=== PATIENT | female | born 1955 | race Caucasian/White ===

== ENCOUNTER 2020-03-02 06:45 | Outpatient (NON) | payer OTHER, SELFPAY ==
[2020-03-02 23:36] LABS: SARS-CoV-2 RNA PCR Positive
== END 2020-03-02 06:46 ==
PROVIDERS: PCP Family Medicine; Visit Provider Physician Assistant
DX: R09.81 Nasal congestion (principal); R05 Cough; R51.9 Headache, unspecified; U07.1 COVID-19
CPT/HCPCS: 87635; C9803; U0003

== ENCOUNTER → 2020-06-11 00:35 | Outpatient (CLI) | payer MEDICARE, SELFPAY ==
[2020-06-11 19:08] LABS: SARS-CoV-2 RNA PCR Negative
== END ==
PROVIDERS: PCP Family Medicine; Visit Provider Internal Medicine Gastroenterology
DX: Z01.812 Encounter for preprocedural laboratory examination (principal); Z20.822 Contact with and (suspected) exposure to COVID-19
CPT/HCPCS: C9803; U0003; U0005

== ENCOUNTER 2020-06-14 01:00 | Day surgery (SDC) | payer MEDICARE, SELFPAY ==
[2020-05-17 15:50] VITALS: BMI 31.0
--- NOTE | 2020-06-04 15:17 | PC.NURSE ---
PT CALLED WITH NEW DATE AND TIMES FOR PROCEDURE AND COVID TESTING, NO CHANGES IN MEDICATIONS OR HEALTH HISTORY SINCE 05/17/2020
--- NOTE | 2020-06-13 13:27 | WPDANESEPPF ---
Anes - Initial Pre Proc Eval Procedure: Operation Date: 06/14/20 09:00 Proposed Procedures p Esophagogastroduodenoscopy - Rodney Kinsey MD Date/Time: 06/13/20 13:27 Surgeon: Rodney Kinsey MD Pre Op Diagnosis: dysphagia Patient Data Age: 65 Gender: F Height: 1.63 m Weight: 82 kg Allergies Allergy/AdvReac Type Severity Reaction Status Date / Time codeine AdvReac Severe Gastrointestinal Verified 06/14/20 07:48 Upset oxycodone AdvReac Severe Nausea and Verified 06/14/20 07:48 Vomiting Home Medications Medication Instructions Recorded Confirmed Type fluticasone propionate 50 1 spray NASAL DAILY 05/30/19 06/14/20 History mcg/actuation nasal spray,suspension loratadine 10 mg tablet 10 mg PO DAILY 05/30/19 06/14/20 History lisinopril 20 1 tablet PO DAILY #90 tablet 07/05/19 06/14/20 Rx mg-hydrochlorothiazide 12.5 mg tablet pantoprazole 40 mg tablet,delayed 40 mg PO BID #90 tablet 04/18/20 06/14/20 Rx release venlafaxine 75 mg capsule,extended 75 mg PO DAILY #90 cap 04/23/20 06/14/20 Rx release 24 hr All Day Calcium 1 tab-cap PO DAILY 05/17/20 06/14/20 History Vitamin D3 1 tab-cap PO DAILY 05/17/20 06/14/20 History ascorbic acid (vitamin C) 1 tablet PO DAILY 05/17/20 06/14/20 History trazodone 50 mg PO QPM PRN 05/17/20 06/14/20 History Patient hx anesthesia problems: none Family hx anesthesia problems: none [facility] Past Medical History Medical History (Updated 06/13/20 @ 13:28 by Ronaldo Nance MD) Esophageal reflux Essential (primary) hypertension Generalized anxiety disorder Hiatal hernia Obesity (BMI 30.0-34.9) Palpitations Torn meniscus Surgical History Surgical History H/O section History of hysterectomy Family History Family History Mother Diabetes mellitus Depression Hypertension Family history of rheumatoid arthritis Family history of cardiovascular disease Family history of chronic obstructive pulmonary disease Family history of congestive heart failure Father Hypertension Cerebrovascular accident Family history of lung cancer Family history of kidney disease Family history of chronic obstructive pulmonary disease, Onset Age: 50 Family history of malignant neoplasm of kidney Sibling Diabetes mellitus Hypertension Family history of elevated blood lipids Social History Social History (Reviewed 04/18/20 @ 13:37 by Ronda Fields [facility]) Smoking packs per day: 1 Smoking cigarettes per day: 20.0 Years smoked: 6 Smoking pack-years: 6.00 Smoking status: Former smoker Tobacco type: cigarettes Alcohol intake: current Drinks per week: 2 Substance use: never Living arrangements: with family Spiritual care concerns: No Anes - Eval Final PreProcedure Day of Procedure 06/13/20 13:27 Patient weight: obese Heart: regular rate and rhythm Lungs: clear to auscultation and normal air movement Airway: Mallampati scale class II Neurological: alert and oriented Last oral intake: >/= 8 hours ASA classification: III Emergent: no Anesthetic plan: proceed Anesthesia type and monitoring: general GIVS Informed Consent: The patient's anesthetic plan and its attendant risks and benefits were discussed with the patient/family/POA. Questions were solicited and answers provided to the satisfaction of the patient/family/POA.
[2020-06-14 07:50] VITALS: BP 114/69; PULSE 71; RESP 17; TEMP 36.7; O2SAT 97; BMI 31.8
[2020-06-14] MEDS: LACTATED RINGERS 1,000 ML 150 ML IV CONT (08:03)
--- NOTE | 2020-06-14 08:56 | PM.HPGS ---
History of Present Illness History of Present Illness Consent: Risks, benefits, and alternatives have been discussed and questions answered. Patient agrees to proceed with procedure. Chief complaint: dysphagia Narrative: Hailee Tanner is a 65 year old female referred because of persistent vomiting. She denies actual hang up of food on swallowing but often will vomit or regurgitate what she has eaten shortly after meal. This happens sporadically. She also has a constant burning in the epigastric area that radiates through to the back. Increasing pantoprazole to 80 mg a day has not helped. Every few days she will have an episode of severe pain in the lower substernal area. It will last an hour or 2 and is sometimes relieved by taking an extra dose of pantoprazole. There has been no weight loss. An EGD was done 2 years ago that appears to have been normal except for a hiatal hernia but she was also told that an ulcer was found. [facility] Past Medical History Medical History Esophageal reflux Essential (primary) hypertension Generalized anxiety disorder Hiatal hernia Obesity (BMI 30.0-34.9) Palpitations Torn meniscus Surgical History Surgical History H/O section History of hysterectomy Family History Family History Mother Diabetes mellitus Depression Hypertension Family history of rheumatoid arthritis Family history of cardiovascular disease Family history of chronic obstructive pulmonary disease Family history of congestive heart failure Father Hypertension Cerebrovascular accident Family history of lung cancer Family history of kidney disease Family history of chronic obstructive pulmonary disease, Onset Age: 50 Family history of malignant neoplasm of kidney Sibling Diabetes mellitus Hypertension Family history of elevated blood lipids Social History Social History Smoking packs per day: 1 Smoking cigarettes per day: 20.0 Years smoked: 6 Smoking pack-years: 6.00 Smoking status: Former smoker Tobacco type: cigarettes Alcohol intake: current Drinks per week: 2 Substance use: never Living arrangements: with family Spiritual care concerns: No Meds Home Medications and Allergies Home Medications Medication Instructions Recorded Confirmed Type fluticasone propionate 50 1 spray NASAL DAILY 05/30/19 06/14/20 History mcg/actuation nasal spray,suspension loratadine 10 mg tablet 10 mg PO DAILY 05/30/19 06/14/20 History lisinopril 20 1 tablet PO DAILY #90 tablet 07/05/19 06/14/20 Rx mg-hydrochlorothiazide 12.5 mg tablet pantoprazole 40 mg tablet,delayed 40 mg PO BID #90 tablet 04/18/20 06/14/20 Rx release venlafaxine 75 mg capsule,extended 75 mg PO DAILY #90 cap 04/23/20 06/14/20 Rx release 24 hr All Day Calcium 1 tab-cap PO DAILY 05/17/20 06/14/20 History Vitamin D3 1 tab-cap PO DAILY 05/17/20 06/14/20 History ascorbic acid (vitamin C) 1 tablet PO DAILY 05/17/20 06/14/20 History trazodone 50 mg PO QPM PRN 05/17/20 06/14/20 History Allergies Allergy/AdvReac Type Severity Reaction Status Date / Time codeine AdvReac Severe Gastrointestinal Verified 06/14/20 07:48 Upset oxycodone AdvReac Severe Nausea and Verified 06/14/20 07:48 Vomiting Vital Signs Vital Signs - 24 hr 06/14/20 07:50 Temperature 36.7 C Pulse Rate 71 Respiratory Rate 17 Blood Pressure 114/69 Pulse Oximetry 97 Exam Const: General: alert Orientation/consciousness: patient oriented x3 Resp: Auscultation: clear to auscultation bilaterally Cardio: Rhythm: regular rhythm GI: GI Palp: Yes Soft to palpation and No Tenderness to palpation present (GI) Neuro: General: patient oriented x3 Assessment and Plan Assessment and plan (1) [place]
[2020-06-14 09:18] VITALS: BP 95/54; PULSE 63; RESP 18; O2SAT 100
[2020-06-14 09:28] VITALS: BP 87/57; PULSE 65; RESP 19; O2SAT 100
[2020-06-14 09:38] VITALS: BP 111/68; PULSE 63; RESP 15; O2SAT 100
== END 2020-06-14 09:45 | disposition home or self-care (01) ==
PROVIDERS: PCP Family Medicine; Visit Provider Internal Medicine Gastroenterology
PROC: 0DJ08ZZ Inspection of Upper Intestinal Tract, Via Natural or Artificial Opening Endoscopic (ICD-10-PCS; CPT 43235; principal; 2020-06-14 09:00)
DX: R13.10 Dysphagia, unspecified (principal); K21.9 Gastro-esophageal reflux disease without esophagitis; R11.10 Vomiting, unspecified; K44.9 Diaphragmatic hernia without obstruction or gangrene; I10 Essential (primary) hypertension; F41.1 Generalized anxiety disorder; R00.2 Palpitations; Z87.891 Personal history of nicotine dependence; E66.01 Morbid (severe) obesity due to excess calories; Z68.31 Body mass index [BMI] 31.0-31.9, adult
CPT/HCPCS: 43239; 88305; J2001; J2704; J7120

== ENCOUNTER 2020-09-18 10:40 | Emergency (ER) | payer MEDICARE, SELFPAY ==
--- NOTE | ~2020-09-18 | XR_ITS ---
EXAMINATION: XR tibia fibula RT 2V DATE: 09/18/2020 11:09 INDICATION: Right lower leg injury. TECHNIQUE: 2 views of right tibia and fibula were obtained. COMPARISON: None. FINDINGS: Bone alignment is normal. No fracture. There is mild knee joint osteoarthritis. There is a small loose body in the knee joint. There are enthesophytes at the posterior and plantar aspects of c alcaneal tuberosity. There is soft tissue swelling anterior to the tibial diaphysis. IMPRESSION: 1. No fracture. 2. Mild right knee osteoarthritis with loose body. Reviewed, dictated and finalized at location A.
[2020-09-18 10:48] VITALS: BP 126/77; PULSE 72; RESP 20; TEMP 37.4; O2SAT 99
--- NOTE | 2020-09-18 11:00 | ED.LOWEXIN ---
HPI - Extremity Injury (Lower) General Chief Complaint: Extremity Injury, Lower Stated Complaint: Right Leg hit by a Baseball/Leg Swollen Time Seen by Provider: 09/18/20 11:00 Source: patient and RN notes reviewed History of Present Illness HPI Narrative: Patient is a 65-year-old female who presents the urgent care with complaints of right falk pain radiating up to the right knee. Patient states that she was hit by a foul ball on Wednesday and immediately had a large orange sized knot to the right falk. Patient states that the swelling has gone down some but now she has increased in bruising and pain. Patient also reports of a history of orthoscopic right knee surgery. Denies of any history of blood clot/DVT and has not taken any blood thinners in the past. Patient states that the pain is constant but does exacerbate with ambulation. States that she is been using ice and ibuprofen. Also reports of some calf tenderness. No other acute complaints. Denies of any shortness of breath or chest pain. No acute distress noted. Patient aware of the plan of care. Some parts of this dictation were generated by voice recognition software and may contain typographical and/or grammatical inaccuracies. Related Data Home Medications Medication Instructions Recorded Confirmed fluticasone propionate 50 1 spray NASAL DAILY 05/30/19 08/16/20 mcg/actuation nasal spray,suspension loratadine 10 mg tablet 10 mg PO DAILY 05/30/19 09/18/20 All Day Calcium 1 tab-cap PO DAILY 05/17/20 08/16/20 Vitamin D3 1 tab-cap PO DAILY 05/17/20 09/18/20 ascorbic acid (vitamin C) 1 tablet PO DAILY 05/17/20 09/18/20 Allergies Allergy/AdvReac Type Severity Reaction Status Date / Time codeine AdvReac Severe Gastrointestinal Verified 09/18/20 10:55 Upset oxycodone AdvReac Severe Nausea and Verified 09/18/20 10:55 Vomiting Review of Systems Review of Systems: Narrative: CONSTITUTIONAL: Denies fever, chills, or sweats. EYES: Denies visual changes, redness, or discharge. ENT: Denies rhinorrhea, congestion, sore throat, or otalgia. CARDIOVASCULAR: Denies chest pain, palpitations, or edema. RESPIRATORY: Denies cough or dyspnea. GASTROINTESTINAL: Denies abdominal pain, nausea, vomiting, or diarrhea. GENITOURINARY: Denies dysuria or hematuria. SKIN: Denies rash or itching. MUSCULOSKELETAL: Reports of right falk bruising and swelling radiating to the right knee and foot NEUROLOGIC: Denies headache, numbness, or weakness. All other systems reviewed are negative, except as documented in HPI. [facility] Past Medical History Medical History Esophageal reflux Essential (primary) hypertension Generalized anxiety disorder Hiatal hernia Obesity (BMI 30.0-34.9) Palpitations Torn meniscus Surgical History Surgical History H/O section History of hysterectomy Family History Family History Mother Diabetes mellitus Depression Hypertension Family history of rheumatoid arthritis Family history of cardiovascular disease Family history of chronic obstructive pulmonary disease Family history of congestive heart failure Father Hypertension Cerebrovascular accident Family history of lung cancer Family history of kidney disease Family history of chronic obstructive pulmonary disease, Onset Age: 50 Family history of malignant neoplasm of kidney Sibling Diabetes mellitus Hypertension Family history of elevated blood lipids Social History Social History Smoking packs per day: 1 Smoking cigarettes per day: 20.0 Years smoked: 6 Smoking pack-years: 6.00 Tobacco type: cigarettes Alcohol intake: current Drinks per week: 2 Substance use: never Spiritual care concerns: No Comments At the time of my si
--- NOTE | 2020-09-18 11:37 | PC.NURSE ---
PT DECLINED ICE FOR COMFORT
== END 2020-09-18 11:49 | disposition home or self-care (01) ==
PROVIDERS: Emergency Provider Nurse Practitioner Family; PCP Family Medicine
DX: S80.11XA Contusion of right lower leg, initial encounter (principal); I10 Essential (primary) hypertension; K21.9 Gastro-esophageal reflux disease without esophagitis; E66.9 Obesity, unspecified; Z68.32 Body mass index [BMI] 32.0-32.9, adult; F17.200 Nicotine dependence, unspecified, uncomplicated; M17.11 Unilateral primary osteoarthritis, right knee; W21.03XA Struck by baseball, initial encounter; Y93.82 Activity, spectator at an event
CPT/HCPCS: 73590; 99213; G0463

== ENCOUNTER 2020-09-26 16:10 | Emergency (ER) | payer MEDICARE, SELFPAY ==
--- NOTE | ~2020-09-26 | US_ITS ---
EXAMINATION: US venous doppler LE RT DATE: 09/26/2020 17:13 INDICATION: Right lower limb pain TECHNIQUE: Grayscale ultrasound images without and with compression and Doppler ultrasound images of the right lower extremity veins were obtained. COMPARISON: None. FINDINGS: The visualized portions of right common femoral vein, profunda (deep) femoral vein, femoral vein, pop liteal vein, peroneal trunk, posterior tibial veins, peroneal veins, gastrocnemius vein and greater s aphenous vein outflow are patent. IMPRESSION: 1. No deep venous thrombosis in the right lower limb. Reviewed, dictated and finalized at location A.
[2020-09-26 16:30] VITALS: BP 164/101; PULSE 60; RESP 18; TEMP 36.9; O2SAT 98
--- NOTE | 2020-09-26 18:21 | ED.GENADULT ---
HPI - General Adult General Chief complaint: Extremity Injury, Lower Stated complaint: leg pain x 2 days/injury 1 week ago/swelling Time Seen by Provider: 09/26/20 16:37 Source: patient and RN notes reviewed Mode of arrival: ambulatory Limitations: no limitations History of Present Illness HPI narrative: Patient 65-year-old female who presents with right lower extremity pain. Patient was hit with a baseball in the falk 2 weeks ago developed a large hematoma with bruising spreading down into the foot now as pain that is increased has concern for DVT has not been seen for this complaint presents per private vehicle in no distress pain is localized to the region around the hematoma Related Data Home Medications Medication Instructions Recorded Confirmed fluticasone propionate 50 1 spray NASAL DAILY 05/30/19 08/16/20 mcg/actuation nasal spray,suspension loratadine 10 mg tablet 10 mg PO DAILY 05/30/19 09/18/20 All Day Calcium 1 tab-cap PO DAILY 05/17/20 08/16/20 Vitamin D3 1 tab-cap PO DAILY 05/17/20 09/18/20 ascorbic acid (vitamin C) 1 tablet PO DAILY 05/17/20 09/18/20 Allergies Allergy/AdvReac Type Severity Reaction Status Date / Time codeine AdvReac Severe Gastrointestinal Verified 09/26/20 16:33 Upset oxycodone AdvReac Severe Nausea and Verified 09/26/20 16:33 Vomiting Review of Systems Review of Systems: All systems reviewed & are unremarkable except as noted in HPI and below PMFSH Past Medical History Medical History Esophageal reflux Essential (primary) hypertension Generalized anxiety disorder Hiatal hernia Obesity (BMI 30.0-34.9) Palpitations Torn meniscus Surgical History Surgical History H/O section History of hysterectomy Family History Family History Mother Diabetes mellitus Depression Hypertension Family history of rheumatoid arthritis Family history of cardiovascular disease Family history of chronic obstructive pulmonary disease Family history of congestive heart failure Father Hypertension Cerebrovascular accident Family history of lung cancer Family history of kidney disease Family history of chronic obstructive pulmonary disease, Onset Age: 50 Family history of malignant neoplasm of kidney Sibling Diabetes mellitus Hypertension Family history of elevated blood lipids Social History Social History Smoking packs per day: 1 Smoking cigarettes per day: 20.0 Years smoked: 6 Smoking pack-years: 6.00 Tobacco type: cigarettes Alcohol intake: current Drinks per week: 2 Substance use: never Spiritual care concerns: No Exam Narrative: Exam Narrative: GENERAL: Well-appearing, well-nourished, and in no acute distress. HEAD: Normocephalic, atraumatic. EYES: PERRLA and EOMI. ENT: Nares clear, no rhinorrhea or epistaxis. Mucous membranes moist. CHEST: Clear to auscultation. No respiratory distress. No wheezes rales or rhonchi HEART: Regular rate and rhythm. No murmur heard. Normal peripheral pulses. EXTREMITIES: Normal range of motion. No edema. Resolving hematoma to the distal right falk no erythema warmth to touch bruising standing down into the ankle and foot SKIN: Warm, dry, no rash. NEURO: No focal deficits. Alert and oriented x3. Neurovascularly intact. Capillary refill less than 2 seconds PSYCH: Normal mood and affect. Course Course Emergency Course: Patient in the room in no distress aware of case findings treatment plan and diagnosis agreeing to follow-up as instructed given reasons to return felt appropriate for outpatient reevaluation made aware of her ultrasound findings Vital Signs Vital signs: Vital Signs Temperature 98.4 F 09/26/20 16:30 Pulse Rate 60 09/26/20 16:30 Respiratory Rate
== END 2020-09-26 18:33 | disposition home or self-care (01) ==
PROVIDERS: Emergency Provider Emergency Medicine; PCP Family Medicine
DX: M79.661 Pain in right lower leg (principal); K21.9 Gastro-esophageal reflux disease without esophagitis; I10 Essential (primary) hypertension; F17.210 Nicotine dependence, cigarettes, uncomplicated
CPT/HCPCS: 93971; 99284

== ENCOUNTER → 2021-01-06 09:50 | Outpatient (CLI) | payer MEDICARE, SELFPAY ==
--- NOTE | ~2021-01-06 | MR_ITS ---
EXAMINATION: MR cervical spine wo con EXAM DATE: 01/06/2021 11:01 INDICATION: R51.9 - Headache, unspecified, cervical radiculopathy, right arm pain. TECHNIQUE: Multi-sequential, multiplanar MR images of the cervical spine were obtained without contra st. Axial T2, axial T2 MERGE sequence. Sagittal T1, T2, T2 fat saturation images also obtained. Th ere is no prior study for comparison. FINDINGS: Upper thoracic spine was also imaged on the axial sequences and there is a large disc bulg e posteriorly with extrusion centrally with migration above and below, which along with some ligament um flavum hypertrophy is causing central canal narrowing to 3 mm, moderate to severe stenosis. There is faint T2 increased signal intensity in this location, appearance more consistent with chronic myel omalacia than edema. There is moderate disc disease C4-5 and 5-6. There is a hemangioma within the T7 vertebral body. The vertebral bodies are aligned in the AP dimension. Cervicomedullary junction is normal in appearance. Paraspinal soft tissue is unremarkable. Level by level evaluation: C2-C3: Disc does not extend beyond the endplate margin. Uncovertebral joint arthropathy: Mild bilateral. Facet joint arthropathy: Moderate bilateral. Neural foraminal stenosis: Mild right. Central canal stenosis: No stenosis. C3-C4: There is a minimal diffuse disc bulge. Uncovertebral joint arthropathy: Mild bilateral. Facet joint arthropathy: Severe left, moderate right. Neural foraminal stenosis: Moderate left, mild to moderate right. Central canal stenosis: No stenosis. C4-C5: There is a moderate diffuse disc bulge which is asymmetric to the right and bulging into the n eural foramina. This is also indenting the right anterior aspect of the spinal cord without edema. Uncovertebral joint arthropathy: Severe right, moderate left. Facet joint arthropathy: Moderate to severe bilateral. Neural foraminal stenosis: Severe right, moderate left. Central canal stenosis: Moderate . Central canal measures 6 mm in mid sagittal AP diameter . C5-C6: There is mild to moderate disc bulge asymmetric to the left. Uncovertebral joint arthropathy: Moderate bilateral. Facet joint arthropathy: Moderate to severe left, moderate right. Neural foraminal stenosis: Moderate to severe left. Central canal stenosis: Mild to moderate . Central canal measures 7 mm in mid sagittal AP diameter . C6-C7: There is a mild diffuse disc bulge. Uncovertebral joint arthropathy: Moderate bilateral, left greater than right. Facet joint arthropathy: Mild to moderate bilateral. Neural foraminal stenosis: Mild left. Central canal stenosis: No stenosis. C7-T1: Disc does not extend beyond the endplate margin. Uncovertebral joint arthropathy: Moderate bilateral. Facet joint arthropathy: Mild bilateral. Neural foraminal stenosis: Mild left. Central canal stenosis: No stenosis. IMPRESSION: 1. 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 2. C4-5 and C5-6 asymmetric disc bulges also indenting spinal cord, without signal change. 3. Severe right C4-5 neural foraminal stenosis. 4. Consider neurosurgical consult. Reviewed, dictated and finalized at location A. IMPRESSION: 1. 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 2. C4-5 and C5-6 asymmetric disc bulges also indenting spinal cord, without si gnal change. 3. Severe right C4-5 neural foraminal stenosis. 4. Consider neurosurgical consult.
--- NOTE | ~2021-01-06 | MR_ITS ---
EXAMINATION: MR brain/brain stem wo/w con EXAM DATE: 01/06/2021 11:01 INDICATION: R51.9 - Headache, unspecified headache . TECHNIQUE: Magnetic resonance imaging (MRI) of the brain/brain stem obtained without contrast. Sagit joel T1, axial diffusion, gradient echo (T2*), T1, T2, FLAIR sequences obtained. Patient was then inj ected with 15 cc intravenous Multihance contrast. Axial and coronal postcontrast T1 weighted sequence s obtained. Comparison is made to prior examination from 05/31/2017. FINDINGS: There are no areas of restricted diffusion to suggest acute infarction. There is no acute hemorrhage seen on the T2*, a hemosiderin sensitive sequence. No intraparenchymal brain mass lesion. There is minimal periventricular and subcortical T2/FLAIR signal hyperintensity, nonspecific but pro bably related to small vessel ischemic disease (microangiopathy). There are no extra-axial collecti ons. Flow voids are seen in the cerebral arteries on the T2-weighted sequences consistent with their expected patency. The orbits are unremarkable. Soft tissue is unremarkable. There are no areas of abnormal enhancement on the postcontrast images. Mild bilateral maxillary and ethmoid sinus mucoperi osteal thickening. No sinus air-fluid levels. IMPRESSION: 1. No acute intracranial findings. 2. Minimal microangiopathy. Reviewed, dictated and finalized at location A.
[2021-01-06 10:15] LABS: Estimated Glomerular Filt Rate 56
== END ==
PROVIDERS: Visit Provider Physician Assistant
DX: R51.9 Headache, unspecified (principal); M54.12 Radiculopathy, cervical region; M48.04 Spinal stenosis, thoracic region; M50.222 Other cervical disc displacement at C5-C6 level; M48.02 Spinal stenosis, cervical region
CPT/HCPCS: 70553; 72141; A9577

== ENCOUNTER → 2021-03-08 00:12 | Outpatient (CLI) | payer MEDICARE, SELFPAY ==
[2021-03-08 19:57] LABS: SARS-CoV-2 RNA PCR Negative
== END ==
PROVIDERS: PCP Family Medicine; Visit Provider Physician Assistant
DX: Z01.812 Encounter for preprocedural laboratory examination (principal); Z20.822 Contact with and (suspected) exposure to COVID-19
CPT/HCPCS: C9803; U0003; U0005

== ENCOUNTER 2021-09-10 10:20 | Inpatient (IN) | payer MEDICARE, SELFPAY ==
[2021-09-10] VITALS (19 sets, daily range): BP systolic 101–140; BP diastolic 61–83; PULSE 71–87; RESP 14–22; TEMP 36.1–36.7; O2SAT 98–100; BMI 33.1
--- NOTE | ~2021-09-10 | XR_ITS ---
XR chest 1V portable DATE: 09/10/2021 11:17 INDICATION: Dizziness. Fainting today. Syncope. TECHNIQUE: Portable upright AP views on 09/10/2021 at 1104 and 1105 hours COMPARISON: 11/15/2017 PA and lateral chest FINDINGS: Status post anterior lower cervical spine surgical fusion. Heart size is within normal limits. No hilar or mediastinal enlargement. No pulmonary infiltrate or c onsolidation, pleural effusion or pulmonary vascular congestion or pneumothorax. IMPRESSION: No active cardiopulmonary disease Reviewed, dictated and finalized at location A.
--- NOTE | ~2021-09-10 | CT_ITS ---
EXAMINATION: CT abdomen pelvis wo/w con DATE: 09/11/2021 09:45 INDICATION: Right hydronephrosis. Right flank pain. TECHNIQUE: Computed tomography (CT) of the abdomen and pelvis was performed without and with 130 cc O mnipaque 300 intravenous contrast. The dose-length product was 1660.62 mGy-cm. Automated exposure con trol and iterative reconstruction technique were employed. COMPARISON: CT dated 09/10/2021 FINDINGS: There is dependent atelectasis. No significant pleural or pericardial effusion. The liver, spleen, pancreas, adrenal glands are unremarkable. There are bilateral renal cysts. No solid enhancin g renal mass identified. Ureters are normal in course and caliber. No significant hydronephrosis. No stones or masses. Bladder is unremarkable. Normal appendix. Mild osteoarthritis of the hips. There is moderate-severe lumbar spondylosis with retrolisthesis at L 1-2 and L3-4. No significant vascular abnormality. No lymphadenopathy. IMPRESSION: 1. Subcentimeter bilateral renal cysts. No significant hydronephrosis. Reviewed, dictated and finalized at location A.
--- NOTE | ~2021-09-10 | CT_ITS ---
EXAMINATION: CT abdomen pelvis wo con DATE: 09/10/2021 13:30 INDICATION: Abdominal pain. Weakness. TECHNIQUE: Computed tomography (CT) of the abdomen and pelvis was performed without intravenous contr ast. Automated exposure control and iterative reconstruction technique were employed. The dose-length product was 976.13 mGy-cm. COMPARISON: None FINDINGS: Atelectasis/scarring at the bilateral lower lungs. Heart size is normal. No pericardial or pleural ef fusion. Liver, gallbladder, spleen, pancreas, bilateral adrenal glands and left kidney are normal. Mi ld right hydroureteronephrosis which extends to the ureterovesicular junction without evident obstruc ting stone or mass. Bladder is normal. The uterus is not identified and has likely been surgically re sected. Calcified appendicoliths within the normal-appearing appendix with no periappendiceal inflamm atory stranding to suggest acute appendicitis. Large amount of stool scattered throughout the colon. Small bowel is normal. No free intraperitoneal gas or fluid. No pathologically enlarged abdominal or pelvic lymphadenopathy. Moderate to severe lumbar and lower thoracic spondylosis. Moderate bilateral hip osteoarthritis. IMPRESSION: 1. Mild right hydroureteronephrosis extending to the ureterovesicular junction without evident obstru cting stone or mass. Correlate with urinalysis and could consider follow-up CT urogram for further ev aluation. Reviewed, dictated and finalized at location B. IMPRESSION: 1. Mild right hydroureteronephrosis extending to the ureterovesicular junction without evident obstructing stone or mass. Correlate with urinalysis and could consider follow-up CT urogram for further evaluation.
--- NOTE | ~2021-09-10 | MR_ITS ---
EXAMINATION: MR brain/brain stem wo con DATE: 09/11/2021 16:11 INDICATION: Syncope. TECHNIQUE: Magnetic resonance imaging (MRI) of the brain and brainstem was performed without intraven ous contrast. COMPARISON: Brain MRI 01/06/2021, head CT 09/10/2021 FINDINGS: There are scattered areas of nonspecific increased T2-weighted signal intensity in the cere bral white matter, which is within normal limits for the patient's age. There is no intracranial hemo rrhage, acute infarction, or abnormal intracranial mass lesion. The ventricles are normal in size. Th ere is mucosal thickening in the paranasal sinuses. The orbits are normal. The mastoid air cells are normal. IMPRESSION: 1. Normal aging brain. Reviewed, dictated and finalized at location A. IMPRESSION: 1. Normal aging brain.
--- NOTE | ~2021-09-10 | CT_ITS ---
EXAMINATION: CT brain wo con DATE: 09/10/2021 11:12 INDICATION: Syncopal episode. Weakness. TECHNIQUE: Computed tomography (CT) of the head was performed without intravenous contrast. The mA wa s adjusted according to patient size. Iterative reconstruction technique was employed. Exam dose: 60 5.33 mGy-cm total exam DLP. COMPARISON: 01/06/2021 MRI brain/brainstem FINDINGS: No intracranial mass lesion or hemorrhage or cerebrovascular accident. No midline shift or mass effect effect. Normal ventricular size. No subdural or epidural hematoma. Orbital contents are unremarkable. Prominent polypoid soft tissue opacities of the maxillary sinuses, right greater than left the parana gustabo sinuses and mastoid air cells are otherwise unremarkable. No fracture or bone destruction of the cranial vault. IMPRESSION: No significant intracranial abnormality Bilateral maxillary sinus polyps or mucous retention cysts Reviewed, dictated and finalized at Location A. Reviewed, dictated and finalized at location A.
--- NOTE | ~2021-09-10 | US_ITS ---
EXAMINATION: US carotid duplex BI DATE: 09/11/2021 12:12 INDICATION: Syncope TECHNIQUE: Grayscale, color Doppler, and pulsed Doppler images of the cervical carotid arteries were obtained. The degree of vessel stenosis is placed in one of the following categories: normal, <50%, 5 0-69%, >=70% but less than near-occlusion, near-occlusion, or total occlusion. Note that percent sten osis relative to normal distal artery lumen diameter is indirectly measured from velocity measurement s as described by Auugsto, et al. Radiology 2003; 229:340-346. Notes: Normal: Peak systolic velocity <125 centimeters/sec and no plaque <50%. Peak systolic velocity <125 ( EDV <40; ICA/CCA PSV ratio <2.0; used these factors only a tandem lesions or low cardiac output or co ntralateral disease) 50-69 %: PSV 125-230 (EDV 40-100; ratio 2-4) >= 70% but less than near occlusion: PSV greater than 230 (EDV > 100; ratio> 4.0) Near Occlusion: PSV that is variable; markedly narrowed lumen Occlusion: Absent flow on color/spectral Doppler and no lumen on salguero scale. COMPARISON: None. FINDINGS: RIGHT: The right common carotid artery (CCA) peak systolic velocity (PSV) is 69 cm/s. The right internal car otid artery (ICA) PSV is 62 cm/s. The right ICA end-diastolic velocity (EDV) is 22 cm/s. The right IC A/CCA PSV ratio is 0.9. The external carotid artery (ECA) PSV is 77 cm/s. There is antegrade flow in the right vertebral artery. LEFT: The left CCA PSV is 78 cm/s. The left ICA PSV is 92 cm/s. The left ICA EDV is 39 cm/s. The left ICA/C CA PSV ratio is 1.2. The ECA PSV is 79 cm/s. There is antegrade flow in the left vertebral artery. IMPRESSION: 1. Less than 50% stenosis in the right internal carotid artery by sonographic criteria. 2. Less than 50% stenosis in the left internal carotid artery by sonographic criteria. Reviewed, dictated and finalized at location A. IMPRESSION: 1. Less than 50% stenosis in the right internal carotid artery by sonographic christopher marshall. 2. Less than 50% stenosis in the left internal carotid artery by sonographic jessica wang.
--- NOTE | 2021-09-10 10:24 | ECG_ITS ---
Measurements Intervals [place] Rate: 81 P: 21 CT: 171 QRS: -12 QRSD: 92 T: -3 QT: 402 QTc: 469 Interpretive Statements SINUS RHYTHM WITH FREQUENT VENTRICULAR PREMATURE COMPLEXES POSSIBLE LEFT ATRIAL ENLARGEMENT [-0.1mV P WAVE IN V1/V2] LOW QRS VOLTAGE IN PRECORDIAL LEADS [QRS DEFLECTION < 1.0 mV IN CHEST LEADS] POSSIBLE LEFT VENTRICULAR HYPERTROPHY [VOLTAGE CRITERIA PLUS LAE OR QRS WIDENING] BORDERLINE ECG COMPARED TO ECG 11/22/2018 13:02:26 PREMATURE VENTRICULAR CONTRACTIONS ARE NOW PRESENT Electronically Signed On 09-10-2021 11:43:37 CDT by Gorge Hobbs M.D.
[2021-09-10 10:52] LABS: Hematocrit 38.9 % (37.0-47.0); Hemoglobin 12.6 g/dL (12.0-15.0); Immature Granulocyte Absolute 0.02 K/mm3 (0.00-0.031); Immature Granulocyte Percent A 0.4 % (0-0.5); Lymphocytes Absolute Auto 1.34 K/mm3 (0.9-3.2); Lymphocytes Percent Auto 28.8 % (18.3-44.2); Mean Corpuscular HGB Conc 32.4 g/dl (32-36); Mean Corpuscular Hemoglobin 29.3 pg (26-34); Mean Corpuscular Volume 90.5 fl (80-100); Mean Platelet Volume 10.2 fl (7.4-10.4); Monocytes Absolute Auto 0.4 K/mm3 (0.1-0.6); Monocytes Percent Auto 9.4 % (2.6-8.5); Neutrophils Absolute Auto 2.9 K/mm3 (1.3-6.7); Neutrophils Percent Auto 61.4 % (45.5-73.1); Platelet Count Result 187 k/mm3 (150-375); Red Cell Distribution Width 13.5 % (11.5-14.5); White Blood Count 4.7 K/mm3 (4.5-10.0)
[2021-09-10 11:11] LABS: Alanine Aminotransferase 18 U/L (6-35); Albumin Level 3.8 g/dL (3.5-5.1); Alkaline Phosphatase 98 U/L (38-126); Anion Gap 6 mmol/L (8-16); Aspartate Amino Transferase 26 U/L (14-36); Bilirubin,Total 0.6 mg/dL (0.2-1.3); Blood Urea Nitrogen 22 mg/dL (7-17); Calcium 8.9 mg/dL (8.4-10.2); Carbon Dioxide 27 mmol/L (22-30); Chloride 104 mmol/L (98-107); Estimated CRCL calculation 46 ml/min; Estimated Glomerular Filt Rate 50; Glucose 89 mg/dL (65-110); Potassium 3.8 mmol/L (3.4-5.0); Sodium 137 mmol/L (137-145)
[2021-09-10] MEDS: SODIUM CHLORIDE 0.9% IV 1,000 ML 999 ML IV CONT ×2 (11:20→12:54)
[2021-09-10 12:27] LABS: Add Urine Microscopic? NO; Appearance Urine Clear (Clear); Bilirubin Urine Negative (Negative); Blood Urine Negative (Negative); Color Urine Yellow (Yellow); Glucose Urine UA Negative (Negative); Ketones Urine Negative (Negative); Leukocyte Esterase Ur Negative LEU/UL (Negative); Nitrate Urine Negative (Negative); Protein Urine Negative (Negative); Urobilinogen Urine 0.2 mg/dL (<2.0); pH Urine 6.5 (5.0-9.0)
[2021-09-10 13:58] LABS: Troponin I < 0.012 ng/mL (0.000-0.034)
--- NOTE | 2021-09-10 14:36 | ED.GENADULT ---
HPI - General Adult General Chief complaint: Syncope Stated complaint: syncopal episode Time Seen by Provider: 09/10/21 10:50 Source: RN notes reviewed History of Present Illness HPI narrative: Patient presents emergency room from home for syncopal episode. Patient states has been feeling generally weak for the past 1 week. States that she has not been eating and drinking as well has been feeling generally more so fatigued she states she has chronic weakness in her bilateral lower legs from previous spinal cord injury. Patient states that this morning she was walking across floor and she had a syncopal episode. She states she is unsure how long she was out she denies having chest pain or shortness of breath prior to the episode. She denies any fevers or chills. She states that she has been having some intermittent abdominal pain described as cramping and has been feeling constipated Related Data Home Medications Medication Instructions Recorded Confirmed baclofen 10 mg tablet 10 mg PO TID 06/26/21 08/29/21 Allergies Allergy/AdvReac Type Severity Reaction Status Date / Time codeine AdvReac Severe Gastrointestinal Verified 12/19/20 13:38 Upset oxycodone AdvReac Severe Nausea and Verified 12/19/20 13:38 Vomiting Review of Systems Review of Systems: Gen.: Denies fevers or chills Eyes: Denies eye pain or visual change ENT: Denies congestion Respiratory: Denies shortness of breath or cough CV: Denies chest pain or palpitations reports syncope GI: Reports some generalized abdominal pain denies nausea vomiting or diarrhea denies burning, urgency, frequency or hematuria Musculoskeletal: Denies back pain or muscle pain Neuro: Denies numbness, tingling, weakness or focal weakness Skin: Denies rash Except as documented, all other systems reviewed and negative [facility] Past Medical History Medical History Esophageal reflux Essential (primary) hypertension Generalized anxiety disorder Hiatal hernia Obesity (BMI 30.0-34.9) Palpitations Torn meniscus Surgical History Surgical History H/O section History of hysterectomy Family History Family History Mother Diabetes mellitus Depression Hypertension Family history of rheumatoid arthritis Family history of cardiovascular disease Family history of chronic obstructive pulmonary disease Family history of congestive heart failure Father Hypertension Cerebrovascular accident Family history of lung cancer Family history of kidney disease Family history of chronic obstructive pulmonary disease, Onset Age: 50 Family history of malignant neoplasm of kidney Sibling Diabetes mellitus Hypertension Family history of elevated blood lipids Social History Social History Smoking packs per day: 1 Smoking cigarettes per day: 20.0 Years smoked: 6 Smoking pack-years: 6.00 Smoking status: Never smoker Tobacco type: cigarettes Alcohol intake: current Drinks per week: 2 Alcohol use details: beer Substance use: never Spiritual care concerns: No Exam Narrative: APPEARANCE: No acute distress, nontoxic, resting in bed EYES: EOMI HEENT: Normocephalic, atraumatic, OMM RESPIRATORY: No respiratory distress Clear to auscultation bilaterally with no rhonchi wheezing or rales. CARDIOVASCULAR: Regular rate and rhythm without murmur Abdomen: Soft nondistended diffusely tender palpation no rebound or guarding MUSCULOSKELETAl: Moves all extremities. No clubbing, cyanosis or edema. NEURO: Awake and alert. Following commands, speech normal, muscle strength 5 out of 5 in bilateral upper extremities and 4-5 in bilateral lower extremities SKIN:: Warm, dry. No rashes lesions or abrasions PSYCHIATRIC: Normal affect/mood, Co
[2021-09-10 14:42] LABS: INR 1.1; Prothrombin Time 13.6 Seconds (11.1-14.7)
[2021-09-10 14:43] LABS: Partial Thromboplastin Time 28.4 SECONDS (22.3-36.8)
--- NOTE | 2021-09-10 15:34 | PC.NURSE ---
called lab and spoke with rBet to add on/check on the MG -NC [id number]
[2021-09-10 16:01] LABS: Magnesium 2.4 mg/dL (1.6-2.3)
--- NOTE | 2021-09-10 17:00 | PM.IMHP ---
H&P: HPI History of Present Illness Date/Time: 09/10/21 17:00 Chief Complaint: Syncopal episode. Narrative: This is a pleasant 66-year-old female with history of incomplete spinal cord injury, hypertension, GERD, peptic ulcer disease, and anxiety who presented to the emergency department from home for evaluation after a syncopal episode. She had a 2 level anterior cervical diskectomy and fusion and posterior thoracic T2-3 laminectomy and diskectomy in March 2021. 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 She has done extensive rehab and she is now back living in her own home, ambulating with a walker. The past 5 days or so she thought she was coming down with a virus as she has been fatigued and chilled with generalized malaise. Her appetite has not been great and she has not been eating and drinking much. Her lower extremities also seemed to be weaker than usual as well. Intermittently she will have mild cramping in the lower abdominal area though at time she has spasms and neuropathy like pain in her trunk and thus she has a hard time telling if this is new or an ongoing issue. She does feel like she may be constipated though she uses enemas almost daily to have a bowel movement since her spinal cord injury. With further questioning she also mentions difficulties urinating though she does not have any problems with urinary retention to her knowledge. The last 2 evenings she has been symptomatic with high blood pressures, reporting diastolic readings as high as 120. This is unusual for her and she had previously been on fludrocortisone for hypotensive episodes while in rehab. This morning she got up to use the restroom and she was perhaps 3 steps away from the bed and the next thing she knew she was waking up on her back on the floor. She denies antecedent symptoms prior to the syncopal episode and she denies sustaining injury in the fall. She had positive orthostatic vital signs in the emergency department and she is being admitted in this setting. Currently she has no complaints and she specifically denies vertigo, chest pain, pleuritic pain, and palpitations. Review of Systems Review of Systems: 12 systems were reviewed. History of cluster headaches. No sick contacts. No sinus congestion or sore throat. She denies diarrhea. No dysuria. She does report issues with urinating, reporting that it takes her quite some time to start urinating and she has to concentrate really hard in order to urinate. No fever. No vomiting. Except as documented, all other systems were reviewed and are negative. [facility] Past Medical History Medical History (Updated 09/10/21 @ 20:02 by Darcy Clement PA-C) Brown-Sequard syndrome Chronic kidney disease, stage 3 Essential hypertension Gastroesophageal reflux disease Generalized anxiety disorder Hiatal hernia Incomplete cord syndrome of thoracic spinal cord Peptic ulcer Vitamin D deficiency, unspecified Surgical History Surgical History (Updated 09/10/21 @ 16:42 by Darcy Clement PA-C) History of 2 sections History of arthroscopy of right knee History of hysterectomy Meniscal repair. History of spinal surgery (03/13/21) Anterior C4-C5 and C5-C6 decompression with diskectomy and removal of osteophyte. Anterior C4-C5 C6 fusion with cadaver spacers. T2-T3 laminectomy. Family History Family History Mother Diabetes mellitus Depression Hypertension Family history of rheumatoid arthritis Family history of cardiovascular disease Family history of chronic obstructive pulmonary disease Family history of congestive heart failure Father Hypertension Cerebrovascular accident Family history of lung cancer Family history of kidney disease Family history of chronic obstructive pulmonary
--- NOTE | 2021-09-10 17:15 | ADMGEN ---
This patient, Hailee Tanner, was admitted to [address] [facility] Surg Room 309-01 at 1710. Patient/family oriented to hospital policies and general routines including ID bracelet, bed and alarms, visiting hours, pain management, procedures, bathroom and other care routines, personal items, smoking policy, room service/diet, and visiting hours. Information on how to activate the Rapid Response Team has been discussed. Patient/Family are encouraged to report perceived risks to care and to ask questions if they do not understand what they are told or what they should do.
[2021-09-10] MEDS: SODIUM CHLORIDE 0.9% IV 1,000 ML 80 ML IV CONT (17:30)
[2021-09-10 18:19] LABS: Troponin I < 0.012 ng/mL (0.000-0.034)
[2021-09-10 21:33] LABS: Troponin I < 0.012 ng/mL (0.000-0.034)
[2021-09-10] MEDS: traZODone HCL 50 MG TABLET PO (23:05)
[2021-09-10] MEDS: GABAPENTIN 100 MG CAPSULE 200 MG PO (23:05)
[2021-09-10] MEDS: BACLOFEN 10 MG TABLET PO (23:05)
[2021-09-11] VITALS (10 sets, daily range): BP systolic 79–126; BP diastolic 40–69; PULSE 60–94; RESP 16–18; TEMP 36.3–36.6; O2SAT 94–99
[2021-09-11] MEDS: SODIUM CHLORIDE 0.9% IV 1,000 ML 80 ML IV CONT ×2 (05:37→20:28)
[2021-09-11 06:44] LABS: Hematocrit 35.9 % (37.0-47.0); Hemoglobin 11.6 g/dL (12.0-15.0); Immature Granulocyte Absolute 0.01 K/mm3 (0.00-0.031); Immature Granulocyte Percent A 0.3 % (0-0.5); Lymphocytes Absolute Auto 1.32 K/mm3 (0.9-3.2); Lymphocytes Percent Auto 37.9 % (18.3-44.2); Mean Corpuscular HGB Conc 32.3 g/dl (32-36); Mean Corpuscular Hemoglobin 29.4 pg (26-34); Mean Corpuscular Volume 91.1 fl (80-100); Mean Platelet Volume 10.4 fl (7.4-10.4); Monocytes Absolute Auto 0.3 K/mm3 (0.1-0.6); Monocytes Percent Auto 9.2 % (2.6-8.5); Neutrophils Absolute Auto 1.8 K/mm3 (1.3-6.7); Neutrophils Percent Auto 52.6 % (45.5-73.1); Platelet Count Result 153 k/mm3 (150-375); Red Blood Count 3.94 M/mm3 (4.2-5.4); Red Cell Distribution Width 13.2 % (11.5-14.5); White Blood Count 3.5 K/mm3 (4.5-10.0)
--- NOTE | 2021-09-11 07:20 | WPDURCON ---
Assessment and Plan Assessment and plan (1) Hydroureteronephrosis: Code(s): N13.30 - Unspecified hydronephrosis Status: Acute Assessment and Plan: Very scant right ureterectasis without david hydronephrosis. There is no identifying obstructing stone or ureteral mucosal thickening to explain the scant ureterectasis. I wonder if she possibly recently passed ureteral calculus. Will get a CT urogram for further evaluation. Urology Consult Note HPI Date Seen: 09/11/21 Requesting Physician: Debra Bravo MD Primary Care Provider: Huang Alonso MD Consult Narrative Narrative: Hailee Tanner is a 66 year old female with a very complicated neurological/ neural surgical his history following a cervical spinal cord neurological procedure March 2022 that left her with a partial paralysis. She is admitted here with a syncopal episode. It has been noted that her ongoing thoracic and abdominal spasms may be extending longer than expected following her procedure in March, prompting a CT scan of the abdomen and pelvis. This reveals very scant ureterectasis with mild dilatation of the right ureter at the ureterovesical junction. There is no identifiable stone or thickening of the ureteral mucosa on this unenhanced CT scan. She has no prior history of urolithiasis or other significant urological problems. She has no sensation of abdominal or flank pain but reports she has diminished sensation over her trunk. She has had no hematuria or problems with recurrent urinary tract infections. 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 History of spinal surgery (03/13/21) Anterior C4-C5 and C5-C6 decompression with diskectomy and removal of osteophyte. Anterior C4-C5 C6 fusion with cadaver spacers. T2-T3 laminectomy. Family History Family History Mother Diabetes mellitus Depression Hypertension Family history of rheumatoid arthritis Family history of cardiovascular disease Family history of chronic obstructive pulmonary disease Family history of congestive heart failure Father Hypertension Cerebrovascular accident Family history of lung cancer Family history of kidney disease Family history of chronic obstructive pulmonary disease, Onset Age: 50 Family history of malignant neoplasm of kidney Sibling Diabetes mellitus Hypertension Family history of elevated blood lipids Social History Social History Social History: Surrogate decision maker: Brenda Escalona, daughter. Code status: Full code. 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
[2021-09-11 07:33] LABS: Anion Gap 3 mmol/L (8-16); Blood Urea Nitrogen 14 mg/dL (7-17); Calcium 8.1 mg/dL (8.4-10.2); Carbon Dioxide 25 mmol/L (22-30); Chloride 111 mmol/L (98-107); Estimated CRCL calculation 56 ml/min; Estimated Glomerular Filt Rate > 60; Glucose 89 mg/dL (65-110); Magnesium 2.2 mg/dL (1.6-2.3); Potassium 3.8 mmol/L (3.4-5.0); Sodium 139 mmol/L (137-145)
[2021-09-11] MEDS: GABAPENTIN 100 MG CAPSULE 200 MG PO ×3 (09:04→17:21)
[2021-09-11] MEDS: BACLOFEN 10 MG TABLET PO ×3 (09:04→17:21)
[2021-09-11] MEDS: PANTOPRAZOLE 40 MG TABLET PO (09:04)
--- NOTE | 2021-09-11 09:10 | PC.NURSE ---
to CT scan
--- NOTE | 2021-09-11 14:22 | PM.IMPN ---
Progress Note: A&P Assessment and Plan (1) Syncope: Code(s): R55 - Syncope and collapse Status: Acute Assessment and Plan: -suspect this is related to her orthostatic hypotension which has been an ongoing issue since her spinal cord injury -Monitor on telemetry to rule out cardiac dysrhythmia, may need a holter monitor on discharge with hx of palpitations. Consider cardiology consult. -Echo w/ normal systolic function 55-60%, grade I diastolic dysfunction -Carotid doppler bilateral negative -CT head no acute findings -check MRI brain (2) Orthostatic hypotension: Code(s): I95.1 - Orthostatic hypotension Status: Acute Assessment and Plan: -Likely related to autonomic dysfunction from her spinal cord injury. -Discussed dangling at the side of the bed before standing. -Monitor orthostatic vital signs; consider Aroldo hose or abdominal binder. -Previously on fludrocortisone which was discontinued due to supine hypertension. (3) Chronic kidney disease, stage 3: Code(s): N18.30 - Chronic kidney disease, stage 3 unspecified Status: Acute Assessment and Plan: -Creatinine is stable on review of previous labs. (4) Hydroureteronephrosis: Code(s): N13.30 - Unspecified hydronephrosis Status: Acute Assessment and Plan: -CT shows mild right hydroureteronephrosis extending to the UV junction without evident stone or mass. -Urology consulted, CT urogram pending Subjective Date/time seen: 09/11/21 14:22 Interval history: 66-year-old female with history of incomplete spinal cord injury, hypertension, GERD, peptic ulcer disease, and anxiety, admitted after a syncopal episode. Pt is feeling tired today. She has not had any further syncopal episodes. She reports intermittent fluttering in her chest while at rest and chest heaviness with ambulation. She states this has been going on for approximately 1 week. She denies N/V/abd pain. No LE edema. Review of Systems Review of Systems: All systems reviewed & are unremarkable except as noted in HPI and below Exam Narrative: General: well-developed female supine in bed. Weight: 84.9 kg. BMI: 33.2. HEENT: Normocephalic, atraumatic. PERRL, EOMI. Sclerae anicteric. Oral mucosa moist. Neck: Supple. Respiratory: Lungs are clear to auscultation bilaterally. Cardiovascular: Regular rate and rhythm with S1-S2. Gastrointestinal: Soft, non tender, non distended, no rebound or guarding Skin: Warm and dry. No rash or lesions on limited exam. Extremities: No cyanosis, clubbing, or edema. Radial and pedal pulses intact. Neurological: Alert. Cranial nerves 2-12 are grossly intact. Lower extremity weakness, left greater than right. Psychiatric: Pleasant and cooperative with normal mood and affect. Judgment and insight intact. Objective Data Vital Signs Vital Signs: Vital Signs - 24 hr 09/10/21 17:39 09/10/21 20:00 09/10/21 21:37 Temperature 97.0 F L Pulse Rate 79 Respiratory Rate 18 Blood Pressure 112/75 Pulse Oximetry 99 100 Oxygen Delivery Room Air Room Air 09/10/21 20:00 09/11/21 00:00 09/11/21 03:16 Temperature 97.6 F Pulse Rate 85 79 76 Respiratory Rate 16 Blood Pressure 126/54 L Pulse Oximetry 99 Oxygen Delivery 09/11/21 04:00 09/11/21 08:00 09/11/21 11:41 Temperature Pulse Rate 74 70 Respiratory Rate Blood Pressure Pulse Oximetry Oxygen Delivery Room Air 09/11/21 12:00 Temperature Pulse Rate 60 Respiratory Rate Blood Pressure Pulse Oximetry Oxygen Delivery Intake/Output Intake/Output: Intake & Output 09/08/21 09/09/21 09/10/21 09/11/21 23:59 23:59 23:59 23:59 Intake Total 19990 Output Total 450 500 Balance 1550 1310 Meds/Results Medications: Active Medications Generic Name Dose Route Start Last Admin Trade Name Freq PRN Reason Stop Dose Admin Baclofen 10 mg
--- NOTE | 2021-09-11 15:34 | PC.NURSE ---
to mri per w/c
--- NOTE | 2021-09-11 20:07 | ECHO_ITS ---
Patient Info Name: Hailee Tanner Age: 66 years : 1955 Gender: Female Ht: 63 in Wt: 187 lbs BSA: 1.98 m2 HR: 71 bpm BP: 126 / 54 mmHg Technical Quality: Good Exam Date: 09/11/2021 11:18 AM Exam Location: [facility]monary Patient Status: Outpatient Admit Date: 09/10/2021 Staff Ordering Physician: Darcy Clement PA-C Grinder Set Up Operator Gear Tool: Jerry Cabrera RDCS, RT Attending Provider: Debra Bravo MD Referring Physician: Racquel SHERMAN; Exam Type: CA echo doppler color flow Study Info Indications I10 - Essential (primary) hypertension R55 - Syncope and collapse Complete two-dimensional, color flow and Doppler transthoracic echocardiogram is performed. Summary 1. Complete two-dimensional, color flow and Doppler transthoracic echocardiogram is performed. 2. Left ventricular chamber dimension is normal. 3. Left ventricular systolic function is normal, estimated at 55-60%. 4. The left ventricular diastolic function is grade I diastolic dysfunction. 5. E/e' 11 is mildly elevated. 6. There is mild mitral valve regurgitation. 7. No pulmonary hypertension, estimated pulmonary arterial systolic pressure is 33 mmHg. Left Ventricle E/e' 11 is mildly elevated. Left ventricular chamber dimension is normal. Left ventricular systolic function is normal, estimated at 55-60%. The left ventricular diastolic function is grade I diastolic dysfunction. Right Ventricle Right ventricular systolic function is normal and with normal TAPSE 2.3 cm. Right ventricular chamber dimension is normal. Left Atria Left atrial chamber dimension is normal. Right Atria Right atrial chamber dimension is normal. Aortic Valve The aortic valve is trileaflet. There is no aortic valve stenosis. There is no aortic valve regurgitation. Pulmonic Valve There is no pulmonic regurgitation. Mitral Valve There is no mitral valve stenosis. There is mild mitral valve regurgitation. Tricuspid Valve There is no tricuspid valve regurgitation. No pulmonary hypertension, estimated pulmonary arterial systolic pressure is 33 mmHg. Pericardium/Pleural There is no pericardial effusion. Inferior Vena Cava Normal inferior vena cava with >50% collapse upon inspiration consistent with normal right atrial pressure, 5 mmHg. Aorta The aortic root size at the sinus of Valsalva is normal. Left Ventricular Outflow Tract Name Value Normal LVOT 2D LVOT Diameter 2.0 cm LVOT Doppler LVOT Peak Gradient 3 mmHg LVOT Mean Gradient 2 mmHg LVOT VTI 20 cm LVOT VTI/AV VTI Ratio 0.8 LVOT Stroke Volume 62 ml LVOT CO 4.5 l/min LVOT CI 2.3 l/min/m2 Mitral Valve Name Value Normal MV Doppler
[2021-09-11] MEDS: BACLOFEN 10 MG TABLET 20 MG PO (20:29)
[2021-09-11] MEDS: traZODone HCL 50 MG TABLET PO (20:30)
[2021-09-11] MEDS: polyethylene glycoL 3350 17 GM POWD.PACK PO (20:40)
[2021-09-12] VITALS (13 sets, daily range): BP systolic 88–135; BP diastolic 45–79; PULSE 63–83; RESP 14–18; TEMP 35.8–36.4; O2SAT 96–100
[2021-09-12] MEDS: GABAPENTIN 100 MG CAPSULE 200 MG PO ×3 (06:30→21:24)
[2021-09-12 06:41] LABS: Hematocrit 36.3 % (37.0-47.0); Hemoglobin 11.7 g/dL (12.0-15.0); Immature Granulocyte Absolute 0.01 K/mm3 (0.00-0.031); Immature Granulocyte Percent A 0.3 % (0-0.5); Lymphocytes Absolute Auto 1.27 K/mm3 (0.9-3.2); Lymphocytes Percent Auto 36.9 % (18.3-44.2); Mean Corpuscular HGB Conc 32.2 g/dl (32-36); Mean Corpuscular Hemoglobin 29.3 pg (26-34); Mean Corpuscular Volume 90.8 fl (80-100); Mean Platelet Volume 10.4 fl (7.4-10.4); Monocytes Absolute Auto 0.4 K/mm3 (0.1-0.6); Monocytes Percent Auto 11.3 % (2.6-8.5); Neutrophils Absolute Auto 1.8 K/mm3 (1.3-6.7); Neutrophils Percent Auto 51.5 % (45.5-73.1); Platelet Count Result 157 k/mm3 (150-375); Red Cell Distribution Width 13.4 % (11.5-14.5); White Blood Count 3.4 K/mm3 (4.5-10.0)
[2021-09-12 06:47] LABS: Anion Gap 3 mmol/L (8-16); Blood Urea Nitrogen 14 mg/dL (7-17); Calcium 8.3 mg/dL (8.4-10.2); Carbon Dioxide 26 mmol/L (22-30); Chloride 109 mmol/L (98-107); Estimated CRCL calculation 51 ml/min; Estimated Glomerular Filt Rate 55; Glucose 96 mg/dL (65-110); Potassium 4.1 mmol/L (3.4-5.0); Sodium 138 mmol/L (137-145)
--- NOTE | 2021-09-12 07:46 | WPDUROPN2 ---
Progress Note: A&P Assessment and Plan (1) Hydroureteronephrosis: Code(s): N13.30 - Unspecified hydronephrosis Status: Acute Assessment and Plan: Follow-up CT urogram was perfectly normal, showing no hydronephrosis or ureteral obstruction. I suspect patient may have passed a small ureteral calculus that accounted for the scant hydronephrosis seen on the prior CT. No further intervention planned at this time. Subjective Subjective Date/Time Seen: 09/12/21 07:46 Comfortable, no c/o abdominal pain Review of Systems Cardiovascular: Cardiovascular: Denies chest pain, Denies lightheadedness, Denies palpitations and Denies dyspnea Respiratory: Respiratory: Denies dyspnea Gastrointestinal: Gastrointestinal: Denies diarrhea, Denies nausea and Denies vomiting Genitourinary: Genitourinary: Denies hematuria and Denies dysuria Endocrine: Endocrine: Denies palpitations Exam Const: General: no acute distress Resp: Effort & Inspection: normal respiratory effort GI: Inspection: non-distended GI Palp: No abdominal tenderness and No Guarding due to palpation present (GI) Auscultation: normal bowel sounds Objective Data Vital Signs Vital Signs: Vital Signs - 24 hr 09/11/21 08:00 09/11/21 11:41 09/11/21 12:00 Temperature Pulse Rate 70 60 Respiratory Rate Blood Pressure Pulse Oximetry Oxygen Delivery Room Air 09/11/21 14:00 09/11/21 20:00 09/11/21 20:30 Temperature 97.9 F Pulse Rate 75 74 Respiratory Rate 16 Blood Pressure 111/69 Pulse Oximetry 96 Oxygen Delivery Room Air 09/11/21 20:00 09/11/21 20:05 09/11/21 21:55 Temperature 97.4 F L Pulse Rate 75 87 94 Respiratory Rate 18 18 18 Blood Pressure 115/64 106/55 L 115/64 Pulse Oximetry 97 99 97 Oxygen Delivery 09/11/21 20:10 09/12/21 00:00 09/12/21 04:50 Temperature 97.1 F L Pulse Rate 94 71 68 Respiratory Rate 18 16 Blood Pressure 79/40 L 121/75 Pulse Oximetry 94 97 Oxygen Delivery 09/12/21 04:00 Temperature Pulse Rate 64 Respiratory Rate Blood Pressure Pulse Oximetry Oxygen Delivery Intake/Output Intake/Output: Intake & Output 09/09/21 09/10/21 09/11/2122 23:59 23:59 23:59 23:59 Intake Total 1999 3670 300 Output Total 450 2700 800 Balance 1550 970 -500 Meds/Results Medications: Active Medications Generic Name Dose Route Start Last Admin Trade Name Caleq PRN Reason Stop Dose Admin Baclofen 10 mg 09/10/21 22:50 09/11/21 17:21 Baclofen 10 Mg Tablet PO 10 mg TID YAJAIRA Administration Baclofen 20 mg 09/11/21 21:00 09/11/21 20:29 Baclofen 10 Mg Tablet PO 20 mg HS YAJAIRA Administration Gabapentin 200 mg 09/12/21 06:00 09/12/21 06:30 Gabapentin 100 Mg Capsule PO 200 mg Q8HR YAJAIRA Administration Pantoprazole Sodium 40 mg 09/11/21 09:00 09/11/21 09:04 Pantoprazole 40 Mg Tablet PO 40 mg QAM YAJAIRA Administration Perflutren Lipid Microsphere 0 ml 09/10/21 20:07 Perflutren Lipid Microspheres 1.5 Ml Vial Diluted To 10 Ml Total Volume IV PUSH ONCE PRN adequate visualization Protocol Polyethylene Glycol 17 gm 09/10/21 22:48 09/11/21 20:40 Polyethylene Glycol 3350 17 Gm Powd.Pack PO 17 gm DAILY PRN Administration constipation Trazodone HCl 50 mg 09/10/21 22:50 09/11/21 20:30 Trazodone Hcl 50 Mg Tablet PO 50 mg HS YAJAIRA Administration Radiology Results: ITS Impressions Head CT 09/10/21 11:13 IMPRESSION: No significant intracranial abnormality Bilateral maxillary sinus polyps or mucous retention cysts Chest X-Ray 09/10/21 11:18 IMPRESSION: No active cardiopulmonary disease Abdomen/Pelvis CT 09/11/21 10:21 IMPRESSION: 1. Subcentimeter bilateral renal cysts. No significant hydronephrosis. Carotid Doppler Study 09/11/21 12:16 IMPRESSION: 1. Less than 50% stenosis in the right internal carotid artery by sonographic criteria. 2. Les
[2021-09-12] MEDS: BACLOFEN 10 MG TABLET PO ×3 (09:17→16:45)
[2021-09-12] MEDS: PANTOPRAZOLE 40 MG TABLET PO (09:17)
[2021-09-12] MEDS: polyethylene glycoL 3350 17 GM POWD.PACK PO (09:21)
--- NOTE | 2021-09-12 10:17 | PM.IMPN ---
Progress Note: A&P Assessment and Plan (1) Syncope: Code(s): R55 - Syncope and collapse Status: Acute Assessment and Plan: -suspect this is related to her orthostatic hypotension which has been an ongoing issue since her spinal cord injury -Monitor on telemetry to rule out cardiac dysrhythmia, may need a holter monitor on discharge with hx of palpitations. Having frequent PVCs, consulted cardiology for further recommendations. -Echo w/ normal systolic function 55-60%, grade I diastolic dysfunction -Carotid doppler bilateral negative -CT head no acute findings -MRI brain normal (2) Orthostatic hypotension: Code(s): I95.1 - Orthostatic hypotension Status: Acute Assessment and Plan: -Likely related to autonomic dysfunction from her spinal cord injury. -Discussed dangling at the side of the bed before standing. -Monitor orthostatic vital signs. -Previously on fludrocortisone which was discontinued due to supine hypertension. (3) Chronic kidney disease, stage 3: Code(s): N18.30 - Chronic kidney disease, stage 3 unspecified Status: Acute Assessment and Plan: -Creatinine is stable on review of previous labs. (4) Hydroureteronephrosis: Code(s): N13.30 - Unspecified hydronephrosis Status: Acute Assessment and Plan: -CT shows mild right hydroureteronephrosis extending to the UV junction without evident stone or mass. -Urology consulted, CT urogram normal, no further intervention required Subjective Date/time seen: 09/12/21 10:17 Interval history: 66-year-old female with history of incomplete spinal cord injury, hypertension, GERD, peptic ulcer disease, and anxiety, admitted after a syncopal episode. Pt reports abdominal tightness and constipation, last BM was 6 days ago. Some mild nausea, no vomiting. Still having fluttering in her chest. No chest pain today. No sob. No further syncopal episodes. Review of Systems Review of Systems: All systems reviewed & are unremarkable except as noted in HPI and below Exam Narrative: General: well-developed female supine in bed. Weight: 84.9 kg. BMI: 33.2. HEENT: Normocephalic, atraumatic. PERRL, EOMI. Sclerae anicteric. Oral mucosa moist. Neck: Supple. Respiratory: Lungs are clear to auscultation bilaterally. Cardiovascular: Regular rate and rhythm with S1-S2. Gastrointestinal: Soft, non tender, non distended, no rebound or guarding Skin: Warm and dry. No rash or lesions on limited exam. Extremities: No cyanosis, clubbing, or edema. Radial and pedal pulses intact. Neurological: Alert. Cranial nerves 2-12 are grossly intact. Lower extremity weakness, left greater than right. Psychiatric: Pleasant and cooperative with normal mood and affect. Judgment and insight intact. Objective Data Vital Signs Vital Signs: Vital Signs - 24 hr 09/11/21 11:41 09/11/21 12:00 09/11/21 14:00 Temperature 97.9 F Pulse Rate 60 75 Respiratory Rate 16 Blood Pressure 111/69 Pulse Oximetry 96 Oxygen Delivery Room Air 09/11/21 20:00 09/11/21 20:30 09/11/21 20:00 Temperature 97.4 F L Pulse Rate 74 75 Respiratory Rate 18 Blood Pressure 115/64 Pulse Oximetry 97 Oxygen Delivery Room Air 09/11/21 20:05 09/11/21 21:55 09/11/21 20:10 Temperature Pulse Rate 87 94 94 Respiratory Rate 18 18 18 Blood Pressure 106/55 L 115/64 79/40 L Pulse Oximetry 99 97 94 Oxygen Delivery 09/12/21 00:00 09/12/21 04:50 09/12/21 04:00 Temperature 97.1 F L Pulse Rate 71 68 64 Respiratory Rate 16 Blood Pressure 121/75 Pulse Oximetry 97 Oxygen Delivery Intake/Output Intake/Output: Intake & Output 09/09/21 09/10/21 09/11/21 09/12/21 23:59 23:59 23:59 23:59 Intake Total 1999 3670 540 Output Total 753 5280 800 Balance 1550 970 -260 Meds/Results Medications: Active Medications Generic Name Dose Route Start Last Admin
--- NOTE | 2021-09-12 15:16 | PM.CNCAR ---
Assessment and Plan Assessment and plan (1) Syncope: Code(s): R55 - Syncope and collapse Status: Acute Assessment and Plan: most likely secondary to orthostatic hypotension albeit without prodrome symptoms on this occasion. No evidence for arrhythmic contribution. No sustained or nonsustained VT, prolonged pauses or high-grade AV blocks. Clinically, her history is highly suggestive of intravascular volume depletion / dehydration with a to a viral illness with decreased oral intake, isolated diuretic use prior to her illness and improvement with IV fluids. If her well known history of orthostatic hypertension stemming from her surgery and documentation this hospitalization I feel she does not have an alternative discrete cardiac explanation for her presentation. We discussed this options and concerns in this regard for as yet undiagnosed tachy or bradyarrhythmia. Discussed and offered 30 day ekg monitor for further evaluation. Patient states she is not willing to forego aqua therapy and lose the progress she has made. As such 30 day monitor will not be compatible with her therapy plans and the fact that she has been monitored for several days thus far without concerning arrhythmia anticipate this will be low yield. Discussed resuming fludrocortisone although she would prefer to avoid and if orthostasis has improved and she remains asymptomatic in this regard given her history prior to admission I do not feel this to be necessary. However, should she develop recurrent symptoms of orthostasis and or syncope felt to be related to orthostatic hypotension I would recommend resuming fludrocortisone low-dose with close observation of blood pressure due to risk for supine hypertension. As discussed, she will follow-up with her primary care physician as outpatient for further management in this regard must otherwise directed. I offered follow-up in our office given her difficulties with getting to visits and therapy she preferred to follow with her PCP and less recommended she return to . Given the lack of clear cardiac pathology I felt this was reasonable. MRI, carotid, echocardiogram unremarkable. (2) Orthostatic hypotension: Code(s): I95.1 - Orthostatic hypotension Status: Acute Assessment and Plan: As above. Continue to follow orthostatic vital signs. Disposition per hospitalist service. (3) Premature ventricular contractions: Code(s): I49.3 - Ventricular premature depolarization Status: Acute Assessment and Plan: Noted, symptomatic no sustained or nonsustained VT. her PVCs are not contributing to her presentation at this time. I would not recommend directed treatment as this will only increase likelihood of symptomatic orthostatic hypotension. 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 She must continue therapy as directed ambulate with extreme caution to avoid risk for falls and injuries. History of Present Illness History of Present Illness Consult date/time: Date of service:09/12/21 15:16 Cardiology consultation at the request of Carolina Barrientos of the [facility] service for opinion regarding syncope and PVCs. 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 She had been making good strides with improving strength able to walk with a walker living independently prior to admission. Patient states over the preceding week she was feeling weak,
[2021-09-12] MEDS: BISACODYL 10 MG SUPPOSITORY RECTAL (17:58)
[2021-09-12] MEDS: traZODone HCL 50 MG TABLET PO (21:24)
[2021-09-12] MEDS: BACLOFEN 10 MG TABLET 20 MG PO (21:25)
[2021-09-13] VITALS (7 sets, daily range): BP systolic 92–124; BP diastolic 64–73; PULSE 65–90; RESP 18; TEMP 36.1; O2SAT 96
[2021-09-13 06:07] LABS: Hematocrit 37.2 % (37.0-47.0); Hemoglobin 12.3 g/dL (12.0-15.0); Immature Granulocyte Absolute 0.01 K/mm3 (0.00-0.031); Immature Granulocyte Percent A 0.3 % (0-0.5); Lymphocytes Absolute Auto 1.61 K/mm3 (0.9-3.2); Lymphocytes Percent Auto 42.1 % (18.3-44.2); Mean Corpuscular HGB Conc 33.1 g/dl (32-36); Mean Corpuscular Hemoglobin 29.7 pg (26-34); Mean Corpuscular Volume 89.9 fl (80-100); Mean Platelet Volume 10.3 fl (7.4-10.4); Monocytes Absolute Auto 0.4 K/mm3 (0.1-0.6); Monocytes Percent Auto 9.9 % (2.6-8.5); Neutrophils Absolute Auto 1.8 K/mm3 (1.3-6.7); Neutrophils Percent Auto 47.7 % (45.5-73.1); Platelet Count Result 157 k/mm3 (150-375); Red Blood Count 4.14 M/mm3 (4.2-5.4); Red Cell Distribution Width 13.4 % (11.5-14.5); White Blood Count 3.8 K/mm3 (4.5-10.0)
[2021-09-13 06:21] LABS: Anion Gap 6 mmol/L (8-16); Blood Urea Nitrogen 16 mg/dL (7-17); Calcium 8.8 mg/dL (8.4-10.2); Carbon Dioxide 23 mmol/L (22-30); Chloride 110 mmol/L (98-107); Estimated CRCL calculation 51 ml/min; Estimated Glomerular Filt Rate 55; Glucose 95 mg/dL (65-110); Potassium 3.9 mmol/L (3.4-5.0); Sodium 139 mmol/L (137-145)
[2021-09-13] MEDS: GABAPENTIN 100 MG CAPSULE 200 MG PO (06:21)
[2021-09-13] MEDS: BACLOFEN 10 MG TABLET PO (08:58)
[2021-09-13] MEDS: PANTOPRAZOLE 40 MG TABLET PO (08:58)
--- NOTE | 2021-09-13 10:17 | PM.DS ---
DS: Admitting Diagnosis Discharge Date 09/13/21 Admitting Diagnosis syncope DS: Discharge Diagnosis Discharge Diagnosis (1) Syncope: Code(s): R55 - Syncope and collapse Status: Acute Assessment and Plan: -suspect this is related to her orthostatic hypotension which has been an ongoing issue since her spinal cord injury -Monitored on telemetry, no arrhythmias -Having frequent PVCs, consulted cardiology for further recommendations. After long discussion they have decided to forego the holter monitor as it would impede her aquatherapy. -Echo w/ normal systolic function 55-60%, grade I diastolic dysfunction -Carotid doppler bilateral negative -CT head no acute findings -MRI brain normal (2) Orthostatic hypotension: Code(s): I95.1 - Orthostatic hypotension Status: Acute Assessment and Plan: -Likely related to autonomic dysfunction from her spinal cord injury. -Discussed dangling at the side of the bed before standing. -Previously on fludrocortisone which was discontinued due to supine hypertension. -Seen by cardiology who discussed options for restarting fludrocortisone in the future with close observation. Pt will discuss with her pcp if this continues to be an issue. (3) Chronic kidney disease, stage 3: Code(s): N18.30 - Chronic kidney disease, stage 3 unspecified Status: Acute Assessment and Plan: -Creatinine is stable on review of previous labs. (4) Hydroureteronephrosis: Code(s): N13.30 - Unspecified hydronephrosis Status: Acute Assessment and Plan: -CT shows mild right hydroureteronephrosis extending to the UV junction without evident stone or mass. -Urology consulted, CT urogram normal, no further intervention required DS: Summary Hospital Course Reason for hospitalization: 66-year-old female with history of incomplete spinal cord injury, hypertension, GERD, peptic ulcer disease, and anxiety, admitted after a syncopal episode. Please see HPI for further details. Hospital Course: Please see above for details of hospital course. Status at Discharge Cognitive/behavioral status at discharge: stable Functional status at discharge: uses cane/walker Time Spent with Patient Time attestation: Total time spent providing and/or coordinating discharge services: 35 Time spent: Greater than 30 minutes Exam Narrative: General: well-developed female supine in bed. Weight: 84.9 kg. BMI: 33.2. HEENT: Normocephalic, atraumatic. PERRL, EOMI. Sclerae anicteric. Oral mucosa moist. Neck: Supple. Respiratory: Lungs are clear to auscultation bilaterally. Cardiovascular: Regular rate and rhythm with S1-S2. Gastrointestinal: Soft, non tender, non distended, no rebound or guarding Skin: Warm and dry. No rash or lesions on limited exam. Extremities: No cyanosis, clubbing, or edema. Radial and pedal pulses intact. Neurological: Alert. Cranial nerves 2-12 are grossly intact. Lower extremity weakness, left greater than right. Psychiatric: Pleasant and cooperative with normal mood and affect. Judgment and insight intact. DS: Data Data Completed and Pending Labs on day of discharge: Labs from last 24 hours 09/13/21 09/13/21 05:33 05:33 WBC 3.8 L RBC 4.14 L Hgb 12.3 Hct 37.2 MCV 89.9 MCH 29.7 MCHC 33.1 RDW 13.4 Plt Count 157 MPV 10.3 Immature Gran % (Auto) 0.3 Neut % (Auto) 47.7 Lymph % (Auto) 42.1 Hardin % (Auto) 9.9 H Eos % (Auto) 0.0 Baso % (Auto) 0.0 L Lymph # (Auto) 1.61 Hardin # (Auto) 0.4 Eos # (Auto) 0.0 Baso # (Auto) 0.0 Abs Immat Gran (auto) 0.01 Absolute Neuts (auto) 1.8 Absolute Nucleated RBC 0.0 Nucleated RBC % 0.0 Sodium 139 Potassium 3.9 Chloride 110 H Carbon Dioxide 23 Anion Gap 6 L BUN 16 Creatinine 1.00 Estim Creat Clear Calc 51 Estimated GFR 55 L Glucose 95 Calcium 8.8 Discharge Plan Discharg
== END 2021-09-13 12:52 | disposition home or self-care (01) | DRG 312 ==
LOC: ANHED 14:53 → ANH3MEDSUR 16:18
PROVIDERS: Physician Assistant; Admitting Provider Hospitalist; Emergency Provider Emergency Medicine; PCP Family Medicine; Visit Provider Internal Medicine
DX: I95.1 Orthostatic hypotension (principal); N13.30 Unspecified hydronephrosis; N18.30 Chronic kidney disease, stage 3 unspecified; I12.9 Hypertensive chronic kidney disease with stage 1 through stage 4 chronic kidney disease, or unspecified chronic kidney disease; K21.9 Gastro-esophageal reflux disease without esophagitis; E55.9 Vitamin D deficiency, unspecified; Z83.3 Family history of diabetes mellitus; F41.1 Generalized anxiety disorder; Z79.899 Other long term (current) drug therapy; Z82.3 Family history of stroke; F45.8 Other somatoform disorders; S24.15 Other incomplete lesions of thoracic spinal cord; Z80.1 Family history of malignant neoplasm of trachea, bronchus and lung; Z84.1 Family history of disorders of kidney and ureter; Z87.891 Personal history of nicotine dependence
CPT/HCPCS: 36415; 51701; 70450; 70551; 71045; 74176; 74178; 80048; 80053; 81003; 83735; 84484; 85025; 85610; 85730; 93005; 93306; 93880; 96360; 96361; 97161; 97165; 97530; 97535; 99285; A9270; G0378; J7030; Q9967

== ENCOUNTER → 2022-08-27 14:59 | Outpatient (CLI) | payer MEDICARE, SELFPAY ==
--- NOTE | ~2022-08-27 | US_ITS ---
EXAMINATION:US venous doppler LE BI INDICATION:Localized swelling of the lower extremities TECHNIQUE: Multiple grayscale, color flow and Doppler images of the right and left lower extremity de ep venous systems were obtained and reviewed. COMPARISON:No prior studies for comparison. FINDINGS: The common femoral, superficial femoral and popliteal veins demonstrate normal respiratory variation, augmentation and compressibility. Color flow is also seen within the posterior tibial, pe roneal, greater saphenous and profunda veins. IMPRESSION: 1: No lower extremity deep venous thrombosis. Reviewed, dictated and finalized at location L.
== END ==
PROVIDERS: PCP Family Medicine
DX: R22.43 Localized swelling, mass and lump, lower limb, bilateral (principal)
CPT/HCPCS: 93970

== ENCOUNTER → 2023-04-30 12:36 | Outpatient (CLI) | payer MEDICARE, SELFPAY ==
--- NOTE | ~2023-04-30 | MR_ITS ---
EXAMINATION: MR knee RT wo con DATE: 04/30/2023 14:11 INDICATION: Right leg numbness and weakness. TECHNIQUE: Magnetic resonance imaging (MRI) of the right knee was performed without intravenous contr ast. Sequences included coronal PD-weighted FSE, coronal PD-weighted FS FSE, sagittal T2-weighted FS E, sagittal PD-weighted FS FSE and axial PD weighted fat saturated FSE. COMPARISON: None. FINDINGS: Medial compartment: The posterior horn and particularly the body of the medial meniscus are now small suggesting sequela of interval partial meniscectomy. Small focus of increased signal along the inner free edge of the po sterior horn of the medial meniscus best appreciated on the coronal images which could represent a re current small radial tear. There is extensive partial thickness cartilage loss along the all but the posterior most weightbearing medial femoral condyle in place appearing to involve greater than 50% th e cartilage thickness but with relatively smooth chondral surface and without degenerative subchondra l changes. Additional mild partial-thickness cartilage loss with smooth chondral surface along the me dial tibial plateau. Lateral compartment: Lateral meniscus is normal. Articular cartilage is normal. Patellofemoral compartment: There is deep chondral ulceration and fissuring with irregular cartilage surface at the patellar apic al ridge and lateral aspect of the medial facet. No degenerative subchondral changes. Additional jose re partial thickness chondral ulceration and fissuring at the caudal aspect of the trochlear groove a nd inferolateral aspect of the medial trochlea, the latter with subtle underlying cortical irregulari ty. Ligaments and tendons: Anterior and posterior cruciate ligaments are normal. The medial collateral ligament and fibular karen ateral ligament complex are normal. Small enthesophytes and mild tendinopathy at the distal quadricep s tendon. Patellar tendon is normal. The visualized medial and lateral hamstring tendons as well as t he iliotibial band are normal. Fluid: Physiologic amount of fluid in the joint space. No loose osteochondral bodies identified. Osseous/other: Normal marrow signal. No fracture or pathologic marrow replacing process. IMPRESSION: 1. Interval partial meniscectomy involving the posterior horn and more prominently the body of the me dial meniscus with small radial tear along the inner free edge of the remaining posterior horn. 2. 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 3. Minimal change in mild patellofemoral osteoarthritis with regions of moderate to high-grade chondr omalacia. Reviewed, dictated and finalized at location A. INUOUS IMPROVEMENT CONSULTANT IMPRESSION: 1. Interval partial meniscectomy involving the posterior horn and more prominen tly the body of the medial meniscus with small radial tear along the inner free edge of the remaining posterior horn. 2. Interval progression of mild to moderate osteoarthritis in medial compartmen t with extensive moderate grade chondromalacia along the weightbearing medial f emoral condyle. 3. Minimal change in mild patellofemoral osteoarthritis with regions of moderat e to high-grade chondromalacia.
--- NOTE | ~2023-04-30 | MR_ITS ---
EXAMINATION: MR cervical spine wo con DATE: 04/30/2023 14:11 INDICATION: Right leg numbness TECHNIQUE: Magnetic resonance imaging (MRI) of the cervical spine was performed without intravenous c ontrast. Sequences included sagittal T2-weighted FSE, sagittal T2-weighted FS FSE, sagittal T1-weight ed FSE, axial MERGE and axial T2-weighted FSE. COMPARISON: 01/06/2021 FINDINGS: Interval C4-C6 anterior spinal fusion with anterior plate and screw fixation. One-2 mm retrolisthesis C3 on C4. There is a mild upper thoracic levocurvature. Unfused vertebral body heights are normal. T 1 hyperintense hemangioma at T1. Bone marrow signal intensity is otherwise normal. Moderate disc heig ht loss at C6-C7 and T2-T3 through T4-T5 and mild at C4-C5 and T1-T2. 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 There has been interval T2 laminectomy for posterior decompress ion with decrease in the previously moderate to severe central canal stenosis to currently mild to mo derate central canal stenosis at this level with central canal diameter increasing from 4 mm AP in th e mid sagittal plane to 7 mm AP in the mid sagittal plane. Again seen is focal associated myelomalaci a with small region of localized decreased cross-sectional diameter of the cord and increased T2 sign al. Cord signal intensity is otherwise normal. The following disc levels are specifically discussed: C2-C3: The disc does not extend beyond the endplate margin. There is mild bilateral uncovertebral robina nt osteoarthritis. There is moderate bilateral facet joint osteoarthritis. There is mild right neural foraminal stenosis. There is no central canal stenosis. C3-C4: Mild disc bulge. There is mild left and moderate right uncovertebral joint osteoarthritis. The re is severe bilateral facet joint osteoarthritis. There is moderate left and mild to moderate right neural foraminal stenosis. There is mild central canal stenosis. C4-C5: Interval anterior fusion procedure. There is mild bilateral facet joint osteoarthritis. There is mild right and mild to moderate left neural foraminal stenosis. There is mild central canal stenos is. C5-C6: Interval anterior fusion procedure with prominent left paracentral to foraminal zone hypertrop hic osteophytes. There is mild bilateral facet joint osteoarthritis. There is mild right and moderate left neural foraminal stenosis. There is mild central canal stenosis with mild indentation of the le ft ventral surface of the cord. C6-C7: Mild diffuse disc bulge. There is mild right and moderate left uncovertebral joint osteoarthri tis. There is moderate bilateral facet joint osteoarthritis. There is mild left neural foraminal sten osis. There is no central canal stenosis. C7-T1: The disc does not extend beyond the endplate margin. There is mild right and moderate left unc overtebral joint osteoarthritis. There is mild bilateral facet joint osteoarthritis. There is mild le ft neural foraminal stenosis. There is no central canal stenosis. T1-T2: Very small bilateral paracentral disc protrusions. There is mild right and moderate left facet osteoarthritis. There is mild bilateral neural foraminal stenosis. T2-T3: Large central posterior disc osteophyte complex which indents the ventral surface of the cord. Interval posterior decompression with T2 laminectomy. There is mild right and moderate left facet os teoarthritis. Mild right and moderate left neural foraminal stenosis. There is mild to moderate centr al canal stenosis. T3-T4: Disc is mildly bulging. There is moderate right and mild left facet osteoarthritis. There is m oderate bilateral neural foraminal stenosis. There is mild central canal stenosis. IMPRESSION: 1. Minimal progression of moderate cervical spondylosis with interval C4-C6 anterior spinal fusion. Iris thompsoneas
== END ==
DX: M47.14 Other spondylosis with myelopathy, thoracic region (principal); M47.22 Other spondylosis with radiculopathy, cervical region; M17.11 Unilateral primary osteoarthritis, right knee; M94.261 Chondromalacia, right knee; S83.241A Other tear of medial meniscus, current injury, right knee, initial encounter; X58.XXXA Exposure to other specified factors, initial encounter
CPT/HCPCS: 72141; 73721

== ENCOUNTER 2023-08-11 15:04 | Emergency (ER) | payer MEDICARE, SELFPAY ==
--- NOTE | ~2023-08-11 | CT_ITS ---
EXAMINATION: CT brain wo con DATE: 08/11/2023 15:23 INDICATION: Headache. Vision change. TECHNIQUE: Computed tomography (CT) of the head was performed without intravenous contrast. The mA wa s adjusted according to patient size. Iterative reconstruction technique was employed. The dose-lengt h product was 605.33 mGy-cm. COMPARISON: Head CT 09/10/2021 FINDINGS: There is no intracranial hemorrhage, acute infarction, or abnormal intracranial mass lesion . The ventricles are normal in size. The orbits are normal. There is mild mucosal thickening in the p aranasal sinuses. The mastoid air cells are normal. IMPRESSION: 1. Normal brain. Reviewed, dictated and finalized at location A. IMPRESSION: 1. Normal brain.
[2023-08-11 15:07] VITALS: BP 156/77; PULSE 77; RESP 18; TEMP 36.7; O2SAT 98
[2023-08-11] MEDS: MORPHINE SULFATE (*CRX) 4 MG/ML INJ IV PUSH (16:26)
[2023-08-11] MEDS: PROCHLORPERAZINE EDISYLATE 10 MG/2 ML VIAL 5 MG IV PUSH (16:26)
[2023-08-11] MEDS: KETOROLAC 15 MG/ML VIAL (*BKC) IV PUSH (16:26)
[2023-08-11] MEDS: SODIUM CHLORIDE 0.9% IV 1,000 ML 999 ML IV CONT (16:27)
[2023-08-11 16:29] LABS: Basophils Percent Auto 0.2 % (0.2-1.2); Eosinophils Percent Auto 0.2 % (0-4.4); Hematocrit 40.1 % (37.0-47.0); Hemoglobin 12.5 g/dL (12.0-15.0); Immature Granulocyte Absolute 0.03 K/mm3 (0.00-0.031); Immature Granulocyte Percent A 0.5 % (0-0.5); Lymphocytes Absolute Auto 1.73 K/mm3 (0.9-3.2); Lymphocytes Percent Auto 30.5 % (18.3-44.2); Mean Corpuscular HGB Conc 31.2 g/dl (32-36); Mean Corpuscular Volume 96.4 fl (80-100); Mean Platelet Volume 10.3 fl (7.4-10.4); Monocytes Absolute Auto 0.5 K/mm3 (0.1-0.6); Monocytes Percent Auto 8.8 % (2.6-8.5); Neutrophils Absolute Auto 3.4 K/mm3 (1.3-6.7); Neutrophils Percent Auto 59.8 % (45.5-73.1); Platelet Count Result 199 k/mm3 (150-375); Red Blood Count 4.16 M/mm3 (4.2-5.4); Red Cell Distribution Width 14.1 % (11.5-14.5); White Blood Count 5.7 K/mm3 (4.5-10.0)
[2023-08-11 16:43] LABS: Alanine Aminotransferase 72 U/L (6-35); Albumin Level 4.2 g/dL (3.5-5.1); Alkaline Phosphatase 94 U/L (38-126); Anion Gap 4 mmol/L (4-12); Aspartate Amino Transferase 44 U/L (14-36); Bilirubin,Total 0.5 mg/dL (0.2-1.3); Blood Urea Nitrogen 31 mg/dL (7-17); CRP < 0.5 mg/dL (<1.0); Calcium 9.3 mg/dL (8.4-10.2); Carbon Dioxide 26 mmol/L (22-30); Chloride 111 mmol/L (98-107); Estimated CRCL calculation 68 ml/min; Estimated Glomerular Filt Rate > 60; Glucose 91 mg/dL (65-110); Sodium 141 mmol/L (137-145)
--- NOTE | 2023-08-11 17:07 | ED.HA ---
HPI - Headache General Chief Complaint: Headache Stated Complaint: headaches, vision changes Time Seen by Provider: 08/11/23 15:21 Source: patient and family Mode of arrival: wheelchair History of Present Illness HPI Narrative: 68-year-old with a history of incomplete cord of the thoracic spine, CKD stage 3, hyperlipidemia, here with the complaints of headache for past 10 days. Patient was seen earlier at Dr. Zavala's office was later referred here to the ER patient denies any fall. Patient states that headache is mostly in the frontal area. Worried about meningitis. She denies any other complaint MD elicited complaint: headache Onset (ago): day(s) (10) Onset description: gradually Location: frontal Severity: moderate Quality & Timing: aching Exacerbating factors: none Relieving factors: nothing Associated symptoms: none Related Data Home Medications Medication Instructions Recorded Confirmed cranberry concentrate-ascorbic 1 cap PO DAILY 09/11/21 02/12/22 acid 4,200 mg-20 mg capsule magnesium 500 mg tablet 500 mg PO DAILY 09/11/21 02/12/22 [id number] 1 tablet PO DAILY 09/11/21 02/12/22 18 mg-10 mg-45 mg-5 mg-250 mg tablet (B Complex w-Vit C) cholecalciferol (vitamin D3) 50 50 mcg PO DAILY 10/02/21 02/12/22 mcg (2,000 unit) capsule baclofen 20 mg tablet 60 mg PO DAILY 02/05/22 02/12/22 gabapentin 100 mg capsule 300 mg PO TID 02/05/22 02/12/22 Allergies Allergy/AdvReac Type Severity Reaction Status Date / Time codeine AdvReac Severe Gastrointestinal Verified 08/11/23 15:12 Upset oxycodone AdvReac Severe Nausea and Verified 08/11/23 15:12 Vomiting Review of Systems Review of Systems: All systems reviewed & are unremarkable except as noted in HPI and below Constitutional: Constitutional: Reports no additional constitutional complaints Eyes: Eyes: Reports no additional eye complaints ENT: Reports system reviewed and no additional complaints, except as documented Cardiovascular: Cardiovascular: Reports no additional cardiovascular complaints Respiratory: Respiratory: Reports no additional respiratory complaints Gastrointestinal: Gastrointestinal: Reports no additional gastrointestinal complaints Musculoskeletal: Musculoskeletal: Reports no additional musculoskeletal complaints Neurologic: Reports as per HPI Psychiatric: Psychiatric: Reports no additional psychiatric complaints PMFSH Past Medical History Medical History Brown-Sequard syndrome Chronic kidney disease, stage 3 Essential hypertension Gastroesophageal reflux disease Generalized anxiety disorder Hiatal hernia 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 History of spinal surgery (03/13/21) Anterior C4-C5 and C5-C6 decompression with diskectomy and removal of osteophyte. Anterior C4-C5 C6 fusion with cadaver spacers. T2-T3 laminectomy. Family History Family History Mother Diabetes mellitus Depression Hypertension Family history of rheumatoid arthritis Family history of cardiovascular disease Family history of chronic obstructive pulmonary disease Family history of congestive heart failure Father Hypertension Cerebrovascular accident Family history of lung cancer Family history of kidney disease Family history of chronic obstructive pulmonary disease, Onset Age: 50 Family history of malignant neoplasm of kidney Sibling Diabetes mellitus Hypertension Family history of elevated blood lipids Social History Social History Social History: Surrogate decision maker: Abhi
[2023-08-11 17:29] VITALS: BP 145/78; PULSE 67; RESP 16; O2SAT 99
== END 2023-08-11 17:30 | disposition home or self-care (01) ==
PROVIDERS: Emergency Provider Family Medicine; PCP Family Medicine
DX: R51.9 Headache, unspecified (principal); I12.9 Hypertensive chronic kidney disease with stage 1 through stage 4 chronic kidney disease, or unspecified chronic kidney disease; N18.30 Chronic kidney disease, stage 3 unspecified; G83.81 Brown-Sequard syndrome; E55.9 Vitamin D deficiency, unspecified; K21.9 Gastro-esophageal reflux disease without esophagitis; K44.9 Diaphragmatic hernia without obstruction or gangrene; Z98.1 Arthrodesis status; Z87.11 Personal history of peptic ulcer disease; Z87.891 Personal history of nicotine dependence; Z90.710 Acquired absence of both cervix and uterus
CPT/HCPCS: 36415; 70450; 80053; 85025; 86140; 96361; 96374; 96375; 99284; J0780; J1885; J2270; J7030

== ENCOUNTER 2024-01-06 12:43 | Outpatient (CLI) | payer MEDICARE, SELFPAY ==
--- NOTE | ~2024-01-06 | DEXA_ITS ---
Bone Density Report Name: VICK SIEGEL Age: 68 Sex: Female Ethnicity: White Date of : 1955 Indication: postmenopausal; screening for osteoporosis; height loss; history of glucocorticoids; Referring Provider: NENO, PETTY Herman Study: Bone densitometry was performed. Exam Date: January 06, 2024 Accession number: [id number] Bone Density: Region BMD T-score Z-score Classification AP Spine(L1-L4) 1.187 1.3 3.3 Normal Femoral Neck (Left) 0.671 -1.6 0.1 Osteopenia Total Hip (Left) 0.806 -1.1 0.3 Osteopenia Femoral Neck (Right) 0.759 -0.8 0.9 Normal Total Hip (Right) 0.973 0.3 1.7 Normal Total Hip Mean 0.890 -0.4 1.0 Normal World Health Organization criteria for BMD impression classify patients as: Normal (T-score at or above -1.0), Osteopenia (T-score between -1.0 and -2.5), or Osteoporosis (T-score at or below -2.5). 10-year Fracture Risk(1): Major Osteoporotic Fracture 14% Hip Fracture 2.1% Reported Risk Factors: [place] (), Neck BMD=0.671, BMI=39.4, glucocorticoids (1) FRAX(R) Version 3.08. Fracture probability calculated for an untreated patient. Fracture probability may be lower if the patient has received treatment. Clinical Information Provided by Patient: Has taken Glucocorticoids Has used the following medications: Vitamin D, Calcium Patient maximum height was 64 Menopause Age: 28 Onset of menses at age 12 Number of children 2 Impression: The patient has low bone mass, based on the Left Femoral Neck T-score. The patient has an estimated ten-year risk of hip fracture of 2.1% and an estimated ten-year risk of major fracture of 14%, based on the WHO FRAX algorithm. The patient has risk factors, including: history of glucocorticoid therapy. Discussion: BONE DENSITY IS LOW AT ONE OR MORE SKELETAL SITES. This patient's lowest T-score is low at one or more skeletal sites. It meets the World Health Organization's (WHO) criteria for ?low bone mass? (T-score between -1.0 and -2.5). The patient's 10-year risk of fracture as calculated by FRAX is less than the threshold where pharmacological therapy is recommended by the National Osteoporosis Foundation (NOF). However, all treatment decisions require clinical judgment and consideration of individual patient factors, including patient preferences, comorbidities, previous drug use, risk factors not captured in the FRAX model (e.g., frailty, falls, vitamin D deficiency, increased bone turnover, interval significant decline in bone density) and possible under or overestimation of fracture risk by FRAX. The patient should follow a healthful lifestyle (good nutrition with adequate calcium and vitamin D, and appropriate weight-bearing exercise). Follow-Up: Consider repeating this study in 2 to 3 years to reasses
== END 2024-01-06 12:44 | disposition home or self-care (01) ==
PROVIDERS: PCP Family Medicine; Visit Provider Family Medicine
DX: M85.89 Other specified disorders of bone density and structure, multiple sites (principal); Z13.820 Encounter for screening for osteoporosis; Z78.0 Asymptomatic menopausal state
CPT/HCPCS: 77080

== ENCOUNTER 2024-04-06 07:40 | Outpatient (CLI) | payer MEDICARE, SELFPAY ==
--- NOTE | ~2024-04-06 | CT_ITS ---
EXAMINATION: CT thoracic lumbar wo con DATE: 04/06/2024 08:42 INDICATION: Thoracolumbar spondylosis with radiculopathy. TECHNIQUE: Computed tomography (CT) of the thoracic and lumbar spine was performed without intravenou s contrast. Automated exposure control and iterative reconstruction technique were employed. The dose -length product was 2139.18 mGy-cm. COMPARISON: None FINDINGS: CT THORACIC SPINE: Cardiomegaly is noted. There is 7 degrees dextrocurvature of upper thoracic spine and 5 degrees levocurvature of lower thoracic spine. Vertebral body heights are normal. There is mild ly decreased disc height at T1-T2 and severely decreased disc height from T2-T3 through T10-T11. Ther e are bridging endplate osteophytes at T2-T3. There are changes of spinous process resection at T2. T here is a large calcified central extrusion at T2-T3 with moderate central canal stenosis with icu rn ior decompression. There are calcified left central extrusions from T5-T6 through T8-T9 with mild jun tral canal stenosis. There is multilevel severe facet joint osteoarthritis. There is mild neural fora anthony stenosis at multiple levels on either side. On the right, there is moderate neural frontal sten osis at T3-T4 and T9-T10. On the left, there is moderate neural frontal stenosis at T2-T3 and T8-T9. CT LUMBAR SPINE: There is 14 degrees dextroscoliosis of thoracic lumbar spine. There is 3 mm retrolis thesis of L1 on L2, L2 on L3, and L3 on L4. Vertebral body heights are normal. There is severely decr eased disc height at L1-L2, moderately decreased disc at L2-L3, and severely decreased disc height at L3-L4. The following disc levels are specifically discussed: L1-L2: The disc is bulging. There is severe bilateral facet joint osteoarthritis. There is mild right and severe left neural foraminal stenosis. There is mild central canal stenosis. L2-L3: The disc is bulging. There is moderate bilateral facet joint osteoarthritis. There is mild debra ateral neural foraminal stenosis. There is mild central canal stenosis. L3-L4: The disc is bulging. There is severe right and moderate left facet joint osteoarthritis. There is moderate right and mild left neural foraminal stenosis. There is mild central canal stenosis. L4-L5: The disc is bulging. There is severe bilateral facet joint osteoarthritis. There is mild bilat eral neural foraminal stenosis. There is mild central canal stenosis. L5-S1: The disc does not extend beyond the endplate margin. There is severe bilateral facet joint ost eoarthritis. There is mild bilateral neural foraminal stenosis. There is no central canal stenosis. IMPRESSION: 1. Severe thoracic and lumbar spondylosis. Reviewed, dictated and finalized at location A. [employer]
--- NOTE | ~2024-04-06 | CT_ITS ---
EXAMINATION: CT cervical spine wo con DATE: 04/06/2024 08:42 INDICATION: Cervical spondylosis with radiculopathy. TECHNIQUE: Computed tomography (CT) of the cervical spine was performed without intravenous contrast. Automated exposure control and iterative reconstruction technique were employed. The dose-length pro duct was 456.09 mGy-cm. COMPARISON: Cervical spine MRI 04/30/2023 FINDINGS: There is 3 degrees levocurvature of cervical spine. There are changes of anterior fusion pr ocedure from C4 to C6 with healed interbody bone graft and anterior plate and screws. Vertebral body heights are normal. There is moderately decreased disc height at C3-C4 and severely decreased disc he ight at C6-C7. The following disc levels are specifically discussed: C2-C3: There is mild bilateral uncovertebral joint osteoarthritis. There is severe bilateral facet harperet int osteoarthritis. There is mild right neural foraminal stenosis. There is no central canal stenosis . C3-C4: There is moderate right and severe left uncovertebral joint osteoarthritis. There is severe bi lateral facet joint osteoarthritis. There is mild right and moderate left neural foraminal stenosis. There is no central canal stenosis. C4-C5: There is mild bilateral uncovertebral joint hypertrophy. There is moderate right and mild left facet joint hypertrophy. There is mild bilateral neural foraminal stenosis. There is mild central ca nal stenosis. C5-C6: There is moderate right and severe left uncovertebral joint hypertrophy. There is mild right a nd moderate left facet joint osteoarthritis. There is mild left neural foraminal stenosis. There is m ild central canal stenosis. C6-C7: There is moderate bilateral uncovertebral joint osteoarthritis. There is severe bilateral face t joint osteoarthritis. There is mild bilateral neural foraminal stenosis. There is mild central berenice l stenosis. C7-T1: There is no uncovertebral joint osteoarthritis. There is severe bilateral facet joint osteoart hritis. There is mild bilateral neural foraminal stenosis. There is no central canal stenosis. IMPRESSION: 1. Severe cervical spondylosis. 2. Anterior fusion procedure from C4 to C6. Reviewed, dictated and finalized at location A. IAL EVENTS PLANNER
--- OUTSIDE RECORDS SUMMARY | 2024-04-13 08:31 | XMS_ITS | Encounter Summary ---
Author Organization [employer] Care Team Providers Care Parking Control Officer Name Role Phone Bhargav Wilkes MD Primary Care Provider [phone] Encounter Details Date Type Department Care Team (Latest Contact Info) Description 03/29/2024 Travel Social History Tobacco Use Types Packs/Day Years Used Date Smoking Tobacco: Never Assessed Comments No Sex and Gender Information Value Date Recorded Sex Assigned at Not on file Legal Sex Female 8:55 PM CDT Gender Identity Not on file Sexual Orientation Not on file documented as of this encounter Plan of Treatment Not on file documented as of this encounter Visit Diagnoses Not on filedocumented in this encounter Care Teams Parking Control Officer Relationship Specialty Start Date End Date Bhargav Wilkes MD [address] [place] [address] PCP - General Family Medicine 12/30/23 documented as of this encounter
--- OUTSIDE RECORDS SUMMARY | 2024-04-13 08:31 | XMS_ITS | Encounter Summary ---
Author Organization [facility] Address [address] [place] [address] Phone Care Team Providers Care Academic Affairs Dean Name Role Phone Huang Alonso MD Primary Care Provider [phone] Reason for Referral * Radiology Services (Routine) - Closed Specialty Diagnoses / Procedures Referred By Contac t Referred To Contact Radiology Diagnoses Encounter for mammogram to establish baseline mammogram Procedures ERVIN SCREENING BILATERAL DIGITAL W CAD W SMITH Huang Alonso MD [address] [place] [address] Phone: tel: fax: Referral ID Status Reason Start Date Expiration Date Visits Re quested Visits Authorized [id number] Closed 10/09/2020 1 1 Encounter Details Date Type Department Care Team (Late st Contact Info) Description 10/09/2020 Transcribe Orders [facility] Central Scheduling [address] [place] [id number] Huang Alonso MD [address] [place] [address] Encounter for mammogram to establish baseline mammogram (Primary Dx) Social History Tobacco Use Types Packs/Day Years Used Date Smoking Tobacco: Never Assessed Comments No Sex and Gender Information Value Date Recorded Sex Assigned at Not on file Legal Sex Female 8:55 PM CDT Gender Identity Not on file Sexual Orientation Not on file documented as of this encounter Plan of Treatment Not on file documented as of this encounter Results * ERVIN SCREENING BILATERAL DIGITAL W CAD W SMITH (11/06/2020 2:53 PM CDT) Anatomical Region Laterality Modality breast Bilateral Mammography 11/06/2020 2:33 PM CDT Narrative 11/07/2020 6:27 PM CDT - ERVIN SCREENING BILATERAL DIGITAL W CAD W SMITH BILATERAL DIGITAL SCREENING MAMMOGRAM 3D/2D WITH CAD WITH MEDIOLATERAL OBLIQUE CRANIOCAUDAL: 11/06/2020 The study was acquired using digital technology and interpreted from soft copy. Current study was also evaluated with [employer] version 7.2. 2D digital mammographic views, as well as 3D digital tomosynthesis were performed in the CC and MLO projections. ?? CLINICAL: Routine screening. Patient has no complaints. No personal history of cancer. Sister and paternal aunt with breast cancer. ?? COMPARISONS: Comparison is made to exams dated: ??09/28/2019, 03/25/2018 [facility], and 02/13/2017 [facility]. ?? BREAST TISSUE:The tissue of both breasts is heterogeneously dense. This may lower the sensitivity of mammography. ?? FINDINGS: There is an asymmetry in the right breast middle depth superior region seen on the mediolateral oblique view only. ?? No other significant masses, calcifications, or other findings are seen in either breast. ?? IMPRESSION: BI-RAD 0 ADDITIONAL IMAGING EVALUATION NEEDED The asymmetry in the right breast is indeterminate. ?? An immediate follow-up is recommended. ?? The patient has been or will be contacted. ?? Electronically signed by: Ian Celis M.D. ? lawanda/penrad:11/07/2020 16:58:59 ?? Wheelchair Van Operator First Responder(s): Lanette ??Ahmet Yousif)(Raul), [facility] letter sent: Additional Imaging ?? Reading location: [facility] BI-RADS: 0 Additional Imaging Evaluation Needed Procedure Note Ian Celis MD - 11/07/2020 - ERVIN SCREENING BILATERAL DIGITAL W CAD W SMITH BILATERAL DIGITAL SCREENING MAMMOGRAM 3D/2D WITH CAD WITH MEDIOLATERAL OBLIQUE CRANIOCAUDAL: 11/06/2020 The study was acquired using digital technology and interpreted from soft copy. Current study was also evaluated with ICAD version 7.2. 2D digital mammographic views, as well as 3D digital tomosynthesis were performed in the CC and MLO projections. CLINICAL: Routine screening. Patient has no complaints. No personal history of cancer. Sister and paternal aunt with breast cancer. COMPARISONS: Comparison is made to exams dated: 09/28/2019, 03/25/2018 [facility], and 02/13/2017 [facility]. BREAST TISSUE:The tissue of both breasts is heterogeneously dense. This may lower the sensitivity of mammography. FINDINGS: There is an asymmetry in the right breast middle depth superior region seen on the mediolateral oblique view only. No other significant masses, calcifications, or other findings are seen in either breast. IMPRESSION: BI-RAD 0 ADDITIONAL IMAGING EVALUATION NEEDED The asymmetry in the right breast is indeterminate. An immediate follow-up is recommended. The patient has been or will be contacted. Electronically signed by: Ian webber/marcial:11/07/2020 16:58:59 Wheelchair Van Operator First Responder(s): Fernie Gutierrez(Neftali)(M), [facility] letter sent: Additional Imaging Reading location: [facility] BI-RADS: 0 Additional Imaging Evaluation Needed Huang Alonso MD IMG MAMMO ORDERABLES Final Result documented in this encounter Visit Diagnoses Diagnosis Encounter for mammogram to establish baseline mammogram- Primary Other screening mammogram Encounter for mammogram to establish baseline mammogram Other screening mammogram documented in this encounter Care Teams Academic Affairs Dean Relationship Specialty Start Date End Date Huang Alonso MD [address] [place] [address] PCP - General Family Medicine 08/29/15 12/29/23 documented as of this encounter
--- OUTSIDE RECORDS SUMMARY | 2024-04-13 08:31 | XMS_ITS | Encounter Summary ---
Author Organization [email or web address] Care Team Providers Care Speech Lang Path Therapist Name Role Phone Huang Alonso MD Primary Care Provider [phone] Encounter Details Date Type Department Care Team (Latest Contact Info) Description 11/06/2020 Travel Social History Tobacco Use Types Packs/Day Years Used Date Smoking Tobacco: Never Assessed Comments No Sex and Gender Information Value Date Recorded Sex Assigned at Not on file Legal Sex Female 8:55 PM CDT Gender Identity Not on file Sexual Orientation Not on file COVID-19 Exposure Response Date Recorded In the last month, have you been in contact with someone who was confirmed or suspected to have Coronavirus / COVID-19? No / Unsure 11/06/2020 2:26 PM CDT documented as of this encounter Plan of Treatment Not on file documented as of this encounter Visit Diagnoses Not on filedocumented in this encounter Care Teams Speech Lang Path Therapist Relationship Specialty Start Date End Date Huang Alonso MD [address] [address] PCP - General Family Medicine 08/29/15 12/29/23 documented as of this encounter
--- OUTSIDE RECORDS SUMMARY | 2024-04-13 08:31 | XMS_ITS | Encounter Summary ---
Author Organization [facility] Address [address] [place] [address] Phone Care Team Providers Care Material Liaison Name Role Phone Bhargav Wilkes MD Primary Care Provider Reason for Referral * Radiology Services (Routine) - Closed Specialty Diagnoses / Procedures Referred By Darlene t Referred To Contact Radiology Diagnoses Encounter for screening mammogram for breast cancer Procedures ERVIN SCREENING BILATERAL DIGITAL W CAD W SMITH Bhargav Wilkes MD [address] [place] [address] Phone: tel: fax: Referral ID Status Reason Start Date Expiration Date Visits Re quested Visits Authorized [id number] Closed 12/30/2023 1 1 Encounter Details Date Type Department Care Team (Late st Contact Info) Description 12/30/2023 Transcribe Orders [facility] Central Scheduling [address] [place] [id number] Bhargav Wilkes MD [address] [place] [address] Encounter for screening mammogram for breast cancer (Primary Dx) Social History Tobacco Use Types [...] SCREENING BILATERAL DIGITAL W CAD W SMITH (03/29/2024 1:04 PM SHUTTLE ROUTE VEHICLE OPERATOR) Anatomical Region Laterality Modality breast Bilateral Mammography 03/29/2024 1:03 PM SHUTTLE ROUTE VEHICLE OPERATOR Narrative 03/30/2024 10:01 AM SHUTTLE ROUTE VEHICLE OPERATOR - ERVIN SCREENING BILATERAL DIGITAL W CAD W SMITH BILATERAL DIGITAL SCREENING MAMMOGRAM 3D/2D WITH CAD WITH MEDIOLATERAL OBLIQUE CRANIOCAUDAL: 03/29/2024 The study was acquired using digital technology and interpreted from soft copy. Current study was also evaluated with Rexly version 7.2. 2D digital mammographic views, as well as 3D digital tomosynthesis were performed in the CC and MLO projections. ?? CLINICAL: Routine screening. Patient has no complaints. Very reduced range of motion, due to issues with spinal cord. Patient can stand for imaging with assistance. No personal history of cancer. Sister with postmenopausal breast cancer. Paternal aunt had breast cancer. ?? COMPARISONS: Comparison is made to exams dated: ??11/06/2020, 09/28/2019, and 03/25/2018 [facility]. ?? BREAST TISSUE:The breasts are heterogeneously dense, which may obscure small masses. ?? FINDINGS: No significant masses, calcifications, or other findings are seen in either breast. ?? There has been no significant interval change. IMPRESSION: NEGATIVE There is no mammographic evidence of malignancy. A 1 year screening mammogram is recommended. ?? A letter will be sent to the patient with these results. The patient will be entered into a reminder system with a target due date of 1 year for her next screening exam. Electronically signed by: Ian Celis M.D. ? lawanda/penrad:03/29/2024 16:29:25 ?? Twenty One Dealer(s): Georgie ?? RT Sage(Neftali)(M), [facility] letter sent: Normal Exam ?? Reading location: [facility] BI-RADS: Category 1: Negative Procedure Note Ian Celis MD - 03/30/2024 - ERVIN SCREENING BILATERAL DIGITAL W CAD W SMITH BILATERAL DIGITAL SCREENING MAMMOGRAM 3D/2D WITH CAD WITH MEDIOLATERAL OBLIQUE CRANIOCAUDAL: 03/29/2024 The study was acquired using digital technology and interpreted from soft copy. Current study was also evaluated with ICAD version 7.2. 2D digital mammographic views, as well as 3D digital tomosynthesis were performed in the CC and MLO projections. CLINICAL: Routine screening. Patient has no complaints. Very reduced range of motion, due to issues with spinal cord. Patient can stand for imaging with assistance. No personal history of cancer. Sister with postmenopausal breast cancer. Paternal aunt had breast cancer. COMPARISONS: Comparison is made to exams dated: 11/06/2020, 09/28/2019, and 03/25/2018 [facility]. BREAST TISSUE:The breasts are heterogeneously dense, which may obscure small masses. FINDINGS: No significant masses, calcifications, or other findings are seen in either breast. There has been no significant interval change. IMPRESSION: NEGATIVE There is no mammographic evidence of malignancy. A 1 year screening mammogram is recommended. A letter will be sent to the patient with these results. The patient will be entered into a reminder system with a target due date of 1 year for her next screening exam. Electronically signed by: Ian webber/marcial:03/29/2024 16:29:25 Twenty One Dealer(s): RT Mikhail(R)(M), [facility] letter sent: Normal Exam Reading location: [facility] M[facility] BI-RADS: Category 1: Negative us Bhargav Wilkes MD IMG MAMMO ORDERABLES Final R esult documented in this encounter Visit Diagnoses Diagnosis Encounter for screening mammogram for breast cancer- Primary Encounter for screening mammogram for breast cancer documented in this encounter Care Teams Material Liaison Relationship Specialty Start Date End Date Bhargav Wilkes MD [address] [place] [address] PCP - General Family Medicine 12/30/23 documented as of this encounter
--- OUTSIDE RECORDS SUMMARY | 2024-04-13 08:31 | XMS_ITS | Encounter Summary ---
Author Organization [employer] Care Team Providers Care Chain Maker Machine Name Role Phone Huang Alonso MD Primary Care Provider [phone] Encounter Details Date Type Department Care Team (Latest Contact Info) Description 11/27/2020 Travel Social History Tobacco Use Types Packs/Day [...] have Coronavirus / COVID-19? No / Unsure 11/27/2020 7:44 AM CDT documented as of this encounter Plan of Treatment Not on file documented as of this encounter Visit Diagnoses Not on filedocumented in this encounter Care Teams Chain Maker Machine Relationship Specialty Start Date End Date Huang Alonso MD [address] [place] [address] PCP - General Family Medicine 08/29/15 12/29/23 documented as of this encounter
--- OUTSIDE RECORDS SUMMARY | 2024-04-13 08:31 | XMS_ITS | Encounter Summary ---
Author Organization [facility] Address [address] [place] [address] Care Team Providers Care Machine Shop Inspector Name Role Phone Betty Alonso MD Primary Care Provider [phone] Reason for Visit * Reason Onset Date Comments Medication Issue 01/29/2021 Encounter Details Date Type Department Care Team (Late st Contact Info) Description 01/29/2021 Telephone [facility] Breast Care - Surgery [address] [place] [address] Lesli Dan MD [address] [place] [phone] Medication Issue Social History Tobacco Use Types Packs/Day Years Used Date Smoking Tobacco: Former Cigarettes 1 5 0 04/12/1973 - 04/12/1978 Smokeless Tobacco: Never Alcohol Use Standard Drinks/Week Comments Yes 0 (1 standard drink = 0.6 oz pur e alcohol) 1 x week Sex and Gender Information Value Date Recorded Sex Assigned at Not on file Gender Identity Not on file Sexual Orientation Not on file documented as of this encounter Miscellaneous Notes * Telephone Encounter - Kathie Byrd MA - 01/29/2021 11:[address] Dan: She can stop it for 2 weeks to make sure those side effects go away when she's nottaking it. ??If they don't, then it's not the tamoxifen. If they do, then she could try the 5 mg tamoxifen dose (would have to cut the 10 mg pills in half) and we'd get her a new script for that. I called Hailee with the above information. She expressed understanding and will stop the tamoxifenfor 2 weeks. She will update our office. * Telephone Encounter - Kathie yBrd MA - 01/29/2021 10:01 AM CDT Hailee called stating she is having issues with the tamoxifen. She is having horrible joint pain and terrible night sweats. She has been on [employer] for quite awhile and since starting the tamoxifen she has gained 5 pounds in the last month. She has not changed anything else. She said she has trouble with a lot of medications so this does not surprise her. She is wondering what she should do? documented in this encounter Plan of Treatment Not on file documented as of this encounter Visit Diagnoses Not on filedocumented in this encounter Care Teams Machine Shop Inspector Relationship Specialty Start Date End Date Betty Alonso MD [address] [place] [address] PCP - General 05/05/18 01/28/22 documented as of this encounter
--- OUTSIDE RECORDS SUMMARY | 2024-04-13 08:31 | XMS_ITS | Encounter Summary ---
Author Organization [facility] Address [address] [place] [address] Phone Care Team Providers Care Technical Instructor Name Role Phone Bhargav Wilkes MD Primary Care Provider [phone] Reason for Referral * Radiology Services (Routine) - Closed Specialty Diagnoses / Procedures Referred By Darlene hodgson Referred To Contact Radiology Diagnoses Encounter for screening mammogram for breast cancer Procedures ERVIN SCREENING BILATERAL DIGITAL W CAD W Bhargav Pa MD [address] [place] [address] Phone: tel: fax: Referral ID Status Reason Start Date Expiration Date Visits Re quested Visits Authorized [id number] Closed 12/30/2023 1 1 ATIONAL METEOROLOGIST Reason for Visit * Radiology Services (Routine) - Closed Specialty Diagnoses / Procedures Referred By Darlene hodgson Referred To Contact Radiology Diagnoses Encounter for screening mammogram for breast cancer Procedures ERVIN SCREENING BILATERAL DIGITAL W CAD W Bhargav Pa MD [address] [place] [address] Phone: tel: fax: Referral ID Status Reason Start Date Expiration Date Visits Re quested Visits Authorized [id number] Closed 12/30/2023 1 1 Encounter Details Date Type Department Care Team (Latest Contact Info) Description 03/29/2024 12:34 PM OPERATIONAL METEOROLOGIST - 03/29/2024 11:59 PM OPERATIONAL METEOROLOGIST Hospital Encounter [facility] Mammography [address] [facility] [place] [phone] Bhargav Wilkes MD [address] [place] [address] Discharge Disposition: Discharged to home or Selfcare Social History Tobacco Use Types Packs/Day Years Used Date Smoking Tobacco: Never Assessed Comments No Sex and Gender Information Value Date Recorded Sex Assigned at Not on file Legal Sex Female 8:55 PM CDT Gender Identity Not on file Sexual Orientation Not on file documented as of this encounter Plan of Treatment Not on file documented as of this encounter Procedures Procedure Name Priority Date/Time Associated Diagnosis Comments ERVIN SCREENING BILATERAL DIGITAL W CAD W SMITH Routine 03/29/2024 1:04 PM OPERATIONAL METEOROLOGIST Encounter for screening mammogram for breast cancer documented in this encounter Results * ERVIN SCREENING BILATERAL DIGITAL W CAD W SMITH (03/29/2024 1:04 PM OPERATIONAL METEOROLOGIST) Anatomical Region Laterality Modality breast Bilateral Mammography 03/29/2024 1:03 PM OPERATIONAL METEOROLOGIST Narrative 03/30/2024 10:01 AM OPERATIONAL METEOROLOGIST - ERVIN SCREENING BILATERAL DIGITAL W CAD [...] to exams dated: ??11/06/2020, 09/28/2019, and [facility]. ?? BREAST TISSUE:The breasts are heterogeneously dense, [...] Electronically signed by: Ian Celis M.D. ? ll/penrad:03/29/2024 16:29:25 ?? Fishing Boat Captain(s): Georgie ?? RT Sage(R)(M), [facility] letter sent: Normal Exam ?? Reading location: [...] to exams dated: 11/06/2020, 09/28/2019, and 03/25/2018 [facility]. BREAST TISSUE:The breasts are heterogeneously dense, which [...] exam. Electronically signed by: Ian Celis M.D. ll/penrad:03/29/2024 16:29:25 Fishing Boat Captain(s): Georgie Cazares, RT(R)(M), [facility] letter sent: Normal Exam Reading location: [facility] Mammogram BI-RADS: Category 1: Negative us Bhargav Wilkes MD IMG MAMMO ORDERABLES Final R esult documented in this encounter Visit Diagnoses Diagnosis Encounter for screening mammogram for breast cancer documented in this encounter Care Teams Technical Instructor Relationship Specialty Start Date End Date Bhargav Wilkes MD [address] [place] [address] PCP - General Family Medicine 12/30/23 documented as of this encounter
--- OUTSIDE RECORDS SUMMARY | 2024-04-13 08:31 | XMS_ITS | Encounter Summary ---
Author Organization [employer] Care Team Providers Care Suction Plate Roller Hand Name Role Phone Huang Alonso MD Primary Care Provider [phone] Encounter Details Date Type Department Care Team (Latest Contact Info) Description 09/28/2019 Travel Social History Tobacco Use Types Packs/Day [...] have Coronavirus / COVID-19? No / Unsure 09/28/2019 11:23 AM CDT documented as of this encounter Plan of Treatment Not on file documented as of this encounter Visit Diagnoses Not on filedocumented in this encounter Care Teams Suction Plate Roller Hand Relationship Specialty Start Date End Date Huang Alonso MD [address] [place] [address] PCP - General Family Medicine 08/29/15 12/29/23 documented as of this encounter
--- OUTSIDE RECORDS SUMMARY | 2024-04-13 08:31 | XMS_ITS | Encounter Summary ---
Author Organization [facility] Address [address] [place] [address] Phone Care Team Providers Care Plane Captain Name Role Phone Huang Alonso MD Primary Care Provider [phone] Reason for Referral * Radiology Services (Routine) - Closed Specialty Diagnoses / Procedures Referred By Darlene hodgson Referred To Contact Radiology Diagnoses Encounter for mammogram to establish baseline mammogram Procedures ERVIN SCREENING BILATERAL DIGITAL W CAD W Huang Rasheed MD [address] [place] [address] Phone: tel: fax: Referral ID Status Reason Start Date Expiration Date Visits Re quested Visits Authorized [id number] Closed 10/09/2020 1 1 Reason for Visit * Radiology Services (Routine) - Closed Specialty Diagnoses / Procedures Referred By Darlene hodgson Referred To Contact Radiology Diagnoses Encounter for mammogram to establish baseline mammogram Procedures ERVIN SCREENING BILATERAL DIGITAL W CAD W Huang Rasheed MD [address] [place] [place] [address] Phone: tel: fax: Referral ID Status Reason Start Date Expiration Date Visits Re quested Visits Authorized [id number] Closed 10/09/2020 1 1 Encounter Details Date Type Department Care Team (Latest Contact Info) Description 11/06/2020 2:32 PM CDT - 11/06/2020 11:59 PM CDT [facility] [address] [place] [phone] Huang Alonso MD [address] [place] [place] [address] Discharge Disposition: Discharged to home or Selfcare [...] BILATERAL DIGITAL W CAD W SMITH Routine 11/06/2020 2:53 PM CDT Encounter for mammogram to establish baseline mammogram documented in this encounter Results * ERVIN [...] made to exams dated: ??09/28/2019, 03/25/2018 [facility], and 02/13/2017 [facility]. ?? BREAST TISSUE:The tissue of both [...] Electronically signed by: Ian Celis M.D. ? ll/penrad:11/07/2020 16:58:59 ?? Workday Consultant(s): Lanette ??Fernie Yousif(Neftali)(Raul), [facility] letter sent: Additional Imaging ?? Reading location: [facility] BI-RADS: 0 Additional Imaging Evaluation Needed Procedure [...] is made to exams dated: 09/28/2019, 03/25/2018 [facility], and 02/13/2017 [facility]. BREAST TISSUE:The tissue of both breasts is [...] contacted. Electronically signed by: Ian webber/marcial:11/07/2020 16:58:59 Workday Consultant(s): Ahmet Gutierrez)(M), [facility] letter sent: Additional Imaging Reading location: [facility] BI-RADS: 0 Additional Imaging Evaluation Needed us Huang Alonso MD IMG MAMMO ORDERABLES Final Result documented in this encounter Visit Diagnoses Diagnosis Encounter for mammogram to establish baseline mammogram Other screening mammogram documented in this encounter Care Teams Plane Captain Relationship Specialty Start Date End Date Huang Alonso MD [address] [place] [address] PCP - General Family Medicine 08/29/15 12/29/23 documented as of this encounter
--- OUTSIDE RECORDS SUMMARY | 2024-04-13 08:31 | XMS_ITS | Encounter Summary ---
Author Organization [employer] Care Team Providers Care Tank Truck Operator Name Role Phone Bhargav Wilkes MD Primary Care Provider [phone] Encounter Details Date Type Department Care Team (Latest Contact Info) Description 03/27/2024 Travel Social History Tobacco Use Types Packs/Day [...] on filedocumented in this encounter Care Teams Tank Truck Operator Relationship Specialty Start Date End Date Bhargav Wilkes MD [address] [place] [address] PCP - General Family Medicine 12/30/23 documented as of this encounter
--- OUTSIDE RECORDS SUMMARY | 2024-04-13 08:31 | XMS_ITS | Encounter Summary ---
Author Organization [facility] Address [address] [place] [address] Phone Care Team Providers Care Scale Agent Name Role Phone Huang Alonso MD Primary Care Provider [phone] Reason for Referral * Radiology Services (Routine) - Closed Specialty Diagnoses / Procedures Referred By Darlene hodgson Referred To Contact Radiology Diagnoses Other abnormal and inconclusive findings on diagnostic imaging of breast Procedures ERVIN DIAG RIGHT UNILATERAL DIGITAL W CAD W SMITH ERVIN DIAG RIGHT DIGITAL W CAD Huang Alonso MD [address] [place] [address] Phone: tel: fax: Referral ID Status Reason Start Date Expiration Date Visits Re quested Visits Authorized [id number] Closed 11/12/2020 1 1 Reason for Visit * Radiology Services (Routine) - Closed Specialty Diagnoses / Procedures Referred By Darlene hodgson Referred To Contact Radiology Diagnoses Other abnormal and inconclusive findings on diagnostic imaging of breast Procedures ERVIN DIAG RIGHT UNILATERAL DIGITAL W CAD W SMITH ERVIN DIAG RIGHT DIGITAL W CAD Huagn Alonso MD [address] [place] [address] Phone: tel: fax: Referral ID Status Reason Start Date Expiration Date Visits Re quested Visits Authorized [id number] Closed 11/12/2020 1 1 Encounter Details Date Type Department Care Team (Latest Contact Info) Description 11/27/2020 7:59 AM CDT - 11/27/2020 11:59 PM CDT Hospital Encounter [facility] Mammography [address] [place] [address] Huang Alonso MD [address] [place] [place] [address] Discharge Disposition: Discharged to home or Selfcare [...] Name Priority Date/Time Associated Diagnosis Comments ERVIN DIAG RIGHT UNILATERAL DIGITAL W CAD W SMITH Routine 11/27/2020 8:51 AM CDT Other abnormal and inconclusive findings on diagnostic imaging of breast documented in this encounter Results * ERVIN DIAG RIGHT UNILATERAL DIGITAL W CAD W SMITH (11/27/2020 8:51 AM CDT) Anatomical Region Laterality Modality breast Right Mammography 11/27/2020 8:01 AM CDT Narrative 11/27/2020 8:52 AM CDT - ERVIN DIAG RIGHT UNILATERAL DIGITAL W CAD W SMITH UNILATERAL RIGHT DIGITAL DIAGNOSTIC MAMMOGRAM 3D/2D WITH CAD WITH MEDIOLATERAL MEDIOLATERAL OBLIQUE SPOT COMPRESSION: 11/27/2020 The study was acquired using digital technology and interpreted from soft copy. Current study was also evaluated with ICAD version 7.2. 2D digital mammographic views, as well as 3D digital tomosynthesis were performed in the CC and MLO projections. ?? CLINICAL: Diagnostic study. Patient returns to evaluate an asymmetry in the right breast. Sister and paternal aunt with breast cancer. ?? COMPARISONS: Comparison is made to exams dated: ??11/06/2020, [facility]25/2018, [facility] ?? BREAST TISSUE:The tissue of right breast is heterogeneously dense. This may lower the sensitivity of mammography. ?? FINDINGS: Spot compression MLO and full field 90 degree tomographic images of the right breast were performed. ??The asymmetry noted on the screening study completely effaces and is no longer visualized. ?? This likely related to overlapping tissues. IMPRESSION: BI-RAD 1 NEGATIVE There is no mammographic evidence of malignancy. Return to annual mammogram screening schedule is recommended. ?? The patient has been or will be contacted. ?? Electronically signed by: Ramona Alvarado M.D. ? ab/:11/27/2020 08:44:18 ?? Nitroglycerin Nitrator Operator Batch(s): Georgie ?? RT Sage(Neftali)(M), [facility] letter sent: Normal Exam ?? Reading location: [facility] BI-RADS: 1 Negative Procedure Note Ramona Alvarado MD - 11/27/2020 - ERVIN DIAG RIGHT UNILATERAL DIGITAL W CAD W SMITH UNILATERAL RIGHT DIGITAL DIAGNOSTIC MAMMOGRAM 3D/2D WITH CAD WITH MEDIOLATERAL MEDIOLATERAL OBLIQUE SPOT COMPRESSION: 11/27/2020 The study was acquired using digital technology and interpreted from soft copy. Current study was also evaluated with ICAD version 7.2. 2D digital mammographic views, as well as 3D digital tomosynthesis were performed in the CC and MLO projections. CLINICAL: Diagnostic study. Patient returns to evaluate an asymmetry in the right breast. Sister and paternal aunt with breast cancer. COMPARISONS: Comparison is made to exams dated: 11/06/2020, 03/25/2018, and 09/28/2019 [facility]. BREAST TISSUE:The tissue of right breast is heterogeneously dense. This may lower the sensitivity of mammography. FINDINGS: Spot compression MLO and full field 90 degree tomographic images of the right breast were performed. The asymmetry noted on the screening study completely effaces and is no longer visualized. This likely related to overlapping tissues. IMPRESSION: BI-RAD 1 NEGATIVE There is no mammographic evidence of malignancy. Return to annual mammogram screening schedule is recommended. The patient has been or will be contacted. Electronically signed by: Ramona Alvarado M.D. ab/:11/27/2020 08:44:18 Nitroglycerin Nitrator Operator Batch(s): Georgie Cazares RT(R)(M), [facility] letter sent: Normal Exam Reading location: [facility] BI-RADS: 1 Negative us Huang Alonso MD IMG MAMMO ORDERABLES Final Result documented in this encounter Visit Diagnoses Diagnosis Other abnormal and inconclusive findings on diagnostic imaging of breast documented in this encounter Care Teams Scale Agent Relationship Specialty Start Date End Date Huang Alonso MD [address] [place] [address] PCP - General Family Medicine 08/29/15 12/29/23 documented as of this encounter
--- OUTSIDE RECORDS SUMMARY | 2024-04-13 08:31 | XMS_ITS | Encounter Summary ---
Author Organization [facility] Address [address] [place] [address] Phone Care Team Providers Care Telephone Clerk Name Role Phone Huang Alonso MD Primary Care Provider [phone] Encounter Details Date Type Department Care Team (Late st Contact Info) Description 08/07/2019 [facility] [address] [place] [address] Huang Alonso MD [address] [place] [address] Encounter for screening mammogram for malignant neoplasm of breast (Primary Dx) Social History Tobacco Use Types [...] documented as of this encounter Visit Diagnoses Diagnosis Encounter for screening mammogram for malignant neoplasm of breast- Primary Other screening mammogram documented in this encounter Care Teams Telephone Clerk Relationship Specialty Start Date End Date Huang Alonso MD [address] [place] [address] PCP - General Family Medicine 08/29/15 12/29/23 documented as of this encounter
--- OUTSIDE RECORDS SUMMARY | 2024-04-13 08:31 | XMS_ITS | Encounter Summary ---
Author Organization [facility] Address [address] [facility] [place] [address] Care Team Providers Care Jeweler Apprentice Name Role Phone Unavailable Primary Care Provider Unavailabl e Reason for Visit * Reason Comments Positive Family History Family hx breast cancer, followup Encounter Details Date Type Department Care Team (Late st Contact Info) Description 01/29/2022 1:30 PM CDT Office Visit [facility] Breast Care - Surgery [address] [place] [address] [place] [id number] Lesli Dan MD [address] [place] [address] [place] [phone] Family history of breast cancer (Primary Dx); Increased risk of breast cancer; Dense breasts; History of genetic counseling; Non morbid obesity due to excess calories; Breast cancer screening by mammogram Social History Tobacco Use Types Packs/Day Years [...] on file documented as of this encounter Last Filed Vital Signs Vital Sign Reading Time Taken Comments Blood Pressure - - Pulse - - Temperature - - Respiratory Rate - - Oxygen Saturation - - Inhaled Oxygen Concentration - - Weight 81.6 kg (180 lb) 01/29/2022 12:57 PM CDT Height 161.3 cm (5' 3.5 ) 01/29/2022 12:57 PM CD T Body Mass Index 31.39 01/29/2022 12:57 PM CDT documented in this encounter Progress Notes * Lesli Dan MD - 01/29/2022 1:30 PM CDT CHIEF COMPLAINT: Family history of breast cancer; increased risk breast cancer HISTORY OF PRESENT ILLNESS: Hailee Tanner is a 66 year old female with family history of breast cancer who is at increased risk for breast cancer. I initially saw her 12/17/2020 regarding abnormal breast imaging and family history of breast cancer.She had not noticed any breast concerns aside from the fact that she thought her left breast seemedlarger than her right over the prior several years. Her sister had suggested she see me for anotheropinion regarding her abnormal mammogram and her family history of breast cancer. On 11/06/2020, [place]. Comparison 09/28/2019. Dense. Asymmetry right breast middle depth superior on MLO view only. BI-RADS 0. On 11/27/2020, she had right diagnostic mammogram, [facility]. 3D. Dense. The asymmetry on the screening study completely effaces and is no longer visualized. BI-RADS 1. She has family history of breast cancer. She was identified as being at increased risk for breast cancer. She was considering supplemental breast MRI screening. She took a prescription for risk reducing tamoxifen 12/2020. She stopped this 01/29/2021 due to joint pain, night sweats, and weight gain. Her sister, Abril Syed, is a patient of mine and had negative panel genetic testing. Abril previously indicated she was okay with sharing family history information in genetic testing information with Hailee. Hailee also put Abril on her privacy form. She is here 01/29/2022 for follow-up regarding family history of breast cancer and increased risk for breast cancer. 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 I previously gave her the code for breast MRI and she will call the office if she wants to proceed with breast MRI with contrast. She did not pursue this. She took prescription for tamoxifen 12/2020. She contacted the office 01/29/2021 indicating she was having joint pain and night sweats and had gained 5 lb. I recommended stopping the tamoxifen for 2 weeks and if side effects improved, then could try the 5 mg dosage of tamoxifen. She reported she never resumed the tamoxifen. She was due for bilateral screening mammogram 11/2021. She had this performed earlier today, 01/29/2022, which showed dense breast tissue, no concerning findings, BI-RADS 1. She canceled her 06/17/2021 appointment with me the day prior. 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 She did previously add her sister Abril Syed to her privacy form. She is and denies Ashkenazi Evangelical descent. First live , age 24. First menstrual cycle, age 11. She is postmenopausal. She has had 4 pregnancies resulting in 2 children. She did not breastfeed. She did use control pills in the past for 5-10 years, but not currently. She has never used hormone replacement therapy. Her bra size is 36 DD/DDD. She has never had breast implants orbreast reduction surgery. She has had hysterectomy, but ovaries are still in place. 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 03/2021 Paraparesis Family history breast cancer PAST SURGICAL HISTORY: 1979, 1985 x2 1989 hysterectomy 01/17/2018 right knee arthroscopy, partial medial meniscectomy 03/13/2021 anterior cervical diskectomy and fusion C4-5 and C5-6 and T2-3 laminectomy ALLERGIES: Codeine caused side effect of vomiting Oxycodone caused side effect of vomiting MEDICATIONS Outpatient Medications Marked as Taking for the 01/29/22 encounter (Office Visit) with Lesli Dan MD Medication Sig ??? baclofen (Lioresal) 10 MG tablet Take 20 mg by mouth ??? CRANBERRY FRUIT PO Take 1 tablet by mouth once daily ??? Cyanocobalamin 2000 MCG Take 2,000 mcg by mouth once daily ??? diazePAM (Valium) 5 MG tablet Take 5 mg by mouth once daily as needed ??? gabapentin (Neurontin) 100 MG capsule Take 200 mg by mouth 3 times daily Total of 900 mg daily ??? MAGNESIUM PO ??? pantoprazole EC (Protonix) 40 MG tablet Take 40 mg by mouth every morning ??? polyethylene glycol 3350 (Miralax) 17 GM/SCOOP powder ??? traZODone (DESYREL) 50 MG tablet Take 50 mg by mouth nightly as needed ??? vitamin D3 (CHOLECALCIFEROL) 125 MCG (5000 UT) capsule Take 5,000 Units by mouth once daily SOCIAL HISTORY: She does not smoke tobacco. She quit smoking tobacco at age 23 after smoking 1 packper day for 5 years. She does drink alcohol. She drinks alcohol once per week FAMILY HISTORY: Details updated 01/2022 and are listed below: Her mother at age 78 after being diagnosed with??cervical??cancer in her 30s Her father at age 79 after being diagnosed with kidney cancer at age 75 that metastasized to the lungs. Her sister, Abril Syed (06/26/46) is living at age 75 and was diagnosed with right breast cancerat age 72.??Myriad Antonette neg. My patient. She has 1 daughter and 1 son. Her paternal grandfather in his 70s after being diagnosed with??lung cancer in his 70s. Her paternal aunt, Vinita,?? in her 70s and??was diagnosed with??breast??cancer in her late 40s.?No children. There is no other known malignancy in the family. She has 1 brother, Bhupinder, who at age 72. She has 1 daughter, Brenda, living at age 36. She has 1 son, gomez, living at age 42. Her maternal grandmother in her 20s of pneumonia Her maternal grandfather in his 70s Her paternal grandmother in her 70s She has 1 maternal aunt, Richa,??who in her 70s. She had 2 daughters. She has no maternal uncles. She has??3??additional paternal aunts; Dorcas??is living in her 80s.?Rufina and Dhara in their 70s She has??4??paternal uncles.?1 in childhood. ??Jarad, david, and Domingo all in their 70s. PHYSICAL EXAMINATION: The patient reports her height to be 5 feet 3 inches tall, her weight to be 175 pounds. She is alert and oriented. Psychiatric: normal affect and normal apparent cognition Breast: Bilateral breast exam reveals large ptotic breasts. Exam limited by doing so with her in wheelchair. In the left breast, there are no dominant masses, skin changes, or nipple discharge. In the right breast, there are no dominant masses, skin changes, or nipple discharge. There is no adenopathy in either the cervical, supraclavicular, infraclavicular, bilateral axillary, or internal mammary regions. IMAGIN03/25/2018 bilateral screening mamm[facility]. 3D. Dense. BI-RADS 2 09/28/[address] [facility]. Comparison 03/25/2018 [facility]. 3D. Dense. Scattered benign calcifications. BI-RADS 2 11/06/2020 bilateral screening mammogram. [facility], [place], [place]. 3D. Comparison 09/28/2019. Dense. Asymmetry right breast middle depth superior on MLO view only. BI-RADS 0 11/27/2020 right diagnostic mammogram, [facility]. 3D. Dense. The asymmetry on the screening study completely effaces and is no longer visualized. BI-RADS 1 02/17/2021 MRI thoracic lumbar spine, [facility]. Severe central spinal canal stenosis T2-3 due to large central disc protrusion. This indents the ventral surface of the spinal cord. Abnormal T2 signal in the spinal cord suggest chronic myelopathy. Not significantly changed from outside MRI cervical spine 01/06/2021. Multilevel degenerative disc and joint disease with foraminal narrowing. Mild canal narrowing L2-L3. 03/13/2021 MRI cervical, thoracic spine, [facility]. ??Interval C4-C6 ACDF and posterior T2-T3 decompression changes are new since MRI 02/17/2021 without epidural hematoma or abnormal postoperative fluid collection. 2. ??Slightly decreased craniocaudal extent of focal spinal cord signal abnormality at the level of the T2-T3 disc osteophyte. 3. ??Multilevel degenerative changes with spinal canal and neural foraminal stenoses as detailed above. 03/14/2021 CT thoracic spine, [facility]. Postoperative findings of recent T2-3 laminectomy with a surgical drain identified in the posterior paraspinous soft tissues. 2. ??No acute thoracic spine fracture. 3. 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 Spinal canal narrowing is better assessed on yesterday's MRI. 01/29/2022 bilateral screening mammogram, [facility]. 3D. Dense. BI-RADS 1 PATHOLOGY: 06/05/2019 [employer] BRCA with reflex to [facility] sent on patient's sister Abril Syed (06/26/46) (judit): BRCA neg, panel negative. [facility] panel genetic testing after 06/01/2018 includes: APC, ISSA, AXIN2, BARD1, BMPR1A, BRCA1, BRCA2, BRIP1, CDH1, CDK4, CDKN2A, CHEK2, EPCAM (large rearrangement only), GALNT12, GREM1, MLH1, MSH2, MSH3, MSH6, MUTYH, NBN, NTHL1, PALB2, PMS2, POLD1, POLE, PTEN, RAD51C, RAD51D, RNF43, ??RPS20, SMAD4, STK11, TP53. ASSESSMENT: Hailee Tanner is a 66 year old female with family history of breast cancer, increased risk breast cancer. On exam, she had no concerning findings I personally reviewed her CBC and CMP blood test results from 07/16/2021. I personally reviewed her bilateral screening mammogram report from 11/06/2020 and her right diagnostic mammogram report from 11/27/2020. I personally reviewed her neurosurgery office visit note from 01/28/2022. I personally reviewed her bilateral screening mammogram images and report from 01/29/2022. 1) family history breast cancer: 2) increased risk breast cancer I recalculated her lifetime risk estimates 01/29/2022. Her lifetime risk for developing breast cancer with the Maile model is 12% (0 biopsy), with the BRCAPRO model 7%, with the John model 4%, and with the Tyrer-Cuzick model 21% (version 8, dense) (if scattered densities, then 14 %). She meets criteria to consider high risk breast cancer screening. High risk screening includes annual mammograms, and the additional of annual breast MRI with contrast to screening. Breast MRI has high sensitivity and false positives, and requires an IV. Breast MRIcosts ~$3000 and typically is preauthorized with insurance, though Medicare does not provide an option for preauthorization. She is on Medicare, and she was concerned about potential cost, so I did previously give her the code for breast MRI to see if she could get anywhere with finding out from her Medicare plan on whether this would be covered or not. We discussed again 01/29/2022 and she decided against adding MRI to her screening. We did discuss that her breast density is right on the borderline between scattered fibroglandular densities and heterogeneously dense, and if she was classified as scattered fibroglandular densities, then her lifetime risk with a Tyrer-Cuzick would be 14 % and she would not meet criteria for supplemental MRI imaging, so I think reasonable not to do. She is due for bilateral screening mammograms in 01/2023. We previously discussed the option of risk reducing medications. I gave her prescription for tamoxifen, 20 mg, 12/17/2020. She contacted office 01/29/2021 with complaints of joint pain night sweats andweight gain. Recommended stopping tamoxifen for 2 weeks and if side effects improved, could then try 5 mg tamoxifen dosage. She did not end up resuming tamoxifen. We discussed again 01/29/2022 and she was not interested in resuming. 3) genetic counseling: Her sister had negative panel genetic testing with [facility]. Patient has personal risk for having BRCA mutation less than 3%. 4) dense breasts. She has dense breasts on mammography. Women with dense breasts on mammography have an increased risk for breast cancer due to this, and dense breasts can make it harder to see malignancies on mammography. Women with dense breasts who have a lifetime risk for developing breast cancer of 20% or greater are recommended to consider supplemental screening. She does meet criteria to co nsider supplemental MRI screening. 5) obesity. Women who are overweight or obese have increased risk for developing breast cancer and increased risk for breast cancer recurrence, compared to normal weight women. Being overweight or obese also increases risk for surgical complications. PLAN: I will see her on an as-needed basis. She is due for bilateral screening mammogram in 01/2023 , and I gave her an order for this. If she decides in the future that she wants to try risk reducing medication again or add MRI to herscreening, she will let me know. Lesli Dan MD, FACS Breast Surgeon [facility] Cc: Dr. Huang Alonso (PCP) Dr. Ybarra (derm) documented in this encounter Plan of Treatment Not on file documented as of this encounter Visit Diagnoses Diagnosis Family history of breast cancer- Primary Family history of malignant neoplasm of breast Increased risk of breast cancer Other specified personal history presenting hazards to health Dense breasts Inconclusive mammogram History of genetic counseling Non morbid obesity due to excess calories Breast cancer screening by mammogram documented in this encounter
--- OUTSIDE RECORDS SUMMARY | 2024-04-13 08:31 | XMS_ITS | Encounter Summary ---
Author Organization [facility] Address [address] [facility] [place] [address] Care Team Providers Care Mud Trucker Name Role Phone Unavailable Primary Care Provider Unavailabl e Reason for Referral * Radiology Services (Routine) - Closed Specialty Diagnoses / Procedures Referred By Darlene hodgson Referred To Contact Diagnoses Family history of breast cancer Dense breasts Increased risk of breast cancer Breast cancer screening by mammogram Procedures MAMMO BILAT SCREENING W SM[facility] MAMMO BILAT SCREENING Lesli Dan MD [address] [place] [phone] Referral ID Status Reason Start Date Expiration Date Visits Re quested Visits Authorized [id number] Closed 10/10/2021 10/10/2022 1 1 Reason for Visit * Radiology Services (Routine) - Closed Specialty Diagnoses / Procedures Referred By Darlene hodgson Referred To Contact Diagnoses Family history of breast cancer Dense breasts Increased risk of breast cancer Breast cancer screening by mammogram Procedures MAMMO BILAT SCREENING W SM[facility] MAMMO BILAT SCREENING Lesli Dan MD [address] [place] [phone] Referral ID Status Reason Start Date Expiration Date Visits Re quested Visits Authorized [id number] Closed 10/10/2021 10/10/2022 1 1 Encounter Details Date Type Department Care Team (Latest Contact Info) Description 01/29/2022 11:56 AM CDT - 01/29/2022 11:59 PM CDT Hospital Encounter [facility] Breast Care [address] [place] [address] Lesli Dan MD [address] [facility] [address] [place] [phone] Discharge Disposition: Home or Self Care Social History Tobacco Use Types Packs/Day Years [...] on file documented as of this encounter Medications at Time of Discharge Medication Sig Dispensed Refills Start Date End Date baclofen (Lioresal) 10 MG tablet Take 20 mg by mouth 11/10/2021 CRANBERRY FRUIT PO Take 1 tablet by mouth once daily Cyanocobalamin 2000 MCG Take 2,000 mcg by mouth once daily diazePAM (Valium) 5 MG tablet Take 5 mg by mouth once daily as needed 12/24/2021 gabapentin (Neurontin) 100 MG capsule Take 200 mg by mouth 3 times daily Total of 900 mg daily 12/22/2021 MAGNESIUM PO pantoprazole EC (Protonix) 40 MG tablet Take 40 mg by mouth every morning 12/21/2021 polyethylene glycol 3350 (Miralax) 17 GM/SCOOP powder 09/01/2021 traZODone (DESYREL) 50 MG tablet Take 50 mg by mouth nightly as needed 07/22/2020 vitamin D3 (CHOLECALCIFEROL) 125 MCG (5000 UT) capsule Take 5,000 Units by mouth once daily documented as of this encounter Plan of Treatment Not on file documented as of this encounter Procedures Procedure Name Priority Date/Time Associated Diagnosis Comments MAMMO BILAT SCREENING W SMITH Routine 01/29/2022 12:10 PM CDT Family history of breast cancer Dense breasts Increased risk of breast cancer Breast cancer screening by mammogram documented in this encounter Results * MAMMO BILAT SCREENING W SMITH (01/29/2022 12:10 PM CDT) Anatomical Region Laterality Modality Breast Bilateral Mammography 01/29/2022 12:2 2 PM CDT Impressions 01/29/2022 12:24 PM CDT IMPRESSION: ??No mammographic evidence of malignancy. RECOMMENDATION: Routine 1 Year Screening ?? OVERALL ASSESSMENT: (1) Negative. In the absence of clinical findings routine screening mammography is advised. > Interpreting Provider: Rosemarie Jiménez MD on 01/29/2022 12:24 PM Narrative 01/29/2022 12:24 PM CDT EXAMINATION: DIGITAL MAMMO BILAT SCREENING W SMITH DATE: ??01/29/2022 HISTORY: ??Screening. COMPARISON: ??11/06/2020 TECHNIQUE: ??Bilateral synthetic 2-D (C-view) digital mammogram images and bilateral digital breast tomosynthesis were obtained in the craniocaudal and mediolateral oblique projections. ??Computer-aided detection (CAD) was utilized. BREAST PARENCHYMAL COMPOSITION: Category C: The breasts are heterogeneously dense which may obscure small masses. FINDINGS: ??No suspicious microcalcifications, focal dominant masses, or areas of architectural distortion on mammography. ?? Lesli Dan MD MAMMO ORDERABLES documented in this encounter Visit Diagnoses Diagnosis Family history of breast cancer Family history of malignant neoplasm of breast Dense breasts Inconclusive mammogram Increased risk of breast cancer Other specified personal history presenting hazards to health Breast cancer screening by mammogram documented in this encounter
--- OUTSIDE RECORDS SUMMARY | 2024-04-13 08:31 | XMS_ITS | Encounter Summary ---
Author Organization [facility] Address [address] [place] [address] Care Team Providers Care Senior Supply Chain Analyst Name Role Phone Betty Alonso MD Primary Care Provider Reason for Referral * Radiology Services (Routine) - Closed Specialty Diagnoses / Procedures Referred By Contac t Referred To Contact Diagnoses Family history of breast cancer Dense breasts Increased risk of breast cancer Breast cancer screening by mammogram Procedures MAMMO BILAT SCREENING W SMITH MAMMO BILAT SCREENING Lesli Dan MD [address] [place] [phone] Referral ID Status Reason Start Date Expiration Date Visits Re quested Visits Authorized [id number] Closed 10/10/2021 10/10/2022 1 1 Reason for Visit * Reason Comments Abnormal Imaging Right breast Positive Family History Fam hx breast ca ncer Encounter Details Date Type Department Care Team (Late st Contact Info) Description 12/17/2020 3:30 PM CDT Office Visit [facility] Breast Care - Surgery [address] [place] [id number] Lesli Dan MD [address] [place] [phone] Abnormal finding on breast imaging (Primary Dx); Family history of breast cancer; History of genetic counseling; Dense breasts; Increased risk of breast cancer; Non morbid obesity due to excess calories; [...] - Inhaled Oxygen Concentration - - Weight 79.4 kg (175 lb) 12/17/2020 3:31 PM CDT Height 160 cm (5' 3 ) 12/17/2020 3:31 PM CDT Body Mass Index 31 12/17/2020 3:31 PM CDT documented in this encounter Progress Notes * Lesli Dan MD - 12/17/2020 3:30 PM CDT CHIEF COMPLAINT: Family history of breast cancer; abnormal breast imaging HISTORY OF PRESENT ILLNESS: Hailee Tanner is a 65 year old female with family history of breast cancer. I am seeing her 12/17/2020 regarding abnormal breast imaging and family history of breast cancer. Shehad not noticed any breast concerns aside from the fact that she thought her left breast seemed larger than her right over the prior several years. Her sister had suggested she see me for another opinion regarding her abnormal mammogram and her family history of breast cancer. On 11/06/2020, [place] 3[place]. Comparison 09/28/2019. Dense. Asymmetry right breast middle depth superior on MLO view only. BI-RADS 0. On 11/27/2020, she had right diagnostic mammogram, [facility]. 3D. Dense. The asymmetry on the screening study completely effaces and is no longer visualized. BI-RADS 1. She has family history of breast cancer. Her sister, Abril Syed, is a patient of mine and had negative panel genetic testing. Abril previously indicated she was okay with sharing family history information in genetic testing information with Hailee. Hailee also put Abril on her privacy form. She is here today for evaluation. 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 First live , age 24. First [...] Osteoarthritis Obesity with a BMI of 31 Family history breast cancer PAST SURGICAL HISTORY: 1979, 1985 x2 1989 hysterectomy 01/17/2018 right knee arthroscopy, partial medial meniscectomy ALLERGIES: Codeine caused side effect of vomiting Oxycodone caused side effect of vomiting MEDICATIONS: Outpatient Medications Marked as Taking for the 12/17/20 encounter (Office Visit) with Lesli Dan MD Medication Sig ??? CALCIUM PO Take 1 tablet by mouth once daily ??? Cyanocobalamin 2000 MCG Take 2,000 mcg by mouth once daily ??? lisinopril-hydroCHLOROthiazide (PRINZIDE; ZESTORETIC) 20-12.5 MG tablet Take 1 tablet by mouth once daily ??? traZODone (DESYREL) 50 MG tablet Take [...] alcohol once per week FAMILY HISTORY: Details collected 12/17/2020 and are listed below: Her mother at age 78 after being diagnosed with??cervical??cancer in her 30s Her father at age 79 after being diagnosed with kidney cancer at age 75 that metastasized to the lungs. Her sister, Abril Syed (06/26/46) is living at age 74 and was diagnosed with right breast cancerat age 72.??Myriad MyRisk neg. My patient. She has 1 daughter and 1 son. Her paternal grandfather in his 70s after being diagnosed with??lung cancer in his 70s. Her paternal aunt, Vinita,?? in her 70s and??was diagnosed with??breast??cancer in her late 40s.?No children. There is no other known malignancy in the family. She has 1 brother, Bhupinder,??living at age 71. She has 1 daughter, Brenda, living at age 35. She has 1 son, gomez, living at age 41. Her maternal grandmother in her 20s of [...] Bilateral breast exam reveals large ptotic breasts. In the left breast, there are no dominant masses, skin changes, or nipple discharge. In the right breast, there are no dominant masses, skin changes, or nipple discharge. There is no adenopathy in either the cervical, supraclavicular, infraclavicular, bilateral axillary, or internal mammary regions. IMAGIN03/25/2018 bilateral screening mammogram.[facility]. 3D. Dense. BI-RADS 2 09/28/2019 bilateral screening mammogram. [facility]. Comparison 03/25/2018 [facility]. 3D. Dense. Scattered benign calcifications. BI-RADS 2 11/06/2020 bilateral screening mammogram. [facility]. 3D. Comparison 09/28/2019. Dense. Asymmetry right breast middle depth superior on MLO view only. BI-RADS 0 11/27/2020 right diagnostic mammogram, [facility]. 3D. Dense. The asymmetry on the screening study completely effaces and is no longer visualized. BI-RADS 1 PATHOLOGY: 06/05/2019 [facility] CDX BRCA with reflex to [facility] sent on patient's sister Abril Syed (06/26/46) (dan): BRCA neg, panel negative. [facility] panel genetic testing after 06/01/2018 includes: APC, ISSA, AXIN2, BARD1, BMPR1A, BRCA1, BRCA2, BRIP1, CDH1, CDK4, CDKN2A, CHEK2, EPCAM (large rearrangement only), GALNT12, GREM1, MLH1, MSH2, MSH3, MSH6, MUTYH, NBN, NTHL1, PALB2, PMS2, POLD1, POLE, PTEN, RAD51C, RAD51D, RNF43, ??RPS20, SMAD4, STK11, TP53. ASSESSMENT: Hailee Tanner is a 65 year old female with family history of breast cancer, increased risk breast cancer, with abnormal breast imaging. On exam, she had no concerning findings I personally reviewed her bilateral screening mammogram reports and images from 09/28/2019 and 11/06/2020. I personally reviewed her right diagnostic mammogram report and images from 11/27/2020 and reviewed these with [address] of the radiologist at the [facility]. I personally reviewed her CMP blood test results from 07/06/2018. I personally reviewed her sisters negative genetic testing results from 06/05/2019. 1) family history breast cancer: 2) increased risk breast cancer Her lifetime risk for developing breast cancer with the Maile model is 13% (0 biopsy), with the BRCAPRO model 10%, with the John model 4%, and with the Tyrer-Cuzick model 22% (version 8, dense). She meets criteria to consider high risk [...] Medicare, and she was concerned about potential cost so I did give her the code for breast MRI to see if she could get anywhere with finding out from her Medicare plan on whether this wouldbe covered or not. She is due for bilateral screening mammograms in October,. She will call the office if she decides to proceed with breast MRI with contrast. I gave her the code for MRI and she was going to try to check with her insurance, since we cannot preauthorize with Medicare. We discussed the option of risk reducing medications. Tamoxifen is an option for premenopausal and postmenopausal women, and raloxifene (Evista) is an option in postmenopausal women. Each of these has been associated with reducing the risk of developing breast cancer by 40% (raloxifene) to 50% (tamoxifen) in high-risk women, when taken for 5 years. In postmenopausal women, there is a 1-2% risk of uterine cancer and 1-2% risk of blood clot, but this was not seen in premenopausal women. Common side effects include hot flashes and night sweats, irregular menses, and vaginal dryness. She was interested in risk reducing medication. I gave her prescription for tamoxifen, 20 mg, 12/17/2020. 3) genetic counseling: Her sister had negative panel genetic testing with [facility]. Patient has personal risk for having BRCA [...] to co nsider supplemental MRI screening. 5) abnormal breast imaging. She had BI-RADS category 0 finding on her left breast on screening mammogram October,. She had right diagnostic mammogram 11/27/2020 that showed no persistent asymmetry, BI-RADS 1. We discussed that I reviewed her imaging with 1 of the radiologists at my location and weboth agree no persistent concerning findings. No specific follow-up needed for this. 6) obesity. Women who are overweight or obese have increased risk for developing breast cancer and increased risk for breast cancer recurrence, compared to normal weight women. Being overweight or obese also increases risk for surgical complications. PLAN: I will see her in 6 months. I gave her prescription for tamoxifen, 20 mg. I gave her the code for breast MRI and she will call the office if she wants to proceed with breastMRI with contrast. She is due for bilateral screening mammogram in October,, and I gave her an order for this. She did add her sister to her privacy form. Lesli Dan MD, FACS Breast Surgeon [facility] Cc: Dr. Huang Alonso (PCP) Dr. Ybarra (derm) documented in this encounter Plan of Treatment Not on file documented as of this encounter Results * MAMMO BILAT SCREENING [...] documented in this encounter Visit Diagnoses Diagnosis Abnormal finding on breast imaging- Primary Other (abnormal) findings on radiological examination of breast Family history of breast cancer Family history of malignant neoplasm of breast History of genetic counseling Dense breasts Inconclusive mammogram Increased risk of breast cancer Other specified personal history presenting hazards to health Non morbid obesity due to excess calories Breast cancer screening by mammogram Family history of breast cancer Family history of malignant neoplasm of breast Dense breasts Inconclusive mammogram Increased risk of breast cancer Other specified personal history presenting hazards to health Breast cancer screening by mammogram documented in this encounter Care Teams Senior Supply Chain Analyst Relationship Specialty Start Date End Date Betty Alonso MD [address] [place], [place] [id number] PCP - General 05/05/18 01/28/22 documented as of this encounter
--- OUTSIDE RECORDS SUMMARY | 2024-04-13 08:31 | XMS_ITS | Clinical Summary ---
Author Organization [facility] Address [address] [place] [address] Phone Care Team Providers Care Data Collection Interviewer Name Role Phone Bhargav Wilkes MD Primary Care Provider Encounters Date Type Department Care Team Description 03/29/2024 12:34 PM PULP AND PAPER TESTER - 03/29/2024 11:59 PM PULP AND PAPER TESTER [facility] [address] [place] [address] Bhargav Wilkes MD Discharge Disposition: Discharged to home or Selfcare 03/29/2024 Travel 03/27/2024 Travel from Last 3 Months Family History Medical History Relation Name Comments Breast Cancer Paternal Aunt Relation Name Status Comments Paternal Aunt Social History Tobacco Use Types Packs/Day Years Used Date Smoking Tobacco: Never Assessed Comments No Sex and Gender Information Value Date Recorded Sex Assigned at Not on file Legal Sex Female 8:55 PM CDT Gender Identity Not on file Sexual Orientation Not on file Plan of Treatment Health Maintenance Due Date Last Done Comments DEXA Bone Density 1955 Hepatitis C Virus (HCV) Screening 1955 Colonoscopy 2000 Colorectal Cancer Screening 2000 Cologuard 2005 Immunochemical Fecal Occult Blood 2005 Mammogram 03/29/2026 03/29/2024, 01/11, 01/29/2022, Additional history exists Respiratory Syncytial Virus (RSV) Immunization (Adult) (1 - 1-dose 75+ series) 2030 DTaP/Tdap/Td Immunization Discontinued 11/11/2013 TdaP Immunization Completed 11/11/2013 Pneumococcal Immunization (50+ years) Completed 05/04/2022 Pneumococcal Immunization Combined Discontinued 05/04/2022 Zoster Immunization Completed 05/04/2022, 2 Influenza Immunization Completed 4, 02/19/2023, 12/25/2021, Additional history exists SARS-COV-2 Immunization Completed 01/14/20 24, 02/19/2023, 12/25/2021, Additional history exists Hepatitis B Immunization Aged Out No longer eligible based on patient's age to complete this topic Meningococcal Immunization (ACWY) Aged Out No longer eligible based on patient's age to complete this topic Rotavirus Immunization Aged Out No lo nger eligible based on patient's age to complete this topic Procedures Procedure Name Priority Date/Time Associated Diagnosis Comments ERVIN SCREENING BILATERAL DIGITAL W CAD W SMITH Routine 03/29/2024 1:04 PM PULP AND PAPER TESTER Encounter for screening mammogram for breast cancer from Last 3 Months Results * ERVIN SCREENING BILATERAL DIGITAL W CAD W SMITH (03/29/2024 1:04 PM PULP AND PAPER TESTER) Anatomical Region Laterality Modality breast Bilateral Mammography 03/29/2024 1:03 PM PULP AND PAPER TESTER Narrative 03/30/2024 10:01 AM PULP AND PAPER TESTER - ERVIN SCREENING BILATERAL DIGITAL W CAD [...] to exams dated: ??11/06/2020, 09/28/2019, [facility]. ?? BREAST TISSUE:The breasts are heterogeneously [...] Ian Celis M.D. ? ll/penrad:03/29/2024 16:29:25 ?? Systems Test Technician(s): Georgie ?? RT Sage(Neftali)(Raul), [facility] letter sent: Normal Exam ?? Reading location: [...] to exams dated: 11/06/2020, 09/28/2019, and 03/25/2018 [facility]. BREAST TISSUE:The breasts are heterogeneously dense, which [...] signed by: Ian Celis M.D. ll/penrad:03/29/2024 16:29:25 Systems Test Technician(s): RT Mikhail(R)(M), [facility] letter sent: Normal Exam Reading location: [facility] BI-RADS: Category 1: Negative Bhargav Wilkes MD IMG MAMMO ORDERABLES Final R esult from Last 3 Months Insurance MEDICARE [facility] Care Teams Data Collection Interviewer Relationship Specialty Start Date End Date Bhargav Wilkes MD [address] [place] [id number] PCP - General Family Medicine 12/30/23
--- OUTSIDE RECORDS SUMMARY | 2024-04-13 08:31 | XMS_ITS | Encounter Summary ---
Author Organization [facility] Address [address] [place] [address] Care Team Providers Care Security Operations Center Operator Name Role Phone Unavailable Primary Care Provider Unavailabl e Reason for Visit * Reason Onset Date Comments Results 01/29/2022 mammogram Encounter Details Date Type Department Care Team (Late st Contact Info) Description 01/29/2022 Telephone [facility] Breast Care - Surgery [address] [place] [address] [place] [id number] Lesli Dan MD [address] [place] [phone] Results (mammogram) Social History Tobacco Use Types Packs/Day Years [...] encounter Miscellaneous Notes * Telephone Encounter - Marline Sherman - 01/29/2022 1:12 PM CDT Patient given mammogram results/recommendation for follow-up at visit with Dr. Dan today. * Telephone Encounter - Marline Sherman - 01/29/2022 1:12 PM CDT ----- Message from Lesli Dan MD sent at 01/29/2022 12:59 PM CDT ----- Will you let her know mamm was fine, due again in one year. She is scheduled to see me today. documented in this encounter Plan of Treatment Not on file documented as of this encounter Visit Diagnoses Not on filedocumented in this encounter
--- OUTSIDE RECORDS SUMMARY | 2024-04-13 08:31 | XMS_ITS | Patient Health Summary ---
Author Organization [facility] Address [address] [place] [address] Care Team Providers Care History Department Chair Name Role Phone Unavailable Primary Care Provider Unavailabl e Note from [facility],non-owned Affiliates and Associated Physician Practices is amultiple site organization consisting of ambulatory clinics and hospital sitesin [place], [place] and [place]. This disclosure is being madepursuant to the Care Everywhere program and may not contain all information available regarding this patient. Last updated 17.[facility] Allergies * Codeine(Nausea and/or Vomiting) -Low Criticality * Oxycodone(Nausea and/or Vomiting) Medications * Be aware that medications may not be up to date on this document. Alwaysverify current medications with the patient. * vitamin D3 (CHOLECALCIFEROL) 125 MCG (5000 UT) capsule Take 5,000 Units by mouth once daily * Cyanocobalamin 2000 MCG Take 2,000 mcg by mouth once daily * traZODone (DESYREL) 50 MG tablet(Started 07/22/2020) Take 50 mg by mouth nightly as needed * polyethylene glycol 3350 (Miralax) 17 GM/SCOOP powder(Started 09/01/2021) * pantoprazole EC (Protonix) 40 MG tablet(Started 12/21/2021) Take 40 mg by mouth every morning * gabapentin (Neurontin) 100 MG capsule(Started 12/22/2021) Take 200 mg by mouth 3 times daily Total of 900 mg daily * diazePAM (Valium) 5 MG tablet(Started 12/24/2021) Take 5 mg by mouth once daily as needed * baclofen (Lioresal) 10 MG tablet(Started 11/10/2021) Take 20 mg by mouth * CRANBERRY FRUIT PO Take 1 tablet by mouth once daily * MAGNESIUM PO Active Problems Problem Noted Date Diagnosed Date Family history of breast cancer Social History Tobacco Use Types Packs/Day Years [...] on file Sexual Orientation Not on file Last Filed Vital Signs Vital Sign Reading Time Taken Comments Blood Pressure - - Pulse - - Temperature - - Respiratory Rate - - Oxygen Saturation - - Inhaled Oxygen Concentration - - Weight 81.6 kg (180 lb) 01/29/2022 12:57 PM CDT Height 161.3 cm (5' 3.5 ) 01/29/2022 12:57 PM CD T Body Mass Index 31.39 01/29/2022 12:57 PM CDT Procedures * MAMMO BILAT SCREENING W SMITH(Performed 01/29/2022) Performed for Family history of breast cancer, Dense breasts, Increased risk of breast cancer, Breast cancer screening by mammogram * MAMMOGRAM(Performed 11/27/2020) * MAMMOGRAPHY ORDER(Performed 11/06/2020) * MAMMOGRAPHY ORDER(Performed 09/28/2019) * MAMMOGRAPHY ORDER(Performed 03/25/2018) * MAMMOGRAPHY ORDER(Performed 09/24/2015) Results * MAMMO BILAT SCREENING W SMITH [...] mammography. ?? Lesli Dan MD MAMMO ORDERABLES * MAMMOGRAM (11/27/2020) Anatomical Region Laterality Modality Other 11/27/2020 Narrative 11/27/2020 Ordered by an unspecified provider. Scanned Document SCANNING ONLY * MAMMOGRAPHY ORDER (11/06/2020) Only the most recent of4 resultswithin the time period is included. Anatomical Region Laterality Modality Mammography Scanned Document MAMMO ORDERABLES
--- OUTSIDE RECORDS SUMMARY | 2024-04-13 08:31 | XMS_ITS | Encounter Summary ---
Author Organization [facility] Address [address] [place] [address] Care Team Providers Care Silverer Name Role Phone Unavailable Primary Care Provider Unavailabl e Reason for Visit * Reason Onset Date Comments Reminder Call 01/14/2023 Mammogram Encounter Details Date Type Department Care Team (Late st Contact Info) Description 01/14/2023 Telephone [facility] Breast Care - Surgery [address] [place] [address] [place] [phone] [place] [address] [place] [address] [place] [phone] Reminder Call (Mammogram ) Social History Tobacco Use Types Packs/Day Years [...] Telephone Encounter - Kathie Byrd MA - 01/14/2023 3:59 PM CDT I left a message for Hailee reminding her she is due for her screening mammogram. Scheduling information provided. documented in this encounter Plan of Treatment Not on file documented as of this encounter Visit Diagnoses Not on filedocumented in this encounter
--- OUTSIDE RECORDS SUMMARY | 2024-04-13 08:31 | XMS_ITS | Encounter Summary ---
Author Organization [facility] Address [address] [place] [address] Phone Care Team Providers Care Pipe Organ Builder Name Role Phone Huang Alonso MD Primary Care Provider [phone] Reason for Referral * Radiology Services (Routine) - Closed Specialty Diagnoses / Procedures Referred By Contac t Referred To Contact Radiology Diagnoses Other abnormal and inconclusive findings on diagnostic imaging of breast Procedures ERVIN DIAG RIGHT UNILATERAL DIGITAL W CAD W SMITH ERVIN DIAG RIGHT DIGITAL W CAD Huang Alonso MD [address] [place] [address] Phone: tel: fax: Referral ID Status Reason Start Date Expiration Date Visits Re quested Visits Authorized [id number] Closed 11/12/2020 1 1 Encounter Details Date Type Department Care Team (Late st Contact Info) Description 11/12/2020 Transcribe Orders [facility] Scheduling [address] [place] [address] Huang Alonso MD [address] [place] [address] Other abnormal and inconclusive findings on diagnostic imaging of breast (Primary Dx) Social History Tobacco [...] as of this encounter Results * ERVIN DIAG RIGHT [...] copy. Current study was also evaluated with [employer] version 7.2. 2D digital mammographic views, as well as 3D digital tomosynthesis were performed in the CC and MLO projections. ?? CLINICAL: Diagnostic study. Patient returns to evaluate an asymmetry in the right breast. Sister and paternal aunt with breast cancer. ?? COMPARISONS: Comparison is made to exams dated: ??11/06/2020, 03/25/2018, and 09/28/2019 [facility]. ?? BREAST TISSUE:The tissue of right breast [...] Ramona Alvarado M.D. ? ab/:11/27/2020 08:44:18 ?? Family Lawyer(s): Georgie ?? RT Sage(R)(M), [facility] letter sent: Normal Exam ?? Reading location: [facility] BI-RADS: 1 Negative Procedure Note Ramona Alvarado [...] to exams dated: 11/06/2020, 03/25/2018, and 09/28/2019 [facility]. BREAST TISSUE:The tissue of right breast is [...] or will be contacted. Electronically signed by: Ramnoa Alvarado M.D. ab/:11/27/2020 08:44:18 Family Lawyer(s): SOPHIA ElizondoR)(M), [facility] letter sent: Normal Exam Reading location: [facility] BI-RADS: 1 Negative us Huang Alonso MD IMG MAMMO ORDERABLES Final Result documented in this encounter Visit Diagnoses Diagnosis Other abnormal and inconclusive findings on diagnostic imaging of breast- Primary Other abnormal and inconclusive findings on diagnostic imaging of breast documented in this encounter Care Teams Pipe Organ Builder Relationship Specialty Start Date End Date Huang Alonso MD [address] [place] [address] PCP - General Family Medicine 08/29/15 12/29/23 documented as of this encounter
--- OUTSIDE RECORDS SUMMARY | 2024-04-13 08:31 | XMS_ITS | Clinical Summary ---
Author Organization [facility] Address [address] [place] [address] Care Team Providers Care Bone Cooking Operator Name Role Phone Unavailable Primary Care Provider Unavailabl e Source Comments [facility],non-owned Affiliates and Associated Physician Practices is amultiple site organization consisting of ambulatory clinics and hospital sitesin [place], [place], [place] and [place]. This disclosure is being madepursuant to the Care Everywhere program and may not contain all information available regarding this patient. Last updated [email or web address] Allergies Active Allergy Reactions Criticality Noted Date Comments Codeine Nausea and/or Vomiting Low 10/15/2017 Oxycodone Nausea and/or Vomiting 12/17/2020 Medications * Be aware that medications may not be up to date on this document. Alwaysverify current medications with the patient. Medication Sig Dispensed Refills Start Date End Date Status vitamin D3 (CHOLECALCIFEROL) 125 MCG (5000 UT) capsule Take 5,000 Units by mouth once daily Active Cyanocobalamin 2000 MCG Take 2,000 mcg by mouth once daily Active traZODone (DESYREL) 50 MG tablet Take 50 mg by mouth nightly as needed 07/22/2020 Active polyethylene glycol 3350 (Miralax) 17 GM/SCOOP powder 09/01/2021 Active pantoprazole EC (Protonix) 40 MG tablet Take 40 mg by mouth every morning 12/21/2021 Active gabapentin (Neurontin) 100 MG capsule Take 200 mg by mouth 3 times daily Total of 900 mg daily 12/22/2021 Active diazePAM (Valium) 5 MG tablet Take 5 mg by mouth once daily as needed 12/24/2021 Active baclofen (Lioresal) 10 MG tablet Take 20 mg by mouth 11/10/2021 Active CRANBERRY FRUIT PO Take 1 tablet by mouth once daily Active MAGNESIUM PO Active Active Problems Problem Noted Date Diagnosed Date Family history of breast cancer Overview (01/29/2022): Lifetime risk for developing breast cancer is predicted to be: recalculated 01/2022 12 % with the Maile model, (0 biopsies) 21 % with the Tyrer-Cuzick model, (version 8, dense, sister BRCA negative) (if scattered densities, 14%) 4 % with the John model, and 7 % with the BRCAPRO model. High risk screening recommendations: 1) yearly mammograms, and 2) yearly breast MRI with contrast. Pt declined Consider risk reducing tamoxifen (pre- or postmenopausal) or raloxifene (Evista) (postmenopausal) for 5 years. Had hysterectomy. Tamoxifen, 20 mg, started 12/17/2020. 01/29/21: pt said having horrible joint pain and terrible night sweats. has been on [employer] for quite awhile and since starting the tamoxifen she has gained 5 pounds in the last month. recommended holding tamoxifen 2 weeks and if those side effects resolve then could try 5 mg. Decided against resuming. Her personal risk for having a BRCA mutation is less than 3 %. 06/05/2019 [employer] CDX BRCA with reflex to [employer] Antonette sent on patient's sister Abril Syed (06/26/46) (judit): BRCA neg, panel negative. [employer] panel genetic testing after 06/01/2018 includes: APC, ISSA, AXIN2, BARD1, BMPR1A, BRCA1, BRCA2, BRIP1, CDH1, CDK4, CDKN2A, CHEK2, EPCAM (large rearrangement only), GALNT12, GREM1, MLH1, MSH2, MSH3, MSH6, MUTYH, NBN, NTHL1, PALB2, PMS2, POLD1, POLE, PTEN, RAD51C, RAD51D, RNF43, ??RPS20, SMAD4, STK11, TP53. Family History Medical History Relation Name Comments Cancer - Lung Father Cancer - Renal Father Cancer - Other Mother Unknown type female cancer Cancer - Breast Paternal Aunt Vinita in her 70s Cancer - Lung Paternal Grandfather i n his 70s Cancer - Breast Sister Abril Syed Myriad MyR isk neg. [place] pt Relation Name Status Comments Brother Patricio Father Maternal Grandfather Maternal Grandmother Mother Paternal Aunt Vinita Alive Paternal Grandfather Paternal Grandmother Sister Abril Syed Alive Social History Tobacco Use Types Packs/Day Years [...] Mass Index 31.39 01/29/2022 12:57 PM CDT Plan of Treatment Health Maintenance Due Date Last Done Comments BONE DENSITY TESTING 1955 COLOGUARD (AGES 45-75) - COLON CA SCREENING 1955 COLON MONITORING 1955 COLONOSCOPY - COLON CA SCREENING 1955 CT COLONOGRAPHY - COLON CA SCREENING 1955 Colorectal Cancer Screening 1955 FIT - COLON CA SCREENING 1955 FLEX SIG - COLON CA SCREENING 1955 LIPID TESTING 1955 MEDICARE AWV ? 12 MONTHS 1955 HEPATITIS C SCREENING 04/04/1973 DTAP/TDAP/TD VACCINES (1 - Tdap) 1974 ZOSTER VACCINE (1 of 2) 2005 PNEUMOCOCCAL VACCINE 65+ (1 of 1 - PCV) 2020 SCREENING FOR DIABETES 01/29/2022 DEPRESSION SCREENING 04/12/2023 COVID-19 VACCINE (4 - 2023- season) 2023 02/14/2021, 06/16/2020, 05/25/2020 INFLUENZA VACCINE (#1) 2023 MAMMOGRAM 01/30/2024 01/29/2022, 11/10, 11/06/2020, Additional history exists Respiratory Syncytial Virus (RSV) Vaccine Pt: or over 60 yrs (1 - 1-dose 75+ series) 2030 HEPATITIS B VACCINE Aged Out No longe r eligible based on patient's age to complete this topic HIB VACCINE Aged Out No longer eligi ble based on patient's age to complete this topic HPV VACCINE Aged Out No longer eligi ble based on patient's age to complete this topic MENINGOCOCCAL VACCINE Aged Out No osvaldo sg eligible based on patient's age to complete this topic Procedures Procedure Name Priority Date/Time Associated Diagnosis Comments MAMMO BILAT SCREENING W SMITH Routine 01/29/2022 12:10 PM CDT Family history of breast cancer Dense breasts Increased risk of breast cancer Breast cancer screening by mammogram from Last 3 Months or Most Recently Relevant to Health Maintenance Results * MAMMO BILAT SCREENING W SMITH [...] of architectural distortion on mammography. ?? Lesli Spain MD MAMMO ORDERABLES from Last 3 Months or Most Recently Relevant to Health Maintenance Hailee Tanner Personal/Family Self 1955 [address] [id number]
--- OUTSIDE RECORDS SUMMARY | 2024-04-13 08:31 | XMS_ITS | Encounter Summary ---
Author Organization [facility] Address [address] [place] [address] Care Team Providers Care Fitting Room Attendant Name Role Phone Betty Alonso MD Primary Care Provider [phone] Encounter Details Date Type Department Care Team (Late st Contact Info) Description 12/17/2020 Orders Only [facility] Breast Care - Surgery [address] [place] [address] [place] [phone] Lesli Dan MD [address] [place] [address] [place] [phone] Family history of breast cancer Social History [...] Family history of malignant neoplasm of breast documented in this encounter Care Teams Fitting Room Attendant Relationship Specialty Start Date End Date Betty Alonso MD [address] [place] [address] PCP - General 05/05/18 01/28/22 documented as of this encounter
--- OUTSIDE RECORDS SUMMARY | 2024-04-13 08:31 | XMS_ITS | Encounter Summary ---
Author Organization [facility] Address [address] [place] [address] Phone Care Team Providers Care Energy Operations Vice President Name Role Phone Huang Alonso MD Primary Care Provider [phone] Reason for Visit * Radiology Services (Routine) - Closed Specialty Diagnoses / Procedures Referred By Darlene t Referred To Contact Radiology Diagnoses Encounter for screening mammogram for malignant neoplasm of breast Procedures ERVIN SCREENING BILATERAL DIGITAL W CAD W SMITH ERVIN SCREENING BILATERAL DIGITAL W CAD Huang Alonso MD [address] [place] [address] Phone: tel: fax: Referral ID Status Reason Start Date Expiration Date Visits Re quested Visits Authorized [id number] Closed 08/07/2019 1 1 Encounter Details Date Type Department Care Team (Latest Contact Info) Description 09/28/2019 11:30 AM CDT - 09/28/2019 11:59 PM CDT Hospital Encounter [facility] Mammography [address] [place] [id number] Huang Alonso MD [address] [place] [address] Discharge Disposition: Discharged to home or Selfcare [...] BILATERAL DIGITAL W CAD W SMITH Routine 09/28/2019 12:02 PM CDT Encounter for screening mammogram for malignant neoplasm of breast documented in this encounter Results * ERVIN SCREENING BILATERAL DIGITAL W CAD W SMITH (09/28/2019 12:02 PM CDT) Anatomical Region Laterality Modality breast Bilateral Mammography 09/28/2019 11:3 3 AM CDT Narrative 09/29/2019 8:44 AM CDT - ERVIN SCREENING BILATERAL DIGITAL W CAD W SMITH BILATERAL DIGITAL SCREENING MAMMOGRAM 3D/2D WITH CAD WITH MEDIOLATERAL OBLIQUE CRANIOCAUDAL: 09/28/2019 The study was acquired using digital technology and interpreted from soft copy. ?? Current study was also evaluated with ICAD version 7.2. ?? CLINICAL: Routine screening. Patient has no complaints. No personal history of cancer. Sister and paternal aunt had breast cancer. ?? COMPARISONS: Comparison is made to exams dated: ??03/25/2018 [facility], 02/13/2017 [facility], and 09/24/2015 [facility]. ?? BREAST TISSUE:The tissue of both breasts is heterogeneously dense. This may lower the sensitivity of mammography. ?? FINDINGS: There are benign scattered calcifications in both breasts. No significant masses, calcifications, or other findings are seen in either breast. ?? There has been no significant interval change. IMPRESSION: BI-RAD 2 ??BENIGN There is no mammographic evidence of malignancy. A 1 year screening mammogram is recommended. ?? The patient has been or will be contacted. ?? The patient will be entered into a reminder system with a target due date of 1 year for her next screening exam. Electronically signed by: Ian Celis M.D. ? ll/penrad:09/28/2019 15:28:00 ?? Telecommunication Engineer: Rosa Farris RT(R)(M), [facility] letter sent: Normal Exam ?? Reading location: [place] BI-RADS: 2 Benign Procedure Note Ian Celis MD - 09/29/2019 - ERVIN SCREENING BILATERAL DIGITAL W CAD W SMITH BILATERAL DIGITAL SCREENING MAMMOGRAM 3D/2D WITH CAD WITH MEDIOLATERAL OBLIQUE CRANIOCAUDAL: 09/28/2019 The study was acquired using digital technology and interpreted from soft copy. Current study was also evaluated with ICAD version 7.2. CLINICAL: Routine screening. Patient has no complaints. No personal history of cancer. Sister and paternal aunt had breast cancer. COMPARISONS: Comparison is made to exams dated: 03/25/2018 [facility], 02/13/2017 [facility], and 09/24/2015 [facility]. BREAST TISSUE:The tissue of both breasts is heterogeneously dense. This may lower the sensitivity of mammography. FINDINGS: There are benign scattered calcifications in both breasts. No significant masses, calcifications, or other findings are seen in either breast. There has been no significant interval change. IMPRESSION: BI-RAD 2 BENIGN There is no mammographic evidence of malignancy. A 1 year screening mammogram is recommended. The patient has been or will be contacted. The patient will be entered into a reminder system with a target due date of 1 year for her next screening exam. Electronically signed by: Ian Celis M.D. ll/penrad:09/28/2019 15:28:00 Telecommunication Engineer: Rosa CARVAJAL(R)(M), [facility] letter sent: Normal Exam Reading location: [place] BI-RADS: 2 Benign Huang Alonso MD IMG MAMMO ORDERABLES Final Result documented in this encounter Visit Diagnoses Diagnosis Encounter for screening mammogram for malignant neoplasm of breast Other screening mammogram documented in this encounter Care Teams Energy Operations Vice President Relationship Specialty Start Date End Date Huang Alonso MD [address] [place] [address] PCP - General Family Medicine 08/29/15 12/29/23 documented as of this encounter
--- OUTSIDE RECORDS SUMMARY | 2024-04-13 08:31 | XMS_ITS | Referral Summary ---
Author Organization [facility] [facility] Address [address] [place] [address] Care Team Providers Care Substation Design Draftsperson Name Role Phone Unavailable Primary Care Provider Unavailabl e Source Comments [facility] [facility],non-owned Affiliates and Associated Physician Practices is amultiple site organization consisting of ambulatory clinics and hospital sitesin [place], [place], [place] and [place]. This disclosure is being madepursuant to the Care Everywhere program and may not contain all information available regarding this patient. Last updated [employer] Allergies Active Allergy Reactions Criticality Noted Date [...] mutation is less than 3 %. 06/05/2019 [employer] CDX BRCA with reflex to [employer] Antonette sent on patient's sister Abril Syed (06/26/46) (spain): BRCA neg, panel negative. [employer] panel genetic testing after 06/01/2018 includes: APC, ISSA, AXIN2, BARD1, BMPR1A, BRCA1, BRCA2, BRIP1, CDH1, CDK4, CDKN2A, CHEK2, EPCAM (large rearrangement only), GALNT12, GREM1, MLH1, MSH2, MSH3, MSH6, MUTYH, NBN, NTHL1, PALB2, PMS2, POLD1, POLE, PTEN, RAD51C, RAD51D, RNF43, ??RPS20, SMAD4, STK11, TP53. Social History Tobacco Use Types Packs/Day Years [...] 01/29/2022 12:57 PM CDT Plan of Treatment Not on file Procedures Procedure Name Priority Date/Time Associated Diagnosis [...] Maintenance Hailee Tanner Personal/Family Self 1955 [address] [place] [id number]
--- OUTSIDE RECORDS SUMMARY | 2024-04-13 08:32 | XMS_ITS | Clinical Summary ---
Author Organization [facility] Address [id number] [place] [phone] Care Team Providers Care Prop Drawer Name Role Phone Bhargav Wilkes MD Primary Care Provider Be Rangel DO Unavailable Allergies Active Allergy Reactions Criticality Noted Date Comments Codeine Stomach upset Low 10/15/2017 Oxycodone Nausea And Vomiting Low 12/17/2020 Medications cranberry fruit 400 mg tablet Take 1 tablet by mouth daily Active baclofen (LIORESAL) 10 mg tablet TAKE 2 TABLETS BY MOUTH 4 TIMES DAILY 03/10/20 22 Active polyethylene glycol (MIRALAX) 17 gram/dose powder 09/02/19 22 Active cholecalcifer ol (VITAMIN D-3) 1,000 unit capsule Take 1 capsule (1,000 Units total) by mouth daily Active cyanocobalami n (Vitamin B-12) 100 mcg tabletIndicat ions:Preventi on of Vitamin B12 Deficiency Take 1 tablet (100 mcg total) by mouth daily Active ascorbic acid (VITAMIN C) 500 mg tablet,chewab le Active folic acid (FOLVITE) 800 mcg tablet Take 0.5 tablets (400 mcg total) by mouth daily Active calcium carbonate-vit kwon D3 1,250 mg (500 mg elemental)-40 0 unit chewable tablet Take 1 tablet by mouth daily Active pregabalin (Lyrica) 75 mg capsule 2 (two) times a day Active docosahexaeno ic acid/epa (FISH OIL ORAL) Take by mouth Active furosemide (LASIX) 20 mg tablet Take 1 tablet (20 mg total) by mouth daily as needed Active pantoprazole DR (PROTONIX) 40 mg EC tablet Take 1 tablet (40 mg total) by mouth early childhood specialist before breakfast 90 tablet 1 08/30/19 24 Active Additional Information Patient taking differently:40 mg oral Daily (early AM),Taking as needed, Reported on 03/16/2024 amitriptyline (ELAVIL) 25 mg tablet TAKE 1 TABLET(25 MG) BY MOUTH DAILY AT BEDTIME 12/21/19 Active aspirin 81 mg enteric coated tablet Take 1 tablet (81 mg total) by mouth daily Active busPIRone (BUSPAR) 5 mg tabletIndicat ions:Generali zed Anxiety Disorder Take 1 tablet (5 mg total) by mouth 3 (three) times a day 90 tablet 1 03/31/20 24 025 Active phentermine 15 mg capsule TAKE 1 CAPSULE(15 MG) BY MOUTH EVERY MORNING 30 capsule 04/07/20 24 Active diazePAM (VALIUM) 5 mg tablet Take 1 tablet (5 mg total) by mouth nightly as needed 03/31/20 24 Active magnesium oxide (MAG-OX) 250 mg (150.8 mg elemental) tabletIndicat ions:hypomagn esemia 1 tablet (250 mg total) daily 024 Discontinued(Ty crocker Reported) NOT IN DATABASE, PRESCRIPTION, Drug name: ary Route: oral Frequency 024 Discontinued(Ty crocker Reported) phentermine 15 mg capsule TAKE 1 CAPSULE(15 MG) BY MOUTH EVERY MORNING 30 capsule 02/23/20 24 024 Discontinued Active Problems Problem Noted Date Diagnosed Date Anxiety 04/10/2024 Stage 3a chronic kidney disease 04/10/2024 Adnexal mass 04/10/2024 Class 2 obesity with alveola r hypoventilation, serious comorbidity, and body mass index (BMI) of 39.0 to 39.9 in adult 01/04/2024 Overview (01/04/2024): improving continuing phentermine Assessment & Plan (01/04/2024 1:38 PM CDT): BMI Follow-up includes: nutrition counseling, exercise counseling, and education provided. 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 HTN (hypertension) 04/15/2022 Neurological deficit present 04/15/2022 Urinary retention 04/15/2022 Medicare annual wellness visit, initial 04/15/19 23 Assessment & Plan (06/30/2023 2:20 PM CDT): A(n) yearly Medicare Annual Wellness Visit has been performed today. Hailee Tanner is not up to date on screening tests. She is in need of DEXA and Breast cancer screening. She is up to date on needed preventative vaccinations. We discussed healthy lifestyle habits, educational material has been given. Medications reviewed, changes documented as per the medical record and discussed with patient along with risks vs benefits. Return in 6 months Assessment & Plan (04/15/2022 2:10 PM MUTUAL FUND ANALYST): A(n) initial Medicare Annual Wellness Visit has been performed today. Hailee Tanner is not up to date on screening tests. She is in need of DEXA, Breast cancer screening, Colon cancer screening and Cholesterol screening- mammogram done last month. She is not up to date on needed preventative vaccinations; She is in need of Pneumonia (Prevnar-13 or Pneumovax-23) and Zoster. She has received her first Zoster dose; will not be able to get here due to medicare preference Insomnia- due to worry. Will consider anxiolytic (venlafaxine was concerning for interaction with baclofen). Might try ashwagandha for anxiety, may be helpful Labs pending Will continue current regimen otherwise Bone density, colonoscopy referral ordered Pneumonia vaccination today Cervical spondylosis with radiculopathy 02/13/20 21 Cord compression 02/12/2021 Neck pain 02/12/2021 Resolved Problems Problem Noted Date Diagnosed Date Resolved Date Dehydration 08/11/2023 04/10/2024 Assessment & Plan (08/11/2023 3:19 PM CDT): possibly viral sequelae; some features that might be concerning for meningeal irritation, though negative meningeal signs makes that unlikely Considered labs today, but she is having some difficulty staying awake; fatigue is elevated. Given her decreased function, sending to ER Transport with daughter. Hailee preferred [facility]. Hyponatremia 04/15/2022 04/10/2024 Acute medial meniscus tear of right knee 01/06/2018 06/30/2023 Overview (01/06/2018): Added automatically from request for surgery [id number] Encounters Date Type Department Care Team Description 04/11/2024 Telephone [facility] Medical Group Primary Care at [address] [phone] Bhargav Wilkes MD 04/07/2024 1:19 PM MUTUAL FUND ANALYST - 04/07/2024 11:59 PM MUTUAL FUND ANALYST Hospital Encounter [facility] [address] [place] [phone] Cervical spondylosis with radiculopathy; H/O spinal fusion Discharge Disposition: Discharge to home or self care 04/07/2024 1:19 PM MUTUAL FUND ANALYST - 04/07/2024 11:59 PM MUTUAL FUND ANALYST Hospital Encounter [facility] [address] [place] [phone] Cervical spondylosis with radiculopathy; H/O spinal fusion Discharge Disposition: Discharge to home or self care 04/07/2024 1:15 PM MUTUAL FUND ANALYST - 04/07/2024 11:59 PM MUTUAL FUND ANALYST Hospital Encounter [facility] [address] [place] [phone] Cervical spondylosis with radiculopathy; H/O spinal fusion Discharge Disposition: Discharge to home or self care 04/07/2024 Telephone [facility] Orthopaedic Surgery [address] [place] [address] [facility] 6th [place] [address] [place] [address] Jarad Couch Jr., MD 04/07/2024 Orders Only [facility] Medical Group Primary Care at [address] [phone] Jarad Couch Jr., MD Cervical spondylosis with radiculopathy; H/O spinal fusion 03/31/2024 Telephone [facility] Medical Group Primary Care at [address] [phone] Bhargav Wilkes MD Med Refill 03/30/2024 Orders Only [facility] Medical Group Primary Care at [address] [phone] Bhargav Wilkes MD Breast cancer screening by mammogram 03/16/2024 2:00 PM MUTUAL FUND ANALYST Office Visit [facility] Orthopaedic Surgery [address] [place] [address] Medical Office Building [address] [place] [address] Jarad Couch Jr., MD Cervical spondylosis with radiculopathy (Primary Dx); H/O spinal fusion 03/16/2024 12:58 PM MUTUAL FUND ANALYST - 03/16/2024 11:59 PM MUTUAL FUND ANALYST Hospital Encounter [facility] [address] [place] [address] [address] [place] [address] Cervical spondylosis with radiculopathy Discharge Disposition: Discharge to home or self care 03/01/2024 6:08 PM MUTUAL FUND ANALYST - 03/01/2024 11:59 PM MUTUAL FUND ANALYST Hospital Encounter [facility] [address] [place] [phone] Discharge Disposition: Discharge to home or self care 02/28/2024 Orders Only [facility], Provider 02/25/2024 Telephone [facility] Orthopaedic Surgery [address] [place] [address] Medical Office Building [address] [place] [address] Jarad Couch Jr., MD Scheduling Appointments from Last 3 Months Immunizations Name Administration Dates Next Due Influenza, Quad, Adjuvantated, Intramuscular 01/2023,02/13/2021 Influenza, Quadrivalent, [place] l Culture-based MDCK, Preservative Free, Antibiotic Free, Intramuscular 03/20/2019 Influenza, Quadrivalent, Hig h Dose, Preservative Free, Intrr 12/25/2021 Influenza, Quadrivalent, Rec ombinant, Egg Free, Preservative Free, Intramuscular 01/30/2020 Influenza, Quadrivalent, Spl it, Preservative Free, Intramuscular 02/15/2018,02/14/2018 Influenza, Trivalent, IM (MDV) 01/24/2014 Influenza, Trivalent, Preservative Free, Intramu scular 01/23/2015 Pneumococcal Conjugate Pcv20 05/04/2022 Tdap 11/11/2013 ZOSTER Recombinant 05/04/2022,12/25/2021 Surgical History Surgery Date Site/Laterality Comments HYSTERECTOMY 04/12/1987 - 04/11/1988 SECTION x2 KNEE ARTHROSCOPY BACK SURGERY 03/12/2021 - 04/11/2021 NECK SURGERY SPINE SURGERY 03/13/2021 Medical History Medical History Date Comments Hypertension well controlled with meds Myocardial infarction (HCC) 2007 poss ibly, per patient, told per EKG. Not followed by MD--no f/u indicated per pt--this was done in an ER Acute bronchitis 10/2017 resolved with a ntibiotics Hiatal hernia GERD (gastroesophageal reflux disease) NOT very well controlled with meds, still trying to control Hoarseness of voice lasted for 3 months, ENT told patient thought it was secondary to reflux Anxiety Arthritis knee--right PONV (postoperative nausea a nd vomiting) Family History Medical History Relation Name Comments Hypertension Brother Bhupinder Diabetes Daughter COPD Father Jhonathan Cancer Father Jhonathan Hypertension Father Jhonathan Kidney disease Father Jhonathan Arthritis Mother Rosanna COPD Mother Rosanna Cancer Mother Rosanna Diabetes Mother Rosanna Hypertension Mother Rosanna Irritable bowel syndrome Mother Rosanna Diabetes Sister Abril Hypertension Sister Abril Relation Name Status Comments Brother Bhupinder Daughter Father Jhonathan Mother Rosanna Sister Abril Alive Social History Tobacco Use Types Packs/Day Years Used Date Smoking Tobacco: Former Cigarettes 0.5 7.7 0 04/12/1980 - 01/11/1988 Smokeless Tobacco: Never Tobacco Cessation:Counseling Given: Not Answered AUDIT-C Answer Date Recorded Q1: How often do you have a drink containing alc ohol? 2-4 times a month 03/16/2024 Q2: How many drinks containi ng alcohol do you have on a typical day when you are drinking? 1 or 2 03/16/2024 Q3: How often do you have si x or more drinks on one occasion? Never 03/16/2024 PHQ-2 Answer Date Recorded PHQ-2 Total Score (If total score is 3 or more points, staff should administer the PHQ-9) 0 01/04/2024 Comments Unknown Sex and Gender Information Value Date Recorded Sex Assigned at Not on file Legal Sex Female 1:00 AM MUTUAL FUND ANALYST Gender Identity Not on file Sexual Orientation Not on file Obstetrics History Last Filed Vital Signs Vital Sign Reading Time Taken Comments Blood Pressure 124/80 01/04/2024 1:21 PM CDT Pulse 75 01/04/2024 1:21 PM CDT Temperature 36.2 ??C (97.1 ??F) 01/04/2024 1:21 PM CD T Respiratory Rate 16 01/04/2024 1:21 PM CDT Oxygen Saturation 96% 01/04/2024 1:21 PM CDT Inhaled Oxygen Concentration - - Weight 99.8 kg (220 lb) 01/04/2024 1:21 PM CDT Height 160 cm (5' 3 ) 01/04/2024 1:21 PM CDT Body Mass Index 38.97 01/04/2024 1:21 PM CDT Plan of Treatment Health Maintenance Due Date Last Done Comments Hepatitis B Screening 1973 Covid-19 Vaccine ( season) 2023 02/19/2023, 12/25/2021, 02/14/2021, Additional history exists Influenza Vaccine (#1) 2023 , 12/25/2021, 02/13/2021, Additional history exists Well Visit 65+ 06/29/2024 06/30/2023, 04/15/2022 Fall Risk Assessment 08/10/2024 08/11/2023, 06/30/2023, 12/30/2022, Additional history exists Depression Screening 01/03/2025 01/04/2024, 08/11/2023, 06/30/2023, Additional history exists Breast Cancer Screening-Mammogram 03/29/2025 03/29/2024, 03/29/2024, 01/29/2022, Additional history exists DTaP/Tdap/Td Vaccine (2 - Td or Tdap) 04/11/2025 11/11/2013 Postponed from 11/12/2023 (Insurance / Financial) Colon Cancer Screening-DNA Stool 07/09/2025 07/09/2022 Osteoporosis Screening-Bone Density Scan 01/05/2026 01/06/2024 Hepatitis C Screening Completed 04/15/2022 Pneumococcal vaccine 65+ Completed 05/04/2022 Zoster Vaccine Completed 05/04/2022, 12/25/2021 Colon Cancer Screening-FIT Discontinued 07/09/2022 Procedures Procedure Name Priority Date/Time Associated Diagnosis Comments MRI LUMBAR SPINE WO CONTRAST Schedule Routine, Read Routine (OP Routine) 04/07/2024 2:48 PM MUTUAL FUND ANALYST Cervical spondylosis with radiculopathy H/O spinal fusion MRI THORACIC SPINE WO CONTRAST Schedule Routine, Read Routine (OP Routine) 04/07/2024 2:34 PM MUTUAL FUND ANALYST Cervical spondylosis with radiculopathy H/O spinal fusion MRI CERVICAL SPINE WO CONTRAST Schedule Routine, Read Routine (OP Routine) 04/07/2024 2:22 PM MUTUAL FUND ANALYST Cervical spondylosis with radiculopathy H/O spinal fusion CT THORACIC SPINE WO CONTRAST Schedule Routine, Read Routine (OP Routine) 04/06/2024 Cervical spondylosis with radiculopathy H/O spinal fusion CT LUMBAR SPINE WO CONTRAST Schedule Routine, Read Routine (OP Routine) 04/06/2024 Cervical spondylosis with radiculopathy H/O spinal fusion CT CERVICAL SPINE WO CONTRAST Schedule Routine, Read Routine (OP Routine) 04/06/2024 Cervical spondylosis with radiculopathy H/O spinal fusion XR SCOLIOSIS 6 OR MORE VIEWS Schedule Routine, Read Routine (OP Routine) 03/16/2024 1:29 PM MUTUAL FUND ANALYST Cervical spondylosis with radiculopathy NEURO MR OUTSIDE REFERENCE Routine 03/01/2024 6:08 PM MUTUAL FUND ANALYST SCAN - RADIOLOGY/IMAGING 02/28/2024 9:36 AM MUTUAL FUND ANALYST HM DEXA SCAN Routine 01/06/2024 11:25 AM CDT STOOL DNA ? COLOGUARD Routine 07/09/2022 2:00 PM CDT Screen for colon cancer HEPATITIS C ANTIBODY Routine 04/15/2022 2:07 PM MUTUAL FUND ANALYST Encounter for hepatitis C screening test for low risk patient SCREENING MAMMOGRAM Schedule Routine, Read Routine (OP Routine) 01/29/2022 from Last 3 Months or Most Recently Relevant to Health Maintenance Results * MRI Lumbar Spine WO Contrast (04/07/2024 2:48 PM MUTUAL FUND ANALYST) Anatomical Region Laterality Modality Spine N/A Magnetic Resonan ce 04/07/2024 3:04 PM MUTUAL FUND ANALYST Narrative 04/07/2024 3:10 PM MUTUAL FUND ANALYST EXAM DESCRIPTION: ?? MRI LUMBAR SPINE WO CONTRAST REASON FOR STUDY: ?? Low back pain, prior surgery, new symptoms, prior surgery; new symptoms ?? 3 years ago ??pt had back surgery; surgeon hit her spinal cord and caused pt to be paralyzed from the chest down. Recently, she been having fiery sharp pain starting in her feet up to her knees. Pt new doc wants updated imaging for next plan of care. Hx ?? of PT for the past 3 years and ongoing. ?? TECHNIQUE: ??Sagittal and Axial imaging includes T1, T2, STIR sequences. ? COMPARISON: ?? Lumbar spine MRI dated 06/10/2022. FINDINGS: SEGMENTATION: ?? Last well-formed disc space seen on series 4, image 35 will be labeled L5-S1. ALIGNMENT: ?? Grade 1 retrolisthesis of L1 on L2 through L3 on L4. VERTEBRAE: ?? No acute compression fracture in the lumbar spine. ??Multilevel endplate degenerative changes and marginal spur formation ranging from moderate to severe at L1-L2 and L3-L4. DISC HEIGHT: ?? Diffuse disc desiccation and height loss ranging from moderate to severe. HARDWARE: ?? None in the spine. CORD/CAUDA: ?? Conus medullaris terminates at L1. LOWER THORACIC: ?? Incompletely imaged. ??Better assessed on the concurrently obtained thoracic spine MRI. INDIVIDUAL DISC LEVELS: L1-L2: Retrolisthesis of L1 on L2 with unroofing of the disc and marginal spur formation eccentric to the left neural foramen. ??Bilateral facet arthropathy. ?? Flattening of the ventral thecal sac. ??Left lateral recess effacement. ?? Thfc-rm-eghmxvuf left and no significant right neural foraminal narrowing. L2-L3: Retrolisthesis of L2 on L3 with unroofing of the disc and marginal spur formation eccentric to the left neural foramen. ??Thickened ligamentum flavum with bilateral facet arthropathy. ??Proliferation of dorsal epidural fat. ?? Moderate spinal canal stenosis. ??Lateral recess effacement on both sides. ?? Hfbt-ct-nvlzdmim right and mild inferior left neural foraminal narrowing. L3-L4: Retrolisthesis of L3 on L4 with unroofing of the disc and marginal spur formation. ??Thickened ligamentum flavum and facet arthropathy. ??Flattening of the ventral thecal sac. ??Swtq-yl-kalatxiu neural foraminal narrowing with disc/marginal spur and facet arthropathy approaching the exiting L3 nerve roots. L4-L5: Disc bulge with thickened flavum and bilateral facet arthropathy. ?? Proliferation of dorsal epidural fat. ??Moderate spinal canal stenosis. ?? Lateral recess effacement on both sides. ??Boaz-ti-gelucetc left and mild right neural foraminal narrowing. L5-S1: No significant disc bulge, spinal canal or neural foraminal narrowing. ?? There is bilateral facet arthropathy. VISUALIZED UPPER ABDOMEN: ?? Partially imaged right adnexal 3.2 cm T2 hyperintense signal is incompletely characterized on this MRI. ??Rounded T2 hyperintense foci in both kidneys are incompletely characterized on this MRI but commonly reflects a cyst. IMPRESSION: ?? 1. ?? The lumbar disc degeneration ranging up to moderate to severe with thickened ligamentum flavum and facet arthropathy as seen on the previous MRI dated 06/10/2022. ??The spinal canal stenosis is most noticeable at L2-L3 and L4-L5. 2. ?? Varying degrees of bilateral neural foraminal narrowing and additional findings as above. 3. ?? Partially imaged right adnexal 3.2 cm T2 hyperintense focus is incompletely characterized on this lumbar spine MRI. ??Recommend further evaluation with transabdominal and transvaginal approach pelvic ultrasound. THIS IS AN ELECTRONICALLY VERIFIED FINAL REPORT 04/07/2024 3:10 PM - Electronically signed by ??Sean Bass D.O. AP: FABI D: ??04/07/2024 3:10 PM T: ??04/07/2024 3:10 PM Report ID: [id number] Reading Location: ??[id number] Procedure Note Sean Bass, DO - 04/07/2024 EXAM DESCRIPTION: MRI LUMBAR SPINE WO CONTRAST REASON FOR STUDY: Low back pain, prior surgery, new symptoms, priorsurgery; new symptoms 3 years ago pt had back surgery; surgeon hit her spinal cord and causedpt to be paralyzed from the chest down. Recently, she been having fiery sharppain starting in her feet up to her knees. Pt new doc wants updated imaging for next plan of care. Hx of PT for the past 3 years and ongoing. TECHNIQUE: Sagittal and Axial imaging includes T1, T2, STIR sequences. COMPARISON: Lumbar spine MRI dated 06/10/2022. FINDINGS: SEGMENTATION: Last well-formed disc space seen on series 4, image 35will be labeled L5-S1. ALIGNMENT: Grade 1 retrolisthesis of L1 on L2 through L3 on L4. VERTEBRAE: No acute compression fracture in the lumbar spine.Multilevel endplate degenerative changes and marginal spur formation ranging from moderate to severe at L1-L2 and L3-L4. DISC HEIGHT: Diffuse disc desiccation and height loss ranging frommoderate to severe. HARDWARE: None in the spine. CORD/CAUDA: Conus medullaris terminates at L1. LOWER THORACIC: Incompletely imaged. Better assessed on theconcurrently obtained thoracic spine MRI. INDIVIDUAL DISC LEVELS: L1-L2: Retrolisthesis of L1 on L2 with unroofing of the disc and marginalspur formation eccentric to the left neural foramen. Bilateral facetarthropathy. Flattening of the ventral thecal sac. Left lateral recess effacement. Lavt-pr-owrsgrgs left and no significant right neural foraminalnarrowing. L2-L3: Retrolisthesis of L2 on L3 with unroofing of the disc and marginalspur formation eccentric to the left neural foramen. Thickened ligamentumflavum with bilateral facet arthropathy. Proliferation of dorsal epidural fat. Moderate spinal canal stenosis. Lateral recess effacement on both sides. Rzoh-fb-iakdwkub right and mild inferior left neural foraminalnarrowing. L3-L4: Retrolisthesis of L3 on L4 with unroofing of the disc and marginalspur formation. Thickened ligamentum flavum and facet arthropathy. Flatteningof the ventral thecal sac. Bcfs-ek-rlxdlmxk neural foraminal narrowing with disc/marginal spur and facet arthropathy approaching the exiting L3 nerve roots. L4-L5: Disc bulge with thickened flavum and bilateral facet arthropathy. Proliferation of dorsal epidural fat. Moderate spinal canal stenosis. Lateral recess effacement on both sides. Dkyj-dz-spfhctdy left and mildright neural foraminal narrowing. L5-S1: No significant disc bulge, spinal canal or neural foraminalnarrowing. There is bilateral facet arthropathy. VISUALIZED UPPER ABDOMEN: Partially imaged right adnexal 3.2 cm T2 hyperintense signal is incompletely characterized on this MRI. Rounded T2 hyperintense foci in both kidneys are incompletely characterized on thisMRI but commonly reflects a cyst. IMPRESSION: 1. The lumbar disc degeneration ranging up to moderate to severe with thickened ligamentum flavum and facet arthropathy as seen on the previousMRI dated 06/10/2022. The spinal canal stenosis is most noticeable at L2-L3and L4-L5. 2. Varying degrees of bilateral neural foraminal narrowing andadditional findings as above. 3. Partially imaged right adnexal 3.2 cm T2 hyperintense focus is incompletely characterized on this lumbar spine MRI. Recommend further evaluation with transabdominal and transvaginal approach pelvicultrasound. THIS IS AN ELECTRONICALLY VERIFIED FINAL REPORT 04/07/2024 3:10 PM - Electronically signed by Sean Bass D.O. AP: AP Report ID: [id number] Reading Location: [place] [address] Jarad Couch Jr., MD [facility] [place] MRI PROCEDURES Final Result * MRI Thoracic Spine WO Contrast (04/07/2024 2:34 PM MUTUAL FUND ANALYST) Anatomical Region Laterality Modality Spine N/A Magnetic Resonan ce 04/07/2024 2:51 PM MUTUAL FUND ANALYST Narrative 04/07/2024 3:04 PM MUTUAL FUND ANALYST EXAM DESCRIPTION: ?? MRI THORACIC SPINE WO CONTRAST REASON FOR STUDY: ?? prior surgery; new symptoms ?? 3 years ago ??pt had back surgery; surgeon hit her spinal cord and caused pt to be paralyzed from the chest down. Recently, she been having fiery sharp pain starting in her feet up to her knees. Pt new doc wants updated imaging for next plan of care. Hx ?? of PT for the past 3 years and ongoing. ?? TECHNIQUE: Sagittal and Axial imaging includes T1, T2, STIR and gradient echo sequences. ? COMPARISON: ?? Thoracic spine MRI dated 06/10/2022. FINDINGS: ALIGNMENT: ?? Exaggerated upper thoracic kyphosis. VERTEBRAE: ?? No acute compression fracture in the thoracic spine. ??Multilevel endplate degeneration and marginal spur formation ranging from moderate to severe as seen on the previous MRI dated 06/10/2022. ??Rounded T1 and T2 hyperintense foci including in the T6 and T8 vertebral bodies in keeping with intraosseous hemangioma. HARDWARE: ?? None in the spine. CORD: ?? Focal T2 hyperintense cord signal alteration at T2-T3 and T7-T8. THORACIC DISCS: T2-T3: Surgical level. ??Previous laminectomy. ??There is a disc bulge with superimposed large central disc protrusion and marginal spur formation indenting the ventral cord. ??Remaining thickened ligamentum flavum and facet arthropathy. ??Continued spinal canal and neural foraminal narrowing. T3-T4: Disc bulge with marginal spur formation. ??Thickened ligamentum flavum and facet arthropathy. ??No significant spinal canal stenosis. ?? Etxat-ftvezof-ypop-left neural foraminal narrowing. T4-T5: Minor disc bulge with thickened ligamentum flavum and facet arthropathy. ??No significant spinal canal stenosis. ??There is bilateral neural foraminal narrowing. T5-T6: Disc bulge and superimposed left subarticular disc protrusion flattens the left ventral thecal sac. ??Thickened ligamentum flavum and facet arthropathy. ??Moderate spinal canal stenosis of the left of midline. ??Mild right and no significant left neural foraminal narrowing. T6-T7: Disc bulge and superimposed disc protrusion eccentric to the left. ?? Thickened ligamentum flavum and facet arthropathy. ??Xmcr-dh-upngfhgj left ventral spinal canal stenosis. ??Xnexy-ujecain-ipdp-left neural foraminal narrowing. T7-T8: Disc bulge with marginal spur formation superimposed disc protrusion eccentric to the left compresses the left ventral cord. ??Thickened ligamentum flavum and facet arthropathy. ??Moderate to severe spinal canal stenosis of the left of midline. ??Tgiwi-txdzcel-osbm-left neural foraminal narrowing. T8-T9: Minor disc bulge with thickened ligamentum flavum and facet arthropathy. ??No significant spinal canal or right neural foraminal narrowing. Moderate to severe left neural foraminal narrowing. T9-T10: Disc bulge with thickened ligamentum flavum and bilateral facet arthropathy. ??No significant spinal canal stenosis. ??Moderate left moderate to severe right neural foraminal narrowing. T10-T11: Disc bulge with marginal spur formation. ??Thickened ligamentum flavum and facet arthropathy. ??No significant spinal canal stenosis. ?? Kxij-sr-shvjlkji neural foraminal narrowing. T11-T12: No significant disc bulge or spinal canal stenosis thickened mentum flavum and facet arthropathy. ??Mild right and no significant left neural foraminal narrowing. T12-L1: No significant disc bulge or spinal canal stenosis. ??Thickened ligamentum flavum and facet arthropathy. ??Mild right and no significant left neural foraminal narrowing. At the remainder of the thoracic levels no significant disc bulge, spinal canal or neural foraminal narrowing. LOWER CERVICAL: ?? Incompletely imaged. ??Better assessed on the concurrently obtained cervical spine MRI. UPPER LUMBAR: ?? Incompletely imaged. ??Better obtained on the concurrently obtained lumbar spine MRI. IMPRESSION: ?? 1. ?? The T2-T3 laminectomy seen in the thoracic spine MRI dated 06/10/2022. ?? Large disc bulge/marginal spur continues to abut the adjacent cord. ??Continued T2 hyperintense cord signal alteration at this level. 2. ?? Additional multilevel thoracic disc degeneration ranging from moderate to severe with thickened ligamentum flavum and facet arthropathy as described. ?? 3. ?? The T7-T8 disc protrusion/marginal spur compresses the left ventral cord. Adjacent T2 hyperintense cord signal alteration could reflect compressive myelopathy/myelomalacia. ??Request clinical correlation. 4. ?? Varying degrees of bilateral neural foraminal stenosis and additional findings as above. ??The above findings discussed with ??the patient's nurse Ms. Ermelinda Enciso ?? Via telephone by me Dr. Virgil Bass on ??04/07/2024 at ??3:03 pm central standard time. ?? THIS IS AN ELECTRONICALLY VERIFIED FINAL REPORT 04/07/2024 3:04 PM - Electronically signed by ??Sean Bass D.O. AP: AP D: ??04/07/2024 3:04 PM T: ??04/07/2024 3:04 PM Report ID: [id number] Reading Location: ??[id number] Procedure Note Sean Bass, DO - 04/07/2024 EXAM DESCRIPTION: MRI THORACIC SPINE WO CONTRAST REASON FOR STUDY: prior surgery; new symptoms 3 years ago pt had back surgery; surgeon hit her spinal cord and causedpt to be paralyzed from the chest down. Recently, she been having fiery sharppain starting in her feet up to her knees. Pt new doc wants updated imaging for next plan of care. Hx of PT for the past 3 years and ongoing. TECHNIQUE: Sagittal and Axial imaging includes T1, T2, STIR and gradientecho sequences. COMPARISON: Thoracic spine MRI dated 06/10/2022. FINDINGS: ALIGNMENT: Exaggerated upper thoracic kyphosis. VERTEBRAE: No acute compression fracture in the thoracic spine.Multilevel endplate degeneration and marginal spur formation ranging from moderate to severe as seen on the previous MRI dated 06/10/2022. Rounded T1 and T2 hyperintense foci including in the T6 and T8 vertebral bodies in keepingwith intraosseous hemangioma. HARDWARE: None in the spine. CORD: Focal T2 hyperintense cord signal alteration at T2-T3 and T7-T8. THORACIC DISCS: T2-T3: Surgical level. Previous laminectomy. There is a disc bulge with superimposed large central disc protrusion and marginal spur formation indenting the ventral cord. Remaining thickened ligamentum flavum andfacet arthropathy. Continued spinal canal and neural foraminal narrowing. T3-T4: Disc bulge with marginal spur formation. Thickened ligamentumflavum and facet arthropathy. No significant spinal canal stenosis. Nudnh-kyauksf-rnit-left neural foraminal narrowing. T4-T5: Minor disc bulge with thickened ligamentum flavum and facet arthropathy. No significant spinal canal stenosis. There is bilateralneural foraminal narrowing. T5-T6: Disc bulge and superimposed left subarticular disc protrusionflattens the left ventral thecal sac. Thickened ligamentum flavum and facet arthropathy. Moderate spinal canal stenosis of the left of midline. Mild right and no significant left neural foraminal narrowing. T6-T7: Disc bulge and superimposed disc protrusion eccentric to the left. Thickened ligamentum flavum and facet arthropathy. Uwot-aa-oerkuwew left ventral spinal canal stenosis. Nsbaa-urqcjhu-huot-left neural foraminal narrowing. T7-T8: Disc bulge with marginal spur formation superimposed discprotrusion eccentric to the left compresses the left ventral cord. Thickenedligamentum flavum and facet arthropathy. Moderate to severe spinal canal stenosis ofthe left of midline. Xnzxr-srnassm-kzvu-left neural foraminal narrowing. T8-T9: Minor disc bulge with thickened ligamentum flavum and facet arthropathy. No significant spinal canal or right neural foraminalnarrowing. Moderate to severe left neural foraminal narrowing. T9-T10: Disc bulge with thickened ligamentum flavum and bilateral facet arthropathy. No significant spinal canal stenosis. Moderate leftmoderate to severe right neural foraminal narrowing. T10-T11: Disc bulge with marginal spur formation. Thickened ligamentumflavum and facet arthropathy. No significant spinal canal stenosis. Xois-pm-ifahjsjt neural foraminal narrowing. T11-T12: No significant disc bulge or spinal canal stenosis thickenedmentum flavum and facet arthropathy. Mild right and no significant left neural foraminal narrowing. T12-L1: No significant disc bulge or spinal canal stenosis. Thickened ligamentum flavum and facet arthropathy. Mild right and no significantleft neural foraminal narrowing. At the remainder of the thoracic levels no significant disc bulge, spinal canal or neural foraminal narrowing. LOWER CERVICAL: Incompletely imaged. Better assessed on theconcurrently obtained cervical spine MRI. UPPER LUMBAR: Incompletely imaged. Better obtained on the concurrently obtained lumbar spine MRI. IMPRESSION: 1. The T2-T3 laminectomy seen in the thoracic spine MRI dated06/10/2022. Large disc bulge/marginal spur continues to abut the adjacent cord.Continued T2 hyperintense cord signal alteration at this level. 2. Additional multilevel thoracic disc degeneration ranging frommoderate to severe with thickened ligamentum flavum and facet arthropathy asdescribed. 3. The T7-T8 disc protrusion/marginal spur compresses the left ventralcord. Adjacent T2 hyperintense cord signal alteration could reflect compressive myelopathy/myelomalacia. Request clinical correlation. 4. Varying degrees of bilateral neural foraminal stenosis and additional findings as above. The above findings discussed with the patient's nurse Ms. Sanchez Via telephone by me Dr. Virgil Bass on 04/07/2024 at 3:03 pm centralstandard time. THIS IS AN ELECTRONICALLY VERIFIED FINAL REPORT 04/07/2024 3:04 PM - Electronically signed by Sean Bass D.O. AP: AP Report ID: [id number] Reading Location: [id number] us Jarad Couch Jr., MD IM MRI PROCEDURES Final Result * MRI Cervical Spine WO Contrast (04/07/2024 2:22 PM MUTUAL FUND ANALYST) Anatomical Region Laterality Modality Spine N/A Magnetic Resonan ce 04/07/2024 2:29 PM MUTUAL FUND ANALYST Narrative 04/07/2024 3:10 PM MUTUAL FUND ANALYST EXAM DESCRIPTION: ?? MRI CERVICAL SPINE WO CONTRAST REASON FOR STUDY: ?? prior surgery; new symptoms ?? 3 years ago ??pt had back surgery; surgeon hit her spinal cord and caused pt to be paralyzed from the chest down. Recently, she been having fiery sharp pain starting in her feet up to her knees. Pt new doc wants updated imaging for next plan of care. Hx ?? of PT for the past 3 years and ongoing. ?? TECHNIQUE: Sagittal and Axial imaging includes T1, T2, STIR and gradient echo sequences. ? COMPARISON: ?? Cervical spine MRI dated 06/10/2022. ??Cervical spine MRI from an outside institution dated 04/30/2023. FINDINGS: The evaluation is limited on this large field of view study. ALIGNMENT: ?? Grade 1 retrolisthesis of C3 on C4 grade 1. ??Focal kyphosis centered about the upper thoracic spine. VERTEBRAE: ?? Unfused level endplate degenerative changes and marginal spur formation as seen previously on the MRI dated 04/30/2023. ??If trauma is suspected then a CT has higher sensitivity for spinal fractures and can be obtained as clinically indicated. ??Rounded T1 and T2 hyperintense signal in the T1 vertebral body in keeping with an intraosseous hemangioma. DISCS: ?? Unfused level intervertebral disc height loss as seen previously. HARDWARE: ?? Susceptibility signal relating to a previous C4-C6 ACDF. CORD: ?? Suboptimal assessment on this large field of view study. ??Apparent longitudinally oriented T2 hyperintense signal extending from the craniocervical junction through upper thoracic spine only seen on the sagittal T2 weighted sequence (series 6, image 8) could be an artifact on this suboptimal study. ??True cord edema or syrinx would be difficult to exclude. ?? Partially imaged focal T2 hyperintense cord signal alteration at T2-T3 as seen on the previous MRI dated 04/30/2023. INDIVIDUAL LEVELS: C2-C3: No significant disc bulge or spinal canal stenosis. ?? Buycy-pfaxycu-xiwn-left uncovertebral spurring and facet arthropathy with jsbt-wv-cktqcunf right and no significant left neural foraminal narrowing. C3-C4: Retrolisthesis of C3 on C4 with unroofing of the disc. ??Superimposed posterior disc osteophyte complex. ??Thickened ligamentum flavum. ??Moderate spinal canal stenosis. ??Uncovertebral spurring and facet arthropathy with moderate left and zjjv-jd-uftimjqh right neural foraminal narrowing. C4-C5: Surgical level. ??Intermediate signal in the ventral spinal canal could be osteophytic ridging or other postoperative change. ??Continued spinal canal narrowing to the right of midline. ??Neural foramen are suboptimally visualized due to metal related artifact, question bxqt-nvkofqo-njkd-right neural foraminal narrowing. C5-C6: Surgical level. ??Intermediate signal in the ventral spinal canal to the left of midline abutting the ventral cord as seen previously and could be osteophytic ridging or other postoperative change. ??Continued spinal canal and woxn-tzxegll-wpnz-right neural foraminal narrowing. C6-C7: Posterior disc osteophyte complex indents the ventral thecal sac. ?? Uncovertebral spurring and facet arthropathy with mild left and no significant right neural foraminal narrowing. C7-T1: No significant disc bulge or spinal canal stenosis. ??Uncovertebral spurring with facet arthropathy and thickened ligamentum flavum contributing to mild to moderate left and mild inferior right neural foraminal narrowing. UPPER THORACIC: ?? Better assessed on the concurrently obtained thoracic spine MRI. OTHER: ?? The cervicothoracic posterior paraspinal soft tissue STIR hyperintense signal is nonspecific and could be postoperative in nature. ??A strain can also have similar appearance. IMPRESSION: ?? 1. ?? The C4-C6 ACDF as seen on the cervical spine MRI from an outside institution dated 04/30/2023. 2. ?? The non operative level cervical spine degenerative changes are similar. ?? Level by level details as above. 3. ?? Apparent longitudinally oriented T2 hyperintense cord signal alteration throughout the cervical spine could be an artifact on this large field of view study. ??If there is concern for cord edema or syrinx then recommend short interval repeat MRI. ??The above findings discussed with ??the patient's nurse Ermelinda Zaria ?? Via telephone by me Dr. Virgil Bass on ??04/07/2024 at ??3:03 pm central standard time. ?? THIS IS AN ELECTRONICALLY VERIFIED FINAL REPORT 04/07/2024 3:10 PM - Electronically signed by ??Sean Bass D.O. AP: AP D: ??04/07/2024 3:10 PM T: ??04/07/2024 3:10 PM Report ID: [id number] Reading Location: ??[id number] Procedure Note Sean Bass, DO - 04/07/2024 EXAM DESCRIPTION: MRI CERVICAL SPINE WO CONTRAST REASON FOR STUDY: prior surgery; new symptoms 3 years ago pt had back surgery; surgeon hit her spinal cord and causedpt to be paralyzed from the chest down. Recently, she been having fiery sharppain starting in her feet up to her knees. Pt new doc wants updated imaging for next plan of care. Hx of PT for the past 3 years and ongoing. TECHNIQUE: Sagittal and Axial imaging includes T1, T2, STIR and gradientecho sequences. COMPARISON: Cervical spine MRI dated 06/10/2022. Cervical spine MRIfrom an outside institution dated 04/30/2023. FINDINGS: The evaluation is limited on this large field of view study. ALIGNMENT: Grade 1 retrolisthesis of C3 on C4 grade 1. Focal kyphosis centered about the upper thoracic spine. VERTEBRAE: Unfused level endplate degenerative changes and marginal spur formation as seen previously on the MRI dated 04/30/2023. If trauma is suspected then a CT has higher sensitivity for spinal fractures and can be obtained as clinically indicated. Rounded T1 and T2 hyperintense signalin the T1 vertebral body in keeping with an intraosseous hemangioma. DISCS: Unfused level intervertebral disc height loss as seen previously. HARDWARE: Susceptibility signal relating to a previous C4-C6 ACDF. CORD: Suboptimal assessment on this large field of view study. Apparent longitudinally oriented T2 hyperintense signal extending from the craniocervical junction through upper thoracic spine only seen on thesagittal T2 weighted sequence (series 6, image 8) could be an artifact on this suboptimal study. True cord edema or syrinx would be difficult toexclude. Partially imaged focal T2 hyperintense cord signal alteration at T2-T3 asseen on the previous MRI dated 04/30/2023. INDIVIDUAL LEVELS: C2-C3: No significant disc bulge or spinal canal stenosis. Cxnvs-apthcvn-xqfq-left uncovertebral spurring and facet arthropathy with tbzp-nh-qrjuztiq right and no significant left neural foraminal narrowing. C3-C4: Retrolisthesis of C3 on C4 with unroofing of the disc.Superimposed posterior disc osteophyte complex. Thickened ligamentum flavum. Moderate spinal canal stenosis. Uncovertebral spurring and facet arthropathy with moderate left and ermy-zr-coomytnf right neural foraminal narrowing. C4-C5: Surgical level. Intermediate signal in the ventral spinal canalcould be osteophytic ridging or other postoperative change. Continued spinalcanal narrowing to the right of midline. Neural foramen are suboptimallyvisualized due to metal related artifact, question nwbe-dvmglfd-uqqh-right neural foraminal narrowing. C5-C6: Surgical level. Intermediate signal in the ventral spinal canal tothe left of midline abutting the ventral cord as seen previously and could be osteophytic ridging or other postoperative change. Continued spinal [place] epif-lkxrcil-wqyg-right neural foraminal narrowing. C6-C7: Posterior disc osteophyte complex indents the ventral thecal sac. Uncovertebral spurring and facet arthropathy with mild left and nosignificant right neural foraminal narrowing. C7-T1: No significant disc bulge or spinal canal stenosis. Uncovertebral spurring with facet arthropathy and thickened ligamentum flavumcontributing to mild to moderate left and mild inferior right neural foraminalnarrowing. UPPER THORACIC: Better assessed on the concurrently obtained thoracicspine MRI. OTHER: The cervicothoracic posterior paraspinal soft tissue STIR hyperintense signal is nonspecific and could be postoperative in nature.A strain can also have similar appearance. IMPRESSION: 1. The C4-C6 ACDF as seen on the cervical spine MRI from an outside institution dated 04/30/2023. 2. The non operative level cervical spine degenerative changes aresimilar. Level by level details as above. 3. Apparent longitudinally oriented T2 hyperintense cord signalalteration throughout the cervical spine could be an artifact on this large field ofview study. If there is concern for cord edema or syrinx then recommend short interval repeat MRI. The above findings discussed with the patient's nurse Ms. Sanchez Via telephone by or Dr. Virgil Bass on 04/07/2024 at 3:03 pm centralstandard time. THIS IS AN ELECTRONICALLY VERIFIED FINAL REPORT 04/07/2024 3:10 PM - Electronically signed by Sean Bass D.O. AP: AP Report ID: [id number] Reading Location: [place] [id number] Jarad Couch Jr., MD IM MRI PROCEDURES Final Result * CT Lumbar Spine WO Contrast (04/06/2024) Anatomical Region Laterality Modality Spine N/A Computed Tomogra phy Jarad Couch Jr., MD IM CT PROCEDURES F inal Result * CT Thoracic Spine WO Contrast (04/06/2024) Anatomical Region Laterality Modality Spine N/A Computed Tomogra phy us Jarad Couch Jr., MD [facility] [place] CT PROCEDURES F inal Result * CT Cervical Spine WO Contrast (04/06/2024) Anatomical Region Laterality Modality Spine N/A Computed Tomogra phy Jarad Couch Jr., MD IMG CT PROCEDURES F inal Result * XR Scoliosis 6 or More Views (03/16/2024 1:29 PM MUTUAL FUND ANALYST) Anatomical Region Laterality Modality Spine N/A Computed Radiogr aphy 03/16/2024 2:21 PM MUTUAL FUND ANALYST Impressions 03/16/2024 3:22 PM MUTUAL FUND ANALYST 1. ??Anterior cervical discectomy fusion of C4-C6 with obliquely oriented hardware. 2. ??Mild dextroscoliosis of thoracolumbar spine centered at L2 and mild anterior sagittal imbalance. 3. ??Multilevel moderate degenerative disease most pronounced at L1-L2. Dictated by: Hortencia Vega MD The radiology attending physician has personally reviewed this study, and had reviewed and/or edited this written report and agrees with it. Electronically signed by: Dileep Valdez MD Narrative 03/16/2024 3:22 PM MUTUAL FUND ANALYST EXAMINATION: XR SCOLIOSIS ??6 OR MORE VIEWS HISTORY: ??Neck pain FINDINGS: Comparison is made to MRI cervical spine 06/10/2022. Scoliosis radiographs including dedicated cervical spine radiographs were obtained. ??Anterior cervical discectomy and fusion of C4-C6 with oblique orientation, hardware is intact. ??Mild dextroscoliosis of the thoracolumbar spine centered at L2. ??Mild anterior sagittal balance, no significant coronal imbalance. ??No significant pelvic obliquity. Mild straightening of the lumbar lordosis. ??No listhesis. ??Limited mobility of the cervical spine with flexion and extension, no dynamic listhesis. ??Cervical vertebral body heights are maintained. Multilevel moderate degenerative disc disease most pronounced at L1-L2. Procedure Note Barbara Valdez MD - 03/16/2024 EXAMINATION: XR SCOLIOSIS 6 OR MORE VIEWS HISTORY: Neck pain FINDINGS: Comparison is made to MRI cervical spine 06/10/2022. Scoliosis radiographs including dedicated cervical spine radiographs were obtained. Anterior cervical discectomy and fusion of C4-C6 with oblique orientation, hardware is intact. Mild dextroscoliosis of the thoracolumbar spine centered at L2. Mild anterior sagittal balance, no significant coronal imbalance. No significant pelvic obliquity. Mild straightening of the lumbar lordosis. No listhesis. Limited mobility of the cervical spine with flexion and extension, no dynamic listhesis. Cervical vertebral body heights are maintained. Multilevel moderate degenerative disc disease most pronounced at L1-L2. IMPRESSION: 1. Anterior cervical discectomy fusion of C4-C6 with obliquely oriented hardware. 2. Mild dextroscoliosis of thoracolumbar spine centered at L2 and mild anterior sagittal imbalance. 3. Multilevel moderate degenerative disease most pronounced at L1-L2. Dictated by: Hortencia Vega MD The radiology attending physician has personally reviewed this study, and had reviewed and/or edited this written report and agrees with it. Electronically signed by: Dileep Valdez MD Jarad Couch Jr., MD IMG XR PROCEDURES F inal Result * Neuro MR Outside Reference (03/01/2024 6:08 PM MUTUAL FUND ANALYST) Impressions [facility] - 03/01/2024 6:08 PM MUTUAL FUND ANALYST These images are for Reference purposes only and have not been reviewed by [facility] Radiology. ??There will be no report generated by a [facility] Radiologist. Narrative [facility] - 03/01/2024 6:08 PM MUTUAL FUND ANALYST EXAMINATION: ??Images For Reference Purposes Only Jarad Couch Jr., MD IMG MRI PROCEDURES Final Result [facility] * SCAN - RADIOLOGY/IMAGING (02/28/2024 9:36 AM MUTUAL FUND ANALYST) Anatomical Region Laterality Modality Other Provider Scanning Final Result * HM DEXA SCAN (01/06/2024 11:25 AM CDT) Historical Provider HEALTH MAINTENANCE Final Result * Stool DNA - Cologuard (07/09/2022 2:00 PM CDT) Stool DNA - Cologuard Negative Negative [employer] (CLIA #:[id number]) Comment: NEGATIVE TEST RESULT. A negative Cologuard result indicates a low likelihood that a colorectal cancer (CRC) or advanced adenoma (adenomatous polyps with more advanced pre-malignant features) ??is present. The chance that a person with a negative Cologuard test has a colorectal cancer is less than 1 in 1500 (negative predictive value >99.9%) or has an ??advanced adenoma is less than ??5.3% (negative predictive value 94.7%). These data are based on a prospective cross-sectional study of 10,000 individuals at average risk for colorectal cancer who were screened with both Cologuard and colonoscopy. (Elizabeth Vargas et al, N Engl J Med 2014;370(14):1286- 1297) The normal value (reference range) for this assay is negative. COLOGUARD RE-SCREENING RECOMMENDATION: Periodic colorectal cancer screening is an important part of preventive healthcare for asymptomatic individuals at average risk for colorectal cancer. ??Following a negative Cologuard result, the [place] [employer] and U.S. Multi-Society Task Force screening guidelines recommend a Cologuard re-screening interval of 3 years. References: [place] [employer] Guideline for Colorectal Cancer Screening: https://www.cancer.org/cancer/dzsmm-zvitzn-xtzglf/kspdyxqma-scirrbplf-rcyhqsh/ac s-rec ommendations.html.; Carlo DONOHUE, Channing GREEN, Mirtha DawsonK, Colorectal Cancer Screening: Recommendations for Physicians and Patients from the U.S. Multi-Society Task Force on Colorectal Cancer Screening , Am J Gastroenterology 2017; 112:3229-5528. TEST DESCRIPTION: Composite algorithmic analysis of stool DNA-biomarkers with hemoglobin immunoassay. ?? Quantitative values of individual biomarkers are not reportable and are not associated with individual biomarker result reference ranges. Cologuard is intended for colorectal cancer screening of adults of either sex, 45 years or older, who are at average-risk for colorectal cancer (CRC). Cologuard has been approved for use by the U.[place]. FDA. The performance of Cologuard was established in a cross sectional study of average-risk adults aged 50-84. Cologuard performance in patients ages 45 to 49 years was estimated by sub-group analysis of near-age groups. Colonoscopies performed for a positive result may find as the most clinically significant lesion: colorectal cancer [4.0%], advanced adenoma (including sessile serrated polyps greater than or equal to 1cm diameter) [20%] or non- advanced adenoma [31%]; or no colorectal neoplasia [45%]. These estimates are derived from a prospective cross-sectional screening study of 10,000 individuals at average risk for colorectal cancer who were screened with both Cologuard and colonoscopy. (Elizabeth Vargas et al, N Engl J Med 2014;370(14):4520-1921.) Cologuard may produce a false negative or false positive result (no colorectal cancer or precancerous polyp present at colonoscopy follow up). A negative Cologuard test result does not guarantee the absence of CRC or advanced adenoma (pre-cancer). The current Cologuard screening interval is every 3 years. ([place] [employer] Society and U.S. Multi-Society Task Force). Cologuard performance data in a 10,000 patient pivotal study using colonoscopy as the reference method can be accessed at the following location: www.QBE/results. Additional description of the Cologuard test process, warnings and precautions can be found at [email or web address] [employer] [email or web address]. Stool 07/09/2022 2:0 0 PM CDT 07/10/2022 3:33 PM CDT Bhargav Wilkes MD LAB BODY FLUIDS AND STOOLS ORDERABLES Final Result [facility] (CLIA #:[id number]) [place] [address] * Hepatitis C antibody (04/15/2022 2:07 PM MUTUAL FUND ANALYST) Hep C Ab Nonreactive Nonreactive LELA ZEPEDA Comment: Interpretive Data Nonreactive: Antibodies to HCV not detected. Does NOT exclude the possibility of recent exposure to HCV. Equivocal: Equivocal for HCV antibodies. Supplemental molecular testing will be automatically performed to determine infection status in accordance with current CDC screening recommendations. ?? Reactive: Positive for HCV antibodies. ??This may represent current or past HCV infection. Supplemental molecular testing will be automatically performed to determine ??current infection status in accordance with current CDC screening recommendations. Interpretive data was last revised on 2019. Blood 04/15/2022 2:07 PM MUTUAL FUND ANALYST 04/15/2022 8:10 PM MUTUAL FUND ANALYST Bhargav Wilkes MD LAB MICROBIOLOGY - GENERAL ORDERABLES Final Result Performing Organization Address City/State/ZIP [place] Phone Number LELA [address] [place] [address] from Last 3 Months or Most Recently Relevant to Health Maintenance Insurance MEDICARE [facility] Address: [address] [address] [place] [address] [employer] SENIOR SUPPLEMENT MEDICARE [employer] SENIOR SUPPLEMENT Care Teams Prop Drawer Relationship Specialty Start Date End Date Bhargav Wilkes MD [address] [place] [address] PCP - General Family Medicine 04/15/22 [place] [address] [place] [address] Referring Physician Physical Medicine and Rehabilitation 12/30/22
--- OUTSIDE RECORDS SUMMARY | 2024-04-13 08:33 | XMS_ITS | Encounter Summary ---
Author Organization [facility] Medical [facility] Address [address] [facility] [address] [place] [address] Care Team Providers Care Senior Programmer Name Role Phone Bhargav Wilkes MD Primary Care Provider [phone] Reason for Visit * Reason Onset Date Comments Test Results 11/13/2022 Encounter Details Date Type Department Care Team (Late st Contact Info) Description 11/13/2022 Telephone [facility] [place] [address] [place] [id number] Dinora Mendiola MA Test Results Social History Tobacco Use Types Packs/Day Years Used Date Smoking Tobacco: Former Cigarettes 0.5 7.7 1 981 - 01/11/1988 Smokeless Tobacco: Never PHQ-2 Answer Date Recorded PHQ-2 Total Score (If total score is 3 or more points, staff should administer the PHQ-9) 0 07/01/2022 Comments Unknown Sex and Gender Information Value Date Recorded Sex Assigned at Not on file 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 Pt was told shemay continue the macrobid. * Telephone Encounter - Dinora Mendiola MA - 11/13/2022 4:38 PM CDT ----- Message from Julianne Teran NP sent at 11/13/2022 11:28 AM CDT ----- Please call patient and let her know that her urine culture was negative. She may continue taking the Macrobid if she feels it is helping with her symptoms. She should follow-up with her PCP if symptoms persist documented in this encounter Plan of Treatment Not on file documented as of this encounter Visit Diagnoses Not on filedocumented in this encounter Care Teams Senior Programmer Relationship Specialty Start Date End Date Bhargav Wilkes MD [address] [place] [address] PCP - General Family Medicine 04/15/22 documented as of this encounter
--- OUTSIDE RECORDS SUMMARY | 2024-04-13 08:33 | XMS_ITS | Encounter Summary ---
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 * Telephone Encounter - Shanda Hillman MA - 11/13/2022 4:03 PM CDT ----- Message from Julianne Teran [...] on filedocumented in this encounter Care Teams Flatbed Owner Operator Relationship Specialty Start Date End Date Bhargav Wilkes MD [facility] [place] [address] PCP - General Family Medicine 04/15/22 documented as of this encounter
--- OUTSIDE RECORDS SUMMARY | 2024-04-13 08:33 | XMS_ITS | Encounter Summary ---
Author Organization [facility] Healthcare Address [address] [place] [address] Care Team Providers Care Sales Communications Manager Name Role Phone Bhargav Wilkes MD Primary Care Provider Be Rangel DO Unavailable [phone] Encounter Details Date Type Department Care Team (Late st Contact Info) Description 04/30/2023 Ancillary Procedure [facility] Social History Tobacco Use Types Packs/Day Years Used Date Smoking Tobacco: Former Cigarettes 0.5 7.7 1 981 - 01/11/1988 Smokeless Tobacco: Never AUDIT-C Answer Date Recorded Q1: How often do you have a drink containing alc ohol? 2-4 times a month 12/30/2022 Q2: How many drinks containi ng alcohol do you have on a typical day when you are drinking? 1 or 2 12/30/2022 Q3: How often do you have si x or more drinks on one occasion? 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 us Provider Transcribed Order IMG MRI PROCEDURES Fi nal Result [facility] documented in this encounter Visit Diagnoses Not on filedocumented in this encounter Care Teams Sales Communications Manager Relationship Specialty Start Date End Date Bhargav Wilkes MD [address] [place] [address] PCP - General Family Medicine 04/15/22 [place] [address] [place] [address] Referring Physician Physical Medicine and Rehabilitation 12/30/22 documented as of this encounter
--- OUTSIDE RECORDS SUMMARY | 2024-04-13 08:33 | XMS_ITS | Encounter Summary ---
Author Organization [facility] Healthcare Address [address] [place] [address] Care Team Providers Care Foam Rubber Molder Name Role Phone Bhargav Wilkes MD Primary Care Provider Be Rangel DO Unavailable [phone] Reason for Visit * Reason Onset Date Comments Medical Question/Miscellaneous 10/29/2023 Encounter Details Date Type Department Care Team (Late st Contact Info) Description 10/29/2023 Telephone [facility] Primary Care at [address] [phone] Bhargav Wilkes MD [address] [place] [address] [address] [place] [address] Medical Question/Miscellaneous Social History Tobacco Use Types Packs/Day Years [...] points, staff should administer the PHQ-9) 0 08/11/2023 Comments Unknown Sex and Gender Information Value Date Recorded Sex Assigned at Not on file 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 DIRECTOR TELEVISION did not see that in the patiens chart and relayed. Does message need to be routed? No documented in this encounter Plan of Treatment Not on file documented as of this encounter Visit Diagnoses Not on filedocumented in this encounter Care Teams Foam Rubber Molder Relationship Specialty Start Date End Date Bhargav Wilkes MD [address] [place] [address] PCP - General Family Medicine 04/15/22 [place] [address] [place] [address] Referring Physician Physical Medicine and Rehabilitation 12/30/22 documented as of this encounter
--- OUTSIDE RECORDS SUMMARY | 2024-04-13 08:33 | XMS_ITS | Encounter Summary ---
Author Organization [facility] Address [address] [facility] [address] [place] [address] Care Team Providers Care Transactional Paralegal Name Role Phone Bhargav Wilkes MD Primary Care Provider [phone] Reason for Visit * Reason Onset Date Comments Symptom Based Call 11/10/2022 Encounter Details Date Type Department Care Team (Late st Contact Info) Description 11/10/2022 Telephone [facility] Primary Care at [address] [address] Bhargav Wilkes MD [address] [place] [address] [address] [place] [address] Symptom Based Call Social History Tobacco Use Types Packs/Day Years [...] on file 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 LMOM to contact the office back at [phone] Regarding: Frequent urination Telephone task has been made. Please relay: Left message on patient vm to go to the [facility] and have a UA done so we know what type of bacteria we are looking at and what medication to prescribe. * Telephone Encounter - Martin Amin - 11/10/2022 8:45 AM CDT Symptom Based Call Caller's Callback #: [phone] Chief Complaint(s): Frequent urinationg, leg spasms Duration: a few days What type of symptom(s) is the patient experiencing? Non-Emergent. Is this a new or reoccurring symptom(s)? New What have you tried to help your symptom(s)? Nothing Why was appointment not scheduled? Patient refusing appointment regardless of availability. Patientstated she only wants medication prescribed Additional Comments: na Does message need to be routed? Yes-Action Needed documented in this encounter Plan of Treatment Not on file documented as of this encounter Visit Diagnoses Not on filedocumented in this encounter Care Teams Transactional Paralegal Relationship Specialty Start Date End Date Bhargav Wilkes MD [address] [place] [address] PCP - General Family Medicine 04/15/22 documented as of this encounter
--- OUTSIDE RECORDS SUMMARY | 2024-04-13 08:33 | XMS_ITS | Encounter Summary ---
Author Organization [facility] Healthcare Address [address] [place] [address] Care Team Providers Care Steel Roller Name Role Phone Bhargav Wilkes MD Primary Care Provider Be Rangel DO Unavailable [phone] Reason for Visit * Reason Comments Nausea Encounter Details Date Type Department Care Team (Late st Contact Info) Description 08/11/2023 1:45 PM CDT Office Visit [facility] Primary Care at [address] [address] Bhargav Wilkes MD [address] [place] [address] [address] [place] [address] Dehydration (Primary Dx) Social History Tobacco Use Types [...] on file 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 Gender Identity Not on file Sexual Orientation Not on file documented as of this encounter Last Filed Vital Signs Vital Sign Reading Time Taken Comments Blood Pressure 122/84 08/11/2023 2:12 PM CDT Pulse 88 08/11/2023 2:12 PM CDT Temperature 36.5 ??C (97.7 ??F) 08/11/2023 2:12 PM CD T Respiratory Rate - - Oxygen Saturation 97% 08/11/2023 2:12 PM CDT Inhaled Oxygen Concentration - - Weight 101.6 kg (224 lb) 08/11/2023 2:12 PM CDT Height 160 cm (5' 3 ) 08/11/2023 2:12 PM CDT Body Mass Index 39.68 08/11/2023 2:12 PM CDT documented in this encounter Progress Notes * Bhargav Wilkes MD - 08/11/2023 1:45 PM CDT Images from the original note were not included. Subjective/Objective Patient ID: Hailee Tanner is a 68 y.o. female. Chief Complaint Nausea Pt states for the last ten days she has been nauseated and have a headache over her eyes. Pt statesher vision has become blurry and unable to focus. Denies fever, but her level of function has been decreasing during this period. Headache is severe, and she admits photophobia with the visual acuitychanges. Current Outpatient Medications: ascorbic acid (VITAMIN C) 500 mg tablet,chewable, , Disp: , Rfl: baclofen (LIORESAL) 10 mg tablet, TAKE 2 TABLETS BY MOUTH 4 TIMES DAILY, Disp: , Rfl: calcium carbonate-vitamin D3 1,250 mg (500 mg elemental)-400 unit chewable tablet, Take 1 tablet bymouth daily, Disp: , Rfl: cholecalciferol (VITAMIN D-3) 1,000 unit capsule, Take 1 capsule (1,000 Units total) by mouth daily, Disp: , Rfl: cranberry fruit 400 mg tablet, Take 1 tablet by mouth daily, Disp: , Rfl: cyanocobalamin (Vitamin B-12) 100 mcg tablet, Take 1 tablet (100 mcg total) by mouth daily, Disp: ,Rfl: diazePAM (VALIUM) 5 mg tablet, Take 0.5 tablets (2.5 mg total) by mouth nightly, Disp: , Rfl: docosahexaenoic acid/epa (FISH OIL ORAL), Take by mouth, Disp: , Rfl: folic acid (FOLVITE) 800 mcg tablet, Take 0.5 tablets (400 mcg total) by mouth daily, Disp: , Rfl: furosemide (LASIX) 20 mg tablet, Take 1 tablet (20 mg total) by mouth daily as needed, Disp: , Rfl: magnesium oxide (MAG-OX) 250 mg (150.8 mg elemental) tablet, 1 tablet (250 mg total) daily, Disp: ,Rfl: NOT IN DATABASE, PRESCRIPTION,, Drug name: [facility] Route: oral Frequency, Disp: , Rfl: pantoprazole DR (PROTONIX) 40 mg EC tablet, Take 1 tablet (40 mg total) 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 Negative for appetite change, chills, diaphoresis and fever. HENT: Negative for facial swelling, nosebleeds, sinus pressure, sinus pain and sore throat. Eyes: Positive for photophobia, pain and visual disturbance. Negative for discharge, redness and itching. Respiratory: Negative for cough and shortness of breath. Gastrointestinal: Positive for nausea. Negative for abdominal pain and vomiting. Genitourinary: Negative. Musculoskeletal: Positive for gait problem (chronic), myalgias and neck stiffness. Negative for arthralgias and neck pain. Skin: Negative for rash. Neurological: Positive for weakness (generalized), light-headedness and headaches. Negative for dizziness, tremors, seizures, syncope, facial asymmetry, speech difficulty and numbness. BP 122/84 (BP Location: Left arm, Patient Position: Sitting) Pulse 88 Temp 36.5 ??C (97.7 ??F) (Temporal) Ht 160 cm (5' 3 ) Wt 101.6 kg (224 lb) SpO2 97% BMI 39.68 kg/m?? Physical Exam Vitals reviewed. Constitutional: General: She is not in acute distress. Appearance: She is obese. She is ill-appearing. She is not toxic-appearing or diaphoretic. HENT: Head: Normocephalic and atraumatic. Eyes: General: Lids are normal. Pupils: Pupils are equal. Funduscopic exam: Right eye: No hemorrhage, exudate or papilledema. Red reflex present. Left eye: Red reflex present. Pulmonary: Breath sounds: No wheezing, rhonchi or rales. Skin: Findings: No rash. Neurological: Mental Status: She is alert. Comments: Negative Bryce Huffman No visits with results within 1 Month(s) from this visit. Latest known visit with results is: Telephone on 04/21/2023 Component Date Value Ref Range Status Hgb A1C 05/07/2023 5.3 <5.7 % of total Hgb Final Comment: For the purpose of screening for the presence of diabetes: <5.7% Consistent with the absence of diabetes 5.7-6.4% Consistent with increased risk for diabetes (prediabetes) > or =6.5% Consistent with diabetes This assay result is consistent with a decreased risk of diabetes. Currently, no consensus exists regarding use of hemoglobin A1c for diagnosis of diabetes in children. According to [place] Diabetes Association (ADA) guidelines, hemoglobin A1c <7.0% represents optimal control in non- diabetic patients. Different metrics may apply to specific patient populations. Standards of Medical Care in Diabetes(ADA). HbA1c performed on Mobile Game [employer] platform. Assessment/Plan Diagnoses and all orders for this visit: Dehydration (Primary) Assessment & Plan: possibly viral sequelae; some features that might be concerning for meningeal irritation, though negative meningeal signs makes that unlikely Considered labs today, but she is having some difficulty staying awake; fatigue is elevated. Given her decreased function, sending to ER Transport with daughter. Hailee preferred [facility]. Bhargav Wilkes MD This office note has been partially dictated using MadeiraMadeira software, and as a result portions of the record may have been created with this software. Occasional wrong-word or '[id number]' substitutions may have occurred due to the inherent limitations of voice recognition software. Read the chartcarefully and recognize, using context, where substitutions have occurred. documented in this encounter Miscellaneous Notes * Assessment & Plan Note - Bhargav Wilkes MD - 08/11/2023 3:19 PM CDT Associated Problem(s): Dehydration (Resolved 04/10/2024) possibly viral sequelae; some features that might be concerning for meningeal irritation, though negative meningeal signs makes that unlikely Considered labs today, but she is having some difficulty staying awake; fatigue is elevated. Given her decreased function, sending to ER Transport with daughter. Hailee preferred [facility]. documented in this encounter Plan of Treatment Not on file documented as of this encounter Visit Diagnoses Diagnosis Dehydration- Primary documented in this encounter Care Teams Steel Roller Relationship Specialty Start Date End Date Bhargav Wilkes MD [address] [place] [address] PCP - General Family Medicine 04/15/22 [place] [address] [place] [address] Referring Physician Physical Medicine and Rehabilitation 12/30/22 documented as of this encounter
--- OUTSIDE RECORDS SUMMARY | 2024-04-13 08:33 | XMS_ITS | Referral Summary ---
Author Organization [facility] Address [address] [place] [address] Care Team Providers Care Group Practice Pediatrician Name Role Phone Bhargav Wilkes MD Primary Care Provider Be Rangel DO Unavailable [phone] Encounters Date Type Department Care Team Description 04/11/2024 Telephone [facility] Medical Group Primary Care at [address] [address] Bhargav Wilkes MD 04/07/2024 Telephone [facility] Orthopaedic Surgery Count includes the [facility] Advanced Medicine 6th [place] [address] [place] [phone] Jarad Couch Jr., MD 04/07/2024 Orders Only [facility] Medical Group Primary Care at [address] [address] Jarad Couch Jr., MD Cervical spondylosis with radiculopathy; H/O spinal fusion 04/07/2024 1:19 PM CULTURAL HISTORIAN - 04/07/2024 11:59 PM CULTURAL HISTORIAN Hospital Encounter [address] [address] Cervical spondylosis with radiculopathy; H/O spinal fusion Discharge Disposition: Discharge to home or self care 04/07/2024 1:15 PM CULTURAL HISTORIAN - 04/07/2024 11:59 PM CULTURAL HISTORIAN Hospital Encounter [address] [address] Cervical spondylosis with radiculopathy; H/O spinal fusion Discharge Disposition: Discharge to home or self care 04/07/2024 1:19 PM CULTURAL HISTORIAN - 04/07/2024 11:59 PM CULTURAL HISTORIAN Hospital Encounter [facility] [address] [place] [address] Cervical spondylosis with radiculopathy; H/O spinal fusion Discharge Disposition: Discharge to home or self care 03/31/2024 Telephone [facility] Medical Group Primary Care at [address] [phone] Bhargav Wilkes MD Med Refill 03/30/2024 Orders Only [facility] Medical Group Primary Care at [address] [address] Bhargav Wilkes MD Breast cancer screening by mammogram 03/16/2024 12:58 PM CULTURAL HISTORIAN - 03/16/2024 11:59 PM CULTURAL HISTORIAN Hospital Encounter [facility] Radiology [address] [place] [address] [place] [phone] Cervical spondylosis with radiculopathy Discharge Disposition: Discharge to home or self care 03/16/2024 2:00 PM CULTURAL HISTORIAN Office Visit [facility] Orthopaedic Surgery [address] [place] [address] Medical Office Building [address] [place] [address] Jarad Couch Jr., MD Cervical spondylosis with radiculopathy (Primary Dx); H/O spinal fusion 03/01/2024 6:08 PM CULTURAL HISTORIAN - 03/01/2024 11:59 PM CULTURAL HISTORIAN Hospital Encounter [facility] [address] [place] [address] Discharge Disposition: Discharge to home or self care 02/28/2024 Orders Only [facility] Scanning, Provider 02/25/2024 Telephone [facility] Orthopaedic Surgery [address] [place] [address] Medical Office Building [address] [place] [address] Jarad Couch Jr., MD Scheduling Appointments from Last 3 Months Allergies Active Allergy Reactions Criticality Noted Date Comments Codeine Stomach upset Low 10/15/2017 Oxycodone Nausea And Vomiting Low 12/17/2020 Medications cranberry fruit 400 mg tablet Take 1 tablet by mouth daily Active baclofen (LIORESAL) 10 mg tablet TAKE 2 TABLETS BY MOUTH 4 TIMES DAILY 03/10/20 Active polyethylene glycol (MIRALAX) 17 gram/dose powder 09/02/19 Active cholecalcifer ol (VITAMIN D-3) 1,000 unit [...] 1 tablet (40 mg total) by mouth machine plate stacker before breakfast 90 tablet 1 08/30/19 Active Additional Information Patient taking differently:40 mg oral Daily (early AM),Taking as needed, Reported on 03/16/2024 amitriptyline (ELAVIL) 25 mg tablet TAKE 1 TABLET(25 MG) BY MOUTH DAILY AT BEDTIME 12/21/19 24 Active aspirin 81 mg enteric coated tablet [...] Reported) NOT IN DATABASE, PRESCRIPTION, Drug name: kenzie Route: oral Frequency 024 Discontinued(Ty crocker Reported) phentermine 15 mg capsule TAKE 1 CAPSULE(15 MG) BY MOUTH EVERY MORNING 30 capsule 02/23/20 024 Discontinued Active Problems Problem Noted Date [...] syndrome (CMS/HCC) 04/15/2022 GERD (gastroesophageal reflux disease) 3 Overview (04/15/2022): Difficulty taking NSAIDs. HTN (hypertension) [...] months Assessment & Plan (04/15/2022 2:10 PM CULTURAL HISTORIAN): A(n) initial Medicare Annual Wellness Visit has [...] to ER Transport with daughter. Hailee preferred [facility]. Hyponatremia 04/15/2022 04/10/2024 Acute medial meniscus tear of right knee 01/06/2018 06/30/2023 Overview (01/06/2018): Added automatically from request for surgery [id number] Immunizations Name Administration Dates Next Due Influenza, [...] Pcv20 05/04/2022 Tdap 11/11/2013 ZOSTER Recombinant 05/04/2022,12/25/2021 Social History Tobacco Use Types Packs/Day Years [...] on file Legal Sex Female 1:00 AM CULTURAL HISTORIAN Gender Identity Not on file Sexual Orientation [...] 01/04/2024 1:21 PM CDT Plan of Treatment Not on file Procedures Procedure Name Priority Date/Time Associated Diagnosis Comments MRI LUMBAR SPINE WO CONTRAST Schedule Routine, Read Routine (OP Routine) 04/07/2024 2:48 PM CULTURAL HISTORIAN Cervical spondylosis with radiculopathy H/O spinal fusion MRI THORACIC SPINE WO CONTRAST Schedule Routine, Read Routine (OP Routine) 04/07/2024 2:34 PM CULTURAL HISTORIAN Cervical spondylosis with radiculopathy H/O spinal fusion MRI CERVICAL SPINE WO CONTRAST Schedule Routine, Read Routine (OP Routine) 04/07/2024 2:22 PM CULTURAL HISTORIAN Cervical spondylosis with radiculopathy H/O spinal fusion [...] Read Routine (OP Routine) 03/16/2024 1:29 PM CULTURAL HISTORIAN Cervical spondylosis with radiculopathy NEURO MR OUTSIDE REFERENCE Routine 03/01/2024 6:08 PM CULTURAL HISTORIAN SCAN - RADIOLOGY/IMAGING 02/28/2024 9:36 AM CULTURAL HISTORIAN HM DEXA SCAN Routine 01/06/2024 11:25 AM CDT STOOL DNA ? COLOGUARD Routine 07/09/2022 2:00 PM CDT Screen for colon cancer HEPATITIS C ANTIBODY Routine 04/15/2022 2:07 PM CULTURAL HISTORIAN Encounter for hepatitis C screening test for low risk patient SCREENING MAMMOGRAM Schedule Routine, Read Routine (OP Routine) 01/29/2022 from Last 3 Months or Most Recently Relevant to Health Maintenance Results * MRI Lumbar Spine WO Contrast (04/07/2024 2:48 PM CULTURAL HISTORIAN) Anatomical Region Laterality Modality Spine N/A Magnetic Resonan ce 04/07/2024 3:04 PM CULTURAL HISTORIAN Narrative 04/07/2024 3:10 PM CULTURAL HISTORIAN EXAM DESCRIPTION: ?? MRI LUMBAR SPINE WO [...] thecal sac. ??Left lateral recess effacement. ?? Ftda-yg-hbqpqcaq left and no significant right neural foraminal narrowing. L2-L3: Retrolisthesis of L2 on L3 with unroofing of the disc and marginal spur formation eccentric to the left neural foramen. ??Thickened ligamentum flavum with bilateral facet arthropathy. ??Proliferation of dorsal epidural fat. ?? Moderate spinal canal stenosis. ??Lateral recess effacement on both sides. ?? Dlsp-lj-jabbfzne right and mild inferior left neural foraminal narrowing. L3-L4: Retrolisthesis of L3 on L4 with unroofing of the disc and marginal spur formation. ??Thickened ligamentum flavum and facet arthropathy. ??Flattening of the ventral thecal sac. ??Suqt-kn-xwaexzdj neural foraminal narrowing with disc/marginal spur and facet arthropathy approaching the exiting L3 nerve roots. L4-L5: Disc bulge with thickened flavum and bilateral facet arthropathy. ?? Proliferation of dorsal epidural fat. ??Moderate spinal canal stenosis. ?? Lateral recess effacement on both sides. ??Rajb-gc-kjpicfav left and mild right neural foraminal narrowing. [...] PM T: ??04/07/2024 3:10 PM Report ID: [id number] Reading Location: ??[id number] Procedure Note Sean Bass, DO - 04/07/2024 [...] ventral thecal sac. Left lateral recess effacement. Oweq-hb-zddnlsry left and no significant right neural foraminalnarrowing. L2-L3: Retrolisthesis of L2 on L3 with unroofing of the disc and marginalspur formation eccentric to the left neural foramen. Thickened ligamentumflavum with bilateral facet arthropathy. Proliferation of dorsal epidural fat. Moderate spinal canal stenosis. Lateral recess effacement on both sides. Jort-bt-mcswuphf right and mild inferior left neural foraminalnarrowing. L3-L4: Retrolisthesis of L3 on L4 with unroofing of the disc and marginalspur formation. Thickened ligamentum flavum and facet arthropathy. Flatteningof the ventral thecal sac. Zbqu-yl-zshimutr neural foraminal narrowing with disc/marginal spur and facet arthropathy approaching the exiting L3 nerve roots. L4-L5: Disc bulge with thickened flavum and bilateral facet arthropathy. Proliferation of dorsal epidural fat. Moderate spinal canal stenosis. Lateral recess effacement on both sides. Rbrn-mr-sqacqtba left and mildright neural foraminal narrowing. L5-S1: [...] Sean Bass D.O. AP: AP Report ID: [id number] Reading Location: [place] [address] Jarad Couch Jr., MD IMG MRI PROCEDURES Final Result * MRI Thoracic Spine WO Contrast (04/07/2024 2:34 PM CULTURAL HISTORIAN) Anatomical Region Laterality Modality Spine N/A Magnetic Resonan ce 04/07/2024 2:51 PM CULTURAL HISTORIAN Narrative 04/07/2024 3:04 PM CULTURAL HISTORIAN EXAM DESCRIPTION: ?? MRI THORACIC SPINE WO [...] arthropathy. ??No significant spinal canal stenosis. ?? Numnp-epdmpqa-ldjg-left neural foraminal narrowing. T4-T5: Minor disc bulge [...] ?? Thickened ligamentum flavum and facet arthropathy. ??Tupb-vi-uodcwrhb left ventral spinal canal stenosis. ??Nlbyg-hjjtjnv-ywya-left neural foraminal narrowing. T7-T8: Disc bulge with marginal spur formation superimposed disc protrusion eccentric to the left compresses the left ventral cord. ??Thickened ligamentum flavum and facet arthropathy. ??Moderate to severe spinal canal stenosis of the left of midline. ??Ekgyv-sowopiw-imri-left neural foraminal narrowing. T8-T9: Minor disc bulge [...] arthropathy. ??No significant spinal canal stenosis. ?? Pmdg-xg-xatqaers neural foraminal narrowing. T11-T12: No significant disc [...] above findings discussed with ??the patient's nurse Ermelindagissel Enciso ?? Via telephone by me Dr. Virgil Bass on ??04/07/2024 at ??3:03 pm central standard time. ?? THIS IS AN ELECTRONICALLY VERIFIED FINAL REPORT 04/07/2024 3:04 PM - Electronically signed by ??Sean Bass D.O. AP: FABI D: ??04/07/2024 3:04 PM T: ??04/07/2024 3:04 PM Report ID: [id number] Reading Location: ??[id number] Procedure Note Sean Bass, DO - 04/07/2024 [...] facet arthropathy. No significant spinal canal stenosis. Tlhdx-brosqhk-bgdo-left neural foraminal narrowing. T4-T5: Minor disc bulge [...] left. Thickened ligamentum flavum and facet arthropathy. Smug-xn-indvkgtp left ventral spinal canal stenosis. Apipr-egmhtqq-jtih-left neural foraminal narrowing. T7-T8: Disc bulge with marginal spur formation superimposed discprotrusion eccentric to the left compresses the left ventral cord. Thickenedligamentum flavum and facet arthropathy. Moderate to severe spinal canal stenosis ofthe left of midline. Cizfv-ljolnhf-meeo-left neural foraminal narrowing. T8-T9: Minor disc bulge [...] facet arthropathy. No significant spinal canal stenosis. Beas-rg-piwtrlij neural foraminal narrowing. T11-T12: No significant disc [...] patient's nurse Ms. Sanchez Via telephone by nd Dr. Virgil Bass on 04/07/2024 at 3:03 pm centralstandard time. THIS IS AN ELECTRONICALLY VERIFIED FINAL REPORT 04/07/2024 3:04 PM - Electronically signed by Sean Bass D.O. AP: AP Report ID: [id number] Reading Location: [place] [address] Jarad Couch Jr., MD IMG MRI PROCEDURES Final Result * MRI Cervical Spine WO Contrast (04/07/2024 2:22 PM CULTURAL HISTORIAN) Anatomical Region Laterality Modality Spine N/A Magnetic Resonan ce 04/07/2024 2:29 PM CULTURAL HISTORIAN Narrative 04/07/2024 3:10 PM CULTURAL HISTORIAN EXAM DESCRIPTION: ?? MRI CERVICAL SPINE WO [...] disc bulge or spinal canal stenosis. ?? Yafor-fitiedd-fpxt-left uncovertebral spurring and facet arthropathy with kchy-rj-bjxbtgdh right and no significant left neural foraminal narrowing. C3-C4: Retrolisthesis of C3 on C4 with unroofing of the disc. ??Superimposed posterior disc osteophyte complex. ??Thickened ligamentum flavum. ??Moderate spinal canal stenosis. ??Uncovertebral spurring and facet arthropathy with moderate left and cent-ea-fjzobxhu right neural foraminal narrowing. C4-C5: Surgical level. ??Intermediate signal in the ventral spinal canal could be osteophytic ridging or other postoperative change. ??Continued spinal canal narrowing to the right of midline. ??Neural foramen are suboptimally visualized due to metal related artifact, question sgcj-jonpsud-akdg-right neural foraminal narrowing. C5-C6: Surgical level. ??Intermediate signal in the ventral spinal canal to the left of midline abutting the ventral cord as seen previously and could be osteophytic ridging or other postoperative change. ??Continued spinal canal and eibm-cktoolv-jvvt-right neural foraminal narrowing. C6-C7: Posterior disc osteophyte [...] PM T: ??04/07/2024 3:10 PM Report ID: [id number] Reading Location: ??[id number] Procedure Note Sean Bass, DO - 04/07/2024 [...] significant disc bulge or spinal canal stenosis. Efhck-vxqugfy-luqe-left uncovertebral spurring and facet arthropathy with sgeu-zj-bhgxavcm right and no significant left neural foraminal narrowing. C3-C4: Retrolisthesis of C3 on C4 with unroofing of the disc.Superimposed posterior disc osteophyte complex. Thickened ligamentum flavum. Moderate spinal canal stenosis. Uncovertebral spurring and facet arthropathy with moderate left and hjrh-hu-jwgoytpx right neural foraminal narrowing. C4-C5: Surgical level. Intermediate signal in the ventral spinal canalcould be osteophytic ridging or other postoperative change. Continued spinalcanal narrowing to the right of midline. Neural foramen are suboptimallyvisualized due to metal related artifact, question dpvd-kwiqdxz-xxhi-right neural foraminal narrowing. C5-C6: Surgical level. Intermediate signal in the ventral spinal canal tothe left of midline abutting the ventral cord as seen previously and could be osteophytic ridging or other postoperative change. Continued spinal [place] nnxc-kxmmhxi-gtvk-right neural foraminal narrowing. C6-C7: Posterior disc osteophyte [...] patient's nurse Ms. Sanchez Via telephone by nd Dr. Virgil Bass on 04/07/2024 at 3:03 pm centralstandard time. THIS IS AN ELECTRONICALLY VERIFIED FINAL REPORT 04/07/2024 3:10 PM - Electronically signed by Sean Bass D.O. AP: AP Report ID: [id number] Reading Location: [place] [address] Jarad Couch Jr., MD IMG MRI PROCEDURES Final Result * CT Lumbar [...] Computed Tomogra phy Jarad Couch Jr., MD [facility] [place] [place] PROCEDURES F inal Result * XR Scoliosis 6 or More Views (03/16/2024 1:29 PM CULTURAL HISTORIAN) Anatomical Region Laterality Modality Spine N/A Computed Radiogr aphy 03/16/2024 2:21 PM CULTURAL HISTORIAN Impressions 03/16/2024 3:22 PM CULTURAL HISTORIAN 1. ??Anterior cervical discectomy fusion of C4-C6 [...] Dileep Valdez MD Narrative 03/16/2024 3:22 PM CULTURAL HISTORIAN EXAMINATION: XR SCOLIOSIS ??6 OR MORE VIEWS [...] Neuro MR Outside Reference (03/01/2024 6:08 PM CULTURAL HISTORIAN) Impressions RAD_PACS_[facility]J - 03/01/2024 6:08 PM CULTURAL HISTORIAN These images are for Reference purposes only and have not been reviewed by [facility] Radiology. ??There will be no report generated by a [facility] Radiologist. Narrative RAD_PACS_BJ - 03/01/2024 6:08 PM CULTURAL HISTORIAN EXAMINATION: ??Images For Reference Purposes Only Jarad Couch Jr., MD IMG MRI PROCEDURES Final Result RAD_PACS_[facility] * SCAN - RADIOLOGY/IMAGING (02/28/2024 9:36 AM CULTURAL HISTORIAN) Anatomical Region Laterality Modality Other Provider Scanning Final Result * DEXA SCAN (01/06/2024 11:25 AM CDT) Historical Provider HEALTH MAINTENANCE Final Result * Stool DNA - Cologuard (07/09/2022 2:00 PM CDT) Pathologist [facility] Stool DNA - Cologuard Negative Negative [employer] (CLIA #:[id number]) Comment: NEGATIVE TEST RESULT. A negative Cologuard [...] screened with both Cologuard and colonoscopy. (Elizabeth Saavedra al, N Engl J Med 2014;370(14):1286- 1297) The normal value (reference range) for this assay is negative. COLOGUARD RE-SCREENING RECOMMENDATION: Periodic colorectal cancer screening is an important part of preventive healthcare for asymptomatic individuals at average risk for colorectal cancer. ??Following a negative Cologuard result, the [place] [employer] Society and U.S. Multi-Society Task Force screening guidelines recommend a Cologuard re-screening interval of 3 years. References: [place] [employer] Guideline for Colorectal Cancer Screening: https://www.cancer.org/cancer/ckqkz-fnmcqe-szrmiv/ukvqvgfrb-zgyhoycst-hrpdnya/ac s-rec ommendations.html.; Carlo DK, Channing CR, Mirtha DawsonK, Colorectal Cancer Screening: Recommendations for Physicians and Patients from the U.S. Multi-Society Task Force on Colorectal Cancer Screening , Am J Gastroenterology 2017; 112:4762-2044. TEST DESCRIPTION: Composite algorithmic analysis of stool [...] screened with both Cologuard and colonoscopy. (Elizabeth Saavedra al, N Engl J Med 2014;370(14):9625-0822.) Cologuard may produce a false negative or false positive result (no colorectal cancer or precancerous polyp present at colonoscopy follow up). A negative Cologuard test result does not guarantee the absence of CRC or advanced adenoma (pre-cancer). The current Cologuard screening interval is every 3 years. ([place] [employer] Society and U.S. Multi-Society Task Force). Cologuard performance data in a 10,000 patient pivotal study using colonoscopy as the reference method can be accessed at the following location: www.[employer].Qian Xiao'er/results. Additional description of the Cologuard test process, warnings and precautions can be found at www.[employer].Qian Xiao[employer]er. Stool 07/09/2022 2:00 PM CDT 07/10/2022 3:33 PM CDT Bhargav Wilkes MD LAB BODY FLUIDS AND STOOLS ORDERABLES Final Result Performing Organization Address [facility] de Phone Number [facility] (CLIA #:[id number]) [place] [address] * Hepatitis C antibody (04/15/2022 2:07 PM CULTURAL HISTORIAN) Hep C Ab Nonreactive Nonreactive LELA ZEPEDA [...] revised on 2019. Blood 04/15/2022 2:07 PM CULTURAL HISTORIAN 04/15/2022 8:10 PM CULTURAL HISTORIAN Bhargav Wilkes MD LAB MICROBIOLOGY - GENERAL ORDERABLES Final Result Performing Organization Address [facility] de Phone Number [facility] [address] [address] Department [place] [address] from Last 3 Months or Most Recently Relevant to Health Maintenance Insurance MEDICARE [facility] SENIOR SUPPLEMENT MEDICARE [place] [address] Care Teams Group Practice Pediatrician Relationship Specialty Start Date End Date Bhargav Wilkes MD [address] [place] [address] PCP - General Family Medicine 04/15/22 [place] [address] [place] [address] Referring Physician Physical Medicine and Rehabilitation 12/30/22
--- OUTSIDE RECORDS SUMMARY | 2024-04-13 08:33 | XMS_ITS | Encounter Summary ---
Author Organization [facility] Healthcare Address [address] [place] [address] Care Team Providers Care Ice Cream Vault Worker Name Role Phone Bhargav Wilkes MD Primary Care Provider Be Rangel DO Unavailable [phone] Reason for Visit * Reason Onset Date Comments Medical Question/Miscellaneous 05/28/2023 Encounter Details Date Type Department Care Team (Late st Contact Info) Description 05/28/[address] 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 MANAGER relayed the only imaging the lab does is X-Rays (Per the PPS sheet). Patient understood. Does message need to be routed? No EROOM SUPERVISOR documented in this encounter Plan of Treatment Not on file documented as of this encounter Visit Diagnoses Not on filedocumented in this encounter Care Teams Ice Cream Vault Worker Relationship Specialty Start Date End Date Bhargav Wilkes MD [address] [place] [address] PCP - General Family Medicine 04/15/22 [place] [address] [place] [address] Referring Physician Physical Medicine and Rehabilitation 12/30/22 documented as of this encounter
--- OUTSIDE RECORDS SUMMARY | 2024-04-13 08:33 | XMS_ITS | Encounter Summary ---
Author Organization [facility] Healthcare Address [address] [place] [address] Care Team Providers Care Dog Groomer Name Role Phone Bhargav Wilkes MD Primary Care Provider Be Rangel DO Unavailable [phone] Reason for Visit * Reason Onset Date Comments Medical Question/Miscellaneous 01/03/2024 Encounter Details Date Type Department Care Team (Late st Contact Info) Description 01/03/2024 Telephone [facility] Medical Group Primary Care at [address] [address] Bhargav Wilkes MD [address] [place] [address] [address] [place] [address] Medical Question/Miscellaneous Social History Tobacco [...] on file 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 Advised order has been placed and to call back if facility does not have order and this will be taken care of right away. Does message need to be routed? No * Telephone Encounter - Candis Smart - 01/03/2024 12:39 PM CDT Medical Question/Miscellaneous Caller???s Concern: Aleksandar calling requesting the diagnosis codes for pt's Dexa Does message need to be routed? No documented in this encounter Plan of Treatment Not on file documented as of this encounter Visit Diagnoses Not on filedocumented in this encounter Care Teams Dog Groomer Relationship Specialty Start Date End Date Bhargav Wilkes MD [address] [place] [address] PCP - General Family Medicine 04/15/22 [place] [address] [place] [address] Referring Physician Physical Medicine and Rehabilitation 12/30/22 documented as of this encounter
--- OUTSIDE RECORDS SUMMARY | 2024-04-13 08:33 | XMS_ITS | Encounter Summary ---
Author Organization [facility] Healthcare Address [address] [place] [address] Care Team Providers Care Livestock Rancher Name Role Phone Bhargav Wilkes MD Primary Care Provider [phone] Be Rangel DO Unavailable [phone] Encounter Details Date Type Department Care Team (Latest Contact Info) Description 05/27/2023 7:45 AM DEPARTMENT EDITOR - 05/27/2023 11:59 PM DEPARTMENT EDITOR Hospital Encounter [facility] Orthopedics and Sports Medicine [address] [address] Discharge Disposition: Discharge to home or self care Social History Tobacco Use Types Packs/Day Years [...] on file Legal Sex Female 1:00 AM DEPARTMENT EDITOR Gender Identity Not on file Sexual Orientation Not on file documented as of this encounter Medications at Time of Discharge ascorbic acid (VITAMIN C) 500 mg tablet,chewable baclofen (LIORESAL) 10 mg tablet TAKE 2 TABLETS BY MOUTH 4 TIMES DAILY 03/10/2022 calcium carbonate-vitami n D3 1,250 mg (500 mg elemental)-400 unit chewable tablet Take 1 tablet by mouth daily cholecalciferol (VITAMIN D-3) 1,000 unit capsule Take 1 capsule (1,000 Units total) by mouth daily cranberry fruit 400 mg tablet Take 1 tablet by mouth daily cyanocobalamin (Vitamin B-12) 100 mcg tabletIndication s:Prevention of Vitamin B12 Deficiency Take 1 tablet (100 mcg total) by mouth daily docosahexaenoic acid/epa (FISH OIL ORAL) Take by mouth folic acid (FOLVITE) 800 mcg tablet Take 0.5 tablets (400 mcg total) by mouth daily polyethylene glycol (MIRALAX) 17 gram/dose powder 09/01/2021 pregabalin (Lyrica) 75 mg capsule 2 (two) times a day amitriptyline (ELAVIL) 25 mg tablet Take 1 tablet (25 mg total) by mouth daily 10/09/2022 4 diazePAM (VALIUM) 5 mg tablet Take 0.5 tablets (2.5 mg total) by mouth nightly 12/24/2021 4 magnesium oxide (MAG-OX) 250 mg (150.8 mg elemental) tabletIndication s:hypomagnesemia 1 tablet (250 mg total) daily 4 miscellaneous medical supply [facility] 1 each daily 1 adjustable compression leg wrap that delivers the desired compression level 2 compressive undersocks that provide 15-25 mmHg of compression in the foot and ankle area to address edema and promote blood flow from the foot. Additionally works to secure and stabilize a dressing on a wound and prevents soiling of the compression wrap. 1 Pzfir-no-Latwunzm System or BPS card that measures the compression level applied by the wrap Bilat lower extremities 2 each 01/06/[address] (PROTONIX) 40 mg EC tablet Take 1 tablet (40 mg total) by mouth chief engineer before breakfast 04/17/2021 4 potassium &magnesium aspartate (MAGNESIUM, POTASSIUM ASPARTATE ORAL) Take by mouth 4 traZODone (DESYREL) 50 mg tablet Take 1 tablet (50 mg total) by mouth nightly 90 tablet 3 09/02/2022 4 ZINC ORAL Take by mouth 4 documented as of this encounter Discharge Disposition Disposition Code Departure Means Destination Discharge to home or self care documented in this encounter Plan of Treatment Not on file documented as of this encounter Procedures Procedure Name Priority Date/Time Associated Diagnosis Comments XR KNEE RIGHT 4 OR MORE VIEWS Schedule Routine, Read Routine (OP Routine) 05/27/2023 10:34 AM DEPARTMENT EDITOR Right knee pain, unspecified chronicity documented in this encounter Results * XR Knee Right 4 or More Views (05/27/2023 10:34 AM DEPARTMENT EDITOR) Anatomical Region Laterality Modality Lower Extremities, Knee Right Digital Radiography Narrative 05/27/2023 11:50 AM DEPARTMENT EDITOR Radiographs taken of the right knee today reveal moderate degenerative changes with subchondral sclerosis, osteophyte formation, and diminished medial joint space. Janelle AGUAYO IMG XR PROCEDURES Fin al Result documented in this encounter Visit Diagnoses Not on filedocumented in this encounter Care Teams Livestock Rancher Relationship Specialty Start Date End Date Bhargav Wilkes MD [address] [place] [address] PCP - General Family Medicine 04/15/22 [place] [address] [place] [address] Referring Physician Physical Medicine and Rehabilitation 12/30/22 documented as of this encounter
--- OUTSIDE RECORDS SUMMARY | 2024-04-13 08:33 | XMS_ITS | Encounter Summary ---
Author Organization [facility] Healthcare Address [address] [place] [address] Care Team Providers Care Cotton Factor Name Role Phone Bhargav Wilkes MD Primary Care Provider [phone] Be Rangel DO Unavailable [phone] Reason for Referral * Diagnostic Imaging (Routine) - Closed Specialty Diagnoses / Procedures Referred By Contac t Referred To Contact Diagnoses Breast cancer screening by mammogram Procedures SCREENING MAMMOGRAM BILATERAL W SMITH Bhargav Wilkes MD [address] [facility] [address] [place] [address] Phone: tel: fax: External Order Referral ID Status Reason Start Date Expiration Date Visits Re quested Visits Authorized [id number] Closed 06/30/2023 07/29/2024 1 1 * Diagnostic Imaging (Routine) - Closed Specialty Diagnoses / Procedures Referred By Contac t Referred To Contact Diagnoses Screening for osteoporosis Asymptomatic menopausal state Procedures Dexa Axial Skeleton Bone Density 1 or 2 Site Bhargav Wilkes MD [address] [facility] [address] [place] [address] Phone: tel: fax: External Order Referral ID Status Reason Start Date Expiration Date Visits Re quested Visits Authorized [id number] Closed 06/30/2023 07/29/2024 1 1 Reason for Visit * Reason Comments Medicare Annual Wellness Visit Toma hodgson Medicare wellness exam Encounter Details Date Type Department Care Team (Late st Contact Info) Description 06/30/2023 2:00 PM CDT Office Visit [facility] Primary Care at [address] [address] Bhargav Wilkes MD [address] [place] [address] [address] [place] [address] Medicare annual wellness visit, initial (Primary Dx); Screening for osteoporosis; Asymptomatic menopausal state; Breast cancer screening by mammogram; Cord compression (HCC); Brown-Sequard syndrome (CMS/HCC) (HCC); Primary hypertension; Gastroesophageal reflux disease without esophagitis; Class 2 severe obesity due to excess calories with serious comorbidity and body mass index (BMI) of 39.0 to 39.9 in adult (HCC) Social History Tobacco Use Types Packs/Day Years [...] points, staff should administer the PHQ-9) 0 06/30/2023 Comments Unknown Sex and Gender Information Value Date Recorded Sex Assigned at Not on file Legal Sex Female 1:00 AM LATHMAKER Gender Identity Not on file Sexual Orientation Not on file documented as of this encounter Last Filed Vital Signs Vital Sign Reading Time Taken Comments Blood Pressure 116/80 06/30/2023 2:16 PM CDT Pulse 79 06/30/2023 2:16 PM CDT Temperature 36 ??C (96.8 ??F) 06/30/2023 2:16 PM CDT Respiratory Rate 16 06/30/2023 2:16 PM CDT Oxygen Saturation - - Inhaled Oxygen Concentration - - Weight 102.1 kg (225 lb) 06/30/2023 2:16 PM CDT Height 160 cm (5' 3 ) 06/30/2023 2:16 PM CDT Body Mass Index 39.86 06/30/2023 2:16 PM CDT documented in this encounter Patient Instructions * Patient Instructions* Bhargav Wilkes MD - 06/30/2023 2:00 PM CDT Zepbound trial; if not covered we may have to try alternative like phentermine BP is controlled Labs ordered for next visit Weight reduction can be difficult, especially as we age. The concept of weight reduction must take into account the types of foods eaten, activity/exercise, and energy in being less than energy out. The basal metabolic rate (BMR) is the amount of energy that your body will burn at rest in a day, performing basic, autonomic/automatic functions. Calculating the BMR accurately will require complex measurements in a controlled environment, which is difficult to do. However, there are ways to estimate the BMR: Https://www.[employer]/fitness/calculators/bmr https://www.calculator.net/bmr-calculator.html https://www.bmi-calculator.net/bmr-calculator/ This measure can be used to estimate for the purpose of roughly guessing the amount of calorie-intake needed to sustain a caloric deficit. It should be adjusted based on usual level of activity. Roughly, multiply the BMR by 1.55 if you exercise 3-5 days per week. Multiply by 1.725 if you exercise 6-7 days a week. Multiply by 1.9 if you are even more active than that. 1.2 would be the factor if you are inactive (not exercising). With this, you can calculate your energy deficit by subtracting the estimated caloric intake from the adjusted BMR. Typically, I recommend 500-700 calorie deficit; going much more than that risks putting the body into 'starvation' mode, which can blunt any benefits from the calorie deficit and indeed lead to increase in fat stores rather than burning them. Thanks for coming in today! My medical assistants and I are thankful you have trusted us with your care, and hope that you received EXCELLENT care today! Please do not hesitate to call if you have any questions or concerns at [phone]. You may receive a phone call, text, MYCHART message, or e-mail asking about your care today. We would love to hear your feedback on how EXCELLENT your care wastoday! Wishing you better health, always. Dr. Wilkes * Attachments The following attachments cannot be sent through Care Everywhere. * Tirzepatide (By injection) (Botswanan) * DASH Eating Plan (General Information) (Botswanan) documented in this encounter Ordered Prescriptions Prescription Sig Dispense Quantity Refills Last Filled Start Date End Date tirzepatide, weight loss, (Zepbound) 2.5 mg/0.5 mL pen injectorIndication s:Weight Loss Management for Obese Patient (BMI >= 30) Inject 0.5 mL (2.5 mg total) under the skin once a week 2 mL 1 06/30/2023 11/01/2023 documented in this encounter Progress Notes * Bhargav Wilkes MD - 06/30/2023 2:00 PM CDT MEDICARE ANNUAL WELLNESS VISIT Hailee Tanner Medicare Health Risk Assessment Basic Information In general, would you say your health is: (!) Poor Do you have an advance directive, such as a living will or durable power of title attorney?: Yes Do you have to strain or struggle to hear/understand conversations?: No Have you experienced any of the following problems currently or recently? Eating: No Grooming: No Bathing: No Walking: No Using the toilet: No Memory problems: No Difficulty speaking: No Dressing: No Balance: No Pain: No Sexual Health: No Fatigue: No Have you experienced any of the following problems currently or recently? Laundry and/or housekeeping: No Handling money: No Shopping: No Using the Phone: No Food preparation: No Transportation: No Taking and/or getting your own medications: No Do you use prescription drugs that are not prescribed for you?: No Do you struggle with any of the following: depression, stress, anger, loneliness or social isolation?: No Problem List, Past Medical and Surgical History: Patient Active Problem List Diagnosis Acute medial meniscus tear of right knee Arthritis Brown-Sequard syndrome (CMS/HCC) (HCC) Cervical spondylosis with radiculopathy Cord compression (HCC) GERD (gastroesophageal reflux disease) HTN (hypertension) Hyponatremia Neck pain Neurological deficit present Urinary retention Medicare annual wellness visit, initial Family history of diabetes mellitus Past Medical History: Diagnosis Date Acute bronchitis 10/2017 resolved with antibiotics Anxiety Arthritis knee--right GERD (gastroesophageal reflux disease) NOT very well controlled with meds, still trying to control Hiatal hernia Hoarseness of voice lasted for 3 months, ENT told patient thought it was secondary to reflux Hypertension well controlled with meds Myocardial infarction (HCC) 2007 possibly, per patient, told per EKG. Not followed by MD--no f/u indicated per pt--this was done in an ER PONV (postoperative nausea and vomiting) Past Surgical History: Procedure Laterality Date BACK SURGERY 03/2021 SECTION x2 HYSTERECTOMY 1987 KNEE ARTHROSCOPY NECK SURGERY Family History: Family History Problem Relation Age of Onset Diabetes Mother Cancer Mother Hypertension Mother COPD Mother Irritable bowel syndrome Mother COPD Father Cancer Father Hypertension Father Hypertension Sister Diabetes Sister Hypertension Brother Diabetes Daughter Social History: Social History Tobacco Use Smoking status: Former Current packs/day: 0.00 Average packs/day: 0.5 packs/day for 7.7 years (3.9 ttl pk-yrs) Types: Cigarettes Start date: 1980 Quit date: 01/11/1988 Years since quittin.4 Smokeless tobacco: Never Substance and Sexual Activity Drug use: No Sexual activity: Defer Alcohol Use: Not At Risk (12/30/2022) AUDIT-C Frequency of Alcohol Consumption: 2-4 times a month Average Number of Drinks: 1 or 2 Frequency of Binge Drinking: Never Allergies: Allergies Allergen Reactions Codeine Stomach upset Oxycodone Nausea And Vomiting Medications: Current Outpatient Medications: amitriptyline (ELAVIL) 25 mg tablet, Take 1 tablet (25 mg total) by mouth daily, Disp: , Rfl: ascorbic acid (VITAMIN C) 500 mg tablet,chewable, [...] total) by mouth daily, Disp: , Rfl: magnesium oxide (MAG-OX) 250 mg (150.8 mg elemental) tablet, 1 tablet (250 mg total) daily, Disp: ,Rfl: NOT IN DATABASE, PRESCRIPTION,, Drug name: [facility] Route: oral Frequency, Disp: , Rfl: pantoprazole DR (PROTONIX) 40 mg EC tablet, Take 1 tablet (40 mg total) by mouth sap bi architect before breakfast, Disp: , Rfl: polyethylene glycol (MIRALAX) 17 gram/dose powder, , Disp: , Rfl: pregabalin (Lyrica) 75 mg capsule, 2 (two) times a day, Disp: , Rfl: miscellaneous medical supply [facility], 1 each daily 1 adjustable compression leg wrap that delivers thedesired compression level 2 compressive undersocks that provide 15-25 mmHg of compression in the foot and ankle area to address edema and promote blood flow from the foot. Additionally works to secure and stabilize a dressing on a wound and prevents soiling of the compression wrap. 1 Gvzlj-fs-Umcizhqs System or BPS card that measures the compression level applied by the wrap Bilat lower extremities (Patient not taking: Reported on 06/30/2023), Disp: 2 each, Rfl: 0 potassium &magnesium aspartate (MAGNESIUM, POTASSIUM ASPARTATE ORAL), Take by mouth (Patient not taking: Reported on 06/30/2023), Disp: , Rfl: traZODone (DESYREL) 50 mg tablet, Take 1 tablet (50 mg total) by mouth nightly (Patient not taking:Reported on 06/30/2023), Disp: 90 tablet, Rfl: 3 ZINC ORAL, Take by mouth (Patient not taking: Reported on 06/30/2023), Disp: , Rfl: Depression Screen: PHQ Screening Over the past 2 weeks, how often have you been bothered by any of the following problems? Little Interest or Pleasure in Doing Things: Not at all Feeling Down, Depressed, or Hopeless: Not at all PHQ-2 Total Score (If total score is 3 or more points, staff should administer the PHQ-9): 0 STEADI Fall Risk Screening In the past year, patient experienced: One or more falls in the last year: No Has trouble stepping up onto a curb: No Advised to use a cane or walker to get around safely: Yes Often has to vivar to the toilet: Yes Feels unsteady when walking: Yes Has lost some feeling in feet: Yes Steadies self on furniture while walking at home: No Takes medicine that makes him/her feel lightheaded or more tired than usual: No Worried about falling: No Takes medicine to sleep or improve mood: No Needs to push with hands when rising from a chair: No Often feels sad or depressed: No STEADI Score Total: 5 Vitals: Vitals BP 116/80 Pulse 79 Temp 36 ??C (96.8 ??F) Resp 16 Ht 160 cm (5' 3 ) Wt 102.1 kg (225 lb) BMI 39.86 kg/m?? Body mass index is 39.86 kg/m??. Exam: Physical Exam Vitals reviewed. Constitutional: Appearance: She is obese. HENT: Head: Normocephalic and atraumatic. Eyes: General: No scleral icterus. Cardiovascular: Rate and Rhythm: Normal rate and regular rhythm. Heart sounds: No murmur heard. No friction rub. No gallop. Pulmonary: Breath sounds: No wheezing, rhonchi or rales. Abdominal: Tenderness: There is no abdominal tenderness. Musculoskeletal: Right lower leg: No edema. Left lower leg: No edema. Neurological: Mental Status: She is alert and oriented to person, place, and time. Mental status is at baseline. Psychiatric: Mood and Affect: Mood normal. Care Team Providers: Patient Care Team: Bhargav Wilkes MD as PCP - General (Family Medicine) Be Rangel DO as Referring Physician (Physical Medicine and Rehabilitation) Primary Pharmacy/DME suppliers: [id number] - [place], [place] - [address] [facility] [address] [place] [address] [facility] - [place], [place] - [address] [facility] [address] [facility] [address] Detection of Cognitive Impairment: The patient does not have cognitive impairment based on direct observation, discussion with patientor family, or review of medical records. Health Maintenance: Health Maintenance Topics with due status: Overdue Topic Date Due Osteoporosis Screening-Bone Density Scan Never done Breast Cancer Screening-Mammogram 01/29/2023 Health Maintenance Topics with due status: Not Due Topic Last Completion Date DTaP/Tdap/Td Vaccine 11/11/2013 Colon Cancer Screening-DNA Stool 07/09/2022 Fall Risk Assessment 06/30/2023 Depression Screening-PHQ 06/30/2023 Well Visit 65+ 06/30/2023 Health Maintenance Topics with due status: Completed Topic Last Completion Date Hepatitis C Screening 04/15/2022 Zoster Vaccine 05/04/2022 Pneumococcal vaccine 65+ 05/04/2022 Covid-19 Vaccine 02/19/2023 Influenza Vaccine 02/19/2023 Health Maintenance Topics with due status: Discontinued Topic Date Due Colon Cancer Screening-FIT Discontinued Counseling and Referral of Preventative Services: Lifestyle Recommendations Increase Physical Activity, Reduce Weight, and Improve Diet Advanced Directive Durable 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 Hailee Tanner is not up to date on screening tests. She is in need of DEXA and Breast cancer screening. She is up to date on needed preventative vaccinations. We discussed healthy lifestyle habits, educational material has beengiven. Medications reviewed, changes documented as per the medical record and discussed with patient along with risks vs benefits. Return in 6 months Screening for osteoporosis - Dexa Axial Skeleton Bone Density 1 or 2 Site; Future Asymptomatic menopausal state - Dexa Axial Skeleton Bone Density 1 or 2 Site; Future Breast cancer screening by mammogram - SCREENING MAMMOGRAM BILATERAL W SMITH; Future Cord compression (HCC) Brown-Sequard syndrome (CMS/HCC) (HCC) Primary hypertension - CBC with auto differential; Future - Comprehensive metabolic panel; Future - Lipid panel; Future - Thyroid Function [place]; Future Gastroesophageal reflux disease without esophagitis - CBC with auto differential; Future Class 2 severe obesity due to excess calories with serious comorbidity and body mass index (BMI) of39.0 to 39.9 in adult ([facility]) - tirzepatide, weight loss, (Zepbound) 2.5 mg/0.5 mL pen injector; Inject 0.5 mL (2.5 mg total) under the skin once a week Patient here for annual Medicare wellness visit and for review of complete medical problem list. All the elements of the plan were completed as outlined by [facility]. A copy of the prevention plan was given to the patient. I reviewed Medicare Wellness Questionnaire (other physicians involved in care, depression screen, advanced directives), cognitive/memory, and functional assessment. I reviewed and updated the complete problem list, medication list, family history, and immunization records with the patient. I provided preventive counseling and early detection interventions to the patient through health maintenance update and summary of today's office visit. documented in this encounter Miscellaneous Notes * Assessment & Plan Note - Bhargav Wilkes MD - 06/30/2023 2:20 PM CDT Associated Problem(s): Medicare annual wellness visit, initial A(n) yearly Medicare Annual Wellness Visit has been performed today. Hailee Tanner is not up to date on screening tests. She is in need of DEXA and Breast cancer screening. She is up to date on needed preventative vaccinations. We discussed healthy lifestyle habits, educational material has beengiven. Medications reviewed, changes documented as per the medical record and discussed with patient along with risks vs benefits. Return in 6 months documented in this encounter Plan of Treatment Scheduled Orders Name Type Priority Associated Diagnoses Orde r Schedule Dexa Axial Skeleton Bone Density 1 or 2 Site Imaging Schedule Routine, Read Routine (OP Routine) Screening for osteoporosis Asymptomatic menopausal state Expected: 06/30/2023, Expires: 06/29/2024 SCREENING MAMMOGRAM BILATERAL W SMITH Imaging Schedule Routine, Read Routine (OP Routine) Breast cancer screening by mammogram Expected: 06/30/2023, Expires: 08/29/2024 CBC with auto differential Lab Routine Primary hypertension Gastroesophageal reflux disease without esophagitis Expected: 12/31/2023, Expires: 06/29/2024 Comprehensive metabolic panel Lab Routine Primary hypertension Expected: 12/31/2023, Expires: 06/29/2024 Lipid panel Lab Routine Primary hypertension Expected: 12/31/2023, Expires: 06/29/2024 Thyroid Function [place] Lab Routine Primary hypertension Expected: 12/31/2023, Expires: 06/29/2024 documented as of this encounter Visit Diagnoses Diagnosis Medicare annual wellness visit, initial- Primary Screening for osteoporosis Special screening for osteoporosis Asymptomatic menopausal state Breast cancer screening by mammogram Cord compression ([facility]) Unspecified disease of spinal cord 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 Primary hypertension Unspecified essential hypertension Gastroesophageal reflux disease without esophagitis Esophageal reflux Class 2 severe obesity due to excess calories with serious comorbidity and body mass index (BMI) of 39.0 to 39.9 in adult (HCC) documented in this encounter Discontinued Medications Medication Sig Discontinue Reason Start Date End Da te ZINC ORAL Take by mouth 06/30/2023 traZODone (DESYREL) 50 mg tablet Take 1 tablet (50 mg total) by mouth nightly 09/02/2022 06/30/2023 miscellaneous medical supply mis 1 each daily 1 adjustable compression leg wrap that delivers the desired compression level 2 compressive undersocks that provide 15-25 mmHg of compression in the foot and ankle area to address edema and promote blood flow from the foot. Additionally works to secure and stabilize a dressing on a wound and prevents soiling of the compression wrap. 1 Tmmna-rd-Xztfnrmh System or BPS card that measures the compression level applied by the wrap Bilat lower extremities 01/06/2023 06/30/2023 potassium &magnesium aspartate (MAGNESIUM, POTASSIUM ASPARTATE ORAL) Take by mouth 06/30/2023 documented as of this encounter Historical Medications * This list may reflect changes made after this encounter. furosemide (LASIX) 20 mg tablet Take 1 tablet (20 mg total) by mouth daily as needed NOT IN DATABASE, PRESCRIPTION, Drug name: umary Route: oral Frequency 04/10/2024 added in this encounter Care Teams Cotton Factor Relationship Specialty Start Date End Date Bhargav Wilkes MD [address] [place] [address] PCP - General Family Medicine 04/15/22 [place] [address] [place] [address] Referring Physician Physical Medicine and Rehabilitation 12/30/22 documented as of this encounter
--- OUTSIDE RECORDS SUMMARY | 2024-04-13 08:33 | XMS_ITS | Encounter Summary ---
Author Organization [facility] Address [address] [facility] [address] [place] [address] Care Team Providers Care Metal Weigher Name Role Phone Bhargav Wilkes MD Primary Care Provider Be Rangel DO Unavailable [phone] Reason for Visit * Reason Comments Follow-up Would like to see ab out getting a new walker. - Pt compains about a red spot on the back of her left calf. 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 Gender Identity Not on file Sexual Orientation Not on file documented as of this encounter Last Filed Vital Signs Vital Sign Reading Time Taken Comments Blood Pressure 122/78 12/30/2022 1:18 PM CDT Pulse 65 12/30/2022 1:18 PM CDT Temperature 36.9 ??C (98.5 ??F) 12/30/2022 1:18 PM CD T Respiratory Rate 17 12/30/2022 1:18 PM CDT Oxygen Saturation 97% 12/30/2022 1:18 PM CDT Inhaled Oxygen Concentration - - Weight 95.9 kg (211 lb 8 oz) 12/30/2022 1:18 PM CDT Height 160 cm (5' 3 ) 12/30/2022 1:18 PM CDT Body Mass Index 37.47 12/30/2022 1:18 PM CDT documented in this encounter Patient Instructions * Patient Instructions* Bhargav Wilkes MD - 12/30/2022 1:00 PM CDT Resume using [employer] darryl Awaiting labs Continuing current regimen Use moisturizing, protective lotion to prevent breakdown. Weight reduction can be difficult, especially as [...] there are ways to estimate the BMR: Https://www.buildabrand.Qstream/fitness/calculators/bmr https://www.calculator.net/bmr-calculator.html https://www.bmi-calculator.net/bmr-calculator/ This measure can be used [...] you have any questions or concerns at [phone]. You may receive a phone call, text, MYCHART message, or e-mail asking about your care today. We would love to hear your feedback on how EXCELLENT your care wastoday! Wishing you better health, always. Dr. Wilkes documented in this encounter Progress Notes * Bhargav Wilkes MD - 12/30/2022 1:00 PM CDT Images from the original note were not included. Subjective/Objective Patient ID: Hailee Tanner is a 67 y.o. female. Chief Complaint Follow-up (Would like to see about getting a new walker. /- Pt compains about a red spot on the back of her left calf. /- Concerned about diabetes and weight gain /- Also wants opinions on vaccinations ) She notes a spot on her left calf, has been there for a while but shehadn't realized it was there. sg Hypertension This is a chronic problem. Pertinent negatives include no anxiety, blurred vision, chest pain, headaches, malaise/fatigue, neck pain, orthopnea, palpitations, peripheral edema, PND, shortness of breath or sweats. GERD She reports no chest pain, no early satiety or no heartburn. This is a recurrent problem. The problem occurs occasionally. The problem has been waxing and waning. The symptoms are aggravated by certain foods. Pertinent negatives include no fatigue. She has tried a PPI for the symptoms. The treatment provided moderate relief. Current Outpatient Medications: amitriptyline (ELAVIL) 25 mg [...] tablet (250 mg total) daily, Disp: ,Rfl: pregabalin (Lyrica) 75 mg capsule, 2 (two) times a day, Disp: , Rfl: walker [facility] [place], Length of Need: 99 months Ht Readings from Last 1 Encounters: 01/28/22 : 5' 3.5 (1.613 m) , . If over 300 lbs, patient requires heavy duty. Type of walker:Rollator, Disp: , Rfl: miscellaneous medical supply misc, Compression stocking with a zipper (Patient not taking: Reportedon 11/11/2022), Disp: , Rfl: pantoprazole DR (PROTONIX) 40 mg EC tablet, Take 40 mg by mouth blood coordinator before breakfast (Patient not taking: Reported on 11/11/2022), Disp: , Rfl: polyethylene glycol (MIRALAX) 17 gram/dose powder, , Disp: , Rfl: potassium &magnesium aspartate (MAGNESIUM, POTASSIUM ASPARTATE ORAL), Take by mouth (Patient not taking: Reported on 11/11/2022), Disp: , Rfl: traZODone (DESYREL) 50 mg tablet, Take 1 tablet (50 mg total) by mouth nightly (Patient not taking:Reported on 11/11/2022), Disp: 90 tablet, Rfl: 3 ZINC ORAL, Take by mouth (Patient not taking: Reported on 11/11/2022), Disp: , Rfl: Review of Systems Constitutional: Negative for fatigue, fever and malaise/fatigue. Eyes: Negative for blurred vision. Respiratory: Negative for shortness of breath. Cardiovascular: Negative for chest pain, palpitations, orthopnea and PND. Gastrointestinal: Negative for heartburn. Endocrine: Positive for polydipsia and polyphagia. Negative for polyuria. Genitourinary: Positive for difficulty urinating. Negative for frequency and urgency. Musculoskeletal: Negative for neck pain. Neurological: Negative for headaches. BP 122/78 (BP Location: Left arm, Patient Position: Sitting) Pulse 65 Temp 36.9 ??C (98.5 ??F) (Temporal) Resp 17 Ht 160 cm (5' 3 ) Wt 95.9 kg (211 lb 8 oz) SpO2 97% BMI 37.47 kg/m?? Physical Exam Vitals reviewed. Constitutional: Appearance: She is obese. HENT: Head: Normocephalic and atraumatic. Cardiovascular: Rate and Rhythm: Normal rate and regular rhythm. Heart sounds: No murmur heard. No friction rub. No gallop. Pulmonary: Breath sounds: No wheezing, rhonchi or rales. Neurological: Mental Status: She is alert. No visits with results within 1 Month(s) from this visit. Latest known visit with results is: Hospital Outpatient Visit on 11/11/2022 Component Date Value Ref Range Status Report 11/11/2022 Final Value:Final Report: Less than 100,000 colonies/mL (clinically insignificant growth based on current clinical standards) Testing performed by: [facility], [address] [place]., [address] Organism 11/11/2022 (CLINICALLY INSIGNIFICANT GROWTH Final Assessment/Plan Diagnoses and all orders for this visit: Primary hypertension (Primary) Comments: BP is fine, no current rx awaiting labs Gastroesophageal reflux disease without esophagitis Comments: symptoms controlled using PRN and herbals Family history of diabetes mellitus - Hemoglobin A1c; Future Brown-Sequard syndrome (CMS/HCC) (HCC) Comments: neurosurg has discharged, as no more done still doing rehab, that is helping Juxtas? Patient needs walker to assist with her/his ADL's and to enable moving around his/her home without difficulty He/She is able to maintain her balance with a walker in order to the form his/her ADL's. Patient cannot use a cane due to problems with balance secondary to his/her chronic conditions. Patient would benefit for having a Roya walker as suggested by her PM&R physcian so the patient can rest in between ADL's. Bhargav Wilkes MD This office note has been partially dictated using [employer] software, and as a result portions of the record may have been created with this software. Occasional wrong-word or '[id number]' substitutions may have occurred due to the inherent limitations of voice recognition software. Read the chartcarefully and recognize, using context, where substitutions have occurred. 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 walker misc Length of Need: 99 months Ht Readings from Last 1 Encounters: 01/28/22 : 5' 3.5 (1.613 m) , . If over 300 lbs, patient requires heavy duty. Type of walker:Rollator 12/30/2022 01/06/2023 added in this encounter Care Teams Metal Weigher Relationship Specialty Start Date End Date Bhargav Wilkes MD [address] [place] [address] PCP - General Family Medicine 04/15/22 [place] [address] [place] [address] Referring Physician Physical Medicine and Rehabilitation 12/30/22 documented as of this encounter
--- OUTSIDE RECORDS SUMMARY | 2024-04-13 08:33 | XMS_ITS | Encounter Summary ---
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 Please advise documented in this encounter Plan of Treatment Not on file documented as of this encounter Visit Diagnoses Not on filedocumented in this encounter Care Teams Baked Goods Stock Clerk Relationship Specialty Start Date End Date Bhargav Wilkes MD [address] [place] [address] PCP - General Family Medicine 04/15/22 [place] [address] [place] [address] Referring Physician Physical Medicine and Rehabilitation 12/30/22 documented as of this encounter
--- OUTSIDE RECORDS SUMMARY | 2024-04-13 08:33 | XMS_ITS | Encounter Summary ---
Author Organization [facility] Address [address] [place] [address] Phone Care Team Providers Care Flexo Press Operator Name Role Phone Bhargav Wilkes MD Primary Care Provider [phone] Be Rangel DO Unavailable [phone] Reason for Visit * Reason Onset Date Comments Scheduling Appointments 02/25/2024 Encounter Details Date Type Department Care Team (Late st Contact Info) Description 02/25/2024 Telephone [facility] Orthopaedic Surgery [address] [facility] Medical Office Building [address] [place] [address] Jarad Couch Jr., MD [address] [facility] [address] [place] [address] Scheduling Appointments Social History Tobacco Use Types Packs/Day Years Used Date Smoking Tobacco: Former Cigarettes 0.5 7.7 0 04/12/1980 - 01/11/1988 Smokeless Tobacco: Never AUDIT-C Answer [...] on file 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 Couch, per Dr. Couch's request. An appointment was scheduled for 03/16 at [facility]. Symptoms: leg spasms mostly in the right, but occasionally in leg. Reports dropping things and numbness in her fingers. 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 She says she has been progressing with physical therapy and is able to walk with a walker and drive now. Work Up Xrays: No MRI: 06/2022 CT: No PT/when: currently, started 2 years ago CLE SERVICE ATTENDANT documented in this encounter Plan of Treatment Not on file documented as of this encounter Visit Diagnoses Not on filedocumented in this encounter Care Teams Flexo Press Operator Relationship Specialty Start Date End Date Bhargav Wilkes MD [address] [place] [address] PCP - General Family Medicine 04/15/22 [place] [address] [place] [address] Referring Physician Physical Medicine and Rehabilitation 12/30/22 documented as of this encounter
--- OUTSIDE RECORDS SUMMARY | 2024-04-13 08:33 | XMS_ITS | Encounter Summary ---
Author Organization [facility] Healthcare Address [address] [place] [address] Care Team Providers Care Occupational Therapist Assistants Name Role Phone Bhargav Wilkes MD Primary Care Provider Be Rangel DO Unavailable [phone] Reason for Visit * Reason Onset Date Comments Symptom Based Call 08/26/2023 Encounter Details Date Type Department Care Team (Late st Contact Info) Description 08/26/2023 Telephone [facility] Primary Care at [address] [address] Bhargav Wilkes MD [address] [place] [address] [address] [place] [address] Symptom Based Call Social History [...] on file 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 Gender Identity Not on file Sexual Orientation Not on file documented as of this encounter Ordered Prescriptions Prescription Sig Dispense Quantity Refills Last Filled Start Date End Date ondansetron (Zofran) 4 mg tablet Take 1 tablet (4 mg total) by mouth every 8 (eight) hours as needed for nausea or vomiting 20 tablet 08/27/2023 4 documented in this encounter Miscellaneous Notes * Telephone Encounter - Brynn Bagley MA - 08/27/2023 12:44 PM CDT Called and spoke to pt, informed pt of Dr Wilkes's recommendations, pt voiced understanding * Telephone Encounter - Yulia Best - 08/26/2023 3:03 PM CDT Symptom Based Call Chief Complaint(s): Nausea, pressure in the sinuses, cough. Still producing phlegm, but it is no longer brown Duration: What type of symptom(s) is the patient experiencing? Non-Emergent. Is this a new or reoccurring symptom(s)? Reoccurring What have you tried to help your symptom(s)? Prescribed Antibiotic and cough syrup Why was appointment not scheduled? Patient refusing appointment regardless of availability. Additional Comments: Pt stated she finished her antibiotic on Wednesday morning, still with nausea,. She also stated she still has lot of sinus drainage. She will be out of the cough syrup after 2 more dosages and has completed the antibiotic Please call and advise Does message need to be routed? Yes-Action Needed documented in this encounter Plan of Treatment Not on file documented as of this encounter Visit Diagnoses Not on filedocumented in this encounter Care Teams Occupational Therapist Assistants Relationship Specialty Start Date End Date Bhargav Wilkes MD [address] [place] [address] PCP - General Family Medicine 04/15/22 [place] [address] [place] [address] Referring Physician Physical Medicine and Rehabilitation 12/30/22 documented as of this encounter
--- OUTSIDE RECORDS SUMMARY | 2024-04-13 08:33 | XMS_ITS | Encounter Summary ---
Author Organization [facility] makeena of [facility] Address [address] [place] [address] Phone Care Team Providers Care Home Extension Agent Name Role Phone Bhargav Wilkes MD Primary Care Provider [phone] Be Rangel DO Unavailable [phone] Reason for Referral * MRI/CAT/PET Scan (Routine) - Authorized Specialty Diagnoses / Procedures Referred By Contac t Referred To Contact Radiology Diagnoses Cervical spondylosis with radiculopathy H/O spinal fusion Procedures CT Thoracic Spine WO Contrast Jarad Couch Jr., MD [address] [facility] [place] [address] Phone: tel: fax: External Order Referral ID Status Reason Start Date Expiration Date V isits Requested Visits Authorized [id number] Authorized 03/16/2024 04/15/2025 1 1 UCT MANUFACTURING PROFESSIONAL * MRI/CAT/PET Scan (Routine) - Authorized Specialty Diagnoses / Procedures Referred By Contac t Referred To Contact Radiology Diagnoses Cervical spondylosis with radiculopathy H/O spinal fusion Procedures CT Lumbar Spine WO Contrast Jarad Couch Jr., MD [address] 6[address]/6B[address]12[address] [place] [address] Phone: tel: fax: External Order Referral ID Status Reason Start Date Expiration Date V isits Requested Visits Authorized [id number] Authorized 03/16/2024 04/15/2025 1 1 UCT MANUFACTURING PROFESSIONAL * MRI/CAT/PET Scan (Routine) - Authorized Specialty Diagnoses / Procedures Referred By Contac t Referred To Contact Radiology Diagnoses Cervical spondylosis with radiculopathy H/O spinal fusion Procedures CT Cervical Spine WO Contrast Jarad Couch Jr., MD [address] [facility] 6A/6B/[address] [place] [address] Phone: tel: fax: External Order Referral ID Status Reason Start Date Expiration Date V isits Requested Visits Authorized [id number] Authorized 03/16/2024 04/15/2025 1 1 UCT MANUFACTURING PROFESSIONAL * MRI/CAT/PET Scan (Routine) - Closed Specialty Diagnoses / Procedures Referred By Contac t Referred To Contact Radiology Diagnoses Cervical spondylosis with radiculopathy H/O spinal fusion Procedures MRI Lumbar Spine WO Contrast Jarad Couch Jr., MD [address] [facility] 6A//[address] [place] [address] Phone: tel: fax: External Order Referral ID Status Reason Start Date Expiration Date Visits Re quested Visits Authorized [id number] Closed 03/16/2024 04/15/2025 1 1 UCT MANUFACTURING PROFESSIONAL * MRI/CAT/PET Scan (Routine) - Closed Specialty Diagnoses / Procedures Referred By Contac t Referred To Contact Radiology Diagnoses Cervical spondylosis with radiculopathy H/O spinal fusion Procedures MRI Thoracic Spine WO Contrast Jarad Couch Jr., MD [address] [facility] 6A/6B/[address] [place] [address] Phone: tel: fax: External Order Referral ID Status Reason Start Date Expiration Date Visits Re quested Visits Authorized [id number] Closed 03/16/2024 04/15/2025 1 1 UCT MANUFACTURING PROFESSIONAL * MRI/CAT/PET Scan (Routine) - Closed Specialty Diagnoses / Procedures Referred By Contac t Referred To Contact Radiology Diagnoses Cervical spondylosis with radiculopathy H/O spinal fusion Procedures MRI Cervical Spine WO Contrast Jarad Couch Jr., MD [address] [facility] 6A6B/12[place], [place] [address] Phone: tel: fax: External Order Referral ID Status Reason Start Date Expiration Date Visits Re quested Visits Authorized [id number] Closed 03/16/2024 04/15/2025 1 1 UCT MANUFACTURING PROFESSIONAL * Diagnostic Imaging (Routine) - Closed Specialty Diagnoses / Procedures Referred By Contac t Referred To Contact Diagnoses Cervical spondylosis with radiculopathy Procedures XR Scoliosis 6 or More Views Jarad Couch Jr., MD [address] [facility] 6A/6B/[address] [place] [address] Phone: tel: fax: [facility] [address] [place] [address] [address] [place] [address] Phone: tel: Referral ID Status Reason Start Date Expiration Date Visits Re quested Visits Authorized [id number] Closed 03/01/2024 03/31/2025 1 1 UCT MANUFACTURING PROFESSIONAL Reason for Visit * Reason Comments Pain Second opinion- s/p cervical/thoracic surgery in 2020; new weakness and pain Encounter Details Date Type Department Care Team (Late st Contact Info) Description 03/16/2024 2:00 PM PRODUCT MANUFACTURING PROFESSIONAL Office Visit [facility] Orthopaedic Surgery [address] [place] [address] Medical Office Building [address] [place] [address] Jarad Couch Jr., [address] [facility] [address] [place] [address] Cervical spondylosis with radiculopathy (Primary Dx); H/O spinal fusion Social History Tobacco Use Types Packs/Day Years [...] on file Legal Sex Female 1:00 AM PRODUCT MANUFACTURING PROFESSIONAL Gender Identity Not on file Sexual Orientation Not on file documented as of this encounter Patient Instructions * Patient Instructions* Rissa Liz MS - 03/16/2024 2:00 PM PRODUCT MANUFACTURING PROFESSIONAL Thank you for your visit today. Dr. Couch has recommended the following treatment: Continue physical therapy. MRI of the entire spine. CT scan of the entire spine. We will schedule the MRI and CT and contact you with the details and to schedule a follow up with Dr. Couch after imaging is complete. Please let us know if you have any questions. Rissa Liz MA, ATC Body Builder Apprentice to Dr. Jarad Couch Jr. Department of Orthopedic Spine Surgery Ermelinda Enciso RN, BSN Clinical Nurse Coordinator to Dr. Jarad Couch Jr. Department of Orthopedic Spine Surgery UCT MANUFACTURING PROFESSIONAL UCT MANUFACTURING PROFESSIONAL documented in this encounter Progress Notes * Jarad Couch Jr., MD - 03/16/2024 2:00 PM CST Images from the original note were not included. New Patient Visit Chief Complaint Increased spasticity History of Present Illness Hailee Tanner is a 68 y.o. female who presents to our office today for evaluation of increased spasticity. She has a history of a C4-C6 ACDF and T2-T3 laminectomy in 2020. This was complicated by incomplete spinal cord injury with profound lower extremity weakness, left greater than right, immediately postoperatively. Imaging was obtained immediately postoperatively which was negative for cordcompression and this was attributed to reperfusion injury. She has recovered strength in her lower extremities such that she is now able to ambulate with a walker or a cane. Her chief complaint todayis increased spasticity in bilateral upper extremities and in bilateral lower extremities. She endorses some pain associated with the bilateral lowers particularly at night radiating from her feet into her knee. On the right, she also has occasional radiation proximally round her posterior buttock into her lower back. She endorses some periodic paresthesias in the radial 3 digits in bilateral hand s. It is not constant in nature. She does endorse some numbness in the right lower extremity as well. She denies any weakness or really any progressively worsened balance. Matter of fact, she feels that her balance is actually improving with therapy, which he attends 3 times weekly. She does have improving urinary incontinence. Denies any nausea, vomiting, fevers, chills. She has not had any epidural steroid injections since her surgery. She takes baclofen, Lyrica and amitriptyline for her pain. 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 She lives at home alone. Her chief complaints today are right anterior thigh pain and pain affecting the mid to upper thoracic spine which radiate down the right thoracic and lumbar paraspinals. Past Medical History She has a past medical history of Acute bronchitis (10/2017), Anxiety, Arthritis, GERD (gastroesophageal reflux disease), Hiatal hernia, Hoarseness of voice, Hypertension, Myocardial infarction (HCC)(2007), and PONV (postoperative nausea and vomiting). Past Surgical History She has a past surgical history that includes Hysterectomy (1987); section; Knee arthroscopy; Back surgery (03/2021); Neck surgery; and Spine surgery (03/13/2021). Medications She has a current medication list which includes the following prescription(s): amitriptyline, ascorbic acid, baclofen, calcium carbonate-vitamin d3, cholecalciferol, cranberry fruit, cyanocobalamin,docosahexaenoic acid/epa, folic acid, furosemide, pantoprazole dr, phentermine, polyethylene glycol, pregabalin, aspirin, magnesium oxide, and NOT IN DATABASE, PRESCRIPTION,. Drug Allergies She is allergic to codeine and oxycodone. Social History She reports that she quit smoking about 36 years ago. Her smoking use included cigarettes. She started smoking about 43 years ago. She has a 3.9 pack-year smoking history. She has never used smokeless tobacco. She reports that she does not use drugs. Family History Her family history includes Arthritis in her mother; COPD in her father and mother; Cancer in her father and mother; Diabetes in her daughter, mother, and sister; Hypertension in her brother, father,mother, and sister; Irritable bowel syndrome in her mother; Kidney disease in her father. Physical Examination There were no vitals taken for this visit. There is no height or weight on file to calculate BMI. Hailee is pleasant, well-developed, well nourished and in no acute distress. Cervical spine range of motion is 20?? extension, 40?? flexion, 60?? rotation bilaterally. Lumbar spine range of motion isnot tested. Patient is able to ambulate with difficulty. Tandem gait: Not tested. Penny: Negativebilaterally. Inverted radial reflex: Negative bilaterally. Spurling: Not tested. Upper extremity reflexes: Symmetric, 2+ throughout. Lower extremity reflexes: 3+ patellar tendon reflexes, 2+ Achillestendon reflexes, symmetric. Clonus: 2 beats on the right, 0 beats on the left. Babinski: Upgoing bilaterally. She has a well-healed right anterior cervical incision and a well-healed midline posterior upper thoracic incision. Sensation: C5-T1: SILT and equal in all dermatomes L2-S1: Diminished to light touch globally throughout the right lower extremity; SILT throughout left lower extremity Motor: Muscle Strength Left Right Deltoid (C5) 5/5 5/5 Biceps (C5, C6) 5/5 5/5 Triceps (C7) 5/5 5/5 Wrist extensors (C6) 5/5 5/5 Wrist flexors (C7) 5/5 5/5 Finger extensors (C7) 5/5 5/5 Finger flexors (C8) 5/5 5/5 Interossei of hand (T1) 5/5 5/5 Iliopsoas (L1, L2) 3/5 5/5 Quadriceps (L3) 5/5 5/5 Tibialis anterior (L4, L5) 5/5 5/5 Extensor hallicus longus (L5) 5/5 5/5 Gastrocsoleus complex (S1) 5/5 5/5 BLE: Warm and well-perfused distally. PROMIS Scores 10/15/2017 12/30/2017 01/28/2018 03/08/2018 03/16/2024 PROMIS Pain Interference 62.9 74.8 61.5 38.7 62.1 Physical Function V2.0 36.6 31.9 39.3 46.8 32.7 Anxiety V1.0 59.8 58.3 58 42.9 61.6 Depression 56.1 61 34.2 34.2 55 Review of Plain Radiographs/Studies My independent interpretation of the patient's imaging studies is as follows: Plain films of the cervical spine AP, lateral, and flexion/extension from today were reviewed by me. They show evidence of prior C4-C6 ACDF. There is disc space narrowing at C6-C7. No abnormal motionwith flexion/extension. Full spine eos x-rays from today were reviewed by me. The spine is globally well balanced in the coronal plane. In the sagittal plane, there is upper thoracic hyperkyphosis. PI 73, pelvic tilt elevated at 28, sagittal vertical axis 81. Cervical spine MRI from 04/30/2023 (nearly 1-year-old) was reviewed by me today. At C2-C3, there isright neural foraminal stenosis. At C3-C4, there is no high- grade stenosis. At C4-C5, there is evidence of ACDF without high-grade stenosis. At C5-C6, there is evidence of ACDF with a left paracentral disc osteophyte complex abutting the spinal cord and causing left neural foraminal stenosis. At C6-C7, there does not appear to be high-grade stenosis. At C7-T1, there is no high-grade stenosis. There is a hemangioma in the T1 vertebral body. There is a large disc osteophyte complex at T2-T3 projecting posteriorly and abutting the spinal cord. There is myelomalacia at this level. There is evidence of prior T2- T3 laminectomy. There is CSF dorsal to the spinal cord at this level and the cord appears well decompressed. Cervical, thoracic, and lumbar spine MRI from 06/10/2022 was reviewed by me today. The axial cuts are of limited quality. It shows changes consistent with C4-C6 ACDF and the above-mentioned T2-T3 disc osteophyte complex abutting the spinal cord with evidence of posterior decompression at this level. There is no high-grade canal stenosis or neural element compression throughout the remainder of the spine. Impression/Diagnosis The patient is a 68 y.o. female with right anterior thigh pain and back pain localizing to the midthoracic and upper lumbar spine, as well as sensations of bilateral upper and bilateral lower extremity spasms. This is in the setting of prior C4-C6 ACDF and T2-T3 laminectomy complicated by incomplete spinal cord injury from which she has mostly recovered to the point that she is now able to ambulate with a walker or cane at all times. Treatment Plan I discussed with the patient my impression, the imaging findings, and treatment plan in detail witha focus on the etiology, natural history, and management of her symptoms. She has been doing physical therapy and spinal cord injury rehab which have been quite helpful for her. I encouraged her to continue with these. It is possible that her symptoms are sequelae from her incomplete spinal cord injury and not related to ongoing neural element compression. If this is the case, I am not confident that additional surgery would offer her much if any improvement in her symptoms. I am going to obtain an MRI of the cervical, thoracic, and lumbar spine to evaluate for new neural element compression which may be contributing to her symptoms. We will be in contact with her after the MRI is performedto discuss next steps. All of the patient's questions were answered. They understand, agree, and are happy with this plan. Jarad Couch Jr., MD Horticultural Manager Department of Orthopaedic Surgery Division of Spine Surgery [facility] [employer] [place], [place] Guard Rail Installer done by [employer]; therefore, variances and inaccuracies may occur. I reviewed the patient problem list pertinent to the visit today, but the entire patient problem list was not reviewed today. Total time spent on this patient visit today was 60 minutes dedicated to chart review, independent imaging review, patient evaluation, examination, counseling and education, and coordination of care. UCT MANUFACTURING PROFESSIONAL documented in this encounter Plan of Treatment Not on file documented as of this encounter Results * MRI Lumbar Spine WO Contrast (04/07/2024 2:48 PM PRODUCT MANUFACTURING PROFESSIONAL) Anatomical Region Laterality Modality Spine N/A Magnetic Resonan ce 04/07/2024 3:04 PM PRODUCT MANUFACTURING PROFESSIONAL Narrative 04/07/2024 3:10 PM PRODUCT MANUFACTURING PROFESSIONAL EXAM DESCRIPTION: ?? MRI LUMBAR SPINE WO [...] thecal sac. ??Left lateral recess effacement. ?? Hecm-xu-mkqljjny left and no significant right neural foraminal narrowing. L2-L3: Retrolisthesis of L2 on L3 with unroofing of the disc and marginal spur formation eccentric to the left neural foramen. ??Thickened ligamentum flavum with bilateral facet arthropathy. ??Proliferation of dorsal epidural fat. ?? Moderate spinal canal stenosis. ??Lateral recess effacement on both sides. ?? Thtd-pu-pgiphvci right and mild inferior left neural foraminal narrowing. L3-L4: Retrolisthesis of L3 on L4 with unroofing of the disc and marginal spur formation. ??Thickened ligamentum flavum and facet arthropathy. ??Flattening of the ventral thecal sac. ??Ikvm-ec-nonuokmh neural foraminal narrowing with disc/marginal spur and facet arthropathy approaching the exiting L3 nerve roots. L4-L5: Disc bulge with thickened flavum and bilateral facet arthropathy. ?? Proliferation of dorsal epidural fat. ??Moderate spinal canal stenosis. ?? Lateral recess effacement on both sides. ??Encd-ot-cbpoyedg left and mild right neural foraminal narrowing. [...] 3:10 PM - Electronically signed by ??Sean Simmons.O. AP: AP D: ??04/07/2024 3:10 PM T: ??04/07/2024 3:10 PM Report ID: [id number] Reading Location: ??[id number] Procedure Note Sean Bass, DO - 04/07/2024 [...] ventral thecal sac. Left lateral recess effacement. Kssu-vl-zskwwets left and no significant right neural foraminalnarrowing. L2-L3: Retrolisthesis of L2 on L3 with unroofing of the disc and marginalspur formation eccentric to the left neural foramen. Thickened ligamentumflavum with bilateral facet arthropathy. Proliferation of dorsal epidural fat. Moderate spinal canal stenosis. Lateral recess effacement on both sides. Xoxz-et-bswhrmne right and mild inferior left neural foraminalnarrowing. L3-L4: Retrolisthesis of L3 on L4 with unroofing of the disc and marginalspur formation. Thickened ligamentum flavum and facet arthropathy. Flatteningof the ventral thecal sac. Yxjf-li-fedvuzuj neural foraminal narrowing with disc/marginal spur and facet arthropathy approaching the exiting L3 nerve roots. L4-L5: Disc bulge with thickened flavum and bilateral facet arthropathy. Proliferation of dorsal epidural fat. Moderate spinal canal stenosis. Lateral recess effacement on both sides. Tiqd-xy-tmtsoroo left and mildright neural foraminal narrowing. L5-S1: [...] Sean Bass D.O. AP: AP Report ID: [id number] Reading Location: [place] [address] Jarad Couch Jr., MD [facility] [place] MRI PROCEDURES Final Result * MRI Thoracic Spine WO Contrast (04/07/2024 2:34 PM PRODUCT MANUFACTURING PROFESSIONAL) Anatomical Region Laterality Modality Spine N/A Magnetic Resonan ce 04/07/2024 2:51 PM PRODUCT MANUFACTURING PROFESSIONAL Narrative 04/07/2024 3:04 PM PRODUCT MANUFACTURING PROFESSIONAL EXAM DESCRIPTION: ?? MRI THORACIC SPINE WO [...] arthropathy. ??No significant spinal canal stenosis. ?? Jyepm-ljiwjwg-dilj-left neural foraminal narrowing. T4-T5: Minor disc bulge [...] ?? Thickened ligamentum flavum and facet arthropathy. ??Foaz-hj-qngsuqjk left ventral spinal canal stenosis. ??Ngcmf-pvikdtm-ebrp-left neural foraminal narrowing. T7-T8: Disc bulge with marginal spur formation superimposed disc protrusion eccentric to the left compresses the left ventral cord. ??Thickened ligamentum flavum and facet arthropathy. ??Moderate to severe spinal canal stenosis of the left of midline. ??Hqmar-vwehyyr-foha-left neural foraminal narrowing. T8-T9: Minor disc bulge [...] arthropathy. ??No significant spinal canal stenosis. ?? Sevc-pv-ywdjsasv neural foraminal narrowing. T11-T12: No significant disc [...] PM T: ??04/07/2024 3:04 PM Report ID: [id number] Reading Location: ??[id number] Procedure Note Sean Bass, DO - 04/07/2024 [...] facet arthropathy. No significant spinal canal stenosis. Ywatz-pmijdlv-npbr-left neural foraminal narrowing. T4-T5: Minor disc bulge [...] left. Thickened ligamentum flavum and facet arthropathy. Huij-wc-ozmhckgf left ventral spinal canal stenosis. Tmbnb-qhuunar-irtn-left neural foraminal narrowing. T7-T8: Disc bulge with marginal spur formation superimposed discprotrusion eccentric to the left compresses the left ventral cord. Thickenedligamentum flavum and facet arthropathy. Moderate to severe spinal canal stenosis ofthe left of midline. Znlcq-gnpjhup-quny-left neural foraminal narrowing. T8-T9: Minor disc bulge [...] facet arthropathy. No significant spinal canal stenosis. Fakk-wo-yhlgzvsr neural foraminal narrowing. T11-T12: No significant disc [...] Sean Bass D.O. AP: AP Report ID: [id number] Reading Location: [place] [address] Jarad Couch Jr., MD IMG MRI PROCEDURES Final Result * MRI Cervical Spine WO Contrast (04/07/2024 2:22 PM PRODUCT MANUFACTURING PROFESSIONAL) Anatomical Region Laterality Modality Spine N/A Magnetic Resonan ce 04/07/2024 2:29 PM PRODUCT MANUFACTURING PROFESSIONAL Narrative 04/07/2024 3:10 PM PRODUCT MANUFACTURING PROFESSIONAL EXAM DESCRIPTION: ?? MRI CERVICAL SPINE WO [...] disc bulge or spinal canal stenosis. ?? Mmobn-liiikdr-wrwj-left uncovertebral spurring and facet arthropathy with yusm-at-crpogarp right and no significant left neural foraminal narrowing. C3-C4: Retrolisthesis of C3 on C4 with unroofing of the disc. ??Superimposed posterior disc osteophyte complex. ??Thickened ligamentum flavum. ??Moderate spinal canal stenosis. ??Uncovertebral spurring and facet arthropathy with moderate left and piwe-tz-zjvxxyvx right neural foraminal narrowing. C4-C5: Surgical level. ??Intermediate signal in the ventral spinal canal could be osteophytic ridging or other postoperative change. ??Continued spinal canal narrowing to the right of midline. ??Neural foramen are suboptimally visualized due to metal related artifact, question driq-pstqxhx-fzpa-right neural foraminal narrowing. C5-C6: Surgical level. ??Intermediate signal in the ventral spinal canal to the left of midline abutting the ventral cord as seen previously and could be osteophytic ridging or other postoperative change. ??Continued spinal canal and naya-vayczmd-arvh-right neural foraminal narrowing. C6-C7: Posterior disc osteophyte [...] PM T: ??04/07/2024 3:10 PM Report ID: [id number] Reading Location: ??[id number] Procedure Note Sean Bass, DO - 04/07/2024 [...] significant disc bulge or spinal canal stenosis. Ddvky-eykvzpy-rkou-left uncovertebral spurring and facet arthropathy with wauo-mp-pjsyfcji right and no significant left neural foraminal narrowing. C3-C4: Retrolisthesis of C3 on C4 with unroofing of the disc.Superimposed posterior disc osteophyte complex. Thickened ligamentum flavum. Moderate spinal canal stenosis. Uncovertebral spurring and facet arthropathy with moderate left and hecb-jz-snuhuwnw right neural foraminal narrowing. C4-C5: Surgical level. Intermediate signal in the ventral spinal canalcould be osteophytic ridging or other postoperative change. Continued spinalcanal narrowing to the right of midline. Neural foramen are suboptimallyvisualized due to metal related artifact, question ahds-fjinwjs-cqpb-right neural foraminal narrowing. C5-C6: Surgical level. Intermediate signal in the ventral spinal canal tothe left of midline abutting the ventral cord as seen previously and could be osteophytic ridging or other postoperative change. Continued spinal [place] kvgm-blenqfr-snus-right neural foraminal narrowing. C6-C7: Posterior disc osteophyte [...] patient's nurse Ms. Sanchez Via telephone by co Dr. Virgil Bass on 04/07/2024 at 3:03 pm centralstandard time. THIS IS AN ELECTRONICALLY VERIFIED FINAL REPORT 04/07/2024 3:10 PM - Electronically signed by Sean Bass D.O. AP: AP Report ID: [id number] Reading Location: [place] [address] Jarad Couch Jr., MD IM MRI PROCEDURES Final Result * CT Thoracic Spine WO Contrast (04/06/2024) Anatomical Region Laterality Modality Spine N/A Computed Tomogra phy MD MENG Ngo Jr. CT PROCEDURES F inal Result * CT Lumbar Spine WO Contrast (04/06/2024) Anatomical Region Laterality Modality Spine N/A Computed Tomogra phy MD MENG Ngo Jr. CT PROCEDURES F inal Result * CT Cervical Spine WO Contrast (04/06/2024) Anatomical Region Laterality Modality Spine N/A Computed Tomogra phy us Jarad Couch Jr., MD IMG CT PROCEDURES F inal Result * XR Scoliosis 6 or More Views (03/16/2024 1:29 PM PRODUCT MANUFACTURING PROFESSIONAL) Anatomical Region Laterality Modality Spine N/A Computed Radiogr aphy 03/16/2024 2:21 PM PRODUCT MANUFACTURING PROFESSIONAL Impressions 03/16/2024 3:22 PM PRODUCT MANUFACTURING PROFESSIONAL 1. ??Anterior cervical discectomy fusion of C4-C6 [...] Dileep Valdez MD Narrative 03/16/2024 3:22 PM PRODUCT MANUFACTURING PROFESSIONAL EXAMINATION: XR SCOLIOSIS ??6 OR MORE VIEWS [...] MD IMG XR PROCEDURES F inal Result documented in this encounter Visit Diagnoses Diagnosis Cervical spondylosis with radiculopathy- Primary Cervical spondylosis with myelopathy H/O spinal fusion Cervical spondylosis with radiculopathy Cervical spondylosis with myelopathy Cervical spondylosis with radiculopathy Cervical spondylosis with myelopathy H/O spinal fusion Cervical spondylosis with radiculopathy Cervical spondylosis with myelopathy H/O spinal fusion Cervical spondylosis with radiculopathy Cervical spondylosis with myelopathy H/O spinal fusion documented in this encounter Care Teams Home Extension Agent Relationship Specialty Start Date End Date Bhargav Wilkes MD [address] [place] [address] PCP - General Family Medicine 04/15/22 [place] [address] [place] [address] Referring Physician Physical Medicine and Rehabilitation 12/30/22 documented as of this encounter
--- OUTSIDE RECORDS SUMMARY | 2024-04-13 08:33 | XMS_ITS | Encounter Summary ---
Author Organization [facility] Healthcare Address [address] [place] [id number] Care Team Providers Care Blast Setter Name Role Phone Bhargav Wilkes MD Primary Care Provider Be Rangel DO Unavailable [phone] Reason for Visit * Reason Onset Date Comments Medical Question/Miscellaneous 12/28/2023 Encounter Details Date Type Department Care Team (Late st Contact Info) Description 12/28/2023 Telephone [facility] Medical Group Primary Care at [address] [address] Bhargav Wilkes MD [address] [place] [address] [address] [place] [address] Medical Question/Miscellaneous Social History Tobacco [...] on file Legal Sex Female 1:00 AM PATIENT MANAGER Gender Identity Not on file Sexual Orientation Not on file documented as of this encounter Miscellaneous Notes * Telephone Encounter - Vance Hartley - 12/28/2023 1:20 PM CDT Medical Question/Miscellaneous Caller???s Concern: Patient called from [facility]. They do not have her lab orders. She is requesting orders be faxed to [phone]. Called back line and per back line will be faxed shortly Does message need to be routed? Yes-FYI Only documented in this encounter Plan of Treatment Not on file documented as of this encounter Visit Diagnoses Not on filedocumented in this encounter Care Teams Blast Setter Relationship Specialty Start Date End Date Bhargav Wilkes MD [address] [place] [address] PCP - General Family Medicine 04/15/22 [place] [address] [place] [address] Referring Physician Physical Medicine and Rehabilitation 12/30/22 documented as of this encounter
--- OUTSIDE RECORDS SUMMARY | 2024-04-13 08:33 | XMS_ITS | Encounter Summary ---
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 AM ENGINE REPAIRER PRODUCTION Gender Identity Not on file Sexual Orientation Not on file documented as of this encounter Plan of Treatment Not on file documented as of this encounter Procedures Procedure Name Priority Date/Time Associated Diagnosis Comments THYROID FUNCTION CASCADE Routine 12/28/2023 1:37 PM CDT CBC WITH AUTO DIFFERENTIAL Routine 12/28/2023 1:37 PM CDT LIPID PANEL Routine 12/28/2023 1:37 PM CDT COMPREHENSIVE METABOLIC PANEL Routine 12/28/2023 1:37 PM CDT documented in this encounter Results * Thyroid Function Mcewen (12/28/2023 1:37 PM CDT) Pathologist [facility] TSH 1.22 0.40 - 4.50 mIU/L [facility] 12/28/2023 1:37 PM CDT 12/28/2023 1:39 PM CDT us Bhargav Wilkes MD LAB BLOOD ORDERABLES Final Result Performing Organization Address City/State/[facility] Co de Phone Number [facility] [address] [place] [address] * (ABNORMAL) CBC with auto differential (12/28/2023 1:37 PM CDT) Pathologist [facility] WBC 4.6 3.8 - 10.8 Thousand/u L [facility] RBC, POC 4.45 3.80 - 5.10 Million/uL [facility] Hgb 12.7 11.7 - 15.5 g/dL [facility] Hct 40.4 35.0 - 45.0 % [facility] MCV 90.8 80.0 - 100.0 fL [facility] MCH 28.5 27.0 - 33.0 pg [facility] MCHC 31.4(L) 32.0 - 36.0 g/dL [facility] Rdw 14.9 11.0 - 15.0 % [facility] Platelets 190 140 - 400 Thousand/u L [facility] MPV 10.8 7.5 - 12.5 fL [facility] Neutrophils, abs 2,314 1,500 - 7,800 cells/uL [facility] Lymphocytes, abs 1,858 850 - 3,900 cells/uL [facility] Monocyte abs 409 200 - 950 cells/uL [facility] Eosinophils, abs 18 15 - 500 cells/uL [facility] Basophils, abs 0 0 - 200 cells/uL [facility] Neutrophils 50.3 % [facility] Lymphocyte pct 40.4 % [facility] Monocytes 8.9 % [facility] Eosinophils 0.4 % [facility] Basophils 0.0 % [facility] 12/28/2023 1:37 PM CDT 12/28/2023 1:39 PM CDT us Bhargav Wilkes MD LAB BLOOD ORDERABLES Final Result [facility] [address] [place] [address] * (ABNORMAL) Comprehensive metabolic panel (12/28/2023 1:37 PM CDT) [facility] Glucose 86 65 - 99 mg/dL [facility] Comment: ? Fasting reference interval BUN 34(H) 7 - 25 mg/dL [facility] Creatinine 1.03 0.50 - 1.05 mg/dL [facility] eGFR 59(L) > OR = 60 mL/min/1.7 3m2 [facility] BUN/creat ratio 33(H) 6 - 22 (calc) [facility] Sodium 139 135 - 146 mmol/L [facility] Potassium, pl 4.2 3.5 - 5.3 mmol/L [facility] Chloride 105 98 - 110 mmol/L [facility] CO2 27 20 - 32 mmol/L [facility] Calcium 9.0 8.6 - 10.4 mg/dL [facility] Protein, sr 6.3 6.1 - 8.1 g/dL [facility] Albumin 3.9 3.6 - 5.1 g/dL [facility] GLOBULIN 2.4 1.9 - 3.7 g/dL (calc) [facility] Alb/glob ratio 1.6 1.0 - 2.5 (calc) [facility] Bilirubin, total 0.5 0.2 - 1.2 mg/dL [facility] Alk phos 89 37 - 153 U/L [facility] AST 20 10 - 35 U/L [facility] ALT (SGPT) 28 6 - 29 U/L [facility] 12/28/2023 1:37 PM CDT 12/28/2023 1:39 PM CDT us Bhargav Wilkes MD LAB BLOOD ORDERABLES Final Result [facility] [address] [place] [address] * (ABNORMAL) Lipid panel (12/28/2023 1:37 PM CDT) Cholesterol 176 <200 mg/dL [facility] HDL 50 > OR = 50 mg/dL [facility] Triglycerides 149 <150 mg/dL [facility] LDL 101(H) mg/dL (calc) [facility] Comment: Reference range: <100 Desirable range <100 mg/dL for primary prevention; ?? <70 mg/dL for patients with CHD or diabetic patients with > or = 2 CHD risk factors. LDL-C is now calculated using the Joey calculation, which is a validated novel method providing better accuracy than the Friedewald equation in the estimation of LDL-C. Sascha UMAÑA et al. MARY. 2013;310(19): 9004-9102 (http://education.Genomera/faq/TTQ531) Chol/HDL ratio 3.5 <5.0 (calc) [facility] Non-HDL, (LDL+VLDL) 126 <130 mg/dL (calc) [facility] Comment: For patients with diabetes plus 1 major ASCVD risk factor, treating to a non-HDL-C goal of <100 mg/dL (LDL-C of <70 mg/dL) is considered a therapeutic option. 12/28/2023 1:37 PM CDT 12/28/2023 1:39 PM CDT us Bhargav Wilkes MD LAB BLOOD ORDERABLES Final Result [facility] [address] [facility] [place] [address] documented in this encounter Visit Diagnoses Not on filedocumented in this encounter Care Teams Prn Physical Therapist Relationship Specialty Start Date End Date Bhargav Wilkes MD [address] [place] [address] PCP - General Family Medicine 04/15/22 [place] [address] [place] [address] Referring Physician Physical Medicine and Rehabilitation 12/30/22 documented as of this encounter
--- OUTSIDE RECORDS SUMMARY | 2024-04-13 08:33 | XMS_ITS | Encounter Summary ---
Author Organization [facility] Healthcare Address [address] [place] [address] Care Team Providers Care Data Control Assistant Name Role Phone Bhargav Wilkes MD Primary Care Provider Be Rangel DO Unavailable [phone] Reason for Visit * Reason Onset Date Comments Additional Services Or Orders 04/21/2023 Encounter Details Date Type Department Care Team (Late st Contact Info) Description 04/21/2023 Telephone [facility] Medical Group Primary Care at [address] [address] Bhargav Wilkes MD [address] [place] [address] [address] [place] [address] Additional Services Or Orders Social History Tobacco Use Types Packs/Day Years [...] on file Legal Sex Female 1:00 AM SLOT FLOOR 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 FLOOR SUPERVISOR * Telephone Encounter - Carol Newton - 04/21/2023 10:46 AM SLOT FLOOR SUPERVISOR Medical Question/Miscellaneous Caller???s Concern: She has to have her A1C lab redrawn since the hospital forgot to run it. She isneeding to have the order sent to [facility]. Does message need to be routed? Yes-Action Needed FLOOR SUPERVISOR documented in this encounter Plan of Treatment Not on file documented as of this encounter Procedures Procedure Name Priority Date/Time Associated Diagnosis Comments HEMOGLOBIN A1C Routine 05/07/2023 12:43 PM SLOT FLOOR SUPERVISOR Family history of diabetes mellitus documented in this encounter Results * Hemoglobin A1c (05/07/2023 12:43 PM SLOT FLOOR SUPERVISOR) Hgb A1C 5.3 <5.7 % of total [facility] Comment: For the purpose of screening for the presence of diabetes: <5.7% ? Consistent with the absence of diabetes 5.7-6.4% ?Consistent with increased risk for diabetes ?(prediabetes) > or =6.5% ??Consistent with diabetes This assay result is consistent with a decreased risk of diabetes. Currently, no consensus exists regarding use of hemoglobin A1c for diagnosis of diabetes in children. According to [place] Diabetes Association (ADA) guidelines, hemoglobin A1c <7.0% represents optimal control in non- diabetic patients. Different metrics may apply to specific patient populations. Standards of Medical Care in Diabetes(ADA). ?? HbA1c performed on Farias platform. ?? Blood 05/07/2023 12:4 3 PM SLOT FLOOR SUPERVISOR 05/07/2023 12:44 PM SLOT FLOOR SUPERVISOR Narrative [facility] - 05/07/2023 11:53 PM SLOT FLOOR SUPERVISOR FASTING:NO FASTING: NO us Bhargav Wilkes MD LAB BLOOD ORDERABLES Final Result [facility] [address] [place] [address] documented in this encounter Visit Diagnoses Diagnosis Family history of diabetes mellitus- Primary documented in this encounter Care Teams Data Control Assistant Relationship Specialty Start Date End Date Bhargav Wilkes MD [address] [place] [address] PCP - General Family Medicine 04/15/22 [place] [address] [place] [address] Referring Physician Physical Medicine and Rehabilitation 12/30/22 documented as of this encounter
--- OUTSIDE RECORDS SUMMARY | 2024-04-13 08:33 | XMS_ITS | Encounter Summary ---
Author Organization [facility] Address [address] [place] [address] Phone Care Team Providers Care Auto Haulaway Driver Name Role Phone Bhargav Wilkes MD Primary Care Provider [phone] Be Rangel DO Unavailable [phone] Encounter Details Date Type Department Care Team (Latest Contact Info) Description 02/28/2024 Orders Only [facility] Scanning, Provider Social History Tobacco Use Types Packs/Day Years [...] on file Legal Sex Female 1:00 AM RECYCLER Gender Identity Not on file Sexual Orientation Not on file documented as of this encounter Plan of Treatment Not on file documented as of this encounter Procedures Procedure Name Priority Date/Time Associated Diagnosis Comments SCAN - RADIOLOGY/IMAGING 02/28/2024 9:36 AM RECYCLER documented in this encounter Results * SCAN - RADIOLOGY/IMAGING (02/28/2024 9:36 AM RECYCLER) Anatomical Region Laterality Modality Other us Provider Scanning Final Result documented in this encounter Visit Diagnoses Not on filedocumented in this encounter Care Teams Auto Haulaway Driver Relationship Specialty Start Date End Date Bhargav Wilkes MD [address] [place] [address] PCP - General Family Medicine 04/15/22 [place] [address] [place] [address] Referring Physician Physical Medicine and Rehabilitation 12/30/22 documented as of this encounter
--- OUTSIDE RECORDS SUMMARY | 2024-04-13 08:33 | XMS_ITS | Encounter Summary ---
Author Organization [facility] Healthcare Address [address] [place] [address] Care Team Providers Care Custodial Worker Name Role Phone Bhargav Wilkes MD Primary Care Provider Be Rangel DO Unavailable [phone] Reason for Visit * Diagnostic Imaging (Routine) - Closed Specialty Diagnoses / Procedures Referred By Darlene hodgson Referred To Contact Diagnoses Right knee pain, unspecified chronicity Procedures XR Pelvis 1 or 2 Views Janelle H[place] PA [address] [place] [address] [address] [place] [address] Phone: tel: fax: Referral ID Status Reason Start Date Expiration Date Visits Re quested Visits Authorized [id number] Closed 05/27/2023 06/25/2024 1 1 Encounter Details Date Type Department Care Team (Latest Contact Info) Description 05/27/2023 7:45 AM CHANNEL WORKER - 05/27/2023 11:59 PM CHANNEL WORKER Hospital Encounter [facility] Medical Group Orthopedics and Sports Medicine [address] [facility] [address] [place] [address] Discharge Disposition: Discharge to home or [...] on file Legal Sex Female 1:00 AM CHANNEL WORKER Gender Identity Not on file Sexual Orientation [...] mg total) daily 4 miscellaneous medical supply misc 1 each daily 1 adjustable compression leg wrap that delivers the desired compression level 2 compressive undersocks that provide 15-25 mmHg of compression in the foot and ankle area to address edema and promote blood flow from the foot. Additionally works to secure and stabilize a dressing on a wound and prevents soiling of the compression wrap. 1 Jtxch-fg-Iosacltu System or BPS card that measures the compression level applied by the wrap Bilat lower extremities 2 each 01/06/[address] (PROTONIX) 40 mg EC tablet Take 1 tablet (40 mg total) by mouth manufacturing technology analyst before breakfast 04/17/2021 4 potassium &magnesium aspartate [...] Name Priority Date/Time Associated Diagnosis Comments XR PELVIS 1 OR 2 VIEWS Schedule Routine, Read Routine (OP Routine) 05/27/2023 10:34 AM CHANNEL WORKER Right knee pain, unspecified chronicity documented in this encounter Results * XR Pelvis 1 or 2 Views (05/27/2023 10:34 AM CHANNEL WORKER) Anatomical Region Laterality Modality Body, Pelvis N/A Digital Radiogra phy Narrative 05/27/2023 11:51 AM CHANNEL WORKER An AP pelvis taken today reveals 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 Janelle AGUAYO IMG XR PROCEDURES Fin al Result documented in this encounter Visit Diagnoses Not on filedocumented in this encounter Care Teams Custodial Worker Relationship Specialty Start Date End Date Bhargav Wilkes MD [address] [place] [address] PCP - General Family Medicine 04/15/22 [place] [address] [place] [address] Referring Physician Physical Medicine and Rehabilitation 12/30/22 documented as of this encounter
--- OUTSIDE RECORDS SUMMARY | 2024-04-13 08:33 | XMS_ITS | Encounter Summary ---
Author Organization [facility] Healthcare Address [address] [place] [address] Care Team Providers Care Automotive Metalsmith Name Role Phone Bhargav Wilkes MD Primary Care Provider Be Rangel DO Unavailable [phone] Reason for Visit * MRI/CAT/PET Scan (Routine) - Closed Specialty Diagnoses / Procedures Referred By Contac t Referred To Contact Procedures Neuro MR Outside Reference Jarad Couch Jr., MD [address] [facility] [address] Phone: tel: fax: Referral ID Status Reason Start Date Expiration Date Visits Re quested Visits Authorized [id number] Closed 03/01/2024 03/31/2025 1 1 Encounter Details Date Type Department Care Team (Latest Contact Info) Description 03/01/2024 6:08 PM ROLL OPERATOR - 03/01/2024 11:59 PM ROLL OPERATOR Hospital Encounter [facility] [address] [place] [id number] Discharge Disposition: Discharge to home or self [...] on file Legal Sex Female 1:00 AM ROLL OPERATOR Gender Identity Not on file Sexual Orientation Not on file documented as of this encounter Medications at Time of Discharge amitriptyline (ELAVIL) 25 mg tablet TAKE 1 TABLET(25 MG) BY MOUTH DAILY AT BEDTIME 12/21/2023 ascorbic acid (VITAMIN C) 500 mg tablet,chewable aspirin 81 mg enteric coated tablet Take 1 tablet (81 mg total) by mouth daily baclofen (LIORESAL) 10 mg tablet TAKE 2 [...] tablets (400 mcg total) by mouth daily furosemide (LASIX) 20 mg tablet Take 1 tablet (20 mg total) by mouth daily as needed pantoprazole DR (PROTONIX) 40 mg EC tablet Take 1 tablet (40 mg total) by mouth information operator before breakfast 90 tablet 1 08/30/2023 polyethylene glycol (MIRALAX) 17 gram/dose powder 09/01/2021 pregabalin (Lyrica) 75 mg capsule 2 (two) times a day magnesium oxide (MAG-OX) 250 mg (150.8 mg elemental) tabletIndication s:hypomagnesemia 1 tablet (250 mg total) daily 12/30/202 4 NOT IN DATABASE, PRESCRIPTION, Drug name: umary Route: oral Frequency 4 phentermine 15 mg capsule TAKE 1 CAPSULE(15 MG) BY MOUTH EVERY MORNING 30 capsule 02/23/2024 4 documented as of this encounter Discharge Disposition Disposition Code Departure Means Destination Discharge to home or self care documented in this encounter Plan of Treatment Not on file documented as of this encounter Procedures Procedure Name Priority Date/Time Associated Diagnosis Comments NEURO MR OUTSIDE REFERENCE Routine 03/01/2024 6:08 PM ROLL OPERATOR documented in this encounter Results * Neuro MR Outside Reference (03/01/2024 6:08 PM ROLL OPERATOR) Impressions [facility] - 03/01/2024 6:08 PM ROLL OPERATOR These images are for Reference purposes only and have not been reviewed by [facility] Radiology. ??There will be no report generated by a [facility] Radiologist. Narrative [facility] - 03/01/2024 6:08 PM ROLL OPERATOR EXAMINATION: ??Images For Reference Purposes Only Jarad Couch Jr., MD IMG MRI PROCEDURES Final Result [facility] documented in this encounter Visit Diagnoses Not on filedocumented in this encounter Care Teams Automotive Metalsmith Relationship Specialty Start Date End Date Bhargav Wilkes MD [address] [place] [address] PCP - General Family Medicine 04/15/22 [place] [address] [place] [address] Referring Physician Physical Medicine and Rehabilitation 12/30/22 documented as of this encounter
--- OUTSIDE RECORDS SUMMARY | 2024-04-13 08:33 | XMS_ITS | Encounter Summary ---
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 If over 300 lbs, patient requires heavy duty. Type of walker:Rollator 12/30/2022 3 amitriptyline (ELAVIL) 25 mg tablet Take 1 tablet (25 mg total) by mouth daily 10/09/2022 4 diazePAM (VALIUM) 5 mg tablet Take 0.5 tablets (2.5 mg total) by mouth nightly 12/24/2021 4 magnesium oxide (MAG-OX) 250 mg (150.8 mg elemental) tabletIndication s:hypomagnesemia 1 tablet (250 mg total) daily 4 miscellaneous medical supply [facility] Compression stocking with a zipper 06/19/[address] (PROTONIX) 40 mg EC tablet Take 1 tablet (40 mg total) by mouth artist suspect before breakfast 04/17/2021 4 potassium &magnesium aspartate [...] Procedure Name Priority Date/Time Associated Diagnosis Comments EGFR Routine 12/30/2022 1:42 PM CDT Primary hypertension DIFFERENTIAL AUTO Routine 12/30/2022 1:4 2 PM CDT Primary hypertension Gastroesophageal reflux disease without esophagitis CBC WITH AUTO DIFFERENTIAL Routine 12/30/2022 1:42 PM CDT Primary hypertension Gastroesophageal reflux disease without esophagitis LIPID PANEL Routine 12/30/2022 1:42 PM CDT Primary hypertension COMPREHENSIVE METABOLIC PANEL Routine 12/30/2022 1:42 PM CDT Primary hypertension documented in this encounter Results * eGFR (12/30/2022 1:42 PM CDT) eGFR 60 mL/min/1. 73 m2 [facility] Comment: Interpretive Data Reference Interval Normal ?>/= 90 mL/min/1.73m2 Mildly decreased* ? 60 - 89 mL/min/1.73m2 Mildly to moderately decreased ?45 - 59 mL/min/1.73m2 Moderately to severely decreased ??30 - 44 mL/min/1.73m2 Severely decreased ?15 - 29 mL/min/1.73m2 Kidney Failure ?< 15 ??mL/min/1.73m2 *Relative to young adult level Estimated glomerular filtration rate is determined by the 2020 CKD-EPI equation recommended by the National Kidney Foundation (A Unifying Approach to GFR Estimation: Recommendations of the NKF-ASK Task Force on Reassessing the Inclusion of Race in Diagnosing Kidney Disease, JASN 202). The CKD-EPI equation should not be used for patients with unstable renal function and has not been validated in children and those over 70. Current interpretive data was last reviewed 2021. Blood 12/30/2022 1:42 PM CDT 12/30/2022 10:13 PM CDT us Bhargav Wilkes MD LAB BLOOD ORDERABLES Final Result [facility] [id number] Department [place] [address] * Differential, auto (12/30/2022 1:42 PM CDT) Neutrophil abs 3.4 1.7 - 6.5 K/cumm [facility] Imm gran abs 0.0 0.0 - 0.1 K/cumm [facility] Lymphocyte abs 1.7 0.8 - 3.3 K/cumm [facility] Monocyte abs 0.4 0.2 - 0.8 K/cumm [facility] Eosinophil abs 0.0 0.0 - 0.5 K/cumm [facility] Basophil abs 0.0 0.0 - 0.1 K/cumm [facility] Neutrophil pct 62.4 % [facility] Comment: Interpretive Data Percent cell count reference ranges are not reported, since discordance with absolute values may lead to misinterpretation of CBC data. Current Interpretive Data was last revised on 2017. Imm gran pct 0.2 % [facility] Comment: Interpretive Data Percent cell count reference ranges are not reported, since discordance with absolute values may lead to misinterpretation of CBC data. Current Interpretive Data was last revised on 2017. Lymphocyte pct 30.5 % [facility] Comment: Interpretive Data Percent cell count reference ranges are not reported, since discordance with absolute values may lead to misinterpretation of CBC data. Current Interpretive Data was last revised on 2017. Monocyte pct 6.5 % [facility] Comment: Interpretive Data Percent cell count reference ranges are not reported, since discordance with absolute values may lead to misinterpretation of CBC data. Current Interpretive Data was last revised on 2017. Eosinophil pct 0.2 % [facility] Comment: Interpretive Data Percent cell count reference ranges are not reported, since discordance with absolute values may lead to misinterpretation of CBC data. Current Interpretive Data was last revised on 2017. Basophil pct 0.2 % [facility] Comment: Interpretive Data Percent cell count reference ranges are not reported, since discordance with absolute values may lead to misinterpretation of CBC data. Current Interpretive Data was last revised on 2017. Blood 12/30/2022 1:42 PM CDT 12/30/2022 10:07 PM CDT us Bhargav Wilkes MD LAB BLOOD ORDERABLES Final Result [facility] [address] Department [place] [address] * (ABNORMAL) Lipid panel (12/30/2022 1:42 PM CDT) Cholesterol 183 30 - 199 mg/dL [facility] Comment: Interpretive Data Ages < or = 19 years ??Acceptable: ? <170 mg/dL ??Borderline high: ??170-199 mg/dL ??High: ? >or= 200 mg/dL Ages > or = 20 years ??Desirable: ?<200 mg/dL ??Borderline high: ??200-239 mg/dL ??High: ? >or= 240 mg/dL Literature References: 1. Expert Panel on Integrated Guidelines for Cardiovascular Health and Risk Reduction in Children and Adolescents. Pediatrics 2011;128:S213 2. NCEP Expert Panel. Circulation 2004;110:227 Current Interpretive Data was last revised on 2017. Triglycerides 173(H) <=149 mg/dL [facility] Comment: Interpretive Data Ages < or = 9 years ??Acceptable: ? <75 mg/dL ??Borderline high: ??75-99 mg/dL ??High: ? >or= 100 mg/dL Ages 10 to 20 years ??Acceptable: ? <90 mg/dL ??Borderline high: ??90-129 mg/dL ??High: ? >or= 130 mg/dL Ages > or = 20 years ??Desirable: ?<150 mg/dL ??Borderline high: ??150-199 mg/dL ??High: ? 200-499 mg/dL ?Very high: ?? >or= 499 mg/dL Literature References: 1. Expert Panel on Integrated Guidelines for Cardiovascular Health and Risk Reduction in Children and Adolescents. Pediatrics 2011;128:S213 2. NCEP Expert Panel. Circulation 2004;110:227 Current Interpretive Data was last revised on 2017. HDL 47 >=40 mg/dL [facility] Comment: Interpretive Data Ages < or = 19 years ??Acceptable: ? >45 mg/dL ??Borderline low: ?? 40-45 mg/dL ??Low: ? <40 mg/dL Ages > or = 20 years ??Desirable: ?>or= 60 mg/dL ??Low: ? <40 mg/dL Literature References: 1. Expert Panel on Integrated Guidelines for Cardiovascular Health and Risk Reduction in Children and Adolescents. Pediatrics 2011;128:S213 2. NCEP Expert Panel. Circulation 2004;110:227 Current Interpretive Data was last revised on 2017. LDL, calculated 101 <=129 mg/dL [facility] Comment: Interpretive Data Ages < or = 19 years ??Acceptable: ? <110 mg/dL ??Borderline high: ??110-129 mg/dL ??High: ?>or= 130 mg/dL Ages > or = 20 years ??Optimal: ? <100 mg/dL ??Near optimal: ?100-129 mg/dL ??Borderline high: ?? 130-159 mg/dL ??High: ?>160 mg/dL Literature References: 1. Expert Panel on Integrated Guidelines for Cardiovascular Health and Risk Reduction in Children and Adolescents. Pediatrics 2011;128:S213 2. NCEP Expert Panel. Circulation 2004;110:227 Current Interpretive Data was last revised on 2017. Non-HDL Cholesterol 136 mg/dL [facility] Comment: Interpretive Data Ages < or = 19 years ??Acceptable: ?<120 mg/dL ??Borderline high: ??120-144 mg/dL ??High: ?>145 mg/dL Ages > or = 20 years ??When triglycerides are >200 mg/dL, Non-HDL cholesterol is a secondary target of ? therapy with treatment goals that are 30 mg/dL greater than the LDL cholesterol target. ? Literature References: 1. Expert Panel on Integrated Guidelines for Cardiovascular Health and Risk Reduction in Children and Adolescents. Pediatrics 2011;128:S213 2. NCEP Expert Panel. Circulation 2004;110:227 Current Interpretive Data was last revised on 2017. Chol/HDL ratio 4 [facility] Blood 12/30/2022 1:42 PM CDT 12/30/2022 10:07 PM CDT us Bhargav Wilkes MD LAB BLOOD ORDERABLES Final Result [facility] [address] Department [place] [address] * Comprehensive metabolic panel (12/30/2022 1:42 PM CDT) Sodium 142 135 - 145 mmol/L [facility] Potassium, pl 4.4 3.3 - 4.9 mmol/L [facility] Chloride 106 97 - 110 mmol/L [facility] CO2 26 22 - 32 mmol/L [facility] Anion gap 10 2 - 15 mmol/L [facility] BUN 23 6 - 25 mg/dL [facility] Creatinine 1.02 0.60 - 1.10 mg/dL [facility] Glucose 88 70 - 199 mg/dL [facility] Comment: Interpretive Data Fasting glucose >/= 126 mg/dl is diagnostic for diabetes. ?? Fasting is defined as no caloric intake for at least 8 hours. Fasting glucose between 100 mg/dl to 125 mg/dl is diagnostic of prediabetes. In a patient with classic symptoms of hyperglycemia or hyperglycemic crisis, a random glucose >/= 200 mg/dl is diagnostic for diabetes. In the absence of unequivocal hyperglycemia, results should be confirmed by repeat testing. The classification and Diagnosis of Diabetes Diabetes Care 202; 46: S19-S40. Current interpretive data was last revised 2022. Calcium 9.2 8.5 - 10.3 mg/dL [facility] Bilirubin, total 0.5 0.1 - 1.2 mg/dL [facility] Protein, pl 7.0 6.5 - 8.5 g/dL [facility] Albumin 4.1 3.5 - 5.0 g/dL [facility] Alk phos 112 40 - 130 Units/L [facility] ALT 28 7 - 45 Units/L [facility] AST 28 10 - 45 Units/L [facility] Blood 12/30/2022 1:42 PM CDT 12/30/2022 10:07 PM CDT us Bhargav Wilkes MD LAB BLOOD ORDERABLES Final Result [facility] [address] Department [place] [address] * (ABNORMAL) CBC with auto differential (12/30/2022 1:42 PM CDT) Pathologist [facility] WBC 5.4 3.8 - 9.9 K/cumm [facility] Hgb 12.7 11.9 - 15.5 g/dL [facility] Hct 41.7 35.6 - 45.5 % [facility] Plt 191 150 - 400 K/cumm [facility] MPV 10.3 9.1 - 12.3 fL [facility] RBC 4.39 3.90 - 5.20 M/cumm [facility] MCV 95.0 81.3 - 96.4 fL [facility] MCH 28.9 27.1 - 33.3 pg [facility] MCHC 30.5(L) 32.3 - 35.7 g/dL [facility] RDW CV 14.1 11.1 - 14.9 % [facility] RDW SD 49.2(H) 35.7 - 48.1 fL [facility] NRBC abs 0.00 0.00 - 0.01 K/cumm [facility] Blood 12/30/2022 1:42 PM CDT 12/30/2022 10:07 PM CDT us Bhargav Wilkes MD LAB BLOOD ORDERABLES Final [facility] [address] Department [place] [address] documented in this encounter Visit Diagnoses Diagnosis Primary hypertension Unspecified essential hypertension Gastroesophageal reflux disease without esophagitis Esophageal reflux documented in this encounter Care Teams Auto Parts Manager Relationship Specialty Start Date End Date Bhargav Wilkes MD [address] [place] [address] PCP - General Family Medicine 04/15/22 [place] [address] [place] [address] Referring Physician Physical Medicine and Rehabilitation 12/30/22 documented as of this encounter
--- OUTSIDE RECORDS SUMMARY | 2024-04-13 08:33 | XMS_ITS | Encounter Summary ---
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
--- OUTSIDE RECORDS SUMMARY | 2024-04-13 08:33 | XMS_ITS | Encounter Summary ---
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 Gender Identity Not on file Sexual Orientation Not on file documented as of this encounter Medications at Time of Discharge ascorbic acid (VITAMIN C) 500 mg tablet,chewable baclofen (LIORESAL) 10 mg tablet TAKE 2 TABLETS BY MOUTH 4 TIMES DAILY 03/10/2022 calcium carbonate-vitamin D3 1,250 mg (500 mg elemental)-400 unit chewable tablet Take 1 tablet by mouth daily cholecalciferol (VITAMIN D-3) 1,000 unit capsule Take 1 capsule (1,000 Units total) by mouth daily cranberry fruit 400 mg tablet Take 1 tablet by mouth daily cyanocobalamin (Vitamin B-12) 100 mcg tabletIndications :Prevention of Vitamin B12 Deficiency Take 1 tablet (100 mcg total) by mouth daily docosahexaenoic acid/epa (FISH OIL ORAL) Take by mouth folic acid (FOLVITE) 800 mcg tablet Take 0.5 tablets (400 mcg total) by mouth daily polyethylene glycol (MIRALAX) 17 gram/dose powder 09/01/2021 pregabalin (Lyrica) 75 mg capsule 2 (two) times a day nitrofurantoin monohydrate (Macrobid) 100 mg capsuleIndication s:Acute cystitis with hematuria Take 1 capsule (100 mg total) by mouth 2 (two) times a day for 7 days 14 capsule 11/11/2022 3 amitriptyline (ELAVIL) 25 mg tablet Take 1 tablet (25 mg total) by mouth daily 10/09/2022 4 diazePAM (VALIUM) 5 mg tablet Take 0.5 tablets (2.5 mg total) by mouth nightly 12/24/2021 4 magnesium oxide (MAG-OX) 250 mg (150.8 mg elemental) tabletIndications :hypomagnesemia 1 tablet (250 mg total) daily 4 miscellaneous medical supply misc Compression stocking with a zipper 06/19/[address] (PROTONIX) 40 mg EC tablet Take 1 tablet (40 mg total) by mouth plug cutter before breakfast 04/17/2021 4 potassium &magnesium aspartate (MAGNESIUM, POTASSIUM ASPARTATE ORAL) Take by mouth 4 traZODone (DESYREL) 50 mg tablet Take 1 tablet (50 mg total) by mouth nightly 90 tablet 3 09/02/2022 4 ZINC ORAL Take by mouth 4 documented as of this encounter Discharge Disposition Disposition Code Departure Means Destination Discharge to home or self care documented in this encounter Miscellaneous Notes * Result Encounter Note - Shanda Hillman MA - 11/11/2022 11:59 PM CDT Left message for patient to call back to discuss urine culture results. documented in this encounter Plan of Treatment Not on file documented as of this encounter Procedures Procedure Name Priority Date/Time Associated Diagnosis Comments URINE CULTURE Routine 11/11/2022 10:36 PM CDT UTI symptoms documented in this encounter Results * Urine culture Urine, clean voided (11/11/2022 10:36 PM CDT) Report Final Report: Less than 100,000 colonies/mL (clinically insignificant growth based on current clinical standards) [facility] Comment:Testing performed by : [facility], [address] [place]., [address] Organism (CLINICALLY INSIGNIFICANT GROWTH [facility] Urine, clean voided 11/11/2022 10:36 PM CDT 11/12/2022 12:38 AM CDT Narrative [facility] - 11/13/2022 8:12 AM CDT Testing performed by [facility] Microbiology Laboratory ([phone]) us Julianne Teran NP LAB MICROBIOLOGY - GENERAL ORDER MANNY Final Result [facility] [address] Department [place] [address] documented in this encounter Visit Diagnoses Diagnosis UTI symptoms documented in this encounter Care Teams Boot And Shoe Repairman Relationship Specialty Start Date End Date Bhargav Wilkes MD [address] [place] [address] PCP - General Family Medicine 04/15/22 documented as of this encounter
--- OUTSIDE RECORDS SUMMARY | 2024-04-13 08:33 | XMS_ITS | Encounter Summary ---
Author Organization [facility] Healthcare Address [address] [place] [address] Care Team Providers Care Side Laster Tack Name Role Phone Bhargav Wilkes MD Primary Care Provider Be Rangel DO Unavailable [phone] Reason for Visit * Reason Comments Follow-up 6 month f/u Encounter Details Date Type Department Care Team (Late st Contact Info) Description 01/04/2024 1:15 PM CDT Office Visit [facility] Medical Group Primary Care at [address] [address] Bhargav Wilkse MD [address] [place] [address] [address] [place] [address] Primary hypertension (Primary Dx); Gastroesophageal reflux disease without esophagitis; Class 2 obesity with alveolar hypoventilation, serious comorbidity, and body mass index (BMI) of 39.0 to 39.9 in adult (HCC); Need for hepatitis B screening test Social History Tobacco Use Types Packs/Day Years [...] on file 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 There is a slight deficiency vs last year. Continue to control sodium intake, maintain adequate hydration BP is good Start back on aspirin 81 mg daily Thanks for coming in today! My medical assistants and I are thankful you have trusted us with your care, and hope that you received EXCELLENT care today! Please do not hesitate to call if you have any questions or concerns at [phone]. You may receive a phone call, text, MYCHART message, or e-mail asking about your care today. We would love to hear your feedback on how EXCELLENT your care wastoday! Wishing you better health, always. Dr. Wilkes documented in this encounter Progress Notes * Bhargav Wilkes MD - 01/04/2024 1:15 PM CDT Images from the original note were not included. Subjective/Objective Patient ID: Hailee Tanner is a 68 y.o. female. Chief Complaint Follow-up (6 month f/u) Denies is happy her weight is coming down with the phentermine. She is more energetic as well. Denies side effects otherwise (insomnia, diaphoresis, anxiety, palpitations, loose stools). Her ankle swelling is gone as well. Hypertension This is a chronic problem. The problem is controlled. Pertinent negatives include no chest pain, headaches, neck pain, palpitations or shortness of breath. GERD She reports no chest pain, no coughing or no wheezing. This is a chronic problem. The problem occurs rarely. The problem has been gradually improving. The symptoms are aggravated by certain foods. Risk factors include caffeine use and obesity. She has tried a PPI for the symptoms. The treatment provided significant relief. Current Outpatient Medications: amitriptyline (ELAVIL) 25 mg tablet, TAKE 1 TABLET(25 MG) BY MOUTH DAILY AT BEDTIME, Disp: , Rfl: ascorbic acid (VITAMIN C) [...] mcg total) by mouth daily, Disp: ,Rfl: docosahexaenoic acid/epa (FISH OIL ORAL), Take by [...] tablet (250 mg total) daily, Disp: ,Rfl: pantoprazole DR (PROTONIX) 40 mg EC tablet, Take 1 tablet (40 mg total) by mouth public affairs officer before breakfast, Disp: 90 tablet, Rfl: 1 phentermine 15 mg capsule, TAKE 1 CAPSULE(15 MG) BY MOUTH EVERY MORNING, Disp: 30 capsule, Rfl: 0 polyethylene glycol (MIRALAX) 17 gram/dose powder, , Disp: , Rfl: pregabalin (Lyrica) 75 mg capsule, 2 (two) times a day, Disp: , Rfl: NOT IN DATABASE, PRESCRIPTION,, Drug name: umary Route: oral Frequency (Patient not taking: Reported on 01/04/2024), Disp: , Rfl: Review of Systems Constitutional: Negative. HENT: Negative. Respiratory: Negative for cough, shortness of breath and wheezing. Cardiovascular: Negative for chest pain and palpitations. Gastrointestinal: Negative. Genitourinary: Negative. Musculoskeletal: Negative for neck pain. Neurological: Negative for headaches. Psychiatric/Behavioral: Negative. BP 124/80 (BP Location: Left arm, Patient Position: Sitting) Pulse 75 Temp 36.2 ??C (97.1 ??F) (Temporal) Resp 16 Ht 160 cm (5' 3 ) Wt 99.8 kg (220 lb) SpO2 96% BMI 38.97 kg/m?? Physical Exam Constitutional: Appearance: She is obese. HENT: Head: Normocephalic and atraumatic. Cardiovascular: Rate and Rhythm: Normal rate and regular rhythm. Pulmonary: Breath sounds: No wheezing, rhonchi or rales. Musculoskeletal: Right lower leg: No edema. Left lower leg: No edema. Neurological: Mental Status: She is alert and oriented to person, place, and time. Mental status is at baseline. Psychiatric: Mood and Affect: Mood normal. Orders Only on 12/28/2023 Component Date Value Ref Range Status Cholesterol 12/28/2023 176 <200 mg/dL Final HDL 12/28/2023 50 > OR = 50 mg/dL Final Triglycerides 12/28/2023 149 <150 mg/dL Final LDL 12/28/2023 101 (H) mg/dL (calc) Final Comment: Reference range: <100 Desirable range <100 mg/dL for primary prevention; <70 mg/dL for patients with CHD or diabetic patients with > or = 2 CHD risk factors. LDL-C is now calculated using the Joey calculation, which is a validated novel method providing better accuracy than the Friedewald equation in the estimation of LDL-C. Sascha UMAÑA et al. MARY. 2013;310(19): 0442-4217 (http://Yammer.Skill-Life.BodyClocks [place]/faq/CSF449) Chol/HDL ratio 12/28/2023 3.5 <5.0 (calc) Final Non-HDL, (LDL+VLDL) 12/28/2023 126 <130 mg/dL (calc) Final Comment: For patients with diabetes plus 1 major ASCVD risk factor, treating to a non-HDL-C goal of <100 mg/dL (LDL-C of <70 mg/dL) is considered a therapeutic option. Glucose 12/28/2023 86 65 - 99 mg/dL Final Comment: Fasting reference interval BUN 12/28/2023 34 (H) 7 - 25 mg/dL Final Creatinine 12/28/2023 1.03 0.50 - 1.05 mg/dL Final eGFR 12/28/2023 59 (L) > OR = 60 mL/min/1.73m2 Final BUN/creat ratio 12/28/2023 33 (H) 6 - 22 (calc) Final Sodium 12/28/2023 139 135 - 146 mmol/L Final Potassium, pl 12/28/2023 4.2 3.5 - 5.3 mmol/L Final Chloride 12/28/2023 105 98 - 110 mmol/L Final CO2 12/28/2023 27 20 - 32 mmol/L Final Calcium 12/28/2023 9.0 8.6 - 10.4 mg/dL Final Protein, sr 12/28/2023 6.3 6.1 - 8.1 g/dL Final Albumin 12/28/2023 3.9 3.6 - 5.1 g/dL Final GLOBULIN 12/28/2023 2.4 1.9 - 3.7 g/dL (calc) Final Alb/glob ratio 12/28/2023 1.6 1.0 - 2.5 (calc) Final Bilirubin, total 12/28/2023 0.5 0.2 - 1.2 mg/dL Final Alk phos 12/28/2023 89 37 - 153 U/L Final AST 12/28/2023 20 10 - 35 U/L Final ALT (SGPT) 12/28/2023 28 6 - 29 U/L Final WBC 12/28/2023 4.6 3.8 - 10.8 Thousand/uL Final RBC, POC 12/28/2023 4.45 3.80 - 5.10 Million/uL Final Hgb 12/28/2023 12.7 11.7 - 15.5 g/dL Final Hct 12/28/2023 40.4 35.0 - 45.0 % Final MCV 12/28/2023 90.8 80.0 - 100.0 fL Final MCH 12/28/2023 28.5 27.0 - 33.0 pg Final MCHC 12/28/2023 31.4 (L) 32.0 - 36.0 g/dL Final Rdw 12/28/2023 14.9 11.0 - 15.0 % Final Platelets 12/28/2023 190 140 - 400 Thousand/uL Final MPV 12/28/2023 10.8 7.5 - 12.5 fL Final Neutrophils, abs 12/28/2023 2,314 1,500 - 7,800 cells/uL Final Lymphocytes, abs 12/28/2023 1,858 850 - 3,900 cells/uL Final Monocyte abs 12/28/2023 409 200 - 950 cells/uL Final Eosinophils, abs 12/28/2023 18 15 - 500 cells/uL Final Basophils, abs 12/28/2023 0 0 - 200 cells/uL Final Neutrophils 12/28/2023 50.3 % Final Lymphocyte pct 12/28/2023 40.4 % Final Monocytes 12/28/2023 8.9 % Final Eosinophils 12/28/2023 0.4 % Final Basophils 12/28/2023 0.0 % Final TSH 12/28/2023 1.22 0.40 - 4.50 mIU/L Final Assessment/Plan Diagnoses and all orders for this visit: Primary hypertension (Primary) Comments: controlled reanl funciton essentially stable, thoh BUN mildly elevated continuing current regimen Gastroesophageal reflux disease without esophagitis Comments: continuing pantoprazole symptoms controlled Class 2 obesity with alveolar hypoventilation, serious comorbidity, and body mass index (BMI) of 39.0 to 39.9 in adult ([facility]) Comments: improving continuing phentermine Assessment & Plan: BMI Follow-up includes: nutrition counseling, exercise counseling, and education provided. Need for hepatitis B screening test - Hepatitis B Surface Antigen Blood; Future - Hepatitis B core antibody, total Blood; Future - Hepatitis B surface antibody (immune status) Blood; Future Bhargav Wilkes MD This office note has been partially dictated using [employer] software, and as a result portions of the record may have been created with this software. Occasional wrong-word or 'bfbnm-e-zaxb' substitutions may have occurred due to the inherent limitations of voice recognition software. Read the chartcarefully and recognize, using context, where substitutions have occurred. documented in this encounter Miscellaneous Notes * Assessment & Plan Note - Bhargav Wilkes MD - 01/04/2024 1:38 PM CDT Associated Problem(s): Class 2 obesity with alveolar hypoventilation, serious comorbidity, and bodymass index (BMI) of 39.0 to 39.9 in adult (HCC) BMI Follow-up includes: nutrition counseling, exercise counseling, and education provided. documented in this encounter Plan of Treatment Scheduled Orders Name Type Priority Associated Diagnoses Orde r Schedule Hepatitis B Surface Antigen Blood Microbiology Routine Need for hepatitis B screening test Expected: 07/03/2024, Expires: 01/03/2025 Hepatitis B core antibody, total Blood Microbiology Routine Need for hepatitis B screening test Expected: 07/03/2024, Expires: 01/03/2025 Hepatitis B surface antibody (immune status) Blood Microbiology Routine Need for hepatitis B screening test Expected: 07/03/2024, Expires: 01/03/2025 documented as of this encounter Visit Diagnoses Diagnosis Primary hypertension- Primary Unspecified essential hypertension Gastroesophageal reflux disease without esophagitis Esophageal reflux Class 2 obesity with alveolar hypoventilation, serious comorbidity, and body mass index (BMI) of 39.0 to 39.9 in adult (HCC) Need for hepatitis B screening test documented in this encounter Discontinued Medications Medication Sig Discontinue Reason Start Date End Da te diazePAM (VALIUM) 5 mg tablet Take 0.5 tablets (2.5 mg total) by mouth nightly Therapy completed 12/24/2021 01/04/2024 ondansetron (Zofran) 4 mg tablet Take 1 tablet (4 mg total) by mouth every 8 (eight) hours as needed for nausea or vomiting Therapy completed 08/30/2023 01/04/2024 promethazine-DM (PROMETHAZINE-DM) 1.25-3 mg/mL syrup Take 5-10 mL by mouth 4 (four) times a day as needed for cough Therapy completed 08/14/2023 01/04/2024 documented as of this encounter Historical Medications * This list may reflect changes made after this encounter. aspirin 81 mg enteric coated tablet Take 1 tablet (81 mg total) by mouth daily amitriptyline (ELAVIL) 25 mg tablet TAKE 1 TABLET(25 MG) BY MOUTH DAILY AT BEDTIME 12/21/2023 added in this encounter Care Teams Side Laster Tack Relationship Specialty Start Date End Date Bhargav Wilkes MD [address] [place] [address] PCP - General Family Medicine 04/15/22 [place] [address] [place] [address] Referring Physician Physical Medicine and Rehabilitation 12/30/22 documented as of this encounter
--- OUTSIDE RECORDS SUMMARY | 2024-04-13 08:33 | XMS_ITS | Encounter Summary ---
Author Organization [facility] Healthcare Address [address] [place] [address] Care Team Providers Care Glass Blowing Instructor Name Role Phone Bhargav Wilkes MD Primary Care Provider [phone] Be Rangel DO Unavailable [phone] Encounter Details Date Type Department Care Team (Late st Contact Info) Description 03/30/[address] 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 Gender Identity Not on file Sexual Orientation Not on file documented as of this encounter Plan of Treatment Not on file documented as of this encounter Visit Diagnoses Diagnosis Breast cancer screening by mammogram documented in this encounter Orders Imaging Orders Without Results Count Last Order ed Date First Ordered Date SCREENING MAMMOGRAM BILATERAL W SMITH 1 03/12 documented in this encounter Care Teams Glass Blowing Instructor Relationship Specialty Start Date End Date Bhargav Wilkes MD [address] [place] [address] PCP - General Family Medicine 04/15/22 [place] [address] [place] [address] Referring Physician Physical Medicine and Rehabilitation 12/30/22 documented as of this encounter
--- OUTSIDE RECORDS SUMMARY | 2024-04-13 08:33 | XMS_ITS | Encounter Summary ---
Author Organization [facility] Medical Group Address [address] [facility] [address] [place] [address] Care Team Providers Care Print Line Inspector Name Role Phone Bhargav Wilkes MD Primary Care Provider [phone] Be Rangel DO Unavailable [phone] Reason for Visit * Reason Onset Date Comments Juxta-Lite compression stockings 01/06/2023 Encounter Details Date Type Department Care Team (Late st Contact Info) Description 01/06/2023 Telephone [facility] Medical Group Primary Care at [address] [address] Bhargav Wilkes MD [address] [place] [address] [address] [place] [address] Juxta-Lite compression stockings Social History Tobacco Use Types Packs/Day Years [...] on file 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 Additionally works to secure and stabilize a dressing on a wound and prevents soiling of the compression wrap. 1 Ndatu-wz-Tqzsxiec System or BPS card that measures the compression level applied by the wrap Bilat lower extremities 2 each 01/06/2023 4 miscellaneous medical supply misc 1 each daily ?? 1 adjustable compression leg wrap that delivers the desired compression level ?? 2 compressive undersocks that provide 15-25 mmHg of compression in the foot and ankle area to address edema and promote blood flow from the foot. Additionally works to secure and stabilize a dressing on a wound and prevents soiling of the compression wrap. ?? 1 Pdevt-na-Ubibcjte System? ? or BPS? ? card that measures the compression level applied by the wrap Bilat lower extremities 2 each 01/06/2023 3 documented in this encounter Miscellaneous Notes * Telephone Encounter - Brynn Crowell MA - 01/11/2023 11:16 AM CDT Patient has been informed * Telephone Encounter - Brynn Crowell MA - 01/08/2023 3:56 PM CDT [facility] Attempted to contact Hailee with no answer. LMOM to contact the office back at [phone] Regarding: Telephone task has been made. Please relay: Insurance will not cover the Juxta lite leggings and the only place close that I can find that willcarry them is [facility]. Please have patient advise what she would like us to do. * Telephone Encounter - Brynn Crowell MA - 01/06/2023 2:57 PM CDT Regarding the Juxta-Lite leggings: I have not found a company that will deal with the insurance. The patient will have to pay out of pocket. [facility] carries the Juxta-lites Compression socks and they will measure the patient for the correct fit. Order has been generated for the stockings. Please review and sign if agree. * Telephone Encounter - Brynn Crowell MA - 01/06/2023 2:46 PM CDT ----- Message from Bhargav Wilkes MD sent at 12/31/2022 2:08 PM CDT ----- Order form for juxtalites? documented in this encounter Plan of Treatment Not on file documented as of this encounter Visit Diagnoses Not on filedocumented in this encounter Discontinued Medications Medication Sig Discontinue Reason Start Date End Da te miscellaneous medical supply misc Compression stocking with a zipper 06/19/2022 01/06/2023 miscellaneous medical supply misc 1 each daily ?? 1 adjustable compression leg wrap that delivers the desired compression level ?? 2 compressive undersocks that provide 15-25 mmHg of compression in the foot and ankle area to address edema and promote blood flow from the foot. Additionally works to secure and stabilize a dressing on a wound and prevents soiling of the compression wrap. ?? 1 Hryhl-bd-Wotigflw System? ? or BPS? ? card that measures the compression level applied by the wrap Bilat lower extremities Reorder 01/06/2023 01/06/2023 documented as of this encounter Care Teams Print Line Inspector Relationship Specialty Start Date End Date Bhargav Wilkes MD [address] [place] [address] PCP - General Family Medicine 04/15/22 [place] [address] [place] [address] Referring Physician Physical Medicine and Rehabilitation 12/30/22 documented as of this encounter
--- OUTSIDE RECORDS SUMMARY | 2024-04-13 08:33 | XMS_ITS | Encounter Summary ---
Author Organization [facility] Healthcare Address [address] [place] [address] Care Team Providers Care Project Control Analyst Name Role Phone Bhargav Wilkes MD Primary Care Provider Be Rangel DO Unavailable [phone] Reason for Referral * Diagnostic Imaging (Routine) - Closed Specialty Diagnoses / Procedures Referred By Darlene hodgson Referred To Contact Diagnoses Cervical spondylosis with radiculopathy Procedures XR Scoliosis 6 or More Views Jarad Couch Jr., MD [address] [place] [address] Phone: tel: fax: [facility] Rad[facility] [address] [address] Phone: tel: Referral ID Status Reason Start Date Expiration Date Visits Re quested Visits Authorized [id number] Closed 03/01/2024 03/31/2025 1 1 ER PACKER Reason for Visit * Diagnostic Imaging (Routine) - Closed Specialty Diagnoses / Procedures Referred By Darlene t Referred To Contact Diagnoses Cervical spondylosis with radiculopathy Procedures XR Scoliosis 6 or More Views Jarad Couch Jr., MD [address] [address] Phone: tel: fax: [facility] [address] [facility] [address] [place] [address] Phone: tel: Referral ID Status Reason Start Date Expiration Date Visits Re quested Visits Authorized [id number] Closed 03/01/2024 03/31/2025 1 1 Encounter Details Date Type Department Care Team (Latest Contact Info) Description 03/16/2024 12:58 PM TOPPER PACKER - 03/16/2024 11:59 PM TOPPER PACKER Hospital Encounter [facility] [address] [facility] [address] [place] [address] Cervical spondylosis with radiculopathy Discharge Disposition: [...] on file 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 Route: oral Frequency 4 phentermine 15 mg capsule TAKE 1 CAPSULE(15 MG) BY MOUTH EVERY MORNING 30 capsule 02/23/2024 4 documented as of this encounter Discharge Disposition Disposition Code Departure Means Destination Discharge to home or self care documented in this encounter Plan of Treatment Not on file documented as of this encounter Procedures Procedure Name Priority Date/Time Associated Diagnosis Comments XR SCOLIOSIS 6 OR MORE VIEWS Schedule Routine, Read Routine (OP Routine) 03/16/2024 1:29 PM TOPPER PACKER Cervical spondylosis with radiculopathy documented in this encounter Results * XR Scoliosis 6 or More Views (03/16/2024 1:29 PM TOPPER PACKER) Anatomical Region Laterality Modality Spine N/A Computed Radiogr aphy 03/16/2024 2:21 PM TOPPER PACKER Impressions 03/16/2024 3:22 PM TOPPER PACKER 1. ??Anterior cervical discectomy fusion of C4-C6 [...] Dileep Valdez MD Narrative 03/16/2024 3:22 PM TOPPER PACKER EXAMINATION: XR SCOLIOSIS ??6 OR MORE VIEWS [...] encounter Visit Diagnoses Diagnosis Cervical spondylosis with radiculopathy Cervical spondylosis with myelopathy documented in this encounter Care Teams Project Control Analyst Relationship Specialty Start Date End Date Bhargav Wilkes MD [address] [place] [address] PCP - General Family Medicine 04/15/22 [place] [address] [place] [address] Referring Physician Physical Medicine and Rehabilitation 12/30/22 documented as of this encounter
--- OUTSIDE RECORDS SUMMARY | 2024-04-13 08:33 | XMS_ITS | Encounter Summary ---
Author Organization [facility] Medical Group Address [address] [address] Care Team Providers Care Pediatric Clinical Nurse Specialist Name Role Phone Bhargav Wilkes MD Primary Care Provider [phone] Reason for Visit * Reason Comments Urinary Symptom UTI Symptoms-Frequen cy (every 2 HRS), leg spasms. Patient states she feels something is off , paralyzed from the waist down and can't feel any physical symptoms. Onset a couple days ago. OTC Azo (last dose yesterday). Encounter Details Date Type Department Care Team (Late st Contact Info) Description 11/11/2022 6:00 PM CDT Office Visit [facility] [place] [address] [place] [id number] Julianne Teran, FEI [address] [place] [address] Acute cystitis with hematuria (Primary Dx); UTI symptoms Social History Tobacco Use Types Packs/Day Years Used Date Smoking Tobacco: Former Cigarettes 0.5 7.7 1 981 - 01/11/1988 Smokeless Tobacco: Never Tobacco Cessation:Counseling Given: Not Answered PHQ-2 Answer Date Recorded PHQ-2 Total Score (If total score is 3 or more points, staff should administer the PHQ-9) 0 07/01/2022 Comments Unknown Sex and Gender Information Value Date Recorded Sex Assigned at Not on file 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 Gender Identity Not on file Sexual Orientation Not on file documented as of this encounter Last Filed Vital Signs Vital Sign Reading Time Taken Comments Blood Pressure 124/90 11/11/2022 5:53 PM CDT Pulse 105 11/11/2022 5:53 PM CDT Temperature 36.9 ??C (98.5 ??F) 11/11/2022 5:53 PM CD T Respiratory Rate 19 11/11/2022 5:53 PM CDT Oxygen Saturation 95% 11/11/2022 5:53 PM CDT Inhaled Oxygen Concentration - - Weight 90.7 kg (200 lb) 11/11/2022 5:53 PM CDT p er patient Height 160 cm (5' 3 ) 11/11/2022 5:53 PM CDT per patient Body Mass Index 35.43 11/11/2022 5:53 PM CDT documented in this encounter Patient Instructions * Patient Instructions* Julianne Teran NP - 11/11/2022 6:00 PM CDT Treatment of urinary symptoms: Take your prescribed antibiotic until it is gone. Stopping your antibiotic early puts you at risk for developing an antibiotic resistant infection. Most people have symptom relief with their antibiotic within the first day (some even within a few hours of the first dose). In the meantime you may use Pyridium as needed for burning upon urination- do not use for more than3 days as this can mask the symptoms of a worsening infection. Pyridium will turn your urine orange. May take Tylenol/Motrin for pain Drink plenty of water and fluids. Cranberry products are not proven to treat or prevent urinary tract infections however there is probably not much harm in taking them if you wish to do so. Avoid citrus juices, caffeine, alcohol, and intercourse (bladder irritants) until your symptoms resolve and treatment is complete. To prevent UTI in the future: Increase your water intake. Urine should be clear or nearly clear. Attempt to empty your bladder every 2-3 hours and do not hold urine for long periods of time. Always wipe from front to back. Void before and after intercourse. Avoid tight-fitting jeans, nylon or thong underwear as they can trap moisture and help bacteria grow. Cotton underwear and loose-fitting clothes should be worn. Call you PRIMARY CARE PROVIDER should your symptoms fail to improve or worsen. Go to the ER if you experience any severe back, flank, or groin pains, fever >101 that does not respond to Motrin or Tylenol, persistent vomiting, or any other worsening symptoms documented in this encounter Ordered Prescriptions Prescription Sig Dispense Quantity Refills Last Filled Start Date End Date nitrofurantoin monohydrate (Macrobid) 100 mg capsuleIndications :Acute cystitis with hematuria Take 1 capsule (100 mg total) by mouth 2 (two) times a day for 7 days 14 capsule 11/11/2022 3 documented in this encounter Progress Notes * Julianne Teran NP - 11/11/2022 6:00 PM CDT Images from the original note were not included. Subjective/Objective Patient ID: Hailee Tanner is a 67 y.o. female. Chief Complaint Urinary Symptom (UTI Symptoms-Frequency (every 2 HRS), leg spasms. Patient states she feels something is off , paralyzed from the waist down and can't feel any physical symptoms. Onset a couple daysago. OTC Azo (last dose yesterday). ) Patient presents to convenient care for urinary frequency and leg spasms x2 days. She has a historyof spinal cord injury and decreased sensation in her legs. She states that in the past when she gets UTI she experiences leg spasms. She has been taking OTC azo for her symptoms. She denies any fevers, chills, low back pain, or abdominal pain. Review of Systems Constitutional: Negative for chills, fatigue and fever. Gastrointestinal: Negative for nausea and vomiting. Genitourinary: Positive for frequency. Negative for difficulty urinating, dysuria, flank pain, hematuria and urgency. Musculoskeletal: Leg spasm Neurological: Negative for headaches. Psychiatric/Behavioral: Negative for confusion. Physical Exam Vitals reviewed. Constitutional: Appearance: Normal appearance. She is well-developed. She is not ill-appearing. HENT: Head: Normocephalic. Mouth/Throat: Mouth: Mucous membranes are moist. Pharynx: Oropharynx is clear. Cardiovascular: Rate and Rhythm: Normal rate and regular rhythm. Pulmonary: Effort: Pulmonary effort is normal. Breath sounds: Normal breath sounds. Abdominal: General: Abdomen is flat. Bowel sounds are normal. There is no distension. Palpations: Abdomen is soft. There is no hepatomegaly or splenomegaly. Tenderness: There is no abdominal tenderness. There is no right CVA tenderness or left CVA tenderness. Musculoskeletal: General: Normal range of motion. Comments: Wheelchair-bound Skin: General: Skin is warm and dry. Neurological: Mental Status: She is alert and oriented to person, place, and time. Mental status is at baseline. Psychiatric: Mood and Affect: Mood normal. Behavior: Behavior normal. Behavior is cooperative. Thought Content: Thought content normal. Judgment: Judgment normal. Vitals: 11/11/22 1753 BP: 124/90 Pulse: 105 Resp: 19 Temp: 36.9 ??C (98.5 ??F) TempSrc: Tympanic SpO2: 95% Weight: 90.7 kg (200 lb) Height: 160 cm (5' 3 ) Assessment/Plan UA cloudy, moderate blood, small leukocytes Urine culture ordered Macrobid initiated --start antibiotic as directed. Discussed importance of compliance of antibiotics and possibility of change depending on culture results and susceptibilities --wipe front to back post-void --avoid alcohol, caffeine and citrus juices as this can cause irritation --monitor urine for foul odor, color change, hematuria, cloudiness, change in frequency or urgency --symptoms warranting ED presentation: chest tightness, SOB, inability to maintain oral intake, confusion, fever greater than 100.9 ?? for more than 4 hours w/o improvement w/ antipyretics --f/u with PCP if symptoms do not improve in 5-7 days Diagnoses and all orders for this visit: Acute cystitis with hematuria (Primary) - nitrofurantoin monohydrate (Macrobid) 100 mg capsule; Take 1 capsule (100 mg total) by mouth 2 (two) times a day for 7 days UTI symptoms - Urine culture Urine, clean voided; Future - POCT urinalysis dipstick Recent Results (from the past 4 hour(s)) POCT urinalysis dipstick Collection Time: 11/11/22 6:06 PM Result Value Ref Range Color, Urine, POC Light Yellow Clarity, ur, POC Cloudy (A) Clear Glucose, ur, POC Negative Negative MG/DL Bilirubin, ur, POC Negative Negative, Small, Moderate, Large Ketones, ur, POC Negative Negative Specific Sherman, POC 1.025 1.003 - 1.030 Blood, ur, POC Moderate (A) Negative pH, ur, POC 6.5 5.0 - 8.0 Protein, ur, POC Trace (A) Negative Urobilinogen, urine, POC 0.2 0.2 - 1.0 mg/dL Nitrite, ur, POC Negative Negative Leukocytes, ur, POC Small (A) Negative Lot Number [id number] Patient Education: Disposition Treatment plan including expectations, follow up, and return precautions discussed with patient/parent, verbalizes understanding. Medication dosage, use, and potential adverse reactions discussed with patient/parent. Advised to follow up with PCP if symptoms do not resolve as expected or sooner if condition worsens. Signs/symptoms warranting ER evaluation reviewed. Patient and/or guardian was given an opportunity to ask questions, questions answered. Julianne Teran NP documented in this encounter Plan of Treatment Not on file documented as of this encounter Procedures Procedure Name Priority Date/Time Associated Diagnosis Comments POCT URINALYSIS DIPSTICK Routine 11/11/2022 6:06 PM CDT UTI symptoms documented in this encounter Results * Urine culture Urine, clean voided (11/11/2022 10:36 PM CDT) Report Final Report: Less than 100,000 colonies/mL (clinically insignificant growth based on current clinical standards) LELA ZEPEDA Comment:Testing performed by : [facility], [address] [facility] [place] [address] Organism (CLINICALLY INSIGNIFICANT GROWTH LELA Urine, clean voided 11/11/2022 10:36 PM CDT 11/12/2022 12:38 AM CDT Narrative LELA ZEPEDA - 11/13/2022 8:12 AM CDT Testing performed by [facility] Microbiology Laboratory ([phone]) us Julianne Teran NP LAB MICROBIOLOGY - GENERAL ORDER MANNY Final Result LELA ZEPEDA [id number] [address] Department [place] [address] * (ABNORMAL) POCT urinalysis dipstick (11/11/2022 6:06 PM CDT) Color, Urine, POC Light Yellow Clarity, ur, POC Cloudy(A) Clear Glucose, ur, POC Negative Negative MG/DL Bilirubin, ur, POC Negative Negative, Small, Moderate, Large Ketones, ur, POC Negative Negative Specific Sherman, POC 1.025 1.003 - 1.030 Blood, ur, POC Moderate(A) Negative pH, ur, POC 6.5 5.0 - 8.0 Protein, ur, POC Trace(A) Negative Urobilinogen, urine, POC 0.2 0.2 - 1.0 mg/dL Nitrite, ur, POC Negative Negative Leukocytes, ur, POC Small(A) Negative Lot Number [id number] Urine 11/11/2022 6:06 PM CDT Julianne Teran NP POINT OF CARE TEST ORDERABLES Fi nal Result documented in this encounter Visit Diagnoses Diagnosis Acute cystitis with hematuria- Primary UTI symptoms UTI symptoms documented in this encounter Historical Medications * This list may reflect changes made after this encounter. docosahexaenoic acid/epa (FISH OIL ORAL) Take by mouth amitriptyline (ELAVIL) 25 mg tablet Take 1 tablet (25 mg total) by mouth daily 10/09/2022 11/09/2023 added in this encounter Care Teams Pediatric Clinical Nurse Specialist Relationship Specialty Start Date End Date Bhargav Wilkes MD [address] [place] [address] PCP - General Family Medicine 04/15/22 documented as of this encounter
--- OUTSIDE RECORDS SUMMARY | 2024-04-13 08:33 | XMS_ITS | Encounter Summary ---
Author Organization [facility] Healthcare Address [address] [place] [address] Care Team Providers Care Iron Guardrail Installer Name Role Phone Bhargav Wilkes MD Primary Care Provider [phone] Be Rangel DO Unavailable [phone] Encounter Details Date Type Department Care Team (Late st Contact Info) Description 06/01/2023 Telephone [facility] Medical [facility] Orthopedics and Sports Medicine [address] [place] [address] [address] [place] [address] Jarad Leblanc MD [address] [place] [address] [address] [place] [address] Social History Tobacco Use Types Packs/Day Years [...] on file 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 Patient states that she is going to be bringing the brae back up today. FYI... RINARY MEDICINE TEACHER * Telephone Encounter - Gay Montero - 06/01/2023 4:03 PM CST Patient is having issues with the brace sliding down her leg. Will come in tomorrow to get another brace or re-fitted @ 2pm RINARY MEDICINE TEACHER documented in this encounter Plan of Treatment Not on file documented as of this encounter Visit Diagnoses Not on filedocumented in this encounter Care Teams Iron Guardrail Installer Relationship Specialty Start Date End Date Bhargav Wilkes MD [address] [place] [address] PCP - General Family Medicine 04/15/22 [place] [address] [place] [address] Referring Physician Physical Medicine and Rehabilitation 12/30/22 documented as of this encounter
--- OUTSIDE RECORDS SUMMARY | 2024-04-13 08:33 | XMS_ITS | Encounter Summary ---
Author Organization [facility] Healthcare Address [address] [place] [address] Care Team Providers Care Last Chalker Name Role Phone Bhargav Wilkes MD Primary Care Provider [phone] Be Rangel DO Unavailable [phone] Reason for Referral * Procedure (Routine) - Authorized Specialty Diagnoses / Procedures Referred By Contac t Referred To Contact Diagnoses Primary osteoarthritis of right knee Procedures Large Joint (Hip, Knee, Shoulder) Injection: R knee Janelle Hector PA [address] [facility] [place] [address] Phone: tel: fax: [facility] Referral ID Status Reason Start Date Expiration Date V isits Requested Visits Authorized [id number] Authorized 05/27/2023 06/25/2024 1 1 PREVENTION DETECTIVE * Diagnostic Imaging (Routine) - Closed Specialty Diagnoses / Procedures Referred By Contac t Referred To Contact Diagnoses Right knee pain, unspecified chronicity Procedures XR Pelvis 1 or 2 Views Janelle Hector PA [address] [facility] [place] [address] Phone: tel: fax: Referral ID Status Reason Start Date Expiration Date Visits Re quested Visits Authorized [id number] Closed 05/27/2023 06/25/2024 1 1 PREVENTION DETECTIVE Reason for Visit * Reason Comments Pain Encounter Details Date Type Department Care Team (Late st Contact Info) Description 05/27/2023 10:30 AM LOSS PREVENTION DETECTIVE Office Visit [facility] Orthopedics and Sports Medicine [address] [facility] [address] [place] [id number] Janelle Hector PA [address] [facility] [address] [place] [address] Right knee pain, unspecified chronicity (Primary Dx); Primary osteoarthritis of right knee Social History Tobacco Use Types Packs/Day Years [...] on file Legal Sex Female 1:00 AM LOSS PREVENTION DETECTIVE Gender Identity Not on file Sexual Orientation Not on file documented as of this encounter Last Filed Vital Signs Vital Sign Reading Time Taken Comments Blood Pressure 144/91 05/27/2023 10:20 AM LOSS PREVENTION DETECTIVE Pulse 80 05/27/2023 10:20 AM LOSS PREVENTION DETECTIVE Temperature - - Respiratory Rate - - Oxygen Saturation - - Inhaled Oxygen Concentration - - Weight 102.1 kg (225 lb) 05/27/2023 10:20 AM LOSS PREVENTION DETECTIVE Height 160 cm (5' 3 ) 05/27/2023 10:20 AM LOSS PREVENTION DETECTIVE Body Mass Index 39.86 05/27/2023 10:20 AM LOSS PREVENTION DETECTIVE documented in this encounter Progress Notes * Janelle Hector PA - 05/27/2023 10:30 AM CSTAssociated Order(s): Large Joint (Hip, Knee, Shoulder) Injection: R knee Post-Procedure Diagnose(s): Primary osteoarthritis of right knee Images from the original note were not included. NEW PATIENT VISIT Subjective CHIEF COMPLAINT She had concerns including Pain of the Right Knee. HISTORY OF PRESENT ILLNESS Ms. Tanner is a pleasant 68 year old female who presents to clinic with the complaint of right knee instability. Her symptoms began approximately one month ago with no known precipitating factor, including injury. 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 She utilizes a walker for ambulatory assistance and is currently in therapy three times a week for this syndrome. She is not currently using a brace and does not feel any mechanical symptoms. She does report a history of arthroscopy 6-7 years ago on this knee for meniscus pathology. She denies any other complaints at this time. Pain Assessment Pain Assessment: 0-10 Pain Score: 0 - No pain Pain Location: Knee Pain Orientation: Right Pain Frequency: Other (Comment) (pt does not feel pain, just that it is giving out for the past 1 month) PAST MEDCIAL HISTORY She has a past medical history of Acute bronchitis (10/2017), Anxiety, Arthritis, GERD (gastroesophageal reflux disease), Hiatal hernia, Hoarseness of voice, Hypertension, Myocardial infarction (HCC)(2007), and PONV (postoperative nausea and vomiting). PAST SURGICAL HISTORY She has a past surgical history that includes Hysterectomy (1987); section; Knee arthroscopy; Back surgery (03/2021); and Neck surgery. MEDICATIONS She has a current medication list which includes the following prescription(s): amitriptyline, ascorbic acid, baclofen, calcium carbonate-vitamin d3, cholecalciferol, cranberry fruit, cyanocobalamin,diazepam, docosahexaenoic acid/epa, folic acid, magnesium oxide, miscellaneous medical supply, panto prazole dr, polyethylene glycol, potassium &magnesium aspartate, pregabalin, trazodone, and zinc. ALLERGIES She is allergic to codeine and oxycodone. SOCIAL HISTORY She reports that she quit smoking about 35 years ago. Her smoking use included cigarettes. She started smoking about 43 years ago. She has a 3.50 pack-year smoking history. She has never used smokeless tobacco. She reports that she does not use drugs. Patient reports consuming alcoholic drinks , with a daily consumption of drinks. Patient denies daily consumption of 6 or more alcoholic drinks at one occasion. FAMILY HISTORY Her family history includes COPD in her father and mother; Cancer in her father and mother; Diabetes in her daughter, mother, and sister; Hypertension in her brother, father, mother, and sister; Irritable bowel syndrome in her mother. REVIEW OF SYSTEMS Review of Systems Constitutional: Negative for appetite change and fever. HENT: Negative for drooling, facial swelling and voice change. Eyes: Negative for discharge. Respiratory: Negative for apnea and wheezing. Cardiovascular: Negative for chest pain and palpitations. Gastrointestinal: Negative for abdominal distention and abdominal pain. Endocrine: Negative for polydipsia. Genitourinary: Negative for flank pain. Musculoskeletal: Positive for arthralgias, gait problem, joint swelling and myalgias. Skin: Negative for color change and rash. Neurological: Negative for speech difficulty. Hematological: Does not bruise/bleed easily. Psychiatric/Behavioral: Negative for hallucinations. Objective PHYSICAL EXAM BP 144/91 Pulse 80 Ht 160 cm (5' 3 ) Wt 102.1 kg (225 lb) BMI 39.86 kg/m?? Right knee Inspection Erythema: absent Cellulitis: absent Swelling: mild Surgical scar/wound: absent. Skin temperature: normal Alignment: neutral Gait: antalgic Palpation Tenderness: present. The tenderness is located in the condyle, patella and tibial tubercle. Patellar tracking: normal Crepitus: positive Patella grind: negative Subluxation: negative Range of motion The patient has reduced range of motion of the right knee. The patient does not have pain with range of motion of the right knee. Extensor lag: no. Stability AP stability: stable ML stability: stable Varus stress at 0 degrees: stable Valgus stress at 0 degrees: stable Varus stress at 30 degrees: stable Valgus stress at 30 degrees: stable Pivot shift: negative Julian: negative Anterior drawer: negative Posterior drawer: negative Strength The patient has 5/5 strength thoughout right knee. Neurovascular The patient has normal vascular on the right side of their body. The patient has normal sensation on the right side of their body. Special tests Kandi: medial negative Kandi: lateral negative Patellar apprehension: negative Left knee Palpation Patellar tracking: normal Crepitus: negative Patella grind: negative Subluxation: negative Special tests Kandi: medial negative Kadni: lateral negative REVIEW OF X-RAYS/STUDIES/LABS XR Pelvis 1 or 2 Views An AP pelvis taken today reveals 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 XR Knee Right 4 or More Views Radiographs taken of the right knee today reveal moderate degenerative changes with subchondral sclerosis, osteophyte formation, and diminished medial joint space. Assessment/Plan Hailee was seen today for pain. Diagnoses and all orders for this visit: Right knee pain, unspecified chronicity - XR Pelvis 1 or 2 Views - XR Knee Right 4 or More Views Large Joint (Hip, Knee, Shoulder) Injection: R knee Performed by: Janelle Hector PA Authorized by: Janelle Hector PA Large Joint Injection/Aspiration: Consent Given by: Patient Site marked: the procedure site was marked Timeout: prior to procedure the correct patient, procedure, and site was verified Verbal consent obtained: Yes Supporting Documentation: Indications: Pain Procedure Details: Location: Knee Site: R knee Needle Size: 22 G Approach: Anterolateral Ultrasound guided: No Fluroscopic guidance: No Medications: 80 mg methylPREDNISolone acetate 80 mg/mL; 3 mL lidocaine 20 mg/mL (2 %) Patient tolerance: Patient tolerated the procedure well with no immediate complications PLAN I discussed with Ms. Tanner her condition and treatment options. She has moderate osteoarthritis of her right knee. I recommended conservative management at this time including antiinflammatories, activity modification, and intraarticular steroid injection. I gave her an intraarticular steroid injection into her right knee today which She tolerated well. Given her minimal sensation of the lower extremities, hopefully this makes a difference. If not, we will forego them in the future. I also provided her with a collateral brace for additional support. She should continue with her therapy as is. She may return to clinic in 3 months for reevaluation and possible repeat injection. She should call the office should She have any concerns or questions. DEDE Monson Cosigned by Jarad Leblanc MD at 05/28/2023 10:40 AM LOSS PREVENTION DETECTIVE PREVENTION DETECTIVE PREVENTION DETECTIVE documented in this encounter Plan of Treatment Not on file documented as of this encounter Procedures Procedure Name Priority Date/Time Associated Diagnosis Comments XR PELVIS 1 OR 2 VIEWS Schedule Routine, Read Routine (OP Routine) 05/27/2023 10:34 AM LOSS PREVENTION DETECTIVE Right knee pain, unspecified chronicity XR KNEE RIGHT 4 OR MORE VIEWS Schedule Routine, Read Routine (OP Routine) 05/27/2023 10:34 AM LOSS PREVENTION DETECTIVE Right knee pain, unspecified chronicity [place] ARTHROCENTESIS ASPIR&/INJ MAJOR JT/BURSA W/O US Routine 05/27/2023 10:30 AM LOSS PREVENTION DETECTIVE Primary osteoarthritis of right knee documented in this encounter Results * XR Pelvis 1 or 2 Views (05/27/2023 10:34 AM LOSS PREVENTION DETECTIVE) Anatomical Region Laterality Modality Body, Pelvis N/A Digital Radiogra phy Narrative 05/27/2023 11:51 AM LOSS PREVENTION DETECTIVE An AP pelvis taken today reveals 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 Janelle AGUAYO IMG XR PROCEDURES Fin al Result * XR Knee Right 4 or More Views (05/27/2023 10:34 AM LOSS PREVENTION DETECTIVE) Anatomical Region Laterality Modality Lower Extremities, Knee Right Digital Radiography Narrative 05/27/2023 11:50 AM LOSS PREVENTION DETECTIVE Radiographs taken of the right knee today reveal moderate degenerative changes with subchondral sclerosis, osteophyte formation, and diminished medial joint space. Janelle AGUAYO IMG XR PROCEDURES Fin al Result * W[place] ARTHROCENTESIS ASPIR&/INJ MAJOR JT/BURSA W/O US (05/27/2023 10:30 AM LOSS PREVENTION DETECTIVE) Narrative Jarad Leblanc MD - 05/27/2023 10:30 AM LOSS PREVENTION DETECTIVE Janelle Hector PA ? 05/27/2023 ??1:47 PM Large Joint (Hip, Knee, Shoulder) Injection: R knee Performed by: Janelle Hector PA Authorized by: Janelle Hector PA ?? Large Joint Injection/Aspiration: ??Consent Given by: ??Patient ??Site marked: the procedure site was marked ?Timeout: prior to procedure the correct patient, procedure, and site was verified ?Verbal consent obtained: Yes ?? Supporting Documentation: ??Indications: ??Pain Procedure Details: ??Location: ??Knee ??Site: ??R knee ??Needle Size: ??22 G ??Approach: ??Anterolateral ??Ultrasound guided: No ?Fluroscopic guidance: No ?Medications: ??80 mg methylPREDNISolone acetate 80 mg/mL; 3 mL lidocaine 20 mg/mL (2 %) ??Patient tolerance: ??Patient tolerated the procedure well with no immediate complications Result [facility] Janelle AGUAYO IN CLINIC/BEDSIDE ORD ERABLES Final Result documented in this encounter Visit Diagnoses Diagnosis Right knee pain, unspecified chronicity- Primary Primary osteoarthritis of right knee documented in this encounter Administered Medications Inactive Administered Medications - up to 3 most recent administrations Medication Order MAR Action Action Date Dose Rate Site lidocaine (XYLOCAINE) 20 mg/mL (2 %) injection 3 mL 3 mL, One-Time Injection, Starting on Jerilyn 05/27/23 at 1030, For 1 dose, Indications: Administration of Local AnesthesiaIndications:Administ ration of Local Anesthesia Given 05/27/2023 10:30 AM LOSS PREVENTION DETECTIVE 3 mL Right Knee methylPREDNISolone acetate (DEPO-medrol) injection 80 mg 80 mg, intra-articular, One-Time Injection, Starting on Jerilyn 05/27/23 at 1030, For 1 doseIndications:Primary osteoarthritis of right knee Given 05/27/2023 10:30 AM LOSS PREVENTION DETECTIVE 80 mg Right Knee documented in this encounter Care Teams Last Chalker Relationship Specialty Start Date End Date Bhargav Wilkes MD [address] [place] [address] PCP - General Family Medicine 04/15/22 [place] [address] [place] [address] Referring Physician Physical Medicine and Rehabilitation 12/30/22 documented as of this encounter
--- OUTSIDE RECORDS SUMMARY | 2024-04-13 08:33 | XMS_ITS | Encounter Summary ---
Author Organization [facility] Healthcare Address [address] [place] [address] Care Team Providers Care Spar Machine Operator Helper Name Role Phone Bhargav Wilkes MD Primary Care Provider [phone] Be Rangel DO Unavailable [phone] Reason for Visit * Reason Onset Date Comments vision changes 08/11/2023 Headache 08/11/2023 Encounter Details Date Type Department Care Team (Late st Contact Info) Description 08/11/2023 Nurse Triage [facility] Primary Care at [address] [address] Bhargav Wilkes MD [address] [place] [address] [address] [place] [address] Social History Tobacco Use Types [...] on file Legal Sex Female 1:00 AM PUBLIC HEALTH STAFF NURSE Gender Identity Not on file Sexual Orientation Not on file documented as of this encounter Miscellaneous Notes * Telephone Encounter - Karolyn Laureano RN - 08/11/2023 10:27 AM CDT Ms. Tanner calls in today with reports of VILLEDA over eyes, fatigue, nausea, light sensitivity x 1 week. She states VILLEDA 7/10, when moving eyes, her head hurts. She has been sleeping a lot. She denies medication changes, vomiting, fever, stiff neck, eye pain, inability to ambulate, confusion, changes tospeech, numbness/weakness, LOC. Encouraged Ms. Tanner to call back with worsening sx. wind operations manager recommends patient be seen today. Appt scheduled. Reason for Disposition Patient wants to be seen Protocols used: [id number] * Telephone Encounter - Karolyn Laureano RN - 08/11/2023 10:20 AM CDT Regarding: vision affected blurry, headache over eyes ----- Message from Adelaida Chow MA sent at 08/11/2023 10:20 AM CDT ----- Symptom Based Call Chief Complaint(s): vision affected blurry, headache over eyes Duration: x 1 week What type of symptom(s) is the patient experiencing? Red Flag. Is the patient concerned they are experiencing a medical emergency requiring an ambulance? No Additional Comments: eyes are sensitive to light, has been nauseated, headache over eyes, headache has been off and on. Sleeping a lot, very fatigued. Does message need to be routed? Yes-Action Needed documented in this encounter Plan of Treatment Not on file documented as of this encounter Visit Diagnoses Not on filedocumented in this encounter Care Teams Spar Machine Operator Helper Relationship Specialty Start Date End Date Bhargav Wilkes MD [address] [place] [address] PCP - General Family Medicine 04/15/22 [place] [address] [place] [address] Referring Physician Physical Medicine and Rehabilitation 12/30/22 documented as of this encounter
--- OUTSIDE RECORDS SUMMARY | 2024-04-13 08:33 | XMS_ITS | Encounter Summary ---
Author Organization [facility] Healthcare Address [address] [place] [address] Care Team Providers Care Substance Abuse Services Director Name Role Phone Bhargav Wilkes MD Primary Care Provider Be Rangel DO Unavailable [phone] Reason for Visit * Reason Onset Date Comments Medical Question/Miscellaneous 01/06/2024 Encounter Details Date Type Department Care Team (Late st Contact Info) Description 01/06/2024 Telephone [facility] Primary Care at [address] [address] Bhargav Wilkes MD [address] [place] [address] [address] [place] [address] Medical Question/Miscellaneous Social History Tobacco [...] on file Legal Sex Female 1:00 AM PICK OUT HAND Gender Identity Not on file Sexual Orientation Not on file documented as of this encounter Miscellaneous Notes * Telephone Encounter - Jenn Bragg - 01/06/2024 11:55 AM CDT Medical Question/Miscellaneous Caller???s Concern: Michelle @ [facility] calling requesting a copy of the patient's Bone Densityorder be faxed to them @ [phone]. Confirmed with the practice back line that it will be faxed over and informed the caller. Patient is in route to the appointment. Does message need to be routed? No documented in this encounter Plan of Treatment Not on file documented as of this encounter Visit Diagnoses Not on filedocumented in this encounter Care Teams Substance Abuse Services Director Relationship Specialty Start Date End Date Bhargav Wilkes MD [address] [place] [address] PCP - General Family Medicine 04/15/22 [place] [address] [place] [address] Referring Physician Physical Medicine and Rehabilitation 12/30/22 documented as of this encounter
--- OUTSIDE RECORDS SUMMARY | 2024-04-13 08:33 | XMS_ITS | Encounter Summary ---
Author Organization [facility] Healthcare Address [address] [place] [address] Care Team Providers Care System Development Engineer Name Role Phone Bhargav Wilkes MD Primary Care Provider Be Rangel DO Unavailable [phone] Encounter Details Date Type Department Care Team (Late st Contact Info) Description 11/03/2023 Telephone [facility] Primary Care at [address] [address] Bhargav Wilkes MD [address] [place] [address] [address] [place] [address] Social History Tobacco Use Types [...] on file Legal Sex Female 1:00 AM ONCOLOGY ADMIN Gender Identity Not on file Sexual Orientation Not on file documented as of this encounter Miscellaneous Notes * Telephone Encounter - Brynn Crowell MA - 11/10/2023 11:17 AM CDT Patient has been informed * Telephone Encounter - Brynn Crowell MA - 11/08/2023 3:10 PM CDT Medicare will not cover any weight loss medication. Patient has been informed and stated that there was discussion of a possible appetite Supressant. If so she would be interested in that. * Telephone Encounter - Nannette Mark - 11/03/2023 2:17 PM CDT Wegovy not covered, Call [phone] to initiate PA... Pt ID [id number] documented in this encounter Plan of Treatment Not on file documented as of this encounter Visit Diagnoses Not on filedocumented in this encounter Care Teams System Development Engineer Relationship Specialty Start Date End Date Bhargav Wilkes MD [address] [place] [address] PCP - General Family Medicine 04/15/22 [place] [address] [place] [address] Referring Physician Physical Medicine and Rehabilitation 12/30/22 documented as of this encounter
--- OUTSIDE RECORDS SUMMARY | 2024-04-13 08:33 | XMS_ITS | Encounter Summary ---
Author Organization [facility] Healthcare Address [address] [place] [address] Care Team Providers Care Arson Investigator Name Role Phone Bhargav Wilkes MD Primary Care Provider Be Rangel DO Unavailable [phone] Encounter Details Date Type Department Care Team (Late st Contact Info) Description 06/17/2023 Telephone [facility] Orthopedic and Sports Medicine [address] [place] [address] Jarad Leblanc MD [address] [place] [address] [address] Social History Tobacco Use Types Packs/Day [...] on file Legal Sex Female 1:00 AM LAUNDRY OPERATOR FINISHING Gender Identity Not on file Sexual Orientation Not on file documented as of this encounter Miscellaneous Notes * Telephone Encounter - Janelle Hector PA - 06/29/2023 2:51 PM CDT I called and informed patient that Dr. Leblanc plans to review her case further and that I will be in touch with her after he does so to discuss an ongoing plan. * Telephone Encounter - Denia Lara - 06/28/2023 11:05 AM CDT Patient called, stated this is her 3rd call to our office within 11 days with absolutely no callback. She is angry! She needs to be called today & explain why we are holding on returning her call. I let patient know that Dr Leblanc was out of town with his family & returned today. Please call her today at [phone] * Telephone Encounter - Carolina Brooks MA - 06/22/2023 11:29 AM CDT Thank you * Telephone Encounter - Janelle Hector PA - 06/22/2023 10:56 AM CDT I have not reached out to her as of yet as she has a rather complicated case that I will need to discuss with Dr. Leblanc. She has a history of Brown-Sequard syndrome as a result of a spine surgery. We have tried injections, therapy, and bracing to no avail. I currently have no answers at this point. If she prefers to be seen at [facility], that is perfectly fine. * Telephone Encounter - Carolina Brooks MA - 06/21/2023 3:24 PM CDT Patient calling back in stating she has not heard from last message sent. Patient is stating she has instability, giving out at all times, not wearing any brace, last two did not work. She then askedme if this is the way it is going to be with this office. I explained Dr. Leblanc's is down two PA's and Janelle is little overwhelmed, we've lost several Ortho's in the area. She stated she would go back to [facility] where she had her spinal surgery and hung up. Thank you * Telephone Encounter - Rebeka Abreu - 06/17/2023 3:18 PM CST Patient states that her rt knee has been giving out. States it gave out 3x at PT and 3-4X today. Please advise next steps. DRY OPERATOR FINISHING documented in this encounter Plan of Treatment Not on file documented as of this encounter Visit Diagnoses Not on filedocumented in this encounter Care Teams Arson Investigator Relationship Specialty Start Date End Date Bhargav Wilkes MD [address] [place] [address] PCP - General Family Medicine 04/15/22 [place] [address] [place] [address] Referring Physician Physical Medicine and Rehabilitation 12/30/22 documented as of this encounter
--- OUTSIDE RECORDS SUMMARY | 2024-04-13 08:33 | XMS_ITS | Encounter Summary ---
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 Symptoms started approximately 10 days ago, she did see Dr Wilkes on 08/11/23 and was evaluated in the ER the same day - states all blood work at that time was normal and she was discharged home. Pt states she has been taking Tylenol and [facility] brand Cold and Cough medication with no relief, she has been drinking fluids, denies CP, fever but did have chills last night. Calling for advice.Pt is alert, appropriate in conversation, does not sound to be in distress over the phone. annealing furnace operator briefly reviewed chart, scheduled a V[facility] visit for pt to be evaluated this morning at 0800, instructions given, discussed home care advice. Pt voices understanding, agrees with plan, states appreciation of annealing furnace operator assistance. Advised to call back with any further questions or concerns. Reason for Disposition [1] MILD difficulty breathing (e.g., minimal/no SOB at rest, SOB with walking, pulse <100) AND [2] still present when not coughing Protocols used: Cough - Acute [id number] * Telephone Encounter - Rut Jimenez RN - 08/14/2023 6:55 AM CDT Regarding: Sinus infection ----- Message from Eve Francisco sent at 08/14/2023 6:49 AM CDT ----- Re: stated she has nausea and headache into chest, coughing up dark brown yellow phelgm, started about 10 days ago went to er then and is worsening now, stated could be a sinus infection, ear pain documented in this encounter Plan of Treatment Not on file documented as of this encounter Visit Diagnoses Not on filedocumented in this encounter Care Teams Sole Seamer Relationship Specialty Start Date End Date Bhargav Wilkes MD [address] [place] [address] PCP - General Family Medicine 04/15/22 [place] [address] [place] [address] Referring Physician Physical Medicine and Rehabilitation 12/30/22 documented as of this encounter
--- OUTSIDE RECORDS SUMMARY | 2024-04-13 08:33 | XMS_ITS | Encounter Summary ---
Author Organization [facility] Healthcare Address [address] [place] [address] Care Team Providers Care Wealth Management Consultant Name Role Phone Bhargav Wilkes MD Primary Care Provider Be Rangel DO Unavailable [phone] Reason for Visit * Reason Onset Date Comments Med Refill 03/31/2024 Encounter Details Date Type Department Care Team (Late st Contact Info) Description 03/31/[address] 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 Gender Identity Not on file Sexual Orientation Not on file documented as of this encounter Ordered Prescriptions Prescription Sig Dispense Quantity Refills Last Filled Start Date End Date busPIRone (BUSPAR) 5 mg tabletIndications: Generalized Anxiety Disorder Take 1 tablet (5 mg total) by mouth 3 (three) times a day 90 tablet 1 03/31/2024 03/31/2025 documented in this encounter Miscellaneous Notes * Telephone Encounter - Brynn Crowell MA - 03/31/2024 4:18 PM CORDAGE SALES REPRESENTATIVE Patient has been informed AGE SALES REPRESENTATIVE * Telephone Encounter - Brynn Crowell MA - 03/31/2024 2:10 PM CORDAGE SALES REPRESENTATIVE Please advise. 2018 patient was taking venlafaxine but I cannot find anything since then. I have the patient scheduled for 04/10/24 with Claudia. Is there anyway the patient can get something to help her until the appointment? AGE SALES REPRESENTATIVE * Telephone Encounter - Maria Del Carmen Alvarado - 03/31/2024 12:19 PM CST Medication Question/Clarification Medication Name(s): Anxiety What is the question or clarification needed?Patient is requesting something for anxiety. Patient states she was on something year but want to restart it. Patient states she can go into any stores herself due to her anxiety . If needed, Pharmacy(s) medication(s) should be sent to: Pharmacy on file Additional Comments: None Does message need to be routed? Yes-Action Needed AGE SALES REPRESENTATIVE documented in this encounter Plan of Treatment Not on file documented as of this encounter Visit Diagnoses Not on filedocumented in this encounter Care Teams Wealth Management Consultant Relationship Specialty Start Date End Date Bhargav Wilkes MD [address] [place] [id number] PCP - General Family Medicine 04/15/22 [place] [address] [place] [address] Referring Physician Physical Medicine and Rehabilitation 12/30/22 documented as of this encounter
--- OUTSIDE RECORDS SUMMARY | 2024-04-13 08:33 | XMS_ITS | Encounter Summary ---
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 Gender Identity Not on file Sexual Orientation Not on file documented as of this encounter Plan of Treatment Not on file documented as of this encounter Visit Diagnoses Not on filedocumented in this encounter Discontinued Medications Medication Sig Discontinue Reason Start Date End Da te amitriptyline (ELAVIL) 25 mg tablet Take 1 tablet (25 mg total) by mouth daily 10/09/2022 11/09/2023 semaglutide (WEGOVY) 0.25 mg/0.5 mL auto-injectorIndications :Weight Loss Management for Obese Patient (BMI >= 30),cardiovascular event risk reduction in obesity Inject 0.5 mL (0.25 mg total) under the skin every 7 days Formulary change 11/01/2023 11/09/2023 documented as of this encounter Care Teams Consumer Marketing Specialist Relationship Specialty Start Date End Date Bhargav Wilkes MD [address] [place] [address] PCP - General Family Medicine 04/15/22 [place] [address] [place] [address] Referring Physician Physical Medicine and Rehabilitation 12/30/22 documented as of this encounter
--- OUTSIDE RECORDS SUMMARY | 2024-04-13 08:33 | XMS_ITS | Encounter Summary ---
Author Organization [facility] Healthcare Address [address] [place] [address] Care Team Providers Care Integrated Circuit Layout Designer Name Role Phone Bhargav Wilkes MD Primary Care Provider Be Rangel DO Unavailable [phone] Reason for Visit * Reason Comments Sinus Problem Cough Encounter Details Date Type Department Care Team (Latest Contact Info) Description 08/14/2023 8:00 AM CDT Telemedicine [facility] Medical Group Virtual Care [address] [place] [address] Lisa Mireles NP [address] [place] [address] DR MOE [address] [place] [id number] Acute non-recurrent frontal sinusitis (Primary Dx); Acute cough; Nausea without vomiting; Acute nonintractable headache, unspecified headache type; Fatigue, unspecified type Social History Tobacco Use Types Packs/Day Years [...] on file 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 documented in this encounter Ordered Prescriptions Prescription Sig Dispense Quantity Refills Last Filled Start Date End Date promethazine-DM (PROMETHAZINE-DM) 1.25-3 mg/mL syrup Take 5-10 mL by mouth 4 (four) times a day as needed for cough 240 mL 08/14/2023 01/04/2024 amoxicillin-clavul anate (AUGMENTIN) 875-125 mg per tablet Take 1 tablet by mouth 2 (two) times a day for 10 days 20 tablet 08/14/2023 08/24/2023 documented in this encounter Progress Notes * Lisa Mireles NP - 08/14/2023 8:00 AM CDT Images from the original note were not included. [facility] On-Demand Video Visit This was a telemedicine visit with Hailee Tanner alone which took place via real-time video connection with [facility]. During the visit, I was located at home and the patient was located at home in the [facility]. The patient visit started at 0800 and ended at 0806. My total encounter time on 08/14/2023 was 13 minutes which was spent in the activities documented in the note. This includes time spent prior to the visit and after the visit in direct care of the patient. This time does not include time spent in any separately reportable services.. The patient has been informed that the visit may not be secure and acknowledged the information. I have explained the option of participating in a telephone or video visit during the COVID-19 public health emergency to the patient. After being given an opportunity to ask questions about and discuss this type of visit, the patient verbally consented to proceeding with the telephone/video visit.The patient understands that this service replaces an office visit and they may be billed and/or responsible for any applicable copayments. Subjective/Objective Patient ID: Hailee Tanner is a 68 y.o. female. Chief Complaint Chief Complaint Patient presents with Sinus Problem Cough HPI Presents via video visit with c/o cough, sinus congestion, ear pain, and face pain. Reports that she developed nausea and headache ~10 days ago. Saw her PCP earlier this week who dx her with dehydration and sent her to ED for eval d/t decreased function (fatigue, increased sleeping,little energy). She reports ED eval was unremarkable: received pain medication, nausea medication, and IV fluids. Reports continued nausea, headache. Also has sinus congestion, facial pain over eyes, bilateral earpain, upper teeth pain, sore throat, cough productive of brown sputum. Sinus Problem This is a new problem. The current episode started 1 to 4 weeks ago. The problem has been graduallyworsening since onset. There has been no fever. The pain is moderate. 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 Pertinent negatives include no chills, hoarse voice or swollen glands. Past treatments include acetaminophen. The treatment provided no relief. Past Medical History: Diagnosis Date Acute bronchitis [...] x2 HYSTERECTOMY 1987 KNEE ARTHROSCOPY NECK SURGERY HOME MEDICATIONS : amitriptyline (ELAVIL) 25 mg tablet amoxicillin-clavulanate (AUGMENTIN) 875-125 mg per tablet ascorbic acid (VITAMIN C) 500 mg tablet,chewable baclofen (LIORESAL) 10 mg tablet calcium carbonate-vitamin D3 1,250 mg (500 mg elemental)-400 unit chewable tablet cholecalciferol (VITAMIN D-3) 1,000 unit capsule cranberry fruit 400 mg tablet cyanocobalamin (Vitamin B-12) 100 mcg tablet diazePAM (VALIUM) 5 mg tablet docosahexaenoic acid/epa (FISH OIL ORAL) folic acid (FOLVITE) 800 mcg tablet furosemide (LASIX) 20 mg tablet magnesium oxide (MAG-OX) 250 mg (150.8 mg elemental) tablet NOT IN DATABASE, PRESCRIPTION, pantoprazole DR (PROTONIX) 40 mg EC tablet polyethylene glycol (MIRALAX) 17 gram/dose powder pregabalin (Lyrica) 75 mg capsule promethazine-DM (PROMETHAZINE-DM) 1.25-3 mg/mL syrup tirzepatide, weight loss, (Zepbound) 2.5 mg/0.5 mL pen injector Allergies Allergen Reactions Codeine Stomach upset Oxycodone Nausea And Vomiting Review of Systems Constitutional: Positive for activity change and fatigue. Negative for appetite change, chills and fever. HENT: Positive for congestion, ear pain, postnasal drip, sinus pressure and sore throat. Negative for hoarse voice and trouble swallowing. 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 Negative for chest tightness and wheezing. Cardiovascular: Negative for chest pain. Gastrointestinal: Positive for nausea. Negative for abdominal pain, diarrhea and vomiting. Musculoskeletal: Negative for myalgias. Neurological: Positive for weakness and headaches. Negative for dizziness and light-headedness. There were no vitals taken for this visit. Physical Exam Constitutional: General: She is not in acute distress. Appearance: She is ill-appearing. She is not toxic-appearing. Pulmonary: Effort: Pulmonary effort is normal. No respiratory distress. Comments: Able to speak in full complete sentences. No audible wheezing noted. No cough noted. Neurological: Mental Status: She is alert and oriented to person, place, and time. Exam limited d/t nature of visit. Diagnoses and all orders for this visit: Acute non-recurrent frontal sinusitis (Primary) Advised to take home COVID-19 test today d/t recent ED visit as this could be two separate illnesses. Start Augmentin and Promethazine DM, rest, remain well hydrated. Follow up with PCP in 3-4 days if no improvement or sooner if worsens. Acute cough Nausea without vomiting Acute nonintractable headache, unspecified headache type Fatigue, unspecified type Other orders - amoxicillin-clavulanate (AUGMENTIN) 875-125 mg per tablet; Take 1 tablet by mouth 2 (two) times aday for 10 days - promethazine-DM (PROMETHAZINE-DM) 1.25-3 mg/mL syrup; Take 5-10 mL by mouth 4 (four) times a day as needed for cough Lisa Mireles, PINEDA, PRESSER COTTON GINNING, TITRATOR-C documented in this encounter Plan of Treatment Not on file documented as of this encounter Visit Diagnoses Diagnosis Acute non-recurrent frontal sinusitis- Primary Acute cough Nausea without vomiting Acute nonintractable headache, unspecified headache type Fatigue, unspecified type documented in this encounter Care Teams Integrated Circuit Layout Designer Relationship Specialty Start Date End Date Bhargav Wilkes MD [address] [place] [address] PCP - General Family Medicine 04/15/22 [place] [address] [place] [address] Referring Physician Physical Medicine and Rehabilitation 12/30/22 documented as of this encounter
--- OUTSIDE RECORDS SUMMARY | 2024-04-13 08:34 | XMS_ITS | Encounter Summary ---
Author Organization [facility] Address [address] [place] [address] Phone Care Team Providers Care Roofer Metal Name Role Phone Betty Alonso MD Primary Care Provider [phone] Reason for Visit * Reason Comments Pain Encounter Details Date Type Department Care Team (Late st Contact Info) Description 12/30/2017 9:00 AM CDT Office Visit [facility] Orthopaedic Surgery [address] [facility] Medical Office Building [address] [place] [address] [place] [address] [place] [id number] Complex tear of medial meniscus of right knee as current injury, subsequent encounter (Primary Dx) Social History Tobacco Use Types Packs/Day Years Used Date Smoking Tobacco: Never Smokeless Tobacco: Never Comments Unknown Sex and Gender Information Value Date Recorded Sex Assigned at Not on file 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 Gender Identity Not on file Sexual Orientation Not on file documented as of this encounter Last Filed Vital Signs Vital Sign Reading Time Taken Comments Blood Pressure - - Pulse - - Temperature - - Respiratory Rate - - Oxygen Saturation - - Inhaled Oxygen Concentration - - Weight 83.9 kg (185 lb) 12/30/2017 9:06 AM CDT Height 162.6 cm (5' 4 ) 12/30/2017 9:06 AM CDT Body Mass Index 31.76 12/30/2017 9:06 AM CDT documented in this encounter Progress Notes * Sanya Anand MD - 12/30/2017 9:00 AM CDT NEW PATIENT VISIT CHIEF COMPLAINT Right knee pain HISTORY OF PRESENT ILLNESS 62-year-old female who presents with right knee pain after she was running 3 months ago and twistedher knee. She did not hear a pop but noticed pain and swelling since that time. Over the past 3 months, she has had progressive discomfort over her knee. Recently, she has noticed clicking in her knee. She now states that it is difficult for her to do activities of daily living, including walking around the grocery store, playing with her grand kids, or standing for long periods of time. The painis worsened with any twisting or pivoting movements. It is relieved by sitting. She rates the pain as a 6/10. She has tried oral anti-inflammatories which provide only minimal relief of symptoms. An MRI was obtained which revealed a medial meniscal tear. No past medical history on file. No past surgical history on file. Current Outpatient Prescriptions: ??? azithromycin (ZITHROMAX) 250 mg tablet, , Disp: , Rfl: 0 ??? cholecalciferol (VITAMIN D-3) 5,000 unit capsule, Take 5,000 Units by mouth daily., Disp: , Rfl: ??? cyanocobalamin 2,000 mcg tablet, Take 2,000 mcg by mouth daily., Disp: , Rfl: ??? DOXYCYCLINE HYCLATE 100 mg capsule, TK 1 C PO BID, Disp: , Rfl: 0 ??? lisinopril (PRINIVIL,ZESTRIL) 20 mg tablet, Take 20 mg by mouth daily., Disp: , Rfl: ??? lisinopril-hydroCHLOROthiazide (PRINZIDE,ZESTORETIC) 20-12.5 mg per tablet, TK 1 T PO ONCE A DAY, Disp: , Rfl: 6 ??? loratadine (CLARITIN) 10 mg tablet, TK 1 T PO QD, Disp: , Rfl: 1 ??? naproxen (NAPROSYN) 500 mg tablet, TK 1 T PO BID WF, Disp: , Rfl: 0 ??? omeprazole (PriLOSEC) 40 mg capsule, Take 40 mg by mouth daily., Disp: , Rfl: ??? predniSONE (DELTASONE) 10 mg tablet, TK 6 TS PO ONCE D FOR 2 DAYS THEN DECREASE BY ONE T QOD, Disp: , Rfl: 0 ??? venlafaxine XR (EFFEXOR-XR) 75 mg 24 hr capsule, TK ONE C PO ONCE A DAY, Disp: , Rfl: 3 Allergies Allergen Reactions ??? Codeine Stomach upset Social History Social History ??? Marital status: Single Spouse name: N/A ??? Number of children: N/A ??? Years of education: N/A Occupational History ??? Not on file. Social History Main Topics ??? Smoking status: Never Smoker ??? Smokeless tobacco: Never Used ??? Alcohol use Not on file ??? Drug use: Unknown ??? Sexual activity: Not on file Other Topics Concern ??? Not on file Social History Narrative ??? No narrative on file Family History Problem Relation Age of Onset ??? No Known Problems Mother ??? No Known Problems Father REVIEW OF SYSTEMS Review of Systems All other systems reviewed and are negative. PHYSICAL EXAMINATION Well-appearing female in NAD. Hearing intact to normal levels of conversation. No labored breathing. Height- 5 ft 4 in. Weight - 185 lb. Examination of the right knee reveals a moderate effusion. Sheis tender to palpation over the medial and lateral joint lines. She has a positive Kandi's test.She has a positive Thessaly test. She has a negative Julian's and negative posterior drawer. The knee is stable to varus and valgus testing at full extension and 30?? of knee flexion. She has 5/5 strength with ankle plantar flexion, dorsiflexion, and EHL. She has an easily palpable posterior tibialis pulse. REVIEW OF X-RAYS/STUDIES X-rays of the right knee reveal no osseous abnormalities. There is mild joint space narrowing in the medial compartment. IMPRESSION/DIAGNOSIS 62-year-old female with a right knee medial meniscal tear TREATMENT PLAN We discussed treatment options. Her symptoms have now been going on for 3 months with no relief with conservative measures. She is not developing mechanical symptoms. The pain is limiting her from participating in activities of daily living. I think a partial medial meniscectomy is a reasonable option to get her more relief of symptoms. The risks and benefits of surgery discussed with the patientand she elected to proceed. She will bring in the MRI disc so that they can be reviewed prior to wefinalize plans for surgery. Sanya Anand MD Supervisor Instrument Maintenance of Orthopaedic Surgery Sports Medicine and Shoulder Surgery Dictated using MModal Fluency Direct. Campaign Analyst variations may occur. documented in this encounter Plan of Treatment Not on file documented as of this encounter Visit Diagnoses Diagnosis Complex tear of medial meniscus of right knee as current injury, subsequent encounter- Primary documented in this encounter Historical Medications * This list may reflect changes made after this encounter. predniSONE (DELTASONE) 10 mg tablet TK 6 TS PO ONCE D FOR 2 DAYS THEN DECREASE BY ONE T QOD 0 11/15/2017 01/10/2018 naproxen (NAPROSYN) 500 mg tablet TK 1 T PO BID WF 0 11/15/2017 01/10/2018 DOXYCYCLINE HYCLATE 100 mg capsule TK 1 C PO BID 0 11/29/2017 01/10/2018 azithromycin (ZITHROMAX) 250 mg tablet 0 11/15/2017 01/10/2018 added in this encounter Care Teams Roofer Metal Relationship Specialty Start Date End Date Betty Alonso MD [address] [place] [address] PCP - General Family Medicine 10/07/17 04/14/22 documented as of this encounter
--- OUTSIDE RECORDS SUMMARY | 2024-04-13 08:34 | XMS_ITS | Encounter Summary ---
Author Organization [facility] Address [address] [address] Care Team Providers Care Golf Course Laborer Name Role Phone Bhargav Wilkes MD Primary Care Provider [phone] Reason for Referral * Diagnostic Imaging (Routine) - Closed Specialty Diagnoses / Procedures Referred By Darlene hodgson Referred To Contact Procedures Screening Mammogram Darion Casper MD [address] [place], [place] [id number] Phone: tel: Referral ID Status Reason Start Date Expiration Date Visits Re quested Visits Authorized [id number] Closed 04/16/2022 05/16/2023 1 1 PATIONAL HEALTH NURSE MANAGER Reason for Visit * Reason Comments New Patient New patient Encounter Details Date Type Department Care Team (Late st Contact Info) Description 04/15/2022 1:00 PM OCCUPATIONAL HEALTH NURSE MANAGER Office Visit [facility] Primary Care at [address] [address] Bhargav Wilkes MD [address] [place] [address] [address] [place] [address] Medicare annual wellness visit, initial (Primary Dx); Screen for colon cancer; Encounter for hepatitis C screening test for low risk patient; Screening for osteoporosis; Screening, lipid; Asymptomatic menopausal state; Need for vaccination; Primary hypertension Social History Tobacco Use Types Packs/Day Years Used Date Smoking Tobacco: Former Cigarettes 0.5 7.7 1 981 - 01/11/1988 Smokeless Tobacco: Never PHQ-2 Answer Date Recorded PHQ-2 Total Score (If total score is 3 or more points, staff should administer the PHQ-9) 2 04/15/2022 Comments Unknown Sex and Gender Information Value Date Recorded Sex Assigned at Not on file Legal Sex Female 1:00 AM OCCUPATIONAL HEALTH NURSE MANAGER Gender Identity Not on file Sexual Orientation Not on file documented as of this encounter Last Filed Vital Signs Vital Sign Reading Time Taken Comments Blood Pressure 108/70 04/15/2022 1:30 PM OCCUPATIONAL HEALTH NURSE MANAGER Pulse 69 04/15/2022 1:30 PM OCCUPATIONAL HEALTH NURSE MANAGER Temperature 36.2 ??C (97.1 ??F) 04/15/2022 1:30 PM CS T Respiratory Rate 16 04/15/2022 1:30 PM OCCUPATIONAL HEALTH NURSE MANAGER Oxygen Saturation 96% 04/15/2022 1:30 PM OCCUPATIONAL HEALTH NURSE MANAGER Inhaled Oxygen Concentration - - Weight - - Height - - Body Mass Index - - documented in this encounter Patient Instructions * Patient Instructions* Bhargav Wilkes MD - 04/15/2022 1:00 PM OCCUPATIONAL HEALTH NURSE MANAGER Insomnia- due to worry. Will consider anxiolytic (venlafaxine was concerning for interaction with baclofen). Might try ashwagandha for anxiety, may be helpful Labs pending Will continue current regimen otherwise Bone density, colonoscopy referral ordered Pneumonia vaccination today Thanks for coming in today! My medical assistants and I are thankful you have trusted us with your care, and hope that you received EXCELLENT care today! Please do not hesitate to call if you have any questions or concerns at [phone]. You may receive a phone call, text, MYCHART message, or e-mail asking about your care today. We would love to hear your feedback on how EXCELLENT your care wastoday! Wishing you better health, always. Dr. Wilkes PATIONAL HEALTH NURSE MANAGER PATIONAL HEALTH NURSE MANAGER PATIONAL HEALTH NURSE MANAGER PATIONAL HEALTH NURSE MANAGER PATIONAL HEALTH NURSE MANAGER documented in this encounter Progress Notes * Bhargav Wilkes MD - 04/15/2022 1:00 PM CST MEDICARE ANNUAL WELLNESS VISIT Hailee Tanner Medicare Health Risk Assessment Basic Information In general, would you say your health is: Poor Do you have an advance directive, such as a living will or durable power of disability attorney?: No Have you experienced any of the following problems currently or recently? Eating: No Grooming: No Bathing: No Walking: No Using the toilet: Yes Memory problems: No Difficulty speaking: No Pain: Yes Sexual Health: No Fatigue: Yes Have you experienced any of the following problems currently or recently? Laundry and/or housekeeping: No Handling Money: Yes Shopping: No Food preparation: Yes Transportation: Yes Taking and/or getting your own medications: No Do you use prescription drugs that are not prescribed for you?: No Problem List, Past Medical and Surgical History: Patient Active Problem List Diagnosis Acute medial meniscus tear of right knee Arthritis Brown-Sequard syndrome (CMS/HCC) (HCC) Cervical spondylosis with radiculopathy Cord compression (CMS/HCC) (HCC) GERD (gastroesophageal reflux disease) HTN (hypertension) Hyponatremia Neck pain Neurological deficit present Urinary retention Past Medical History: Diagnosis Date Acute bronchitis 10/2017 resolved with antibiotics Anxiety Arthritis knee--right GERD (gastroesophageal reflux disease) NOT very well controlled with meds, still trying to control Hiatal hernia Hoarseness of voice lasted for 3 months, ENT told patient thought it was secondary to reflux Hypertension well controlled with meds Myocardial infarction (CMS/HCC) (HCC) 2007 possibly, per patient, told per EKG. Not followed by MD--no f/u indicated per pt--this was done in an ER PONV (postoperative nausea and vomiting) Past Surgical History: Procedure Laterality Date BACK SURGERY SECTION x2 HYSTERECTOMY 1987 KNEE ARTHROSCOPY NECK SURGERY Family History: Family History Problem Relation Age of Onset Cancer Mother Hypertension Mother COPD Mother Irritable bowel syndrome Mother COPD Father Cancer Father Hypertension Father Hypertension Sister Diabetes Sister Hypertension Brother Social History: Social History Tobacco Use Smoking status: Former Packs/day: 0.50 Years: 7.00 Pack years: 3.50 Types: Cigarettes Start date: 1980 Quit date: 01/11/1988 Years since quittin.2 Smokeless tobacco: Never Substance and Sexual Activity Drug use: No Sexual activity: Defer Alcohol Use: Not on file Allergies: Allergies Allergen Reactions Codeine Stomach upset Oxycodone Nausea And Vomiting Medications: Current Outpatient Medications: ascorbic acid (ascorbic acid with christie hips) 500 mg tablet,chewable, , Disp: , Rfl: baclofen (LIORESAL) 10 mg tablet, TAKE 2 TABLETS BY MOUTH 4 TIMES DAILY, Disp: , Rfl: calcium carbonate-vitamin D3 (Calcium 500 + D) 1,250 mg (500 mg elemental)-400 unit chewable tablet, Take 1 tablet by mouth daily, Disp: , Rfl: cholecalciferol (Vitamin D3) 1,000 unit capsule, Take 1,000 Units by mouth daily, Disp: , Rfl: cranberry fruit 400 mg tablet, Take 1 tablet by mouth daily, Disp: , Rfl: cyanocobalamin (vitamin B-12) 100 mcg tablet, Take 100 mcg by mouth daily, Disp: , Rfl: diazePAM (VALIUM) 5 mg tablet, Take 2.5 mg by mouth nightly , Disp: , Rfl: folic acid (FOLVITE) 800 mcg tablet, Take 400 mcg by mouth daily, Disp: , Rfl: gabapentin (NEURONTIN) 300 mg capsule, TAKE 1 CAPSULE(300 MG) BY MOUTH EVERY 8 HOURS, Disp: , Rfl: magnesium oxide (MAG-OX) 250 mg (150.8 mg elemental) tablet, 250 mg daily, Disp: , Rfl: pantoprazole DR (PROTONIX) 40 mg EC tablet, Take 40 mg by mouth investigator cash shortage before breakfast, Disp: , Rfl: polyethylene glycol (MIRALAX) 17 gram/dose powder, , Disp: , Rfl: potassium &magnesium aspartate (MAGNESIUM, POTASSIUM ASPARTATE ORAL), Take by mouth, Disp: , Rfl: traZODone (DESYREL) 50 mg tablet, , Disp: , Rfl: ZINC ORAL, Take by mouth, Disp: , Rfl: Depression Screen: PHQ Screening Over the last 2 weeks, how often have you been bothered by any of the following problems? Little Interest or Pleasure in Doing Things: Several days Feeling Down, Depressed, or Hopeless: Several days PHQ-2 Total Score (If total score is 3 or more points, staff should administer the PHQ-9): 2 Over the past 2 weeks, how often have you been bothered by any of the following problems? Little Interest or Pleasure in Doing Things: Several days Feeling Down, Depressed, or Hopeless: Several days PHQ-2 Total Score (If total score is 3 or more points, staff should administer the PHQ-9): 2 Trouble Falling or Staying Asleep, or Sleeping too Much: Several days Feeling Tired or Having Little Energy: Several days Poor Appetite or Overeating: Nearly every day Feeling Bad About Yourself - or That You are a Failure or Have Let Yourself or Your Family Down: Nearly every day Trouble Concentrating on Things, Such as Reading the Newspaper or Watching Television: Nearly everyday Moving or Speaking so Slowly That Other People Could Have Noticed, or the Opposite - Being so Fidgety or Restless That You Have Been Moving Around a lot More Than Usual: Nearly every day Thoughts That You Would be Better off , or of Hurting Yourself in Some Way: Not at all PHQ-9 Total Score: 16 If you checked off any problems, how difficult have these problems made it for you to do your work,take care of things at home, or get along with other people?: Very difficult STEADI Fall Risk Screening In the past year, patient experienced: One or more falls in the last year: (!) Yes How many times?: 1 Was the patient injured in the fall?: Yes Vitals: Vitals BP 108/70 (BP Location: Right arm, Patient Position: Sitting) Pulse 69 Temp 36.2 ??C (97.1 ??F) (Temporal) Resp 16 SpO2 96% There is no height or weight on file to calculate BMI. Exam: Physical Exam Vitals reviewed. Constitutional: Appearance: She is well-developed. She is obese. HENT: Head: Normocephalic and atraumatic. Right Ear: External ear normal. Left Ear: External ear normal. Eyes: Conjunctiva/sclera: Conjunctivae normal. Cardiovascular: Rate and Rhythm: Normal rate and regular rhythm. Heart sounds: Normal heart sounds. No murmur heard. No friction rub. No gallop. Pulmonary: Effort: Pulmonary effort is normal. Breath sounds: Normal breath sounds. No wheezing, rhonchi or rales. Abdominal: General: Bowel sounds are normal. Palpations: Abdomen is soft. Tenderness: There is no abdominal tenderness. Musculoskeletal: General: Normal range of motion. Cervical back: Normal range of motion and neck supple. Skin: General: Skin is warm and dry. Capillary Refill: Capillary refill takes less than 2 seconds. Neurological: Mental Status: She is alert and oriented to person, place, and time. Sensory: Sensory deficit present. Motor: Weakness present. Gait: Gait abnormal. Psychiatric: Behavior: Behavior normal. Care Team Providers: Patient Care Team: Bhargav Wilkes MD as PCP - General (Family Medicine) Primary Pharmacy/DME suppliers: [facility] #[id number] - [place], [place] - [address] AT [place] [address] [place] [address] Detection of Cognitive Impairment: The patient does not have cognitive impairment based on direct observation, discussion with patientor family, or review of medical records. Health Maintenance: Health Maintenance Topics with due status: Overdue Topic Date Due Fall Risk Assessment Never done Osteoporosis Screening-Bone Density Scan Never done Colon Cancer Screening-Colonoscopy Never done Hepatitis C Screening Never done Breast Cancer Screening-Mammogram 03/25/2019 Pneumococcal vaccine 65+ Never done Health Maintenance Topics with due status: Not Due Topic Last Completion Date DTaP/Tdap/Td Vaccine 11/11/2013 Depression Screening-PHQ 04/15/2022 Well Visit 65+ 04/15/2022 Health Maintenance Topics with due status: Completed Topic Last Completion Date Covid-19 Vaccine 12/25/2021 Influenza Vaccine 12/25/2021 Zoster Vaccines 12/25/2021 Counseling and Referral of Preventative Services: Lifestyle Recommendations Increase Physical Activity, Reduce Weight, and Improve Diet Advanced Directive Durable Power of Warehouse Selector: No Living Will: No Assessment and Plan: Diagnoses and all orders for this visit: Medicare annual wellness visit, initial (Primary) Assessment & Plan: A(n) initial Medicare Annual Wellness Visit has been performed today. Hailee Tanner is not up todate on screening tests. She is in need of DEXA, Breast cancer screening, Colon cancer screening and Cholesterol screening- mammogram done last month. She is not up to date on needed preventative vaccinations; She is in need of Pneumonia (Prevnar-13 or Pneumovax-23) and Zoster. She has received herfirst Zoster dose; will not be able to get here due to medicare preference Insomnia- due to worry. Will consider anxiolytic (venlafaxine was concerning for interaction with baclofen). Might try ashwagandha for anxiety, may be helpful Labs pending Will continue current regimen otherwise Bone density, colonoscopy referral ordered Pneumonia vaccination today Orders: - Comprehensive metabolic panel; Future - CBC with auto differential; Future Screen for colon cancer - Ambulatory referral to Gastroenterology; Future Encounter for hepatitis C screening test for low risk patient - Hepatitis C antibody; Future Screening for osteoporosis - Dexa Axial Skeleton Bone Density 1 or 2 Site; Future Screening, lipid - Lipid panel; Future Asymptomatic menopausal state - Dexa Axial Skeleton Bone Density 1 or 2 Site; Future Need for vaccination Comments: she will get her pneumonia vaccine at pharmacy (with her second Shingrix) Primary hypertension - Urinalysis reflex to microscopic; Future Patient here for annual Medicare wellness visit and for review of complete medical problem list. All the elements of the plan were completed as outlined by CMS. A copy of the prevention plan was [...] update and summary of today's office visit. PATIONAL HEALTH NURSE MANAGER documented in this encounter Miscellaneous Notes * Assessment & Plan Note - Bhargav Wilkes MD - 04/15/2022 2:09 PM OCCUPATIONAL HEALTH NURSE MANAGER Associated Problem(s): Medicare annual wellness visit, initial A(n) initial Medicare Annual Wellness Visit has been performed today. Hailee Tanner is not up todate on screening tests. She is in need of DEXA, Breast cancer screening, Colon cancer screening and Cholesterol screening- mammogram done last month. She is not up to date on needed preventative vaccinations; She is in need of Pneumonia (Prevnar-13 or Pneumovax-23) and Zoster. She has received herfirst Zoster dose; will not be able to get here due to medicare preference Insomnia- due to worry. Will consider anxiolytic (venlafaxine was concerning for interaction with baclofen). Might try ashwagandha for anxiety, may be helpful Labs pending Will continue current regimen otherwise Bone density, colonoscopy referral ordered Pneumonia vaccination today PATIONAL HEALTH NURSE MANAGER documented in this encounter Plan of Treatment Not on file documented as of this encounter Procedures Procedure Name Priority Date/Time Associated Diagnosis Comments SCREENING MAMMOGRAM Schedule Routine, Read Routine (OP Routine) 01/29/2022 documented in this encounter Results * CBC with auto differential (04/15/2022 2:07 PM OCCUPATIONAL HEALTH NURSE MANAGER) Pathologist [facility] WBC 4.5 3.8 - 9.9 K/cumm [facility] Hgb 13.2 11.9 - 15.5 g/dL [facility] Hct 40.8 35.6 - 45.5 % [facility] Plt 174 150 - 400 K/cumm [facility] MPV 10.4 9.1 - 12.3 fL [facility] RBC 4.43 3.90 - 5.20 M/cumm [facility] MCV 92.1 81.3 - 96.4 fL [facility] MCH 29.8 27.1 - 33.3 pg [facility] MCHC 32.4 32.3 - 35.7 g/dL [facility] RDW CV 13.8 11.1 - 14.9 % [facility] RDW SD 47.2 35.7 - 48.1 fL [facility] NRBC abs 0.00 0.00 - 0.01 K/cumm [facility] Blood 04/15/2022 2:07 PM OCCUPATIONAL HEALTH NURSE MANAGER 04/15/2022 8:10 PM OCCUPATIONAL HEALTH NURSE MANAGER us Bhargav Wilkes MD LAB BLOOD ORDERABLES Final Result [facility] [id number] Department [place] [address] * (ABNORMAL) Comprehensive metabolic panel (04/15/2022 2:07 PM OCCUPATIONAL HEALTH NURSE MANAGER) Sodium 141 135 - 145 mmol/L [facility] Potassium, pl 4.4 3.3 - 4.9 mmol/L [facility] Chloride 105 97 - 110 mmol/L [facility] CO2 26 22 - 32 mmol/L [facility] Anion gap 10 2 - 15 mmol/L [facility] BUN 28(H) 8 - 25 mg/dL [facility] Creatinine 0.99 0.60 - 1.10 mg/dL [facility] Glucose 96 70 - 199 mg/dL [facility] Comment: [...] classification and Diagnosis of Diabetes Diabetes Care 2017;40 (Suppl. 1):S11. Current interpretive data was last revised 2017. Calcium 9.5 8.5 - 10.3 mg/dL [facility] Bilirubin, total 0.5 0.1 - 1.2 mg/dL [facility] Protein, pl 7.0 6.5 - 8.5 g/dL [facility] Albumin 4.4 3.5 - 5.0 g/dL [facility] Alk phos 101 40 - 130 Units/L [facility] ALT 12 7 - 45 Units/L [facility] AST 20 10 - 45 Units/L [facility] Blood 04/15/2022 2:07 PM OCCUPATIONAL HEALTH NURSE MANAGER 04/15/2022 8:10 PM OCCUPATIONAL HEALTH NURSE MANAGER us Bhargav Wilkes MD LAB BLOOD ORDERABLES Final Result [facility] [address] Department [place] [address] * (ABNORMAL) Lipid panel (04/15/2022 2:07 PM OCCUPATIONAL HEALTH NURSE MANAGER) Cholesterol 184 30 - 199 mg/dL [facility] Comment: Interpretive Data Ages [...] Data was last revised on 2017. Triglycerides 193(H) <=149 mg/dL [facility] Comment: Interpretive Data [...] Data was last revised on 2017. HDL 51 >=40 mg/dL [facility] Comment: Interpretive Data [...] was last revised on 2017. LDL, calculated 94 <=129 mg/dL [facility] Comment: Interpretive Data Ages [...] was last revised on 2017. Non-HDL Cholesterol 133 mg/dL [facility] Comment: Interpretive Data Ages [...] 2017. Chol/HDL ratio 4 [facility] Blood 04/15/2022 2:07 PM OCCUPATIONAL HEALTH NURSE MANAGER 04/15/2022 8:10 PM OCCUPATIONAL HEALTH NURSE MANAGER Bhargav Wilkes MD LAB BLOOD ORDERABLES Final Result Performing Organization Address [facility] Phone Number LELA [phone] [place] [address] * (ABNORMAL) Urinalysis reflex to microscopic (04/15/2022 2:07 PM OCCUPATIONAL HEALTH NURSE MANAGER) Color, ur Yellow Yellow [facility] Clarity, ur Clear Clear [facility] Specific gravity, ur 1.024 1.003 - 1.030 [facility] pH, urine 5.5 [facility] Protein, ur ql Negative Negative [facility] Glucose, ur ql Negative Negative [facility] Ketones, ur Negative Negative [facility] Bilirubin, ur Negative Negative [facility] Blood, ur Negative Negative [facility] Urobilinogen, ur 0.2 <2.0 mg/dL [facility] Nitrite, ur Negative Negative [facility] Leukocyte esterase, ur 1+(A) Negative [facility] UA reflex comment Reflex to microscopic UA will be performed. [facility] Urine 04/15/2022 2:07 PM OCCUPATIONAL HEALTH NURSE MANAGER 04/15/2022 8:10 PM OCCUPATIONAL HEALTH NURSE MANAGER Narrative [facility] - 04/15/2022 8:43 PM OCCUPATIONAL HEALTH NURSE MANAGER ?? Urine pH is affected by diet, medications, systemic acid-base disturbances, and renal tubular function. ??pH may affect urinary stone formation. ??For example, urine pH below 6.0 may help reduce the tendency for calcium phosphate stones and pH greater than 6.0 may reduce the tendency for uric acid stone formation. Source: [facility] [employer]. Last revised 04-22-2017 Bhargav Wilkes MD LAB URINE ORDERABLES Final Result Performing Organization Address [facility] Co de Phone Number LELA ZEPEDA [id number] [email or web address] [address] * Hepatitis C antibody (04/15/2022 2:07 PM OCCUPATIONAL HEALTH NURSE MANAGER) Hep C Ab Nonreactive Nonreactive [facility] Comment: Interpretive Data Nonreactive: Antibodies to HCV [...] revised on 2019. Blood 04/15/2022 2:07 PM OCCUPATIONAL HEALTH NURSE MANAGER 04/15/2022 8:10 PM OCCUPATIONAL HEALTH NURSE MANAGER Bhargav Wilkes MD LAB MICROBIOLOGY - GENERAL ORDERABLES Final Result Performing Organization Address City/State/ZIP [place] Phone Number [facility]ELA [phone] [place] [address] * Screening Mammogram (01/29/2022) Anatomical Region Laterality Modality Breast N/A Mammography Narrative 01/29/2022 No malignancy Historical Provider IMHema MAMMO PROCEDURES Maura l Result documented in this encounter Visit Diagnoses Diagnosis Medicare annual wellness visit, initial- Primary Screen for colon cancer Special screening for malignant neoplasms, colon Encounter for hepatitis C screening test for low risk patient Screening for osteoporosis Special screening for osteoporosis Screening, lipid Asymptomatic menopausal state Need for vaccination Need for prophylactic vaccination and inoculation against unspecified single disease Primary hypertension Unspecified essential hypertension Medicare annual wellness visit, initial Encounter for hepatitis C screening test for low risk patient Primary hypertension Unspecified essential hypertension Screening, lipid documented in this encounter Discontinued Medications Medication Sig Discontinue Reason Start Date End Da te cholecalciferol (VITAMIN D-3) 5,000 unit capsule Take 5,000 Units by mouth daily. 04/15/2022 cyanocobalamin 2,000 mcg tablet Take 2,000 mcg by mouth daily. 04/15/2022 HYDROcodone-acetaminophe n (NORCO) 5-325 mg per tabletIndications:Pain TAKE 1-2 TABLETS EVERY 4-6 HOURS NEEDED FOR PAIN 01/12/2018 04/15/2022 lisinopril-hydroCHLOROth iazide (PRINZIDE,ZESTORETIC) 20-12.5 mg per tabletIndications:hypert ension TK 1 T PO ONCE A DAY 09/30/2017 04/15/2022 loratadine (CLARITIN) 10 mg tablet TK 1 T PO QD 07/25/2017 04/15/2022 omeprazole (PriLOSEC) 40 mg capsule Take 40 mg by mouth daily. 04/15/2022 ondansetron (ZOFRAN) 4 mg tablet Take 1 tablet (4 mg total) by mouth every 8 (eight) hours as needed for nausea or vomiting. 01/12/2018 04/15/2022 venlafaxine XR (EFFEXOR-XR) 75 mg 24 hr capsule TK ONE C PO ONCE A DAY 07/25/2017 04/15/2022 documented as of this encounter Historical Medications * This list may reflect changes made after this encounter. calcium carbonate-vitami n D3 1,250 mg (500 mg elemental)-400 unit chewable tablet Take 1 tablet by mouth daily folic acid (FOLVITE) 800 mcg tablet Take 0.5 tablets (400 mcg total) by mouth daily ascorbic acid (VITAMIN C) 500 mg tablet,chewable cyanocobalamin (Vitamin B-12) 100 mcg tabletIndication s:Prevention of Vitamin B12 Deficiency Take 1 tablet (100 mcg total) by mouth daily cholecalciferol (VITAMIN D-3) 1,000 unit capsule Take 1 capsule (1,000 Units total) by mouth daily polyethylene glycol (MIRALAX) 17 gram/dose powder 09/01/2021 baclofen (LIORESAL) 10 mg tablet TAKE 2 TABLETS BY MOUTH 4 TIMES DAILY 03/10/2022 cranberry fruit 400 mg tablet Take 1 tablet by mouth daily ZINC ORAL Take by mouth 4 magnesium oxide (MAG-OX) 250 mg (150.8 mg elemental) tabletIndication s:hypomagnesemia 1 tablet (250 mg total) daily 4 traZODone (DESYREL) 50 mg tablet 04/13/[address] (PROTONIX) 40 mg EC tablet Take 1 tablet (40 mg total) by mouth investigator cash shortage before breakfast 04/17/2021 4 gabapentin (NEURONTIN) 300 mg capsule TAKE 1 CAPSULE(300 MG) BY MOUTH EVERY 8 HOURS 03/13/2022 3 diazePAM (VALIUM) 5 mg tablet Take 0.5 tablets (2.5 mg total) by mouth nightly 12/24/2021 4 potassium &magnesium aspartate (MAGNESIUM, POTASSIUM ASPARTATE ORAL) Take by mouth 4 added in this encounter Care Teams Golf Course Laborer Relationship Specialty Start Date End Date Bhargav Wilkes MD [address] [place] [address] PCP - General Family Medicine 04/15/22 documented as of this encounter
--- OUTSIDE RECORDS SUMMARY | 2024-04-13 08:34 | XMS_ITS | Encounter Summary ---
Author Organization [facility] [facility] Address [address] [place] [address] Phone Care Team Providers Care Goring Cutter Name Role Phone Betty Alonso MD Primary Care Provider [phone] Reason for Visit * Reason Onset Date Comments Back Pain 11/10/2017 Knee Pain 11/10/2017 Encounter Details Date Type Department Care Team (Late st Contact Info) Description 11/10/2017 Telephone [facility] Orthopaedic Surgery [id number] [place] [address] 2nd [address] [place] [address] Richard Branch, PA [address] [place] [address] [address] [place] [address] Back Pain; Knee Pain Social History Tobacco Use Types Packs/Day Years Used Date Smoking Tobacco: Never Smokeless Tobacco: Never Comments Unknown Sex and Gender Information Value Date Recorded Sex Assigned at Not on file 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 are very painful. Per Nathan's note, patient may have a torn meniscus andif still in pain, she would need an MRI. Patient states that she thinks that it may be her back causing this pain and she would like to consult her back surgeon first and see what he recommends and then give our office a call if she were to happen to need an MRI. documented in this encounter Plan of Treatment Not on file documented as of this encounter Visit Diagnoses Not on filedocumented in this encounter Care Teams Goring Cutter Relationship Specialty Start Date End Date Betty Alonso MD [address] [place] [address] PCP - General Family Medicine 10/07/17 04/14/22 documented as of this encounter
--- OUTSIDE RECORDS SUMMARY | 2024-04-13 08:34 | XMS_ITS | Encounter Summary ---
Author Organization [facility] Address [address] [place] [address] Care Team Providers Care Intelligence Clerk Name Role Phone Bhargav Wilkes MD Primary Care Provider [phone] Encounter Details Date Type Department Care Team (Latest Contact Info) Description 04/15/2022 2:07 PM ADVERTISING TRAFFIC MANAGER - 04/15/2022 11:59 PM ADVERTISING TRAFFIC MANAGER Hospital Encounter [facility] [id number] [place] [address] Medicare annual wellness visit, initial; Encounter for hepatitis C screening test for low risk patient; Primary hypertension; Screening, lipid Discharge Disposition: Discharge to home or self [...] on file Legal Sex Female 1:00 AM ADVERTISING TRAFFIC MANAGER Gender Identity Not on file Sexual [...] tablet (100 mcg total) by mouth daily folic acid (FOLVITE) 800 mcg tablet Take 0.5 tablets (400 mcg total) by mouth daily polyethylene glycol (MIRALAX) 17 gram/dose powder 09/01/2021 diazePAM (VALIUM) 5 mg tablet Take 0.5 tablets (2.5 mg total) by mouth nightly 12/24/2021 4 gabapentin (NEURONTIN) 300 mg capsule TAKE 1 CAPSULE(300 MG) BY MOUTH EVERY 8 HOURS 03/13/2022 3 magnesium oxide (MAG-OX) 250 mg (150.8 mg elemental) tabletIndication s:hypomagnesemia 1 tablet (250 mg total) daily [address] (PROTONIX) 40 mg EC tablet Take 1 tablet (40 mg total) by mouth rn clinician before breakfast 04/17/2021 4 potassium &magnesium aspartate (MAGNESIUM, POTASSIUM ASPARTATE ORAL) Take by mouth 4 traZODone (DESYREL) 50 mg tablet 04/13/2022 3 ZINC ORAL Take by mouth 4 documented as of this encounter Discharge Disposition Disposition Code Departure Means Destination Discharge to home or self care documented in this encounter Plan of Treatment Not on file documented as of this encounter Procedures Procedure Name Priority Date/Time Associated Diagnosis Comments EGFR Routine 04/15/2022 2:07 PM ADVERTISING TRAFFIC MANAGER Medicare annual wellness visit, initial DIFFERENTIAL AUTO Routine 04/15/2022 2:0 7 PM ADVERTISING TRAFFIC MANAGER Medicare annual wellness visit, initial URINALYSIS AND REFLEX TO MICROSCOPIC Routine 04/15/2022 2:07 PM ADVERTISING TRAFFIC MANAGER Primary hypertension CBC WITH AUTO DIFFERENTIAL Routine 04/15/2022 2:07 PM ADVERTISING TRAFFIC MANAGER Medicare annual wellness visit, initial HEPATITIS C ANTIBODY Routine 04/15/2022 2:07 PM ADVERTISING TRAFFIC MANAGER Encounter for hepatitis C screening test for low risk patient URINALYSIS, MICROSCOPIC ONLY Routine 04/15/2022 2:07 PM ADVERTISING TRAFFIC MANAGER Primary hypertension LIPID PANEL Routine 04/15/2022 2:07 PM ADVERTISING TRAFFIC MANAGER Screening, lipid COMPREHENSIVE METABOLIC PANEL Routine 04/15/2022 2:07 PM ADVERTISING TRAFFIC MANAGER Medicare annual wellness visit, initial documented in this encounter Results * (ABNORMAL) Urinalysis, microscopic only (04/15/2022 2:07 PM ADVERTISING TRAFFIC MANAGER) WBC, ur 21-50(A) 0 - 5 /HPF [facility] RBC, ur 3-5(A) 0 - 2 /HPF [facility] Epithelial cells, squamous, ur 1-5 0 - 5 /HPF [facility] Bacteria, ur Trace(A) [facility] Mucous, ur Present(A) [facility] Urine 04/15/2022 2:07 PM ADVERTISING TRAFFIC MANAGER 04/15/2022 8:10 PM ADVERTISING TRAFFIC MANAGER us Bhargav Wilkes MD LAB URINE ORDERABLES Final Result [facility] [address] [place] [address] * eGFR (04/15/2022 2:07 PM ADVERTISING TRAFFIC MANAGER) eGFR 62 mL/min/1. 73 m2 [facility] Comment: Interpretive Data Reference Interval Normal ?>/= [...] of Race in Diagnosing Kidney Disease, JASN 2020). The CKD-EPI equation should not be used for patients with unstable renal function and has not been validated in children and those over 70. Current interpretive data was last reviewed 2021. Blood 04/15/2022 2:07 PM ADVERTISING TRAFFIC MANAGER 04/15/2022 8:14 PM ADVERTISING TRAFFIC MANAGER us Bhargav Wilkes MD LAB BLOOD ORDERABLES Final Result Performing Organization Address City/State/ZIP Co ks Phone Number [facility] [address] [place] [address] * Differential, auto (04/15/2022 2:07 PM ADVERTISING TRAFFIC MANAGER) Neutrophil abs 2.4 1.7 - 6.5 K/cumm [facility] Imm gran abs 0.0 0.0 - 0.1 K/cumm [facility] Lymphocyte abs 1.7 0.8 - 3.3 K/cumm [facility] Monocyte abs 0.4 0.2 - 0.8 K/cumm [facility] Eosinophil abs 0.0 0.0 - 0.5 K/cumm [facility] Basophil abs 0.0 0.0 - 0.1 K/cumm [facility] Neutrophil pct 53.3 % [facility] Comment: Interpretive Data Percent cell count reference ranges are not reported, since discordance with absolute values may lead to misinterpretation of CBC data. Current Interpretive Data was last revised on 2017. Imm gran pct 0.2 % [facility] Comment: Interpretive Data Percent cell count reference ranges are not reported, since discordance with absolute values may lead to misinterpretation of CBC data. Current Interpretive Data was last revised on 2017. Lymphocyte pct 38.3 % [facility] Comment: Interpretive Data Percent cell count reference ranges are not reported, since discordance with absolute values may lead to misinterpretation of CBC data. Current Interpretive Data was last revised on 2017. Monocyte pct 8.0 % [facility] Comment: Interpretive Data Percent cell count reference ranges are not reported, since discordance with absolute values may lead to misinterpretation of CBC data. Current Interpretive Data was last revised on 2017. Eosinophil pct 0.2 % [facility] Comment: Interpretive Data Percent cell count reference ranges are not reported, since discordance with absolute values may lead to misinterpretation of CBC data. Current Interpretive Data was last revised on 2017. Basophil pct 0.0 % [facility] Comment: Interpretive Data Percent cell count reference ranges are not reported, since discordance with absolute values may lead to misinterpretation of CBC data. Current Interpretive Data was last revised on 2017. Blood 04/15/2022 2:07 PM ADVERTISING TRAFFIC MANAGER 04/15/2022 8:10 PM ADVERTISING TRAFFIC MANAGER Bhargav Wilkes MD LAB BLOOD ORDERABLES Final Result [facility] [address] Department [place] [address] * (ABNORMAL) Comprehensive metabolic panel (04/15/2022 2:07 PM ADVERTISING TRAFFIC MANAGER) Sodium 141 135 - 145 mmol/L [facility] Potassium, pl 4.4 3.3 - 4.9 mmol/L [facility] Chloride 105 97 - 110 mmol/L [facility] CO2 26 22 - 32 mmol/L [facility] Anion gap 10 2 - 15 mmol/L [facility] BUN 28(H) 8 - 25 mg/dL [facility] Creatinine 0.99 0.60 - 1.10 mg/dL [facility] Glucose 96 70 - 199 mg/dL [facility] Comment: Interpretive Data Fasting glucose >/= 126 [...] Units/L [facility] Blood 04/15/2022 2:07 PM ADVERTISING TRAFFIC MANAGER 04/15/2022 8:10 PM ADVERTISING TRAFFIC MANAGER Bhargav Wilkes MD LAB BLOOD ORDERABLES Final Result Performing Organization Address City/State/[facility] Co [place]s Phone Number [facility] [address] Department [place] [address] * (ABNORMAL) Lipid panel (04/15/2022 2:07 PM ADVERTISING TRAFFIC MANAGER) Cholesterol 184 30 - 199 mg/dL [...] revised on 2017. Triglycerides 193(H) <=149 mg/dL [facility] Comment: Interpretive Data Ages [...] on 2017. HDL 51 >=40 mg/dL [facility] Comment: Interpretive Data Ages < or = [...] on 2017. LDL, calculated 94 <=129 mg/dL [facility] Comment: Interpretive Data Ages < or = [...] 4 [facility] CH Blood 04/15/2022 2:07 PM ADVERTISING TRAFFIC MANAGER 04/15/2022 8:10 PM ADVERTISING TRAFFIC MANAGER Bhargav Wilkes MD LAB BLOOD ORDERABLES Final Result [facility] [address] Department [place] [address] * (ABNORMAL) Urinalysis reflex to microscopic (04/15/2022 2:07 PM ADVERTISING TRAFFIC MANAGER) Color, ur Yellow Yellow [facility] [...] Reflex to microscopic UA will be performed. [facility] Urine 04/15/2022 2:07 PM ADVERTISING TRAFFIC MANAGER 04/15/2022 8:10 PM ADVERTISING TRAFFIC MANAGER Narrative [facility] - 04/15/2022 8:43 PM ADVERTISING TRAFFIC MANAGER ?? Urine pH is affected by diet, medications, systemic acid-base disturbances, and renal tubular function. ??pH may affect urinary stone formation. ??For example, urine pH below 6.0 may help reduce the tendency for calcium phosphate stones and pH greater than 6.0 may reduce the tendency for uric acid stone formation. Source: [address]. Last revised 04-22-2017 Bhargav Wilkes MD LAB URINE ORDERABLES Final Result Performing Organization Address [facility] Phone Number [facility] [address] [place] [address] * Hepatitis C antibody (04/15/2022 2:07 PM ADVERTISING TRAFFIC MANAGER) Hep C Ab Nonreactive Nonreactive [facility] Comment: Interpretive Data Nonreactive: Antibodies to HCV [...] revised on 2019. Blood 04/15/2022 2:07 PM ADVERTISING TRAFFIC MANAGER 04/15/2022 8:10 PM ADVERTISING TRAFFIC MANAGER Bhargav Wilkes MD LAB MICROBIOLOGY - GENERAL ORDERABLES Final Result Performing Organization Address [facility] de Phone Number [facility] [address] Department [place] [address] * CBC with auto differential (04/15/2022 2:07 PM ADVERTISING TRAFFIC MANAGER) WBC 4.5 3.8 - 9.9 K/cumm [facility] Hgb 13.2 11.9 - 15.5 g/dL [facility] Hct 40.8 35.6 - 45.5 % [facility] Plt 174 150 - 400 K/cumm [facility] MPV 10.4 9.1 - 12.3 fL [facility] CH RBC 4.43 3.90 - 5.20 M/cumm [facility] CH MCV 92.1 81.3 - 96.4 fL [facility] CH MCH 29.8 27.1 - 33.3 pg [facility] CH MCHC 32.4 32.3 - 35.7 g/dL [facility] CH RDW CV 13.8 11.1 - 14.9 % [facility] CH RDW SD 47.2 35.7 - 48.1 fL [facility] NRBC abs 0.00 0.00 - 0.01 K/cumm [facility] Blood 04/15/2022 2:07 PM ADVERTISING TRAFFIC MANAGER 04/15/2022 8:10 PM ADVERTISING TRAFFIC MANAGER us Bhargav Wilkes MD LAB BLOOD ORDERABLES Final Result [facility] [address] Department [place] [address] documented in this encounter Visit Diagnoses Diagnosis Medicare annual wellness visit, initial Encounter for hepatitis C screening test for low risk patient Primary hypertension Unspecified essential hypertension Screening, lipid documented in this encounter Care Teams Intelligence Clerk Relationship Specialty Start Date End Date Bhargav Wilkes MD [facility] [place] [address] PCP - General Family Medicine 04/15/22 documented as of this encounter
--- OUTSIDE RECORDS SUMMARY | 2024-04-13 08:34 | XMS_ITS | Encounter Summary ---
Author Organization [facility] Address [address] [place] [address] Care Team Providers Care Wound Care Coordinator Name Role Phone Betty Alonso MD Primary Care Provider [phone] Encounter Details Date Type Department Care Team (Late st Contact Info) Description 09/12/2021 Orders Only [facility] Cardiology [address] [place] [address] Gorge Hobbs MD [address] [facility] [address] [place] [address] Social History Tobacco Use Types Packs/Day Years Used Date Smoking Tobacco: Former Cigarettes 0.5 7.7 1 981 - 01/11/1988 Smokeless Tobacco: Never Comments Unknown Sex and Gender Information Value Date Recorded Sex Assigned at Not on file 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 Gender Identity Not on file Sexual Orientation Not on file documented as of this encounter Plan of Treatment Not on file documented as of this encounter Procedures Procedure Name Priority Date/Time Associated Diagnosis Comments CARDIOLOGY DOCUMENT SCAN Routine 09/12/2021 documented in this encounter Results * Cardiology Document Scan (09/12/2021) Anatomical Region Laterality Modality Other Gorge Hobbs MD CV CARDIAC SERVICES PROC EDURES Final Result documented in this encounter Visit Diagnoses Not on filedocumented in this encounter Care Teams Wound Care Coordinator Relationship Specialty Start Date End Date Betty Alonso MD [address] [place] [address] PCP - General Family Medicine 10/07/17 04/14/22 documented as of this encounter
--- OUTSIDE RECORDS SUMMARY | 2024-04-13 08:34 | XMS_ITS | Encounter Summary ---
Author Organization [facility] [employer] of [facility] Address [address] [place] [address] Phone Care Team Providers Care Patient Care Specialist Name Role Phone Betty Alonso MD Primary Care Provider [phone] Encounter Details Date Type Department Care Team (Late st Contact Info) Description 01/12/2018 Orders Only [facility] Orthopaedic Surgery [address] [place] [address] [place] [address] [place] [address] Social History Tobacco Use Types Packs/Day Years Used Date Smoking Tobacco: Former Cigarettes 0.5 7.7 1 981 - 01/11/1988 Smokeless Tobacco: Never Comments Unknown Sex and Gender Information Value Date Recorded Sex Assigned at Not on file 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 20 tablet 01/12/2018 3 HYDROcodone-acetam inophen (NORCO) 5-325 mg per tabletIndications: Pain TAKE 1-2 TABLETS EVERY 4-6 HOURS NEEDED FOR PAIN 20 tablet 01/12/2018 3 documented in this encounter Plan of Treatment Not on file documented as of this encounter Visit Diagnoses Not on filedocumented in this encounter Care Teams Patient Care Specialist Relationship Specialty Start Date End Date Betty Alonso MD [address] [place] [address] PCP - General Family Medicine 10/07/17 04/14/22 documented as of this encounter
--- OUTSIDE RECORDS SUMMARY | 2024-04-13 08:34 | XMS_ITS | Encounter Summary ---
Author Organization [facility] [employer] [facility] Address [address] [place] [address] Phone Care Team Providers Care Mold Press Operator Name Role Phone Betty Alonso MD Primary Care Provider [phone] Reason for Visit * Reason Comments Post-op Encounter Details Date Type Department Care Team (Late st Contact Info) Description 03/08/2018 12:30 PM METAL HANDLER Office Visit [facility] Orthopaedic Surgery [address] [place] [address] [place] [address] [place], [place] [id number] Right knee pain, unspecified chronicity (Primary Dx) Social History Tobacco Use Types Packs/Day Years Used Date Smoking Tobacco: Former Cigarettes 0.5 7.7 1 981 - 01/11/1988 Smokeless Tobacco: Never Comments Unknown Sex and Gender Information Value Date Recorded Sex Assigned at Not on file Legal 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 She has mild anterior knee pain. She says this gets better with therapy exercises. She says that the medial knee pain has resolved. She is happy with her progress. PHYSICAL EXAMINATION Well-appearing female in NAD. Hearing intact to normal levels of conversation. No labored breathing. Her right knee demonstrates no effusion. She has mild quad atrophy on the right compared to the left. She has 0-130 degrees of motion today. She has good quadriceps tone. She has no medial joint linetenderness. She is neurovascular intact distally. IMPRESSION/DIAGNOSIS Improving 8 weeks status post arthroscopic partial medial meniscectomy TREATMENT PLAN She should continue doing strengthening exercises for her quadriceps. She should use ice and oral anti-inflammatories as needed for pain. We will see her back if her symptoms worsen. Sanya Anand MD Internal Audit Manager of Orthopaedic Surgery Sports Medicine and Shoulder Surgery Dictated using MModal Fluency Direct. Line Therapist variations may occur. L HANDLER documented in this encounter Plan of Treatment Not on file documented as of this encounter Visit Diagnoses Diagnosis Right knee pain, unspecified chronicity- Primary documented in this encounter Care Teams Mold Press Operator Relationship Specialty Start Date End Date Betty Alonso MD [address] [place] [address] PCP - General Family Medicine 10/07/17 04/14/22 documented as of this encounter
--- OUTSIDE RECORDS SUMMARY | 2024-04-13 08:34 | XMS_ITS | Encounter Summary ---
Author Organization [facility] Healthcare Address [address] [place] [address] Care Team Providers Care Services Program Manager Name Role Phone Betty Alonso MD Primary Care Provider [phone] Encounter Details Date Type Department Care Team (Late st Contact Info) Description 01/17/2018 9:42 AM CDT Anesthesia Event [facility] [address] [place] [id number] Karin Banks MD [address] [place] [address] Zaina Roque NP [address] [place] [address] Anesthesia Record Procedure Summary Procedure Name Responsible Anesthesiologist Anesthesia Start Time Anesthesia Stop Time RIGHT KNEE ARTHROSCOPIC PARTIAL MEDIAL MENISCECTOMY (Right: Knee) Karin Banks MD 01/17/18 0942 01/17/18 1042 Events Date Time Event Comment 01/17/2018 0819 0942 An Start 0947 In Room 0947 AN Equip Check 0947 An Start Data 0952 An Induction The patient was reevaluated immediately before moderate or deep sedation use and before anesthesia induction. 0954 An LMA 0954 Anesthesia Ready 1004 Incision Start 1033 Airway Removed 1037 an stop data 1038 Out of Room 1042 Handoff to RN I completed my handoff to the receiving nurse during which we: 1. Patient identified 2. Responsible provider identified 3. Pertinent medical history reviewed 4. Procedure type and surgical course discussed 5. Intraoperative anesthetic management and any significant issues discussed 6. Expectations and concerns for postop period discussed 7. Questions solicited from receiving nurse 8. Patient disposition at the time of handoff: PACU 1042 An Stop Meds Name Total midazolam 2 mg/2 mL 2 mg fentaNYL PF 75 mcg lidocaine 1 % PF 50 mg propofol 140 mg famotidine PF 20 mg ondansetron PF 4 mg dexamethasone 4 mg/mL 4 mg ceFAZolin (ANCEF) 2000 mg in 50 mL dextr ose (premix) 50 mL Lactated Ringer's (LR) infusion 1,700 mL * Agents Name O2 Air Sevoflurane Inspired Sevoflurane * Blood No blood administrations on file. Lines, Drains, and Airways Type Details Placement Removal Peripheral IV Placement Date: 01/17/18; Placement Time: 08; Catheter Size: 20 G; Orientation: Left; Location: Forearm; Site Prep: Chlorhexidine; Inserted by: Hayden Kearns; Insertion Attempts: 1; Patient Tolerance: Tolerated well; Removal Date: 01/17/18; Removal Time: 1200 01/17/18 0816 by Linette Kearns RN 01/17/18 1200 by Jocelin Mata, TOMMY Supraglottic Airway Placement Date: 01/17/18; Placement Time: 0954 (created via procedure documentation); Mask Ventilation: 1; Size: 4; Insertion Attempts: 1; Removal Date: 01/17/18; Removal Time: 1033 01/17/18 0954 by Crystal Mcghee CRNA 01/17/18 1033 by Crystal Mcghee CRNA RETIRED Surgical Site 01/17/18; 1007; Right; Knee; 03/14/24 (Retired LDA, Removed/Completed by [employer] with LDA Utility); 1213 (Retired LDA, Removed/Completed by [employer] with LDA Utility) 01/17/18 1007 by Mary Ann Acevedo RN 03/14/24 1213 by Discharge Provider, Automatic documented in this encounter Social History Tobacco Use Types Packs/Day Years Used Date Smoking Tobacco: Former Cigarettes 0.5 7.7 1 981 - 01/11/1988 Smokeless Tobacco: Never Comments Unknown Sex and Gender Information Value Date Recorded Sex Assigned at Not on file Legal 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 Gender Identity Not on file Sexual Orientation Not on file documented as of this encounter OR Notes * Anesthesia Postprocedure Evaluation - Karin Banks MD - 01/17/2018 12:20 PM CDT Patient: Hailee Tanner Procedure Summary Date: 01/17/18 Room / Location: [facility] / [facility] Anesthesia Start: 941 Anesthesia Stop: 1041 Procedure: RIGHT KNEE ARTHROSCOPIC PARTIAL MEDIAL MENISCECTOMY (Right Knee) Diagnosis: Acute medial meniscus tear of right knee, subsequent encounter (Acute medial meniscus tear of right knee, subsequent encounter [S83.241D]) Provider: Sanya Anand MD Responsible Provider: Karin Banks MD Anesthesia Type: general ASA Status: 2 Anesthesia Type: general Last vitals BP 123/73 Pulse 70 Temp 37 ??C (98.6 ??F) (Temporal) Resp 15 SpO2 96% Anesthesia Post Evaluation Patient location during evaluation: PACU Patient participation: complete - patient participated Level of consciousness: fully awake Pain score: 5 Pain management: adequate Airway patency: adequate Evidence of recall: no Anesthetic complications: no Cardiovascular status: hemodynamically stable and acceptable Respiratory status: acceptable and room air Hydration status: acceptable Pt is: normothermic Nausea/Vomiting status: none * Anesthesia Procedure Notes - Crystal Mcghee CRNA - 01/17/2018 10:13 AM CDTAssociated Order(s): ANESTHESIA INTUBATION Airway Patient location: OR Urgency: elective Date/time: 01/17/2018 9:54 AM Indications for airway management: anesthesia Difficult airway: no Emergent airway documentation: Risks and benefits discussed: yes Consent obtained: yes Consent given by: patient Airway prep: Preoxygenated: yes Patient position: sniffing Mask difficulty assessment: 1 - vent by mask Spontaneous ventilation during airway: absent Sedation level during airway: GA Final airway details: Final airway type: supraglottic airway Final supraglottic airway: unique SGA size: 4 Number of attempts: 1 Ventilation between attempts: none * Anesthesia Preprocedure Evaluation - Karin Banks MD - 01/17/2018 8:23 AM CDT Anesthesia Evaluation Hailee Tanner is a 62 y.o. female Procedure(s): RIGHT ARTHROSCOPY KNEE, PARTIAL MEDIAL MENISCECTOMY VS REPAIR RIGHT RIGHT Patient Active Problem List Diagnosis ??? Acute medial meniscus tear of right knee Past Medical History: Diagnosis Date ??? Acute bronchitis 10/2017 resolved with antibiotics ??? Anxiety ??? Arthritis knee--right ??? GERD (gastroesophageal reflux disease) NOT very well controlled with meds, still trying to control ??? Hiatal hernia ??? Hoarseness of voice lasted for 3 months, ENT told patient thought it was secondary to reflux ??? Hypertension well controlled with meds ??? Myocardial infarction (CMS/HCC) 2007 possibly, per patient, told per EKG. Not followed by MD--no f/u indicated per pt--this was done in an ER ??? PONV (postoperative nausea and vomiting) Past Surgical History: Procedure Laterality Date ??? SECTION x2 ??? HYSTERECTOMY 1988 OB History No data available Allergies Allergen Reactions ??? Codeine Stomach upset HOME MEDICATIONS : cholecalciferol (VITAMIN D-3) 5,000 unit capsule cyanocobalamin 2,000 mcg tablet lisinopril-hydroCHLOROthiazide (PRINZIDE,ZESTORETIC) 20-12.5 mg per tablet loratadine (CLARITIN) 10 mg tablet omeprazole (PriLOSEC) 40 mg capsule venlafaxine XR (EFFEXOR-XR) 75 mg 24 hr capsule HYDROcodone-acetaminophen (NORCO) 5-325 mg per tablet ondansetron (ZOFRAN) 4 mg tablet Current Facility-Administered Medications: ??? ceFAZolin (ANCEF) 2000 mg in 50 mL dextrose (premix), 2,000 mg, intravenous, Once ??? Lactated Ringer's (LR) infusion, 30 mL/hr, intravenous, Continuous, Last Rate: 30 mL/hr at 01/17/18817, 30 mL/hr at 01/17/18817 ??? scopolamine patch 72 hour 1 patch, 1 patch, transdermal, Once PRN ??? sodium chloride 0.9% flush 0.5-20 mL, 0.5-20 mL, intra-catheter, PRN Social History Smoking Status ??? Former Smoker ??? Packs/day: 0.50 ??? Years: 7.00 ??? Start date: 1980 ??? Quit date: 01/11/1988 Smokeless Tobacco ??? Never Used Alcohol use Not on file Comment: rare-1 drink/month Drug Use No Family History Problem Relation Age of Onset ??? No Known Problems Mother ??? No Known Problems Father PAT Physical Exam Vitals: 01/17/18 0758 01/17/18 0800 01/17/18804 BP: 132/73 Pulse: 85 65 66 Resp: 20 Temp: 36.6 ??C (97.9 ??F) SpO2: 98% 98% 97% PT: No results found for requested labs within last 720 hours. INR: No results found for requested labs within last 720 hours. APTT: No results found for requested labs within last 720 hours. Hgb A1C: No results found for requested labs within last 720 hours. CBC RBC: No results found for requested labs within last 720 hours. RDW: No results found for requested labs within last 720 hours. MCHC: No results found for requested labs within last 720 hours. MCH: No results found for requested labs within last 720 hours. MCV: No results found for requested labs within last 720 hours. Hct: No results found for requested labs within last 720 hours. Hgb: No results found for requested labs within last 720 hours. WBC: No results found for requested labs within last 720 hours. MPV: No results found for requested labs within last 720 hours. Platelets: No results found for requested labs within last 720 hours. RDW CV: No results found for requested labs within last 720 hours. RDW Sd: No results found for requested labs within last 720 hours. BMP Glucose: No results found for requested labs within last 720 hours. Calcium: No results found for requested labs within last 720 hours. Sodium: No results found for requested labs within last 720 hours. Potassium: No results found for requested labs within last 720 hours. CO2: No results found for requested labs within last 720 hours. Chloride: No results found for requested labs within last 720 hours. BUN: No results found for requested labs within last 720 hours. Creatinine: No results found for requested labs within last 720 hours. DOS Physical Exam Medical history, medications, and allergies reviewed. Attestation: I endorse the findings of the anesthesia pre-evaluation assessment dated: 01/17/2018. Airway Exam: Mallampati: II Cervical ROM: FROM Cardiovascular Exam: Rate: regular Rhythm: regular Pulmonary Exam: LCTA, bilat Anesthesia Plan ASA 2 My patient is approved for the Anesthesia Controlled Medication protocol when under care of a CUSTOMER OPERATIONS INTERN Planned anesthesia: General Informed Consent: Anesthesia plan and risks discussed with patient. Consent and Attending signature: I and/or my designee have discussed the anesthesia plan, benefits, possible alternatives, parental presence at time of induction (if indicated), and clinically relevant risks that may include dental injury, unintentional awareness, and/or other complications. The patient and/or parent/legal guardian understand, and agree to proceed. All questions answered. documented in this encounter Plan of Treatment Not on file documented as of this encounter Procedures Procedure Name Priority Date/Time Associated Diagnosis Comments [place] AN PROCEDURE PLACEHOLDER Routine 01/17/2018 10:13 AM CDT Procedure Note - Crystal Mcghee CRNA - 01/17/2018 10:13 AM CDTThis note is in progress. Airway Patient location: OR Urgency: elective Date/time: 01/17/2018 9:54 AM Indications for airway management: anesthesia Difficult airway: no Emergent airway documentation: Risks and benefits discussed: yes Consent obtained: yes Consent given by: patient Airway prep: Preoxygenated: yes Patient position: sniffing Mask difficulty assessment: 1 - vent by mask Spontaneous ventilation during airway: absent Sedation level during airway: GA Final airway details: Final airway type: supraglottic airway Final supraglottic airway: unique SGA size: 4 Number of attempts: 1 Ventilation between attempts: none [place] AN ELECTIVE SUPRAGLOTTIC AIRWAY Routine 01/17/2018 10:13 AM CDT Procedure Note - Crystal Mcghee CRNA - 01/17/2018 10:13 AM CDTThis note is in progress. Airway Patient location: OR Urgency: elective Date/time: 01/17/2018 9:54 AM Indications for airway management: anesthesia Difficult airway: no Emergent airway documentation: Risks and benefits discussed: yes Consent obtained: yes Consent given by: patient Airway prep: Preoxygenated: yes Patient position: sniffing Mask difficulty assessment: 1 - vent by mask Spontaneous ventilation during airway: absent Sedation level during airway: GA Final airway details: Final airway type: supraglottic airway Final supraglottic airway: unique SGA size: 4 Number of attempts: 1 Ventilation between attempts: none documented in this encounter Visit Diagnoses Not on filedocumented in this encounter Administered Medications Inactive Administered Medications - up to 3 most recent administrations Medication Order MAR Action Action Date Dose Rate Site ceFAZolin (ANCEF) 2000 mg in 50 mL dextrose (premix) 2,000 mg, intravenous, at 100 mL/hr, Administer over 30 Minutes, Once, On Wed01/17/18 at 1015, For 1 dose, Pre-Op, Administer within 60 minutes of incision. Duplex bag - activate before hanging. , Indications: Prophylaxis, SurgicalIndications:Prophylaxis, Surgical New Bag 01/17/2018 9:42 AM CDT dexamethasone (DECADRON) injection Administer over 1 Minutes, As needed, Starting on Wed01/17/18 at 0954, Anesthesia Intra-op Given 01/17/2018 9:54 AM CDT 4 mg famotidine (PEPCID) injection intravenous, Administer over 2 Minutes, As needed, heartburn, Starting on Wed01/17/18 at 0944, Anesthesia Intra-op Given 01/17/2018 9:44 AM CDT 20 mg fentaNYL (SUBLIMAZE) preservative free injection intravenous, As needed, Starting on Wed01/17/18 at 1004, Anesthesia Intra-op Given 01/17/2018 10:25 AM CDT 25 mcg Given 01/17/2018 10:04 AM CDT 25 mcg Given 01/17/2018 9:55 AM CDT 25 mcg lidocaine PF (XYLOCAINE) 10 mg/mL (1 %) preservative free injection As needed, Starting on Wed01/17/18 at 0952, Anesthesia Intra-op Given 01/17/2018 9:52 AM CDT 50 mg midazolam (VERSED) injection intravenous, As needed, Starting on Wed01/17/18 at 0945, Anesthesia Intra-op Given 01/17/2018 9:45 AM CDT 2 mg ondansetron (ZOFRAN) injection intravenous, As needed, nausea, vomiting, Starting on Wed01/17/18 at 0944, Anesthesia Intra-op Given 01/17/2018 9:44 AM CDT 4 mg propofol (DIPRIVAN) IV intravenous, As needed, Starting on Wed01/17/18 at 1004, Anesthesia Intra-op Given 01/17/2018 10:04 AM CDT 20 mg Given 01/17/2018 9:52 AM CDT 120 mg documented in this encounter Orders Procedures Count Last Ordered Date First Orde red Date ANESTHESIA INTUBATION 1 01/17/2018 documented in this encounter Care Teams Services Program Manager Relationship Specialty Start Date End Date Betty Alonso MD [address] [place] [address] PCP - General Family Medicine 10/07/17 04/14/22 documented as of this encounter
--- OUTSIDE RECORDS SUMMARY | 2024-04-13 08:34 | XMS_ITS | Encounter Summary ---
Author Organization [facility] Address [address] [facility] [address] [place] [address] Care Team Providers Care Dry Yard Worker Name Role Phone Bhargav Wilkes MD Primary Care Provider [phone] Encounter Details Date Type Department Care Team (Late st Contact Info) Description 04/15/2022 2:00 PM EXPANDED DUTY DENTAL ASSISTANT Lab [facility] Outpatient Lab at [address] [phone] Medicare annual wellness visit, initial Social History Tobacco Use Types Packs/Day Years [...] on file Legal Sex Female 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
--- OUTSIDE RECORDS SUMMARY | 2024-04-13 08:34 | XMS_ITS | Encounter Summary ---
Author Organization 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
--- OUTSIDE RECORDS SUMMARY | 2024-04-13 08:34 | XMS_ITS | Encounter Summary ---
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 Name Role Phone Betty Alonso MD Primary Care Provider [phone] Reason for Referral * Diagnostic Imaging (Routine) - Closed Specialty Diagnoses / Procedures Referred By Darlene hodgson Referred To Contact Diagnoses Right knee pain, unspecified chronicity Procedures XR Knee Right 3 View Richard Branch PA Phone: tel: fax: [facility] Referral ID Status Reason Start Date Expiration Date Visits Re quested Visits Authorized [id number] Closed 10/15/2017 04/26/2019 1 1 Reason for Visit * Reason Comments Pain Encounter Details Date Type Department Care Team (Latest Contact Info) Description 10/15/2017 9:15 AM CDT Office Visit [facility] Orthopaedic Surgery [address] [place] [address] [place] [address] [place] [address] Right knee pain, unspecified chronicity (Primary Dx); Primary osteoarthritis of right knee Social History Tobacco Use Types Packs/Day Years Used Date Smoking Tobacco: Never Smokeless Tobacco: Never Comments Unknown Sex and Gender Information Value Date Recorded Sex Assigned at Not on file 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 Hailee Carter Tanner 1955 Right knee pain, unspecified chronicity [M25.561] POST INJECTION HOME CARE Your physician has elected to inject your right knee today. While the pain will be initially relieved by the local anesthetic, a possibility of an injection flare exists. The cortisone injection takes approximately 48 hours to begin acting and during the time between the injection and the point that the cortisone begins to work you may have a slight worsening of your pain. In some cases it may take up to two weeks for the steroid to begin working. The following measures can be used to limit theseverity of any possible injection flare: 1. Use an ice bag on the affected area 3 times a day for 30 minutes at each session. No more than one time per an hour. 2. Consider the use of over the counter anti-inflammatory medications such as Advil, or Aleve, if your medical condition allows you to take these medications. If your physician has prescribed a prescription anti- inflammatory medication then continue taking this medication, as prescribed. 3. Do NOT take a bath, swim, or sit in a jacuzzi or hot tub for the next 48 hours. Showers are okay. 4. If you have a history of diabetes, you should check your blood glucose levels between two and three times per day for the next three days, and adjust your insulin accordingly. Occasionally, a steroid can raise your blood sugar to dangerous levels. If you can not control your glucose at home, notify your primary care physician immediately. These measures should limit any injection flare that may occur. Should these measures not adequately control the pain please contact the office. If your symptoms worsen, please reach your provider through the office at . DEDE Abernathy documented in this encounter Progress Notes * Richard Branch PA - 10/15/2017 9:15 AM CDT Images from the original note were not included. NEW PATIENT VISIT DOS: 10/15/2017 CHIEF COMPLAINT: Pain of the Right Knee HPI: Hailee Tanner is a 62 y.o. female that presents to the Orthopedic Clinic today due to Pain of the Right Knee . She has had pain in her right knee for about 1 month now. She does not recall an injury to her knee. Most the pain seems to be on the medial aspect of her knee. She has stiffness and pain after sitting for prolonged periods and also with increased walking. It is better with rest. She does not recall an injury to her knee. PAST MEDICAL HISTORY: History reviewed. No pertinent past medical history. PAST SURGICAL HISTORY: History reviewed. No pertinent surgical history. INITIAL REVIEW OF MEDICATIONS: She has a current medication list which includes the following prescription(s): lisinopril-hydrochlorothiazide, loratadine, and venlafaxine xr. DRUG ALLERGIES: She has No Known Allergies. SOCIAL HISTORY: She reports that she has never smoked. She has never used smokeless tobacco. FAMILY HISTORY: Her family history includes No Known Problems in her father and mother. REVIEW OF SYSTEMS: Review of Systems Constitutional: Negative for chills and fever. HENT: Negative for ear pain, hearing loss and nosebleeds. Eyes: Negative for visual disturbance. Respiratory: Negative for apnea, cough and shortness of breath. Cardiovascular: Negative for chest pain and leg swelling. Gastrointestinal: Negative for abdominal pain, diarrhea, nausea and vomiting. Genitourinary: Negative for difficulty urinating. Musculoskeletal: Positive for arthralgias. Skin: Negative for rash and wound. Neurological: Negative for dizziness, weakness, numbness and headaches. Psychiatric/Behavioral: The patient is not nervous/anxious and is not hyperactive. PHYSICAL EXAM: Well-appearing, no apparent distress. Skin: Warm, dry, intact. Psychiatric: Normal mood and affect. Neurologic: Alert and oriented, conversant. On examination of her right knee in the office today there is no effusion and no ecchymosis. She has full range of motion with flexion and extension. There is no anterior, posterior, varus or valgus instability of her knee. She has medial joint line tenderness and slight worsening of her knee pain with Kandi's testing medially. She has no significant lateral joint line tenderness and no tenderness over the patellar or quadriceps tendon. Neurovascular examination of her right lower extremity grossly intact. XRAYS: Three-view x-rays of her right knee show mild medial compartment space narrowing IMPRESSION: Right knee pain Mild right knee DJD PLAN: After reviewing the risks and benefits of the injection, including bleeding and infection, temporary elevation of blood sugar , thinning of bone, muscle & cartiledge, hyper/hypopigmentationat the injection site & subcutaneous fat atrophy, the patient verbally consented. The patient was placed in the supine position. The right knee was prepped with Hibiclens. 2 cc of 0.25% bupivacaine and 1 cc of 40 mg/mL of Depo-Medrol were injected into the knee via the superiolateral approach. The patient tolerated the procedure well. The area was cleaned and a sterile bandage was applied. The patient was discharged in stable condition. The patient was educated on the potential of a steroidflare. The patient was given icing instructions. Diagnosis, imaging and treatment plan was discussed with the patient today. We discussed her treatment options including option for physical therapy, oral anti-inflammatories, MRI scan to rule out a meniscus tear and also a corticosteroid injection. Patient requested to proceed with a corticosteroid injection as above. If she is not improved in 10-14 days she will follow up for recheck. All questions were answered and patient was agreeable with the plan. Orders Placed This Encounter Procedures ??? XR Knee Right 3 View There are no Patient Instructions on file for this visit. Richard Branch PA-C in collabortation with Dr. Nico Ramirez [facility] Orthoped[facility] Dictating using MModal Naturally Speaking Software. Collection Analyst variances may occur. documented in this encounter Plan of Treatment Not on file documented as of this encounter Results * XR Knee Right 3 View (10/15/2017 9:23 AM CDT) Anatomical Region Laterality Modality Lower Extremities, Knee Right Computed Radiography 10/15/2017 10:3 6 AM CDT Impressions 10/15/2017 11:20 AM CDT 1. ??Normal radiographs of the right knee Electronically signed by: Kathie Storey M.D. Narrative 10/15/2017 11:20 AM CDT EXAMINATION: Right knee 3 views HISTORY: Right knee pain FINDINGS: 3 views of the right knee are performed without comparison. Normal alignment. ??Normal joint spaces. ??No fracture. ??No knee joint effusion. Procedure Note Kathie Storey MD - 10/15/2017 EXAMINATION: Right knee 3 views HISTORY: Right knee pain FINDINGS: 3 views of the right knee are performed without comparison. Normal alignment. Normal joint spaces. No fracture. No knee joint effusion. IMPRESSION: 1. Normal radiographs of the right knee Electronically signed by: Kathie Storey M.D. Richard AGUAYO IMG XR PROCEDURES Final Resu lt documented in this encounter Visit Diagnoses Diagnosis Right knee pain, unspecified chronicity- Primary Primary osteoarthritis of right knee Right knee pain, unspecified chronicity documented in this encounter Historical Medications * This list may reflect changes made after this encounter. omeprazole (PriLOSEC) 40 mg capsule Take 40 mg by mouth daily. 04/15/2022 lisinopril (PRINIVIL,ZESTRIL ) 20 mg tablet Take 20 mg by mouth daily. 01/10/2018 cyanocobalamin 2,000 mcg tablet Take 2,000 mcg by mouth daily. 04/15/2022 cholecalciferol (VITAMIN D-3) 5,000 unit capsule Take 5,000 Units by mouth daily. 04/15/2022 venlafaxine XR (EFFEXOR-XR) 75 mg 24 hr capsule TK ONE C PO ONCE A DAY 3 07/25/2017 04/15/2022 loratadine (CLARITIN) 10 mg tablet TK 1 T PO QD 1 07/25/2017 04/15/2022 lisinopril-hydroC HLOROthiazide (PRINZIDE,ZESTORE TIC) 20-12.5 mg per tabletIndications :hypertension TK 1 T PO ONCE A DAY 6 09/30/2017 04/15/2022 added in this encounter Care Teams Butting Saw Operator Relationship Specialty Start Date End Date Betty Alonso MD [address] [place] [address] PCP - General Family Medicine 10/07/17 04/14/22 documented as of this encounter
--- OUTSIDE RECORDS SUMMARY | 2024-04-13 08:34 | XMS_ITS | Encounter Summary ---
Author Organization [facility] Address [address] [place] [address] Phone Care Team Providers Care Kaiawhina Kohanga Reo Name Role Phone Betty Alonso MD Primary Care Provider [phone] Encounter Details Date Type Department Care Team (Late st Contact Info) Description 01/05/2018 Telephone [facility] Orthopaedic Surgery [address] [place] [address] [place] [address] [place] [address] Social History Tobacco Use Types Packs/Day Years Used Date Smoking Tobacco: Never Smokeless Tobacco: Never Comments Unknown Sex and Gender Information Value Date Recorded Sex Assigned at Not on file 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 LM at [phone] requesting a call back. * Telephone Encounter - Sanya Anand MD - 01/05/2018 3:29 PM CDT Her MRI shows a complex posterior horn medial meniscus tear. She would like to proceed with surgery. She understands the risks and benefits of surgery. documented in this encounter Plan of Treatment Not on file documented as of this encounter Visit Diagnoses Not on filedocumented in this encounter Care Teams Kaiawhina Kohanga Reo Relationship Specialty Start Date End Date Betty Alonso MD [address] [place] [address] PCP - General Family Medicine 10/07/17 04/14/22 documented as of this encounter
--- OUTSIDE RECORDS SUMMARY | 2024-04-13 08:34 | XMS_ITS | Encounter Summary ---
Author Organization [facility] Address [address] [facility] [address] [place] [address] Care Team Providers Care Retail Management Trainee Name Role Phone Bhargav Wilkes MD Primary Care Provider [phone] Be Rangel DO Unavailable [phone] Reason for Visit * Reason Comments Follow-up Pt is here for a alta ck up. 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 Gender Identity Not on file Sexual Orientation Not on file documented as of this encounter Last Filed Vital Signs Vital Sign Reading Time Taken Comments Blood Pressure 122/74 07/01/2022 1:03 PM CDT Pulse 78 07/01/2022 1:03 PM CDT Temperature 36.8 ??C (98.3 ??F) 07/01/2022 1:03 PM CD T Respiratory Rate - - Oxygen Saturation 98% 07/01/2022 1:03 PM CDT Inhaled Oxygen Concentration - - Weight - - Height 162.6 cm (5' 4 ) 07/01/2022 1:03 PM CDT Body Mass Index - - documented in this encounter Patient Instructions * Patient Instructions* Bhargav Wilkes MD - 07/01/2022 12:45 PM CDT Follow recommended dosages on bottles/packages Keep zinc under 25 mcg daily Aim for 5319-7540 mcg dailyl on vitmain B12 Aim for 800-1000 international units intake on vitamin D 1000 mg daily for calcium Thanks for coming in today! My medical assistants and I are thankful you have trusted us with your care, and hope that you received EXCELLENT care today! Please do not hesitate to call if you have any questions or concerns at [phone]. You may receive a phone call, text, MYCHART message, or e-mail asking about your care today. We would love to hear your feedback on how EXCELLENT your care wastoday! Wishing you better health, always. Dr. Wilkes documented in this encounter Progress Notes * Bhargav Wilkes MD - 07/01/2022 12:45 PM CDT Images from the original note were not included. Subjective/Objective Patient ID: Hailee Tanner is a 67 y.o. female. Chief Complaint Follow-up (Pt is here for a check up. ) There has been improvement in her latest MRI. She was started on Lyrica last week from gabapentin Trazodone has been somewhat helpful, but some nights not so much Hypertension This is a chronic problem. The problem is controlled. Pertinent negatives include no anxiety, blurred vision, chest pain, headaches, malaise/fatigue, neck pain, orthopnea, palpitations, peripheral edema, PND, shortness of breath or sweats. Risk factors for coronary artery disease include obesity, sedentary lifestyle and post-menopausal state. Past treatments include lifestyle changes. Compliance problems include exercise and diet. GERD She reports no chest pain. Current Outpatient Medications: ascorbic acid (VITAMIN C) 500 mg tablet,chewable, , Disp: , Rfl: baclofen (LIORESAL) 10 mg tablet, TAKE 2 TABLETS BY MOUTH 4 TIMES DAILY, Disp: , Rfl: calcium carbonate-vitamin D3 1,250 mg (500 mg elemental)-400 unit chewable tablet, Take 1 tablet bymouth daily, Disp: , Rfl: cholecalciferol (VITAMIN D-3) 1,000 unit capsule, Take 1,000 Units by mouth daily, Disp: , Rfl: cranberry fruit 400 mg tablet, Take 1 tablet by mouth daily, Disp: , Rfl: cyanocobalamin (Vitamin B-12) 100 mcg tablet, Take 100 mcg by mouth daily, Disp: , Rfl: diazePAM (VALIUM) 5 mg tablet, Take 2.5 mg by mouth nightly , Disp: , Rfl: fluconazole (DIFLUCAN) 150 mg tablet, Take 1 tablet (150 mg total) by mouth as directed Take one tab now. Repeat in 7 days if symptoms persist., Disp: 2 tablet, Rfl: 0 folic acid (FOLVITE) 800 mcg tablet, Take 400 mcg by mouth daily, Disp: , Rfl: magnesium oxide (MAG-OX) 250 mg (150.8 mg elemental) tablet, 250 mg daily, Disp: , Rfl: pantoprazole DR (PROTONIX) 40 mg EC tablet, Take 40 mg by mouth administration dean before breakfast, Disp: , Rfl: polyethylene glycol (MIRALAX) 17 gram/dose powder, , Disp: , Rfl: potassium &magnesium aspartate (MAGNESIUM, POTASSIUM ASPARTATE ORAL), Take by mouth, Disp: , Rfl: traZODone (DESYREL) 50 mg tablet, , Disp: , Rfl: ZINC ORAL, Take by mouth, Disp: , Rfl: pregabalin (Lyrica) 75 mg capsule, 2 (two) times a day, Disp: , Rfl: Review of Systems Constitutional: Negative for malaise/fatigue. Eyes: Negative for blurred vision. Respiratory: Negative for shortness of breath. Cardiovascular: Negative for chest pain, palpitations, orthopnea and PND. Musculoskeletal: Negative for neck pain. Neurological: Negative for headaches. BP 122/74 (BP Location: Right arm, Patient Position: Sitting) Pulse 78 Temp 36.8 ??C (98.3 ??F)(Oral) Ht 162.6 cm (5' 4 ) SpO2 98% BMI 32.61 kg/m?? Physical Exam Vitals reviewed. HENT: Head: Normocephalic and atraumatic. Cardiovascular: Rate and Rhythm: Normal rate and regular rhythm. Pulmonary: Breath sounds: No wheezing, rhonchi or rales. Neurological: Mental Status: She is alert. Gait: Gait abnormal. No visits with results within 1 Month(s) from this visit. Latest known visit with results is: Hospital Outpatient Visit on 04/15/2022 Component Date Value Ref Range Status WBC 04/15/2022 4.5 3.8 - 9.9 K/cumm Final Hgb 04/15/2022 13.2 11.9 - 15.5 g/dL Final Hct 04/15/2022 40.8 35.6 - 45.5 % Final Plt 04/15/2022 174 150 - 400 K/cumm Final MPV 04/15/2022 10.4 9.1 - 12.3 fL Final RBC 04/15/2022 4.43 3.90 - 5.20 M/cumm Final MCV 04/15/2022 92.1 81.3 - 96.4 fL Final MCH 04/15/2022 29.8 27.1 - 33.3 pg Final MCHC 04/15/2022 32.4 32.3 - 35.7 g/dL Final RDW CV 04/15/2022 13.8 11.1 - 14.9 % Final RDW SD 04/15/2022 47.2 35.7 - 48.1 fL Final NRBC abs 04/15/2022 0.00 0.00 - 0.01 K/cumm Final Hep C Ab 04/15/2022 Nonreactive Nonreactive Final Comment: Interpretive Data Nonreactive: Antibodies to HCV not detected. Does NOT exclude the possibility of recent exposure toHCV. Equivocal: Equivocal for HCV antibodies. Supplemental molecular testing will be automatically performed to determine infection status in accordance with current CDC screening recommendations. Reactive: Positive for HCV antibodies. This may represent current or past HCV infection. Supplemental molecular testing will be automatically performed to determine current infection status in accordance with current CDC screening recommendations. Interpretive data was last revised on 2019. Color, ur 04/15/2022 Yellow Yellow Final Clarity, ur 04/15/2022 Clear Clear Final Specific gravity, ur 04/15/2022 1.024 1.003 - 1.030 Final pH, urine 04/15/2022 5.5 Final Protein, ur ql 04/15/2022 Negative Negative Final Glucose, ur ql 04/15/2022 Negative Negative Final Ketones, ur 04/15/2022 Negative Negative Final Bilirubin, ur 04/15/2022 Negative Negative Final Blood, ur 04/15/2022 Negative Negative Final Urobilinogen, ur 04/15/2022 0.2 <2.0 mg/dL Final Nitrite, ur 04/15/2022 Negative Negative Final Leukocyte esterase, ur 04/15/2022 1+ (A) Negative Final UA reflex comment 04/15/2022 Reflex to microscopic UA will be performed. Final Cholesterol 04/15/2022 184 30 - 199 mg/dL Final Comment: Interpretive Data Ages < or = 19 years Acceptable: <170 mg/dL Borderline high: 170-199 mg/dL High: >or= 200 mg/dL Ages > or = 20 years Desirable: <200 mg/dL Borderline high: 200-239 mg/dL High: >or= 240 mg/dL Literature References: 1. Expert Panel on Integrated Guidelines for Cardiovascular Health and Risk Reduction in Children and Adolescents. Pediatrics 2011;128:S213 2. NCEP Expert Panel. Circulation 2004;110:227 Current Interpretive Data was last revised on 2017. Triglycerides 04/15/2022 193 (H) <=149 mg/dL Final Comment: Interpretive Data Ages < or = 9 years Acceptable: <75 mg/dL Borderline high: 75-99 mg/dL High: >or= 100 mg/dL Ages 10 to 20 years Acceptable: <90 mg/dL Borderline high: 90-129 mg/dL High: >or= 130 mg/dL Ages > or = 20 years Desirable: <150 mg/dL Borderline high: 150-199 mg/dL High: 200-499 mg/dL Very high: >or= 499 mg/dL Literature References: 1. Expert Panel on Integrated Guidelines for Cardiovascular Health and Risk Reduction in Children and Adolescents. Pediatrics 2011;128:S213 2. NCEP Expert Panel. Circulation 2004;110:227 Current Interpretive Data was last revised on 2017. HDL 04/15/2022 51 >=40 mg/dL Final Comment: Interpretive Data Ages < or = 19 years Acceptable: >45 mg/dL Borderline low: 40-45 mg/dL Low: <40 mg/dL Ages > or = 20 years Desirable: >or= 60 mg/dL Low: <40 mg/dL Literature References: 1. Expert Panel on Integrated Guidelines for Cardiovascular Health and Risk Reduction in Children and Adolescents. Pediatrics 2011;128:S213 2. NCEP Expert Panel. Circulation 2004;110:227 Current Interpretive Data was last revised on 2017. LDL, calculated 04/15/2022 94 <=129 mg/dL Final Comment: Interpretive Data Ages < or = 19 years Acceptable: <110 mg/dL Borderline high: 110-129 mg/dL High: >or= 130 mg/dL Ages > or = 20 years Optimal: <100 mg/dL Near optimal: 100-129 mg/dL Borderline high: 130-159 mg/dL High: >160 mg/dL Literature References: 1. Expert Panel on Integrated Guidelines for Cardiovascular Health and Risk Reduction in Children and Adolescents. Pediatrics 2011;128:S213 2. NCEP Expert Panel. Circulation 2004;110:227 Current Interpretive Data was last revised on 2017. Non-HDL Cholesterol 04/15/2022 133 mg/dL Final Comment: Interpretive Data Ages < or = 19 years Acceptable: <120 mg/dL Borderline high: 120-144 mg/dL High: >145 mg/dL Ages > or = 20 years When triglycerides are >200 mg/dL, Non-HDL cholesterol is a secondary target of therapy with treatment goals that are 30 mg/dL greater than the LDL cholesterol target. Literature References: 1. Expert Panel on Integrated Guidelines for Cardiovascular Health and Risk Reduction in Children and Adolescents. Pediatrics 2011;128:S213 2. NCEP Expert Panel. Circulation 2004;110:227 Current Interpretive Data was last revised on 2017. Chol/HDL ratio 04/15/2022 4 Final Sodium 04/15/2022 141 135 - 145 mmol/L Final Potassium, pl 04/15/2022 4.4 3.3 - 4.9 mmol/L Final Chloride 04/15/2022 105 97 - 110 mmol/L Final CO2 04/15/2022 26 22 - 32 mmol/L Final Anion gap 04/15/2022 10 2 - 15 mmol/L Final BUN 04/15/2022 28 (H) 8 - 25 mg/dL Final Creatinine 04/15/2022 0.99 0.60 - 1.10 mg/dL Final Glucose 04/15/2022 96 70 - 199 mg/dL Final Comment: Interpretive Data Fasting glucose >/= 126 mg/dl is diagnostic for diabetes. Fasting is defined as no caloric intake [...] interpretive data was last revised 2017. Calcium 04/15/2022 9.5 8.5 - 10.3 mg/dL Final Bilirubin, total 04/15/2022 0.5 0.1 - 1.2 mg/dL Final Protein, pl 04/15/2022 7.0 6.5 - 8.5 g/dL Final Albumin 04/15/2022 4.4 3.5 - 5.0 g/dL Final Alk phos 04/15/2022 101 40 - 130 Units/L Final ALT 04/15/2022 12 7 - 45 Units/L Final AST 04/15/2022 20 10 - 45 Units/L Final Neutrophil abs 04/15/2022 2.4 1.7 - 6.5 K/cumm Final Imm gran abs 04/15/2022 0.0 0.0 - 0.1 K/cumm Final Lymphocyte abs 04/15/2022 1.7 0.8 - 3.3 K/cumm Final Monocyte abs 04/15/2022 0.4 0.2 - 0.8 K/cumm Final Eosinophil abs 04/15/2022 0.0 0.0 - 0.5 K/cumm Final Basophil abs 04/15/2022 0.0 0.0 - 0.1 K/cumm Final Neutrophil pct 04/15/2022 53.3 % Final Comment: Interpretive Data Percent cell count reference ranges are not reported, since discordance with absolute values may lead to misinterpretation of CBC data. Current Interpretive Data was last revised on 2017. Imm gran pct 04/15/2022 0.2 % Final Comment: Interpretive Data Percent cell count reference ranges are not reported, since discordance with absolute values may lead to misinterpretation of CBC data. Current Interpretive Data was last revised on 2017. Lymphocyte pct 04/15/2022 38.3 % Final Comment: Interpretive Data Percent cell count reference ranges are not reported, since discordance with absolute values may lead to misinterpretation of CBC data. Current Interpretive Data was last revised on 2017. Monocyte pct 04/15/2022 8.0 % Final Comment: Interpretive Data Percent cell count reference ranges are not reported, since discordance with absolute values may lead to misinterpretation of CBC data. Current Interpretive Data was last revised on 2017. Eosinophil pct 04/15/2022 0.2 % Final Comment: Interpretive Data Percent cell count reference ranges are not reported, since discordance with absolute values may lead to misinterpretation of CBC data. Current Interpretive Data was last revised on 2017. Basophil pct 04/15/2022 0.0 % Final Comment: Interpretive Data Percent cell count reference ranges are not reported, since discordance with absolute values may lead to misinterpretation of CBC data. Current Interpretive Data was last revised on 2017. eGFR 04/15/2022 62 mL/min/1.73 m2 Final Comment: Interpretive Data Reference Interval Normal >/= 90 mL/min/1.73m2 Mildly decreased* 60 - 89 mL/min/1.73m2 Mildly to moderately decreased 45 - 59 mL/min/1.73m2 Moderately to severely decreased 30 - 44 mL/min/1.73m2 Severely decreased 15 - 29 mL/min/1.73m2 Kidney Failure < 15 mL/min/1.73m2 *Relative to young adult level Estimated glomerular [...] Current interpretive data was last reviewed 2021. WBC, ur 04/15/2022 21-50 (A) 0 - 5 /HPF Final RBC, ur 04/15/2022 3-5 (A) 0 - 2 /HPF Final Epithelial cells, squamous, ur 04/15/2022 1-5 0 - 5 /HPF Final Bacteria, ur 04/15/2022 Trace (A) Final Mucous, ur 04/15/2022 Present (A) Final Assessment/Plan Diagnoses and all orders for this visit: Primary hypertension (Primary) Comments: BP looks good today no change Orders: - CBC with auto differential; Future - Comprehensive metabolic panel; Future - Lipid panel; Future Gastroesophageal reflux disease without esophagitis Comments: continuing Protonix, but isn't needing it every day Orders: - CBC with auto differential; Future Brown-Sequard syndrome (CMS/HCC) (HCC) Comments: improving continues with PT three times a week continues follow up with neurosurgeon Screen for colon cancer - Stool DNA - Cologuard; Future Bhargav Wilkes MD This office note has been partially dictated using [employer] software, and as a result portions of the record may have been created with this software. Occasional wrong-word or '[id number]' substitutions may have occurred due to the inherent limitations of voice recognition software. Read the chartcarefully and recognize, using context, where substitutions have occurred. documented in this encounter Miscellaneous Notes * Addendum Note - Stanislaw Rivera, CALVIN - 07/01/2022 12:45 PM CDTAddended by: STANISLAW RIVERA on: 12/30/2022 02:08 PM Modules accepted: Orders documented in this encounter Plan of Treatment Not on file documented as of this encounter Procedures Procedure Name Priority Date/Time Associated Diagnosis Comments STOOL DNA ? COLOGUARD Routine 07/09/2022 2:00 PM CDT Screen for colon cancer documented in this encounter Results * (ABNORMAL) CBC with auto differential (12/30/2022 1:42 PM CDT) WBC 5.4 3.8 - 9.9 K/cumm CERNER [...] LAB BLOOD ORDERABLES Final Result [facility] [address] Department [place] [address] * Comprehensive metabolic panel (12/30/2022 [...] classification and Diagnosis of Diabetes Diabetes Care 2021; 46: S19-S40. Current interpretive data was last [...] Wilkes MD LAB BLOOD ORDERABLES Final Result [facility] [address] Department [place] [address] * (ABNORMAL) Lipid panel (12/30/2022 1:42 PM CDT) Cholesterol 183 30 - 199 mg/dL [facility] Comment: [...] on 2017. LDL, calculated 101 <=129 mg/dL [facility] CH Comment: Interpretive Data [...] on 2017. Non-HDL Cholesterol 136 mg/dL CERNER Comment: Interpretive Data Ages < or = [...] Final Result Performing Organization Address City/State/ZIP Co ut Phone Number [facility] [phone] Department [place] [address] * Stool DNA - Cologuard (07/09/2022 2:00 PM CDT) Stool DNA - Cologuard Negative Negative [facility] (CLIA #:[id number]) Comment: NEGATIVE TEST RESULT. A negative Cologuard [...] cancer. ??Following a negative Cologuard result, the [place] Cancer Society and U.S. Multi-Society Task Force screening guidelines recommend a Cologuard re-screening interval of 3 years. References: [place] [employer] Society Guideline for Colorectal Cancer Screening: https://www.cancer.org/cancer/batii-covysa-jgntex/xxabxoaiv-wyfcspnnk-jmfilkx/ac s-rec ommendations.html.; Carlo DK, Channing CR, Mirtha DawsonK, Colorectal Cancer Screening: Recommendations for Physicians and Patients from the U.S. Multi-Society Task Force on Colorectal Cancer Screening , Am J Gastroenterology 2017; 112:2532-3378. TEST DESCRIPTION: Composite algorithmic analysis of stool [...] Vargas et al, N Engl J Med 2014;370(14):1493-2328.) Cologuard may produce a false negative or false positive result (no colorectal cancer or precancerous polyp present at colonoscopy follow up). A negative Cologuard test result does not guarantee the absence of CRC or advanced adenoma (pre-cancer). The current Cologuard screening interval is every 3 years. ([place] [employer] and U.S. Multi-Society Task Force). Cologuard performance data in a 10,000 patient pivotal study using colonoscopy as the reference method can be accessed at the following location: www.DailyObjects.com.IZI-collecte/results. Additional description of the Cologuard test process, warnings and precautions can be found at www.FFWDogAndard.com. Stool 07/09/2022 2:00 PM CDT 07/10/2022 3:33 PM CDT us Bhargav Wilkes MD LAB BODY FLUIDS AND STOOLS ORDERABLES Final Result [facility] (CLIA #:[id number]) [place] [address] 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 Repeat in 7 days if symptoms persist. Therapy completed 04/17/2022 07/01/2022 documented as of this encounter Historical Medications * This list may reflect changes made after this encounter. pregabalin (Lyrica) 75 mg capsule 2 (two) times a day added in this encounter Care Teams Retail Management Trainee Relationship Specialty Start Date End Date Bhargav Wilkes MD [address] [place] [address] PCP - General Family Medicine 04/15/22 [place] [address] [place] [address] Referring Physician Physical Medicine and Rehabilitation 12/30/22 documented as of this encounter
--- OUTSIDE RECORDS SUMMARY | 2024-04-13 08:34 | XMS_ITS | Encounter Summary ---
Author Organization [facility] Address [address] [place] [address] Care Team Providers Care Relay Worker Name Role Phone Betty Alonso MD Primary Care Provider [phone] Encounter Details Date Type Department Care Team (Late st Contact Info) Description 01/11/2018 Orders Only [facility] [address] [place] [id number] Zaina Roque NP [address] [place], [place] [id number] Social History Tobacco Use Types Packs/Day Years Used Date Smoking Tobacco: Former Cigarettes 0.5 7.7 1 981 - 01/11/1988 Smokeless Tobacco: Never Comments Unknown Sex and Gender Information Value Date Recorded Sex Assigned at Not on file 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 patch behind left ear the evening before surgery 1 patch 01/11/2018 8 documented in this encounter Plan of Treatment Not on file documented as of this encounter Visit Diagnoses Not on filedocumented in this encounter Care Teams Relay Worker Relationship Specialty Start Date End Date Betty Alonso MD [address] [place] [address] PCP - General Family Medicine 10/07/17 04/14/22 documented as of this encounter
--- OUTSIDE RECORDS SUMMARY | 2024-04-13 08:34 | XMS_ITS | Encounter Summary ---
Author Organization [facility] Healthcare Address [address] [place] [address] Care Team Providers Care Lifter Name Role Phone Bhargav Wilkes MD Primary Care Provider [phone] Reason for Referral * MRI/CAT/PET Scan (Routine) - Closed Specialty Diagnoses / Procedures Referred By Contac t Referred To Contact Radiology Diagnoses Cervicalgia Cervical spondylosis with radiculopathy Numbness Procedures MRI Cervical Spine WO Contrast Eloise Syed PA [address] [place] [address] Phone: tel: fax: [address] [phone] Referral ID Status Reason Start Date Expiration Date Visits Re quested Visits Authorized [id number] Closed 05/26/2022 06/25/2023 1 1 GRINDER Reason for Visit * MRI/CAT/PET Scan (Routine) - Closed Specialty Diagnoses / Procedures Referred By Contac t Referred To Contact Radiology Diagnoses Cervicalgia Cervical spondylosis with radiculopathy Numbness Procedures MRI Cervical Spine WO Contrast Eloise Syed PA [address] [place] [address] Phone: tel: fax: [address] [phone] Referral ID Status Reason Start Date Expiration Date Visits Re quested Visits Authorized [id number] Closed 05/26/2022 06/25/2023 1 1 Encounter Details Date Type Department Care Team (Latest Contact Info) Description 06/10/2022 6:20 PM DISK GRINDER - 06/10/2022 11:59 PM DISK GRINDER Hospital Encounter [facility] [address] [place] [address] Cervicalgia; Cervical spondylosis with radiculopathy; Numbness Discharge Disposition: Discharge to home or self [...] on file Legal Sex Female 1:00 AM DISK GRINDER Gender Identity Not on file Sexual Orientation [...] mg total) by mouth nightly 12/24/2021 4 fluconazole (DIFLUCAN) 150 mg tablet Take 1 tablet (150 mg total) by mouth as directed Take one tab now. Repeat in 7 days if symptoms persist. 2 tablet 04/17/2022 3 gabapentin (NEURONTIN) 300 mg capsule TAKE 1 CAPSULE(300 MG) BY MOUTH EVERY 8 HOURS 03/13/2022 3 magnesium oxide (MAG-OX) 250 mg (150.8 mg elemental) tabletIndication s:hypomagnesemia 1 tablet (250 mg total) daily [address] (PROTONIX) 40 mg EC tablet Take 1 tablet (40 mg total) by mouth crystal evaluator before breakfast 04/17/2021 4 potassium &magnesium aspartate [...] Name Priority Date/Time Associated Diagnosis Comments MRI CERVICAL SPINE WO CONTRAST Schedule Routine, Read Routine (OP Routine) 06/10/2022 7:37 PM DISK GRINDER Cervicalgia Cervical spondylosis with radiculopathy Numbness documented in this encounter Results * MRI Cervical Spine WO Contrast (06/10/2022 7:37 PM DISK GRINDER) Anatomical Region Laterality Modality Spine N/A Magnetic Resonan ce 06/11/2022 8:02 AM DISK GRINDER Narrative 06/11/2022 9:42 AM DISK GRINDER EXAM DESCRIPTION: ?? MRI CERVICAL SPINE WO CONTRAST; MRI LUMBAR SPINE WO CONTRAST; MRI THORACIC SPINE WO CONTRAST REASON FOR STUDY: Chronic neck pain status post unspecified surgery 2020. ?? Bilateral leg pain and numbness of unspecified duration without provided thoracic or lumbar spine complaints. ??No provided history of trauma. ??No provided history of thoracic or lumbar spine surgeries and/or procedures. TECHNIQUE: Sagittal and axial imaging of the lumbar spine includes T1, T2, STIR and gradient echo sequences. ?? Images saved to PACS. ?? Patient motion artifact variably spanning multiple sequences compromises evaluation of the cervical spine overall. COMPARISON: ?? No prior imaging of the cervical or thoracic spine available at time of interpretation; MRI lumbar spine with contrast 05/15/2013 (report without images). FINDINGS: CERVICAL SPINE: CERVICAL ALIGNMENT: ?? Normal. CERVICAL VERTEBRAE: ?? No MR evidence of acute-subacute fracture. ??Vertebral body heights maintained. ??Spondylosis. ??Scattered hemangiomas about the visualized osseous architecture, most prominent T1 vertebral body. CERVICAL DISCS: ?? Of the of the non fused intervertebral disc levels, multilevel variable intervertebral disc desiccation and loss of intervertebral disc height about the visualized cervicothoracic spine. CERVICAL HARDWARE: ?? ACDF C4-C6. CERVICAL CORD: ?? Normal in size and signal intensity. BASE OF BRAIN: ?? No significant finding. INDIVIDUAL DISC LEVELS: C1-C2: ?? No spinal canal stenosis. C2-C3: ?? No diffuse disc bulge or focal herniation. ??Bilateral hypertrophic facet arthropathy. ??No spinal canal stenosis. ??Mild right neural foraminal stenosis. C3-C4: ?? Mild posterior disc osteophyte complex with right subarticular-foraminal, maximal right subarticular-foraminal junctional, disc protrusion indenting the right eccentric ventral thecal sac. ??Bilateral hypertrophic facet arthropathy. ??Bilateral uncovertebral joint disease. ?? Moderate right spinal canal stenosis. ??Right greater than left neural foraminal stenosis. C4-C5: ?? Fused at this level with posterior disc osteophyte complex eccentric to the right indenting the right eccentric ventral thecal sac. ??Bilateral hypertrophic facet arthropathy. ??Mild right eccentric spinal canal stenosis. ?? No high-grade neural foraminal stenosis. C5-C6: ?? Fused at this level with posterior disc osteophyte complex with left subarticular disc protrusion indenting the left eccentric ventral spinal cord. Bilateral facet arthropathy. ??Moderate severe left eccentric spinal canal stenosis. ??Left neural foraminal stenosis. C6-C7: ?? Posterior disc osteophyte complex indenting the ventral thecal sac. ?? Bilateral facet arthropathy. ??No spinal canal stenosis. ??No high-grade neural foraminal stenosis. C7-T1: ?? No diffuse disc bulge or focal herniation. ??Bilateral facet arthropathy. ??No spinal canal stenosis. ??No significant neural foraminal stenosis. CERVICAL OTHER: ?? No other significant finding. THORACIC SPINE: THORACIC ALIGNMENT: ?? Normal. THORACIC VERTEBRAE: ?? No MR evidence of acute-subacute fracture. ??Multilevel variable minimal to mild anterior degenerative wedging of the thoracic spine. ?? Spondylosis. ??Scattered hemangiomas about the osseous architecture. THORACIC DISCS: ?? Multilevel variable vacuum disc phenomenon, intervertebral disc desiccation, and loss of intervertebral disc height. THORACIC HARDWARE: ?? None in the thoracic spine. THORACIC CORD: ?? Normal in size with conus medullaris termination at L1, noting a tiny nonexpansile focus of T2/STIR hyperintensity at the level of below-described T2-3 compressive disc disease favoring cervical myelomalacia and/or cord edema. ?? THORACIC DISCS T1-T12: ?? T2-3: Mild annular disc bulge with large central disc protrusion with 7 mm superior migration indents the ventral spinal cord. ??Bilateral facet arthropathy. ??Moderate severe spinal canal stenosis. ??Mild bilateral neural foraminal stenosis. T3-4: Annular disc bulge indents the ventral thecal sac. ??Bilateral facet arthropathy. ??Mild spinal canal stenosis. ??Mild bilateral neural foraminal stenosis. T4-5: Annular disc bulge indents the ventral thecal sac. ??Bilateral facet arthropathy. ??Mild spinal canal stenosis. ??Mild bilateral neural foraminal stenosis. T5-6: Annular disc bulge with central-left subarticular disc protrusion with components of slight superior and inferior migration indents the left eccentric ventral thecal sac. ??Bilateral facet arthropathy. ??Moderate left eccentric spinal canal stenosis. ??No significant neural foraminal stenosis. T6-7: Annular disc bulge with left subarticular-foraminal disc protrusion indents the left eccentric ventral thecal sac. ??Bilateral facet arthropathy. ?? Moderate left eccentric spinal canal stenosis. ??Mild right neural foraminal stenosis. T7-8: Annular disc bulge with left eccentric central-left foraminal, maximal left subarticular, disc protrusion indents the left eccentric ventral thecal sac. ??Bilateral facet arthropathy. ??Moderate-severe left eccentric spinal canal stenosis. ??No significant neural foraminal stenosis T8-9: Annular disc bulge indents the ventral thecal sac. ??Bilateral facet arthropathy. ??No spinal canal stenosis. ??Mild left neural foraminal stenosis. ?? T9-10: Annular disc bulge indents the ventral thecal sac. ??Bilateral facet arthropathy. ??Minimal spinal canal stenosis. ??No significant neural foraminal stenosis. T10-11: Annular disc bulge indents the ventral thecal sac. ??Bilateral facet arthropathy. ??No spinal canal stenosis. ??No significant neural foraminal stenosis. THORACIC OTHER: ?? No other significant finding. LUMBAR SPINE: SEGMENTATION: For the purposes of this study, the lowest fully formed intervertebral disc level is labeled L5-S1. LUMBAR ALIGNMENT: ?? Mild levoscoliosis of the lumbar spine centered at approximately L2-3. LUMBAR VERTEBRAE: ?? No MR evidence of acute-subacute fracture. ??Vertebral body heights maintained. ??Spondylosis, to include robust mixed Modic type, Modic type 1 predominant, endplate degenerative changes at left eccentric L1-2. ?? Scattered hemangiomas and patchy fatty marrow replacement about the osseous architecture. LUMBAR DISCS: ?? Multilevel variable intervertebral disc desiccation and loss of intervertebral disc height about the lower thoracic through lumbar spine, maximal at L1-2. LUMBAR HARDWARE: ?? None in the lumbar spine. LUMBAR CORD/CAUDA: ?? Normal in size and signal intensity with conus medullaris termination at L1. INDIVIDUAL DISC LEVELS: T12-L1: No diffuse disc bulge or focal herniation. ??Bilateral facet arthropathy. ??No spinal canal stenosis. ??No neural foraminal stenosis. L1-2: ?? Annular disc bulge. ??Bilateral hypertrophic facet arthropathy. ??Mild ligamentum flavum thickening. ??No spinal canal stenosis. ??No significant neural foraminal stenosis. L2-3: ?? Annular disc bulge. ??Bilateral facet arthropathy, noting slight fluid in the left facet joint suggestive of facet synovitis. ??Mild spinal canal stenosis. ??No significant neural foraminal stenosis. L3-4: ?? No diffuse disc bulge or focal herniation. ??Bilateral hypertrophic facet arthropathy. ??Ligamentum flavum thickening. ??No spinal canal stenosis. ?? Mild right neural foraminal stenosis, noting combination of posterior cortical margin/disc and arthropathic facet contact with exiting right L3 nerve root. L4-5: ?? Minimal annular disc bulge. ??Bilateral hypertrophic facet arthropathy. Ligamentum flavum thickening. ??Moderate spinal canal stenosis. ??No significant neural foraminal stenosis. L5-S1: ?? No diffuse disc bulge or focal herniation. ??Bilateral hypertrophic facet arthropathy. ??Slight compromise of the right lateral recess. ??No spinal canal stenosis. ??No neural foraminal stenosis. LUMBAR OTHER: ?? No other significant finding. SACRUM: ?? Visualized upper sacrum intact. SOFT TISSUES: ?? No gross evidence of acute abnormality, noting patient motion artifact. IMPRESSION: ?? 1. ?? ACDF C4-C6. 2. ?? Spondylosis and degenerative disc disease of the cervical spine as detailed level by level above. 3. ?? Spondylosis and degenerative disc disease of the thoracic spine as detailed level by level above. 4. ?? Tiny nonexpansile focus of cord signal abnormality at the level of above-described T2-3 compressive disc disease favors cervical myelomalacia and/or cord edema. 5. ?? Constellation of scoliosis, spondylosis, degenerative disc disease of the lumbar spine as detailed level by level above. THIS IS AN ELECTRONICALLY VERIFIED FINAL REPORT 06/11/2022 9:42 AM - Electronically signed by ??Austen Mendes M.D. VAN: VAN D: ??06/11/2022 9:42 AM T: ??06/11/2022 9:42 AM Report ID: [id number] Reading Location: ??[id number] Procedure Note Austen Mendes MD - 06/11/2022 EXAM DESCRIPTION: MRI CERVICAL SPINE WO CONTRAST; MRI LUMBAR SPINE WO CONTRAST; MRI THORACIC SPINE WO CONTRAST REASON FOR STUDY: Chronic neck pain status post unspecified surgery 2020. Bilateral leg pain and numbness of unspecified duration without provided thoracic or lumbar spine complaints. No provided history of trauma. No provided history of thoracic or lumbar spine surgeries and/or procedures. TECHNIQUE: Sagittal and axial imaging of the lumbar spine includes T1, T2, STIR and gradient echo sequences. Images saved to PACS. Patient motion artifact variably spanning multiple sequences compromises evaluation ofthe cervical spine overall. COMPARISON: No prior imaging of the cervical or thoracic spine availableat time of interpretation; MRI lumbar spine with contrast 05/15/2013 (report without images). FINDINGS: CERVICAL SPINE: CERVICAL ALIGNMENT: Normal. CERVICAL VERTEBRAE: No MR evidence of acute-subacute fracture.Vertebral body heights maintained. Spondylosis. Scattered hemangiomas about the visualized osseous architecture, most prominent T1 vertebral body. CERVICAL DISCS: Of the of the non fused intervertebral disc levels, multilevel variable intervertebral disc desiccation and loss ofintervertebral disc height about the visualized cervicothoracic spine. CERVICAL HARDWARE: ACDF C4-C6. CERVICAL CORD: Normal in size and signal intensity. BASE OF BRAIN: No significant finding. INDIVIDUAL DISC LEVELS: C1-C2: No spinal canal stenosis. C2-C3: No diffuse disc bulge or focal herniation. Bilateralhypertrophic facet arthropathy. No spinal canal stenosis. Mild right neural foraminal stenosis. C3-C4: Mild posterior disc osteophyte complex with right subarticular-foraminal, maximal right subarticular-foraminal junctional,disc protrusion indenting the right eccentric ventral thecal sac. Bilateral hypertrophic facet arthropathy. Bilateral uncovertebral joint disease. Moderate right spinal canal stenosis. Right greater than left neural foraminal stenosis. C4-C5: Fused at this level with posterior disc osteophyte complexeccentric to the right indenting the right eccentric ventral thecal sac. Bilateral hypertrophic facet arthropathy. Mild right eccentric spinal canalstenosis. No high-grade neural foraminal stenosis. C5-C6: Fused at this level with posterior disc osteophyte complex withleft subarticular disc protrusion indenting the left eccentric ventral spinalcord. Bilateral facet arthropathy. Moderate severe left eccentric spinal canal stenosis. Left neural foraminal stenosis. C6-C7: Posterior disc osteophyte complex indenting the ventral thecalsac. Bilateral facet arthropathy. No spinal canal stenosis. No high-gradeneural foraminal stenosis. C7-T1: No diffuse disc bulge or focal herniation. Bilateral facet arthropathy. No spinal canal stenosis. No significant neural foraminal stenosis. CERVICAL OTHER: No other significant finding. THORACIC SPINE: THORACIC ALIGNMENT: Normal. THORACIC VERTEBRAE: No MR evidence of acute-subacute fracture.Multilevel variable minimal to mild anterior degenerative wedging of the thoracicspine. Spondylosis. Scattered hemangiomas about the osseous architecture. THORACIC DISCS: Multilevel variable vacuum disc phenomenon,intervertebral disc desiccation, and loss of intervertebral disc height. THORACIC HARDWARE: None in the thoracic spine. THORACIC CORD: Normal in size with conus medullaris termination at L1, noting a tiny nonexpansile focus of T2/STIR hyperintensity at the level of below-described T2-3 compressive disc disease favoring cervicalmyelomalacia and/or cord edema. THORACIC DISCS T1-T12: T2-3: Mild annular disc bulge with large central disc protrusion with 7 mm superior migration indents the ventral spinal cord. Bilateral facet arthropathy. Moderate severe spinal canal stenosis. Mild bilateralneural foraminal stenosis. T3-4: Annular disc bulge indents the ventral thecal sac. Bilateral facet arthropathy. Mild spinal canal stenosis. Mild bilateral neural foraminal stenosis. T4-5: Annular disc bulge indents the ventral thecal sac. Bilateral facet arthropathy. Mild spinal canal stenosis. Mild bilateral neural foraminal stenosis. T5-6: Annular disc bulge with central-left subarticular disc protrusionwith components of slight superior and inferior migration indents the left eccentric ventral thecal sac. Bilateral facet arthropathy. Moderate left eccentric spinal canal stenosis. No significant neural foraminalstenosis. T6-7: Annular disc bulge with left subarticular-foraminal disc protrusion indents the left eccentric ventral thecal sac. Bilateral facetarthropathy. Moderate left eccentric spinal canal stenosis. Mild right neuralforaminal stenosis. T7-8: Annular disc bulge with left eccentric central-left foraminal,maximal left subarticular, disc protrusion indents the left eccentric ventralthecal sac. Bilateral facet arthropathy. Moderate-severe left eccentric spinal canal stenosis. No significant neural foraminal stenosis T8-9: Annular disc bulge indents the ventral thecal sac. Bilateral facet arthropathy. No spinal canal stenosis. Mild left neural foraminalstenosis. T9-10: Annular disc bulge indents the ventral thecal sac. Bilateral facet arthropathy. Minimal spinal canal stenosis. No significant neuralforaminal stenosis. T10-11: Annular disc bulge indents the ventral thecal sac. Bilateralfacet arthropathy. No spinal canal stenosis. No significant neural foraminal stenosis. THORACIC OTHER: No other significant finding. LUMBAR SPINE: SEGMENTATION: For the purposes of this study, the lowest fully formed intervertebral disc level is labeled L5-S1. LUMBAR ALIGNMENT: Mild levoscoliosis of the lumbar spine centered at approximately L2-3. LUMBAR VERTEBRAE: No MR evidence of acute-subacute fracture. Vertebralbody heights maintained. Spondylosis, to include robust mixed Modic type,Modic type 1 predominant, endplate degenerative changes at left eccentric L1-2. Scattered hemangiomas and patchy fatty marrow replacement about theosseous architecture. LUMBAR DISCS: Multilevel variable intervertebral disc desiccation andloss of intervertebral disc height about the lower thoracic through lumbarspine, maximal at L1-2. LUMBAR HARDWARE: None in the lumbar spine. LUMBAR CORD/CAUDA: Normal in size and signal intensity with conusmedullaris termination at L1. INDIVIDUAL DISC LEVELS: T12-L1: No diffuse disc bulge or focal herniation. Bilateral facet arthropathy. No spinal canal stenosis. No neural foraminal stenosis. L1-2: Annular disc bulge. Bilateral hypertrophic facet arthropathy.Mild ligamentum flavum thickening. No spinal canal stenosis. No significant neural foraminal stenosis. L2-3: Annular disc bulge. Bilateral facet arthropathy, noting slightfluid in the left facet joint suggestive of facet synovitis. Mild spinal canal stenosis. No significant neural foraminal stenosis. L3-4: No diffuse disc bulge or focal herniation. Bilateral hypertrophic facet arthropathy. Ligamentum flavum thickening. No spinal canalstenosis. Mild right neural foraminal stenosis, noting combination of posteriorcortical margin/disc and arthropathic facet contact with exiting right L3 nerveroot. L4-5: Minimal annular disc bulge. Bilateral hypertrophic facetarthropathy. Ligamentum flavum thickening. Moderate spinal canal stenosis. No significant neural foraminal stenosis. L5-S1: No diffuse disc bulge or focal herniation. Bilateralhypertrophic facet arthropathy. Slight compromise of the right lateral recess. Nospinal canal stenosis. No neural foraminal stenosis. LUMBAR OTHER: No other significant finding. SACRUM: Visualized upper sacrum intact. SOFT TISSUES: No gross evidence of acute abnormality, noting patientmotion artifact. IMPRESSION: 1. ACDF C4-C6. 2. Spondylosis and degenerative disc disease of the cervical spine as detailed level by level above. 3. Spondylosis and degenerative disc disease of the thoracic spine as detailed level by level above. 4. Tiny nonexpansile focus of cord signal abnormality at the level of above-described T2-3 compressive disc disease favors cervical myelomalacia and/or cord edema. 5. Constellation of scoliosis, spondylosis, degenerative disc disease ofthe lumbar spine as detailed level by level above. THIS IS AN ELECTRONICALLY VERIFIED FINAL REPORT 06/11/2022 9:42 AM - Electronically signed by Austen Mendes M.D. VAN: VAN Report ID: [id number] Reading Location: [place] [address] [facility] MRI PROCEDURES Final Result documented in this encounter Visit Diagnoses Diagnosis Cervicalgia Cervical spondylosis with radiculopathy Cervical spondylosis with myelopathy Numbness Disturbance of skin sensation documented in this encounter Care Teams Lifter Relationship Specialty Start Date End Date Bhargav Wilkes MD [address] [place] [address] PCP - General Family Medicine 04/15/22 documented as of this encounter
--- OUTSIDE RECORDS SUMMARY | 2024-04-13 08:34 | XMS_ITS | Encounter Summary ---
Author Organization [facility] [employer] [facility] Address [address] [place] [address] Phone Care Team Providers Care Lsw Name Role Phone Betty Alonso MD Primary Care Provider Reason for Visit * Reason Comments Post-op Encounter Details Date Type Department Care Team (Late st Contact Info) Description 01/28/2018 11:10 AM CDT Office Visit 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 Gender Identity Not on file Sexual Orientation Not on file documented as of this encounter Last Filed Vital Signs Vital Sign Reading Time Taken Comments Blood Pressure - - Pulse - - Temperature - - Respiratory Rate - - Oxygen Saturation - - Inhaled Oxygen Concentration - - Weight 84.4 kg (186 lb) 01/28/2018 11:16 AM CDT Height 162.6 cm (5' 4 ) 01/28/2018 11:16 AM CDT Body Mass Index 31.93 01/28/2018 11:16 AM CDT documented in this encounter Progress Notes * Sanya Anand MD - 01/28/2018 11:10 AM CDT RETURN PATIENT VISIT HISTORY OF PRESENT ILLNESS 62-year-old here for follow-up for her right knee 11 days status post arthroscopic partial medial meniscectomy. She is doing well. She does not report any fevers. She has mild discomfort on the medial aspect of the knee. She says this seems to be getting better. She is eager to start physical therapy. PHYSICAL EXAMINATION Well-appearing female in NAD. Hearing intact to normal levels of conversation. No labored breathing. Her right knee demonstrates no effusion. There is no warmth or erythema. She has mild tenderness over the medial joint line. She has no lateral joint line tenderness. She has 0-130 degrees of motion today. She is neurovascular intact distally. IMPRESSION/DIAGNOSIS Improving right knee 11 days status post arthroscopic partial medial meniscectomy TREATMENT PLAN I recommended that she continue using ice and oral anti-inflammatory medications to help with pain.We will have her start physical therapy to work on quad strengthening. We will see her back in 4 weeks for repeat evaluation. She should notify us if she develops worsening pain. Sanya Anand MD Screen Printer of Orthopaedic Surgery Sports Medicine and Shoulder Surgery Dictated using MModal Fluency Direct. Retail Manager variations may occur. documented in this encounter Plan of Treatment Not on file documented as of this encounter Visit Diagnoses Diagnosis Right knee pain, unspecified chronicity- Primary documented in this encounter Care Teams Lsw Relationship Specialty Start Date End Date Betty Alonso MD [address] [place] [address] PCP - General Family Medicine 10/07/17 04/14/22 documented as of this encounter
--- OUTSIDE RECORDS SUMMARY | 2024-04-13 08:34 | XMS_ITS | Encounter Summary ---
Author Organization [facility] [place] Address [address] [place] [address] Phone Care Team Providers Care Port Drier Name Role Phone Betty Alonso MD Primary Care Provider [phone] Encounter Details Date Type Department Care Team (Late st Contact Info) Description 01/14/2018 Telephone [facility] Orthopaedic Surgery [id number] [place] [phone] Felipe Chopra ATC Social History Tobacco Use Types Packs/Day Years Used Date Smoking Tobacco: Former Cigarettes 0.5 7.7 1 981 - 01/11/1988 Smokeless Tobacco: Never Comments Unknown Sex and Gender Information Value Date Recorded Sex Assigned at Not on file 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 She will use her own. documented in this encounter Plan of Treatment Not on file documented as of this encounter Visit Diagnoses Not on filedocumented in this encounter Care Teams Port Drier Relationship Specialty Start Date End Date Betty Alonso MD [address] [place] [address] PCP - General Family Medicine 10/07/17 04/14/22 documented as of this encounter
--- OUTSIDE RECORDS SUMMARY | 2024-04-13 08:34 | XMS_ITS | Encounter Summary ---
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 miscellaneous medical supply misc Compression stocking with a zipper 06/19/2022 3 added in this encounter Care Teams Manager Unit Relationship Specialty Start Date End Date Bhargav Wilkes MD [address] [place] [id number] PCP - General Family Medicine 04/15/22 documented as of this encounter
--- OUTSIDE RECORDS SUMMARY | 2024-04-13 08:34 | XMS_ITS | Encounter Summary ---
Author Organization [facility] Address [address] [place] [address] Care Team Providers Care Biomass Technician Name Role Phone Betty Alonso MD Primary Care Provider [phone] Encounter Details Date Type Department Care Team (Latest Contact Info) Description 01/17/2018 7:24 AM CDT - 01/17/2018 12:13 PM CDT Hospital Encounter [facility] Operating [facility] [address] [place] [address] [place] [id number] [place] [address] Discharge Disposition: Discharge to home or self care Social History Tobacco Use Types Packs/Day Years Used Date Smoking Tobacco: Former Cigarettes 0.5 7.7 1 981 - 01/11/1988 Smokeless Tobacco: Never Comments Unknown Sex and Gender Information Value Date Recorded Sex Assigned at Not on file 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 Gender Identity Not on file Sexual Orientation Not on file documented as of this encounter Last Filed Vital Signs Vital Sign Reading Time Taken Comments Blood Pressure 123/73 01/17/2018 11:55 AM CDT Pulse 70 01/17/2018 12:00 PM CDT Temperature 37 ??C (98.6 ??F) 01/17/2018 10:40 AM CDT Respiratory Rate 15 01/17/2018 12:00 PM CDT Oxygen Saturation 96% 01/17/2018 12:00 PM CDT Inhaled Oxygen Concentration - - Weight 84.5 kg (186 lb 4.8 oz) 01/17/2018 7:58 A M CDT Height 162.6 cm (5' 4 ) 01/17/2018 7:58 AM CDT Body Mass Index 31.98 01/17/2018 7:58 AM CDT documented in this encounter Discharge Instructions * Discharge Instructions* Sanya Anand MD - 01/17/2018 10:39 AM CDT PATIENT DISCHARGE INSTRUCTIONS Diagnosis: Post-op Diagnosis * Acute medial meniscus tear of right knee, subsequent encounter [S83.241D] Procedure: Procedure(s): RIGHT KNEE ARTHROSCOPIC PARTIAL MEDIAL MENISCECTOMY Significant Findings: 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 Medications Continue all home medications Hydrocodone/acetaminophen as needed for pain Take over the counter Tylenol per the instructions on the bottle as needed for pain. Do not take this medication if you have liver disease. Take over the counter Ibuprofen (Mortin) or Naproxen (Aleve) per the instructions on the bottle as needed for pain if your are not allergic to these medications. Do not take these medications if you have kidney disease or a history of stomach ulcers. Take Zofran as needed for nausea. Dressing Care Remove Dressin days. Do not put any ointments, oils or lotions on the incisions. Bathing You may shower once the dressing is removed. Keep wounds covered while showering until follow-up with Dr. Anand. No baths, soaks hot tubs, or swimming pools for 3 weeks after surgery. Physical Therapy :Do the home exercise program in your folder until follow-up in the office. Additional Information: If you experience fevers, chills, drainage from incision site, or increasing redness around incision, please call [phone]. Follow-Up Appointment: You are scheduled to follow-up with Dr. Anand on 01/28/18 at 11:10 am at: [facility] [address] [place] [address] If you need to change this appointment, please call [phone] Anand's school health assistant or call the scheduling office at [phone]. documented in this encounter Medications at Time of Discharge cholecalciferol (VITAMIN D-3) 5,000 unit capsule Take 5,000 Units by mouth daily. 04/15/2022 cyanocobalamin 2,000 mcg tablet Take 2,000 mcg by mouth daily. 04/15/2022 HYDROcodone-aceta minophen (NORCO) 5-325 mg per tabletIndications :Pain TAKE 1-2 TABLETS EVERY 4-6 HOURS NEEDED FOR PAIN 20 tablet 01/12/2018 04/15/2022 lisinopril-hydroC HLOROthiazide (PRINZIDE,ZESTORE TIC) 20-12.5 mg per tabletIndications :hypertension TK 1 T PO ONCE A DAY 6 09/30/2017 04/15/2022 loratadine (CLARITIN) 10 mg tablet TK 1 T PO QD 1 07/25/2017 04/15/2022 omeprazole (PriLOSEC) 40 mg capsule Take 40 mg by mouth daily. 04/15/2022 ondansetron (ZOFRAN) 4 mg tablet Take 1 tablet (4 mg total) by mouth every 8 (eight) hours as needed for nausea or vomiting. 20 tablet 01/12/2018 04/15/2022 venlafaxine XR (EFFEXOR-XR) 75 mg 24 hr capsule TK ONE C PO ONCE A DAY 3 07/25/2017 04/15/2022 documented as of this encounter Discharge Disposition Disposition Code Departure Means Destination Discharge to home or self care documented in this encounter H&P Notes * Crystal Rivas, VICE PRESIDENT OF HUMAN RESOURCES - 01/17/2018 8:07 AM CDT Outpatient Pre-Procedure History and Physical Subjective Patient is a 62 y.o. female with chief complaint of right knee pain. Indication For Procedure: Pre-op Diagnosis * Acute medial meniscus tear of right knee, subsequent encounter [S83.241D] Planned Procedure RIGHT ARTHROSCOPY KNEE, PARTIAL MEDIAL MENISCECTOMY VS REPAIR HPI: 62-year-old with a right knee medial meniscus tear. Past Medical History: Diagnosis Date ??? Acute [...] Date ??? SECTION x2 ??? HYSTERECTOMY 1988 Prescriptions Prior to Admission Medication Sig Dispense Refill Last Dose ??? cholecalciferol (VITAMIN D-3) 5,000 unit capsule Take 5,000 Units by mouth daily. 01/16/2018 at Unknown time ??? cyanocobalamin 2,000 mcg tablet Take 2,000 mcg by mouth daily. 01/16/2018 at Unknown time ??? lisinopril-hydroCHLOROthiazide (PRINZIDE,ZESTORETIC) 20-12.5 mg per tablet TK 1 T PO ONCE A DAY6 01/16/2018 at Unknown time ??? loratadine (CLARITIN) 10 mg tablet TK 1 T PO QD 1 Past Week at Unknown time ??? omeprazole (PriLOSEC) 40 mg capsule Take 40 mg by mouth daily. 01/17/2018 at Unknown time ??? venlafaxine XR (EFFEXOR-XR) 75 mg 24 hr capsule TK ONE C PO ONCE A DAY 3 01/16/2018 at Unknown time ??? HYDROcodone-acetaminophen (NORCO) 5-325 mg per tablet TAKE 1-2 TABLETS EVERY 4-6 HOURS NEEDED FOR PAIN 20 tablet 0 Unknown at Unknown time ??? ondansetron (ZOFRAN) 4 mg tablet Take 1 tablet (4 mg total) by mouth every 8 (eight) hours as needed for nausea or vomiting. 20 tablet 0 Unknown at Unknown time Allergies Allergen Reactions ??? Codeine Stomach upset Social History Substance Use Topics ??? Smoking status: Former Smoker Packs/day: 0.50 Years: 7.00 Start date: 1980 Quit date: 01/11/1988 ??? Smokeless tobacco: Never Used ??? Alcohol use Not on file Comment: rare-1 drink/month History Drug Use No Vitals: 01/17/18 0755 01/17/18 0758 01/17/18 0800 01/17/18 0805 BP: 132/73 132/73 BP Location: Right arm Patient Position: Lying Pulse: 85 65 66 Resp: 20 Temp: 36.6 ??C (97.9 ??F) TempSrc: Temporal SpO2: 92% 98% 98% 97% Weight: 84.5 kg (186 lb 4.8 oz) Height: 162.6 cm (5' 4 ) Review of Systems: Review of systems per HPI and otherwise all other systems are negative Physical exam: Lungs: clear to auscultation bilaterally Heart: regular rate and rhythm, S1, S2 normal, no murmur, click, rub or gallop Neurologic: Alert and oriented x4, grossly intact Crystal Rivas NP documented in this encounter Miscellaneous Notes * Perioperative Nursing Note - Jocelin Mata RN - 01/17/2018 12:00 PM CDT Pt and family verbalized understanding of D/C instructions. All questions answered. Pt stated pain and nausea tolerable for D/C. No changes since previous assessment. To prepare for D/C. IV catheter dc'd with tip intact without redness, drainage or bleeding. * Perioperative Nursing Note - Jocelin Mata RN - 01/17/2018 11:01 AM CDT Pt states she has a headache but the pain she was feeling has passed. Pt states she does not do well with pain pills. Will continue to monitor and assess for further treatment of pain. * Perioperative Nursing Note - Jocelin Mata RN - 01/17/2018 11:01 AM CDT Pt's sister with pt and will care for pt for 24 hours post surgery. * Perioperative Nursing Note - Jocelin Mata RN - 01/17/2018 10:40 AM CDT Pt in bed in lowest position locked with both side rails up, nonslip socks applied, curtain open and patient near nurses station. Pt will not be left behind curtain alone. Pt assisted in all cares inrecovery. * Op Note - Sanya Anand MD - 01/17/2018 10:04 AM CDT Operative Note Attending Surgeon: Sanya Anand MD Surgical Assistants: Surgeon(s) and Role: * Sanya Anand MD - Primary * Armani Sosa MD - Resident - Assisting Date of Surgery: 01/17/2018 Preoperative Diagnosis: Pre-op Diagnosis * Acute medial meniscus tear of right knee, subsequent encounter [S81.673D] Postoperative Diagnosis: Post-op Diagnosis * Acute medial meniscus tear of right knee, subsequent encounter [V37.407D] Procedure: Procedure(s): RIGHT KNEE ARTHROSCOPIC PARTIAL MEDIAL MENISCECTOMY Anesthesia: General Surgical Indication 62-year-old with medial knee pain after a twisting injury. She has an MRI that shows a medial meniscus tear. We talked about doing an arthroscopic evaluation of her knee to address her meniscus pathology. She understands the risks of infection, nerve or vessel injury, persistent pain, progression of arthritis as well as other things we cannot predict related to surgery. She wanted to proceed withsurgery. Operative Findings: The patient was seen in the preop holding area where consent was reviewed and signed. The right knee was initialed. The patient was taken to the operating the transfered safely to the operative table. Once in the operative suite the patient was anesthetized by Anesthesia. Once under anesthesia, the right knee was prepped and draped sterilely. I performed a diagnostic arthroscopy through a anterolateral portal. I created a anterior medial portal under spinal needle localization. A superolateral portal was created for outflow. Upon entering the joint, I evaluated the articular cartilage and the meniscus with the following findings: Patella: chondrosis (Grade 4 along the medial patella facet. Her median ridge and lateral facet were normal.) Trochlea: chondrosis (Grade 3/4 in the central trochlea for an area of 2 x 2 cm) Medial femoral condyle: normal cartilage Medial tibial plateau: normal cartilage Lateral femoral condyle: normal cartilage Lateral tibial plateau: normal cartilage Loose body: none The medial meniscus was torn with complex pattern in the posterior horn. This involved 70% of the width of the meniscus the midportion of the posterior horn. The lateral meniscus was normal. After the diagnostic arthroscopy, the medial meniscus was treated with debridement using a biter and shaver leaving approximately 30% of meniscus remaining in the posterior horn. There were no loose meniscal fragments after the partial meniscectomy. I then drained the arthroscopy fluid of the knee joint. Suture closure was performed for the portals. Dry sterile dressings were applied in standard fashion. The patient was awakened transfer safely off the operating table and taken to the postanesthesia care unit in good condition. Estimated Blood Loss: No blood loss documented. Specimens: No specimen collected in procedure Complications: None Condition on Discharge from the operating room was stable Sanya Anand MD Date: 01/17/2018 Time: 10:34 AM TEACHING ATTESTATION : I was present and I participated in all portions of the procedure except skin closure and remained immediately available during all remaining portions of the case. * Perioperative Nursing Note - Linette Kearns RN - 01/17/2018 8:20 AM CDT Pt has a walker for after surgery. * Perioperative Nursing Note - Linette Kearns RN - 01/17/2018 8:19 AM CDT Pt's family at bedside. * Perioperative Nursing Note - Cookie Mckeon RN - 01/10/2018 3:51 PM CDT Spoke with Dr. Torres regarding possible history of CA. No further evaluation needed and ok for patient to have surgery here per Dr. Torres. * Pre-Procedure Instructions - Cookie Mckeon RN - 01/10/2018 3:42 PM CDT Directions to facility Bring glass/contact case Bring pillows. Patient has ice packs for home. Remove make-up, perfume, lipstick and nail syriac. Shower the night before and morning of surgery with anti-bacterial soap or Phisohex/ Hibiclens Change linens and pillow cases on bed. This is for infection prevention. Leave jewelry and valuables at home EXCEPT Drivers license and Insurance card. Wear loose fitting clothes. NPO after Midnight. No gums, mints, candy or chewing tobacco. No ice or water. You may brush your teeth, just make sure you spit it all out Take following medications with a sip of water Prilosec Hold NSAIDS , Naltraxone Hold Anticoagulant for 5 days Scopolamine patch ordered preop documented in this encounter Plan of Treatment Not on file documented as of this encounter Procedures Procedure Name Priority Date/Time Associated Diagnosis Comments ARTHROSCOPY KNEE 01/17/2018 9:47 AM CDT Acute medial meniscus tear of right knee, subsequent encounter Special Needs 1 HOUR CASE POCT PREOP SCREEN ([id number]- [id number]-HCT) Routine Gen Lab 01/17/2018 8:16 AM CDT documented in this encounter Results * POCT Preop screen ([id number]-Hct) (01/17/2018 8:16 AM CDT) K POC 4.0 3.3 - 4.9 mmol/L [facility] Blood specimen (specimen) 01/17/2018 8:16 AM CDT 01/17/2018 8:16 AM CDT Narrative [facility] - 01/17/2018 9:23 AM CDT us Sanya Anand MD LAB POCT ORDERABLES - DE VICE Final Result [facility] Department [place] [address] documented in this encounter Visit Diagnoses Diagnosis Acute medial meniscus tear of right knee- Primary documented in this encounter Admitting Diagnoses Diagnosis Acute medial meniscus tear of right knee documented in this encounter Administered Medications Inactive Administered Medications - up to 3 most recent administrations Medication Order MAR Action Action Date Dose Rate Site HYDROcodone-acetaminophen (NORCO) 5-325 mg per tablet 1 tablet 1 tablet, oral, Every 20 min PRN, 3rd line for pain, breakthrough pain, May give two doses at the same time for severe pain after consulting with Anesthesiologist, Starting on Wed01/17/18 at 1044, For 2 doses, Phase I, When able to tolerate PO., Indications: PainIndications:Pain Given 01/17/2018 11:35 AM CDT 1 tablet Lactated Ringer's (LR) infusion 30 mL/hr, intravenous, Continuous, Starting on Wed01/17/18 at 1015, Pre-Op New Bag 01/17/2018 9:29 AM CDT 30 mL/hr 30 mL/h r New Bag 01/17/2018 8:18 AM CDT 30 mL/hr 30 mL/hr Le ft Forearm Lactated Ringer's (LR) infusion 125 mL/hr, intravenous, Continuous, Starting on Wed01/17/18 at 1115, Phase I New Bag 01/17/2018 10:40 AM CDT 125 mL/hr 125 m L/hr documented in this encounter Discontinued Medications Medication Sig Discontinue Reason Start Date End Da te azithromycin (ZITHROMAX) 250 mg tablet Therapy completed 11/15/2017 01/10/2018 DOXYCYCLINE HYCLATE 100 mg capsule TK 1 C PO BID Therapy completed 11/29/2017 01/10/2018 lisinopril (PRINIVIL,ZESTRIL) 20 mg tablet Take 20 mg by mouth daily. Duplicate order 01/10/2018 naproxen (NAPROSYN) 500 mg tablet TK 1 T PO BID WF Error 11/15/2017 01/10/2018 predniSONE (DELTASONE) 10 mg tablet TK 6 TS PO ONCE D FOR 2 DAYS THEN DECREASE BY ONE T QOD Therapy completed 11/15/2017 01/10/2018 documented as of this encounter Active and Recently Administered Medications Times are shown in CDT. Scheduled Medication Order 01/15/2018 01/16/2018 01/17/2018 ceFAZolin (ANCEF) 2000 mg in 50 mL dextrose (premix) (COMPLETED) 2,000 mg, intravenous, at 100 mL/hr, Administer over 30 Minutes, Once, On 01/17/18 at 1015, For 1 dose, Pre-Op, Administer within 60 minutes of incision. Duplex bag - activate before hanging. , Indications: Prophylaxis, Surgical 0942 (New Bag - Prov ider: Crystal Mcghee CRNA)0948 (Stopped - Provider: Crystal Mcghee CRNA) Continuous Medication Order 01/15/2018 01/16/2018 01/17/2018 Lactated Ringer's (LR) infusion (CANCELED) 30 mL/hr, intravenous, Continuous, Starting on Wed01/17/18 at 1015, Pre-Op 0818 (New Bag - Prov ider: Linette Kearns RN)0929 (New Bag - Provider: Linette Kearns RN)1035 (Anesthesia Volume Adjustment - Provider: Crystal Mcghee CRNA)1040 (Stopped - Provider: Jocelin Mata, TOMMY) Lactated Ringer's (LR) infusion 125 mL/hr, intravenous, Continuous, Starting on Wed01/17/18 at 1115, Phase I 1040 (New Bag - Prov ider: Jocelin Mata, TOMMY)1200 (Stopped - Provider: Jocelin Mata, RN) PRN Medication Order 01/15/2018 01/16/2018 01/17/2018 acetaminophen (TYLENOL) tablet 1,000 mg 1,000 mg, oral, Once as needed, headaches, other, Breakthrough pain, Starting on Wed01/17/18 at 1044, For 1 dose, Phase I, When able to tolerate PO after consulting with Anesthesiologist., Indications: Pain bupivacaine-EPINEPHrine (MARCAINE with EPI) 0.5 %-1:200,000 preservative free injection (CANCELED) As needed, Starting on Wed01/17/18 at 1031, Intra-Op 1031 (Given - Provid er: Sanya Anand MD) diphenhydrAMINE (BENADRYL) injection 12.5 mg 12.5 mg, intravenous, Every 5 min PRN, itching, other, For nausea, administer 25 mg IV, Starting on Wed01/17/18 at 1044, For 4 doses, Phase I, Max cumulative dose 50 mg., Indications: Itching fentaNYL (SUBLIMAZE) preservative free syringe 25 mcg 25 mcg, intravenous, Every 5 min PRN, 1st line for pain, uncontrolled pain on PACU admission for outpatients, Starting on Wed01/17/18 at 1044, Phase I, Use as 1st line for Outpatients, dose not to exceed 100 mcg. Then proceed to 2nd Line at OC after consulting Anesthesiologist., Indications: Pain HYDROcodone-acetaminophen (NORCO) 5-325 mg per tablet 1 tablet 1 tablet, oral, Every 20 min PRN, 3rd line for pain, breakthrough pain, May give two doses at the same time for severe pain after consulting with Anesthesiologist, Starting on Wed01/17/18 at 1044, For 2 doses, Phase I, When able to tolerate PO., Indications: Pain 1135 (Given - Provid er: Jocelin Mata RN) HYDROmorphone (DILAUDID) injection 0.2 mg 0.2 mg, intravenous, Every 5 min PRN, 2nd line for pain, Use as 1st line for Inpatients at [facility].?Use Use as second line for OC after consulting with Anesthesiologist., Starting on Wed01/17/18 at 1044, Phase I, Notify Anesthesiologist if total PACU dose reaches 2 mg for inpatients and 1 mg total for outpatients and pain score 5/10 or more., Indications: Pain labetalol (NORMODYNE,TRANDATE) injection 5 mg 5 mg, intravenous, Every 5 min PRN, high blood pressure, Starting on Wed01/17/18 at 1044, For 4 doses, Phase I, Max cumulative dose 20 mg. Dose if systolic blood pressure greater than 180 AND HR greater than 70, after consulting with Anesthesiologist Lactated Ringer's (LR) irrigation (CANCELED) As needed, Starting on Wed01/17/18 at 1031, Intra-Op 1031 (Given - Provid er: Sanya Anand MD) meperidine (DEMEROL) preservative free injection 12.5 mg 12.5 mg, intravenous, Every 10 min PRN, shivering, Starting on Wed01/17/18 at 1044, For 2 doses, Phase I, Max cumulative dose 25 mg., Indications: Shivering ondansetron (ZOFRAN) injection 4 mg 4 mg, intravenous, Once as needed, nausea, vomiting, Maximum of 8 mg total including intraoperative dose, Starting on Wed01/17/18 at 1044, For 1 dose, Phase I, Indications: Prevention of Post-Operative Nausea and Vomiting, Nausea and Vomiting scopolamine patch 72 hour 1 patch 1 patch, transdermal, Administer over 72 Hours, Once as needed, Apply only after consulting Anesthesiologist, Starting on Wed01/17/18 at 0945, For 1 dose, Pre-Op, Please place for all shoulder surgeries, patients with history of PONV and Motion Sickness, unless history of BPH, urinary retention, or Glaucoma., Indications: Prevention of Post-Operative Nausea and Vomiting sodium chloride 0.9% flush 0.5-20 mL 0.5-20 mL, intra-catheter, As needed, line care, Keep Viola Block IV Saline lock open., Starting on Wed01/17/18 at 0746, Pre-Op, Flush volume based on line type and size. Flush before and after each use. , Indications: Flushing documented in this encounter Orders Medications Ordered That Sigifredo ht Not Have Been Administered Count Last Ordered Date First Ordered Date acetaminophen (TYLENOL) tablet 1,000 mg 1 1 bupivacaine-EPINEPHrine (MAR CASSY with EPI) 0.5 %-1:200,000 preservative free injection 1 01/17/2018 ceFAZolin (ANCEF) 2000 mg in 50 mL dextrose (premix) 1 01/17/2018 diphenhydrAMINE (BENADRYL) i njection 12.5 mg 1 01/17/2018 fentaNYL (SUBLIMAZE) preserv ative free syringe 25 mcg 1 01/17/2018 HYDROmorphone (DILAUDID) injection 0.2 mg 1 01/17/2018 labetalol (NORMODYNE,TRANDAT E) injection 5 mg 1 01/17/2018 Lactated Ringer's (LR) irrigation 1 018 meperidine (DEMEROL) preserv ative free injection 12.5 mg 1 01/17/2018 ondansetron (ZOFRAN) injection 4 mg 1 01/17 scopolamine patch 72 hour 1 patch 1 018 sodium chloride 0.9% flush 0.5-20 mL 1 11/2017 documented in this encounter Care Teams Biomass Technician Relationship Specialty Start Date End Date Betty Alonso MD [address] [place] [address] PCP - General Family Medicine 10/07/17 04/14/22 documented as of this encounter
--- OUTSIDE RECORDS SUMMARY | 2024-04-13 08:34 | XMS_ITS | Encounter Summary ---
Author Organization [facility] Healthcare Address [address] [place] [address] Care Team Providers Care Director Of Intelligence Name Role Phone Betty Alonso MD Primary Care Provider [phone] Reason for Visit * Reason Comments Chest Pain Encounter Details Date Type Department Care Team (Late st Contact Info) Description 07/06/2018 11:42 AM CDT - 07/06/2018 3:23 PM CDT Emergency [facility] Emergency Department [address] [place] [address] Maged Denson MD 1 [facility] [place] [address] Shortness of breath (Primary Dx) Discharge Disposition: Discharge to home or self care Social History Tobacco Use Types Packs/Day Years Used Date Smoking Tobacco: Former Cigarettes 0.5 7.7 1 981 - 01/11/1988 Smokeless Tobacco: Never Comments Unknown Sex and Gender Information Value Date Recorded Sex Assigned at Not on file 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 Gender Identity Not on file Sexual Orientation Not on file documented as of this encounter Last Filed Vital Signs Vital Sign Reading Time Taken Comments Blood Pressure 124/81 07/06/2018 2:45 PM CDT Pulse 73 07/06/2018 2:50 PM CDT Temperature 36.8 ??C (98.2 ??F) 07/06/2018 12:11 PM C DT Respiratory Rate 18 07/06/2018 2:50 PM CDT Oxygen Saturation 100% 07/06/2018 2:50 PM CDT Inhaled Oxygen Concentration - - Weight 86.2 kg (190 lb) 07/06/2018 12:11 PM CDT Height 162.6 cm (5' 4 ) 07/06/2018 12:11 PM CDT Body Mass Index 32.61 07/06/2018 12:11 PM CDT documented in this encounter Discharge Instructions * Discharge Instructions* Maged Denson MD - 07/06/2018 3:09 PM CDT Please return to the ED if if high fevers, change in chest pain, progressing shortness of breath, any new symptoms or for any other concerns. Please keep appointment with her primary care doctor an appointment for stress test. * Attachments The following attachments cannot be sent through Care Everywhere. * Shortness of Breath (AfterCare(R) Instructions(ER/ED)) (S[place]an) * Chest Pain (AfterCare(R) Instructions(ER/ED)) ([place]) documented in this encounter Medications at Time [...] or self care documented in this encounter ED Notes * Liliam Rivas RN - 07/06/2018 12:00 PM CDT Pt came from home complaining of chest pain and tightness that began this morning when she woke up.Pt states she became anxious and then decided to come in. Pt has a hx of GERD, anxiety, and HTN. * Maged Denson MD - 07/06/2018 11:53 AM CDT HPI Chief Complaint Patient presents with ??? Chest Pain 11:43 AM 07/06/2018 Pt is a 63 y/o female non-smoker with h/o HTN, [place], and anxiety, presenting to the ED c/o mid-sternal chest pressure that radiated into her right jaw and woke her from sleep this morning at approximately 10:00. Additionally, she notes pain in mid back and left shoulder but denies pain radiating downthe left upper extremity. She reports during this episode she was experiencing SOB and rapid breathing. She states she had to calm herself to bring her breathing back to normal. Pt mentions she had difficulty falling asleep last night and was unable to sleep until 0500 this morning. Pt denies nausea, vomiting, or diaphoresis. She states she is scheduled for an echo stress test on 07/29 at [facility]. There are no other complaints at this time. Patient History Patient Active Problem List Diagnosis Date Noted ??? Acute medial meniscus tear of right knee 01/06/2018 Past Medical History: Diagnosis Date ??? Acute [...] Date ??? SECTION x2 ??? HYSTERECTOMY 1988 ??? KNEE ARTHROSCOPY Family History Problem Relation Age of Onset ??? No Known Problems Mother ??? No Known Problems Father Social History Tobacco Use ??? Smoking status: Former Smoker Packs/day: 0.50 Years: 7.00 Pack years: 3.50 Start date: 1980 Last attempt to quit: 01/11/1988 Years since quittin.5 ??? Smokeless tobacco: Never Used Substance Use Topics ??? Alcohol use: Not on file Comment: rare-1 drink/month ??? Drug use: No Social History Social History Narrative ??? Not on file Review of Systems Review of Systems Constitutional: Negative for fever. HENT: Negative for congestion. Right jaw pain Eyes: Negative for redness. Respiratory: Positive for shortness of breath. Rapid breathing. Cardiovascular: Positive for chest pain. Gastrointestinal: Negative for abdominal pain. Genitourinary: Negative for difficulty urinating. Musculoskeletal: Positive for arthralgias (left shoulder) and back pain. Negative for joint swelling. Skin: Negative for rash. Neurological: Negative for headaches. Psychiatric/Behavioral: Negative for agitation. Physical Exam ED Triage Vitals Temp Pulse Resp BP SpO2 07/06/18 1211 07/06/18 1155 07/06/18 1155 07/06/18 1155 07/06/18 1155 36.8 ??C (98.2 ??F) 80 18 142/80 100 % Temp src Heart Rate Source Patient Position BP Location FiO2 (%) 07/06/18 1211 -- -- -- -- Temporal Physical Exam Constitutional: She appears well-developed and well-nourished. No distress. HENT: Head: Normocephalic and atraumatic. Right Ear: No drainage. Left Ear: No drainage. Nose: No rhinorrhea. Mouth/Throat: Oropharynx is clear and moist. Eyes: Conjunctivae and EOM are normal. Neck: Normal range of motion. Cardiovascular: Normal rate, regular rhythm, normal heart sounds and intact distal pulses. No murmur heard. Pulmonary/Chest: Effort normal and breath sounds normal. No respiratory distress. She has no wheezes. She has no rales. Abdominal: Soft. Bowel sounds are normal. She exhibits no distension. There is no tenderness. Thereis no guarding. Musculoskeletal: Normal range of motion. She exhibits no edema. Neurological: She is alert. No sensory deficit (To light touch). Face symmetrical. Skin: Skin is warm and dry. Capillary refill takes less than 2 seconds. Psychiatric: She has a normal mood and affect. Her behavior is normal. Nursing note and vitals reviewed. MDM MDM Number of Diagnoses or Management Options Diagnosis management comments: 63-year-old female with multiple comorbidities who presents today for shortness of breath. Difficult diagnosis includes ACS versus W[place] versus pneumonia versus PE versus other acute cardiothoracic pathology. Amount and/or Complexity of Data Reviewed Clinical lab tests: ordered Tests in the radiology section of CPT??: ordered Independent visualization of images, tracings, or specimens: yes Vitals: 07/06/18 1450 BP: Pulse: 73 Resp: 18 Temp: SpO2: 100% Labs Reviewed CBC WITH AUTO DIFFERENTIAL - Abnormal Result Value WBC 3.4 (*) Hgb 13.1 Hct 40.3 Plt 221 MPV 9.7 RBC 4.43 MCV 91.0 MCH 29.6 MCHC 32.5 RDW CV 13.6 RDW SD 45.7 NRBC Abs 0.00 Narrative: D-DIMER, QUANTITATIVE - Abnormal D-dimer <150 (*) Narrative: COMPREHENSIVE METABOLIC PANEL Sodium 135 Potassium, pl 4.9 Chloride 99 CO2 24 Anion Gap 12 BUN 25 Creatinine 0.96 Glucose 112 Calcium 9.7 Bilirubin, total 0.3 Protein, pl 7.2 Albumin 4.2 Alk phos 97 ALT 15 AST 28 Narrative: TROPONIN T Troponin T <0.01 Narrative: PROTIME-INR PT 10.8 INR 0.96 Narrative: APTT aPTT 27.5 Narrative: DIFFERENTIAL AUTO Neutrophil absolute 1.8 Immature granulocyte absolute 0.0 Lymphocytes absolute 1.3 Monocyte absolute 0.3 Eosinophils absolute 0.0 Basophils, abs 0.0 Neutrophils 53.4 Immature granulocytes 0.3 Lymphocytes 37.8 Monocytes 8.5 Eosinophils 0.0 Basophils 0.0 Narrative: EGFR GFR 63 Narrative: TROPONIN T Troponin T <0.01 Narrative: XR Chest 1 Vw Portable ED Interpretation No acute pneumonia Final Result NO ACTIVE DISEASE. Electronically signed by: Gaston Schneider M.D. ED Course as of Jul 06 1510 Time: 07/06 1247 Comment: Labs very reassuring. Notably white blood cell count is 3.4 just below normal. H&H is normal. D-dimer is negative. Troponin is negative. Chemistries normal. By: Maged Denson MD Time: 07/06 1510 Comment: Repeat troponin is negative. This is reassuring in further decreases the risk of this being ACS. Discussed the potential risks with the patient still and she agrees and has understanding. Wewill discharge the patient home at this time with follow-up with her primary care doc as well as getting her out patient stress test. At this time I do not have a clear etiology for her shortness of b reath however most of the deadly causes have been ruled out. All questions answered. We had an extensive conversation regarding return precautions and need for follow up prior to disposition. By: Maged Denson MD Shortness of breath This note is prepared by Westley Lau acting as a scribe for Maged Denson MD. Signed by Conchis Busch, 11:54 AM 07/06/2018. I, Maged Denson MD, have personally performed the services described in the documentation, reviewed the documentation, as recorded by the scribe in my presence, and it accurately and completely records my words and actions. Any errors in translation of speech to the EMR are related to software and not the clinician. Maged Denson MD 07/06/18 1511 documented in this encounter Miscellaneous Notes * ED Procedure Note - Maged Denson MD - 07/06/2018 11:54 AM CDTAssociated Order(s): ECG 12 lead Procedure ECG 12 lead Date/Time: 07/06/2018 11:54 AM Performed by: Maged Denson MD Authorized by: Maged Denson MD Rate: ECG rate: 77 ECG rate assessment: normal Rhythm: Rhythm: sinus rhythm Ectopy: Ectopy: none QRS: QRS axis: Normal QRS intervals: Normal Conduction: Conduction: abnormal ST segments: ST segments: Normal T waves: T waves: inverted Inverted: V1 and III Other findings: Other findings: poor R wave progression Previous ECG: Previous ECG: Unavailable Interpretation: Interpretation: abnormal Recommended Follow-up: Recommended follow up: PCP follow-up Maged Denson MD 07/06/18 7475 documented in this encounter Plan of Treatment Not on file documented as of this encounter Procedures Procedure Name Priority Date/Time Associated Diagnosis Comments TROPONIN T STAT 07/06/2018 2:37 PM CDT XR CHEST 1 VIEW ED 07/06/2018 12:05 PM CDT EGFR STAT 07/06/2018 11:59 AM CDT DIFFERENTIAL AUTO STAT 07/06/2018 11: 59 AM CDT CBC WITH AUTO DIFFERENTIAL STAT 07/06/2018 11:59 AM CDT APTT STAT 07/06/2018 11:59 AM CDT PROTIME-INR STAT 07/06/2018 11:59 AM CDT D-DIMER, QUANTITATIVE STAT 07/06/2018 11:59 AM CDT TROPONIN T STAT 07/06/2018 11:59 AM CDT COMPREHENSIVE METABOLIC PANEL STAT 07/06/2018 11:59 AM CDT ECG 12-LEAD STAT 07/06/2018 11:50 AM CDT documented in this encounter Results * Troponin T (07/06/2018 2:37 PM CDT) Pathologist [facility] Troponin T <0.01 0.00 - 0.01 ng/mL [facility] ([place]) Comment: Interpretive Data Reference ranges for children <18 years of age have not been established. - > or = 18 years: Serial determinations are recommended for the diagnosis of myocardial infarction. ??Temporal rise and fall are consistent with myocardial infarction when at least one value is above the 99th percentile upper reference limit for troponin assay. ??Journal of the [place] College [employer] 2012;60:1581-98. Current Interpretive Data Last Revised Date: 2017. Blood specimen (specimen) 07/06/2018 2:37 PM CDT 07/06/2018 2:39 PM CDT Narrative [facility] ([place]) - 07/06/2018 2:59 PM CDT us Maged Denson MD LAB BLOOD ORDERABLES Final R esult [facility] ([place]) 1 [facility] Department [place] [address] * XR Chest 1 Vw Portable (07/06/2018 12:05 PM CDT) Anatomical Region Laterality Modality Body, Chest N/A Computed Radiogr aphy 07/06/2018 12:2 7 PM CDT Impressions 07/06/2018 12:29 PM CDT NO ACTIVE DISEASE. Electronically signed by: Gaston Schneider M.D. Narrative 07/06/2018 12:29 PM CDT XR CHEST 1 VIEW HISTORY: Shortness of breath. ??Chest pressure. COMPARISON: 09/09/2008 FINDINGS: There is mild left ventricular prominence the cardiac silhouette. ??Lungs are clear. Procedure Note Gaston Schneider MD - 07/06/2018 XR CHEST 1 VIEW HISTORY: Shortness of breath. Chest pressure. COMPARISON: 09/09/2008 FINDINGS: There is mild left ventricular prominence the cardiac silhouette. Lungs are clear. IMPRESSION: NO ACTIVE DISEASE. Electronically signed by: Gaston Schneider M.D. us Maged Denson MD IMG XR PROCEDURES Final Resu lt * eGFR (07/06/2018 11:59 AM CDT) eGFR 63 mL/min/1.7 3 m2 [facility] ([place]) Comment: Interpretive Data Reference Interval Normal ?>/= 90 mL/min/1.73m2 Mildly decreased* ? 60 - 89 mL/min/1.73m2 Mildly to moderately decreased ?45 - 59 mL/min/1.73m2 Moderately to severely decreased ??30 - 44 mL/min/1.73m2 Severely decreased ?15 - 29 mL/min/1.73m2 Kidney Failure ?< 15 ??mL/min/1.73m2 *Relative to young adult level If -Dominican multiply value by 1.16. Estimated glomerular filtration rate is determined by the CKD-EPI equation recommended by the National Kidney Foundation (KDIGO 2012 Clinical Practice Guideline for the Evaluation and Management of Chronic Kidney Disease. Kidney Intnl Suppl Apr 2012;3:1). The CKD-EPI equation should not be used for patients with unstable renal function and has not been validated in children and those over 70. Current interpretive data was last reviewed 2015. Blood specimen (specimen) 07/06/2018 11:59 AM CDT 07/06/2018 12:01 PM CDT Narrative [facility] ([place]) - 07/06/2018 12:43 PM CDT us Maged Denson MD LAB BLOOD ORDERABLES Final R esult [facility] ([place]) 1 [facility] Department [place] [address] * Differential, auto (07/06/2018 11:59 AM CDT) Neutrophil abs 1.8 1.7 - 6.5 K/cumm [facility] ([place]) Imm gran abs 0.0 0.0 - 0.1 K/cumm [facility] ([place]) Lymphocyte abs 1.3 0.8 - 3.3 K/cumm [facility] ([place]) Monocyte abs 0.3 0.2 - 0.8 K/cumm [facility] ([place]) Eosinophil abs 0.0 0.0 - 0.5 K/cumm [facility] ([place]) Basophil abs 0.0 0.0 - 0.1 K/cumm [facility] ([place]) Neutrophil pct 53.4 % [facility] ([place]) Comment: Interpretive Data Percent cell count reference ranges are not reported, since discordance with absolute values may lead to misinterpretation of CBC data. Current Interpretive Data was last revised on 2017. Imm gran pct 0.3 % [facility] ([place]) Comment: Interpretive Data Percent cell count reference ranges are not reported, since discordance with absolute values may lead to misinterpretation of CBC data. Current Interpretive Data was last revised on 2017. Lymphocyte pct 37.8 % [facility] ([place]) Comment: Interpretive Data Percent cell count reference ranges are not reported, since discordance with absolute values may lead to misinterpretation of CBC data. Current Interpretive Data was last revised on 2017. Monocyte pct 8.5 % [facility] ([place]) Comment: Interpretive Data Percent cell count reference ranges are not reported, since discordance with absolute values may lead to misinterpretation of CBC data. Current Interpretive Data was last revised on 2017. Eosinophil pct 0.0 % [facility] ([place]) Comment: Interpretive Data Percent cell count reference ranges are not reported, since discordance with absolute values may lead to misinterpretation of CBC data. Current Interpretive Data was last revised on 2017. Basophil pct 0.0 % [facility] ([place]) Comment: Interpretive Data Percent cell count reference ranges are not reported, since discordance with absolute values may lead to misinterpretation of CBC data. Current Interpretive Data was last revised on 2017. Blood specimen (specimen) 07/06/2018 11:59 AM CDT 07/06/2018 12:01 PM CDT Narrative [facility] ([place]) - 07/06/2018 12:04 PM CDT Maged Denson MD LAB BLOOD ORDERABLES Final R esult Performing Organization Address City/[facility]/ZIP Co de Phone Number [facility] ([place]) 1 [facility] [place] [address] * aPTT (07/06/2018 11:59 AM CDT) aPTT 27.5 25.0 - 37.0 sec [facility] ([place]) Blood specimen (specimen) 07/06/2018 11:59 AM CDT 07/06/2018 12:01 PM CDT Narrative [facility] ([place]) - 07/06/2018 12:19 PM CDT Maged Denson MD LAB BLOOD ORDERABLES Final R esult [facility] ([place]) 1 [facility] [place] [address] * Protime-INR (07/06/2018 11:59 AM CDT) PT 10.8 9.5 - 13.0 sec [facility] ([place]) INR 0.96 0.90 - 1.20 [facility] ([place]) Comment: Interpretive Data Recommended ranges for Protime INR: 2.0 - 3.0 Most indications for Warfarin therapy (e.g. Treatment of DVT, PE, bioprosthetic valve replacement, prophylaxis venous thrombosis, atrial fibrillation). 2.5 - 3.5 Mechanical mitral valve or dual mechanical mitral and Aortic valve replacement. Current Interpretive Data was last revised on 2014. Blood specimen (specimen) 07/06/2018 11:59 AM CDT 07/06/2018 12:01 PM CDT Narrative [facility] ([place]) - 07/06/2018 12:17 PM CDT Maged Denson MD LAB BLOOD ORDERABLES Final R esult [facility] ([place]) 1 [facility] [place] [address] * Troponin T (07/06/2018 11:59 AM CDT) Troponin T <0.01 0.00 - 0.01 ng/mL [facility] ([place]) Comment: Hemolysis present. ??Results may be affected. Interpretive Data Reference ranges for children <18 years of age have not been established. - > or = 18 years: Serial determinations are recommended for the diagnosis of myocardial infarction. ??Temporal rise and fall are consistent with myocardial infarction when at least one value is above the 99th percentile upper reference limit for troponin assay. ??Journal of the [place] College of Cardiology 2012;60:1581-98. Current Interpretive Data Last Revised Date: 2017. Blood specimen (specimen) 07/06/2018 11:59 AM CDT 07/06/2018 12:01 PM CDT Narrative [facility] ([place]) - 07/06/2018 12:43 PM CDT us Maged Denson MD LAB BLOOD ORDERABLES Final R esult [facility] ([place]) 1 [facility] [place] [address] * (ABNORMAL) D-dimer, quantitative (07/06/2018 11:59 AM CDT) D-dimer <150(L) 150 - 230 ng/mL D-DU [facility] ([place]) Comment: Interpretive Data This D-dimer test is approved by the FDA to exclude suspected PE and DVT in outpatients when the result is <230 ng/mL in conjunction with a pre-test probability score of low or moderate using the Wells criteria. Current Interpretive Data was last revised on 2014. Blood specimen (specimen) 07/06/2018 11:59 AM CDT 07/06/2018 12:01 PM CDT Narrative [facility] ([place]) - 07/06/2018 12:19 PM CDT us Maged Denson MD LAB BLOOD ORDERABLES Final R esult [facility] ([place]) 1 [facility] Department [place] [address] * Comprehensive metabolic panel (07/06/2018 11:59 AM CDT) Sodium 135 135 - 145 mmol/L [facility] ([place]) Potassium, pl 4.9 3.3 - 4.9 mmol/L [facility] ([place]) Comment:Hemolysis present. R esults may be affected. Release results with comment per Meka Ramirez (ER) Chloride 99 97 - 110 mmol/L [facility] ([place]) CO2 24 22 - 32 mmol/L [facility] ([place]) Anion gap 12 2 - 15 mmol/L [facility] ([place]) BUN 25 8 - 25 mg/dL [facility] Creatinine 0.96 0.60 - 1.10 mg/dL [facility] ([place]) Glucose 112 70 - 199 mg/dL [facility] ([place]) Comment: Interpretive Data Fasting glucose >/= 126 [...] interpretive data was last revised 2017. Calcium 9.7 8.5 - 10.3 mg/dL [facility] ([place]) Bilirubin, total 0.3 0.1 - 1.2 mg/dL [facility] ([place]) Protein, pl 7.2 6.5 - 8.5 g/dL [facility] ([place]) Albumin 4.2 3.5 - 5.0 g/dL [facility] ([place]) Alk phos 97 40 - 130 Units/L [facility] ([place]) ALT 15 7 - 45 Units/L [facility] ([place]) Comment: Hemolysis present. ??Results may be affected. Moderately Hemolyzed Specimen AST 28 10 - 45 Units/L [facility] ([place]) Comment: Hemolysis present. ??Results may be affected. Moderately Hemolyzed Specimen Blood specimen (specimen) 07/06/2018 11:59 AM CDT 07/06/2018 12:01 PM CDT Narrative [facility] ([place] - 07/06/2018 12:43 PM CDT us Maged Denson MD LAB BLOOD ORDERABLES Final R esult [facility] ([place]) 1 [facility] Department [place] [address] * (ABNORMAL) CBC with auto differential (07/06/2018 11:59 AM CDT) WBC 3.4(L) 3.8 - 9.9 K/cumm [facility] ([place]) Hgb 13.1 11.9 - 15.5 g/dL [facility] ([place]) Hct 40.3 35.6 - 45.5 % [facility] ([place]) Plt 221 150 - 400 K/cumm [facility] ([place]) MPV 9.7 9.1 - 12.3 fL [facility] ([place]) RBC 4.43 3.90 - 5.20 M/cumm [facility] ([place]) MCV 91.0 81.3 - 96.4 fL [facility] ([place]) MCH 29.6 27.1 - 33.3 pg [facility] ([place]) MCHC 32.5 32.3 - 35.7 g/dL [facility] ([place]) RDW CV 13.6 11.1 - 14.9 % [facility] ([place]) RDW SD 45.7 35.7 - 48.1 fL [facility] ([place]) NRBC abs 0.00 0.00 - 0.01 K/cumm [facility] ([place]) Blood specimen (specimen) 07/06/2018 11:59 AM CDT 07/06/2018 12:01 PM CDT Narrative [facility] ([place]) - 07/06/2018 12:04 PM CDT us Maged Denson MD LAB BLOOD ORDERABLES Final R esult Performing Organization Address City/[facility] Co de Phone Number [facility] ([place]) 1 [facility] Department [place] [address] * ECG 12 lead (07/06/2018 11:50 AM CDT) 07/06/2018 11:5 0 AM CDT Narrative [facility] - 07/06/2018 2:30 PM CDT Vent Rate: 77 bpm RR Interval: 770 msec NE Interval: 183 msec QRS Duration: 88 msec QT Interval: 389 msec QTC Interval: 421 msec P-R-T David: 46 - -7 - 7 degrees SINUS RHYTHM LOW QRS VOLTAGE IN PRECORDIAL LEADS ??[QRS DEFLECTION < 1.0 mV IN CHEST LEADS] POSSIBLE RIGHT VENTRICULAR CONDUCTION DELAY ??[RSR (QR) IN V1/V2] BORDERLINE ECG Electronically Signed By: Dr Jarad Manzo us Maged Denson MD ECG ORDERABLES Final Result Performing Organization Address [facility]/ZIP Co de Phone Number [facility] [facility] documented in this encounter Visit Diagnoses Diagnosis Shortness of breath- Primary documented in this encounter Administered Medications Inactive Administered Medications - up to 3 most recent administrations Medication Order MAR Action Action Date Dose Rate Site aspirin chewable tablet 324 mg 324 mg, oral, Once, On Wed07/06/18 at 1151, For 1 dose, Indications: Acute Coronary SyndromeIndications:Acute Coronary Syndrome Given 07/06/2018 12:06 PM CDT 324 mg sodium chloride 0.9% bolus 1,000 mL 1,000 mL, intravenous, at 1,000 mL/hr, Administer over 1 Hours, Once, On Wed07/06/18 at 1151, For 1 dose New Bag 07/06/2018 12:06 PM CDT 1,000 mL 1000 mL/hr documented in this encounter Active and Recently Administered Medications Times are shown in CDT. Scheduled Medication Order 07/04/2018 07/05/2018 07/06/2018 aspirin chewable tablet 324 mg (COMPLETED) 324 mg, oral, Once, On Wed07/06/18 at 1151, For 1 dose, Indications: Acute Coronary Syndrome 1206 (Given - Provid er: Liliam Rivas RN) sodium chloride 0.9% bolus 1,000 mL (COMPLETED) 1,000 mL, intravenous, at 1,000 mL/hr, Administer over 1 Hours, Once, On Wed07/06/18 at 1151, For 1 dose 1206 (New Bag - Prov ider: Liliam Rivas RN)1320 (Stopped - Provider: Kourtney Ramirez RN) documented in this encounter Orders Nursing Count Last Ordered Date First Orde red Date CARDIO RESPIRATORY MONITORING 07/06/2018 CONTINUOUS PULSE OXIMETRY 1 07/06/2018 IV Count Last Ordered Date First Orde red Date INSERT PERIPHERAL IV 1 07/06/2018 documented in this encounter Care Teams Director Of Intelligence Relationship Specialty Start Date End Date Betty Alonso MD [address] [place] [address] PCP - General Family Medicine 10/07/17 04/14/22 documented as of this encounter
--- OUTSIDE RECORDS SUMMARY | 2024-04-13 08:34 | XMS_ITS | Encounter Summary ---
Author Organization [facility] Healthcare Address [address] [place] [address] Care Team Providers Care Mumps Developer Name Role Phone Bhargav Wilkes MD Primary Care Provider [phone] Reason for Referral * MRI/CAT/PET Scan (Routine) - Closed Specialty Diagnoses / Procedures Referred By Contac t Referred To Contact Radiology Diagnoses Cervicalgia Cervical spondylosis with radiculopathy Tingling sensation Bilateral leg pain Procedures MRI Thoracic Spine WO Contrast Eloise Syed PA [address] [place] [address] Phone: tel: fax: [address] [phone] Referral ID Status Reason Start Date Expiration Date Visits Re quested Visits Authorized [id number] Closed 05/26/2022 06/25/2023 1 1 ETICS AND TOILETRIES SALESPERSON Reason for Visit * MRI/CAT/PET Scan (Routine) - Closed Specialty Diagnoses / Procedures Referred By Contac t Referred To Contact Radiology Diagnoses Cervicalgia Cervical spondylosis with radiculopathy Tingling sensation Bilateral leg pain Procedures MRI Thoracic Spine WO Contrast Eloise Syed PA [address] [place] [address] Phone: tel: fax: [address] [phone] Referral ID Status Reason Start Date Expiration Date Visits Re quested Visits Authorized [id number] Closed 05/26/2022 06/25/2023 1 1 Encounter Details Date Type Department Care Team (Latest Contact Info) Description 06/10/2022 6:20 PM COSMETICS AND TOILETRIES SALESPERSON - 06/10/2022 11:59 PM COSMETICS AND TOILETRIES SALESPERSON Hospital Encounter [facility] [address] [place] [address] Cervicalgia; Cervical spondylosis with radiculopathy; Tingling sensation; Bilateral leg pain Discharge Disposition: Discharge to home or self [...] on file Legal Sex Female 1:00 AM COSMETICS AND TOILETRIES SALESPERSON Gender Identity Not on file Sexual Orientation [...] (2.5 mg total) by mouth nightly 12/24/2021 fluconazole (DIFLUCAN) 150 mg tablet Take 1 [...] 1 tablet (40 mg total) by mouth automatic thread winder before breakfast 04/17/2021 4 potassium &magnesium aspartate [...] Name Priority Date/Time Associated Diagnosis Comments MRI THORACIC SPINE WO CONTRAST Schedule Routine, Read Routine (OP Routine) 06/10/2022 8:02 PM COSMETICS AND TOILETRIES SALESPERSON Cervicalgia Cervical spondylosis with radiculopathy Tingling sensation Bilateral leg pain documented in this encounter Results * MRI Thoracic Spine WO Contrast (06/10/2022 8:02 PM COSMETICS AND TOILETRIES SALESPERSON) Anatomical Region Laterality Modality Spine N/A Magnetic Resonan ce 06/11/2022 8:02 AM COSMETICS AND TOILETRIES SALESPERSON Narrative 06/11/2022 9:42 AM COSMETICS AND TOILETRIES SALESPERSON EXAM DESCRIPTION: ?? MRI CERVICAL SPINE WO [...] AM T: ??06/11/2022 9:42 AM Report ID: [id number] Reading Location: ??[id number] Procedure Note Austen Mendes MD - 06/11/2022 [...] Austen Mendes M.D. VAN: VAN Report ID: [id number] Reading Location: [id number] Eloise AGUAYO IMG MRI PROCEDURES Final Result documented in this encounter Visit Diagnoses Diagnosis Cervicalgia Cervical spondylosis with radiculopathy Cervical spondylosis with myelopathy Tingling sensation Disturbance of skin sensation Bilateral leg pain Pain in soft tissues of limb documented in this encounter Care Teams Mumps Developer Relationship Specialty Start Date End Date Bhargav Wilkes MD [address] [place] [address] PCP - General Family Medicine 04/15/22 documented as of this encounter
--- OUTSIDE RECORDS SUMMARY | 2024-04-13 08:34 | XMS_ITS | Encounter Summary ---
Author Organization [facility] Healthcare Address [address] [place] [address] Care Team Providers Care Catering Driver Name Role Phone Betty Alonso MD Primary Care Provider [phone] Encounter Details Date Type Department Care Team (Late st Contact Info) Description 01/17/2018 9:45 AM CDT - 01/17/2018 10:45 AM CDT Surgery [facility] [address] [place] [address] [place] [address] [address] RIGHT KNEE ARTHROSCOPIC PARTIAL MEDIAL MENISCECTOMY Surgery Details Date/Time Status Location OR Service Patient Class Case Class Case Type Trauma Case? 01/17/2018 9:45 AM Posted [facility] OPERATING ROOM OR 3 Orthopaedics Outpatient Elective Panel 1 Procedure LRB Anes Op Region Wound Class Comments RIGHT KNEE ARTHROSCOPIC PART IAL MEDIAL MENISCECTOMY Right Choice Knee Class I - Clean Surgeon Surgeon Role Service Panel Sanya Anand MD Primary Orthopaedics 1 Armani Sosa MD Resident - Assisting Orthopaedics 1 Special Needs 1 HOUR CASE documented in this encounter Social History Tobacco Use Types Packs/Day Years Used Date Smoking Tobacco: Former Cigarettes 0.5 7.7 1 981 - 01/11/1988 Smokeless Tobacco: Never Comments Unknown Sex and Gender Information Value Date Recorded Sex Assigned at Not on file Legal Sex Female 1:00 AM SHOER Gender Identity Not on file Sexual Orientation Not on file documented as of this encounter Last Filed Vital Signs Vital Sign Reading Time Taken Comments Blood Pressure 124/72 01/17/2018 10:40 AM CDT Pulse 72 01/17/2018 10:45 AM CDT Temperature 37 ??C (98.6 ??F) 01/17/2018 10:40 AM CDT Respiratory Rate 14 01/17/2018 10:45 AM CDT Oxygen Saturation 98% 01/17/2018 10:45 AM CDT Inhaled Oxygen Concentration - - Weight [...] meniscus tear of right knee, subsequent encounter [S83.981D] Procedure: Procedure(s): RIGHT KNEE ARTHROSCOPIC PARTIAL MEDIAL [...] or increasing redness around incision, please call [phone]. Follow-Up Appointment: You are scheduled to follow-up with Dr. Anand on 01/28/18 at 11:10 am at: [facility] [id number] [place] [address] If you need to change this appointment, please call [phone] Anand's certified nursing assistant or call the scheduling office at [phone]. documented in this encounter Medications at Time [...] this encounter H&P Notes * Crystal Rivas, CLAM SORTER - 01/17/2018 8:07 AM CDT Outpatient Pre-Procedure History and Physical Subjective Patient is a 62 y.o. female with chief complaint of right knee pain. Indication For Procedure: Pre-op Diagnosis * Acute medial meniscus tear of right knee, subsequent encounter [T59.947R] Planned Procedure RIGHT ARTHROSCOPY KNEE, PARTIAL MEDIAL [...] meniscus tear of right knee, subsequent encounter [S83.216D] Postoperative Diagnosis: Post-op Diagnosis * Acute medial meniscus tear of right knee, subsequent encounter [S83.336D] Procedure: Procedure(s): RIGHT KNEE ARTHROSCOPIC PARTIAL MEDIAL [...] at bedside. * Perioperative Nursing Note - Cookei Mckeon RN - 01/10/2018 3:51 PM CDT Spoke with Dr. Torres regarding possible history of [place]. No further evaluation needed and ok for patient to have surgery here per Dr. Torres. * Pre-Procedure Instructions - Cookie Mckeon RN - 01/10/2018 3:42 PM CDT Directions to facility Bring glass/contact case Bring pillows. Patient has ice packs for home. Remove make-up, perfume, lipstick and nail kiswahili. Shower the night before and morning of [...] Needs 1 HOUR CASE POCT PREOP SCREEN (KDB-FL-NHE-BUN-CR- HBG-HCT) Routine Gen Lab 01/17/2018 8:16 AM CDT documented in this encounter Results * POCT Preop screen (svqjw-Ip-Tkx-ELS-Xn-Okn-Hct) (01/17/2018 8:16 AM CDT) Pathologist [facility] K POC 4.0 3.3 - 4.9 mmol/L [facility] Blood specimen (specimen) 01/17/2018 8:16 AM CDT 01/17/2018 8:16 AM CDT Narrative [facility] - 01/17/2018 9:23 AM CDT us Sanya Anand MD LAB POCT ORDERABLES - DE VICE Final Result [facility] Department [place] [address] documented in this encounter Visit Diagnoses Diagnosis Acute medial meniscus tear of right knee- Primary Acute medial meniscus tear of right knee, subsequent encounter documented in this encounter Admitting Diagnoses Diagnosis Acute medial meniscus tear of right knee documented in this encounter Administered Medications Inactive Administered Medications - up to 3 most recent administrations Medication Order MAR Action Action Date Dose Rate Site bupivacaine-EPINEPHrine (MARCAINE with EPI) 0.5 %-1:200,000 preservative free injection As needed, Starting on 01/17/18 at 1031, Intra-Op Given 01/17/2018 10:31 AM CDT 20 mL Surgical Site HYDROcodone-acetaminophe n (NORCO) 5-325 mg per tablet 1 tablet [...] 01/17/2018 9:29 AM CDT 30 mL/hr 30 mL/hr New Bag 01/17/2018 8:18 AM CDT 30 mL/hr 30 mL/hr Le ft Forearm Lactated Ringer's (LR) infusion 125 mL/hr, intravenous, Continuous, Starting on Wed01/17/18 at 1115, Phase I New Bag 01/17/2018 10:40 AM CDT 125 mL/hr 125 mL/hr Lactated Ringer's (LR) irrigation As needed, Starting on Wed01/17/18 at 1031, Intra-Op Given 01/17/2018 10:31 AM CDT 6,000 mL Surgical Site documented in this encounter Discontinued Medications Medication [...] Crystal Mcghee CRNA)1040 (Stopped - Provider: Jocelin Mata RN) Lactated Ringer's (LR) infusion 125 mL/hr, intravenous, Continuous, Starting on Wed01/17/18 at 1115, Phase I 1040 (New Bag - Prov ider: Jocelin Mata RN)1200 (Stopped - Provider: Jocelin Mata RN) PRN Medication Order 01/15/2018 01/16/2018 01/17/2018 [...] Use as 1st line for Inpatients at [facility].?Use Use as second line for OC [...] mL, intra-catheter, As needed, line care, Keep John Day Block IV Saline lock open., Starting on 01/17/18 at 0746, Pre-Op, Flush volume based on line type and size. Flush before and after each use. , Indications: Flushing documented in this encounter Orders Medications Ordered That Sigifredo ht Not Have Been Administered Count Last Ordered Date First Ordered Date acetaminophen (TYLENOL) tablet 1,000 mg 1 1 ceFAZolin (ANCEF) 2000 mg in 50 mL dextrose (premix) 1 01/17/2018 diphenhydrAMINE (BENADRYL) i njection 12.5 mg 1 01/17/2018 fentaNYL (SUBLIMAZE) preserv ative free syringe 25 mcg 1 01/17/2018 HYDROmorphone (DILAUDID) injection 0.2 mg 1 01/17/2018 labetalol (NORMODYNE,TRANDAT E) injection 5 mg 1 01/17/2018 meperidine (DEMEROL) preserv ative free injection 12.5 mg 1 01/17/2018 ondansetron (ZOFRAN) injection 4 mg 1 01/17 scopolamine patch 72 hour 1 patch 1 018 sodium chloride 0.9% flush 0.5-20 mL 1 11/2017 documented in this encounter Care Teams Catering Driver Relationship Specialty Start Date End Date Betty Alonso MD [address] [place] [address] PCP - General Family Medicine 10/07/17 04/14/22 documented as of this encounter
--- OUTSIDE RECORDS SUMMARY | 2024-04-13 08:34 | XMS_ITS | Encounter Summary ---
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
--- OUTSIDE RECORDS SUMMARY | 2024-04-13 08:34 | XMS_ITS | Encounter Summary ---
Author Organization [facility] Healthcare Address [address] [place] [address] Care Team Providers Care Sprinkler Worker Name Role Phone Bhargav Wilkes MD Primary Care Provider [phone] Reason for Referral * MRI/CAT/PET Scan (Routine) - Closed Specialty Diagnoses / Procedures Referred By Contac t Referred To Contact Radiology Diagnoses Bilateral leg pain Numbness Cervical spondylosis with radiculopathy Procedures MRI Lumbar Spine WO Contrast Eloise Syed PA [address] [place] [address] Phone: tel: fax: [address] [phone] Referral ID Status Reason Start Date Expiration Date Visits Re quested Visits Authorized [id number] Closed 05/26/2022 06/25/2023 1 1 MASTER Reason for Visit * MRI/CAT/PET Scan (Routine) - Closed Specialty Diagnoses / Procedures Referred By Contac t Referred To Contact Radiology Diagnoses Bilateral leg pain Numbness Cervical spondylosis with radiculopathy Procedures MRI Lumbar Spine WO Contrast Eloise Syed PA [email or web address] [place] [address] Phone: tel: fax: [address] [phone] Referral ID Status Reason Start Date Expiration Date Visits Re quested Visits Authorized [id number] Closed 05/26/2022 06/25/2023 1 1 Encounter Details Date Type Department Care Team (Latest Contact Info) Description 06/10/2022 6:20 PM SHIPMASTER - 06/10/2022 11:59 PM SHIPMASTER Hospital Encounter [facility] [address] [place] [address] Bilateral leg pain; Numbness; Cervical spondylosis with radiculopathy Discharge Disposition: Discharge [...] on file Legal Sex Female 1:00 AM SHIPMASTER Gender Identity Not on file Sexual Orientation [...] 1 tablet (40 mg total) by mouth accuracy expert before breakfast 04/17/2021 4 potassium &magnesium aspartate [...] Schedule Routine, Read Routine (OP Routine) 06/10/2022 7:32 PM SHIPMASTER Bilateral leg pain Numbness Cervical spondylosis with radiculopathy documented in this encounter Results * MRI Lumbar Spine WO Contrast (06/10/2022 7:32 PM SHIPMASTER) Anatomical Region Laterality Modality Spine N/A Magnetic Resonan ce 06/11/2022 8:02 AM SHIPMASTER Narrative 06/11/2022 9:42 AM SHIPMASTER EXAM DESCRIPTION: ?? MRI CERVICAL SPINE WO [...] AM T: ??06/11/2022 9:42 AM Report ID: [id number] Reading Location: ??[id number] Procedure Note Austen Mendes MD - 06/11/2022 [...] Austen Mendes M.D. VAN: VAN Report ID: [id number] Reading Location: [id number] us Eloise AGUAYO IMG MRI PROCEDURES Final Result documented in this encounter Visit Diagnoses Diagnosis Bilateral leg pain Pain in soft tissues of limb Numbness Disturbance of skin sensation Cervical spondylosis with radiculopathy Cervical spondylosis with myelopathy documented in this encounter Care Teams Sprinkler Worker Relationship Specialty Start Date End Date Bhargav Wilkes MD [address] [place] [address] PCP - General Family Medicine 04/15/22 documented as of this encounter
--- OUTSIDE RECORDS SUMMARY | 2024-04-13 08:34 | XMS_ITS | Encounter Summary ---
Author Organization [facility] Healthcare Address [address] [place] [address] Care Team Providers Care Bowling Or Skating Front Desk Clerk Name Role Phone Betty Alonso MD Primary Care Provider [phone] Reason for Referral * Diagnostic Imaging (Routine) - Closed Specialty Diagnoses / Procedures Referred By Darlene hodgson Referred To Contact Diagnoses Right knee pain, unspecified chronicity Procedures XR Knee Right 3 View Richard Branch PA Phone: tel: fax: [facility] Referral ID Status Reason Start Date Expiration Date Visits Re quested Visits Authorized [id number] Closed 10/15/2017 04/26/2019 1 1 Reason for Visit * Diagnostic Imaging (Routine) - Closed Specialty Diagnoses / Procedures Referred By Darlene hodgson Referred To Contact Diagnoses Right knee pain, unspecified chronicity Procedures XR Knee Right 3 View Richard Branch PA Phone: tel: fax: [facility] Referral ID Status Reason Start Date Expiration Date Visits Re quested Visits Authorized [id number] Closed 10/15/2017 04/26/2019 1 1 Encounter Details Date Type Department Care Team (Latest Contact Info) Description 10/15/2017 9:10 AM CDT - 10/15/2017 11:59 PM CDT Hospital Encounter [facility] [address] [place] [address] Nico Ramirez MD [address] [place] [address] [place] [address] [facility] [address] [place] [address] Right knee pain, unspecified chronicity Discharge Disposition: Discharge to home or self care Social History Tobacco Use Types Packs/Day Years Used Date Smoking Tobacco: Never Smokeless Tobacco: Never Comments Unknown Sex and Gender Information Value Date Recorded Sex Assigned at Not on file Legal Sex Female 1:00 AM COMMODITIES CLERK Gender Identity Not on file Sexual Orientation Not on file documented as of this encounter Medications at Time of Discharge cholecalciferol (VITAMIN D-3) 5,000 unit capsule Take 5,000 Units by mouth daily. 04/15/2022 cyanocobalamin 2,000 mcg tablet Take 2,000 mcg by mouth daily. 04/15/2022 lisinopril (PRINIVIL,ZESTRIL ) 20 mg tablet Take 20 mg by mouth daily. 01/10/2018 lisinopril-hydroC HLOROthiazide (PRINZIDE,ZESTORE TIC) 20-12.5 mg per tabletIndications :hypertension TK 1 T PO ONCE A DAY 6 09/30/2017 04/15/2022 loratadine (CLARITIN) 10 mg tablet TK 1 T PO QD 1 07/25/2017 04/15/2022 omeprazole (PriLOSEC) 40 mg capsule Take 40 mg by mouth daily. 04/15/2022 venlafaxine XR (EFFEXOR-XR) [...] Date/Time Associated Diagnosis Comments XR KNEE RIGHT 3 VIEWS Schedule Routine, Read Routine (OP Routine) 10/15/2017 9:23 AM CDT Right knee pain, unspecified chronicity documented in [...] Visit Diagnoses Diagnosis Right knee pain, unspecified chronicity documented in this encounter Care Teams Bowling Or Skating Front Desk Clerk Relationship Specialty Start Date End Date Betty Alonso MD [address] [place] [address] PCP - General Family Medicine 10/07/17 04/14/22 documented as of this encounter
--- OUTSIDE RECORDS SUMMARY | 2024-04-13 08:35 | XMS_ITS | Encounter Summary ---
Author Organization [facility] Healthcare Address [address] [place] [address] Care Team Providers Care Breakfast Manager Name Role Phone Unavailable Primary Care Provider Unavailabl e Encounter Details Date Type Department Care Team (Late st Contact Info) Description 10/02/2008 5:18 PM CDT - 10/02/2008 11:59 PM CDT Hospital Encounter [facility] David Swartz MD [address] [place] [address] Backache Social History Tobacco Use Types Packs/Day Years Used Date Smoking Tobacco: Never Assessed Comments Unknown Sex and Gender Information Value Date Recorded Sex Assigned at Not on file Legal Sex Female 1:00 AM GIN OPERATOR Gender Identity Not on file Sexual Orientation Not on file documented as of this encounter Plan of Treatment Not on file documented as of this encounter Visit Diagnoses Diagnosis Backache Unspecified backache documented in this encounter
--- OUTSIDE RECORDS SUMMARY | 2024-04-13 08:35 | XMS_ITS | Encounter Summary ---
Author Organization [facility] Healthcare Address [address] [place] [address] Care Team Providers Care Merchandise Flow Team Member Name Role Phone Unavailable Primary Care Provider Unavailabl e Encounter Details Date Type Department Care Team (Latest Contact Info) Description 09/09/2008 7:00 PM CDT - 09/10/2008 6:30 PM CDT Hospital Encounter [facility] Yonas Mcfarlane Other chest pain; Anxiety state; Myalgia and myositis; Essential hypertension; Coronary atherosclerosis of [place] coronary artery; Other depressive disorder; Personal history of tobacco use, presenting hazards to health Social History Tobacco Use Types Packs/Day Years Used Date Smoking Tobacco: Never Assessed Comments Unknown Sex and Gender Information Value Date Recorded Sex Assigned at Not on file Legal Sex Female 1:00 AM BODY WORKER Gender Identity Not on file Sexual Orientation Not on file documented as of this encounter Plan of Treatment Not on file documented as of this encounter Visit Diagnoses Diagnosis Other chest pain Anxiety state Anxiety state, unspecified Myalgia and myositis Unspecified myalgia and myositis Essential hypertension Unspecified essential hypertension Coronary atherosclerosis of [place] coronary artery Other depressive disorder Personal history of tobacco use, presenting hazards to health documented in this encounter
--- OUTSIDE RECORDS SUMMARY | 2024-04-13 08:35 | XMS_ITS | Encounter Summary ---
Author Organization [facility] Healthcare Address [address] [place] [address] Care Team Providers Care Nuclear Plant Operator Name Role Phone Unavailable Primary Care Provider Unavailabl e Encounter Details Date Type Department Care Team (Late st Contact Info) Description 12/03/2010 12:01 AM CDT - 12/03/2010 11:59 PM CDT Hospital Encounter [facility] Naresh Larios Jr., MD [address] [place] [address] Social History Tobacco Use Types Packs/Day Years Used Date Smoking Tobacco: Never Assessed Comments Unknown Sex and Gender Information Value Date Recorded Sex Assigned at Not on file Legal Sex Female 1:00 AM NURSE TECH Gender Identity Not on file Sexual Orientation Not on file documented as of this encounter Plan of Treatment Not on file documented as of this encounter Visit Diagnoses Not on filedocumented in this encounter
--- OUTSIDE RECORDS SUMMARY | 2024-04-13 08:35 | XMS_ITS | Encounter Summary ---
Author Organization [facility] Healthcare Address [address] [place] [address] Care Team Providers Care Dye Reel Operator Helper Name Role Phone Unavailable Primary Care Provider Unavailabl e Encounter Details Date Type Department Care Team (Latest Contact Info) Description 10/10/2013 5:21 PM CDT - 10/10/2013 11:59 PM CDT Hospital Encounter [facility] Naresh Patton Jr., MD [id number] [place] [address] Lumbosacral spondylosis without myelopathy; Degeneration of lumbar or lumbosacral intervertebral disc; Displacement of lumbar intervertebral disc without myelopathy Social History Tobacco Use Types Packs/Day Years Used Date Smoking Tobacco: Never Assessed Comments Unknown Sex and Gender Information Value Date Recorded Sex Assigned at Not on file Legal Sex Female 1:00 AM CONTACT LENS CUTTER Gender Identity Not on file Sexual Orientation Not on file documented as of this encounter Plan of Treatment Not on file documented as of this encounter Procedures Procedure Name Priority Date/Time Associated Diagnosis Comments MRI LUMBAR SPINE W CONTRAST Routine 10/10/2013 5:55 PM CDT documented in this encounter Results * MRI Lumbar Spine W Contrast (10/10/2013 5:55 PM CDT) Anatomical Region Laterality Modality Spine N/A Magnetic Resonan ce 10/10/2013 5:55 PM CDT Narrative 10/12/2013 4:36 PM CDT MRI LUMBAR SPINE ??Acc#: ??[id number] DATE OF EXAM: ??Oct ??2013 CLINICAL HISTORY: Low back pain. ??Bilateral leg numbness. ??Symptoms for three or more years. ??No previous injury or surgery to lumbar area. RESULT: Sagittal T1 and T2; axial T1 and T2 images of the lumbar spine were obtained. ??Comparison is made to exam on 03 December 2010. Mild levoscoliosis is present. ??Alignment is otherwise normal. ??The patient has six vertebrae with lumbar- type transverse processes. ??The L4-L5 disc space is severely narrowed and is narrower than on the last exam. ??Milder narrowing is seen at L3-L4 and similar to the previous exam. ??Some disc desiccation is seen at all levels, with relative sparing at L5-L6. ??There is some reactive change in marrow on either side of the narrowed L4-L5 disc space along with some marginal spurring anteriorly. Mild disc bulging is present at L2-L3 through L5-L6. ??Minimal disc bulging is present at L6-S1. ??Facet degenerative changes are mild to moderate bilaterally from L3-L4 through L5-L6. ??Only mild ligamentum flavum thickening is seen. ??No significant central canal or foraminal stenosis occurs. ??No intraspinal, perispinal or paravertebral mass is seen. IMPRESSION: 1. SIX LUMBAR-TYPE VERTEBRAE. 2. PROGRESSION OF L4-L5 AND L3-L4 DISC SPACE NARROWING SINCE 03 DECEMBER 2010. 3. LEVEL PREVIOUSLY DESCRIBED L3-L4 WITH RIGHT POSTEROLATERAL DISC HERNIATION IS ACTUALLY THE L4-L5 LEVEL. ??THE DISC APPEARS MORE DIFFUSELY BULGING RATHER THAN FOCALLY PROTRUDING POSTEROLATERALLY ON THE RIGHT. 4. MINIMAL TO MILD DISC BULGING DIFFUSELY IN LUMBAR SPINE WITHOUT DISCRETE DISC HERNIATION. 5. MILD TO MODERATE FACET OSTEOARTHRITIS DIFFUSELY IN LUMBAR SPINE WITHOUT SIGNIFICANT ENCROACHMENT. 6. EXCEPT FOR SOME PROGRESSION OF DEGENERATIVE DISC DISEASE AT L3-L4 AND L4-L5, NO SIGNIFICANT CHANGE SINCE 03 DECEMBER 2010. Interpreting Physician: ??DR SERGE ALFREDO M.D. ??Read on: ??Reyes ??2013 9:54A Transcribed by: ??surinder ??On: Oct ??2 2013 10:23A Approved Electronically by: ??SAYDA Ashraf, DR VALENTINE ??on: ??Reyes ??3 2013 4:36P Ordering DR: NARESH PATTON Attending DR: NARESH PATTON Procedure Note Provider, MD Darion - 08/05/2016 MRI LUMBAR SPINE Acc#: [id number] DATE OF EXAM: Oct 10 2013 CLINICAL HISTORY: Low back pain. Bilateral leg numbness. Symptoms for three or moreyears. No previous injury or surgery to lumbar area. RESULT: Sagittal T1 and T2; axial T1 and T2 images of the lumbar spine wereobtained. Comparison is made to exam on 03 December 2010. Mildlevoscoliosis is present. Alignment is otherwise normal. The patient hassix vertebrae with lumbar-type transverse processes. The L4-L5 disc spaceis severely narrowed and is narrower than on the last exam. Mildernarrowing is seen at L3-L4 and similar to the previous exam. Some discdesiccation is seen at all levels, with relative sparing at L5-L6. Thereis some reactive change in marrow on either side of the narrowed L4-L5disc space along with some marginal spurring anteriorly. Mild disc bulgingis present at L2-L3 through L5-L6. Minimal disc bulging is present atL6-S1. Facet degenerative changes are mild to moderate bilaterally fromL3-L4 through L5-L6. Only mild ligamentum flavum thickening is seen. Nosignificant central canal or foraminal stenosis occurs. No intraspinal,perispinal or paravertebral mass is seen. IMPRESSION: 1. SIX LUMBAR-TYPE VERTEBRAE. 2. PROGRESSION OF L4-L5 AND L3-L4 DISC SPACE NARROWING SINCE November2010. 3. LEVEL PREVIOUSLY DESCRIBED L3-L4 WITH RIGHT POSTEROLATERAL DISCHERNIATION IS ACTUALLY THE L4-L5 LEVEL. THE DISC APPEARS MORE DIFFUSELYBULGING RATHER THAN FOCALLY PROTRUDING POSTEROLATERALLY ON THE RIGHT. 4. MINIMAL TO MILD DISC BULGING DIFFUSELY IN LUMBAR SPINE WITHOUT DISCRETEDISC HERNIATION. 5. MILD TO MODERATE FACET OSTEOARTHRITIS DIFFUSELY IN LUMBAR SPINE WITHOUTSIGNIFICANT ENCROACHMENT. 6. EXCEPT FOR SOME PROGRESSION OF DEGENERATIVE DISC DISEASE AT L3-L4 ANDL4-L5, NO SIGNIFICANT CHANGE SINCE 03 DECEMBER 2010. Interpreting Physician: DR SERGE ALFREDO M.D. 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
--- OUTSIDE RECORDS SUMMARY | 2024-04-13 08:35 | XMS_ITS | Encounter Summary ---
Author Organization [facility] Healthcare Address [address] [place] [address] Care Team Providers Care Organizational Consultant Name Role Phone Unavailable Primary Care Provider Unavailabl e Encounter Details Date Type Department Care Team (Late st Contact Info) Description 10/08/2008 12:01 AM CDT - 10/08/2008 11:59 PM CDT Hospital Encounter [facility] David Swartz MD [address] [place] [address] Social History Tobacco Use Types Packs/Day Years Used Date Smoking Tobacco: Never Assessed Comments Unknown Sex and Gender Information Value Date Recorded Sex Assigned at Not on file 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
--- OUTSIDE RECORDS SUMMARY | 2024-04-13 08:35 | XMS_ITS | Encounter Summary ---
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
--- OUTSIDE RECORDS SUMMARY | 2024-04-13 08:39 | XMS_ITS | Encounter Summary ---
Author Organization [facility] Address [address] [place] [address] Care Team Providers Care Gold Miner Blasting Name Role Phone Bhargav Wilkes MD Primary Care Provider Reason for Visit * Reason Onset Date Comments Information 09/22/2023 Encounter Details Date Type Department Care Team (Late st Contact Info) Description 09/22/2023 Telephone [facility] Physical Med and Rehab - [facility] [address] [place] [address] [place] [address] [place] [address] Information Social History Tobacco Use Types Packs/Day Years Used Date Smoking Tobacco: Former Cigarettes 0.5 5 1 975 - 1980 Smokeless Tobacco: Never Alcohol Use Standard Drinks/Week Comments Never 0 (1 standard drink = 0.6 oz pur e alcohol) Sex and Gender Information Value Date Recorded Sex Assigned at Not on file Gender Identity Not on file Sexual Orientation Not on file documented as of this encounter Miscellaneous Notes * Telephone Encounter - Lindsey Barillas - 09/22/2023 1:11 PM CDT Hailee states she does not feel that palliative care is a good fit for her needs. She feels her provider was more focused on her grief and anger than her leg pain. documented in this encounter Plan of Treatment Upcoming Encounters Date Type Department Care Team (Late st Contact Info) Description 08/24/2024 11:00 AM CDT Video Visit [facility] Physical Med and Rehab - Rehab [facility] [address] [place] [phone] [place] [address] [place] [address] documented as of this encounter Visit Diagnoses Not on filedocumented in this encounter Care Teams Gold Miner Blasting Relationship Specialty Start Date End Date Bhargav Wilkes MD [address] [place] [phone] PCP - General Family Practice 05/07/22 documented as of this encounter
--- OUTSIDE RECORDS SUMMARY | 2024-04-13 08:39 | XMS_ITS | Encounter Summary ---
Author Organization [facility] Address [address] [place] [address] Care Team Providers Care Defense Travel Administrator Name Role Phone Chung Bhargav Peck MD Primary Care Provider Encounter Details Date Type Department Care Team (Late st Contact Info) Description 11/25/2023 Abstract [facility] Physical Med and Rehab - [facility] [address] [place] [phone] [place] [address] [place] [address] Social History Tobacco Use Types Packs/Day Years [...] as of this encounter Plan of Treatment Upcoming Encounters Date Type Department Care Team (Late st Contact Info) Description 08/24/2024 11:00 AM CDT Video Visit [facility] Physical Med and Rehab - [facility] [address] [place] [phone] [place] [address] [place] [address] documented as of this encounter Visit Diagnoses Not on filedocumented in this encounter Care Teams Defense Travel Administrator Relationship Specialty Start Date End Date Bhargav Wilkes MD [address] [place] [phone] PCP - General Family Practice 05/07/22 documented as of this encounter
--- OUTSIDE RECORDS SUMMARY | 2024-04-13 08:39 | XMS_ITS | Encounter Summary ---
Author Organization [facility] Address [address] [place] [address] Care Team Providers Care Seismic Engineer Name Role Phone Bhargav Wilkes MD Primary Care Provider Encounter Details Date Type Department Care Team (Late st Contact Info) Description 01/11/2024 External Device Data [facility] ABSTRACTION Provider, Abstract NO ADDRESS ON FILE Social History Tobacco Use Types Packs/Day Years [...] Description 08/24/2024 11:00 AM CDT Video Visit [facility] Physical Med and Rehab - Rehab Hosp [facility] [address] [place] [address] [place] [address] [place] [address] documented as of this encounter Visit Diagnoses Not on filedocumented in this encounter Care Teams Seismic Engineer Relationship Specialty Start Date End Date Bhargav Wilkes MD [address] [place] [address] [place] [phone] PCP - General Family Practice 05/07/22 documented as of this encounter
--- OUTSIDE RECORDS SUMMARY | 2024-04-13 08:39 | XMS_ITS | Encounter Summary ---
Author Organization [facility] Address [address] [place] [address] Care Team Providers Care Neon Molder Name Role Phone Chung Bhargav Peck MD Primary Care Provider Reason for Visit * Reason Comments Med Refill Encounter Details Date Type Department Care Team (Late Contact Info) Description 12/15/2023 Refill [facility] [address] [place] [address] Naresh Larios MD [address] [phone] [address] -[phone] (Work) Thoracic spondylosis with cord compression Social History Tobacco Use Types Packs/Day Years [...] Encounters Date Type Department Care Team (Late Contact Info) Description 08/24/2024 11:00 AM CDT Video Visit [facility] Physical Med and Rehab - Re[facility] [address] [place] [phone] [place] [address] [place] [address] documented as of this encounter Visit Diagnoses Diagnosis 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
--- OUTSIDE RECORDS SUMMARY | 2024-04-13 08:39 | XMS_ITS | Encounter Summary ---
Author Organization [facility] Address [address] [place] [address] Care Team Providers Care Supervisor Cigar Making Machine Name Role Phone Bhargav Wilkes MD Primary Care Provider Encounter Details Date Type Department Care Team (Late st Contact Info) Description 03/14/2024 External Device Data [facility] ABSTRACTION Provider, Abstract [...] Description 08/24/2024 11:00 AM CDT Video Visit [facility] Physical Med and Rehab - [facility] [address] [place] [address] [place] [address] [place] [address] documented as of this encounter Visit Diagnoses Not on filedocumented in this encounter Care Teams Supervisor Cigar Making Machine Relationship Specialty Start Date End Date Bhargav Wilkes MD [address] [place] [address] [place] [phone] PCP - General Family Practice 05/07/22 documented as of this encounter
--- OUTSIDE RECORDS SUMMARY | 2024-04-13 08:39 | XMS_ITS | Encounter Summary ---
Author Organization [facility] Address [address] [place] [address] Care Team Providers Care Hand Tire Trimmer Name Role Phone Bhargav Wilkes MD Primary Care Provider Reason for Visit * Reason Comments Follow Up Encounter Details Date Type Department Care Team (Late st Contact Info) Description 02/24/2024 11:00 AM TOW PICKER Video Visit [facility] Physical Med and Rehab - Rehab [facility]osp [facility] [address] [place] [phone] [place] [address] [place] [address] Brown-Sequard syndrome (Primary Dx) Social History Tobacco Use Types Packs/Day Years Used Date Smoking Tobacco: Former Cigarettes 0.5 5 1 415 - 5022 Smokeless Tobacco: Never Alcohol Use Standard Drinks/Week Comments Never 0 (1 standard drink = 0.6 oz pur e alcohol) Sex and Gender Information Value Date Recorded Sex Assigned at Not on file Gender Identity Not on file Sexual Orientation Not on file documented as of this encounter Progress Notes * Be Rangel DO - 02/24/2024 11:00 AM CST Physical Medicine and Rehabilitation Outpatient Progress Note Patient's identity confirmed yes Patient gave verbal consent to have these services billed to their insurance and expressed understanding that co-insurance and deductible may apply: yes This encounter was completed via two-way synchronous audio and video communication. Patient: Hailee Tanner Date of visit: 02/24/2024 Date of last visit: 08/24/23 Chief complaint: I've had my days Subjective: The patient presents for outpatient follow up. she was last seen on 08/23. At the time of that visit, she had successfully return to driving and appreciated the increased mobility. She had been able to do more in her life such as taking [employer]. She had knee pain and saw an orthopedic surgeon and received an injection. She felt her spasticity had receded to her ankles and feet. Since that time she says she has been doing well overall. She is driving and going to her [email or web address] events. She is still using a walker in the community, working on walking with a cane with therapy. Still doing therapies 2- 3 times a week. She states she is making progress but wants to be quicker progress. Pain continues to fluctuate and is still mostly tolerable with medications. She reports shooting pain in her right leg that occurs a couple times a week. She is concerned about following with this shooting pain happens. Spasms are ongoing, worse at night on occasion. She takes baclofen 20 mg 4 times a day. She has a prescription still of as needed Valium but has not tried it lately. She is happy report that her sensation is improving specifically in regards to temperature. She feels her internal thermostat is regulating. Review of Systems Constitutional: Negative. Gastrointestinal: Negative. Genitourinary: Negative. Musculoskeletal: Positive for back pain. Negative for falls. Neurological: Positive for tingling. Social History: Living by herself Medications reviewed. Current Outpatient Medications: furosemide (LASIX) 20 mg tablet, Take 20 mg by mouth 1 time daily as needed., Disp: , Rfl: amitriptyline (ELAVIL) 25 mg tablet, TAKE 1 TABLET(25 MG) BY MOUTH DAILY AT BEDTIME, Disp: 90 Tablet, Rfl: 1 baclofen (LIORESAL) 10 mg tablet, TAKE 2 TABLETS BY MOUTH FOUR TIMES DAILY, Disp: 720 Tablet, Rfl: 3 diazePAM (VALIUM) 5 mg tablet, TAKE 1 TABLET(5 MG) BY MOUTH EVERY NIGHT NEEDED FOR SPASM, Disp: 30 Tablet, Rfl: 1 pantoprazole (PROTONIX) 40 mg Tablet, Delayed Release (E.C.), Take 1 Tablet (40 mg) by mouth daily before breakfast., Disp: 30 Tablet, Rfl: 0 pregabalin (LYRICA) 75 mg Capsule, TAKE 1 CAPSULE(75 MG) BY MOUTH EVERY 8 HOURS, Disp: 270 Capsule,Rfl: 3 pregabalin (Lyrica) 75 mg Capsule, Take 1 Capsule (75 mg) by mouth every 8 hours., Disp: 90 Capsule, Rfl: 3 Miscellaneous Medical Supply, Compression stocking with a zipper, Disp: 1 Each, Rfl: 0 traZODone (DESYREL) 50 mg tablet, Take 1 Tablet (50 mg) by mouth daily at bedtime., Disp: 30 Tablet, Rfl: 0 Objective: Vitals: There were no vitals taken for this visit. General:alert, no distress and cooperative Neuro: CN II-XII grossly intact, no facial droop Psyche: Patient displays an appropriate mood and affect. ASSESSMENT/PLAN: 68 y.o. female who underwent C4-6 ACDF and T2-T3 laminectomy on 03/13/[address] 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 she presents today to continue outpatient rehabilitation care. No orders of the defined types were placed in this encounter. 1. Spinal cord injury: Functionally, she is doing well overall. Spoke at great length and encouraging her and educating her on the coverage process. Continue with therapies and home exercise program. 2. Spasticity: Continue with current medications. Recommend she trial Valium or regularly at night for when the spasms get too unbearable. 3. Pain: Continue with current regimen Follow up: 6 months Issues to address at follow-up: Overall function Total time spent: 50 minutes. Greater than 50% was spent counseling and coordination of care. Electronically signed by: Be Rangel DO Physical Medicine and Rehabilitation [phone] ATTESTATION STATEMENTS Portions of this note were transcribed using [employer] speaking computerized voice recognition without a human manager policy. This report may or may not have been adjusted for typographical, grammatical and syntax errors or malapropisms. 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
--- OUTSIDE RECORDS SUMMARY | 2024-04-13 08:39 | XMS_ITS | Encounter Summary ---
Author Organization [facility] Address [address] [place] [address] Care Team Providers Care Supervisor Dog License Officer Name Role Phone Bhargav Wilkes MD Primary Care Provider Reason for Visit * Reason Comments Follow Up Encounter Details Date Type Department Care Team (Late st Contact Info) Description 08/24/2023 11:00 AM CDT Video Visit [facility] Physical Med and Rehab - Re[facility] H[facility] [address] [place] [phone] [place] [address] [place] [address] Brown-Sequard syndrome (Primary Dx) Social History Tobacco Use Types Packs/Day Years Used Date Smoking Tobacco: Former Cigarettes 0.5 5 1 665 - 4605 Smokeless Tobacco: Never Alcohol Use Standard Drinks/Week Comments Never 0 (1 standard drink = 0.6 oz pur e alcohol) Sex and Gender Information Value Date Recorded Sex Assigned at Not on file Gender Identity Not on file Sexual Orientation Not on file documented as of this encounter Progress Notes * Be Rangel DO - 08/24/2023 11:30 AM CDT Physical Medicine and Rehabilitation Outpatient Progress Note Patient's identity confirmed yes Patient gave verbal consent to have these services billed to their insurance and expressed understanding that co-insurance and deductible may apply: yes This encounter was completed via two-way synchronous audio and video communication. Patient: Hailee Tanner Date of visit: 08/24/2023 Date of last visit: 03/18/23 Chief complaint: Doing okay Subjective: The patient presents for outpatient follow up. she was last seen on 03/18. At the time of that visit, she had to make adjustments to her Lyrica dosing and felt the twice a day dosing was beneficial and she was not experiencing any jerkiness or blurred vision that she felt she was having with 3 timesa day dosing. She was still in therapies and walking longer longer distances with and without assist robbie devices. She felt like she is making progress. Since that time she has successfully returned to driving. She has ongoing fluctuating muscle spasms, nerve pain. She did have a recent increase in pain and spasticity and decrease in function. She was eventually diagnosed with a sinus infection. She was placed on antibiotics and her symptoms have greatly improved. She did miss last week of therapy and is back out of this week. She also recently had increased knee pain and saw an orthopedic surgeon. She received an injection. She is not sure it helped. She also notes her spasticity is receding. It is now only in her foot and ankles and a little bit into her calf. Previously, she had been experiencing the spasticity up to her chest. Driving is going well. She is able to better participate in life. She recently took 5 [place] fishing successfully. We had also referred her to palliative care for pain management but the title palliative gave herpause and she never made the appointment. She does feel like her pain is better controlled now thatthe infection is done. Review of Systems Constitutional: Negative. Gastrointestinal: Negative. Genitourinary: Negative. Musculoskeletal: Positive for back pain. Negative for falls. Neurological: Positive for tingling. Social History: Living by herself Medications reviewed. Current Outpatient Medications: pregabalin (LYRICA) 75 mg Capsule, TAKE 1 CAPSULE(75 MG) BY MOUTH EVERY 8 HOURS, Disp: 270 Capsule,Rfl: 1 amitriptyline (ELAVIL) 25 mg tablet, TAKE 1 TABLET(25 MG) BY MOUTH DAILY AT BEDTIME, Disp: 90 Tablet, Rfl: 1 baclofen (LIORESAL) 10 mg tablet, TAKE 2 TABLETS BY MOUTH FOUR TIMES DAILY, Disp: 720 Tablet, Rfl: 1 diazePAM (VALIUM) 5 mg tablet, TAKE 1 TABLET(5 MG) BY MOUTH EVERY NIGHT NEEDED FOR SPASM, Disp: 30 Tablet, Rfl: 1 pregabalin (Lyrica) 75 mg Capsule, Take 1 Capsule (75 mg) by mouth every 8 hours., Disp: 90 Capsule, Rfl: 3 Miscellaneous Medical Supply, Compression stocking with a zipper, Disp: 1 Each, Rfl: 0 pantoprazole (PROTONIX) 40 mg Tablet, Delayed Release (E.C.), Take 1 Tablet (40 mg) by mouth daily before breakfast., Disp: 30 Tablet, Rfl: 0 traZODone (DESYREL) 50 mg tablet, [...] in this encounter. 1. Spinal cord injury: Functionally she is doing well overall except for recent sinus infection that caused some troubles with her spasticity and nerve pain. Continue with outpatient therapies 2. Spasticity: Continue with current medication regimen 3. Pain: Continue with current regimen 4. Weight loss: We spoke at great length about healthful food choices for weight loss. Follow up: 6 months Issues to address at follow-up: Overall function Total time spent: 25 minutes. Greater than 50% was spent counseling and coordination of care. Electronically signed by: Be Rangel DO Physical Medicine and Rehabilitation [phone] ATTESTATION STATEMENTS Portions of this note were transcribed using 1EQ speaking computerized voice recognition without a human roll icer. This report may or may not have been adjusted for typographical, grammatical and syntax errors or malapropisms. 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
--- OUTSIDE RECORDS SUMMARY | 2024-04-13 08:39 | XMS_ITS | Encounter Summary ---
Author Organization [facility] Address [address] [place] [address] Care Team Providers Care Senior Front End Developer Name Role Phone Chung Bhargav Peck MD Primary Care Provider Encounter Details Date Type Department Care Team (Late st Contact Info) Description 09/02/2023 Abstract [facility] Physical Med and Rehab - [facility] [address] [place] [phone] [place] [address] [place] [address] Social History Tobacco Use Types [...] Description 08/24/2024 11:00 AM CDT Video Visit [facility] Physical Med and Rehab - [facility] [id number] [place] [phone] [place] [address] [place] [address] documented as of this encounter Visit Diagnoses Not on filedocumented in this encounter Care Teams Senior Front End Developer Relationship Specialty Start Date End Date Bhargav Wilkes MD [address] [place] [phone] PCP - General Family Practice 05/07/22 documented as of this encounter
--- OUTSIDE RECORDS SUMMARY | 2024-04-13 08:39 | XMS_ITS | Encounter Summary ---
Author Organization [facility] Address [address] [place] [address] Care Team Providers Care Registered Nurse Fetal Name Role Phone Bhargav Wilkes MD Primary Care Provider Encounter Details Date Type Department Care Team (Late st Contact Info) Description 02/09/2024 External Device Data STL ABSTRACTION Provider, Abstract [...] Description 08/24/2024 11:00 AM CDT Video Visit [facility] Physical Med and Rehab - Re[facility] [address] [place] [address] [place] [address] [place] [address] documented as of this encounter Visit Diagnoses Not on filedocumented in this encounter Care Teams Registered Nurse Fetal Relationship Specialty Start Date End Date Bhargav Wilkes MD [address] [place] [address] [place] [phone] PCP - General Family Practice 05/07/22 documented as of this encounter
--- OUTSIDE RECORDS SUMMARY | 2024-04-13 08:39 | XMS_ITS | Encounter Summary ---
Author Organization [facility] Address [address] [place] [address] Care Team Providers Care It Operations Specialist Name Role Phone Bhargav Wilkes MD Primary Care Provider Reason for Referral * Eval and Treat (Routine) - Closed Specialty Diagnoses / Procedures Referred By Darlene hodgson Referred To Contact Physical Therapy Diagnoses Brown-Sequard syndrome Cord compression Cervical [place] [address] [place] [address] [facility] Physical Therapy [address] [place] [phone] Referral ID Status Reason Start Date Expiration Date Visits Re quested Visits Authorized [id number] Closed 11/23/2023 11/22/2024 30 30 Encounter Details Date Type Department Care Team (Late st Contact Info) Description 11/23/2023 Orders Only [facility] Physical Med and Rehab - Re[facility] Hosp Clinic [address] [place] [address] [place] [address] [place] [address] Brown-Sequard syndrome (Primary Dx); Cord compression; Cervical spondylosis with radiculopathy Social History Tobacco Use Types Packs/Day Years [...] Description 08/24/2024 11:00 AM CDT Video Visit [facility] Physical Med and Rehab - Rehab [facility] [address] [place] [address] [place] [address] [place] [phone] Scheduled Referrals Name Type Priority Associated Diagnoses Orde r Schedule AMB REFERRAL TO PHYSICAL THERAPY Outpatient Referral Routine Brown-Sequard syndrome Cord compression Cervical spondylosis with radiculopathy Ordered: 11/23/2023 documented as of this encounter Visit Diagnoses Diagnosis Brown-Sequard syndrome- Primary Other specified paralytic syndrome Cord compression Unspecified disease of spinal cord Cervical spondylosis with radiculopathy Cervical spondylosis with myelopathy documented in this encounter Care Teams It Operations Specialist Relationship Specialty Start Date End Date Bhargav Wilkes MD [address] [phone] PCP - General Family Practice 05/07/22 documented as of this encounter
--- OUTSIDE RECORDS SUMMARY | 2024-04-13 08:39 | XMS_ITS | Encounter Summary ---
Author Organization [facility] Address [address] [place] [address] Care Team Providers Care Windshield Technician Name Role Phone Bhargav Wilkes MD Primary Care Provider Reason for Referral * Eval and Treat (Routine) - Closed Specialty Diagnoses / Procedures Referred By Darlene hodgson Referred To Contact Diagnoses Brown-Sequard syndrome Cervical spondylosis with [place]icul[place] [address] [place] [address] [facility] Physical Therapy [address] [place] [phone] Referral ID Status Reason Start Date Expiration Date Visits Re quested Visits Authorized [id number] Closed 09/13/2023 09/12/2024 30 30 Encounter Details Date Type Department Care Team (Late st Contact Info) Description 09/13/2023 Orders Only [facility] Physical Med and Rehab - Rehab Hosp [facility] [address] [place] [address] [place] [address] [place] [address] Brown-Sequard syndrome (Primary Dx); Cervical spondylosis with radiculopathy; Cord compression Social History Tobacco Use Types Packs/Day [...] Description 08/24/2024 11:00 AM CDT Video Visit [facility] Physical Med and Rehab - Rehab [facility] [address] [place] [address] [place] [address] [place] [phone] Scheduled Referrals Name Type Priority Associated Diagnoses Orde r Schedule AMB REFERRAL TO PHYSICAL THERAPY Outpatient Referral Routine Brown-Sequard syndrome Cervical spondylosis with radiculopathy Cord compression Ordered: 09/13/2023 documented as of this encounter Visit Diagnoses Diagnosis Brown-Sequard syndrome- Primary Other specified paralytic syndrome Cervical spondylosis with radiculopathy Cervical spondylosis with myelopathy Cord compression Unspecified disease of spinal cord documented in this encounter Care Teams Windshield Technician Relationship Specialty Start Date End Date Bhargav Wilkes MD [address] [phone] PCP - General Family Practice 05/07/22 documented as of this encounter
--- OUTSIDE RECORDS SUMMARY | 2024-04-13 08:39 | XMS_ITS | Encounter Summary ---
Author Organization [facility] Address [address] [place] [address] Care Team Providers Care Waiter/Waitress Head Name Role Phone Chung Bhargav Peck MD Primary Care Provider Encounter Details Date Type Department Care Team (Late st Contact Info) Description 03/23/2024 Abstract [facility] Physical Med and Rehab - Rehab Hosp Clinic [address] [place] [phone] [place] [address] [place] [address] Social History Tobacco Use Types [...] Description 08/24/2024 11:00 AM CDT Video Visit [facility] Physical Med and Rehab - Rehab Hosp [facility] [address] [place] [phone] [place] [address] [place] [address] documented as of this encounter Visit Diagnoses Not on filedocumented in this encounter Care Teams Waiter/Waitress Head Relationship Specialty Start Date End Date Bhargav Wilkes MD [address] [place] [phone] PCP - General Family Practice 05/07/22 documented as of this encounter
--- OUTSIDE RECORDS SUMMARY | 2024-04-13 08:39 | XMS_ITS | Encounter Summary ---
Author Organization [facility] Address [address] [place] [address] Care Team Providers Care Construction Worker Name Role Phone Chung Bhargav Peck MD Primary Care Provider Encounter Details Date Type Department Care Team (Late st Contact Info) Description 10/21/2023 Abstract [facility] Physical Med and Rehab - Rehab Hosp Clinic [address] [place] [phone] [place] [address] [place] [address] Social History Tobacco Use Types [...] Video Visit [facility] Physical Med and Rehab - Re[facility] [address] [place] [phone] [place] [address] [place] [address] documented as of this encounter Visit Diagnoses Not on filedocumented in this encounter Care Teams Construction Worker Relationship Specialty Start Date End Date Bhargav Wilkes MD [address] [place] [phone] PCP - General Family Practice 05/07/22 documented as of this encounter
--- OUTSIDE RECORDS SUMMARY | 2024-04-13 08:39 | XMS_ITS | Clinical Summary ---
Author Organization [facility] Address [address] [place] [address] Phone Care Team Providers Care Publications Production Supervisor Name Role Phone Bhargav Wilkes MD Primary Care Provider Allergies Active Allergy Reactions Criticality Noted Date Comments Codeine Nausea and Vomiting Low 01/08/2021 Oxycodone Nausea and Vomiting Low 12/17/2020 Medications Medication Sig Dispensed Refills Start Date End Date Status pantoprazole (PROTONIX) 40 mg Tablet, Delayed Release (E.C.) Take 1 Tablet (40 mg) by mouth daily before breakfast. 30 Tablet 2 Active traZODone (DESYREL) 50 mg tablet Take 1 Tablet (50 mg) by mouth daily at bedtime. 30 Tablet 2 Active Miscellaneous Medical SupplyIndication s:Bilateral leg pain Compression stocking with a zipper 1 Each 3 Active pregabalin (Lyrica) 75 mg Capsule Take 1 Capsule (75 mg) by mouth every 8 hours. 90 Capsule 3 3 Active baclofen (LIORESAL) 10 mg tablet TAKE 2 TABLETS BY MOUTH FOUR TIMES DAILY 720 Tablet 3 4 Active pregabalin (LYRICA) 75 mg CapsuleIndicatio ns:Thoracic spondylosis with cord compression TAKE 1 CAPSULE(75 MG) BY MOUTH EVERY 8 HOURS 270 Capsule 3 4 Active furosemide (LASIX) 20 mg tablet Take 20 mg by mouth 1 time daily as needed. Active amitriptyline (ELAVIL) 25 mg tablet TAKE 1 TABLET(25 MG) BY MOUTH DAILY AT BEDTIME 90 Tablet 6 4 Active diazePAM (VALIUM) 5 mg tabletIndication s:Brown-Sequard syndrome Take 1 Tablet (5 mg) by mouth nightly as needed for Spasm. 30 Tablet 3 4 Active diazePAM (VALIUM) 5 mg tabletIndication s:Brown-Sequard syndrome TAKE 1 TABLET(5 MG) BY MOUTH EVERY NIGHT NEEDED FOR SPASM 30 Tablet 1 3 03/31/20 24 Discontinued(Reo rder) amitriptyline (ELAVIL) 25 mg tablet TAKE 1 TABLET(25 MG) BY MOUTH DAILY AT BEDTIME 90 Tablet 1 4 03/16/20 24 Discontinued Active Problems Problem Noted Date Diagnosed Date Grief 09/22/2023 Anger 09/22/2023 Neck pain 02/12/2021 Cervical spondylosis with radiculopathy 02/13/20 21 Cord compression 02/12/2021 Neurological deficit present Brown-Sequard syndrome Urinary retention HTN (hypertension) GERD (gastroesophageal reflux disease) Overview (03/27/2021): Difficulty taking NSAIDs. Arthritis Resolved Problems Problem Noted Date Diagnosed Date Resolved Date Hyponatremia 09/22/2023 Encounters Date Type Department Care Team Description 03/23/2024 Abstract [facility] Physical Med and Rehab - Rehab Hosp [address] [address] Be Rangel DO 03/16/2024 Refill [facility] Physical Med and Rehab - Rehab Hosp [address] [address] Be Rangel DO 03/14/2024 External Device Data STL ABSTRACTION Provider, Abstract 02/24/2024 11:00 AM AEGIS OPERATIONS SPECIALIST Video Visit [facility] Physical Med and Rehab - Rehab Hosp [address] [phone] Be Rangel DO Brown-Sequard syndrome (Primary Dx) 02/22/2024 Abstract [facility] Physical Med and Rehab - Rehab Hosp [address] [place] [address] Be Rangel DO 02/14/2024 External Device Data STL ABSTRACTION Provider, Abstract 02/09/2024 External Device Data STL ABSTRACTION Provider, Abstract 01/31/2024 Abstract [facility] Physical Med and Rehab - [facility] [address] [place] [phone] Be Rangel DO 01/31/2024 Orders Only [facility] Physical Med and Rehab - Re[facility] [address] [place] [phone] Be Rangel DO Brown-Sequard syndrome (Primary Dx); Cord compression; Cervical spondylosis with radiculopathy 01/27/2024 Abstract [facility] Physical Med and Rehab - Re[facility] [address] [place] [phone] Be Rangel DO from Last 3 Months Immunizations Name Administration Dates Next Due (Chemclin)(12 YR UP) COVID-19 VACCINE - EMERGENCY USE AUTHORIZATION, MRNA, [id number]) 30 MCG/0.3 ML IM SUSP 02/14/2021,06/16/2020,05/25/2020 Family History Medical History Relation Name Comments Hypertension Brother Other Brother Tobacco Use Hypertension Father Kidney Cancer Father Lung Cancer Father Other Father Tobacco Use Other Maternal Grandfather Tobacco Use Stroke Maternal Grandmother Cervical Cancer Mother Hypertension Mother Other Mother Tobacco Use Breast Cancer Other Aunt Lung Cancer Paternal Grandfather Other Paternal Grandfather Tobacco Use Other Paternal Grandmother Tobacco Use Breast Cancer Sister Hypertension Sister Relation Name Status Comments Brother Father Maternal Grandfather Maternal Grandmother Mother Other Aunt Paternal Grandfather Paternal Grandmother Sister Social History Tobacco Use Types Packs/Day Years [...] Sign Reading Time Taken Comments Blood Pressure 136/89 01/28/2022 12:58 PM CDT Pulse 76 01/28/2022 12:58 PM CDT Temperature 36.7 ??C (98.1 ??F) 01/28/2022 12:58 PM C DT Respiratory Rate 16 04/18/2021 5:05 AM AEGIS OPERATIONS SPECIALIST Oxygen Saturation 95% 04/18/2021 5:05 AM AEGIS OPERATIONS SPECIALIST Inhaled Oxygen Concentration - - Weight 86.2 kg (190 lb) 01/28/2022 12:58 PM CDT Height 161.3 cm (5' 3.5 ) 01/28/2022 12:58 PM CD T Body Mass Index 33.13 01/28/2022 12:58 PM CDT Plan of Treatment Upcoming Encounters Date Type Department Care Team (Late st Contact Info) Description 08/24/2024 11:00 AM CDT Video Visit [facility] Physical Med and Rehab - Rehab [facility]osp [facility] [address] [place] [address] Be Rangel, [address] [place] [address] Health Maintenance Due Date Last Done Comments Pre-Diabetes and Diabetes Screening 1955 COLORECTAL SCREENING 2000 Colorectal Cancer Screening 2000 FIT-DNA Q 3 years 2000 FIT/FOBT Q 1 year 2000 Flex Sig/CT Colonography Q 5 years 2000 OSTEOPOROSIS SCREENING 2020 BREAST CANCER SCREENING 01/29/2023 01/30/20 22, 11/27/2020, 11/06/2020, Additional history exists INFLUENZA VACCINE (#1) 2023 3, 12/25/2021, 02/24/2021, Additional history exists DTAP/TDAP/TD VACCINES (2 - T d or Tdap) 11/12/2023 11/11/2013 COVID-19 Vaccine (2023-2 5 season) 2023 02/14/2021, 06/16/2020, 05/25/2020 RSV VACCINE (60+ or ) (1 - 1-dose 75+ series) 2030 PNEUMOCOCCAL VACCINE 65+ YEARS Completed 05/04/2022 ZOSTER VACCINE Completed 05/04/2022, 12/25/2021 Medical Devices Implanted Type Area Blow Torch Operator Device Identifier Shelf Expiration Date Model / Serial / Lot Hemostatic Surgiflo 8ml W/ Thrombin 2994 - [id number] Implanted:Qt y: 1 on 03/13/2021 by Naresh Larios MD at [facility] Hemostatic N/A: Spine Cervical Anterior [employer] [id number] 06/09/2022 2994 / / [id number] Acp Plate 1.6 2 Level 38 Mm Implanted:Qt y: 1 on 03/13/2021 by Naresh Larios MD at [facility] Plate N/A: Spine Cervical Anterior [employer] [id number] / / 15 Mm Variable Screws Self Drilling Implanted:Qt y: 6 on 03/13/2021 by Naresh Larios MD at [facility] Screw N/A: Spine Cervical Anterior [employer] [id number] / / Description:All Nuvasive cer vical hardware was processed on requisition,[id number]. Allograft Triad Cc Cerv [id number] - [id number] Implanted:Qt y: 1 on 03/13/2021 by Naresh Larios MD at [facility] Tissue N/A: Spine Cervical Anterior [employer] 05/08/2025 [id number] / [id number] / Allograft Triad Cc Cerv [id number] - [id number] Implanted:Qt y: 1 on 03/13/2021 by Naresh Larios MD at [facility] Tissue N/A: Spine Cervical Anterior [employer] 06/20/2025 [id number] / [id number] / Advance Directives For more information, please contact: [phone] * Full Code (Latest Code Status on File) Date Activated Date Inactivated Comments 03/27/2021 10:47 PM 04/18/2021 3:52 PM * Full Code Date Activated Date Inactivated Comments 03/13/2021 6:27 PM 03/27/2021 10:45 PM * Full Code Date Activated Date Inactivated Comments 03/13/2021 1:16 PM 03/13/2021 6:27 PM * Full Code Date Activated Date Inactivated Comments 03/13/2021 10:32 AM 03/13/2021 1:16 PM Care Teams Publications Production Supervisor Relationship Specialty Start Date End Date Bhargav Wilkes MD [address] [place] [phone] PCP - General Family Practice 05/07/22
--- OUTSIDE RECORDS SUMMARY | 2024-04-13 08:39 | XMS_ITS | Encounter Summary ---
Author Organization [facility] Address [address] [place] [address] Care Team Providers Care Pattern Marking Supervisor Name Role Phone Chung, Bhargav Peck MD Primary Care Provider Reason for Visit * Reason Comments Med Refill Encounter Details Date Type Department Care Team (Late st Contact Info) Description 03/16/2024 Refill [facility] Physical Med and Rehab - Rehab Hosp Clinic [address] [place] [phone] [place] [address] [place] [address] Social History Tobacco Use Types [...] Description 08/24/2024 11:00 AM CDT Video Visit [facility] Physical Med and Rehab - Rehab [facility] Clinic [address] [place] [phone] [place] [address] [place] [address] documented as of this encounter Visit Diagnoses Not on filedocumented in this encounter Care Teams Pattern Marking Supervisor Relationship Specialty Start Date End Date Bhargav Wilkes MD [address] [place] [phone] PCP - General Family Practice 05/07/22 documented as of this encounter
--- OUTSIDE RECORDS SUMMARY | 2024-04-13 08:39 | XMS_ITS | Encounter Summary ---
Author Organization [facility] Address [address] [place] [address] Care Team Providers Care Mix Maker Name Role Phone Bhargav Wilkes MD Primary Care Provider Encounter Details Date Type Department Care Team (Late st Contact Info) Description 09/14/2023 External Device Data STL ABSTRACTION Provider, Abstract [...] Description 08/24/2024 11:00 AM CDT Video Visit [facility] Physical Med and Rehab - [facility] [address] [place] [address] [place] [address] [place] [address] documented as of this encounter Visit Diagnoses Not on filedocumented in this encounter Care Teams Mix Maker Relationship Specialty Start Date End Date Bhargav Wilkes MD [address] [place] [address] [place] [phone] PCP - General Family Practice 05/07/22 documented as of this encounter
--- OUTSIDE RECORDS SUMMARY | 2024-04-13 08:39 | XMS_ITS | Encounter Summary ---
Author Organization [facility] Address 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 [address] [place] [phone] Referral ID Status Reason Start Date Expiration Date Visits Re quested Visits Authorized [id number] Closed 08/11/2023 08/10/2024 2 2 Encounter Details Date Type Department Care Team (Late st Contact Info) Description 09/22/2023 9:00 AM CDT Video Visit [facility] Palliative Care - [address] Suite [facility] [place] [address] Wanda Rudolph DO [address] [address] Grief (Primary Dx); Anger; Palliative care encounter; Central pain syndrome Social History Tobacco Use Types Packs/Day Years [...] as of this encounter Progress Notes * Wanda Rudolph DO - 09/22/2023 9:20 AM CDT Patient's identity confirmed yes Patient gave verbal consent to have these services billed to their insurance and expressed understanding that co-insurance and deductible may apply: yes This encounter was completed via two-way synchronous audio and video communication. [facility], please expand this section to view full chart note. [facility] Palliative Care Visit Next Steps and Considerations: Palliative available to support Hailee if she would like Consider the following as part of her care treatment: Healing Reimagined program with art, music and poetry as vehicles to process grief and anger Palliative pay agent support Mindfulness/Breathing Chair Yoga/stretches Gratitude work Can trial low dose naltrexone which has benefited those with nervous system injury Narrative: When did your health start to change? Hailee had cervical and throacic back surgery. Could not move feet/legs. 2.5 years ago. 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 Going to therapy ever since. Chest area still stings a little bit. Some feeling in stomach. Now able to walk with a walker. Started 6-8 months after surgery. Having spasms in chest. This is unacceptable to me. I was told by Dr Rangel you would have other herbs, supplements for me. Discussed concern that medications are tools - and there is no way to know how one tool might work better than the other with acceptable side effect profiles without trying those tools. Hailee is very unhappy with lyrica and does not think that it is working. I expressed concern for what her expectations are living as well and as long as she can with this body that has been changed. We reviewed palliative and how that support can help trial physical medication like naltrexone AND more importantly process the grief - anger, denial, blame, sadness and the potential for finding meaning and matthew with where she is as she is. I do not accept that! Your mikhail is not going to make me bring mikhail to my life. This is NOT what [place] told me you would do for me! I'm still fighting and I'm never going to get over this anger! Spiritual Screening Recently have things negatively changed in your life as it relates to loss in meaning, purpose, andjoy? Yes 2. Are you struggling to find meaningful connections with others or God? Yes 3. Are you currently grieving a recent loss/? No 4. Do you feel the need for additional support AND open to having a [facility] Spiritual Care Provider reaching out to you? No Physical Exam General appearance: alert, in no distress Consciousness: Awake and alert Orientation: oriented X 3 Demeanor: calm Attitude: angry Speech: normal pace and tone Thought: sequential Affect: appropriate Insight: good Judgement: good Memory: good Eye Contact: frequent and engaging Psychomotor: no twitches, or restlessness Motor Exam: Moves b/l UE's and LE's; core strength intact & sitting on couch in slouched position Lungs: no dyspnea with conversation Skin: no obvious rash or lesion HEENT: ATNC; EOMI: hearing intact b/l Assessment and Plan: Anger Grief Chronic Pain Concern of central pain syndrome symptoms LDN might be one pharmacologic tool to try More important is the emotional, mental, spiritual work processing this changed body and all that it has endured to manage pain Goals of Care: Complete ACP in future Results of Prescription Database Monitoring Program Inquiry: Reviewed. No opioids. Care Team: Patient Care Team: Bhargav Wilkes MD as PCP - General (Family Practice) Wanda Rudolph DO [facility] Start Time:914 End Time:949 Total time spent with patient/family face to face care today, including examination, review of results, discussion with IDT team, nursing and/or consultants, symptom management, care planning and care coordination that included greater than 50% of the time spent in counseling and education. This note may have been dictated using [employer]. Networks Computer Consultant variances may occur. documented in this encounter Plan of Treatment Upcoming Encounters Date Type Department Care Team ([facility] st Contact Info) Description 08/24/2024 11:00 AM CDT Video Visit [facility] Physical Med and Rehab - [facility] [address] [place] [phone] [place] [address] [place] [phone] documented as of this encounter Visit Diagnoses Diagnosis Grief- Primary Adjustment disorder with depressed mood Anger Other signs and symptoms involving emotional state Palliative care encounter Encounter for palliative care Central pain syndrome documented in this encounter Care Teams Rubber Stamp Dies Inspector Relationship Specialty Start Date End Date Bhargav Wilkes MD [address] [place] [phone] PCP - General Family Practice 05/07/22 documented as of this encounter
--- OUTSIDE RECORDS SUMMARY | 2024-04-13 08:39 | XMS_ITS | Encounter Summary ---
Author Organization [facility] Address [address] [place] [address] Care Team Providers Care Interpreter Deaf Name Role Phone Chung Bhargav Peck MD Primary Care Provider Encounter Details Date Type Department Care Team (Late st Contact Info) Description 11/12/2023 Abstract [facility] Physical Med and Rehab - [facility] [address] [place] [phone] [place] [address] [place] [address] Social History Tobacco Use Types [...] Description 08/24/2024 11:00 AM CDT Video Visit [facility] Physical Med and Rehab - [facility] [address] [place] [phone] [place] [address] [place] [address] documented as of this encounter Visit Diagnoses Not on filedocumented in this encounter Care Teams Interpreter Deaf Relationship Specialty Start Date End Date Bhargav Wilkes MD [address] [place] [phone] PCP - General Family Practice 05/07/22 documented as of this encounter
--- OUTSIDE RECORDS SUMMARY | 2024-04-13 08:39 | XMS_ITS | Encounter Summary ---
Author Organization [facility] Address [address] [place] [address] Care Team Providers Care Timing Machine Operator Name Role Phone Chung, Bhargav Peck MD Primary Care Provider Reason for Visit * Reason Comments Med Refill Encounter Details Date Type Department Care Team (Late st Contact Info) Description 09/01/2023 Refill [facility] Physical Med and Rehab - [facility] [address] [place] [phone] [place] [address] [place] [address] Social History Tobacco Use Types [...] Video Visit [facility] Physical Med and Rehab - [facility] [address] [place] [phone] [place] [address] [place] [address] documented as of this encounter Visit Diagnoses Not on filedocumented in this encounter Care Teams Timing Machine Operator Relationship Specialty Start Date End Date Bhargav Wilkes MD [address] [place] [phone] PCP - General Family Practice 05/07/22 documented as of this encounter
--- OUTSIDE RECORDS SUMMARY | 2024-04-13 08:39 | XMS_ITS | Encounter Summary ---
Author Organization [facility] Address 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 Procedures PA OFFICE/OUTPATIENT ESTABLISHED MOD MDM 30 MIN PA OFFICE/OUTPATIENT NEW MODERATE MDM 45 MINUTES Be Rangel, [address] [place] [phone] [facility] Palliative Care [address] [place] [phone] Referral ID Status Reason Start Date Expiration Date Visits Re quested Visits Authorized [id number] Closed 08/11/2023 08/10/2024 2 2 Encounter Details Date Type Department Care Team (Late st Contact Info) Description 08/26/2023 10:30 AM CDT Video Visit [facility] Palliative Care - [address] Suite [facility] [place] [address] Wanda Rudolph DO [address] [address] No-show for appointment (Primary Dx) Social History Tobacco Use Types [...] Progress Notes * Wanda Rudolph DO - 08/26/2023 10:31 AM CDT Text message sent to [phone] and no response. Email sent to [email or web address] Will re-schedule with Hailee should palliative services still be desired. 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
--- OUTSIDE RECORDS SUMMARY | 2024-04-13 08:39 | XMS_ITS | Encounter Summary ---
Author Organization [facility] Address [address] [place] [address] Care Team Providers Care Stucco Applicator Name Role Phone Bhargav Wilkes MD Primary Care Provider Reason for Referral * Physical Therapy (Routine) - Open Specialty Diagnoses / Procedures Referred By Darlene hodgson Referred To Contact Physical Therapy Diagnoses Brown-Sequard syndrome Cord compression Cervical [place] [address] [place] [address] Referral ID Status Reason Start Date Expiration Date Visits Re quested Visits Authorized [id number] Open 01/31/2024 01/30/2025 12 12 Encounter Details Date Type Department Care Team (Late st Contact Info) Description 01/31/2024 Orders Only [facility] Physical Med and Rehab - Re[facility]osp [facility] [address] [place] [address] [place] [address] [place] [address] Brown-Sequard syndrome (Primary Dx); Cord [...] Description 08/24/2024 11:00 AM CDT Video Visit [facility] Physical Med and Rehab - Rehab [facility] [address] [place] [address] [place] [address] [place] [address] Scheduled Referrals Name Type Priority Associated Diagnoses Orde r Schedule AMB REFERRAL TO PHYSICAL THERAPY Outpatient Referral Routine Brown-Sequard syndrome Cord compression Cervical spondylosis with radiculopathy Ordered: 01/31/2024 documented as of this encounter Visit Diagnoses Diagnosis 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
--- OUTSIDE RECORDS SUMMARY | 2024-04-13 08:39 | XMS_ITS | Encounter Summary ---
Author Organization [facility] Address [address] [place] [address] Care Team Providers Care Elementary Instructional Coach Name Role Phone Chung Bhargav Peck MD Primary Care Provider Encounter Details Date Type Department Care Team (Late st Contact Info) Description 01/31/[address] [facility] Physical Med and Rehab - [facility] [address] [place] [phone] [place] [address] [place] [phone] Social History Tobacco Use Types [...] Description 08/24/2024 11:00 AM CDT Video Visit [facility] Physical Med and Rehab - [facility] [address] [place] [phone] [place] [address] [place] [phone] documented as of this encounter Visit Diagnoses Not on filedocumented in this encounter Care Teams Elementary Instructional Coach Relationship Specialty Start Date End Date Bhargav Wilkes MD [address] [place] [phone] PCP - General Family Practice 05/07/22 documented as of this encounter
--- OUTSIDE RECORDS SUMMARY | 2024-04-13 08:39 | XMS_ITS | Encounter Summary ---
Author Organization [facility] Address [address] [place] [address] Care Team Providers Care Carbon Paper Coating Machine Setter Name Role Phone Bhargav Wilkes MD Primary Care Provider Encounter Details Date Type Department Care Team (Late st Contact Info) Description 08/31/2023 External Device Data STL ABSTRACTION Provider, Abstract [...] Description 08/24/2024 11:00 AM CDT Video Visit [facility] Physical Med and Rehab - [facility] [address] [place] [address] [place] [address] [place] [address] documented as of this encounter Visit Diagnoses Not on filedocumented in this encounter Care Teams Carbon Paper Coating Machine Setter Relationship Specialty Start Date End Date Bhargav Wilkes MD [address] [place] [address] [place] [phone] PCP - General Family Practice 05/07/22 documented as of this encounter
--- OUTSIDE RECORDS SUMMARY | 2024-04-13 08:39 | XMS_ITS | Encounter Summary ---
Author Organization [facility] Address [address] [place] [address] Care Team Providers Care Regional Controller Name Role Phone Chung Bhargav Peck MD Primary Care Provider Encounter Details Date Type Department Care Team (Late st Contact Info) Description 02/22/2024 Abstract [facility] Physical Med and Rehab - Re[facility] [address] [place] [phone] [place] [address] [place] [address] Social History Tobacco Use Types [...] Description 08/24/2024 11:00 AM CDT Video Visit [facility] Physical Med and Rehab - [facility] [address] [place] [phone] [place] [address] [place] [address] documented as of this encounter Visit Diagnoses Not on filedocumented in this encounter Care Teams Regional Controller Relationship Specialty Start Date End Date Bhargav Wilkes MD [address] [place] [phone] PCP - General Family Practice 05/07/22 documented as of this encounter
--- OUTSIDE RECORDS SUMMARY | 2024-04-13 08:39 | XMS_ITS | Encounter Summary ---
Author Organization [facility] Address [address] [place] [address] Care Team Providers Care Paper Reel Operator Name Role Phone Chung Bhargav Peck MD Primary Care Provider Encounter Details Date Type Department Care Team (Late st Contact Info) Description 01/27/2024 Abstract [facility] Physical Med and Rehab - Re[facility] [address] [place] [phone] [place] [address] [place] [phone] Social History Tobacco Use Types [...] Description 08/24/2024 11:00 AM CDT Video Visit [facility] Physical Med and Rehab - Re[facility] [address] [place] [phone] [place] [address] [place] [phone] documented as of this encounter Visit Diagnoses Not on filedocumented in this encounter Care Teams Paper Reel Operator Relationship Specialty Start Date End Date Bhargav Wilkes MD [address] [place] [phone] PCP - General Family Practice 05/07/22 documented as of this encounter
--- OUTSIDE RECORDS SUMMARY | 2024-04-13 08:39 | XMS_ITS | Encounter Summary ---
Author Organization [facility] Address [address] [place] [address] Care Team Providers Care Medart Operator Name Role Phone Bhargav Wilkes MD Primary Care Provider Encounter Details Date Type Department Care Team (Late st Contact Info) Description 02/14/2024 External Device Data STL ABSTRACTION Provider, [...] AM CDT Video Visit [facility] Physical Med and Rehab - [facility] [address] [place] [address] [place] [address] [place] [address] documented as of this encounter Visit Diagnoses Not on filedocumented in this encounter Care Teams Medart Operator Relationship Specialty Start Date End Date Bhargav Wilkes MD [address] [place] [address] [place] [phone] PCP - General Family Practice 05/07/22 documented as of this encounter
--- OUTSIDE RECORDS SUMMARY | 2024-04-13 08:40 | XMS_ITS | Encounter Summary ---
Author Organization [facility] Address [address] [place] [address] Care Team Providers Care Retail Helper Name Role Phone Bhargav Wilkes MD Primary Care Provider Reason for Visit * Reason Comments Follow Up Encounter Details Date Type Department Care Team (Late st Contact Info) Description 03/18/2023 12:00 PM POSTER Video Visit [facility] Physical Med and Rehab - [facility] [address] [place] [phone] [place] [address] [place] [address] Brown-Sequard syndrome (Primary Dx) Social History Tobacco Use Types Packs/Day Years Used Date Smoking Tobacco: Former Cigarettes 0.5 5 1 965 - 5107 Smokeless Tobacco: Never Alcohol Use Standard Drinks/Week Comments Never 0 (1 standard drink = 0.6 oz pur e alcohol) Sex and Gender Information Value Date Recorded Sex Assigned at Not on file Gender Identity Not on file Sexual Orientation Not on file documented as of this encounter Progress Notes * Be Rangel DO - 03/18/2023 12:00 PM CST Physical Medicine and Rehabilitation Outpatient Progress Note Patient's identity confirmed yes Patient gave verbal consent to have these services billed to their insurance and expressed understanding that co-insurance and deductible may apply: yes This encounter was completed via two-way synchronous audio and video communication. Patient: Hailee Tanner Date of visit: 03/04/2023 Date of last visit: 02/16/23 Chief complaint: Doing pretty good Subjective: The patient presents for outpatient follow up. she was last seen on 02/16. At the time of that visit, she had tried weaning off of Lyrica and her symptoms were worse and she is experiencing constant leg pain and spasticity. She was having ongoing mental health troubles with feeling worthlessness andloss and frustration. She had been working on her lower extremity functional mobility we spoke about gradual return to driving. We also spoke about resuming her Lyrica Since that time she went back on the Lyrica and found that at 3 times a day dosing she experienced jerkiness of her upper extremities and blurred vision. She reduced the dosing to twice a day and is happy to report that her symptoms are much better overall. She does not have any of the jerkiness orblurred vision. Her nerve pain is greatly improved. Stiffness is minimal as of the spasms. She is sleeping well. She continues to improve with her therapies. She is walking without a cane longer longer distances without assistance from therapy staff. She is starting to walk without any assistive device and therapy. She is going to the grocery store and only using a shopping cart for her mobility assistance. She drove successfully in a parking lot. She has plans to purchase a car in the spring to further increase her independence. Her mood and overall frustration is improved she is pleased with her progress thus far. She notes she is in a good spot generally Review of Systems Constitutional: Negative. Gastrointestinal: Negative. Genitourinary: Negative. Musculoskeletal: Positive for back pain. Negative for falls. Neurological: Positive for tingling. Social History: Living by herself Medications reviewed. Current Outpatient Medications: baclofen (LIORESAL) 10 mg tablet, TAKE 2 TABLETS BY MOUTH FOUR TIMES DAILY, Disp: 720 Tablet, Rfl: 1 amitriptyline (ELAVIL) 25 mg tablet, Take 1 Tablet (25 mg) by mouth daily at bedtime., Disp: 90 Tablet, Rfl: 1 pregabalin (Lyrica) 75 mg Capsule, Take 1 Capsule (75 mg) by mouth every 8 hours., Disp: 270 Capsule, Rfl: 1 diazePAM (VALIUM) 5 mg tablet, [...] displays an appropriate mood and affect. ASSESSMENT/PLAN: 67 y.o. female who underwent C4-6 ACDF and T2-T3 laminectomy on 03/13/[address] 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 she presents today to continue outpatient rehabilitation care. No orders of the defined types were placed in this encounter. 1. Spinal cord injury: Doing very now that her pain is better controlled. She drove successfully and this will help her overall function and peace of mind. Continue with therapies. 2. Spasticity: Stable with baclofen 3. Pain: Stable with twice a day Lyrica Follow up: 6 months Issues to address at follow-up: Overall function Total time spent: 15 minutes. Greater than 50% was spent counseling and coordination of care. Electronically signed by: Be Rangel DO Physical Medicine and Rehabilitation [phone] ATTESTATION STATEMENTS Portions of this note were transcribed using Findline naturally speaking computerized voice recognition without a human manufacturing teacher. This report may or may not have been adjusted for typographical, grammatical and syntax errors or malapropisms. 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
--- OUTSIDE RECORDS SUMMARY | 2024-04-13 08:40 | XMS_ITS | Encounter Summary ---
Author Organization [facility] Address [address] [place] [address] Care Team Providers Care Medical Case Manager Name Role Phone Bhargav Wilkes MD Primary Care Provider Encounter Details Date Type Department Care Team (Late st Contact Info) Description 05/05/2023 External Device Data STL ABSTRACTION Provider, Abstract [...] Description 08/24/2024 11:00 AM CDT Video Visit [facility] Physical Med and Rehab - [facility] [address] [place] [address] [place] [address] [place] [address] documented as of this encounter Visit Diagnoses Not on filedocumented in this encounter Care Teams Medical Case Manager Relationship Specialty Start Date End Date Bhargav Wilkes MD [address] [place] [address] [place] [phone] PCP - General Family Practice 05/07/22 documented as of this encounter
--- OUTSIDE RECORDS SUMMARY | 2024-04-13 08:40 | XMS_ITS | Encounter Summary ---
Author Organization [facility] Address [address] [place] [address] Care Team Providers Care Administrative Services Manager Name Role Phone Bhargav Wilkes MD Primary Care Provider Reason for Visit * Reason Onset Date Comments Question 05/31/2023 Encounter Details Date Type Department Care Team (Late st Contact Info) Description 05/31/2023 Telephone [facility] Neurosurgery - [place] [address] [facility] [address] [place] [address] Eloise Syed, DEDE [address] [facility] [address] [place] [address] Question Social History Tobacco Use Types Packs/Day Years [...] encounter Miscellaneous Notes * Telephone Encounter - Naresh Larios MD - 06/01/2023 3:02 PM CST I spoke to And went over the MRI of her cervical spine I told her that the area of T2 on prolongation in the cord is actually little bit smaller no other changes were noted we did review the MRI with her knee but she is very seen an orthopedic surgeon and under his treatment for the knee I toldher if he think she needs a knee replacement by all means she needs to do that DIE MAKER * Telephone Encounter - Eloise Syed PA - 05/31/2023 4:37 PM CST MRI knee report is in media section. DIE MAKER * Telephone Encounter - Eloise Syed PA - 05/31/2023 11:02 AM CST ----- Message from Hailee Tanner sent at 05/29/2023 7:29 AM BODY DIE MAKER ----- Regarding: Knee Imaging Contact: I got in to an ortho surgeon because it was getting so bad. 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 Steroid injection and a brace. Follow up in three months if I need to. Dr Cerda [facility] in [place]. I am curious though, to hear what my MRI showed of my neck/thoracic. My right leg is ???asleep?? all the time. Left as well, but not as severe. Hailee Tanner. DIE MAKER documented in this encounter Plan of Treatment Upcoming Encounters Date Type Department Care Team (Late st Contact Info) Description 08/24/2024 11:00 AM CDT Video Visit [facility] Physical Med and Rehab - [facility] [address] [place] [address] [place] [address] [place] [address] documented as of this encounter Visit Diagnoses Not on filedocumented in this encounter Care Teams Administrative Services Manager Relationship Specialty Start Date End Date Bhargav Wilkes MD [address] [place] [phone] PCP - General Family Practice 05/07/22 documented as of this encounter
--- OUTSIDE RECORDS SUMMARY | 2024-04-13 08:40 | XMS_ITS | Encounter Summary ---
Author Organization [facility] Address [address] [place] [address] Care Team Providers Care Mushroom Growing Supervisor Name Role Phone Bhargav Wilkes MD Primary Care Provider Encounter Details Date Type Department Care Team (Late st Contact Info) Description 07/06/2023 External Device Data STL ABSTRACTION Provider, Abstract [...] Description 08/24/2024 11:00 AM CDT Video Visit [facility] Physical Med and Rehab - [facility] [address] [place] [address] [place] [address] [place] [address] documented as of this encounter Visit Diagnoses Not on filedocumented in this encounter Care Teams Mushroom Growing Supervisor Relationship Specialty Start Date End Date Bhargav Wilkes MD [address] [place] [address] [place] [phone] PCP - General Family Practice 05/07/22 documented as of this encounter
--- OUTSIDE RECORDS SUMMARY | 2024-04-13 08:40 | XMS_ITS | Encounter Summary ---
Author Organization [facility] Address [address] [place] [address] Care Team Providers Care Furnace Checker Name Role Phone Bhargav Wilkes MD Primary Care Provider Reason for Visit * Reason Comments Follow Up Encounter Details Date Type Department Care Team (Late st Contact Info) Description 10/09/2022 11:00 AM CDT Video Visit [facility] Physical Med and Rehab - Re[facility] [address] [place] [address] [place] [address] [place] [address] Brown-Sequard syndrome (Primary Dx); Cord compression Social History Tobacco Use Types Packs/Day Years Used Date Smoking Tobacco: Former Cigarettes 0.5 5 1 675 - 4543 Smokeless Tobacco: Never Alcohol Use Standard Drinks/Week Comments Never 0 (1 standard drink = 0.6 oz pur e alcohol) Sex and Gender Information Value Date Recorded Sex Assigned at Not on file Gender Identity Not on file Sexual Orientation Not on file documented as of this encounter Progress Notes * Be Rangel DO - 10/09/2022 11:00 AM CDT Physical Medicine and Rehabilitation Outpatient Progress Note Patient's identity confirmed yes Patient gave verbal consent to have these services billed to their insurance and expressed understanding that co-insurance and deductible may apply: yes This encounter was completed via two-way synchronous audio and video communication. Patient: Hailee Tanner Date of visit: 10/09/2022 Date of last visit: 09/09/22 Chief complaint: Doing pretty good Subjective: The patient presents for outpatient follow up. she was last seen on 09/09. At the time of that visit, she was working on a Lyrica wean and was experiencing improved swelling but worsening neuropathic sensations. She was still in therapies and making progress per therapist report but she says she felt like she was not making much progress and was not where she wanted to be. She was able to walk with a cane on Mother's Day which was a goal of hers. Her spasticity was fairly well controlled and hermood was not good with feelings of anger, loneliness, isolation. We started her on amitriptyline for neuropathic pain Since that time she reports the addition of the Elavil was a huge success. Therapies continue to go well. She walked 175 feet with a cane and overhead harness. She is making progress but still wants to work on her independence. Mood is still about the same. Nerve pain is described as tolerable now. She still has muscle stiffness that fluctuates throughout the day and based on immobility. Her sleep is fair and she will often wake with stiffness of her body. Review of Systems Constitutional: Negative. Gastrointestinal: Negative. Genitourinary: Negative. Musculoskeletal: Positive for back pain. Negative for falls. Neurological: Positive for tingling. Social History: Living by herself Medications reviewed. Current Outpatient Medications: amitriptyline (ELAVIL) 25 mg tablet, Take 1 Tablet (25 mg) by mouth daily at bedtime., Disp: 90 Tablet, Rfl: 1 [DISCONTINUED] amitriptyline (ELAVIL) 25 mg tablet, Take 1 Tablet (25 mg) by mouth daily at bedtime., Disp: 30 Tablet, Rfl: 3 pregabalin (Lyrica) 75 mg Capsule, Take 1 Capsule (75 mg) by mouth every 8 hours., Disp: 270 Capsule, Rfl: 1 diazePAM (VALIUM) 5 mg tablet, TAKE 1 TABLET(5 MG) BY MOUTH EVERY NIGHT NEEDED FOR SPASM, Disp: 30 Tablet, Rfl: 1 pregabalin (Lyrica) 75 mg Capsule, Take 1 Capsule (75 mg) by mouth every 8 hours., Disp: 90 Capsule, Rfl: 3 baclofen (LIORESAL) 10 mg tablet, Take 2 Tablets (20 mg) by mouth 4 times daily., Disp: 720 Tablet,Rfl: 1 Miscellaneous Medical Supply, Compression stocking with a [...] Patient displays an appropriate mood and affect. Data Review: Lab Results Component Value Date/Time WBC 4.1 07/16/2021 11:52 AM HGB 11.9 07/16/2021 11:52 AM HGBPOC 11.5 (L) 03/13/2021 02:58 PM HCT 35.8 07/16/2021 11:52 AM PLT 181 07/16/2021 11:52 AM MCV 86.5 07/16/2021 11:52 AM Lab Results Component Value Date/Time NA 140 07/16/2021 11:52 AM K 4.1 07/16/2021 11:52 AM CL 106 07/16/2021 11:52 AM CO2 29 07/16/2021 11:52 AM CA 9.2 07/16/2021 11:52 AM BUN 26 (H) 07/16/2021 11:52 AM CREAT 0.88 07/16/2021 11:52 AM GLUCOSE 92 07/16/2021 11:52 AM TOTALPROTEIN 6.3 07/16/2021 11:52 AM ALBUMIN 3.9 07/16/2021 11:52 AM BILITOTAL 0.6 07/16/2021 11:52 AM ALKPHOS 83 07/16/2021 11:52 AM AST 16 07/16/2021 11:52 AM ALT 17 07/16/2021 11:52 AM ANIONGAP 11 04/14/2021 04:06 AM BCRATIO 30 (H) 07/16/2021 11:52 AM Lab Results Component Value Date INR 1.2 (H) 03/14/2021 Lab Results Component Value Date/Time CRP 4.4 04/14/2021 04:06 AM ASSESSMENT/PLAN: 67 y.o. female who underwent C4-6 ACDF and T2-T3 laminectomy on 03/13/[address] 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 she presents today to continue outpatient rehabilitation care. Orders Placed This Encounter amitriptyline (ELAVIL) 25 mg tablet 1. Spinal cord injury: Continue with outpatient physical therapy. Continue with home exercise program. She is hopeful to start aquatic therapy in the near future at her therapy location. This would be of great benefit to her. 2. Spasticity: Doing okay with baclofen 20mg QID and PRN valium at night 3. Pain: Improved with addition of elavil. Follow up: 3 months Issues to address at follow-up: Overall function, pain, mobility. Total time spent: 15 minutes. Greater than 50% was spent counseling and coordination of care. Electronically signed by: Be Rangel DO Physical Medicine and Rehabilitation [phone] ATTESTATION STATEMENTS Portions of this note were transcribed using Oncovision naturally speaking computerized voice recognition without a human tank charger. This report may or may not have been adjusted for typographical, grammatical and syntax errors or malapropisms. documented in this encounter Plan of Treatment Upcoming Encounters Date Type Department Care Team (Late st Contact Info) Description 08/24/2024 11:00 AM CDT Video Visit 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
--- OUTSIDE RECORDS SUMMARY | 2024-04-13 08:40 | XMS_ITS | Encounter Summary ---
Author Organization [facility] Address [address] [place] [address] Care Team Providers Care Biofuels Production Manager Name Role Phone Bhargav Wilkes MD Primary Care Provider Encounter Details Date Type Department Care Team (Late st Contact Info) Description 07/27/2023 External Device Data STL ABSTRACTION Provider, Abstract [...] Med and Rehab - Rehab Hosp Clinic [address] [place] [address] [place] [address] [place] [address] documented as of this encounter Visit Diagnoses Not on filedocumented in this encounter Care Teams Biofuels Production Manager Relationship Specialty Start Date End Date Bhargav Wilkes MD [address] [place] [address] [place] [phone] PCP - General Family Practice 05/07/22 documented as of this encounter
--- OUTSIDE RECORDS SUMMARY | 2024-04-13 08:40 | XMS_ITS | Encounter Summary ---
Author Organization [facility] Address [address] [place] [address] Care Team Providers Care Local Delivery Driver Name Role Phone Bhargav Wilkes MD Primary Care Provider Encounter Details Date Type Department Care Team (Late st Contact Info) Description 05/04/2023 Abstract [facility] Neurosurgery - [facility] [address] [place] [phone] Naresh Larios MD [address] [facility] [address] [address]x0 (Work) Social History Tobacco Use Types Packs/Day Years [...] AM CDT Video Visit [facility] Physical Med and Rehab - Re[facility]osp [facility] [address] [place] [address] [place] [address] [place] [address] documented as of this encounter Visit Diagnoses Not on filedocumented in this encounter Care Teams Local Delivery Driver Relationship Specialty Start Date End Date Bhargav Wilkes MD [address] [place] [phone] PCP - General Family Practice 05/07/22 documented as of this encounter
--- OUTSIDE RECORDS SUMMARY | 2024-04-13 08:40 | XMS_ITS | Encounter Summary ---
Author Organization [facility] Address [address] [place] [address] Care Team Providers Care Industrial X Ray Operator Name Role Phone Bhargav Wilkes MD Primary Care Provider Reason for Visit * Reason Onset Date Comments Imaging Results 05/05/2023 Encounter Details Date Type Department Care Team (Late st Contact Info) Description 05/05/2023 Telephone [facility] Neurosurgery [address] [place] [phone] Naresh Larios MD [address] [facility] [address] [address] -x0 (Work) Imaging Results Social History Tobacco Use Types Packs/Day [...] encounter Miscellaneous Notes * Telephone Encounter - Violet Emmanuel - 05/05/2023 9:17 AM PATENT EXAMINER Pt called wanting to know if we have received her imaging disc. Checked with Shanda and let her know we have not but to check back soon NT EXAMINER documented in this encounter Plan of Treatment Upcoming Encounters Date Type Department Care Team (Late st Contact Info) Description 08/24/2024 11:00 AM CDT Video Visit [facility] Physical Med and Rehab - Re[facility]osp [facility] [address] [place] [address] [place] [address] [place] [address] documented as of this encounter Visit Diagnoses Not on filedocumented in this encounter Care Teams Industrial X Ray Operator Relationship Specialty Start Date End Date Bhargav Wilkes MD [address] [place] [phone] PCP - General Family Practice 05/07/22 documented as of this encounter
--- OUTSIDE RECORDS SUMMARY | 2024-04-13 08:40 | XMS_ITS | Encounter Summary ---
Author Organization [facility] Address [address] [place] [address] Care Team Providers Care School Administrator Name Role Phone Chung Bhargav Peck MD Primary Care Provider Encounter Details Date Type Department Care Team (Late st Contact Info) Description 10/07/2022 Abstract [facility] Physical Med and Rehab - Rehab [facility]osp Clinic [address] [place] [address] [place] [address] [place] [address] Social History Tobacco Use Types [...] Description 08/24/2024 11:00 AM CDT Video Visit [facility] Physical Med and Rehab - Re[facility]osp [facility] [address] [place] [address] [place] [address] [place] [address] documented as of this encounter Visit Diagnoses Not on filedocumented in this encounter Care Teams School Administrator Relationship Specialty Start Date End Date Bhargav Wilkes MD [address] [place] [phone] PCP - General Family Practice 05/07/22 documented as of this encounter
--- OUTSIDE RECORDS SUMMARY | 2024-04-13 08:40 | XMS_ITS | Encounter Summary ---
Author Organization [facility] Address [address] [place] [address] Care Team Providers Care Machine Set Up Operator Name Role Phone Chung Bhargav Peck MD Primary Care Provider Encounter Details Date Type Department Care Team (Late st Contact Info) Description 06/08/2023 Abstract [facility] Physical Med and Rehab - Re[facility]osp [facility] [address] [place] [address] [place] [address] [place] [address] Social History Tobacco Use Types [...] 08/24/2024 11:00 AM CDT Video Visit [facility] Physical Med and Rehab - [facility] [address] [place] [phone] [place] [address] [place] [address] documented as of this encounter Visit Diagnoses Not on filedocumented in this encounter Care Teams Machine Set Up Operator Relationship Specialty Start Date End Date Bhargav Wilkes MD [address] [place] [phone] PCP - General Family Practice 05/07/22 documented as of this encounter
--- OUTSIDE RECORDS SUMMARY | 2024-04-13 08:40 | XMS_ITS | Encounter Summary ---
Author Organization [facility] Address [address] [place] [address] Care Team Providers Care Co Teacher Name Role Phone Chung Bhargav Peck MD Primary Care Provider Encounter Details Date Type Department Care Team (Late st Contact Info) Description 05/12/2023 Abstract [facility] Physical Med and Rehab - Re[facility] [address] [place] [address] [place] [address] [place] [address] Social History Tobacco Use Types [...] Med and Rehab - Re[facility]osp Clinic [address] [place] [address] [place] [address] [place] [address] documented as of this encounter Visit Diagnoses Not on filedocumented in this encounter Care Teams Co Teacher Relationship Specialty Start Date End Date Bhargav Wilkes MD [address] [place] [phone] PCP - General Family Practice 05/07/22 documented as of this encounter
--- OUTSIDE RECORDS SUMMARY | 2024-04-13 08:40 | XMS_ITS | Encounter Summary ---
Author Organization [facility] Address [address] [place] [address] Care Team Providers Care Functional Architect Name Role Phone Bhargav Wilkes MD Primary Care Provider Reason for Referral * Eval and Treat (Routine) - Authorized Specialty Diagnoses / Procedures Referred By Darlene hodgson Referred To Contact Diagnoses [place] [address] [place] [address] [facility] Physical Therapy [address] [place] [phone] Referral ID Status Reason Start Date Expiration Date V isits Requested Visits Authorized [id number] Authorized 05/14/2023 05/14/2024 6 6 IFIED MEDICAL TRANSCRIPTIONIST Encounter Details Date Type Department Care Team (Late st Contact Info) Description 05/14/2023 Orders Only [facility] Physical Med and Rehab - [facility] [address] [place] [phone] [place] [address] [place] [address] Brown-Sequard syndrome (Primary Dx) Social [...] Description 08/24/2024 11:00 AM CDT Video Visit [facility] Physical Med and Rehab - Rehab Hosp [facility] [address] [place] [address] [place] [address] [place] [address] Scheduled Referrals Name Type Priority Associated Diagnoses Orde r Schedule AMB REFERRAL TO PHYSICAL THERAPY Outpatient Referral Routine Brown-Sequard syndrome Ordered: 05/14/2023 documented as of this encounter Visit Diagnoses Diagnosis 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
--- OUTSIDE RECORDS SUMMARY | 2024-04-13 08:40 | XMS_ITS | Encounter Summary ---
Author Organization [facility] Address [address] [place] [address] Care Team Providers Care Resource Technician Name Role Phone Chung Bhargav Peck MD Primary Care Provider Encounter Details Date Type Department Care Team (Late st Contact Info) Description 11/30/2022 Abstract [facility] Physical Med and Rehab [facility] [address] [place] [phone] [place] [address] [place] [address] Social History Tobacco Use Types [...] Med and Rehab - [facility] [address] [place] [phone] [place] [address] [place] [address] documented as of this encounter Visit Diagnoses Not on filedocumented in this encounter Care Teams Resource Technician Relationship Specialty Start Date End Date Bhargav Wilkes MD [address] [place] [phone] PCP - General Family Practice 05/07/22 documented as of this encounter
--- OUTSIDE RECORDS SUMMARY | 2024-04-13 08:40 | XMS_ITS | Encounter Summary ---
Author Organization [facility] Address [address] [place] [address] Care Team Providers Care Medical Policy Specialist Name Role Phone Bhargav Wilkes MD Primary Care Provider Reason for Referral * MRI (Routine) - Closed Specialty Diagnoses / Procedures Referred By Dougac t Referred To Contact Diagnoses Right leg numbness Thoracic spondylosis with cord compression Cervical spondylosis with radiculopathy Procedures MRI CERVICAL WO CONTRAST Naresh Larios MD [address] [place] [address] [address] [place] [address] Referral ID Status Reason Start Date Expiration Date Visits Re quested Visits Authorized [id number] Closed 04/22/2023 05/22/2024 1 1 CH ASSOCIATE TELLER * MRI (Routine) - Closed Specialty Diagnoses / Procedures Referred By Contac t Referred To Contact Diagnoses Right leg numbness Thoracic spondylosis with cord compression Cervical spondylosis with radiculopathy Procedures MRI KNEE WO CONTRAST RIGHT Naresh Larios MD [facility] [address] [address] x0 [place] [id number] Referral ID Status Reason Start Date Expiration Date Visits Re quested Visits Authorized [id number] Closed 04/22/2023 05/22/2024 1 1 CH ASSOCIATE TELLER Encounter Details Date Type Department Care Team (Late Contact Info) Description 04/22/[address] [facility] Neurosurgery - Medical [place] [address] [facility] [address] [place] [address] Naresh Larios MD [address] [facility] [address] [address]x0 (Work) Cervical spondylosis with radiculopathy (Primary Dx); Right leg numbness; Thoracic spondylosis with cord compression Social History [...] 08/24/2024 11:00 AM CDT Video Visit [facility] Physical Med and Rehab - [facility] [address] [place] [phone] [place] [address] [place] [address] Scheduled Orders Name Type Priority Associated Diagnoses Orde r Schedule MRI KNEE WO CONTRAST RIGHT Imaging Routine Right leg numbness Thoracic spondylosis with cord compression Cervical spondylosis with radiculopathy 1 Occurrences starting 04/22/2023 until 04/21/2024 MRI CERVICAL WO CONTRAST Imaging Routine Right leg numbness Thoracic spondylosis with cord compression Cervical spondylosis with radiculopathy 1 Occurrences starting 04/22/2023 until 04/22/2024 documented as of this encounter Visit Diagnoses Diagnosis Cervical spondylosis with radiculopathy- Primary Cervical spondylosis with myelopathy Right leg numbness Disturbance of skin sensation 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
--- OUTSIDE RECORDS SUMMARY | 2024-04-13 08:40 | XMS_ITS | Encounter Summary ---
Author Organization [facility] Address [address] [place] [address] Care Team Providers Care Skip Miner Name Role Phone Bhargav Wilkes MD Primary Care Provider Encounter Details Date Type Department Care Team (Late st Contact Info) Description 06/25/2023 External Device Data STL ABSTRACTION Provider, Abstract [...] Med and Rehab - Rehab Hosp Clinic [address] [place] [address] [place] [address] [place] [address] documented as of this encounter Visit Diagnoses Not on filedocumented in this encounter Care Teams Skip Miner Relationship Specialty Start Date End Date Bhargav Wilkes MD [address] [place] [address] [place] [phone] PCP - General Family Practice 05/07/22 documented as of this encounter
--- OUTSIDE RECORDS SUMMARY | 2024-04-13 08:40 | XMS_ITS | Encounter Summary ---
Author Organization [facility] Address [address] [place] [address] Care Team Providers Care Chaperon Name Role Phone Chung Bhargav Peck MD Primary Care Provider Encounter Details Date Type Department Care Team (Late st Contact Info) Description 01/25/2023 Abstract [facility] Physical Med and Rehab - [facility] [address] [place] [phone] [place] [address] [place] [address] Social History Tobacco Use Types [...] Med and Rehab - Re[facility] [address] [place] [phone] [place] [address] [place] [address] documented as of this encounter Visit Diagnoses Not on filedocumented in this encounter Care Teams Chaperon Relationship Specialty Start Date End Date Bhargav Wilkes MD [address] [place] [phone] PCP - General Family Practice 05/07/22 documented as of this encounter
--- OUTSIDE RECORDS SUMMARY | 2024-04-13 08:40 | XMS_ITS | Encounter Summary ---
Author Organization [facility] Address [address] [place] [address] Care Team Providers Care Transfer Coordinator Name Role Phone Chung, Bhargav Peck MD Primary Care Provider Reason for Visit * Reason Comments Med Refill Encounter Details Date Type Department Care Team (Late st Contact Info) Description 01/29/2023 Refill [facility] Physical Med and Rehab - Re[facility] [address] [place] [phone] [place] [address] [place] [address] Social History Tobacco Use Types [...] Description 08/24/2024 11:00 AM CDT Video Visit [facility] Physical Med and Rehab - Re[facility] [address] [place] [phone] [place] [address] [place] [address] documented as of this encounter Visit Diagnoses Not on filedocumented in this encounter Care Teams Transfer Coordinator Relationship Specialty Start Date End Date Bhargav Wilkes MD [address] [place] [phone] PCP - General Family Practice 05/07/22 documented as of this encounter
--- OUTSIDE RECORDS SUMMARY | 2024-04-13 08:40 | XMS_ITS | Encounter Summary ---
Author Organization [facility] Address [address] [place] [address] Care Team Providers Care Transportation Sales Consultant Name Role Phone Bhargav Wilkes MD Primary Care Provider Encounter Details Date Type Department Care Team (Late st Contact Info) Description 03/26/2023 External Device Data STL ABSTRACTION Provider, Abstract [...] 08/24/2024 11:00 AM CDT Video Visit [facility] Physical Med and Rehab - Rehab Hosp Clinic [address] [place] [address] [place] [address] [place] [address] documented as of this encounter Visit Diagnoses Not on filedocumented in this encounter Care Teams Transportation Sales Consultant Relationship Specialty Start Date End Date Bhargav Wilkes MD [address] [place] [address] [place] [phone] PCP - General Family Practice 05/07/22 documented as of this encounter
--- OUTSIDE RECORDS SUMMARY | 2024-04-13 08:40 | XMS_ITS | Encounter Summary ---
Author Organization [facility] Address [address] [place] [address] Care Team Providers Care Microbiology Professor Name Role Phone Bhargav Wilkes MD Primary Care Provider Reason for Visit * Reason Onset Date Comments results 04/23/2023 Encounter Details Date Type Department Care Team (Late st Contact Info) Description 04/23/2023 Telephone [facility] Neurosurgery - Medical [place] [address] [facility] [address] [facility] [place] [address] Naresh Larios MD [address] [facility] [address] [facility] [address]x0 (Work) results Social History Tobacco Use Types Packs/Day Years [...] Telephone Encounter - Naresh Larios MD - 04/27/2023 1:25 PM CST I spoke to her and explained that I think it is her right knee and not coming from her spine She says she has been driving in parking lot and doing pretty well so Shanda can you send her note tell her that it is okay for her to start driving again and controlled situations PAN OPERATOR * Telephone Encounter - Gia Mari - 04/23/2023 10:37 AM DRY PAN OPERATOR Pt called back returning your call. Please call her. PAN OPERATOR documented in this encounter Plan of Treatment Upcoming Encounters Date Type Department Care Team (Late st Contact Info) Description 08/24/2024 11:00 AM CDT Video Visit [facility] Physical Med and Rehab - Rehab Hosp Clinic [address] [place] [address] Be Rangel, [address] [place] [address] documented as of this encounter Visit Diagnoses Not on filedocumented in this encounter Care Teams Microbiology Professor Relationship Specialty Start Date End Date Bhargav Wilkes MD [address] [place] [phone] PCP - General Family Practice 05/07/22 documented as of this encounter
--- OUTSIDE RECORDS SUMMARY | 2024-04-13 08:40 | XMS_ITS | Encounter Summary ---
Author Organization [facility] Address [address] [place] [address] Care Team Providers Care Hr Receptionist Name Role Phone Bhargav Wilkes MD Primary Care Provider Reason for Visit * Reason Comments Follow Up Encounter Details Date Type Department Care Team (Late st Contact Info) Description 01/12/2023 11:30 AM CDT Video Visit [facility] Physical Med and Rehab - Rehab Hosp Clinic [address] [place] [address] [place] [address] [place] [address] Brown-Sequard syndrome (Primary Dx); Cord compression Social History Tobacco Use Types Packs/Day Years Used Date Smoking Tobacco: Former Cigarettes 0.5 5 1 445 - 3380 Smokeless Tobacco: Never Alcohol Use Standard Drinks/Week Comments Never 0 (1 standard drink = 0.6 oz pur e alcohol) Sex and Gender Information Value Date Recorded Sex Assigned at Not on file Gender Identity Not on file Sexual Orientation Not on file documented as of this encounter Progress Notes * Be Rangel DO - 01/12/2023 11:30 AM CDT Physical Medicine and Rehabilitation Outpatient Progress Note Patient's identity confirmed yes Patient gave verbal consent to have these services billed to their insurance and expressed understanding that co-insurance and deductible may apply: yes This encounter was completed via two-way synchronous audio and video communication. Patient: Hailee Tanner Date of visit: 01/12/2023 Date of last visit: 10/09/22 Chief complaint: No doing so hot Subjective: The patient presents for outpatient follow up. she was last seen on 10/09. At the time of that visit, she reported Elavil was helpful for her pain. She was making progress in therapies. Since that time she reports good days and bad days overall. She has noted some recent blurred/double vision over the last 3 weeks. She has seen her humane agent who noted no change upon exam. Therapies are ongoing, she says she will have good days and bad days with therapies. She is walking more andmore with a cane and her goal is to walk without a cane. Her nerve pain is ongoing and inconsistentin its presentation. She notes occasional bee sting sensations in her feet that will then turn into spasms of her legs. She is not sure the Lyrica is helping and she is concerned about side effectsof weight gain. She is interested in weaning off of the medication. Review of Systems Constitutional: Negative. Eyes: Positive for blurred vision and double vision. Gastrointestinal: Negative. Genitourinary: Negative. Musculoskeletal: Positive for [...] in this encounter. 1. Spinal cord injury: Continue with therapies. Overall, she continues to make progress. She is nowwalking with a cane. She does utilize a wheelchair when she goes to visit her [employer] sporting events. She does have a goal to walk without a cane. 2. Spasticity: Stable with baclofen 3. Pain: She is wondering if the Lyrica is necessary. We spoke about weaning parameters and close monitoring of potential worsening of symptoms that would indicate the necessity to continue the medication. Follow up: 6 weeks Issues to address at follow-up: Overall function, pain Total time spent: 25 minutes. Greater than 50% was spent counseling and coordination of care. Electronically signed by: Be Rangel DO Physical Medicine and Rehabilitation [phone] ATTESTATION STATEMENTS Portions of this note were transcribed using [employer] naturally speaking computerized voice recognition without a human steward/stewardess economy class. This report may or may not have been adjusted for typographical, grammatical and syntax errors or malapropisms. 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
--- OUTSIDE RECORDS SUMMARY | 2024-04-13 08:40 | XMS_ITS | Encounter Summary ---
Author Organization [facility] Address [address] [place] [address] Care Team Providers Care Product Promoter Sales Person Name Role Phone Bhargav Wilkes MD Primary Care Provider Encounter Details Date Type Department Care Team (Late st Contact Info) Description 02/25/2023 External Device Data STL ABSTRACTION Provider, Abstract [...] 08/24/2024 11:00 AM CDT Video Visit [facility] Physical Med and Rehab - Rehab Hosp Clinic [address] [place] [address] [place] [address] [place] [address] documented as of this encounter Visit Diagnoses Not on filedocumented in this encounter Care Teams Product Promoter Sales Person Relationship Specialty Start Date End Date Bhargav Wilkes MD [address] [place] [address] [place] [phone] PCP - General Family Practice 05/07/22 documented as of this encounter
--- OUTSIDE RECORDS SUMMARY | 2024-04-13 08:40 | XMS_ITS | Encounter Summary ---
Author Organization [facility] Address [address] [address] Care Team Providers Care Archivist Name Role Phone Chung Bhargav Peck MD Primary Care Provider Reason for Visit * Reason Comments Med Refill Encounter Details Date Type Department Care Team (Late Contact Info) Description 04/11/2023 Refill [facility] Neurosurgery - 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
--- OUTSIDE RECORDS SUMMARY | 2024-04-13 08:40 | XMS_ITS | Encounter Summary ---
Author Organization [facility] Address [address] [place] [address] Care Team Providers Care Air Pollution Auditor Name Role Phone Chung Bhargav Peck MD Primary Care Provider Encounter Details Date Type Department Care Team (Late st Contact Info) Description 10/01/2022 Abstract [facility] Physical Med and Rehab - Rehab Hosp Clinic [address] [place] [address] [place] [address] [place] [address] Social History Tobacco Use Types [...] Med and Rehab - Rehab Hosp Clinic [address] [place] [phone] [place] [address] [place] [address] documented as of this encounter Visit Diagnoses Not on filedocumented in this encounter Care Teams Air Pollution Auditor Relationship Specialty Start Date End Date Bhargav Wilkes MD [address] [place] [phone] PCP - General Family Practice 05/07/22 documented as of this encounter
--- OUTSIDE RECORDS SUMMARY | 2024-04-13 08:40 | XMS_ITS | Encounter Summary ---
Author Organization [facility] Address [address] [place] [address] Care Team Providers Care Examination Scorer Name Role Phone Chung, Bhargav Peck MD Primary Care Provider Reason for Visit * Reason Comments Med Refill Encounter Details Date Type Department Care Team (Late st Contact Info) Description 04/10/2023 Refill [facility] Physical Med and Rehab - Re[facility] [address] [place] [phone] [place] [address] [place] [address] Social History Tobacco Use Types [...] Med and Rehab - Re[facility] [address] [place] [phone] [place] [address] [place] [address] documented as of this encounter Visit Diagnoses Not on filedocumented in this encounter Care Teams Examination Scorer Relationship Specialty Start Date End Date Bhargav Wilkes MD [address] [place] [phone] PCP - General Family Practice 05/07/22 documented as of this encounter
--- OUTSIDE RECORDS SUMMARY | 2024-04-13 08:40 | XMS_ITS | Encounter Summary ---
Author Organization [facility] Address [address] [place] [address] Care Team Providers Care Carton Stamper Name Role Phone Bhargav Wilkes MD Primary Care Provider Encounter Details Date Type Department Care Team (Late st Contact Info) Description 12/31/2022 External Device Data STL ABSTRACTION Provider, Abstract [...] Description 08/24/2024 11:00 AM CDT Video Visit [facility] Physical Med and Rehab - Rehab Hosp Clinic [address] [place] [address] [place] [address] [place] [address] documented as of this encounter Visit Diagnoses Not on filedocumented in this encounter Care Teams Carton Stamper Relationship Specialty Start Date End Date Bhargav Wilkes MD [address] [place] [address] [place] [phone] PCP - General Family Practice 05/07/22 documented as of this encounter
--- OUTSIDE RECORDS SUMMARY | 2024-04-13 08:40 | XMS_ITS | Encounter Summary ---
Author Organization [facility] Address [address] [place] [address] Care Team Providers Care Physical Science Teacher Name Role Phone Chung Bhargav Peck MD Primary Care Provider Encounter Details Date Type Department Care Team (Late st Contact Info) Description 09/25/2022 Abstract [facility] Physical Med and Rehab - Rehab Hosp Clinic [address] [place] [phone] [place] [address] [place] [address] Social History Tobacco Use Types [...] Description 08/24/2024 11:00 AM CDT Video Visit [facility] Physical Med and Rehab - Rehab Hosp Clinic [address] [place] [address] [place] [address] [place] [address] documented as of this encounter Visit Diagnoses Not on filedocumented in this encounter Care Teams Physical Science Teacher Relationship Specialty Start Date End Date Bhargav Wilkes MD [address] [place] [phone] PCP - General Family Practice 05/07/22 documented as of this encounter
--- OUTSIDE RECORDS SUMMARY | 2024-04-13 08:40 | XMS_ITS | Encounter Summary ---
Author Organization [facility] Address [address] [place] [address] Care Team Providers Care Inhalation Therapy Aides Teacher Name Role Phone Chung Bhargav Peck MD Primary Care Provider Encounter Details Date Type Department Care Team (Late st Contact Info) Description 12/21/2022 Abstract [facility] Physical Med and Rehab - Rehab Hosp Clinic [address] [place] [phone] [place] [address] [place] [address] Social History Tobacco Use Types [...] Description 08/24/2024 11:00 AM CDT Video Visit [facility] Physical Med and Rehab - Rehab Hosp Clinic [address] [place] [phone] [place] [address] [place] [address] documented as of this encounter Visit Diagnoses Not on filedocumented in this encounter Care Teams Inhalation Therapy Aides Teacher Relationship Specialty Start Date End Date Bhargav Wilkes MD [address] [place] [phone] PCP - General Family Practice 05/07/22 documented as of this encounter
--- OUTSIDE RECORDS SUMMARY | 2024-04-13 08:40 | XMS_ITS | Encounter Summary ---
Author Organization [facility] Address [address] [place] [address] Care Team Providers Care Supervisor Finishing Name Role Phone Chung Bhargav Peck MD Primary Care Provider Encounter Details Date Type Department Care Team (Late st Contact Info) Description 10/16/2022 Abstract [facility] [address] [place] [phone] [place] [address] [place] [address] Social History Tobacco Use Types [...] 08/24/2024 11:00 AM CDT Video Visit [facility] [address] [place] [phone] [place] [address] [place] [address] documented as of this encounter Visit Diagnoses Not on filedocumented in this encounter Care Teams Supervisor Finishing Relationship Specialty Start Date End Date Bhargav Wilkes MD [address] [place] [phone] PCP - General Family Practice 05/07/22 documented as of this encounter
--- OUTSIDE RECORDS SUMMARY | 2024-04-13 08:40 | XMS_ITS | Encounter Summary ---
Author Organization [facility] Address [address] [place] [address] Care Team Providers Care Printing Press Operator Apprentice Name Role Phone Bhargav Wilkes MD Primary Care Provider Encounter Details Date Type Department Care Team (Late st Contact Info) Description 05/31/2023 External Device Data STL ABSTRACTION Provider, Abstract [...] Description 08/24/2024 11:00 AM CDT Video Visit [facility] Med and Rehab [facility] [address] [place] [address] [place] [address] [place] [address] documented as of this encounter Visit Diagnoses Not on filedocumented in this encounter Care Teams Printing Press Operator Apprentice Relationship Specialty Start Date End Date Bhargav Wilkes MD [address] [place] [address] [place] [phone] PCP - General Family Practice 05/07/22 documented as of this encounter
--- OUTSIDE RECORDS SUMMARY | 2024-04-13 08:40 | XMS_ITS | Encounter Summary ---
Author Organization [facility] Address [address] [place] [address] Care Team Providers Care Bleach Tester Name Role Phone Chung Bhargav Peck MD Primary Care Provider Encounter Details Date Type Department Care Team (Late st Contact Info) Description 12/30/2022 Orders Only [facility] Physical Med and Rehab [facility] [address] [place] [phone] [place] [address] [place] [address] Social History Tobacco Use Types [...] Progress Notes * Be Rangel DO - 12/30/2022 12:13 PM CDT Orders Placed This Encounter walker (Ultra-Light Rollator) documented in this encounter Plan of Treatment Upcoming Encounters Date Type Department Care Team (Late st Contact Info) Description 08/24/2024 11:00 AM CDT Video Visit [facility] Med [facility] Re[facility] [address] [place] [address] [place] [address] [place] [address] documented as of this encounter Visit Diagnoses Not on filedocumented in this encounter Care Teams Bleach Tester Relationship Specialty Start Date End Date Bhargav Wilkes MD [address] [place] [phone] PCP - General Family Practice 05/07/22 documented as of this encounter
--- OUTSIDE RECORDS SUMMARY | 2024-04-13 08:40 | XMS_ITS | Encounter Summary ---
Author Organization [facility] Address [address] [place] [address] Care Team Providers Care Food Processing Chemist Name Role Phone Bhargav Wilkes MD Primary Care Provider Reason for Visit * Reason Comments Follow Up Encounter Details Date Type Department Care Team (Late st Contact Info) Description 02/16/2023 11:00 AM LAVENDER FARM WORKER Video Visit [facility] Physical Med and Rehab - [facility] [address] [place] [phone] [place] [address] [place] [address] Brown-Sequard syndrome (Primary Dx) Social History Tobacco Use Types Packs/Day Years Used Date Smoking Tobacco: Former Cigarettes 0.5 5 1 085 - 0983 Smokeless Tobacco: Never Alcohol Use Standard Drinks/Week Comments Never 0 (1 standard drink = 0.6 oz pur e alcohol) Sex and Gender Information Value Date Recorded Sex Assigned at Not on file Gender Identity Not on file Sexual Orientation Not on file documented as of this encounter Progress Notes * Be Rangel DO - 02/16/2023 11:00 AM CST Physical Medicine and Rehabilitation Outpatient Progress Note Patient's identity confirmed yes Patient gave verbal consent to have these services billed to their insurance and expressed understanding that co-insurance and deductible may apply: yes This encounter was completed via two-way synchronous audio and video communication. Patient: Hailee Tanner Date of visit: 02/16/2023 Date of last visit: 01/12/23 Chief complaint: Rough couple of weeks Subjective: The patient presents for outpatient follow up. she was last seen on 01/12. At the time of that visit, she noted good days and bad days overall with therapies and function. She had ongoing inconsistentnerve pains. She was not sure the Lyrica was helping and she was concerned about weight gain as a side effect. She was interested in weaning off of the medication and we spoke about parameters to wean the Lyrica. Since that time she weaned herself off of the Lyrica and her symptoms have returned/worsened. She has ongoing pain in her legs that is now constant. She also has been experiencing worsening spasticity even though her dosing of baclofen has not changed. She still has ongoing feelings of worthlessness and loss, having trouble excepting her current functional status. She does not want to be a burden on her friends and family. She does states she takesout her frustrations on her kids. She is interested in returning to driving. She has been working with her therapist on her foot and leg reflexes. She is ambulating more easily. She is utilizing a cane more and more in the home. Review of Systems Constitutional: Negative. Eyes: Positive [...] encounter. 1. Spinal cord injury: Functionally she continues to make slow improvements. She is still limiting herself somewhat based on her mood and having trouble coping. We spoke about reaching out to the [facility] medicine [place] for counseling options. As far as driving, she is medically appropriate to initiate the return to driving process. I recommend she start driving again in an empty p arking lot with a trusted, licensed adult driver's license examiner in the passenger seat and advance as she and the other driver's license examiner is comfortable. I informed the patient that if at any time one or both of them are hesitant to proceed, they can contact me for a referral for a formal driver's license examiner's evaluation through therapy. 2. Spasticity: Stable with baclofen 3. Pain: Going back on the lyrica as her nerve pain was worse off the medication. 75mg TID Follow up: 1 month Issues to address at follow-up: pain, function, driving Total time spent: 25 minutes. Greater than 50% was spent counseling and coordination of care. Electronically signed by: Be Rangel DO Physical Medicine and Rehabilitation [phone] ATTESTATION STATEMENTS Portions of this note were transcribed using [employer] speaking computerized voice recognition without a human roustabout. This report may or may not have been adjusted for typographical, grammatical and syntax errors or malapropisms. 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
--- OUTSIDE RECORDS SUMMARY | 2024-04-13 08:40 | XMS_ITS | Encounter Summary ---
Author Organization [facility] Address [address] [place] [address] Care Team Providers Care Digital Project Manager Name Role Phone Bhargav Wilkes MD Primary Care Provider Reason for Visit * Reason Onset Date Comments Imaging Results 05/25/2023 Encounter Details Date Type Department Care Team (Late st Contact Info) Description 05/25/2023 Telephone [facility] Neurosurgery - [facility] [address] [facility] [place] [place] [address] Naresh Larios MD [address] [facility] [address] [place] [place] [address] -x0 (Work) Imaging Results Social [...] Miscellaneous Notes * Telephone Encounter - Shanda Min - 05/25/2023 1:16 PM CST Patient's imaging disc finally arrived in the mail and I have uploaded it to [employer] for you to review ITY CONTROL LEAD documented in this encounter Plan of Treatment Upcoming Encounters Date Type Department Care Team (Late st Contact Info) Description 08/24/2024 11:00 AM CDT Video Visit [facility] Physical Med and Rehab - [facility] [address] [place] [phone] [place] [address] [place] [address] documented as of this encounter Visit Diagnoses Not on filedocumented in this encounter Care Teams Digital Project Manager Relationship Specialty Start Date End Date Bhargav Wilkes MD [address] [place] [phone] PCP - General Family Practice 05/07/22 documented as of this encounter
--- OUTSIDE RECORDS SUMMARY | 2024-04-13 08:40 | XMS_ITS | Encounter Summary ---
Author Organization [facility] Address [address] [place] [address] Care Team Providers Care Senior Risk Manager Name Role Phone Chung Bhargav Peck MD Primary Care Provider Encounter Details Date Type Department Care Team (Late st Contact Info) Description 05/14/2023 Abstract [facility] Physical Med and Rehab - [facility] [address] [place] [phone] [place] [address] [place] [address] Social History Tobacco Use Types [...] Description 08/24/2024 11:00 AM CDT Video Visit [facility] Physical Med and Rehab [facility] [address] [place] [phone] [place] [address] [place] [address] documented as of this encounter Visit Diagnoses Not on filedocumented in this encounter Care Teams Senior Risk Manager Relationship Specialty Start Date End Date Bhargav Wilkes MD [address] [place] [phone] PCP - General Family Practice 05/07/22 documented as of this encounter
--- OUTSIDE RECORDS SUMMARY | 2024-04-13 08:40 | XMS_ITS | Encounter Summary ---
Author Organization [facility] Address [address] [place] [address] Care Team Providers Care Brand Leader Name Role Phone Chung Bhargav Peck MD Primary Care Provider Encounter Details Date Type Department Care Team (Late st Contact Info) Description 08/11/2023 Abstract [facility] Physical Med and Rehab [facility] [address] [place] [phone] [place] [address] [place] [address] Social History Tobacco Use Types [...] Description 08/24/2024 11:00 AM CDT Video Visit [facility] Physical Med and Rehab [facility] [address] [place] [phone] [place] [address] [place] [address] documented as of this encounter Visit Diagnoses Not on filedocumented in this encounter Care Teams Brand Leader Relationship Specialty Start Date End Date Bhargav Wilkes MD [address] [place] [phone] PCP - General Family Practice 05/07/22 documented as of this encounter
--- OUTSIDE RECORDS SUMMARY | 2024-04-13 08:40 | XMS_ITS | Encounter Summary ---
Author Organization [facility] Address [address] [place] [address] Care Team Providers Care Cash Poster Name Role Phone Chung Bhargav Peck MD Primary Care Provider Encounter Details Date Type Department Care Team (Late st Contact Info) Description 04/01/2023 Abstract [facility] Physical Med and Rehab - [facility] [address] [place] [phone] [place] [address] [place] [address] Social History Tobacco Use Types [...] Med and Rehab - Re[facility]osp [facility] [address] [place] [phone] [place] [address] [place] [address] documented as of this encounter Visit Diagnoses Not on filedocumented in this encounter Care Teams Cash Poster Relationship Specialty Start Date End Date Bhargav Wilkes MD [address] [place] [phone] PCP - General Family Practice 05/07/22 documented as of this encounter
--- OUTSIDE RECORDS SUMMARY | 2024-04-13 08:40 | XMS_ITS | Encounter Summary ---
Author Organization [facility] Address [address] [place] [address] Care Team Providers Care Boardinghouse Keeper Name Role Phone Chung Bhargav Peck MD Primary Care Provider Encounter Details Date Type Department Care Team (Late st Contact Info) Description 03/01/2023 Abstract [facility] Physical Med [facility] Rehab [facility] [address] [place] [phone] [place] [address] [place] [address] Social History Tobacco Use Types [...] 08/24/2024 11:00 AM CDT Video Visit [facility] Rehab [facility] [address] [place] [phone] [place] [address] [place] [address] documented as of this encounter Visit Diagnoses Not on filedocumented in this encounter Care Teams Boardinghouse Keeper Relationship Specialty Start Date End Date Bhargav Wilkes MD [address] [place] [phone] PCP - General Family Practice 05/07/22 documented as of this encounter
--- OUTSIDE RECORDS SUMMARY | 2024-04-13 08:40 | XMS_ITS | Encounter Summary ---
Author Organization [facility] Address [address] [place] [address] Care Team Providers Care Hinging Machine Operator Name Role Phone Chung Bhargav Peck MD Primary Care Provider Encounter Details Date Type Department Care Team (Late st Contact Info) Description 01/28/2023 Abstract [facility] Physical Med and Rehab - [facility] [address] [place] [phone] [place] [address] [place] [address] Social History Tobacco Use Types [...] Description 08/24/2024 11:00 AM CDT Video Visit [facility] Physical Med and Rehab - [facility] [address] [place] [phone] [place] [address] [place] [address] documented as of this encounter Visit Diagnoses Not on filedocumented in this encounter Care Teams Hinging Machine Operator Relationship Specialty Start Date End Date Bhargav Wilkes MD [address] [place] [phone] PCP - General Family Practice 05/07/22 documented as of this encounter
--- OUTSIDE RECORDS SUMMARY | 2024-04-13 08:40 | XMS_ITS | Encounter Summary ---
Author Organization [facility] Address [address] [place] [address] Care Team Providers Care Material Loader Name Role Phone Chung Bhargav Peck MD Primary Care Provider Encounter Details Date Type Department Care Team (Late st Contact Info) Description 10/05/2022 Abstract [facility] Physical Med and Rehab - [facility] [address] [place] [phone] [place] [address] [place] [address] Social History Tobacco Use Types [...] Description 08/24/2024 11:00 AM CDT Video Visit [facility] Physical Med and Rehab [facility] [address] [place] [phone] [place] [address] [place] [address] documented as of this encounter Visit Diagnoses Not on filedocumented in this encounter Care Teams Material Loader Relationship Specialty Start Date End Date Bhargav Wilkes MD [address] [place] [phone] PCP - General Family Practice 05/07/22 documented as of this encounter
--- OUTSIDE RECORDS SUMMARY | 2024-04-13 08:40 | XMS_ITS | Encounter Summary ---
Author Organization [facility] Address 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 Physical Med and Rehab [facility] [address] [place] [address] [place] [address] [place] [address] Brown-Sequard syndrome (Primary Dx); Cervical spondylosis with radiculopathy Social History Tobacco [...] Progress Notes * Be Rangel DO - 08/11/2023 12:50 PM CDT Orders Placed This Encounter AMB REFERRAL TO PALLIATIVE CARE documented in this encounter Plan of Treatment Upcoming Encounters Date Type Department Care Team (Late st Contact Info) Description 08/24/2024 11:00 AM CDT Video Visit 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
--- OUTSIDE RECORDS SUMMARY | 2024-04-13 08:41 | XMS_ITS | Encounter Summary ---
Author Organization [facility] Address [address] [place] [address] Care Team Providers Care Supervisor Maintenance Name Role Phone Bhargav Wilkes MD Primary Care Provider Encounter Details Date Type Department Care Team (Late st Contact Info) Description 08/28/2022 Abstract [facility] Neurosurgery [address] [phone] Naresh Larios MD [address] [place] [address] -x0 (Work) Social History Tobacco Use Types [...] AM CDT Video Visit [facility] Physical Med and Rehab - [facility] [address] [place] [address] [place] [address] [place] [address] documented as of this encounter Visit Diagnoses Not on filedocumented in this encounter Care Teams Supervisor Maintenance Relationship Specialty Start Date End Date Bhargav Wilkes MD [address] [place] [phone] PCP - General Family Practice 05/07/22 documented as of this encounter
--- OUTSIDE RECORDS SUMMARY | 2024-04-13 08:41 | XMS_ITS | Encounter Summary ---
Author Organization [facility] Address [address] [place] [address] Care Team Providers Care Bed Laster Name Role Phone Huang Alonso MD Primary Care Provider [phone] Reason for Visit * Reason Onset Date Comments Question 05/01/2022 Please call if y ou're able. Pt sent a [employer] message, was hoping to hear from you. Encounter Details Date Type Department Care Team (Late st Contact Info) Description 05/01/2022 Telephone [facility] Neurosurgery - Medical [address] [facility] [address] [place] [address] Eloise Syed, DEDE [address] [facility] [address] [place] [address] Question (Please call if you're able. Pt sent a [employer] message, was hoping to hear from you.) Social History Tobacco Use Types Packs/Day Years [...] encounter Miscellaneous Notes * Telephone Encounter - Christine Cottrell Stephanie - 05/04/2022 1:34 PM CST Order placed. I called Hailee and left her a message to schedule the mri and call us back for an appointment. I gave her the number to [facility]. M CLOTHES PRESS OPERATOR * Telephone Encounter - Eloise Syed PA - 05/01/2022 2:53 PM CST ----- Message from Hailee Tanner sent at 05/01/2022 2:14 PM STEAM CLOTHES PRESS OPERATOR ----- Regarding: Leg pain Contact: If you would have read my message you would have seen it is my legs not cervical. And I sent this to Dr Larios to respond. Hailee Tanner M CLOTHES PRESS OPERATOR documented in this encounter Plan of Treatment Upcoming Encounters Date Type Department Care Team (Late st Contact Info) Description 08/24/2024 11:00 AM CDT Video Visit [facility] Physical Med and Rehab - Re[facility]osp [facility] [address] [place] [address] Be Rangel, [address] [place] [address] documented as of this encounter Visit Diagnoses Diagnosis Neck pain- Primary Cervicalgia Cervical spondylosis with radiculopathy Cervical spondylosis with myelopathy Right leg numbness Disturbance of skin sensation Bilateral leg pain Pain in limb documented in this encounter Care Teams Bed Laster Relationship Specialty Start Date End Date Huang Alonso MD [address] [place] [phone] PCP - General Family Practice 10/03/13 05/06/22 documented as of this encounter
--- OUTSIDE RECORDS SUMMARY | 2024-04-13 08:41 | XMS_ITS | Encounter Summary ---
Author Organization [facility] Address [address] [place] [address] Care Team Providers Care Cylinder Valve Repairer Name Role Phone Bhargav Wilkes MD Primary Care Provider Reason for Visit * Reason Comments Follow Up Encounter Details Date Type Department Care Team (Late st Contact Info) Description 07/29/2022 11:00 AM CDT Video Visit [facility] Physical Med and Rehab - [facility] [address] [place] [address] [place] [address] [place] [address] Brown-Sequard syndrome (Primary Dx) Social History Tobacco Use Types Packs/Day Years Used Date Smoking Tobacco: Former Cigarettes 0.5 5 1 466 - 7064 Smokeless Tobacco: Never Alcohol Use Standard Drinks/Week Comments Never 0 (1 standard drink = 0.6 oz pur e alcohol) Sex and Gender Information Value Date Recorded Sex Assigned at Not on file Gender Identity Not on file Sexual Orientation Not on file documented as of this encounter Progress Notes * Be Rangel DO - 07/29/2022 11:00 AM CDT Physical Medicine and Rehabilitation Outpatient Progress Note Patient's identity confirmed yes Patient gave verbal consent to have these services billed to their insurance and expressed understanding that co-insurance and deductible may apply: yes This encounter was completed via two-way synchronous audio and video communication. Patient: Hailee Tanner Date of visit: 07/29/2022 Date of last visit: 04/28/22 Chief complaint: Doing pretty darn good Subjective: The patient presents for outpatient follow up. she was last seen on 04/28. At the time of that visit, she was experiencing tolerable spasticity lower extremity stiffness with adjustments to her baclofen gabapentin dosing. She was participating well in therapies and making progress. She had a goal toambulate with only a cane by Easter. Since that time she reports therapy is going well. She did not quite make her goal of walking with just a cane by Easter but she is starting to walk with a cane and handhold assist in therapies. Her new goal is to walk with just a cane by Mother's Day. She reports her endurance is improving but still not what she would like it to be. As far as her pain goes, she reports she was switched from gabapentin to Lyrica and after a few weeks after the change she reports it has been helpful. She also reports no spasms. She is consistently taking baclofen 20 mg 3 times a day. She is interested in weaning off of medications. Her bowels are still prone to constipation. She reports that she takes MiraLAX multiple times during the day she will end up with diarrhea. Review of Systems Constitutional: Negative. Gastrointestinal: Negative. Genitourinary: Negative. Musculoskeletal: Positive for back pain. Negative for falls. Neurological: Positive for tingling. Social History: Living by herself Medications reviewed. Current Outpatient Medications: pregabalin (Lyrica) 75 mg Capsule, Take 1 Capsule (75 mg) by mouth every 8 hours., Disp: 90 Capsule, Rfl: 3 baclofen (LIORESAL) 10 mg tablet, Take 2 Tablets (20 mg) by mouth 4 times daily., Disp: 720 Tablet,Rfl: 1 pregabalin (Lyrica) 50 mg Capsule, Take 1 Capsule (50 mg) by mouth every 12 hours., Disp: 180 Capsule, Rfl: 5 Miscellaneous Medical Supply, Compression stocking with a zipper, Disp: 1 Each, Rfl: 0 diazePAM (VALIUM) 5 mg tablet, TAKE 1 [...] encounter. 1. Spinal cord injury: Continue with outpatient physical therapy. Continue with home exercise program. 2. Spasticity: Wean baclofen as tolerated. As for problem parameters including avoiding abrupt cessation and monitoring for symptoms. 3. Pain: Tolerable with Lyrica 4. Bowel: recommend daily miralax for regularity. Follow up: 3 months Issues to address at follow-up: Overall function, pain, spasticity, bowel function Total time spent: 25 minutes. Greater than 50% was spent counseling and coordination of care. Electronically signed by: Be Rangel DO Physical Medicine and Rehabilitation [phone] ATTESTATION STATEMENTS Portions of this note were transcribed using [employer] voice recognition without a human blaster helper. This report may or may not have been adjusted for typographical, grammatical and syntax errors or malapropisms. 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
--- OUTSIDE RECORDS SUMMARY | 2024-04-13 08:41 | XMS_ITS | Encounter Summary ---
Author Organization [facility] Address [address] [place] [address] Care Team Providers Care Reading Teacher Name Role Phone Bhargav Wilkes MD Primary Care Provider Reason for Visit * Reason Onset Date Comments Medication Refill 07/23/2022 Encounter Details Date Type Department Care Team (Late st Contact Info) Description 07/23/2022 Refill [facility] Adult Hospitalists [facility] [address] [place] [address] Naresh Larios MD [address] [facility] [address] [address] -x0 (Work) Nerve pain due to spinal stenosis (Primary Dx); Localized swelling of both lower legs Social History Tobacco Use Types Packs/Day Years [...] Telephone Encounter - Naresh Larios MD - 07/23/2022 1:58 PM CDT Spoke to patient she has some swelling in both legs is equal bilaterally and also she says that thepregabalin seems to be helping. Going to increase her dose of pregabalin to 50 mg 3 times daily and get venous Dopplers of her lower extremities to rule out clot documented in this encounter Plan of Treatment Upcoming Encounters Date Type Department Care Team (Late st Contact Info) Description 08/24/2024 11:00 AM CDT Video Visit [facility] Physical Med and Rehab - Rehab Hosp [facility] [address] [place] [address] [place] [address] [place] [address] documented as of this encounter Visit Diagnoses Diagnosis Nerve pain due to spinal stenosis- Primary Spinal stenosis, lumbar region, with neurogenic claudication Localized swelling of both lower legs documented in this encounter Care Teams Reading Teacher Relationship Specialty Start Date End Date Bhargav Wilkes MD [address] [place] [phone] PCP - General Family Practice 05/07/22 documented as of this encounter
--- OUTSIDE RECORDS SUMMARY | 2024-04-13 08:41 | XMS_ITS | Encounter Summary ---
Author Organization [facility] Address [address] [place] [address] Care Team Providers Care Building Attendant Name Role Phone Chung Bhargav Peck MD Primary Care Provider Encounter Details Date Type Department Care Team (Late st Contact Info) Description 07/15/2022 Abstract [facility] Physical Med and Rehab - Re[facility] [address] [place] [phone] [place] [address] [place] [address] Social History Tobacco Use Types [...] 08/24/2024 11:00 AM CDT Video Visit [facility] Physical Med and Rehab - [facility] [address] [place] [address] [place] [address] [place] [address] documented as of this encounter Visit Diagnoses Not on filedocumented in this encounter Care Teams Building Attendant Relationship Specialty Start Date End Date Bhargav Wilkes MD [address] [place] [phone] PCP - General Family Practice 05/07/22 documented as of this encounter
--- OUTSIDE RECORDS SUMMARY | 2024-04-13 08:41 | XMS_ITS | Encounter Summary ---
Author Organization [facility] Address [address] [place] [address] Care Team Providers Care Paediatric Physiotherapist Name Role Phone Chung Bhargav Peck MD Primary Care Provider Reason for Visit * Reason Onset Date Comments Medication Refill 06/19/2022 Encounter Details Date Type Department Care Team (Late st Contact Info) Description 06/19/2022 Refill [facility] Neurosurgery - Medical [address] [facility] [address] [place] [address] Lucero Ahumada PA [address] [facility] [address] [place] [address] Social History Tobacco Use Types Packs/Day Years [...] AM CDT Video Visit [facility] Physical Med and Rehab - [facility] [address] [place] [address] [place] [address] [place] [address] documented as of this encounter Visit Diagnoses Not on filedocumented in this encounter Care Teams Paediatric Physiotherapist Relationship Specialty Start Date End Date Bhargav Wilkes MD [address] [place] [phone] PCP - General Family Practice 05/07/22 documented as of this encounter
--- OUTSIDE RECORDS SUMMARY | 2024-04-13 08:41 | XMS_ITS | Encounter Summary ---
Author Organization [facility] Address [address] Pablo: [place] [address] Care Team Providers Care Cyber Crime Investigator Name Role Phone GiffordBhargav abel MD Primary Care Provider Encounter Details Date Type Department Care Team (Latest Contact Info) Description 05/07/2022 Travel Social History Tobacco Use Types Packs/Day Years Used Date Smoking Tobacco: Former Cigarettes 0.5 5 1 975 - 9875 Smokeless Tobacco: Never Alcohol Use Standard Drinks/Week Comments Never 0 (1 standard drink = 0.6 oz pur e alcohol) Sex and Gender Information Value Date Recorded Sex Assigned at Not on file Gender Identity Not on file Sexual Orientation Not on file COVID-19 Exposure Response Date Recorded In the last 10 days, have yo u been in contact with someone who was confirmed or suspected to have Coronavirus/COVID-19? No / Unsure 05/07/2022 4:27 PM SPECIMEN TECHNICIAN documented as of this encounter Plan of Treatment Upcoming Encounters Date Type Department Care Team (Late st Contact Info) Description 08/24/2024 11:00 AM CDT Video Visit [facility] Physical Med and Rehab - Rehab Hosp Clinic [address] [place] [address] [place] [address] [place] [address] documented as of this encounter Visit Diagnoses Not on filedocumented in this encounter Care Teams Cyber Crime Investigator Relationship Specialty Start Date End Date Bhargav Wilkes MD [address] [phone] PCP - General Family Practice 05/07/22 documented as of this encounter
--- OUTSIDE RECORDS SUMMARY | 2024-04-13 08:41 | XMS_ITS | Encounter Summary ---
Author Organization [facility] Address [address] [place] [address] Care Team Providers Care Diesel Dinkey Engineer Name Role Phone Bhargav Wilkes MD Primary Care Provider Reason for Visit * Reason Comments Follow Up Encounter Details Date Type Department Care Team (Late st Contact Info) Description 09/09/2022 12:00 PM CDT Video Visit [facility] Physical Med and Rehab - Re[facility] Hosp Clinic [address] [place] [address] [place] [address] [place] [address] Brown-Sequard syndrome (Primary Dx); Cord compression Social History Tobacco Use Types Packs/Day Years Used Date Smoking Tobacco: Former Cigarettes 0.5 5 1 365 - 6090 Smokeless Tobacco: Never Alcohol Use Standard Drinks/Week Comments Never 0 (1 standard drink = 0.6 oz pur e alcohol) Sex and Gender Information Value Date Recorded Sex Assigned at Not on file Gender Identity Not on file Sexual Orientation Not on file documented as of this encounter Progress Notes * Be Rangel DO - 09/09/2022 12:00 PM CDT Physical Medicine and Rehabilitation Outpatient Progress Note Patient's identity confirmed yes Patient gave verbal consent to have these services billed to their insurance and expressed understanding that co-insurance and deductible may apply: yes This encounter was completed via two-way synchronous audio and video communication. Patient: Hailee Tanner Date of visit: 09/09/2022 Date of last visit: 07/29/22 Chief complaint: I want to be better Subjective: The patient presents for outpatient follow up. she was last seen on 07/29. At the time of that visit, she was making progress with her therapies and wanted to work on her endurance. Pain is ongoing and she had been switched to Lyrica with good results. She was also taking baclofen and was interestedin generally weaning of medications. Since that time she started weaning herself down on Lyrica from 3 times a day to twice a day. We had a conversation and spoke about the next step going down to once a day. She has gone down to once aday and she feels her swelling is improved however, her neuropathic pains in her feet are worse. She has freezing and burning sensations. She would be interested in trialing a different medication. Functionally, she is continue to make progress. She says her therapist states she is making gains butshe is still not where she wants to be. She was able to walk with a cane on Mother's Day, reaching that goal. She is starting to walk without any assistive device and therapy with overhead harness. Her spasticity is fairly well controlled with the baclofen and as needed Valium. As far as her mood, she notes feeling of anger like life is passing her by. She is lonely and feelsisolated. Her friends are taking her to therapy as her family members are too busy to help much. She is not able to drive and misses the freedom that comes with driving. Review of Systems Constitutional: Negative. Gastrointestinal: Negative. [...] Continue with home exercise program. 2. Spasticity: Doing okay with baclofen 20mg QID and PRN valium at night 3. Pain: Continue to trial wean of lyrica. She will continue on 1 dose a day. Adding amitriptyline Follow up: 1 month Issues to address at follow-up: Overall function, pain Total time spent: 40 minutes. Greater than 50% was spent counseling and coordination of care. Electronically signed by: Be Rangel DO Physical Medicine and Rehabilitation [phone] ATTESTATION STATEMENTS Portions of this note were transcribed using [employer] speaking computerized voice recognition without a human distribution a class lineman. This report may or may not have been adjusted for typographical, grammatical and syntax errors or malapropisms. 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
--- OUTSIDE RECORDS SUMMARY | 2024-04-13 08:41 | XMS_ITS | Encounter Summary ---
Author Organization [facility] Address [address] [place] [address] Care Team Providers Care Licensed Loan Officer Name Role Phone Bhargav Wilkes MD Primary Care Provider Reason for Visit * Reason Onset Date Comments Needs Orders Written 09/24/2022 Encounter Details Date Type Department Care Team (Late st Contact Info) Description 09/24/2022 Telephone [facility] Physical Med and Rehab - Rehab Hosp Clinic [address] [place] [address] [place] [address] [place] [address] Needs Orders Written Social History Tobacco Use Types Packs/Day Years [...] encounter Miscellaneous Notes * Telephone Encounter - Be Rangel DO - 09/25/2022 7:17 AM CDT Orders Placed This Encounter PT EVAL AND TREAT * Telephone Encounter - Lindsey Barillas - 09/24/2022 3:27 PM CDT [facility] is requesting new therapy orders. 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
--- OUTSIDE RECORDS SUMMARY | 2024-04-13 08:41 | XMS_ITS | Encounter Summary ---
Author Organization [facility] Address [address] [place] [address] Care Team Providers Care Cut Off Machine Operator Name Role Phone Huang Alonso MD Primary Care Provider [phone] Reason for Referral * Eval and Treat (Routine) - Closed Specialty Diagnoses / Procedures Referred By Darlene hodgson Referred To Contact Physical Therapy Diagnoses [place] [address] [place] [address] [facility] Physical Therapy [address] [place] [phone] Referral ID Status Reason Start Date Expiration Date Visits Re quested Visits Authorized [id number] Closed 04/28/2022 04/29/2023 99 99 N LAYER Reason for Visit * Reason Comments Follow Up Encounter Details Date Type Department Care Team (Late st Contact Info) Description 04/28/2022 11:00 AM DRAIN LAYER Video Visit [facility] Physical Med and Rehab - Rehab Hosp Clinic [address] [place] [address] [place] [address] [place] [address] Brown-Sequard syndrome (Primary Dx) Social [...] Progress Notes * Be Rangel DO - 04/28/2022 11:00 AM CST Physical Medicine and Rehabilitation Outpatient Progress Note This encounter was completed via two-way synchronous audio and video communication. Patient expressed understanding that using technology outside of [facility] has higher potential tointroduce privacy risks: Not Applicable Patient's identity confirmed yes Patient gave verbal consent to have these services billed to their insurance and expressed understanding that co-insurance and deductible may apply: yes Patient: Hailee Tanner Date of visit: 04/28/2022 Date of last visit: 01/23/22 Chief complaint: Doing real good Subjective: The patient presents for outpatient follow up. she was last seen on 01/23. At the time of that visit, she noted improvement in her symptoms of tightness and spasms with medication adjustments, increasing her gabapentin. She noted an improvement in her therapies and overall mobility. Since that time we did speak on the phone about the side effects of some of her medications. We spoke about going down on the gabapentin and she has decreased the dosing to 200 mg 3 times a day. She reports no difference in her legs with the lower dose and she is pleased with it. She has fever sideeffects. Her spasticity continues to be well controlled with baclofen 20 mg 4 times a day. She doeshave some rare spasms in her foot and happen about once a day. She is still working in outpatient physical therapy 3 times a week. Working on her walking. She is ambulating with a quad cane and heavyrail. Her left leg is dragging last. She has a goal to ambulate with just a cane by [facility]. Review of Systems Constitutional: Negative. Gastrointestinal: Negative. Genitourinary: Negative. Musculoskeletal: Positive for back pain. Negative for falls. Neurological: Positive for tingling. Social History: Living by herself Medications reviewed. Current Outpatient Medications: gabapentin (NEURONTIN) 100 mg capsule, Take 2 Capsules (200 mg) by mouth 3 times daily., Disp: 180 Capsule, Rfl: 2 [DISCONTINUED] gabapentin (NEURONTIN) 300 mg capsule, TAKE 1 CAPSULE(300 MG) BY MOUTH EVERY 8 HOURS, Disp: 270 Capsule, Rfl: 2 diazePAM (VALIUM) 5 mg tablet, TAKE 1 TABLET(5 MG) BY MOUTH EVERY NIGHT NEEDED FOR SPASM, Disp: 30 Tablet, Rfl: 2 baclofen (LIORESAL) 10 mg tablet, Take 2 Tablets (20 mg) by mouth 4 times daily., Disp: 720 Tablet,Rfl: 1 pantoprazole (PROTONIX) 40 mg Tablet, Delayed [...] outpatient rehabilitation care. Orders Placed This Encounter AMB REFERRAL TO PHYSICAL THERAPY gabapentin (NEURONTIN) 100 mg capsule 1. Spinal cord injury: Continue with outpatient physical therapy. Continue with home exercise program. 2. Spasticity: Continue with baclofen 20mg QID 3. Pain: Continue with gabapentin wean. Follow up: 3 months Issues to address at follow-up: Overall function, spasticity, pain Total time spent: 20 minutes. Greater than 50% was spent counseling and coordination of care. Electronically signed by: Be Rangel DO Physical Medicine [facility] Rehabilitation [phone] ATTESTATION STATEMENTS Portions of this note were transcribed using [employer] speaking computerized voice recognition without a human import customs clearing agent. This report may or may not have been adjusted for typographical, grammatical and syntax errors or malapropisms. N LAYER documented in this encounter Plan of Treatment Upcoming Encounters Date Type Department Care Team (Late st Contact Info) Description 08/24/2024 11:00 AM CDT Video Visit 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
--- OUTSIDE RECORDS SUMMARY | 2024-04-13 08:41 | XMS_ITS | Encounter Summary ---
Author Organization [facility] Address [address] [place] [address] Care Team Providers Care Threat Monitoring Analyst Name Role Phone Chung Bhargav Peck MD Primary Care Provider Reason for Visit * Reason Comments Med Refill Encounter Details Date Type Department Care Team ([facility] Contact Info) Description 06/05/[address] [facility] [address] [place] [phone] [place] [address] [place] [phone] Brown-Sequard syndrome Social History Tobacco Use Types Packs/Day [...] suspected to have Coronavirus/COVID-19? No / Unsure 05/19/2022 4:16 PM SENIOR SQL SERVER DATABASE DEVELOPER documented as of this encounter Plan of Treatment Upcoming Encounters Date Type Department Care Team ([facility] Contact Info) Description 08/24/2024 11:00 AM CDT Video Visit [facility] Physical [facility] Re[facility] [address] [place] [address] [place] [address] [place] [address] documented as of this encounter Visit Diagnoses Diagnosis Brown-Sequard syndrome Other specified paralytic syndrome documented in this encounter Care Teams Threat Monitoring Analyst Relationship Specialty Start Date End Date Bhargav Wilkes MD [address] [place] [phone] PCP - General Family Practice 05/07/22 documented as of this encounter
--- OUTSIDE RECORDS SUMMARY | 2024-04-13 08:41 | XMS_ITS | Encounter Summary ---
Author Organization [facility] Address [address] [place] [address] Care Team Providers Care Carpet Loom Fixer Name Role Phone Bhargav Wilkes MD Primary Care Provider Encounter Details Date Type Department Care Team (Late st Contact Info) Description 06/19/2022 Orders Only [facility] Neurosurgery - [facility] [place] [address] [facility] [address] [place] [address] Lucero Ahumada PA [address] [facility] [address] [place], [place] [phone] Social History Tobacco Use Types Packs/Day Years [...] Med and Rehab - [facility] [address] [place] [address] [place] [address] [place] [address] documented as of this encounter Visit Diagnoses Not on filedocumented in this encounter Care Teams Carpet Loom Fixer Relationship Specialty Start Date End Date Bhargav Wilkes MD [address] [place] [phone] PCP - General Family Practice 05/07/22 documented as of this encounter
--- OUTSIDE RECORDS SUMMARY | 2024-04-13 08:41 | XMS_ITS | Encounter Summary ---
Author Organization [facility] Address [address] [facility] [address] Pablo: [place] [address] Care Team Providers Care Child Daycare Worker Name Role Phone [place] SpringsBhargav abel MD Primary Care Provider Encounter Details Date Type Department Care Team (Latest Contact Info) Description 05/19/2022 Travel Social History Tobacco Use Types Packs/Day Years Used Date Smoking Tobacco: Former Cigarettes 0.5 5 1 975 - 4020 Smokeless Tobacco: Never Alcohol Use Standard Drinks/Week [...] Coronavirus/COVID-19? No / Unsure 05/19/2022 4:16 PM MEDICAL DRIVER documented as of this encounter Plan of Treatment Upcoming Encounters Date Type Department Care Team (Late st Contact Info) Description 08/24/2024 11:00 AM CDT Video Visit [facility] Physical Med and Rehab - [facility] [address] [place] [address] [place] [address] [place] [address] documented as of this encounter Visit Diagnoses Not on filedocumented in this encounter Care Teams Child Daycare Worker Relationship Specialty Start Date End Date Bhargav Wilkes MD [address] [phone] PCP - General Family Practice 05/07/22 documented as of this encounter
--- OUTSIDE RECORDS SUMMARY | 2024-04-13 08:41 | XMS_ITS | Encounter Summary ---
Author Organization [facility] Address [address] [place] [address] Care Team Providers Care Channel Marketing Manager Name Role Phone Chung, Bhargav Peck MD Primary Care Provider Reason for Visit * Reason Comments Med Refill Encounter Details Date Type Department Care Team (Late Contact Info) Description 07/31/2022 Refill [facility] Physical Med and Rehab [facility] [address] [place] [address] [place] [address] [place] [address] Brown-Sequard syndrome Social History Tobacco Use [...] Description 08/24/2024 11:00 AM CDT Video Visit [facility] Physical Med and Rehab [facility] [address] [place] [phone] [place] [address] [place] [address] documented as of this encounter Visit Diagnoses Diagnosis Brown-Sequard syndrome Other specified paralytic syndrome documented in this encounter Care Teams Channel Marketing Manager Relationship Specialty Start Date End Date Bhargav Wilkes MD [address] [place] [phone] PCP - General Family Practice 05/07/22 documented as of this encounter
--- OUTSIDE RECORDS SUMMARY | 2024-04-13 08:41 | XMS_ITS | Encounter Summary ---
Author Organization [facility] Address [address] [place] [address] Care Team Providers Care Utility Assembler Name Role Phone Chung Bhargav Peck MD Primary Care Provider Encounter Details Date Type Department Care Team (Late st Contact Info) Description 08/20/2022 Abstract [facility] Physical Med and Rehab [facility] [address] [place] [phone] [place] [address] [place] [address] Social History Tobacco [...] Med and Rehab - [facility] [address] [place] [phone] [place] [address] [place] [address] documented as of this encounter Visit Diagnoses Not on filedocumented in this encounter Care Teams Utility Assembler Relationship Specialty Start Date End Date Bhargav Wilkes MD [address] [place] [phone] PCP - General Family Practice 05/07/22 documented as of this encounter
--- OUTSIDE RECORDS SUMMARY | 2024-04-13 08:41 | XMS_ITS | Encounter Summary ---
Author Organization [facility] Address [address] [place] [address] Care Team Providers Care Assignment Editor Name Role Phone Huang Alonso MD Primary Care Provider +1- [phone] Encounter Details Date Type Department Care Team (Late st Contact Info) Description 05/06/2022 Abstract [facility] Physical Med and Rehab - [facility] [address] [place] [address] [place] [address] [place] [address] Social History Tobacco Use Types [...] Med and Rehab - [facility] [address] [place] [address] [place] [address] [place] [address] documented as of this encounter Visit Diagnoses Not on filedocumented in this encounter Care Teams Assignment Editor Relationship Specialty Start Date End Date Huang Alonso MD [address] [place] [address] PCP - General Family Practice 10/03/13 05/06/22 documented as of this encounter
--- OUTSIDE RECORDS SUMMARY | 2024-04-13 08:41 | XMS_ITS | Encounter Summary ---
Author Organization [facility] Address [address] [place] [address] Care Team Providers Care Stereo Compiler Name Role Phone Chung Bhargav Peck MD Primary Care Provider Encounter Details Date Type Department Care Team (Late st Contact Info) Description 09/17/2022 Abstract [facility] Physical Med and Rehab - [facility] [address] [place] [address] [place] [address] [place] [address] Social History Tobacco Use Types [...] Med and Rehab - [facility] [address] [place] [address] [place] [address] [place] [address] documented as of this encounter Visit Diagnoses Not on filedocumented in this encounter Care Teams Stereo Compiler Relationship Specialty Start Date End Date Bhargav Wilkes MD [address] [place] [phone] PCP - General Family Practice 05/07/22 documented as of this encounter
--- OUTSIDE RECORDS SUMMARY | 2024-04-13 08:41 | XMS_ITS | Encounter Summary ---
Author Organization [facility] Address [address] [place] [address] Care Team Providers Care Geoduck Diver Name Role Phone Huang Alonso MD Primary Care Provider +1- [phone] Encounter Details Date Type Department Care Team (Late Contact Info) Description 02/24/2022 Abstract [facility] Neurosurgery - [facility] [address] [address] Naresh Larios MD [address] [place] [address]x0 (Work) Social History Tobacco [...] suspected to have Coronavirus/COVID-19? No / Unsure 01/28/2022 12:48 PM CDT documented as of this encounter Plan of Treatment Upcoming Encounters Date Type Department Care Team (Late st Contact Info) Description 08/24/2024 11:00 AM CDT Video Visit [facility] Physical Med and Rehab - Rehab Hosp [address] [address] Be Rangel, [address] [place] [phone] documented as of this encounter Visit Diagnoses Not on filedocumented in this encounter Care Teams Geoduck Diver Relationship Specialty Start Date End Date Huang Alonso MD [address] [address] PCP - General Family Practice 10/03/13 05/06/22 documented as of this encounter
--- OUTSIDE RECORDS SUMMARY | 2024-04-13 08:41 | XMS_ITS | Encounter Summary ---
Author Organization [facility] Address [address] [place] [address] Care Team Providers Care [employer] Assistant Manager Name Role Phone Huang Alonso MD Primary Care Provider +1- [phone] Encounter Details Date Type Department Care Team (Late st Contact Info) Description 04/28/2022 Abstract [facility] Physical Med and Rehab - [facility] [address] [place] [address] [place] [address] [place] [address] Social History Tobacco Use Types [...] Med and Rehab - [facility] [address] [place] [address] [place] [address] [place] [address] documented as of this encounter Visit Diagnoses Not on filedocumented in this encounter Care Teams [employer] Assistant Manager Relationship Specialty Start Date End Date Huang Alonso MD [address] [place] [phone] PCP - General Family Practice 10/03/13 05/06/22 documented as of this encounter
--- OUTSIDE RECORDS SUMMARY | 2024-04-13 08:41 | XMS_ITS | Encounter Summary ---
Author Organization [facility] Address [address] [place] [address] Care Team Providers Care Services Engineer Name Role Phone ChungBhargav abel MD Primary Care Provider Reason for Visit * Reason Onset Date Comments Medication Refill 06/19/2022 Encounter Details Date Type Department Care Team (Late Contact Info) Description 06/19/2022 Refill [facility] [address] [place] [address] Naresh Larios MD [address] [place] [address]x0 (Work) Social History Tobacco [...] Telephone Encounter - Naresh Larios MD - 06/19/2022 2:44 PM CST Change to lyrica as neurontin not helping Also add zipper compression stockings BRAKE MECHANIC documented in this encounter Plan of Treatment Upcoming Encounters Date Type Department Care Team (Late Contact Info) Description 08/24/2024 11:00 AM CDT Video Visit [facility] Physical Med and Rehab - [facility]osp [facility] [address] [place] [address] [place] [address] [place] [phone] documented as of this encounter Visit Diagnoses Not on filedocumented in this encounter Care Teams Services Engineer Relationship Specialty Start Date End Date Bhargav Wilkes MD [address] [place] [phone] PCP - General Family Practice 05/07/22 documented as of this encounter
--- OUTSIDE RECORDS SUMMARY | 2024-04-13 08:41 | XMS_ITS | Encounter Summary ---
Author Organization [facility] Address [address] [place] [address] Care Team Providers Care Clinical Business Analyst Name Role Phone Bhargav Wilkes MD Primary Care Provider Encounter Details Date Type Department Care Team (Late Contact Info) Description 06/12/2022 Abstract [facility] Physical Med and Rehab - Re[facility]osp [facility] [address] [place] [address] Be Rangel, [address] [place] [address] Social History Tobacco Use Types [...] Coronavirus/COVID-19? No / Unsure 05/19/2022 4:16 PM STUDIO CONTROL OPERATOR documented as of this encounter Plan of Treatment Upcoming Encounters Date Type Department Care Team (Late st Contact Info) Description 08/24/2024 11:00 AM CDT Video Visit [facility] Physical Med and Rehab - [facility] [address] [place] [phone] Be Rangel, [address] [place] [address] documented as of this encounter Visit Diagnoses Not on filedocumented in this encounter Care Teams Clinical Business Analyst Relationship Specialty Start Date End Date Bhargav Wilkes MD [address] [place] [phone] PCP - General Family Practice 05/07/22 documented as of this encounter
--- OUTSIDE RECORDS SUMMARY | 2024-04-13 08:41 | XMS_ITS | Encounter Summary ---
Author Organization [facility] Address [address] [place] [address] Care Team Providers Care Highway Traffic Control Technician Name Role Phone Bhargav Wilkes MD Primary Care Provider Encounter Details Date Type Department Care Team (Late st Contact Info) Description 08/28/2022 Abstract [facility] Neurosurgery [address] [phone] Naresh Larios MD [address] [place] [address]x0 (Work) Social History Tobacco Use Types [...] Med and Rehab - [facility]osp [facility] [address] [place] [address] [place] [address] [place] [address] documented as of this encounter Procedures Procedure Name Priority Date/Time Associated Diagnosis Comments US VENOUS DOPPLER LEG BILATERAL Routine 08/27/2022 documented in this encounter Results * US VENOUS DOPPLER LEG BILATERAL (08/27/2022) Anatomical Region Laterality Modality Lower Extremity Other Naresh Larios MD US ORDERABLES documented in this encounter Visit Diagnoses Not on filedocumented in this encounter Care Teams Highway Traffic Control Technician Relationship Specialty Start Date End Date Bhargav Wilkes MD [address] [place] [phone] PCP - General Family Practice 05/07/22 documented as of this encounter
--- OUTSIDE RECORDS SUMMARY | 2024-04-13 08:41 | XMS_ITS | Encounter Summary ---
Author Organization [facility] Address [address] [place] [address] Care Team Providers Care Petrography Teacher Name Role Phone Huang Alonso MD Primary Care Provider +1- [phone] Encounter Details Date Type Department Care Team (Late st Contact Info) Description 04/20/2022 Abstract [facility] Neurosurgery - [facility] [address] [place] [address] Naresh Larios MD [address] [facility] [address] [address]x0 (Work) Social History Tobacco [...] CDT Video Visit [facility] Physical Med and Rehab - Rehab Hosp Clinic [address] [place] [address] [place] [address] [place] [address] documented as of this encounter Visit Diagnoses Not on filedocumented in this encounter Care Teams Petrography Teacher Relationship Specialty Start Date End Date Huang Alonso MD [address] [place] [phone] PCP - General Family Practice 10/03/13 05/06/22 documented as of this encounter
--- OUTSIDE RECORDS SUMMARY | 2024-04-13 08:41 | XMS_ITS | Encounter Summary ---
Author Organization [facility] Address [address] [place] [address] Care Team Providers Care Claims Manager Name Role Phone Bhargav Wilkes MD Primary Care Provider Encounter Details Date Type Department Care Team (Late st Contact Info) Description 06/19/[address] [facility] Neurosurgery - [facility] [address] [place] [phone] Naresh Larios MD [address] [facility] [address] [address]x0 (Work) Social History Tobacco [...] Med and Rehab - Re[facility]osp [facility] [address] [place] [address] [place] [address] [place] [address] documented as of this encounter Procedures Procedure Name Priority Date/Time Associated Diagnosis Comments MRI CERVICAL WO CONTRAST Routine 06/10/2022 documented in this encounter Results * MRI CERVICAL WO CONTRAST (06/10/2022) Anatomical Region Laterality Modality Spine Other Naresh Larios MD MR ORDERABLES documented in this encounter Visit Diagnoses Not on filedocumented in this encounter Care Teams Claims Manager Relationship Specialty Start Date End Date Bhargav Wilkes MD [address] [place] [phone] PCP - General Family Practice 05/07/22 documented as of this encounter
--- OUTSIDE RECORDS SUMMARY | 2024-04-13 08:41 | XMS_ITS | Encounter Summary ---
Author Organization [facility] Address [address] [place] [address] Care Team Providers Care Magazine Journalist Name Role Phone Bhargav Wilkes MD Primary Care Provider Encounter Details Date Type Department Care Team (Late Contact Info) Description 08/06/2022 Abstract [facility] Neurosurgery - [facility] [address] [facility] [address] [place] [address] Michael Atkins MD NO ADDRESS ON FILE Social History Tobacco [...] Description 08/24/2024 11:00 AM CDT Video Visit [facility] Physical Med and Rehab - Re[facility] [address] [place] [address] [place] [address] [place] [phone] documented as of this encounter Visit Diagnoses Not on filedocumented in this encounter Care Teams Magazine Journalist Relationship Specialty Start Date End Date Bhargav Wilkes MD [address] [phone] PCP - General Family Practice 05/07/22 documented as of this encounter
--- OUTSIDE RECORDS SUMMARY | 2024-04-13 08:41 | XMS_ITS | Encounter Summary ---
Author Organization [facility] Address [address] [place] [address] Care Team Providers Care Surgical Manager Name Role Phone Huang Alonso MD Primary Care Provider +1- [phone] Reason for Visit * Reason Comments Med Refill Encounter Details Date Type Department Care Team (Late Contact Info) Description 02/25/2022 Refill [facility] Physical Med and Rehab - Rehab Hosp Clinic [address] [place] [phone] [place] Rangel [place] [address] [place] [address] Brown-Sequard syndrome Social History Tobacco Use [...] Med and Rehab - Re[facility]osp [facility] [address] [place] [address] Be Rangel, [address] [place] [phone] documented as of this encounter 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
--- OUTSIDE RECORDS SUMMARY | 2024-04-13 08:41 | XMS_ITS | Encounter Summary ---
Author Organization [facility] Address [address] [place] [address] Care Team Providers Care Tree Marker Name Role Phone Chung, Bhargav Peck MD Primary Care Provider Reason for Visit * Reason Onset Date Comments Medication Refill 07/16/2022 Encounter Details Date Type Department Care Team (Late Contact Info) Description 07/16/2022 Refill [facility] Neurosurgery - Medical [place] [address] [facility] [address] [place] [address] Eloise Syed PA [address] [facility] [address] [place] [address] Social History Tobacco Use Types Packs/Day Years [...] Med and Rehab - Re[facility]osp [facility] [address] [place] [address] [place] [address] [place] [address] documented as of this encounter Visit Diagnoses Not on filedocumented in this encounter Care Teams Tree Marker Relationship Specialty Start Date End Date Bhargav Wilkes MD [address] [place] [phone] PCP - General Family Practice 05/07/22 documented as of this encounter
--- OUTSIDE RECORDS SUMMARY | 2024-04-13 08:41 | XMS_ITS | Encounter Summary ---
Author Organization [facility] Address [address] [place] [address] Care Team Providers Care Top Frame Fitter Name Role Phone Chung Bhargav Peck MD Primary Care Provider Encounter Details Date Type Department Care Team (Late st Contact Info) Description 07/13/2022 Abstract [facility] Physical Med and Rehab - Rehab Hosp Clinic [address] [place] [address] [place] [address] [place] [address] Social History Tobacco Use Types [...] Med and Rehab - [facility] [address] [place] [address] [place] [address] [place] [address] documented as of this encounter Visit Diagnoses Not on filedocumented in this encounter Care Teams Top Frame Fitter Relationship Specialty Start Date End Date Bhargav Wilkes MD [address] [place] [phone] PCP - General Family Practice 05/07/22 documented as of this encounter
--- OUTSIDE RECORDS SUMMARY | 2024-04-13 08:41 | XMS_ITS | Encounter Summary ---
Author Organization [facility] Address [address] [place] [address] Care Team Providers Care Cash Specialist Name Role Phone Bhargav Wilkes MD Primary Care Provider Encounter Details Date Type Department Care Team (Late Contact Info) Description 06/08/2022 Orders Only [facility] Neurosurgery - [facility] [address] [facility] [address] [facility] [place] [address] Naresh Larios MD [address] [facility] [address] [address]x0 (Work) Neck pain (Primary Dx); Bilateral leg pain; Thoracic spondylosis with cord compression Social History [...] Coronavirus/COVID-19? 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
--- OUTSIDE RECORDS SUMMARY | 2024-04-13 08:41 | XMS_ITS | Encounter Summary ---
Author Organization [facility] Address [address] [place] [address] Care Team Providers Care Agri Business Agent Name Role Phone Bhargav Wilkes MD Primary Care Provider Reason for Visit * Reason Onset Date Comments Medication Refill 07/01/2022 Encounter Details Date Type Department Care Team (Late st Contact Info) Description 07/01/2022 Refill [facility] Physical Med and Rehab - [facility] [address] [place] [phone] [place] [address] [place] [address] Social History Tobacco Use Types Packs/Day Years [...] * Telephone Encounter - Lindsey Barillas - 07/01/2022 10:02 AM CDT Hailee requests refills on baclofen to [facility] in [place], [place]. documented in this encounter Plan of Treatment Upcoming Encounters Date Type Department Care Team (Late st Contact Info) Description 08/24/2024 11:00 AM CDT Video Visit [facility] Physical Med and Rehab - Rehab Hosp [facility] [address] [place] [phone] [place] [address] [place] [address] documented as of this encounter Visit Diagnoses Not on filedocumented in this encounter Care Teams Agri Business Agent Relationship Specialty Start Date End Date Bhargav Wilkes MD [address] [place] [phone] PCP - General Family Practice 05/07/22 documented as of this encounter
--- OUTSIDE RECORDS SUMMARY | 2024-04-13 08:41 | XMS_ITS | Encounter Summary ---
Author Organization [facility] Address [address] [place] [address] Care Team Providers Care Radial Saw Operator Name Role Phone Chung, Bhargav Peck MD Primary Care Provider Reason for Visit * Reason Onset Date Comments Medication Refill 08/05/2022 Encounter Details Date Type Department Care Team (Late st Contact Info) Description 08/05/2022 Refill [facility] Neurosurgery - Medical [place] [address] [facility] [address] [place] [address] Eloise Syed PA [address] [facility] [address] [place] [address] Thoracic spondylosis with cord compression (Primary Dx) Social History Tobacco Use Types [...] Med and Rehab - [facility] [address] [place] [address] [place] [address] [place] [address] documented as of this encounter Visit Diagnoses Diagnosis Thoracic spondylosis with cord compression- Primary Spondylosis with myelopathy, thoracic region documented in this encounter Care Teams Radial Saw Operator Relationship Specialty Start Date End Date Bhargav Wilkes MD [address] [place] [phone] PCP - General Family Practice 05/07/22 documented as of this encounter
--- OUTSIDE RECORDS SUMMARY | 2024-04-13 08:41 | XMS_ITS | Encounter Summary ---
Author Organization [facility] Address [address] [place] [address] Care Team Providers Care Rad Tech Name Role Phone Bhargav Wilkes MD Primary Care Provider Reason for Visit * Reason Onset Date Comments Medication Question 07/21/2022 Encounter Details Date Type Department Care Team (Late st Contact Info) Description 07/21/2022 Telephone [facility] Neurosurgery - [facility] [address] [place] [address] Naresh Larios MD [address] [facility] [place] [address]x0 (Work) Medication Question Social History Tobacco Use Types Packs/Day [...] encounter Miscellaneous Notes * Telephone Encounter - Eloise Syed PA - 07/23/2022 2:14 PM CDT Called, Hailee had already spoke to Dr. Larios. All questions answered * Telephone Encounter - Rajwinder Nunes - 07/23/2022 9:39 AM CDT Patient called to return your message [phone]. * Telephone Encounter - Eloise Syed PA - 07/21/2022 3:18 PM CDT Called to discuss. No answer, LMOM Pt has appt with PMR on 07/29 - may be advisable to await their opinion. Will discuss * Telephone Encounter - Christine Cottrell - 07/21/2022 9:55 AM CDT Hailee is having a little bit of swelling in her feet. Her stomach and groin pain is not as intensebut still there. Would like to discuss increasing lyrica or how long she should wait to see if she gets better. documented in this encounter Plan of Treatment Upcoming Encounters Date Type Department Care Team (Late st Contact Info) Description 08/24/2024 11:00 AM CDT Video Visit [facility] Physical Med and Rehab - [facility] [address] [place] [address] [place] [address] [place] [address] documented as of this encounter Visit Diagnoses Not on filedocumented in this encounter Care Teams Rad Tech Relationship Specialty Start Date End Date Bhargav Wilkes MD [address] [place] [phone] PCP - General Family Practice 05/07/22 documented as of this encounter
--- OUTSIDE RECORDS SUMMARY | 2024-04-13 08:41 | XMS_ITS | Encounter Summary ---
Author Organization [facility] Address [address] [place] [address] Care Team Providers Care Airborne And Air Delivery Specialist Name Role Phone Huang Alonso MD Primary Care Provider [phone]- [phone] Encounter Details Date Type Department Care Team (Late st Contact Info) Description 04/20/2022 Abstract [facility] Neurosurgery - [facility] [address] [address] [place] [address] Naresh Larios MD [address] [facility] [address] [address]x0 (Work) Social History Tobacco [...] Med and Rehab - [facility] [address] [place] [address] [place] [address] [place] [address] documented as of this encounter Visit Diagnoses Not on filedocumented in this encounter Care Teams Airborne And Air Delivery Specialist Relationship Specialty Start Date End Date Huang Alonso MD [address] [place] [address] PCP - General Family Practice 10/03/13 05/06/22 documented as of this encounter
--- OUTSIDE RECORDS SUMMARY | 2024-04-13 08:41 | XMS_ITS | Encounter Summary ---
Author Organization [facility] Address [address] [place] [address] Care Team Providers Care Sports Information Director Name Role Phone Huang Alonso MD Primary Care Provider [phone] Reason for Visit * Reason Comments Med Refill Encounter Details Date Type Department Care Team (Late st Contact Info) Description 03/13/2022 Refill [facility] Physical Med and Rehab - [facility] [address] [place] [address] [place] [address] [place] [address] Social History Tobacco Use Types [...] Med and Rehab - [facility] [address] [place] [address] [place] [address] [place] [address] documented as of this encounter Visit Diagnoses Not on filedocumented in this encounter Care Teams Sports Information Director Relationship Specialty Start Date End Date Huang Alonso MD [address] [place] [address] PCP - General Family Practice 10/03/13 05/06/22 documented as of this encounter
--- OUTSIDE RECORDS SUMMARY | 2024-04-13 08:41 | XMS_ITS | Encounter Summary ---
Author Organization [facility] Address [address] [place] [address] Care Team Providers Care Senior Oracle Dba Name Role Phone Bhargav Wilkes MD Primary Care Provider Encounter Details Date Type Department Care Team (Late st Contact Info) Description 06/22/2022 Abstract [facility] Neurosurgery - [facility] [address] [address] [place] [address] Naresh Larios MD [address] [facility] [address] [address] (Work) Social History Tobacco [...] Med and Rehab - [facility] [address] [place] [address] [place] [address] [place] [address] documented as of this encounter Visit Diagnoses Not on filedocumented in this encounter Care Teams Senior Oracle Dba Relationship Specialty Start Date End Date Bhargav Wilkes MD [address] [place] [phone] PCP - General Family Practice 05/07/22 documented as of this encounter
--- OUTSIDE RECORDS SUMMARY | 2024-04-13 08:42 | XMS_ITS | Encounter Summary ---
Author Organization [facility] Address [address] [place] [address] Care Team Providers Care Marketing Traffic Coordinator Name Role Phone Huang Alonso MD Primary Care Provider [phone]- [phone] Encounter Details Date Type Department Care Team (Late st Contact Info) Description 05/07/2021 Orders Only [facility] Neurosurgery - Medical [facility] [address] [place] [address] Naresh Larios MD [address] [facility] [address] [address] (Work) Neck pain (Primary Dx); Cervical spondylosis with radiculopathy Social [...] Med and Rehab - [facility]osp [facility] [address] [place] [address] [place] [address] [place] [address] documented as of this encounter Results * XR CERVICAL SPINE 2 OR 3 VIEWS (05/28/2021 1:37 PM FEATHERER) Anatomical Region Laterality Modality Spine Computed Radiogr aphy 05/28/2021 1:37 PM FEATHERER Impressions 05/28/2021 5:42 PM FEATHERER IMPRESSION: 1. No acute abnormality identified. DICTATION LOCATION: Location [address] [place] [address] Narrative 05/28/2021 5:42 PM FEATHERER XR CERVICAL SPINE 2 OR 3 VIEWS DATE: ??05/28/2021 1:37 PM HISTORY: Follow-up fusion. COMPARISON: CT cervical spine from 03/17/2021 TECHNIQUE: ??AP and lateral views of the cervical spine. FINDINGS: There is anterior fusion from C4 to C6. There is good incorporation of the interbody fusion devices. The thickness and contour of the prevertebral soft tissues are normal. The facet joints are normally aligned. Alignment of the cervical vertebral bodies is preserved. Procedure Note Belen Cedeño MD - 05/28/2021 XR CERVICAL SPINE 2 OR 3 VIEWS DATE: 05/28/2021 1:37 PM HISTORY: Follow-up fusion. COMPARISON: CT cervical spine from 03/17/2021 TECHNIQUE: AP and lateral views of the cervical spine. FINDINGS: There is anterior fusion from C4 to C6. There is good incorporation of the interbody fusion devices. The thickness and contour of the prevertebral soft tissues are normal. The facet joints are normally aligned. Alignment of the cervical vertebral bodies is preserved. IMPRESSION: 1. No acute abnormality identified. DICTATION LOCATION: Location - [facility] Naresh Larios MD DIAGNOSTIC IMAGING O RDERABLES documented in this encounter Visit Diagnoses Diagnosis Neck pain- Primary Cervicalgia Cervical spondylosis with radiculopathy Cervical spondylosis with myelopathy Neck pain Cervicalgia Cervical spondylosis with radiculopathy Cervical spondylosis with myelopathy documented in this encounter Care Teams Marketing Traffic Coordinator Relationship Specialty Start Date End Date Huang Alonso MD [address] [place] [phone] PCP - General Family Practice 10/03/13 05/06/22 documented as of this encounter
--- OUTSIDE RECORDS SUMMARY | 2024-04-13 08:42 | XMS_ITS | Encounter Summary ---
Author Organization [facility] Address [address] [place] [address] Care Team Providers Care Clay Products Glazer Name Role Phone Huang Alonso MD Primary Care Provider [phone]- [phone] Encounter Details Date Type Department Care Team (Late Contact Info) Description 09/25/2021 Abstract [facility] Neurosurgery - [facility] [address] [address] Naresh Larios MD [address] [place] [address]x0 (Work) Social History Tobacco [...] suspected to have Coronavirus/COVID-19? No / Unsure 09/24/2021 1:16 PM CDT documented as of this encounter Plan of Treatment Upcoming Encounters Date Type Department Care Team (Late st Contact Info) Description 08/24/2024 11:00 AM CDT Video Visit [facility] Physical Med and Rehab - Rehab Hosp [address] [address] Be Rangel, [address] [place] [phone] documented as of this encounter Visit Diagnoses Not on filedocumented in this encounter Care Teams [employer] Glazer Relationship Specialty Start Date End Date Huang Alonso MD [address] [place] [address] PCP - General Family Practice 10/03/13 05/06/22 documented as of this encounter
--- OUTSIDE RECORDS SUMMARY | 2024-04-13 08:42 | XMS_ITS | Encounter Summary ---
Author Organization [facility] Address [address] [place] [address] Care Team Providers Care Pilot Submersible Name Role Phone Huang Alonso MD Primary Care Provider [phone] [phone] Reason for Visit * Reason Onset Date Comments Medication Refill 06/09/2021 Encounter Details Date Type Department Care Team ([facility] Contact Info) Description 06/09/2021 Refill [facility] Neurosurgery - Medical [place] [address] [facility] [address] [place] [address] Eloise Syed, DEDE [address] [facility] [address] [place] [address] Social History Tobacco Use Types [...] have Coronavirus / COVID-19? No / Unsure 05/28/2021 1:15 PM RADIO OPERATOR documented as of this encounter Plan of Treatment Upcoming Encounters Date Type Department Care Team (Late Contact Info) Description 08/24/2024 11:00 AM CDT Video Visit [facility] Physical Med and Rehab - Rehab Hosp Clinic [address] [place] [phone] [place] [address] [place] [phone] documented as of this encounter Visit Diagnoses Not on filedocumented in this encounter Care Teams Pilot Submersible Relationship Specialty Start Date End Date Huang Alonso MD [address] [place] [address] PCP - General Family Practice 10/03/13 05/06/22 documented as of this encounter
--- OUTSIDE RECORDS SUMMARY | 2024-04-13 08:42 | XMS_ITS | Encounter Summary ---
Author Organization [facility] Address [address] [place] [address] Care Team Providers Care Senior Product Manager Name Role Phone Huang Alonso MD Primary Care Provider [phone]- [phone] Reason for Visit * Reason Comments Follow Up Encounter Details Date Type Department Care Team (Late st Contact Info) Description 12/24/2021 11:45 AM CDT Video Visit [facility] Physical Med and Rehab - Rehab Hosp Clinic [address] [place] [address] [place] [address] [place] [address] Brown-Sequard syndrome (Primary Dx) Social [...] suspected to have Coronavirus/COVID-19? No / Unsure 12/24/2021 11:33 AM CDT documented as of this encounter Progress Notes * Be Rangel DO - 12/24/2021 11:38 AM CDT Physical Medicine and Rehabilitation Outpatient [...] yes Patient: Hailee Tanner Date of visit: 12/24/2021 Date of last visit: 11/10/21 Chief complaint: These spasms and tightness are bad Subjective: The patient presents for outpatient follow up. she was last seen on 11/10. At the time of that visit,she was still in therapies twice a week. She had recently had a urinary tract infection that improved with antibiotics. She is having ongoing tightness and spasticity that had lately been worse at night. We tried going up on the dosing of her baclofen for the spasticity. Since that time she called to let us know that she was not tolerating the higher dose of baclofen. We tried different dosing of her baclofen since then. She is now currently taking baclofen 15 mg in the morning, 15 mg at lunch, 20 mg at dinner and 20 mg at bedtime. She reports complaints of tightness and spasticity. She reports the muscle tightness is worse during the day. It is alleviated by activity. The spasticity is less intense during the day but worse at night. The spasticity will often keep her up at night. She does not sleep very well. Previously CBD oil has been helpful but she does not feel it is helping as much as it was before. She feels this overall tightness and spasticity is impairing her function and ability to participate in therapies. Review of Systems Constitutional: Negative. Gastrointestinal: Negative. Genitourinary: Negative. Musculoskeletal: Negative for falls. Muscle tightness Neurological: Positive for focal weakness. Spasticity Psychiatric/Behavioral: Negative. Social History: Living by herself Medications reviewed. Current Outpatient Medications: gabapentin (NEURONTIN) 300 mg capsule, Take 1 Capsule (300 mg) by mouth every 8 hours., Disp: 90 Capsule, Rfl: 3 diazePAM (VALIUM) 5 mg tablet, Take 1 Tablet (5 mg) by mouth nightly as needed for Spasm., Disp: 30Tablet, Rfl: 0 baclofen (LIORESAL) 10 mg tablet, Take 2 Tablets (20 mg) by mouth 4 times daily., Disp: 720 Tablet,Rfl: 1 [DISCONTINUED] diazePAM (VALIUM) 5 mg tablet, Take 1 Tablet (5 mg) by mouth nightly as needed for Spasm., Disp: 30 Tablet, Rfl: 0 bisacodyl (THE MAGIC BULLET) 10 mg Suppository rectal suppository, Insert 1 Suppository (10 mg) by rectum daily., Disp: 30 Suppository, Rfl: 11 pantoprazole (PROTONIX) 40 mg Tablet, Delayed Release (E.C.), Take 1 Tablet (40 mg) by mouth daily before breakfast., Disp: 30 Tablet, Rfl: 0 traZODone (DESYREL) 50 mg tablet, Take 1 Tablet (50 mg) by mouth daily at bedtime., Disp: 30 Tablet, Rfl: 0 [DISCONTINUED] gabapentin (NEURONTIN) 100 mg capsule, Take 2 Capsules (200 mg) by mouth every 8 hours., Disp: 180 Capsule, Rfl: 0 Objective: Vitals: There were no [...] Date/Time CRP 4.4 04/14/2021 04:06 AM ASSESSMENT/PLAN: 66 y.o. female who underwent C4-6 ACDF and T2-T3 laminectomy on 03/13/[address] 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 she presents today to continue outpatient rehabilitation care. Orders Placed This Encounter PT EVAL AND TREAT gabapentin (NEURONTIN) 300 mg capsule diazePAM (VALIUM) 5 mg tablet 1. Spinal cord injury: Continue with outpatient therapies. We will attempt to improve her spasticity/tightness control. So she can better participate in therapies. 2. Spasticity: She had not tried the as needed Valium at night. She did not even fill the prescription. Sending a new prescription and we spoke about utilizes medication to help her sleep by controlling the increased spasticity at night. 3. Pain: Increasing her gabapentin for neuropathic type pains in her legs. Follow up: 1 month Issues to address at follow-up: Spasticity Total time spent: 25 minutes. Greater than 50% was spent counseling and coordination of care. Electronically signed by: Be Rangel DO Physical Medicine and Rehabilitation [phone] ATTESTATION STATEMENTS Portions of this note were transcribed using [employer] naturally speaking computerized voice recognition without a human parts data writer. This report may or may not have been adjusted for typographical, grammatical and syntax errors or malapropisms. 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
--- OUTSIDE RECORDS SUMMARY | 2024-04-13 08:42 | XMS_ITS | Encounter Summary ---
Author Organization [facility] Address [address] [place] [address] Care Team Providers Care Vocational Rehabilitation Teacher Name Role Phone Huang Alonso MD Primary Care Provider [phone] Reason for Referral * Eval and Treat (Routine) - Closed Specialty Diagnoses / Procedures Referred By Contact Referred To Contact Physical Medicine and Rehabilitation Diagnoses Thoracic spondylosis with cord compression Ermelinda Roger PA [address] [place] [address] [facility] Physical Medicine And Rehabilitation [address] [address] Referral ID Status Reason Start Date Expiration Date Visits Re quested Visits Authorized [id number] Closed 07/16/2021 07/16/2022 1 1 Reason for Visit * Reason Comments Post-op Visit po, 2 level acdf and thoracic laminectomy, Encounter Details Date Type Department Care Team (Latest Contact Info) Description 07/16/2021 11:15 AM CDT Office Visit [facility] Neurosurgery - [facility] [address] [place] [address] Naresh Larios MD [address] [facility] [address] [place] [address] -x0 (Work) Right leg numbness (Primary Dx); Thoracic spondylosis with cord compression; Spinal cord injury of thoracic region without bone injury, subsequent encounter; Cervical spondylosis with radiculopathy; Restless leg syndrome due to iron deficiency anemia Social History Tobacco Use Types Packs/Day Years Used Date Smoking Tobacco: Former Cigarettes 0.5 5 1 [phone] - 0408 Smokeless Tobacco: Never Alcohol Use Standard Drinks/Week [...] have Coronavirus / COVID-19? No / Unsure 07/16/2021 10:34 AM CDT documented as of this encounter Last Filed Vital Signs Vital Sign Reading Time Taken Comments Blood Pressure 134/84 07/16/2021 10:37 AM CDT Pulse 78 07/16/2021 10:37 AM CDT Temperature 36.6 ??C (97.9 ??F) 07/16/2021 10:37 AM C DT Respiratory Rate - - Oxygen Saturation - - Inhaled Oxygen Concentration - - Weight 82.6 kg (182 lb) 07/16/2021 10:37 AM CDT Height 160 cm (5' 3 ) 07/16/2021 10:37 AM CDT Body Mass Index 32.24 07/16/2021 10:37 AM CDT documented in this encounter Progress Notes * Naresh Larios MD - 07/16/2021 10:39 AM CDT [facility] Follow Up Patient Name: Hailee Tanner : 1955 Date of Service: 07/16/2021 Subjective: Chief Complaint: Chief Complaint Patient presents with ??? Post-op Visit po, 2 level acdf and thoracic laminectomy, History of Present Illness: Hailee is a 66 y.o. female who presents for a postoperative visit following Cervical Discectomy Fusion 2 Level Anterior and Thoracic Laminectomy on 03/13/2021. 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 She is continuing therapy 3 days a week. She is walking around with a walker. She continues to have spasms and is taking baclofen 10/10/20mg. Patient Active Problem List Diagnosis Code ??? Neck pain M54.2 ??? Cervical spondylosis with radiculopathy M47.22 ??? Cord compression G95.20 ??? Neurological deficit present R29.818 ??? Hyponatremia E87.1 ??? 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 Urinary retention R33.9 ??? HTN (hypertension) I10 ??? GERD (gastroesophageal reflux disease) K21.9 ??? Arthritis M19.90 Past Medical History: Diagnosis Date ??? Arthritis ??? GERD (gastroesophageal reflux disease) Difficulty taking NSAIDs. ??? HTN (hypertension) ??? Post-operative nausea and vomiting Social History Tobacco Use ??? Smoking status: Former Smoker Packs/day: 0.50 Years: 5.00 Pack years: 2.50 Types: Cigarettes Quit date: 1979 Years since quittin.2 ??? Smokeless tobacco: Never Used Substance Use Topics ??? Alcohol use: Never TOBACCO COUNSELING She is not a tobacco user. Allergies Allergen Reactions ??? Codeine Nausea and Vomiting ??? Oxycodone Nausea and Vomiting Current Outpatient Medications on File Prior to Visit Medication Sig Dispense Refill ??? baclofen (LIORESAL) 10 mg tablet Take 1 Tablet (10 mg) by mouth 3 times daily. 90 Tablet 1 ??? gabapentin (NEURONTIN) 100 mg capsule Take 2 Capsules (200 mg) by mouth every 8 hours. 180 Capsule 0 ??? pantoprazole (PROTONIX) 40 mg Tablet, Delayed Release (E.C.) Take 1 Tablet (40 mg) by mouth daily before breakfast. 30 Tablet 0 ??? traZODone (DESYREL) 50 mg tablet Take 1 Tablet (50 mg) by mouth daily at bedtime. 30 Tablet 0 ??? fludrocortisone (FLORINEF) 0.1 mg tablet Take 2 Tablets (0.2 mg) by mouth daily. 60 Tablet 0 ??? midodrine (PROAMATINE) 10 mg Tablet Take 1 Tablet (10 mg) by mouth 2 times daily. 60 Tablet 0 ??? tiZANidine (ZANAFLEX) 4 mg Tablet Take 1 Tablet (4 mg) by mouth every 6 hours as needed for Spasm. 75 Tablet 0 ??? tamoxifen (NOLVADEX) 20 mg tablet Take 1 Tablet by mouth daily. No current facility-administered medications on file prior to visit. Review of Systems: Review of Systems Musculoskeletal: Positive for back pain, myalgias and neck pain. Neurological: Positive for weakness. Negative for tingling, sensory change, focal weakness and headaches. Objective: Physical Exam: BP 134/84 (BP Location: Right arm, Patient Position (BP): Sitting, BP Cuff Size: Large Adult) Pulse 78 Temp 97.9 ??F (36.6 ??C) (Temporal) Ht 5' 3 (1.6 m) Wt 82.6 kg (182 lb) BMI 32.24 kg/m?? Normal BMI Range: 18 & older: > or = 18.5 and < 25 Body mass index is 32.24 kg/m??. Constitutional: Appears well, no distress, well-nourished, well-developed Cardiovascular: Regular rate and rhythm, no swelling or edema Respiratory: Even/unlabored Musculoskeletal: See neuro exam Skin: No rash, Incision well-healed Psychiatric: Appropriate to circumstances Neurological Exam: Neurologic Exam Mental Status Oriented to person, place, and time. Speech: speech is normal Level of consciousness: alert Motor Exam Overall muscle tone: normal Strength Strength 5/5 except as noted. Right iliopsoas: 4/5 Left iliopsoas: 4/5 Right quadriceps: 4/5 Left quadriceps: 4/5 Right hamstrin/5 Left hamstrin/5 Right glutei: 4/5 Left glutei: 4/5 Right anterior tibial: 4/5 Left anterior tibial: 3/5 Right posterior tibial: 4/5 Left posterior tibial: 4/5 Right gastroc: 4/5 Left gastroc: 4/5 Sensory Exam Light touch normal. Gait, Coordination, and Reflexes Gait Gait: normal Labs: Lab Results Component Value Date/Time WBC 4.0 04/14/2021 04:06 AM HGB 9.9 (L) 04/14/2021 04:06 AM HCT 32.8 (L) 04/14/2021 04:06 AM PLT 227 04/14/2021 04:06 AM NA 142 04/14/2021 04:06 AM K 3.4 (L) 04/14/2021 04:06 AM INR 1.2 (H) 03/14/2021 02:03 AM Lab Results Component Value Date/Time URINELEUKOC 3+ (A) 04/13/2021 11:36 AM NITRITEUA Positive (A) 04/13/2021 11:36 AM KETONEURINE Negative 04/13/2021 11:36 AM BLOODUA 1+ (A) 04/13/2021 11:36 AM WBCU >100 (A) 04/13/2021 11:36 AM RBCUA 3-5 (A) 04/13/2021 11:36 AM BACTERIAUA 2+ (A) 04/13/2021 11:36 AM UREPITHELIAL 0-5 03/28/2021 01:24 AM Lab Results Component Value Date/Time CA 8.9 04/14/2021 04:06 AM VITAMINDTO 22 (L) 03/28/2021 05:04 AM TSH 2.28 03/28/2021 05:04 AM No components found for: NICU, COTU, NICS, COTS Imaging Studies: No new imaging Assessment and Plan: ICD-10-CM ICD-9-CM 1. Right leg numbness R20.0 782.0 IRON LEVEL PT EVAL AND TREAT 2. Thoracic spondylosis with cord compression M47.14 721.41 3. Spinal cord injury of thoracic region without bone injury, subsequent encounter S24.109D V58.89 952.10 4. Cervical spondylosis with radiculopathy M47.22 721.0 Plan: We will send patients new PT prescription to include ultrasound heat massage therapy. continue with her intense physical therapy as she has made great strides in the last 6 weeks with her lowerextremity strength. Will increase her baclofen to 20/20/30 and refer her to see Dr. Quintanilla with rehab medicine as an outpt We will check patient's iron level today to make sure that is not contributing to her nighttime spasms in her legs and restless legs. Follow up: 8 weeks With cervical xrays This patient was seen jointly by Naresh Larios MD and transcribed by Ermelinda Roger PA-C. This dictation was completed using [employer] Speaking Software. Slot Machine Mechanic variances may occur. documented in this encounter Plan of Treatment Upcoming Encounters Date Type Department Care Team (Late st Contact Info) Description 08/24/2024 11:00 AM CDT Video Visit [facility] Physical Med and Rehab - [facility] [address] [place] [phone] [address] [address] [place] [address] Scheduled Referrals Name Type Priority Associated Diagnoses Orde r Schedule AMB REFERRAL TO PHYSICIAL MEDICINE REHAB Outpatient Referral Routine Thoracic spondylosis with cord compression Ordered: 07/16/2021 documented as of this encounter Procedures Procedure Name Priority Date/Time Associated Diagnosis Comments IRON LEVEL Routine 07/16/2021 11:54 AM CDT Right leg numbness CBC WITH DIFFERENTIAL Routine 07/16/2021 11:52 AM CDT Spinal cord injury of thoracic region without bone injury, subsequent encounter COMPREHENSIVE METABOLIC PANEL Routine 07/16/2021 11:52 AM CDT Spinal cord injury of thoracic region without bone injury, subsequent encounter documented in this encounter Results * IRON LEVEL (07/16/2021 11:54 AM CDT) IRON 49 45 - 160 mcg/dL [facility] Comment: FASTING:NO FASTING: NO Test Performed at: [facility] [id number] [place] [address] ??[phone] Florentino Barbosa D.O., MPH Blood 07/16/2021 11:5 4 AM CDT 07/16/2021 11:55 AM CDT Ermelinda AGUAYO CHEMISTRY DILLON FREEMAN [facility] [address] [place] [address] * (ABNORMAL) CBC WITH DIFFERENTIAL (07/16/2021 11:52 AM CDT) [facility] WBC 4.1 3.8 - 10.8 Thousand/u L [facility] RBC 4.14 3.80 - 5.10 Million/uL [facility] HEMOGLOBIN 11.9 11.7 - 15.5 g/dL [facility] HEMATOCRIT 35.8 35.0 - 45.0 % [facility] MCV 86.5 80.0 - 100.0 fL [facility] MCH 28.7 27.0 - 33.0 pg [facility] MCHC 33.2 32.0 - 36.0 g/dL [facility] RDW 14.1 11.0 - 15.0 % [facility] PLATELETS 181 140 - 400 Thousand/u L [facility] MPV 9.9 7.5 - 12.5 fL [facility] NEUTROPHIL ABSOLUTE 2,448 1,500 - 7,800 cells/uL [facility] LYMPHOCYTE ABSOLUTE 1,283 850 - 3,900 cells/uL [facility] MONOCYTE ABSOLUTE 369 200 - 950 cells/uL [facility] EOSINOPHIL ABSOLUTE 0(L) 15 - 500 cells/uL [facility] BASOPHILS ABSOLUTE 0 0 - 200 cells/uL [facility] NEUTROPHIL 59.7 % [facility] LYMPHOCYTES 31.3 % [facility] MONOCYTE 9.0 % [facility] EOSINOPHILS 0.0 % [facility] BASOPHILS 0.0 % [facility] Comment: FASTING:NO FASTING: NO Test Performed at: [facility] ??[phone] Florentino Barbosa D.O., MPH Blood 07/16/2021 11:5 2 AM CDT 07/16/2021 11:53 AM CDT Naresh Larios MD HEMATOLOGY ORDERABLE S [facility] [address] [place] [address] * (ABNORMAL) COMPREHENSIVE METABOLIC PANEL (07/16/2021 11:52 AM CDT) [facility] GLUCOSE 92 65 - 139 mg/dL [facility] Comment: ? Non-fasting reference interval BUN 26(H) 7 - 25 mg/dL [facility] CREATININE 0.88 0.50 - 0.99 mg/dL [facility] Comment: For patients >49 years of age, the reference limit for Creatinine is approximately 13% higher for people identified as -Chilean. GFR 68 > OR = 60 mL/min/1.7 3m2 [facility] GFR, 79 > OR = 60 mL/min/1.7 3m2 [facility] BUN/CREAT RATIO 30(H) 6 - 22 (calc) [facility] SODIUM 140 135 - 146 mmol/L [facility] POTASSIUM 4.1 3.5 - 5.3 mmol/L [facility] CHLORIDE 106 98 - 110 mmol/L [facility] CO2 29 20 - 32 mmol/L [facility] CALCIUM 9.2 8.6 - 10.4 mg/dL [facility] TOTAL PROTEIN 6.3 6.1 - 8.1 g/dL [facility] ALBUMIN 3.9 3.6 - 5.1 g/dL [facility] GLOBULIN 2.4 1.9 - 3.7 g/dL (calc) [facility] ALBUMIN/GLOBULIN RATIO 1.6 1.0 - 2.5 (calc) [facility] BILIRUBIN TOTAL 0.6 0.2 - 1.2 mg/dL [facility] ALKALINE PHOSPHATASE 83 37 - 153 U/L [facility] AST 16 10 - 35 U/L [facility] ALT 17 6 - 29 U/L [facility] Comment: Test Performed at: [facility] [address] [place] ??[phone] Florentino Barbosa D.O., MPH Blood 07/16/2021 11:5 2 AM CDT 07/16/2021 11:53 AM CDT Naresh Larios MD CHEMISTRY ORDERABLES [facility] [address] [place] [address] documented in this encounter Visit Diagnoses Diagnosis Right leg numbness- Primary Disturbance of skin sensation Thoracic spondylosis with cord compression Spondylosis with myelopathy, thoracic region Spinal cord injury of thoracic region without bone injury, subsequent encounter Cervical spondylosis with radiculopathy Cervical spondylosis with myelopathy Restless leg syndrome due to iron deficiency anemia documented in this encounter Care Teams Vocational Rehabilitation Teacher Relationship Specialty Start Date End Date Huang Alonso MD [address] [place] [address] PCP - General Family Practice 10/03/13 05/06/22 documented as of this encounter
--- OUTSIDE RECORDS SUMMARY | 2024-04-13 08:42 | XMS_ITS | Encounter Summary ---
Author Organization [facility] Address [address] [place] [address] Care Team Providers Care Sweet Dough Mixer Name Role Phone Huang Alonso MD Primary Care Provider [phone]- [phone] Encounter Details Date Type Department Care Team (Late Contact Info) Description 01/28/2022 Abstract [facility] Neurosurgery - [facility] [address] [address] Naresh Larios MD [address] [place] [address] -x0 (Work) Social History Tobacco [...] AM CDT Video Visit [facility] Physical Med and Rehab - Rehab Hosp [address] [address] [address] [place], [address] [place] [address] documented as of this encounter Visit Diagnoses Not on filedocumented in this encounter Care Teams Sweet Dough Mixer Relationship Specialty Start Date End Date Huang Alonso MD [address] [place] [address] PCP - General Family Practice 10/03/13 05/06/22 documented as of this encounter
--- OUTSIDE RECORDS SUMMARY | 2024-04-13 08:42 | XMS_ITS | Encounter Summary ---
Author Organization [facility] Address [address] [place] [address] Care Team Providers Care Motel Clerk Name Role Phone Huang Alonso MD Primary Care Provider [phone]- [phone] Encounter Details Date Type Department Care Team (Late Contact Info) Description 11/11/2021 Abstract [facility] Neurosurgery - [facility] [address] [address] Naresh Larios MD [address] [place] [address] -x0 (Work) Social History Tobacco [...] suspected to have Coronavirus/COVID-19? No / Unsure 11/10/2021 11:18 AM CDT documented as of this encounter Plan of Treatment Upcoming Encounters Date Type Department Care Team (Late st Contact Info) Description 08/24/2024 11:00 AM CDT Video Visit [facility] Physical Med and Rehab - Rehab Hosp [address] [address] [address] [place], [address] [place] [phone] documented as of this encounter Visit Diagnoses Not on filedocumented in this encounter Care Teams Motel Clerk Relationship Specialty Start Date End Date Huang Alonso MD [address] [place] [address] PCP - General Family Practice 10/03/13 05/06/22 documented as of this encounter
--- OUTSIDE RECORDS SUMMARY | 2024-04-13 08:42 | XMS_ITS | Encounter Summary ---
Author Organization [facility] Address [address] [place] [address] Care Team Providers Care Steel Pourer Name Role Phone Huang Alonso MD Primary Care Provider [phone]- [phone] Encounter Details Date Type Department Care Team (Late Contact Info) Description 11/18/2021 Abstract [facility] Neurosurgery - [facility] [address] [address] Naresh Larios MD [address] [place] [address] -x0 (Work) Social History Tobacco [...] Physical Med and Rehab - Rehab Hosp [address] [address] [address] [place], [address] [place] [phone] documented as of this encounter Visit Diagnoses Not on filedocumented in this encounter Care Teams Steel Pourer Relationship Specialty Start Date End Date Huang Alonso MD [address] [place] [address] PCP - General Family Practice 10/03/13 05/06/22 documented as of this encounter
--- OUTSIDE RECORDS SUMMARY | 2024-04-13 08:42 | XMS_ITS | Encounter Summary ---
Author Organization [facility] Address [address] Pablo: [place] [address] Care Team Providers Care Batting Machine Operator Insulation Name Role Phone Huang Alonso MD Primary Care Provider [phone] Encounter Details Date Type Department Care Team (Latest Contact Info) Description 05/28/2021 Travel Social History Tobacco Use Types Packs/Day [...] COVID-19? 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 documented as of this encounter Plan of Treatment Upcoming Encounters Date Type Department Care Team (Late st Contact Info) Description 08/24/2024 11:00 AM CDT Video Visit [facility] Physical Med and Rehab - [facility] [address] [place] [address] [place] [address] [place] [address] documented as of this encounter Visit Diagnoses Not on filedocumented in this encounter Care Teams Batting Machine Operator Insulation Relationship Specialty Start Date End Date Huang Alonso MD [address] [place] [address] PCP - General Family Practice 10/03/13 05/06/22 documented as of this encounter
--- OUTSIDE RECORDS SUMMARY | 2024-04-13 08:42 | XMS_ITS | Encounter Summary ---
Author Organization [facility] Address [address] [place] [address] Care Team Providers Care Shipping & Receiving Lead Name Role Phone Huang Alonso MD Primary Care Provider [phone]- [phone] Encounter Details Date Type Department Care Team (Latest Contact Info) Description 09/24/2021 1:18 PM CDT - 09/24/2021 11:59 PM CDT Hospital Encounter [facility] Imaging Services [facility] [address] [place] [address] Naresh Larios MD [address] [place] [address] -x0 (Work) Discharge Disposition: Home or Self Care Social [...] PM CDT documented as of this encounter Medications at Time of Discharge Medication Sig Dispensed Refills Start Date End Date pantoprazole (PROTONIX) 40 mg Tablet, Delayed Release (E.C.) Take 1 Tablet (40 mg) by mouth daily before breakfast. 30 Tablet 04/17/2021 traZODone (DESYREL) 50 mg tablet Take 1 Tablet (50 mg) by mouth daily at bedtime. 30 Tablet 04/16/2021 baclofen (LIORESAL) 10 mg tablet Take 1 Tablet (10 mg) by mouth daily after breakfast AND 1 Tablet (10 mg) daily after lunch AND 1 Tablet (10 mg) daily with supper AND 2 Tablets (20 mg) daily at bedtime. 150 Tablet 3 08/11/2021 11/10/2021 gabapentin (NEURONTIN) 100 mg capsule Take 2 Capsules (200 mg) by mouth every 8 hours. 180 Capsule 04/16/2021 12/24/2021 documented as of this encounter Plan of Treatment Upcoming Encounters Date Type Department Care Team (Late st Contact Info) Description 08/24/2024 11:00 AM CDT Video Visit [facility] Physical Med and Rehab - [facility] [address] [place] [address] [place] [address] [place] [address] documented as of this encounter Procedures Procedure Name Priority Date/Time Associated Diagnosis Comments XR CERVICAL SPINE 2 OR 3 VIEWS Routine 09/24/2021 1:29 PM CDT Postoperative follow-up documented in this encounter Results * XR CERVICAL SPINE 2 OR 3 VIEWS (09/24/2021 1:29 PM CDT) Anatomical Region Laterality Modality Spine Computed Radiogr aphy 09/24/2021 1:30 PM CDT Impressions 09/24/2021 2:33 PM CDT IMPRESSION: 1. ??Intact C4 C6 ACDF changes without evidence of hardware complication. DICTATION LOCATION: Location 4 Narrative 09/24/2021 2:33 PM CDT XR CERVICAL SPINE 2 OR 3 VIEWS DATE: 09/24/2021 1:29 PM CLINICAL INDICATION: Postoperative follow-up. COMPARISON: Cervical spine radiograph 05/28/2021. CT cervical and thoracic myelogram 03/17/2021. TECHNIQUE/FINDINGS: ?? C4-C6 ACDF changes are redemonstrated without evidence of hardware fracture, loosening, or migration when compared to radiographs 05/28/2021. No acute fracture or malalignment is identified. Prevertebral soft tissues appear within normal limits. Visualized lung apices are grossly clear. Procedure Note Gabo Hernandez, DO - 09/24/2021 XR CERVICAL SPINE 2 OR 3 VIEWS DATE: 09/24/2021 1:29 PM CLINICAL INDICATION: Postoperative follow-up. COMPARISON: Cervical spine radiograph 05/28/2021. CT cervical and thoracic myelogram 03/17/2021. TECHNIQUE/FINDINGS: C4-C6 ACDF changes are redemonstrated without evidence of hardware fracture, loosening, or migration when compared to radiographs 05/28/2021. No acute fracture or malalignment is identified. Prevertebral soft tissues appear within normal limits. Visualized lung apices are grossly clear. IMPRESSION: 1. Intact C4 C6 ACDF changes without evidence of hardware complication. DICTATION LOCATION: Location 4 Naresh Larios MD DIAGNOSTIC IMAGING O RDERABLES documented in this encounter Visit Diagnoses Diagnosis Postoperative follow-up Follow-up examination, following unspecified surgery documented in this encounter Care Teams Shipping & Receiving Lead Relationship Specialty Start Date End Date Huang Alonso MD [address] [place] [address] PCP - General Family Practice 10/03/13 05/06/22 documented as of this encounter
--- OUTSIDE RECORDS SUMMARY | 2024-04-13 08:42 | XMS_ITS | Encounter Summary ---
Author Organization [facility] Address [address] [place] [address] Care Team Providers Care Group Segment Consultant Name Role Phone Huang Alonso MD Primary Care Provider [phone]- [phone] Encounter Details Date Type Department Care Team (Late Contact Info) Description 01/02/2022 Abstract [facility] Physical Med and Rehab - [facility] [address] [place] [address] [place] [address] [place] [address] Social History Tobacco Use Types [...] Med and Rehab - [facility] [address] [place] [address] [address] [place], [address] [place] [phone] documented as of this encounter Visit Diagnoses Not on filedocumented in this encounter Care Teams Group Segment Consultant Relationship Specialty Start Date End Date Huang Alonso MD [address] [place] [address] PCP - General Family Practice 10/03/13 05/06/22 documented as of this encounter
--- OUTSIDE RECORDS SUMMARY | 2024-04-13 08:42 | XMS_ITS | Encounter Summary ---
Author Organization [facility] Address [address] [place] [address] Care Team Providers Care Distributor Operator Name Role Phone Huang Alonso MD Primary Care Provider [phone]- [phone] Encounter Details Date Type Department Care Team (Late Contact Info) Description 08/14/2021 Abstract [facility] Physical Med and Rehab - [facility] [address] [place] [address] [place] [address] [place] [address] Social History Tobacco Use Types [...] suspected to have Coronavirus/COVID-19? No / Unsure 08/11/2021 11:16 AM CDT documented as of this encounter Plan of Treatment Upcoming Encounters Date Type Department Care Team (Late Contact Info) Description 08/24/2024 11:00 AM CDT Video Visit [facility] Physical Med and Rehab [facility] [address] [place] [address] Be Rangel, [address] [place] [address] documented as of this encounter Visit Diagnoses Not on filedocumented in this encounter Care Teams Distributor Operator Relationship Specialty Start Date End Date Huang Alonso MD [address] [place] [address] PCP - General Family Practice 10/03/13 05/06/22 documented as of this encounter
--- OUTSIDE RECORDS SUMMARY | 2024-04-13 08:42 | XMS_ITS | Encounter Summary ---
Author Organization [facility] Address [address] [place] [address] Care Team Providers Care Cinder Snapper Name Role Phone Huang Alonso MD Primary Care Provider [phone]- [phone] Encounter Details Date Type Department Care Team (Late Contact Info) Description 09/25/2021 Abstract [facility] Neurosurgery - [facility] [address] [address] Naresh Larios MD [address] [place] [address]x0 (Work) Social History [...] Physical Med and Rehab - Rehab Hosp [address] [address] Be Rangel, [address] [place] [address] documented as of this encounter Visit Diagnoses Not on filedocumented in this encounter Care Teams Cinder Snapper Relationship Specialty Start Date End Date Huang Alonso MD [address] [place] [address] PCP - General Family Practice 10/03/13 05/06/22 documented as of this encounter
--- OUTSIDE RECORDS SUMMARY | 2024-04-13 08:42 | XMS_ITS | Encounter Summary ---
Author Organization [facility] Address [address] [place] [address] Care Team Providers Care Bench Shear Operator Name Role Phone Huang Alonso MD Primary Care Provider [phone]- [phone] Encounter Details Date Type Department Care Team (Late Contact Info) Description 07/25/2021 Abstract [facility] Neurosurgery - [facility] [address] [address] Naresh Larios MD [address] [place] [address]x0 (Work) Social History Tobacco [...] Description 08/24/2024 11:00 AM CDT Video Visit [facility] Physical Med and Rehab - Rehab Hosp [address] [address] Be Rangel, [address] [place] [address] documented as of this encounter Visit Diagnoses Not on filedocumented in this encounter Care Teams Bench Shear Operator Relationship Specialty Start Date End Date Huang Alonso MD [address] [place] [address] PCP - General Family Practice 10/03/13 05/06/22 documented as of this encounter
--- OUTSIDE RECORDS SUMMARY | 2024-04-13 08:42 | XMS_ITS | Encounter Summary ---
Author Organization [facility] Address [address] [place] [address] Care Team Providers Care Store Sales Manager Name Role Phone Huang Alonso MD Primary Care Provider [phone]- [phone] Encounter Details Date Type Department Care Team (Late Contact Info) Description 05/28/2021 Abstract [facility] Neurosurgery - [facility] [address] [place] [address] Naresh Larios MD [address] [place] [address] (Work) Social History Tobacco [...] COVID-19? No / Unsure 05/28/2021 1:15 PM MUSIC GRAPHER documented as of this encounter Plan of Treatment Upcoming Encounters Date Type Department Care Team (Late st Contact Info) Description 08/24/2024 11:00 AM CDT Video Visit [facility] Physical Med and Rehab - Rehab Hosp [address] [address] Be Rangel, [address] [place] [address] documented as of this encounter Visit Diagnoses Not on filedocumented in this encounter Care Teams Store Sales Manager Relationship Specialty Start Date End Date Huang Alonso MD [address] [place] [address] PCP - General Family Practice 10/03/13 05/06/22 documented as of this encounter
--- OUTSIDE RECORDS SUMMARY | 2024-04-13 08:42 | XMS_ITS | Encounter Summary ---
Author Organization [facility] Address [address] [place] [address] Care Team Providers Care Fire Marshal Refinery Name Role Phone Huang Alonso MD Primary Care Provider [phone]- [phone] Encounter Details Date Type Department Care Team (Late Contact Info) Description 11/12/2021 Abstract [facility] Physical Med and Rehab - [facility] [address] [place] [address] [place] [address] [place] [address] Social History Tobacco Use Types [...] Description 08/24/2024 11:00 AM CDT Video Visit [facility] Physical Med and Rehab - [facility] [address] [place] [address] Be Rangel, [address] [place] [address] documented as of this encounter Visit Diagnoses Not on filedocumented in this encounter Care Teams Fire Marshal Refinery Relationship Specialty Start Date End Date Huang Alonso MD [address] [place] [address] PCP - General Family Practice 10/03/13 05/06/22 documented as of this encounter
--- OUTSIDE RECORDS SUMMARY | 2024-04-13 08:42 | XMS_ITS | Encounter Summary ---
Author Organization [facility] Address [address] Pablo: [place] [id number] Care Team Providers Care Orthopaedic Doctor Name Role Phone Huang Alosno MD Primary Care Provider [phone] Encounter Details Date Type Department Care Team (Latest Contact Info) Description 08/11/2021 Travel Social History Tobacco Use Types Packs/Day [...] Med and Rehab - Rehab Hosp Clinic [address] [place] [address] [place] [address] [place] [address] documented as of this encounter Visit Diagnoses Not on filedocumented in this encounter Care Teams Orthopaedic Doctor Relationship Specialty Start Date End Date Huang Alonso MD [address] [place] [address] PCP - General Family Practice 10/03/13 05/06/22 documented as of this encounter
--- OUTSIDE RECORDS SUMMARY | 2024-04-13 08:42 | XMS_ITS | Encounter Summary ---
Author Organization [facility] Address [address] [place] [address] Care Team Providers Care Director Report Name Role Phone Huang Alonso MD Primary Care Provider [phone]- [phone] Reason for Referral * Physical Therapy (Routine) - Closed Specialty Diagnoses / Procedures Referred By Dougac t Referred To Contact Physical Therapy Diagnoses Neck pain Cervical spondylosis with radiculopathy Right leg numbness Naresh Larios MD [address] [address] Referral ID Status Reason Start Date Expiration Date Visits Re quested Visits Authorized [id number] Closed 09/24/2021 09/24/2022 6 6 Reason for Visit * Reason Comments Follow Up 6M FU from cervical sx w/ XR prior. Encounter Details Date Type Department Care Team (Latest Contact Info) Description 09/24/2021 2:15 PM CDT Office Visit [facility] Neurosurgery - [facility] [address] [place] [address] Naresh Larios MD [address] [place] [address]x0 (Work) Neck pain (Primary Dx); Cervical spondylosis with radiculopathy; Right leg numbness Social History Tobacco Use Types Packs/Day Years Used Date Smoking Tobacco: Former Cigarettes 0.5 5 1 975 - 1979 Smokeless Tobacco: Never Alcohol Use Standard Drinks/Week [...] PM CDT documented as of this encounter Last Filed Vital Signs Vital Sign Reading Time Taken Comments Blood Pressure 130/79 09/24/2021 1:47 PM CDT Pulse 90 09/24/2021 1:47 PM CDT Temperature 36.6 ??C (97.9 ??F) 09/24/2021 1:47 PM CD T Respiratory Rate - - Oxygen Saturation - - Inhaled Oxygen Concentration - - Weight - - Height 160 cm (5' 3 ) 09/24/2021 1:47 PM CDT Body Mass Index - - documented in this encounter Progress Notes * Ermelinda Roger PA - 09/24/2021 3:00 PM CDT [facility] Neurosurgery Clinic Follow Up Patient Name: Hailee Tanner : 1955 Date of Service: 09/24/2021 Subjective: Chief Complaint: Chief Complaint Patient presents with ??? Follow Up 6M FU from cervical sx w/ XR prior. History of Present Illness: Hailee is a 66 y.o. female who presents for a postoperative visit following Cervical Discectomy Fusion 2 Level Anterior and Thoracic Laminectomy on 03/13/2021. 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 Patient states she was doing pretty well and felt like she was improving until about 3 weeks ago when she had a blackout episode. She states that she does not remember anything and just woke up on the floor she was taken to [facility] in [place] and was told she was dehydrated. She was also had a cardiac work-up while she was there because she was having some abnormal rhythms per the patient I reviewed care everywhere none of the notes from [facility] are in the computer for me to review. She states she also had a kidney stone and had an intervention for this. Currently she states that she is having increased spasticity since the hospitalization and virus that she had prior to that. Before the hospitalization she had been working with Dr. Quintanilla at the [facility] and he increased her baclofen. She states that this was helping but then this was a setback. She continues to do therapy but missed a couple weeks with her recent hospitalization. Overall she is still frustrated with her progress and progression of her weakness and overall spasticity and quality of life. She does walk at home with a walker and is able to get up and go to the bathroom. She is continuingthe baclofen as prescribed by Dr. De La Torre. She continues to do therapy including water therapy. She again talked about some muscle pain that she has near her thoracic incision I asked if the therapist was doing the heat ultrasound and massage that we prescribed at the last visit and she states that the therapist did not think that this would benefit her. Patient Active Problem List Diagnosis Code ??? [...] Types: Cigarettes Quit date: 1979 Years since quittin.4 ??? Smokeless tobacco: Never Used Substance Use [...] mg) daily at bedtime. 150 Tablet 3 ??? bisacodyl (THE MAGIC BULLET) 10 mg Suppository rectal suppository Insert 1 Suppository (10 mg) by rectum daily. 30 Suppository 11 ??? gabapentin (NEURONTIN) 100 mg capsule Take 2 Capsules (200 mg) by mouth every 8 hours. 180 Capsule 0 ??? pantoprazole (PROTONIX) 40 mg Tablet, Delayed Release (E.C.) Take 1 Tablet (40 mg) by mouth daily before breakfast. 30 Tablet 0 ??? traZODone (DESYREL) 50 mg tablet Take 1 Tablet (50 mg) by mouth daily at bedtime. 30 Tablet 0 No current facility-administered medications on file prior to visit. Review of Systems: Review of Systems Musculoskeletal: Positive for back pain, myalgias and neck pain. Neurological: Positive for weakness. Negative for tingling, sensory change, focal weakness and headaches. Objective: Physical Exam: BP 130/79 (BP Location: Left arm, Patient Position (BP): Sitting, BP Cuff Size: Large Adult) Pulse 90 Temp 97.9 ??F (36.6 ??C) (Temporal) Ht 5' 3 (1.6 m) BMI 32.24 kg/m?? Normal BMI Range: 18 [...] Labs: Lab Results Component Value Date/Time WBC 4.1 07/16/2021 11:52 AM HGB 11.9 07/16/2021 11:52 AM HCT 35.8 07/16/2021 11:52 AM PLT 181 07/16/2021 11:52 AM NA 140 07/16/2021 11:52 AM K 4.1 07/16/2021 11:52 AM INR 1.2 (H) 03/14/2021 02:03 AM [...] AM Lab Results Component Value Date/Time CA 9.2 07/16/2021 11:52 AM VITAMINDTO 22 (L) 03/28/2021 05:04 AM TSH 2.28 03/28/2021 05:04 AM No components found for: NICU, COTU, NICS, COTS Imaging Studies: No new imaging Assessment and Plan: ICD-10-CM ICD-9-CM 1. Neck pain M54.2 723.1 AMB REFERRAL TO PHYSICAL THERAPY 2. Cervical spondylosis with radiculopathy M47.22 721.0 AMB REFERRAL TO PHYSICAL THERAPY 3. Right leg numbness R20.0 782.0 AMB REFERRAL TO PHYSICAL THERAPY Plan: Continue to see Dr. De La Torre for spasticity medical management and continue the baclofen. We will send a new prescription for continuing her physical therapy as I think this is her best betfor regaining function at this time. We discussed that it is very important for her to stay hydrated and keep up with her primary care doctor regarding her overall electrolytes as this can very much impact her nerves in her muscle spasms. Her cervical x-rays today look stable alignment and positioning of hardware. We also had another discussion about overall prognosis and that we would give her 12 to 18 months post surgery to see how she recovers and think that this would be her new baseline. Patient is frustrated today with her quality of life but we did reassure her that she is only 6 months out from her surgery and spinal cord reperfusion injury and that she can still regain some function with continuedtherapy and time to see if the spinal cord heals. We will see her back in 3 months to see how she is doing with the continued therapy and after she has recovered from this episode of dehydration and hospitalization. Follow up: 3 months no xrays at that time This patient was seen jointly by Naresh Larios MD and transcribed by Ermleinda Roger PA-C. This dictation was completed using [employer] Speaking Software. Enforcement Officer variances may occur. documented in this encounter Plan of Treatment Upcoming Encounters Date Type Department Care Team (Late st Contact Info) Description 08/24/2024 11:00 AM CDT Video Visit [facility] Physical Med and Rehab - Re[facility] Hosp Clinic [address] [place] [address] Be Rangel, [address] [place] [address] Scheduled Referrals Name Type Priority Associated Diagnoses Orde r Schedule AMB REFERRAL TO PHYSICAL THERAPY Outpatient Referral Routine Neck pain Cervical spondylosis with radiculopathy Right leg numbness Ordered: 09/24/2021 documented as of this encounter Visit Diagnoses Diagnosis Neck pain- Primary Cervicalgia Cervical spondylosis with radiculopathy Cervical spondylosis with myelopathy Right leg numbness Disturbance of skin sensation documented in this encounter Care Teams Director Report Relationship Specialty Start Date End Date Huang Alonso MD [address] [place] [address] PCP - General Family Practice 10/03/13 05/06/22 documented as of this encounter
--- OUTSIDE RECORDS SUMMARY | 2024-04-13 08:42 | XMS_ITS | Encounter Summary ---
Author Organization [facility] Address [address] [place] [address] Care Team Providers Care Beekeeper Farmer Name Role Phone Huang Alonso MD Primary Care Provider [phone]- [phone] Encounter Details Date Type Department Care Team (Latest Contact Info) Description 05/28/2021 1:16 PM DIRECTOR BLOOD BANK - 05/28/2021 11:59 PM DIRECTOR BLOOD BANK Hospital Encounter [facility] [place] [address] [place] [address] Naresh Larios MD [address] [place] [address]x0 (Work) Discharge Disposition: Home [...] COVID-19? No / Unsure 05/28/2021 1:15 PM DIRECTOR BLOOD BANK documented as of this encounter Medications at Time of Discharge Medication Sig Dispensed Refills Start Date End Date pantoprazole (PROTONIX) 40 mg Tablet, Delayed Release (E.C.) Take 1 Tablet (40 mg) by mouth daily before breakfast. 30 Tablet 04/17/2021 traZODone (DESYREL) 50 mg tablet Take 1 Tablet (50 mg) by mouth daily at bedtime. 30 Tablet 04/16/2021 baclofen (LIORESAL) 10 mg tablet Take 0.5 Tablets (5 mg) by mouth 3 times daily. 30 Tablet 1 05/28/2021 06/09/2021 gabapentin (NEURONTIN) 100 mg capsule Take 2 Capsules (200 mg) by mouth every 8 hours. 180 Capsule 04/16/2021 12/24/2021 documented as of this encounter Plan of Treatment Upcoming Encounters Date Type Department Care Team (Late st Contact Info) Description 08/24/2024 11:00 AM CDT Video Visit [facility] Physical Med and Rehab - Rehab Hosp Clinic [address] [place] [address] [place] [address] [place] [address] documented as of this encounter Procedures Procedure Name Priority Date/Time Associated Diagnosis Comments XR CERVICAL SPINE 2 OR 3 VIEWS Routine 05/28/2021 1:37 PM DIRECTOR BLOOD BANK Neck pain Cervical spondylosis with radiculopathy documented in this encounter Results * XR CERVICAL SPINE 2 OR 3 VIEWS (05/28/2021 1:37 PM DIRECTOR BLOOD BANK) Anatomical Region Laterality Modality Spine Computed Radiogr aphy 05/28/2021 1:37 PM DIRECTOR BLOOD BANK Impressions 05/28/2021 5:42 PM DIRECTOR BLOOD BANK IMPRESSION: 1. No acute abnormality identified. DICTATION LOCATION: Location 1 - [facility] Narrative 05/28/2021 5:42 PM DIRECTOR BLOOD BANK XR CERVICAL SPINE 2 OR 3 VIEWS [...] No acute abnormality identified. DICTATION LOCATION: Location 1 - [facility] Naresh Larios MD DIAGNOSTIC IMAGING O RDERABLES documented in this encounter Visit Diagnoses Diagnosis Neck pain Cervicalgia Cervical spondylosis with radiculopathy Cervical spondylosis with myelopathy documented in this encounter Care Teams Beekeeper Farmer Relationship Specialty Start Date End Date Huang Alonso MD [address] [place] [address] PCP - General Family Practice 10/03/13 05/06/22 documented as of this encounter
--- OUTSIDE RECORDS SUMMARY | 2024-04-13 08:42 | XMS_ITS | Encounter Summary ---
Author Organization [facility] Address [address] [place] [address] Care Team Providers Care Warehouse Director Name Role Phone Huang Alonso MD Primary Care Provider [phone] Reason for Visit * Reason Onset Date Comments Medication Refill 07/16/2021 Encounter Details Date Type Department Care Team (Late st Contact Info) Description 07/16/2021 Refill [facility] Neurosurgery - Medical [place] [address] [facility] [address] [place] [address] Ermelinda Roger PA [address] [facility] [address] [address] Social History Tobacco Use Types [...] AM CDT documented as of this encounter Miscellaneous Notes * Telephone Encounter - Ermelinda Roger PA - 07/16/2021 11:43 AM CDT eRx new baclofen rx documented in this encounter Plan of Treatment Upcoming Encounters Date Type Department Care Team (Late st Contact Info) Description 08/24/2024 11:00 AM CDT Video Visit [facility] Physical Med and Rehab - Rehab Hosp Clinic [address] [place] [address] [place] [address] [place] [address] documented as of this encounter Visit Diagnoses Not on filedocumented in this encounter Care Teams Warehouse Director Relationship Specialty Start Date End Date Huang Alonso MD [address] [place] [place] [address] PCP - General Family Practice 10/03/13 05/06/22 documented as of this encounter
--- OUTSIDE RECORDS SUMMARY | 2024-04-13 08:42 | XMS_ITS | Encounter Summary ---
Author Organization [facility] Address [address] [place] [address] Care Team Providers Care Sales And Retail Management Recruiter Name Role Phone Huang Alonso MD Primary Care Provider [phone]- [phone] Encounter Details Date Type Department Care Team (Late Contact Info) Description 12/09/2021 Abstract [facility] Neurosurgery - [facility] [address] [address] Naresh Larios MD [address] [place] [address]x0 (Work) Social History Tobacco [...] Physical Med and Rehab - Rehab Hosp [address] [address] Be Rangel, [address] [place] [address] documented as of this encounter Visit Diagnoses Not on filedocumented in this encounter Care Teams Sales And Retail Management Recruiter Relationship Specialty Start Date End Date Huang Alonso MD [address] [place] [address] PCP - General Family Practice 10/03/13 05/06/22 documented as of this encounter
--- OUTSIDE RECORDS SUMMARY | 2024-04-13 08:42 | XMS_ITS | Encounter Summary ---
Author Organization [facility] Address [address] [place] [address] Care Team Providers Care Utility Service Worker Name Role Phone Huang Alonso MD Primary Care Provider [phone]- [phone] Encounter Details Date Type Department Care Team (Late Contact Info) Description 05/29/2021 Abstract [facility] Neurosurgery - [facility] [address] [place] [address] Naresh Larios MD [address] [place] [address]x0 (Work) Social History [...] COVID-19? No / Unsure 05/28/2021 1:15 PM CONE PICKER documented as of this encounter Plan of Treatment Upcoming Encounters Date Type Department Care Team (Late st Contact Info) Description 08/24/2024 11:00 AM CDT Video Visit [facility] Physical Med and Rehab - Rehab Hosp [address] [address] Be Rangel, [address] [place] [address] documented as of this encounter Visit Diagnoses Not on filedocumented in this encounter Care Teams Utility Service Worker Relationship Specialty Start Date End Date Huang Alonso MD [address] [place] [address] PCP - General Family Practice 10/03/13 05/06/22 documented as of this encounter
--- OUTSIDE RECORDS SUMMARY | 2024-04-13 08:42 | XMS_ITS | Encounter Summary ---
Author Organization [facility] Address [address] [place] [address] Care Team Providers Care Third Shift Lieutenant Name Role Phone Huang Alonso MD Primary Care Provider [phone]- [phone] Encounter Details Date Type Department Care Team (Late Contact Info) Description 12/24/2021 Abstract [facility] Physical Med and Rehab - Re[facility] Hosp Clinic [address] [place] [address] [place] [address] [place] [address] Social History Tobacco Use Types [...] Description 08/24/2024 11:00 AM CDT Video Visit [facility] Physical Med and Rehab - Rehab Hosp Clinic [address] [place] [address] Be Rangel, [address] [place] [address] documented as of this encounter Visit Diagnoses Not on filedocumented in this encounter Care Teams Third Shift Lieutenant Relationship Specialty Start Date End Date Huang Alonso MD [address] [place] [address] PCP - General Family Practice 10/03/13 05/06/22 documented as of this encounter
--- OUTSIDE RECORDS SUMMARY | 2024-04-13 08:42 | XMS_ITS | Encounter Summary ---
Author Organization [facility] Address [address] [place] [address] Care Team Providers Care Electric Furnace Operator Name Role Phone Huang Alonso MD Primary Care Provider [phone] [phone] Reason for Visit * Reason Comments Follow Up Encounter Details Date Type Department Care Team (Late st Contact Info) Description 07/30/2021 12:00 PM CDT Video Visit [facility] Physical Med and Rehab - Re[facility] H[facility] [address] [place] [address] [place] [address] [place] [address] Cervical spondylosis with radiculopathy (Primary Dx); Cord compression Social History Tobacco [...] suspected to have Coronavirus/COVID-19? No / Unsure 07/30/2021 12:03 PM CDT documented as of this encounter Progress Notes * Be Rangel DO - 07/30/2021 12:00 PM CDT Physical Medicine and Rehabilitation Discharge Clinic Note This encounter was completed via two-way synchronous audio and video communication. Patient expressed understanding that using technology outside of [facility] has higher potential tointroduce privacy risks: Not Applicable Patient's identity confirmed yes Patient gave verbal consent to have these services billed to their insurance and expressed understanding that co-insurance and deductible may apply: yes Patient: Hailee Tanner Date of visit: 07/30/2021 Date of discharge: 04/17/21 Chief complaint: The spasms are horrendous Subjective: Hailee Tanner presents to establish outpatient rehabilitation care. she was discharged from [facility] on [facility]/17 after completing a rehabilitation course for SCI From her rehab admission note: Patient is a 65-year-old female who presented to hospital on 03/13/2021 with posterior headaches, right arm, and neck pain that started approximately 3 months prior. Imaging showed cervical spondylosis and disc osteophytes causing severe right-sided C4-5 neuroforaminal stenosis and stenosis at C5-6with disc herniation at T2-3 with severe stenosis and cord compression. She underwent C4-5 and C5-6ACDF and T2-[address] Larios. Postoperatively, she developed bilateral lower extremity weakness and left hemibody numbness. Stat imaging showed increased cord signal at T2-3 without fluid collection. She was started on Levophed for blood pressure and IV steroids. She slowly started to improve her strength and movement in her lower extremities. Hospital course also significant for neurogenic bowel and bladder, hyponatremia, steroid-induced leukocytosis, pain. ?? Patient was seen by PT, OT, during the acute hospitalization and was felt to be an appropriate acute rehab candidate. she was transferred to [facility] on 03/27/2021 for participation in a comprehensive rehabilitation program. Since discharge, she has been doing well in therapies, making progress. She is back to living home by herself for the last month. She will be reevaluated to continue therapies within the next week. She still has some saddle anesthesia to some degree. Her biggest complaint today is spasticity. She reports the spasms are horrendous. Things started getting worse over the last few weeks. Before that, they were stable and while inconvenient, not debilitating. She has been taking baclofen 10 mg 3 times a day and then 10 mg twice a day with 20 mg atnight. She was seen by her neurosurgeon in follow-up and the baclofen was increased to 20 mg twice a day with 30 mg at night. He reports this dosing is too high and she gets really sleepy. It does help the spasms to some degree, but she cannot tolerate this higher dose. The spasms are still locatedmostly in her legs and abdomen. She is not able to identify any inciting event 3 weeks ago that could have caused her increase in spasticity. She denies any sign or symptom of urinary tract infection, no urinary frequency or incontinence. No foul-smelling urine. As far as her bowels go, she would often go 3 days between bowel movements and will utilize a suppository. She does state that having a bowel movement will help the spasms. Prescriptions obtained: Yes Outpatient therapies initiated: Yes Other physician follow-up appointment: Yes Durable medical equipment (DME): Yes Review of Systems Constitutional: Negative. Gastrointestinal: Positive for constipation. Genitourinary: Negative. Musculoskeletal: Positive for back pain. Negative for falls. Neurological: Spasticity Psychiatric/Behavioral: Negative. Social History Socioeconomic History ??? Marital status: Spouse name: Not on file ??? Number of children: Not on file ??? Years of education: Not on file ??? Highest education level: Not on file Occupational History ??? Not on file Tobacco Use ??? Smoking status: Former Smoker Packs/day: 0.50 Years: 5.00 Pack years: 2.50 Types: Cigarettes Quit date: 1980 Years since quittin.3 ??? Smokeless tobacco: Never Used Vaping Use ??? Vaping Use: Never used Substance and Sexual Activity ??? Alcohol use: Never ??? Drug use: Never ??? Sexual activity: Not on file Other Topics Concern ??? Not on file Social History Narrative ??? Not on file Social Determinants of Health Financial Resource Strain: Not on file Food Insecurity: Not on file Transportation Needs: Not on file Physical Activity: Not on file Stress: Not on file Social Connections: Not on file Intimate Partner Violence: Not on file Housing Stability: Not on file Home environment: Back to living by herself Medications reviewed. Current Outpatient Medications: ??? baclofen (LIORESAL) 10 mg tablet, Take 2 Tablets (20 mg) by mouth daily after breakfast AND 2 Tablets (20 mg) daily after lunch AND 3 Tablets (30 mg) daily at bedtime., Disp: 210 Tablet, Rfl: 1 ??? bisacodyl (THE MAGIC BULLET) 10 mg Suppository rectal suppository, Insert 1 Suppository (10 mg)by rectum daily., Disp: 30 Suppository, Rfl: 11 ??? gabapentin (NEURONTIN) 100 mg capsule, Take 2 Capsules (200 mg) by mouth every 8 hours., Disp: 180 Capsule, Rfl: 0 ??? pantoprazole (PROTONIX) 40 mg Tablet, Delayed Release (E.C.), Take 1 Tablet (40 mg) by mouth daily before breakfast., Disp: 30 Tablet, Rfl: 0 ??? tiZANidine (ZANAFLEX) 4 mg Tablet, Take 1 Tablet (4 mg) by mouth every 6 hours as needed for Spasm., Disp: 75 Tablet, Rfl: 0 ??? traZODone (DESYREL) 50 mg tablet, Take 1 Tablet (50 mg) by mouth daily at bedtime., Disp: 30 Tablet, Rfl: 0 ??? fludrocortisone (FLORINEF) 0.1 mg tablet, Take 2 Tablets (0.2 mg) by mouth daily., Disp: 60 Tablet, Rfl: 0 ??? midodrine (PROAMATINE) 10 mg Tablet, Take 1 Tablet (10 mg) by mouth 2 times daily., Disp: 60 Tablet, Rfl: 0 ??? tamoxifen (NOLVADEX) 20 mg tablet, Take 1 Tablet by mouth daily., Disp: , Rfl: Objective: Vitals: There were no vitals taken for this visit. General:alert, no distress and cooperative Lungs:normal respiratory effort Neuro: CN II-XII grossly intact, no facial [...] CRP 4.4 04/14/2021 04:06 AM ASSESSMENT/PLAN: 66 y.o.??female??who underwent C4-6 ACDF and T2-T3 laminectomy on 03/13/[address] 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 she presents today to establish outpatient rehabilitation care. No orders of the defined types were placed in this encounter. 1. Patient has successfully transitioned from acute inpatient rehabilitation to an outpatient rehabilitation program for the above. She is doing well overall from a functional standpoint. She is backliving at home. She will continue with outpatient therapies and home exercise program 2. Spasticity: Her spasticity has been stable until approximately 2 to 3 weeks ago. There is no apparent inciting event. The logistics of collecting a urine sample are difficult as she lives alone cannot place the urine cup appropriately. As there are no other signs of infection, we will hold off for now. She does have constipation issues, where she will wait approximately 3 days before using suppository to help have a bowel movement. She states having a bowel movement will help the spasms. Recommend she try daily suppository to see if this helps her spasticity in any way. We spoke about her baclofen dosing. She has been recommended to take 20 mg in the morning and afternoon [facility] This particular dosing is little strong for her and she gets very sleepy on the medication. We spoke about stretching out the medication throughout the day at lower doses. Recommend she trial 10 mg in the morning, early afternoon, evening, and 20 mg at bedtime. We will follow-up in 2 weeks tosee how her spasms are doing. She may need to be switched to a different agent. Her LFTs look good and she will would benefit from a trial of Dantrium if needed. Follow up: in 2 weeks Issues to address at follow-up: Spasticity Total time spent: 30 minutes. Greater than 50% was spent counseling and coordination of care. Electronically Signed by: Be Rangel DO Physical Medicine and Rehabilitation [phone] ATTESTATION STATEMENTS Portions of this note were transcribed using [employer] speaking computerized voice recognition without a human packaging design engineer. This report may or may not have been adjusted for typographical, grammatical and syntax errors or malapropisms. documented in this encounter Plan of Treatment Upcoming Encounters Date Type Department Care Team (Late st Contact Info) Description 08/24/2024 11:00 AM CDT Video Visit [facility] Physical Med and Rehab - Rehab Hosp Clinic [id number] [place] [address] [place] [address] [place] [address] documented as of this encounter Visit Diagnoses Diagnosis Cervical spondylosis with radiculopathy- Primary Cervical spondylosis with myelopathy Cord compression Unspecified disease of spinal cord documented in this encounter Care Teams Electric Furnace Operator Relationship Specialty Start Date End Date Huang Alonso MD [address] [place] [address] PCP - General Family Practice 10/03/13 05/06/22 documented as of this encounter
--- OUTSIDE RECORDS SUMMARY | 2024-04-13 08:42 | XMS_ITS | Encounter Summary ---
Author Organization [facility] Address [address] [place] [address] Care Team Providers Care Grain Elevator Man Name Role Phone Huang Alonso MD Primary Care Provider [phone]- [phone] Encounter Details Date Type Department Care Team (Late st Contact Info) Description 10/28/2021 Abstract [facility] Neurosurgery - [facility] [address] [address] [place] [address] Naresh Larios MD [address] [facility] [address] [address]x0 (Work) Social History Tobacco [...] Med and Rehab - Rehab Hosp Clinic [address] [place] [address] [place] [address] [place] [address] documented as of this encounter Visit Diagnoses Not on filedocumented in this encounter Care Teams Grain Elevator Man Relationship Specialty Start Date End Date Huang Alonso MD [address] [place] [address] PCP - General Family Practice 10/03/13 05/06/22 documented as of this encounter
--- OUTSIDE RECORDS SUMMARY | 2024-04-13 08:42 | XMS_ITS | Encounter Summary ---
Author Organization [facility] Address [address] Pablo: [place] [address] Care Team Providers Care Operations And Maintenance Manager Name Role Phone Huang Alonso MD Primary Care Provider [phone] Encounter Details Date Type Department Care Team (Latest Contact Info) Description 09/24/2021 Travel Social History Tobacco Use Types Packs/Day [...] Med and Rehab - Rehab Hosp Clinic [address] [place] [address] [place] [address] [place] [address] documented as of this encounter Visit Diagnoses Not on filedocumented in this encounter Care Teams Operations And Maintenance Manager Relationship Specialty Start Date End Date Huang Alonso MD [address] [place] [address] PCP - General Family Practice 10/03/13 05/06/22 documented as of this encounter
--- OUTSIDE RECORDS SUMMARY | 2024-04-13 08:42 | XMS_ITS | Encounter Summary ---
Author Organization [facility] Address [address] [place] [address] Care Team Providers Care Digital Media Associate Name Role Phone Huang Alonso MD Primary Care Provider [phone]- [phone] Encounter Details Date Type Department Care Team (Late Contact Info) Description 01/28/2022 Abstract [facility] Neurosurgery - [facility] [address] [address] Naresh Larios MD [address] [place] [address]x0 (Work) Social History Tobacco [...] Physical Med and Rehab - Rehab Hosp [address] [address] Be Rangel, [address] [place] [address] documented as of this encounter Visit Diagnoses Not on filedocumented in this encounter Care Teams Digital Media Associate Relationship Specialty Start Date End Date Huang Alonso MD [address] [place] [address] PCP - General Family Practice 10/03/13 05/06/22 documented as of this encounter
--- OUTSIDE RECORDS SUMMARY | 2024-04-13 08:42 | XMS_ITS | Encounter Summary ---
Author Organization [facility] Address [address] [place] [address] Care Team Providers Care Beverage Steward Name Role Phone Huang Alonso MD Primary Care Provider [phone]- [phone] Encounter Details Date Type Department Care Team (Late Contact Info) Description 05/29/2021 Abstract [facility] Neurosurgery - [facility] [address] [place] [address] Naresh Larios MD [address] [place] [address]x0 (Work) Social History Tobacco [...] COVID-19? No / Unsure 05/28/2021 1:15 PM SHINGLER documented as of this encounter Plan of Treatment Upcoming Encounters Date Type Department Care Team (Late st Contact Info) Description 08/24/2024 11:00 AM CDT Video Visit [facility] Physical Med and Rehab - Rehab Hosp [address] [address] Be Rangel, [address] [place] [address] documented as of this encounter Visit Diagnoses Not on filedocumented in this encounter Care Teams Beverage Steward Relationship Specialty Start Date End Date Huang Alonso MD [address] [place] [address] PCP - General Family Practice 10/03/13 05/06/22 documented as of this encounter
--- OUTSIDE RECORDS SUMMARY | 2024-04-13 08:42 | XMS_ITS | Encounter Summary ---
Author Organization [facility] Address [address] [place] [address] Care Team Providers Care Signals Officer Name Role Phone Huang Alonso MD Primary Care Provider [phone]- [phone] Reason for Visit * Reason Comments Follow Up Encounter Details Date Type Department Care Team (Late st Contact Info) Description 01/23/2022 11:00 AM CDT Video Visit [facility] Physical Med and Rehab - Rehab Hosp Clinic [address] [place] [address] [place] [address] [place] [address] Brown-Sequard syndrome (Primary Dx) Social [...] Progress Notes * Be Rangel DO - 01/23/2022 11:00 AM CDT Physical Medicine and Rehabilitation [...] yes Patient: Hailee Tanner Date of visit: 01/23/2022 Date of last visit: 12/24/21 Chief complaint: Doing better Subjective: The patient presents for outpatient follow up. she was last seen on 12/24. At the time of that visit, she was having ongoing spasticity and muscle tightness. The spasticity was worse at night. She felt the tightness and spasticity continue to impair her ability to participate in therapies. We spoke about trialing the Valium for nighttime. We also increased the dose of gabapentin Since that time she is happy to report that the increased dose of gabapentin has greatly improved the spasm and tightness throughout the day. She has taken the Valium occasionally at night and this too has helped. She is better able to participate in therapies. She says therapies are going much better now. She says her therapists note significant improvements in her overall gait and balance. She is still walking with a walker but is hopeful to move to a cane. She really enjoys aquatic therapy and is walking well on the underwater treadmill forwards and backwards. Review of Systems Constitutional: Negative. Gastrointestinal: Negative. [...] 4 times daily., Disp: 720 Tablet,Rfl: 1 bisacodyl (THE MAGIC BULLET) 10 mg Suppository [...] in this encounter. 1. Spinal cord injury: She is doing much better overall now that her pain and spasms are better controlled. Continue with outpatient therapies. 2. Spasticity: Improved with the increased dose of gabapentin and the additional as needed dose of Valium at nighttime 3. Pain: Doing much better with the increased Gabapentin dosing Follow up: 3 months Issues to address at follow-up: Overall function Total time spent: 20 minutes. Greater than 50% was spent counseling and coordination of care. Electronically signed by: Be Rangel DO Physical Medicine and Rehabilitation [phone] ATTESTATION STATEMENTS Portions of this note were transcribed using [employer] speaking computerized voice recognition without a human metal moulder. This report may or may not have been adjusted for typographical, grammatical and syntax errors or malapropisms. 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
--- OUTSIDE RECORDS SUMMARY | 2024-04-13 08:42 | XMS_ITS | Encounter Summary ---
Author Organization [facility] Address [address] Pablo: [place] [address] Care Team Providers Care Head Tennis Professional Name Role Phone Huang Alonso MD Primary Care Provider [phone] Encounter Details Date Type Department Care Team (Latest Contact Info) Description 12/24/2021 Travel Social History Tobacco Use Types Packs/Day [...] Med and Rehab - Rehab Hosp Clinic [address] [place] [address] [place] [address] [place] [address] documented as of this encounter Visit Diagnoses Not on filedocumented in this encounter Care Teams Head Tennis Professional Relationship Specialty Start Date End Date Huang Alonso MD [address] [place] [address] PCP - General Family Practice 10/03/13 05/06/22 documented as of this encounter
--- OUTSIDE RECORDS SUMMARY | 2024-04-13 08:42 | XMS_ITS | Encounter Summary ---
Author Organization [facility] Address [address] [place] [address] Care Team Providers Care Vice President Research Name Role Phone Huang Alonso MD Primary Care Provider [phone]- [phone] Reason for Visit * Reason Onset Date Comments f/u visit from surgery 04/18/2021 Encounter Details Date Type Department Care Team (Late st Contact Info) Description 04/18/2021 Telephone [facility] Neurosurgery - [facility] [address] [place] [address] Naresh Larios MD [address] [facility] [address] [facility] [place] [address]x0 (Work) f/u visit from surgery Social History Tobacco Use Types Packs/Day Years Used Date Smoking Tobacco: Former Cigarettes 0.5 5 1 755 - 4977 Smokeless Tobacco: Never Alcohol Use Standard Drinks/Week [...] have Coronavirus / COVID-19? No / Unsure 03/27/2021 10:59 PM FITNESS PROFESSIONAL documented as of this encounter Miscellaneous Notes * Telephone Encounter - Christine Cottrell - 05/07/2021 11:23 AM CST ORDER PLACED ESS PROFESSIONAL * Telephone Encounter - Gladys Seals - 05/07/2021 11:05 AM CST Christine, Please place these XR orders. Thank you! ESS PROFESSIONAL * Telephone Encounter - Eloise Syed PA - 04/25/2021 1:53 PM CST Called back and relayed below. ESS PROFESSIONAL * Telephone Encounter - Dougie Bell PA - 04/23/2021 10:43 AM CST LMOM again ESS PROFESSIONAL * Telephone Encounter - Dougie Bell PA - 04/21/2021 10:09 AM CST LMOM for her to call back and discuss. She should return 2 months from surgery with AP/L cervical xrays. ESS PROFESSIONAL * Telephone Encounter - Gay Blackwell - 04/18/2021 4:34 PM CST [facility]. She had a two level acdf & thoracic hawley on 03/13/[address] larios. Pt has had the sutures removed and according to the nurse is well healed. When is the pt to return to the office for f/u and will she need xrays. You can speak with micheal or who-ever the nurse is director of labor relations. Thank you. ESS PROFESSIONAL documented in this encounter Plan of Treatment Upcoming Encounters Date Type Department Care Team (Late st Contact Info) Description 08/24/2024 11:00 AM CDT Video Visit [facility] Physical Med and Rehab - Rehab Hosp Clinic [address] [place] [address] [place] [address] [place] [address] documented as of this encounter Visit Diagnoses Not on filedocumented in this encounter Care Teams Vice President Research Relationship Specialty Start Date End Date Huang Alonso MD [address] [place] [address] PCP - General Family Practice 10/03/13 05/06/22 documented as of this encounter
--- OUTSIDE RECORDS SUMMARY | 2024-04-13 08:42 | XMS_ITS | Encounter Summary ---
Author Organization [facility] Address [address] [place] [address] Care Team Providers Care Assembler Golf Wood Head Name Role Phone Huang Alonso MD Primary Care Provider [phone]- [phone] Encounter Details Date Type Department Care Team (Late Contact Info) Description 09/30/2021 Abstract [facility] Neurosurgery - [facility] [address] [address] Naresh Larios MD [address] [place] [address]x0 (Work) Social History Tobacco [...] Physical Med and Rehab - Rehab Hosp [address] [address] Be Rangel, [address] [place] [address] documented as of this encounter Visit Diagnoses Not on filedocumented in this encounter Care Teams Assembler Golf Wood Head Relationship Specialty Start Date End Date Huang Alonso MD [address] [place] [address] PCP - General Family Practice 10/03/13 05/06/22 documented as of this encounter
--- OUTSIDE RECORDS SUMMARY | 2024-04-13 08:42 | XMS_ITS | Encounter Summary ---
Author Organization [facility] Address [address] [place] [address] Care Team Providers Care Dry Room Attendant Name Role Phone Huang Alonso MD Primary Care Provider [phone]- [phone] Encounter Details Date Type Department Care Team (Late Contact Info) Description 08/25/2021 Abstract [facility] Neurosurgery - [facility] [address] [address] Naresh Larios MD [address] [place] [address]x0 (Work) Social History Tobacco [...] Physical Med and Rehab - Rehab Hosp [address] [address] Be Rangel, [address] [place] [address] documented as of this encounter Visit Diagnoses Not on filedocumented in this encounter Care Teams Dry Room Attendant Relationship Specialty Start Date End Date Huang Alonso MD [address] [place] [address] PCP - General Family Practice 10/03/13 05/06/22 documented as of this encounter
--- OUTSIDE RECORDS SUMMARY | 2024-04-13 08:42 | XMS_ITS | Encounter Summary ---
Author Organization [facility] Address [address] [place] [address] Care Team Providers Care Field Contact Technician Name Role Phone Huang Alonso MD Primary Care Provider [phone] Reason for Visit * Reason Onset Date Comments muscle pain 05/30/2021 Encounter Details Date Type Department Care Team (Late st Contact Info) Description 05/30/2021 Telephone [facility] Neurosurgery - Medical [place] [address] [facility] [address] [place] [address] Naresh Larios MD [address] [facility] [address] [address] -x0 (Work) muscle pain Social History Tobacco Use Types Packs/Day Years [...] No / Unsure 05/28/2021 1:15 PM DIRECTOR OF RESPIRATORY THERAPY documented as of this encounter Miscellaneous Notes * Telephone Encounter - Ermelinda Roger PA - 05/30/2021 10:52 AM DIRECTOR OF RESPIRATORY THERAPY Started on baclofen on Wednesday taking 5mg TID, she is tolerating. Going to increase to 10mg TID CTOR OF RESPIRATORY THERAPY * Telephone Encounter - Jadyn Gómez - 05/30/2021 9:55 AM CST Pt called she is taking Baclosen for muscle spasms,not working. Please call CTOR OF RESPIRATORY THERAPY documented in this encounter Plan of Treatment Upcoming Encounters Date Type Department Care Team (Late st Contact Info) Description 08/24/2024 11:00 AM CDT Video Visit [facility] Physical [facility] [id number] [place] [phone] Be Rangel, [address] [place] [address] documented as of this encounter Visit Diagnoses Not on filedocumented in this encounter Care Teams Field Contact Technician Relationship Specialty Start Date End Date Huang Alonso MD [address] [place] [address] PCP - General Family Practice 10/03/13 05/06/22 documented as of this encounter
--- OUTSIDE RECORDS SUMMARY | 2024-04-13 08:42 | XMS_ITS | Encounter Summary ---
Author Organization [facility] Address [address] Pablo: [place] [address] Care Team Providers Care Car Repossessor Name Role Phone Huang Alonso MD Primary Care Provider [phone] Encounter Details Date Type Department Care Team (Latest Contact Info) Description 01/28/2022 Travel Social History Tobacco Use Types Packs/Day [...] Med and Rehab - [facility] [address] [place] [address] [place] [address] [place] [address] documented as of this encounter Visit Diagnoses Not on filedocumented in this encounter Care Teams Car Repossessor Relationship Specialty Start Date End Date Huang Alonso MD [address] [place] [address] PCP - General Family Practice 10/03/13 05/06/22 documented as of this encounter
--- OUTSIDE RECORDS SUMMARY | 2024-04-13 08:42 | XMS_ITS | Encounter Summary ---
Author Organization [facility] Address [address] [place] [address] Care Team Providers Care Cause Analyst Name Role Phone Huang Alonso MD Primary Care Provider [phone] Encounter Details Date Type Department Care Team (Late st Contact Info) Description 04/29/2021 Abstract [facility] Physical Med and Re[facility] [address] [place] [address] [place] [address] [place] [address] Social History Tobacco Use Types [...] Med and Rehab - [facility] [address] [place] [address] [place] [address] [place] [address] documented as of this encounter Visit Diagnoses Not on filedocumented in this encounter Care Teams Cause Analyst Relationship Specialty Start Date End Date Huang Alonso MD [address] [place] [address] PCP - General Family Practice 10/03/13 05/06/22 documented as of this encounter
--- OUTSIDE RECORDS SUMMARY | 2024-04-13 08:42 | XMS_ITS | Encounter Summary ---
Author Organization [facility] Address [address] [place] [address] Care Team Providers Care Needle Maker Name Role Phone Huang Alonso MD Primary Care Provider [phone] Reason for Visit * Reason Comments Follow Up Encounter Details Date Type Department Care Team (Late st Contact Info) Description 11/10/2021 11:30 AM CDT Video Visit [facility] Physical Med and Rehab - Re[facility] [address] [place] [address] [place] [address] [place] [address] Brown-Sequard syndrome (Primary Dx) Social [...] Progress Notes * Be Rangel DO - 11/10/2021 11:30 AM CDT Physical Medicine and Rehabilitation [...] yes Patient: Hailee Tanner Date of visit: 11/10/2021 Date of last visit: 08/11/21 Chief complaint: Doing all right Subjective: The patient presents for outpatient follow up. she was last seen on 08/11. At the time of that visit,she was doing well with her spasticity medications. She was taking baclofen 10 mg 3 times a day and20 mg at night. She also added CBD oil and she felt it was making significant improvement. She was having bladder spasms and bladder discomfort. We spoke about utilizing cranberry pills to help with her bladder spasms Since that time she has been doing better and better all the time. She is still doing therapies, twice a week. She engages in a home exercise program. She did get a UA collected and was placed on antibiotics. Her bladder spasms and bladder issues resolved. As far as her spasticity goes, she still says she feels tight throughout the day and her knees and hips/groin. She feels that if her legs were not as tight she could do better with her therapy. She also has occasional severe episodes of spasticity at nighttime. Sometimes it is severe and lasts for hours on end. Last night was a bad night, she thinks it may be related to the coffee she had later in the evening. She does not normally drink coffee and it is unusual for her to drink coffee that late in the day. She is also happy to report that the swelling in her feet has greatly improved and sheis able to don shoes. Review of Systems Constitutional: Negative. Gastrointestinal: Negative. Genitourinary: Negative. Musculoskeletal: Negative for falls. Muscle tightness Neurological: Positive for focal weakness. Spasticity Psychiatric/Behavioral: Negative. Social History: Living by herself Medications reviewed. Current Outpatient Medications: ??? baclofen (LIORESAL) 10 mg tablet, Take 2 Tablets (20 mg) by mouth 4 times daily., Disp: 720 Tablet, Rfl: 1 ??? diazePAM (VALIUM) 5 mg tablet, Take 1 Tablet (5 mg) by mouth nightly as needed for Spasm., Disp: 30 Tablet, Rfl: 0 ??? [DISCONTINUED] baclofen (LIORESAL) 10 mg tablet, Take 1 Tablet (10 mg) by mouth daily after breakfast AND 1 Tablet (10 mg) daily after lunch AND 1 Tablet (10 mg) daily with supper AND 2 Tablets (20 mg) daily at bedtime., Disp: 150 Tablet, Rfl: 3 ??? bisacodyl (THE MAGIC BULLET) 10 [...] breakfast., Disp: 30 Tablet, Rfl: 0 ??? traZODone (DESYREL) 50 [...] and incomplete paraparesis??. she presents today to continue outpatient rehabilitation care. Orders Placed This Encounter ??? baclofen (LIORESAL) 10 mg tablet ??? diazePAM (VALIUM) 5 mg tablet 1. Spinal cord injury: She is doing very well overall. Continue with therapies for now. We are hoping to optimize her medications to address her spasticity to allow her more freedom of movement. 2. Spasticity: increasing baclofen to 20 mg BID. Adding valium HS PRN Follow up: in 2 months Issues to address at follow-up: Overall function, spasticity Total time spent: 20 minutes. Greater than 50% was spent counseling and coordination of care. Electronically signed by: Be Rangel DO Physical Medicine and Rehabilitation [phone] ATTESTATION STATEMENTS Portions of this note were transcribed using [email or web address] speaking computerized voice recognition without a human yeast culture operator. This report may or may not have been adjusted for typographical, grammatical and syntax errors or malapropisms. documented in this encounter Plan of Treatment Upcoming Encounters Date Type Department Care Team (Late st Contact Info) Description 08/24/2024 11:00 AM CDT Video Visit 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
--- OUTSIDE RECORDS SUMMARY | 2024-04-13 08:42 | XMS_ITS | Encounter Summary ---
Author Organization [facility] Address [address] [place] [address] Care Team Providers Care Physician Credentialing Specialist Name Role Phone Huang Alonso MD Primary Care Provider [phone] Encounter Details Date Type Department Care Team (Late Contact Info) Description 11/11/2021 Abstract [facility] Physical Med and Rehab - Rehab Hosp Clinic [address] [place] [address] [place] [address] [place] [address] Social History Tobacco Use Types [...] Med and Rehab - Re[facility] [id number] [place] [address] Be Rangel, [address] [place] [address] documented as of this encounter Visit Diagnoses Not on filedocumented in this encounter Care Teams Physician Credentialing Specialist Relationship Specialty Start Date End Date Huang Alonso MD [address] [place] [address] PCP - General Family Practice 10/03/13 05/06/22 documented as of this encounter
--- OUTSIDE RECORDS SUMMARY | 2024-04-13 08:42 | XMS_ITS | Encounter Summary ---
Author Organization [facility] Address [address] [place] [address] Care Team Providers Care Fashion Consultant Selling Name Role Phone Huang Alonso MD Primary Care Provider [phone]- [phone] Encounter Details Date Type Department Care Team (Late st Contact Info) Description 08/25/2021 Orders Only [facility] Neurosurgery - [facility] [address] [place] [address] Naresh Larios MD [address] [address] [address] -x0 (Work) Postoperative follow-up (Primary Dx) Social History Tobacco Use Types [...] Physical Med and Rehab - Rehab Hosp [address] [phone] [place] [address] [place] [address] documented as of this encounter [...] apices are grossly clear. Procedure Note Gabo Hernandez DO - 09/24/2021 XR CERVICAL SPINE 2 [...] 4 Naresh Larios MD DIAGNOSTIC IMAGING O NATALIA[facility]ALEVI documented in this encounter Visit Diagnoses Diagnosis Postoperative follow-up- Primary Follow-up examination, following unspecified surgery Postoperative follow-up Follow-up examination, following unspecified surgery documented in this encounter Care Teams Fashion Consultant Selling Relationship Specialty Start Date End Date Huang Alonso MD [address] [place] [address] PCP - General Family Practice 10/03/13 05/06/22 documented as of this encounter
--- OUTSIDE RECORDS SUMMARY | 2024-04-13 08:42 | XMS_ITS | Encounter Summary ---
Author Organization [facility] Address [address] [place] [address] Care Team Providers Care Product Introduction Manager Name Role Phone Huang Alonso MD Primary Care Provider [phone] Reason for Visit * Reason Comments Follow Up Encounter Details Date Type Department Care Team (Late st Contact Info) Description 08/11/2021 11:30 AM CDT Video Visit [facility] Physical Med and Rehab - Re[facility] Hosp Clinic [address] [place] [address] [place] [address] [place] [address] Cervical spondylosis with radiculopathy (Primary Dx); Brown-Sequard syndrome Social History Tobacco Use Types [...] Progress Notes * Be Rangel DO - 08/11/2021 11:30 AM CDT Physical Medicine and Rehabilitation [...] yes Patient: Hailee Tanner Date of visit: 08/11/2021 Date of last visit: 07/30/21 Chief complaint: Today is a good day Subjective: The patient presents for outpatient follow up. she was last seen on 07/30. At the time of that visit, she was out of the rehab hospital and dealing with significant spasms. We discussed her spasticitymedication, recommending 10 mg of baclofen in the morning, early afternoon, evening with 20 mg at bedtime. We also spoke about doing her bowel routine a little more regularly and pursuing urinalysis to check for UTI. Since that time she reports the changes made to her spasticity medications have been doing very well. Again, she was taking baclofen 10 mg 3 times a day with 20 mg at night. We also spoke about utilizing OTC CBD oil. She added CBD oil to her spasticity regimen twice a day. She says this has made a significant difference as well. She had been sleeping very well at nights as the spasticity has beenthe worst at night. She was doing well until last Wednesday when she overdid it with therapies. As result, she had increased spasms at night for Wednesday night, night, Wednesday night, and Wednesday night. Last night, her spasticity was greatly improved and she is hopeful that he will continue as it was before last Wednesday. She is hopeful overall that she will have better controlled spasticity. She is still having bladder spasms and bladder discomfort. Review of Systems Constitutional: Negative. Gastrointestinal: Negative. Genitourinary: Positive for dysuria and frequency. Neurological: Spasticity Social History: Living by herself Medications reviewed. [...] this encounter. 1. Spinal cord injury: Doing quite well overall. Her most recent biggest limitation was due to spasticity. 2. Spasticity: Improved with the adjustments made to her baclofen dosing. She is better able to tolerate the 10/10/10/20 milligram dosing of the baclofen throughout the day. She also added [id number] CBD oil with good results. She did overdo it last week and therapies and recognizes that overexertion with therapy would increase her nighttime spasticity. 3. Bladder: We spoke about trialing [id number]-[id number] cranberry pills to help with bladder irritation. Follow up: in 3 month(s) Issues to address at follow-up: Overall function, spasticity Total time spent: 20 minutes. Greater than 50% was spent counseling and coordination of care. Electronically signed by: Be Rangel, DO Physical Medicine and Rehabilitation [phone] ATTESTATION STATEMENTS Portions of this note were transcribed using [employer] speaking computerized voice recognition without a human circus roustabout. This report may or may not have been adjusted for typographical, grammatical and syntax errors or malapropisms. documented in this encounter Plan of Treatment Upcoming Encounters Date Type Department Care Team (Late st Contact Info) Description 08/24/2024 11:00 AM CDT Video Visit [facility] Physical Med and Rehab - Rehab Hosp Clinic [address] [place] [address] [place] [address] [place] [address] documented as of this encounter Visit Diagnoses Diagnosis Cervical spondylosis with radiculopathy- Primary Cervical spondylosis with myelopathy Brown-Sequard syndrome Other specified paralytic syndrome documented in this encounter Care Teams Product Introduction Manager Relationship Specialty Start Date End Date Huang Alonso MD [address] [place] [address] PCP - General Family Practice 10/03/13 05/06/22 documented as of this encounter
--- OUTSIDE RECORDS SUMMARY | 2024-04-13 08:42 | XMS_ITS | Encounter Summary ---
Author Organization [facility] Address [address] Pablo: [place] [address] Care Team Providers Care Child And Youth Program Assistant Name Role Phone Huang Alonso MD Primary Care Provider [phone] Encounter Details Date Type Department Care Team (Latest Contact Info) Description 07/30/2021 Travel Social History Tobacco Use Types Packs/Day [...] Med and Rehab - Rehab Hosp Clinic [address] [place] [address] [place] [address] [place] [address] documented as of this encounter Visit Diagnoses Not on filedocumented in this encounter Care Teams Child And Youth Program Assistant Relationship Specialty Start Date End Date Huang Alonso MD [address] [place] [address] PCP - General Family Practice 10/03/13 05/06/22 documented as of this encounter
--- OUTSIDE RECORDS SUMMARY | 2024-04-13 08:42 | XMS_ITS | Encounter Summary ---
Author Organization [facility] Address [address] [place] [address] Care Team Providers Care Bottle Labeler Name Role Phone Huang Alonso MD Primary Care Provider [phone] Reason for Visit * Reason Onset Date Comments Medication Question 06/27/2021 Encounter Details Date Type Department Care Team (Late st Contact Info) Description 06/27/2021 Telephone [facility] Neurosurgery - Medical [place] [address] [facility] [address] [facility] [place] [address] Nusrat Nickerson PA [address] [facility] [address] [facility] [place] [address] Medication Question Social History Tobacco Use Types [...] COVID-19? No / Unsure 05/28/2021 1:15 PM OXYGEN PLANT OPERATOR documented as of this encounter Miscellaneous Notes * Telephone Encounter - Nusart Nickerson PA - 06/27/2021 12:15 PM CDT I spoke to her, I told her it is best to increase the dosage slowly versus taking this more frequently. Patient states her symptoms seem to be worse at night so I suggested she could try taking 2 tablets for total 20 mg at bedtime but still stick with 10 mg during the daytime hours. She will give this a try and see if it works, I told her it may take a couple evenings to see any improvement. Themain reason she is taking this is due to excruciating groin pain that she believes is stemming fromher hip flexor after the therapist was massaging that region. All questions answered she is instructed to call if her symptoms do not improve with the change in baclofen. * Telephone Encounter - Nusrat Nickerson PA - 06/27/2021 12:06 PM CDT ----- Message from Hailee Tanner sent at 06/26/2021 1:43 PM CDT ----- Regarding: baclofen I having worse spasticity/spasm in my back to groin area on the left side. I was wondering if increasing my baclofen would help with that. documented in this encounter Plan of Treatment Upcoming Encounters Date Type Department Care Team (Late st Contact Info) Description 08/24/2024 11:00 AM CDT Video Visit [facility] Physical Med and Rehab - Rehab Hosp [facility] [address] [place] [address] [place] [address] [place] [address] documented as of this encounter Visit Diagnoses Not on filedocumented in this encounter Care Teams Bottle Labeler Relationship Specialty Start Date End Date Huang Alonso MD [address] [place] [address] PCP - General Family Practice 10/03/13 05/06/22 documented as of this encounter
--- OUTSIDE RECORDS SUMMARY | 2024-04-13 08:42 | XMS_ITS | Encounter Summary ---
Author Organization [facility] Address [address] [place] [address] Care Team Providers Care Technical Operations Specialist Name Role Phone Huang Alonso MD Primary Care Provider [phone] Reason for Visit * Reason Comments Post-op Visit To discuss x-ray res ults for two level ACDF and thoracic laminectomy on 03/13/2021. Encounter Details Date Type Department Care Team (Latest Contact Info) Description 05/28/2021 1:45 PM AUTOMATIC DRY STARCH OPERATOR Office Visit [facility] Neurosurgery - [facility] [address] [address] Naresh Larios MD [address] [facility] [address] [facility] [place] [address] -x0 (Work) Postoperative follow-up (Primary Dx); Thoracic spondylosis with cord compression; Cervical spondylosis with radiculopathy; Spinal cord injury of thoracic region without bone injury, subsequent encounter Social History Tobacco Use Types Packs/Day [...] COVID-19? No / Unsure 05/28/2021 1:15 PM AUTOMATIC DRY STARCH OPERATOR documented as of this encounter Last Filed Vital Signs Vital Sign Reading Time Taken Comments Blood Pressure 104/71 05/28/2021 1:48 PM AUTOMATIC DRY STARCH OPERATOR Pulse 102 05/28/2021 1:48 PM AUTOMATIC DRY STARCH OPERATOR Temperature 36.7 ??C (98.1 ??F) 05/28/2021 1:48 PM CS T Respiratory Rate - - Oxygen Saturation - - Inhaled Oxygen Concentration - - Weight 82.6 kg (182 lb) 05/28/2021 1:48 PM AUTOMATIC DRY STARCH OPERATOR Height 160 cm (5' 3 ) 05/28/2021 1:48 PM AUTOMATIC DRY STARCH OPERATOR Body Mass Index 32.24 05/28/2021 1:48 PM AUTOMATIC DRY STARCH OPERATOR documented in this encounter Progress Notes * Naresh Larios MD - 05/28/2021 3:04 PM CST [facility] Postoperative Visit Patient Name: Hailee Tanner : 1955 Date of Service: 05/28/2021 Subjective: Chief Complaint: Chief Complaint Patient presents with ??? Post-op Visit To discuss x-ray results for two level ACDF and thoracic laminectomy on 03/13/2021. History of Present Illness: Hailee is a 66 y.o. female who presents for a postoperative visit following Cervical Discectomy Fusion 2 Level Anterior and Thoracic Laminectomy on 03/13/2021. 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 She recovered at [facility] for 3 weeks and then at SNF for 3 weeks. She is now recovering at her daughter's home and doing outpt PT 3x/week as she is not safe enough to stay at home by herself. She is using a wheelchair today but that she then can get up and walk a little bit with a walker athome. Her main complaint is that she gets severe spasms that make her feel like she is going to collapse if she gets it while she is standing. She also gets extreme cold sensation but then feels likeher legs are burning. She has bowel and bladder function Social History Tobacco Use ??? Smoking status: Former Smoker Packs/day: 0.50 Years: 5.00 Pack years: 2.50 Types: Cigarettes Quit date: 1980 Years since quittin.1 ??? Smokeless tobacco: Never Used Substance Use Topics ??? Alcohol use: Never TOBACCO COUNSELING She is not a tobacco user. Objective: Physical Exam: BP 104/71 (BP Location: Left arm, Patient Position (BP): Sitting, BP Cuff Size: Large Adult) Pulse (!) 102 Temp 98.1 ??F (36.7 ??C) (Temporal) Ht 5' 3 (1.6 m) Wt 82.6 kg (182 lb) BMI 32.24kg/m?? Normal BMI Range: 18 & older: > or = 18.5 and < 25 Body mass index is 32.24 kg/m??. Constitutional: Appears well, no distress, well nourished Skin: Incision well-healed Neurological Exam: Neurologic Exam Mental Status Oriented to person, place, and time. Speech: speech is normal Level of consciousness: alert Motor Exam Overall muscle tone: normal Strength Right iliopsoas: 3/5 Left iliopsoas: 2/5 Right quadriceps: 4/5 Left quadriceps: 3/5 Right hamstrin/5 Left hamstrin/5 Right anterior tibial: 4/5 Left anterior tibial: 2/5 Right gastroc: 4/5 Left gastroc: 2/5BUE 5/5 throughout Sensory Exam Light touch normal. Pinprick sensation intact bialteral LE with some scattered non dermatomal reductions Gait, Coordination, and Reflexes Gait Gait: normal Imaging Studies: Cervical xrays show stable instrumentation and alignment Assessment and Plan: ICD-10-CM ICD-9-CM 1. Postoperative follow-up Z09 V67.00 2. Thoracic spondylosis with cord compression M47.14 721.41 3. Cervical spondylosis with radiculopathy M47.22 721.0 4. Spinal cord injury of thoracic region without bone injury, subsequent encounter S24.109D V58.89 952.10 Plan: Discussed with patient that I think she might benefit from baclofen as opposed to taking the tizanidine as she cannot tolerate the tizanidine except for at night because it makes her sleepy. We will stop the tizanidine and start her on baclofen 5 mg 3 times daily. Instructed her to call back if shefeels like she needs a higher dose especially may be at night we might put her on 10 mg that her nighttime dose. Continue the gabapentin as she has been taking it. 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 She seems to have had significant improvements since her postoperative state and in the last month and a half since she has been in rehab.I am encouraged by this and hope that she continues to improve. Patient is very discouraged that she is not walking but after discussion of the nature of an incomplete spinal cord injury she verbalized understanding. We encouraged her to continue with therapies and hopefully given time she will regain more strength to become more independent. Follow up: 6-8 weeks to check on progress This patient was seen jointly by Naresh Larios MD and Ermelinda Roger PA-C. This dictation was completed using [employer]. Decating Machine Operator variances may occur. 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
--- OUTSIDE RECORDS SUMMARY | 2024-04-13 08:42 | XMS_ITS | Encounter Summary ---
Author Organization [facility] Address [address] [place] [address] Care Team Providers Care Sporting Goods Sales Associate Name Role Phone Huang Alonso MD Primary Care Provider [phone] Encounter Details Date Type Department Care Team (Late Contact Info) Description 12/09/2021 Abstract [facility] Neurosurgery - [facility] [address] [address] Naresh Larios MD [address] [place] [address] -x0 (Work) Social History [...] Med and Rehab - Rehab Hosp [address] [address] Be Rangel, [address] [place] [address] documented as of this encounter Visit Diagnoses Not on filedocumented in this encounter Care Teams Sporting Goods Sales Associate Relationship Specialty Start Date End Date Huang Alonso MD [address] [place] [address] PCP - General Family Practice 10/03/13 05/06/22 documented as of this encounter
--- OUTSIDE RECORDS SUMMARY | 2024-04-13 08:42 | XMS_ITS | Encounter Summary ---
Author Organization [facility] Address [address] [place] [address] Care Team Providers Care Fire And Explosion Investigator Name Role Phone Huang Alonso MD Primary Care Provider [phone]- [phone] Encounter Details Date Type Department Care Team (Late st Contact Info) Description 05/07/2021 Orders Only [facility] Neurosurgery - [facility] [address] [place] [address] Naresh Larios MD [address] [facility] [address] [address] -x0 (Work) Social History Tobacco [...] Med and Rehab - [facility] [address] [place] [address] [place] [address] [place] [address] documented as of this encounter Visit Diagnoses Not on filedocumented in this encounter Care Teams Fire And Explosion Investigator Relationship Specialty Start Date End Date Huang Alonso MD [address] [place] [address] PCP - General Family Practice 10/03/13 05/06/22 documented as of this encounter
--- OUTSIDE RECORDS SUMMARY | 2024-04-13 08:42 | XMS_ITS | Encounter Summary ---
Author Organization [facility] Address [address] [place] [address] Care Team Providers Care Laborer Construction Or Leak Gang Name Role Phone Huang Alonso MD Primary Care Provider [phone] Reason for Visit * Reason Comments Follow Up 3 month follow up. Encounter Details Date Type Department Care Team (Latest Contact Info) Description 01/28/2022 1:15 PM CDT Office Visit [facility] Neurosurgery - [facility] [address] [address] Naresh Larios MD [address] [facility] [place] [address]x0 (Work) Postoperative follow-up (Primary Dx) Social History Tobacco Use Types Packs/Day Years Used Date Smoking Tobacco: Former Cigarettes 0.5 5 1 739 - 4346 Smokeless Tobacco: Never Alcohol Use Standard Drinks/Week [...] 01/28/2022 12:58 PM C DT Respiratory Rate - - Oxygen Saturation - - Inhaled Oxygen Concentration - - Weight 86.2 kg (190 lb) 01/28/2022 12:58 PM CDT Height 161.3 cm (5' 3.5 ) 01/28/2022 12:58 PM CD T Body Mass Index 33.13 01/28/2022 12:58 PM CDT documented in this encounter Progress Notes * Naresh Larios MD - 01/28/2022 2:43 PM CDT [facility] Neurosurgery Clinic Follow Up Patient Name: Hailee Tanner : 1955 Date of Service: 01/28/2022 Assessment and Plan: ICD-10-CM ICD-9-CM 1. Postoperative follow-up Z09 V67.00 Impression: Symptomatically somewhat improved although she still frustrated by her neurologic injury. Her spasms are less on the current regimen of baclofen and Valium and gabapentin Plan: Ordered her a walker and wide-based four-point cane. Also resubmitted her permanent handicap parking permit Follow up: 6 months Subjective: Chief Complaint Patient presents with Follow Up 3 month follow up. History of Present Illness: Hailee is a 66 y.o. 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 Patient's been seeing Dr. Quintanilla is been making some adjustments to her medication and she says that the medication adjustments specifically the addition of Valium has helped with her spasm. She still gets some pain in her left groin when she initially stands but this goes away after couple attempts of getting up and moving. It is still frustrating for her and she is somewhat despondent over her slow progress. Patient Active Problem List Diagnosis Code Neck pain M54.2 Cervical spondylosis with radiculopathy M47.22 Cord compression G95.20 Neurological deficit present R29.818 Hyponatremia E87.1 Brown-Sequard syndrome G83.81 Urinary retention R33.9 HTN (hypertension) I10 GERD (gastroesophageal reflux disease) K21.9 Arthritis M19.90 Past Medical History: Diagnosis Date Arthritis GERD (gastroesophageal reflux disease) Difficulty taking NSAIDs. HTN (hypertension) Post-operative nausea and vomiting Past Surgical History: Procedure Laterality Date ENDOSCOPY, UPPER GI HX ANTERIOR CERVICAL DISCECTOMY W/ FUSION N/A 03/13/2021 CERVICAL DISCECTOMY FUSION 2 LEVEL ANTERIOR performed by Naresh Larios MD at [facility] HX SECTION x 2 HX COLONOSCOPY HX HYSTERECTOMY HX MENISCECTOMY Right N/A MS FORREST W/O FACETEC FORAMOT/[facility] 04/13 VRT SEG, THORACIC N/A 03/13/2021 THORACIC LAMINECTOMY performed by Naresh Larios MD at [facility] OR [facility] Social History Tobacco Use Smoking status: Former Packs/day: 0.50 Years: 5.00 Pack years: 2.50 Types: Cigarettes Quit date: 1979 Years since quittin.8 Smokeless tobacco: Never Substance Use Topics Alcohol use: Never TOBACCO COUNSELING She is not a tobacco user. Allergies Allergen Reactions Codeine Nausea and Vomiting Oxycodone Nausea and Vomiting Current Outpatient Medications on File Prior to Visit Medication Sig Dispense Refill gabapentin (NEURONTIN) 300 mg capsule Take 1 Capsule (300 mg) by mouth every 8 hours. 90 Capsule 3 diazePAM (VALIUM) 5 mg tablet Take 1 Tablet (5 mg) by mouth nightly as needed for Spasm. 30 Tablet 0 baclofen (LIORESAL) 10 mg tablet Take 2 Tablets (20 mg) by mouth 4 times daily. 720 Tablet 1 pantoprazole (PROTONIX) 40 mg Tablet, Delayed Release (E.C.) Take 1 Tablet (40 mg) by mouth daily before breakfast. 30 Tablet 0 traZODone (DESYREL) 50 mg tablet Take 1 Tablet (50 mg) by mouth daily at bedtime. 30 Tablet 0 No current facility-administered medications on file prior to visit. Review of Systems: Review of Systems Musculoskeletal: Negative for back pain and neck pain. Neurological: Positive for tremors, sensory change and weakness. Negative for tingling, focal weakness and headaches. Pain in the left groin and initiation of movement Objective: Physical Exam: BP 136/89 (BP Location: Left arm, Patient Position (BP): Sitting, BP Cuff Size: Large Adult) Pulse 76 Temp 98.1 ??F (36.7 ??C) (Temporal) Ht 5' 3.5 (1.613 m) Wt 86.2 kg (190 lb) BMI 33.13 kg/m?? Normal BMI Range: 18 & older: > or = 18.5 and < 25 Body mass index is 33.13 kg/m??. Constitutional: Appears well, no distress, well-nourished, well-developed Cardiovascular: Regular rate and rhythm, no swelling or edema Respiratory: Even/unlabored Musculoskeletal: See neuro exam Skin: No rash, Psychiatric: Appropriate to circumstances Neurological Exam: Neurologic [...] tibial: 4/5 Left posterior tibial: 4/5 Right peroneal: 4/5 Left peroneal: 4/5 Right gastroc: 4/5 Left gastroc: 4/5 Sensory Exam Light touch normal. Gait, Coordination, and Reflexes Gait Gait: wide-basedWalks with the aid of a wheeled walker Labs: CALCIUM Date/Time Value Ref Range Status 07/16/2021 11:52 AM 9.2 8.6 - 10.4 mg/dL Final No results found for: [id number] No results for input(s): WBC, HGB, HCT, PLT, NA, INR in the last 72 hours. I Naresh Larios MD documented in this encounter Plan of Treatment Upcoming Encounters Date Type Department Care Team (Late st Contact Info) Description 08/24/2024 11:00 AM CDT Video Visit [facility] Physical Med and Rehab - Rehab Hosp Clinic [address] [place] [address] [place] [address] [place] [address] documented as of this encounter Visit Diagnoses Diagnosis Postoperative follow-up- Primary Follow-up examination, following unspecified surgery documented in this encounter Care Teams Laborer Construction Or Leak Gang Relationship Specialty Start Date End Date Huang Alonso MD [address] [place] [address] PCP - General Family Practice 10/03/13 05/06/22 documented as of this encounter
--- OUTSIDE RECORDS SUMMARY | 2024-04-13 08:42 | XMS_ITS | Encounter Summary ---
Author Organization [facility] Address [address] [place] [address] Care Team Providers Care Health Club Attendant Name Role Phone Huang Alonso MD Primary Care Provider [phone]- [phone] Encounter Details Date Type Department Care Team (Late Contact Info) Description 02/16/2022 Abstract [facility] Neurosurgery - [facility] [address] [address] Naresh Larios MD [address] [place] [address]x0 (Work) Social History Tobacco [...] Physical Med and Rehab - Rehab Hosp [address] [address] [place] Rangel, [address] [place] [address] documented as of this encounter Visit Diagnoses Not on filedocumented in this encounter Care Teams Health Club Attendant Relationship Specialty Start Date End Date Huang Alonso MD [address] [place] [address] PCP - General Family Practice 10/03/13 05/06/22 documented as of this encounter
--- OUTSIDE RECORDS SUMMARY | 2024-04-13 08:42 | XMS_ITS | Encounter Summary ---
Author Organization [facility] Address [address] [place] [address] Care Team Providers Care Technology Solutions Architect Name Role Phone Huang Alonso MD Primary Care Provider [phone]- [phone] Encounter Details Date Type Department Care Team (Late Contact Info) Description 08/20/2021 Abstract [facility] Neurosurgery - [facility] [address] [address] Naresh Larios MD [address] [place] [address]x0 (Work) Social History Tobacco [...] AM CDT Video Visit [facility] Physical Med and Rehab - Rehab Hosp [address] [address] [place] Rangel, [address] [place] [address] documented as of this encounter Visit Diagnoses Not on filedocumented in this encounter Care Teams Technology Solutions Architect Relationship Specialty Start Date End Date Huang Alonso MD [address] [address] PCP - General Family Practice 10/03/13 05/06/22 documented as of this encounter
--- OUTSIDE RECORDS SUMMARY | 2024-04-13 08:42 | XMS_ITS | Encounter Summary ---
Author Organization [facility] Address [address] [place] [address] Care Team Providers Care Ditching Machine Operating Engineer Name Role Phone Huang Alonso MD Primary Care Provider [phone] Reason for Visit * Reason Onset Date Comments Medication Refill 07/21/2021 Encounter Details Date Type Department Care Team (Late Contact Info) Description 07/21/2021 Refill [facility] Neurosurgery - [facility] [address] [facility] [address] [place] [address] Ermelinda Roger PA [address] [facility] [address] [address] Social History Tobacco Use Types [...] Physical Med and Rehab - Rehab Hosp [facility] [address] [place] [address] [place] [address] [place] [address] documented as of this encounter Visit Diagnoses Not on filedocumented in this encounter Care Teams Ditching Machine Operating Engineer Relationship Specialty Start Date End Date Huang Alonso MD [address] [place] [address] PCP - General Family Practice 10/03/13 05/06/22 documented as of this encounter
--- OUTSIDE RECORDS SUMMARY | 2024-04-13 08:43 | XMS_ITS | Encounter Summary ---
Author Organization [facility] Address [address] [place] [address] Care Team Providers Care Torts Law Professor Name Role Phone Huang Alonso MD Primary Care Provider [phone] Reason for Referral * Home Health (Routine) - Closed Specialty Diagnoses / Procedures Referred By Contac t Referred To Contact Home Health Diagnoses Cervical spondylosis [place] [address] [place] [address] Referral ID Status Reason Start Date Expiration Date Visits Re quested Visits Authorized [id number] Closed 04/08/2021 04/08/2022 1 1 MMAKING SUPERVISOR Encounter Details Date Type Department Care Team (Latest Contact Info) Description 03/27/2021 10:45 PM BROOMMAKING SUPERVISOR - 04/18/2021 1:49 PM BROOMMAKING SUPERVISOR Hospital Encounter [facility] [address] [place] [address] [place] [address] [place] [address] Brown-Sequard syndrome Discharge Disposition: Long Term Fac(SNF) with Medicare Certification in Anticipation of Skilled Care Social History Tobacco Use Types Packs/Day [...] COVID-19? No / Unsure 03/27/2021 10:59 PM BROOMMAKING SUPERVISOR documented as of this encounter Last Filed Vital Signs Vital Sign Reading Time Taken Comments Blood Pressure 141/76 04/18/2021 12:00 PM BROOMMAKING SUPERVISOR Pulse 81 04/18/2021 5:05 AM BROOMMAKING SUPERVISOR Temperature 36.9 ??C (98.4 ??F) 04/18/2021 5:05 AM CS T Respiratory Rate 16 04/18/2021 5:05 AM BROOMMAKING SUPERVISOR Oxygen Saturation 95% 04/18/2021 5:05 AM BROOMMAKING SUPERVISOR Inhaled Oxygen Concentration - - Weight 90.7 kg (200 lb) 04/13/2021 8:42 PM BROOMMAKING SUPERVISOR Height 160 cm (5' 3 ) 04/13/2021 8:42 PM BROOMMAKING SUPERVISOR Body Mass Index 35.43 04/13/2021 8:42 PM BROOMMAKING SUPERVISOR documented in this encounter Discharge Summaries * Seferino Wilcox MD - 04/18/2021 9:40 AM CST Images from the original note were not included. Discharge Summary Vick Siegel 66 y.o. female 1955 CSN: [id number] Date of Admission: 03/27/2021 Date of Discharge: 04/18/2021 Discharging Physician: Seferino Wilcox MD LOS: 22 days PCP: Huang Alonso MD Discharge Diagnoses and Relevant Hospital Course: Chief Complaint: Paraparesis ?? HPI: No new symptoms today. She has decided to go to a shelter facility to buy more time before going home since her caregivers now have COVID ?? Exam: BP 126/74 (BP Location: Right arm, Patient Position (BP): Supine) Pulse 81 Temp 98.4 ??F (36.9??C) (Oral) Resp 16 Ht 5' 3 (1.6 m) Wt 90.7 kg (200 lb) SpO2 95% BMI 35.43 kg/m?? Heart: Regular rate and rhythm Lungs: Clear to auscultation bilaterally Abdomen: Soft, with normal bowel sounds Extremities: Unchanged ?? Assessment/Plan: ?? 1. Current level of function -at her last physical therapy session, she required supervision to moderate assistance for various aspects of bed mobility and transfers. She required moderate assistancefor car transfer. At her last occupational therapy session, she continued to focus on upper extremity strengthening exercises 2. Progress towards rehabilitation goals and modifications to course of treatment -she is making slow steady progress in therapy however due to lack of assistance at home she has chosen to utilize the services of a shelter facility to continue to make slow steady progress before going home 3. Barriers to DC: Patient apprehension, family apprehension, the need to be modified independent, rehabilitation education, caregiver availability, limited resources, weakness 4. 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 Bladder -she was having too much incontinence and chose to have the Clemons placed in and will follow-up with her PCP 6. Bowel -she does a bowel routine every night 7. Bacteria in urine-Macrobid until the 8. Orthostatic hypotension -midodrine, Florinef -internal medicine following closely 9. Hyponatremia -resolved. Salt tablets stopped 10. DVT prophylaxis with Lovenox ?? Discharge medication reconciliation performed by Dr. Rangel Discharge medications and new prescriptions: Medication List START taking these medications bisacodyl 10 mg Suppository rectal suppository Commonly known as: THE MAGIC BULLET Insert 1 Suppository (10 mg) by rectum daily. Signed by: Dr. Be Rangel, DO Quantity: 30 Suppository Refills: 11 Indications of Use: With bowel routine fludrocortisone 0.1 mg tablet Commonly known as: FLORINEF Take 2 Tablets (0.2 mg) by mouth daily. Signed by: Dr. Be Rangel, DO Quantity: 60 Tablet Refills: 0 midodrine 10 mg Tablet Commonly known as: PROAMATINE Take 1 Tablet (10 mg) by mouth 2 times daily. Signed by: Dr. Be Rangel, DO Quantity: 60 Tablet Refills: 0 nitrofurantoin 100 mg capsule Commonly known as: MACROBID Take 1 Capsule (100 mg) by mouth 2 times daily with meals for 5 days. Signed by: Dr. Be Rangel DO Quantity: 10 Capsule Refills: 0 polyethylene glycol 17 gram Powder in Packet Commonly known as: MIRALAX Take 1 Packet (17 Grams) by mouth daily. Signed by: Dr. Be Rangel DO Quantity: 30 Each Refills: 0 CHANGE how you take these medications pantoprazole 40 mg Tablet, Delayed Release (E.C.) Commonly known as: PROTONIX What changed: when to take this Take 1 Tablet (40 mg) by mouth daily before breakfast. Signed by: Dr. Be Rangel DO Quantity: 30 Tablet Refills: 0 traZODone 50 mg tablet Commonly known as: DESYREL What changed: ?? medication strength ?? how much to take ?? when to take this ?? reasons to take this Take 1 Tablet (50 mg) by mouth daily at bedtime. Signed by: Dr. Be Rangel DO Quantity: 30 Tablet Refills: 0 CONTINUE taking these medications docusate sodium 100 mg capsule Commonly known as: COLACE Take 1 Capsule (100 mg) by mouth 2 times daily. Signed by: Dr. Katherin Patton MD Refills: 0 gabapentin 100 mg capsule Commonly known as: NEURONTIN Take 2 Capsules (200 mg) by mouth every 8 hours. Signed by: Dr. Be Rangel DO Quantity: 180 Capsule Refills: 0 tamoxifen 20 mg tablet Commonly known as: NOLVADEX Take 1 Tablet by mouth daily. Refills: 0 tiZANidine 4 mg Tablet Commonly known as: ZANAFLEX Take 1 Tablet (4 mg) by mouth every 6 hours as needed for Spasm. Signed by: Dr. Be Rangel DO Quantity: 75 Tablet Refills: 0 zolpidem 5 mg tablet Commonly known as: AMBIEN Take 1 Tablet (5 mg) by mouth nightly as needed for Insomnia. Signed by: Dr. Katherin Patton MD Refills: 0 STOP taking these medications fluticasone propionate 50 mcg/spray [place], Suspension nasal inhaler Commonly known as: FLONASE lisinopril-hydroCHLOROthiazide 20-12.5 mg tablet Commonly known as: ZESTORETIC sodium chloride 1 gram tablet traMADoL 50 mg tablet Commonly known as: ULTRAM Where to Get Your Medications These medications were sent to [id number] - [place], [place] - [address] AT [place] [address], [place] [address] ?? bisacodyl 10 mg Suppository rectal suppository ?? fludrocortisone 0.1 mg tablet ?? gabapentin 100 mg capsule ?? midodrine 10 mg Tablet ?? nitrofurantoin 100 mg capsule ?? pantoprazole 40 mg Tablet, Delayed Release (E.C.) ?? polyethylene glycol 17 gram Powder in Packet ?? tiZANidine 4 mg Tablet ?? traZODone 50 mg tablet What's Next What's Next ? Follow up with Dr. Huang Alonso MD [address] [place] [address] ? Follow up with Dr. Katherin Patton MD [address] [address] x0 ? Follow up with [facility] ([id number]) [address] [place] [address] Your Vitals Were Most recent update: 04/18/2021 ??5:12 AM BP 126/74 (BP Location: Right arm, Patient Position (BP): Supine) Pulse 81 Temp 98.4 ??F (36.9 ??C) (Oral) Resp 16 Height 5' 3 Weight 200 lb SpO2 95% BMI 35.43 kg/m?? Current Immunizations Name Date (PFIZER) (12 YR UP) COVID-19 VACCINE - EMERGENCY USE AUTHORIZATION, MRNA,[id number](PF) 30 MCG/0.3 MLIM SUSP 02/14/2021 , 06/16/2020 , 05/25/2020 You are allergic to the following You are allergic to the following Allergen Reactions Codeine Nausea and Vomiting Oxycodone Nausea and Vomiting Discharge Instructions ?? FUTURE TESTS/PROCEDURES: Follow up with: Huang Alonso MD in 1 week or as otherwise directed Dr Patton from neurosurgery at [facility] in 1 week or as otherwise directed Rehab clinic with Dr. Rangel in 2 weeks or as otherwise directed ?? Post Discharge Safety Recommendations No driving any vehicle until cleared by physician No tobacco use Always wear your seat belt Always wear a helmet when you are on moving transportation(bike, motorcycle, ATV, horse) and your head is exposed ? Diet: DIET GENERAL Effective Now ?? ONGOING WOUND CARE: 1. Cleanse skin gently with mild skin cleanser. Pat dry or air dry. 2. Apply a thin layer of Calmoseptine to reddened or irritated skin 2-4 times daily, or after each incontinent episode to promote comfort, and long lasting protection. (If a residue remains on irritated skin after gentle cleansing, it is recommended to leave the residue on the skin and apply an additional layer as needed until the skin is healed.) Easily removed with mineral oil AKA adhesive remover; when necessary ? CONTINUED THERAPY and/or HALFWAY CARE: ? Physical Therapy Occupational Therapy DURABLE MEDICAL EQUIPMENT : ?? Your prescriptions for medical equipment have been sent to [facility].?? If there are problems please contact them. [phone] ?? - Hospital bed Commode ?? Your equipment was provided to you prior to discharge. ?? Patient ordered bariatric drop arm commode. Recommend a tub transfer bench for tub/shower transferswith slideboard ?? Activity Status:? Transfers:?? Minimal Assist and with gait belt and slideboard ? Upper body dressing: Independent ? Lower body dressing: Modified [place] ? Bath:?? Stand by Assist ?? Patient should NOT do any standing or walking without a therapist present at this time. Recommend caregiver to be present for all slideboard transfers, bathing, and bowel routine when balance is challenged (ex: leaning in shower/for bowel routine) ?? [facility] Phone: ??[phone]? FAX:?? [phone] ?? [facility] Driver/Guide: ??Lorin Clemente RN Phone:?? [phone] Signed: Seferino Wilcox MD 04/18/2021, 9:40 AM 80 MMAKING SUPERVISOR documented in this encounter Discharge Instructions * Discharge Instructions* Kami Apple RN - 04/18/2021 12:52 PM BROOMMAKING SUPERVISOR FUTURE TESTS/PROCEDURES: Follow up with: Huang Alonso MD in 1 week or as otherwise directed Dr Patton from neurosurgery at [facility] in 1 week or as otherwise directed Rehab clinic with Dr. Rangel in 2 weeks or as otherwise directed Post Discharge Safety Recommendations No driving any vehicle until cleared by physician No tobacco use Always wear your seat belt Always wear a helmet when you are on moving transportation(bike, motorcycle, ATV, horse) and your head is exposed Diet: DIET GENERAL Effective Now ONGOING WOUND CARE: 1. Cleanse skin gently with mild skin cleanser. Pat dry or air dry. 2. Apply a thin layer of Calmoseptine to reddened or irritated skin 2-4 times daily, or after each incontinent episode to promote comfort, and long lasting protection. (If a residue remains on irritated skin after gentle cleansing, it is recommended to leave the residue on the skin and apply an additional layer as needed until the skin is healed.) Easily removed with mineral oil AKA adhesive remover; when necessary CONTINUED THERAPY and/or HALFWAY CARE: Physical Therapy Occupational Therapy DURABLE MEDICAL EQUIPMENT : Your prescriptions for medical equipment have been sent to [facility]. If there are problems please contact them. [phone] - Hospital bed Commode Your equipment was provided to you prior to discharge. Patient ordered bariatric drop arm commode. Recommend a tub transfer bench for tub/shower transferswith slideboard Activity Status: Transfers: Minimal Assist and with gait belt and slideboard Upper body dressing: Independent Lower body dressing: Modified [place] Bath: Stand by Assist Patient should NOT do any standing or walking without a therapist present at this time. Recommend caregiver to be present for all slideboard transfers, bathing, and bowel routine when balance is challenged (ex: leaning in shower/for bowel routine) [facility] FAX: [phone] [facility] Driver/Guide: Lorin Clemente RN SNF DISCHARGE ADDITIONAL INFORMATION Facility Name: [facility] Room #210 Report Rehabilitation Gas Plumbing Inspector: Brittany Ronquillo LCSW Code Status: Full Code Special Needs: {R special needs:66624} Isolation: Urinary Status: Urinary Signs/Symptoms: fullness (04/14/21 0730) Urine Characteristics: orange (04/16/211999) Voiding Characteristics: urinary device present (04/17/212029) Bowel Status Last Bowel Movement (mm/dd/yyyy): 04/17/21 (04/17/212029) HELP TEXT Flowsheet data - This SmartLink gives one or more specific piece(s) of flowsheet data. Usage - FLOW[FlowsheetRecordIDs:Time:HideLabel:MyData:Disciplines:FiledOnly This SmartLink has the following user-entered parameters: 1. FlowsheetRecordIDs - (Required) A comma- list of the flowsheet row/group IDs you want to see data for. 2. Time - Determines which time column to find data from. You may enter LAST for the last filed data, FIRST to see the first filed data, or a specific time such as 0700 entered in 24-hour format. Entering a specific time will show both filed and pended values regardless of what the FiledOnly parameter is set to. The default value is LAST . 3. HideLabel - Determines whether or not row labels are displayed. Leave this parameter blank or set it to 0 to display the row labels. Set this parameter to anything other than 0 to hide the labels. This parameter is ignored if a flowsheet group ID or more than one flowsheet row ID is listed in the first user-entered parameter. 4. MyData - Determines whose data is pulled in. Set this parameter to 1 to pull in data from providers that have the same discipline as the current user. Enter 2 to pull in only the current user's documentation. Parameter 4 and 5 are cumulative, so data appears if it meets a condition in eitherparameter. However, if parameter 4 is set to 0 or left blank and the current user's discipline isnot one specified in parameter 5, the current user's data is excluded. 5. Disciplines - A comma- list of provider discipline record IDs. Only pulls in data documented by the providers with disciplines listed in this parameter. 6. FiledOnly - Determines whether or not pended data is displayed. Set this parameter to 1 if youwish to hide pended data. If parameter 2 is set to a fixed time, pended data is included regardlessof this setting. Examples: .FLOW[1 outputs the entry from flowsheet group 1. .FLOW[5:LAST outputs the latest entry for flowsheet row 5. .FLOW[5:FIRST outputs the earliest entry for flowsheet row 5. .FLOW[5,6:0800 outputs the flowsheet entries for rows 5 and 6 at 8 AM. .FLOW[5::1 outputs the flowsheet entry for row 5 without a label and linebreak. .FLOW[5:LAST::1 outputs the latest entry for row 5 from a provider with the same discipline as you. .FLOW[5:FIRST::2 outputs the earliest entry for row 5 from the current user. .FLOW[5:LAST:::1 outputs the latest entry for row 5 from a provider with a discipline of 1. .FLOW[5:FIRST::1:1 outputs the earliest flowsheet entry for row 5 from any provider with the discipline of the current user or any provider with a discipline of 1. .FLOW[1:::::1 outputs the last filed entry from flowsheet group 1. Stool Color: brown (04/17/212029) Signs/Symptoms: stool pattern regular (04/15/21 0811) Transportation: {TRANSPORTATION:[id number]:: private vehicle } Attending Physician Signature: Date Time____ MMAKING SUPERVISOR documented in this encounter Medications at Time of Discharge Medication Sig Dispensed Refills Start Date End Date pantoprazole (PROTONIX) 40 mg Tablet, Delayed Release (E.C.) Take 1 Tablet (40 mg) by mouth daily before breakfast. 30 Tablet 04/17/2021 traZODone (DESYREL) 50 mg tablet Take 1 Tablet (50 mg) by mouth daily at bedtime. 30 Tablet 04/16/2021 nitrofurantoin (MACROBID) 100 mg capsule Take 1 Capsule (100 mg) by mouth 2 times daily with meals for 5 days. 10 Capsule 04/16/2021 04/21/2021 gabapentin (NEURONTIN) 100 mg capsule Take 2 Capsules (200 mg) by mouth every 8 hours. 180 Capsule 04/16/2021 12/24/2021 documented as of this encounter Progress Notes * Kami Apple RN - 04/18/2021 1:52 PM CST End of shift note: Received bedside report and assumed care of Pt at 0645. Neuro/Psych: A/Ox4 Resp/CV: Respirations even and regular, no s/sx SOB or dyspnea noted GI/: Clemons in place and draining well. BR followed Skin/Wound: Skin remains warm, dry, and intact. No significant changes Pain: Pain well controlled with current regimen of PRN medications General: pt left via stretcher van with EMS, report called and given to micheal. Fall precautions maintained with call light and personal items in reach and bed low with wheels locked. Alarms activated, will continue to monitor and report to oncoming nurse. MMAKING SUPERVISOR * Reggie Johnson MD - 04/18/2021 11:27 AM CST Images from the original note were not included. Internal Medicine/Rehabilitation Service Patient: Vick Siegel Date of : 1955 Admission Date: (03/27/2021) Vitals With Comments 04/18/2021 0505 04/17/2021 1939 04/17/2021 1645 04/17/2021 0355 BP: 126/74 161/89 155/90 132/74 Pulse: 81 87 80 79 Resp: 16 16 18 18 Temp: 98.4 ??F (36.9 ??C) 98.5 ??F (36.9 ??C) 98.2 ??F (36.8 ??C) 98.2 ??F (36.8 ??C) Temp src: Oral Oral Oral Oral SpO2: 95 % 96 % 96 % 94 % DIET GENERAL Effective Now Full Code Timeline (including subjective): 04/18/2021- Patient seen resting in her room. ??She is excited and stable for the DC process. ??Meds, labs and vital signs reviewed. ??Patient seen the importance follow-up with her primary care provider and specialist after discharge. ??Disposition per PMR . 04/17/21- Patient seen resting in her room. She states she had a rough morning during her shower. She was feeling somewhat dizzy. Will speak with therapist. Patient states her ramp is being built this afternoon for her home. Ongoing antibiotic for UTI. Continue medical supervision at this time. 04/16/21- Patient seen participating in therapies. She states she is doing okay today. Clemons catheter was replaced due to incontinence and unsuccessful voiding trial. Patient currently has UTI and isbeing treated with Macrobid. She continues to have neck and head pain but overall doing okay. Patient is still awaiting her appeal decision. Continue medical supervision. 04/15/21- Patient seen and examined in a.m. rounds. She was very incontinent last night. We discussed the importance of toileting every 2 hours while awake. Patient also has a UTI with ongoing antibiotics. This may be attributing to some of the incontinence. We discussed the importance of proper pericare to prevent skin breakdown and infection. Urine culture and sensitivities reviewed; ongoing macrobid. Labs reviewed; stable. Potassium supplementation offered. Sodium acceptable without supplementation. Patient is awaiting her appeal decision. Continue to provide medical supervision. 04/14/2021- Patient seen resting in her room. She states she is tired from therapies. She is on performance day today. She states she is going to appeal and hopes to stay longer. Ongoing voiding trial in which it is successful at this time. However, repeat UA does + UTI with e coli. We will start an a ntibiotic today and follow the culture and sensitivities. Ongoing sleep hygiene. Awaiting labs for review. 04/13/2021 - Am rounds completed. Doing well. Pain management ongoing. Clinically improving. Medications labs vitals reviewed - no new neurological or respiratory complaints. Acute inpatient rehab process ongoing with medical supervision. Vitals reviewed with patient and serial labs are ongoing. Med review and titration ongoing. Continue to review nutrition. Continue med review. Avoid hypotension. Follow input and output. No adverse events reported to me. Medical supervision ongoing. 04/12/21 - Am rounds completed- Covid precautions ongoing. Multiple medical issues as noted surrounding patient and internal medical oversight ongoing. Active med titration ongoing No new cardiopulmonary events overnight. Airway remains protected. No new adverse focal neurological deficits reportedor found on exam. Participating in therapies. Meds labs and vitals reviewed. Avoid hypotension. Serial labs ongoing. Titrate meds as dictated by clinical course. Feels well. Wants to do independent exercises. No new pain. Avoid hypotension. 04/11/21- Patient seen participating in therapies. She states she is doing okay. She had a headacheovernight into her neck. Fioricet is providing relief. Repeat UA is negative and UTI has resolved. Salt tablets on hold and will repeat labs on Wednesday. 04/10/21- Patient seen participating in therapies. She states she is doing very well today. She continues to make progress in therapies and she is very motivated to succeed. Macrobid course completed; will repeat UA. Patient would like to trial off sodium chloride tablets. Will allow for this through the and repeat lab work Wednesday morning. Patient understands and agrees with this plan. Midodrine timing adjusted and blood pressure has remained stable. 04/09/21- Patient seen resting in her room. She states she is doing okay. Macrobid to end tomorrow.Will repeat UA after abx completion. Will adjust midodrine dosing. We will continue 10 mg at 0500 and 12:00. Patient's BP is spiking at night not requiring the midodrine. Patient is in agreement withthis plan. Labs reviewed; stable. Sodium stable at 139 though she has been receiving 2gm TID. Will decrease to 1gm BID. 04/08/21- Patient seen resting in her room. Her blood pressure is elevated at this time. Sodium to be held. Labs to be repeated in the morning. Midodrine was adjusted as she is very orthostatic with therapies. Ongoing daily adjustments. We will continue to have conversations with her daily. OngoingMacrobid for UTI. 04/07/21- Patient seen resting in her room. She states she is doing okay. She did not sleep well last night from being woken up to turn. We discussed sleep hygiene. Patient is able to move on her own. She understands when to prevent bedsores. Will order sleep hygiene moving forward. Ongoing Macrobid for positive UTI. No other complaints. 04/04/21- Patient seen resting in her room. She states she is a little tired as she just completed some therapy. She states she is doing well overall. Macrobid started yesterday for UTI. We will continue to follow culture and sensitivities and make changes as needed. Patient is still not sleeping despite melatonin. Will discontinue and start trazodone. Patient has taken trazodone at home in the past. 04/03/2021- Patient seen resting in her room. She states she cannot sleep well. Melatonin was increased and scheduled for tonight. Will follow. UA reviewed and there is a likelihood of an infection. Will start Macrobid today and follow culture and sensitivities. Patient is appreciative and understands this plan. 04/02/21- Patient seen resting in her room. She is upset as she only has a few weeks of therapy left. She is very motivated to succeed and her goal is to walk out of here . Though she understands this may not be realistic. Continue to encourage and support her. She slept much better with the melatonin last night. Ongoing pain management. Patient felt that her urine was odorous. Will obtain a UA. 04/01/21- Patient seen resting in her room. She states she is doing okay. She states the ice to hershoulder blades helped tremendously. Continue ice as needed for comfort. Will add Melatonin to sleep regimen tonight. Continue to encourage p.o. intake. BP was elevated and her Midodrine was held this morning. However, patient states she was still slightly dizzy with therapy. Her pulse was also elevated. Increased blood pressure may be related to pain as well. Will adjust Midodrine. 03/31/21- Patient seen resting in her room. She states she is doing well. She is slightly discouraged because she wants to heal faster than she is. Continue to encourage and provide emotional support. Incision is healing nicely. Lidocaine patches are not providing relief for her neck muscles. Will discontinue and offer BenGay cream. Ongoing orthostatic hypotension. Intake and output is decent. Will review midodrine. 03/29/21- A.m. labs completed. Patient able to take a shower. Clemons catheter placed in an effort torest bladder. Good urine output. Pain in anterior neck and middle back scribed as tightness. No adverse neurologic changes. Continue inpatient rehab process cord injury. 03/28/21- Initiate rehab. Full medication reconciliation has occurred. Meds, labs, and vitals reviewed. VSS. 03/27/2021 - Admission to [facility] - (Admission Data below) Assessment and Plan: Present on Admission: Debility-Rehab ??? Brown-Sequard syndrome- Flexeril, Gabapentin, Zanaflex ??? Neck pain ??? Cervical spondylosis with radiculopathy ??? Cord compression ??? HTN (hypertension) ??? GERD (gastroesophageal reflux disease) ??? Arthritis ??? Hyponatremia ??? Urinary retention ??? Neurological deficit present DVT PRX: Enoxaparin, SCDS Electrolyte derangement-Bind and Replenish Anemia-Follow H/H. Transfuse when clinically indicated Pain Control- titration throughout acute inpatient rehab process Nausea-Zofran prn Constipation-Bowel Regimen, follow output daily Polypharmacy-Follow. Medications fully reconciled Vitamin deficiency-Supplement Nursing Instructions: Incentive spirometry, I/O's, Vitals every 8 hours, Nutrition and ADLs Record Review: moderate Old medical records, labs, preadmission screening, previous radiology studies. Nutritional support and Blood sugar management - encourage adequate diet, caloric intake, fluid balance Avoid hypoglycemia Medication Profile: Allergies Allergen Reactions ??? Codeine Nausea and Vomiting ??? Oxycodone Nausea and Vomiting Scheduled Medication Profile: Facility-Administered Medications as of 04/18/2021 Medication Dose Frequency Provider Last Rate Last Admin ??? [COMPLETED] potassium chloride (KLOR-CON) SR tablet 40 mEq 40 mEq BID WITH meals Yuliet Gomez NP 40 mEq at 04/16/21 0843 ??? [COMPLETED] phenazopyridine tablet 190 mg 190 mg TID AFTER meals Be Rangel, DO 190 mg at 04/16/21 1711 ??? nitrofurantoin (MACROBID) capsule 100 mg 100 mg BID WITH meals Yuliet Gomez, INFRASTRUCTURE ARCHITECT 100 mg at 04/18/21 0838 ??? midodrine (PROAMATINE) tablet 10 mg 10 mg BID Yuliet Gomez, INFRASTRUCTURE ARCHITECT 10 mg at 04/18/21 0507 ??? [Held by Provider] sodium chloride tablet 1 Gram 1 Gram BID WITH meals Yuliet Gomez, INFRASTRUCTURE ARCHITECT 1 Gram at 04/10/21 0806 ??? traZODone (DESYREL) tablet 50 mg 50 mg daily BEDTIME Yuliet Gomez, INFRASTRUCTURE ARCHITECT 50 mg at 04/17/21 2141 ??? oyfkbczzxp-rudlzysqikkmc-tdsvjgdg (FIORICET) 50-325-40 mg per tablet 1 Tablet 1 Tablet every 6 hours PRN Be Rangel DO 1 Tablet at 04/18/21 0153 ??? [COMPLETED] nitrofurantoin (MACROBID) capsule 100 mg 100 mg BID WITH meals Yuliet Gomez, INFRASTRUCTURE ARCHITECT 100 mg at 04/10/21 0806 ??? tiZANidine (ZANAFLEX) tablet 4 mg 4 mg every 6 hours PRN Be Rangel, DO 4 mg at 04/16/21 2209 ??? acetaminophen (TYLENOL) tablet 650 mg 650 mg every 4 hours PRN Be Rangel, DO 650 mg at 04/16/21 1235 ??? methyl salicylate-menthol (BENGAY) topical cream every 6 hours PRN Yuliet Gomez, INFRASTRUCTURE ARCHITECT Given at 04/13/21 2100 ??? bisacodyl (THE MAGIC BULLET) rectal suppository 10 mg 10 mg daily Be Rangel DO 10 mg at 04/17/21 1900 ??? gabapentin (NEURONTIN) capsule 200 mg 200 mg every 8 hours Yuliet Gomez, INFRASTRUCTURE ARCHITECT 200 mg at 04/18/21 0507 ??? docusate sodium (COLACE) capsule 100 mg 100 mg BID Yuliet Gomez, INFRASTRUCTURE ARCHITECT 100 mg at 04/18/21 0838 ??? pantoprazole (PROTONIX) tablet 40 mg 40 mg daily BEFORE breakfast Yuliet Gomez NP 40 mg at 04/18/21 0507 ??? polyethylene glycol (MIRALAX) packet 17 Gram 17 Gram daily Yuliet Gomez NP 17 Gram at 04/18/21 0838 ??? fludrocortisone (FLORINEF) tablet 0.2 mg 0.2 mg daily Yuliet Gomez NP 0.2 mg at 04/18/21 0838 ??? naloxone (NARCAN) 0.4 mg/mL injection 0.1 mg 0.1 mg see admin instructions Yuliet Gomez NP ??? ondansetron (ZOFRAN ODT) tablet 4 mg 4 mg every 6 hours PRN Yuliet Gomez NP 4 mg at 04/08/21 1813 ??? prochlorperazine maleate (COMPAZINE) tablet 10 mg 10 mg every 6 hours PRN Yuliet Gomez NP ??? bisacodyL (DULCOLAX) delayed release tablet 5 mg 5 mg daily PRN Yuliet Gomez NP ??? calcium as carbonate (TUMS) 500 mg (200 mg elemental) chewable tablet 200 mg 200 mg every 4 hours PRN Yuliet Gomez NP ??? enoxaparin (LOVENOX) injection 40 mg 40 mg every 24 hours Yuliet Gomez NP 40 mg at 04/17/21 2140 Admission Data : 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 female who recently has been admitted to [facility] for comprehensive rehabilitation - multiple complex medical issues will impact medical management throughout the acute inpatient rehabilitation process. Pt has a significant medical history including but not limited to arthritis, GERD, and HTN. [facility] with c/o posterior headaches, neck pain, and R arm pain. She reported the pain as aching sharp pressure which has been ongoing for 3 months. She noted it is primarily located at the back of her neck, radiating into her posterior neck and off the R side into her shoulder and deltoid. Pt also reported numbness in 1st-3rd fingers on theright when sleeping, as well as intermittent sensation of both feet. Cervical MRI showed disc osteophyte at C4-5 on the right side causing severe neural foraminal stenosis as well as significant discbulge osteophyte on the left at C5-6, as well as mild cord compression at C4-5. There was also large disc herniation at T8 2-3 causing cord compression and T2 signal increase. Pt brought to OR and und erwent ACDF at C4/5 and C5/6 as well as posterior decompression/laminectomy at T2-[address] Patton. Pt tolerated procedure well. MRI and CT showed large calcified disc herniation at T2-3 unchanged, overall edema in cord at T2-3 slightly smaller than preop but seems brighter, correlating with BrownSequard syndrome. Myelogram on 03/17 did not show any significant residual or persistent cord compression. Pt experienced good return of function on right and some return of function on left. On Lovenox for dvt prx, can be fully AC. Pt began working with and tolerating therapy and has been deemed medically safe and appropriate for comprehensive rehab. PMR MD to have formal referral placed. Past Medical History: Diagnosis Date ??? Arthritis ??? GERD (gastroesophageal reflux disease) Difficulty taking NSAIDs. ??? HTN (hypertension) ??? Post-operative nausea and vomiting Past Surgical History: Procedure Laterality Date ??? ENDOSCOPY, UPPER GI ??? HX ANTERIOR CERVICAL DISCECTOMY W/ FUSION N/A 03/13/2021 CERVICAL DISCECTOMY FUSION 2 LEVEL ANTERIOR performed by Katherin Patton MD at [facility] OR [facility] ??? HX SECTION x 2 ??? HX COLONOSCOPY ??? HX HYSTERECTOMY ??? HX MENISCECTOMY Right N/A ??? MD FORREST W/O FACETEC FORAMOT/[facility] 04/13 VRT SEG, THORACIC N/A 03/13/2021 THORACIC LAMINECTOMY performed by Katherin Patton MD at [facility] Family History Problem Relation Name Age of Onset ??? Lung Cancer Father ??? Kidney Cancer Father ??? Hypertension Father ??? Other Father Tobacco Use ??? Cervical Cancer Mother ??? Hypertension Mother ??? Other Mother Tobacco Use ??? Breast Cancer Sister ??? Hypertension Sister ??? Hypertension Brother ??? Other Brother Tobacco Use ??? Stroke Maternal Grandmother ??? Other Maternal Grandfather Tobacco Use ??? Other Paternal Grandmother Tobacco Use ??? Lung Cancer Paternal Grandfather ??? Other Paternal Grandfather Tobacco Use ??? Breast Cancer Other Aunt Social History Tobacco Use ??? Smoking status: Former Smoker Packs/day: 0.50 Years: 5.00 Pack years: 2.50 Types: Cigarettes Quit date: 1980 Years since quittin.0 ??? Smokeless tobacco: Never Used Vaping Use ??? Vaping Use: Never used Substance Use Topics ??? Alcohol use: Never ??? Drug use: Never reports that she quit smoking about 42 years ago. Her smoking use included cigarettes. She has a 2.50 pack-year smoking history. She has never used smokeless tobacco. She reports that she does not drink alcohol and does not use drugs. Review of Systems: No new fever or chills, worsening cough or colds, chest pain No new abdominal pain, heat or cold intolerance weakness Objective Data: Vitals With Comments 04/18/2021 0505 04/17/2021 1939 04/17/2021 1645 04/17/2021 0355 BP: 126/74 161/89 155/90 132/74 Pulse: 81 87 80 79 Resp: 16 16 18 18 Temp: 98.4 ??F (36.9 ??C) 98.5 ??F (36.9 ??C) 98.2 ??F (36.8 ??C) 98.2 ??F (36.8 ??C) Temp src: Oral Oral Oral Oral SpO2: 95 % 96 % 96 % 94 % 04/18 07 - 04/18 1859 In: 240 [P.O.:240] Out: - General alert, awake, no cardiopulmonary distress, weakness Lungs Decreased breath sounds at bases- Heart regular rate and rhythm Abdomen soft, non-tender, with bowel sounds Extremities pulses noted, no cyanosis CBC result (most recent): Lab Results Component Value Date/Time WBC 4.0 04/14/2021 04:06 AM HGB 9.9 (L) 04/14/2021 04:06 AM HGBPOC 11.5 (L) 03/13/2021 02:58 PM HCT 32.8 (L) 04/14/2021 04:06 AM PLT 227 04/14/2021 04:06 AM MCV 96.8 04/14/2021 04:06 AM BMP result (most recent): Lab Results Component Value Date/Time NA 142 04/14/2021 04:06 AM K 3.4 (L) 04/14/2021 04:06 AM CL 107 04/14/2021 04:06 AM CO2 24 04/14/2021 04:06 AM CA 8.9 04/14/2021 04:06 AM BUN 22 04/14/2021 04:06 AM CREAT 0.85 04/14/2021 04:06 AM GLUCOSE 171 (H) 04/14/2021 04:06 AM ANIONGAP 11 04/14/2021 04:06 AM CMP result (most recent): Lab Results Component Value Date/Time NA 142 04/14/2021 04:06 AM K 3.4 (L) 04/14/2021 04:06 AM CL 107 04/14/2021 04:06 AM CO2 24 04/14/2021 04:06 AM CA 8.9 04/14/2021 04:06 AM BUN 22 04/14/2021 04:06 AM CREAT 0.85 04/14/2021 04:06 AM GLUCOSE 171 (H) 04/14/2021 04:06 AM TOTALPROTEIN 5.4 (L) 04/14/2021 04:06 AM ALBUMIN 3.3 (L) 04/14/2021 04:06 AM BILITOTAL <0.2 (L) 04/14/2021 04:06 AM ALKPHOS 103 04/14/2021 04:06 AM AST 12 04/14/2021 04:06 AM ALT 15 04/14/2021 04:06 AM ANIONGAP 11 04/14/2021 04:06 AM HEPATIC function panel result (most recent): Lab Results Component Value Date/Time ALT 15 04/14/2021 04:06 AM AST 12 04/14/2021 04:06 AM ALKPHOS 103 04/14/2021 04:06 AM Hemoglobin A1C result (most recent): No results found for: HGBA1C, [id number] LIPID panel result (most recent): No results found for: CHOLTOT, HDL, LDLCALC, LDLDIRECT, TRIGLYCERIDE UA results do not (most recent): Lab Results Component Value Date/Time PHUA 8.0 04/13/2021 11:36 AM SGUR 1.010 04/13/2021 11:36 AM URINELEUKOC 3+ (A) 04/13/2021 11:36 AM NITRITEUA Positive (A) 04/13/2021 11:36 AM KETONEURINE Negative 04/13/2021 11:36 AM PROTEINUA Negative 04/13/2021 11:36 AM GLUUA Negative 04/13/2021 11:36 AM BLOODUA 1+ (A) 04/13/2021 11:36 AM WBCU >100 (A) 04/13/2021 11:36 AM RBCUA 3-5 (A) 04/13/2021 11:36 AM BACTERIAUA 2+ (A) 04/13/2021 11:36 AM UREPITHELIAL 0-5 03/28/2021 01:24 AM Results for orders placed or performed during the hospital encounter of 03/13/21 EKG 12-LEAD Narrative Stationary ECG Study [facility] Test Date: 03/17/2021 7:05 PM Pat Name: VICK SIEGEL Department: 45 Room: On License Of [facility] Gender: F Boilermaker Fitter: harlan : 1955 Requested By: KATHERIN Lindsay Order Number: [id number] Reading MD: Bhupinder Morales Measurements Intervals [place] Rate: 63 P: 53 MD: 165 QRS: 15 QRSD: 96 T: 22 QT: 433 QTc: 444 Interpretive Statements Sinus rhythm Ventricular premature complex Left atrial enlargement Low voltage, precordial leads PRWP Electronically Signed On 03-18-2021 8:08:07 BROOMMAKING SUPERVISOR by Bhupinder Morales Hospitalist Statement: The Internal Medicine team participates in patient care to directly impact the acute rehabilitationprocess. Daily rounds include discussion of I and Os, avoiding hypotension and hypoglycemia. Daily medication review completed. Ongoing efforts to coordinate care, maintain euvolemia, adequate nutrition, electrolyte management, appropriate BP management, overall stability, and management of co-morbidites individually are being dictated by clinical progress. Documentation partially completed using dictation services and EMR. Please excuse any typographicalerrors that may have occurred. FEI Titus MD Internal Medicine Director // MMAKING SUPERVISOR * Seferino Wilcox MD - 04/18/2021 6:53 AM CST Physical Medicine and Rehabilitation Progress Note Date of admission [facility]: 03/27/2021 Chief Complaint: Paraparesis HPI: No new symptoms today. She has decided to go to a shelter facility to buy more time before going home since her caregivers now have COVID Exam: BP 126/74 (BP Location: Right arm, Patient Position (BP): Supine) Pulse 81 Temp 98.4 ??F (36.9 ??C) (Oral) Resp 16 Ht 5' 3 (1.6 m) Wt 90.7 kg (200 lb) SpO2 95% BMI 35.43 kg/m?? Heart: Regular rate and rhythm Lungs: Clear to auscultation bilaterally Abdomen: Soft, with normal bowel sounds Extremities: Unchanged Assessment/Plan: 1. Current level of function -at her last physical therapy session, she required supervision to moderate assistance for various aspects of bed mobility and transfers. She required moderate assistancefor car transfer. At her last occupational therapy session, she continued to focus on upper extremity strengthening exercises 2. Progress towards rehabilitation goals and modifications to course of treatment -she is making slow steady progress in therapy however due to lack of assistance at home she has chosen to utilize the services of a shelter facility to continue to make slow steady progress before going home 3. Barriers to DC: Patient apprehension, family apprehension, the need to be modified independent, rehabilitation education, caregiver availability, limited resources, weakness 4. 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 Bladder -she was having too much incontinence and chose to have the Clemons placed in and will follow-up with her PCP 6. Bowel -she does a bowel routine every night 7. Bacteria in urine-Macrobid until the 8. Orthostatic hypotension -midodrine, Florinef -internal medicine following closely 9. Hyponatremia -resolved. Salt tablets stopped 10. DVT prophylaxis with Lovenox Seferino Wilcox MD ATTESTATION STATEMENTS This note was transcribed using [employer] speaking computerized voice recognition without a human social insurance analyst. This report may or may not have been adjusted for typographical, grammaticaland syntax errors N * Kezia Flores RN - 04/18/2021 5:19 AM CST Patient is being discharged 04/18. A&Ox4 Pain: head and neck, controlled with Fioricet and ice pack : clemons GI: bowel routine, LBM 04/17 Skin: no known issues Patient experienced routine day during this 12-hour shift of this nurse. Exhibiting baseline functioning, activity, & interaction with nursing. Medication administration as documented in MAR. Patient has had no falls at this time and is fall risk level/color yellow Interventions in Place: [x] Bed Alarm [] Clip Chair Alarm [x] Call Light within reach, return demo by patient completed [] Handoff patient when returning him/her to room [x] Wheelchair/Walker out of reach [] Low Bed [] Mats in Place [x] Fall Risk Magnet on Door [x] Fall Risk Magnet on Schedule Board [x] Fall Risk Armband on Patient [] Sitter [] Other If patient is red fall risk, patient will not be left alone in bathroom. Kezia Flores RN N * Seferino Wilcox MD - 04/17/2021 1:38 PM CST Physical Medicine and Rehabilitation Progress Note Date of admission [facility]: 03/27/2021 Chief Complaint: Paraparesis HPI: She denies any new symptoms to me but she is worried about discharge and who will help her at home. She has not noted any new issues or symptoms today. She does occasionally get some lower bloodpressure readings with shower or therapy ROS: She denies fever or any difficulty breathing. She states that she has a Clemons catheter with a plan to follow-up with her primary care doctor Exam: BP 132/74 (BP Location: Right arm, Patient Position (BP): Supine) Pulse 79 Temp 98.2 ??F (36.8 ??C) (Oral) Resp 18 Ht 5' 3 (1.6 m) Wt 90.7 kg (200 lb) SpO2 94% BMI 35.43 kg/m?? Heart: Regular rate and rhythm Lungs: Clear to auscultation bilaterally Abdomen: Soft, with normal bowel sounds Extremities: Unchanged Assessment/Plan: 1. Current level of function -see team conference on 04/15 2. Progress towards rehabilitation goals and modifications to course of treatment -see prior notes.Patient will need some assistance at home. confectionery laboratory manager is providing her with options for ict help desk technician if for some reason her family will not be able to provide the minimal assistance as she needs 3. Barriers to DC: Patient apprehension, family apprehension, the need to be modified independent, rehabilitation education, caregiver availability, limited resources, weakness 4. Etiologic diagnosis -Paraparesis -therapy continues to work with her and will continue outside of the hospital 5. Bladder -she was having too much incontinence and chose to have the Clemons placed in and will follow-up with her PCP 6. Bowel -she does a bowel routine every night 7. Bacteria in urine-Macrobid until the 8. Orthostatic hypotension -midodrine, Florinef -internal medicine continues to review 9. Hyponatremia -resolved. Salt tablets stopped 10. DVT prophylaxis with Lovenox Seferino Wilcox MD ATTESTATION STATEMENTS This note was transcribed using [employer] speaking computerized voice recognition without a human social insurance analyst. This report may or may not have been adjusted for typographical, grammaticaland syntax errors MMAKING SUPERVISOR * Reggie Johnson MD - 04/17/2021 10:18 AM CST Images from the original note were not included. Internal Medicine/Rehabilitation Service Patient: Vick Siegel Date of : 1955 Admission Date: (03/27/2021) Vitals With Comments 04/17/2021 0355 04/16/2021 2209 04/16/2021 1944 04/16/2021 1439 BP: 132/74 144/80 139/76 160/85 Pulse: 79 87 93 67 Resp: 18 -- 18 18 Temp: 98.2 ??F (36.8 ??C) -- 98.9 ??F (37.2 ??C) 97.9 ??F (36.6 ??C) Temp src: Oral -- Oral Oral SpO2: 94 % -- 92 % 95 % DIET GENERAL Effective Now Full Code Timeline (including subjective): 04/17/21- Patient seen resting in her room. She states she had a rough morning during her shower. She was feeling somewhat dizzy. Will speak with therapist. Patient states her ramp is being built this afternoon for her home. Ongoing antibiotic for UTI. Continue medical supervision at this time. 04/16/21- Patient seen participating in therapies. She states she is doing okay today. Clemons catheter was replaced due to incontinence and unsuccessful voiding trial. Patient currently has UTI and isbeing treated with Macrobid. She continues to have neck and head pain but overall doing okay. Patient is still awaiting her appeal decision. Continue medical supervision. 04/15/21- Patient seen and examined in a.m. rounds. She was very incontinent last night. We discussed the importance of toileting every 2 hours while awake. Patient also has a UTI with ongoing antibiotics. This may be attributing to some of the incontinence. We discussed the importance of proper pericare to prevent skin breakdown and infection. Urine culture and sensitivities reviewed; ongoing macrobid. Labs reviewed; stable. Potassium supplementation offered. Sodium acceptable without supplementation. Patient is awaiting her appeal decision. Continue to provide medical supervision. 04/14/2021- Patient seen resting in her room. She states she is tired from therapies. She is on performance day today. She states she is going to appeal and hopes to stay longer. Ongoing voiding trial in which it is successful at this time. However, repeat UA does + UTI with e coli. We will start an a ntibiotic today and follow the culture and sensitivities. Ongoing sleep hygiene. Awaiting labs for review. 04/13/2021 - Am rounds completed. Doing well. Pain management ongoing. Clinically improving. Medications labs vitals reviewed - no new neurological or respiratory complaints. Acute inpatient rehab process ongoing with medical supervision. Vitals reviewed with patient and serial labs are ongoing. Med review and titration ongoing. Continue to review nutrition. Continue med review. Avoid hypotension. Follow input and output. No adverse events reported to me. Medical supervision ongoing. 04/12/21 - Am rounds completed- Covid precautions ongoing. Multiple medical issues as noted surrounding patient and internal medical oversight ongoing. Active med titration ongoing No new cardiopulmonary events overnight. Airway remains protected. No new adverse focal neurological deficits reportedor found on exam. Participating in therapies. Meds labs and vitals reviewed. Avoid hypotension. Serial labs ongoing. Titrate meds as dictated by clinical course. Feels well. Wants to do independent exercises. No new pain. Avoid hypotension. 04/11/21- Patient seen participating in therapies. She states she is doing okay. She had a headacheovernight into her neck. Fioricet is providing relief. Repeat UA is negative and UTI has resolved. Salt tablets on hold and will repeat labs on Wednesday. 04/10/21- Patient seen participating in therapies. She states she is doing very well today. She continues to make progress in therapies and she is very motivated to succeed. Macrobid course completed; will repeat UA. Patient would like to trial off sodium chloride tablets. Will allow for this through the and repeat lab work Wednesday morning. Patient understands and agrees with this plan. Midodrine timing adjusted and blood pressure has remained stable. 04/09/21- Patient seen resting in her room. She states she is doing okay. Macrobid to end tomorrow.Will repeat UA after abx completion. Will adjust midodrine dosing. We will continue 10 mg at 0500 and 12:00. Patient's BP is spiking at night not requiring the midodrine. Patient is in agreement withthis plan. Labs reviewed; stable. Sodium stable at 139 though she has been receiving 2gm TID. Will decrease to 1gm BID. 04/08/21- Patient seen resting in her room. Her blood pressure is elevated at this time. Sodium to be held. Labs to be repeated in the morning. Midodrine was adjusted as she is very orthostatic with therapies. Ongoing daily adjustments. We will continue to have conversations with her daily. OngoingMacrobid for UTI. 04/07/21- Patient seen resting in her room. She states she is doing okay. She did not sleep well last night from being woken up to turn. We discussed sleep hygiene. Patient is able to move on her own. She understands when to prevent bedsores. Will order sleep hygiene moving forward. Ongoing Macrobid for positive UTI. No other complaints. 04/04/21- Patient seen resting in her room. She states she is a little tired as she just completed some therapy. She states she is doing well overall. Macrobid started yesterday for UTI. We will continue to follow culture and sensitivities and make changes as needed. Patient is still not sleeping despite melatonin. Will discontinue and start trazodone. Patient has taken trazodone at home in the past. 04/03/2021- Patient seen resting in her room. She states she cannot sleep well. Melatonin was increased and scheduled for tonight. Will follow. UA reviewed and there is a likelihood of an infection. Will start Macrobid today and follow culture and sensitivities. Patient is appreciative and understands this plan. 04/02/21- Patient seen resting in her room. She is upset as she only has a few weeks of therapy left. She is very motivated to succeed and her goal is to walk out of here . Though she understands this may not be realistic. Continue to encourage and support her. She slept much better with the melatonin last night. Ongoing pain management. Patient felt that her urine was odorous. Will obtain a UA. 04/01/21- Patient seen resting in her room. She states she is doing okay. She states the ice to hershoulder blades helped tremendously. Continue ice as needed for comfort. Will add Melatonin to sleep regimen tonight. Continue to encourage p.o. intake. BP was elevated and her Midodrine was held this morning. However, patient states she was still slightly dizzy with therapy. Her pulse was also elevated. Increased blood pressure may be related to pain as well. Will adjust Midodrine. 03/31/21- Patient seen resting in her room. She states she is doing well. She is slightly discouraged because she wants to heal faster than she is. Continue to encourage and provide emotional support. Incision is healing nicely. Lidocaine patches are not providing relief for her neck muscles. Will discontinue and offer BenGay cream. Ongoing orthostatic hypotension. Intake and output is decent. Will review midodrine. 03/29/21- A.m. labs completed. Patient able to take a shower. Clemons catheter placed in an effort torest bladder. Good urine output. Pain in anterior neck and middle back scribed as tightness. No adverse neurologic changes. Continue inpatient rehab process cord injury. 03/28/21- Initiate rehab. Full medication reconciliation has occurred. Meds, labs, and vitals reviewed. VSS. 03/27/2021 - Admission to Acute Rehabilitation [facility] - (Admission Data below) Assessment and Plan: Present on Admission: Debility-Rehab Brown-Sequard syndrome- Flexeril, Gabapentin, Zanaflex Neck pain Cervical spondylosis with radiculopathy Cord compression HTN (hypertension) GERD (gastroesophageal reflux disease) Arthritis Hyponatremia Urinary retention Neurological deficit present DVT PRX: Enoxaparin, SCDS Electrolyte derangement-Bind and Replenish Anemia-Follow H/H. Transfuse when clinically indicated Pain Control- titration throughout acute inpatient rehab process Nausea-Zofran prn Constipation-Bowel Regimen, follow output daily Polypharmacy-Follow. Medications fully reconciled Vitamin deficiency-Supplement Nursing Instructions: Incentive spirometry, I/O's, Vitals every 8 hours, Nutrition and ADLs Record Review: moderate Old medical records, labs, preadmission screening, previous radiology studies. Nutritional support and Blood sugar management - encourage adequate diet, caloric intake, fluid balance Avoid hypoglycemia Medication Profile: Allergies Allergen Reactions Codeine Nausea and Vomiting Oxycodone Nausea and Vomiting Scheduled Medication Profile: Facility-Administered Medications as of 04/17/2021 Medication Dose Frequency Provider Last Rate Last Admin [COMPLETED] potassium chloride (KLOR-CON) SR tablet 40 mEq 40 mEq BID WITH meals Yuliet Gomez NP 40 mEq at 04/16/21 0843 [COMPLETED] phenazopyridine tablet 190 mg 190 mg TID AFTER meals Be Rangel DO 190 mg at04/16/21 1711 nitrofurantoin (MACROBID) capsule 100 mg 100 mg BID WITH meals Yuliet Gomez NP 100 mg at 04/17/21 0923 midodrine (PROAMATINE) tablet 10 mg 10 mg BID Yuliet Gomez NP 10 mg at 04/17/21 0527 [Held by Provider] sodium chloride tablet 1 Gram 1 Gram BID WITH meals Yuliet Gomez NP 1 Gramat 04/10/21 0806 traZODone (DESYREL) tablet 50 mg 50 mg daily BEDTIME Yuliet Gomez NP 50 mg at 04/16/212013 vggqqlqhtb-qikliqahqxgpa-ybaruuzk (FIORICET) 50-325-40 mg per tablet 1 Tablet 1 Tablet every 6 hours PRN Be Rangel DO 1 Tablet at 04/16/212208 [COMPLETED] nitrofurantoin (MACROBID) capsule 100 mg 100 mg BID WITH meals Yuliet Gomez NP 100 mg at 04/10/21 0806 tiZANidine (ZANAFLEX) tablet 4 mg 4 mg every 6 hours PRN Be Rangel DO 4 mg at 04/16/212208 acetaminophen (TYLENOL) tablet 650 mg 650 mg every 4 hours PRN Be Rangel DO 650 mg at 04/16/21 1235 methyl salicylate-menthol (BENGAY) topical cream every 6 hours PRN Yuliet Gomez NP Given at 04/13/21 2100 bisacodyl (THE MAGIC BULLET) rectal suppository 10 mg 10 mg daily Be Rangel DO 10 mg at04/14/21 194 gabapentin (NEURONTIN) capsule 200 mg 200 mg every 8 hours Yuliet Gomez NP 200 mg at 527 docusate sodium (COLACE) capsule 100 mg 100 mg BID Yuliet Gomez NP 100 mg at 04/17/21 0924 pantoprazole (PROTONIX) tablet 40 mg 40 mg daily BEFORE breakfast Yuliet Gomez NP 40 mg at 04/17/21 0527 polyethylene glycol (MIRALAX) packet 17 Gram 17 Gram daily Yuliet Gomez NP 17 Gram at 04/10/21 0805 fludrocortisone (FLORINEF) tablet 0.2 mg 0.2 mg daily Yuliet Gomez NP 0.2 mg at 04/17/21 0923 naloxone (NARCAN) 0.4 mg/mL injection 0.1 mg 0.1 mg see admin instructions Yuliet Gomez NP ondansetron (ZOFRAN ODT) tablet 4 mg 4 mg every 6 hours PRN Yuliet Gomez NP 4 mg at 04/08/21 181 prochlorperazine maleate (COMPAZINE) tablet 10 mg 10 mg every 6 hours PRN Yuliet Gomez NP bisacodyL (DULCOLAX) delayed release tablet 5 mg 5 mg daily PRN Yuliet Gomez, FEI calcium as carbonate (TUMS) 500 mg (200 mg elemental) chewable tablet 200 mg 200 mg every 4 hours PRN Yuliet Gomez NP enoxaparin (LOVENOX) injection 40 mg 40 mg every 24 hours Yuliet Gomez NP 40 mg at 04/16/212013 Admission Data : 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 female who recently has been admitted to [facility] for comprehensive rehabilitation - multiple complex medical issues will impact medical management throughout the acute inpatient rehabilitation process. Pt has a significant medical history including but not limited to arthritis, GERD, and HTN. Pt presented to [facility] on 03/13 with c/o posterior headaches, neck pain, and R arm pain. She reported the pain as aching sharp pressure which has been ongoing for 3 months. She noted it is primarily located at the back of her neck, radiating into her posterior neck and off the R side into her shoulder and deltoid. Pt also reported numbness in 1st-3rd fingers on theright when sleeping, as well as intermittent sensation of both feet. Cervical MRI showed disc osteophyte at C4-5 on the right side causing severe neural foraminal stenosis as well as significant discbulge osteophyte on the left at C5-6, as well as mild cord compression at C4-5. There was also large disc herniation at T8 2-3 causing cord compression and T2 signal increase. Pt brought to OR and und erwent ACDF at C4/5 and C5/6 as well as posterior decompression/laminectomy at T2-[address] Patton. Pt tolerated procedure well. MRI and CT showed large calcified disc herniation at T2-3 unchanged, overall edema in cord at T2-3 slightly smaller than preop but seems brighter, correlating with BrownSequard syndrome. Myelogram on 03/17 did not show any significant residual or persistent cord compression. Pt experienced good return of function on right and some return of function on left. On Lovenox for dvt prx, can be fully AC. Pt began working with and tolerating therapy and has been deemed medically safe and appropriate for comprehensive rehab. PMR MD to have formal referral placed. Past Medical History: Diagnosis Date Arthritis GERD (gastroesophageal reflux disease) Difficulty taking NSAIDs. HTN (hypertension) Post-operative nausea and vomiting Past Surgical History: Procedure Laterality Date ENDOSCOPY, UPPER GI HX ANTERIOR CERVICAL DISCECTOMY W/ FUSION N/A 03/13/2021 CERVICAL DISCECTOMY FUSION 2 LEVEL ANTERIOR performed by Katherin Patton MD at [facility] OR [facility] HX SECTION x 2 HX COLONOSCOPY HX HYSTERECTOMY HX MENISCECTOMY Right N/A MD FORREST W/O FACETEC FORAMOT/[facility] 04/13 VRT SEG, THORACIC N/A 03/13/2021 THORACIC LAMINECTOMY performed by Katherin Patton MD at [facility] OR [facility] Family History Problem Relation Name Age of Onset Lung Cancer Father Kidney Cancer Father Hypertension Father Other Father Tobacco Use Cervical Cancer Mother Hypertension Mother Other Mother Tobacco Use Breast Cancer Sister Hypertension Sister Hypertension Brother Other Brother Tobacco Use Stroke Maternal Grandmother Other Maternal Grandfather Tobacco Use Other Paternal Grandmother Tobacco Use Lung Cancer Paternal Grandfather Other Paternal Grandfather Tobacco Use Breast Cancer Other Aunt Social History Tobacco Use Smoking status: Former Smoker Packs/day: 0.50 Years: 5.00 Pack years: 2.50 Types: Cigarettes Quit date: 1979 Years since quittin.0 Smokeless tobacco: Never Used Vaping Use Vaping Use: Never used Substance Use Topics Alcohol use: Never Drug use: Never reports that she quit smoking about 42 years ago. Her smoking use included cigarettes. She has a 2.50 pack-year smoking history. She has never used smokeless tobacco. She reports that she does not drink alcohol and does not use drugs. Review of Systems: No new fever or chills, worsening cough or colds, chest pain No new abdominal pain, heat or cold intolerance weakness Objective Data: Vitals With Comments 04/17/2021 0355 04/16/2021 2209 04/16/2021 1944 04/16/2021 1439 BP: 132/74 144/80 139/76 160/85 Pulse: 79 87 93 67 Resp: 18 -- 18 18 Temp: 98.2 ??F (36.8 ??C) -- 98.9 ??F (37.2 ??C) 97.9 ??F (36.6 ??C) Temp src: Oral -- Oral Oral SpO2: 94 % -- 92 % 95 % No intake/output data recorded. General alert, awake, no cardiopulmonary distress, weakness Lungs Decreased breath sounds at bases- Heart regular rate and rhythm Abdomen soft, non-tender, with bowel sounds Extremities pulses noted, no cyanosis CBC result (most recent): Lab Results Component Value Date/Time WBC 4.0 04/14/2021 04:06 AM HGB 9.9 (L) 04/14/2021 04:06 AM HGBPOC 11.5 (L) 03/13/2021 02:58 PM HCT 32.8 (L) 04/14/2021 04:06 AM PLT 227 04/14/2021 04:06 AM MCV 96.8 04/14/2021 04:06 AM BMP result (most recent): Lab Results Component Value Date/Time NA 142 04/14/2021 04:06 AM K 3.4 (L) 04/14/2021 04:06 AM CL 107 04/14/2021 04:06 AM CO2 24 04/14/2021 04:06 AM CA 8.9 04/14/2021 04:06 AM BUN 22 04/14/2021 04:06 AM CREAT 0.85 04/14/2021 04:06 AM GLUCOSE 171 (H) 04/14/2021 04:06 AM ANIONGAP 11 04/14/2021 04:06 AM CMP result (most recent): Lab Results Component Value Date/Time NA 142 04/14/2021 04:06 AM K 3.4 (L) 04/14/2021 04:06 AM CL 107 04/14/2021 04:06 AM CO2 24 04/14/2021 04:06 AM CA 8.9 04/14/2021 04:06 AM BUN 22 04/14/2021 04:06 AM CREAT 0.85 04/14/2021 04:06 AM GLUCOSE 171 (H) 04/14/2021 04:06 AM TOTALPROTEIN 5.4 (L) 04/14/2021 04:06 AM ALBUMIN 3.3 (L) 04/14/2021 04:06 AM BILITOTAL <0.2 (L) 04/14/2021 04:06 AM ALKPHOS 103 04/14/2021 04:06 AM AST 12 04/14/2021 04:06 AM ALT 15 04/14/2021 04:06 AM ANIONGAP 11 04/14/2021 04:06 AM HEPATIC function panel result (most recent): Lab Results Component Value Date/Time ALT 15 04/14/2021 04:06 AM AST 12 04/14/2021 04:06 AM ALKPHOS 103 04/14/2021 04:06 AM Hemoglobin A1C result (most recent): No results found for: HGBA1C, [id number] LIPID panel result (most recent): No results found for: CHOLTOT, HDL, LDLCALC, LDLDIRECT, TRIGLYCERIDE UA results do not (most recent): Lab Results Component Value Date/Time PHUA 8.0 04/13/2021 11:36 AM SGUR 1.010 04/13/2021 11:36 AM URINELEUKOC 3+ (A) 04/13/2021 11:36 AM NITRITEUA Positive (A) 04/13/2021 11:36 AM KETONEURINE Negative 04/13/2021 11:36 AM PROTEINUA Negative 04/13/2021 11:36 AM GLUUA Negative 04/13/2021 11:36 AM BLOODUA 1+ (A) 04/13/2021 11:36 AM WBCU >100 (A) 04/13/2021 11:36 AM RBCUA 3-5 (A) 04/13/2021 11:36 AM BACTERIAUA 2+ (A) 04/13/2021 11:36 AM UREPITHELIAL 0-5 03/28/2021 01:24 AM Results for orders placed or performed during the hospital encounter of 03/13/21 EKG 12-LEAD Narrative Stationary ECG Study [facility] Test Date: 03/17/2021 7:05 PM Pat Name: VICK SIEGEL Department: 45 Room: On License Of [facility] 6 Gender: F 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 Daily rounds include discussion of I and Os, avoiding hypotension and hypoglycemia. Daily medication review completed. Ongoing efforts to coordinate care, maintain euvolemia, adequate nutrition, electrolyte management, appropriate BP management, overall stability, and management of co-morbidites individually are being dictated by clinical progress. Documentation partially completed using dictation services and EMR. Please excuse any typographicalerrors that may have occurred. FEI Titus MD Internal Medicine Director // MMAKING SUPERVISOR * Reggie Johnson MD - 04/16/2021 12:20 PM CST Images from the original note were not included. Internal Medicine/Rehabilitation Service Patient: Vick Siegel Date of : 1955 Admission Date: (03/27/2021) Vitals With Comments 04/16/2021 0546 04/15/2021 1942 04/15/2021 1316 04/15/2021 0543 BP: 121/76 167/89 147/84 125/75 Pulse: 76 70 80 81 Resp: 18 16 18 18 Temp: 98.9 ??F (37.2 ??C) 98.5 ??F (36.9 ??C) 98 ??F (36.7 ??C) 98.2 ??F (36.8 ??C) Temp src: Oral Oral Oral Oral SpO2: 94 % 96 % 93 % 95 % DIET GENERAL Effective Now Full Code Timeline (including subjective): 04/16/21- Patient seen participating in therapies. She states she is doing okay today. Clemons catheter was replaced due to incontinence and unsuccessful voiding trial. Patient currently has UTI and is being treated with Macrobid. She continues to have neck and head pain but overall doing okay. Patient is still awaiting her appeal decision. Continue medical supervision. 04/15/21- Patient seen and examined in a.m. rounds. She was very incontinent last night. We discussed the importance of toileting every 2 hours while awake. Patient also has a UTI with ongoing antibiotics. This may be attributing to some of the incontinence. We discussed the importance of proper pericare to prevent skin breakdown and infection. Urine culture and sensitivities reviewed; ongoing macrobid. Labs reviewed; stable. Potassium supplementation offered. Sodium acceptable without supplementation. Patient is awaiting her appeal decision. Continue to provide medical supervision. 04/14/2021- Patient seen resting in her room. She states she is tired from therapies. She is on performance day today. She states she is going to appeal and hopes to stay longer. Ongoing voiding trial in which it is successful at this time. However, repeat UA does + UTI with e coli. We will start an a ntibiotic today and follow the culture and sensitivities. Ongoing sleep hygiene. Awaiting labs for review. 04/13/2021 - Am rounds completed. Doing well. Pain management ongoing. Clinically improving. Medications labs vitals reviewed - no new neurological or respiratory complaints. Acute inpatient rehab process ongoing with medical supervision. Vitals reviewed with patient and serial labs are ongoing. Med review and titration ongoing. Continue to review nutrition. Continue med review. Avoid hypotension. Follow input and output. No adverse events reported to me. Medical supervision ongoing. 04/12/21 - Am rounds completed- Covid precautions ongoing. Multiple medical issues as noted surrounding patient and internal medical oversight ongoing. Active med titration ongoing No new cardiopulmonary events overnight. Airway remains protected. No new adverse focal neurological deficits reportedor found on exam. Participating in therapies. Meds labs and vitals reviewed. Avoid hypotension. Serial labs ongoing. Titrate meds as dictated by clinical course. Feels well. Wants to do independent exercises. No new pain. Avoid hypotension. 04/11/21- Patient seen participating in therapies. She states she is doing okay. She had a headacheovernight into her neck. Fioricet is providing relief. Repeat UA is negative and UTI has resolved. Salt tablets on hold and will repeat labs on Wednesday. 04/10/21- Patient seen participating in therapies. She states she is doing very well today. She continues to make progress in therapies and she is very motivated to succeed. Macrobid course completed; will repeat UA. Patient would like to trial off sodium chloride tablets. Will allow for this through the weekend and repeat lab work Wednesday morning. Patient understands and agrees with this plan. Midodrine timing adjusted and blood pressure has remained stable. 04/09/21- Patient seen resting in her room. She states she is doing okay. Macrobid to end tomorrow.Will repeat UA after abx completion. Will adjust midodrine dosing. We will continue 10 mg at 0500 and 12:00. Patient's BP is spiking at night not requiring the midodrine. Patient is in agreement withthis plan. Labs reviewed; stable. Sodium stable at 139 though she has been receiving 2gm TID. Will decrease to 1gm BID. 04/08/21- Patient seen resting in her room. Her blood pressure is elevated at this time. Sodium to be held. Labs to be repeated in the morning. Midodrine was adjusted as she is very orthostatic with therapies. Ongoing daily adjustments. We will continue to have conversations with her daily. OngoingMacrobid for UTI. 04/07/21- Patient seen resting in her room. She states she is doing okay. She did not sleep well last night from being woken up to turn. We discussed sleep hygiene. Patient is able to move on her own. She understands when to prevent bedsores. Will order sleep hygiene moving forward. Ongoing Macrobid for positive UTI. No other complaints. 04/04/21- Patient seen resting in her room. She states she is a little tired as she just completed some therapy. She states she is doing well overall. Macrobid started yesterday for UTI. We will continue to follow culture and sensitivities and make changes as needed. Patient is still not sleeping despite melatonin. Will discontinue and start trazodone. Patient has taken trazodone at home in the past. 04/03/2021- Patient seen resting in her room. She states she cannot sleep well. Melatonin was increased and scheduled for tonight. Will follow. UA reviewed and there is a likelihood of an infection. Will start Macrobid today and follow culture and sensitivities. Patient is appreciative and understands this plan. 04/02/21- Patient seen resting in her room. She is upset as she only has a few weeks of therapy left. She is very motivated to succeed and her goal is to walk out of here . Though she understands this may not be realistic. Continue to encourage and support her. She slept much better with the melatonin last night. Ongoing pain management. Patient felt that her urine was odorous. Will obtain a UA. 04/01/21- Patient seen resting in her room. She states she is doing okay. She states the ice to hershoulder blades helped tremendously. Continue ice as needed for comfort. Will add Melatonin to sleep regimen tonight. Continue to encourage p.o. intake. BP was elevated and her Midodrine was held this morning. However, patient states she was still slightly dizzy with therapy. Her pulse was also elevated. Increased blood pressure may be related to pain as well. Will adjust Midodrine. 03/31/21- Patient seen resting in her room. She states she is doing well. She is slightly discouraged because she wants to heal faster than she is. Continue to encourage and provide emotional support. Incision is healing nicely. Lidocaine patches are not providing relief for her neck muscles. Will discontinue and offer BenGay cream. Ongoing orthostatic hypotension. Intake and output is decent. Will review midodrine. 03/29/21- A.m. labs completed. Patient able to take a shower. Clemons catheter placed in an effort torest bladder. Good urine output. Pain in anterior neck and middle back scribed as tightness. No adverse neurologic changes. Continue inpatient rehab process cord injury. 03/28/21- Initiate rehab. Full medication reconciliation has occurred. Meds, labs, and vitals reviewed. VSS. 03/27/2021 - [facility] - (Admission Data below) Assessment and Plan: Present on Admission: Debility-Rehab Brown-Sequard syndrome- Flexeril, Gabapentin, Zanaflex Neck pain Cervical spondylosis with radiculopathy Cord compression HTN (hypertension) GERD (gastroesophageal reflux disease) Arthritis Hyponatremia Urinary retention Neurological deficit present DVT PRX: Enoxaparin, SCDS Electrolyte derangement-Bind and Replenish Anemia-Follow H/H. Transfuse when clinically indicated Pain Control- titration throughout acute inpatient rehab process Nausea-Zofran prn Constipation-Bowel Regimen, follow output daily Polypharmacy-Follow. Medications fully reconciled Vitamin deficiency-Supplement Nursing Instructions: Incentive spirometry, I/O's, Vitals every 8 hours, Nutrition and ADLs Record Review: moderate Old medical records, labs, preadmission screening, previous radiology studies. Nutritional support and Blood sugar management - encourage adequate diet, caloric intake, fluid balance Avoid hypoglycemia Medication Profile: Allergies Allergen Reactions Codeine Nausea and Vomiting Oxycodone Nausea and Vomiting Scheduled Medication Profile: Facility-Administered Medications as of 04/16/2021 Medication Dose Frequency Provider Last Rate Last Admin [COMPLETED] potassium chloride (KLOR-CON) SR tablet 40 mEq 40 mEq BID WITH meals Yuliet Gomez NP 40 mEq at 04/16/21 0843 phenazopyridine tablet 190 mg 190 mg TID AFTER meals Be Rangel DO 190 mg at 04/16/21 0843 nitrofurantoin (MACROBID) capsule 100 mg 100 mg BID WITH meals Yuliet Gomez NP 100 mg at 04/16/21 0843 midodrine (PROAMATINE) tablet 10 mg 10 mg BID Yuliet Gomez NP 10 mg at 04/16/21 0528 [Held by Provider] sodium chloride tablet 1 Gram 1 Gram BID WITH meals Yuliet Gomez NP 1 Gramat 04/10/21 0806 traZODone (DESYREL) tablet 50 mg 50 mg daily BEDTIME Yuliet Gomez NP 50 mg at 04/15/21 2144 nndlybeuyr-qzyaserzjmdnq-mqojhfsq (FIORICET) 50-325-40 mg per tablet 1 Tablet 1 Tablet every 6 hours PRN Be Rangel DO 1 Tablet at 04/15/21 1840 [COMPLETED] nitrofurantoin (MACROBID) capsule 100 mg 100 mg BID WITH meals Yuliet Gomez NP 100 mg at 04/10/21 0806 tiZANidine (ZANAFLEX) tablet 4 mg 4 mg every 6 hours PRN Be Rangel DO 4 mg at 04/16/21 0846 acetaminophen (TYLENOL) tablet 650 mg 650 mg every 4 hours PRN eB Rangel DO 650 mg at 04/16/21 0530 methyl salicylate-menthol (BENGAY) topical cream every 6 hours PRN Yuleit Gomez NP Given at 04/13/21 2100 bisacodyl (THE MAGIC BULLET) rectal suppository 10 mg 10 mg daily Be Rangel DO 10 mg at04/14/21 1941 gabapentin (NEURONTIN) capsule 200 mg 200 mg every 8 hours Yuliet Gomez NP 200 mg at 528 docusate sodium (COLACE) capsule 100 mg 100 mg BID Yuliet Gomez NP 100 mg at 04/16/21 0843 pantoprazole (PROTONIX) tablet 40 mg 40 mg daily BEFORE breakfast Yuliet Gomez NP 40 mg at 04/16/21 0528 polyethylene glycol (MIRALAX) packet 17 Gram 17 Gram daily Yuliet Gomez NP 17 Gram at 04/10/21 0805 fludrocortisone (FLORINEF) tablet 0.2 mg 0.2 mg daily Yuliet Gomez NP 0.2 mg at 04/16/21 0843 naloxone (NARCAN) 0.4 mg/mL injection 0.1 mg 0.1 mg see admin instructions Yuliet Gomez NP ondansetron (ZOFRAN ODT) tablet 4 mg 4 mg every 6 hours PRN Yuliet Gomez NP 4 mg at 04/08/211812 prochlorperazine maleate (COMPAZINE) tablet 10 mg 10 mg every 6 hours PRN Yuliet Gomez NP bisacodyL (DULCOLAX) delayed release tablet 5 mg 5 mg daily PRN Yuliet Gomez NP calcium as carbonate (TUMS) 500 mg (200 mg elemental) chewable tablet 200 mg 200 mg every 4 hours PRN Yuliet Gomez NP enoxaparin (LOVENOX) injection 40 mg 40 mg every 24 hours Yuliet Gomez NP 40 mg at 04/15/212 Admission Data : 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 female who recently has been admitted to [facility] for comprehensive rehabilitation - multiple complex medical issues will impact medical management throughout the acute inpatient rehabilitation process. Pt has a significant medical history including but not limited to arthritis, GERD, and HTN. Pt presented to [facility] on 03/13 with c/o posterior headaches, neck pain, and R arm pain. She reported the pain as aching sharp pressure which has been ongoing for 3 months. She noted it is primarily located at the back of her neck, radiating into her posterior neck and off the R side into her shoulder and deltoid. Pt also reported numbness in 1st-3rd fingers on theright when sleeping, as well as intermittent sensation of both feet. Cervical MRI showed disc osteophyte at C4-5 on the right side causing severe neural foraminal stenosis as well as significant discbulge osteophyte on the left at C5-6, as well as mild cord compression at C4-5. There was also large disc herniation at T8 2-3 causing cord compression and T2 signal increase. Pt brought to OR and und erwent ACDF at C4/5 and C5/6 as well as posterior decompression/laminectomy at T2-[address] Patton. Pt tolerated procedure well. MRI and CT showed large calcified disc herniation at T2-3 unchanged, overall edema in cord at T2-3 slightly smaller than preop but seems brighter, correlating with BrownSequard syndrome. Myelogram on 03/17 did not show any significant residual or persistent cord compression. Pt experienced good return of function on right and some return of function on left. On Lovenox for dvt prx, can be fully AC. Pt began working with and tolerating therapy and has been deemed medically safe and appropriate for comprehensive rehab. PMR MD to have formal referral placed. Past Medical History: Diagnosis Date Arthritis GERD (gastroesophageal reflux disease) Difficulty taking NSAIDs. HTN (hypertension) Post-operative nausea and vomiting Past Surgical History: Procedure Laterality Date ENDOSCOPY, UPPER GI HX ANTERIOR CERVICAL DISCECTOMY W/ FUSION N/A 03/13/2021 CERVICAL DISCECTOMY FUSION 2 LEVEL ANTERIOR performed by Katherin Patton MD at [facility] OR [facility] HX SECTION x 2 HX COLONOSCOPY HX HYSTERECTOMY HX MENISCECTOMY Right N/A MD FORREST W/O FACETEC FORAMOT/[facility] 04/13 VRT SEG, THORACIC N/A 03/13/2021 THORACIC LAMINECTOMY performed by Katherin Patton MD at [facility] OR [facility] Family History Problem Relation Name Age of Onset Lung Cancer Father Kidney Cancer Father Hypertension Father Other Father Tobacco Use Cervical Cancer Mother Hypertension Mother Other Mother Tobacco Use Breast Cancer Sister Hypertension Sister Hypertension Brother Other Brother Tobacco Use Stroke Maternal Grandmother Other Maternal Grandfather Tobacco Use Other Paternal Grandmother Tobacco Use Lung Cancer Paternal Grandfather Other Paternal Grandfather Tobacco Use Breast Cancer Other Aunt Social History Tobacco Use Smoking status: Former Smoker Packs/day: 0.50 Years: 5.00 Pack years: 2.50 Types: Cigarettes Quit date: 1980 Years since quittin.0 Smokeless tobacco: Never Used Vaping Use Vaping Use: Never used Substance Use Topics Alcohol use: Never Drug use: Never reports that she quit smoking about 42 years ago. Her smoking use included cigarettes. She has a 2.50 pack-year smoking history. She has never used smokeless tobacco. She reports that she does not drink alcohol and does not use drugs. Review of Systems: No new fever or chills, worsening cough or colds, chest pain No new abdominal pain, heat or cold intolerance weakness Objective Data: Vitals With Comments 04/16/2021 0546 04/15/2021 1942 04/15/2021 1316 04/15/2021 0543 BP: 121/76 167/89 147/84 125/75 Pulse: 76 70 80 81 Resp: 18 16 18 18 Temp: 98.9 ??F (37.2 ??C) 98.5 ??F (36.9 ??C) 98 ??F (36.7 ??C) 98.2 ??F (36.8 ??C) Temp src: Oral Oral Oral Oral SpO2: 94 % 96 % 93 % 95 % 04/16 699 - 04/16 1859 In: 600 [P.O.:600] Out: 100 [Urine:100] General alert, awake, no cardiopulmonary distress, weakness Lungs Decreased breath sounds at bases- Heart regular rate and rhythm Abdomen soft, non-tender, with bowel sounds Extremities pulses noted, no cyanosis CBC result (most recent): Lab Results Component Value Date/Time WBC 4.0 04/14/2021 04:06 AM HGB 9.9 (L) 04/14/2021 04:06 AM HGBPOC 11.5 (L) 03/13/2021 02:58 PM HCT 32.8 (L) 04/14/2021 04:06 AM PLT 227 04/14/2021 04:06 AM MCV 96.8 04/14/2021 04:06 AM BMP result (most recent): Lab Results Component Value Date/Time NA 142 04/14/2021 04:06 AM K 3.4 (L) 04/14/2021 04:06 AM CL 107 04/14/2021 04:06 AM CO2 24 04/14/2021 04:06 AM CA 8.9 04/14/2021 04:06 AM BUN 22 04/14/2021 04:06 AM CREAT 0.85 04/14/2021 04:06 AM GLUCOSE 171 (H) 04/14/2021 04:06 AM ANIONGAP 11 04/14/2021 04:06 AM CMP result (most recent): Lab Results Component Value Date/Time NA 142 04/14/2021 04:06 AM K 3.4 (L) 04/14/2021 04:06 AM CL 107 04/14/2021 04:06 AM CO2 24 04/14/2021 04:06 AM CA 8.9 04/14/2021 04:06 AM BUN 22 04/14/2021 04:06 AM CREAT 0.85 04/14/2021 04:06 AM GLUCOSE 171 (H) 04/14/2021 04:06 AM TOTALPROTEIN 5.4 (L) 04/14/2021 04:06 AM ALBUMIN 3.3 (L) 04/14/2021 04:06 AM BILITOTAL <0.2 (L) 04/14/2021 04:06 AM ALKPHOS 103 04/14/2021 04:06 AM AST 12 04/14/2021 04:06 AM ALT 15 04/14/2021 04:06 AM ANIONGAP 11 04/14/2021 04:06 AM HEPATIC function panel result (most recent): Lab Results Component Value Date/Time ALT 15 04/14/2021 04:06 AM AST 12 04/14/2021 04:06 AM ALKPHOS 103 04/14/2021 04:06 AM Hemoglobin A1C result (most recent): No results found for: HGBA1C, [id number] LIPID panel result (most recent): No results found for: CHOLTOT, HDL, LDLCALC, LDLDIRECT, TRIGLYCERIDE UA results do not (most recent): Lab Results Component Value Date/Time PHUA 8.0 04/13/2021 11:36 AM SGUR 1.010 04/13/2021 11:36 AM URINELEUKOC 3+ (A) 04/13/2021 11:36 AM NITRITEUA Positive (A) 04/13/2021 11:36 AM KETONEURINE Negative 04/13/2021 11:36 AM PROTEINUA Negative 04/13/2021 11:36 AM GLUUA Negative 04/13/2021 11:36 AM BLOODUA 1+ (A) 04/13/2021 11:36 AM WBCU >100 (A) 04/13/2021 11:36 AM RBCUA 3-5 (A) 04/13/2021 11:36 AM BACTERIAUA 2+ (A) 04/13/2021 11:36 AM UREPITHELIAL 0-5 03/28/2021 01:24 AM Results for orders placed or performed during the hospital encounter of 03/13/21 EKG 12-LEAD Narrative Stationary ECG Study [facility] Test Date: 03/17/2021 7:05 PM Pat Name: VICK SIEGEL Department: 45 Room: [facility] Gender: F Boilermaker Fitter: harlan : 1955 Requested By: KATHERIN Lindsay Order Number: [id number] Reading MD: Bhupinder Morales Measurements Intervals [place] Rate: 63 P: 53 MD: 165 QRS: 15 QRSD: 96 T: 22 QT: 433 QTc: 444 Interpretive Statements Sinus rhythm Ventricular premature complex Left atrial enlargement Low voltage, precordial leads PRWP Electronically Signed On 03-18-2021 8:08:07 BROOMMAKING SUPERVISOR by Bhupinder Morales Hospitalist Statement: The Internal Medicine team participates in patient care to directly impact the acute rehabilitationprocess. Daily rounds include discussion of I and Os, avoiding hypotension and hypoglycemia. Daily medication review completed. Ongoing efforts to coordinate care, maintain euvolemia, adequate nutrition, electrolyte management, appropriate BP management, overall stability, and management of co-morbidites individually are being dictated by clinical progress. Documentation partially completed using dictation services and EMR. Please excuse any typographicalerrors that may have occurred. FEI Titus MD Internal Medicine Director // MMAKING SUPERVISOR * Be Rangel DO - 04/16/2021 10:53 AM CST Images from the original note were not included. Physical Medicine and Rehabilitation Progress Note Admission Date: 03/27/2021 Length of stay: 20 days Patient: Vick Siegel Chief complaint: All right Subjective: Patient seen and examined during morning rounds. Clemons catheter was reanchored as she was experiencing ongoing bladder incontinence with high risk for skin breakdown. Still waiting discharge decision by insurance. Pain is tolerable. She feels her strength is improving. Last Bowel Movement (mm/dd/yyyy): 04/16/21 (04/16/21 1000) ROS: As per HPI and: No fever, chills, chest pain, shortness of breath, or cough. Social History: Lives alone in a 1 level home with 1-2 steps to enter Medications reviewed. Current Facility-Administered Medications: ??? [COMPLETED] potassium chloride (KLOR-CON) SR tablet 40 mEq, 40 mEq, Oral, BID WITH meals, Yuliet Gomez NP, 40 mEq at 04/16/21 0843 ??? phenazopyridine tablet 190 mg, 190 mg, Oral, TID AFTER meals, Be Rangle DO, 190 mg at 04/16/21 0843 ??? nitrofurantoin (MACROBID) capsule 100 mg, 100 mg, Oral, BID WITH meals, Yuliet Gomez NP, 100 mg at 04/16/21 0843 ??? midodrine (PROAMATINE) tablet 10 mg, 10 mg, Oral, BID, Yuliet Gomez NP, 10 mg at ??? [Held by Provider] sodium chloride tablet 1 Gram, 1 Gram, Oral, BID WITH meals, Yuliet Gomez NP, 1 Gram at 04/10/21 0806 ??? traZODone (DESYREL) tablet 50 mg, 50 mg, Oral, daily BEDTIME, Yuliet Gomez NP, 50 mg at 04/15/21 2144 ??? iuzafvyade-fzlyuxyiehldq-bvnaekjl (FIORICET) 50-325-40 mg per tablet 1 Tablet, 1 Tablet, Oral, every 6 hours PRN, Be Rangel DO, 1 Tablet at 04/15/21 1840 ??? tiZANidine (ZANAFLEX) tablet 4 mg, 4 mg, Oral, every 6 hours PRN, Be Rangel DO, 4 mg at 04/16/21 0846 ??? acetaminophen (TYLENOL) tablet 650 mg, 650 mg, Oral, every 4 hours PRN, Be Rangel DO, 650 mg at 04/16/21 0530 ??? methyl salicylate-menthol (BENGAY) topical cream, , Topical, every 6 hours PRN, Yuliet Gomez NP, Given at 04/13/21 2100 ??? bisacodyl (THE MAGIC BULLET) rectal suppository 10 mg, 10 mg, Rectal, daily, Brenton Rangel DO, 10 mg at 04/14/21 194 ??? gabapentin (NEURONTIN) capsule 200 mg, 200 mg, Oral, every 8 hours, Yuliet Gomez NP, 200 mg at 04/16/21527 ??? docusate sodium (COLACE) capsule 100 mg, 100 mg, Oral, BID, Yuliet Gomez NP, 100 mg at 04/16/21 0843 ??? pantoprazole (PROTONIX) tablet 40 mg, 40 mg, Oral, daily BEFORE breakfast, Yuliet Gomez NP, 40 mg at 04/16/21527 ??? polyethylene glycol (MIRALAX) packet 17 Gram, 17 Gram, Oral, daily, Yuliet Gomez NP, 17 Gram at 04/10/21 0805 ??? fludrocortisone (FLORINEF) tablet 0.2 mg, 0.2 mg, Oral, daily, Yuliet Gomez NP, 0.2 mg at04/16/21 08 ??? naloxone (NARCAN) 0.4 mg/mL injection 0.1 mg, 0.1 mg, IV, see admin instructions, Yuliet Gomez NP ??? ondansetron (ZOFRAN ODT) tablet 4 mg, 4 mg, Oral, every 6 hours PRN, Yuliet Gomez NP, 4 mg at 04/08/21 181 ??? prochlorperazine maleate (COMPAZINE) tablet 10 mg, 10 mg, Oral, every 6 hours PRN, Yuliet Gomez NP ??? bisacodyL (DULCOLAX) delayed release tablet 5 mg, 5 mg, Oral, daily PRN, Yuliet Gomez, FEI ??? calcium as carbonate (TUMS) 500 mg (200 mg elemental) chewable tablet 200 mg, 200 mg, Oral, every 4 hours PRN, Yuliet Gomez, FEI ??? enoxaparin (LOVENOX) injection 40 mg, 40 mg, subCUT, every 24 hours, Yuliet Gomez, FEI, 40 mg at 04/15/21 2142 Objective: Vitals: BP 121/76 (BP Location: Right arm, Patient Position (BP): Supine) Pulse 76 Temp 98.9 ??F (37.2 ??C) (Oral) Resp 18 Ht 5' 3 (1.6 m) Wt 90.7 kg (200 lb) SpO2 94% BMI 35.43 kg/m?? General:alert, no distress and cooperative Lungs: normal respiratory effort. Ext: No significant calf/ankle edema. Neuro: CN II-XII grossly intact, no facial droop Psyche: Mood is appropriate to circumstances. Affect is Euthymic Incision: Data Review: No results found for any visits on 03/27/21 (from the past 24 hour(s)). ASSESSMENT/PLAN: Patient is a 66 y.o. female who underwent C4-6 ACDF and T2-T3 laminectomy on 03/13/[address] 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 Functional status:Therapy progress noted today: -Discussed in team conference with nursing, therapyand rental boats caretaker. See note for details. Highlights include: Date of Conference: 04/15/20 Barriers to Discharge: Patient apprehension, Home entry, Limited strength, balance, endurance and Functioning at wheelchair level Driver/Guide: Lorin Munoz DC Date: 04/17 PT/OT/Aide Activities of Daily Living Feeding: ind Grooming: ind Bathing: wes Upper Body Dressing: ind Lower Body Dressing: wes Toileting: moda Toilet transfers: wes Mobility Bed mobility: wes Transfers: wes Gait: 8 feet moda with // bars Wheelchair mobility: wes Progress toward goals and modifications to course of treatment: walked in the // bars Patient reports: improving strength ?? Rehab: -Impairments: Gait, function, self-care, mobility, ADLs - Initiate PT/OT rehabilitation nursing, recreation therapy, and social security assessor. -Isolation: None -Precautions: None -Pain: As needed Tylenol. Gabapentin. Tizanidine. Fioricet for headache -Fall prevention: Education and therapies ?? Neurogenic bladder: UA positive. Macrobid course complete, repeat UA positive. Macrobid resumed. Voiding trial somewhat successful 1/3 other than incontinence. Re-anchoring clemons for skin protection ?? Neurogenic bowel: Bowel routine with Magic bullet. Colace, MiraLAX ?? Skin/Wound Care: Monitor surgical incision for proper healing Mobility Today???s visit is specifically in regards to the patient???s need for an ultra- lightweight manual wheelchair. This device is necessary to access patient???s home to complete feeding, toileting, and dressing as well as other activities of daily living due to complex needs. Patient is functionally and safely non- ambulatory as she cannot ambulate any distance without assist, even with an ambulatoryaide and he is unable to functionally propel all lesser costly manual wheelchairs in home setting for MRADL???s due to impaired strength and activity tolerance d/t recent spinal cord injury. Patient presents with sufficient strength to propel an ultra lightweight manual wheelchair and it can be conf igured to meet her functional needs and anatomical dimensions. Patient is considered to be a residential wheelchair user and will be in the wheelchair the majority day. 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 A special mobility assessment has been completed to determine optimum mobility system with detailed recommendations and I concur with those recommendations. Sleep: Melatonin ?? Prophylaxis/Prevention: DVT: Lovenox GI: Protonix ?? Medical History/Active Issues: To be managed by primary medicine team Orthostatic hypotension: Midodrine, Florinef. Adjustments ongoing Hyponatremia: Salt tabs ?? FEN: DIET GENERAL Effective Now -Replete electrolytes as needed - Continue vitamins/supplements -Periodic labs, monitor trends ?? Disposition: -Anticipated location: Home -ELOS: 28 days -Code Status: Full Code ? F/U appts: -Huang Alonso MD after discharge from rehab -Dr. Patton -Rehab Discussed with medicine 04/16/2021 Electronically Signed By: Be Rangel DO ATTESTATION STATEMENTS Portions of this note were transcribed using Et3arraf naturally speaking computerized voice recognition without a human social insurance analyst. This report may or may not have been adjusted for typographical, grammatical and syntax errors or malapropisms. MMAKING SUPERVISOR * Molly Flores GN - 04/15/2021 6:01 PM CST Head-to-toe re-assessment observations documented in flowsheet. Any noted deviations from baseline observed in head-to-toe assessment: none Any abnormal VS requiring intervention or close monitoring: no Patient had 8 episodes of urinary incontinence before 13:00h without evidence of urinary retention.MD notified. Orders for clemons cath placed. Single insertion attempted, pt tolerated placement w/ nocomplaints of pain. 175mL orange cloudy catheter output noted. Sediment present. See flowsheets forassessment details. C/o of headache pain treated with PRN Fioricet. Patient has had no falls at this time and is fall risk level/color yellow Interventions in Place: [x] Bed Alarm [] Clip Chair Alarm [x] Call Light within reach, return demo by patient completed [] Handoff patient when returning him/her to room [x] Wheelchair/Walker out of reach [x] Low Bed [] Mats in Place [x] Fall Risk Magnet on Door [x] Fall Risk Magnet on Schedule Board [x] Fall Risk Armband on Patient [] Sitter [] Other If patient is red fall risk: [] Patient will not be left alone in bathroom [] Self-Releasing Belt (a one time order is required) [] Patient demonstrated ability to release wheelchair alarmed seatbelt. [] Observation Room Patient Education on Medications Education provided Re: Vick Siegel This education was provided to the patient Name of medication(s): all administered medications The education included the following: How to identify their medication, Administering their medication, Understanding the side effects oftheir medication MAX Cyr MMAKING SUPERVISOR * Gabo Garrison - 04/15/2021 3:11 PM CST When I entered Vick's room she welcomed me with a big smile and was very friendly to me. She was in a very good mood and seemed happy to talk with someone. Vick has been for 31 years andlives alone but her daughter will stay with her as she recovers from her back surgery. Vick is supposed to go home today but feels she is not ready to go home yet. [place] [facility] She feels she needs a little more time. She thanked me for stopping by to visit with her and for the prayers for her recovery and for her family. Chaplain Feliciano Garrison Public Aid Eligibility Assistant II Extension:[id number] MMAKING SUPERVISOR * Be Rangel DO - 04/15/2021 11:03 AM CST Images from the original note were not included. Physical Medicine and Rehabilitation Progress Note Admission Date: 03/27/2021 Length of stay: 19 days Patient: Vick Siegel Chief complaint: It was weird Subjective: Patient seen and examined during morning rounds. She states it was weird walking in the parallel bars yesterday. She is very happy with this progress. She is hopeful to be able to stand pivot transfer to the bathroom. Ongoing urinary incontinence, especially at night. Headache is ongoing. Dizziness and orthostatic symptoms continue to improve. Last Bowel Movement (mm/dd/yyyy): 04/14/21 (04/14/211999) ROS: As per HPI and: No fever, chills, chest pain, shortness of breath, or cough. Social History: Lives alone in a 1 level home with 1-2 steps to enter Medications reviewed. Current Facility-Administered Medications: ??? phenazopyridine tablet 190 mg, 190 mg, Oral, TID AFTER meals, Be Rangel DO, 190 mg at 04/15/21 0810 ??? nitrofurantoin (MACROBID) capsule 100 mg, 100 mg, Oral, BID WITH meals, Yuliet Gomez NP, 100 mg at 04/15/21 0811 ??? midodrine (PROAMATINE) tablet 10 mg, 10 mg, Oral, BID, Yuliet Gomez NP, 10 mg at ??? [Held by Provider] sodium chloride tablet 1 Gram, 1 Gram, Oral, BID WITH meals, Yuliet Gomez, FEI, 1 Gram at 04/10/21 0806 ??? traZODone (DESYREL) tablet 50 mg, 50 mg, Oral, daily BEDTIME, Yuliet Gomez, FEI, 50 mg at 04/14/212012 ??? pvteonuuih-bjearapvjtayi-wsmvjink (FIORICET) 50-325-40 mg per tablet 1 Tablet, 1 Tablet, Oral, every 6 hours PRN, Be Rangel DO, 1 Tablet at 04/15/21 0811 ??? tiZANidine (ZANAFLEX) tablet 4 mg, 4 mg, Oral, every 6 hours PRN, Be Rangel DO, 4 mg at 04/14/21 1917 ??? acetaminophen (TYLENOL) tablet 650 mg, 650 mg, Oral, every 4 hours PRN, Be Rangel DO, 650 mg at 04/14/212012 ??? methyl salicylate-menthol (BENGAY) topical cream, , Topical, every 6 hours PRN, Yuliet Gomez NP, Given at 04/13/21 2100 ??? bisacodyl (THE MAGIC BULLET) rectal suppository 10 mg, 10 mg, Rectal, daily, Brenton Rangel, , 10 mg at 04/14/21 194 ??? gabapentin (NEURONTIN) capsule 200 mg, 200 mg, Oral, every 8 hours, Yuliet Gomez NP, 200 mg at 04/15/21 0547 ??? docusate sodium (COLACE) capsule 100 mg, 100 mg, Oral, BID, Yuliet Gomez NP, 100 mg at 04/14/212012 ??? pantoprazole (PROTONIX) tablet 40 mg, 40 mg, Oral, daily BEFORE breakfast, Yuliet Gomez NP, 40 mg at 04/15/21 0547 ??? polyethylene glycol (MIRALAX) packet 17 Gram, 17 Gram, Oral, daily, Yuliet Gomez NP, 17 Gram at 04/10/21 0805 ??? fludrocortisone (FLORINEF) tablet 0.2 mg, 0.2 mg, Oral, daily, Yuliet Gomez NP, 0.2 mg at04/15/21 0811 ??? naloxone (NARCAN) 0.4 mg/mL injection 0.1 mg, 0.1 mg, IV, see admin instructions, Yuliet Gomez NP ??? ondansetron (ZOFRAN ODT) tablet 4 mg, 4 mg, Oral, every 6 hours PRN, Yuliet Gomez NP, 4 mg at 04/08/21 1813 ??? prochlorperazine maleate (COMPAZINE) tablet 10 mg, 10 mg, Oral, every 6 hours PRN, Yuliet Gomez NP ??? bisacodyL (DULCOLAX) delayed release tablet 5 mg, 5 mg, Oral, daily PRN, Yuliet Gomez NP ??? calcium as carbonate (TUMS) 500 mg (200 mg elemental) chewable tablet 200 mg, 200 mg, Oral, every 4 hours PRN, Yuliet Gomez NP ??? enoxaparin (LOVENOX) injection 40 mg, 40 mg, subCUT, every 24 hours, Yuliet Gomez NP, 40 mg at 04/14/212012 Objective: Vitals: BP 125/75 (BP Location: Right arm, Patient Position (BP): Supine) Pulse 81 Temp 98.2 ??F (36.8 ??C) (Oral) Resp 18 Ht 5' 3 (1.6 m) Wt 90.7 kg (200 lb) SpO2 95% BMI 35.43 kg/m?? General:alert, no distress and cooperative Lungs: normal respiratory effort. Ext: No significant calf/ankle edema. Neuro: CN II-XII grossly intact, no facial droop Psyche: Mood is appropriate to circumstances. Affect is Euthymic Incision: Data Review: No results found for any visits on 03/27/21 (from the past 24 hour(s)). ASSESSMENT/PLAN: Patient is a 66 y.o. female who underwent C4-6 ACDF and T2-T3 laminectomy on 03/13/[address] 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 Functional status:Therapy progress noted today: -Discussed in team conference with nursing, therapyand rental boats caretaker. See note for details. Highlights include: Date of Conference: 04/15/20 Barriers to Discharge: Patient apprehension, Home entry, Limited strength, balance, endurance and Functioning at wheelchair level Driver/Guide: Lorin Munoz DC Date: 04/17 PT/OT/Aide Activities of Daily Living Feeding: ind Grooming: ind Bathing: wes Upper Body Dressing: ind Lower Body Dressing: wes Toileting: moda Toilet transfers: wes Mobility Bed mobility: wes Transfers: wes Gait: 8 feet moda with // bars Wheelchair mobility: wes Progress toward goals and modifications to course of treatment: walked in the // bars Patient reports: improving strength ?? Rehab: -Impairments: Gait, function, self-care, mobility, ADLs - Initiate PT/OT rehabilitation nursing, recreation therapy, and social security assessor. -Isolation: None -Precautions: None -Pain: As needed Tylenol. Gabapentin. Tizanidine. Fioricet for headache -Fall prevention: Education and therapies ?? Neurogenic bladder: UA positive. Macrobid course complete, repeat UA positive. Macrobid resumed. Voiding trial somewhat successful 1/3 other than incontinence. Re-anchoring clemons for skin protection ?? Neurogenic bowel: Bowel routine with Magic bullet. Colace, MiraLAX ?? Skin/Wound Care: Monitor surgical incision for proper healing Mobility Today???s visit is specifically in regards to the patient???s need for an ultra- lightweight manual wheelchair. This device is necessary to access patient???s home to complete feeding, toileting, and dressing as well as other activities of daily living due to complex needs. Patient is functionally and safely non- ambulatory as she cannot ambulate any distance without assist, even with an ambulatoryaide and he is unable to functionally propel all lesser costly manual wheelchairs in home setting for MRADL???s due to impaired strength and activity tolerance d/t recent spinal cord injury. Patient presents with sufficient strength to propel an ultra lightweight manual wheelchair and it can be conf igured to meet her functional needs and anatomical dimensions. 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 A special mobility assessment has been completed to determine optimum mobilitysystem with detailed recommendations and I concur with those recommendations. Sleep: Melatonin ?? Prophylaxis/Prevention: DVT: Lovenox GI: Protonix ?? Medical History/Active Issues: To be managed by primary medicine team Orthostatic hypotension: Midodrine, Florinef. Adjustments ongoing Hyponatremia: Salt tabs ?? FEN: DIET GENERAL Effective Now -Replete electrolytes as needed - Continue vitamins/supplements -Periodic labs, monitor trends ?? Disposition: -Anticipated location: Home -ELOS: 28 days -Code Status: Full Code ? F/U appts: -Huang Alonso MD after discharge from rehab -Dr. Patton -Rehab Discussed with medicine 04/15/2021 Electronically Signed By: Be Rangel DO ATTESTATION STATEMENTS Portions of this note were transcribed using Et3arraf naturally speaking computerized voice recognition without a human social insurance analyst. This report may or may not have been adjusted for typographical, grammatical and syntax errors or malapropisms. MMAKING SUPERVISOR * Reggie Johnson MD - 04/15/2021 10:40 AM CST Images from the original note were not included. Internal Medicine/Rehabilitation Service Patient: Vick Siegel Date of : 1955 Admission Date: (03/27/2021) Vitals With Comments 04/15/2021 0543 04/14/2021 2011 04/14/2021 1400 04/14/2021 0408 BP: 125/75 161/81 146/80 115/69 Pulse: 81 80 73 85 Resp: 18 17 18 18 Temp: 98.2 ??F (36.8 ??C) 98.3 ??F (36.8 ??C) 98 ??F (36.7 ??C) 97.8 ??F (36.6 ??C) Temp src: Oral Oral Oral Oral SpO2: 95 % 97 % 95 % 96 % DIET GENERAL Effective Now Full Code Timeline (including subjective): 04/15/21- Patient seen and examined in a.m. rounds. She was very incontinent last night. We discussed the importance of toileting every 2 hours while awake. Patient also has a UTI with ongoing antibiotics. This may be attributing to some of the incontinence. We discussed the importance of proper pericare to prevent skin breakdown and infection. Urine culture and sensitivities reviewed; ongoing macrobid. Labs reviewed; stable. Potassium supplementation offered. Sodium acceptable without supplementation. Patient is awaiting her appeal decision. Continue to provide medical supervision. 04/14/2021- Patient seen resting in her room. She states she is tired from therapies. She is on performance day today. She states she is going to appeal and hopes to stay longer. Ongoing voiding trial in which it is successful at this time. However, repeat UA does + UTI with e coli. We will start an a ntibiotic today and follow the culture and sensitivities. Ongoing sleep hygiene. Awaiting labs for review. 04/13/2021 - Am rounds completed. Doing well. Pain management ongoing. Clinically improving. Medications labs vitals reviewed - no new neurological or respiratory complaints. Acute inpatient rehab process ongoing with medical supervision. Vitals reviewed with patient and serial labs are ongoing. Med review and titration ongoing. Continue to review nutrition. Continue med review. Avoid hypotension. Follow input and output. No adverse events reported to me. Medical supervision ongoing. 04/12/21 - Am rounds completed- Covid precautions ongoing. Multiple medical issues as noted surrounding patient and internal medical oversight ongoing. Active med titration ongoing No new cardiopulmonary events overnight. Airway remains protected. No new adverse focal neurological deficits reportedor found on exam. Participating in therapies. Meds labs and vitals reviewed. Avoid hypotension. Serial labs ongoing. Titrate meds as dictated by clinical course. Feels well. Wants to do independent exercises. No new pain. Avoid hypotension. 04/11/21- Patient seen participating in therapies. She states she is doing okay. She had a headacheovernight into her neck. Fioricet is providing relief. Repeat UA is negative and UTI has resolved. Salt tablets on hold and will repeat labs on Wednesday. 04/10/21- Patient seen participating in therapies. She states she is doing very well today. She continues to make progress in therapies and she is very motivated to succeed. Macrobid course completed; will repeat UA. Patient would like to trial off sodium chloride tablets. Will allow for this through the weekend and repeat lab work Wednesday morning. Patient understands and agrees with this plan. Midodrine timing adjusted and blood pressure has remained stable. 04/09/21- Patient seen resting in her room. She states she is doing okay. Macrobid to end tomorrow.Will repeat UA after abx completion. Will adjust midodrine dosing. We will continue 10 mg at 0500 and 12:00. Patient's BP is spiking at night not requiring the midodrine. Patient is in agreement withthis plan. Labs reviewed; stable. Sodium stable at 139 though she has been receiving 2gm TID. Will decrease to 1gm BID. 04/08/21- Patient seen resting in her room. Her blood pressure is elevated at this time. Sodium to be held. Labs to be repeated in the morning. Midodrine was adjusted as she is very orthostatic with therapies. Ongoing daily adjustments. We will continue to have conversations with her daily. OngoingMacrobid for UTI. 04/07/21- Patient seen resting in her room. She states she is doing okay. She did not sleep well last night from being woken up to turn. We discussed sleep hygiene. Patient is able to move on her own. She understands when to prevent bedsores. Will order sleep hygiene moving forward. Ongoing Macrobid for positive UTI. No other complaints. 04/04/21- Patient seen resting in her room. She states she is a little tired as she just completed some therapy. She states she is doing well overall. Macrobid started yesterday for UTI. We will continue to follow culture and sensitivities and make changes as needed. Patient is still not sleeping despite melatonin. Will discontinue and start trazodone. Patient has taken trazodone at home in the past. 04/03/2021- Patient seen resting in her room. She states she cannot sleep well. Melatonin was increased and scheduled for tonight. Will follow. UA reviewed and there is a likelihood of an infection. Will start Macrobid today and follow culture and sensitivities. Patient is appreciative and understands this plan. 04/02/21- Patient seen resting in her room. She is upset as she only has a few weeks of therapy left. She is very motivated to succeed and her goal is to walk out of here . Though she understands this may not be realistic. Continue to encourage and support her. She slept much better with the melatonin last night. Ongoing pain management. Patient felt that her urine was odorous. Will obtain a UA. 04/01/21- Patient seen resting in her room. She states she is doing okay. She states the ice to hershoulder blades helped tremendously. Continue ice as needed for comfort. Will add Melatonin to sleep regimen tonight. Continue to encourage p.o. intake. BP was elevated and her Midodrine was held this morning. However, patient states she was still slightly dizzy with therapy. Her pulse was also elevated. Increased blood pressure may be related to pain as well. Will adjust Midodrine. 03/31/21- Patient seen resting in her room. She states she is doing well. She is slightly discouraged because she wants to heal faster than she is. Continue to encourage and provide emotional support. Incision is healing nicely. Lidocaine patches are not providing relief for her neck muscles. Will discontinue and offer BenGay cream. Ongoing orthostatic hypotension. Intake and output is decent. Will review midodrine. 03/29/21- A.m. labs completed. Patient able to take a shower. Clemons catheter placed in an effort torest bladder. Good urine output. Pain in anterior neck and middle back scribed as tightness. No adverse neurologic changes. Continue inpatient rehab process cord injury. 03/28/21- Initiate rehab. Full medication reconciliation has occurred. Meds, labs, and vitals reviewed. VSS. 03/27/2021 - [facility] - (Admission Data below) Assessment and Plan: Present on Admission: Debility-Rehab ??? Brown-Sequard syndrome- Flexeril, Gabapentin, Zanaflex ??? Neck pain ??? Cervical spondylosis with radiculopathy ??? Cord compression ??? HTN (hypertension) ??? GERD (gastroesophageal reflux disease) ??? Arthritis ??? Hyponatremia ??? Urinary retention ??? Neurological deficit present DVT PRX: Enoxaparin, SCDS Electrolyte derangement-Bind and Replenish Anemia-Follow H/H. Transfuse when clinically indicated Pain Control- titration throughout acute inpatient rehab process Nausea-Zofran prn Constipation-Bowel Regimen, follow output daily Polypharmacy-Follow. Medications fully reconciled Vitamin deficiency-Supplement Nursing Instructions: Incentive spirometry, I/O's, Vitals every 8 hours, Nutrition and ADLs Record Review: moderate Old medical records, labs, preadmission screening, previous radiology studies. Nutritional support and Blood sugar management - encourage adequate diet, caloric intake, fluid balance Avoid hypoglycemia Medication Profile: Allergies Allergen Reactions ??? Codeine Nausea and Vomiting ??? Oxycodone Nausea and Vomiting Scheduled Medication Profile: Facility-Administered Medications as of 04/15/2021 Medication Dose Frequency Provider Last Rate Last Admin ??? phenazopyridine tablet 190 mg 190 mg TID AFTER meals Be Rangel, DO 190 mg at 04/15/21 0810 ??? nitrofurantoin (MACROBID) capsule 100 mg 100 mg BID WITH meals Yuliet Gomez, INFRASTRUCTURE ARCHITECT 100 mg at 04/15/21 0811 ??? midodrine (PROAMATINE) tablet 10 mg 10 mg BID Yuliet Gomez INFRASTRUCTURE ARCHITECT 10 mg at 04/15/21 0547 ??? [Held by Provider] sodium chloride tablet 1 Gram 1 Gram BID WITH meals Yuliet Gomez, INFRASTRUCTURE ARCHITECT 1 Gram at 04/10/21 0806 ??? traZODone (DESYREL) tablet 50 mg 50 mg daily BEDTIME Yuliet Gomez INFRASTRUCTURE ARCHITECT 50 mg at 04/14/212012 ??? bzyosrbnkg-yupkfygcvgjgx-jzqfhonp (FIORICET) 50-325-40 mg per tablet 1 Tablet 1 Tablet every 6 hours PRN Be Rangel, DO 1 Tablet at 04/15/21 0811 ??? [COMPLETED] nitrofurantoin (MACROBID) capsule 100 mg 100 mg BID WITH meals Yuliet Gomez, INFRASTRUCTURE ARCHITECT 100 mg at 04/10/21 0806 ??? tiZANidine (ZANAFLEX) tablet 4 mg 4 mg every 6 hours PRN Be Rangel, DO 4 mg at 04/14/21 1917 ??? acetaminophen (TYLENOL) tablet 650 mg 650 mg every 4 hours PRN Be Rangel DO 650 mg at 04/14/212012 ??? methyl salicylate-menthol (BENGAY) topical cream every 6 hours PRN Yuliet Gomez NP Given at 04/13/21 2100 ??? bisacodyl (THE MAGIC BULLET) rectal suppository 10 mg 10 mg daily Be Rangel DO 10 mg at 04/14/21 194 ??? gabapentin (NEURONTIN) capsule 200 mg 200 mg every 8 hours Yuliet Gomez NP 200 mg at 04/15/21 0547 ??? docusate sodium (COLACE) capsule 100 mg 100 mg BID Yuliet Gomez NP 100 mg at 04/14/212012 ??? pantoprazole (PROTONIX) tablet 40 mg 40 mg daily BEFORE breakfast Yuliet Gomez NP 40 mg at 04/15/21 0547 ??? polyethylene glycol (MIRALAX) packet 17 Gram 17 Gram daily Yuliet Gomez NP 17 Gram at 04/10/21 0805 ??? fludrocortisone (FLORINEF) tablet 0.2 mg 0.2 mg daily Yuliet Gomez NP 0.2 mg at 04/15/21 0811 ??? naloxone (NARCAN) 0.4 mg/mL injection 0.1 mg 0.1 mg see admin instructions Yuliet Gomez NP ??? ondansetron (ZOFRAN ODT) tablet 4 mg 4 mg every 6 hours PRN Yuliet Gomez NP 4 mg at 04/08/21 1813 ??? prochlorperazine maleate (COMPAZINE) tablet 10 mg 10 mg every 6 hours PRN Yuliet Gomez NP ??? bisacodyL (DULCOLAX) delayed release tablet 5 mg 5 mg daily PRN Yuliet Gomez, FEI ??? calcium as carbonate (TUMS) 500 mg (200 mg elemental) chewable tablet 200 mg 200 mg every 4 hours PRN Yuliet Gomez NP ??? enoxaparin (LOVENOX) injection 40 mg 40 mg every 24 hours Yuliet Gomez NP 40 mg at 04/14/212012 Admission Data : 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 female who recently has been admitted to [facility] for comprehensive rehabilitation - multiple complex medical issues will impact medical management throughout the acute inpatient rehabilitation process. Pt has a significant medical history including but not limited to arthritis, GERD, and HTN. Pt presented to [facility] on 03/13 with c/o posterior headaches, neck pain, and R arm pain. She reported the pain as aching sharp pressure which has been ongoing for 3 months. She noted it is primarily located at the back of her neck, radiating into her posterior neck and off the R side into her shoulder and deltoid. Pt also reported numbness in 1st-3rd fingers on theright when sleeping, as well as intermittent sensation of both feet. Cervical MRI showed disc osteophyte at C4-5 on the right side causing severe neural foraminal stenosis as well as significant discbulge osteophyte on the left at C5-6, as well as mild cord compression at C4-5. There was also large disc herniation at T8 2-3 causing cord compression and T2 signal increase. Pt brought to OR and und erwent ACDF at C4/5 and C5/6 as well as posterior decompression/laminectomy at T2-[address] Patton. Pt tolerated procedure well. MRI and CT showed large calcified disc herniation at T2-3 unchanged, overall edema in cord at T2-3 slightly smaller than preop but seems brighter, correlating with BrownSequard syndrome. Myelogram on 03/17 did not show any significant residual or persistent cord compression. Pt experienced good return of function on right and some return of function on left. On Lovenox for dvt prx, can be fully AC. Pt began working with and tolerating therapy and has been deemed medically safe and appropriate for comprehensive rehab. PMR MD to have formal referral placed. Past Medical History: Diagnosis Date ??? Arthritis ??? GERD (gastroesophageal reflux disease) Difficulty taking NSAIDs. ??? HTN (hypertension) ??? Post-operative nausea and vomiting Past Surgical History: Procedure Laterality Date ??? ENDOSCOPY, UPPER GI ??? HX ANTERIOR CERVICAL DISCECTOMY W/ FUSION N/A 03/13/2021 CERVICAL DISCECTOMY FUSION 2 LEVEL ANTERIOR performed by Katherin Patton MD at [facility] OR [facility] ??? HX SECTION x 2 ??? HX COLONOSCOPY ??? HX HYSTERECTOMY ??? HX MENISCECTOMY Right N/A ??? MD FORREST W/O FACETEC FORAMOT/[facility] 04/13 VRT SEG, THORACIC N/A 03/13/2021 THORACIC LAMINECTOMY performed by Katherin Patton MD at [facility] OR [facility] Family History Problem Relation Name Age of Onset ??? Lung Cancer Father ??? Kidney Cancer Father ??? Hypertension Father ??? Other Father Tobacco Use ??? Cervical Cancer Mother ??? Hypertension Mother ??? Other Mother Tobacco Use ??? Breast Cancer Sister ??? Hypertension Sister ??? Hypertension Brother ??? Other Brother Tobacco Use ??? Stroke Maternal Grandmother ??? Other Maternal Grandfather Tobacco Use ??? Other Paternal Grandmother Tobacco Use ??? Lung Cancer Paternal Grandfather ??? Other Paternal Grandfather Tobacco Use ??? Breast Cancer Other Aunt Social History Tobacco Use ??? Smoking status: Former Smoker Packs/day: 0.50 Years: 5.00 Pack years: 2.50 Types: Cigarettes Quit date: 1980 Years since quittin.0 ??? Smokeless tobacco: Never Used Vaping Use ??? Vaping Use: Never used Substance Use Topics ??? Alcohol use: Never ??? Drug use: Never reports that she quit smoking about 42 years ago. Her smoking use included cigarettes. She has a 2.50 pack-year smoking history. She has never used smokeless tobacco. She reports that she does not drink alcohol and does not use drugs. Review of Systems: No new fever or chills, worsening cough or colds, chest pain No new abdominal pain, heat or cold intolerance weakness Objective Data: Vitals With Comments 04/15/2021 0543 04/14/2021 2011 04/14/2021 1400 04/14/2021 0408 BP: 125/75 161/81 146/80 115/69 Pulse: 81 80 73 85 Resp: 18 17 18 18 Temp: 98.2 ??F (36.8 ??C) 98.3 ??F (36.8 ??C) 98 ??F (36.7 ??C) 97.8 ??F (36.6 ??C) Temp src: Oral Oral Oral Oral SpO2: 95 % 97 % 95 % 96 % No intake/output data recorded. General alert, awake, no cardiopulmonary distress, weakness Lungs Decreased breath sounds at bases- Heart regular rate and rhythm Abdomen soft, non-tender, with bowel sounds Extremities pulses noted, no cyanosis CBC result (most recent): Lab Results Component Value Date/Time WBC 4.0 04/14/2021 04:06 AM HGB 9.9 (L) 04/14/2021 04:06 AM HGBPOC 11.5 (L) 03/13/2021 02:58 PM HCT 32.8 (L) 04/14/2021 04:06 AM PLT 227 04/14/2021 04:06 AM MCV 96.8 04/14/2021 04:06 AM BMP result (most recent): Lab Results Component Value Date/Time NA 142 04/14/2021 04:06 AM K 3.4 (L) 04/14/2021 04:06 AM CL 107 04/14/2021 04:06 AM CO2 24 04/14/2021 04:06 AM CA 8.9 04/14/2021 04:06 AM BUN 22 04/14/2021 04:06 AM CREAT 0.85 04/14/2021 04:06 AM GLUCOSE 171 (H) 04/14/2021 04:06 AM ANIONGAP 11 04/14/2021 04:06 AM CMP result (most recent): Lab Results Component Value Date/Time NA 142 04/14/2021 04:06 AM K 3.4 (L) 04/14/2021 04:06 AM CL 107 04/14/2021 04:06 AM CO2 24 04/14/2021 04:06 AM CA 8.9 04/14/2021 04:06 AM BUN 22 04/14/2021 04:06 AM CREAT 0.85 04/14/2021 04:06 AM GLUCOSE 171 (H) 04/14/2021 04:06 AM TOTALPROTEIN 5.4 (L) 04/14/2021 04:06 AM ALBUMIN 3.3 (L) 04/14/2021 04:06 AM BILITOTAL <0.2 (L) 04/14/2021 04:06 AM ALKPHOS 103 04/14/2021 04:06 AM AST 12 04/14/2021 04:06 AM ALT 15 04/14/2021 04:06 AM ANIONGAP 11 04/14/2021 04:06 AM HEPATIC function panel result (most recent): Lab Results Component Value Date/Time ALT 15 04/14/2021 04:06 AM AST 12 04/14/2021 04:06 AM ALKPHOS 103 04/14/2021 04:06 AM Hemoglobin A1C result (most recent): No results found for: HGBA1C, MARA1HZFD LIPID panel result (most recent): No results found for: CHOLTOT, HDL, LDLCALC, LDLDIRECT, TRIGLYCERIDE UA results do not (most recent): Lab Results Component Value Date/Time PHUA 8.0 04/13/2021 11:36 AM SGUR 1.010 04/13/2021 11:36 AM URINELEUKOC 3+ (A) 04/13/2021 11:36 AM NITRITEUA Positive (A) 04/13/2021 11:36 AM KETONEURINE Negative 04/13/2021 11:36 AM PROTEINUA Negative 04/13/2021 11:36 AM GLUUA Negative 04/13/2021 11:36 AM BLOODUA 1+ (A) 04/13/2021 11:36 AM WBCU >100 (A) 04/13/2021 11:36 AM RBCUA 3-5 (A) 04/13/2021 11:36 AM BACTERIAUA 2+ (A) 04/13/2021 11:36 AM UREPITHELIAL 0-5 03/28/2021 01:24 AM Results for orders placed or performed during the hospital encounter of 03/13/21 EKG 12-LEAD Narrative Stationary ECG Study [facility] Test Date: 03/17/2021 7:05 PM Pat Name: VICK SIEGEL Department: 45 Room: [facility] Gender: F Boilermaker Fitter: harlan : 1955 Requested By: KATHERIN Lindsay Order Number: [id number] Reading MD: Bhupinder Morales Measurements Intervals [place] Rate: 63 P: 53 MD: 165 QRS: 15 QRSD: 96 T: 22 QT: 433 QTc: 444 Interpretive Statements Sinus rhythm Ventricular premature complex Left atrial enlargement Low voltage, precordial leads PRWP Electronically Signed On 03-18-2021 8:08:07 BROOMMAKING SUPERVISOR by Bhupinder Morales Hospitalist Statement: The Internal Medicine team participates in patient care to directly impact the acute rehabilitationprocess. Daily rounds include discussion of I and Os, avoiding hypotension and hypoglycemia. Daily medication review completed. Ongoing efforts to coordinate care, maintain euvolemia, adequate nutrition, electrolyte management, appropriate BP management, overall stability, and management of co-morbidites individually are being dictated by clinical progress. Documentation partially completed using dictation services and EMR. Please excuse any typographicalerrors that may have occurred. FEI Titus MD Internal Medicine Director // MMAKING SUPERVISOR * Molly Flores GN - 04/14/2021 4:33 PM CST Head-to-toe re-assessment observations documented in flowsheet. Any noted deviations from baseline observed in head-to-toe assessment: none Any abnormal VS requiring intervention or close monitoring: no Voiding trial completed. Refused shower. Allison applied over bilateral glute, groin. Complaints of pain treated with PRN tylenol. Refused colace, Miralax, stating her stools were too soft. Call light within reach. No complaints voiced at this time. Patient has had no falls at this time and is fall risk level/color yellow Interventions in Place: [x] Bed Alarm [] Clip Chair Alarm [x] Call Light within reach, return demo by patient completed [] Handoff patient when returning him/her to room [x] Wheelchair/Walker out of reach [x] Low Bed [] Mats in Place [x] Fall Risk Magnet on Door [x] Fall Risk Magnet on Schedule Board [x] Fall Risk Armband on Patient [] Sitter [] Other If patient is red fall risk: [x] Patient will not be left alone in bathroom [] Self-Releasing Belt (a one time order is required) [] Patient demonstrated ability to release wheelchair alarmed seatbelt. [] Observation Room Patient Education on Medications Education provided Re: Vick Siegel This education was provided to the patient Name of medication(s): all administered medications The education included the following: How to identify their medication, Administering their medication, Understanding the side effects oftheir medication MAX Cyr MMAKING SUPERVISOR * Be Rangel DO - 04/14/2021 12:10 PM CST Images from the original note were not included. Physical Medicine and Rehabilitation Progress Note Admission Date: 03/27/2021 Length of stay: 18 days Patient: Vick Siegel Chief complaint: I am good Subjective: Patient seen and examined during morning rounds. Patient scheduled for discharge tomorrow but wanting to appeal. Undergoing a successful voiding trial over the weekend. Pain is mostly tolerable. Urinalysis from yesterday positive for bacteria again Last Bowel Movement (mm/dd/yyyy): 04/13/21 (04/14/21 0730) ROS: As per HPI and: No fever, chills, chest pain, shortness of breath, or cough. Social History: Lives alone in a 1 level home with 1-2 steps to enter Medications reviewed. Current Facility-Administered Medications: ??? phenazopyridine tablet 190 mg, 190 mg, Oral, TID AFTER meals, Be Rangel DO, 190 mg at 04/14/21 1200 ??? midodrine (PROAMATINE) tablet 10 mg, 10 mg, Oral, BID, Yuliet Gomez NP, 10 mg at ??? [Held by Provider] sodium chloride tablet 1 Gram, 1 Gram, Oral, BID WITH meals, Yuliet Gomez NP, 1 Gram at 04/10/21 0806 ??? traZODone (DESYREL) tablet 50 mg, 50 mg, Oral, daily BEDTIME, Yuliet Gomez NP, 50 mg at 04/13/212039 ??? shspvenffh-alnliybcezlhg-jbwxxhbk (FIORICET) 50-325-40 mg per tablet 1 Tablet, 1 Tablet, Oral, every 6 hours PRN, Be Rangel DO, 1 Tablet at 04/13/212100 ??? tiZANidine (ZANAFLEX) tablet 4 mg, 4 mg, Oral, every 6 hours PRN, Be Rangel DO, 4 mg at 04/14/21 0927 ??? acetaminophen (TYLENOL) tablet 650 mg, 650 mg, Oral, every 4 hours PRN, Be Rangel DO, 650 mg at 04/14/21 0928 ??? methyl salicylate-menthol (BENGAY) topical cream, , Topical, every 6 hours PRN, Yuliet Gomez NP, Given at 04/13/21 2100 ??? bisacodyl (THE MAGIC BULLET) rectal suppository 10 mg, 10 mg, Rectal, daily, Brenton Rangel DO, 10 mg at 04/13/21 2030 ??? gabapentin (NEURONTIN) capsule 200 mg, 200 mg, Oral, every 8 hours, Yuliet Gomez, FEI, 200 mg at 04/14/21 1200 ??? docusate sodium (COLACE) capsule 100 mg, 100 mg, Oral, BID, Yuliet Gomez NP, 100 mg at 04/13/21 203 ??? pantoprazole (PROTONIX) tablet 40 mg, 40 mg, Oral, daily BEFORE breakfast, Yuliet Gomez NP, 40 mg at 04/14/21 0546 ??? polyethylene glycol (MIRALAX) packet 17 Gram, 17 Gram, Oral, daily, Yuliet Gomez NP, 17 Gram at 04/10/21 0805 ??? fludrocortisone (FLORINEF) tablet 0.2 mg, 0.2 mg, Oral, daily, Yuliet Gomez NP, 0.2 mg at04/14/21 0924 ??? naloxone (NARCAN) 0.4 mg/mL injection 0.1 mg, 0.1 mg, IV, see admin instructions, Yuliet Gomez NP ??? ondansetron (ZOFRAN ODT) tablet 4 mg, 4 mg, Oral, every 6 hours PRN, Yuliet Gomez NP, 4 mg at 04/08/21 1813 ??? prochlorperazine maleate (COMPAZINE) tablet 10 mg, 10 mg, Oral, every 6 hours PRN, Yuliet Gomez, FEI ??? bisacodyL (DULCOLAX) delayed release tablet 5 mg, 5 mg, Oral, daily PRN, Yuliet Gomez, FEI ??? calcium as carbonate (TUMS) 500 mg (200 mg elemental) chewable tablet 200 mg, 200 mg, Oral, every 4 hours PRN, Yuliet Gomez, INFRASTRUCTURE ARCHITECT ??? enoxaparin (LOVENOX) injection 40 mg, 40 mg, subCUT, every 24 hours, Yuliet Gomez, FEI, 40 mg at 04/13/212038 Objective: Vitals: BP 115/69 (BP Location: Right arm, Patient Position (BP): Supine) Pulse 85 Temp 97.8 ??F (36.6 ??C) (Oral) Resp 18 Ht 5' 3 (1.6 m) Wt 90.7 kg (200 lb) SpO2 96% BMI 35.43 kg/m?? General:alert, no distress and cooperative Lungs: normal respiratory effort. Ext: No significant calf/ankle edema. Neuro: CN II-XII grossly intact, no facial droop Psyche: Mood is appropriate to circumstances. Affect is Euthymic Incision: Data Review: No results found for any visits on 03/27/21 (from the past 24 hour(s)). ASSESSMENT/PLAN: Patient is a 66 y.o. female who underwent C4-6 ACDF and T2-T3 laminectomy on 03/13/[address] 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 Functional status:Therapy progress noted today: -Discussed in team conference with nursing, therapyand rental boats caretaker. See note for details. Highlights include: Date of Conference: 04/08/21 Barriers to Discharge: Patient apprehension, Caregiver apprehension, Home entry, Bedroom/bathroom accessibility, Limited strength, balance, endurance, Requires caregiver assist, Functioning at wheelchair level, Lives alone and Limited caregiver availability Driver/Guide: Lorin Munoz DC Date: 04/15 PT/OT/Aide Activities of Daily Living Feeding: ind Grooming: ind Bathing: wes Upper Body Dressing: Independent Lower Body Dressing: Mod assist Toileting: total Toilet transfers: maxa Mobility Bed mobility: Max assist for sit to lying transfers and lying to sitting edge of bed transfers Transfers: mod-maxa slide board transfers Wheelchair mobility: 150 feet SBA manual WC Progress toward goals and modifications to course of treatment: Improving dressing and ADLs Patient reports: Desire to appeal discharge, hoping to get more days here in rehab ?? Rehab: -Impairments: Gait, function, self-care, mobility, ADLs - Initiate PT/OT rehabilitation nursing, recreation therapy, and social security assessor. -Isolation: None -Precautions: None -Pain: As needed Tylenol. Gabapentin. Tizanidine. Fioricet for headache -Fall prevention: Education and therapies ?? Neurogenic bladder: UA positive. Macrobid course complete, repeat UA positive. Antibiotics per internal medicine. Voiding trial successful 04/14 ?? Neurogenic bowel: Bowel routine with Magic bullet. Colace, MiraLAX ?? Skin/Wound Care: Monitor surgical incision for proper healing Mobility Today???s visit is specifically in regards to the patient???s need for an ultra- lightweight manual wheelchair. This device is necessary to access patient???s home to complete feeding, toileting, and dressing as well as other activities of daily living due to complex needs. Patient is functionally and safely non- ambulatory as she cannot ambulate any distance without assist, even with an ambulatoryaide and he is unable to functionally propel all lesser costly manual wheelchairs in home setting for MRADL???s due to impaired strength and activity tolerance d/t recent spinal cord injury. Patient presents with sufficient strength to propel an ultra lightweight manual wheelchair and it can be conf igured to meet her functional needs and anatomical dimensions. 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 A special mobility assessment has been completed to determine optimum mobilitysystem with detailed recommendations and I concur with those recommendations. Sleep: Melatonin ?? Prophylaxis/Prevention: DVT: Lovenox GI: Protonix ?? Medical History/Active Issues: To be managed by primary medicine team Orthostatic hypotension: Midodrine, Florinef. Adjustments ongoing Hyponatremia: Salt tabs ?? FEN: DIET GENERAL Effective Now -Replete electrolytes as needed - Continue vitamins/supplements -Periodic labs, monitor trends ?? Disposition: -Anticipated location: Home -ELOS: 28 days -Code Status: Full Code ? F/U appts: -Huang Alonso MD after discharge from rehab -Dr. Patton -Rehab Discussed with medicine 04/14/2021 Electronically Signed By: Be Rangel DO ATTESTATION STATEMENTS Portions of this note were transcribed using [employer] speaking computerized voice recognition without a human social insurance analyst. This report may or may not have been adjusted for typographical, grammatical and syntax errors or malapropisms. MMAKING SUPERVISOR * Reggie Johnson MD - 04/14/2021 11:49 AM CST Images from the original note were not included. Internal Medicine/Rehabilitation Service Patient: Vick Siegel Date of : 1955 Admission Date: (03/27/2021) Vitals With Comments 04/14/2021 0408 04/14/2021 0046 04/13/2021 2042 04/13/2021 1931 BP: 115/69 152/84 -- 147/83 Pulse: 85 86 -- 84 Resp: 18 -- -- 18 Temp: 97.8 ??F (36.6 ??C) -- -- 98.5 ??F (36.9 ??C) Temp src: Oral -- -- Oral SpO2: 96 % -- -- 97 % Weight: -- -- 90.7 kg (200 lb) -- Height: -- -- 5' 3 (1.6 m) -- DIET GENERAL Effective Now Full Code Timeline (including subjective): 04/14/2021- Patient seen resting in her room. She states she is tired from therapies. She is on performance day today. She states she is going to appeal and hopes to stay longer. Ongoing voiding trial in which it is successful at this time. However, repeat UA does + UTI with e coli. We will start an a ntibiotic today and follow the culture and sensitivities. Ongoing sleep hygiene. Awaiting labs for review. 04/13/2021 - Am rounds completed. Doing well. Pain management ongoing. Clinically improving. Medications labs vitals reviewed - no new neurological or respiratory complaints. Acute inpatient rehab process ongoing with medical supervision. Vitals reviewed with patient and serial labs are ongoing. Med review and titration ongoing. Continue to review nutrition. Continue med review. Avoid hypotension. Follow input and output. No adverse events reported to me. Medical supervision ongoing. 04/12/21 - Am rounds completed- Covid precautions ongoing. Multiple medical issues as noted surrounding patient and internal medical oversight ongoing. Active med titration ongoing No new cardiopulmonary events overnight. Airway remains protected. No new adverse focal neurological deficits reportedor found on exam. Participating in therapies. Meds labs and vitals reviewed. Avoid hypotension. Serial labs ongoing. Titrate meds as dictated by clinical course. Feels well. Wants to do independent exercises. No new pain. Avoid hypotension. 04/11/21- Patient seen participating in therapies. She states she is doing okay. She had a headacheovernight into her neck. Fioricet is providing relief. Repeat UA is negative and UTI has resolved. Salt tablets on hold and will repeat labs on Wednesday. 04/10/21- Patient seen participating in therapies. She states she is doing very well today. She continues to make progress in therapies and she is very motivated to succeed. Macrobid course completed; will repeat UA. Patient would like to trial off sodium chloride tablets. Will allow for this through the and repeat lab work Wednesday morning. Patient understands and agrees with this plan. Midodrine timing adjusted and blood pressure has remained stable. 04/09/21- Patient seen resting in her room. She states she is doing okay. Macrobid to end tomorrow.Will repeat UA after abx completion. Will adjust midodrine dosing. We will continue 10 mg at 0500 and 12:00. Patient's BP is spiking at night not requiring the midodrine. Patient is in agreement withthis plan. Labs reviewed; stable. Sodium stable at 139 though she has been receiving 2gm TID. Will decrease to 1gm BID. 04/08/21- Patient seen resting in her room. Her blood pressure is elevated at this time. Sodium to be held. Labs to be repeated in the morning. Midodrine was adjusted as she is very orthostatic with therapies. Ongoing daily adjustments. We will continue to have conversations with her daily. OngoingMacrobid for UTI. 04/07/21- Patient seen resting in her room. She states she is doing okay. She did not sleep well last night from being woken up to turn. We discussed sleep hygiene. Patient is able to move on her own. She understands when to prevent bedsores. Will order sleep hygiene moving forward. Ongoing Macrobid for positive UTI. No other complaints. 04/04/21- Patient seen resting in her room. She states she is a little tired as she just completed some therapy. She states she is doing well overall. Macrobid started yesterday for UTI. We will continue to follow culture and sensitivities and make changes as needed. Patient is still not sleeping despite melatonin. Will discontinue and start trazodone. Patient has taken trazodone at home in the past. 04/03/2021- Patient seen resting in her room. She states she cannot sleep well. Melatonin was increased and scheduled for tonight. Will follow. UA reviewed and there is a likelihood of an infection. Will start Macrobid today and follow culture and sensitivities. Patient is appreciative and understands this plan. 04/02/21- Patient seen resting in her room. She is upset as she only has a few weeks of therapy left. She is very motivated to succeed and her goal is to walk out of here . Though she understands this may not be realistic. Continue to encourage and support her. She slept much better with the melatonin last night. Ongoing pain management. Patient felt that her urine was odorous. Will obtain a UA. 04/01/21- Patient seen resting in her room. She states she is doing okay. She states the ice to hershoulder blades helped tremendously. Continue ice as needed for comfort. Will add Melatonin to sleep regimen tonight. Continue to encourage p.o. intake. BP was elevated and her Midodrine was held this morning. However, patient states she was still slightly dizzy with therapy. Her pulse was also elevated. Increased blood pressure may be related to pain as well. Will adjust Midodrine. 03/31/21- Patient seen resting in her room. She states she is doing well. She is slightly discouraged because she wants to heal faster than she is. Continue to encourage and provide emotional support. Incision is healing nicely. Lidocaine patches are not providing relief for her neck muscles. Will discontinue and offer BenGay cream. Ongoing orthostatic hypotension. Intake and output is decent. Will review midodrine. 03/29/21- A.m. labs completed. Patient able to take a shower. Clemons catheter placed in an effort torest bladder. Good urine output. Pain in anterior neck and middle back scribed as tightness. No adverse neurologic changes. Continue inpatient rehab process cord injury. 03/28/21- Initiate rehab. Full medication reconciliation has occurred. Meds, labs, and vitals reviewed. VSS. 03/27/2021 - Admission to [facility] - (Admission Data below) Assessment and Plan: Present on Admission: Debility-Rehab Brown-Sequard syndrome- Flexeril, Gabapentin, Zanaflex Neck pain Cervical spondylosis with radiculopathy Cord compression HTN (hypertension) GERD (gastroesophageal reflux disease) Arthritis Hyponatremia Urinary retention Neurological deficit present DVT PRX: Enoxaparin, SCDS Electrolyte derangement-Bind and Replenish Anemia-Follow H/H. Transfuse when clinically indicated Pain Control- titration throughout acute inpatient rehab process Nausea-Zofran prn Constipation-Bowel Regimen, follow output daily Polypharmacy-Follow. Medications fully reconciled Vitamin deficiency-Supplement Nursing Instructions: Incentive spirometry, I/O's, Vitals every 8 hours, Nutrition and ADLs Record Review: moderate Old medical records, labs, preadmission screening, previous radiology studies. Nutritional support and Blood sugar management - encourage adequate diet, caloric intake, fluid balance Avoid hypoglycemia Medication Profile: Allergies Allergen Reactions Codeine Nausea and Vomiting Oxycodone Nausea and Vomiting Scheduled Medication Profile: Facility-Administered Medications as of 04/14/2021 Medication Dose Frequency Provider Last Rate Last Admin phenazopyridine tablet 190 mg 190 mg TID AFTER meals Be Rangel DO 190 mg at 04/14/21 1042 midodrine (PROAMATINE) tablet 10 mg 10 mg BID Yuliet Gomez NP 10 mg at 04/14/21 0546 [Held by Provider] sodium chloride tablet 1 Gram 1 Gram BID WITH meals Yuliet Gomez NP 1 Gramat 04/10/21 0806 traZODone (DESYREL) tablet 50 mg 50 mg daily BEDTIME Yuliet Gomez NP 50 mg at 04/13/212039 ezvrxiqfqm-badfxckzvhucl-vqigyjyn (FIORICET) 50-325-40 mg per tablet 1 Tablet 1 Tablet every 6 hours PRN Be Rangel DO 1 Tablet at 04/13/212100 [COMPLETED] nitrofurantoin (MACROBID) capsule 100 mg 100 mg BID WITH meals Yuliet Gomez NP 100 mg at 04/10/21 0806 tiZANidine (ZANAFLEX) tablet 4 mg 4 mg every 6 hours PRN Be aRngel DO 4 mg at 04/14/21 0927 acetaminophen (TYLENOL) tablet 650 mg 650 mg every 4 hours PRN Be Rangel DO 650 mg at 04/14/21 0928 methyl salicylate-menthol (BENGAY) topical cream every 6 hours PRN Yuliet Gomez NP Given at 04/13/21 2100 bisacodyl (THE MAGIC BULLET) rectal suppository 10 mg 10 mg daily Be Rangel DO 10 mg at04/13/21 2030 gabapentin (NEURONTIN) capsule 200 mg 200 mg every 8 hours Yuilet Gomez NP 200 mg at docusate sodium (COLACE) capsule 100 mg 100 mg BID Yuliet Gomez NP 100 mg at 04/13/212038 pantoprazole (PROTONIX) tablet 40 mg 40 mg daily BEFORE breakfast Yuliet Gomez NP 40 mg at 04/14/21 0546 polyethylene glycol (MIRALAX) packet 17 Gram 17 Gram daily Yuliet Gomez NP 17 Gram at 04/10/21 0805 fludrocortisone (FLORINEF) tablet 0.2 mg 0.2 mg daily Yuliet Gomez NP 0.2 mg at 04/14/21 0924 naloxone (NARCAN) 0.4 mg/mL injection 0.1 mg 0.1 mg see admin instructions Yuliet Gomez NP ondansetron (ZOFRAN ODT) tablet 4 mg 4 mg every 6 hours PRN Yuliet Gomez NP 4 mg at 04/08/21 181 prochlorperazine maleate (COMPAZINE) tablet 10 mg 10 mg every 6 hours PRN Yuliet Gomez, FEI bisacodyL (DULCOLAX) delayed release tablet 5 mg 5 mg daily PRN Yuliet Gomez, FEI calcium as carbonate (TUMS) 500 mg (200 mg elemental) chewable tablet 200 mg 200 mg every 4 hours PRN Yuliet Gomez, FEI enoxaparin (LOVENOX) injection 40 mg 40 mg every 24 hours Yuliet Gomez NP 40 mg at 04/13/212038 Admission Data : 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 female who recently has been admitted to [facility] for comprehensive rehabilitation - multiple complex medical issues will impact medical management throughout the acute inpatient rehabilitation process. Pt has a significant medical history including but not limited to arthritis, GERD, and HTN. Pt presented to [facility] on 03/13 with c/o posterior headaches, neck pain, and R arm pain. She reported the pain as aching sharp pressure which has been ongoing for 3 months. She noted it is primarily located at the back of her neck, radiating into her posterior neck and off the R side into her shoulder and deltoid. Pt also reported numbness in 1st-3rd fingers on theright when sleeping, as well as intermittent sensation of both feet. Cervical MRI showed disc osteophyte at C4-5 on the right side causing severe neural foraminal stenosis as well as significant discbulge osteophyte on the left at C5-6, as well as mild cord compression at C4-5. There was also large disc herniation at T8 2-3 causing cord compression and T2 signal increase. Pt brought to OR and und erwent ACDF at C4/5 and C5/6 as well as posterior decompression/laminectomy at T2-[address] Patton. Pt tolerated procedure well. MRI and CT showed large calcified disc herniation at T2-3 unchanged, overall edema in cord at T2-3 slightly smaller than preop but seems brighter, correlating with BrownSequard syndrome. Myelogram on 03/17 did not show any significant residual or persistent cord compression. Pt experienced good return of function on right and some return of function on left. On Lovenox for dvt prx, can be fully AC. Pt began working with and tolerating therapy and has been deemed medically safe and appropriate for comprehensive rehab. PMR MD to have formal referral placed. Past Medical History: Diagnosis Date Arthritis GERD (gastroesophageal reflux disease) Difficulty taking NSAIDs. HTN (hypertension) Post-operative nausea and vomiting Past Surgical History: Procedure Laterality Date ENDOSCOPY, UPPER GI HX ANTERIOR CERVICAL DISCECTOMY W/ FUSION N/A 03/13/2021 CERVICAL DISCECTOMY FUSION 2 LEVEL ANTERIOR performed by Katherin Patton MD at [facility] OR [facility] HX SECTION x 2 HX COLONOSCOPY HX HYSTERECTOMY HX MENISCECTOMY Right N/A MD FORREST W/O FACETEC FORAMOT/[facility] 04/13 VRT SEG, THORACIC N/A 03/13/2021 THORACIC LAMINECTOMY performed by Katherin Patton MD at [facility] OR [facility] Family History Problem Relation Name Age of Onset Lung Cancer Father Kidney Cancer Father Hypertension Father Other Father Tobacco Use Cervical Cancer Mother Hypertension Mother Other Mother Tobacco Use Breast Cancer Sister Hypertension Sister Hypertension Brother Other Brother Tobacco Use Stroke Maternal Grandmother Other Maternal Grandfather Tobacco Use Other Paternal Grandmother Tobacco Use Lung Cancer Paternal Grandfather Other Paternal Grandfather Tobacco Use Breast Cancer Other Aunt Social History Tobacco Use Smoking status: Former Smoker Packs/day: 0.50 Years: 5.00 Pack years: 2.50 Types: Cigarettes Quit date: 1979 Years since quittin.0 Smokeless tobacco: Never Used Vaping Use Vaping Use: Never used Substance Use Topics Alcohol use: Never Drug use: Never reports that she quit smoking about 42 years ago. Her smoking use included cigarettes. She has a 2.50 pack-year smoking history. She has never used smokeless tobacco. She reports that she does not drink alcohol and does not use drugs. Review of Systems: No new fever or chills, worsening cough or colds, chest pain No new abdominal pain, heat or cold intolerance weakness Objective Data: Vitals With Comments 04/14/2021 0408 04/14/2021 0046 04/13/2021204104/13/2021 193 BP: 115/69 152/84 -- 147/83 Pulse: 85 86 -- 84 Resp: 18 -- -- 18 Temp: 97.8 ??F (36.6 ??C) -- -- 98.5 ??F (36.9 ??C) Temp src: Oral -- -- Oral SpO2: 96 % -- -- 97 % Weight: -- -- 90.7 kg (200 lb) -- Height: -- -- 5' 3 (1.6 m) -- 04/14 699 - 04/14 1858 In: 360 [P.O.:360] Out: - General alert, awake, no cardiopulmonary distress, weakness Lungs Decreased breath sounds at bases- Heart regular rate and rhythm Abdomen soft, non-tender, with bowel sounds Extremities pulses noted, no cyanosis CBC result (most recent): Lab Results Component Value Date/Time WBC 3.1 (L) 2021 11:57 AM HGB 9.6 (L) 2021 11:57 AM HGBPOC 11.5 (L) 03/13/2021 02:58 PM HCT 30.8 (L) 2021 11:57 AM PLT 213 2021 11:57 AM MCV 94.5 2021 11:57 AM BMP result (most recent): Lab Results Component Value Date/Time NA 139 2021 11:57 AM K 3.7 2021 11:57 AM CL 103 2021 11:57 AM CO2 25 2021 11:57 AM CA 8.8 2021 11:57 AM BUN 23 2021 11:57 AM CREAT 0.79 2021 11:57 AM GLUCOSE 90 2021 11:57 AM ANIONGAP 11 2021 11:57 AM CMP result (most recent): Lab Results Component Value Date/Time NA 139 2021 11:57 AM K 3.7 2021 11:57 AM CL 103 2021 11:57 AM CO2 25 2021 11:57 AM CA 8.8 2021 11:57 AM BUN 23 2021 11:57 AM CREAT 0.79 2021 11:57 AM GLUCOSE 90 2021 11:57 AM TOTALPROTEIN 5.4 (L) 2021 11:57 AM ALBUMIN 3.1 (L) 2021 11:57 AM BILITOTAL 0.2 2021 11:57 AM ALKPHOS 91 2021 11:57 AM AST 16 2021 11:57 AM ALT 18 2021 11:57 AM ANIONGAP 11 2021 11:57 AM HEPATIC function panel result (most recent): Lab Results Component Value Date/Time ALT 18 2021 11:57 AM AST 16 2021 11:57 AM ALKPHOS 91 2021 11:57 AM Hemoglobin A1C result (most recent): No results found for: HGBA1C, [id number] LIPID panel result (most recent): No results found for: CHOLTOT, HDL, LDLCALC, LDLDIRECT, TRIGLYCERIDE UA results do not (most recent): Lab Results Component Value Date/Time PHUA 8.0 04/13/2021 11:36 AM SGUR 1.010 04/13/2021 11:36 AM URINELEUKOC 3+ (A) 04/13/2021 11:36 AM NITRITEUA Positive (A) 04/13/2021 11:36 AM KETONEURINE Negative 04/13/2021 11:36 AM PROTEINUA Negative 04/13/2021 11:36 AM GLUUA Negative 04/13/2021 11:36 AM BLOODUA 1+ (A) 04/13/2021 11:36 AM WBCU >100 (A) 04/13/2021 11:36 AM RBCUA 3-5 (A) 04/13/2021 11:36 AM BACTERIAUA 2+ (A) 04/13/2021 11:36 AM UREPITHELIAL 0-5 03/28/2021 01:24 AM Results for orders placed or performed during the hospital encounter of 03/13/21 EKG 12-LEAD Narrative Stationary ECG Study [facility] Test Date: 03/17/2021 7:05 PM Pat Name: VICK SIEGEL Department: 45 Room: [facility] Gender: F Boilermaker Fitter: harlan : 1955 Requested By: KATHERIN Lindsay Order Number: [id number] David MD: Bhupinder Morales Measurements Intervals [place] Rate: 63 P: 53 MD: 165 QRS: 15 QRSD: 96 T: 22 QT: 433 QTc: 444 Interpretive Statements Sinus rhythm Ventricular premature complex Left atrial enlargement Low voltage, precordial leads PRWP Electronically Signed On 03-18-2021 8:08:07 BROOMMAKING SUPERVISOR by Bhupinder Morales Hospitalist Statement: The Internal Medicine team participates in patient care to directly impact the acute rehabilitationprocess. Daily rounds include discussion of I and Os, avoiding hypotension and hypoglycemia. Daily medication review completed. Ongoing efforts to coordinate care, maintain euvolemia, adequate nutrition, electrolyte management, appropriate BP management, overall stability, and management of co-morbidites individually are being dictated by clinical progress. Documentation partially completed using dictation services and EMR. Please excuse any typographicalerrors that may have occurred. FEI Titus MD Internal Medicine Director // MMAKING SUPERVISOR * Molly Flores GN - 04/13/2021 8:44 PM CST Head-to-toe re-assessment observations documented in flowsheet. Any noted deviations from baseline observed in head-to-toe assessment: Yes, cloudy, odorous urine with sediment present. MD notified, UA ordered, clemons discontinued, voiding trials initiated. Complaints of pain treated with PRN fiorcet. Any abnormal VS requiring intervention or close monitoring: no Patient has had no falls at this time and is fall risk level/color yellow Interventions in Place: [x] Bed Alarm [] Clip Chair Alarm [x] Call Light within reach, return demo by patient completed [] Handoff patient when returning him/her to room [x] Wheelchair/Walker out of reach [x] Low Bed [] Mats in Place [x] Fall Risk Magnet on Door [x] Fall Risk Magnet on Schedule Board [x] Fall Risk Armband on Patient [] Sitter [] Other If patient is red fall risk: [] Patient will not be left alone in bathroom [] Self-Releasing Belt (a one time order is required) [] Patient demonstrated ability to release wheelchair alarmed seatbelt. [] Observation Room Patient Education on Medications Education provided Re: Vick Siegel This education was provided to the patient Name of medication(s): all administered medications The education included the following: How to identify their medication, Administering their medication, Understanding the side effects oftheir medication MAX Cyr MMAKING SUPERVISOR * Reggie Johnson MD - 04/13/2021 11:18 AM CST Images from the original note were not included. Internal Medicine/Rehabilitation Service Patient: Vick Siegel Date of : 1955 Admission Date: (03/27/2021) Vitals With Comments 04/13/2021 0426 04/13/2021 0248 04/12/2021 1913 04/12/2021 1300 BP: 147/77 134/74 148/80 138/68 Pulse: 77 79 75 81 Resp: 18 -- 18 18 Temp: 98.3 ??F (36.8 ??C) -- 98.5 ??F (36.9 ??C) 98.1 ??F (36.7 ??C) Temp src: Oral -- Oral Oral SpO2: 96 % -- 96 % 99 % DIET GENERAL Effective Now Full Code Timeline (including subjective): 04/13/2021 - Am rounds completed. Doing well. Pain management ongoing. Clinically improving. Medications labs vitals reviewed - no new neurological or respiratory complaints. Acute inpatient rehab process ongoing with medical supervision. Vitals reviewed with patient and serial labs are ongoing. Med review and titration ongoing. Continue to review nutrition. Continue med review. Avoid hypotension. Follow input and output. No adverse events reported to me. Medical supervision ongoing. 04/12/21 - Am rounds completed- Covid precautions ongoing. Multiple medical issues as noted surrounding patient and internal medical oversight ongoing. Active med titration ongoing No new cardiopulmonary events overnight. Airway remains protected. No new adverse focal neurological deficits reportedor found on exam. Participating in therapies. Meds labs and vitals reviewed. Avoid hypotension. Serial labs ongoing. Titrate meds as dictated by clinical course. Feels well. Wants to do independent exercises. No new pain. Avoid hypotension. 04/11/21- Patient seen participating in therapies. She states she is doing okay. She had a headacheovernight into her neck.??Fioricet is providing relief. Repeat UA is negative and UTI has resolved.Salt tablets on hold and will repeat labs on Wednesday. 04/10/21- Patient seen participating in therapies. She states she is doing very well today. She continues to make progress in therapies and she is very motivated to succeed. Macrobid course completed; will repeat UA. Patient would like to trial off sodium chloride tablets. Will allow for this through the weekend and repeat lab work Wednesday morning. Patient understands and agrees with this plan. Midodrine timing adjusted and blood pressure has remained stable. 04/09/21- Patient seen resting in her room. She states she is doing okay. Macrobid to end tomorrow.Will repeat UA after abx completion. Will adjust midodrine dosing. We will continue 10 mg at 0500 and 12:00. Patient's BP is spiking at night not requiring the midodrine. Patient is in agreement withthis plan. Labs reviewed; stable. Sodium stable at 139 though she has been receiving 2gm TID. Will decrease to 1gm BID. 04/08/21- Patient seen resting in her room. Her blood pressure is elevated at this time. Sodium to be held. Labs to be repeated in the morning. Midodrine was adjusted as she is very orthostatic with therapies. Ongoing daily adjustments. We will continue to have conversations with her daily. OngoingMacrobid for UTI. 04/07/21- Patient seen resting in her room. She states she is doing okay. She did not sleep well last night from being woken up to turn. We discussed sleep hygiene. Patient is able to move on her own. She understands when to prevent bedsores. Will order sleep hygiene moving forward. Ongoing Macrobid for positive UTI. No other complaints. 04/04/21- Patient seen resting in her room. She states she is a little tired as she just completed some therapy. She states she is doing well overall. Macrobid started yesterday for UTI. We will continue to follow culture and sensitivities and make changes as needed. Patient is still not sleeping despite melatonin. Will discontinue and start trazodone. Patient has taken trazodone at home in the past. 04/03/2021- Patient seen resting in her room. She states she cannot sleep well. Melatonin was increased and scheduled for tonight. Will follow. UA reviewed and there is a likelihood of an infection. Will start Macrobid today and follow culture and sensitivities. Patient is appreciative and understands this plan. 04/02/21- Patient seen resting in her room. She is upset as she only has a few weeks of therapy left. She is very motivated to succeed and her goal is to walk out of here . Though she understands this may not be realistic. Continue to encourage and support her. She slept much better with the melatonin last night. Ongoing pain management. Patient felt that her urine was odorous. Will obtain a UA. 04/01/21- Patient seen resting in her room. She states she is doing okay. She states the ice to hershoulder blades helped tremendously. Continue ice as needed for comfort. Will add Melatonin to sleep regimen tonight. Continue to encourage p.o. intake. BP was elevated and her Midodrine was held this morning. However, patient states she was still slightly dizzy with therapy. Her pulse was also elevated. Increased blood pressure may be related to pain as well. Will adjust Midodrine. 03/31/21- Patient seen resting in her room. She states she is doing well. She is slightly discouraged because she wants to heal faster than she is. Continue to encourage and provide emotional support. Incision is healing nicely. Lidocaine patches are not providing relief for her neck muscles. Will discontinue and offer BenGay cream. Ongoing orthostatic hypotension. Intake and output is decent. Will review midodrine. 03/29/21- A.m. labs completed. Patient able to take a shower. Clemons catheter placed in an effort torest bladder. Good urine output. Pain in anterior neck and middle back scribed as tightness. No adverse neurologic changes. Continue inpatient rehab process cord injury. 03/28/21- Initiate rehab. Full medication reconciliation has occurred. Meds, labs, and vitals reviewed. VSS. 03/27/2021 - [facility] (Admission Data below) Assessment and Plan: Present on Admission: Debility-Rehab ??? Brown-Sequard syndrome- Flexeril, Gabapentin, Zanaflex ??? Neck pain ??? Cervical spondylosis with radiculopathy ??? Cord compression ??? HTN (hypertension) ??? GERD (gastroesophageal reflux disease) ??? Arthritis ??? Hyponatremia ??? Urinary retention ??? Neurological deficit present DVT PRX: Enoxaparin, SCDS Electrolyte derangement-Bind and Replenish Anemia-Follow H/H. Transfuse when clinically indicated Pain Control- titration throughout acute inpatient rehab process Nausea-Zofran prn Constipation-Bowel Regimen, follow output daily Polypharmacy-Follow. Medications fully reconciled Vitamin deficiency-Supplement Nursing Instructions: Incentive spirometry, I/O's, Vitals every 8 hours, Nutrition and ADLs Record Review: moderate Old medical records, labs, preadmission screening, previous radiology studies. Nutritional support and Blood sugar management - encourage adequate diet, caloric intake, fluid balance Avoid hypoglycemia Medication Profile: Allergies Allergen Reactions ??? Codeine Nausea and Vomiting ??? Oxycodone Nausea and Vomiting Scheduled Medication Profile: Facility-Administered Medications as of 04/13/2021 Medication Dose Frequency Provider Last Rate Last Admin ??? midodrine (PROAMATINE) tablet 10 mg 10 mg BID Yuliet Gomez NP 10 mg at 04/13/21 1111 ??? [Held by Provider] sodium chloride tablet 1 Gram 1 Gram BID WITH meals Yuliet Gomez NP 1Gram at 04/10/21 0806 ??? traZODone (DESYREL) tablet 50 mg 50 mg daily BEDTIME Yuliet Gomez NP 50 mg at 04/12/212044 ??? mkxwfgvhlb-pfazwmjsmjqom-ckirmgxn (FIORICET) 50-325-40 mg per tablet 1 Tablet 1 Tablet every 6 hours PRN Be Rangel, DO 1 Tablet at 04/13/21 1110 ??? [COMPLETED] nitrofurantoin (MACROBID) capsule 100 mg 100 mg BID WITH meals Yuliet Gomez NP 100 mg at 04/10/21 0806 ??? tiZANidine (ZANAFLEX) tablet 4 mg 4 mg every 6 hours PRN Be Rangel, DO 4 mg at 04/13/21 0249 ??? acetaminophen (TYLENOL) tablet 650 mg 650 mg every 4 hours PRN Be Rangel, DO 650 mg at 04/11/21 0227 ??? methyl salicylate-menthol (BENGAY) topical cream every 6 hours PRN Yuliet Gomez NP ??? bisacodyl (THE MAGIC BULLET) rectal suppository 10 mg 10 mg daily Be Rangel DO 10 mg at 04/12/212031 ??? gabapentin (NEURONTIN) capsule 200 mg 200 mg every 8 hours Yuliet Gomez NP 200 mg at 04/13/21 044 ??? docusate sodium (COLACE) capsule 100 mg 100 mg BID Yuliet Gomez NP 100 mg at 04/12/212044 ??? pantoprazole (PROTONIX) tablet 40 mg 40 mg daily BEFORE breakfast Yuliet Gomez NP 40 mg at 04/13/21 044 ??? polyethylene glycol (MIRALAX) packet 17 Gram 17 Gram daily Yuliet Gomez NP 17 Gram at 04/10/21 0805 ??? fludrocortisone (FLORINEF) tablet 0.2 mg 0.2 mg daily Yuilet Gomez NP 0.2 mg at 04/13/21 0915 ??? naloxone (NARCAN) 0.4 mg/mL injection 0.1 mg 0.1 mg see admin instructions Yuliet Gomez NP ??? ondansetron (ZOFRAN ODT) tablet 4 mg 4 mg every 6 hours PRN Yuliet Gomez NP 4 mg at 04/08/21 181 ??? prochlorperazine maleate (COMPAZINE) tablet 10 mg 10 mg every 6 hours PRN Yuliet Gomez NP ??? bisacodyL (DULCOLAX) delayed release tablet 5 mg 5 mg daily PRN Yuliet Gomez NP ??? calcium as carbonate (TUMS) 500 mg (200 mg elemental) chewable tablet 200 mg 200 mg every 4 hours PRN Yuliet Gomez NP ??? enoxaparin (LOVENOX) injection 40 mg 40 mg every 24 hours Yuliet Gomez NP 40 mg at 04/12/212043 Admission Data : 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 female who recently has been admitted to [facility] for comprehensive rehabilitation - multiple complex medical issues will impact medical management throughout the acute inpatient rehabilitation process. Pt has a significant medical history including but not limited to arthritis, GERD, and HTN. Pt presented to [facility] on 03/13 with c/o posterior headaches, neck pain, and R arm pain. She reported the pain as aching sharp pressure which has been ongoing for 3 months. She noted it is primarily located at the back of her neck, radiating into her posterior neck and off the R side into her shoulder and deltoid. Pt also reported numbness in 1st-3rd fingers on theright when sleeping, as well as intermittent sensation of both feet. Cervical MRI showed disc osteophyte at C4-5 on the right side causing severe neural foraminal stenosis as well as significant discbulge osteophyte on the left at C5-6, as well as mild cord compression at C4-5. There was also large disc herniation at T8 2-3 causing cord compression and T2 signal increase. Pt brought to OR and und erwent ACDF at C4/5 and C5/6 as well as posterior decompression/laminectomy at T2-[address] Patton. Pt tolerated procedure well. MRI and CT showed large calcified disc herniation at T2-3 unchanged, overall edema in cord at T2-3 slightly smaller than preop but seems brighter, correlating with BrownSequard syndrome. Myelogram on 03/17 did not show any significant residual or persistent cord compression. Pt experienced good return of function on right and some return of function on left. On Lovenox for dvt prx, can be fully AC. Pt began working with and tolerating therapy and has been deemed medically safe and appropriate for comprehensive rehab. PMR to have formal referral placed. Past Medical History: Diagnosis Date ??? Arthritis ??? GERD (gastroesophageal reflux disease) Difficulty taking NSAIDs. ??? HTN (hypertension) ??? Post-operative nausea and vomiting Past Surgical History: Procedure Laterality Date ??? ENDOSCOPY, UPPER GI ??? HX ANTERIOR CERVICAL DISCECTOMY W/ FUSION N/A 03/13/2021 CERVICAL DISCECTOMY FUSION 2 LEVEL ANTERIOR performed by Katherin Patton MD at [facility] ??? HX SECTION x 2 ??? HX COLONOSCOPY ??? HX HYSTERECTOMY ??? HX MENISCECTOMY Right N/A ??? MD FORREST W/O FACETEC FORAMOT/DSKC 1/2 VRT SEG, THORACIC N/A 03/13/2021 THORACIC LAMINECTOMY performed by Katherin Patton MD at [facility] Family History Problem Relation Name Age of Onset ??? Lung Cancer Father ??? Kidney Cancer Father ??? Hypertension Father ??? Other Father Tobacco Use ??? Cervical Cancer Mother ??? Hypertension Mother ??? Other Mother Tobacco Use ??? Breast Cancer Sister ??? Hypertension Sister ??? Hypertension Brother ??? Other Brother Tobacco Use ??? Stroke Maternal Grandmother ??? Other Maternal Grandfather Tobacco Use ??? Other Paternal Grandmother Tobacco Use ??? Lung Cancer Paternal Grandfather ??? Other Paternal Grandfather Tobacco Use ??? Breast Cancer Other Aunt Social History Tobacco Use ??? Smoking status: Former Smoker Packs/day: 0.50 Years: 5.00 Pack years: 2.50 Types: Cigarettes Quit date: 1980 Years since quittin.0 ??? Smokeless tobacco: Never Used Vaping Use ??? Vaping Use: Never used Substance Use Topics ??? Alcohol use: Never ??? Drug use: Never reports that she quit smoking about 42 years ago. Her smoking use included cigarettes. She has a 2.50 pack-year smoking history. She has never used smokeless tobacco. She reports that she does not drink alcohol and does not use drugs. Review of Systems: No new fever or chills, worsening cough or colds, chest pain No new abdominal pain, heat or cold intolerance weakness Objective Data: Vitals With Comments 04/13/2021 0426 04/13/2021 0248 04/12/2021 1913 04/12/2021 1300 BP: 147/77 134/74 148/80 138/68 Pulse: 77 79 75 81 Resp: 18 -- 18 18 Temp: 98.3 ??F (36.8 ??C) -- 98.5 ??F (36.9 ??C) 98.1 ??F (36.7 ??C) Temp src: Oral -- Oral Oral SpO2: 96 % -- 96 % 99 % 04/13 0700 - 04/13 1859 In: 360 [P.O.:360] Out: - General alert, awake, no cardiopulmonary distress, weakness Lungs Decreased breath sounds at bases- Heart regular rate and rhythm Abdomen soft, non-tender, with bowel sounds Extremities pulses noted, no cyanosis CBC result (most recent): Lab Results Component Value Date/Time WBC 3.1 (L) 2021 11:57 AM HGB 9.6 (L) 2021 11:57 AM HGBPOC 11.5 (L) 03/13/2021 02:58 PM HCT 30.8 (L) 2021 11:57 AM PLT 213 2021 11:57 AM MCV 94.5 2021 11:57 AM BMP result (most recent): Lab Results Component Value Date/Time NA 139 2021 11:57 AM K 3.7 2021 11:57 AM CL 103 2021 11:57 AM CO2 25 2021 11:57 AM CA 8.8 2021 11:57 AM BUN 23 2021 11:57 AM CREAT 0.79 2021 11:57 AM GLUCOSE 90 2021 11:57 AM ANIONGAP 11 2021 11:57 AM CMP result (most recent): Lab Results Component Value Date/Time NA 139 2021 11:57 AM K 3.7 2021 11:57 AM CL 103 2021 11:57 AM CO2 25 2021 11:57 AM CA 8.8 2021 11:57 AM BUN 23 2021 11:57 AM CREAT 0.79 2021 11:57 AM GLUCOSE 90 2021 11:57 AM TOTALPROTEIN 5.4 (L) 2021 11:57 AM ALBUMIN 3.1 (L) 2021 11:57 AM BILITOTAL 0.2 2021 11:57 AM ALKPHOS 91 2021 11:57 AM AST 16 2021 11:57 AM ALT 18 2021 11:57 AM ANIONGAP 11 2021 11:57 AM HEPATIC function panel result (most recent): Lab Results Component Value Date/Time ALT 18 2021 11:57 AM AST 16 2021 11:57 AM ALKPHOS 91 2021 11:57 AM Hemoglobin A1C result (most recent): No results found for: HGBA1C, [id number] LIPID panel result (most recent): No results found for: CHOLTOT, HDL, LDLCALC, LDLDIRECT, TRIGLYCERIDE UA results do not (most recent): Lab Results Component Value Date/Time PHUA 7.0 04/10/2021 05:16 PM SGUR 1.020 04/10/2021 05:16 PM URINELEUKOC Negative 04/10/2021 05:16 PM NITRITEUA Negative 04/10/2021 05:16 PM KETONEURINE Trace (A) 04/10/2021 05:16 PM PROTEINUA Negative 04/10/2021 05:16 PM GLUUA 3+ (A) 04/10/2021 05:16 PM BLOODUA Negative 04/10/2021 05:16 PM WBCU 51-100 (A) 04/02/2021 02:46 PM RBCUA 11-25 (A) 04/02/2021 02:46 PM BACTERIAUA 1+ (A) 04/02/2021 02:46 PM UREPITHELIAL 0-5 03/28/2021 01:24 AM Results for orders placed or performed during the hospital encounter of 03/13/21 EKG 12-LEAD Narrative Stationary ECG Study [facility] Test Date: 03/17/2021 7:05 PM Pat Name: VICK SIEGEL Department: 45 Room: On License Of [facility] Gender: F 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 Daily rounds include discussion of I and Os, avoiding hypotension and hypoglycemia. Daily medication review completed. Ongoing efforts to coordinate care, maintain euvolemia, adequate nutrition, electrolyte management, appropriate BP management, overall stability, and management of co-morbidites individually are being dictated by clinical progress. Documentation partially completed using dictation services and EMR. Please excuse any typographicalerrors that may have occurred. Reggie Johnson MD MMAKING SUPERVISOR * Molly Flores GN - 04/12/2021 5:19 PM CST Head-to-toe re-assessment observations documented in flowsheet. Any noted deviations from baseline observed in head-to-toe assessment: none Complaints of pain treated with PRN tizanadine, fiorcet. Clemons care preformed. Any abnormal VS requiring intervention or close monitoring: no Patient has had no falls at this time and is fall risk level/color yellow Interventions in Place: [x] Bed Alarm [] Clip Chair Alarm [x] Call Light within reach, return demo by patient completed [] Handoff patient when returning him/her to room [] Wheelchair/Walker out of reach [x] Low Bed [] Mats in Place [x] Fall Risk Magnet on Door [x] Fall Risk Magnet on Schedule Board [x] Fall Risk Armband on Patient [] Sitter [] Other If patient is red fall risk: [] Patient will not be left alone in bathroom [] Self-Releasing Belt (a one time order is required) [] Patient demonstrated ability to release wheelchair alarmed seatbelt. [] Observation Room Patient Education on Medications Education provided Re: Vick Siegel This education was provided to the patient Name of medication(s): all administered medications The education included the following: How to identify their medication, Administering their medication, Understanding the side effects oftheir medication MAX Cyr MMAKING SUPERVISOR * Reggie Johnson MD - 04/12/2021 11:56 AM CST Images from the original note were not included. Internal Medicine/Rehabilitation Service Patient: Vick Siegel Date of : 1955 Admission Date: (03/27/2021) Vitals With Comments 04/12/2021 0606 04/11/2021 1930 04/11/2021 1600 04/11/2021 1009 BP: 133/80 154/82 158/82 109/63 Pulse: 80 90 80 87 Resp: 18 18 16 18 Temp: 98.3 ??F (36.8 ??C) 98.3 ??F (36.8 ??C) 98.4 ??F (36.9 ??C) 98.1 ??F (36.7 ??C) Temp src: Oral Oral Oral Oral SpO2: 96 % 96 % 94 % 94 % DIET GENERAL Effective Now Full Code Timeline (including subjective): 04/12/21 - Am rounds completed- Covid precautions ongoing. Multiple medical issues as noted surrounding patient and internal medical oversight ongoing. Active med titration ongoing No new cardiopulmonary events overnight. Airway remains protected. No new adverse focal neurological deficits reportedor found on exam. Participating in therapies. Meds labs and vitals reviewed. Avoid hypotension. Serial labs ongoing. Titrate meds as dictated by clinical course. Feels well. Wants to do independent exercises. No new pain. Avoid hypotension. 04/11/21- Patient seen participating in therapies. She states she is doing okay. She had a headacheovernight into her neck.??Fioricet is providing relief. Repeat UA is negative and UTI has resolved.Salt tablets on hold and will repeat labs on Wednesday. 04/10/21- Patient seen participating in therapies. She states she is doing very well today. She continues to make progress in therapies and she is very motivated to succeed. Macrobid course completed; will repeat UA. Patient would like to trial off sodium chloride tablets. Will allow for this through the and repeat lab work Wednesday morning. Patient understands and agrees with this plan. Midodrine timing adjusted and blood pressure has remained stable. 04/09/21- Patient seen resting in her room. She states she is doing okay. Macrobid to end tomorrow.Will repeat UA after abx completion. Will adjust midodrine dosing. We will continue 10 mg at 0500 and 12:00. Patient's BP is spiking at night not requiring the midodrine. Patient is in agreement withthis plan. Labs reviewed; stable. Sodium stable at 139 though she has been receiving 2gm TID. Will decrease to 1gm BID. 04/08/21- Patient seen resting in her room. Her blood pressure is elevated at this time. Sodium to be held. Labs to be repeated in the morning. Midodrine was adjusted as she is very orthostatic with therapies. Ongoing daily adjustments. We will continue to have conversations with her daily. OngoingMacrobid for UTI. 04/07/21- Patient seen resting in her room. She states she is doing okay. She did not sleep well last night from being woken up to turn. We discussed sleep hygiene. Patient is able to move on her own. She understands when to prevent bedsores. Will order sleep hygiene moving forward. Ongoing Macrobid for positive UTI. No other complaints. 04/04/21- Patient seen resting in her room. She states she is a little tired as she just completed some therapy. She states she is doing well overall. Macrobid started yesterday for UTI. We will continue to follow culture and sensitivities and make changes as needed. Patient is still not sleeping despite melatonin. Will discontinue and start trazodone. Patient has taken trazodone at home in the past. 04/03/2021- Patient seen resting in her room. She states she cannot sleep well. Melatonin was increased and scheduled for tonight. Will follow. UA reviewed and there is a likelihood of an infection. Will start Macrobid today and follow culture and sensitivities. Patient is appreciative and understands this plan. 04/02/21- Patient seen resting in her room. She is upset as she only has a few weeks of therapy left. She is very motivated to succeed and her goal is to walk out of here . Though she understands this may not be realistic. Continue to encourage and support her. She slept much better with the melatonin last night. Ongoing pain management. Patient felt that her urine was odorous. Will obtain a UA. 04/01/21- Patient seen resting in her room. She states she is doing okay. She states the ice to hershoulder blades helped tremendously. Continue ice as needed for comfort. Will add Melatonin to sleep regimen tonight. Continue to encourage p.o. intake. BP was elevated and her Midodrine was held this morning. However, patient states she was still slightly dizzy with therapy. Her pulse was also elevated. Increased blood pressure may be related to pain as well. Will adjust Midodrine. 03/31/21- Patient seen resting in her room. She states she is doing well. She is slightly discouraged because she wants to heal faster than she is. Continue to encourage and provide emotional support. Incision is healing nicely. Lidocaine patches are not providing relief for her neck muscles. Will discontinue and offer BenGay cream. Ongoing orthostatic hypotension. Intake and output is decent. Will review midodrine. 03/29/21- A.m. labs completed. Patient able to take a shower. Clemons catheter placed in an effort torest bladder. Good urine output. Pain in anterior neck and middle back scribed as tightness. No adverse neurologic changes. Continue inpatient rehab process cord injury. 03/28/21- Initiate rehab. Full medication reconciliation has occurred. Meds, labs, and vitals reviewed. VSS. 03/27/2021 - Admission to Acute Rehabilitation [facility] - (Admission Data below) Assessment and Plan: Present on Admission: Debility-Rehab ??? Brown-Sequard syndrome- Flexeril, Gabapentin, Zanaflex ??? Neck pain ??? Cervical spondylosis with radiculopathy ??? Cord compression ??? HTN (hypertension) ??? GERD (gastroesophageal reflux disease) ??? Arthritis ??? Hyponatremia ??? Urinary retention ??? Neurological deficit present DVT PRX: Enoxaparin, SCDS Electrolyte derangement-Bind and Replenish Anemia-Follow H/H. Transfuse when clinically indicated Pain Control- titration throughout acute inpatient rehab process Nausea-Zofran prn Constipation-Bowel Regimen, follow output daily Polypharmacy-Follow. Medications fully reconciled Vitamin deficiency-Supplement Nursing Instructions: Incentive spirometry, I/O's, Vitals every 8 hours, Nutrition and ADLs Record Review: moderate Old medical records, labs, preadmission screening, previous radiology studies. Nutritional support and Blood sugar management - encourage adequate diet, caloric intake, fluid balance Avoid hypoglycemia Medication Profile: Allergies Allergen Reactions ??? Codeine Nausea and Vomiting ??? Oxycodone Nausea and Vomiting Scheduled Medication Profile: Facility-Administered Medications as of 04/12/2021 Medication Dose Frequency Provider Last Rate Last Admin ??? midodrine (PROAMATINE) tablet 10 mg 10 mg BID Viefhaus, Yuliet, INFRASTRUCTURE ARCHITECT 10 mg at 04/12/21 0615 ??? [Held by Provider] sodium chloride tablet 1 Gram 1 Gram BID WITH meals Yuliet Gomez NP 1 Gram at 04/10/21 08 ??? traZODone (DESYREL) tablet 50 mg 50 mg daily BEDTIME Yuliet Gomez, INFRASTRUCTURE ARCHITECT 50 mg at 04/11/212035 ??? koundovauq-nhkfcmjvtzurm-jvcdwxre (FIORICET) 50-325-40 mg per tablet 1 Tablet 1 Tablet every 6 hours PRN Be Rangel, DO 1 Tablet at 04/12/21 0844 ??? [COMPLETED] nitrofurantoin (MACROBID) capsule 100 mg 100 mg BID WITH meals Yuliet Gomez NP 100 mg at 04/10/21 08 ??? tiZANidine (ZANAFLEX) tablet 4 mg 4 mg every 6 hours PRN Be Rangel, DO 4 mg at 04/12/21607 ??? acetaminophen (TYLENOL) tablet 650 mg 650 mg every 4 hours PRN Be Rangel, DO 650 mg at 04/11/21 0227 ??? methyl salicylate-menthol (BENGAY) topical cream every 6 hours PRN Yuliet Gomez NP ??? bisacodyl (THE MAGIC BULLET) rectal suppository 10 mg 10 mg daily Be Rangel, DO 10 mg at 04/11/21 1930 ??? gabapentin (NEURONTIN) capsule 200 mg 200 mg every 8 hours Yuliet Gomez NP 200 mg at 04/12/21 0608 ??? docusate sodium (COLACE) capsule 100 mg 100 mg BID Yuliet Gomez, INFRASTRUCTURE ARCHITECT 100 mg at 04/11/212035 ??? pantoprazole (PROTONIX) tablet 40 mg 40 mg daily BEFORE breakfast Yuliet Gomez NP 40 mg at 04/12/21 0608 ??? polyethylene glycol (MIRALAX) packet 17 Gram 17 Gram daily Yuliet Gomez, FEI 17 Gram at 04/10/21 0805 ??? fludrocortisone (FLORINEF) tablet 0.2 mg 0.2 mg daily Yuliet Gomez NP 0.2 mg at 04/12/21 0845 ??? naloxone (NARCAN) 0.4 mg/mL injection 0.1 mg 0.1 mg see admin instructions Yuliet Gomez NP ??? ondansetron (ZOFRAN ODT) tablet 4 mg 4 mg every 6 hours PRN Yuliet Gomez NP 4 mg at 04/08/211812 ??? prochlorperazine maleate (COMPAZINE) tablet 10 mg 10 mg every 6 hours PRN Yuliet Gomez, FEI ??? bisacodyL (DULCOLAX) delayed release tablet 5 mg 5 mg daily PRN Yuliet Gomez NP ??? calcium as carbonate (TUMS) 500 mg (200 mg elemental) chewable tablet 200 mg 200 mg every 4 hours PRN Yuliet Gomez, FEI ??? enoxaparin (LOVENOX) injection 40 mg 40 mg every 24 hours Yuliet Gomez NP 40 mg at 04/11/212034 Admission Data : 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 female who recently has been admitted to [facility] for comprehensive rehabilitation - multiple complex medical issues will impact medical management throughout the acute inpatient rehabilitation process. Pt has a significant medical history including but not limitedto arthritis, GERD, and HTN. Pt presented to [facility] on 03/13 with c/o posterior headaches, neckpain, and R arm pain. She reported the pain as aching sharp pressure which has been ongoing for 3 months. She noted it is primarily located at the back of her neck, radiating into her posterior neck and off the R side into her shoulder and deltoid. Pt also reported numbness in 1st-3rd fingers on the right when sleeping, as well as intermittent sensation of both feet. Cervical MRI showed disc osteophyte at C4-5 on the right side causing severe neural foraminal stenosis as well as significant disc bulge osteophyte on the left at C5-6, as well as mild cord compression at C4-5. There was also large disc herniation at T8 2-3 causing cord compression and T2 signal increase. Pt brought to OR and un derwent ACDF at C4/5 and C5/6 as well as posterior decompression/laminectomy at T2-[address] Patton. Pt tolerated procedure well. MRI and CT showed large calcified disc herniation at T2-3 unchanged,overall edema in cord at T2-3 slightly smaller than preop but seems brighter, correlating with Brown Sequard syndrome. Myelogram on 03/17 did not show any significant residual or persistent cord compression. Pt experienced good return of function on right and some return of function on left. On Lovenox for dvt prx, can be fully AC. Pt began working with and tolerating therapy and has been deemed medically safe and appropriate for comprehensive rehab. PMR MD to have formal referral placed. Past Medical History: Diagnosis Date ??? Arthritis ??? GERD (gastroesophageal reflux disease) Difficulty taking NSAIDs. ??? HTN (hypertension) ??? Post-operative nausea and vomiting Past Surgical History: Procedure Laterality Date ??? ENDOSCOPY, UPPER GI ??? HX ANTERIOR CERVICAL DISCECTOMY W/ FUSION N/A 03/13/2021 CERVICAL DISCECTOMY FUSION 2 LEVEL ANTERIOR performed by Katherin Patton MD at [facility] OR [facility] ??? HX SECTION x 2 ??? HX COLONOSCOPY ??? HX HYSTERECTOMY ??? HX MENISCECTOMY Right N/A ??? MD FORREST W/O FACETEC FORAMOT/[facility] 04/13 VRT SEG, THORACIC N/A 03/13/2021 THORACIC LAMINECTOMY performed by Katherin Patton MD at [facility] Family History Problem Relation Name Age of Onset ??? Lung Cancer Father ??? Kidney Cancer Father ??? Hypertension Father ??? Other Father Tobacco Use ??? Cervical Cancer Mother ??? Hypertension Mother ??? Other Mother Tobacco Use ??? Breast Cancer Sister ??? Hypertension Sister ??? Hypertension Brother ??? Other Brother Tobacco Use ??? Stroke Maternal Grandmother ??? Other Maternal Grandfather Tobacco Use ??? Other Paternal Grandmother Tobacco Use ??? Lung Cancer Paternal Grandfather ??? Other Paternal Grandfather Tobacco Use ??? Breast Cancer Other Aunt Social History Tobacco Use ??? Smoking status: Former Smoker Packs/day: 0.50 Years: 5.00 Pack years: 2.50 Types: Cigarettes Quit date: 1979 Years since quittin.0 ??? Smokeless tobacco: Never Used Vaping Use ??? Vaping Use: Never used Substance Use Topics ??? Alcohol use: Never ??? Drug use: Never reports that she quit smoking about 42 years ago. Her smoking use included cigarettes. She has a 2.50 pack-year smoking history. She has never used smokeless tobacco. She reports that she does not drink alcohol and does not use drugs. Review of Systems: No new fever or chills, worsening cough or colds, chest pain No new abdominal pain, heat or cold intolerance weakness Objective Data: Vitals With Comments 04/12/2021 0606 04/11/2021 1930 04/11/2021 1600 04/11/2021 1009 BP: 133/80 154/82 158/82 109/63 Pulse: 80 90 80 87 Resp: 18 18 16 18 Temp: 98.3 ??F (36.8 ??C) 98.3 ??F (36.8 ??C) 98.4 ??F (36.9 ??C) 98.1 ??F (36.7 ??C) Temp src: Oral Oral Oral Oral SpO2: 96 % 96 % 94 % 94 % No intake/output data recorded. General alert, awake, no cardiopulmonary distress, weakness Lungs Decreased breath sounds at bases- Heart regular rate and rhythm Abdomen soft, non-tender, with bowel sounds Extremities pulses noted, no cyanosis CBC result (most recent): Lab Results Component Value Date/Time WBC 3.1 (L) 2021 11:57 AM HGB 9.6 (L) 2021 11:57 AM HGBPOC 11.5 (L) 03/13/2021 02:58 PM HCT 30.8 (L) 2021 11:57 AM PLT 213 2021 11:57 AM MCV 94.5 2021 11:57 AM BMP result (most recent): Lab Results Component Value Date/Time NA 139 2021 11:57 AM K 3.7 2021 11:57 AM CL 103 2021 11:57 AM CO2 25 2021 11:57 AM CA 8.8 2021 11:57 AM BUN 23 2021 11:57 AM CREAT 0.79 2021 11:57 AM GLUCOSE 90 2021 11:57 AM ANIONGAP 11 2021 11:57 AM CMP result (most recent): Lab Results Component Value Date/Time NA 139 2021 11:57 AM K 3.7 2021 11:57 AM CL 103 2021 11:57 AM CO2 25 2021 11:57 AM CA 8.8 2021 11:57 AM BUN 23 2021 11:57 AM CREAT 0.79 2021 11:57 AM GLUCOSE 90 2021 11:57 AM TOTALPROTEIN 5.4 (L) 2021 11:57 AM ALBUMIN 3.1 (L) 2021 11:57 AM BILITOTAL 0.2 2021 11:57 AM ALKPHOS 91 2021 11:57 AM AST 16 2021 11:57 AM ALT 18 2021 11:57 AM ANIONGAP 11 2021 11:57 AM HEPATIC function panel result (most recent): Lab Results Component Value Date/Time ALT 18 2021 11:57 AM AST 16 2021 11:57 AM ALKPHOS 91 2021 11:57 AM Hemoglobin A1C result (most recent): No results found for: HGBA1C, [id number] LIPID panel result (most recent): No results found for: CHOLTOT, HDL, LDLCALC, LDLDIRECT, TRIGLYCERIDE UA results do not (most recent): Lab Results Component Value Date/Time PHUA 7.0 04/10/2021 05:16 PM SGUR 1.020 04/10/2021 05:16 PM URINELEUKOC Negative 04/10/2021 05:16 PM NITRITEUA Negative 04/10/2021 05:16 PM KETONEURINE Trace (A) 04/10/2021 05:16 PM PROTEINUA Negative 04/10/2021 05:16 PM GLUUA 3+ (A) 04/10/2021 05:16 PM BLOODUA Negative 04/10/2021 05:16 PM WBCU 51-100 (A) 04/02/2021 02:46 PM RBCUA 11-25 (A) 04/02/2021 02:46 PM BACTERIAUA 1+ (A) 04/02/2021 02:46 PM UREPITHELIAL 0-5 03/28/2021 01:24 AM Results for orders placed or performed during the hospital encounter of 03/13/21 EKG 12-LEAD Narrative Stationary ECG Study [facility] Test Date: 03/17/2021 7:05 PM Pat Name: VICK SIEGEL Department: 45 Room: 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 Daily rounds include discussion of I and Os, avoiding hypotension and hypoglycemia. Daily medication review completed. Ongoing efforts to coordinate care, maintain euvolemia, adequate nutrition, electrolyte management, appropriate BP management, overall stability, and management of co-morbidites individually are being dictated by clinical progress. Documentation partially completed using dictation services and EMR. Please excuse any typographicalerrors that may have occurred. MD Reggie Warren MD Internal Medicine Director // MMAKING SUPERVISOR * Maxwell Russ RN - 04/12/2021 4:44 AM CST Shift Note: No acute events. Neuro: Alert and oriented x 4 CV: WDL Resp: room air GI: patient had last BM 04/11. : [place]mons Pain/Delirium/Sleep: denies pain Activity/turns: x1 assist per pt request Hourly rounding/bed alarm: yes/on Education: Patient educated on importance of q2 hour repositioning and use of positioning supports to prevent skin breakdown. Educated patient on high fall risk precautions, use of assistive devices,and use of call light. Explained that patient has increased risk of fall during hospitalization dueto, new medications and clinical status, and that patient should not attempt to get up without assistance from staff. Patient/family demonstrates understanding of stated education Patient has had no falls at this time and is fall risk level/color RED Interventions in Place: [x] Bed Alarm [] Clip Chair Alarm [x] Self-Releasing Belt (a one time order is required) [x] Call Light within reach, return demo by patient completed [] Handoff patient when returning him/her to room [x] Wheelchair/Walker out of reach [x] Low Bed [] Mats in Place [] Observation Room [x] Fall Risk Magnet on Door [x] Fall Risk Magnet on Schedule Board [x] Fall Risk Armband on Patient [] Sitter [] Other If patient is a red fall risk, do not leave alone in the bathroom. MMAKING SUPERVISOR * Reggie Johnson MD - 04/11/2021 10:47 AM CST Images from the original note were not included. Internal Medicine/Rehabilitation Service Patient: Vick Siegel Date of : 1955 Admission Date: (03/27/2021) Vitals With Comments 04/11/2021 1009 04/11/2021 0426 04/10/2021 1901 04/10/2021 1600 BP: 109/63 127/78 148/78 138/80 Pulse: 87 84 80 79 Resp: 18 18 18 18 Temp: 98.1 ??F (36.7 ??C) 98.1 ??F (36.7 ??C) 98.4 ??F (36.9 ??C) 98.2 ??F (36.8 ??C) Temp src: Oral Oral Oral Oral SpO2: 94 % 93 % 97 % 98 % DIET GENERAL Effective Now Full Code Timeline (including subjective): 04/11/21- Patient seen participating in therapies. She states she is doing okay. She had a headacheovernight into her neck.??Fioricet is providing relief. Repeat UA is negative and UTI has resolved.Salt tablets on hold and will repeat labs on Wednesday. 04/10/21- Patient seen participating in therapies. She states she is doing very well today. She continues to make progress in therapies and she is very motivated to succeed. Macrobid course completed; will repeat UA. Patient would like to trial off sodium chloride tablets. Will allow for this through the weekend and repeat lab work Wednesday morning. Patient understands and agrees with this plan. Midodrine timing adjusted and blood pressure has remained stable. 04/09/21- Patient seen resting in her room. She states she is doing okay. Macrobid to end tomorrow.Will repeat UA after abx completion. Will adjust midodrine dosing. We will continue 10 mg at 0500 and 12:00. Patient's BP is spiking at night not requiring the midodrine. Patient is in agreement withthis plan. Labs reviewed; stable. Sodium stable at 139 though she has been receiving 2gm TID. Will decrease to 1gm BID. 04/08/21- Patient seen resting in her room. Her blood pressure is elevated at this time. Sodium to be held. Labs to be repeated in the morning. Midodrine was adjusted as she is very orthostatic with therapies. Ongoing daily adjustments. We will continue to have conversations with her daily. OngoingMacrobid for UTI. 04/07/21- Patient seen resting in her room. She states she is doing okay. She did not sleep well last night from being woken up to turn. We discussed sleep hygiene. Patient is able to move on her own. She understands when to prevent bedsores. Will order sleep hygiene moving forward. Ongoing Macrobid for positive UTI. No other complaints. 04/04/21- Patient seen resting in her room. She states she is a little tired as she just completed some therapy. She states she is doing well overall. Macrobid started yesterday for UTI. We will continue to follow culture and sensitivities and make changes as needed. Patient is still not sleeping despite melatonin. Will discontinue and start trazodone. Patient has taken trazodone at home in the past. 04/03/2021- Patient seen resting in her room. She states she cannot sleep well. Melatonin was increased and scheduled for tonight. Will follow. UA reviewed and there is a likelihood of an infection. Will start Macrobid today and follow culture and sensitivities. Patient is appreciative and understands this plan. 04/02/21- Patient seen resting in her room. She is upset as she only has a few weeks of therapy left. She is very motivated to succeed and her goal is to walk out of here . Though she understands this may not be realistic. Continue to encourage and support her. She slept much better with the melatonin last night. Ongoing pain management. Patient felt that her urine was odorous. Will obtain a UA. 04/01/21- Patient seen resting in her room. She states she is doing okay. She states the ice to hershoulder blades helped tremendously. Continue ice as needed for comfort. Will add Melatonin to sleep regimen tonight. Continue to encourage p.o. intake. BP was elevated and her Midodrine was held this morning. However, patient states she was still slightly dizzy with therapy. Her pulse was also elevated. Increased blood pressure may be related to pain as well. Will adjust Midodrine. 03/31/21- Patient seen resting in her room. She states she is doing well. She is slightly discouraged because she wants to heal faster than she is. Continue to encourage and provide emotional support. Incision is healing nicely. Lidocaine patches are not providing relief for her neck muscles. Will discontinue and offer BenGay cream. Ongoing orthostatic hypotension. Intake and output is decent. Will review midodrine. 03/29/21- A.m. labs completed. Patient able to take a shower. Clemons catheter placed in an effort torest bladder. Good urine output. Pain in anterior neck and middle back scribed as tightness. No adverse neurologic changes. Continue inpatient rehab process cord injury. 03/28/21- Initiate rehab. Full medication reconciliation has occurred. Meds, labs, and vitals reviewed. VSS. 03/27/2021 - [facility] - (Admission Data below) Assessment and Plan: Present on Admission: Debility-Rehab ??? Brown-Sequard syndrome- Flexeril, Gabapentin, Zanaflex ??? Neck pain ??? Cervical spondylosis with radiculopathy ??? Cord compression ??? HTN (hypertension) ??? GERD (gastroesophageal reflux disease) ??? Arthritis ??? Hyponatremia ??? Urinary retention ??? Neurological deficit present DVT PRX: Enoxaparin, SCDS Electrolyte derangement-Bind and Replenish Anemia-Follow H/H. Transfuse when clinically indicated Pain Control- titration throughout acute inpatient rehab process Nausea-Zofran prn Constipation-Bowel Regimen, follow output daily Polypharmacy-Follow. Medications fully reconciled Vitamin deficiency-Supplement Nursing Instructions: Incentive spirometry, I/O's, Vitals every 8 hours, Nutrition and ADLs Record Review: moderate Old medical records, labs, preadmission screening, previous radiology studies. Nutritional support and Blood sugar management - encourage adequate diet, caloric intake, fluid balance Avoid hypoglycemia Medication Profile: Allergies Allergen Reactions ??? Codeine Nausea and Vomiting ??? Oxycodone Nausea and Vomiting Scheduled Medication Profile: Facility-Administered Medications as of 04/11/2021 Medication Dose Frequency Provider Last Rate Last Admin ??? midodrine (PROAMATINE) tablet 10 mg 10 mg BID Yuliet Gomez NP 10 mg at 04/11/21 0549 ??? [Held by Provider] sodium chloride tablet 1 Gram 1 Gram BID WITH meals Yuliet Gomez, FEI 1 Gram at 04/10/21 0806 ??? traZODone (DESYREL) tablet 50 mg 50 mg daily BEDTIME Yuliet Gomez NP 50 mg at 04/10/212001 ??? igkmjraeks-nkssscukftpfe-jjrepmhj (FIORICET) 50-325-40 mg per tablet 1 Tablet 1 Tablet every 6 hours PRN Be Rangel, DO 1 Tablet at 04/11/21 0724 ??? [COMPLETED] nitrofurantoin (MACROBID) capsule 100 mg 100 mg BID WITH meals Yuliet Gomez, FEI 100 mg at 04/10/21 0806 ??? tiZANidine (ZANAFLEX) tablet 4 mg 4 mg every 6 hours PRN Be Rangel, DO 4 mg at 04/11/21 0721 ??? acetaminophen (TYLENOL) tablet 650 mg 650 mg every 4 hours PRN Be Rangel, DO 650 mg at 04/11/21 0227 ??? methyl salicylate-menthol (BENGAY) topical cream every 6 hours PRN Yuliet Gomez NP ??? bisacodyl (THE MAGIC BULLET) rectal suppository 10 mg 10 mg daily Be Rangel DO 10 mg at 04/10/21 1900 ??? gabapentin (NEURONTIN) capsule 200 mg 200 mg every 8 hours Yuliet Gomez NP 200 mg at 04/11/21 0549 ??? docusate sodium (COLACE) capsule 100 mg 100 mg BID Yuliet Gomez NP 100 mg at 04/11/21 1005 ??? pantoprazole (PROTONIX) tablet 40 mg 40 mg daily BEFORE breakfast Yuliet Gomez NP 40 mg at 04/11/21 0549 ??? polyethylene glycol (MIRALAX) packet 17 Gram 17 Gram daily Yuliet Gomez NP 17 Gram at 04/10/21 0805 ??? fludrocortisone (FLORINEF) tablet 0.2 mg 0.2 mg daily Yuliet Gomez NP 0.2 mg at 04/11/21 1004 ??? naloxone (NARCAN) 0.4 mg/mL injection 0.1 mg 0.1 mg see admin instructions Yuliet Gomez NP ??? ondansetron (ZOFRAN ODT) tablet 4 mg 4 mg every 6 hours PRN Yuliet Gomez NP 4 mg at 04/08/21 1813 ??? prochlorperazine maleate (COMPAZINE) tablet 10 mg 10 mg every 6 hours PRN Yuliet Gomez NP ??? bisacodyL (DULCOLAX) delayed release tablet 5 mg 5 mg daily PRN Yuliet Gomez NP ??? calcium as carbonate (TUMS) 500 mg (200 mg elemental) chewable tablet 200 mg 200 mg every 4 hours PRN Yuliet Gomez NP ??? enoxaparin (LOVENOX) injection 40 mg 40 mg every 24 hours Yuliet Gomez NP 40 mg at 04/10/212000 Admission Data : 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 female who recently has been admitted to [facility] for comprehensive rehabilitation - multiple complex medical issues will impact medical management throughout the acute inpatient rehabilitation process. Pt has a significant medical history including but not limited to arthritis, GERD, and HTN. Pt presented to [facility] on 03/13 with c/o posterior headaches, neck pain, and R arm pain. She reported the pain as aching sharp pressure which has been ongoing for 3 months. She noted it is primarily located at the back of her neck, radiating into her posterior neck and off the R side into her shoulder and deltoid. Pt also reported numbness in 1st-3rd fingers on theright when sleeping, as well as intermittent sensation of both feet. Cervical MRI showed disc osteophyte at C4-5 on the right side causing severe neural foraminal stenosis as well as significant discbulge osteophyte on the left at C5-6, as well as mild cord compression at C4-5. There was also large disc herniation at T8 2-3 causing cord compression and T2 signal increase. Pt brought to OR and und erwent ACDF at C4/5 and C5/6 as well as posterior decompression/laminectomy at T2-[address] Patton. Pt tolerated procedure well. MRI and CT showed large calcified disc herniation at T2-3 unchanged, overall edema in cord at T2-3 slightly smaller than preop but seems brighter, correlating with BrownSequard syndrome. Myelogram on 03/17 did not show any significant residual or persistent cord compression. Pt experienced good return of function on right and some return of function on left. On Lovenox for dvt prx, can be fully AC. Pt began working with and tolerating therapy and has been deemed medically safe and appropriate for comprehensive rehab. PMR MD to have formal referral placed. Past Medical History: Diagnosis Date ??? Arthritis ??? GERD (gastroesophageal reflux disease) Difficulty taking NSAIDs. ??? HTN (hypertension) ??? Post-operative nausea and vomiting Past Surgical History: Procedure Laterality Date ??? ENDOSCOPY, UPPER GI ??? HX ANTERIOR CERVICAL DISCECTOMY W/ FUSION N/A 03/13/2021 CERVICAL DISCECTOMY FUSION 2 LEVEL ANTERIOR performed by Katherin Patton MD at [facility] ??? HX SECTION x 2 ??? HX COLONOSCOPY ??? HX HYSTERECTOMY ??? HX MENISCECTOMY Right N/A ??? MD FORREST W/O FACETEC FORAMOT/[facility] 04/13 VRT SEG, THORACIC N/A 03/13/2021 THORACIC LAMINECTOMY performed by Katherin Patton MD at [facility] Family History Problem Relation Name Age of Onset ??? Lung Cancer Father ??? Kidney Cancer Father ??? Hypertension Father ??? Other Father Tobacco Use ??? Cervical Cancer Mother ??? Hypertension Mother ??? Other Mother Tobacco Use ??? Breast Cancer Sister ??? Hypertension Sister ??? Hypertension Brother ??? Other Brother Tobacco Use ??? Stroke Maternal Grandmother ??? Other Maternal Grandfather Tobacco Use ??? Other Paternal Grandmother Tobacco Use ??? Lung Cancer Paternal Grandfather ??? Other Paternal Grandfather Tobacco Use ??? Breast Cancer Other Aunt Social History Tobacco Use ??? Smoking status: Former Smoker Packs/day: 0.50 Years: 5.00 Pack years: 2.50 Types: Cigarettes Quit date: 1980 Years since quittin.0 ??? Smokeless tobacco: Never Used Vaping Use ??? Vaping Use: Never used Substance Use Topics ??? Alcohol use: Never ??? Drug use: Never reports that she quit smoking about 42 years ago. Her smoking use included cigarettes. She has a 2.50 pack-year smoking history. She has never used smokeless tobacco. She reports that she does not drink alcohol and does not use drugs. Review of Systems: No new fever or chills, worsening cough or colds, chest pain No new abdominal pain, heat or cold intolerance weakness Objective Data: Vitals With Comments 04/11/2021 1009 04/11/2021 0426 04/10/2021 1901 04/10/2021 1600 BP: 109/63 127/78 148/78 138/80 Pulse: 87 84 80 79 Resp: 18 18 18 18 Temp: 98.1 ??F (36.7 ??C) 98.1 ??F (36.7 ??C) 98.4 ??F (36.9 ??C) 98.2 ??F (36.8 ??C) Temp src: Oral Oral Oral Oral SpO2: 94 % 93 % 97 % 98 % 04/11 0700 - 04/11 1859 In: 240 [P.O.:240] Out: - General alert, awake, no cardiopulmonary distress, weakness Lungs Decreased breath sounds at bases- Heart regular rate and rhythm Abdomen soft, non-tender, with bowel sounds Extremities pulses noted, no cyanosis CBC result (most recent): Lab Results Component Value Date/Time WBC 3.1 (L) 2021 11:57 AM HGB 9.6 (L) 2021 11:57 AM HGBPOC 11.5 (L) 03/13/2021 02:58 PM HCT 30.8 (L) 2021 11:57 AM PLT 213 2021 11:57 AM MCV 94.5 2021 11:57 AM BMP result (most recent): Lab Results Component Value Date/Time NA 139 2021 11:57 AM K 3.7 2021 11:57 AM CL 103 2021 11:57 AM CO2 25 2021 11:57 AM CA 8.8 2021 11:57 AM BUN 23 2021 11:57 AM CREAT 0.79 2021 11:57 AM GLUCOSE 90 2021 11:57 AM ANIONGAP 11 2021 11:57 AM CMP result (most recent): Lab Results Component Value Date/Time NA 139 2021 11:57 AM K 3.7 2021 11:57 AM CL 103 2021 11:57 AM CO2 25 2021 11:57 AM CA 8.8 2021 11:57 AM BUN 23 2021 11:57 AM CREAT 0.79 2021 11:57 AM GLUCOSE 90 2021 11:57 AM TOTALPROTEIN 5.4 (L) 2021 11:57 AM ALBUMIN 3.1 (L) 2021 11:57 AM BILITOTAL 0.2 2021 11:57 AM ALKPHOS 91 2021 11:57 AM AST 16 2021 11:57 AM ALT 18 2021 11:57 AM ANIONGAP 11 2021 11:57 AM HEPATIC function panel result (most recent): Lab Results Component Value Date/Time ALT 18 2021 11:57 AM AST 16 2021 11:57 AM ALKPHOS 91 2021 11:57 AM Hemoglobin A1C result (most recent): No results found for: HGBA1C, [id number] LIPID panel result (most recent): No results found for: CHOLTOT, HDL, LDLCALC, LDLDIRECT, TRIGLYCERIDE UA results do not (most recent): Lab Results Component Value Date/Time PHUA 7.0 04/10/2021 05:16 PM SGUR 1.020 04/10/2021 05:16 PM URINELEUKOC Negative 04/10/2021 05:16 PM NITRITEUA Negative 04/10/2021 05:16 PM KETONEURINE Trace (A) 04/10/2021 05:16 PM PROTEINUA Negative 04/10/2021 05:16 PM GLUUA 3+ (A) 04/10/2021 05:16 PM BLOODUA Negative 04/10/2021 05:16 PM WBCU 51-100 (A) 04/02/2021 02:46 PM RBCUA 11-25 (A) 04/02/2021 02:46 PM BACTERIAUA 1+ (A) 04/02/2021 02:46 PM UREPITHELIAL 0-5 03/28/2021 01:24 AM Results for orders placed or performed during the hospital encounter of 03/13/21 EKG 12-LEAD Narrative Stationary ECG Study [facility] Test Date: 03/17/2021 7:05 PM Pat Name: VICK SIEGEL Department: 45 Room: 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 Daily rounds include discussion of I and Os, avoiding hypotension and hypoglycemia. Daily medication review completed. Ongoing efforts to coordinate care, maintain euvolemia, adequate nutrition, electrolyte management, appropriate BP management, overall stability, and management of co-morbidites individually are being dictated by clinical progress. Documentation partially completed using dictation services and EMR. Please excuse any typographicalerrors that may have occurred. FEI Titus MD Internal Medicine Director // MMAKING SUPERVISOR * Kami Cazares LPN - 04/10/2021 11:26 PM CST End of shift note: Received bedside report and assumed care of Pt Radha Garrido RN at 2230. Neuro/Psych: A/Ox4 speech clear and appropriate, able to make needs known. Resp/CV: Respirations even and regular, no s/sx SOB or dyspnea noted GI/: Clemons cath patent draining clear yellow urine to gravity Bowel routine completed per orders Skin/Wound: Skin remains warm, dry, and intact., No significant changes Pain: Denies c/o pain this shift General: Slept well throughout the night with no significant changes in condition. Fall precautionsmaintained with call light and personal items in reach and bed low with wheels locked. Will continue to monitor and report to oncoming nurse. Pending labs/procedures/other: None Patient has had no falls at this time and is fall risk level/color YELLOW Interventions in Place: [x] Bed Alarm [] Clip Chair Alarm [] Self-Releasing Belt (a one time order is required) [x] Call Light within reach, return demo by patient completed [] Handoff patient when returning him/her to room [x] Wheelchair/Walker out of reach [] Low Bed [] Mats in Place [] Observation Room [x] Fall Risk Magnet on Door [x] Fall Risk Magnet on Schedule Board [x] Fall Risk Armband on Patient [] Sitter [] Other If patient is a red fall risk, do not leave alone in the bathroom. Patient Education on Medications Education provided Re: Vick Siegel This education was provided to the patient Name of medication: All medications given during shift The education included the following: Administering their medication Kami Cazares LPN MMAKING SUPERVISOR * Be Rangel DO - 04/10/2021 11:41 AM CST Images from the original note were not included. Physical Medicine and Rehabilitation Progress Note Admission Date: 03/27/2021 Length of stay: 14 days Patient: Vick Siegel Chief complaint: I am great Subjective: Patient seen and examined during morning rounds. She reports her blood pressure has been more stable last 24 hours or so. She feels her left leg strength might be improving. Leg media executive's have been helpful for bed mobility. She still wants to work on her transfers. Tolerating therapies. Last Bowel Movement (mm/dd/yyyy): 04/09/21 (04/09/211922) ROS: As per HPI and: No fever, chills, chest pain, shortness of breath, or cough. Social History: Lives alone in a 1 level home with 1-2 steps to enter Medications reviewed. Current Facility-Administered Medications: ??? midodrine (PROAMATINE) tablet 10 mg, 10 mg, Oral, BID, Yuliet Gomez NP, 10 mg at 609 ??? sodium chloride tablet 1 Gram, 1 Gram, Oral, BID WITH meals, Yuliet Gomez NP, 1 Gram at 04/10/21 0806 ??? [DISCONTINUED] midodrine (PROAMATINE) tablet 10 mg, 10 mg, Oral, TID, Be Rangel DO,10 mg at 04/09/21 1249 ??? traZODone (DESYREL) tablet 50 mg, 50 mg, Oral, daily BEDTIME, Yuliet Gomez NP, 50 mg at 04/09/212116 ??? cdaiahgjbe-ihaejbisdwemi-xzracumf (FIORICET) 50-325-40 mg per tablet 1 Tablet, 1 Tablet, Oral, every 6 hours PRN, Be Rangel DO, 1 Tablet at 04/08/212006 ??? [COMPLETED] nitrofurantoin (MACROBID) capsule 100 mg, 100 mg, Oral, BID WITH meals, Yuliet Gomez NP, 100 mg at 04/10/21 0806 ??? tiZANidine (ZANAFLEX) tablet 4 mg, 4 mg, Oral, every 6 hours PRN, Be Rangel DO, 4 mg at 04/10/21 0912 ??? acetaminophen (TYLENOL) tablet 650 mg, 650 mg, Oral, every 4 hours PRN, Be Rangel DO, 650 mg at 04/09/21 1921 ??? methyl salicylate-menthol (BENGAY) topical cream, , Topical, every 6 hours PRN, Yuliet Gomez NP ??? bisacodyl (THE MAGIC BULLET) rectal suppository 10 mg, 10 mg, Rectal, daily, Brenton Rangel DO, 10 mg at 04/09/21 1900 ??? gabapentin (NEURONTIN) capsule 200 mg, 200 mg, Oral, every 8 hours, Yuliet Gomez NP, 200 mg at 04/10/21 0609 ??? docusate sodium (COLACE) capsule 100 mg, 100 mg, Oral, BID, Yuliet Gomez NP, 100 mg at 04/10/21 0806 ??? pantoprazole (PROTONIX) tablet 40 mg, 40 mg, Oral, daily BEFORE breakfast, Yuliet Gomez NP, 40 mg at 04/10/21 0609 ??? polyethylene glycol (MIRALAX) packet 17 Gram, 17 Gram, Oral, daily, Yuliet Gomez NP, 17 Gram at 04/10/21 0805 ??? fludrocortisone (FLORINEF) tablet 0.2 mg, 0.2 mg, Oral, daily, Yuliet Gomez NP, 0.2 mg at1 0806 ??? naloxone (NARCAN) 0.4 mg/mL injection 0.1 mg, 0.1 mg, IV, see admin instructions, Yuliet Gomez NP ??? ondansetron (ZOFRAN ODT) tablet 4 mg, 4 mg, Oral, every 6 hours PRN, Yuliet Gomez NP, 4 mg at 04/08/21 1813 ??? prochlorperazine maleate (COMPAZINE) tablet 10 mg, 10 mg, Oral, every 6 hours PRN, Yuliet Gomez, INFRASTRUCTURE ARCHITECT ??? bisacodyL (DULCOLAX) delayed release tablet 5 mg, 5 mg, Oral, daily PRN, Yuliet Gomez, INFRASTRUCTURE ARCHITECT ??? calcium as carbonate (TUMS) 500 mg (200 mg elemental) chewable tablet 200 mg, 200 mg, Oral, every 4 hours PRN, Yuliet Gomez, INFRASTRUCTURE ARCHITECT ??? enoxaparin (LOVENOX) injection 40 mg, 40 mg, subCUT, every 24 hours, Yuliet Gomez, FEI, 40 mg at 04/09/21 2116 ??? [DISCONTINUED] sodium chloride tablet 2 Gram, 2 Gram, Oral, every 8 hours, Yuliet Gomez NP, 2 Gram at 04/08/21 0555 Objective: Vitals: BP 115/73 Pulse (!) 102 Temp 97.8 ??F (36.6 ??C) (Oral) Resp 18 Ht 5' 3 (1.6 m) Wt 83.9 kg (185 lb) SpO2 95% BMI 32.77 kg/m?? General:alert, no distress and cooperative Lungs: normal respiratory effort. Ext: No significant calf/ankle edema. Neuro: CN II-XII grossly intact, no facial droop Psyche: Mood is appropriate to circumstances. Affect is Euthymic Incision: Data Review: Results for orders placed or performed during the hospital encounter of 03/27/21 (from the past 24 hour(s)) CBC WITH DIFFERENTIAL Result Value Ref Range WBC 3.1 (L) 4.0 - 9.8 K/uL RBC 3.26 (L) 3.90 - 4.90 M/uL HEMOGLOBIN 9.6 (L) 11.8 - 14.8 g/dL HEMATOCRIT 30.8 (L) 35.5 - 44.0 % MCV 94.5 82.0 - 99.0 fL MCH 29.4 27.2 - 32.6 pg MCHC 31.2 (L) 31.5 - 35.5 g/dL RDW 13.7 11.5 - 14.5 % RDW-STDEV 47.0 37.1 - 48.7 fL PLATELETS 213 140 - 350 K/uL MPV 10.2 9.3 - 12.4 fL NEUTROPHILS 48 % LYMPHOCYTES 38 % MONOCYTES 14 % EOSINOPHILS 0 % BASOPHILS 0 % IMMATURE GRANULOCYTES 1 % NEUTROPHIL ABSOLUTE 1.50 (L) 1.90 - 7.00 K/uL LYMPHOCYTE ABSOLUTE 1.17 0.70 - 4.50 K/uL MONOCYTE ABSOLUTE 0.42 0.10 - 1.30 K/uL EOSINOPHIL ABSOLUTE 0.00 0.00 - 0.70 K/uL BASOPHILS ABSOLUTE 0.00 0.00 - 0.20 K/uL IMMATURE GRANULOCYTES ABSOLUTE 0.02 0.00 - 0.03 K/uL COMPREHENSIVE METABOLIC PANEL Result Value Ref Range SODIUM 139 136 - 145 mmol/L POTASSIUM 3.7 3.5 - 5.0 mmol/L CHLORIDE 103 98 - 107 mmol/L CO2 25 22 - 29 mmol/L CALCIUM 8.8 8.6 - 10.2 mg/dL BUN 23 8 - 23 mg/dL CREATININE 0.79 0.51 - 0.95 mg/dL GLUCOSE 90 74 - 99 mg/dL TOTAL PROTEIN 5.4 (L) 6.7 - 8.6 g/dL ALBUMIN 3.1 (L) 3.5 - 5.2 g/dL BILIRUBIN TOTAL 0.2 0.2 - 1.1 mg/dL ALKALINE PHOSPHATASE 91 35 - 104 U/L AST 16 <33 U/L ALT 18 <34 U/L GFR >60 mL/min/1.73 sq meter GFR, >60 mL/min/1.73 sq meter ANION GAP 11 8 - 16 mmol/L C-REACTIVE PROTEIN Result Value Ref Range CRP <3.0 <5.0 mg/L MAGNESIUM LEVEL Result Value Ref Range MAGNESIUM 2.1 1.6 - 2.4 mg/dL PHOSPHORUS Result Value Ref Range PHOSPHORUS 5.1 (H) 2.5 - 4.5 mg/dL ASSESSMENT/PLAN: Patient is a 66 y.o. female who underwent C4-6 ACDF and T2-T3 laminectomy on 03/13/[address] 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 Functional status:Therapy progress noted today: -Discussed in team conference with nursing, therapyand rental boats caretaker. See note for details. Highlights include: Date of Conference: 04/08/21 Barriers to Discharge: Patient apprehension, Caregiver apprehension, Home entry, Bedroom/bathroom accessibility, Limited strength, balance, endurance, Requires caregiver assist, Functioning at wheelchair level, Lives alone and Limited caregiver availability Driver/Guide: Lorinkashif Munoz DC Date: 04/15 PT/OT/Aide Activities of Daily Living Feeding: ind Grooming: ind Bathing: wes Upper Body Dressing: wes Lower Body Dressing: wes Toileting: total Toilet transfers: maxa Mobility Bed mobility: Max assist for sit to lying transfers and lying to sitting edge of bed transfers Transfers: mod-maxa slide board transfers Wheelchair mobility: 150 feet SBA manual WC Progress toward goals and modifications to course of treatment: Utilization of a leg media executive is to help with bed mobility Patient reports: Improving symptoms of orthostatic hypotension ?? Rehab: -Impairments: Gait, function, self-care, mobility, ADLs - Initiate PT/OT rehabilitation nursing, recreation therapy, and social security assessor. -Isolation: None -Precautions: None -Pain: As needed Tylenol. Gabapentin. Tizanidine. Fioricet for headache -Fall prevention: Education and therapies ?? Neurogenic bladder: UA positive. Macrobid ?? Neurogenic bowel: Bowel routine with Magic bullet. Colace, MiraLAX ?? Skin/Wound Care: Monitor surgical incision for proper healing Mobility Today???s visit is specifically in regards to the patient???s need for an ultra- lightweight manual wheelchair. This device is necessary to access patient???s home to complete feeding, toileting, and dressing as well as other activities of daily living due to complex needs. Patient is functionally and safely non- ambulatory as she cannot ambulate any distance without assist, even with an ambulatoryaide and he is unable to functionally propel all lesser costly manual wheelchairs in home setting for MRADL???s due to impaired strength and activity tolerance d/t recent spinal cord injury. Patient presents with sufficient strength to propel an ultra lightweight manual wheelchair and it can be conf igured to meet her functional needs and anatomical dimensions. 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 A special mobility assessment has been completed to determine optimum mobilitysystem with detailed recommendations and I concur with those recommendations. Sleep: Melatonin ?? Prophylaxis/Prevention: DVT: Lovenox GI: Protonix ?? Medical History/Active Issues: To be managed by primary medicine team Orthostatic hypotension: Bella Moore. Adjustments ongoing Hyponatremia: Salt tabs ?? FEN: DIET GENERAL Effective Now -Replete electrolytes as needed - Continue vitamins/supplements -Periodic labs, monitor trends ?? Disposition: -Anticipated location: Home -ELOS: 28 days -Code Status: Full Code ? F/U appts: -Huang Alonso MD after discharge from rehab -Dr. Patton -Rehab Discussed with medicine 04/10/2021 Electronically Signed By: Be Rangel DO ATTESTATION STATEMENTS Portions of this note were transcribed using [employer] computerized voice recognition without a human social insurance analyst. This report may or may not have been adjusted for typographical, grammatical and syntax errors or malapropisms. MMAKING SUPERVISOR * Reggie Johnson MD - 04/10/2021 11:19 AM CST Images from the original note were not included. Internal Medicine/Rehabilitation Service Patient: Vick Siegel Date of : 1955 Admission Date: (03/27/2021) Vitals With Comments 04/10/2021 0912 04/10/2021 0803 04/10/2021 0516 2021 1923 BP: 115/73 134/73 138/79 159/86 Pulse: 102 86 87 95 Resp: -- -- 18 18 Temp: -- -- 97.8 ??F (36.6 ??C) 98.9 ??F (37.2 ??C) Temp src: -- -- Oral Oral SpO2: -- -- 95 % 96 % DIET GENERAL Effective Now Full Code Timeline (including subjective): 04/10/21- Patient seen participating in therapies. She states she is doing very well today. She continues to make progress in therapies and she is very motivated to succeed. Macrobid course completed; will repeat UA. Patient would like to trial off sodium chloride tablets. Will allow for this through the weekend and repeat lab work Wednesday morning. Patient understands and agrees with this plan. Midodrine timing adjusted and blood pressure has remained stable. 04/09/21- Patient seen resting in her room. She states she is doing okay. Macrobid to end tomorrow.Will repeat UA after abx completion. Will adjust midodrine dosing. We will continue 10 mg at 0500 and 12:00. Patient's BP is spiking at night not requiring the midodrine. Patient is in agreement withthis plan. Labs reviewed; stable. Sodium stable at 139 though she has been receiving 2gm TID. Will decrease to 1gm BID. 04/08/21- Patient seen resting in her room. Her blood pressure is elevated at this time. Sodium to be held. Labs to be repeated in the morning. Midodrine was adjusted as she is very orthostatic with therapies. Ongoing daily adjustments. We will continue to have conversations with her daily. OngoingMacrobid for UTI. 04/07/21- Patient seen resting in her room. She states she is doing okay. She did not sleep well last night from being woken up to turn. We discussed sleep hygiene. Patient is able to move on her own. She understands when to prevent bedsores. Will order sleep hygiene moving forward. Ongoing Macrobid for positive UTI. No other complaints. 04/04/21- Patient seen resting in her room. She states she is a little tired as she just completed some therapy. She states she is doing well overall. Macrobid started yesterday for UTI. We will continue to follow culture and sensitivities and make changes as needed. Patient is still not sleeping despite melatonin. Will discontinue and start trazodone. Patient has taken trazodone at home in the past. 04/03/2021- Patient seen resting in her room. She states she cannot sleep well. Melatonin was increased and scheduled for tonight. Will follow. UA reviewed and there is a likelihood of an infection. Will start Macrobid today and follow culture and sensitivities. Patient is appreciative and understands this plan. 04/02/21- Patient seen resting in her room. She is upset as she only has a few weeks of therapy left. She is very motivated to succeed and her goal is to walk out of here . Though she understands this may not be realistic. Continue to encourage and support her. She slept much better with the melatonin last night. Ongoing pain management. Patient felt that her urine was odorous. Will obtain a UA. 04/01/21- Patient seen resting in her room. She states she is doing okay. She states the ice to hershoulder blades helped tremendously. Continue ice as needed for comfort. Will add Melatonin to sleep regimen tonight. Continue to encourage p.o. intake. BP was elevated and her Midodrine was held this morning. However, patient states she was still slightly dizzy with therapy. Her pulse was also elevated. Increased blood pressure may be related to pain as well. Will adjust Midodrine. 03/31/21- Patient seen resting in her room. She states she is doing well. She is slightly discouraged because she wants to heal faster than she is. Continue to encourage and provide emotional support. Incision is healing nicely. Lidocaine patches are not providing relief for her neck muscles. Will discontinue and offer BenGay cream. Ongoing orthostatic hypotension. Intake and output is decent. Will review midodrine. 03/29/21- A.m. labs completed. Patient able to take a shower. Clemons catheter placed in an effort torest bladder. Good urine output. Pain in anterior neck and middle back scribed as tightness. No adverse neurologic changes. Continue inpatient rehab process cord injury. 03/28/21- Initiate rehab. Full medication reconciliation has occurred. Meds, labs, and vitals reviewed. VSS. 03/27/2021 - [facility] - (Admission Data below) Assessment and Plan: Present on Admission: Debility-Rehab Brown-Sequard syndrome- Flexeril, Gabapentin, Zanaflex Neck pain Cervical spondylosis with radiculopathy Cord compression HTN (hypertension) GERD (gastroesophageal reflux disease) Arthritis Hyponatremia Urinary retention Neurological deficit present DVT PRX: Enoxaparin, SCDS Electrolyte derangement-Bind and Replenish Anemia-Follow H/H. Transfuse when clinically indicated Pain Control- titration throughout acute inpatient rehab process Nausea-Zofran prn Constipation-Bowel Regimen, follow output daily Polypharmacy-Follow. Medications fully reconciled Vitamin deficiency-Supplement Nursing Instructions: Incentive spirometry, I/O's, Vitals every 8 hours, Nutrition and ADLs Record Review: moderate Old medical records, labs, preadmission screening, previous radiology studies. Nutritional support and Blood sugar management - encourage adequate diet, caloric intake, fluid balance Avoid hypoglycemia Medication Profile: Allergies Allergen Reactions Codeine Nausea and Vomiting Oxycodone Nausea and Vomiting Scheduled Medication Profile: Facility-Administered Medications as of 04/10/2021 Medication Dose Frequency Provider Last Rate Last Admin midodrine (PROAMATINE) tablet 10 mg 10 mg BID Yluiet Gomez NP 10 mg at 04/10/21 0609 sodium chloride tablet 1 Gram 1 Gram BID WITH meals Yuliet Gomez NP 1 Gram at 04/10/21 0806 traZODone (DESYREL) tablet 50 mg 50 mg daily BEDTIME Yuliet Gomez NP 50 mg at 04/09/212116 etdfuiukll-dlfyizgwkcjjb-slxaznrb (FIORICET) 50-325-40 mg per tablet 1 Tablet 1 Tablet every 6 hours PRN Be Rangel DO 1 Tablet at 04/08/212006 [COMPLETED] nitrofurantoin (MACROBID) capsule 100 mg 100 mg BID WITH meals Yuliet Gomez NP 100 mg at 04/10/21 08 tiZANidine (ZANAFLEX) tablet 4 mg 4 mg every 6 hours PRN Be Rangel DO 4 mg at 04/10/21 09 acetaminophen (TYLENOL) tablet 650 mg 650 mg every 4 hours PRN Be Rangel DO 650 mg at 04/09/21 192 methyl salicylate-menthol (BENGAY) topical cream every 6 hours PRN Yuliet Gomez NP bisacodyl (THE MAGIC BULLET) rectal suppository 10 mg 10 mg daily Be Rangel DO 10 mg at1 1900 gabapentin (NEURONTIN) capsule 200 mg 200 mg every 8 hours Yuliet Gomez NP 200 mg at 609 docusate sodium (COLACE) capsule 100 mg 100 mg BID Yuliet Gomez NP 100 mg at 04/10/21 0806 pantoprazole (PROTONIX) tablet 40 mg 40 mg daily BEFORE breakfast Yuliet Gomez NP 40 mg at 04/10/21 0609 polyethylene glycol (MIRALAX) packet 17 Gram 17 Gram daily Viefhaus, Yuliet, INFRASTRUCTURE ARCHITECT 17 Gram at 04/10/21 0805 fludrocortisone (FLORINEF) tablet 0.2 mg 0.2 mg daily Yuliet Gomez NP 0.2 mg at 04/10/21 0806 naloxone (NARCAN) 0.4 mg/mL injection 0.1 mg 0.1 mg see admin instructions Yuliet Gomez NP ondansetron (ZOFRAN ODT) tablet 4 mg 4 mg every 6 hours PRN Yuliet Gomez NP 4 mg at 04/08/211812 prochlorperazine maleate (COMPAZINE) tablet 10 mg 10 mg every 6 hours PRN Yuliet Gomez NP bisacodyL (DULCOLAX) delayed release tablet 5 mg 5 mg daily PRN Yuliet Gomez NP calcium as carbonate (TUMS) 500 mg (200 mg elemental) chewable tablet 200 mg 200 mg every 4 hours PRN Yuliet Gomez NP enoxaparin (LOVENOX) injection 40 mg 40 mg every 24 hours Yuliet Gomez NP 40 mg at 04/09/212115 Admission Data : 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 female who recently has been admitted to [facility] for comprehensive rehabilitation - multiple complex medical issues will impact medical management throughout the acute inpatient rehabilitation process. Pt has a significant medical history including but not limited to arthritis, GERD, and HTN. Pt presented to [facility] on 03/13 with c/o posterior headaches, neck pain, and R arm pain. She reported the pain as aching sharp pressure which has been ongoing for 3 months. She noted it is primarily located at the back of her neck, radiating into her posterior neck and off the R side into her shoulder and deltoid. Pt also reported numbness in 1st-3rd fingers on theright when sleeping, as well as intermittent sensation of both feet. Cervical MRI showed disc osteophyte at C4-5 on the right side causing severe neural foraminal stenosis as well as significant discbulge osteophyte on the left at C5-6, as well as mild cord compression at C4-5. There was also large disc herniation at T8 2-3 causing cord compression and T2 signal increase. Pt brought to OR and und erwent ACDF at C4/5 and C5/6 as well as posterior decompression/laminectomy at T2-[address] Patton. Pt tolerated procedure well. MRI and CT showed large calcified disc herniation at T2-3 unchanged, overall edema in cord at T2-3 slightly smaller than preop but seems brighter, correlating with BrownSequard syndrome. Myelogram on 03/17 did not show any significant residual or persistent cord compression. Pt experienced good return of function on right and some return of function on left. On Lovenox for dvt prx, can be fully AC. Pt began working with and tolerating therapy and has been deemed medically safe and appropriate for comprehensive rehab. PMR MD to have formal referral placed. Past Medical History: Diagnosis Date Arthritis GERD (gastroesophageal reflux disease) Difficulty taking NSAIDs. HTN (hypertension) Post-operative nausea and vomiting Past Surgical History: Procedure Laterality Date ENDOSCOPY, UPPER GI HX ANTERIOR CERVICAL DISCECTOMY W/ FUSION N/A 03/13/2021 CERVICAL DISCECTOMY FUSION 2 LEVEL ANTERIOR performed by Katherin Patton MD at [facility] OR [facility] HX SECTION x 2 HX COLONOSCOPY HX HYSTERECTOMY HX MENISCECTOMY Right N/A MD FORREST W/O FACETEC FORAMOT/[facility] 04/13 VRT SEG, THORACIC N/A 03/13/2021 THORACIC LAMINECTOMY performed by Katherin Patton MD at [facility] OR [facility] Family History Problem Relation Name Age of Onset Lung Cancer Father Kidney Cancer Father Hypertension Father Other Father Tobacco Use Cervical Cancer Mother Hypertension Mother Other Mother Tobacco Use Breast Cancer Sister Hypertension Sister Hypertension Brother Other Brother Tobacco Use Stroke Maternal Grandmother Other Maternal Grandfather Tobacco Use Other Paternal Grandmother Tobacco Use Lung Cancer Paternal Grandfather Other Paternal Grandfather Tobacco Use Breast Cancer Other Aunt Social History Tobacco Use Smoking status: Former Smoker Packs/day: 0.50 Years: 5.00 Pack years: 2.50 Types: Cigarettes Quit date: 1979 Years since quittin.0 Smokeless tobacco: Never Used Vaping Use Vaping Use: Never used Substance Use Topics Alcohol use: Never Drug use: Never reports that she quit smoking about 42 years ago. Her smoking use included cigarettes. She has a 2.50 pack-year smoking history. She has never used smokeless tobacco. She reports that she does not drink alcohol and does not use drugs. Review of Systems: No new fever or chills, worsening cough or colds, chest pain No new abdominal pain, heat or cold intolerance weakness Objective Data: Vitals With Comments 04/10/2021 0912 04/10/2021 0803 04/10/2021 0516 2021 1923 BP: 115/73 134/73 138/79 159/86 Pulse: 102 86 87 95 Resp: -- -- 18 18 Temp: -- -- 97.8 ??F (36.6 ??C) 98.9 ??F (37.2 ??C) Temp src: -- -- Oral Oral SpO2: -- -- 95 % 96 % 04/10 0700 - 04/10 1859 In: 240 [P.O.:240] Out: - General alert, awake, no cardiopulmonary distress, weakness Lungs Decreased breath sounds at bases- Heart regular rate and rhythm Abdomen soft, non-tender, with bowel sounds Extremities pulses noted, no cyanosis CBC result (most recent): Lab Results Component Value Date/Time WBC 3.1 (L) 2021 11:57 AM HGB 9.6 (L) 2021 11:57 AM HGBPOC 11.5 (L) 03/13/2021 02:58 PM HCT 30.8 (L) 2021 11:57 AM PLT 213 2021 11:57 AM MCV 94.5 2021 11:57 AM BMP result (most recent): Lab Results Component Value Date/Time NA 139 2021 11:57 AM K 3.7 2021 11:57 AM CL 103 2021 11:57 AM CO2 25 2021 11:57 AM CA 8.8 2021 11:57 AM BUN 23 2021 11:57 AM CREAT 0.79 2021 11:57 AM GLUCOSE 90 2021 11:57 AM ANIONGAP 11 2021 11:57 AM CMP result (most recent): Lab Results Component Value Date/Time NA 139 2021 11:57 AM K 3.7 2021 11:57 AM CL 103 2021 11:57 AM CO2 25 2021 11:57 AM CA 8.8 2021 11:57 AM BUN 23 2021 11:57 AM CREAT 0.79 2021 11:57 AM GLUCOSE 90 2021 11:57 AM TOTALPROTEIN 5.4 (L) 2021 11:57 AM ALBUMIN 3.1 (L) 2021 11:57 AM BILITOTAL 0.2 2021 11:57 AM ALKPHOS 91 2021 11:57 AM AST 16 2021 11:57 AM ALT 18 2021 11:57 AM ANIONGAP 11 2021 11:57 AM HEPATIC function panel result (most recent): Lab Results Component Value Date/Time ALT 18 2021 11:57 AM AST 16 2021 11:57 AM ALKPHOS 91 2021 11:57 AM Hemoglobin A1C result (most recent): No results found for: HGBA1C, [id number] LIPID panel result (most recent): No results found for: CHOLTOT, HDL, LDLCALC, LDLDIRECT, TRIGLYCERIDE UA results do not (most recent): Lab Results Component Value Date/Time PHUA 5.0 04/02/2021 02:46 PM SGUR 1.018 04/02/2021 02:46 PM URINELEUKOC 2+ (A) 04/02/2021 02:46 PM NITRITEUA Positive (A) 04/02/2021 02:46 PM KETONEURINE Negative 04/02/2021 02:46 PM PROTEINUA Negative 04/02/2021 02:46 PM GLUUA Negative 04/02/2021 02:46 PM BLOODUA 2+ (A) 04/02/2021 02:46 PM WBCU 51-100 (A) 04/02/2021 02:46 PM RBCUA 11-25 (A) 04/02/2021 02:46 PM BACTERIAUA 1+ (A) 04/02/2021 02:46 PM UREPITHELIAL 0-5 03/28/2021 01:24 AM Results for orders placed or performed during the hospital encounter of 03/13/21 EKG 12-LEAD Narrative Stationary ECG Study [facility] Test Date: 03/17/2021 7:05 PM Pat Name: VICK ISEGEL Department: 45 Room: 474 6 Gender: F 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 Daily rounds include discussion of I and Os, avoiding hypotension and hypoglycemia. Daily medication review completed. Ongoing efforts to coordinate care, maintain euvolemia, adequate nutrition, electrolyte management, appropriate BP management, overall stability, and management of co-morbidites individually are being dictated by clinical progress. Documentation partially completed using dictation services and EMR. Please excuse any typographicalerrors that may have occurred. FEI Titus MD Internal Medicine Director // MMAKING SUPERVISOR * Be Rangel, DO - 04/10/2021 10:59 AM CST Images from the original note were not included. Physical Medicine and Rehabilitation Progress Note Admission Date: 03/27/2021 Length of stay: 14 days Patient: Vick Siegel Chief complaint: I am great Subjective: Patient seen and examined during morning rounds. She reports her blood pressure has been more stable last 24 hours or so. She feels her left leg strength might be improving. Leg media executive's have been helpful for bed mobility. She still wants to work on her transfers. Tolerating therapies. Last Bowel Movement (mm/dd/yyyy): 04/09/21 (04/09/211922) ROS: As per HPI and: No fever, chills, chest pain, shortness of breath, or cough. Social History: Lives alone in a 1 level home with 1-2 steps to enter Medications reviewed. Current Facility-Administered Medications: ??? midodrine (PROAMATINE) tablet 10 mg, 10 mg, Oral, BID, Yuliet Gomez, FEI, 10 mg at 609 ??? sodium chloride tablet 1 Gram, 1 Gram, Oral, BID WITH meals, Yuliet Gomez, FEI, 1 Gram at 04/10/21 0806 ??? [DISCONTINUED] midodrine (PROAMATINE) tablet 10 mg, 10 mg, Oral, TID, Be Rangel, DO,10 mg at 04/09/21 1249 ??? traZODone (DESYREL) tablet 50 mg, 50 mg, Oral, daily BEDTIME, Yuliet Gomez, FEI, 50 mg at 04/09/212116 ??? bzruizugjl-zszfxhrfkfnjb-jnfnlyls (FIORICET) 50-325-40 mg per tablet 1 Tablet, 1 Tablet, Oral, every 6 hours PRN, Be Rangel, DO, 1 Tablet at 04/08/212006 ??? [COMPLETED] nitrofurantoin (MACROBID) capsule 100 mg, 100 mg, Oral, BID WITH meals, Yuliet Gomez NP, 100 mg at 04/10/21 0806 ??? tiZANidine (ZANAFLEX) tablet 4 mg, 4 mg, Oral, every 6 hours PRN, Mamie Rangeler A, DO, 4 mg at 04/10/21 0912 ??? acetaminophen (TYLENOL) tablet 650 mg, 650 mg, Oral, every 4 hours PRN, Be Rangel A, DO, 650 mg at 04/09/21 192 ??? methyl salicylate-menthol (BENGAY) topical cream, , Topical, every 6 hours PRN, Yuliet Gomez, FEI ??? bisacodyl (THE MAGIC BULLET) rectal suppository 10 mg, 10 mg, Rectal, daily, Brenton Rangel, DO, 10 mg at 04/09/21 1900 ??? gabapentin (NEURONTIN) capsule 200 mg, 200 mg, Oral, every 8 hours, Yuliet Gomez NP, 200 mg at 04/10/21 0609 ??? docusate sodium (COLACE) capsule 100 mg, 100 mg, Oral, BID, Yuliet Gomez NP, 100 mg at 04/10/21 0806 ??? pantoprazole (PROTONIX) tablet 40 mg, 40 mg, Oral, daily BEFORE breakfast, Yuliet Gomez NP, 40 mg at 04/10/21 0609 ??? polyethylene glycol (MIRALAX) packet 17 Gram, 17 Gram, Oral, daily, Yuliet Gomez NP, 17 Gram at 04/10/21 0805 ??? fludrocortisone (FLORINEF) tablet 0.2 mg, 0.2 mg, Oral, daily, Yuliet Gomez NP, 0.2 mg at1 0806 ??? naloxone (NARCAN) 0.4 mg/mL injection 0.1 mg, 0.1 mg, IV, see admin instructions, Yuliet Gomez NP ??? ondansetron (ZOFRAN ODT) tablet 4 mg, 4 mg, Oral, every 6 hours PRN, Yuliet Gomez NP, 4 mg at 04/08/21 181 ??? prochlorperazine maleate (COMPAZINE) tablet 10 mg, 10 mg, Oral, every 6 hours PRN, Yuliet Gomez NP ??? bisacodyL (DULCOLAX) delayed release tablet 5 mg, 5 mg, Oral, daily PRN, Yuliet Gomez NP ??? calcium as carbonate (TUMS) 500 mg (200 mg elemental) chewable tablet 200 mg, 200 mg, Oral, every 4 hours PRN, Yuliet Gomez NP ??? enoxaparin (LOVENOX) injection 40 mg, 40 mg, subCUT, every 24 hours, Yuliet Gomez NP, 40 mg at 04/09/216 ??? [DISCONTINUED] sodium chloride tablet 2 Gram, 2 Gram, Oral, every 8 hours, Yuliet Gomez NP, 2 Gram at 04/08/21 0555 Objective: Vitals: BP 115/73 Pulse (!) 102 Temp 97.8 ??F (36.6 ??C) (Oral) Resp 18 Ht 5' 3 (1.6 m) Wt 83.9 kg (185 lb) SpO2 95% BMI 32.77 kg/m?? General:alert, no distress and cooperative Lungs: normal respiratory effort. Ext: No significant calf/ankle edema. Neuro: CN II-XII grossly intact, no facial droop Psyche: Mood is appropriate to circumstances. Affect is Euthymic Incision: Data Review: Results for orders placed or performed during the hospital encounter of 03/27/21 (from the past 24 hour(s)) CBC WITH DIFFERENTIAL Result Value Ref Range WBC 3.1 (L) 4.0 - 9.8 K/uL RBC 3.26 (L) 3.90 - 4.90 M/uL HEMOGLOBIN 9.6 (L) 11.8 - 14.8 g/dL HEMATOCRIT 30.8 (L) 35.5 - 44.0 % MCV 94.5 82.0 - 99.0 fL MCH 29.4 27.2 - 32.6 pg MCHC 31.2 (L) 31.5 - 35.5 g/dL RDW 13.7 11.5 - 14.5 % RDW-STDEV 47.0 37.1 - 48.7 fL PLATELETS 213 140 - 350 K/uL MPV 10.2 9.3 - 12.4 fL NEUTROPHILS 48 % LYMPHOCYTES 38 % MONOCYTES 14 % EOSINOPHILS 0 % BASOPHILS 0 % IMMATURE GRANULOCYTES 1 % NEUTROPHIL ABSOLUTE 1.50 (L) 1.90 - 7.00 K/uL LYMPHOCYTE ABSOLUTE 1.17 0.70 - 4.50 K/uL MONOCYTE ABSOLUTE 0.42 0.10 - 1.30 K/uL EOSINOPHIL ABSOLUTE 0.00 0.00 - 0.70 K/uL BASOPHILS ABSOLUTE 0.00 0.00 - 0.20 K/uL IMMATURE GRANULOCYTES ABSOLUTE 0.02 0.00 - 0.03 K/uL COMPREHENSIVE METABOLIC PANEL Result Value Ref Range SODIUM 139 136 - 145 mmol/L POTASSIUM 3.7 3.5 - 5.0 mmol/L CHLORIDE 103 98 - 107 mmol/L CO2 25 22 - 29 mmol/L CALCIUM 8.8 8.6 - 10.2 mg/dL BUN 23 8 - 23 mg/dL CREATININE 0.79 0.51 - 0.95 mg/dL GLUCOSE 90 74 - 99 mg/dL TOTAL PROTEIN 5.4 (L) 6.7 - 8.6 g/dL ALBUMIN 3.1 (L) 3.5 - 5.2 g/dL BILIRUBIN TOTAL 0.2 0.2 - 1.1 mg/dL ALKALINE PHOSPHATASE 91 35 - 104 U/L AST 16 <33 U/L ALT 18 <34 U/L GFR >60 mL/min/1.73 sq meter GFR, >60 mL/min/1.73 sq meter ANION GAP 11 8 - 16 mmol/L C-REACTIVE PROTEIN Result Value Ref Range CRP <3.0 <5.0 mg/L MAGNESIUM LEVEL Result Value Ref Range MAGNESIUM 2.1 1.6 - 2.4 mg/dL PHOSPHORUS Result Value Ref Range PHOSPHORUS 5.1 (H) 2.5 - 4.5 mg/dL ASSESSMENT/PLAN: Patient is a 66 y.o. female who underwent C4-6 ACDF and T2-T3 laminectomy on 03/13/[address] 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 Functional status:Therapy progress noted today: -Discussed in team conference with nursing, therapyand rental boats caretaker. See note for details. Highlights include: Date of Conference: 04/08/21 Barriers to Discharge: Patient apprehension, Caregiver apprehension, Home entry, Bedroom/bathroom accessibility, Limited strength, balance, endurance, Requires caregiver assist, Functioning at wheelchair level, Lives alone and Limited caregiver availability Driver/Guide: Lorin Munoz DC Date: 04/15 PT/OT/Aide Activities of Daily Living Feeding: ind Grooming: ind Bathing: wes Upper Body Dressing: wes Lower Body Dressing: wes Toileting: total Toilet transfers: maxa Mobility Bed mobility: Max assist for sit to lying transfers and lying to sitting edge of bed transfers Transfers: mod-maxa slide board transfers Wheelchair mobility: 150 feet SBA manual WC Progress toward goals and modifications to course of treatment: Utilization of a leg media executive is to help with bed mobility Patient reports: Improving symptoms of orthostatic hypotension ?? Rehab: -Impairments: Gait, function, self-care, mobility, ADLs - Initiate PT/OT rehabilitation nursing, recreation therapy, and social security assessor. -Isolation: None -Precautions: None -Pain: As needed Tylenol. Gabapentin. Tizanidine. Fioricet for headache -Fall prevention: Education and therapies ?? Neurogenic bladder: UA positive. Macrobid ?? Neurogenic bowel: Bowel routine with Magic bullet. Colace, MiraLAX ?? Skin/Wound Care: Monitor surgical incision for proper healing Sleep: Melatonin ?? Prophylaxis/Prevention: DVT: Lovenox GI: Protonix ?? Medical History/Active Issues: To be managed by primary medicine team Orthostatic hypotension: Midodrine, Florinef. Adjustments ongoing Hyponatremia: Salt tabs ?? FEN: DIET GENERAL Effective Now -Replete electrolytes as needed - Continue vitamins/supplements -Periodic labs, monitor trends ?? Disposition: -Anticipated location: Home -ELOS: 28 days -Code Status: Full Code ? F/U appts: -Huang Alonso MD after discharge from rehab -Dr. Patton -Rehab Discussed with medicine 04/10/2021 Electronically Signed By: Be Rangel DO ATTESTATION STATEMENTS Portions of this note were transcribed using [employer] speaking computerized voice recognition without a human social insurance analyst. This report may or may not have been adjusted for typographical, grammatical and syntax errors or malapropisms. MMAKING SUPERVISOR * Radha Borja RN - 04/10/2021 4:43 AM CST Pt received tylenol for headache this shift. BP was elevated. Pt did bowel routine this shift. Pt was unable to give herself the suppository. Pt got up to the shower chair with a a 2 person max assist and slide board. Pt has been resting in between care. Patient has had no falls at this time and is fall risk level/color yellow Interventions in Place: [x] Bed Alarm [] Clip Chair Alarm [] Self-Releasing Belt (a one time order is required) [x] Call Light within reach, return demo by patient completed [] Handoff patient when returning him/her to room [] Wheelchair/Walker out of reach [] Low Bed [] Mats in Place [] Observation Room [x] Fall Risk Magnet on Door [x] Fall Risk Magnet on Schedule Board [x] Fall Risk Armband on Patient [] Sitter [] Other If patient is a red fall risk, do not leave alone in the bathroom. Patient Education on Medications Education provided Re: Vick Siegel This education was provided to the patient Name of medication: all medications given The education included the following: Administering their medication, Understanding the side effects of their medication Radha Borja RN MMAKING SUPERVISOR * Be Rangel DO - 2021 12:35 PM CST Images from the original note were not included. Physical Medicine and Rehabilitation Progress Note Admission Date: 03/27/2021 Length of stay: 13 days Patient: Vick Siegel Chief complaint: Doing okay Subjective: Patient seen and examined during morning rounds. Blood pressure fluctuations ongoing. Ongoing tightness/muscle soreness in her shoulders and neck. Tizanidine has been helpful. Tolerating therapies and she is improving in her independence for self-care and transfers. Last Bowel Movement (mm/dd/yyyy): 04/08/21 (04/08/212006) ROS: As per HPI and: No fever, chills, chest pain, shortness of breath, or cough. Social History: Lives alone in a 1 level home with 1-2 steps to enter Medications reviewed. Current Facility-Administered Medications: ??? midodrine (PROAMATINE) tablet 10 mg, 10 mg, Oral, TID, Be Rangel DO ??? traZODone (DESYREL) tablet 50 mg, 50 mg, Oral, daily BEDTIME, Yuliet Gomez NP, 50 mg at 04/08/212005 ??? pabyuvywop-xyrvrirjkphfv-xvjlwkfz (FIORICET) 50-325-40 mg per tablet 1 Tablet, 1 Tablet, Oral, every 6 hours PRN, Be Rangel DO, 1 Tablet at 04/08/212006 ??? nitrofurantoin (MACROBID) capsule 100 mg, 100 mg, Oral, BID WITH meals, Yuliet Gomez INFRASTRUCTURE ARCHITECT, 100 mg at 04/09/21 0801 ??? tiZANidine (ZANAFLEX) tablet 4 mg, 4 mg, Oral, every 6 hours PRN, Be Rangel, DO, 4 mg at 04/09/21 0800 ??? acetaminophen (TYLENOL) tablet 650 mg, 650 mg, Oral, every 4 hours PRN, Be Rangel, DO, 650 mg at 04/09/21 0758 ??? methyl salicylate-menthol (BENGAY) topical cream, , Topical, every 6 hours PRN, Yuliet Gomez, FEI ??? bisacodyl (THE MAGIC BULLET) rectal suppository 10 mg, 10 mg, Rectal, daily, Brenton Rangel, DO, 10 mg at 04/08/212005 ??? gabapentin (NEURONTIN) capsule 200 mg, 200 mg, Oral, every 8 hours, Yuliet Gomez, FEI, 200 mg at 04/09/21 0507 ??? docusate sodium (COLACE) capsule 100 mg, 100 mg, Oral, BID, Yuliet Gomez, FEI, 100 mg at 04/09/21 0801 ??? pantoprazole (PROTONIX) tablet 40 mg, 40 mg, Oral, daily BEFORE breakfast, Yuliet Gomez, FEI, 40 mg at 04/09/21 0508 ??? [Held by Provider] sodium chloride tablet 2 Gram, 2 Gram, Oral, every 8 hours, Yuliet Gomez, FEI, 2 Gram at 04/08/21 0555 ??? polyethylene glycol (MIRALAX) packet 17 Gram, 17 Gram, Oral, daily, Yuliet Gomez NP, 17 Gram at 04/09/21 0801 ??? fludrocortisone (FLORINEF) tablet 0.2 mg, 0.2 mg, Oral, daily, Yuliet Gomez NP, 0.2 mg at1 0801 ??? naloxone (NARCAN) 0.4 mg/mL injection 0.1 mg, 0.1 mg, IV, see admin instructions, Yuliet Gomez NP ??? ondansetron (ZOFRAN ODT) tablet 4 mg, 4 mg, Oral, every 6 hours PRN, Yuliet Gomez, FEI, 4 mg at 04/08/211812 ??? prochlorperazine maleate (COMPAZINE) tablet 10 mg, 10 mg, Oral, every 6 hours PRN, Yuliet Gomez, INFRASTRUCTURE ARCHITECT ??? bisacodyL (DULCOLAX) delayed release tablet 5 mg, 5 mg, Oral, daily PRN, Yuliet Gomez, INFRASTRUCTURE ARCHITECT ??? calcium as carbonate (TUMS) 500 mg (200 mg elemental) chewable tablet 200 mg, 200 mg, Oral, every 4 hours PRN, Yuliet Gomez, INFRASTRUCTURE ARCHITECT ??? enoxaparin (LOVENOX) injection 40 mg, 40 mg, subCUT, every 24 hours, Yuliet Gomez, FEI, 40 mg at 04/08/212005 Objective: Vitals: BP 118/71 (BP Location: Right arm, Patient Position (BP): Supine) Pulse 86 Temp 99 ??F (37.2 ??C) (Oral) Resp 18 Ht 5' 3 (1.6 m) Wt 83.9 kg (185 lb) SpO2 96% BMI 32.77 kg/m?? General:alert, no distress and cooperative Lungs: normal respiratory effort. Ext: No significant calf/ankle edema. Neuro: CN II-XII grossly intact, no facial droop Psyche: Mood is appropriate to circumstances. Affect is Euthymic Incision: Data Review: Results for orders placed or performed during the hospital encounter of 03/27/21 (from the past 24 hour(s)) CBC WITH DIFFERENTIAL Result Value Ref Range WBC 3.1 (L) 4.0 - 9.8 K/uL RBC 3.26 (L) 3.90 - 4.90 M/uL HEMOGLOBIN 9.6 (L) 11.8 - 14.8 g/dL HEMATOCRIT 30.8 (L) 35.5 - 44.0 % MCV 94.5 82.0 - 99.0 fL MCH 29.4 27.2 - 32.6 pg MCHC 31.2 (L) 31.5 - 35.5 g/dL RDW 13.7 11.5 - 14.5 % RDW-STDEV 47.0 37.1 - 48.7 fL PLATELETS 213 140 - 350 K/uL MPV 10.2 9.3 - 12.4 fL NEUTROPHILS 48 % LYMPHOCYTES 38 % MONOCYTES 14 % EOSINOPHILS 0 % BASOPHILS 0 % IMMATURE GRANULOCYTES 1 % NEUTROPHIL ABSOLUTE 1.50 (L) 1.90 - 7.00 K/uL LYMPHOCYTE ABSOLUTE 1.17 0.70 - 4.50 K/uL MONOCYTE ABSOLUTE 0.42 0.10 - 1.30 K/uL EOSINOPHIL ABSOLUTE 0.00 0.00 - 0.70 K/uL BASOPHILS ABSOLUTE 0.00 0.00 - 0.20 K/uL IMMATURE GRANULOCYTES ABSOLUTE 0.02 0.00 - 0.03 K/uL ASSESSMENT/PLAN: Patient is a 66 y.o. female who underwent C4-6 ACDF and T2-T3 laminectomy on 03/13/[address] 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 Functional status:Therapy progress noted today: -Discussed in team conference with nursing, therapyand rental boats caretaker. See note for details. Highlights include: Date of Conference: 04/08/21 Barriers to Discharge: Patient apprehension, Caregiver apprehension, Home entry, Bedroom/bathroom accessibility, Limited strength, balance, endurance, Requires caregiver assist, Functioning at wheelchair level, Lives alone and Limited caregiver availability Driver/Guide: Lorin Munoz DC Date: 04/15 PT/OT/Aide Activities of Daily Living Feeding: ind Grooming: ind Bathing: wes Upper Body Dressing: wes Lower Body Dressing: wes Toileting: total Toilet transfers: maxa Mobility Bed mobility: wes with leg straps Transfers: mod-maxa slide board transfers Wheelchair mobility: 150 feet SBA manual WC Progress toward goals and modifications to course of treatment: adjustments ongoing to her medications to manage her orthostatic hypotension symptoms Patient reports: Orthostatic hypotension ?? Rehab: -Impairments: Gait, function, self-care, mobility, ADLs - Initiate PT/OT rehabilitation nursing, recreation therapy, and social security assessor. -Isolation: None -Precautions: None -Pain: As needed Tylenol. Gabapentin. Tizanidine. Fioricet for headache -Fall prevention: Education and therapies ?? Neurogenic bladder: UA positive. Macrobid ?? Neurogenic bowel: Bowel routine with Magic bullet. Colace, MiraLAX ?? Skin/Wound Care: Monitor surgical incision for proper healing Sleep: Melatonin ?? Prophylaxis/Prevention: DVT: Lovenox GI: Protonix ?? Medical History/Active Issues: To be managed by primary medicine team Orthostatic hypotension: Midodrine, Florinef. Adjustments ongoing Hyponatremia: Salt tabs ?? FEN: DIET GENERAL Effective Now -Replete electrolytes as needed - Continue vitamins/supplements -Periodic labs, monitor trends ?? Disposition: -Anticipated location: Home -ELOS: 28 days -Code Status: Full Code ? F/U appts: -Huang Alonso MD after discharge from rehab -Dr. Patton -Rehab Discussed with medicine 2021 Electronically Signed By: Be Rangel DO ATTESTATION STATEMENTS Portions of this note were transcribed using [employer] speaking computerized voice recognition without a human social insurance analyst. This report may or may not have been adjusted for typographical, grammatical and syntax errors or malapropisms. MMAKING SUPERVISOR * Reggie Johnson MD - 2021 12:03 PM CST Images from the original note were not included. Internal Medicine/Rehabilitation Service Patient: Vick Siegel Date of : 1955 Admission Date: (03/27/2021) Vitals With Comments 2021 0743 2021 0512 2021 0245 04/08/2021 2107 BP: 118/71 126/75 120/71 162/78 Pulse: 86 83 86 -- Resp: -- 18 16 -- Temp: -- 99 ??F (37.2 ??C) -- -- Temp src: -- Oral -- -- SpO2: -- 96 % 95 % -- DIET GENERAL Effective Now Full Code Timeline (including subjective): 04/09/21- Patient seen resting in her room. She states she is doing okay. Macrobid to end tomorrow.Will repeat UA after abx completion. Will adjust midodrine dosing. We will continue 10 mg at 0500 and 12:00. Patient's BP is spiking at night not requiring the midodrine. Patient is in agreement withthis plan. Labs reviewed; stable. Sodium stable at 139 though she has been receiving 2gm TID. Will decrease to 1gm BID. 04/08/21- Patient seen resting in her room. Her blood pressure is elevated at this time. Sodium to be held. Labs to be repeated in the morning. Midodrine was adjusted as she is very orthostatic with therapies. Ongoing daily adjustments. We will continue to have conversations with her daily. OngoingMacrobid for UTI. 04/07/21- Patient seen resting in her room. She states she is doing okay. She did not sleep well last night from being woken up to turn. We discussed sleep hygiene. Patient is able to move on her own. She understands when to prevent bedsores. Will order sleep hygiene moving forward. Ongoing Macrobid for positive UTI. No other complaints. 04/04/21- Patient seen resting in her room. She states she is a little tired as she just completed some therapy. She states she is doing well overall. Macrobid started yesterday for UTI. We will continue to follow culture and sensitivities and make changes as needed. Patient is still not sleeping despite melatonin. Will discontinue and start trazodone. Patient has taken trazodone at home in the past. 04/03/2021- Patient seen resting in her room. She states she cannot sleep well. Melatonin was increased and scheduled for tonight. Will follow. UA reviewed and there is a likelihood of an infection. Will start Macrobid today and follow culture and sensitivities. Patient is appreciative and understands this plan. 04/02/21- Patient seen resting in her room. She is upset as she only has a few weeks of therapy left. She is very motivated to succeed and her goal is to walk out of here . Though she understands this may not be realistic. Continue to encourage and support her. She slept much better with the melatonin last night. Ongoing pain management. Patient felt that her urine was odorous. Will obtain a UA. 04/01/21- Patient seen resting in her room. She states she is doing okay. She states the ice to hershoulder blades helped tremendously. Continue ice as needed for comfort. Will add Melatonin to sleep regimen tonight. Continue to encourage p.o. intake. BP was elevated and her Midodrine was held this morning. However, patient states she was still slightly dizzy with therapy. Her pulse was also elevated. Increased blood pressure may be related to pain as well. Will adjust Midodrine. 03/31/21- Patient seen resting in her room. She states she is doing well. She is slightly discouraged because she wants to heal faster than she is. Continue to encourage and provide emotional support. Incision is healing nicely. Lidocaine patches are not providing relief for her neck muscles. Will discontinue and offer BenGay cream. Ongoing orthostatic hypotension. Intake and output is decent. Will review midodrine. 03/29/21- A.m. labs completed. Patient able to take a shower. Clemons catheter placed in an effort torest bladder. Good urine output. Pain in anterior neck and middle back scribed as tightness. No adverse neurologic changes. Continue inpatient rehab process cord injury. 03/28/21- Initiate rehab. Full medication reconciliation has occurred. Meds, labs, and vitals reviewed. VSS. 03/27/2021 - [facility] (Admission Data below) Assessment and Plan: Present on Admission: Debility-Rehab Brown-Sequard syndrome- Flexeril, Gabapentin, Zanaflex Neck pain Cervical spondylosis with radiculopathy Cord compression HTN (hypertension) GERD (gastroesophageal reflux disease) Arthritis Hyponatremia Urinary retention Neurological deficit present DVT PRX: Enoxaparin, SCDS Electrolyte derangement-Bind and Replenish Anemia-Follow H/H. Transfuse when clinically indicated Pain Control- titration throughout acute inpatient rehab process Nausea-Zofran prn Constipation-Bowel Regimen, follow output daily Polypharmacy-Follow. Medications fully reconciled Vitamin deficiency-Supplement Nursing Instructions: Incentive spirometry, I/O's, Vitals every 8 hours, Nutrition and ADLs Record Review: moderate Old medical records, labs, preadmission screening, previous radiology studies. Nutritional support and Blood sugar management - encourage adequate diet, caloric intake, fluid balance Avoid hypoglycemia Medication Profile: Allergies Allergen Reactions Codeine Nausea and Vomiting Oxycodone Nausea and Vomiting Scheduled Medication Profile: Facility-Administered Medications as of 2021 Medication Dose Frequency Provider Last Rate Last Admin midodrine (PROAMATINE) tablet 10 mg 10 mg TID Be Rangel, traZODone (DESYREL) tablet 50 mg 50 mg daily BEDTIME ViYuliet webb NP 50 mg at 04/08/212005 bhvxtukdpk-xjxjaxtjgxvcn-dqpqrwzm (FIORICET) 50-325-40 mg per tablet 1 Tablet 1 Tablet every 6 hours PRN Be Rangel DO 1 Tablet at 04/08/212006 nitrofurantoin (MACROBID) capsule 100 mg 100 mg BID WITH meals Yuliet Gomez NP 100 mg at 04/09/21 0801 tiZANidine (ZANAFLEX) tablet 4 mg 4 mg every 6 hours PRN Be Rangel, DO 4 mg at 04/09/21 0800 acetaminophen (TYLENOL) tablet 650 mg 650 mg every 4 hours PRN Be Rangel DO 650 mg at 04/09/21 0758 methyl salicylate-menthol (BENGAY) topical cream every 6 hours PRN Yuliet Gomez NP bisacodyl (THE MAGIC BULLET) rectal suppository 10 mg 10 mg daily Be Rangel DO 10 mg at106/09/202005 gabapentin (NEURONTIN) capsule 200 mg 200 mg every 8 hours Yuliet Gomez NP 200 mg at 507 docusate sodium (COLACE) capsule 100 mg 100 mg BID Yuliet Gomez NP 100 mg at 04/09/21 0801 pantoprazole (PROTONIX) tablet 40 mg 40 mg daily BEFORE breakfast Yuliet Gomez NP 40 mg at 04/09/21 0508 [Held by Provider] sodium chloride tablet 2 Gram 2 Gram every 8 hours Yuliet Gomez NP 2 Gram at 04/08/21 0555 polyethylene glycol (MIRALAX) packet 17 Gram 17 Gram daily Yuliet Gomez NP 17 Gram at 04/09/21 0801 fludrocortisone (FLORINEF) tablet 0.2 mg 0.2 mg daily Yuliet Gomez NP 0.2 mg at 04/09/21 0801 naloxone (NARCAN) 0.4 mg/mL injection 0.1 mg 0.1 mg see admin instructions Yuliet Gomez NP ondansetron (ZOFRAN ODT) tablet 4 mg 4 mg every 6 hours PRN Yuliet Gomez NP 4 mg at 12/28/21 1813 prochlorperazine maleate (COMPAZINE) tablet 10 mg 10 mg every 6 hours PRN Yuliet Gomez, FEI bisacodyL (DULCOLAX) delayed release tablet 5 mg 5 mg daily PRN Yuliet Gomez, FEI calcium as carbonate (TUMS) 500 mg (200 mg elemental) chewable tablet 200 mg 200 mg every 4 hours PRN Yuliet Gomez, FEI enoxaparin (LOVENOX) injection 40 mg 40 mg every 24 hours Yuliet Gomez, FEI 40 mg at 04/08/212005 Admission Data : 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 female who recently has been admitted to [facility] for comprehensive rehabilitation - multiple complex medical issues will impact medical management throughout the acute inpatient rehabilitation process. Pt has a significant medical history including but not limited to arthritis, GERD, and HTN. Pt presented to [facility] on 03/13 with c/o posterior headaches, neck pain, and R arm pain. She reported the pain as aching sharp pressure which has been ongoing for 3 months. She noted it is primarily located at the back of her neck, radiating into her posterior neck and off the R side into her shoulder and deltoid. Pt also reported numbness in 1st-3rd fingers on theright when sleeping, as well as intermittent sensation of both feet. Cervical MRI showed disc osteophyte at C4-5 on the right side causing severe neural foraminal stenosis as well as significant discbulge osteophyte on the left at C5-6, as well as mild cord compression at C4-5. There was also large disc herniation at T8 2-3 causing cord compression and T2 signal increase. Pt brought to OR and und erwent ACDF at C4/5 and C5/6 as well as posterior decompression/laminectomy at T2-[address] Patton. Pt tolerated procedure well. MRI and CT showed large calcified disc herniation at T2-3 unchanged, overall edema in cord at T2-3 slightly smaller than preop but seems brighter, correlating with BrownSequard syndrome. Myelogram on 03/17 did not show any significant residual or persistent cord compression. Pt experienced good return of function on right and some return of function on left. On Lovenox for dvt prx, can be fully AC. Pt began working with and tolerating therapy and has been deemed medically safe and appropriate for comprehensive rehab. PMR MD to have formal referral placed. Past Medical History: Diagnosis Date Arthritis GERD (gastroesophageal reflux disease) Difficulty taking NSAIDs. HTN (hypertension) Post-operative nausea and vomiting Past Surgical History: Procedure Laterality Date ENDOSCOPY, UPPER GI HX ANTERIOR CERVICAL DISCECTOMY W/ FUSION N/A 03/13/2021 CERVICAL DISCECTOMY FUSION 2 LEVEL ANTERIOR performed by Katherin Patton MD at [facility] OR [facility] HX SECTION x 2 HX COLONOSCOPY HX HYSTERECTOMY HX MENISCECTOMY Right N/A MD FORREST W/O FACETEC FORAMOT/[facility] 04/13 VRT SEG, THORACIC N/A 03/13/2021 THORACIC LAMINECTOMY performed by Katherin Patton MD at [facility] OR [facility] Family History Problem Relation Name Age of Onset Lung Cancer Father Kidney Cancer Father Hypertension Father Other Father Tobacco Use Cervical Cancer Mother Hypertension Mother Other Mother Tobacco Use Breast Cancer Sister Hypertension Sister Hypertension Brother Other Brother Tobacco Use Stroke Maternal Grandmother Other Maternal Grandfather Tobacco Use Other Paternal Grandmother Tobacco Use Lung Cancer Paternal Grandfather Other Paternal Grandfather Tobacco Use Breast Cancer Other Aunt Social History Tobacco Use Smoking status: Former Smoker Packs/day: 0.50 Years: 5.00 Pack years: 2.50 Types: Cigarettes Quit date: 1979 Years since quittin.0 Smokeless tobacco: Never Used Vaping Use Vaping Use: Never used Substance Use Topics Alcohol use: Never Drug use: Never reports that she quit smoking about 42 years ago. Her smoking use included cigarettes. She has a 2.50 pack-year smoking history. She has never used smokeless tobacco. She reports that she does not drink alcohol and does not use drugs. Review of Systems: No new fever or chills, worsening cough or colds, chest pain No new abdominal pain, heat or cold intolerance weakness Objective Data: Vitals With Comments 2021 0743 2021 0512 2021 0245 04/08/2021 2107 BP: 118/71 126/75 120/71 162/78 Pulse: 86 83 86 -- Resp: -- 18 16 -- Temp: -- 99 ??F (37.2 ??C) -- -- Temp src: -- Oral -- -- SpO2: -- 96 % 95 % -- 04/09 700 - 04/09 1859 In: 360 [P.O.:360] Out: 200 [Urine:200] General alert, awake, no cardiopulmonary distress, weakness Lungs Decreased breath sounds at bases- Heart regular rate and rhythm Abdomen soft, non-tender, with bowel sounds Extremities pulses noted, no cyanosis CBC result (most recent): Lab Results Component Value Date/Time WBC 3.6 (L) 04/02/2021 04:34 AM HGB 9.8 (L) 04/02/2021 04:34 AM HGBPOC 11.5 (L) 03/13/2021 02:58 PM HCT 30.7 (L) 04/02/2021 04:34 AM PLT 206 04/02/2021 04:34 AM MCV 93.0 04/02/2021 04:34 AM BMP result (most recent): Lab Results Component Value Date/Time NA 141 04/02/2021 04:34 AM K 3.7 04/02/2021 04:34 AM CL 107 04/02/2021 04:34 AM CO2 24 04/02/2021 04:34 AM CA 8.8 04/02/2021 04:34 AM BUN 30 (H) 04/02/2021 04:34 AM CREAT 0.71 04/02/2021 04:34 AM GLUCOSE 103 (H) 04/02/2021 04:34 AM ANIONGAP 10 04/02/2021 04:34 AM CMP result (most recent): Lab Results Component Value Date/Time NA 141 04/02/2021 04:34 AM K 3.7 04/02/2021 04:34 AM CL 107 04/02/2021 04:34 AM CO2 24 04/02/2021 04:34 AM CA 8.8 04/02/2021 04:34 AM BUN 30 (H) 04/02/2021 04:34 AM CREAT 0.71 04/02/2021 04:34 AM GLUCOSE 103 (H) 04/02/2021 04:34 AM TOTALPROTEIN 5.3 (L) 04/02/2021 04:34 AM ALBUMIN 3.0 (L) 04/02/2021 04:34 AM BILITOTAL 0.3 04/02/2021 04:34 AM ALKPHOS 77 04/02/2021 04:34 AM AST 25 04/02/2021 04:34 AM ALT 41 (H) 04/02/2021 04:34 AM ANIONGAP 10 04/02/2021 04:34 AM HEPATIC function panel result (most recent): Lab Results Component Value Date/Time ALT 41 (H) 04/02/2021 04:34 AM AST 25 04/02/2021 04:34 AM ALKPHOS 77 04/02/2021 04:34 AM Hemoglobin A1C result (most recent): No results found for: HGBA1C, [id number] LIPID panel result (most recent): No results found for: CHOLTOT, HDL, LDLCALC, LDLDIRECT, TRIGLYCERIDE UA results do not (most recent): Lab Results Component Value Date/Time PHUA 5.0 04/02/2021 02:46 PM SGUR 1.018 04/02/2021 02:46 PM URINELEUKOC 2+ (A) 04/02/2021 02:46 PM NITRITEUA Positive (A) 04/02/2021 02:46 PM KETONEURINE Negative 04/02/2021 02:46 PM PROTEINUA Negative 04/02/2021 02:46 PM GLUUA Negative 04/02/2021 02:46 PM BLOODUA 2+ (A) 04/02/2021 02:46 PM WBCU 51-100 (A) 04/02/2021 02:46 PM RBCUA 11-25 (A) 04/02/2021 02:46 PM BACTERIAUA 1+ (A) 04/02/2021 02:46 PM UREPITHELIAL 0-5 03/28/2021 01:24 AM Results for orders placed or performed during the hospital encounter of 03/13/21 EKG 12-LEAD Narrative Stationary ECG Study [facility] Test Date: 03/17/2021 7:05 PM Pat Name: VICK SIEGEL Department: 45 Room: On License Of [facility] Gender: F 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 Daily rounds include discussion of I and Os, avoiding hypotension and hypoglycemia. Daily medication review completed. Ongoing efforts to coordinate care, maintain euvolemia, adequate nutrition, electrolyte management, appropriate BP management, overall stability, and management of co-morbidites individually are being dictated by clinical progress. Documentation partially completed using dictation services and EMR. Please excuse any typographicalerrors that may have occurred. FEI Titus MD Internal Medicine Director // MMAKING SUPERVISOR * Estelle Aceves RN - 2021 5:21 AM CST Patient slept well. Medicated for headache at bedtime and verbalized relieve. Clemons draining well. Bowel regiment administered at bedtime and was very effective. BP well controlled this morning. Patient alert and oriented. MMAKING SUPERVISOR * Kennedi Alexander RN - 04/08/2021 12:08 PM CST Images from the original note were not included. Seen patient today for wound consult on neck incision and back incision. Patient is sitting in her wheelchair, AOX4, denies pain, no distress noted. Patient has multiple medical issues brown-sequard syndrome,Neck pain, cord compression, HTN.GERD, arthritis, is on lovenox for DVT prophylaxis. Photo taken neck incision is scabbed, back incision is healed.All questions and concerns were addressed and verbalizes understanding. Patient is pleasant, cooperative with care, motivated and tomorrow her birthday. Seen and examined by Dr. Rangel. Needs attended. Call light within reach. Cont to monitor. Anterior neck incision scabbed 04/08/2021 Upper back incision healed 04/08/2021. [facility] - Pressure Injury Assessment- Prevention and Treatment of Skin Care Policy - Protocol [facility] Approved by: [facility] - Medical Executive Committee Revision Date: 08/24/2017 Reviewed: 05/02/2019 ORDERS ARE ENTERED ???PER PROTOCOL?? Nursing Orders: ?? When a patient has: ? a documented Estrada score of 18 or less or a Estrada sub score of 2 or 1, the RN/INSIDE SALES COORDINATOR will initiate all appropriate interventions as per the Estrada Risk Assessment Algorithm on the Skin Care/Pressure Injury Prevention Pathway. ?? When a patient has a wound requiring treatment, the RN/INSIDE SALES COORDINATOR and Wound Care Nurses may order the Skin Care/Pressure Ulcer/Lower Extremity Ulcer Treatment Pathway and use appropriate treatments foundin the Nursing Algorithm. ?? The Wound Care Nurse may also order treatments found in the Wound Care Algorithm. MMAKING SUPERVISOR * Reggie Johnson MD - 04/08/2021 11:30 AM CST Images from the original note were not included. Internal Medicine/Rehabilitation Service Patient: Vick Siegel Date of : 1955 Admission Date: (03/27/2021) Vitals With Comments 04/08/2021 1100 04/08/2021 0507 04/07/2021 1937 04/07/2021 1618 BP: 178/99 122/75 144/80 168/91 Pulse: 73 72 88 81 Resp: -- 18 18 16 Temp: -- 98.3 ??F (36.8 ??C) 98.2 ??F (36.8 ??C) 98.8 ??F (37.1 ??C) Temp src: -- Oral Oral Oral SpO2: -- 95 % 96 % 98 % DIET GENERAL Effective Now Full Code Timeline (including subjective): 04/08/21- Patient seen resting in her room. Her blood pressure is elevated at this time. Sodium to be held. Labs to be repeated in the morning. Midodrine was adjusted as she is very orthostatic with therapies. Ongoing daily adjustments. We will continue to have conversations with her daily. OngoingMacrobid for UTI. 04/07/21- Patient seen resting in her room. She states she is doing okay. She did not sleep well last night from being woken up to turn. We discussed sleep hygiene. Patient is able to move on her own. She understands when to prevent bedsores. Will order sleep hygiene moving forward. Ongoing Macrobid for positive UTI. No other complaints. 04/04/21- Patient seen resting in her room. ??She states she is a little tired as she just completed some therapy. ??She states she is doing well overall. ??Macrobid started yesterday for UTI. ??We will continue to follow culture and sensitivities and make changes as needed. ??Patient is still not sleeping despite melatonin. ??Will discontinue and start trazodone. ??Patient has taken trazodone athome in the past. 04/03/2021- Patient seen resting in her room. ??She states she cannot sleep well. ??Melatonin was increased and scheduled for tonight. ??Will follow. ??UA reviewed and there is a likelihood of an infection. ??Will start Macrobid today and follow culture and sensitivities. ??Patient is appreciative and understands this plan. 04/02/21- Patient seen resting in her room. She is upset as she only has a few weeks of therapy left. She is very motivated to succeed and her goal is to walk out of here .??Though she understands this may not be realistic. Continue to encourage and support her. She slept much better with the melatonin last night. Ongoing pain management. Patient felt that her urine was odorous. Will obtain a UA. 04/01/21- Patient seen resting in her room. She states she is doing okay. She states the ice to hershoulder blades helped tremendously. Continue ice as needed for comfort. Will add Melatonin to sleep regimen tonight. Continue to encourage p.o. intake. BP was elevated and her Midodrine was held this morning. However, patient states she was still slightly dizzy with therapy. Her pulse was also elevated. Increased blood pressure may be related to pain as well. Will adjust Midodrine. 03/31/21- Patient seen resting in her room. She states she is doing well. She is slightly discouraged because she wants to heal faster than she is. Continue to encourage and provide emotional support. Incision is healing nicely. Lidocaine patches are not providing relief for her neck muscles. Will discontinue and offer BenGay cream. Ongoing orthostatic hypotension. Intake and output is decent. Will review midodrine. 03/29/21- A.m. labs completed. Patient able to take a shower. Clemons catheter placed in an effort torest bladder. Good urine output. Pain in anterior neck and middle back scribed as tightness. No adverse neurologic changes. Continue inpatient rehab process cord injury. 03/28/21- Initiate rehab. Full medication reconciliation has occurred. Meds, labs, and vitals reviewed. VSS. 03/27/2021 - Admission to [facility] - (Admission Data below) Assessment and Plan: Present on Admission: Debility-Rehab ??? Brown-Sequard syndrome- Flexeril, Gabapentin, Zanaflex ??? Neck pain ??? Cervical spondylosis with radiculopathy ??? Cord compression ??? HTN (hypertension) ??? GERD (gastroesophageal reflux disease) ??? Arthritis ??? Hyponatremia ??? Urinary retention ??? Neurological deficit present DVT PRX: Enoxaparin, SCDS Electrolyte derangement-Bind and Replenish Anemia-Follow H/H. Transfuse when clinically indicated Pain Control- titration throughout acute inpatient rehab process Nausea-Zofran prn Constipation-Bowel Regimen, follow output daily Polypharmacy-Follow. Medications fully reconciled Vitamin deficiency-Supplement Nursing Instructions: Incentive spirometry, I/O's, Vitals every 8 hours, Nutrition and ADLs Record Review: moderate Old medical records, labs, preadmission screening, previous radiology studies. Nutritional support and Blood sugar management - encourage adequate diet, caloric intake, fluid balance Avoid hypoglycemia Medication Profile: Allergies Allergen Reactions ??? Codeine Nausea and Vomiting ??? Oxycodone Nausea and Vomiting Scheduled Medication Profile: Facility-Administered Medications as of 04/08/2021 Medication Dose Frequency Provider Last Rate Last Admin ??? midodrine (PROAMATINE) tablet 10 mg 10 mg TID Be Rangel, DO ??? traZODone (DESYREL) tablet 50 mg 50 mg daily BEDTIME Yuliet Gomez, INFRASTRUCTURE ARCHITECT 50 mg at 04/07/21 2018 ??? yvpigulnxh-xraznnxywstvb-rgemkofl (FIORICET) 50-325-40 mg per tablet 1 Tablet 1 Tablet every 6 hours PRN Be Rangel, DO 1 Tablet at 04/05/21 0328 ??? nitrofurantoin (MACROBID) capsule 100 mg 100 mg BID WITH meals Yuliet Gomez, INFRASTRUCTURE ARCHITECT 100 mg at 04/08/21 0836 ??? tiZANidine (ZANAFLEX) tablet 4 mg 4 mg every 6 hours PRN Be Rangel, DO 4 mg at 04/08/21 1101 ??? acetaminophen (TYLENOL) tablet 650 mg 650 mg every 4 hours PRN Be Rangel, DO 650 mg at 04/08/21 0836 ??? methyl salicylate-menthol (BENGAY) topical cream every 6 hours PRN Yuliet Gomez, FEI ??? bisacodyl (THE MAGIC BULLET) rectal suppository 10 mg 10 mg daily Be Rangel, DO 10 mg at 04/07/212005 ??? gabapentin (NEURONTIN) capsule 200 mg 200 mg every 8 hours Yuliet Gomez NP 200 mg at 04/08/21 0555 ??? docusate sodium (COLACE) capsule 100 mg 100 mg BID Yuliet Gomez NP 100 mg at 04/08/21 0836 ??? pantoprazole (PROTONIX) tablet 40 mg 40 mg daily BEFORE breakfast Yuliet Gomez NP 40 mg at 04/08/21 0555 ??? sodium chloride tablet 2 Gram 2 Gram every 8 hours Yuliet Gomez NP 2 Gram at 04/08/21 0555 ??? polyethylene glycol (MIRALAX) packet 17 Gram 17 Gram daily Yuliet Gomez NP 17 Gram at 04/08/21 0836 ??? fludrocortisone (FLORINEF) tablet 0.2 mg 0.2 mg daily Yuliet Gomez NP 0.2 mg at 04/08/21 0836 ??? naloxone (NARCAN) 0.4 mg/mL injection 0.1 mg 0.1 mg see admin instructions Yuliet Gomez, FEI ??? ondansetron (ZOFRAN ODT) tablet 4 mg 4 mg every 6 hours PRN Yuliet Gomez, INFRASTRUCTURE ARCHITECT ??? prochlorperazine maleate (COMPAZINE) tablet 10 mg 10 mg every 6 hours PRN Yuliet Gomez, INFRASTRUCTURE ARCHITECT ??? bisacodyL (DULCOLAX) delayed release tablet 5 mg 5 mg daily PRN Yuliet Gomez, INFRASTRUCTURE ARCHITECT ??? calcium as carbonate (TUMS) 500 mg (200 mg elemental) chewable tablet 200 mg 200 mg every 4 hours PRN Yuliet Gomez, INFRASTRUCTURE ARCHITECT ??? 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 female who recently has been admitted to [facility] for comprehensive rehabilitation - multiple complex medical issues will impact medical management throughout the acute inpatient rehabilitation process. Pt has a significant medical history including but not limited to arthritis, GERD, and HTN. Pt presented to [facility] on 03/13 with c/o posterior headaches, neck pain, and R arm pain. She reported the pain as aching sharp pressure which has been ongoing for 3 months. She noted it is primarily located at the back of her neck, radiating into her posterior neck and off the R side into her shoulder and deltoid. Pt also reported numbness in 1st-3rd fingers on theright when sleeping, as well as intermittent sensation of both feet. Cervical MRI showed disc osteophyte at C4-5 on the right side causing severe neural foraminal stenosis as well as significant discbulge osteophyte on the left at C5-6, as well as mild cord compression at C4-5. There was also large disc herniation at T8 2-3 causing cord compression and T2 signal increase. Pt brought to OR and und erwent ACDF at C4/5 and C5/6 as well as posterior decompression/laminectomy at T2-[address] Patton. Pt tolerated procedure well. MRI and CT showed large calcified disc herniation at T2-3 unchanged, overall edema in cord at T2-3 slightly smaller than preop but seems brighter, correlating with BrownSequard syndrome. Myelogram on 03/17 did not show any significant residual or persistent cord compression. Pt experienced good return of function on right and some return of function on left. On Lovenox for dvt prx, can be fully AC. Pt began working with and tolerating therapy and has been deemed medically safe and appropriate for comprehensive rehab. PMR MD to have formal referral placed. Past Medical History: Diagnosis Date ??? Arthritis ??? GERD (gastroesophageal reflux disease) Difficulty taking NSAIDs. ??? HTN (hypertension) ??? Post-operative nausea and vomiting Past Surgical History: Procedure Laterality Date ??? ENDOSCOPY, UPPER GI ??? HX ANTERIOR CERVICAL DISCECTOMY W/ FUSION N/A 03/13/2021 CERVICAL DISCECTOMY FUSION 2 LEVEL ANTERIOR performed by Katherin Patton MD at [facility] OR [facility] ??? HX SECTION x 2 ??? HX COLONOSCOPY ??? HX HYSTERECTOMY ??? HX MENISCECTOMY Right N/A ??? MD FORREST W/O FACETEC FORAMOT/[facility] 04/13 VRT SEG, THORACIC N/A 03/13/2021 THORACIC LAMINECTOMY performed by Katherin Patton MD at [facility] OR [facility] Family History Problem Relation Name Age of Onset ??? Lung Cancer Father ??? Kidney Cancer Father ??? Hypertension Father ??? Other Father Tobacco Use ??? Cervical Cancer Mother ??? Hypertension Mother ??? Other Mother Tobacco Use ??? Breast Cancer Sister ??? Hypertension Sister ??? Hypertension Brother ??? Other Brother Tobacco Use ??? Stroke Maternal Grandmother ??? Other Maternal Grandfather Tobacco Use ??? Other Paternal Grandmother Tobacco Use ??? Lung Cancer Paternal Grandfather ??? Other Paternal Grandfather Tobacco Use ??? Breast Cancer Other Aunt Social History Tobacco Use ??? Smoking status: Former Smoker Packs/day: 0.50 Years: 5.00 Pack years: 2.50 Types: Cigarettes Quit date: 1980 Years since quittin.0 ??? Smokeless tobacco: Never Used Vaping Use ??? Vaping Use: Never used Substance Use Topics ??? Alcohol use: Never ??? Drug use: Never reports that she quit smoking about 42 years ago. Her smoking use included cigarettes. She has a 2.50 pack-year smoking history. She has never used smokeless tobacco. She reports that she does not drink alcohol and does not use drugs. Review of Systems: No new fever or chills, worsening cough or colds, chest pain No new abdominal pain, heat or cold intolerance weakness Objective Data: Vitals With Comments 04/08/2021 1100 04/08/2021 0507 04/07/2021 1937 04/07/2021 1618 BP: 178/99 122/75 144/80 168/91 Pulse: 73 72 88 81 Resp: -- 18 18 16 Temp: -- 98.3 ??F (36.8 ??C) 98.2 ??F (36.8 ??C) 98.8 ??F (37.1 ??C) Temp src: -- Oral Oral Oral SpO2: -- 95 % 96 % 98 % 04/08 0700 - 04/08 1859 In: 360 [P.O.:360] Out: 950 [Urine:950] General alert, awake, no cardiopulmonary distress, weakness Lungs Decreased breath sounds at bases- Heart regular rate and rhythm Abdomen soft, non-tender, with bowel sounds Extremities pulses noted, no cyanosis CBC result (most recent): Lab Results Component Value Date/Time WBC 3.6 (L) 04/02/2021 04:34 AM HGB 9.8 (L) 04/02/2021 04:34 AM HGBPOC 11.5 (L) 03/13/2021 02:58 PM HCT 30.7 (L) 04/02/2021 04:34 AM PLT 206 04/02/2021 04:34 AM MCV 93.0 04/02/2021 04:34 AM BMP result (most recent): Lab Results Component Value Date/Time NA 141 04/02/2021 04:34 AM K 3.7 04/02/2021 04:34 AM CL 107 04/02/2021 04:34 AM CO2 24 04/02/2021 04:34 AM CA 8.8 04/02/2021 04:34 AM BUN 30 (H) 04/02/2021 04:34 AM CREAT 0.71 04/02/2021 04:34 AM GLUCOSE 103 (H) 04/02/2021 04:34 AM ANIONGAP 10 04/02/2021 04:34 AM CMP result (most recent): Lab Results Component Value Date/Time NA 141 04/02/2021 04:34 AM K 3.7 04/02/2021 04:34 AM CL 107 04/02/2021 04:34 AM CO2 24 04/02/2021 04:34 AM CA 8.8 04/02/2021 04:34 AM BUN 30 (H) 04/02/2021 04:34 AM CREAT 0.71 04/02/2021 04:34 AM GLUCOSE 103 (H) 04/02/2021 04:34 AM TOTALPROTEIN 5.3 (L) 04/02/2021 04:34 AM ALBUMIN 3.0 (L) 04/02/2021 04:34 AM BILITOTAL 0.3 04/02/2021 04:34 AM ALKPHOS 77 04/02/2021 04:34 AM AST 25 04/02/2021 04:34 AM ALT 41 (H) 04/02/2021 04:34 AM ANIONGAP 10 04/02/2021 04:34 AM HEPATIC function panel result (most recent): Lab Results Component Value Date/Time ALT 41 (H) 04/02/2021 04:34 AM AST 25 04/02/2021 04:34 AM ALKPHOS 77 04/02/2021 04:34 AM Hemoglobin A1C result (most recent): No results found for: HGBA1C, [id number] LIPID panel result (most recent): No results found for: CHOLTOT, HDL, LDLCALC, LDLDIRECT, TRIGLYCERIDE UA results do not (most recent): Lab Results Component Value Date/Time PHUA 5.0 04/02/2021 02:46 PM SGUR 1.018 04/02/2021 02:46 PM URINELEUKOC 2+ (A) 04/02/2021 02:46 PM NITRITEUA Positive (A) 04/02/2021 02:46 PM KETONEURINE Negative 04/02/2021 02:46 PM PROTEINUA Negative 04/02/2021 02:46 PM GLUUA Negative 04/02/2021 02:46 PM BLOODUA 2+ (A) 04/02/2021 02:46 PM WBCU 51-100 (A) 04/02/2021 02:46 PM RBCUA 11-25 (A) 04/02/2021 02:46 PM BACTERIAUA 1+ (A) 04/02/2021 02:46 PM UREPITHELIAL 0-5 03/28/2021 01:24 AM Results for orders placed or performed during the hospital encounter of 03/13/21 EKG 12-LEAD Narrative Stationary ECG Study [facility] Test Date: 03/17/2021 7:05 PM Pat Name: VICK SIEGEL Department: 45 Room: 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 Daily rounds include discussion of I and Os, avoiding hypotension and hypoglycemia. Daily medication review completed. Ongoing efforts to coordinate care, maintain euvolemia, adequate nutrition, electrolyte management, appropriate BP management, overall stability, and management of co-morbidites individually are being dictated by clinical progress. Documentation partially completed using dictation services and EMR. Please excuse any typographicalerrors that may have occurred. FEI Titus MD Internal Medicine Director // MMAKING SUPERVISOR * Be Rangel, DO - 04/08/2021 11:05 AM CST Images from the original note were not included. Physical Medicine and Rehabilitation Progress Note Admission Date: 03/27/2021 Length of stay: 12 days Patient: Vick Siegel Chief complaint: My darn neck Subjective: Patient seen and examined during morning rounds. She notes increased pain in her posterior neck and trapezius muscles this morning. She also has found that her headache is positional in nature. She has been experiencing blood pressure drops with therapy where she feels symptomatically lightheaded and dizzy. Bowels moving with bowel routine. Last Bowel Movement (mm/dd/yyyy): 04/07/21 (04/07/212010) ROS: As per HPI and: No fever, chills, chest pain, shortness of breath, or cough. Social History: Lives alone in a 1 level home with 1-2 steps to enter Medications reviewed. Current Facility-Administered Medications: ??? midodrine (PROAMATINE) tablet 10 mg, 10 mg, Oral, TID, Be Rangel, ??? traZODone (DESYREL) tablet 50 mg, 50 mg, Oral, daily BEDTIME, Yuliet Gomez NP, 50 mg at 04/07/21 2018 ??? bfmcxsvgki-zcdzwkwpfmsvl-znhpimrl (FIORICET) 50-325-40 mg per tablet 1 Tablet, 1 Tablet, Oral, every 6 hours PRN, Be Rangel, , 1 Tablet at 04/05/21 0328 ??? nitrofurantoin (MACROBID) capsule 100 mg, 100 mg, Oral, BID WITH meals, Yuliet Gomez, FEI, 100 mg at 04/08/21 0836 ??? [DISCONTINUED] midodrine (PROAMATINE) tablet 10 mg, 10 mg, Oral, BID, Yuliet Gomez, INFRASTRUCTURE ARCHITECT, 10mg at 04/08/21 0555 ??? tiZANidine (ZANAFLEX) tablet 4 mg, 4 mg, Oral, every 6 hours PRN, Be Rangel, DO, 4 mg at 04/08/21 1101 ??? acetaminophen (TYLENOL) tablet 650 mg, 650 mg, Oral, every 4 hours PRN, Be Rangel, DO, 650 mg at 04/08/21 0836 ??? methyl salicylate-menthol (BENGAY) topical cream, , Topical, every 6 hours PRN, Yuliet Gomez, INFRASTRUCTURE ARCHITECT ??? bisacodyl (THE MAGIC BULLET) rectal suppository 10 mg, 10 mg, Rectal, daily, Brenton Rangel, , 10 mg at 04/07/212005 ??? gabapentin (NEURONTIN) capsule 200 mg, 200 mg, Oral, every 8 hours, Yuliet Gomez, INFRASTRUCTURE ARCHITECT, 200 mg at 04/08/21 0555 ??? docusate sodium (COLACE) capsule 100 mg, 100 mg, Oral, BID, Yuliet Gomez NP, 100 mg at 04/08/21 0836 ??? pantoprazole (PROTONIX) tablet 40 mg, 40 mg, Oral, daily BEFORE breakfast, Yuliet Gomez NP, 40 mg at 04/08/21 0555 ??? sodium chloride tablet 2 Gram, 2 Gram, Oral, every 8 hours, Yuliet Gomez NP, 2 Gram at 04/08/21 0555 ??? polyethylene glycol (MIRALAX) packet 17 Gram, 17 Gram, Oral, daily, Yuliet Gomez NP, 17 Gram at 04/08/21 0836 ??? fludrocortisone (FLORINEF) tablet 0.2 mg, 0.2 mg, Oral, daily, Yuliet Gomez NP, 0.2 mg at106/09/20 0836 ??? naloxone (NARCAN) 0.4 mg/mL injection 0.1 mg, 0.1 mg, IV, see admin instructions, Yuliet Gomez NP ??? ondansetron (ZOFRAN ODT) tablet 4 mg, 4 mg, Oral, every 6 hours PRN, Yuliet Gomez NP ??? prochlorperazine maleate (COMPAZINE) tablet 10 mg, 10 mg, Oral, every 6 hours PRN, Yuliet Gomez NP ??? bisacodyL (DULCOLAX) delayed release tablet 5 mg, 5 mg, Oral, daily PRN, Yuliet Gomez NP ??? calcium as carbonate (TUMS) 500 mg (200 mg elemental) chewable tablet 200 mg, 200 mg, Oral, every 4 hours PRN, Yuliet Gomez NP ??? enoxaparin (LOVENOX) injection 40 mg, 40 mg, subCUT, every 24 hours, Yuliet Gomez NP, 40 mg at 04/07/212005 Objective: Vitals: BP (!) 178/99 (BP Location: Left arm, Patient Position (BP): Sitting) Pulse 73 Temp 98.3 ??F (36.8 ??C) (Oral) Resp 18 Ht 5' 3 (1.6 m) Wt 83.9 kg (185 lb) SpO2 95% BMI 32.77 kg/m?? General:alert, no distress and cooperative Lungs: normal respiratory effort. Ext: No significant calf/ankle edema. Neuro: CN II-XII grossly intact, no facial droop Psyche: Mood is appropriate to circumstances. Affect is Euthymic Incision: Data Review: No results found for any visits on 03/27/21 (from the past 24 hour(s)). ASSESSMENT/PLAN: Patient is a 65 y.o. female who underwent C4-6 ACDF and T2-T3 laminectomy on 03/13/[address] 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 Functional status:Therapy progress noted today: -Discussed in team conference with nursing, therapyand rental boats caretaker. See note for details. Highlights include: Date of Conference: 04/08/21 Barriers to Discharge: Patient apprehension, Caregiver apprehension, Home entry, Bedroom/bathroom accessibility, Limited strength, balance, endurance, Requires caregiver assist, Functioning at wheelchair level, Lives alone and Limited caregiver availability Driver/Guide: Lorin Munoz DC Date: 04/15 PT/OT/Aide Activities of Daily Living Feeding: ind Grooming: ind Bathing: wes Upper Body Dressing: wes Lower Body Dressing: wes Toileting: total Toilet transfers: maxa Mobility Bed mobility: wes with leg straps Transfers: mod-maxa slide board transfers Wheelchair mobility: 150 feet SBA manual WC Progress toward goals and modifications to course of treatment: adjustments ongoing to her medications to manage her orthostatic hypotension symptoms Patient reports: Orthostatic hypotension ?? Rehab: -Impairments: Gait, function, self-care, mobility, ADLs - Initiate PT/OT rehabilitation nursing, recreation therapy, and social security assessor. -Isolation: None -Precautions: None -Pain: As needed Tylenol. Gabapentin. Tizanidine. Fioricet for headache -Fall prevention: Education and therapies ?? Neurogenic bladder: UA positive. Macrobid ?? Neurogenic bowel: Bowel routine with Magic bullet. Colace, MiraLAX ?? Skin/Wound Care: Monitor surgical incision for proper healing Sleep: Melatonin ?? Prophylaxis/Prevention: DVT: Lovenox GI: Protonix ?? Medical History/Active Issues: To be managed by primary medicine team Orthostatic hypotension: Midodrine, Florinef. Adjustments ongoing Hyponatremia: Salt tabs ?? FEN: DIET GENERAL Effective Now -Replete electrolytes as needed - Continue vitamins/supplements -Periodic labs, monitor trends ?? Disposition: -Anticipated location: Home -ELOS: 28 days -Code Status: Full Code ? F/U appts: -Huang Alonso MD after discharge from rehab -Dr. Patton -Rehab Discussed with medicine 04/08/2021 Electronically Signed By: Be Rangel DO ATTESTATION STATEMENTS Portions of this note were transcribed using [employer] speaking computerized voice recognition without a human social insurance analyst. This report may or may not have been adjusted for typographical, grammatical and syntax errors or malapropisms. MMAKING SUPERVISOR * Kami Cazares LPN - 04/07/2021 10:32 PM CST End of shift note: Received bedside report and assumed care of Pt from Erick Shook RN at 1845. Neuro/Psych: A/Ox4 speech clear and appropriate, able to make needs known. Resp/CV: Respirations even and regular, no s/sx SOB or dyspnea noted GI/: Clemons cath patent draining clear yellow urine to gravity Bowel routine completed per orders Skin/Wound: Skin remains warm, dry, and intact., No significant changes Pain: Pain well controlled with current regimen of, PRN Tylenol and Zanaflex General: Slept well throughout the night with no significant changes in condition. Fall precautionsmaintained with call light and personal items in reach and bed low with wheels locked. Will continue to monitor and report to oncoming nurse. Pending labs/procedures/other: None Patient has had no falls at this time and is fall risk level/color YELLOW Interventions in Place: [x] Bed Alarm [] Clip Chair Alarm [] Self-Releasing Belt (a one time order is required) [x] Call Light within reach, return demo by patient completed [] Handoff patient when returning him/her to room [x] Wheelchair/Walker out of reach [] Low Bed [] Mats in Place [] Observation Room [x] Fall Risk Magnet on Door [x] Fall Risk Magnet on Schedule Board [x] Fall Risk Armband on Patient [] Sitter [] Other If patient is a red fall risk, do not leave alone in the bathroom. Patient Education on Medications Education provided Re: Vick Siegle This education was provided to the patient Name of medication: All medications given during shift The education included the following: Administering their medication Kami Cazares LPN MMAKING SUPERVISOR * Be Rangel DO - 04/07/2021 1:32 PM CST Images from the original note were not included. Physical Medicine and Rehabilitation Progress Note Admission Date: 03/27/2021 Length of stay: 11 days Patient: Vick Siegel Chief complaint: Doing okay Subjective: Patient seen and examined during morning rounds. She notes good weekend. She reports her left leg is starting to improve in its strength. Spasms/muscle pain are improved with medications. She also notes improving sensation in her bilateral thighs. Bowels moving well with bowel routine Last Bowel Movement (mm/dd/yyyy): 04/06/21 (04/07/21 0900) ROS: As per HPI and: No fever, chills, chest pain, shortness of breath, or cough. Social History: Lives alone in a 1 level home with 1-2 steps to enter Medications reviewed. Current Facility-Administered Medications: ??? traZODone (DESYREL) tablet 50 mg, 50 mg, Oral, daily BEDTIME, Yuliet Gomez, FEI, 50 mg at 04/06/212034 ??? hxptvckpyx-cnsrspeaabtks-sdccsiwh (FIORICET) 50-325-40 mg per tablet 1 Tablet, 1 Tablet, Oral, every 6 hours PRN, Be Rangel DO, 1 Tablet at 04/05/218 ??? nitrofurantoin (MACROBID) capsule 100 mg, 100 mg, Oral, BID WITH meals, Yuliet Gomez, INFRASTRUCTURE ARCHITECT, 100 mg at 04/07/21 0918 ??? midodrine (PROAMATINE) tablet 10 mg, 10 mg, Oral, BID, Yuliet Gomez NP, 10 mg at 233 ??? tiZANidine (ZANAFLEX) tablet 4 mg, 4 mg, Oral, every 6 hours PRN, Be Rangel, , 4 mg at 04/07/21 0918 ??? acetaminophen (TYLENOL) tablet 650 mg, 650 mg, Oral, every 4 hours PRN, Be Rangel, DO, 650 mg at 04/07/21 0918 ??? methyl salicylate-menthol (BENGAY) topical cream, , Topical, every 6 hours PRN, Yuliet Gomez, FEI ??? bisacodyl (THE MAGIC BULLET) rectal suppository 10 mg, 10 mg, Rectal, daily, Brenton Rangel, , 10 mg at 04/06/21 1900 ??? gabapentin (NEURONTIN) capsule 200 mg, 200 mg, Oral, every 8 hours, Yuliet Gomez, FEI, 200 mg at 04/07/21 1233 ??? docusate sodium (COLACE) capsule 100 mg, 100 mg, Oral, BID, Yuliet Gomez, INFRASTRUCTURE ARCHITECT, 100 mg at 04/07/21 0918 ??? pantoprazole (PROTONIX) tablet 40 mg, 40 mg, Oral, daily BEFORE breakfast, Yuliet Gomez, FEI, 40 mg at 04/07/21 0540 ??? sodium chloride tablet 2 Gram, 2 Gram, Oral, every 8 hours, Yuliet Gomez, FEI, 2 Gram at 04/07/21 1233 ??? polyethylene glycol (MIRALAX) packet 17 Gram, 17 Gram, Oral, daily, Yuliet Gomez, FEI, 17 Gram at 04/07/21 0919 ??? fludrocortisone (FLORINEF) tablet 0.2 mg, 0.2 mg, Oral, daily, Yuliet Gomez NP, 0.2 mg at106/08/20 0918 ??? naloxone (NARCAN) 0.4 mg/mL injection 0.1 mg, 0.1 mg, IV, see admin instructions, Yuliet Gomez NP ??? ondansetron (ZOFRAN ODT) tablet 4 mg, 4 mg, Oral, every 6 hours PRN, Yuliet Gomez, INFRASTRUCTURE ARCHITECT ??? prochlorperazine maleate (COMPAZINE) tablet 10 mg, 10 mg, Oral, every 6 hours PRN, Yuliet Gomez, INFRASTRUCTURE ARCHITECT ??? bisacodyL (DULCOLAX) delayed release tablet 5 mg, 5 mg, Oral, daily PRN, Yuliet Gomez, INFRASTRUCTURE ARCHITECT ??? calcium as carbonate (TUMS) 500 mg (200 mg elemental) chewable tablet 200 mg, 200 mg, Oral, every 4 hours PRN, Yuliet Gomez, INFRASTRUCTURE ARCHITECT ??? enoxaparin (LOVENOX) injection 40 mg, 40 mg, subCUT, every 24 hours, Yuliet Gomez, INFRASTRUCTURE ARCHITECT, 40 mg at 04/06/212033 Objective: Vitals: BP (!) 146/86 (BP Location: Right arm, Patient Position (BP): Supine) Pulse 89 Temp 98.2 ??F (36.8 ??C) (Oral) Resp 18 Ht 5' 3 (1.6 m) Wt 83.9 kg (185 lb) SpO2 93% BMI 32.77 kg/m?? General:alert, no distress and cooperative Lungs:clear to auscultation bilaterally, normal respiratory effort. CV: Regular rate and rhythm Ext: No significant calf/ankle edema. Neuro: CN II-XII grossly intact, no facial droop Psyche: Mood is appropriate to circumstances. Affect is Euthymic Incision: Data Review: No results found for any visits on 03/27/21 (from the past 24 hour(s)). ASSESSMENT/PLAN: Patient is a 65 y.o. female who underwent C4-6 ACDF and T2-T3 laminectomy on 03/13/[address] 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 Functional status:Therapy progress noted today: -Discussed in team conference with nursing, therapyand rental boats caretaker. See note for details. Highlights include: Date of Conference: 04/01/21 Barriers to Discharge: Patient apprehension, Caregiver apprehension, Home entry, Bedroom/bathroom accessibility, Limited strength, balance, endurance, Requires caregiver assist, Functioning at wheelchair level and Limited caregiver availability Driver/Guide: Aleisha Tammy SUERO Date: 04/15 Activities of Daily Living Feeding: ind Grooming: ind Bathing: moda Upper Body Dressing: Mod assist Lower Body Dressing: moda Toileting: total Toilet transfers: maxa Mobility Bed mobility: maxa Transfers: Mod assist from lying to supine Gait: dep standing in // bars Wheelchair mobility: 100 feet sba Progress toward goals and modifications to course of treatment: Improving dressing Patient reports: Improving strength in left lower extremity ?? Rehab: -Impairments: Gait, function, self-care, mobility, ADLs - Initiate PT/OT rehabilitation nursing, recreation therapy, and social security assessor. -Isolation: None -Precautions: None -Pain: As needed Tylenol. Gabapentin. Tizanidine. Fioricet for headache -Fall prevention: Education and therapies ?? Neurogenic bladder: UA positive. Macrobid ?? Neurogenic bowel: Bowel routine with Magic bullet. Colace, MiraLAX ?? Skin/Wound Care: Monitor surgical incision for proper healing Sleep: Melatonin ?? Prophylaxis/Prevention: DVT: Lovenox GI: Protonix ?? Medical History/Active Issues: To be managed by primary medicine team Orthostatic hypotension: Midodrine, Florinef. Adjustments ongoing Hyponatremia: Salt tabs ?? FEN: DIET GENERAL Effective Now -Replete electrolytes as needed - Continue vitamins/supplements -Periodic labs, monitor trends ?? Disposition: -Anticipated location: Home -ELOS: 28 days -Code Status: Full Code ? F/U appts: -Huang Alonso MD after discharge from rehab -Dr. Patton -Rehab Discussed with medicine 04/07/2021 Electronically Signed By: Be Rangel DO ATTESTATION STATEMENTS Portions of this note were transcribed using [employer] speaking computerized voice recognition without a human social insurance analyst. This report may or may not have been adjusted for typographical, grammatical and syntax errors or malapropisms. MMAKING SUPERVISOR * Yuliet Gomez NP - 04/07/2021 12:32 PM CST Images from the original note were not included. Internal Medicine/Rehabilitation Service Patient: Vick Siegel Date of : 1955 Admission Date: (03/27/2021) Vitals With Comments 04/07/2021 0458 04/06/2021 1940 04/06/2021 0435 04/05/2021 1905 BP: 146/86 154/81 149/79 134/80 Pulse: 89 83 96 76 Resp: 18 18 18 18 Temp: 98.2 ??F (36.8 ??C) 98.9 ??F (37.2 ??C) 98.3 ??F (36.8 ??C) 98.4 ??F (36.9 ??C) Temp src: Oral Oral Oral Oral SpO2: 93 % 94 % 96 % 97 % DIET GENERAL Effective Now Full Code Timeline (including subjective): 04/07/21- Patient seen resting in her room. She states she is doing okay. She did not sleep well last night from being woken up to turn. We discussed sleep hygiene. Patient is able to move on her own. She understands when to prevent bedsores. Will order sleep hygiene moving forward. Ongoing Macrobid for positive UTI. No other complaints. 04/04/21- Patient seen resting in her room. ??She states she is a little tired as she just completed some therapy. ??She states she is doing well overall. ??Macrobid started yesterday for UTI. ??We will continue to follow culture and sensitivities and make changes as needed. ??Patient is still not sleeping despite melatonin. ??Will discontinue and start trazodone. ??Patient has taken trazodone athome in the past. 04/03/2021- Patient seen resting in her room. ??She states she cannot sleep well. ??Melatonin was increased and scheduled for tonight. ??Will follow. ??UA reviewed and there is a likelihood of an infection. ??Will start Macrobid today and follow culture and sensitivities. ??Patient is appreciative and understands this plan. 04/02/21- Patient seen resting in her room. She is upset as she only has a few weeks of therapy left. She is very motivated to succeed and her goal is to walk out of here .??Though she understands this may not be realistic. Continue to encourage and support her. She slept much better with the melatonin last night. Ongoing pain management. Patient felt that her urine was odorous. Will obtain a UA. 04/01/21- Patient seen resting in her room. She states she is doing okay. She states the ice to hershoulder blades helped tremendously. Continue ice as needed for comfort. Will add Melatonin to sleep regimen tonight. Continue to encourage p.o. intake. BP was elevated and her Midodrine was held this morning. However, patient states she was still slightly dizzy with therapy. Her pulse was also elevated. Increased blood pressure may be related to pain as well. Will adjust Midodrine. 03/31/21- Patient seen resting in her room. She states she is doing well. She is slightly discouraged because she wants to heal faster than she is. Continue to encourage and provide emotional support. Incision is healing nicely. Lidocaine patches are not providing relief for her neck muscles. Will discontinue and offer BenGay cream. Ongoing orthostatic hypotension. Intake and output is decent. Will review midodrine. 03/29/21- A.m. labs completed. Patient able to take a shower. Clemons catheter placed in an effort torest bladder. Good urine output. Pain in anterior neck and middle back scribed as tightness. No adverse neurologic changes. Continue inpatient rehab process cord injury. 03/28/21- Initiate rehab. Full medication reconciliation has occurred. Meds, labs, and vitals reviewed. VSS. 03/27/2021 - Admission to [facility] - (Admission Data below) Assessment and Plan: Present on Admission: Debility-Rehab ??? Brown-Sequard syndrome- Flexeril, Gabapentin, Zanaflex ??? Neck pain ??? Cervical spondylosis with radiculopathy ??? Cord compression ??? HTN (hypertension) ??? GERD (gastroesophageal reflux disease) ??? Arthritis ??? Hyponatremia ??? Urinary retention ??? Neurological deficit present DVT PRX: Enoxaparin, SCDS Electrolyte derangement-Bind and Replenish Anemia-Follow H/H. Transfuse when clinically indicated Pain Control- titration throughout acute inpatient rehab process Nausea-Zofran prn Constipation-Bowel Regimen, follow output daily Polypharmacy-Follow. Medications fully reconciled Vitamin deficiency-Supplement Nursing Instructions: Incentive spirometry, I/O's, Vitals every 8 hours, Nutrition and ADLs Record Review: moderate Old medical records, labs, preadmission screening, previous radiology studies. Nutritional support and Blood sugar management - encourage adequate diet, caloric intake, fluid balance Avoid hypoglycemia Medication Profile: Allergies Allergen Reactions ??? Codeine Nausea and Vomiting ??? Oxycodone Nausea and Vomiting Scheduled Medication Profile: Facility-Administered Medications as of 04/07/2021 Medication Dose Frequency Provider Last Rate Last Admin ??? traZODone (DESYREL) tablet 50 mg 50 mg daily BEDTIME Yuliet Gomez, INFRASTRUCTURE ARCHITECT 50 mg at 04/06/212034 ??? fmemvdlljn-dmhxweehjdliw-klarqfzp (FIORICET) 50-325-40 mg per tablet 1 Tablet 1 Tablet every 6 hours PRN Be Rangel, DO 1 Tablet at 04/05/21 0328 ??? nitrofurantoin (MACROBID) capsule 100 mg 100 mg BID WITH meals Yuliet Gomez INFRASTRUCTURE ARCHITECT 100 mg at 04/07/21 0918 ??? midodrine (PROAMATINE) tablet 10 mg 10 mg BID Yuliet Gomez INFRASTRUCTURE ARCHITECT 10 mg at 04/06/21 1408 ??? tiZANidine (ZANAFLEX) tablet 4 mg 4 mg every 6 hours PRN Be Rangel, DO 4 mg at 04/07/21 0918 ??? acetaminophen (TYLENOL) tablet 650 mg 650 mg every 4 hours PRN Be Rangel, DO 650 mg at 04/07/21 0918 ??? methyl salicylate-menthol (BENGAY) topical cream every 6 hours PRN Yuleit Gomez, FEI ??? bisacodyl (THE MAGIC BULLET) rectal suppository 10 mg 10 mg daily Be Rangel, DO 10 mg at 04/06/21 1900 ??? gabapentin (NEURONTIN) capsule 200 mg 200 mg every 8 hours Yuliet Gomez INFRASTRUCTURE ARCHITECT 200 mg at 04/07/21 0540 ??? docusate sodium (COLACE) capsule 100 mg 100 mg BID Yuliet Gomez, INFRASTRUCTURE ARCHITECT 100 mg at 04/07/21 0918 ??? pantoprazole (PROTONIX) tablet 40 mg 40 mg daily BEFORE breakfast Yuliet Gomez NP 40 mg at 04/07/21 0540 ??? sodium chloride tablet 2 Gram 2 Gram every 8 hours Yuliet Gomez NP 2 Gram at 04/07/21 0540 ??? polyethylene glycol (MIRALAX) packet 17 Gram 17 Gram daily Yuliet Gomez NP 17 Gram at 04/07/21 0919 ??? fludrocortisone (FLORINEF) tablet 0.2 mg 0.2 mg daily Yuliet oGmez NP 0.2 mg at 04/07/21 0918 ??? naloxone (NARCAN) 0.4 mg/mL injection 0.1 mg 0.1 mg see admin instructions Yuliet Gomez, FEI ??? ondansetron (ZOFRAN ODT) tablet 4 mg 4 mg every 6 hours PRN Yuliet Gomez, FEI ??? prochlorperazine maleate (COMPAZINE) tablet 10 mg 10 mg every 6 hours PRN Yuliet Gomez, FEI ??? bisacodyL (DULCOLAX) delayed release tablet 5 mg 5 mg daily PRN Yuliet Gomez, INFRASTRUCTURE ARCHITECT ??? calcium as carbonate (TUMS) 500 mg (200 mg elemental) chewable tablet 200 mg 200 mg every 4 hours PRN Yuliet Gomez, FEI ??? enoxaparin (LOVENOX) injection 40 mg 40 mg every 24 hours Yuliet Gomez NP 40 mg at 04/06/212033 Admission Data : CC: Debility/ Brown Sequard Syndrome/ s/p ACDF at C4/5 and C5/6 and Posterior decompression/laminectomy at T2-3 HPI: Vick Siegel is a 65 y.o. female who recently has been admitted to [facility] for comprehensive rehabilitation - multiple complex medical issues will impact medical management throughout the acute inpatient rehabilitation process. Pt has a significant medical history including but not limited to arthritis, GERD, and HTN. Pt presented to [facility] on 03/13 with c/o posterior headaches, neck pain, and R arm pain. She reported the pain as aching sharp pressure which has been ongoing for 3 months. She noted it is primarily located at the back of her neck, radiating into her posterior neck and off the R side into her shoulder and deltoid. Pt also reported numbness in 1st-3rd fingers on theright when sleeping, as well as intermittent sensation of both feet. Cervical MRI showed disc osteophyte at C4-5 on the right side causing severe neural foraminal stenosis as well as significant discbulge osteophyte on the left at C5-6, as well as mild cord compression at C4-5. There was also large disc herniation at T8 2-3 causing cord compression and T2 signal increase. Pt brought to OR and und erwent ACDF at C4/5 and C5/6 as well as posterior decompression/laminectomy at T2-[address] Patton. Pt tolerated procedure well. MRI and CT showed large calcified disc herniation at T2-3 unchanged, overall edema in cord at T2-3 slightly smaller than preop but seems brighter, correlating with BrownSequard syndrome. Myelogram on 03/17 did not show any significant residual or persistent cord compression. Pt experienced good return of function on right and some return of function on left. On Lovenox for dvt prx, can be fully AC. Pt began working with and tolerating therapy and has been deemed medically safe and appropriate for comprehensive rehab. PMR MD to have formal referral placed. Past Medical History: Diagnosis Date ??? Arthritis ??? GERD (gastroesophageal reflux disease) Difficulty taking NSAIDs. ??? HTN (hypertension) ??? Post-operative nausea and vomiting Past Surgical History: Procedure Laterality Date ??? ENDOSCOPY, UPPER GI ??? HX ANTERIOR CERVICAL DISCECTOMY W/ FUSION N/A 03/13/2021 CERVICAL DISCECTOMY FUSION 2 LEVEL ANTERIOR performed by Katherin Patton MD at [facility] OR [facility] ??? HX SECTION x 2 ??? HX COLONOSCOPY ??? HX HYSTERECTOMY ??? HX MENISCECTOMY Right N/A ??? MD FORREST W/O FACETEC FORAMOT/[facility] 04/13 VRT SEG, THORACIC N/A 03/13/2021 THORACIC LAMINECTOMY performed by Katherin Patton MD at [facility] Family History Problem Relation Name Age of Onset ??? Lung Cancer Father ??? Kidney Cancer Father ??? Hypertension Father ??? Other Father Tobacco Use ??? Cervical Cancer Mother ??? Hypertension Mother ??? Other Mother Tobacco Use ??? Breast Cancer Sister ??? Hypertension Sister ??? Hypertension Brother ??? Other Brother Tobacco Use ??? Stroke Maternal Grandmother ??? Other Maternal Grandfather Tobacco Use ??? Other Paternal Grandmother Tobacco Use ??? Lung Cancer Paternal Grandfather ??? Other Paternal Grandfather Tobacco Use ??? Breast Cancer Other Aunt Social History Tobacco Use ??? Smoking status: Former Smoker Packs/day: 0.50 Years: 5.00 Pack years: 2.50 Types: Cigarettes Quit date: 1980 Years since quittin.0 ??? Smokeless tobacco: Never Used Vaping Use ??? Vaping Use: Never used Substance Use Topics ??? Alcohol use: Never ??? Drug use: Never reports that she quit smoking about 42 years ago. Her smoking use included cigarettes. She has a 2.50 pack-year smoking history. She has never used smokeless tobacco. She reports that she does not drink alcohol and does not use drugs. Review of Systems: No new fever or chills, worsening cough or colds, chest pain No new abdominal pain, heat or cold intolerance weakness Objective Data: Vitals With Comments 04/07/2021 0458 04/06/2021 1940 04/06/2021 0435 04/05/2021 1905 BP: 146/86 154/81 149/79 134/80 Pulse: 89 83 96 76 Resp: 18 18 18 18 Temp: 98.2 ??F (36.8 ??C) 98.9 ??F (37.2 ??C) 98.3 ??F (36.8 ??C) 98.4 ??F (36.9 ??C) Temp src: Oral Oral Oral Oral SpO2: 93 % 94 % 96 % 97 % 04/07 700 - 04/07 185 In: 240 [P.O.:240] Out: 1200 [Urine:1200] General alert, awake, no cardiopulmonary distress, weakness Lungs Decreased breath sounds at bases- Heart regular rate and rhythm Abdomen soft, non-tender, with bowel sounds Extremities pulses noted, no cyanosis CBC result (most recent): Lab Results Component Value Date/Time WBC 3.6 (L) 04/02/2021 04:34 AM HGB 9.8 (L) 04/02/2021 04:34 AM HGBPOC 11.5 (L) 03/13/2021 02:58 PM HCT 30.7 (L) 04/02/2021 04:34 AM PLT 206 04/02/2021 04:34 AM MCV 93.0 04/02/2021 04:34 AM BMP result (most recent): Lab Results Component Value Date/Time NA 141 04/02/2021 04:34 AM K 3.7 04/02/2021 04:34 AM CL 107 04/02/2021 04:34 AM CO2 24 04/02/2021 04:34 AM CA 8.8 04/02/2021 04:34 AM BUN 30 (H) 04/02/2021 04:34 AM CREAT 0.71 04/02/2021 04:34 AM GLUCOSE 103 (H) 04/02/2021 04:34 AM ANIONGAP 10 04/02/2021 04:34 AM CMP result (most recent): Lab Results Component Value Date/Time NA 141 04/02/2021 04:34 AM K 3.7 04/02/2021 04:34 AM CL 107 04/02/2021 04:34 AM CO2 24 04/02/2021 04:34 AM CA 8.8 04/02/2021 04:34 AM BUN 30 (H) 04/02/2021 04:34 AM CREAT 0.71 04/02/2021 04:34 AM GLUCOSE 103 (H) 04/02/2021 04:34 AM TOTALPROTEIN 5.3 (L) 04/02/2021 04:34 AM ALBUMIN 3.0 (L) 04/02/2021 04:34 AM BILITOTAL 0.3 04/02/2021 04:34 AM ALKPHOS 77 04/02/2021 04:34 AM AST 25 04/02/2021 04:34 AM ALT 41 (H) 04/02/2021 04:34 AM ANIONGAP 10 04/02/2021 04:34 AM HEPATIC function panel result (most recent): Lab Results Component Value Date/Time ALT 41 (H) 04/02/2021 04:34 AM AST 25 04/02/2021 04:34 AM ALKPHOS 77 04/02/2021 04:34 AM Hemoglobin A1C result (most recent): No results found for: HGBA1C, [id number] LIPID panel result (most recent): No results found for: CHOLTOT, HDL, LDLCALC, LDLDIRECT, TRIGLYCERIDE UA results do not (most recent): Lab Results Component Value Date/Time PHUA 5.0 04/02/2021 02:46 PM SGUR 1.018 04/02/2021 02:46 PM URINELEUKOC 2+ (A) 04/02/2021 02:46 PM NITRITEUA Positive (A) 04/02/2021 02:46 PM KETONEURINE Negative 04/02/2021 02:46 PM PROTEINUA Negative 04/02/2021 02:46 PM GLUUA Negative 04/02/2021 02:46 PM BLOODUA 2+ (A) 04/02/2021 02:46 PM WBCU 51-100 (A) 04/02/2021 02:46 PM RBCUA 11-25 (A) 04/02/2021 02:46 PM BACTERIAUA 1+ (A) 04/02/2021 02:46 PM UREPITHELIAL 0-5 03/28/2021 01:24 AM Results for orders placed or performed during the hospital encounter of 03/13/21 EKG 12-LEAD Narrative Stationary ECG Study [facility] Test Date: 03/17/2021 7:05 PM Pat Name: VICK SIEGEL Department: 45 Room: On License Of [facility] 6 Gender: F 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 Daily rounds include discussion of I and Os, avoiding hypotension and hypoglycemia. Daily medication review completed. Ongoing efforts to coordinate care, maintain euvolemia, adequate nutrition, electrolyte management, appropriate BP management, overall stability, and management of co-morbidites individually are being dictated by clinical progress. Documentation partially completed using dictation services and EMR. Please excuse any typographicalerrors that may have occurred. FEI Titus MD Internal Medicine Director // MMAKING SUPERVISOR * Molly Flores GN - 04/04/2021 6:54 PM CST Head-to-toe re-assessment observations documented in flowsheet. Any noted deviations from baseline observed in head-to-toe assessment: none Any abnormal VS requiring intervention or close monitoring: yes - HTN. MD notified. See flowsheets for assessment details. No recurrences of dizziness on this shift. Complaints of pain treated with PRN Fioricet, acetaminophen. Call light within reach. No concerns voiced at this time. Patient has had no falls at this time and is fall risk level/color yellow Interventions in Place: [x] Bed Alarm [] Clip Chair Alarm [x] Call Light within reach, return demo by patient completed [] Handoff patient when returning him/her to room [x] Wheelchair/Walker out of reach [x] Low Bed [] Mats in Place [x] Fall Risk Magnet on Door [x] Fall Risk Magnet on Schedule Board [x] Fall Risk Armband on Patient [] Sitter [] Other If patient is red fall risk: [] Patient will not be left alone in bathroom [] Self-Releasing Belt (a one time order is required) [] Patient demonstrated ability to release wheelchair alarmed seatbelt. [] Observation Room Patient Education on Medications Education provided Re: Vick Siegel This education was provided to the patient Name of medication(s): all administered medications The education included the following: How to identify their medication, Administering their medication, Understanding the side effects oftheir medication MAX Cyr MMAKING SUPERVISOR * Yuliet Gomez NP - 04/04/2021 11:15 AM CST Images from the original note were not included. Internal Medicine/Rehabilitation Service Patient: Vick Siegel Date of : 1955 Admission Date: (03/27/2021) Vitals With Comments 04/04/2021 0500 04/03/2021 1920 04/03/2021 1500 04/03/2021 0437 BP: 137/80 159/84 157/93 128/76 notified nurse Pulse: 80 86 76 78 Resp: 18 18 20 16 Temp: 98.4 ??F (36.9 ??C) 99.3 ??F (37.4 ??C) 98.4 ??F (36.9 ??C) 98.9 ??F (37.2 ??C) Temp src: Oral Oral Oral Oral SpO2: 95 % 97 % 95 % 94 % DIET GENERAL Effective Now Full Code Timeline (including subjective): 04/04/21- Patient seen resting in her room. ??She states she is a little tired as she just completed some therapy. ??She states she is doing well overall. ??Macrobid started yesterday for UTI. ??We will continue to follow culture and sensitivities and make changes as needed. ??Patient is still not sleeping despite melatonin. ??Will discontinue and start trazodone. ??Patient has taken trazodone athome in the past. 04/03/2021- Patient seen resting in her room. ??She states she cannot sleep well. ??Melatonin was increased and scheduled for tonight. ??Will follow. ??UA reviewed and there is a likelihood of an infection. ??Will start Macrobid today and follow culture and sensitivities. ??Patient is appreciative and understands this plan. 04/02/21- Patient seen resting in her room. She is upset as she only has a few weeks of therapy left. She is very motivated to succeed and her goal is to walk out of here .??Though she understands this may not be realistic. Continue to encourage and support her. She slept much better with the melatonin last night. Ongoing pain management. Patient felt that her urine was odorous. Will obtain a UA. 04/01/21- Patient seen resting in her room. She states she is doing okay. She states the ice to hershoulder blades helped tremendously. Continue ice as needed for comfort. Will add Melatonin to sleep regimen tonight. Continue to encourage p.o. intake. BP was elevated and her Midodrine was held this morning. However, patient states she was still slightly dizzy with therapy. Her pulse was also elevated. Increased blood pressure may be related to pain as well. Will adjust Midodrine. 03/31/21- Patient seen resting in her room. She states she is doing well. She is slightly discouraged because she wants to heal faster than she is. Continue to encourage and provide emotional support. Incision is healing nicely. Lidocaine patches are not providing relief for her neck muscles. Will discontinue and offer BenGay cream. Ongoing orthostatic hypotension. Intake and output is decent. Will review midodrine. 03/29/21- A.m. labs completed. Patient able to take a shower. Clemons catheter placed in an effort torest bladder. Good urine output. Pain in anterior neck and middle back scribed as tightness. No adverse neurologic changes. Continue inpatient rehab process cord injury. 03/28/21- Initiate rehab. Full medication reconciliation has occurred. Meds, labs, and vitals reviewed. VSS. 03/27/2021 - Admission to [facility] - (Admission Data below) Assessment and Plan: Present on Admission: Debility-Rehab ??? Brown-Sequard syndrome- Flexeril, Gabapentin, Zanaflex ??? Neck pain ??? Cervical spondylosis with radiculopathy ??? Cord compression ??? HTN (hypertension) ??? GERD (gastroesophageal reflux disease) ??? Arthritis ??? Hyponatremia ??? Urinary retention ??? Neurological deficit present DVT PRX: Enoxaparin, SCDS Electrolyte derangement-Bind and Replenish Anemia-Follow H/H. Transfuse when clinically indicated Pain Control- titration throughout acute inpatient rehab process Nausea-Zofran prn Constipation-Bowel Regimen, follow output daily Polypharmacy-Follow. Medications fully reconciled Vitamin deficiency-Supplement Nursing Instructions: Incentive spirometry, I/O's, Vitals every 8 hours, Nutrition and ADLs Record Review: moderate Old medical records, labs, preadmission screening, previous radiology studies. Nutritional support and Blood sugar management - encourage adequate diet, caloric intake, fluid balance Avoid hypoglycemia Medication Profile: Allergies Allergen Reactions ??? Codeine Nausea and Vomiting ??? Oxycodone Nausea and Vomiting Scheduled Medication Profile: Facility-Administered Medications as of 04/04/2021 Medication Dose Frequency Provider Last Rate Last Admin ??? comenygqvr-ggplhphnvuptc-cjyiikwp (FIORICET) 50-325-40 mg per tablet 1 Tablet 1 Tablet every 6 hours PRN Be Rangel, DO 1 Tablet at 04/04/21 0805 ??? melatonin tablet 9 mg 9 mg daily BEDTIME Be Rangel, DO 9 mg at 04/03/212035 ??? nitrofurantoin (MACROBID) capsule 100 mg 100 mg BID WITH meals Yulite Gomez, INFRASTRUCTURE ARCHITECT 100 mg at 04/04/21 0805 ??? midodrine (PROAMATINE) tablet 10 mg 10 mg BID Yuliet Gomez, INFRASTRUCTURE ARCHITECT 10 mg at 04/03/21 1255 ??? tiZANidine (ZANAFLEX) tablet 4 mg 4 mg every 6 hours PRN Be Rangel, DO 4 mg at 04/04/21 0226 ??? acetaminophen (TYLENOL) tablet 650 mg 650 mg every 4 hours PRN Be Rangel, DO 650 mg at 04/04/21 0205 ??? methyl salicylate-menthol (BENGAY) topical cream every 6 hours PRN Yuliet Gomez, FEI ??? bisacodyl (THE MAGIC BULLET) rectal suppository 10 mg 10 mg daily Be Rangel, DO 10 mg at 04/03/21 1900 ??? gabapentin (NEURONTIN) capsule 200 mg 200 mg every 8 hours Yuliet Gomez, INFRASTRUCTURE ARCHITECT 200 mg at 04/04/21 0506 ??? docusate sodium (COLACE) capsule 100 mg 100 mg BID Yuliet Gomez, INFRASTRUCTURE ARCHITECT 100 mg at 04/04/21 0805 ??? pantoprazole (PROTONIX) tablet 40 mg 40 mg daily BEFORE breakfast Yuliet Gomez INFRASTRUCTURE ARCHITECT 40 mg at 04/04/21 0507 ??? sodium chloride tablet 2 Gram 2 Gram every 8 hours Yuliet Gomez, FEI 2 Gram at 04/04/21 0507 ??? polyethylene glycol (MIRALAX) packet 17 Gram 17 Gram daily Yuliet Gomez, INFRASTRUCTURE ARCHITECT 17 Gram at 04/04/21 0805 ??? fludrocortisone (FLORINEF) tablet 0.2 mg 0.2 mg daily Yuliet Gomez, INFRASTRUCTURE ARCHITECT 0.2 mg at 04/04/21 0805 ??? naloxone (NARCAN) 0.4 mg/mL injection 0.1 mg 0.1 mg see admin instructions Yuliet Gomez, FEI ??? ondansetron (ZOFRAN ODT) tablet 4 mg 4 mg every 6 hours PRN Yuliet Gomez, INFRASTRUCTURE ARCHITECT ??? prochlorperazine maleate (COMPAZINE) tablet 10 mg 10 mg every 6 hours PRN Yuliet Gomez, INFRASTRUCTURE ARCHITECT ??? bisacodyL (DULCOLAX) delayed release tablet 5 mg 5 mg daily PRN Yuliet Gomez, INFRASTRUCTURE ARCHITECT ??? calcium as carbonate (TUMS) 500 mg (200 mg elemental) chewable tablet 200 mg 200 mg every 4 hours PRN Yuliet Gomez, INFRASTRUCTURE ARCHITECT ??? enoxaparin (LOVENOX) injection 40 mg 40 mg every 24 hours Yuliet Gomez, INFRASTRUCTURE ARCHITECT 40 mg at 04/03/212035 Admission Data : CC: Debility/ Brown Sequard Syndrome/ s/p ACDF at C4/5 and C5/6 and Posterior decompression/laminectomy at T2-3 HPI: Vick Siegel is a 65 y.o. female who recently has been admitted to [facility] for comprehensive rehabilitation - multiple complex medical issues will impact medical management throughout the acute inpatient rehabilitation process. Pt has a significant medical history including but not limited to arthritis, GERD, and HTN. Pt presented to [facility] on 03/13 with c/o posterior headaches, neck pain, and R arm pain. She reported the pain as aching sharp pressure which has been ongoing for 3 months. She noted it is primarily located at the back of her neck, radiating into her posterior neck and off the R side into her shoulder and deltoid. Pt also reported numbness in 1st-3rd fingers on theright when sleeping, as well as intermittent sensation of both feet. Cervical MRI showed disc osteophyte at C4-5 on the right side causing severe neural foraminal stenosis as well as significant discbulge osteophyte on the left at C5-6, as well as mild cord compression at C4-5. There was also large disc herniation at T8 2-3 causing cord compression and T2 signal increase. Pt brought to OR and und erwent ACDF at C4/5 and C5/6 as well as posterior decompression/laminectomy at T2-[address] Patton. Pt tolerated procedure well. MRI and CT showed large calcified disc herniation at T2-3 unchanged, overall edema in cord at T2-3 slightly smaller than preop but seems brighter, correlating with BrownSequard syndrome. Myelogram on 03/17 did not show any significant residual or persistent cord compression. Pt experienced good return of function on right and some return of function on left. On Lovenox for dvt prx, can be fully AC. Pt began working with and tolerating therapy and has been deemed medically safe and appropriate for comprehensive rehab. PMR MD to have formal referral placed. Past Medical History: Diagnosis Date ??? Arthritis ??? GERD (gastroesophageal reflux disease) Difficulty taking NSAIDs. ??? HTN (hypertension) ??? Post-operative nausea and vomiting Past Surgical History: Procedure Laterality Date ??? ENDOSCOPY, UPPER GI ??? HX ANTERIOR CERVICAL DISCECTOMY W/ FUSION N/A 03/13/2021 CERVICAL DISCECTOMY FUSION 2 LEVEL ANTERIOR performed by Katherin Patton MD at [facility] OR [facility] ??? HX SECTION x 2 ??? HX COLONOSCOPY ??? HX HYSTERECTOMY ??? HX MENISCECTOMY Right N/A ??? MD FORREST W/O FACETEC FORAMOT/[facility] 04/13 VRT SEG, THORACIC N/A 03/13/2021 THORACIC LAMINECTOMY performed by Katherin Patton MD at [facility] OR [facility] Family History Problem Relation Name Age of Onset ??? Lung Cancer Father ??? Kidney Cancer Father ??? Hypertension Father ??? Other Father Tobacco Use ??? Cervical Cancer Mother ??? Hypertension Mother ??? Other Mother Tobacco Use ??? Breast Cancer Sister ??? Hypertension Sister ??? Hypertension Brother ??? Other Brother Tobacco Use ??? Stroke Maternal Grandmother ??? Other Maternal Grandfather Tobacco Use ??? Other Paternal Grandmother Tobacco Use ??? Lung Cancer Paternal Grandfather ??? Other Paternal Grandfather Tobacco Use ??? Breast Cancer Other Aunt Social History Tobacco Use ??? Smoking status: Former Smoker Packs/day: 0.50 Years: 5.00 Pack years: 2.50 Types: Cigarettes Quit date: 1980 Years since quittin.0 ??? Smokeless tobacco: Never Used Vaping Use ??? Vaping Use: Never used Substance Use Topics ??? Alcohol use: Never ??? Drug use: Never reports that she quit smoking about 42 years ago. Her smoking use included cigarettes. She has a 2.50 pack-year smoking history. She has never used smokeless tobacco. She reports that she does not drink alcohol and does not use drugs. Review of Systems: No new fever or chills, worsening cough or colds, chest pain No new abdominal pain, heat or cold intolerance weakness Objective Data: Vitals With Comments 04/04/2021 0500 04/03/2021 1920 04/03/2021 1500 04/03/2021 0437 BP: 137/80 159/84 157/93 128/76 notified nurse Pulse: 80 86 76 78 Resp: 18 18 20 16 Temp: 98.4 ??F (36.9 ??C) 99.3 ??F (37.4 ??C) 98.4 ??F (36.9 ??C) 98.9 ??F (37.2 ??C) Temp src: Oral Oral Oral Oral SpO2: 95 % 97 % 95 % 94 % 04/04 0700 - 04/04 1859 In: 360 [P.O.:360] Out: 400 [Urine:400] General alert, awake, no cardiopulmonary distress, weakness Lungs Decreased breath sounds at bases- Heart regular rate and rhythm Abdomen soft, non-tender, with bowel sounds Extremities pulses noted, no cyanosis CBC result (most recent): Lab Results Component Value Date/Time WBC 3.6 (L) 04/02/2021 04:34 AM HGB 9.8 (L) 04/02/2021 04:34 AM HGBPOC 11.5 (L) 03/13/2021 02:58 PM HCT 30.7 (L) 04/02/2021 04:34 AM PLT 206 04/02/2021 04:34 AM MCV 93.0 04/02/2021 04:34 AM BMP result (most recent): Lab Results Component Value Date/Time NA 141 04/02/2021 04:34 AM K 3.7 04/02/2021 04:34 AM CL 107 04/02/2021 04:34 AM CO2 24 04/02/2021 04:34 AM CA 8.8 04/02/2021 04:34 AM BUN 30 (H) 04/02/2021 04:34 AM CREAT 0.71 04/02/2021 04:34 AM GLUCOSE 103 (H) 04/02/2021 04:34 AM ANIONGAP 10 04/02/2021 04:34 AM CMP result (most recent): Lab Results Component Value Date/Time NA 141 04/02/2021 04:34 AM K 3.7 04/02/2021 04:34 AM CL 107 04/02/2021 04:34 AM CO2 24 04/02/2021 04:34 AM CA 8.8 04/02/2021 04:34 AM BUN 30 (H) 04/02/2021 04:34 AM CREAT 0.71 04/02/2021 04:34 AM GLUCOSE 103 (H) 04/02/2021 04:34 AM TOTALPROTEIN 5.3 (L) 04/02/2021 04:34 AM ALBUMIN 3.0 (L) 04/02/2021 04:34 AM BILITOTAL 0.3 04/02/2021 04:34 AM ALKPHOS 77 04/02/2021 04:34 AM AST 25 04/02/2021 04:34 AM ALT 41 (H) 04/02/2021 04:34 AM ANIONGAP 10 04/02/2021 04:34 AM HEPATIC function panel result (most recent): Lab Results Component Value Date/Time ALT 41 (H) 04/02/2021 04:34 AM AST 25 04/02/2021 04:34 AM ALKPHOS 77 04/02/2021 04:34 AM Hemoglobin A1C result (most recent): No results found for: HGBA1C, DBNT2ALAC LIPID panel result (most recent): No results found for: CHOLTOT, HDL, LDLCALC, LDLDIRECT, TRIGLYCERIDE UA results do not (most recent): Lab Results Component Value Date/Time PHUA 5.0 04/02/2021 02:46 PM SGUR 1.018 04/02/2021 02:46 PM URINELEUKOC 2+ (A) 04/02/2021 02:46 PM NITRITEUA Positive (A) 04/02/2021 02:46 PM KETONEURINE Negative 04/02/2021 02:46 PM PROTEINUA Negative 04/02/2021 02:46 PM GLUUA Negative 04/02/2021 02:46 PM BLOODUA 2+ (A) 04/02/2021 02:46 PM WBCU 51-100 (A) 04/02/2021 02:46 PM RBCUA 11-25 (A) 04/02/2021 02:46 PM BACTERIAUA 1+ (A) 04/02/2021 02:46 PM UREPITHELIAL 0-5 03/28/2021 01:24 AM Results for orders placed or performed during the hospital encounter of 03/13/21 EKG 12-LEAD Narrative Stationary ECG Study [facility] Test Date: 03/17/2021 7:05 PM Pat Name: VICK SIEGEL Department: 45 Room: [facility] Gender: F Boilermaker Fitter: harlan : 1955 Requested By: KATHERIN Lindsay Order Number: [id number] Reading MD: Bhupinder Morales Measurements Intervals Aurora Rate: 63 P: 53 MD: 165 QRS: 15 QRSD: 96 T: 22 QT: 433 QTc: 444 Interpretive Statements Sinus rhythm Ventricular premature complex Left atrial enlargement Low voltage, precordial leads PRWP Electronically Signed On 03-18-2021 8:08:07 BROOMMAKING SUPERVISOR by Bhupinder Morales Hospitalist Statement: The Internal Medicine team participates in patient care to directly impact the acute rehabilitationprocess. Daily rounds include discussion of I and Os, avoiding hypotension and hypoglycemia. Daily medication review completed. Ongoing efforts to coordinate care, maintain euvolemia, adequate nutrition, electrolyte management, appropriate BP management, overall stability, and management of co-morbidites individually are being dictated by clinical progress. Documentation partially completed using dictation services and EMR. Please excuse any typographicalerrors that may have occurred. FEI Titus MD Internal Medicine Director // MMAKING SUPERVISOR * Gerald Duarte RN - 04/04/2021 4:00 AM CST Patient has had no falls at this time and is fall risk level/color yellow Interventions in Place: [x] Bed Alarm [] Clip Chair Alarm [] Self-Releasing Belt (a one time order is required) [x] Call Light within reach, return demo by patient completed [] Handoff patient when returning him/her to room [x] Wheelchair/Walker out of reach [] Low Bed [] Mats in Place [] Observation Room [x] Fall Risk Magnet on Door [x] Fall Risk Magnet on Schedule Board [x] Fall Risk Armband on Patient [] Sitter [] Other If patient is a red fall risk, do not leave alone in the bathroom. Patient Education on Medications Education provided Re: Vick Siegel This education was provided to the patient Name of medication: all due meds The education included the following: Understanding the side effects of their medication GERALD DUARTE RN MMAKING SUPERVISOR * Molly Flores GN - 04/03/2021 6:11 PM CST Head-to-toe re-assessment observations documented in flowsheet. Any noted deviations from baseline observed in head-to-toe assessment: none Any abnormal VS requiring intervention or close monitoring: no Complaints of pain treated with PRN fiorcet, tylenol. Call light within reach. No concerns voiced at this time. Patient has had no falls at this time and is fall risk level/color yellow Interventions in Place: [x] Bed Alarm [] Clip Chair Alarm [x] Call Light within reach, return demo by patient completed [] Handoff patient when returning him/her to room [x] Wheelchair/Walker out of reach [x] Low Bed [] Mats in Place [x] Fall Risk Magnet on Door [x] Fall Risk Magnet on Schedule Board [x] Fall Risk Armband on Patient [] Sitter [] Other If patient is red fall risk: [] Patient will not be left alone in bathroom [] Self-Releasing Belt (a one time order is required) [] Patient demonstrated ability to release wheelchair alarmed seatbelt. [] Observation Room Patient Education on Medications Education provided Re: Vick Siegel This education was provided to the patient Name of medication(s): all administered medications The education included the following: How to identify their medication, Administering their medication, Understanding the side effects oftheir medication MAX Cyr MMAKING SUPERVISOR * Yuliet Gomez, FEI - 04/03/2021 11:01 AM CST Images from the original note were not included. Internal Medicine/Rehabilitation Service Patient: Vick Siegel Date of : 1955 Admission Date: (03/27/2021) Vitals With Comments 04/03/2021 0437 04/02/2021 1915 04/02/2021 1600 04/02/2021 1251 BP: 128/76 143/82 178/84 115/76 Pulse: 78 77 66 -- Resp: 16 16 16 -- Temp: 98.9 ??F (37.2 ??C) 97.7 ??F (36.5 ??C) 98 ??F (36.7 ??C) -- Temp src: Oral Oral Oral -- SpO2: 94 % 98 % 98 % -- DIET GENERAL Effective Now Full Code Timeline (including subjective): 04/03/2021- Patient seen resting in her room. ??She states she cannot sleep well. ??Melatonin was increased and scheduled for tonight. ??Will follow. ??UA reviewed and there is a likelihood of an infection. ??Will start Macrobid today and follow culture and sensitivities. ??Patient is appreciative and understands this plan. 04/02/21- Patient seen resting in her room. She is upset as she only has a few weeks of therapy left. She is very motivated to succeed and her goal is to walk out of here .??Though she understands this may not be realistic. Continue to encourage and support her. She slept much better with the melatonin last night. Ongoing pain management. Patient felt that her urine was odorous. Will obtain a UA. 04/01/21- Patient seen resting in her room. She states she is doing okay. She states the ice to hershoulder blades helped tremendously. Continue ice as needed for comfort. Will add Melatonin to sleep regimen tonight. Continue to encourage p.o. intake. BP was elevated and her Midodrine was held this morning. However, patient states she was still slightly dizzy with therapy. Her pulse was also elevated. Increased blood pressure may be related to pain as well. Will adjust Midodrine. 03/31/21- Patient seen resting in her room. She states she is doing well. She is slightly discouraged because she wants to heal faster than she is. Continue to encourage and provide emotional support. Incision is healing nicely. Lidocaine patches are not providing relief for her neck muscles. Will discontinue and offer BenGay cream. Ongoing orthostatic hypotension. Intake and output is decent. Will review midodrine. 03/29/21- A.m. labs completed. Patient able to take a shower. Clemons catheter placed in an effort torest bladder. Good urine output. Pain in anterior neck and middle back scribed as tightness. No adverse neurologic changes. Continue inpatient rehab process cord injury. 03/28/21- Initiate rehab. Full medication reconciliation has occurred. Meds, labs, and vitals reviewed. VSS. 03/27/2021 - Admission to [facility] - (Admission Data below) Assessment and Plan: Present on Admission: Debility-Rehab ??? Brown-Sequard syndrome- Flexeril, Gabapentin, Zanaflex ??? Neck pain ??? Cervical spondylosis with radiculopathy ??? Cord compression ??? HTN (hypertension) ??? GERD (gastroesophageal reflux disease) ??? Arthritis ??? Hyponatremia ??? Urinary retention ??? Neurological deficit present DVT PRX: Enoxaparin, SCDS Electrolyte derangement-Bind and Replenish Anemia-Follow H/H. Transfuse when clinically indicated Pain Control- titration throughout acute inpatient rehab process Nausea-Zofran prn Constipation-Bowel Regimen, follow output daily Polypharmacy-Follow. Medications fully reconciled Vitamin deficiency-Supplement Nursing Instructions: Incentive spirometry, I/O's, Vitals every 8 hours, Nutrition and ADLs Record Review: moderate Old medical records, labs, preadmission screening, previous radiology studies. Nutritional support and Blood sugar management - encourage adequate diet, caloric intake, fluid balance Avoid hypoglycemia Medication Profile: Allergies Allergen Reactions ??? Codeine Nausea and Vomiting ??? Oxycodone Nausea and Vomiting Scheduled Medication Profile: Facility-Administered Medications as of 04/03/2021 Medication Dose Frequency Provider Last Rate Last Admin ??? ganwbkttyf-vwnqwkatzuioh-tupbhyyt (FIORICET) 50-325-40 mg per tablet 1 Tablet 1 Tablet every 6 hours PRN Be Rangel, DO ??? melatonin tablet 9 mg 9 mg daily BEDTIME Be Rangel, DO ??? midodrine (PROAMATINE) tablet 10 mg 10 mg BID Yuliet Gomez NP 10 mg at 04/03/213 ??? tiZANidine (ZANAFLEX) tablet 4 mg 4 mg every 6 hours PRN Be Rangel, DO 4 mg at 04/03/21 0229 ??? acetaminophen (TYLENOL) tablet 650 mg 650 mg every 4 hours PRN Be Rangel, DO 650 mg at 04/03/21 0736 ??? methyl salicylate-menthol (BENGAY) topical cream every 6 hours PRN Yuliet Gomez, FEI ??? bisacodyl (THE MAGIC BULLET) rectal suppository 10 mg 10 mg daily Be Rangel, DO 10 mg at 04/02/21 1950 ??? gabapentin (NEURONTIN) capsule 200 mg 200 mg every 8 hours Yuliet Gomez NP 200 mg at 04/03/213 ??? docusate sodium (COLACE) capsule 100 mg 100 mg BID Yuliet Gomez NP 100 mg at 04/03/2136 ??? pantoprazole (PROTONIX) tablet 40 mg 40 mg daily BEFORE breakfast Yuliet Gomez NP 40 mg at 04/03/213 ??? sodium chloride tablet 2 Gram 2 Gram every 8 hours Yuliet Gomez NP 2 Gram at 04/03/213 ??? polyethylene glycol (MIRALAX) packet 17 Gram 17 Gram daily Yuliet Gomez NP 17 Gram at 04/03/2136 ??? fludrocortisone (FLORINEF) tablet 0.2 mg 0.2 mg daily Yuliet Gomez NP 0.2 mg at 04/03/2136 ??? naloxone (NARCAN) 0.4 mg/mL injection 0.1 mg 0.1 mg see admin instructions Yuliet Gomez, FEI ??? ondansetron (ZOFRAN ODT) tablet 4 mg 4 mg every 6 hours PRN Yuliet Gomez, FEI ??? prochlorperazine maleate (COMPAZINE) tablet 10 mg 10 mg every 6 hours PRN Yuliet Gomez, INFRASTRUCTURE ARCHITECT ??? bisacodyL (DULCOLAX) delayed release tablet 5 mg 5 mg daily PRN Yuliet Gomez, INFRASTRUCTURE ARCHITECT ??? calcium as carbonate (TUMS) 500 mg (200 mg elemental) chewable tablet 200 mg 200 mg every 4 hours PRN Yuliet Gomez, INFRASTRUCTURE ARCHITECT ??? enoxaparin (LOVENOX) injection 40 mg 40 mg every 24 hours Yuliet Gomez, INFRASTRUCTURE ARCHITECT 40 mg at 04/02/212001 Admission Data : CC: Debility/ Brown Sequard Syndrome/ s/p ACDF at C4/5 and C5/6 and Posterior decompression/laminectomy at T2-3 HPI: Vick iSegel is a 65 y.o. female who recently has been admitted to [facility] for comprehensive rehabilitation - multiple complex medical issues will impact medical management throughout the acute inpatient rehabilitation process. Pt has a significant medical history including but not limited to arthritis, GERD, and HTN. Pt presented to [facility] on 03/13 with c/o posterior headaches, neck pain, and R arm pain. She reported the pain as aching sharp pressure which has been ongoing for 3 months. She noted it is primarily located at the back of her neck, radiating into her posterior neck and off the R side into her shoulder and deltoid. Pt also reported numbness in 1st-3rd fingers on theright when sleeping, as well as intermittent sensation of both feet. Cervical MRI showed disc osteophyte at C4-5 on the right side causing severe neural foraminal stenosis as well as significant discbulge osteophyte on the left at C5-6, as well as mild cord compression at C4-5. There was also large disc herniation at T8 2-3 causing cord compression and T2 signal increase. Pt brought to OR and und erwent ACDF at C4/5 and C5/6 as well as posterior decompression/laminectomy at T2-[address] Patton. Pt tolerated procedure well. MRI and CT showed large calcified disc herniation at T2-3 unchanged, overall edema in cord at T2-3 slightly smaller than preop but seems brighter, correlating with BrownSequard syndrome. Myelogram on 03/17 did not show any significant residual or persistent cord compression. Pt experienced good return of function on right and some return of function on left. On Lovenox for dvt prx, can be fully AC. Pt began working with and tolerating therapy and has been deemed medically safe and appropriate for comprehensive rehab. PMR MD to have formal referral placed. Past Medical History: Diagnosis Date ??? Arthritis ??? GERD (gastroesophageal reflux disease) Difficulty taking NSAIDs. ??? HTN (hypertension) ??? Post-operative nausea and vomiting Past Surgical History: Procedure Laterality Date ??? ENDOSCOPY, UPPER GI ??? HX ANTERIOR CERVICAL DISCECTOMY W/ FUSION N/A 03/13/2021 CERVICAL DISCECTOMY FUSION 2 LEVEL ANTERIOR performed by Katherin Patton MD at [facility] OR [facility] ??? HX SECTION x 2 ??? HX COLONOSCOPY ??? HX HYSTERECTOMY ??? HX MENISCECTOMY Right N/A ??? MD FORREST W/O FACETEC FORAMOT/[facility] 04/13 VRT SEG, THORACIC N/A 03/13/2021 THORACIC LAMINECTOMY performed by Katherin Patton MD at [facility] OR [facility] Family History Problem Relation Name Age of Onset ??? Lung Cancer Father ??? Kidney Cancer Father ??? Hypertension Father ??? Other Father Tobacco Use ??? Cervical Cancer Mother ??? Hypertension Mother ??? Other Mother Tobacco Use ??? Breast Cancer Sister ??? Hypertension Sister ??? Hypertension Brother ??? Other Brother Tobacco Use ??? Stroke Maternal Grandmother ??? Other Maternal Grandfather Tobacco Use ??? Other Paternal Grandmother Tobacco Use ??? Lung Cancer Paternal Grandfather ??? Other Paternal Grandfather Tobacco Use ??? Breast Cancer Other Aunt Social History Tobacco Use ??? Smoking status: Former Smoker Packs/day: 0.50 Years: 5.00 Pack years: 2.50 Types: Cigarettes Quit date: 1980 Years since quittin.0 ??? Smokeless tobacco: Never Used Vaping Use ??? Vaping Use: Never used Substance Use Topics ??? Alcohol use: Never ??? Drug use: Never reports that she quit smoking about 42 years ago. Her smoking use included cigarettes. She has a 2.50 pack-year smoking history. She has never used smokeless tobacco. She reports that she does not drink alcohol and does not use drugs. Review of Systems: No new fever or chills, worsening cough or colds, chest pain No new abdominal pain, heat or cold intolerance weakness Objective Data: Vitals With Comments 04/03/2021 0437 04/02/2021 1915 04/02/2021 1600 04/02/2021 1251 BP: 128/76 143/82 178/84 115/76 Pulse: 78 77 66 -- Resp: 16 16 16 -- Temp: 98.9 ??F (37.2 ??C) 97.7 ??F (36.5 ??C) 98 ??F (36.7 ??C) -- Temp src: Oral Oral Oral -- SpO2: 94 % 98 % 98 % -- 04/03 0700 - 04/03 1859 In: 360 [P.O.:360] Out: - General alert, awake, no cardiopulmonary distress, weakness Lungs Decreased breath sounds at bases- Heart regular rate and rhythm Abdomen soft, non-tender, with bowel sounds Extremities pulses noted, no cyanosis CBC result (most recent): Lab Results Component Value Date/Time WBC 3.6 (L) 04/02/2021 04:34 AM HGB 9.8 (L) 04/02/2021 04:34 AM HGBPOC 11.5 (L) 03/13/2021 02:58 PM HCT 30.7 (L) 04/02/2021 04:34 AM PLT 206 04/02/2021 04:34 AM MCV 93.0 04/02/2021 04:34 AM BMP result (most recent): Lab Results Component Value Date/Time NA 141 04/02/2021 04:34 AM K 3.7 04/02/2021 04:34 AM CL 107 04/02/2021 04:34 AM CO2 24 04/02/2021 04:34 AM CA 8.8 04/02/2021 04:34 AM BUN 30 (H) 04/02/2021 04:34 AM CREAT 0.71 04/02/2021 04:34 AM GLUCOSE 103 (H) 04/02/2021 04:34 AM ANIONGAP 10 04/02/2021 04:34 AM CMP result (most recent): Lab Results Component Value Date/Time NA 141 04/02/2021 04:34 AM K 3.7 04/02/2021 04:34 AM CL 107 04/02/2021 04:34 AM CO2 24 04/02/2021 04:34 AM CA 8.8 04/02/2021 04:34 AM BUN 30 (H) 04/02/2021 04:34 AM CREAT 0.71 04/02/2021 04:34 AM GLUCOSE 103 (H) 04/02/2021 04:34 AM TOTALPROTEIN 5.3 (L) 04/02/2021 04:34 AM ALBUMIN 3.0 (L) 04/02/2021 04:34 AM BILITOTAL 0.3 04/02/2021 04:34 AM ALKPHOS 77 04/02/2021 04:34 AM AST 25 04/02/2021 04:34 AM ALT 41 (H) 04/02/2021 04:34 AM ANIONGAP 10 04/02/2021 04:34 AM HEPATIC function panel result (most recent): Lab Results Component Value Date/Time ALT 41 (H) 04/02/2021 04:34 AM AST 25 04/02/2021 04:34 AM ALKPHOS 77 04/02/2021 04:34 AM Hemoglobin A1C result (most recent): No results found for: HGBA1C, [id number] LIPID panel result (most recent): No results found for: CHOLTOT, HDL, LDLCALC, LDLDIRECT, TRIGLYCERIDE UA results do not (most recent): Lab Results Component Value Date/Time PHUA 5.0 04/02/2021 02:46 PM SGUR 1.018 04/02/2021 02:46 PM URINELEUKOC 2+ (A) 04/02/2021 02:46 PM NITRITEUA Positive (A) 04/02/2021 02:46 PM KETONEURINE Negative 04/02/2021 02:46 PM PROTEINUA Negative 04/02/2021 02:46 PM GLUUA Negative 04/02/2021 02:46 PM BLOODUA 2+ (A) 04/02/2021 02:46 PM WBCU 51-100 (A) 04/02/2021 02:46 PM RBCUA 11-25 (A) 04/02/2021 02:46 PM BACTERIAUA 1+ (A) 04/02/2021 02:46 PM UREPITHELIAL 0-5 03/28/2021 01:24 AM Results for orders placed or performed during the hospital encounter of 03/13/21 EKG 12-LEAD Narrative Stationary ECG Study [facility] Test Date: 03/17/2021 7:05 PM Pat Name: VICK SIEGEL Department: 45 Room: On [facility] Of [facility] Gender: F Boilermaker Fitter: harlan : 1955 Requested By: KATHERIN Lindsay Order Number: [id number] Reading MD: Bhupinder Morales Measurements Intervals [place] Rate: 63 P: 53 MD: 165 QRS: 15 QRSD: 96 T: 22 QT: 433 QTc: 444 Interpretive Statements Sinus rhythm Ventricular premature complex Left atrial enlargement Low voltage, precordial leads PRWP Electronically Signed On 03-18-2021 8:08:07 BROOMMAKING SUPERVISOR by Bhupinder Morales Hospitalist Statement: The Internal Medicine team participates in patient care to directly impact the acute rehabilitationprocess. Daily rounds include discussion of I and Os, avoiding hypotension and hypoglycemia. Daily medication review completed. Ongoing efforts to coordinate care, maintain euvolemia, adequate nutrition, electrolyte management, appropriate BP management, overall stability, and management of co-morbidites individually are being dictated by clinical progress. Documentation partially completed using dictation services and EMR. Please excuse any typographicalerrors that may have occurred. FEI Titus MD Internal Medicine Director // MMAKING SUPERVISOR * Be Rangel, DO - 04/03/2021 10:13 AM CST Images from the original note were not included. Physical Medicine and Rehabilitation Progress Note Admission Date: 03/27/2021 Length of stay: 7 days Patient: Vick Siegel Chief complaint: I didn't sleep last night Subjective: Patient seen and examined during morning rounds. Poor sleep last night due to ongoing pain headaches. Bowels moved with bowel routine. She says she is tolerating therapies and feels her legs are waking up. Last Bowel Movement (mm/dd/yyyy): 04/02/21 (04/02/21 2100) ROS: As per HPI and: No fever, chills, chest pain, shortness of breath, or cough. Social History: Lives alone in a 1 level home with 1-2 steps to enter Medications reviewed. Current Facility-Administered Medications: ??? dbemflacpv-ucdmifpgmpduo-scvfiiau (FIORICET) 50-325-40 mg per tablet 1 Tablet, 1 Tablet, Oral, every 6 hours PRN, Claire, Be A, DO ??? melatonin tablet 9 mg, 9 mg, Oral, daily BEDTIME, Mamie Rangeler A, DO ??? midodrine (PROAMATINE) tablet 10 mg, 10 mg, Oral, BID, Yuliet Gomez, INFRASTRUCTURE ARCHITECT, 10 mg at ??? [DISCONTINUED] melatonin tablet 6 mg, 6 mg, Oral, daily BEDTIME, Yuliet Gomez, INFRASTRUCTURE ARCHITECT, 6 mg at106/03/202001 ??? tiZANidine (ZANAFLEX) tablet 4 mg, 4 mg, Oral, every 6 hours PRN, Claire, Be A, DO, 4 mg at 04/03/21 022 ??? acetaminophen (TYLENOL) tablet 650 mg, 650 mg, Oral, every 4 hours PRN, Mamie Rangeler A, DO, 650 mg at 04/03/21 0736 ??? methyl salicylate-menthol (BENGAY) topical cream, , Topical, every 6 hours PRN, Yuliet Gomez, INFRASTRUCTURE ARCHITECT ??? bisacodyl (THE MAGIC BULLET) rectal suppository 10 mg, 10 mg, Rectal, daily, Mamie RangelerA, DO, 10 mg at 04/02/211949 ??? gabapentin (NEURONTIN) capsule 200 mg, 200 mg, Oral, every 8 hours, Yuliet Gomez, INFRASTRUCTURE ARCHITECT, 200 mg at 04/03/21 0433 ??? docusate sodium (COLACE) capsule 100 mg, 100 mg, Oral, BID, Yuliet Gomez, INFRASTRUCTURE ARCHITECT, 100 mg at 04/03/21 0736 ??? pantoprazole (PROTONIX) tablet 40 mg, 40 mg, Oral, daily BEFORE breakfast, Yuliet Gomez, INFRASTRUCTURE ARCHITECT, 40 mg at 04/03/21 0433 ??? sodium chloride tablet 2 Gram, 2 Gram, Oral, every 8 hours, Yuliet Gomez, FEI, 2 Gram at 04/03/21 0433 ??? polyethylene glycol (MIRALAX) packet 17 Gram, 17 Gram, Oral, daily, Yuliet Gomez, FEI, 17 Gram at 04/03/21 0736 ??? fludrocortisone (FLORINEF) tablet 0.2 mg, 0.2 mg, Oral, daily, Yuliet Gomez, FEI, 0.2 mg at106/04/20 0736 ??? naloxone (NARCAN) 0.4 mg/mL injection 0.1 mg, 0.1 mg, IV, see admin instructions, Yuliet Gomez NP ??? ondansetron (ZOFRAN ODT) tablet 4 mg, 4 mg, Oral, every 6 hours PRN, Yuliet Gomez, FEI ??? prochlorperazine maleate (COMPAZINE) tablet 10 mg, 10 mg, Oral, every 6 hours PRN, Yuliet Gomez, FEI ??? bisacodyL (DULCOLAX) delayed release tablet 5 mg, 5 mg, Oral, daily PRN, Yuliet Gomez, FEI ??? calcium as carbonate (TUMS) 500 mg (200 mg elemental) chewable tablet 200 mg, 200 mg, Oral, every 4 hours PRN, Yuliet Gomez, FEI ??? enoxaparin (LOVENOX) injection 40 mg, 40 mg, subCUT, every 24 hours, Yuliet Gomez, FEI, 40 mg at 04/02/212001 Objective: Vitals: BP 128/76 (BP Location: Right arm, Patient Position (BP): Supine) Pulse 78 Temp 98.9 ??F (37.2 ??C) (Oral) Resp 16 Ht 5' 3 (1.6 m) Wt 83.9 kg (185 lb) SpO2 94% BMI 32.77 kg/m?? General:alert, no distress and cooperative Lungs:clear to auscultation bilaterally, normal respiratory effort. CV: Regular rate and rhythm Ext: No significant calf/ankle edema. Neuro: CN II-XII grossly intact, no facial droop Psyche: Mood is appropriate to circumstances. Affect is Euthymic Incision: Data Review: Results for orders placed or performed during the hospital encounter of 03/27/21 (from the past 24 hour(s)) URINALYSIS WITH REFLEX CULTURE Specimen: Urine, clean catch Result Value Ref Range COLOR UA Yellow Pale to Dark Yellow CLARITY UA Clear Clear SPECIFIC GRAVITY UA 1.018 1.003 - 1.035 PH UA 5.0 5.0 - 8.0 LEUKOCYTE ESTERASE UA 2+ (A) Negative NITRITE UA Positive (A) Negative PROTEIN UA Negative Negative GLUCOSE UA Negative Negative KETONES UA Negative Negative UROBILINOGEN UA Normal <2.0 mg/dL BILIRUBIN UA Negative Negative BLOOD UA 2+ (A) Negative WBC UA 51-100 (A) 0 - 2 /hpf RBC UA 11-25 (A) 0 - 2 /hpf BACTERIA UA 1+ (A) Negative /hpf WBC CLUMPS Present (A) Absent ASSESSMENT/PLAN: Patient is a 65 y.o. female who underwent C4-6 ACDF and T2-T3 laminectomy on 03/13/[address] 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 Functional status:Therapy progress noted today: -Discussed in team conference with nursing, therapyand rental boats caretaker. See note for details. Highlights include: Date of Conference: 04/01/21 Barriers to Discharge: Patient apprehension, Caregiver apprehension, Home entry, Bedroom/bathroom accessibility, Limited strength, balance, endurance, Requires caregiver assist, Functioning at wheelchair level and Limited caregiver availability Driver/Guide: Aleisha Munoz DC Date: 04/15 Activities of Daily Living Feeding: ind Grooming: ind Bathing: moda Upper Body Dressing: wes Lower Body Dressing: moda Toileting: total Toilet transfers: maxa Mobility Bed mobility: maxa Transfers: Mod assist from lying to supine Gait: dep standing in // bars Wheelchair mobility: 100 feet sba Progress toward goals and modifications to course of treatment: Improving bed mobility Patient reports: Headache 04/03 ?? Rehab: -Impairments: Gait, function, self-care, mobility, ADLs - Initiate PT/OT rehabilitation nursing, recreation therapy, and social security assessor. -Isolation: None -Precautions: None -Pain: As needed Tylenol. Gabapentin. Tizanidine. Fioricet for headache -Fall prevention: Education and therapies ?? Neurogenic bladder: UA positive. Defer to internal medicine for antibiotic management. ?? Neurogenic bowel: Bowel routine with Magic bullet. Colace, MiraLAX ?? Skin/Wound Care: Monitor surgical incision for proper healing Sleep: Melatonin ?? Prophylaxis/Prevention: DVT: Lovenox GI: Protonix ?? Medical History/Active Issues: To be managed by primary medicine team Orthostatic hypotension: Bella Moore. Adjustments ongoing Hyponatremia: Salt tabs ?? FEN: DIET GENERAL Effective Now -Replete electrolytes as needed - Continue vitamins/supplements -Periodic labs, monitor trends ?? Disposition: -Anticipated location: Home -ELOS: 28 days -Code Status: Full Code ? F/U appts: -Huang Alonso MD after discharge from rehab -Dr. Patton -Rehab Discussed with medicine 04/03/2021 Electronically Signed By: Be Rangel DO ATTESTATION STATEMENTS Portions of this note were transcribed using [employer] computerized voice recognition without a human social insurance analyst. This report may or may not have been adjusted for typographical, grammatical and syntax errors or malapropisms. MMAKING SUPERVISOR * Be Rangel DO - 04/02/2021 12:55 PM CST Images from the original note were not included. Physical Medicine and Rehabilitation Progress Note Admission Date: 03/27/2021 Length of stay: 6 days Patient: Vick Siegel Chief complaint: Yesterday was a fantastic day Subjective: Patient seen and examined during morning rounds. She reports an excellent day with therapies yesterday. She feels her strength is steadily improving. She had a good transfer this morning. Bowels moving with bowel routine. Pain is overall better controlled. Slept with melatonin last night. Last Bowel Movement (mm/dd/yyyy): 04/01/21 (04/01/21 2200) ROS: As per HPI and: No fever, chills, chest pain, shortness of breath, headache or cough. Social History: Lives alone in a 1 level home with 1-2 steps to enter Medications reviewed. Current Facility-Administered Medications: ??? midodrine (PROAMATINE) tablet 10 mg, 10 mg, Oral, BID, Yuliet Gomez NP, 10 mg at 855 ??? melatonin tablet 6 mg, 6 mg, Oral, daily BEDTIME, Yuliet Gomez NP, 6 mg at 04/01/212003 ??? tiZANidine (ZANAFLEX) tablet 4 mg, 4 mg, Oral, every 6 hours PRN, Be Rangel, DO, 4 mg at 04/02/21 0900 ??? acetaminophen (TYLENOL) tablet 650 mg, 650 mg, Oral, every 4 hours PRN, Be Rangel, DO, 650 mg at 04/02/21 0900 ??? methyl salicylate-menthol (BENGAY) topical cream, , Topical, every 6 hours PRN, Yuliet Gomez NP ??? [DISCONTINUED] midodrine (PROAMATINE) tablet 15 mg, 15 mg, Oral, BID, Yuliet Gomez, FEI, 15mg at 04/01/21 1338 ??? bisacodyl (THE MAGIC BULLET) rectal suppository 10 mg, 10 mg, Rectal, daily, Brenton Rangel, DO, 10 mg at 04/01/212003 ??? gabapentin (NEURONTIN) capsule 200 mg, 200 mg, Oral, every 8 hours, Yuliet Gomez NP, 200 mg at 04/02/21423 ??? docusate sodium (COLACE) capsule 100 mg, 100 mg, Oral, BID, Yuliet Gomez NP, 100 mg at 04/02/21 0855 ??? pantoprazole (PROTONIX) tablet 40 mg, 40 mg, Oral, daily BEFORE breakfast, Yuliet Gomez NP, 40 mg at 04/02/21423 ??? sodium chloride tablet 2 Gram, 2 Gram, Oral, every 8 hours, Yuliet Gomez NP, 2 Gram at 04/02/21423 ??? polyethylene glycol (MIRALAX) packet 17 Gram, 17 Gram, Oral, daily, Yuliet Gomez NP, 17 Gram at 03/31/21 0900 ??? fludrocortisone (FLORINEF) tablet 0.2 mg, 0.2 mg, Oral, daily, Yuliet Gomez NP, 0.2 mg at106/03/20 0846 ??? naloxone (NARCAN) 0.4 mg/mL injection 0.1 mg, 0.1 mg, IV, see admin instructions, Yuliet Gomez NP ??? ondansetron (ZOFRAN ODT) tablet 4 mg, 4 mg, Oral, every 6 hours PRN, Yuliet Gomez, FEI ??? prochlorperazine maleate (COMPAZINE) tablet 10 mg, 10 mg, Oral, every 6 hours PRN, Yuliet Gomez NP ??? bisacodyL (DULCOLAX) delayed release tablet 5 mg, 5 mg, Oral, daily PRN, Yuliet Gomez NP ??? calcium as carbonate (TUMS) 500 mg (200 mg elemental) chewable tablet 200 mg, 200 mg, Oral, every 4 hours PRN, Yuliet Gomez, FEI ??? enoxaparin (LOVENOX) injection 40 mg, 40 mg, subCUT, every 24 hours, Yuliet Gomez, FEI, 40 mg at 04/01/212003 Objective: Vitals: BP (!) 143/76 Comment: lying down Pulse 82 Temp 98.3 ??F (36.8 ??C) (Oral) Resp 18 Ht 5' 3 (1.6 m) Wt 83.9 kg (185 lb) SpO2 97% BMI 32.77 kg/m?? General:alert, no distress and cooperative Lungs:clear to auscultation bilaterally, normal respiratory effort. CV: Regular rate and rhythm Ext: No significant calf/ankle edema. Neuro: CN II-XII grossly intact, no facial droop Psyche: Mood is appropriate to circumstances. Affect is Euthymic Incision: Data Review: Results for orders placed or performed during the hospital encounter of 03/27/21 (from the past 24 hour(s)) CBC WITH DIFFERENTIAL Result Value Ref Range WBC 3.6 (L) 4.0 - 9.8 K/uL RBC 3.30 (L) 3.90 - 4.90 M/uL HEMOGLOBIN 9.8 (L) 11.8 - 14.8 g/dL HEMATOCRIT 30.7 (L) 35.5 - 44.0 % MCV 93.0 82.0 - 99.0 fL MCH 29.7 27.2 - 32.6 pg MCHC 31.9 31.5 - 35.5 g/dL RDW 13.6 11.5 - 14.5 % RDW-STDEV 45.5 37.1 - 48.7 fL PLATELETS 206 140 - 350 K/uL MPV 9.9 9.3 - 12.4 fL NEUTROPHILS 64 % LYMPHOCYTES 26 % MONOCYTES 9 % EOSINOPHILS 0 % BASOPHILS 0 % IMMATURE GRANULOCYTES 1 % NEUTROPHIL ABSOLUTE 2.33 1.90 - 7.00 K/uL LYMPHOCYTE ABSOLUTE 0.94 0.70 - 4.50 K/uL MONOCYTE ABSOLUTE 0.33 0.10 - 1.30 K/uL EOSINOPHIL ABSOLUTE 0.00 0.00 - 0.70 K/uL BASOPHILS ABSOLUTE 0.00 0.00 - 0.20 K/uL IMMATURE GRANULOCYTES ABSOLUTE 0.02 0.00 - 0.03 K/uL COMPREHENSIVE METABOLIC PANEL Result Value Ref Range SODIUM 141 136 - 145 mmol/L POTASSIUM 3.7 3.5 - 5.0 mmol/L CHLORIDE 107 98 - 107 mmol/L CO2 24 22 - 29 mmol/L CALCIUM 8.8 8.6 - 10.2 mg/dL BUN 30 (H) 8 - 23 mg/dL CREATININE 0.71 0.51 - 0.95 mg/dL GLUCOSE 103 (H) 74 - 99 mg/dL TOTAL PROTEIN 5.3 (L) 6.7 - 8.6 g/dL ALBUMIN 3.0 (L) 3.5 - 5.2 g/dL BILIRUBIN TOTAL 0.3 0.2 - 1.1 mg/dL ALKALINE PHOSPHATASE 77 35 - 104 U/L AST 25 <33 U/L ALT 41 (H) <34 U/L GFR >60 mL/min/1.73 sq meter GFR, >60 mL/min/1.73 sq meter ANION GAP 10 8 - 16 mmol/L C-REACTIVE PROTEIN Result Value Ref Range CRP <3.0 <5.0 mg/L MAGNESIUM LEVEL Result Value Ref Range MAGNESIUM 2.2 1.6 - 2.4 mg/dL PHOSPHORUS Result Value Ref Range PHOSPHORUS 3.9 2.5 - 4.5 mg/dL ASSESSMENT/PLAN: Patient is a 65 y.o. female who underwent C4-6 ACDF and T2-T3 laminectomy on 03/13/[address] 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 Functional status:Therapy progress noted today: -Discussed in team conference with nursing, therapyand rental boats caretaker. See note for details. Highlights include: Date of Conference: 04/01/21 Barriers to Discharge: Patient apprehension, Caregiver apprehension, Home entry, Bedroom/bathroom accessibility, Limited strength, balance, endurance, Requires caregiver assist, Functioning at wheelchair level and Limited caregiver availability Driver/Guide: Aleisha Tammy SUERO Date: 04/15 Activities of Daily Living Feeding: ind Grooming: ind Bathing: moda Upper Body Dressing: wes Lower Body Dressing: moda Toileting: total Toilet transfers: maxa Mobility Bed mobility: maxa Transfers: maxa Gait: dep standing in // bars Wheelchair mobility: 100 feet sba Progress toward goals and modifications to course of treatment: setting goal of supervision for OT/PT Patient reports: Improved pain control ?? Rehab: -Impairments: Gait, function, self-care, mobility, ADLs - Initiate PT/OT rehabilitation nursing, recreation therapy, and social security assessor. -Isolation: None -Precautions: None -Pain: As needed Tylenol. Gabapentin. Tizanidine -Fall prevention: Education and therapies ?? Neurogenic bladder: Intermittent catheterization ?? Neurogenic bowel: Bowel routine with Magic bullet. Colace, MiraLAX ?? Skin/Wound Care: Monitor surgical incision for proper healing Sleep: Melatonin ?? Prophylaxis/Prevention: DVT: Lovenox GI: Protonix ?? Medical History/Active Issues: To be managed by primary medicine team Orthostatic hypotension: Midodrine, Florinef. Adjustments ongoing Hyponatremia: Salt tabs ?? FEN: DIET GENERAL Effective Now -Replete electrolytes as needed - Continue vitamins/supplements -Periodic labs, monitor trends ?? Disposition: -Anticipated location: Home -ELOS: 28 days -Code Status: Full Code ? F/U appts: -Huang Alonso MD after discharge from rehab -Dr. Patton -Rehab Discussed with medicine 04/02/2021 Electronically Signed By: Be Rangel DO ATTESTATION STATEMENTS Portions of this note were transcribed using [employer] speaking computerized voice recognition without a human social insurance analyst. This report may or may not have been adjusted for typographical, grammatical and syntax errors or malapropisms. MMAKING SUPERVISOR * Yuliet Gomez NP - 04/02/2021 10:57 AM CST Images from the original note were not included. Internal Medicine/Rehabilitation Service Patient: Vick Siegel Date of : 1955 Admission Date: (03/27/2021) Vitals With Comments 04/02/2021 0855 04/02/2021 0457 04/01/2021201104/01/2021 1600 BP: 143/76 146/87 146/88 161/87 lying down Pulse: -- 82 85 87 Resp: -- 18 18 17 Temp: -- 98.3 ??F (36.8 ??C) 98.4 ??F (36.9 ??C) 98.9 ??F (37.2 ??C) Temp src: -- Oral Oral Oral SpO2: -- 97 % 97 % 96 % DIET GENERAL Effective Now Full Code Timeline (including subjective): 04/02/21- Patient seen resting in her room. She is upset as she only has a few weeks of therapy left. She is very motivated to succeed and her goal is to walk out of here .??Though she understands this may not be realistic. Continue to encourage and support her. She slept much better with the melatonin last night. Ongoing pain management. Patient felt that her urine was odorous. Will obtain a UA. 04/01/21- Patient seen resting in her room. She states she is doing okay. She states the ice to hershoulder blades helped tremendously. Continue ice as needed for comfort. Will add Melatonin to sleep regimen tonight. Continue to encourage p.o. intake. BP was elevated and her Midodrine was held this morning. However, patient states she was still slightly dizzy with therapy. Her pulse was also elevated. Increased blood pressure may be related to pain as well. Will adjust Midodrine. 03/31/21- Patient seen resting in her room. She states she is doing well. She is slightly discouraged because she wants to heal faster than she is. Continue to encourage and provide emotional support. Incision is healing nicely. Lidocaine patches are not providing relief for her neck muscles. Willdiscontinue and offer BenGay cream. Ongoing orthostatic hypotension. Intake and output is decent. Will review midodrine. 03/29/21- A.m. labs completed. Patient able to take a shower. Clemons catheter placed in an effort torest bladder. Good urine output. Pain in anterior neck and middle back scribed as tightness. No adverse neurologic changes. Continue inpatient rehab process cord injury. 03/28/21- Initiate rehab. Full medication reconciliation has occurred. Meds, labs, and vitals reviewed. VSS. 03/27/2021 - Admission to Acute Rehabilitation [facility] - (Admission Data below) Assessment and Plan: Present on Admission: Debility-Rehab ??? Brown-Sequard syndrome- Flexeril, Gabapentin, Zanaflex ??? Neck pain ??? Cervical spondylosis with radiculopathy ??? Cord compression ??? HTN (hypertension) ??? GERD (gastroesophageal reflux disease) ??? Arthritis ??? Hyponatremia ??? Urinary retention ??? Neurological deficit present DVT PRX: Enoxaparin, SCDS Electrolyte derangement-Bind and Replenish Anemia-Follow H/H. Transfuse when clinically indicated Pain Control- titration throughout acute inpatient rehab process Nausea-Zofran prn Constipation-Bowel Regimen, follow output daily Polypharmacy-Follow. Medications fully reconciled Vitamin deficiency-Supplement Nursing Instructions: Incentive spirometry, I/O's, Vitals every 8 hours, Nutrition and ADLs Record Review: moderate Old medical records, labs, preadmission screening, previous radiology studies. Nutritional support and Blood sugar management - encourage adequate diet, caloric intake, fluid balance Avoid hypoglycemia Medication Profile: Allergies Allergen Reactions ??? Codeine Nausea and Vomiting ??? Oxycodone Nausea and Vomiting Scheduled Medication Profile: Facility-Administered Medications as of 04/02/2021 Medication Dose Frequency Provider Last Rate Last Admin ??? midodrine (PROAMATINE) tablet 10 mg 10 mg BID Yuliet Goemz, INFRASTRUCTURE ARCHITECT 10 mg at 04/02/21 0855 ??? melatonin tablet 6 mg 6 mg daily BEDTIME Yuliet Gomez NP 6 mg at 04/01/212003 ??? tiZANidine (ZANAFLEX) tablet 4 mg 4 mg every 6 hours PRN Be Rangel, DO 4 mg at 04/02/21 0900 ??? acetaminophen (TYLENOL) tablet 650 mg 650 mg every 4 hours PRN Be Rangel, DO 650 mg at 04/02/21 0900 ??? methyl salicylate-menthol (BENGAY) topical cream every 6 hours PRN Yuliet Gomez, FEI ??? bisacodyl (THE MAGIC BULLET) rectal suppository 10 mg 10 mg daily Be Rangel, DO 10 mg at 04/01/212003 ??? gabapentin (NEURONTIN) capsule 200 mg 200 mg every 8 hours Yuliet Gomez NP 200 mg at 04/02/21 0424 ??? docusate sodium (COLACE) capsule 100 mg 100 mg BID Yuliet Gomez NP 100 mg at 04/02/21 0855 ??? pantoprazole (PROTONIX) tablet 40 mg 40 mg daily BEFORE breakfast Yuliet Gomez NP 40 mg at 04/02/21 0424 ??? sodium chloride tablet 2 Gram 2 Gram every 8 hours Yuliet Gomez NP 2 Gram at 04/02/21 0424 ??? polyethylene glycol (MIRALAX) packet 17 Gram 17 Gram daily Yuliet Gomez NP 17 Gram at 03/31/21 0900 ??? fludrocortisone (FLORINEF) tablet 0.2 mg 0.2 mg daily Yuliet Gomez NP 0.2 mg at 04/02/21 0846 ??? naloxone (NARCAN) 0.4 mg/mL injection 0.1 mg 0.1 mg see admin instructions Yuliet Gomez, FEI ??? ondansetron (ZOFRAN ODT) tablet 4 mg 4 mg every 6 hours PRN Yuliet Gomez, FEI ??? prochlorperazine maleate (COMPAZINE) tablet 10 mg 10 mg every 6 hours PRN Yuliet Gomez, FEI ??? bisacodyL (DULCOLAX) delayed release tablet 5 mg 5 mg daily PRN Yuliet Gomez, FEI ??? calcium as carbonate (TUMS) 500 mg (200 mg elemental) chewable tablet 200 mg 200 mg every 4 hours PRN Yuliet Gomez NP ??? enoxaparin (LOVENOX) injection 40 mg 40 mg every 24 hours Yuliet Gomez, FEI 40 mg at 04/01/212003 Admission Data : CC: Debility/ Brown Sequard Syndrome/ s/p ACDF at C4/5 and C5/6 and Posterior decompression/laminectomy at T2-3 HPI: Vick Siegel is a 65 y.o. female who recently has been admitted to [facility] for comprehensive rehabilitation - multiple complex medical issues will impact medical management throughout the acute inpatient rehabilitation process. Pt has a significant medical history including but not limited to arthritis, GERD, and HTN. Pt presented to [facility] on 03/13 with c/o posterior headaches, neck pain, and R arm pain. She reported the pain as aching sharp pressure which has been ongoing for 3 months. She noted it is primarily located at the back of her neck, radiating into her posterior neck and off the R side into her shoulder and deltoid. Pt also reported numbness in 1st-3rd fingers on theright when sleeping, as well as intermittent sensation of both feet. Cervical MRI showed disc osteophyte at C4-5 on the right side causing severe neural foraminal stenosis as well as significant discbulge osteophyte on the left at C5-6, as well as mild cord compression at C4-5. There was also large disc herniation at T8 2-3 causing cord compression and T2 signal increase. Pt brought to OR and und erwent ACDF at C4/5 and C5/6 as well as posterior decompression/laminectomy at T2-[address] Patton. Pt tolerated procedure well. MRI and CT showed large calcified disc herniation at T2-3 unchanged, overall edema in cord at T2-3 slightly smaller than preop but seems brighter, correlating with BrownSequard syndrome. Myelogram on 03/17 did not show any significant residual or persistent cord compression. Pt experienced good return of function on right and some return of function on left. On Lovenox for dvt prx, can be fully AC. Pt began working with and tolerating therapy and has been deemed medically safe and appropriate for comprehensive rehab. PMR MD to have formal referral placed. Past Medical History: Diagnosis Date ??? Arthritis ??? GERD (gastroesophageal reflux disease) Difficulty taking NSAIDs. ??? HTN (hypertension) ??? Post-operative nausea and vomiting Past Surgical History: Procedure Laterality Date ??? ENDOSCOPY, UPPER GI ??? HX ANTERIOR CERVICAL DISCECTOMY W/ FUSION N/A 03/13/2021 CERVICAL DISCECTOMY FUSION 2 LEVEL ANTERIOR performed by Katherin Patton MD at [facility] OR [facility] ??? HX SECTION x 2 ??? HX COLONOSCOPY ??? HX HYSTERECTOMY ??? HX MENISCECTOMY Right N/A ??? MD FORREST W/O FACETEC FORAMOT/[facility] 04/13 VRT SEG, THORACIC N/A 03/13/2021 THORACIC LAMINECTOMY performed by Katherin Patton MD at [facility] OR [facility] Family History Problem Relation Name Age of Onset ??? Lung Cancer Father ??? Kidney Cancer Father ??? Hypertension Father ??? Other Father Tobacco Use ??? Cervical Cancer Mother ??? Hypertension Mother ??? Other Mother Tobacco Use ??? Breast Cancer Sister ??? Hypertension Sister ??? Hypertension Brother ??? Other Brother Tobacco Use ??? Stroke Maternal Grandmother ??? Other Maternal Grandfather Tobacco Use ??? Other Paternal Grandmother Tobacco Use ??? Lung Cancer Paternal Grandfather ??? Other Paternal Grandfather Tobacco Use ??? Breast Cancer Other Aunt Social History Tobacco Use ??? Smoking status: Former Smoker Packs/day: 0.50 Years: 5.00 Pack years: 2.50 Types: Cigarettes Quit date: 1980 Years since quittin.0 ??? Smokeless tobacco: Never Used Vaping Use ??? Vaping Use: Never used Substance Use Topics ??? Alcohol use: Never ??? Drug use: Never reports that she quit smoking about 42 years ago. Her smoking use included cigarettes. She has a 2.50 pack-year smoking history. She has never used smokeless tobacco. She reports that she does not drink alcohol and does not use drugs. Review of Systems: No new fever or chills, worsening cough or colds, chest pain No new abdominal pain, heat or cold intolerance weakness Objective Data: Vitals With Comments 04/02/2021 0855 04/02/2021 0457 04/01/2021201104/01/2021 1600 BP: 143/76 146/87 146/88 161/87 lying down Pulse: -- 82 85 87 Resp: -- 18 Temp: -- 98.3 ??F (36.8 ??C) 98.4 ??F (36.9 ??C) 98.9 ??F (37.2 ??C) Temp src: -- Oral Oral Oral SpO2: -- 97 % 97 % 96 % 04/02 700 - 04/02 1859 In: 360 [P.O.:360] Out: 800 [Urine:800] General alert, awake, no cardiopulmonary distress, weakness Lungs Decreased breath sounds at bases- Heart regular rate and rhythm Abdomen soft, non-tender, with bowel sounds Extremities pulses noted, no cyanosis CBC result (most recent): Lab Results Component Value Date/Time WBC 4.4 03/28/2021 05:04 AM HGB 9.3 (L) 03/28/2021 05:04 AM HGBPOC 11.5 (L) 03/13/2021 02:58 PM HCT 29.5 (L) 03/28/2021 05:04 AM PLT 215 03/28/2021 05:04 AM MCV 92.8 03/28/2021 05:04 AM BMP result (most recent): Lab Results Component Value Date/Time NA 140 03/28/2021 05:04 AM K 4.1 03/28/2021 05:04 AM CL 108 (H) 03/28/2021 05:04 AM CO2 24 03/28/2021 05:04 AM CA 8.3 (L) 03/28/2021 05:04 AM BUN 25 (H) 03/28/2021 05:04 AM CREAT 0.68 03/28/2021 05:04 AM GLUCOSE 299 (H) 03/28/2021 05:04 AM ANIONGAP 8 03/28/2021 05:04 AM CMP result (most recent): Lab Results Component Value Date/Time NA 140 03/28/2021 05:04 AM K 4.1 03/28/2021 05:04 AM CL 108 (H) 03/28/2021 05:04 AM CO2 24 03/28/2021 05:04 AM CA 8.3 (L) 03/28/2021 05:04 AM BUN 25 (H) 03/28/2021 05:04 AM CREAT 0.68 03/28/2021 05:04 AM GLUCOSE 299 (H) 03/28/2021 05:04 AM TOTALPROTEIN 4.8 (L) 03/28/2021 05:04 AM ALBUMIN 2.8 (L) 03/28/2021 05:04 AM BILITOTAL <0.2 (L) 03/28/2021 05:04 AM ALKPHOS 63 03/28/2021 05:04 AM AST 15 03/28/2021 05:04 AM ALT 15 03/28/2021 05:04 AM ANIONGAP 8 03/28/2021 05:04 AM HEPATIC function panel result (most recent): Lab Results Component Value Date/Time ALT 15 03/28/2021 05:04 AM AST 15 03/28/2021 05:04 AM ALKPHOS 63 03/28/2021 05:04 AM Hemoglobin A1C result (most recent): No results found for: HGBA1C, [id number] LIPID panel result (most recent): No results found for: CHOLTOT, HDL, LDLCALC, LDLDIRECT, TRIGLYCERIDE UA results do not (most recent): Lab Results Component Value Date/Time PHUA 5.0 03/28/2021 01:24 AM SGUR 1.024 03/28/2021 01:24 AM URINELEUKOC Trace (A) 03/28/2021 01:24 AM NITRITEUA Negative 03/28/2021 01:24 AM KETONEURINE Negative 03/28/2021 01:24 AM PROTEINUA Negative 03/28/2021 01:24 AM GLUUA Negative 03/28/2021 01:24 AM BLOODUA 2+ (A) 03/28/2021 01:24 AM WBCU 6-10 (A) 03/28/2021 01:24 AM RBCUA 51-100 (A) 03/28/2021 01:24 AM BACTERIAUA Negative 03/28/2021 01:24 AM UREPITHELIAL 0-5 03/28/2021 01:24 AM Results for orders placed or performed during the hospital encounter of 03/13/21 EKG 12-LEAD Narrative Stationary ECG Study [facility] Test Date: 03/17/2021 7:05 PM Pat Name: VICK SIEGEL Department: 45 Room: 474F 6 Gender: F Boilermaker Fitter: harlan : 1955 Requested By: KATHERIN PATTON Neftali Order Number: [id number] Reading MD: Bhupinder Morales Measurements Intervals [place] Rate: 63 P: 53 MD: 165 QRS: 15 QRSD: 96 T: 22 QT: 433 QTc: 444 Interpretive Statements Sinus rhythm Ventricular premature complex Left atrial enlargement Low voltage, precordial leads PRWP Electronically Signed On 03-18-2021 8:08:07 BROOMMAKING SUPERVISOR by Bhupinder Morales Hospitalist Statement: The Internal Medicine team participates in patient care to directly impact the acute rehabilitationprocess. Daily rounds include discussion of I and Os, avoiding hypotension and hypoglycemia. Daily medication review completed. Ongoing efforts to coordinate care, maintain euvolemia, adequate nutrition, electrolyte management, appropriate BP management, overall stability, and management of co-morbidites individually are being dictated by clinical progress. Documentation partially completed using dictation services and EMR. Please excuse any typographicalerrors that may have occurred. FEI Titus MD Internal Medicine Director // MMAKING SUPERVISOR * Be Rangel DO - 04/01/2021 12:31 PM CST Images from the original note were not included. Physical Medicine and Rehabilitation Progress Note Admission Date: 03/27/2021 Length of stay: 5 days Patient: Vick Siegel Chief complaint: Much better than yesterday Subjective: Patient seen and examined during morning rounds. She reports feeling better today. She slept better last night. Headache is little bit better controlled. Mood is fair. Bowels moving. She says she is tolerating therapies Last Bowel Movement (mm/dd/yyyy): 03/31/21 (03/31/21 2100) ROS: As per HPI and: No fever, chills, chest pain, shortness of breath, headache or cough. Social History: Lives alone in a 1 level home with 1-2 steps to enter Medications reviewed. Current Facility-Administered Medications: ??? tiZANidine (ZANAFLEX) tablet 4 mg, 4 mg, Oral, every 6 hours PRN, Be Rangel DO, 4 mg at 04/01/21 1005 ??? acetaminophen (TYLENOL) tablet 650 mg, 650 mg, Oral, every 4 hours PRN, Be Rangel DO, 650 mg at 04/01/21 1005 ??? methyl salicylate-menthol (BENGAY) topical cream, , Topical, every 6 hours PRN, Yuliet Gomez, FEI ??? midodrine (PROAMATINE) tablet 15 mg, 15 mg, Oral, BID, Yuliet Gomez, FEI ??? [DISCONTINUED] Lidocaine 4 % topical patch 1 Patch, 1 Patch, Topical, daily, Brenton Rangel DO, 1 Patch at 03/31/21 1030 ??? bisacodyl (THE MAGIC BULLET) rectal suppository 10 mg, 10 mg, Rectal, daily, Brenton Rangel DO, 10 mg at 03/30/212037 ??? gabapentin (NEURONTIN) capsule 200 mg, 200 mg, Oral, every 8 hours, Yuliet Gomez NP, 200 mg at 04/01/21 0437 ??? docusate sodium (COLACE) capsule 100 mg, 100 mg, Oral, BID, Yuliet Gomez, FEI, 100 mg at 03/31/21 2020 ??? pantoprazole (PROTONIX) tablet 40 mg, 40 mg, Oral, daily BEFORE breakfast, Yuliet Gomez, FEI, 40 mg at 04/01/21 0437 ??? sodium chloride tablet 2 Gram, 2 Gram, Oral, every 8 hours, Yuliet Gomez NP, 2 Gram at 04/01/21 0437 ??? polyethylene glycol (MIRALAX) packet 17 Gram, 17 Gram, Oral, daily, Yuliet Gomez, FEI, 17 Gram at 03/31/21 0900 ??? fludrocortisone (FLORINEF) tablet 0.2 mg, 0.2 mg, Oral, daily, Yuliet Gomez NP, 0.2 mg at106/02/20 0959 ??? naloxone (NARCAN) 0.4 mg/mL injection 0.1 mg, 0.1 mg, IV, see admin instructions, Yuliet Gomez NP ??? ondansetron (ZOFRAN ODT) tablet 4 mg, 4 mg, Oral, every 6 hours PRN, Yuliet Gomez, INFRASTRUCTURE ARCHITECT ??? prochlorperazine maleate (COMPAZINE) tablet 10 mg, 10 mg, Oral, every 6 hours PRN, Yuliet Gomez, INFRASTRUCTURE ARCHITECT ??? bisacodyL (DULCOLAX) delayed release tablet 5 mg, 5 mg, Oral, daily PRN, Yuliet Gomez, INFRASTRUCTURE ARCHITECT ??? calcium as carbonate (TUMS) 500 mg (200 mg elemental) chewable tablet 200 mg, 200 mg, Oral, every 4 hours PRN, Yuliet Gomez, INFRASTRUCTURE ARCHITECT ??? enoxaparin (LOVENOX) injection 40 mg, 40 mg, subCUT, every 24 hours, Yuliet Gomez, FEI, 40 mg at 03/31/212019 ??? [DISCONTINUED] midodrine (PROAMATINE) tablet 15 mg, 15 mg, Oral, every 8 hours, Yuliet Gomez, FEI, 15 mg at 03/31/21 1300 Objective: Vitals: BP (!) 160/90 Pulse (!) 119 Temp 98.8 ??F (37.1 ??C) (Oral) Resp 17 Ht 5' 3 (1.6 m) Wt 83.9 kg (185 lb) SpO2 95% BMI 32.77 kg/m?? General:alert, no distress and cooperative Lungs:clear to auscultation bilaterally, normal respiratory effort. CV: Regular rate and rhythm Ext: No significant calf/ankle edema. Neuro: CN II-XII grossly intact, no facial droop Psyche: Mood is appropriate to circumstances. Affect is Euthymic Incision: Data Review: No results found for any visits on 03/27/21 (from the past 24 hour(s)). ASSESSMENT/PLAN: Patient is a 65 y.o. female who underwent C4-6 ACDF and T2-T3 laminectomy on 03/13/[address] 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 Functional status:Therapy progress noted today: -Discussed in team conference with nursing, therapyand rental boats caretaker. See note for details. Highlights include: Date of Conference: 12/21/21 Barriers to Discharge: Patient apprehension, Caregiver apprehension, Home entry, Bedroom/bathroom accessibility, Limited strength, balance, endurance, Requires caregiver assist, Functioning at wheelchair level and Limited caregiver availability Driver/Guide: Aleisha Munoz PIO Date: 04/15 Activities of Daily Living Feeding: ind Grooming: ind Bathing: moda Upper Body Dressing: wes Lower Body Dressing: moda Toileting: total Toilet transfers: maxa Mobility Bed mobility: maxa Transfers: maxa Gait: dep standing in // bars Wheelchair mobility: 100 feet sba Progress toward goals and modifications to course of treatment: setting goal of supervision for OT/PT Patient reports: Improved pain control ?? Rehab: -Impairments: Gait, function, self-care, mobility, ADLs - Initiate PT/OT rehabilitation nursing, recreation therapy, and social security assessor. -Isolation: None -Precautions: None -Pain: As needed Tylenol. Gabapentin. Tizanidine -Fall prevention: Education and therapies ?? Neurogenic bladder: Intermittent catheterization ?? Neurogenic bowel: Bowel routine with Magic bullet. Colace, MiraLAX ?? Skin/Wound Care: Monitor surgical incision for proper healing ?? Prophylaxis/Prevention: DVT: Lovenox GI: Protonix ?? Medical History/Active Issues: To be managed by primary medicine team Orthostatic hypotension: Midodrine, Florinef Hyponatremia: Salt tabs ?? FEN: DIET GENERAL Effective Now -Replete electrolytes as needed - Continue vitamins/supplements -Periodic labs, monitor trends ?? Disposition: -Anticipated location: Home -ELOS: 28 days -Code Status: Full Code ? F/U appts: -Huang Alonso MD after discharge from rehab -Dr. Patton -Rehab Discussed with medicine 04/01/2021 Electronically Signed By: Be Rangel DO ATTESTATION STATEMENTS Portions of this note were transcribed using [email or web address] naturally speaking computerized voice recognition without a human social insurance analyst. This report may or may not have been adjusted for typographical, grammatical and syntax errors or malapropisms. MMAKING SUPERVISOR * Reggie Johnson MD - 04/01/2021 12:10 PM CST Images from the original note were not included. Internal Medicine/Rehabilitation Service Patient: Vick Siegel Date of : 1955 Admission Date: (03/27/2021) Vitals With Comments 04/01/2021 0959 04/01/2021 0421 03/31/2021 2100 03/31/2021 194 BP: 160/90 146/84 -- 160/94 Pulse: 119 87 -- 98 Resp: -- 17 -- 16 Temp: -- 98.8 ??F (37.1 ??C) -- 97.6 ??F (36.4 ??C) Temp src: -- Oral -- Oral SpO2: -- 95 % -- 91 % Weight: -- -- 83.9 kg (185 lb) -- Height: -- -- 5' 3 (1.6 m) -- DIET GENERAL Effective Now Full Code Timeline (including subjective): 04/01/21- Patient seen resting in her room. She states she is doing okay. She states the ice to hershoulder blades helped tremendously. Continue ice as needed for comfort. Will add Melatonin to sleep regimen tonight. Continue to encourage p.o. intake. BP was elevated and her Midodrine was held this morning. However, patient states she was still slightly dizzy with therapy. Her pulse was also elevated. Increased blood pressure may be related to pain as well. Will adjust Midodrine. 03/31/21- Patient seen resting in her room. She states she is doing well. She is slightly discouraged because she wants to heal faster than she is. Continue to encourage and provide emotional support. Incision is healing nicely. Lidocaine patches are not providing relief for her neck muscles. Will discontinue and offer BenGay cream. Ongoing orthostatic hypotension. Intake and output is decent. Will review midodrine. 03/29/21- A.m. labs completed. Patient able to take a shower. Clemons catheter placed in an effort torest bladder. Good urine output. Pain in anterior neck and middle back scribed as tightness. No adverse neurologic changes. Continue inpatient rehab process cord injury. 03/28/21- Initiate rehab. Full medication reconciliation has occurred. Meds, labs, and vitals reviewed. VSS. 03/27/2021 - Admission to Acute Rehabilitation [facility] - (Admission Data below) Assessment and Plan: Present on Admission: Debility-Rehab Brown-Sequard syndrome- Flexeril, Gabapentin, Zanaflex Neck pain Cervical spondylosis with radiculopathy Cord compression HTN (hypertension) GERD (gastroesophageal reflux disease) Arthritis Hyponatremia Urinary retention Neurological deficit present DVT PRX: Enoxaparin, SCDS Electrolyte derangement-Bind and Replenish Anemia-Follow H/H. Transfuse when clinically indicated Pain Control- titration throughout acute inpatient rehab process Nausea-Zofran prn Constipation-Bowel Regimen, follow output daily Polypharmacy-Follow. Medications fully reconciled Vitamin deficiency-Supplement Nursing Instructions: Incentive spirometry, I/O's, Vitals every 8 hours, Nutrition and ADLs Record Review: moderate Old medical records, labs, preadmission screening, previous radiology studies. Nutritional support and Blood sugar management - encourage adequate diet, caloric intake, fluid balance Avoid hypoglycemia Medication Profile: Allergies Allergen Reactions Codeine Nausea and Vomiting Oxycodone Nausea and Vomiting Scheduled Medication Profile: Facility-Administered Medications as of 04/01/2021 Medication Dose Frequency Provider Last Rate Last Admin tiZANidine (ZANAFLEX) tablet 4 mg 4 mg every 6 hours PRN Be Rangel, DO 4 mg at 04/01/21 1005 acetaminophen (TYLENOL) tablet 650 mg 650 mg every 4 hours PRN Mamie Rangeler Virgil, DO 650 mg at 04/01/21 1005 methyl salicylate-menthol (BENGAY) topical cream every 6 hours PRN Yuliet Gomez NP midodrine (PROAMATINE) tablet 15 mg 15 mg BID Yuliet Gomez NP bisacodyl (THE MAGIC BULLET) rectal suppository 10 mg 10 mg daily Be Rangel A, DO 10 mg at105/31/202037 gabapentin (NEURONTIN) capsule 200 mg 200 mg every 8 hours Yuliet Gomez NP 200 mg at docusate sodium (COLACE) capsule 100 mg 100 mg BID Yuliet Gomez NP 100 mg at 03/31/212019 pantoprazole (PROTONIX) tablet 40 mg 40 mg daily BEFORE breakfast Yuliet Gomez NP 40 mg at 04/01/21 0437 sodium chloride tablet 2 Gram 2 Gram every 8 hours Yuliet Gomez NP 2 Gram at 04/01/21 0437 polyethylene glycol (MIRALAX) packet 17 Gram 17 Gram daily Yuliet Gomez NP 17 Gram at 03/31/21 0900 fludrocortisone (FLORINEF) tablet 0.2 mg 0.2 mg daily Yuliet Gomez NP 0.2 mg at 04/01/21 0959 naloxone (NARCAN) 0.4 mg/mL injection 0.1 mg 0.1 mg see admin instructions Yuliet Gomez NP ondansetron (ZOFRAN ODT) tablet 4 mg 4 mg every 6 hours PRN Yuliet Gomez NP prochlorperazine maleate (COMPAZINE) tablet 10 mg 10 mg every 6 hours PRN Yuliet Gomez NP bisacodyL (DULCOLAX) delayed release tablet 5 mg 5 mg daily PRN Yuliet Gomez NP calcium as carbonate (TUMS) 500 mg (200 mg elemental) chewable tablet 200 mg 200 mg every 4 hours PRN Yuliet Gomez NP enoxaparin (LOVENOX) injection 40 mg 40 mg every 24 hours Yuliet Gomez NP 40 mg at 03/31/212019 Admission Data : CC: Debility/ Brown Sequard Syndrome/ s/p ACDF at C4/5 and C5/6 and Posterior decompression/laminectomy at T2-3 HPI: Vick Siegel is a 65 y.o. female who recently has been admitted to [facility] for comprehensive rehabilitation - multiple complex medical issues will impact medical management throughout the acute inpatient rehabilitation process. Pt has a significant medical history including but not limited to arthritis, GERD, and HTN. Pt presented to [facility] on 03/13 with c/o posterior headaches, neck pain, and R arm pain. She reported the pain as aching sharp pressure which has been ongoing for 3 months. She noted it is primarily located at the back of her neck, radiating into her posterior neck and off the R side into her shoulder and deltoid. Pt also reported numbness in 1st-3rd fingers on theright when sleeping, as well as intermittent sensation of both feet. Cervical MRI showed disc osteophyte at C4-5 on the right side causing severe neural foraminal stenosis as well as significant discbulge osteophyte on the left at C5-6, as well as mild cord compression at C4-5. There was also large disc herniation at T8 2-3 causing cord compression and T2 signal increase. Pt brought to OR and und erwent ACDF at C4/5 and C5/6 as well as posterior decompression/laminectomy at T2-[address] Patton. Pt tolerated procedure well. MRI and CT showed large calcified disc herniation at T2-3 unchanged, overall edema in cord at T2-3 slightly smaller than preop but seems brighter, correlating with BrownSequard syndrome. Myelogram on 03/17 did not show any significant residual or persistent cord compression. Pt experienced good return of function on right and some return of function on left. On Lovenox for dvt prx, can be fully AC. Pt began working with and tolerating therapy and has been deemed medically safe and appropriate for comprehensive rehab. PMR MD to have formal referral placed. Past Medical History: Diagnosis Date Arthritis GERD (gastroesophageal reflux disease) Difficulty taking NSAIDs. HTN (hypertension) Post-operative nausea and vomiting Past Surgical History: Procedure Laterality Date ENDOSCOPY, UPPER GI HX ANTERIOR CERVICAL DISCECTOMY W/ FUSION N/A 03/13/2021 CERVICAL DISCECTOMY FUSION 2 LEVEL ANTERIOR performed by Katherin Patton MD at [facility] OR [facility] HX SECTION x 2 HX COLONOSCOPY HX HYSTERECTOMY HX MENISCECTOMY Right N/A MD FORREST W/O FACETEC FORAMOT/[facility] 04/13 VRT SEG, THORACIC N/A 03/13/2021 THORACIC LAMINECTOMY performed by Katherin Patton MD at [facility] Family History Problem Relation Name Age of Onset Lung Cancer Father Kidney Cancer Father Hypertension Father Other Father Tobacco Use Cervical Cancer Mother Hypertension Mother Other Mother Tobacco Use Breast Cancer Sister Hypertension Sister Hypertension Brother Other Brother Tobacco Use Stroke Maternal Grandmother Other Maternal Grandfather Tobacco Use Other Paternal Grandmother Tobacco Use Lung Cancer Paternal Grandfather Other Paternal Grandfather Tobacco Use Breast Cancer Other Aunt Social History Tobacco Use Smoking status: Former Smoker Packs/day: 0.50 Years: 5.00 Pack years: 2.50 Types: Cigarettes Quit date: 1979 Years since quittin.0 Smokeless tobacco: Never Used Vaping Use Vaping Use: Never used Substance Use Topics Alcohol use: Never Drug use: Never reports that she quit smoking about 42 years ago. Her smoking use included cigarettes. She has a 2.50 pack-year smoking history. She has never used smokeless tobacco. She reports that she does not drink alcohol and does not use drugs. Review of Systems: No new fever or chills, worsening cough or colds, chest pain No new abdominal pain, heat or cold intolerance weakness Objective Data: Vitals With Comments 04/01/2021 0959 04/01/2021 0421 03/31/2021 2100 03/31/2021 1947 BP: 160/90 146/84 -- 160/94 Pulse: 119 87 -- 98 Resp: -- 17 -- 16 Temp: -- 98.8 ??F (37.1 ??C) -- 97.6 ??F (36.4 ??C) Temp src: -- Oral -- Oral SpO2: -- 95 % -- 91 % Weight: -- -- 83.9 kg (185 lb) -- Height: -- -- 5' 3 (1.6 m) -- 04/01 0700 - 04/01 1859 In: 360 [P.O.:360] Out: - General alert, awake, no cardiopulmonary distress, weakness Lungs Decreased breath sounds at bases- Heart regular rate and rhythm Abdomen soft, non-tender, with bowel sounds Extremities pulses noted, no cyanosis CBC result (most recent): Lab Results Component Value Date/Time WBC 4.4 03/28/2021 05:04 AM HGB 9.3 (L) 03/28/2021 05:04 AM HGBPOC 11.5 (L) 03/13/2021 02:58 PM HCT 29.5 (L) 03/28/2021 05:04 AM PLT 215 03/28/2021 05:04 AM MCV 92.8 03/28/2021 05:04 AM BMP result (most recent): Lab Results Component Value Date/Time NA 140 03/28/2021 05:04 AM K 4.1 03/28/2021 05:04 AM CL 108 (H) 03/28/2021 05:04 AM CO2 24 03/28/2021 05:04 AM CA 8.3 (L) 03/28/2021 05:04 AM BUN 25 (H) 03/28/2021 05:04 AM CREAT 0.68 03/28/2021 05:04 AM GLUCOSE 299 (H) 03/28/2021 05:04 AM ANIONGAP 8 03/28/2021 05:04 AM CMP result (most recent): Lab Results Component Value Date/Time NA 140 03/28/2021 05:04 AM K 4.1 03/28/2021 05:04 AM CL 108 (H) 03/28/2021 05:04 AM CO2 24 03/28/2021 05:04 AM CA 8.3 (L) 03/28/2021 05:04 AM BUN 25 (H) 03/28/2021 05:04 AM CREAT 0.68 03/28/2021 05:04 AM GLUCOSE 299 (H) 03/28/2021 05:04 AM TOTALPROTEIN 4.8 (L) 03/28/2021 05:04 AM ALBUMIN 2.8 (L) 03/28/2021 05:04 AM BILITOTAL <0.2 (L) 03/28/2021 05:04 AM ALKPHOS 63 03/28/2021 05:04 AM AST 15 03/28/2021 05:04 AM ALT 15 03/28/2021 05:04 AM ANIONGAP 8 03/28/2021 05:04 AM HEPATIC function panel result (most recent): Lab Results Component Value Date/Time ALT 15 03/28/2021 05:04 AM AST 15 03/28/2021 05:04 AM ALKPHOS 63 03/28/2021 05:04 AM Hemoglobin A1C result (most recent): No results found for: HGBA1C, [id number] LIPID panel result (most recent): No results found for: CHOLTOT, HDL, LDLCALC, LDLDIRECT, TRIGLYCERIDE UA results do not (most recent): Lab Results Component Value Date/Time PHUA 5.0 03/28/2021 01:24 AM SGUR 1.024 03/28/2021 01:24 AM URINELEUKOC Trace (A) 03/28/2021 01:24 AM NITRITEUA Negative 03/28/2021 01:24 AM KETONEURINE Negative 03/28/2021 01:24 AM PROTEINUA Negative 03/28/2021 01:24 AM GLUUA Negative 03/28/2021 01:24 AM BLOODUA 2+ (A) 03/28/2021 01:24 AM WBCU 6-10 (A) 03/28/2021 01:24 AM RBCUA 51-100 (A) 03/28/2021 01:24 AM BACTERIAUA Negative 03/28/2021 01:24 AM UREPITHELIAL 0-5 03/28/2021 01:24 AM Results for orders placed or performed during the hospital encounter of 03/13/21 EKG 12-LEAD Narrative Stationary ECG Study [facility] Test Date: 03/17/2021 7:05 PM Pat Name: VICK SIEGEL Department: 45 Room: 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 Daily rounds include discussion of I and Os, avoiding hypotension and hypoglycemia. Daily medication review completed. Ongoing efforts to coordinate care, maintain euvolemia, adequate nutrition, electrolyte management, appropriate BP management, overall stability, and management of co-morbidites individually are being dictated by clinical progress. Documentation partially completed using dictation services and EMR. Please excuse any typographicalerrors that may have occurred. FEI Titus MD Internal Medicine Director // MMAKING SUPERVISOR * Molly Flores GN - 03/31/2021 10:39 PM CST Patient experienced episodes of breakthrough pain. notified, times adjusted for PRN tylenol and PRN tizanidine. Head-to-toe re-assessment observations documented in flowsheet. Any noted deviations from baseline observed in head-to-toe assessment: none Any abnormal VS requiring intervention or close monitoring: Yes, HTN. notified, midodrine readjusted. Patient has had no falls at this time and is fall risk level/color red. Interventions in Place: [x] Bed Alarm [] Clip Chair Alarm [x] Call Light within reach, return demo by patient completed [] Handoff patient when returning him/her to room [x] Wheelchair/Walker out of reach [x] Low Bed [] Mats in Place [x] Fall Risk Magnet on Door [x] Fall Risk Magnet on Schedule Board [x] Fall Risk Armband on Patient [] Sitter [] Other If patient is red fall risk: [x] Patient will not be left alone in bathroom [] Self-Releasing Belt (a one time order is required) [] Patient demonstrated ability to release wheelchair alarmed seatbelt. [] Observation Room Patient Education on Medications Education provided Re: Vick Siegel This education was provided to the patient Name of medication(s): all administered medications The education included the following: How to identify their medication, Administering their medication, Understanding the side effects oftheir medication MAX Cyr MMAKING SUPERVISOR * Reggie Johnson MD - 03/31/2021 12:06 PM CST Images from the original note were not included. Internal Medicine/Rehabilitation Service Patient: Vick Siegel Date of : 1955 Admission Date: (03/27/2021) Vitals With Comments 03/31/2021 0500 03/31/2021 0309 03/30/2021 2300 03/30/2021 1910 BP: 146/80 135/77 155/82 145/80 Pulse: 91 96 96 95 Resp: -- 16 -- 16 Temp: 98.5 ??F (36.9 ??C) 99.4 ??F (37.4 ??C) -- 98.8 ??F (37.1 ??C) Temp src: Oral Oral -- Oral SpO2: -- 94 % -- 98 % DIET GENERAL Effective Now Full Code Timeline (including subjective): 03/31/21- Patient seen resting in her room. She states she is doing well. She is slightly discouraged because she wants to heal faster than she is. Continue to encourage and provide emotional support. Incision is healing nicely. Lidocaine patches are not providing relief for her neck muscles. Will discontinue and offer BenGay cream. Ongoing orthostatic hypotension. Intake and output is decent. Will review midodrine. 03/29/21- A.m. labs completed. Patient able to take a shower. Clemons catheter placed in an effort torest bladder. Good urine output. Pain in anterior neck and middle back scribed as tightness. No adverse neurologic changes. Continue inpatient rehab process cord injury. 03/28/21- Initiate rehab. Full medication reconciliation has occurred. Meds, labs, and vitals reviewed. VSS. 03/27/2021 - [facility] - (Admission Data below) Assessment and Plan: Present on Admission: Debility-Rehab Brown-Sequard syndrome- Flexeril, Gabapentin, Zanaflex Neck pain Cervical spondylosis with radiculopathy Cord compression HTN (hypertension) GERD (gastroesophageal reflux disease) Arthritis Hyponatremia Urinary retention Neurological deficit present DVT PRX: Enoxaparin, SCDS Electrolyte derangement-Bind and Replenish Anemia-Follow H/H. Transfuse when clinically indicated Pain Control- titration throughout acute inpatient rehab process Nausea-Zofran prn Constipation-Bowel Regimen, follow output daily Polypharmacy-Follow. Medications fully reconciled Vitamin deficiency-Supplement Nursing Instructions: Incentive spirometry, I/O's, Vitals every 8 hours, Nutrition and ADLs Record Review: moderate Old medical records, labs, preadmission screening, previous radiology studies. Nutritional support and Blood sugar management - encourage adequate diet, caloric intake, fluid balance Avoid hypoglycemia Medication Profile: Allergies Allergen Reactions Codeine Nausea and Vomiting Oxycodone Nausea and Vomiting Scheduled Medication Profile: Facility-Administered Medications as of 03/31/2021 Medication Dose Frequency Provider Last Rate Last Admin Lidocaine 4 % topical patch 1 Patch 1 Patch daily Be Rangel, tiZANidine (ZANAFLEX) tablet 4 mg 4 mg every 6 hours PRN Be Rangel, acetaminophen (TYLENOL) tablet 650 mg 650 mg every 4 hours PRN Be Rangel, bisacodyl (THE MAGIC BULLET) rectal suppository 10 mg 10 mg daily Cotterell, Be A, DO 10 mg at105/31/202037 gabapentin (NEURONTIN) capsule 200 mg 200 mg every 8 hours Yuliet Gomez NP 200 mg at 507 docusate sodium (COLACE) capsule 100 mg 100 mg BID Yuliet Gomez NP 100 mg at 03/31/21 0900 pantoprazole (PROTONIX) tablet 40 mg 40 mg daily BEFORE breakfast Yuliet Gomez NP 40 mg at 03/31/21 0507 sodium chloride tablet 2 Gram 2 Gram every 8 hours Yuliet Gomez NP 2 Gram at 03/31/21 0507 polyethylene glycol (MIRALAX) packet 17 Gram 17 Gram daily Yuliet Gomez NP 17 Gram at 03/31/21 0900 midodrine (PROAMATINE) tablet 15 mg 15 mg every 8 hours Yuliet Gomez NP 15 mg at 03/30/21 1335 fludrocortisone (FLORINEF) tablet 0.2 mg 0.2 mg daily Yuliet Gomez NP 0.2 mg at 03/31/21 0900 naloxone (NARCAN) 0.4 mg/mL injection 0.1 mg 0.1 mg see admin instructions Yuliet Gomez NP ondansetron (ZOFRAN ODT) tablet 4 mg 4 mg every 6 hours PRN Yuliet Gomez NP prochlorperazine maleate (COMPAZINE) tablet 10 mg 10 mg every 6 hours PRN Yuliet Gomez NP bisacodyL (DULCOLAX) delayed release tablet 5 mg 5 mg daily PRN Yuliet Gomez NP calcium as carbonate (TUMS) 500 mg (200 mg elemental) chewable tablet 200 mg 200 mg every 4 hours PRN Yuliet Gomez NP enoxaparin (LOVENOX) injection 40 mg 40 mg every 24 hours Yuliet Gomez NP 40 mg at 03/30/212037 Admission Data : CC: Debility/ Brown Sequard Syndrome/ s/p ACDF at C4/5 and C5/6 and Posterior decompression/laminectomy at T2-3 HPI: Vick Siegel is a 65 y.o. female who recently has been admitted to [facility] for comprehensive rehabilitation - multiple complex medical issues will impact medical management throughout the acute inpatient rehabilitation process. Pt has a significant medical history including but not limited to arthritis, GERD, and HTN. Pt presented to [facility] on 03/13 with c/o posterior headaches, neck pain, and R arm pain. She reported the pain as aching sharp pressure which has been ongoing for 3 months. She noted it is primarily located at the back of her neck, radiating into her posterior neck and off the R side into her shoulder and deltoid. Pt also reported numbness in 1st-3rd fingers on theright when sleeping, as well as intermittent sensation of both feet. Cervical MRI showed disc osteophyte at C4-5 on the right side causing severe neural foraminal stenosis as well as significant discbulge osteophyte on the left at C5-6, as well as mild cord compression at C4-5. There was also large disc herniation at T8 2-3 causing cord compression and T2 signal increase. Pt brought to OR and und erwent ACDF at C4/5 and C5/6 as well as posterior decompression/laminectomy at T2-[address] Patton. Pt tolerated procedure well. MRI and CT showed large calcified disc herniation at T2-3 unchanged, overall edema in cord at T2-3 slightly smaller than preop but seems brighter, correlating with BrownSequard syndrome. Myelogram on 03/17 did not show any significant residual or persistent cord compression. Pt experienced good return of function on right and some return of function on left. On Lovenox for dvt prx, can be fully AC. Pt began working with and tolerating therapy and has been deemed medically safe and appropriate for comprehensive rehab. PMR MD to have formal referral placed. Past Medical History: Diagnosis Date Arthritis GERD (gastroesophageal reflux disease) Difficulty taking NSAIDs. HTN (hypertension) Post-operative nausea and vomiting Past Surgical History: Procedure Laterality Date ENDOSCOPY, UPPER GI HX ANTERIOR CERVICAL DISCECTOMY W/ FUSION N/A 03/13/2021 CERVICAL DISCECTOMY FUSION 2 LEVEL ANTERIOR performed by Katherin Patton MD at [facility] OR [facility] HX SECTION x 2 HX COLONOSCOPY HX HYSTERECTOMY HX MENISCECTOMY Right N/A MD FORREST W/O FACETEC FORAMOT/[facility] 04/13 VRT SEG, THORACIC N/A 03/13/2021 THORACIC LAMINECTOMY performed by Katherin Patton MD at [facility] Family History Problem Relation Name Age of Onset Lung Cancer Father Kidney Cancer Father Hypertension Father Other Father Tobacco Use Cervical Cancer Mother Hypertension Mother Other Mother Tobacco Use Breast Cancer Sister Hypertension Sister Hypertension Brother Other Brother Tobacco Use Stroke Maternal Grandmother Other Maternal Grandfather Tobacco Use Other Paternal Grandmother Tobacco Use Lung Cancer Paternal Grandfather Other Paternal Grandfather Tobacco Use Breast Cancer Other Aunt Social History Tobacco Use Smoking status: Former Smoker Packs/day: 0.50 Years: 5.00 Pack years: 2.50 Types: Cigarettes Quit date: 1979 Years since quittin.9 Smokeless tobacco: Never Used Vaping Use Vaping Use: Never used Substance Use Topics Alcohol use: Never Drug use: Never reports that she quit smoking about 41 years ago. Her smoking use included cigarettes. She has a 2.50 pack-year smoking history. She has never used smokeless tobacco. She reports that she does not drink alcohol and does not use drugs. Review of Systems: No new fever or chills, worsening cough or colds, chest pain No new abdominal pain, heat or cold intolerance weakness Objective Data: Vitals With Comments 03/31/2021 0500 03/31/2021 0309 03/30/2021 2300 03/30/2021 1910 BP: 146/80 135/77 155/82 145/80 Pulse: 91 96 96 95 Resp: -- 16 -- 16 Temp: 98.5 ??F (36.9 ??C) 99.4 ??F (37.4 ??C) -- 98.8 ??F (37.1 ??C) Temp src: Oral Oral -- Oral SpO2: -- 94 % -- 98 % 03/31 0700 - 03/31 1859 In: 360 [P.O.:360] Out: 450 [Urine:450] General alert, awake, no cardiopulmonary distress, weakness Lungs Decreased breath sounds at bases- Heart regular rate and rhythm Abdomen soft, non-tender, with bowel sounds Extremities pulses noted, no cyanosis CBC result (most recent): Lab Results Component Value Date/Time WBC 4.4 03/28/2021 05:04 AM HGB 9.3 (L) 03/28/2021 05:04 AM HGBPOC 11.5 (L) 03/13/2021 02:58 PM HCT 29.5 (L) 03/28/2021 05:04 AM PLT 215 03/28/2021 05:04 AM MCV 92.8 03/28/2021 05:04 AM BMP result (most recent): Lab Results Component Value Date/Time NA 140 03/28/2021 05:04 AM K 4.1 03/28/2021 05:04 AM CL 108 (H) 03/28/2021 05:04 AM CO2 24 03/28/2021 05:04 AM CA 8.3 (L) 03/28/2021 05:04 AM BUN 25 (H) 03/28/2021 05:04 AM CREAT 0.68 03/28/2021 05:04 AM GLUCOSE 299 (H) 03/28/2021 05:04 AM ANIONGAP 8 03/28/2021 05:04 AM CMP result (most recent): Lab Results Component Value Date/Time NA 140 03/28/2021 05:04 AM K 4.1 03/28/2021 05:04 AM CL 108 (H) 03/28/2021 05:04 AM CO2 24 03/28/2021 05:04 AM CA 8.3 (L) 03/28/2021 05:04 AM BUN 25 (H) 03/28/2021 05:04 AM CREAT 0.68 03/28/2021 05:04 AM GLUCOSE 299 (H) 03/28/2021 05:04 AM TOTALPROTEIN 4.8 (L) 03/28/2021 05:04 AM ALBUMIN 2.8 (L) 03/28/2021 05:04 AM BILITOTAL <0.2 (L) 03/28/2021 05:04 AM ALKPHOS 63 03/28/2021 05:04 AM AST 15 03/28/2021 05:04 AM ALT 15 03/28/2021 05:04 AM ANIONGAP 8 03/28/2021 05:04 AM HEPATIC function panel result (most recent): Lab Results Component Value Date/Time ALT 15 03/28/2021 05:04 AM AST 15 03/28/2021 05:04 AM ALKPHOS 63 03/28/2021 05:04 AM Hemoglobin A1C result (most recent): No results found for: HGBA1C, [id number] LIPID panel result (most recent): No results found for: CHOLTOT, HDL, LDLCALC, LDLDIRECT, TRIGLYCERIDE UA results do not (most recent): Lab Results Component Value Date/Time PHUA 5.0 03/28/2021 01:24 AM SGUR 1.024 03/28/2021 01:24 AM URINELEUKOC Trace (A) 03/28/2021 01:24 AM NITRITEUA Negative 03/28/2021 01:24 AM KETONEURINE Negative 03/28/2021 01:24 AM PROTEINUA Negative 03/28/2021 01:24 AM GLUUA Negative 03/28/2021 01:24 AM BLOODUA 2+ (A) 03/28/2021 01:24 AM WBCU 6-10 (A) 03/28/2021 01:24 AM RBCUA 51-100 (A) 03/28/2021 01:24 AM BACTERIAUA Negative 03/28/2021 01:24 AM UREPITHELIAL 0-5 03/28/2021 01:24 AM Results for orders placed or performed during the hospital encounter of 03/13/21 EKG 12-LEAD Narrative Stationary ECG Study [facility] Test Date: 03/17/2021 7:05 PM Pat Name: VICK SIEGEL Department: 45 Room: On License Of [facility] 6 Gender: F 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 Daily rounds include discussion of I and Os, avoiding hypotension and hypoglycemia. Daily medication review completed. Ongoing efforts to coordinate care, maintain euvolemia, adequate nutrition, electrolyte management, appropriate BP management, overall stability, and management of co-morbidites individually are being dictated by clinical progress. Documentation partially completed using dictation services and EMR. Please excuse any typographicalerrors that may have occurred. FEI Titus MD Internal Medicine Director // MMAKING SUPERVISOR * Be Rangel DO - 03/31/2021 10:51 AM CST Images from the original note were not included. Physical Medicine and Rehabilitation Progress Note Admission Date: 03/27/2021 Length of stay: 4 days Patient: Vick Siegel Chief complaint: Wore out Subjective: Patient seen and examined during morning rounds. She reports poor sleep due to pain and headaches. She notes tightness in her neck that is causing atension type headache. She feels the tizanidine is helpful but does not last long enough. Continuesto have some symptoms of orthostatic hypotension with standing. Bowels are moving with bowel routine Last Bowel Movement (mm/dd/yyyy): 03/30/21 (03/30/212099) ROS: As per HPI and: No fever, chills, chest pain, shortness of breath, headache or cough. Social History: Lives alone in a 1 level home with 1-2 steps to enter Medications reviewed. Current Facility-Administered Medications: ??? Lidocaine 4 % topical patch 1 Patch, 1 Patch, Topical, daily, Be Rangel, DO ??? tiZANidine (ZANAFLEX) tablet 4 mg, 4 mg, Oral, every 6 hours PRN, Be Rangel, DO ??? acetaminophen (TYLENOL) tablet 650 mg, 650 mg, Oral, every 4 hours PRN, Be Rangel, DO ??? bisacodyl (THE MAGIC BULLET) rectal suppository 10 mg, 10 mg, Rectal, daily, Brenton Rangel, , 10 mg at 03/30/212037 ??? gabapentin (NEURONTIN) capsule 200 mg, 200 mg, Oral, every 8 hours, Yuliet Gomez NP, 200 mg at 03/31/21 0507 ??? docusate sodium (COLACE) capsule 100 mg, 100 mg, Oral, BID, Yuliet Gomez NP, 100 mg at 03/31/21 0900 ??? pantoprazole (PROTONIX) tablet 40 mg, 40 mg, Oral, daily BEFORE breakfast, Yuliet Gomez NP, 40 mg at 03/31/21 0507 ??? sodium chloride tablet 2 Gram, 2 Gram, Oral, every 8 hours, Yuliet Gomez, FEI, 2 Gram at 03/31/21 0507 ??? polyethylene glycol (MIRALAX) packet 17 Gram, 17 Gram, Oral, daily, Yuliet Gomez, INFRASTRUCTURE ARCHITECT, 17 Gram at 03/31/21 0900 ??? midodrine (PROAMATINE) tablet 15 mg, 15 mg, Oral, every 8 hours, Yuliet Gomez, INFRASTRUCTURE ARCHITECT, 15 mg at 03/30/21 1335 ??? fludrocortisone (FLORINEF) tablet 0.2 mg, 0.2 mg, Oral, daily, Yuliet Gomez NP, 0.2 mg at106/01/20 0900 ??? naloxone (NARCAN) 0.4 mg/mL injection 0.1 mg, 0.1 mg, IV, see admin instructions, Yuliet Gomez NP ??? ondansetron (ZOFRAN ODT) tablet 4 mg, 4 mg, Oral, every 6 hours PRN, Yuliet Gomez, INFRASTRUCTURE ARCHITECT ??? prochlorperazine maleate (COMPAZINE) tablet 10 mg, 10 mg, Oral, every 6 hours PRN, Yuliet Gomez, FEI ??? bisacodyL (DULCOLAX) delayed release tablet 5 mg, 5 mg, Oral, daily PRN, Yuliet Gomez, INFRASTRUCTURE ARCHITECT ??? calcium as carbonate (TUMS) 500 mg (200 mg elemental) chewable tablet 200 mg, 200 mg, Oral, every 4 hours PRN, Yuliet Gomez, INFRASTRUCTURE ARCHITECT ??? enoxaparin (LOVENOX) injection 40 mg, 40 mg, subCUT, every 24 hours, Yuliet Gomez, FEI, 40 mg at 03/30/21 203 ??? [DISCONTINUED] tiZANidine (ZANAFLEX) tablet 4 mg, 4 mg, Oral, every 8 hours, Yuliet Gomez,FEI, 4 mg at 03/31/21 0506 ??? [DISCONTINUED] acetaminophen (TYLENOL) tablet 650 mg, 650 mg, Oral, every 6 hours PRN, Yuliet Gomez, FEI, 650 mg at 03/31/21 0911 Objective: Vitals: BP (!) 146/80 Pulse 91 Temp 98.5 ??F (36.9 ??C) (Oral) Resp 16 SpO2 94% General:alert, no distress and cooperative Lungs:clear to auscultation bilaterally, normal respiratory effort. CV: Regular rate and rhythm Ext: No significant calf/ankle edema. Neuro: CN II-XII grossly intact, no facial droop Psyche: Mood is appropriate to circumstances. Affect is Euthymic Incision: Data Review: No results found for any visits on 03/27/21 (from the past 24 hour(s)). ASSESSMENT/PLAN: Patient is a 65 y.o. female who underwent C4-6 ACDF and T2-T3 laminectomy on 03/13/[address] 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 Functional status:Therapy progress noted today: Functional status: Upon evaluation by physical therapy, she is max is for rolling left to right, dependent for sit to lying transfers and lying to sitting edge of bed transfers. Benefits to stand transfers and bed to chair transfers Progress toward goals and modifications to course of treatment: Initiation of inpatient rehab Patient reports: Shoulder and neck muscle tightness with tension headache ?? Rehab: -Impairments: Gait, function, self-care, mobility, ADLs - Initiate PT/OT rehabilitation nursing, recreation therapy, and social security assessor. -Isolation: None -Precautions: None -Pain: As needed Tylenol. Gabapentin. Tizanidine -Fall prevention: Education and therapies ?? Neurogenic bladder: Intermittent catheterization ?? Neurogenic bowel: Bowel routine with Magic bullet. Colace, MiraLAX ?? Skin/Wound Care: Monitor surgical incision for proper healing ?? Prophylaxis/Prevention: DVT: Lovenox GI: Protonix ?? Medical History/Active Issues: To be managed by primary medicine team Orthostatic hypotension: Midodrine, Florinef Hyponatremia: Salt tabs ?? FEN: DIET GENERAL Effective Now -Replete electrolytes as needed - Continue vitamins/supplements -Periodic labs, monitor trends ?? Disposition: -Anticipated location: Home -ELOS: 28 days -Code Status: Full Code ? F/U appts: -Huang Alonso MD after discharge from rehab -Dr. Patton -Rehab Discussed with medicine 03/31/2021 Electronically Signed By: Be Rangel DO ATTESTATION STATEMENTS Portions of this note were transcribed using [employer] speaking computerized voice recognition without a human social insurance analyst. This report may or may not have been adjusted for typographical, grammatical and syntax errors or malapropisms. MMAKING SUPERVISOR * Fox Carver RN - 03/30/2021 6:33 AM CST Patient experienced routine day during this 12-hour shift of this nurse. Exhibiting baseline functioning, activity, & interaction with nursing. Receiving skilled therapies as ordered. Meals &fluids offered as ordered with I & Os documented in flowsheet. Medication administration as documented in MAR. Any noted exceptions to above statement: none Head-to-toe re-assessment observations documented in flowsheet. Any noted deviations from baseline observed in head-to-toe assessment: none Any abnormal VS requiring intervention or close monitoring: no Patient has had no falls at this time and is fall risk level/color RED Interventions in Place: [x] Bed Alarm [] Clip Chair Alarm [x] Call Light within reach, return demo by patient completed [] Handoff patient when returning him/her to room [x] Wheelchair/Walker out of reach [] Low Bed [] Mats in Place [x] Fall Risk Magnet on Door [x] Fall Risk Magnet on Schedule Board [x] Fall Risk Armband on Patient [] Sitter [] Other If patient is red fall risk: [x] Patient will not be left alone in bathroom [] Self-Releasing Belt (a one time order is required) [] Patient demonstrated ability to release wheelchair alarmed seatbelt. [] Observation Room Patient Education on Medications Education provided Re: Vick Siegel This education was provided to the patient Name of medication(s): pm medications provided The education included the following: Understanding the side effects of their medication Fox Carver RN MMAKING SUPERVISOR * Kami Apple RN - 03/29/2021 5:53 PM CST End of shift note: Received bedside report and assumed care of Pt at 1600 Neuro/Psych: A/Ox4 Resp/CV: Respirations even and regular, no s/sx SOB or dyspnea noted GI/: Incontinent of B/B, clemons in place, Br tonight Skin/Wound: coccyx reddened, allison applied, incisions are SOFTWARE PROGRAM MANAGER C/D/I. Pain: No c/o pain at this time General: Participated in therapy as ordered. Transferred from 229 to G45, pt oriented to room and staff. Pt belongings brought to room by family and staff. No c/o from pt at this time. Will continue to monitor. Fall precautions maintained with call light and personal items in reach and bed low withwheels locked. Alarms activated, will continue to monitor and report to oncoming nurse. MMAKING SUPERVISOR * Reggie Johnson MD - 03/29/2021 11:01 AM CST Images from the original note were not included. Internal Medicine/Rehabilitation Service Patient: Vick Siegel Date of : 1955 Admission Date: (03/27/2021) Vitals With Comments 03/29/2021 0600 03/28/2021 2100 03/28/2021 1640 03/28/2021 1500 BP: 127/76 138/63 -- 150/83 Pulse: 77 91 -- 79 Resp: Temp: 98.8 ??F (37.1 ??C) 98.5 ??F (36.9 ??C) -- 99 ??F (37.2 ??C) Temp src: Oral Oral -- Oral SpO2: 95 % 98 % 99 % 99 % DIET GENERAL Effective Now Full Code Timeline (including subjective): 03/29/21- A.m. labs completed.??Patient able to take a shower. Clemons catheter placed in an effort to rest bladder. Good urine output. Pain in anterior neck and middle back scribed as tightness. No adverse neurologic changes. Continue inpatient rehab process cord injury. 03/28/21- Initiate rehab. Full medication reconciliation has occurred. Meds, labs, and vitals reviewed. VSS. 03/27/2021 - [facility] - (Admission Data below) Assessment and Plan: Present on Admission: Debility-Rehab ??? Brown-Sequard syndrome- Flexeril, Gabapentin, Zanaflex ??? Neck pain ??? Cervical spondylosis with radiculopathy ??? Cord compression ??? HTN (hypertension) ??? GERD (gastroesophageal reflux disease) ??? Arthritis ??? Hyponatremia ??? Urinary retention ??? Neurological deficit present DVT PRX: Enoxaparin, SCDS Electrolyte derangement-Bind and Replenish Anemia-Follow H/H. Transfuse when clinically indicated Pain Control- titration throughout acute inpatient rehab process Nausea-Zofran prn Constipation-Bowel Regimen, follow output daily Polypharmacy-Follow. Medications fully reconciled Vitamin deficiency-Supplement Nursing Instructions: Incentive spirometry, I/O's, Vitals every 8 hours, Nutrition and ADLs Record Review: moderate Old medical records, labs, preadmission screening, previous radiology studies. Nutritional support and Blood sugar management - encourage adequate diet, caloric intake, fluid balance Avoid hypoglycemia Medication Profile: Allergies Allergen Reactions ??? Codeine Nausea and Vomiting ??? Oxycodone Nausea and Vomiting Scheduled Medication Profile: Facility-Administered Medications as of 03/29/2021 Medication Dose Frequency Provider Last Rate Last Admin ??? bisacodyl (THE MAGIC BULLET) rectal suppository 10 mg 10 mg daily Be Rangel DO 10 mg at 03/28/21 192 ??? gabapentin (NEURONTIN) capsule 200 mg 200 mg every 8 hours Yuliet Gomez, INFRASTRUCTURE ARCHITECT 200 mg at 03/29/21 0428 ??? docusate sodium (COLACE) capsule 100 mg 100 mg BID Yuliet Gomez, INFRASTRUCTURE ARCHITECT 100 mg at 03/28/21 2232 ??? pantoprazole (PROTONIX) tablet 40 mg 40 mg daily BEFORE breakfast Yuliet Gomez, INFRASTRUCTURE ARCHITECT 40 mg at 03/29/21 0429 ??? tiZANidine (ZANAFLEX) tablet 4 mg 4 mg every 8 hours Yuliet Gomez, INFRASTRUCTURE ARCHITECT 4 mg at 03/29/21 0428 ??? sodium chloride tablet 2 Gram 2 Gram every 8 hours Yuliet Gomez NP 2 Gram at 03/29/21427 ??? polyethylene glycol (MIRALAX) packet 17 Gram 17 Gram daily Yuliet Gomez NP 17 Gram at 03/28/21 09 ??? midodrine (PROAMATINE) tablet 15 mg 15 mg every 8 hours Yuliet Gomez NP 15 mg at ??? fludrocortisone (FLORINEF) tablet 0.2 mg 0.2 mg daily Yuliet Gomez NP 0.2 mg at 03/28/21 09 ??? acetaminophen (TYLENOL) tablet 650 mg 650 mg every 6 hours PRN Yuliet Gomez NP 650 mg at 03/29/21425 ??? naloxone (NARCAN) 0.4 mg/mL injection 0.1 mg 0.1 mg see admin instructions Yuliet Gomez NP ??? ondansetron (ZOFRAN ODT) tablet 4 mg 4 mg every 6 hours PRN Yuliet Gomez, FIE ??? prochlorperazine maleate (COMPAZINE) tablet 10 mg 10 mg every 6 hours PRN Yuliet Gomez, FEI ??? bisacodyL (DULCOLAX) delayed release tablet 5 mg 5 mg daily PRN Yuliet Gomez, FEI ??? calcium as carbonate (TUMS) 500 mg (200 mg elemental) chewable tablet 200 mg 200 mg every 4 hours PRN Yuliet Gomez, FEI ??? enoxaparin (LOVENOX) injection 40 mg 40 mg every 24 hours Yuliet Gomez NP 40 mg at 03/28/211920 Admission Data : CC: Debility/ Brown Sequard Syndrome/ s/p ACDF at C4/5 and C5/6 and Posterior decompression/laminectomy at T2-3 HPI: Vick Siegel is a 65 y.o. female who recently has been admitted to [facility] for comprehensive rehabilitation - multiple complex medical issues will impact medical management throughout the acute inpatient rehabilitation process. Pt has a significant medical history including but not limited to arthritis, GERD, and HTN. Pt presented to [facility] on 03/13 with c/o posterior headaches, neck pain, and R arm pain. She reported the pain as aching sharp pressure which has been ongoing for 3 months. She noted it is primarily located at the back of her neck, radiating into her posterior neck and off the R side into her shoulder and deltoid. Pt also reported numbness in 1st-3rd fingers on theright when sleeping, as well as intermittent sensation of both feet. Cervical MRI showed disc osteophyte at C4-5 on the right side causing severe neural foraminal stenosis as well as significant discbulge osteophyte on the left at C5-6, as well as mild cord compression at C4-5. There was also large disc herniation at T8 2-3 causing cord compression and T2 signal increase. Pt brought to OR and und erwent ACDF at C4/5 and C5/6 as well as posterior decompression/laminectomy at T2-[address] Patton. Pt tolerated procedure well. MRI and CT showed large calcified disc herniation at T2-3 unchanged, overall edema in cord at T2-3 slightly smaller than preop but seems brighter, correlating with BrownSequard syndrome. Myelogram on 03/17 did not show any significant residual or persistent cord compression. Pt experienced good return of function on right and some return of function on left. On Lovenox for dvt prx, can be fully AC. Pt began working with and tolerating therapy and has been deemed medically safe and appropriate for comprehensive rehab. PMR MD to have formal referral placed. Past Medical History: Diagnosis Date ??? Arthritis ??? GERD (gastroesophageal reflux disease) Difficulty taking NSAIDs. ??? HTN (hypertension) ??? Post-operative nausea and vomiting Past Surgical History: Procedure Laterality Date ??? ENDOSCOPY, UPPER GI ??? HX ANTERIOR CERVICAL DISCECTOMY W/ FUSION N/A 03/13/2021 CERVICAL DISCECTOMY FUSION 2 LEVEL ANTERIOR performed by Katherin Patton MD at [facility] OR [facility] ??? HX SECTION x 2 ??? HX COLONOSCOPY ??? HX HYSTERECTOMY ??? HX MENISCECTOMY Right N/A ??? MD FORREST W/O FACETEC FORAMOT/[facility] 04/13 VRT SEG, THORACIC N/A 03/13/2021 THORACIC LAMINECTOMY performed by Katherin Patton MD at [facility] OR [facility] Family History Problem Relation Name Age of Onset ??? Lung Cancer Father ??? Kidney Cancer Father ??? Hypertension Father ??? Other Father Tobacco Use ??? Cervical Cancer Mother ??? Hypertension Mother ??? Other Mother Tobacco Use ??? Breast Cancer Sister ??? Hypertension Sister ??? Hypertension Brother ??? Other Brother Tobacco Use ??? Stroke Maternal Grandmother ??? Other Maternal Grandfather Tobacco Use ??? Other Paternal Grandmother Tobacco Use ??? Lung Cancer Paternal Grandfather ??? Other Paternal Grandfather Tobacco Use ??? Breast Cancer Other Aunt Social History Tobacco Use ??? Smoking status: Former Smoker Packs/day: 0.50 Years: 5.00 Pack years: 2.50 Types: Cigarettes Quit date: 1980 Years since quittin.9 ??? Smokeless tobacco: Never Used Vaping Use ??? Vaping Use: Never used Substance Use Topics ??? Alcohol use: Never ??? Drug use: Never reports that she quit smoking about 41 years ago. Her smoking use included cigarettes. She has a 2.50 pack-year smoking history. She has never used smokeless tobacco. She reports that she does not drink alcohol and does not use drugs. Review of Systems: No new fever or chills, worsening cough or colds, chest pain No new abdominal pain, heat or cold intolerance weakness Objective Data: Vitals With Comments 03/29/2021 0600 03/28/2021 2100 03/28/2021 1640 03/28/2021 1500 BP: 127/76 138/63 -- 150/83 Pulse: 77 91 -- 79 Resp: Temp: 98.8 ??F (37.1 ??C) 98.5 ??F (36.9 ??C) -- 99 ??F (37.2 ??C) Temp src: Oral Oral -- Oral SpO2: 95 % 98 % 99 % 99 % 03/29 0700 - 03/29 1859 In: 300 [P.O.:300] Out: - General alert, awake, no cardiopulmonary distress, weakness Lungs Decreased breath sounds at bases- Heart regular rate and rhythm Abdomen soft, non-tender, with bowel sounds Extremities pulses noted, no cyanosis CBC result (most recent): Lab Results Component Value Date/Time WBC 4.4 03/28/2021 05:04 AM HGB 9.3 (L) 03/28/2021 05:04 AM HGBPOC 11.5 (L) 03/13/2021 02:58 PM HCT 29.5 (L) 03/28/2021 05:04 AM PLT 215 03/28/2021 05:04 AM MCV 92.8 03/28/2021 05:04 AM BMP result (most recent): Lab Results Component Value Date/Time NA 140 03/28/2021 05:04 AM K 4.1 03/28/2021 05:04 AM CL 108 (H) 03/28/2021 05:04 AM CO2 24 03/28/2021 05:04 AM CA 8.3 (L) 03/28/2021 05:04 AM BUN 25 (H) 03/28/2021 05:04 AM CREAT 0.68 03/28/2021 05:04 AM GLUCOSE 299 (H) 03/28/2021 05:04 AM ANIONGAP 8 03/28/2021 05:04 AM CMP result (most recent): Lab Results Component Value Date/Time NA 140 03/28/2021 05:04 AM K 4.1 03/28/2021 05:04 AM CL 108 (H) 03/28/2021 05:04 AM CO2 24 03/28/2021 05:04 AM CA 8.3 (L) 03/28/2021 05:04 AM BUN 25 (H) 03/28/2021 05:04 AM CREAT 0.68 03/28/2021 05:04 AM GLUCOSE 299 (H) 03/28/2021 05:04 AM TOTALPROTEIN 4.8 (L) 03/28/2021 05:04 AM ALBUMIN 2.8 (L) 03/28/2021 05:04 AM BILITOTAL <0.2 (L) 03/28/2021 05:04 AM ALKPHOS 63 03/28/2021 05:04 AM AST 15 03/28/2021 05:04 AM ALT 15 03/28/2021 05:04 AM ANIONGAP 8 03/28/2021 05:04 AM HEPATIC function panel result (most recent): Lab Results Component Value Date/Time ALT 15 03/28/2021 05:04 AM AST 15 03/28/2021 05:04 AM ALKPHOS 63 03/28/2021 05:04 AM Hemoglobin A1C result (most recent): No results found for: HGBA1C, [id number] LIPID panel result (most recent): No results found for: CHOLTOT, HDL, LDLCALC, LDLDIRECT, TRIGLYCERIDE UA results do not (most recent): Lab Results Component Value Date/Time PHUA 5.0 03/28/2021 01:24 AM SGUR 1.024 03/28/2021 01:24 AM URINELEUKOC Trace (A) 03/28/2021 01:24 AM NITRITEUA Negative 03/28/2021 01:24 AM KETONEURINE Negative 03/28/2021 01:24 AM PROTEINUA Negative 03/28/2021 01:24 AM GLUUA Negative 03/28/2021 01:24 AM BLOODUA 2+ (A) 03/28/2021 01:24 AM WBCU 6-10 (A) 03/28/2021 01:24 AM RBCUA 51-100 (A) 03/28/2021 01:24 AM BACTERIAUA Negative 03/28/2021 01:24 AM UREPITHELIAL 0-5 03/28/2021 01:24 AM Results for orders placed or performed during the hospital encounter of 03/13/21 EKG 12-LEAD Narrative Stationary ECG Study [facility] Test Date: 03/17/2021 7:05 PM Pat Name: VICK SIEGEL Department: 45 Room: [facility] Gender: F Boilermaker Fitter: harlan : 1955 Requested By: KATHERIN Lindsay Order Number: [id number] Reading MD: Bhupinder Morales Measurements Intervals [place] Rate: 63 P: 53 MD: 165 QRS: 15 QRSD: 96 T: 22 QT: 433 QTc: 444 Interpretive Statements Sinus rhythm Ventricular premature complex Left atrial enlargement Low voltage, precordial leads PRWP Electronically Signed On 03-18-2021 8:08:07 BROOMMAKING SUPERVISOR by Bhupinder Morales Hospitalist Statement: The Internal Medicine team participates in patient care to directly impact the acute rehabilitationprocess. Daily rounds include discussion of I and Os, avoiding hypotension and hypoglycemia. Daily medication review completed. Ongoing efforts to coordinate care, maintain euvolemia, adequate nutrition, electrolyte management, appropriate BP management, overall stability, and management of co-morbidites individually are being dictated by clinical progress. Documentation partially completed using dictation services and EMR. Please excuse any typographicalerrors that may have occurred. Reggie Johnson MD MMAKING SUPERVISOR * Kezia Flores RN - 03/29/2021 7:27 AM CST A&Ox4 Pain: frequent headache, controlled with Tylenol :clemons GI:bowel routine, BM 03/28 Skin:surgical sites show no signs of infection Patient experienced routine day during this 12-hour shift of this nurse. Exhibiting baseline functioning, activity, & interaction with nursing. Medication administration as documented in MAR. Patient has had no falls at this time and is fall risk level/color red Interventions in Place: [x] Bed Alarm [] Clip Chair Alarm [x] Call Light within reach, return demo by patient completed [] Handoff patient when returning him/her to room [x] Wheelchair/Walker out of reach [] Low Bed [] Mats in Place [x] Fall Risk Magnet on Door [x] Fall Risk Magnet on Schedule Board [x] Fall Risk Armband on Patient [] Sitter [] Other If patient is red fall risk, patient will not be left alone in bathroom. Kezia Flores RN MMAKING SUPERVISOR * Wanda Cazares RN - 03/28/2021 6:19 PM CST Patient experienced routine day during this 12 hour shift of this nurse. Exhibiting baseline functioning, activity, & interaction with nursing. Receiving skilled therapies as ordered. Meals &fluids offered as ordered with I & Os documented in flowsheet. Medication administration as documented in MAR. Any noted exceptions to above statement: Pt unable to void. Clemons catheter inserted. Patient has had no falls at this time and is fall risk level/color Red Interventions in Place: [x] Bed Alarm [] Clip Chair Alarm [x] Call Light within reach, return demo by patient completed [] Handoff patient when returning him/her to room [] Wheelchair/Walker out of reach [] Low Bed [] Mats in Place [x] Fall Risk Magnet on Door [x] Fall Risk Magnet on Schedule Board [x] Fall Risk Armband on Patient [] Sitter [] Other If patient is red fall risk: [x] Patient will not be left alone in bathroom [x] Self-Releasing Belt (a one time order is required) [] Patient demonstrated ability to release wheelchair alarmed seatbelt. [] Observation Room Patient Education on Medications Education provided Re: Vick Siegel This education was provided to the patient Name of medication(s): all medication administered The education included the following: How to identify their medication, Administering their medication, Understanding the side effects oftheir medication Wanda Cazares RN MMAKING SUPERVISOR * Everett Wells, DIRECTOR EHS - 03/28/2021 5:52 PM CST [facility] Assess and Treat Worksheet and Note Admitting Diagnosis/Pulmonary History: Debility Home Regimen: none Home Oxygen/CPAP/BiPap: no Please Call Respiratory therapy at [phone] if you have any questions or a change in patient conditions. # Date Nutrition Director Respiratory Orders Comments 1 03/28 AB No respiratory needs at this time. 2 3 4 5 6 7 Airway Clearance CXR # WC UC MW BH6 MDI AI date CXR comments A I C Dx P 1 2 3 4 5 6 7 Bronchodilator Therapy # BS RR WOB O2 PH SH PEFR% (for asthma) Score Class 1 0 0 0 0 0 1 1 0 2 3 4 5 6 7 Post Discharge Education Plan Pt response: Referrals [id number] - Referral to Smoke Cessation [id number] - Referral to Pulmonary Rehab General Ed [id number] - [place] Smoking Cessation [id number] - [place] Nebulizer Ed [id number] - [place] MDI Ed [id number] - [place] DPI Ed [id number] - [place] Spiriva HandiHaler Ed Disease Ed [id number] - [place] Pneumonia Ed [id number] - [place] Asthma Ed [id number] - [place] COPD Ed CXR A = Atelectasis per Chest X-Ray WC = Weak Cough CXR I = Infiltrates per Chest X-Ray UC = Pt gets up in chair during the day CXR C = Consolidation per Chest X-Ray MW = Muscular Weakness Dx P = Pneumonia on Hospital Problem list BH6 = 6 sec breath hold on MDI technique Score PH = Score per Pulmonary History SD = MDI independent Score WOB = Score per Work of Breathing AI = Acapella independent Score RR = Score per Respiratory Rate Score O2 = Score per Oxygen requirement Score BS = Score per Breathsounds Score SH = Score per Smoking History MMAKING SUPERVISOR * Everett Wells RCP - 03/28/2021 5:52 PM CST Images from the original note were not included. ?Respiratory Therapy Assess and Treat Protocol- [facility] ORDERS ARE ENTERED ???PER PROTOCOL?? Enter the protocol in the patient???s electronic health record using [employer]: .rtassessandtreatprotocol Respiratory Therapy orders: 1. Requires a written order for Assess and Treat Protocol (RT41) or IP Consult to Respiratory Therapy (CON21) by the physician or the physician space buyer. 2. Oxygen desaturation studies (walk studies) must be ordered by the physician unless the IP Consult for Respiratory Therapy includes a statement requesting a walk study if necessary 3. Bronchodilators will be ordered based on classifications CLASSIFICATION *COPD patients may use Atrovent *Asthma patients in Exacerbation may use Atrovent CLASS/SCORE FREQUENCY MDI AEROSOL HOME THERAPY Class 0/ 0-4 *If patient conditions worsens then reassess no therapy indicated Home Therapy orders can be adhered to as long as the severity score does not call for more therapy Class 1/ 5-8 *Reassess in 24 hrs. *Reassess in 96 hours hrs. after initial assessment *If pt. requests > 3 txs in 24 hours or condition worsens, then reassess. q6 PRN 2 puffs Albuterol 2.5mg Albuterol Class 2/-12 *Reassess in 24 hrs * Reassess in 96 hrs after initial assessment. *If patient condition worsens then reassess q6 or QID and q6 PRN 2puffs Albuterol 2.5mg Albuterol Class 3/-18 *Reassess in 24 hrs * Reassess in 96 hrs after initial assessment. *If patient condition worsens then reassess q4 and q4 PRN 2 puffs Albuterol 2.5 Mg Albuterol Class /- *Reassess in 24 hrs * Reassess in 96 hrs after initial assessment. *If patient condition worsens then reassess CONSULT PHYSICIAN for Escalation of Care Mode of Delivery The mode of medication delivery is determined by patient ability or patient request for a specificdelivery device and ordered as MDI or Nebulizer. The method of delivery may be changed at any time at the discretion of the Respiratory Therapist based on patient need. The method of delivery is not based on the patient???s Classification Metered Dose Inhaler (MDI) is administered when: High Flow Nebulizer (HFN) is administered when: a. Medication is available in an MDI a. Medication is not available in MDI b. Patient is alert, cooperative and able to follow commands/instructions b. Patient is unable to perform an MDI c. Patient is able to take a deep breath and perform a minimum of a 6 second breath hold c. Patientis not able to respond to a verbal command d. Patient demonstrates ability to use MDI with spacer effectively d. Patient???s home regimen is with a nebulizer and the Physician does not desire to change to a MDI e. Patient has existing tracheostomy or artificial airway. e. Patient receiving NIPPV and not able to be removed for MDI 4. Lung expansion or Airway clearance may be ordered with a Frequency of therapy will be TID or match the ordered bronchodilator therapy schedule or Q6 PRN if self directed following the algorithm below. Instructions General Purpose: The Assess & Treat protocol is made up of two branches; both branches of the protocol will be applied for every patient assessment performed. 1. Adult Bronchodilation a) To provide assessment of patients receiving inhaled medications. b) To determine appropriate dosage, frequency, and mode of bronchodilator therapy. c) To assure that patients receive at least the equivalent of their respiratory home regimen. d) To identify patients who may require education in understanding how, when, or why they take their respiratory medications. 2. Adult Airway Clearance & Lung Expansion a) To provide assessment of patients in need of airway clearance or lung expansion therapy. b) To provide various adjuncts to aid in mobilization of secretions and to treat atelectasis. c) To provide encouragement and aid in patient???s performance of deep breathing exercises. d) To guide the Respiratory Therapist through an algorithm that determines the best modality for that patient. In addition, each patient ordered into the Assess and Treat Protocol will be evaluated for patient education needs and oxygen desaturation evaluations (walk studies) that ideally need to be met priorto discharge Policy: 1. Requires a written order for Assess and Treat Protocol (RT41) or IP Consult to Respiratory Therapy (CON21) by the physician or the physician space buyer. 2. Only licensed Respiratory Therapists will be permitted to assess patients using the standardizedRespiratory Assessment for the Assess & Treat Protocol. 3. A copy of the protocol will be placed in the electronic medical record. 4. Respiratory Therapists are required to use the Assess & Treat Protocol flowsheet and worksheets to provide appropriate communication between health care providers. An assessment note will alsobe placed in the medical record outlining the encounter and treatment plan. 5. Changes in mode, frequency, or dosage will be communicated to all appropriate personnel. 6. The RT Assess and Treat Protocol should be ordered on all patients who received mechanical ventilation and are ready for transfer out of the ICU setting. CVICU patients will be enrolled after Extubation even if they are still in the CVICU. 7. The Assess and Treat Protocol will allow for patients to continue home regimen medications as listed in their INFORMATION AND REFERRAL DIRECTOR medication list as appropriate. 8. Patients in [facility] and any other 23 hour observation unit who receive orders for inhaled medications via MDI will be changed to the liquid/ nebulizer form of the medication (as available) during their stay by the Respiratory Therapist per protocol. 9. Oxygen desaturation studies (walk studies) must be ordered by the physician unless the IP Consult for Respiratory Therapy includes a statement requesting a walk study if necessary. To meet Medicare requirements, walk studies must be performed within 48 hours of discharge. Walk studies are not indicated for patients transitioning to a shelter facility, rehabilitation facility, or who have not required oxygen since admission unless otherwise specified by the physician. ASSESS AND TREAT PROTOCOL-ADULT BRONCHODILATION PROCEDURE A. Indications: 1. Bronchospasm/wheezing (Reactive Airway Disease, Asthma, Emphysema, Chronic Bronchitis, Bronchiolitis) 2. Current Home Bronchodilator usage including short-acting, long-acting, inhaled corticosteroid, anticholinergic, and combination respiratory medications. 3. Other indications stated in the [employer]???s Clinical Practice Guidelines, GOLD COPD Guidelines, and NHLBI Asthma Guidelines. B. Precautions: N/A C. Implementation: 1) Scoring the Patient The Respiratory Therapist will evaluate and score the patient???s respiratory status prior to medication delivery using the protocol???s scoring worksheet (shown below). All patient assessment parameters listed below as ???Items?? are to be evaluated. Determine total score (???Findings?? ) based on total points earned from each respiratory item assessed. CLINICAL FINDING 0 1 2 3 4 POINTS BREATH SOUNDS Clear Diminished unilaterally Diminished bilaterally &/or crackles Absent unilaterally &/or wheezes or rhonchi Absent bilaterally, severely diminished or severe wheezing RESPIRATORY RATE RR 8-20 RR 21-25 RR26-30 RR 31-35 RR > 35 WORK OF BREATHING Regular pattern (NO Distress) Dyspnea on exertion, irregular RR pattern Increased at rest Use of Accessory muscles, prolonged expiration, conversational dyspnea Severe shortness of breath, accessory muscle usage, dyspnea at rest O2 REQUIREMENT NO Oxygen 1-3 Liters (FiO2 = 25-35%) 4-6 Liters (FiO2 = 35-50%) FiO2 = 50-90% FiO2 =90-100% PULMONARY HISTORY / STATUS NO History Pneumonia(uncomplicated) History of Pulmonary disease w/ admission for other reason Pulmonary impairment - Acute or chronic Severe Exacerbation Smoking history NO Smoking Past History of Smoking but has quit > 1 year Smoking history < 1 pack a day Smoking history > 1 pack a day Current smoker > 2 packs per day 2) Classifying the Patient Patients are classified based on their admission diagnosis and the severity score determined by theprotocol???s standardized Respiratory Assessment. This mechanism determines their respiratory system status and the severity of symptoms. Based on this classification score the therapist determines the frequency of medication administration as well as how often they are reassessed. CLASSIFICATION *COPD patients may use Atrovent *Asthma patients in Exacerbation may use Atrovent CLASS/SCORE FREQUENCY MDI AEROSOL HOME THERAPY Class 0/ 0-4 *If patient conditions worsens then reassess no therapy indicated Home Therapy orders can be adhered to as long as the severity score does not call for more therapy Class 1/ 5-8 *Reassess in 24 hrs. *Reassess in 96 hours hrs. after initial assessment *If pt. requests > 3 txs in 24 hours or condition worsens, then reassess. q6 PRN 2 puffs Albuterol 2.5mg Albuterol Class /- *Reassess in 24 hrs * Reassess in 96 hrs after initial assessment. *If patient condition worsens then reassess q6 or QID and q6 PRN 2puffs Albuterol 2.5mg Albuterol Class /-18 *Reassess in 24 hrs * Reassess in 96 hrs after initial assessment. *If patient condition worsens then reassess q4 and q4 PRN 2 puffs Albuterol 2.5 Mg Albuterol Class /- *Reassess in 24 hrs * Reassess in 96 hrs after initial assessment. *If patient condition worsens then reassess CONSULT PHYSICIAN for Escalation of Care Asthma Exacerbation patients may have a Peak flow (PEFR), if patient is able, before and after every treatment Therapy effectiveness will be evaluated by pulmonary assessment and predicted/personal best values. For Asthma Exacerbation patients the dosage may be increased to 5 Mg Albuterol or 8 puffs Albuterol if 1st treatment does not improve breath sounds, PEFR, and patient???s subjective reportof symptom relief. a. Patients are reassessed per classification with all assessment parameters and given a new score.An DIRECTOR EHS can reassess as needed to manage the needs of the patient. b. Patients are to be maintained on their home regimen even if their score indicates treatments on a less frequent administration schedule. Patients continuing on Home Regimen will be reassessed after 96 hours and then no further reassessment will occur unless patient condition worsens. The Assess and Treat order may be completed at that time if the patient is being managed by their Substation Operator Conversion. c. Determine Mode of Delivery using chart below. d. All MDI therapy will be taught with a spacing device. 3) Mode of Delivery The mode of medication delivery is determined by patient ability or patient request for a specific delivery device. The method of delivery may be changed at any time at the discretion of the Respiratory Therapist based on patient need. The method of delivery is not based on the patient???s classification. Metered Dose Inhaler (MDI) is administered when: High Flow Nebulizer (HFN) is administered when: a. Medication is available in an MDI a. Medication is not available in MDI b. Patient is alert, cooperative and able to follow commands/instructions b. Patient is unable to perform an MDI c. Patient is able to take a deep breath and perform a minimum of a 6 second breath hold c. Patientis not able to respond to a verbal command d. Patient demonstrates ability to use MDI with spacer effectively d. Patient???s home regimen is with a nebulizer and the Physician does not desire to change to a MDI e. Patient has existing tracheostomy or artificial airway. e. Patient receiving NIPPV and not able to be removed for MDI 4)Considerations a. Review patient???s Prior to Admission (INFORMATION AND REFERRAL DIRECTOR) medication list. The Respiratory Therapist will consider ordering any of the following meds based on the patient???s home regimen: Short and long-actingbronchodilators, inhaled corticosteroids, anticholinergics, and combination respiratory medications. Use of the preferred [facility] formulary equivalent should be ordered per Assess and Treat Protocol for use throughout the patients hospital stay. b. Patients diagnosed with a chronic lung disease, such as COPD or Asthma, will be evaluated for the benefit of a controller medication therapy (long-acting bronchodilators, inhaled corticosteroids, anticholinergics, and combination respiratory medications) if not already on the INFORMATION AND REFERRAL DIRECTOR medication list. The Respiratory Therapist will contact the attending physician if a controller therapy may benefitthe patient. c. Xopenex (Levalbuterol) Orders will be followed as below: i. See Pharmacy Policy, Section: APPROVED THERAPEUTIC INTERCHANGES FOR [facility] Title: Beta Agonists ii. Patients taking home regimen Xopenex will continue with home regimen and at home frequency as long as there is an order from the physician that includes; do not substitute and rationale for need to use levalbuterol. iii. An adverse reaction or hypersensitivity is demonstrated by a 20% increase in heart rate above baseline during or within 10 minutes of administration of albuterol or tremors/shakiness that is noted by the therapist or reported by the patient that resolve with the use of Xopenex. If the patent demonstrates hypersensitivity to Albuterol, Xopenex will be used. d. Patients that score for PRN frequency will be given a PRN treatment with the initial assessment unless the patient refuses the therapy. e. Contact physician at any time for questions about patient???s assessment. i.e. Assessment score is > 16, unable to determine an assessment parameter, home regimen medications not included in protocol, changes in frequency or delivery method for other inhaled medications which do not include Albuterol or Ipratropium. f. A Medical Emergency Team may be considered at any time. D. Relative Contraindications: N/A ASSESS AND TREAT PROTOCOL-ADULT AIRWAY CLEARANCE & LUNG EXPANSION PROCEDURE A: Indications: 1. To aid in the mobilization of retained secretions or for sputum retention not responsive to spontaneous or directed coughing. 2. To treat atelectasis. 3. To optimize delivery of bronchodilators in patients receiving bronchial hygiene therapy. 4. For patients with decreased breath sounds or adventitious sounds suggesting secretions in the airway. 5. For patients with abnormal chest x-ray consistent with atelectasis, mucus plugging, infiltrates,or pneumonia. B. Precautions: N/A C. Implementation: 1. Gather patient???s objective data needed for pulmonary assessment to determine appropriate airway clearance or lung expansion intervention. Pulmonary assessment should include pulmonary history, co-morbidities, oxygen requirement, breath sounds, current chest X-ray (CXR), chest CT, patient???s ab ility to ambulate, the amount, color and quality of sputum being produced, laboratory data, cultures, and any other tests that are being ordered. 2. CXR interpretation terms that require intervention for lung expansion or airway clearance include ???atelectasis?? , ???infiltrate?? , ???consolidation?? , or the suspicion of ???pneumonia?? . 3. Assess patient???s ability to comply with specific optimal respiratory interventions such as: ability to effectively cough, , ability to follow directions, ability to independently perform interventions if applicable, ability to seal a mouthpiece, ability to tolerate specific therapies (such as a vest), and/or patient???s willingness to participate in optimal respiratory plan. 4. Refer to the algorithm below to determine specific respiratory intervention(s) that apply to thepatient. 5. Frequency of therapy will be TID or match the ordered bronchodilator therapy Schedule. Criteria for diagnosis of atelectasis (at least one): ?? Radiological interpretation on chest x-ray. Terms to look for include ???infiltrates?? , ???consolidation?? , or ???atelectasis?? . ?? High oxygen requirement. (FIO2 > .50 or flow > 10LPM per HFNC). ?? Absent breath sounds over affected area. ?? If patient is ambulatory, instruct patient in cough and deep breathing, and encourage ambulation. ?? If patient is not ambulatory, use PEP device with or without mask for lung recruitment. Criteria for diagnosis of Pneumonia or for CXR/CT with terms ???infiltrates?? , or ???consolidation?? : ?? Breath sounds that are rhonchi (coarse) that do not clear with cough. ?? If patient has effective cough and is ambulatory, instruct patient in deep breathing and coughing. ?? If patient has effective cough but needs assistance to mobilize sputum, consider IPV, vest or vibratory PEP therapy. ?? If patient has a weak or ineffective cough, consider IPV, vest, or handheld mucous clearance device. ?? If patient has muscular weakness, use Cough Assist and /or Quad Cough. Quad cough will be given on a PRN frequency, and may be used in conjunction with Cough Assist. ?? If patient is unable to achieve a therapeutic benefit of sputum mobilization from these methods due to the patient???s inability to participate in care, nasal tracheal suctioning may be ordered. Also consider ordering a nasal trumpet to protect nasal passages if frequent suctioning is anticipated. ?? Frequency of therapy will be TID or match the ordered bronchodilator therapy schedule. ?? Therapy will be a minimum TID frequency for 24 hours unless patient is able to follow directionswithout coaching, demonstrates appropriate technique, and will use the device independently, if applicable. Handheld mucous clearance device, oscillatory PEP device will be ordered at a Q6 PRN frequency for patients that demonstrate both optimal technique, and ability for independent use. ?? If there is no patient improvement, or patient does not tolerate chosen modality, choose anothermodality in the arm of the algorithm and reassess daily. After 48 hours of second modality and no patient improvement, consult the Physician. Criteria for evaluation of strong cough: ?? Ability to take an adequate deep breath as defined above followed by ability to close glottis and produce an audible cough Assessment of Outcome: ?? Change in sputum production; improved ease of clearing secretion, increased volume of secretionsduring and after treatments. ?? Change in breath sounds - with effective therapy, breath sounds may clear or the movement of secretions into the larger airways may cause a change in breath sounds. Note an effect that coughing may have had on the breath sounds ?? Patient subjective response to therapy. ?? Change in chest x-ray - resolution or improvement of atelectasis and localized infiltrates may be slow or dramatic ; D. Relative Contraindications: The following should be carefully evaluated and the patient monitored during therapy. 1. Patients unable to tolerate the increased work of breathing during procedures. Increased work ofbreathing may lead to hypoventilation and hypercarbia. 2. Intracranial pressure (ICP) > 20 mmHg. may increase during therapy 3. Hemodynamic instability may result in further cardiovascular compromise secondary to potential decreased venous return. 4. Recent facial, oral, and skull surgery or trauma. 5. Acute sinusitis. 6. Epistaxis. 7. Esophageal surgery (positive pressure not allowed, consult physician for vest therapy). 8. Bariatric surgery (positive pressure not allowed, consult physician for vest therapy.) 9. Hemoptysis. 10. Nausea and/or air swallowing, with increased potential of vomiting and aspiration. 11. Known or suspected tympanic membrane rupture or other middle ear pathology. 12. Untreated pneumothorax, flail chest, pulmonary barotraumas. Initiating Department(s): Respiratory Date: 12/09/2008 Department(s) Reviewed: 05/2011, 10/2011, 08/23, 02/23, 06/2015; 07/2016;06/2017 Revised: 05/2011, 10/2011, 08/23, 02/23; 07/2016 Approved by: Medical Executive Committee, Nursing Leadership, Pharmacy & Therapeutics CommitteeDate: 06/2017 MMAKING SUPERVISOR * Sarah Navarro RN - 03/28/2021 3:17 AM CST Elopement Risk Assessment/Re-Assessment Ms. Vick Siegel is a 65 y.o. female currently in who was admitted 03/27/2021 10:45 PM and will be evaluated for elopement risk. (Enter 1 if they meet the criteria) Yes Elopement Risk Factors 0 If any of these questions are answered YES, the patient is a high risk automatically: 1. A. History of past elopements? B. The patient is dangerous to self or others? C. Patient wanders including risky behaviors such as trying to open doors? 0 2. Patient has a brain injury, dementia, depression, or mental illness 0 3. Patient experiences delusions, anxiety or confusion 0 4. Patient moves about freely and independently with or without devices such as walker, wheelchair, etc. 0 5. Patient has impulsive behaviors 0 6. Patient says that they want to leave, to go home, etc. 0 7. Patient lingers near doors or exits 0 8. Current or history of substance abuse 0 9. Patient has had a recent loss or personal tragedy Nursing Judgement Nursing may use professional judgement to escalate a patients risk level. Low Risk Consideration 0 - 5 Risk Factors Identified Continue to monitor Moderate Risk Consideration 6 -7 Risk Factors Identified Continue to monitor, consider observation room. Notify physician if change in condition. High Risk Consideration 8 - 9 Risk Factors Identified Continue to monitor, consider observation room or close observation by staff to monitor for elopement behaviors/indicators. Consider limited egress unit. Notify physician if change in condition. Obtain Psychology Consult. ?? Based on my evaluation Ms. Vick Siegel elopement risk is low ?? High Risk patients will be re-evaluated weekly. ?? IMPORTANT: Nurses to notify the Charge Nurse of patients with a High Risk Level for follow up. For Scores of 6 - 9 see Care Plan Sarah Navarro RN 03/28/2021 3:17 AM MMAKING SUPERVISOR * Sarah Navarro RN - 03/28/2021 2:57 AM CST ?UNDRESS AND ASSESS FOR ALL ADMISSIONS? Remove all existing dressings and assess all wounds upon admission (unless instructed by physician). Undress and Assess performed by: Sarah RN bedside Nurse and coworker Violet MARTE 1. Patient does have skin breakdown. no ?? If yes ? Wound care consult was initiated yes ? Description of wound location and appearance: ? LDA added for any open areas and for non-blanching pink/red or purple areas? no please note, heels, ankles, knees, hips, sacrum, coccyx, ischium, gluteal, occiput, spine and all skin folds are high risk for skin breakdown and consult wound care services 2. Was wound photographed: yes 3. Was the Skin Care Prevention: Pressure Injury Pathway initiated and appropriate interventions selected? yes i.e. protective foams, turn patient q 2 h, elevate heels etc. 4. Was the Skin Care Treatment: Pressure Injury/Lower Extremity Ulcer Pathway initiated, and appropriate interventions selected? yes (i.e. cleanse and apply silicone border dressing to skin tears, cleanse and apply antifungal to affected skin folds and apply soft linen or Interdry between folds etc.). 5. Is a specialty support surface utilized? no ie; ROHO overlay for mattress or low air loss mattress: i.e. impaired mobility, bariatric, malnourished, existing pressure injury. 6. Is the patient a paraplegic/quadriplegic? no If so, is spine stable? If spine is stable, place on specialty surface: ie; ROHO overlay for mattress or low air loss mattress. If unstable spine or new spinal injury, consult physician. 7. Is a medical biller/coder in place? no If yes, remove device/brace/splint to check skin underneath, obtain provider order if necessary. 8. Does the patient have a wound VAC (negative pressure wound therapy)? no If yes, please consult wound care services and follow facility process. 9. Does the patient have an ostomy? no If yes, please consult wound care services. MMAKING SUPERVISOR * Amanda Varela, PHARMACIST - 03/27/2021 2:11 PM CST Rehab Admission Flonase Medication Reconciliation: The following meds have been discontinued due to the OTC/Nutraceutical Policy approved by P&T:? Flonase: 2 sprays in each nostril daily ? ? Should the doctor feel this is needed following patient evaluation, they may elect to reorder. MMAKING SUPERVISOR documented in this encounter H&P Notes * Reggie Johnson MD - 03/28/2021 9:16 AM CST Images from the original note were not included. Internal Medicine/Rehabilitation Service Patient: Vick Siegel Date of : 1955 Admission Date: (03/27/2021) Vitals With Comments 03/28/2021 0507 03/27/2021 2307 BP: 121/72 148/81 Pulse: 83 83 Resp: 18 18 Temp: 98.6 ??F (37 ??C) 98.1 ??F (36.7 ??C) Temp src: Oral Oral SpO2: 94 % 94 % DIET GENERAL Effective Now Full Code Timeline (including subjective): 03/28/21- Initiate rehab. Full medication reconciliation has occurred. Meds, labs, and vitals reviewed. VSS. 03/27/2021 - [facility] - (Admission Data below) Assessment and Plan: Present on Admission: Debility-Rehab ??? Brown-Sequard syndrome- Flexeril, Gabapentin, Zanaflex ??? Neck pain ??? Cervical spondylosis with radiculopathy ??? Cord compression ??? HTN (hypertension) ??? GERD (gastroesophageal reflux disease) ??? Arthritis ??? Hyponatremia ??? Urinary retention ??? Neurological deficit present DVT PRX: Enoxaparin, SCDS Electrolyte derangement-Bind and Replenish Anemia-Follow H/H. Transfuse when clinically indicated Pain Control- titration throughout acute inpatient rehab process Nausea-Zofran prn Constipation-Bowel Regimen, follow output daily Polypharmacy-Follow. Medications fully reconciled Vitamin deficiency-Supplement Nursing Instructions: Incentive spirometry, I/O's, Vitals every 8 hours, Nutrition and ADLs Record Review: moderate Old medical records, labs, preadmission screening, previous radiology studies. Nutritional support and Blood sugar management - encourage adequate diet, caloric intake, fluid balance Avoid hypoglycemia Medication Profile: Allergies Allergen Reactions ??? Codeine Nausea and Vomiting ??? Oxycodone Nausea and Vomiting Scheduled Medication Profile: Facility-Administered Medications as of 03/28/2021 Medication Dose Frequency Provider Last Rate Last Admin ??? gabapentin (NEURONTIN) capsule 200 mg 200 mg every 8 hours Yuliet Gomez, FEI 200 mg at 03/28/21 0524 ??? docusate sodium (COLACE) capsule 100 mg 100 mg BID Yuliet Gomez NP 100 mg at 03/28/21 0902 ??? pantoprazole (PROTONIX) tablet 40 mg 40 mg daily BEFORE breakfast Yuliet Gomez NP 40 mg at 03/28/21 0525 ??? tiZANidine (ZANAFLEX) tablet 4 mg 4 mg every 8 hours Yuliet Gomez NP 4 mg at 03/28/21 0524 ??? sodium chloride tablet 2 Gram 2 Gram every 8 hours Yuliet Gomez NP 2 Gram at 03/28/21 0524 ??? polyethylene glycol (MIRALAX) packet 17 Gram 17 Gram daily Yuliet Gomez NP 17 Gram at 03/28/21 0903 ??? midodrine (PROAMATINE) tablet 15 mg 15 mg every 8 hours Yuliet Gomez NP 15 mg at ??? fludrocortisone (FLORINEF) tablet 0.2 mg 0.2 mg daily Yuliet Gomez NP 0.2 mg at 03/28/21 0903 ??? acetaminophen (TYLENOL) tablet 650 mg 650 mg every 6 hours PRN Yuliet Gomez NP 650 mg at 03/28/21 0035 ??? naloxone (NARCAN) 0.4 mg/mL injection 0.1 mg 0.1 mg see admin instructions Yuliet Gomez, FEI ??? ondansetron (ZOFRAN ODT) tablet 4 mg 4 mg every 6 hours PRN Yuliet Gomez, FEI ??? prochlorperazine maleate (COMPAZINE) tablet 10 mg 10 mg every 6 hours PRN Yuliet Gomez, INFRASTRUCTURE ARCHITECT ??? bisacodyL (DULCOLAX) delayed release tablet 5 mg 5 mg daily PRN Yulite Gomez, FEI ??? bisacodyL (DULCOLAX) rectal suppository 10 mg 10 mg daily PRN Yuliet Gomez, INFRASTRUCTURE ARCHITECT ??? calcium as carbonate (TUMS) 500 mg (200 mg elemental) chewable tablet 200 mg 200 mg every 4 hours PRN Yuliet Gomez, INFRASTRUCTURE ARCHITECT ??? enoxaparin (LOVENOX) injection 40 mg 40 mg every 24 hours Yuliet Gomez, INFRASTRUCTURE ARCHITECT Admission Data : CC: Debility/ Brown Sequard Syndrome/ s/p ACDF at C4/5 and C5/6 and Posterior decompression/laminectomy at T2-3 HPI: Vick Siegel is a 65 y.o. female who recently has been admitted to [facility] for comprehensive rehabilitation - multiple complex medical issues will impact medical management throughout the acute inpatient rehabilitation process. Pt has a significant medical history including but not limited to arthritis, GERD, and HTN. Pt presented to [facility] on 03/13 with c/o posterior headaches, neck pain, and R arm pain. She reported the pain as aching sharp pressure which has been ongoing for 3 months. She noted it is primarily located at the back of her neck, radiating into her posterior neck and off the R side into her shoulder and deltoid. Pt also reported numbness in 1st-3rd fingers on theright when sleeping, as well as intermittent sensation of both feet. Cervical MRI showed disc osteophyte at C4-5 on the right side causing severe neural foraminal stenosis as well as significant discbulge osteophyte on the left at C5-6, as well as mild cord compression at C4-5. There was also large disc herniation at T8 2-3 causing cord compression and T2 signal increase. Pt brought to OR and und erwent ACDF at C4/5 and C5/6 as well as posterior decompression/laminectomy at T2-[address] Patton. Pt tolerated procedure well. MRI and CT showed large calcified disc herniation at T2-3 unchanged, overall edema in cord at T2-3 slightly smaller than preop but seems brighter, correlating with BrownSequard syndrome. Myelogram on 03/17 did not show any significant residual or persistent cord compression. Pt experienced good return of function on right and some return of function on left. On Lovenox for dvt prx, can be fully AC. Pt began working with and tolerating therapy and has been deemed medically safe and appropriate for comprehensive rehab. PMR MD to have formal referral placed. Past Medical History: Diagnosis Date ??? Arthritis ??? GERD (gastroesophageal reflux disease) Difficulty taking NSAIDs. ??? HTN (hypertension) ??? Post-operative nausea and vomiting Past Surgical History: Procedure Laterality Date ??? ENDOSCOPY, UPPER GI ??? HX ANTERIOR CERVICAL DISCECTOMY W/ FUSION N/A 03/13/2021 CERVICAL DISCECTOMY FUSION 2 LEVEL ANTERIOR performed by Katherin Patton MD at [facility] OR [facility] ??? HX SECTION x 2 ??? HX COLONOSCOPY ??? HX HYSTERECTOMY ??? HX MENISCECTOMY Right N/A ??? MD FORREST W/O FACETEC FORAMOT/[facility] 04/13 VRT SEG, THORACIC N/A 03/13/2021 THORACIC LAMINECTOMY performed by Katherin Patton MD at [facility] OR [facility] Family History Problem Relation Name Age of Onset ??? Lung Cancer Father ??? Kidney Cancer Father ??? Hypertension Father ??? Other Father Tobacco Use ??? Cervical Cancer Mother ??? Hypertension Mother ??? Other Mother Tobacco Use ??? Breast Cancer Sister ??? Hypertension Sister ??? Hypertension Brother ??? Other Brother Tobacco Use ??? Stroke Maternal Grandmother ??? Other Maternal Grandfather Tobacco Use ??? Other Paternal Grandmother Tobacco Use ??? Lung Cancer Paternal Grandfather ??? Other Paternal Grandfather Tobacco Use ??? Breast Cancer Other Aunt Social History Tobacco Use ??? Smoking status: Former Smoker Packs/day: 0.50 Years: 5.00 Pack years: 2.50 Types: Cigarettes Quit date: 1980 Years since quittin.9 ??? Smokeless tobacco: Never Used Vaping Use ??? Vaping Use: Never used Substance Use Topics ??? Alcohol use: Never ??? Drug use: Never reports that she quit smoking about 41 years ago. Her smoking use included cigarettes. She has a 2.50 pack-year smoking history. She has never used smokeless tobacco. She reports that she does not drink alcohol and does not use drugs. Review of Systems: No new fever or chills, worsening cough or colds, chest pain No new abdominal pain, heat or cold intolerance weakness Objective Data: Vitals With Comments 03/28/2021 0507 03/27/2021 2307 BP: 121/72 148/81 Pulse: 83 83 Resp: 18 18 Temp: 98.6 ??F (37 ??C) 98.1 ??F (36.7 ??C) Temp src: Oral Oral SpO2: 94 % 94 % No intake/output data recorded. General alert, awake, no cardiopulmonary distress, weakness Lungs Decreased breath sounds at bases- Heart regular rate and rhythm Abdomen soft, non-tender, with bowel sounds Extremities pulses noted, no cyanosis CBC result (most recent): Lab Results Component Value Date/Time WBC 5.8 03/27/2021 10:07 AM HGB 9.9 (L) 03/27/2021 10:07 AM HGBPOC 11.5 (L) 03/13/2021 02:58 PM HCT 31.9 (L) 03/27/2021 10:07 AM PLT 202 03/27/2021 10:07 AM MCV 94.7 03/27/2021 10:07 AM BMP result (most recent): Lab Results Component Value Date/Time NA 142 03/27/2021 10:07 AM K 3.8 03/27/2021 10:07 AM CL 108 (H) 03/27/2021 10:07 AM CO2 23 03/27/2021 10:07 AM CA 8.5 (L) 03/27/2021 10:07 AM BUN 26 (H) 03/27/2021 10:07 AM CREAT 0.73 03/27/2021 10:07 AM GLUCOSE 122 (H) 03/27/2021 10:07 AM ANIONGAP 11 03/27/2021 10:07 AM CMP result (most recent): Lab Results Component Value Date/Time NA 142 03/27/2021 10:07 AM K 3.8 03/27/2021 10:07 AM CL 108 (H) 03/27/2021 10:07 AM CO2 23 03/27/2021 10:07 AM CA 8.5 (L) 03/27/2021 10:07 AM BUN 26 (H) 03/27/2021 10:07 AM CREAT 0.73 03/27/2021 10:07 AM GLUCOSE 122 (H) 03/27/2021 10:07 AM TOTALPROTEIN 6.2 (L) 03/14/2021 02:03 AM ALBUMIN 3.3 (L) 03/22/2021 05:53 AM BILITOTAL <0.2 (L) 03/14/2021 02:03 AM ALKPHOS 67 03/14/2021 02:03 AM AST 19 03/14/2021 02:03 AM ALT 13 03/14/2021 02:03 AM ANIONGAP 11 03/27/2021 10:07 AM HEPATIC function panel result (most recent): Lab Results Component Value Date/Time ALT 13 03/14/2021 02:03 AM AST 19 03/14/2021 02:03 AM ALKPHOS 67 03/14/2021 02:03 AM Hemoglobin A1C result (most recent): No results found for: HGBA1C, [id number] LIPID panel result (most recent): No results found for: CHOLTOT, HDL, LDLCALC, LDLDIRECT, TRIGLYCERIDE UA results do not (most recent): Lab Results Component Value Date/Time PHUA 6.0 02/25/2021 01:52 PM SGUR 1.009 02/25/2021 01:52 PM URINELEUKOC Negative 02/25/2021 01:52 PM NITRITEUA Negative 02/25/2021 01:52 PM KETONEURINE Negative 02/25/2021 01:52 PM PROTEINUA Negative 02/25/2021 01:52 PM GLUUA Negative 02/25/2021 01:52 PM BLOODUA Negative 02/25/2021 01:52 PM Results for orders placed or performed during the hospital encounter of 03/13/21 EKG 12-LEAD Narrative Stationary ECG Study [facility] Test Date: 03/17/2021 7:05 PM Pat Name: VICK SIEGEL Department: 45 Room: [facility] Gender: F Boilermaker Fitter: harlan : 1955 Requested By: KATHERIN Lindsay Order Number: [id number] Reading MD: Bhupinder Morales Measurements Intervals [place] Rate: 63 P: 53 MD: 165 QRS: 15 QRSD: 96 T: 22 QT: 433 QTc: 444 Interpretive Statements Sinus rhythm Ventricular premature complex Left atrial enlargement Low voltage, precordial leads PRWP Electronically Signed On 03-18-2021 8:08:07 BROOMMAKING SUPERVISOR by Bhupinder Morales Hospitalist Statement: The Internal Medicine team participates in patient care to directly impact the acute rehabilitationprocess. Daily rounds include discussion of I and Os, avoiding hypotension and hypoglycemia. Daily medication review completed. Ongoing efforts to coordinate care, maintain euvolemia, adequate nutrition, electrolyte management, appropriate BP management, overall stability, and management of co-morbidites individually are being dictated by clinical progress. Documentation partially completed using dictation services and EMR. Please excuse any typographicalerrors that may have occurred. 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 The patient was referred for psychological consultation for diagnostic workup, treatment recommendations, and psychotherapy services as needed. The patient is facing significant adjustment issues at this time. I was asked to assess her current mental health needs and to provide recommendations and supportive care as warranted. METHODS OF ASSESSMENT: The patient was assessed through clinical interview, chart review, and discussion of case with rehab staff. The patient's son, Juwan Siegel and his were present during the interview process. HISTORY OF PRESENT ILLNESS: The patient presented to [facility] on March 13 for posterior headaches, right neckand right arm pain. The onset of symptoms was 3 months prior. The patient was found to have cervical spondylosis with disk osteophytes causing severe right C4-5 NFS and stenosis at C5-6. Also, there was a disk herniation at T2-3 with severe stenosis/cord compression. She was taken to surgery on heradmission day for elective ACDF at C4-5 and C5-6 and posterior decompression/laminectomy at T2 through 3. The day after her surgery, she reported developing left leg weakness and sensation deficits. As per Neurosurgery in the PACU, her bilateral lower extremity right leg was 1/5 to 2/5 and her leftleg showed flicker of movement. Sensation decreased in the right lower extremity compared to the left lower extremity. 70 mL of CSF was drained. It was suspected that the patient had suffered spinal cord damage secondary to Brown-Sequard syndrome. The patient underwent a stat MRI and CT. There was no fluid collection compressing the cord, but increased cord signal at T2-3 with unchanged size of herniation. The patient was transferred to ICU for further management required low-dose of levo to maintain MEP goals. She was also started on IV steroids with postop myelogram showing no fluid collection, but increased cord signal at T2/3 with unchanged size of herniation. By March 15, she showed improved strength and sensation, especially in the right lower extremity and continued to show improvement over the following days. Repeat myelogram on 03/17, which showed post displacement of the spinal canal with mild ventral indentation on the thecal sac on the left at T7-T8 disk herniation and spurs encroaching on the thecal sac. She had some hypotension with therapy while in the ICU, but levowas able to be weaned by March 25. IV steroids were started on 03/21, but tapered off by Neurosurgery. She was transferred to Neurology on 03/26 with motor strength in bilateral upper extremities,documented to be 5/5, right lower extremity 3/5 to 4/5 in left lower extremity 1/5. Her cervical and thoracic spine incisions were documented to be clean, dry, and intact. The patient's hospital course was also complicated by neurogenic bowel and bladder, mild postop anemia, mild hyponatremia with start of sodium chloride tabs, steroid induced leukocytosis and pain issues. The patient was placed on Lovenox for DVT prophylaxis and can be fully anticoagulated if needed. The patient lives with her pets in a 1-level house with 1-2 steps to enter. She had been fully independent at her baseline without any assistive device. She plans to return to that environment. Givenher functional deficits, she was clearly in need of rehab services. After appropriate stabilization, she was transferred to [facility] on March 27, 2021. PAST MEDICAL/SURGICAL HISTORY: The patient has a history of arthritis, GERD, hypertension, and recent posterior neck/shoulder painresulting in recent surgery. MENTAL HEALTH HISTORY: The patient reports a lifelong pattern of generalized worry. It is unclear how much this pattern ofworry interfered in life, but her children certainly acknowledge that it is present. The patient states that in the past 5 years she went through some very difficult circumstances, but did not seem very open about wanting to discuss those issues in any detail. She indicated that she receives psychotherapy on an outpatient basis. She also recalls use of psychotropics, but could not name them without prompting. She did recall being on Celexa and on Wellbutrin. She also recalls taking trazodone atbedtime as a p.r.n. sleep aid. The patient has no history of suicidal behavior. She has no history of substance abuse. Regarding family history, the patient noted that her mother suffered from depression and anxiety. Her brother, a nephew, and her grandfather all had chemical dependency issues. Of note, her brother 1 month ago of complications associated with his addiction. SOCIAL HISTORY: The patient was born and raised in [place], [place] with both parents present in the home. She had 1 brother now and a sister 9 years her senior. She is the 3rd of 3 children born to her parents. The patient is a high school graduate who completed 1 year of college. 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 The patient was 1 time for 10 years. She hasbeen for over 30 years. She has a daughter and a son. She is a Christianity. BEHAVIOR OBSERVATIONS: The patient is a 65-year-old female who stands 5 feet 3 inches tall and weighs 185 pounds. I met with the patient in her room where she was found resting comfortably in bed with her son [id number] present. The patient was alert and well oriented. She was quite pleasant and graciously agreed to speak with me, but presented with a somewhat guarded affect. Humor was used to deflect away from the issues that are occurring in her life. The patient indicated that she is very stubborn and has a clear plan for her recovery process. The patient noted that she has been crying on a daily basis since her surgery. She finds this quite uncomfortable because she sees it as a sign of weakness. She exhibited no tearfulness or agitation during this interview. She appeared well oriented and did not exhibit any signs of cognitive impairment. There was no agitation. She maintain normal eye contact. EVALUATION FINDINGS: The results of this evaluation raised concerns for the presence of a history of generalized anxietydisorder. Certainly, she is facing pronounced adjustment issues at this time given her mobility deficits. The patient finds her need for support from others to be very difficult to tolerate. She admits to daily crying spells. She also admits to reasonably significant levels of anxiety and worry. She denies any problems with appetite. She denies needing sleep aid, but also indicates that she is getting minimal amounts of sleep recently noting that she only got about 2 hours of sleep last night. She denies problems with appetite. Her energy is limited and she admits to feeling exhausted. She denies any cognitive deficits. She denies any suicidal ideation, plan, or intent. There is no evidenceof any psychosis or formal thought disorder. Insight and judgment appear intact. The patient states that her pain issues are reasonably managed. She is very hesitant to utilize anynarcotic medication due to the fact that her brother recently from addictions to pain medications. She is also very hesitant about any psychotropic medications. She simply states that she can handle it. DIAGNOSTIC IMPRESSIONS: 1. Rule out generalized anxiety disorder. 2. Adjustment disorder with anxiety and depression. PLAN/RECOMMENDATIONS: I will follow up with the patient to provide further supportive services during her rehab stay. Opportunity for healthy catharsis and gentle application of cognitive interventions will be provided toassist with coping process. Her mood will be monitored and any significant change in her mood status will be discussed with her attending treatment team. Thank you for allowing me to assist in evaluation and care of your patient. Total service time is 80 minutes. Katherin Li, PhD MMODL D: [id number] V: [id number] cc: MMAKING SUPERVISOR * Katherin Li, PhD - 03/28/2021 7:41 PM CSTAssociated Order(s): IP CONSULT TO PSYCHOLOGY Consult report dictated. #[id number] MMAKING SUPERVISOR * Be Rangel, DO - 03/28/2021 6:47 AM CSTAssociated Order(s): IP CONSULT TO PHYSICAL MEDICINE REHAB Images from the original note were not included. Rehabilitation Facility PM&R Referral of care from a FACE TO FACE Encounter with patient on 03/28/2021 AND Inpatient Rehabilitation Facility Post Admission Physician Assessment Patient: Vick Siegel Admission Date: 03/27/2021 Reason for Referral: Physiatry oversight Chief Complaint/Rehab Diagnosis: Cord compression Pain in my neck and right arm History of Present Illness: Patient is a 65-year-old female who presented to hospital on 03/13/2021 with posterior headaches, right arm, and neck pain that started approximately 3 months prior. Imaging showed cervical spondylosis and disc osteophytes causing severe right-sided C4-5 neuroforaminal stenosis and stenosis at C5-6 with disc herniation at T2-3 with severe stenosis and cord compression. She underwent C4-5 and C5-6 ACDF and T2-[address] Patton. Postoperatively, she developed bilateral lower extremity weakness and left hemibody numbness. Stat imaging showed increased cord signal at T2-3 without fluid collection. She was started on Levophed for blood pressure and IV steroids. She slowly started to improve her strength and movement in her lower extremities. Hospital course also significant for neurogenic bowel and bladder, hyponatremia, steroid-induced leukocytosis, pain. Patient was seen by PT, OT, during the acute hospitalization and was felt to be an appropriate acute rehab candidate. she was transferred to [facility] on 03/27/2021 for participation in a comprehensive rehabilitation program. On admission to rehab she reports slow improvements in her lower extremity sensation and strength. The radicular symptoms in her arm and neck have resolved after surgery. Breathing is okay. She is having issues with bowel and bladder dysfunction. She is now able to feel when she needs to empty her bladder but still cannot void. She does have increased sensation in her perineum which makes catheterizations uncomfortable. She is having a hard time with bowel continence as well that she cannot feel when she needs to have a bowel movement and cannot feel when she is incontinent. Estrada Score: 15 (03/27/21 2300) Last Bowel Movement (mm/dd/yyyy): 03/28/21 (03/28/21 0200) Past Medical History: Diagnosis Date ??? Arthritis ??? GERD (gastroesophageal reflux disease) Difficulty taking NSAIDs. ??? HTN (hypertension) ??? Post-operative nausea and vomiting Past Surgical History: Procedure Laterality Date ??? ENDOSCOPY, UPPER GI ??? HX ANTERIOR CERVICAL DISCECTOMY W/ FUSION N/A 03/13/2021 CERVICAL DISCECTOMY FUSION 2 LEVEL ANTERIOR performed by Katherin Patton MD at [facility] OR [facility] ??? HX SECTION x 2 ??? HX COLONOSCOPY ??? HX HYSTERECTOMY ??? HX MENISCECTOMY Right N/A ??? MD FORREST W/O FACETEC FORAMOT/[facility] 04/13 VRT SEG, THORACIC N/A 03/13/2021 THORACIC LAMINECTOMY performed by Katherin Patton MD at [facility] OR [facility] Family History Problem Relation Name Age of Onset ??? Lung Cancer Father ??? Kidney Cancer Father ??? Hypertension Father ??? Other Father Tobacco Use ??? Cervical Cancer Mother ??? Hypertension Mother ??? Other Mother Tobacco Use ??? Breast Cancer Sister ??? Hypertension Sister ??? Hypertension Brother ??? Other Brother Tobacco Use ??? Stroke Maternal Grandmother ??? Other Maternal Grandfather Tobacco Use ??? Other Paternal Grandmother Tobacco Use ??? Lung Cancer Paternal Grandfather ??? Other Paternal Grandfather Tobacco Use ??? Breast Cancer Other Aunt Social History: Social History Socioeconomic History ??? Marital status: Spouse name: Not on file ??? Number of children: Not on file ??? Years of education: Not on file ??? Highest education level: Not on file Occupational History ??? Not on file Tobacco Use ??? Smoking status: Former Smoker Packs/day: 0.50 Years: 5.00 Pack years: 2.50 Types: Cigarettes Quit date: 1979 Years since quittin.9 ??? Smokeless tobacco: Never Used Vaping Use [...] file Intimate Partner Violence: Not on file Home environment: Lives alone in a 1 level home with 1-2 steps to enter Functional status: Prior to admission she is independent for actives daily living and ambulated without any assistive device. Currently, she is mod assist for bed mobility, max is for supine to sit transfers, min assist for sitting edge of bed, max assist for sit to stand transfers, max is for upper body dressing, mod assist for grooming Allergies: Codeine and Oxycodone Facility-Administered Medications as of 03/28/2021 Medication Dose Frequency Provider Last Rate Last Admin ??? gabapentin (NEURONTIN) capsule 200 mg 200 mg every 8 hours Yuliet Gomez NP 200 mg at 03/28/21 0524 ??? docusate sodium (COLACE) capsule 100 mg 100 mg BID Yuliet Gomez NP ??? pantoprazole (PROTONIX) tablet 40 mg 40 mg daily BEFORE breakfast Yuliet Gomez NP 40 mg at 03/28/21 0525 ??? tiZANidine (ZANAFLEX) tablet 4 mg 4 mg every 8 hours Yuliet Gomez NP 4 mg at 03/28/21 0524 ??? sodium chloride tablet 2 Gram 2 Gram every 8 hours Yuliet Gomez NP 2 Gram at 03/28/21 0524 ??? polyethylene glycol (MIRALAX) packet 17 Gram 17 Gram daily Yuliet Gomez NP ??? midodrine (PROAMATINE) tablet 15 mg 15 mg every 8 hours Yuliet Gomez NP 15 mg at 524 ??? fludrocortisone (FLORINEF) tablet 0.2 mg 0.2 mg daily Yuliet Gomez NP ??? acetaminophen (TYLENOL) tablet 650 mg 650 mg every 6 hours PRN Yuliet Gomez NP 650 mg at 03/28/21 0035 ??? naloxone (NARCAN) 0.4 mg/mL injection 0.1 mg 0.1 mg see admin instructions Yuliet Gomez NP ??? ondansetron (ZOFRAN ODT) tablet 4 mg 4 mg every 6 hours PRN Yuliet Gomez, INFRASTRUCTURE ARCHITECT ??? prochlorperazine maleate (COMPAZINE) tablet 10 mg 10 mg every 6 hours PRN Yuliet Gomez, INFRASTRUCTURE ARCHITECT ??? bisacodyL (DULCOLAX) delayed release tablet 5 mg 5 mg daily PRN Yuliet Gomez, INFRASTRUCTURE ARCHITECT ??? bisacodyL (DULCOLAX) rectal suppository 10 mg 10 mg daily PRN Yuliet Gomez, INFRASTRUCTURE ARCHITECT ??? calcium as carbonate (TUMS) 500 mg (200 mg elemental) chewable tablet 200 mg 200 mg every 4 hours PRN Yuliet Gomez, INFRASTRUCTURE ARCHITECT ??? enoxaparin (LOVENOX) injection 40 mg 40 mg every 24 hours Yuliet Gomez, FEI Current diet is: DIET GENERAL Effective Now Review of Systems: ROS General: No fever, chills,or malaise. Head: No headache. Eyes: No new vision problem. Ears: No new hearing problem. Neck: No dysphagia or coughing after eating. CVS: No chest pain or palpitations. Lungs: No cough or shortness of breath. GI: No nausea, vomiting, diarrhea or constipation. No incontinence. : No dysuria, hematuria or incontinence. Neuro: See HPI Heme: No bleeding tendencies. Psych: No anxiety or depression. No sleep problems. Current medications from acute hospital have been reviewed and will be modified/reordered as appropriate for this rehabilitation admission. See Problem List/Interventions Examination/Laboratory/Imaging Review BP 121/72 (BP Location: Right arm, Patient Position (BP): Supine) Pulse 83 Temp 98.6 ??F (37 ??C) (Oral) Resp 18 SpO2 94% Physical Exam General: No apparent distress, resting comfortably in bed Head: normocephalic, atraumatic Eyes: normal sclera, conjunctiva clear, EOM intact Neck: Supple, symmetrical, trachea midline CVS: RRR, no murmurs Lungs: CTA bilaterally, no wheezing, rhonchi or rales, normal respiratory effort Abdomen: soft, non-distended, normal bowel sounds MSK: Normal muscle bulk. No atrophy. HF KE DF PF R 1 5 4 4 L Tr 1 Tr Tr EF: Elbow flexion, EE: Elbow extension, IO: Finger Abduction, GRP: delivery helper; HF: Hip flexion, KE: Knee extension, DF: dorsiflexion, PF: Plantar flexion EHL: great toe extension, NT: not tested Neuro: CN II-XII grossly intact Reflexes: Patellar reflexes are asymmetric, +1 on the right and +2 on the left. Sensation: Impaired to light touch and unable to differentiate pinprick in her feet, legs, hips, and torso up to her xiphoid process. Psych: cooperative, alert and oriented x 3 Extremities: no peripheral edema Skin: Labs/Imaging: I have reviewed the referring records and labs/imaging. As per HPI Admission Labs: Ordered CBC, BMP, EKG Lab Results Component Value Date/Time WBC 5.8 03/27/2021 10:07 AM HGB 9.9 (L) 03/27/2021 10:07 AM HGBPOC 11.5 (L) 03/13/2021 02:58 PM HCT 31.9 (L) 03/27/2021 10:07 AM PLT 202 03/27/2021 10:07 AM MCV 94.7 03/27/2021 10:07 AM No results found for: IRON, TIBC, FERRITIN Lab Results Component Value Date/Time NA 142 03/27/2021 10:07 AM K 3.8 03/27/2021 10:07 AM CL 108 (H) 03/27/2021 10:07 AM CO2 23 03/27/2021 10:07 AM CA 8.5 (L) 03/27/2021 10:07 AM BUN 26 (H) 03/27/2021 10:07 AM CREAT 0.73 03/27/2021 10:07 AM GLUCOSE 122 (H) 03/27/2021 10:07 AM TOTALPROTEIN 6.2 (L) 03/14/2021 02:03 AM ALBUMIN 3.3 (L) 03/22/2021 05:53 AM BILITOTAL <0.2 (L) 03/14/2021 02:03 AM ALKPHOS 67 03/14/2021 02:03 AM AST 19 03/14/2021 02:03 AM ALT 13 03/14/2021 02:03 AM ANIONGAP 11 03/27/2021 10:07 AM No results found for: TSH, TSHULTRA, THYROIDSTIM, T3, T3FREE, U1HOGEIZ, T4, T4FREE, FT4E, TPO, THROIDAB, THYROIDMI No results found for: HJNRCDNK74 No results found for: UJHO325, VITD25, VHEM78HHX7, KFIV82KTC0, CVYY58DOOY, 25OHVITD No results found for: HGBA1C, YEAN3ESLC Lab Results Component Value Date/Time PHUA 6.0 02/25/2021 01:52 PM SGUR 1.009 02/25/2021 01:52 PM URINELEUKOC Negative 02/25/2021 01:52 PM NITRITEUA Negative 02/25/2021 01:52 PM KETONEURINE Negative 02/25/2021 01:52 PM PROTEINUA Negative 02/25/2021 01:52 PM GLUUA Negative 02/25/2021 01:52 PM BLOODUA Negative 02/25/2021 01:52 PM Plan/Impression: Patient is a 65 y.o. female who underwent C4-6 ACDF and T2-T3 laminectomy on 03/13/[address] 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 -Isolation: None -Precautions: None -Pain: As needed Tylenol. Gabapentin. Tizanidine -Fall prevention: Education and therapies Neurogenic bladder: Intermittent catheterization Neurogenic bowel: Bowel routine with Magic bullet. Colace, MiraLAX Skin/Wound Care: Monitor surgical incision for proper healing Prophylaxis/Prevention: DVT: Lovenox GI: Protonix Medical History/Active Issues: To be managed by primary medicine team Orthostatic hypotension: Midodrine, Florinef Hyponatremia: Salt tabs Internal Medicine has asked me to follow the patient for rehabilitation care including but not limited to coordinating/overseeing therapy, pain management, bowel/bladder control and skin prevention. The Internal medicine team will insure that the patient remains medically stable and care for the above medical issues. I discussed the care with the medicine team today. FEN: DIET GENERAL Effective Now -Replete electrolytes as needed - Continue vitamins/supplements -Periodic labs, monitor trends Disposition: -Anticipated location: Home -ELOS: 28 days -Code Status: Full Code F/U appts: -Huang Alonso MD after discharge from rehab -Dr. Patton -Rehab Assessment/Interventions: Current level of function: See social history above. Barriers to immediate discharge to prior living situation include: ?? above noted new/worsened impairments and their resultant reduction in function from premorbid (as noted above) ?? patient/caregiver lack of knowledge in managing new impairments/medical diagnoses ?? need for new/ongoing medical interventions ?? inaccessible home environment and lack of mobility ?? need for caregiver training ?? need to function at a higher level than current due to no or limited caregiver assistance available ?? lack of access to care in another setting ?? training required with durable medical equipment ?? precautions ?? weight bearing restrictions Rehabilitation Plan and Goals The patient will participate in a comprehensive interdisciplinary rehabilitation program consistingof PT/OT/psychology, 24 hour rehabilitation nursing, to focus on increasing strength, recreation therapy, endurance and ROM as well as to be as functional as possible in ambulation, mobility, transfers, and ADLs. Patient will remain on an oral diet and will remain continent of bowel and bladder upon discharge. The patient will remain medically stable and be closely followed by the internal medicine team. Overall goals for inpatient rehabilitation admission include: ?? Achieve/Maintain Medical Stability ?? Achieve safe and adequate nutrition and hydration ?? Achieve Adequate management of pain ?? Determine need for and assist in obtaining needed Durable Medical Equipment ?? Patient and family education/training ?? Maximize cognition and communication to: Independent ?? Maximize mobility to:Modified [place], Supervision, Stand by Assist and Contact Guard Assist ?? Maximize self care/ADLs to:Modified [place], Supervision, Stand by Assist and Contact GuardAssist Physical Therapy will address generalized strengthening, bed mobility, transfers, standing, balanceand gait training. Physical therapy goals include modified independent with wheelchair propulsion, modified independent with transfers, improve range of motion and strength, and an equipment evaluation. Occupational Therapy will address generalized strengthening, adaptive device training, bathing, toileting, dressing and grooming. Occupational therapy goals include modified independent with all self-care and an equipment evaluation. Rehab nursing will address: ?? Bowel and bladder management ?? Pain management ?? Medication administration ?? Skin monitoring ?? Fall prevention ?? Positioning The goal is a safe discharge Home with relative Anticipated continued treatments after Inpatient Rehabilitation Facility discharge: HH PT/OT ELOS: as above Rehab/Physician goals: See above. Rehab potential: Prognosis to meet stated goals: good Therapy interventions: Therapy intervention should include physical therapy for 1.5 hour(s) a day and occupational therapy for 1.5 hour(s) a day, 5-6 times a week, for the above estimated length of stay. Risks for medical and/or functional complications to patient if NOT admitted to Inpatient Rehabilitation Facility with daily physician management including physical medicine and rehabilitation physician, rehabilitation specialty nursing, multidisciplinary therapy program with access to rehabilitation psychology, orthotics/prosthetics, internal medicine INCLUDE: ?? Immobility leading to DVT/PE ?? Inadequate management of blood pressure ?? Malnutrition and/or dehydration due to insufficient intake of food/fluids orally ?? Pressure sore development or worsening ?? Wound non/impaired healing ?? Urinary tract infection due to incomplete bladder emptying or prolonged catheterization ?? Constipation ?? Hypoxemia ?? Muscle/joint/soft tissue contractures ?? Insufficiently managed musculoskeletal or neuropathic pain ?? Worsened neurologic status due to medications/metabolic reasons/worsened medical disease ?? Not reaching full potential for functional recovery of transfers, ambulation, mobility, self care, communication, cognition due to inadequate or incorrect specialized therapy services Barriers to discharge: Patient apprehension, Caregiver apprehension, Home entry, Bedroom/bathroom accessibility, Limited strength, balance, endurance, Requires caregiver assist and Lives alone I reviewed this plan with patient and they are in agreement to proceed. This post admission physician assessment is in agreement with the preadmission assessment performed. Statement of Medical Necessity: The patient is sufficiently stable to participate in the rehabilitation program. In my professional judgment and rehabilitation experience, the patient meets medical necessity criteria, requires an inpatient stay to manage his/her needs for nursing and medical management (the nursing needs require rehabilitation nursing, the medical needs require supervision by a rehabilitation physician at least three times per week), and requires the interdisciplinary team approach of an intensive inpatient rehabilitation program. The patient can reasonably be expected to part icipate in, and benefit from, the intensive rehabilitation program. Total time spent on this evaluation, examination, ip counsel with patient and/or family/caregivers, determination documentation and initiation of plan of care was more than 50 minutes. Greater than 50% was spent counseling/coordinating care. Time of face to face evaluation and completion of documentation: 03/28/2021 9:47 AM Electronically Signed By: Be Rangel DO Physical Medicine and Rehabilitation [phone] ATTESTATION STATEMENTS Portions of this note were transcribed using [employer] speaking computerized voice recognition without a human social insurance analyst. This report may or may not have been adjusted for typographical, grammatical and syntax errors or malapropisms. MMAKING SUPERVISOR documented in this encounter Miscellaneous Notes * Care Plan - Sarah Navarro RN - 04/16/2021 9:44 PM CST Patient experienced routine day during this 12-hour shift of this nurse. Exhibiting baseline functioning, activity, & interaction with nursing. Receiving skilled therapies as ordered. Meals &fluids offered as ordered with I & Os documented in flowsheet. Medication administration as documented in MAR. Any noted exceptions to above statement: none Head-to-toe re-assessment observations documented in flowsheet. Any noted deviations from baseline observed in head-to-toe assessment: none Any abnormal VS requiring intervention or close monitoring: no Patient Education on Medications Education provided Re: Vick Siegel This education was provided to the patient Name of medication: All scheduled medicine given including pain pill The education included the following: How to identify their medication, Administering their medication, Storage of their medication, Understanding the side effects of their medication Sarah Navarro RN Patient has had no falls at this time and is fall risk level/color Yellow Interventions in Place: [x] Bed Alarm [] Clip Chair Alarm [x] Call Light within reach, return demo by patient completed [] Handoff patient when returning him/her to room [x] Wheelchair/Walker out of reach [] Low Bed [] Mats in Place [x] Fall Risk Magnet on Door [x] Fall Risk Magnet on Schedule Board [x] Fall Risk Armband on Patient [] Sitter [] Other If patient is red fall risk: [x] Patient will not be left alone in bathroom [] Self-Releasing Belt (a one time order is required) [] Patient demonstrated ability to release wheelchair alarmed seatbelt. [] Observation Room Patient refused her rectal suppository, patient said she had good B.M during day time MMAKING SUPERVISOR * Care Plan - Rodney Redding RN - 04/16/2021 12:56 AM CST Care plan is progressing. MMAKING SUPERVISOR * Care Plan - Cindy Martin LPN - 04/15/2021 6:21 AM CST Received bedside report from Molly SANDERS and assumed care of Pt at 1845. Meds given per MAR, VSS. PRNAPAP and tizanidine for c/o neck/head pain with some relief. Bowel routine completed with + soft result. See flowsheet for assessment details. Safety/fall prevention interventions in place, will continue to monitor and report to oncoming nurse. Problem: Pain, Potential/Actual Goal: Verbalizes/displays acceptable comfort level or baseline comfort level Outcome: Variance Patient has had no falls at this time and is fall risk level/color yellow Interventions in Place: [x] Bed Alarm [] Clip Chair Alarm [] Self-Releasing Belt (a one time order is required) [x] Call Light within reach, return demo by patient completed [] Handoff patient when returning him/her to room [x] Wheelchair/Walker out of reach [] Low Bed [] Mats in Place [] Observation Room [x] Fall Risk Magnet on Door [x] Fall Risk Magnet on Schedule Board [x] Fall Risk Armband on Patient [] Sitter [] Other Patient Education on Medications Education provided Re: Vick Siegel This education was provided to the Patient Name of medication: All due meds The education included the following: How to identify their medication, Administering their medication, Storage of their medication, Understanding the side effects of their medication Cindy Martin LPN MMAKING SUPERVISOR * Care Plan - Fox Carver RN - 04/14/2021 3:28 AM CST Problem: Infection Risk/Actual Goal: Infection Risk/Actual: Infection prevention, control, or resolution by discharge Description: Outcome: Variance Problem: Discharge Planning Goal: Identify discharge needs upon admission and through discharge Description: Outcome: Variance Problem: Genitourinary/Renal Goal: Achieve optimal genitourinary and renal function by discharge or maintain baseline function Outcome: Progressing MMAKING SUPERVISOR * Care Plan - Maxwell Russ RN - 04/12/2021 12:09 AM CST Problem: Pain, Potential/Actual Goal: Verbalizes/displays acceptable comfort level or baseline comfort level Description: Outcome: Progressing Problem: Infection Risk/Actual Goal: Infection Risk/Actual: Infection prevention, control, or resolution by discharge Description: Outcome: Progressing Problem: Safety/Fall Goal: Safety/Fall: Absence of fall, injury, harm during hospitalization Description: Outcome: Progressing Problem: Discharge Planning Goal: Identify discharge needs upon admission and through discharge Description: Outcome: Progressing Problem: Nutrition/Endocrine Goal: Achieve optimal nutrition and fluid status to meet metabolic needs throughout hospitalization Outcome: Progressing Problem: Skin Goal: Maintain skin integrity and/or promote wound healing by discharge Outcome: Progressing Problem: Cognitive/Perceptual/Neuro Goal: Achieve optimal cognitive/perceptual/neurological function by discharge or maintain baseline function Outcome: Progressing Problem: Mobility Goal: Absence of/Reduce Fall Risk r/t Mobility Deficits Description: Patient is a fall risk because of mobility deficits. A patient with mobility deficits is automatically at high risk for falls. Potential Interventions: 1. Schedule patient toileting to avoid emergency trips to the bathroom 2. If available, use floor mats next to bed or in front of chair when up 3. If applicable, remove floor mats when getting patient up and replace when leaving patient 4. Assistive devices as required, educate patient on correct use of device (walkers, shower chairs,lift equipment, etc.) 5. Exit bed on patient's strongest side 6. Gait belt easily accessible 7. Activate bed or chair alarm while in bed or up in chair 8. Get order for PT consult if appropriate 9. Patient requires 2 assist - bedpan and bed bath if 2 staff not available, bedside commode if 2 staff are available entire time 10. Slow progressive position changes if patient experiencing dizziness Outcome: Progressing Problem: Medications Goal: Absence of/Reduce Fall Risk r/t Medications Description: Patient is a fall risk because of medications (i.e. - BP meds, CV/LEAD PERSON meds, seizure meds, diuretics, pain meds, psych meds, current chemotherapy). Potential Interventions: 1. Orthostatic VS q day; educate to dangle before rising 2. Educate patient and family on how medications increase patient's fall risk (may make dizzy, lower BP, etc) 3. Do first dose education with all med/dosage changes. Document education 4.Reassess fall risk whenever a medication is changed/added (sleeping pill, pain med, BP med dose adjustment, etc) 5. Activate bed or chair alarm while in bed or up in chair 6. Limit combination of PRN meds whenever possible (i.e. - space out narcs and benzos) 7. Schedule frequent toileting for patients on diuretic to help prevent emergencies 8. Consult pharmacy to review meds and make recommendations (determine best timing, possible dosingadjustments, or identify other education that might be appropriate for patient) 9. Use floor mats next to bed and in front of chair when patient left unattended 10.Do not leave patient unattended while toileting or showering 11.Use appropriate assistive equipment (walker, shower chair, etc) 12. Include information on high risk medications, last doses, and patient tolerance in hand-off communication Outcome: Progressing Problem: Toileting Needs Goal: Absence of/Reduce Fall Risk r/t Toileting Needs Description: Patient is a fall risk because of toileting needs (i.e. - IV fluids, UTI, diuretics, frequency, diarrhea). Potential Interventions: 1. Schedule toileting at frequent intervals based on patient's needs (i.e. - hourly, every 2 hours) 2. Frequent rounding between toileting 3. Bedside Commode 4. Activate bed or chair alarm while in bed or up in chair 5. Encourage male patients to use urinal 6. Educate patient on fall risk, use of grab bars, and to call for assistance 7. Assess length of IV and/or O2 tubing if applicable 8. Use bedpan or lift equipment if patient also has other fall risk factors (i.e. - mobility) Outcome: Progressing Problem: Communication/Sensory Goal: Absence of/Reduce Fall Risk r/t Communication/Sensory Description: Patient is a fall risk due to sensory or communication issues. Potential Interventions: 1.Use alternative communication devices wherever necessary and when available (i.e. - picture board, note pad and pen, etc) 2. MANAGER TALENT referral if applicable 3. Provide education in patient's primary language. Obtain dental receptionist and appropriate written materials. If patient refuses dental receptionist services have refusal waiver signed 4. Patients with visual deficits - place belongings and call light within field of vision, maintainsame setup in surroundings, narrate setup and activities to patient, provide necessary visual aids (i.e. Glasses) 5. Patients with hearing deficits - have patient repeat teaching back to ensure understanding 6. Patients with neuropathy - use appropriate assistive devices to aid mobility, and/or use appropriate footwear 7. Slow progressive position changes if patient experiencing dizziness Outcome: Progressing Problem: Cardiovascular Goal: Achieve optimal cardiovascular function by discharge or maintain baseline function Outcome: Progressing Problem: Peripheral Neurovascular Goal: Achieve optimal peripheral neurovascular function by discharge or maintain baseline function Outcome: Progressing Problem: Respiratory Goal: Achieve optimal respiratory function by discharge and/or maintain baseline function Outcome: Progressing Problem: Gastrointestinal Goal: Achieve optimal gastrointestinal function by discharge or maintain baseline function Outcome: Progressing Problem: Genitourinary/Renal Goal: Achieve optimal genitourinary and renal function by discharge or maintain baseline function Outcome: Progressing Problem: Musculoskeletal Goal: Achieve optimal musculoskeletal function by discharge or maintain baseline function Outcome: Progressing Problem: Volume/Electrolyte Status Goal: Absence of/Reduce Fall Risk r/t Volume/Electrolyte Status Description: Patient is a fall risk due to volume/electrolyte status (i.e. - electrolyte imbalances, nausea/vomiting, NPO, IV fluids). Potential Interventions: 1. Ensure blood sugar is checked at appropriate intervals and insulin dosing is given as ordered 2. Provide patient with an emesis basin or vomit bag (may need more than one at bedside) 3. Assess length of IV and/or O2 tubing if applicable 4. Ensure IV fluids are given as ordered for NPO patients to maintain hydration 5. Administer medications for nausea and vomiting as needed Outcome: Progressing Problem: Behavior Goal: Absence of/Reduce Fall Risk r/t Behavior Description: Potential Interventions: 1. Specialty low bed 2. Use floor mats next to bed and in front of chair when patient left unattended 3. Engage patient in daily routine/activity 4. Provide appropriate diversion activities (i.e. - coloring, crosswords, activity blanket, towel folding, books) 5. Alcohol withdrawal protocol/CIWA assessment as ordered 6. Encourage family to stay with patient 7. Use appropriate de-escalation techniques 8. Consulting pharmacy to review meds and make recommendations (determine best timing, possible dosing adjustments, or identify other education that might be appropriate for patient) 9. Utilize relaxation channel to soothe patient 10. Patient sitter 11. Appropriate lighting for day/night Outcome: Progressing MMAKING SUPERVISOR * Monet Clay - Wanda Vázquez RN - 04/11/2021 3:05 PM CST Pt A&Ox4, give fioricet for headache pain. Pt completed routine day of therapy and is resting,,expecting visitors this afternoon. Patient has had no falls at this time and is fall risk level/color red Interventions in Place: [x] Bed Alarm [] Clip Chair Alarm [] Self-Releasing Belt (a one time order is required) [x] Call Light within reach, return demo by patient completed [] Handoff patient when returning him/her to room [x] Wheelchair/Walker out of reach [] Low Bed [] Mats in Place [] Observation Room [x] Fall Risk Magnet on Door [x] Fall Risk Magnet on Schedule Board [x] Fall Risk Armband on Patient [] Sitter [] Other If patient is a red fall risk, do not leave alone in the bathroom. Patient Education on Medications Education provided Re: Vick Siegel This education was provided to the patient Name of medication: all medications administered during shift The education included the following: Administering their medication, Understanding the side effects of their medication Wanda Vázquez, TOMMY MMAKING SUPERVISOR * Care Danna - Zehra Boston LPN - 04/10/2021 7:08 PM CST Patient experienced routine day during this 12-hour shift of this nurse. Exhibiting baseline functioning, activity, & interaction with nursing. Receiving skilled therapies as ordered. Meals &fluids offered as ordered with I & Os documented in flowsheet. Medication administration as documented in MAR. Any noted exceptions to above statement: none Head-to-toe re-assessment observations documented in flowsheet. Any noted deviations from baseline observed in head-to-toe assessment: none Any abnormal VS requiring intervention or close monitoring: no Patient has had no falls at this time and is fall risk level/color yellow. Interventions in Place: [x] Bed Alarm [] Clip Chair Alarm [x] Call Light within reach, return demo by patient completed [x] Handoff patient when returning him/her to room [x] Wheelchair/Walker out of reach [] Low Bed [] Mats in Place [x] Fall Risk Magnet on Door [x] Fall Risk Magnet on Schedule Board [x] Fall Risk Armband on Patient [] Sitter [] Other Patient Education on Medications Education provided Re: Vick Siegel This education was provided to the patient, family Name of medication(s): medications administered this shift. The education included the following: How to identify their medication, Administering their medication, Storage of their medication, Understanding the side effects of their medication Zehra Boston LPN MMAKING SUPERVISOR * Care Plan - Radha Borja RN - 2021 11:24 PM CST Day 1 - Current ([facility]) Patient, family, or healthcare designee is participating in individual care plan process Outcome: Met Patient, family, or healthcare designee understands side effects of medications Outcome: Met Problem: Pain, Potential/Actual Goal: Verbalizes/displays acceptable comfort level or baseline comfort level Description: Outcome: Progressing Problem: Infection Risk/Actual Goal: Infection Risk/Actual: Infection prevention, control, or resolution by discharge Description: Outcome: Progressing Problem: Safety/Fall Goal: Safety/Fall: Absence of fall, injury, harm during hospitalization Description: Outcome: Progressing Problem: Discharge Planning Goal: Identify discharge needs upon admission and through discharge Description: Outcome: Progressing Problem: Nutrition/Endocrine Goal: Achieve optimal nutrition and fluid status to meet metabolic needs throughout hospitalization Outcome: Progressing Problem: Skin Goal: Maintain skin integrity and/or promote wound healing by discharge Outcome: Progressing Problem: Cognitive/Perceptual/Neuro Goal: Achieve optimal cognitive/perceptual/neurological function by discharge or maintain baseline function Outcome: Progressing Problem: Mobility Goal: Absence of/Reduce Fall Risk r/t Mobility Deficits Description: Patient is a fall risk because of mobility deficits. A patient with mobility deficits is automatically at high risk for falls. Potential Interventions: 1. Schedule patient toileting to avoid emergency trips to the bathroom 2. If available, use floor mats next to bed or in front of chair when up 3. If applicable, remove floor mats when getting patient up and replace when leaving patient 4. Assistive devices as required, educate patient on correct use of device (walkers, shower chairs,lift equipment, etc.) 5. Exit bed on patient's strongest side 6. Gait belt easily accessible 7. Activate bed or chair alarm while in bed or up in chair 8. Get order for PT consult if appropriate 9. Patient requires 2 assist - bedpan and bed bath if 2 staff not available, bedside commode if 2 staff are available entire time 10. Slow progressive position changes if patient experiencing dizziness Outcome: Progressing Problem: Medications Goal: Absence of/Reduce Fall Risk r/t Medications Description: Patient is a fall risk because of medications (i.e. - BP meds, CV/LEAD PERSON meds, seizure meds, diuretics, pain meds, psych meds, current chemotherapy). Potential Interventions: 1. Orthostatic VS q day; educate to dangle before rising 2. Educate patient and family on how medications increase patient's fall risk (may make dizzy, lower BP, etc) 3. Do first dose education with all med/dosage changes. Document education 4.Reassess fall risk whenever a medication is changed/added (sleeping pill, pain med, BP med dose adjustment, etc) 5. Activate bed or chair alarm while in bed or up in chair 6. Limit combination of PRN meds whenever possible (i.e. - space out narcs and benzos) 7. Schedule frequent toileting for patients on diuretic to help prevent emergencies 8. Consult pharmacy to review meds and make recommendations (determine best timing, possible dosingadjustments, or identify other education that might be appropriate for patient) 9. Use floor mats next to bed and in front of chair when patient left unattended 10.Do not leave patient unattended while toileting or showering 11.Use appropriate assistive equipment (walker, shower chair, etc) 12. Include information on high risk medications, last doses, and patient tolerance in hand-off communication Outcome: Progressing Problem: Toileting Needs Goal: Absence of/Reduce Fall Risk r/t Toileting Needs Description: Patient is a fall risk because of toileting needs (i.e. - IV fluids, UTI, diuretics, frequency, diarrhea). Potential Interventions: 1. Schedule toileting at frequent intervals based on patient's needs (i.e. - hourly, every 2 hours) 2. Frequent rounding between toileting 3. Bedside Commode 4. Activate bed or chair alarm while in bed or up in chair 5. Encourage male patients to use urinal 6. Educate patient on fall risk, use of grab bars, and to call for assistance 7. Assess length of IV and/or O2 tubing if applicable 8. Use bedpan or lift equipment if patient also has other fall risk factors (i.e. - mobility) Outcome: Progressing Problem: Communication/Sensory Goal: Absence of/Reduce Fall Risk r/t Communication/Sensory Description: Patient is a fall risk due to sensory or communication issues. Potential Interventions: 1.Use alternative communication devices wherever necessary and when available (i.e. - picture board, note pad and pen, etc) 2. MANAGER TALENT referral if applicable 3. Provide education in patient's primary language. Obtain dental receptionist and appropriate written materials. If patient refuses dental receptionist services have refusal waiver signed 4. Patients with visual deficits - place belongings and call light within field of vision, maintainsame setup in surroundings, narrate setup and activities to patient, provide necessary visual aids (i.e. Glasses) 5. Patients with hearing deficits - have patient repeat teaching back to ensure understanding 6. Patients with neuropathy - use appropriate assistive devices to aid mobility, and/or use appropriate footwear 7. Slow progressive position changes if patient experiencing dizziness Outcome: Progressing Problem: Cardiovascular Goal: Achieve optimal cardiovascular function by discharge or maintain baseline function Outcome: Progressing Problem: Peripheral Neurovascular Goal: Achieve optimal peripheral neurovascular function by discharge or maintain baseline function Outcome: Progressing Problem: Respiratory Goal: Achieve optimal respiratory function by discharge and/or maintain baseline function Outcome: Progressing Problem: Gastrointestinal Goal: Achieve optimal gastrointestinal function by discharge or maintain baseline function Outcome: Progressing Problem: Genitourinary/Renal Goal: Achieve optimal genitourinary and renal function by discharge or maintain baseline function Outcome: Progressing Problem: Musculoskeletal Goal: Achieve optimal musculoskeletal function by discharge or maintain baseline function Outcome: Progressing Problem: Volume/Electrolyte Status Goal: Absence of/Reduce Fall Risk r/t Volume/Electrolyte Status Description: Patient is a fall risk due to volume/electrolyte status (i.e. - electrolyte imbalances, nausea/vomiting, NPO, IV fluids). Potential Interventions: 1. Ensure blood sugar is checked at appropriate intervals and insulin dosing is given as ordered 2. Provide patient with an emesis basin or vomit bag (may need more than one at bedside) 3. Assess length of IV and/or O2 tubing if applicable 4. Ensure IV fluids are given as ordered for NPO patients to maintain hydration 5. Administer medications for nausea and vomiting as needed Outcome: Progressing Problem: Behavior Goal: Absence of/Reduce Fall Risk r/t Behavior Description: Potential Interventions: 1. Specialty low bed 2. Use floor mats next to bed and in front of chair when patient left unattended 3. Engage patient in daily routine/activity 4. Provide appropriate diversion activities (i.e. - coloring, crosswords, activity blanket, towel folding, books) 5. Alcohol withdrawal protocol/CIWA assessment as ordered 6. Encourage family to stay with patient 7. Use appropriate de-escalation techniques 8. Consulting pharmacy to review meds and make recommendations (determine best timing, possible dosing adjustments, or identify other education that might be appropriate for patient) 9. Utilize relaxation channel to soothe patient 10. Patient sitter 11. Appropriate lighting for day/night Outcome: Progressing MMAKING SUPERVISOR * Care Plan - Zehra Boston LPN - 2021 6:00 PM CST Patient experienced routine day during this 12-hour shift of this nurse. Exhibiting baseline functioning, activity, & interaction with nursing. Receiving skilled therapies as ordered. Meals &fluids offered as ordered with I & Os documented in flowsheet. Medication administration as documented in MAR. Any noted exceptions to above statement: none Head-to-toe re-assessment observations documented in flowsheet. Any noted deviations from baseline observed in head-to-toe assessment: none Any abnormal VS requiring intervention or close monitoring: no Patient has had no falls at this time and is fall risk level/color yellow. Interventions in Place: [x] Bed Alarm [] Clip Chair Alarm [x] Call Light within reach, return demo by patient completed [x] Handoff patient when returning him/her to room [x] Wheelchair/Walker out of reach [] Low Bed [] Mats in Place [x] Fall Risk Magnet on Door [x] Fall Risk Magnet on Schedule Board [x] Fall Risk Armband on Patient [] Sitter [] Other Patient Education on Medications Education provided Re: Vick Siegel This education was provided to the patient Name of medication(s): medications administered this shift. The education included the following: How to identify their medication, Administering their medication, Storage of their medication, Understanding the side effects of their medication Zehra Boston LPN MMAKING SUPERVISOR * Care Plan - Estelle Aceves RN - 04/08/2021 7:29 PM CST Patient Education on Medications Education provided Re: Vick Siegel This education was provided to the patient Name of medication: suppository The education included the following: How to identify their medication, Administering their medication, Understanding the side effects oftheir medication Estelle Aceves, KELSIEatient has had no falls at this time and is fall risk level/color yellow Interventions in Place: [x] Bed Alarm [] Clip Chair Alarm [] Self-Releasing Belt (a one time order is required) [x] Call Light within reach, return demo by patient completed [] Handoff patient when returning him/her to room [x] Wheelchair/Walker out of reach [] Low Bed [] Mats in Place [] Observation Room [x] Fall Risk Magnet on Door [x] Fall Risk Magnet on Schedule Board [x] Fall Risk Armband on Patient [] Sitter [] Other If patient is a red fall risk, do not leave alone in the bathroom. MMAKING SUPERVISOR * Care Plan - Zehra Boston LPN - 04/08/2021 6:05 PM CST Patient experienced routine day during this 12-hour shift of this nurse. Exhibiting baseline functioning, activity, & interaction with nursing. Receiving skilled therapies as ordered. Meals &fluids offered as ordered with I & Os documented in flowsheet. Medication administration as documented in MAR. Any noted exceptions to above statement: none Head-to-toe re-assessment observations documented in flowsheet. Any noted deviations from baseline observed in head-to-toe assessment: none Any abnormal VS requiring intervention or close monitoring: elevated b/p, midodrine and sodium held, positional, blood monitored Patient has had no falls at this time and is fall risk level/color yellow. Interventions in Place: [x] Bed Alarm [] Clip Chair Alarm [x] Call Light within reach, return demo by patient completed [x] Handoff patient when returning him/her to room [x] Wheelchair/Walker out of reach [] Low Bed [] Mats in Place [x] Fall Risk Magnet on Door [x] Fall Risk Magnet on Schedule Board [x] Fall Risk Armband on Patient [] Sitter [] Other Patient Education on Medications Education provided Re: Vick Siegel This education was provided to the patient Name of medication(s): medications administered this shift. The education included the following: How to identify their medication, Administering their medication, Storage of their medication, Understanding the side effects of their medication Zehra Boston LPN MMAKING SUPERVISOR * Care Plan - Debra Lozoya RN - 04/07/2021 12:39 AM CST Pt is A&Ox4 and is able to make needs known. Patient is resting in bed with no s/s of distress and had no complaint of pain. Pt took medication without difficulty.Call light is within reach will continue to monitor. Patient was already having a mod amount of BM so she didn't get the suppository. Pt had large results. Patient Education on Medications Education provided Re: Vick Siegel This education was provided to the patient Name of medication: all The education included the following: Administering their medication, Understanding the side effects of their medication Patient has had no falls at this time and is fall risk level/color red Interventions in Place: [x] Bed Alarm [] Clip Chair Alarm [] Self-Releasing Belt (a one time order is required) [x] Call Light within reach, return demo by patient completed [x] Handoff patient when returning him/her to room [x] Wheelchair/Walker out of reach [x] Low Bed [] Mats in Place [] Observation Room [x] Fall Risk Magnet on Door [x] Fall Risk Magnet on Schedule Board [x] Fall Risk Armband on Patient [] Sitter [] Other If patient is a red fall risk, do not leave alone in the bathroom. Debra Lozoya RN MMAKING SUPERVISOR * Care Plan - Maxwell Russ RN - 04/06/2021 5:34 AM CST Problem: Pain, Potential/Actual Goal: Verbalizes/displays acceptable comfort level or baseline comfort level Description: Outcome: Progressing Problem: Infection Risk/Actual Goal: Infection Risk/Actual: Infection prevention, control, or resolution by discharge Description: Outcome: Progressing Problem: Safety/Fall Goal: Safety/Fall: Absence of fall, injury, harm during hospitalization Description: Outcome: Progressing Problem: Discharge Planning Goal: Identify discharge needs upon admission and through discharge Description: Outcome: Progressing Problem: Nutrition/Endocrine Goal: Achieve optimal nutrition and fluid status to meet metabolic needs throughout hospitalization Outcome: Progressing Problem: Skin Goal: Maintain skin integrity and/or promote wound healing by discharge Outcome: Progressing Problem: Cognitive/Perceptual/Neuro Goal: Achieve optimal cognitive/perceptual/neurological function by discharge or maintain baseline function Outcome: Progressing Problem: Mobility Goal: Absence of/Reduce Fall Risk r/t Mobility Deficits Description: Patient is a fall risk because of mobility deficits. A patient with mobility deficits is automatically at high risk for falls. Potential Interventions: 1. Schedule patient toileting to avoid emergency trips to the bathroom 2. If available, use floor mats next to bed or in front of chair when up 3. If applicable, remove floor mats when getting patient up and replace when leaving patient 4. Assistive devices as required, educate patient on correct use of device (walkers, shower chairs,lift equipment, etc.) 5. Exit bed on patient's strongest side 6. Gait belt easily accessible 7. Activate bed or chair alarm while in bed or up in chair 8. Get order for PT consult if appropriate 9. Patient requires 2 assist - bedpan and bed bath if 2 staff not available, bedside commode if 2 staff are available entire time 10. Slow progressive position changes if patient experiencing dizziness Outcome: Progressing Problem: Medications Goal: Absence of/Reduce Fall Risk r/t Medications Description: Patient is a fall risk because of medications (i.e. - BP meds, CV/LEAD PERSON meds, seizure meds, diuretics, pain meds, psych meds, current chemotherapy). Potential Interventions: 1. Orthostatic VS q day; educate to dangle before rising 2. Educate patient and family on how medications increase patient's fall risk (may make dizzy, lower BP, etc) 3. Do first dose education with all med/dosage changes. Document education 4.Reassess fall risk whenever a medication is changed/added (sleeping pill, pain med, BP med dose adjustment, etc) 5. Activate bed or chair alarm while in bed or up in chair 6. Limit combination of PRN meds whenever possible (i.e. - space out narcs and benzos) 7. Schedule frequent toileting for patients on diuretic to help prevent emergencies 8. Consult pharmacy to review meds and make recommendations (determine best timing, possible dosingadjustments, or identify other education that might be appropriate for patient) 9. Use floor mats next to bed and in front of chair when patient left unattended 10.Do not leave patient unattended while toileting or showering 11.Use appropriate assistive equipment (walker, shower chair, etc) 12. Include information on high risk medications, last doses, and patient tolerance in hand-off communication Outcome: Progressing Problem: Toileting Needs Goal: Absence of/Reduce Fall Risk r/t Toileting Needs Description: Patient is a fall risk because of toileting needs (i.e. - IV fluids, UTI, diuretics, frequency, diarrhea). Potential Interventions: 1. Schedule toileting at frequent intervals based on patient's needs (i.e. - hourly, every 2 hours) 2. Frequent rounding between toileting 3. Bedside Commode 4. Activate bed or chair alarm while in bed or up in chair 5. Encourage male patients to use urinal 6. Educate patient on fall risk, use of grab bars, and to call for assistance 7. Assess length of IV and/or O2 tubing if applicable 8. Use bedpan or lift equipment if patient also has other fall risk factors (i.e. - mobility) Outcome: Progressing Problem: Communication/Sensory Goal: Absence of/Reduce Fall Risk r/t Communication/Sensory Description: Patient is a fall risk due to sensory or communication issues. Potential Interventions: 1.Use alternative communication devices wherever necessary and when available (i.e. - picture board, note pad and pen, etc) 2. MANAGER TALENT referral if applicable 3. Provide education in patient's primary language. Obtain dental receptionist and appropriate written materials. If patient refuses dental receptionist services have refusal waiver signed 4. Patients with visual deficits - place belongings and call light within field of vision, maintainsame setup in surroundings, narrate setup and activities to patient, provide necessary visual aids (i.e. Glasses) 5. Patients with hearing deficits - have patient repeat teaching back to ensure understanding 6. Patients with neuropathy - use appropriate assistive devices to aid mobility, and/or use appropriate footwear 7. Slow progressive position changes if patient experiencing dizziness Outcome: Progressing Problem: Cardiovascular Goal: Achieve optimal cardiovascular function by discharge or maintain baseline function Outcome: Progressing Problem: Peripheral Neurovascular Goal: Achieve optimal peripheral neurovascular function by discharge or maintain baseline function Outcome: Progressing Problem: Respiratory Goal: Achieve optimal respiratory function by discharge and/or maintain baseline function Outcome: Progressing Problem: Gastrointestinal Goal: Achieve optimal gastrointestinal function by discharge or maintain baseline function Outcome: Progressing Problem: Genitourinary/Renal Goal: Achieve optimal genitourinary and renal function by discharge or maintain baseline function Outcome: Progressing Problem: Musculoskeletal Goal: Achieve optimal musculoskeletal function by discharge or maintain baseline function Outcome: Progressing Problem: Volume/Electrolyte Status Goal: Absence of/Reduce Fall Risk r/t Volume/Electrolyte Status Description: Patient is a fall risk due to volume/electrolyte status (i.e. - electrolyte imbalances, nausea/vomiting, NPO, IV fluids). Potential Interventions: 1. Ensure blood sugar is checked at appropriate intervals and insulin dosing is given as ordered 2. Provide patient with an emesis basin or vomit bag (may need more than one at bedside) 3. Assess length of IV and/or O2 tubing if applicable 4. Ensure IV fluids are given as ordered for NPO patients to maintain hydration 5. Administer medications for nausea and vomiting as needed Outcome: Progressing Problem: Behavior Goal: Absence of/Reduce Fall Risk r/t Behavior Description: Potential Interventions: 1. Specialty low bed 2. Use floor mats next to bed and in front of chair when patient left unattended 3. Engage patient in daily routine/activity 4. Provide appropriate diversion activities (i.e. - coloring, crosswords, activity blanket, towel folding, books) 5. Alcohol withdrawal protocol/CIWA assessment as ordered 6. Encourage family to stay with patient 7. Use appropriate de-escalation techniques 8. Consulting pharmacy to review meds and make recommendations (determine best timing, possible dosing adjustments, or identify other education that might be appropriate for patient) 9. Utilize relaxation channel to soothe patient 10. Patient sitter 11. Appropriate lighting for day/night Outcome: Progressing MMAKING SUPERVISOR * Care Plan - Cindy Martin LPN - 04/03/2021 6:06 AM CST Received bedside report from Karen SANDERS and assumed care of Pt at 1845. Meds given per JUN, VSS. More LLE movement this shift. Bowel routine completed with + result, tolerated well. PRN Tizanidine and APAP given for head/neck/shoulder pain with relief reported. Slept well overnight with no significant changes in condition. See flowsheet for assessment details. Safety/fall prevention interventions in place, will continue to monitor and report to oncoming nurse. Patient has had no falls at this time and is fall risk level/color yellow Interventions in Place: [x] Bed Alarm [] Clip Chair Alarm [] Self-Releasing Belt (a one time order is required) [x] Call Light within reach, return demo by patient completed [] Handoff patient when returning him/her to room [x] Wheelchair/Walker out of reach [] Low Bed [] Mats in Place [] Observation Room [x] Fall Risk Magnet on Door [x] Fall Risk Magnet on Schedule Board [x] Fall Risk Armband on Patient [] Sitter [] Other Patient Education on Medications Education provided Re: Vick Siegel This education was provided to the Patient Name of medication: All due meds The education included the following: How to identify their medication, Administering their medication, Storage of their medication, Understanding the side effects of their medication Cindy Martin LPN MMAKING SUPERVISOR * Care Plan - Cindy Martin LPN - 04/02/2021 6:03 AM CST Received bedside report from Karen SANDERS and assumed care of Pt at 1845. Meds given per JUN, VSS. Pain well controlled with PRN APAP and Zanaflex overnight. Bowel routine completed with + result, tolerated well. Concerned r/t cloudy odorous urine, message sent to MD. See flowsheet for assessment details. Safety/fall prevention interventions in place, will continue to monitor and report to oncoming nurse. Patient has had no falls at this time and is fall risk level/color yellow Interventions in Place: [x] Bed Alarm [] Clip Chair Alarm [] Self-Releasing Belt (a one time order is required) [x] Call Light within reach, return demo by patient completed [] Handoff patient when returning him/her to room [x] Wheelchair/Walker out of reach [] Low Bed [] Mats in Place [] Observation Room [x] Fall Risk Magnet on Door [x] Fall Risk Magnet on Schedule Board [x] Fall Risk Armband on Patient [] Sitter [] Other Patient Education on Medications Education provided Re: Vick Siegel This education was provided to the Patient Name of medication: All due meds The education included the following: How to identify their medication, Administering their medication, Storage of their medication, Understanding the side effects of their medication Cindy Martin LPN MMAKING SUPERVISOR * Care Plan - Cindy Martin LPN - 04/01/2021 5:58 AM CST Received bedside report from Juli SANDERS and assumed care of Pt at 1845. Meds given per JUN, VSS. Large incontinent BM when preparing to complete bowel routine, able to feel the urge to defecate andrequested to use bedpan with further + BM. Refused suppository. Clemons patent draining clear yellow urine. PRN Zanaflex given at HS for leg/back spasms with relief reported. Slept fairly well overnight. See flowsheet for assessment details. Safety/fall prevention interventions in place, will continue to monitor and report to oncoming nurse. Problem: Gastrointestinal Goal: Achieve optimal gastrointestinal function by discharge or maintain baseline function Outcome: Variance Patient has had no falls at this time and is fall risk level/color yellow Interventions in Place: [x] Bed Alarm [] Clip Chair Alarm [] Self-Releasing Belt (a one time order is required) [x] Call Light within reach, return demo by patient completed [] Handoff patient when returning him/her to room [x] Wheelchair/Walker out of reach [] Low Bed [] Mats in Place [] Observation Room [x] Fall Risk Magnet on Door [x] Fall Risk Magnet on Schedule Board [x] Fall Risk Armband on Patient [] Sitter [] Other Patient Education on Medications Education provided Re: Vick Siegel This education was provided to the Patient Name of medication: All due meds The education included the following: How to identify their medication, Administering their medication, Storage of their medication, Understanding the side effects of their medication Cindy Martin LPN MMAKING SUPERVISOR * Care Plan - Fidel Rubin RN - 03/31/2021 4:21 AM CST Patient is A&O x 4, incontinent of bowel, last BM on 03/30 after bowel routine. Clemons catheter patent, yellow cloudy urine observed. BP 145/80, held scheduled Midodrine. Rechecked BP 155/82, P 96 notified FEI Mock. PRN Tylenol given for posterior neck pain and headache with partial effective. Denies chest pain, nausea, dizziness. Patient took all scheduled night medications without any difficulty. 1+ edema to LLE, L-nard boot on left foot. Lung sounds clear. Good appetite. Sleeps well all through out night. Call light within reach. Keep hourly rounding. Patient has had no falls at this time and is fall risk level/color red Interventions in Place: [x] Bed Alarm [] Clip Chair Alarm [x] Self-Releasing Belt (a one time order is required) [x] Call Light within reach, return demo by patient completed [x] Handoff patient when returning him/her to room [x] Wheelchair/Walker out of reach [x] Low Bed [] Mats in Place [] Observation Room [x] Fall Risk Magnet on Door [x] Fall Risk Magnet on Schedule Board [x] Fall Risk Armband on Patient [] Sitter [] Other If patient is a red fall risk, do not leave alone in the bathroom. Patient Education on Medications Education provided Re: Vick Siegel This education was provided to the patient Name of medication: All night medications given The education included the following: Administering their medication, Understanding the side effects of their medication Fidel Rubin RN MMAKING SUPERVISOR * Care Plan - Sarah Navarro RN - 03/28/2021 7:15 AM CST Patient experienced routine day during this 12-hour shift of this nurse. Exhibiting baseline functioning, activity, & interaction with nursing. Receiving skilled therapies as ordered. Meals &fluids offered as ordered with I & Os documented in flowsheet. Medication administration as documented in MAR. Any noted exceptions to above statement: none Head-to-toe re-assessment observations documented in flowsheet. Any noted deviations from baseline observed in head-to-toe assessment: none Any abnormal VS requiring intervention or close monitoring: no Patient Education on Medications Education provided Re: Vick Siegel This education was provided to the patient Name of medication: All scheduled medicine given The education included the following: How to identify their medication, Administering their medication, Storage of their medication, Understanding the side effects of their medication Sarah Navarro RN Patient has had no falls at this time and is fall risk level/color Red Interventions in Place: [x] Bed Alarm [] Clip Chair Alarm [x] Call Light within reach, return demo by patient completed [] Handoff patient when returning him/her to room [x] Wheelchair/Walker out of reach [] Low Bed [] Mats in Place [x] Fall Risk Magnet on Door [x] Fall Risk Magnet on Schedule Board [x] Fall Risk Armband on Patient [] Sitter [] Other If patient is red fall risk: [x] Patient will not be left alone in bathroom [] Self-Releasing Belt (a one time order is required) [] Patient demonstrated ability to release wheelchair alarmed seatbelt. [] Observation Room Denies SOB and having chest pain. Incontinent for bowel and unable to void, did bladder scan every 6 hours. This morning while doing straight cath there was small blood clots is seen, morning nurse made aware of it, continue monitoring. Dr. rangel made aware of it MMAKING SUPERVISOR documented in this encounter Plan of Treatment Upcoming Encounters Date Type Department Care Team (Late st Contact Info) Description 08/24/2024 11:00 AM CDT Video Visit [facility] Physical Med and Rehab - [facility] [id number] [place] [phone] [place] [address] [place] [address] Scheduled Referrals Name Type Priority Associated Diagnoses Orde r Schedule AMB REFERRAL TO HOME CARE Outpatient Referral Routine Cervical spondylosis with radiculopathy Cord compression Ordered: 04/08/2021 documented as of this encounter Procedures Procedure Name Priority Date/Time Associated Diagnosis Comments ECG REPORT 05/07/2021 9:11 AM BROOMMAKING SUPERVISOR CBC WITH DIFFERENTIAL Routine 04/14/2021 4:06 AM BROOMMAKING SUPERVISOR C-REACTIVE PROTEIN Routine 04/14/2021 4: 06 AM BROOMMAKING SUPERVISOR PHOSPHORUS Routine 04/14/2021 4:06 AM BROOMMAKING SUPERVISOR MAGNESIUM LEVEL Routine 04/14/2021 4:06 AM BROOMMAKING SUPERVISOR COMPREHENSIVE METABOLIC PANEL Routine 04/14/2021 4:06 AM BROOMMAKING SUPERVISOR URINALYSIS WITH REFLEX CULTURE Routine 04/13/2021 11:36 AM BROOMMAKING SUPERVISOR URINE CULTURE Routine 04/13/2021 11:36 AM BROOMMAKING SUPERVISOR URINALYSIS WITH REFLEX CULTURE Routine 04/10/2021 5:16 PM BROOMMAKING SUPERVISOR CBC WITH DIFFERENTIAL Routine 2021 11:57 AM BROOMMAKING SUPERVISOR C-REACTIVE PROTEIN Routine 2021 11 :57 AM BROOMMAKING SUPERVISOR PHOSPHORUS Routine 2021 11:57 AM BROOMMAKING SUPERVISOR MAGNESIUM LEVEL Routine 2021 11:57 AM BROOMMAKING SUPERVISOR COMPREHENSIVE METABOLIC PANEL Routine 2021 11:57 AM BROOMMAKING SUPERVISOR URINALYSIS WITH REFLEX CULTURE Routine 04/02/2021 2:46 PM BROOMMAKING SUPERVISOR URINE CULTURE Routine 04/02/2021 2:46 PM BROOMMAKING SUPERVISOR CBC WITH DIFFERENTIAL Routine 04/02/2021 4:34 AM BROOMMAKING SUPERVISOR C-REACTIVE PROTEIN Routine 04/02/2021 4: 34 AM BROOMMAKING SUPERVISOR PHOSPHORUS Routine 04/02/2021 4:34 AM BROOMMAKING SUPERVISOR MAGNESIUM LEVEL Routine 04/02/2021 4:34 AM BROOMMAKING SUPERVISOR COMPREHENSIVE METABOLIC PANEL Routine 04/02/2021 4:34 AM BROOMMAKING SUPERVISOR XR CHEST PA OR AP 1 VW Routine 7:23 PM BROOMMAKING SUPERVISOR POC COVID-19 PCR DETECTION Routine 03/28/2021 10:20 AM BROOMMAKING SUPERVISOR TSH REFLEXIVE Routine 03/28/2021 5:04 AM BROOMMAKING SUPERVISOR CBC WITH DIFFERENTIAL Routine 03/28/2021 5:04 AM BROOMMAKING SUPERVISOR VITAMIN D 25 HYDROXY Routine 03/28/2021 5:04 AM BROOMMAKING SUPERVISOR VITAMIN B12 LEVEL Routine 03/28/2021 5:0 4 AM BROOMMAKING SUPERVISOR COMPREHENSIVE METABOLIC PANEL Routine 03/28/2021 5:04 AM BROOMMAKING SUPERVISOR URINALYSIS WITH REFLEX CULTURE Routine 03/28/2021 1:24 AM BROOMMAKING SUPERVISOR URINE CULTURE Routine 03/28/2021 1:24 AM BROOMMAKING SUPERVISOR documented in this encounter Results * ECG REPORT (05/07/2021 9:11 AM BROOMMAKING SUPERVISOR) Provider Scanning ECG ORDERABLES * PHOSPHORUS (04/14/2021 4:06 AM BROOMMAKING SUPERVISOR) PHOSPHORUS 3.6 2.5 - 4.5 mg/dL 04/14/2021 1:32 PM BROOMMAKING SUPERVISOR [facility] Blood Venipuncture / Unknown 04/14/2021 4:06 AM BROOMMAKING SUPERVISOR 04/14/2021 12:54 PM BROOMMAKING SUPERVISOR Yuliet Gomez NP CHEMISTRY ORDERABLES [facility] CLIA# [id number] [address] [place] [address] * MAGNESIUM LEVEL (04/14/2021 4:06 AM BROOMMAKING SUPERVISOR) MAGNESIUM 2.3 1.6 - 2.4 mg/dL 04/14/2021 1:32 PM BROOMMAKING SUPERVISOR [facility] Blood Venipuncture / Unknown 04/14/2021 4:06 AM BROOMMAKING SUPERVISOR 04/14/2021 12:54 PM BROOMMAKING SUPERVISOR Yuliet Gomez NP CHEMISTRY ORDERABLES [facility] CLIA# [id number] [address] [place] [address] * C-REACTIVE PROTEIN (04/14/2021 4:06 AM BROOMMAKING SUPERVISOR) CRP 4.4 <5.0 mg/L 04/14/2021 1:32 PM [facility] Blood Venipuncture / Unknown 04/14/2021 4:06 AM BROOMMAKING SUPERVISOR 04/14/2021 12:54 PM BROOMMAKING SUPERVISOR Yuliet Gomez NP CHEMISTRY ORDERABLES [facility] CLIA# [id number] [address] [facility] [place] [address] * (ABNORMAL) COMPREHENSIVE METABOLIC PANEL (04/14/2021 4:06 AM BROOMMAKING SUPERVISOR) SODIUM 142 136 - 145 mmol/L 04/14/2021 1:32 PM [facility] [place] POTASSIUM 3.4(L) 3.5 - 5.0 mmol/L 04/14/2021 1:32 PM [facility] CHLORIDE 107 98 - 107 mmol/L 04/14/2021 1:32 PM [facility] CO2 24 22 - 29 mmol/L 04/14/2021 1:32 PM [facility] CALCIUM 8.9 8.6 - 10.2 mg/dL 04/14/2021 1:32 PM [facility] BUN 22 8 - 23 mg/dL 04/14/2021 1:32 PM [facility] CREATININE 0.85 0.51 - 0.95 mg/dL 04/14/2021 1:32 PM [facility] GLUCOSE 171(H) 74 - 99 mg/dL 04/14/2021 1:32 PM [facility] TOTAL PROTEIN 5.4(L) 6.7 - 8.6 g/dL 04/14/2021 1:32 PM [facility] ALBUMIN 3.3(L) 3.5 - 5.2 g/dL 04/14/2021 1:32 PM [facility] BILIRUBIN TOTAL <0.2(L) 0.2 - 1.1 mg/dL 04/14/2021 1:32 PM [facility] ALKALINE PHOSPHATASE 103 35 - 104 U/L 04/14/2021 1:32 PM [facility] AST 12 <33 U/L 04/14/2021 1:32 PM [facility] ALT 15 <34 U/L 04/14/2021 1:32 PM [facility] GFR >60 mL/min/1.7 3 sq meter 04/14/2021 1:32 PM [facility] Comment: eGFR has not been validated for use in the elderly (> 70 years of age), women, patients with serious co-morbid conditions, or persons with extremes of body size or muscle mass and should also be interpreted with caution in patients with acute kidney failure, dialysis dependent patients, patients reporting exceptional dietary intake (e.g. vegetarian diet, high protein diets, creatine supplementation), and patients with severe liver disease. Based on National Kidney Disease Education Program If patient is , please refer to the GFR result. GFR, >60 mL/min/1.7 3 sq meter 04/14/2021 1:32 PM [facility] ANION GAP 11 8 - 16 mmol/L 04/14/2021 1:32 PM [facility] Blood Venipuncture / Unknown 04/14/2021 4:06 AM BROOMMAKING SUPERVISOR 04/14/2021 12:54 PM [facility] Narrative [facility] - 04/14/2021 1:32 PM [facility] Samples containing indocyanine green cause interferences on Total and/or Direct Bilirubin and must not be measured. Yuliet Gomez NP CHEMISTRY ORDERABLES [facility]# [id number] [address] [place] [address] * (ABNORMAL) CBC WITH DIFFERENTIAL (04/14/2021 4:06 AM BROOMMAKING SUPERVISOR) Pathologist [facility] WBC 4.0 4.0 - 9.8 K/uL 04/14/2021 1:07 PM BROOMMAKING SUPERVISOR [facility] [facility] - [facility] RBC 3.39(L) 3.90 - 4.90 M/uL 04/14/2021 1:07 PM BROOMMAKING SUPERVISOR [facility] - [facility] HEMOGLOBIN 9.9(L) 11.8 - 14.8 g/dL 04/14/2021 1:07 PM BROOMMAKING SUPERVISOR [facility] [facility] - [facility] HEMATOCRIT 32.8(L) 35.5 - 44.0 % 04/14/2021 1:07 PM BROOMMAKING SUPERVISOR [facility] [facility] - [facility] MCV 96.8 82.0 - 99.0 fL 04/14/2021 1:07 PM BROOMMAKING SUPERVISOR [facility] [employer] [facility] - [facility] MCH 29.2 27.2 - 32.6 pg 04/14/2021 1:07 PM BROOMMAKING SUPERVISOR [employer] [facility] - [facility] MCHC 30.2(L) 31.5 - 35.5 g/dL 04/14/2021 1:07 PM [facility] - [facility] RDW 13.9 11.5 - 14.5 % 04/14/2021 1:07 PM [facility] - [facility] RDW-STDEV 49.3(H) 37.1 - 48.7 fL 04/14/2021 1:07 PM BROOMMAKING SUPERVISOR [employer] [facility] - [facility] PLATELETS 227 140 - 350 K/uL 04/14/2021 1:07 PM [facility] - [facility] MPV 10.0 9.3 - 12.4 fL 04/14/2021 1:07 PM [facility] - . [facility] NEUTROPHILS 54 % 04/14/2021 1:07 PM BROOMMAKING SUPERVISOR [employer] [facility] - . [facility] LYMPHOCYTES 33 % 04/14/2021 1:07 PM BROOMMAKING SUPERVISOR [facility] [facility] - [facility] [place] MONOCYTES 12 % 04/14/2021 1:07 PM BROOMMAKING SUPERVISOR [facility] EOSINOPHILS 0 % 04/14/2021 1:07 PM BROOMMAKING SUPERVISOR [employer] [facility] - . [facility] BASOPHILS 0 % 04/14/2021 1:07 PM BROOMMAKING SUPERVISOR [employer] [facility] - . [facility] IMMATURE GRANULOCYTES 1 % 04/14/2021 1:07 PM BROOMMAKING SUPERVISOR [employer] [facility] SERVICES - . [facility] Comment:IG (Immature Granulo cyte) count includes Metamyelocytes, Myelocytes, and Promyelocytes NEUTROPHIL ABSOLUTE 2.18 1.90 - 7.00 K/uL 04/14/2021 1:07 PM [facility] LYMPHOCYTE ABSOLUTE 1.31 0.70 - 4.50 K/uL 04/14/2021 1:07 PM [facility] MONOCYTE ABSOLUTE 0.49 0.10 - 1.30 K/uL 04/14/2021 1:07 PM [facility] EOSINOPHIL ABSOLUTE 0.00 0.00 - 0.70 K/uL 04/14/2021 1:07 PM [facility] BASOPHILS ABSOLUTE 0.00 0.00 - 0.20 K/uL 04/14/2021 1:07 PM [facility] IMMATURE GRANULOCYTES ABSOLUTE 0.02 0.00 - 0.03 K/uL 04/14/2021 1:07 PM [facility] Blood Venipuncture / Unknown 04/14/2021 4:06 AM BROOMMAKING SUPERVISOR 04/14/2021 12:54 PM BROOMMAKING SUPERVISOR Yuliet Gomez NP HEMATOLOGY ORDERABLE [facility]# [id number] [address] [facility] [place] [address] * (ABNORMAL) URINE CULTURE (04/13/2021 11:36 AM BROOMMAKING SUPERVISOR) CULTURE ESCHERICHIA COLI(A) STEPHEN MCG/ML 04/15/2021 11:16 AM BROOMMAKING SUPERVISOR [facility] [employer] [facility] Urine (Urine, indwelling (Clemons) catheter) Collection / Unknown 04/13/2021 11:36 AM BROOMMAKING SUPERVISOR 04/13/2021 7:07 PM BROOMMAKING SUPERVISOR Narrative Organism Antibiotic Method Susceptibility Escherichia coli AMPICILLIN STEPHEN MCG/ML 4 mcg/mL: Susceptible Escherichia coli CEFAZOLIN STEPHEN MCG/ML <=4 mcg/mL: Susceptible Escherichia coli CEFUROXIME STEPHEN MCG/ML Susceptible Escherichia coli CEPHALEXIN STEPHEN MCG/ML Susceptible Escherichia coli CEFPODOXIME STEPHEN MCG/ML Susceptible Escherichia coli CEFACLOR STEPHEN MCG/ML Susceptible Escherichia coli CEFDINIR STEPHEN MCG/ML Susceptible Escherichia coli CIPROFLOXACIN STEPHEN MCG/ML <=0.25 mcg/mL: Susceptible Escherichia coli GENTAMICIN STEPHEN MCG/ML <=1 mcg/mL: Susceptible Escherichia coli NITROFURANTOIN STEPHEN MCG/ML 32 mcg/mL: Susceptible Escherichia coli TRIMETHOPRIM/ SULFAMETHOXAZOLE STEPHEN MC G/ML <=20 mcg/mL: Susceptible Be Rangel DO MICROBIOLOGY - [facility] ORDERABLES [facility] CLIA# [id number] [address] [facility] [place] [address] * (ABNORMAL) URINALYSIS WITH REFLEX CULTURE (04/13/2021 11:36 AM BROOMMAKING SUPERVISOR) COLOR UA Yellow Pale to Dark Yellow 04/13/2021 7:07 PM [facility] [employer] [facility] - [facility] CLARITY UA Cloudy(A) Clear 04/13/2021 7:07 PM BROOMMAKING SUPERVISOR [employer] [facility] - [facility] SPECIFIC GRAVITY UA 1.010 1.003 - 1.035 04/13/2021 7:07 PM [facility] [employer] [facility] - [facility] PH UA 8.0 5.0 - 8.0 04/13/2021 7:07 PM [facility] [employer] [facility] - [facility] LEUKOCYTE ESTERASE UA 3+(A) Negative 04/13/2021 7:07 PM [facility] [employer] [facility] - [facility] NITRITE UA Positive(A) Negative 04/13/2021 7:07 PM BROOMMAKING SUPERVISOR [employer] - [facility] PROTEIN UA Negative Negative 04/13/2021 7:07 PM BROOMMAKING SUPERVISOR [facility] - . [facility] GLUCOSE UA Negative Negative 04/13/2021 7:07 PM BROOMMAKING SUPERVISOR [employer] - [facility] KETONES UA Negative Negative 04/13/2021 7:07 PM [facility] [employer] [facility]ORY SERVICES - . [facility] UROBILINOGEN UA Normal <2.0 mg/dL 7:07 PM BROOMMAKING SUPERVISOR [employer] LABORATORY SERVICES - [facility] BILIRUBIN UA Negative Negative 04/13/2021 7:07 PM BROOMMAKING SUPERVISOR [employer] LABORATORY SERVICES - . [facility] BLOOD UA 1+(A) Negative 04/13/2021 7:07 PM [facility] [employer] [facility] WBC UA >100(A) 0 - 2 /hpf 04/13/2021 7:07 PM [facility] RBC UA 3-5(A) 0 - 2 /hpf 04/13/2021 7:07 PM [facility] [employer] [facility]. [facility] BACTERIA UA 2+(A) Negative /hpf 04/13/2021 7:07 PM [facility] [employer] [facility] WBC CLUMPS Present(A) Absent 04/13/2021 7:07 PM [facility] [employer] [facility] Urine (Urine, indwelling (Clemons) catheter) Collection / Unknown 04/13/2021 11:36 AM BROOMMAKING SUPERVISOR 04/13/2021 6:27 PM BROOMMAKING SUPERVISOR [facility] [employer] [facility] - 04/13/2021 7:07 PM BROOMMAKING SUPERVISOR Based on results, a urine culture has been reflexed. Be Rangel DO URINE ORDERABLES [facility] [employer] [facility] [id number] [address] [place] [address] * (ABNORMAL) URINALYSIS WITH REFLEX CULTURE (04/10/2021 5:16 PM BROOMMAKING SUPERVISOR) COLOR UA Yellow Pale to Dark Yellow 04/10/2021 7:01 PM [facility] [employer] [facility] CLARITY UA Clear Clear 04/10/2021 7:01 PM [facility] [employer] [facility] SPECIFIC GRAVITY UA 1.020 1.003 - 1.035 04/10/2021 7:01 PM [facility] [employer] [facility] PH UA 7.0 5.0 - 8.0 04/10/2021 7:01 PM [facility] [employer] [facility] LEUKOCYTE ESTERASE UA Negative Negative 04/10/2021 7:01 PM [facility] [employer] [facility] NITRITE UA Negative Negative 04/10/2021 7:01 PM [facility] [employer] [facility] PROTEIN UA Negative Negative 04/10/2021 7:01 PM [facility] LABORATORY [facility]. [facility] GLUCOSE UA 3+(A) Negative 04/10/2021 7:01 PM [facility] LABORATORY [facility] - . [facility] KETONES UA Trace(A) Negative 04/10/2021 7:01 PM [facility] LABORATORY [facility] - [facility] UROBILINOGEN UA Normal <2.0 mg/dL 7:01 PM [facility] LABORATORY SERVICES - . [facility] BILIRUBIN UA Negative Negative 04/10/2021 7:01 PM [facility] LABORATORY [facility] - [facility] BLOOD UA Negative Negative 04/10/2021 7:01 PM [facility] LABORATORY [facility] - [facility] Urine URINE SPECIMEN / Unknown Collection / Unknown 04/10/2021 5:16 PM BROOMMAKING SUPERVISOR 04/10/2021 6:30 PM BROOMMAKING SUPERVISOR Yuliet Gomez INFRASTRUCTURE ARCHITECT URINE ORDERABLES [facility] CLIA# [id number] [address] [place] [address] * (ABNORMAL) PHOSPHORUS (2021 11:57 AM BROOMMAKING SUPERVISOR) PHOSPHORUS 5.1(H) 2.5 - 4.5 mg/dL 2021 12:36 PM [facility] LABORATORY [facility] Blood Venipuncture / Unknown 2021 11:57 AM BROOMMAKING SUPERVISOR 2021 11:57 AM BROOMMAKING SUPERVISOR Yuliet Gomez NP CHEMISTRY ORDERABLES [facility] CLIA# [id number] [address] [place] [address] * MAGNESIUM LEVEL (2021 11:57 AM BROOMMAKING SUPERVISOR) MAGNESIUM 2.1 1.6 - 2.4 mg/dL 2021 12:36 PM BROOMMAKING SUPERVISOR [facility] Blood Venipuncture / Unknown 2021 11:57 AM BROOMMAKING SUPERVISOR 2021 11:57 AM BROOMMAKING SUPERVISOR Yuliet Gomez NP [facility]MISTRY [facility]ABLES [id number] [address] [place] [address] * C-REACTIVE PROTEIN (2021 11:57 AM BROOMMAKING SUPERVISOR) Pathologist [facility] CRP <3.0 <5.0 mg/L 2021 12:36 PM BROOMMAKING SUPERVISOR [employer] LABORATORY SERVICES [facility] Blood Venipuncture / Unknown 2021 11:57 AM BROOMMAKING SUPERVISOR 2021 11:57 AM BROOMMAKING SUPERVISOR Yuliet Gomez NP CHEMISTRY ORDERABLES Performing Organization Address City/[facility]/ZIP Co de Phone Number [facility] [employer] [facility] [id number] [address] [place] [address] * (ABNORMAL) COMPREHENSIVE METABOLIC PANEL (2021 11:57 AM BROOMMAKING SUPERVISOR) Pathologist [facility] SODIUM 139 136 - 145 mmol/L 2021 12:36 PM BROOMMAKING SUPERVISOR [employer] LABORATORY SERVICES - [facility] POTASSIUM 3.7 3.5 - 5.0 mmol/L 2021 12:36 PM BROOMMAKING SUPERVISOR [employer] LABORATORY SERVICES - . [facility] CHLORIDE 103 98 - 107 mmol/L 2021 12:36 PM BROOMMAKING SUPERVISOR [employer] LABORATORY SERVICES - . [facility] CO2 25 22 - 29 mmol/L 2021 12:36 PM BROOMMAKING SUPERVISOR [employer] LABORATORY SERVICES - [facility] CALCIUM 8.8 8.6 - 10.2 mg/dL 2021 12:36 PM BROOMMAKING SUPERVISOR [employer] LABORATORY SERVICES - [facility] BUN 23 8 - 23 mg/dL 2021 12:36 PM BROOMMAKING SUPERVISOR [employer] LABORATORY SERVICES - . [facility] CREATININE 0.79 0.51 - 0.95 mg/dL 2021 12:36 PM BROOMMAKING SUPERVISOR [employer] LABORATORY SERVICES - . [facility] GLUCOSE 90 74 - 99 mg/dL 2021 12:36 PM [facility] LABORATORY [facility] - . [facility] TOTAL PROTEIN 5.4(L) 6.7 - 8.6 g/dL 2021 12:36 PM [facility] LABORATORY [facility] - . [facility] ALBUMIN 3.1(L) 3.5 - 5.2 g/dL 2021 12:36 PM [facility] LABORATORY [facility] BILIRUBIN TOTAL 0.2 0.2 - 1.1 mg/dL 2021 12:36 PM [facility] LABORATORY [facility] ALKALINE PHOSPHATASE 91 35 - 104 U/L 2021 12:36 PM [facility] LABORATORY [facility]. [facility] AST 16 <33 U/L 2021 12:36 PM [facility] LABORATORY [facility]. [facility] ALT 18 <34 U/L 2021 12:36 PM [facility] LABORATORY [facility] GFR >60 mL/min/1.7 3 sq meter 2021 12:36 PM [facility] [employer] [facility] Comment: eGFR has not been validated for use in the elderly (> 70 years of age), women, patients with serious co-morbid conditions, or persons with extremes of body size or muscle mass and should also be interpreted with caution in patients with acute kidney failure, dialysis dependent patients, patients reporting exceptional dietary intake (e.g. vegetarian diet, high protein diets, creatine supplementation), and patients with severe liver disease. Based on National Kidney Disease Education Program If patient is , please refer to the GFR result. GFR, >60 mL/min/1.7 3 sq meter 2021 12:36 PM [facility] [employer] LABORATORY [facility] ANION GAP 11 8 - 16 mmol/L 2021 12:36 PM [facility] [employer] [facility] Blood Venipuncture / Unknown 2021 11:57 AM BROOMMAKING SUPERVISOR 2021 11:57 AM [facility] LABORATORY SERVICES [facility] - 2021 12:36 PM [facility] Samples containing indocyanine green cause interferences on Total and/or Direct Bilirubin and must not be measured. Yuliet Gomez NP CHEMISTRY ORDERABLES [facility] - [facility]# [id number] [place] [address] * (ABNORMAL) CBC WITH DIFFERENTIAL (2021 11:57 AM BROOMMAKING SUPERVISOR) WBC 3.1(L) 4.0 - 9.8 K/uL 2021 12:22 PM BROOMMAKING SUPERVISOR [employer] LABORATORY SERVICES - [facility] RBC 3.26(L) 3.90 - 4.90 M/uL 2021 12:22 PM [facility] LABORATORY SERVICES - . [facility] HEMOGLOBIN 9.6(L) 11.8 - 14.8 g/dL 2021 12:22 PM [facility] LABORATORY SERVICES - . [facility] HEMATOCRIT 30.8(L) 35.5 - 44.0 % 2021 12:22 PM [facility] [employer] LABORATORY SERVICES - . [facility] MCV 94.5 82.0 - 99.0 fL 2021 12:22 PM [facility] [employer] LABORATORY SERVICES - . [place] MCH 29.4 27.2 - 32.6 pg 2021 12:22 PM [facility] [employer] LABORATORY SERVICES - . [facility] MCHC 31.2(L) 31.5 - 35.5 g/dL 2021 12:22 PM [facility] [employer] LABORATORY SERVICES - [facility] RDW 13.7 11.5 - 14.5 % 2021 12:22 PM [facility] [employer] LABORATORY SERVICES - . 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 [facility] PLATELETS 213 140 - 350 K/uL 2021 12:22 PM [facility] LABORATORY SERVICES - 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 [place] NEUTROPHILS 48 % 2021 12:22 PM BROOMMAKING SUPERVISOR [employer] LABORATORY SERVICES - . [facility] LYMPHOCYTES 38 % 2021 12:22 PM [facility] [employer] [facility] MONOCYTES 14 % 2021 12:22 PM [facility] [employer] [facility] - . [facility] EOSINOPHILS 0 % 2021 12:22 PM [facility] - . [facility] BASOPHILS 0 % 2021 12:22 PM [facility] IMMATURE GRANULOCYTES 1 % 2021 12:22 PM [facility] LABORATORY [facility] Comment:IG (Immature Granulo cyte) count includes Metamyelocytes, Myelocytes, and Promyelocytes NEUTROPHIL ABSOLUTE 1.50(L) 1.90 - 7.00 K/uL 2021 12:22 PM BROOMMAKING SUPERVISOR [facility] [employer] [facility] - . [facility] LYMPHOCYTE ABSOLUTE 1.17 0.70 - 4.50 K/uL 2021 12:22 PM [facility] [employer] [facility] MONOCYTE ABSOLUTE 0.42 0.10 - 1.30 K/uL 2021 12:22 PM [facility] [employer] [facility] - . [facility] EOSINOPHIL ABSOLUTE 0.00 0.00 - 0.70 K/uL 2021 12:22 PM [facility] [employer] [facility] - . [facility] BASOPHILS ABSOLUTE 0.00 0.00 - 0.20 K/uL 2021 12:22 PM [facility] [employer] [facility] IMMATURE GRANULOCYTES ABSOLUTE 0.02 0.00 - 0.03 K/uL 2021 12:22 PM [facility] [employer] [facility]. [facility] Blood Venipuncture / Unknown 2021 11:57 AM BROOMMAKING SUPERVISOR 2021 11:57 AM BROOMMAKING SUPERVISOR Yuliet Gomez NP HEMATOLOGY ORDERABLE [facility] [employer] [facility] [id number] [address] [place] [address] * (ABNORMAL) URINE CULTURE (04/02/2021 2:46 PM BROOMMAKING SUPERVISOR) CULTURE ESCHERICHIA COLI(A) STEPHEN MCG/ML 04/05/2021 8:05 AM BROOMMAKING SUPERVISOR [employer] LABORATORY SERVICES - . [facility] Urine URINE SPECIMEN OBTAINED BY CLEAN CATCH PROCEDURE / Unknown Collection / Unknown 04/02/2021 2:46 PM BROOMMAKING SUPERVISOR 04/03/2021 1:52 AM BROOMMAKING SUPERVISOR Narrative Organism Antibiotic Method Susceptibility Escherichia coli AMPICILLIN STEPHEN MCG/ML 4 mcg/mL: Susceptible Escherichia coli CEFAZOLIN STEPHEN MCG/ML <=4 mcg/mL: Susceptible Escherichia coli CEFUROXIME STEPHEN MCG/ML Susceptible Escherichia coli CEPHALEXIN STEPHEN MCG/ML Susceptible Escherichia coli CEFPODOXIME STEPHEN MCG/ML Susceptible Escherichia coli CEFACLOR STEPHEN MCG/ML Susceptible Escherichia coli CEFDINIR STEPHEN MCG/ML Susceptible Escherichia coli CIPROFLOXACIN STEPHEN MCG/ML <=0.25 mcg/mL: Susceptible Escherichia coli GENTAMICIN STEPHEN MCG/ML <=1 mcg/mL: Susceptible Escherichia coli NITROFURANTOIN STEPHEN MCG/ML <=16 mcg/mL: Susceptible Escherichia coli TRIMETHOPRIM/ SULFAMETHOXAZOLE STEPHEN MC G/ML <=20 mcg/mL: Susceptible Be Rangel DO MICROBIOLOGY - [facility] ORDERABLES [facility] SERVICES [facility]# [id number] [address] [place], [place] [id number] * (ABNORMAL) URINALYSIS WITH REFLEX CULTURE (04/02/2021 2:46 PM BROOMMAKING SUPERVISOR) COLOR UA Yellow Pale to Dark Yellow 04/03/2021 1:52 AM [facility] [employer] LABORATORY SERVICES - [facility] CLARITY UA Clear Clear 04/03/2021 1:52 AM BROOMMAKING SUPERVISOR [employer] SERVICES - . [facility] SPECIFIC GRAVITY UA 1.018 1.003 - 1.035 04/03/2021 1:52 AM [facility] [employer] [facility] PH UA 5.0 5.0 - 8.0 04/03/2021 1:52 AM [facility] [employer] [facility] LEUKOCYTE ESTERASE UA 2+(A) Negative 04/03/2021 1:52 AM [facility] [employer] [facility] NITRITE UA Positive(A) Negative 04/03/2021 1:52 AM [facility] [employer] [facility] PROTEIN UA Negative Negative 04/03/2021 1:52 AM [facility] GLUCOSE UA Negative Negative 04/03/2021 1:52 AM [facility] KETONES UA Negative Negative 04/03/2021 1:52 AM [facility] UROBILINOGEN UA Normal <2.0 mg/dL 1:52 AM [facility] BILIRUBIN UA Negative Negative 04/03/2021 1:52 AM [facility] BLOOD UA 2+(A) Negative 04/03/2021 1:52 AM [facility] WBC UA 51-100(A) 0 - 2 /hpf 04/03/2021 1:52 AM [facility] RBC UA 11-25(A) 0 - 2 /hpf 04/03/2021 1:52 AM [facility] BACTERIA UA 1+(A) Negative /hpf 04/03/2021 1:52 AM [facility] WBC CLUMPS Present(A) Absent 04/03/2021 1:52 AM [facility] Urine URINE SPECIMEN OBTAINED BY CLEAN CATCH PROCEDURE / Unknown Collection / Unknown 04/02/2021 2:46 PM BROOMMAKING SUPERVISOR 04/03/2021 1:08 AM BROOMMAKING SUPERVISOR [facility] - 04/03/2021 1:52 AM BROOMMAKING SUPERVISOR Based on results, a urine culture has been reflexed. Be Rangel DO URINE ORDERABLES [facility]# [id number] [address] [facility] [place] [id number] * PHOSPHORUS (04/02/2021 4:34 AM BROOMMAKING SUPERVISOR) PHOSPHORUS 3.9 2.5 - 4.5 mg/dL 04/02/2021 12:21 PM [facility] Blood Venipuncture / Unknown 04/02/2021 4:34 AM BROOMMAKING SUPERVISOR 04/02/2021 11:13 AM BROOMMAKING SUPERVISOR Yuliet Gomez INFRASTRUCTURE ARCHITECT CHEMISTRY ORDERABLES Performing Organization Address City/[facility]/ZIP Co de Phone Number [facility] CLIA# [id number] [address] [place] [address] * MAGNESIUM LEVEL (04/02/2021 4:34 AM BROOMMAKING SUPERVISOR) MAGNESIUM 2.2 1.6 - 2.4 mg/dL 04/02/2021 12:21 PM BROOMMAKING SUPERVISOR [facility] [employer] [facility] Blood Venipuncture / Unknown 04/02/2021 4:34 AM BROOMMAKING SUPERVISOR 04/02/2021 11:13 AM BROOMMAKING SUPERVISOR Yuliet Gomez INFRASTRUCTURE ARCHITECT CHEMISTRY ORDERABLES Performing Organization Address [facility] Co de Phone Number [facility] [employer] [facility] CLIA# [id number] [address] [place] [address] * C-REACTIVE PROTEIN (04/02/2021 4:34 AM BROOMMAKING SUPERVISOR) CRP <3.0 <5.0 mg/L 04/02/2021 12:21 PM BROOMMAKING SUPERVISOR [facility] [employer] [facility] Blood Venipuncture / Unknown 04/02/2021 4:34 AM BROOMMAKING SUPERVISOR 04/02/2021 11:13 AM BROOMMAKING SUPERVISOR Yuliet Gomez INFRASTRUCTURE ARCHITECT CHEMISTRY ORDERABLES Performing Organization Address City/[facility]/ZIP Co de Phone Number [facility] [employer] [facility] CLIA# [id number] [address] [place] [address] * (ABNORMAL) COMPREHENSIVE METABOLIC PANEL (04/02/2021 4:34 AM BROOMMAKING SUPERVISOR) SODIUM 141 136 - 145 mmol/L 04/02/2021 12:21 PM BROOMMAKING SUPERVISOR [facility] [employer] [facility] POTASSIUM 3.7 3.5 - 5.0 mmol/L 04/02/2021 12:21 PM BROOMMAKING SUPERVISOR [facility] CHLORIDE 107 98 - 107 mmol/L 04/02/2021 12:21 PM [facility] [employer] LABORATORY SERVICES - [facility] CO2 24 22 - 29 mmol/L 04/02/2021 12:21 PM [facility] [employer] LABORATORY SERVICES - [facility] CALCIUM 8.8 8.6 - 10.2 mg/dL 04/02/2021 12:21 PM [facility] [employer] LABORATORY SERVICES - [facility] BUN 30(H) 8 - 23 mg/dL 04/02/2021 12:21 PM [facility] [employer] LABORATORY SERVICES - [facility] CREATININE 0.71 0.51 - 0.95 mg/dL 04/02/2021 12:21 PM [facility] [employer] LABORATORY SERVICES - [facility] GLUCOSE 103(H) 74 - 99 mg/dL 04/02/2021 12:21 PM [facility] [employer] LABORATORY SERVICES - . [place] TOTAL PROTEIN 5.3(L) 6.7 - 8.6 g/dL 04/02/2021 12:21 PM [facility] [employer] LABORATORY SERVICES - . [place] ALBUMIN 3.0(L) 3.5 - 5.2 g/dL 04/02/2021 12:21 PM [facility] [employer] LABORATORY SERVICES - . [place] BILIRUBIN TOTAL 0.3 0.2 - 1.1 mg/dL 04/02/2021 12:21 PM [facility] [employer] LABORATORY SERVICES - . [place] ALKALINE PHOSPHATASE 77 35 - 104 U/L 04/02/2021 12:21 PM [facility] [employer] LABORATORY SERVICES - . [place] AST 25 <33 U/L 04/02/2021 12:21 PM [facility] [employer] LABORATORY SERVICES - . [place] ALT 41(H) <34 U/L 04/02/2021 12:21 PM [facility] [employer] LABORATORY SERVICES - . [place] GFR >60 mL/min/1.7 3 sq meter 04/02/2021 12:21 PM BROOMMAKING SUPERVISOR [employer] LABORATORY SERVICES - . [place] Comment: eGFR has not been validated for use in the elderly (> 70 years of age), women, patients with serious co-morbid conditions, or persons with extremes of body size or muscle mass and should also be interpreted with caution in patients with acute kidney failure, dialysis dependent patients, patients reporting exceptional dietary intake (e.g. vegetarian diet, high protein diets, creatine supplementation), and patients with severe liver disease. Based on National Kidney Disease Education Program If patient is , please refer to the GFR result. GFR, >60 mL/min/1.7 3 sq meter 04/02/2021 12:21 PM [facility] [employer] [facility] ANION GAP 10 8 - 16 mmol/L 04/02/2021 12:21 PM [facility] [employer] [facility] Blood Venipuncture / Unknown 04/02/2021 4:34 AM BROOMMAKING SUPERVISOR 04/02/2021 11:13 AM BROOMMAKING SUPERVISOR Narrative [facility] [employer] [facility] - 04/02/2021 12:21 PM BROOMMAKING SUPERVISOR Samples containing indocyanine green cause interferences on Total and/or Direct Bilirubin and must not be measured. Yuliet Gomez NP CHEMISTRY ORDERABLES [facility] [employer] [facility]# [id number] [address] [place] [address] * (ABNORMAL) CBC WITH DIFFERENTIAL (04/02/2021 4:34 AM BROOMMAKING SUPERVISOR) WBC 3.6(L) 4.0 - 9.8 K/uL 04/02/2021 11:55 AM [facility] [employer] [facility] RBC 3.30(L) 3.90 - 4.90 M/uL 04/02/2021 11:55 AM [facility] [employer] [facility] HEMOGLOBIN 9.8(L) 11.8 - 14.8 g/dL 04/02/2021 11:55 AM [facility] [employer] [facility] HEMATOCRIT 30.7(L) 35.5 - 44.0 % 04/02/2021 11:55 AM [facility] [employer] [facility] MCV 93.0 82.0 - 99.0 fL 04/02/2021 11:55 AM [facility] [employer] [facility] MCH 29.7 27.2 - 32.6 pg 04/02/2021 11:55 AM [facility] [employer] [facility] MCHC 31.9 31.5 - 35.5 g/dL 04/02/2021 11:55 AM BROOMMAKING SUPERVISOR [facility]AT[facility] SERVICES - [facility] RDW 13.6 11.5 - 14.5 % 04/02/2021 11:55 AM BROOMMAKING SUPERVISOR [employer] LABORATORY SERVICES - [facility] RDW-STDEV 45.5 37.1 - 48.7 fL 04/02/2021 11:55 AM BROOMMAKING SUPERVISOR [employer] LABORATORY SERVICES - [facility] PLATELETS 206 140 - 350 K/uL 04/02/2021 11:55 AM [employer] LABORATORY SERVICES - [facility] MPV 9.9 9.3 - 12.4 fL 04/02/2021 11:55 AM [facility] LABORATORY SERVICES - [facility] NEUTROPHILS 64 % 04/02/2021 11:55 AM BROOMMAKING SUPERVISOR [employer] LABORATORY SERVICES - [facility] LYMPHOCYTES 26 % 04/02/2021 11:55 AM [facility]ATORY SERVICES - [facility] MONOCYTES 9 % 04/02/2021 11:55 AM [facility] - [facility] EOSINOPHILS 0 % 04/02/2021 11:55 AM [facility] - [facility] BASOPHILS 0 % 04/02/2021 11:55 AM [facility]AT[facility] - [facility] IMMATURE GRANULOCYTES 1 % 04/02/2021 11:55 AM [employer] [facility]AT[facility] - [facility] Comment:IG (Immature Granulo cyte) count includes Metamyelocytes, Myelocytes, and Promyelocytes NEUTROPHIL ABSOLUTE 2.33 1.90 - 7.00 K/uL 04/02/2021 11:55 AM [facility] LABORATORY SERVICES - [facility] LYMPHOCYTE ABSOLUTE 0.94 0.70 - 4.50 K/uL 04/02/2021 11:55 AM [facility]ATORY SERVICES - [facility] MONOCYTE ABSOLUTE 0.33 0.10 - 1.30 K/uL 04/02/2021 11:55 AM [facility]ATORY SERVICES - [facility] EOSINOPHIL ABSOLUTE 0.00 0.00 - 0.70 K/uL 04/02/2021 11:55 AM [facility] BASOPHILS ABSOLUTE 0.00 0.00 - 0.20 K/uL 04/02/2021 11:55 AM [facility] IMMATURE GRANULOCYTES ABSOLUTE 0.02 0.00 - 0.03 K/uL 04/02/2021 11:55 AM [facility] Blood Venipuncture / Unknown 04/02/2021 4:34 AM [employer]PER[employer] 04/02/2021 11:13 AM [employer] SUPERVISOR Yuliet Gomez NP HEMATOLOGY ORDERABLE S [facility] CLIA# [id number] [address] [facility] [place] [address] * XR CHEST PA OR AP 1 VW (03/28/2021 7:23 PM [employer]OOMMAKING SUPERVISOR) Anatomical Region Laterality Modality Chest Other Yuliet Gomez NP DIAGNOSTIC IMAGING O RDERABLES * POC COVID-19 RAPID MOLECULAR NAAT (03/28/2021 10:20 AM BROOMMAKING SUPERVISOR) COVID-19 NAAT POC Not Detected Not Detected [facility] INTER[facility] KIT QC POC Pass Pass [facility] KIT LOT NUMBER POC [phone] [facility] KIT EXPIRATION DATE POC 11/13/2021 [facility] 03/28/2021 10:2 0 AM [employer]OMMAKING SUPERVISOR Be Rangel DO POINT OF CARE JIMENEZ TING Performing Organization Address City/[facility]/ZIP Co de Phone Number [facility] CLIA # [id number] [place] [address] * (ABNORMAL) COMPREHENSIVE METABOLIC PANEL (03/28/2021 5:04 AM [employer]OOMMAKING SUPERVISOR) SODIUM 140 136 - 145 mmol/L 03/28/2021 11:04 AM [employer]OMMAKING SUPERVISOR [facility] POTASSIUM 4.1 3.5 - 5.0 mmol/L 03/28/2021 11:04 AM BROOMMAKING SUPERVISOR [facility] CHLORIDE 108(H) 98 - 107 mmol/L 03/28/2021 11:04 AM BROOMMAKING SUPERVISOR [facility] CO2 24 22 - 29 mmol/L 03/28/2021 11:04 AM BROOMMAKING SUPERVISOR [facility] . [facility] CALCIUM 8.3(L) 8.6 - 10.2 mg/dL 03/28/2021 11:04 AM [facility] [employer] LABORATORY SERVICES - . [place] BUN 25(H) 8 - 23 mg/dL 03/28/2021 11:04 AM [facility] [employer] LABORATORY [facility] - . [place] CREATININE 0.68 0.51 - 0.95 mg/dL 03/28/2021 11:04 AM [facility] [employer] LABORATORY SERVICES - [facility] [place] GLUCOSE 299(H) 74 - 99 mg/dL 03/28/2021 11:04 AM [facility] [employer] LABORATORY [facility] - . [place] TOTAL PROTEIN 4.8(L) 6.7 - 8.6 g/dL 03/28/2021 11:04 AM [facility] [employer] SERVICES - . [place] ALBUMIN 2.8(L) 3.5 - 5.2 g/dL 03/28/2021 11:04 AM [facility] [employer] LABORATORY [facility] - . [place] BILIRUBIN TOTAL <0.2(L) 0.2 - 1.1 mg/dL 03/28/2021 11:04 AM [facility] [employer] LABORATORY SERVICES - . [place] ALKALINE PHOSPHATASE 63 35 - 104 U/L 03/28/2021 11:04 AM [facility] [employer] [facility] - . [place] AST 15 <33 U/L 03/28/2021 11:04 AM [employer] SERVICES - . [place] ALT 15 <34 U/L 03/28/2021 11:04 AM BROOMMAKING SUPERVIS[employer] [facility] - . [place] GFR >60 mL/min/1.7 3 sq meter 03/28/2021 11:04 AM [employer] LABORATORY SERVICES - . [place] Comment: eGFR has not been validated for use in the elderly (> 70 years of age), women, patients with serious co-morbid conditions, or persons with extremes of body size or muscle mass and should also be interpreted with caution in patients with acute kidney failure, dialysis dependent patients, patients reporting exceptional dietary intake (e.g. vegetarian diet, high protein diets, creatine supplementation), and patients with severe liver disease. Based on National Kidney Disease Education Program If patient is , please refer to the GFR result. GFR, >60 mL/min/1.7 3 sq meter 03/28/2021 11:04 AM [facility] LABORATORY SERVICES - . [place] ANION GAP 8 8 - 16 mmol/L 03/28/2021 11:04 AM [facility] [employer] [facility] Blood Venipuncture / Unknown 03/28/2021 5:04 AM BROOMMAKING SUPERVISOR 03/28/2021 10:21 AM [facility] [employer] [facility] - 03/28/2021 11:04 AM [facility] Samples containing indocyanine green cause interferences on Total and/or Direct Bilirubin and must not be measured. Yuliet Gomez NP CHEMISTRY ORDERABLES [facility] [employer] [facility] CLIA# [id number] [address] [facility] [address] * (ABNORMAL) CBC WITH DIFFERENTIAL (03/28/2021 5:04 AM BROOMMAKING SUPERVISOR) Pathologist [facility] WBC 4.4 4.0 - 9.8 K/uL 03/28/2021 10:37 AM [facility] [employer] [facility] RBC 3.18(L) 3.90 - 4.90 M/uL 03/28/2021 10:37 AM [facility] [employer] [facility] HEMOGLOBIN 9.3(L) 11.8 - 14.8 g/dL 03/28/2021 10:37 AM [facility] [employer] [facility]. [place] HEMATOCRIT 29.5(L) 35.5 - 44.0 % 03/28/2021 10:37 AM [facility] [employer] [facility] MCV 92.8 82.0 - 99.0 fL 03/28/2021 10:37 AM [facility] [employer] [facility] MCH 29.2 27.2 - 32.6 pg 03/28/2021 10:37 AM [facility] [employer] [facility] MCHC 31.5 31.5 - 35.5 g/dL 03/28/2021 10:37 AM [facility] [employer] [facility] RDW 13.2 11.5 - 14.5 % 03/28/2021 10:37 AM [facility] [employer] [facility] RDW-STDEV 45.0 37.1 - 48.7 fL 03/28/2021 10:37 AM [facility] [employer] [facility] PLATELETS 215 140 - 350 K/uL 03/28/2021 10:37 AM [facility] [employer] [facility] . [place] MPV 10.2 9.3 - 12.4 fL 03/28/2021 10:37 AM [facility] [employer] [facility] [place] NEUTROPHILS 64 % 03/28/2021 10:37 AM [facility] [employer] [facility] [place] LYMPHOCYTES 26 % 03/28/2021 10:37 AM [facility] [employer] [facility] [place] MONOCYTES 10 % 03/28/2021 10:37 AM [facility] [employer] [facility] [place] EOSINOPHILS 0 % 03/28/2021 10:37 AM [facility] [employer] SERVICES - [facility] [place] BASOPHILS 0 % 03/28/2021 10:37 AM [facility] [employer] [facility] [place] IMMATURE GRANULOCYTES 1 % 03/28/2021 10:37 AM [facility] [employer] [facility] - . [place] Comment:IG (Immature Granulo cyte) count includes Metamyelocytes, Myelocytes, and Promyelocytes NEUTROPHIL ABSOLUTE 2.83 1.90 - 7.00 K/uL 03/28/2021 10:37 AM [facility] [employer] [facility] - . [facility] LYMPHOCYTE ABSOLUTE 1.15 0.70 - 4.50 K/uL 03/28/2021 10:37 AM [facility] [employer] [facility] [place] MONOCYTE ABSOLUTE 0.42 0.10 - 1.30 K/uL 03/28/2021 10:37 AM [facility] [employer] [facility] [place] EOSINOPHIL ABSOLUTE 0.00 0.00 - 0.70 K/uL 03/28/2021 10:37 AM [facility] [employer] [facility] [place] BASOPHILS ABSOLUTE 0.00 0.00 - 0.20 K/uL 03/28/2021 10:37 AM [facility] [employer] [facility] IMMATURE GRANULOCYTES ABSOLUTE 0.04(H) 0.00 - 0.03 K/uL 03/28/2021 10:37 AM [facility] [employer] [facility] Blood Venipuncture / Unknown 03/28/2021 5:04 AM [employer]OMMAKING SUPERVISOR 03/28/2021 10:21 AM [employer]MA[employer] SUPERVISOR Yuliet Gomez NP HEMATOLOGY ORDERABLE S [facility]# [id number] [address] [place] [address] * (ABNORMAL) VITAMIN D 25 HYDROXY (03/28/2021 5:04 AM BROOMMAKING SUPERVISOR) [facility] VITAMIN D TOTAL (25OH) 22(L) 30 - 100 ng/mL 03/28/2021 11:20 AM [facility] Blood Venipuncture / Unknown 03/28/2021 5:04 AM BROOMMAKING SUPERVISOR 03/28/2021 10:21 AM BROOMMAKING SUPERVISOR Narrative [facility] - 03/28/2021 11:20 AM [facility] Interpretive Data Chart: Deficient: ? 0 - 20 ng/mL Insufficient: ?21 - 29 ng/mL Sufficient: ?30 - 100 ng/mL Increased Risk of Hypercalciuria: ??>100 ng/ml Toxic: ? >150 ng/ml Yuliet Gomez NP CHEMISTRY ORDERABLES [facility]# [id number] [address] [place] [address] * VITAMIN B12 LEVEL (03/28/2021 5:04 AM [facility]) [facility] VITAMIN B12 506 232-1,245 pg/mL 03/28/2021 11:20 AM [facility] Comment:It has been reported that between 5 to 10% of patients with values between 200 and 400 pg/mL may experience neuropsychiatric and hematologic abnormalities due to occult B12 deficiency. Less than 1% of patients with values above 400 pg/mL will have symptoms. Blood Venipuncture / Unknown 03/28/2021 5:04 AM BROOMMAKING SUPERVISOR 03/28/2021 10:21 AM [employer]MAKING SUPERVISOR Yuliet Gomez NP CHEMISTRY ORDERABLES Performing Organization Address [facility]/ZIP Co de Phone Number [facility] CLIA# [id number] [address] [place] [address] * TSH REFLEXIVE (03/28/2021 5:04 AM BROOMMAKING SUPERVISOR) TSH 2.28 0.27 - 4.20 uIU/mL 03/28/2021 11:11 AM BROOMMAKING SUPERVIS[facility] [employer] [facility] Blood Venipuncture / Unknown 03/28/2021 5:04 AM BROOMMAKING SUPERVISOR 03/28/2021 10:21 AM BROOMMAKING SUPERVISOR Yuliet Gomez NP CHEMISTRY ORDERABLES Performing Organization Address [facility] Co de Phone Number [facility] [employer] [id number] [address] [place] [address] * URINE CULTURE (03/28/2021 1:24 AM BROOMMAKING SUPERVISOR) CULTURE No growth at 24 hours 03/29/2021 10:58 AM BROOMMAKING SUPERVIS[facility] [employer] [facility] Urine URINE SPECIMEN / Unknown Collection / Unknown 03/28/2021 1:24 AM BROOMMAKING SUPERVISOR 03/28/2021 10:35 AM BROOMMAKING SUPERVISOR Yuliet Gomez NP MICROBIOLOGY - GENER AL ORDERABLES Performing Organization Address [facility] Co de Phone Number [facility] [employer] [facility] CLIA# [id number] [address] [place] [address] * (ABNORMAL) URINALYSIS WITH REFLEX CULTURE (03/28/2021 1:24 AM BROOMMAKING SUPERVISOR) COLOR UA Yellow Pale to Dark Yellow 03/28/2021 10:35 AM BROOMMAKING SUPERVISOR [facility] [employer] [facility] CLARITY UA Clear Clear 03/28/2021 10:35 AM [facility] [employer] LABORATORY [facility] SPECIFIC GRAVITY UA 1.024 1.003 - 1.035 03/28/2021 10:35 AM [facility] [employer] [facility] PH UA 5.0 5.0 - 8.0 03/28/2021 10:35 AM [facility] [employer] LABORATORY [facility] LEUKOCYTE ESTERASE UA Trace(A) Negative 03/28/2021 10:35 AM [facility] [employer] LABORATORY SERVICES - [facility] Comment:For patient s with 'trace' results, consider ordering a culture and sensitivity if clinically indicated. NITRITE UA Negative Negative 03/28/2021 10:35 AM [facility] [employer] [facility] PROTEIN UA Negative Negative 03/28/2021 10:35 AM [facility] [employer] [facility] GLUCOSE UA Negative Negative 03/28/2021 10:35 AM [facility] [employer] [facility] KETONES UA Negative Negative 03/28/2021 10:35 AM [facility] [employer] [facility] UROBILINOGEN UA 2.0(A) <2.0 mg/dL 10:35 AM [facility] [employer] [facility] BILIRUBIN UA Negative Negative 03/28/2021 10:35 AM [facility] [employer] [facility] BLOOD UA 2+(A) Negative 03/28/2021 10:35 AM [facility] [employer] [facility] WBC UA 6-10(A) 0 - 2 /hpf 03/28/2021 10:35 AM [facility] [employer] LABORATORY [facility] RBC UA 51-100(A) 0 - 2 /hpf 03/28/2021 10:35 AM [facility] [employer] [facility] BACTERIA UA Negative Negative /hpf 03/28/2021 10:35 AM [facility] [employer] [facility] EPITHELIAL CELLS, URINE 0-5 0 - 5 /hpf 03/28/2021 10:35 AM [facility] [employer] [facility] Urine URINE SPECIMEN / Unknown Collection / Unknown 03/28/2021 1:24 AM BROOMMAKING SUPERVISOR 03/28/2021 10:17 AM [facility] [employer] LABORATORY SERVICES - [facility] - 03/28/2021 10:35 AM BROOMMAKING SUPERVISOR Based on results, a urine culture has been reflexed. 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 Cervical spondylosis with radiculopathy Cervical spondylosis with myelopathy Cord compression Unspecified disease of spinal cord Neck pain Cervicalgia Cervical spondylosis with radiculopathy Cervical spondylosis with myelopathy Neurological deficit present Other symptoms involving nervous and musculoskeletal systems Hyponatremia Hyposmolality and/or hyponatremia Urinary retention Retention of urine, unspecified Cord compression Unspecified disease of spinal cord HTN (hypertension) Unspecified essential hypertension GERD (gastroesophageal reflux disease) Esophageal reflux Arthritis Arthropathy, unspecified, site unspecified documented in this encounter Administered Medications Inactive Administered Medications - up to 3 most recent administrations Medication Order MAR Action Action Date Dose Rate Site acetaminophen (TYLENOL) tablet 650 mg 650 mg, Oral, EVERY 6 HOURS PRN, Starting on Jerilyn 03/27/21 at 2247, Until Wed03/31/21 at 0940, Other (See Comment), See admin instructions, Routine Given 03/31/2021 9:11 AM BROOMMAKING SUPERVISOR 650 mg Given 03/31/2021 5:07 AM BROOMMAKING SUPERVISOR 650 mg Given 03/30/2021 8:37 PM BROOMMAKING SUPERVISOR 650 mg acetaminophen (TYLENOL) tablet 650 mg 650 mg, Oral, EVERY 4 HOURS PRN, Starting on Wed03/31/21 at 0945, Until Wed04/18/21 at 1552, Other (See Comment), See admin instructions, Routine Given 04/16/2021 12:35 PM BROOMMAKING SUPERVISOR 650 mg Given 04/16/2021 5:30 AM BROOMMAKING SUPERVISOR 650 mg Given 04/14/2021 8:13 PM BROOMMAKING SUPERVISOR 650 mg bisacodyl (THE MAGIC BULLET) rectal suppository 10 mg 10 mg, Rectal, DAILY, First dose on Wed03/28/21 at 1900, Until Discontinued, Routine Given 04/17/2021 7:0 0 PM BROOMMAKING SUPERVISOR 10 mg Given 04/14/2021 7:41 PM BROOMMAKING SUPERVISOR 10 mg Given 04/13/2021 8:30 PM BROOMMAKING SUPERVISOR 10 mg qelthosmbb-oalybierliidr-omciqrut (FIORICET) 50-325-40 mg per tablet 1 Tablet 1 Tablet, Oral, EVERY 6 HOURS PRN, Starting on Wed04/03/21 at 0727, Until Wed04/18/21 at 1552, Migraine, Routine Given 04/18/2021 1:53 AM BROOMMAKING SUPERVISOR 1 Tablet Given 04/17/2021 5:40 PM BROOMMAKING SUPERVISOR 1 Tablet Given 04/16/2021 10:09 PM BROOMMAKING SUPERVISOR 1 Tablet docusate sodium (COLACE) capsule 100 mg 100 mg, Oral, TWO TIMES DAILY, First dose on Wed03/27/21 at 2300, Until Discontinued, Routine Given 04/18/2021 8:38 AM BROOMMAKING SUPERVISOR 100 mg Given 04/17/2021 9:41 PM BROOMMAKING SUPERVISOR 100 mg Given 04/17/2021 9:24 AM BROOMMAKING SUPERVISOR 100 mg enoxaparin (LOVENOX) injection 40 mg 40 mg, subCUT, EVERY 24 HOURS, First dose on Wed03/28/21 at 2000, Until Discontinued, Routine, Indication: Prophylaxis of VTE, Dose to be adjusted per facility protocol? Yes Given 04/17/2021 9:40 PM BROOMMAKING SUPERVISOR 40 mg Abdomen, Right Lower Quadrant Given 04/16/2021 8:14 PM BROOMMAKING SUPERVISOR 40 mg Ab domen, Left Lower Quadrant Given 04/15/2021 9:42 PM BROOMMAKING SUPERVISOR 40 mg Ab domen, Right Lower Quadrant fludrocortisone (FLORINEF) tablet 0.2 mg 0.2 mg, Oral, DAILY, First dose on Wed03/28/21 at 0900, Until Discontinued, Routine Given 04/18/2021 8:3 8 AM BROOMMAKING SUPERVISOR 0.2 mg Given 04/17/2021 9:23 AM BROOMMAKING SUPERVISOR 0.2 mg Given 04/16/2021 8:43 AM BROOMMAKING SUPERVISOR 0.2 mg gabapentin (NEURONTIN) capsule 200 mg 200 mg, Oral, EVERY 8 HOURS, First dose on Wed03/27/21 at 2300, Until Discontinued, Routine, Previous Med: gabapentin (NEURONTIN) 100 mg capsule - Orig Sig - Take 2 Capsules (200 mg) by mouth every 8 hours. Given 04/18/2021 1:00 PM BROOMMAKING SUPERVISOR 200 mg Given 04/18/2021 5:07 AM BROOMMAKING SUPERVISOR 200 mg Given 04/17/2021 9:41 PM BROOMMAKING SUPERVISOR 200 mg Lidocaine 4 % topical patch 1 Patch 1 Patch, Topical, DAILY, 60 doses, First dose on Wed03/31/21 at 0930, Last dose on Wed05/29/21 at 0900, Routine Applied 03/31/2021 10:30 AM BROOMMAKING SUPERVISOR 1 Patch Shou lder, Left melatonin tablet 6 mg 6 mg, Oral, DAILY AT BEDTIME, First dose on Wed04/01/21 at 2100, Until Discontinued, Routine Given 04/02/2021 8:02 PM BROOMMAKING SUPERVISOR 6 mg Given 04/01/2021 8:04 PM BROOMMAKING SUPERVISOR 6 mg melatonin tablet 9 mg 9 mg, Oral, DAILY AT BEDTIME, First dose (after last modification) on Wed04/03/21 at 2100, Until Discontinued, Routine Given 04/03/2021 8:36 PM BROOMMAKING SUPERVISOR 9 mg methyl salicylate-menthol (BENGAY) topical cream Topical, EVERY 6 HOURS PRN, Starting on Wed03/31/21 at 1318, Until Wed04/18/21 at 1552, Discomfort, Routine Given 04/13/2021 9:00 PM BROOMMAKING SUPERVISOR Other (Comment) midodrine (PROAMATINE) tablet 10 mg 10 mg, Oral, TWO TIMES DAILY, First dose (after last modification) on Wed04/02/21 at 0500, Until Discontinued, Routine Given 04/08/2021 5:55 AM BROOMMAKING SUPERVISOR 10 mg Given 04/07/2021 12:33 PM BROOMMAKING SUPERVISOR 10 mg Given 04/06/2021 2:08 PM BROOMMAKING SUPERVISOR 10 mg midodrine (PROAMATINE) tablet 10 mg 10 mg, Oral, THREE TIMES DAILY, First dose (after last modification) on Wed04/08/21 at 1300, Until Discontinued, Routine Given 2021 12:49 PM BROOMMAKING SUPERVISOR 10 mg midodrine (PROAMATINE) tablet 10 mg 10 mg, Oral, TWO TIMES DAILY, First dose (after last modification) on Wed04/10/21 at 0600, Until Discontinued, Routine Given 04/18/2021 5:07 AM BROOMMAKING SUPERVISOR 10 mg Given 04/17/2021 5:27 AM BROOMMAKING SUPERVISOR 10 mg Given 04/16/2021 12:34 PM BROOMMAKING SUPERVISOR 10 mg midodrine (PROAMATINE) tablet 15 mg 15 mg, Oral, EVERY 8 HOURS, First dose on Wed03/27/21 at 2300, Until Discontinued, Routine Given 03/31/2021 1:0 0 PM BROOMMAKING SUPERVISOR 15 mg Given 03/30/2021 1:35 PM BROOMMAKING SUPERVISOR 15 mg Given 03/30/2021 5:40 AM BROOMMAKING SUPERVISOR 15 mg midodrine (PROAMATINE) tablet 15 mg 15 mg, Oral, TWO TIMES DAILY, First dose (after last modification) on Wed04/01/21 at 0500, Until Discontinued, Routine Given 04/01/2021 1:38 PM BROOMMAKING SUPERVISOR 15 mg nitrofurantoin (MACROBID) capsule 100 mg 100 mg, Oral, TWO TIMES DAILY WITH MEALS, 14 doses, First dose on Wed04/03/21 at 1700, Last dose on Wed04/10/21 at 0800, Routine, Antibiotic Indication: Urinary Tract Infection(UTI) / Infection, Is sepsis suspected? Unlikely Given 04/10/2021 8:06 AM BROOMMAKING SUPERVISOR 100 mg Given 2021 5:29 PM BROOMMAKING SUPERVISOR 100 mg Given 2021 8:01 AM BROOMMAKING SUPERVISOR 100 mg nitrofurantoin (MACROBID) capsule 100 mg 100 mg, Oral, TWO TIMES DAILY WITH MEALS, 14 doses, First dose on Wed04/14/21 at 1700, Last dose on Wed04/21/21 at 0800, Routine, Antibiotic Indication: Urinary Tract Infection(UTI) / Infection, Is sepsis suspected? Unlikely Given 04/18/2021 8:38 AM BROOMMAKING SUPERVISOR 100 mg Feeding Started 04/17/2021 5:38 PM BROOMMAKING SUPERVISOR 100 mg Given 04/17/2021 9:23 AM BROOMMAKING SUPERVISOR 100 mg ondansetron (ZOFRAN ODT) tablet 4 mg 4 mg, Oral, EVERY 6 HOURS PRN, Starting on Wed03/27/21 at 2247, Until Wed04/18/21 at 1552, Nausea/Emesis, Routine Given 04/08/2021 6:13 PM BROOMMAKING SUPERVISOR 4 mg pantoprazole (PROTONIX) tablet 40 mg 40 mg, Oral, DAILY BEFORE BREAKFAST, First dose on Wed03/28/21 at 0600, Until Discontinued, Routine, Indication: Gastroesophageal reflux disease (GERD) Given 04/18/2021 5:07 AM BROOMMAKING SUPERVISOR 40 mg Given 04/17/2021 5:27 AM BROOMMAKING SUPERVISOR 40 mg Given 04/16/2021 5:28 AM BROOMMAKING SUPERVISOR 40 mg phenazopyridine tablet 190 mg 190 mg (rounded from 200 mg), Oral, THREE TIMES DAILY AFTER MEALS, 9 doses, First dose on Wed04/14/21 at 1000, Last dose on Wed04/16/21 at 1800, Routine Given 04/16/2021 5:11 PM BROOMMAKING SUPERVISOR 190 mg Given 04/16/2021 12:34 PM BROOMMAKING SUPERVISOR 190 mg Given 04/16/2021 8:43 AM BROOMMAKING SUPERVISOR 190 mg polyethylene glycol (MIRALAX) packet 17 Gram 17 Gram, Oral, DAILY, First dose on Wed03/28/21 at 0900, Until Discontinued, Routine Given 04/18/2021 8:38 AM BROOMMAKING SUPERVISOR 17 Grams Given 04/10/2021 8:05 AM BROOMMAKING SUPERVISOR 17 Grams Given 2021 8:01 AM BROOMMAKING SUPERVISOR 17 Grams potassium chloride (KLOR-CON) SR tablet 40 mEq 40 mEq, Oral, TWO TIMES DAILY WITH MEALS, 2 doses, First dose on Wed04/15/21 at 1700, Last dose on Wed04/16/21 at 0800, Routine Given 04/16/2021 8:43 AM BROOMMAKING SUPERVISOR 40 mEq Given 04/15/2021 4:42 PM BROOMMAKING SUPERVISOR 40 mEq sodium chloride tablet 1 Gram 1 Gram, Oral, TWO TIMES DAILY WITH MEALS, First dose on Wed04/09/21 at 1700, Until Discontinued, Routine, On hold since Wed04/10/2021 at 1324 until manually unheld Given 04/10/2021 8:06 AM BROOMMAKING SUPERVISOR 1 G nagi Given 2021 5:29 PM BROOMMAKING SUPERVISOR 1 Gram sodium chloride tablet 2 Gram 2 Gram, Oral, EVERY 8 HOURS, First dose on Wed03/27/21 at 2300, Until Discontinued, Routine, Previous Med: sodium chloride 1 gram tablet - Orig Sig - Take 1 Tablet (1 Gram) by mouth every 8 hours. , On hold since Wed04/08/2021 at 1440 until manually unheld Given 04/08/2021 5:55 AM BROOMMAKING SUPERVISOR 2 Grams Given 04/07/2021 9:00 PM BROOMMAKING SUPERVISOR 2 Grams Given 04/07/2021 12:33 PM BROOMMAKING SUPERVISOR 2 Grams tiZANidine (ZANAFLEX) tablet 4 mg 4 mg, Oral, EVERY 8 HOURS, First dose on Wed03/27/21 at 2300, Until Discontinued, Routine, Previous Med: tiZANidine (ZANAFLEX) 4 mg Tablet - Orig Sig - Take 1 Tablet (4 mg) by mouth every 6 hours as needed for Spasm. Given 03/31/2021 5:06 AM BROOMMAKING SUPERVISOR 4 mg Given 03/30/2021 8:40 PM BROOMMAKING SUPERVISOR 4 mg Given 03/30/2021 1:36 PM BROOMMAKING SUPERVISOR 4 mg tiZANidine (ZANAFLEX) tablet 4 mg 4 mg, Oral, EVERY 6 HOURS PRN, Starting on Wed03/31/21 at 0945, Until Wed04/18/21 at 1552, Spasm, Routine, Previous Med: tiZANidine (ZANAFLEX) 4 mg Tablet - Orig Sig - Take 1 Tablet (4 mg) by mouth every 6 hours as needed for Spasm. Given 04/16/2021 10:09 PM BROOMMAKING SUPERVISOR 4 mg Given 04/16/2021 8:46 AM BROOMMAKING SUPERVISOR 4 mg Given 04/15/2021 12:13 PM BROOMMAKING SUPERVISOR 4 mg traZODone (DESYREL) tablet 50 mg 50 mg, Oral, DAILY AT BEDTIME, First dose on Wed04/04/21 at 2100, Until Discontinued, Routine Given 04/17/2021 9:41 PM BROOMMAKING SUPERVISOR 50 mg Given 04/16/2021 8:14 PM BROOMMAKING SUPERVISOR 50 mg Given 04/15/2021 9:44 PM BROOMMAKING SUPERVISOR 50 mg documented in this encounter Active and Recently Administered Medications Times are shown in BROOMMAKING SUPERVISOR. Scheduled Medication Order 04/16/2021 04/17/2021 04/18/2021 bisacodyl (THE MAGIC BULLET) rectal suppository 10 mg 10 mg, Rectal, DAILY, First dose on Wed03/28/21 at 1900, Until Discontinued, Routine 1900 (Refused - Provider: Sarah Navarro RN) 1900 (Given - Provider: Rodney Redding RN) docusate sodium (COLACE) capsule 100 mg 100 mg, Oral, TWO TIMES DAILY, First dose on Jerilyn 03/27/21 at 2300, Until Discontinued, Routine 0843 (Given - Provider: Rambo Starks RN)2013 (Given - Provider: Sarah Navarro RN) 923 (Given - Provider: Kami Apple, TOMMY)2140 (Given - Provider: Rodney Redding, TOMMY) 0838 (Given - Provider: Kami Apple, TOMMY) enoxaparin (LOVENOX) injection 40 mg 40 mg, subCUT, EVERY 24 HOURS, First dose on Wed03/28/21 at 2000, Until Discontinued, Routine, Indication: Prophylaxis of VTE, Dose to be adjusted per facility protocol? Yes 2013 (Given - Provider: Sarah Navarro RN) 2139 (Given - Provider: Rodney Redding RN) fludrocortisone (FLORINEF) tablet 0.2 mg 0.2 mg, Oral, DAILY, First dose on Wed03/28/21 at 0900, Until Discontinued, Routine 0843 (Given - Provider: Rambo Starks RN) 0923 (Given - Provider: Kami Apple, TOMMY) 0838 (Given - Provider: Kami Apple, TOMMY) gabapentin (NEURONTIN) capsule 200 mg 200 mg, Oral, EVERY 8 HOURS, First dose on Wed03/27/21 at 2300, Until Discontinued, Routine, Previous Med: gabapentin (NEURONTIN) 100 mg capsule - Orig Sig - Take 2 Capsules (200 mg) by mouth every 8 hours. 0528 (Given - Provider: Rodney Redding RN)1237 (Given - Provider: Rambo Starks RN)2013 (Given - Provider: Sarah Navarro RN) 05 (Given - Provider: Rodney Redding, TOMMY)1434 (Given - Provider: Kami Apple, TOMMY)214 (Given - Provider: Rodney Redding RN) 0507 (Given - Provider: Kezia Flores, TOMMY)1300 (Given - Provider: Kami Apple, TOMMY) midodrine (PROAMATINE) tablet 10 mg 10 mg, Oral, TWO TIMES DAILY, First dose (after last modification) on Wed04/10/21 at 0600, Until Discontinued, Routine 0528 (Given - Provider: Rodney Redding RN)1234 (Given - Provider: Rambo Starks, TOMMY) 0527 (Given - Provider: Rodney Redding RN)1200 (Refused - Provider: Kami Apple RN) 0507 (Given - Provider: Kezia Flores, TOMMY)1200 (Not Given - Provider: Kami Apple RN - Reason: Lab results - Comment: BP) naloxone (NARCAN) 0.4 mg/mL injection 0.1 mg 0.1 mg, IV, SEE ADMIN INSTRUCTIONS, Starting on Jerilyn 03/27/21 at 2247, Until Wed04/18/21 at 1552, Routine nitrofurantoin (MACROBID) capsule 100 mg 100 mg, Oral, TWO TIMES DAILY WITH MEALS, 14 doses, First dose on Wed04/14/21 at 1700, Last dose on Wed04/21/21 at 0800, Routine, Antibiotic Indication: Urinary Tract Infection(UTI) / Infection, Is sepsis suspected? Unlikely 0843 (Given - Provider: Rambo Starks RN)1709 (Given - Provider: Rambo Starks RN) 0923 (Given - Provider: Kami Apple, RN)1738 (Feeding Started - Provider: Kezia Flores, TOMMY) 0838 (Given - Provider: Kami Apple, TOMMY) pantoprazole (PROTONIX) tablet 40 mg 40 mg, Oral, DAILY BEFORE BREAKFAST, First dose on Wed03/28/21 at 0600, Until Discontinued, Routine, Indication: Gastroesophageal reflux disease (GERD) 0528 (Given - Provider: Rodney Redding RN) 0527 (Given - Provider: Rodney Redding RN) 0507 (Given - Provider: Kezia Flores, TOMMY) phenazopyridine tablet 190 mg (COMPLETED) 190 mg (rounded from 200 mg), Oral, THREE TIMES DAILY AFTER MEALS, 9 doses, First dose on Wed04/14/21 at 1000, Last dose on Wed04/16/21 at 1800, Routine 0843 (Given - Provider: Rambo Starks RN)1234 (Given - Provider: Rambo Starks RN)1711 (Given - Provider: Rambo Starks, TOMMY) polyethylene glycol (MIRALAX) packet 17 Gram 17 Gram, Oral, DAILY, First dose on Wed03/28/21 at 0900, Until Discontinued, Routine 0843 (Refused - Provider: Rambo Starks RN) 0924 (Refused - Provider: Kami Apple, TOMMY) 0838 (Given - Provider: Kami Apple, RN) potassium chloride (KLOR-CON) SR tablet 40 mEq (COMPLETED) 40 mEq, Oral, TWO TIMES DAILY WITH MEALS, 2 doses, First dose on Wed04/15/21 at 1700, Last dose on Wed04/16/21 at 0800, Routine 0843 (Given - Provider: Rambo Starks RN) sodium chloride tablet 1 Gram 1 Gram, Oral, TWO TIMES DAILY WITH MEALS, First dose on Wed04/09/21 at 1700, Until Discontinued, Routine, On hold since Wed04/10/2021 at 1324 until manually unheld 0800 (Automatically Held - Provider: Yuliet Gomez NP)1700 (Automatically Held - Provider: Yuliet Gomez NP) 0800 (Automatically Held - Provider: Yuliet Gomez NP)1700 (Automatically Held - Provider: Yuliet Gomez NP) 0800 (Automatically Held - Provider: Yuliet Gomez NP)1552 (Order Unhold - Provider: PROVIDER, DISCHARGE PATIENT) traZODone (DESYREL) tablet 50 mg 50 mg, Oral, DAILY AT BEDTIME, First dose on Wed04/04/21 at 2100, Until Discontinued, Routine 2013 (Given - Provider: Sarah Navarro RN) 214 (Given - Provider: Rodney Redding RN) PRN Medication Order 04/16/2021 04/17/2021 04/18/2021 acetaminophen (TYLENOL) tablet 650 mg 650 mg, Oral, EVERY 4 HOURS PRN, Starting on Wed03/31/21 at 0945, Until Wed04/18/21 at 1552, Other (See Comment), See admin instructions, Routine 0530 (Given - Provider: Rodney Redding RN)1235 (Given - Provider: Rambo Starks, TOMMY)220 (Refused - Provider: Rodney Redding RN) bisacodyL (DULCOLAX) delayed release tablet 5 mg 5 mg, Oral, DAILY PRN, Starting on Jerilyn 03/27/21 at 2247, Until Wed04/18/21 at 1552, Constipation, Routine butalbital-acetaminoph en-caffeine (FIORICET) 50-325-40 mg per tablet 1 Tablet 1 Tablet, Oral, EVERY 6 HOURS PRN, Starting on Jerilyn 04/03/21 at 0727, Until Wed04/18/21 at 1552, Migraine, Routine 220 (Given - Provider: Sarah Navarro RN) 1740 (Given - Provider: Kezia Flores RN) 0153 (Given - Provider: Kezia Flores RN) calcium as carbonate (TUMS) 500 mg (200 mg elemental) chewable tablet 200 mg 200 mg, Oral, EVERY 4 HOURS PRN, Starting on Jerilyn 03/27/21 at 2247, Until Wed04/18/21 at 1552, Dyspepsia, Routine methyl salicylate-menthol (BENGAY) topical cream Topical, EVERY 6 HOURS PRN, Starting on 03/31/21 at 1318, Until Wed04/18/21 at 1552, Discomfort, Routine ondansetron (ZOFRAN ODT) tablet 4 mg 4 mg, Oral, EVERY 6 HOURS PRN, Starting on Jerilyn 03/27/21 at 2247, Until Wed04/18/21 at 1552, Nausea/Emesis, Routine prochlorperazine maleate (COMPAZINE) tablet 10 mg 10 mg, Oral, EVERY 6 HOURS PRN, Starting on Jerilyn 03/27/21 at 2247, Until Wed04/18/21 at 1552, Nausea/Emesis, Routine tiZANidine (ZANAFLEX) tablet 4 mg 4 mg, Oral, EVERY 6 HOURS PRN, Starting on Wed03/31/21 at 0945, Until Wed04/18/21 at 1552, Spasm, Routine, Previous Med: tiZANidine (ZANAFLEX) 4 mg Tablet - Orig Sig - Take 1 Tablet (4 mg) by mouth every 6 hours as needed for Spasm. 0846 (Given - Provider: Rambo Starks RN)2209 (Given - Provider: Sarah Navarro RN) documented in this encounter Care Teams Torts Law Professor Relationship Specialty Start Date End Date Huang Alonso MD [address] [place] [address] PCP - General Family Practice 10/03/13 05/06/22 documented as of this encounter
--- OUTSIDE RECORDS SUMMARY | 2024-04-13 08:43 | XMS_ITS | Encounter Summary ---
Author Organization [facility] Address [address] [place] [address] Care Team Providers Care Traffic Sign Supervisor Name Role Phone Huang Alonso MD Primary Care Provider [phone] Reason for Visit * Reason Comments Medication Refill Encounter Details Date Type Department Care Team (Late st Contact Info) Description 04/16/2021 Refill [facility] Physical Med and Rehab - [facility] [id number] [place] [phone] [place] [address] [place] [address] Social History Tobacco Use Types [...] Med and Rehab - [facility] [address] [place] [phone] [place] [address] [place] [phone] documented as of this encounter Visit Diagnoses Not on filedocumented in this encounter Care Teams Traffic Sign Supervisor Relationship Specialty Start Date End Date Huang Alonso MD [address] [place] [id number] PCP - General Family Practice 10/03/13 05/06/22 documented as of this encounter
--- OUTSIDE RECORDS SUMMARY | 2024-04-13 08:43 | XMS_ITS | Encounter Summary ---
Author Organization [facility] Address [address] [place] [address] Care Team Providers Care Entomology Professor Name Role Phone Huang Alonso MD Primary Care Provider [phone] Reason for Visit * Reason Onset Date Comments Routed Progress Note to [facility] 04/16/2021 Progress Note dated 04/16/19 routed to [facility] for new manual wheelchair. Encounter Details Date Type Department Care Team (Late st Contact Info) Description 04/16/2021 Telephone [facility] Physical Med and Rehab - [facility] [address] [place] [address] Be Rangel, [address] [place] [address] Routed Progress Note to [facility] (Progress Note dated 04/16/2021 routed to [facility] for new manual wheelchair.) Social History Tobacco Use Types Packs/Day Years [...] COVID-19? No / Unsure 03/27/2021 10:59 PM DIRECTOR CUSTOMER documented as of this encounter Plan of Treatment Upcoming Encounters Date Type Department Care Team (Late st Contact Info) Description 08/24/2024 11:00 AM CDT Video Visit [facility] Physical Med and Rehab - Rehab Hosp [facility] [address] [place] [address] [place] [address] [place] [address] documented as of this encounter Visit Diagnoses Not on filedocumented in this encounter Care Teams Entomology Professor Relationship Specialty Start Date End Date Huang Alonso MD [address] [place] [address] PCP - General Family Practice 10/03/13 05/06/22 documented as of this encounter
--- OUTSIDE RECORDS SUMMARY | 2024-04-13 08:43 | XMS_ITS | Encounter Summary ---
Author Organization [facility] Address [address] [place] [address] Care Team Providers Care Oil Tester Name Role Phone Huang Alonso MD Primary Care Provider [phone] Encounter Details Date Type Department Care Team (Late Contact Info) Description 03/27/2021 Abstract [facility] Neurosurgery - [facility] [address] [address] [place] [address] Naresh Larios MD [address] [place] [address] -x0 (Work) Social History Tobacco [...] have Coronavirus / COVID-19? No / Unsure 03/13/2021 10:01 AM FSR documented as of this encounter Plan of Treatment Upcoming Encounters Date Type Department Care Team (Late st Contact Info) Description 08/24/2024 11:00 AM CDT Video Visit [facility] Physical Med and Rehab - Rehab Hosp [address] [address] Be Rangel, [address] [place] [address] documented as of this encounter Visit Diagnoses Not on filedocumented in this encounter Care Teams Oil Tester Relationship Specialty Start Date End Date Huang Alonso MD [address] [place] [address] PCP - General Family Practice 10/03/13 05/06/22 documented as of this encounter
--- OUTSIDE RECORDS SUMMARY | 2024-04-13 08:43 | XMS_ITS | Encounter Summary ---
Author Organization [facility] Address [address] [place] [address] Care Team Providers Care Light Bulb Tester Name Role Phone Huang Alonso MD Primary Care Provider [phone] Encounter Details Date Type Department Care Team (Late Contact Info) Description 2021 Abstract [facility] Physical Med and Rehab - [facility] [address] [place] [address] [place] [address] [place] [address] Social History Tobacco Use Types [...] COVID-19? No / Unsure 03/27/2021 10:59 PM PARTS REMOVER documented as of this encounter Plan of Treatment Upcoming Encounters Date Type Department Care Team (Late st Contact Info) Description 08/24/2024 11:00 AM CDT Video Visit [facility] Physical Med and Rehab - [facility] [id number] [place] [address] Be Rangel, [address] [place] [address] documented as of this encounter Visit Diagnoses Not on filedocumented in this encounter Care Teams Light Bulb Tester Relationship Specialty Start Date End Date Huang Alonso MD [address] [place] [address] PCP - General Family Practice 10/03/13 05/06/22 documented as of this encounter
--- OUTSIDE RECORDS SUMMARY | 2024-04-13 08:43 | XMS_ITS | Encounter Summary ---
Author Organization [facility] Address [address] Pablo: [place] [address] Care Team Providers Care Rn Progressive Care Name Role Phone Huagn Alonso MD Primary Care Provider [phone] Encounter Details Date Type Department Care Team (Latest Contact Info) Description 03/27/2021 Travel Social History Tobacco Use Types Packs/Day [...] COVID-19? No / Unsure 03/27/2021 10:59 PM BELL ATTENDANT documented as of this encounter Plan of Treatment Upcoming Encounters Date Type Department Care Team (Late st Contact Info) Description 08/24/2024 11:00 AM CDT Video Visit [facility] Physical Med and Rehab - [facility] [address] [place] [address] [place] [address] [place] [address] documented as of this encounter Visit Diagnoses Not on filedocumented in this encounter Care Teams Rn Progressive Care Relationship Specialty Start Date End Date Huang Alonso MD [address] [place] [address] PCP - General Family Practice 10/03/13 05/06/22 documented as of this encounter
--- OUTSIDE RECORDS SUMMARY | 2024-04-13 08:44 | XMS_ITS | Encounter Summary ---
Author Organization [facility] Address [address] [place] [address] Care Team Providers Care Mortgage Protection Sales Name Role Phone Huang Alonso MD Primary Care Provider [phone] Reason for Referral * Physical Therapy (Routine) - Closed Specialty Diagnoses / Procedures Referred By Darlene t Referred To Contact Physical Therapy Diagnoses Neck pain Naresh Larios MD [address] [place] [address] x0 Referral ID Status Reason Start Date Expiration Date Visits Re quested Visits Authorized [id number] Closed 03/03/2021 03/03/2022 24 24 ICAL TRIAL DATA MANAGER Encounter Details Date Type Department Care Team (Late st Contact Info) Description 03/03/[address] [facility] Neurosurgery - [facility] [address] [address] [place] [address] Naresh Larios MD [address] [place] [address]x0 (Work) Neck pain (Primary Dx) Social History Tobacco Use Types [...] have Coronavirus / COVID-19? No / Unsure 02/25/2021 1:31 PM CLINICAL TRIAL DATA MANAGER documented as of this encounter Plan of Treatment Upcoming Encounters Date Type Department Care Team (Late st Contact Info) Description 08/24/2024 11:00 AM CDT Video Visit [facility] Physical Med and Rehab - Rehab Hosp [facility] [address] [place] [address] [place] [address] [place] [phone] Scheduled Referrals Name Type Priority Associated Diagnoses Orde r Schedule AMB REFERRAL TO PHYSICAL THERAPY Outpatient Referral Routine Neck pain Ordered: 03/03/2021 documented as of this encounter Visit Diagnoses Diagnosis Neck pain- Primary Cervicalgia documented in this encounter Care Teams Mortgage Protection Sales Relationship Specialty Start Date End Date Huang Alonso MD [address] [place] [address] PCP - General Family Practice 10/03/13 05/06/22 documented as of this encounter
--- OUTSIDE RECORDS SUMMARY | 2024-04-13 08:44 | XMS_ITS | Encounter Summary ---
Author Organization [facility] Address [address] [place] [address] Care Team Providers Care Hearing Health Technician Name Role Phone Huang Alonso MD Primary Care Provider [phone] Reason for Visit * Auth/Cert Specialty Diagnoses / Procedures Referred By Contac t Referred To Contact Diagnoses Cervicalgia NECK PAIN Procedures AK ARTHRODESIS ANT INTERBODY INC DISCECTOMY, CERVICAL BELOW C2 AK ARTHRODESIS ANT INTERBODY INC DISCECTOMY, CERV BELOW C2 EACH ADDL AK ANTERIOR INSTRUMENTATION 4-7 VERTEBRAL SEGMENTS AK ALLOGRAFT FOR SPINE SURGERY ONLY STRUCTURAL AK LAMINEC/FACETECT/FORAMIN,THORAC IC 1 SEG C 4/5 & C5/6 ACDF, T 2/3 laminectomy Katherin Patton MD [address] [address] [phone] Referral ID Status Reason Start Date Expiration Date Visits Re quested Visits Authorized [id number] 02/12/2021 1 1 Encounter Details Date Type Department Care Team (Late st Contact Info) Description 03/13/2021 12:32 PM CLINICAL DIETICIAN - 03/13/2021 3:17 PM CLINICAL DIETICIAN Surgery [facility] Operating Room [address] [place] [address] Katherin Patton MD [address] [place] [address] -[phone] (Work) CERVICAL DISCECTOMY FUSION 2 LEVEL ANTERIOR Surgery Details Date/Time Status Location OR Service Patient Class Case Class Case Type Trauma Case? 03/13/2021 12:32 PM Posted [facility] OR MAIN OR 29 Neurological Surgery Surgical OP/Extended Care Elective No Panel 1 Procedure LRB Anes Op Region Wound Class Comments CERVICAL DISCECTOMY FUSION 2 LEVEL ANTERIOR N/A General Spine Cervical Clean-I C4-C6 ACDF, NEED: FLAT X RAY, X MAX DRILL, MICROSCOPE, *23H*, REQ TO FOLLOW THORACIC LAMINECTOMY N/A General Spine Lumbar Clean- I T2-3 Surgeon Surgeon Role Service Panel Katherin Patton MD Primary Neurological Surgery 1 Case Notes MEDICARE NN, [place] NN CPT 49445, 55105, 46506, 78620 documented in this encounter Social History Tobacco Use Types Packs/Day Years Used Date Smoking Tobacco: Former Cigarettes 0.5 5 1 5 1979 Smokeless Tobacco: Never Alcohol Use Standard [...] COVID-19? No / Unsure 03/13/2021 10:01 AM CLINICAL DIETICIAN documented as of this encounter Last Filed Vital Signs Vital Sign Reading Time Taken Comments Blood Pressure 133/82 03/13/2021 10:10 AM CLINICAL DIETICIAN Pulse 66 03/13/2021 10:10 AM CLINICAL DIETICIAN Temperature 36.6 ??C (97.8 ??F) 03/13/2021 10:[address] Respiratory Rate 16 03/13/2021 10:10 AM CLINICAL DIETICIAN Oxygen Saturation 95% 03/13/2021 10:10 AM CLINICAL DIETICIAN Inhaled Oxygen Concentration - - Weight 83.9 kg (185 lb) 03/13/2021 10:10 AM CLINICAL DIETICIAN Height 160 cm (5' 3 ) 03/13/2021 10:10 AM CLINICAL DIETICIAN Body Mass Index 32.77 03/13/2021 10:10 AM CLINICAL DIETICIAN documented in this encounter Discharge Summaries * Ermelinda Roger PA - 03/27/2021 1:38 PM CST DISCHARGE SUMMARY and [facility] ORDERS AT TRANSITION OF CARE Vick Tanner 65 y.o. female 1955 CSN: [id number] Date of Admission: 03/13/2021 Document Creation Date: 03/27/2021 Date of Discharge: 03/27/2021 LOS: 13 days PCP: Huang Alonso MD Dispo: Acute Rehab ADMIT DIAGNOSIS: <principal problem not specified> PROCEDURE PERFORMED: Procedure(s) (LRB): CERVICAL DISCECTOMY FUSION 2 LEVEL ANTERIOR (N/A) THORACIC LAMINECTOMY (N/A) Reason for Admission/HPI: The patient was admitted on 03/13/2021 for the above diagnosis/procedure. The procedure went well without complications. Patient did not require a blood transfusion, with stable hemoglobin and hematocrit levels during this hospital visit stay.. See electronic hospital record for full detailed hospital stay. Patient underwent a two-level ACDF and posterior thoracic T2-3 laminectomy and discectomy. Postoperatively patient developed weakness in bilateral lower extremity left leg worse than right she also had decreased sensation in her right leg compared to her left leg. She was worked up to urgently with a repeat MRI that showed the patient to have some signal changes at the T2-3 level with unchanged in the 2 3 disc herniation size. She was admitted to the ICU to optimize her blood pressure and given steroids to help control the cord edema it was decided not to undergo any further surgery surgery at that point due to the fact that it would have to be an anterior transthoracic approach andafter discussion with patient and family it was decided to admit her to the ICU and watch her neurological status. 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 Patient's neurological exam has improved slowly and she will benefit fromsome acute rehab. But no patient's surgical wound showed no erythema or drainage. 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 Hyponatremia ??? Brown-Sequard syndrome ??? Urinary retention ??? Neurological deficit present ??? Cord compression ??? Cervical spondylosis with radiculopathy Resolved Hospital Problems No resolved problems to display. estimated creatinine clearance is 57.6 mL/min (by C-G formula based on SCr of 0.73 mg/dL). Allergies Allergen Reactions ??? Codeine Nausea and Vomiting ??? Oxycodone Nausea and Vomiting Medication List START taking these medications docusate sodium 100 mg capsule Commonly known as: COLACE Take 1 Capsule (100 mg) by mouth 2 times daily. Signed by: Dr. Katherin Patton MD Refills: 0 gabapentin 100 mg capsule Commonly known as: NEURONTIN Take 2 Capsules (200 mg) by mouth every 8 hours. Signed by: Dr. Katherin Patton MD Refills: 0 sodium chloride 1 gram tablet Take 1 Tablet (1 Gram) by mouth every 8 hours. Signed by: Dr. Katherin Patton MD Refills: 0 tiZANidine 4 mg Tablet Commonly known as: ZANAFLEX Take 1 Tablet (4 mg) by mouth every 6 hours as needed for Spasm. Signed by: DEDE Castro Quantity: 30 Tablet Refills: 0 traMADoL 50 mg tablet Commonly known as: ULTRAM Take 2 Tablets (100 mg) by mouth every 6 hours as needed for Pain. Signed by: Dr. Katherin Patton MD Quantity: 40 Tablet Refills: 0 zolpidem 5 mg tablet Commonly known as: AMBIEN Take 1 Tablet (5 mg) by mouth nightly as needed for Insomnia. Signed by: Dr. Katherin Patton MD Refills: 0 CONTINUE taking these medications fluticasone propionate 50 mcg/spray [place], Suspension nasal inhaler Commonly known as: FLONASE Administer 2 Sprays in each nostril daily. Refills: 0 lisinopril-hydroCHLOROthiazide 20-12.5 mg tablet Commonly known as: ZESTORETIC Take 1 Tablet by mouth daily. Refills: 0 pantoprazole 40 mg Tablet, Delayed Release (E.C.) Commonly known as: PROTONIX Take 1 Tablet by mouth 2 times daily. Refills: 0 tamoxifen 20 mg tablet Commonly known as: NOLVADEX Take 1 Tablet by mouth daily. Refills: 0 TRAZODONE ORAL Take 1 Tablet by mouth nightly as needed. Refills: 0 Where to Get Your Medications These medications were sent to [id number] - [place], [place] - [facility] [address] AT [facility] & [facility] [address] [facility] [place] [place] [id number] Hours: 24-hours ?? tiZANidine 4 mg Tablet ?? traMADoL 50 mg tablet Information about where to get these medications is not yet available Ask your nurse or doctor about these medications ?? docusate sodium 100 mg capsule ?? gabapentin 100 mg capsule ?? sodium chloride 1 gram tablet ?? zolpidem 5 mg tablet Pertient Consultations and Follow up Recommendations: ?? Follow up with Dr. Patton in 2-3 weeks removal, call for appt at [phone]. Discharge Condition: improving. Prognosis: good to fair Recent Labs: (Please note date of lab as some may be old) Lab Results Component Value Date/Time WBC 5.8 03/27/2021 10:07 AM HEMOGLOBIN 9.9 (L) 03/27/2021 10:07 AM HEMATOCRIT 31.9 (L) 03/27/2021 10:07 AM PLATELETS 202 03/27/2021 10:07 AM SODIUM 142 03/27/2021 10:07 AM POTASSIUM 3.8 03/27/2021 10:07 AM CO2 23 03/27/2021 10:07 AM BUN 26 (H) 03/27/2021 10:07 AM CREATININE 0.73 03/27/2021 10:07 AM GLUCOSE 122 (H) 03/27/2021 10:07 AM AST 19 03/14/2021 02:03 AM ALT 13 03/14/2021 02:03 AM Lab Results Component Value Date/Time INR 1.2 (H) 03/14/2021 02:03 AM Labs Needing Followup: No labs needed to follow up If on Coumadin INR goal: not applicable Indication: not applicable Nutritional status and in-house recommendations: Current Diet and/or Nutritional Supplementation ordered: DIET GENERAL Effective Now DISCHARGE ORDERS Diet: Consistency: Regular Liquids: regular liquids no aspiration precautions needed [x] OK for house supplements per dietary consult [place] Indication: none/ok to remove if present Tube Feeding Orders: Not Applicable Wound Care Instructions: Okay to shower and get incision wet daily, leave open to air and only cover if actively draining. Monitor for incisional redness, swelling, or drainage. Call our office with any concerns. Estrada Score: 22 (03/13/21 1219) Estrada Score: 16 (03/26/212005) Oxygen:Room air 24 hours a day [x] Wean as tolerated Keep Oxygen Saturation > 92% Oxygen Indication: not on oxygen at discharge ADL: Activity as Tolerated Rehab Services: Rehab potential: good [x]PT Eval/Treat as indicated Weight Bearing: LUE: no restriction RUE: no restriction LLE: no restriction RLE: no restriction [x]OT Eval/Treat as indicated [x]ST Eval/Treat as indicated The following will be given unless crossed through: [x]PPD 2 Step on Admission (2099) [x]Pneumovax on Admission (2099) [x]Influenza Vaccination annually (01/10-07/10) [x]May consult dental, podiatry, opthalmology PRN [x]Siderails up for mobility [x]Barrier creat to charlene area as needed ?? This list contains medications that require special monitoring (such as Coumadin): no ?? If this patient is on IV medications, those are included with dose, freq, route, and stop date: not applicable ?? All medications that will end have stop dates in place (antibiotics, etc): not applicable ?? All insulins have dose, route, frequency and time as well as appropriate scales: not applicable ?? Accu checks, if the patient is a diabetic and on insulins, should be checked: before meals, bedtime and PRN symptoms ?? Code status at discharge: Full Code. There was not ongoing discussion on a change of code statusthis admission. ?? Primary Emergency Contact: Oneyda Tanner Immunization Status at Discharge (please note that patient may receive immunizations on the day of discharge that are not reflected on this form): Immunization History Administered Date(s) Administered ??? (PFIZER) (12 YR UP) COVID-19 VACCINE - EMERGENCY USE AUTHORIZATION, MRNA,[id number](PF) 30 MCG/0.3 ML IM SUSP 05/25/2020, 06/16/2020, 02/14/2021 I certify that I have reviewed the medications, that each medication has a discrete dose, frequency, and route, and that they are accurate. Duplicates, if they exist, are intentional and initialed to certify their accuracy. All insulin regimens and anticoagulants, if present, are correct and initialed to certify their accuracy. I have fulfilled the JCAHO requirement for H&P by: I have prepared or dictated a discharge summary which includes a systems review. I certify that the post hospital SNF services are required to be given on an inpatient basis because of the above named patient's need for shelter care on a continuing basis for the condition(s) for which he/she was receiving inpatient hospital services prior to his/her transfer to SNF. Medication Reconciliation must be signed: [facility] Office number: [phone] Accepting Physician: Print Name: Date: Contact Information for Medication Questions: I have reviewed the above medications and certify that they are accurate for new orders. I crossed out any medications that I do not want to be continued. ICAL DIETICIAN documented in this encounter Discharge Instructions * Discharge Instructions* Dougie Bell PA - 03/13/2021 1:21 PM CLINICAL DIETICIAN Thank you for choosing [facility] for your care! The following is a list of instructions, from your provider, to follow upon your discharge to ensure you have the optimal recovery fromyour recent injury or surgery. Anterior Cervical Discectomy and Fusion: What to Expect at Home During Your Recovery Follow-up care is a teague part of your treatment and safety. Be sure to make and go to all appointments, and call your doctor if you are having problems. If you do not already have a follow-up appointment made, call Dr. Patton's office in the next 1-3 days to make follow up appointment for 2-3 weeks at . It is also a good idea to know your test results and keep a list of the medicinesyou take. You can expect your neck to feel stiff or sore after surgery, especially in the back of the neck and between the shoulder blades. This should improve in the next few weeks after surgery. But it may take 4 to 6 months for you to get better completely. You may have trouble sitting or standing in one position for very long and pain medicine and muscle relaxants help in the weeks after your surgery. It may take 4 to 6 weeks to get back to your usual activities. Your throat will feel sore and it may be difficult to swallow for the first couple of weeks after your surgery. As long as you can get liquids down without difficulty, this should slowly improve, otherwise call our office or seek medical attention if it becomes increasingly difficult to get anything down including liquids. Avoid hot liquids for first 3-5 days. Soothing foods/liquids such as jello, pudding, and luke warm soups are recommended until swallowing improves. Staying elevated will alsohelp, it's advised you keep propped up while sleeping to help reduce the swelling. You may use an ice pack directly on your incision or around it on the front of your neck, using a cloth to protect your skin; and a heating pad to the back of your neck and shoulder blades as needed. Do not use over the counter anti-inflammatory medications (Ibuprofen, Motrin, Aleve, Advil, etc). Taking these medications after having a fusion can delay fusion rates and we recommend that you avoidthem for the first 3 months after your surgery. Nicotine use has also been shown to decrease fusion rates and we recommend you avoid all forms of nicotine, including cigarettes and nicotine patches/gum, to help increase your chances of successfully fusing and healing from this surgery. Dr. Patton may advise you to work with a physical therapist to strengthen the muscles around your neck and back - this will be discussed at your follow-up appointment. The pain you were having in your arms before surgery should get better or go away completely shortly following surgery. Any numbness or tingling that you were having in your arms or hands before surgery may take 6 months to a year to resolve. This care sheet gives you a general idea about how long it will take for you to recover. But each person recovers at a different pace. Follow the steps below to get better as quickly as possible. How can you care for yourself at home? Activity ?? Rest when you feel tired. Getting enough sleep will help you recover. ?? Try to walk each day. Start by walking a little more than you did the day before. Bit by bit, increase the amount you walk. Walking boosts blood flow and helps prevent pneumonia and constipation. Walking may also decrease your muscle soreness after surgery. ?? No lifting anything that is more that 5 pounds. This may include heavy grocery bags and milk containers, a heavy briefcase or backpack, cat litter or dog food bags, a child, or a vacuum vacuum cleaner operator. ?? Avoid strenuous activities, such as bicycle riding, jogging, weightlifting, or aerobic exercise,until your doctor says it is okay. ?? Do not drive for 5-7 days after your surgery, while taking narcotic pain medications or muscle relaxants, or until your doctor says it is okay. ?? Avoid taking long car trips for 2 to 4 weeks after surgery. Your neck may become tired and painful from sitting too long in one position. ?? You will probably need to take 4 to 6 weeks off from work. It depends on the type of work you doand how you feel. ?? You may have sex as soon as you feel able, but avoid positions that put stress on your neck or cause pain. Diet ?? You can eat your normal diet. If your stomach is upset, try bland, low-fat foods like plain rice, broiled chicken, toast, and yogurt. ?? Drink plenty of fluids. If you have kidney, heart, or liver disease and have to limit fluids, talk with your doctor before you increase the amount of fluids you drink. ?? You may notice that your bowel movements are not regular right after your surgery. This is common. Try to avoid constipation and straining with bowel movements. You may want to take a fiber supplement every day. If you have not had a bowel movement after a couple of days, ask your doctor about taking a mild laxative. Medicines ?? Take pain medicines exactly as directed. ?? If Dr. Patton gave you a prescription medicine for pain, take it as prescribed. ?? Do not take two or more pain medicines at the same time unless the doctor told you to. Many painmedicines have acetaminophen, which is Tylenol. Too much acetaminophen (Tylenol) can be harmful. ?? If you think your pain pill is making you sick to your stomach: 1. Take your pills after meals (unless your doctor has told you not to). 2. Stop taking your narcotic pain medication and muscle relaxants and try taking [id number] Extra Strength Tylenol for pain relief. Incision care ?? Remove your dressing 48 hours after your surgery, it is then okay to shower and get the incisionwet. Do not scrub your incision. When done, pad dry, and leave open to air. Avoid creams and ointments directly on your incision. ?? Your sutures in the incision will dissolve and fall out on their own. ?? Keep the area clean and dry. You may cover it with a gauze bandage if it weeps or rubs against clothing; if you choose to do this, change the dressing every day. Other instructions ?? Use a heating pad, hot water bottle, or gentle massage on your back to reduce stiffness. Avoid putting heat on your incision. When should you call for help? Call 911 anytime you think you may need emergency care. For example, call if: ?? You pass out (lose consciousness). ?? You have sudden chest pain and shortness of breath, or you cough up blood. ?? You cannot swallow. ?? You have severe pain in your neck or back. Call your doctor or seek immediate medical care if: ?? You have pain that does not get better after you take pain pills. ?? You have loose stitches, or your incision comes open. ?? You have blood or fluid draining from the incision (however small amounts in the first 3 days isnormal). ?? You have signs of infection, such as: ?? Increased pain, swelling, warmth, or redness. ?? Red streaks leading from the site. ?? Pus draining from the site. ?? Swollen lymph nodes in your neck or armpits. ?? A fever. ?? You have severe pain in your arms. ?? You have new or increased weakness or numbness in your arms. Watch closely for any changes in your health, and be sure to contact your doctor if: ?? You do not have a bowel movement after taking a laxative. Contact information : [facility] Office #: [phone] 8:30am- 4:30pm Wed-Wednesday Exchange#: [phone] After-hours Emergency contact ICAL DIETICIAN documented in this encounter Medications at Time [...] every 8 hours. 180 Capsule 04/16/2021 12/24/2021 gabapentin (NEURONTIN) 100 mg capsule Take 2 Capsules (200 mg) by mouth every 8 hours. 03/27/2021 04/16/2021 sodium chloride 1 gram tablet Take 1 Tablet (1 Gram) by mouth every 8 hours. 03/27/2021 04/18/2021 tiZANidine (ZANAFLEX) 4 mg Tablet Take 1 Tablet (4 mg) by mouth every 6 hours as needed for Spasm. 30 Tablet 03/13/2021 04/16/2021 traMADoL (ULTRAM) 50 mg tabletIndications:Tho racic spondylosis with cord compression Take 2 Tablets (100 mg) by mouth every 6 hours as needed for Pain. 40 Tablet 03/13/2021 04/18/2021 lisinopril-hydroCHLOR Othiazide (ZESTORETIC) 20-12.5 mg tablet Take 1 Tablet by mouth daily. 04/18/2021 pantoprazole (PROTONIX) 40 mg Tablet, Delayed Release (E.C.) Take 1 Tablet by mouth 2 times daily. 04/18/2021 trazodone HCl (TRAZODONE ORAL) Take 1 Tablet by mouth nightly as needed. 04/18/2021 fluticasone propionate (FLONASE) 50 mcg/spray [place], Suspension nasal inhaler Administer 2 Sprays in each nostril daily. 04/18/2021 documented as of this encounter Progress Notes * Mariela Martinez RN - 03/27/2021 7:58 PM CST 1954 Called [facility] to get an ETA. Dispatcher stated it will be 30 minutes. ICAL DIETICIAN * Yulia Strange RN - 03/27/2021 12:50 PM CST 03/27/21 1242 Final Discharge Arrangements Anticipated Discharge Disposition [facility] Contact Name [facility] Transportation Provider [facility] Provider Date Of Pick-Up 03/27/21 Time Of Pick-Up 1900 Copy of this transfer form will be sent with patient along with: Demographic sheet;Pertinent Medical Records All discharge arrangements completed. Follow up IM letter completed. Patient Choice letter completed. Transportation upon Discharge form completed. Family contacted and aware of discharge. If patient going LTAC, REHAB, SNF, INTERMEDIATE CARE FACILITY: Attending MD is Socorro, who can bereached at [phone]. [place] [phone] ICAL DIETICIAN * Marli Mathur RD - 03/27/2021 10:27 AM CST Images from the original note were not included. CLINICAL DIETITIAN PROGRESS NOTE [facility] Follow Up Nutrition Assessment Patient is incontinent of bowel with one bowel movement this AM. Assessment: Recent Labs 03/25/21 0612 03/26/21 0901 GLUCOSE 103* 106* BUN 27* 30* CREAT 0.75 0.78 GFR >60 >60 NA 138 140 K 4.2 3.8 CL 105 107 CO2 25 23 ANIONGAP 8 10 CA 8.0* 8.3* MG 2.1 -- Skin: See Flowsheet for more wound documentation Estrada Score: 16 (03/26/212005) Anthropometrics: Height: 5' 3 (160 cm) (03/14/21 0130) Weight: 83.9 kg (185 lb) (03/13/21 1010) Body mass index is 32.77 kg/m??. Last Bowel Movement (mm/dd/yyyy): 03/26/21 (03/26/212005) Nutrition Prescription: DIET GENERAL Effective Now Intake Points: 100 points (03/25/211857) Food/Meal: Dinner (03/25/211857) Diet/Feeding Tolerance: eating normally (03/26/212005) Nutrition intake is 60- 100 pts I:Nutrition Intervention: DIET GENERAL Effective Now Pt is now eating well. Continue to encourage PO intake. M/E: 1. Continue to monitor: Anthropometrics, Digestive, Skin, and Biochemical data 2. Follow up every 4-7 days and as needed. ICAL DIETICIAN * Katherin Patton MD - 03/27/2021 9:01 AM CST Neurosurgery Patient and her family are aware of Brown Seuquard syndrome diagnosis. I have explained this to them all extensively I also explained that in the last week she has had good return of function on the right and some return of function on the left My hope and expectation that this improvement will continue if she gets aggressive rehab She has reached maximal medical/surgical intervention and now just needs to get going on her rehab but the amount of PT she gets her at the hospital is not adequate to need her needs. 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 Skin & Dressings: intact Drains: none Anti-embolism Measures stockings were worn throughout shift -- currently off patient. Safety: fair Critical Labs: Notes: ICAL DIETICIAN * Amanda Barbosa - 03/26/2021 4:40 PM CST Met with patient regarding [facility] and explained that she would need to be doing more with therapy, prior to rehab reviewing with our PMR doctor. She said she was told that she would go to rehab today and was waiting to get transferred. I did review verbally with our PMR doctor on the phone andcommented that she does need to be able to do more with therapy,was max A x2 to pull up in bed witha goal for slide board transfer. 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 Will continue to follow for possible acute rehab admission as she progresses with therapy. She does live alone and when I mentioned her sister helping at [facility] she said that was just for a day or 2 with admission. Will need to identify appropriate discharge plan from rehab. ICAL DIETICIAN * Tiara Alvares - 03/26/2021 1:25 PM CST Following for Acute Rehab. Patient will need to be able to tolerate 3 hours of therapy to include OOB therapy with a solid discharge plan to return to the community. Will continue to follow. ICAL DIETICIAN * Ermelinda Roger PA - 03/26/2021 9:39 AM CST Neurosurgery Progress Note Vick Tanner 1955 Ready to get out of hospital, very interested in rehab Active Hospital Problems Diagnosis ??? Hyponatremia ??? Brown-Sequard syndrome ??? Urinary retention ??? Neurological deficit present ??? Cord compression ??? Cervical spondylosis with radiculopathy Resolved Hospital Problems No resolved problems to display. Vitals: 03/25/218 03/26/21 0003 03/26/21 0410 03/26/21 0840 BP: 110/55 102/53 112/66 112/57 BP Location: Left arm Left arm Left arm Right arm Patient Position (BP): Supine Supine Supine Supine Pulse: 95 97 92 95 Resp: 20 18 18 20 Temp: 98.1 ??F (36.7 ??C) 97.8 ??F (36.6 ??C) 99 ??F (37.2 ??C) 98.5 ??F (36.9 ??C) TempSrc: Oral Oral Oral Oral SpO2: 95% 94% 95% 96% Weight: Height: PE: Constitutional: Well developed, well nourished, in no active diostress Heart: Regular rate and rhythm Lungs: Non-labored respirations, no wheezing Abdomen: soft, non-distended Extremities: warm, no rash or ecchymosis Neuro: Awake, Alert, Ox3. PERRL, EOMI Speech intact. Follows all commands. Sensory - decreased light touch in the right leg, with normal light touch sensation in the left leg. Normal light touch sensation in the upper extremities bilaterally. Motor strength in the upper extremities is 5/5 bilaterally Strength is 3-4/5 in the right lower extremity and 1/5 in the left lower extremity. Able to lift left heel off bed Anterior cervical incision is clean/dry/intact Posterior thoracic incision C/D/I Recent Labs 03/24/21 0352 03/25/21 0612 WBC 10.9* 7.3 HGB 11.2* 9.5* HCT 35.0* 31.2* PLT 241 181 NA 137 138 K 4.5 4.2 CL 105 105 CO2 23 25 BUN 35* 27* CREAT 0.97* 0.75 GLUCOSE 129* 103* Impression/Plan: POD 13 S/P two level ACDF and T2-T3 laminectomy with Brown Sequard syndrome. Neuro exam stable Dispo- ready for rehab can go today if can be arranged. PT/OT- okay to to shower Pain--well controlled DVT prophylaxis -lovenox, okay for full anticoagulation if needed at rehab DEDE Crowley-Hayden 03/26/2021 ICAL DIETICIAN * Yulia Escudero - 03/26/2021 6:55 AM CST Tail Worker met with Pt and offered support. Pt stated that she is doing well and have no needs. Tail Worker conveyed understanding and will remain available. Chaplain Yulia Hernandez #[id number] ICAL DIETICIAN * Tab Jonas MD - 03/25/2021 11:08 AM CST CCM Transfer Note 03/25/2021 11:08 AM Patient transferring to Neurosurgery Physician /PA/ NETWORK MGR Communication: Tab Jonas MD called/paged accepting physician's service at 03/25/21 at 11:08 AM. Assigned physician: Katherin Greene ICAL DIETICIAN * Tab Jonas MD - 03/25/2021 8:36 AM CST CRITICAL CARE MEDICINE DAILY PROGRESS NOTE HPI: Vick??is a 65 y.o.??female??who presented originally with 3 mo of VILLEDA, neck and arm pain - found to have cervical spondylosis with disc osteophytes causing severe right C4-5??NFS and stenosis at C5-6, also disc herniation at T2- 3 with severe stenosis/cord compression. 03/13 She underwent lective Anterior cervical discectomy and fusion at C4/5 &??C5/6 ??and posterior decompression/laminectomy??at T2-[address] Patton. Post operatively patient had development of left leg weakness and sensation deficits. As per NSGY in PACU; BLE ??Right leg 1-2/5 and left legt flicker of movement. Sensation decreased??RLE compared to LLE. 70 cc of CSF was drained. STAT MRI C&T Showed no fluid collection compressing the cord, but increased cord signal at T2/3 with unchanged size of herniation. Transferred to ICU for further management. ICU Timeline: 03/14: admitted, required low dose levo to maintain MAP goals 03/15 : slightly improved strength and sensation especially RLE 03/16: continues to have slight neuro improvement. Only briefly on levo <1hr. Still having severespasms in legs. Tapering dexa 03/17: CVC switched, BP low when working with therapy. Myelogram without significant residual or persistent cord compression 03/18-03/22: on/off low dose levo 03/25: off levophed, transfer to neuro Assessment and Plan: Neuro/Psych: Spinal cord contusion/edema C4-6 cervical stenosis s/p ACDF T2/3 stenosis 2/2 calcified disc herniation s/p laminectomy - originally with 3 mo of VILLEDA, neck and arm pain - found to have cervical spondylosis with disc osteophytes causing severe right C4-5??NFS and stenosis at C5-6, also disc herniation at T2-3 with severe stenosis/cord compression - 03/13 : elective Anterior cervical discectomy and fusion at C4/5 &??C5/6 ??and posterior decompression/laminectomy??at T2-3 - MRI C&T post op ??Showed no fluid collection compressing the cord, but increased cord signal at T2/3 with unchanged size of herniation - myelogram 03/17: s/p T2-3 laminectomy. Posterior displacement of spinal canal with mild ventral indentation on thecal sac. Left T7-8 disc herniation and spurs encroaching on thecal sac. - steroids tapered off by neurosurg - MAP>60 - on midodrine, florinef, d/c levophed - Neuro check Q4 - Na goals high normal - salt tabs Analgesia: - prn tylenol, flexeril - gabapentin scheduled for spasms ?? Cardiovascular/Fluids: HTN - hold LEARNING CENTER COORDINATOR meds ?? Pulmonary: On RA, No issues ?? GI/NUT: - diet regular - bowel regimen ?? Renal/LYTES/Acid-Base: - Na goal >135 - salt tabs 3mg Urinary retention - required watkins reinsertion - keep for now. voiding trial later. If fails, need urology consult ?? Infectious Disease: WBC improved Hem/Onc/Coag: lovenox for DVT prophylaxis ?? Endocrine: BS goal 140-180 Musculoskeletal/Skin: No issues Access : CVC GI prophylaxis : ppi captain/check airman DVT prophylaxis : lovenox Code status : full Family update : to be updated This was discussed with attending physician, Dr. Omalley. Subjective: Review of Systems Constitutional: Negative for chills and fever. Respiratory: Negative for cough, hemoptysis and shortness of breath. Cardiovascular: Negative for chest pain. Gastrointestinal: Negative for abdominal pain, nausea and vomiting. Musculoskeletal: Positive for neck pain. Neurological: Positive for sensory change and focal weakness. Objective: Current vital signs Blood pressure 96/54, pulse 93, temperature 99.3 ??F (37.4 ??C), temperature source Axillary, resp.rate 20, height 5' 3 (1.6 m), weight 83.9 kg (185 lb), SpO2 97 %, not currently . 24 hour BP and temperature range BP: (85-142)/(47-96) Temp (24hrs), Av ??F (37.2 ??C), Min:98.5 ??F (36.9 ??C), Max:99.3 ??F (37.4 ??C) Input/Output 03/230 - 03/25 0659 In: 3237.5 [P.O.:2850; I.V.:387.5] Out: 3405 [Urine:3405] Physical Exam Physical Exam Constitutional: General: She is not in acute distress. HENT: Mouth/Throat: Mouth: Mucous membranes are moist. Eyes: Pupils: Pupils are equal, round, and reactive to light. Cardiovascular: Rate and Rhythm: Normal rate and regular rhythm. Pulses: Normal pulses. Pulmonary: Effort: Pulmonary effort is normal. Abdominal: General: Abdomen is flat. Palpations: Abdomen is soft. Neurological: Mental Status: She is alert. Comments: UEs: full strength/sensation RLE: able to dorsi and plantar flex, good effort against gravity. +sensation improved, minimal numbness LLE: +movement L foot, some effort against gravity. Sensation appears preserved Data Review: BMP: Recent Labs 03/23/21 0623 03/24/21 0352 03/25/21 06 GLUCOSE 121* 129* 103* BUN 32* 35* 27* CREAT 0.88 0.97* 0.75 NA 132* 137 138 K 4.5 4.5 4.2 CL 99 105 105 CO2 23 23 25 ANIONGAP 10 9 8 MG 2.1 2.0 2.1 estimated creatinine clearance is 57.6 mL/min (by C-G formula based on SCr of 0.75 mg/dL). LFTs: No results for input(s): ALKPHOS, ALT, AST, BILITOTAL, ALBUMIN, AMYLASE, LIPASE in the last 72 hours. CBC: Recent Labs 03/23/21 0603/24/21 0352 03/25/21 06 WBC 19.5* 10.9* 7.3 HGB 12.5 11.2* 9.5* HCT 38.3 35.0* 31.2* PLT 312 241 181 MCV 90.3 92.6 96.9 Coagulation: No results for input(s): PT, INR, APTT in the last 72 hours. ABG: No results found for: PHARTERIAL, XOK5NLC, PO2ART, EDA0EOS, BASEEXCESS, SO2ABG Central VBG: No results found for: PHMIXEDVEN, QL9ABNSJGC, CUK9ADMUNG, FOE0GEIVX, DR4REFN Lactic acid: Lab Results Component Value Date/Time LACTATE 1.8 03/13/2021 02:58 PM Radiology: Results for orders placed or performed during the hospital encounter of 03/13/21 XR CHEST PA OR AP 1 VW Narrative EXAMINATION: XR CHEST PA OR AP 1 VW HISTORY: Line Placement; Encounter for blood typing; Cervical spondylosis with radiculopathy DATE: 03/17/2021 5:15 PM COMPARISON: No prior study is available for comparison. FINDINGS: Left subclavian approach central venous catheter terminates in the SVC. Lungs are well-inflated. No focal consolidation or pneumothorax. Minimal blunting of the costophrenic angles may relate to small effusions or basilar scarring. The cardiomediastinal silhouette is normal for portable technique. INCIDENTAL FINDINGS: None. Impression IMPRESSION: Left subclavian catheter terminates in the SVC. No pneumothorax. No focal consolidation.. DICTATION LOCATION: Location 1 - [facility] Problems Diagnosis ??? Hyponatremia ??? Brown-Sequard syndrome ??? Urinary retention ??? Neurological deficit present ??? Cord compression ??? Cervical spondylosis with radiculopathy Resolved Hospital Problems No resolved problems to display. Jocelin Goins MD Critical Care Fellow 03/25/21 8:36 AM ICAL DIETICIAN * Katherin Patton MD - 03/25/2021 8:30 AM CST In good spirits this morning Right leg is stronger and left leg is improving as well Left leg now has some proximal muscle contraction Transfer out of ICU and set rehab up as soon as we can get her a bed Katherin Patton MD ICAL DIETICIAN * Loi Omalley MD - 03/25/2021 7:53 AM CST Critical Care Daily Note Reason for ICU admission: Cervical stenosis with spinal cord edema I reviewed the medical record including the applicable Critical Care Medicine resident, Fellow, NETWORK MGR or PA???s note from today. I independently examined the patient. I discussed the history, physical findings, laboratory findings, assessment and plan with the applicable resident/Fellow/NETWORK MGR/PA on rounds. I have reviewed the physical exam findings in the applicable resident/Fellow/NETWORK MGR/PA's note; my notable physical exam findings include: 03/25. Has been weaned off Levophed with change in MAP goals. Still on midodrine. Neuro: A&Ox4, follows commands, PERRL, b/l UE 5/5 MS, RLE 4/5 in quadriceps and dorsiflexion/extension, LLE 2/5 in toes, 1/5 in rest of ext. Periodic spasms noted Cardiac: S1S2 normal Pulm: Clear to auscultation Abdomen: Soft, NT/ND, +BS Skin: no rashes Extremities: Warm, no edema present Vasc: radial and dorsal pedal pulses intact symmetric I have reviewed the assessment and plan in the applicable resident/Fellow/NETWORK MGR/PA's note. Notable amendments to the assessment and plan include: Neuro - Cervical spondylosis with severe stenosis and disc herniation.Brown Sequard syndrome. S/p ACDF C4/5and posterior t2-3 decompression. B/l LE weakness and loss sensation surrounding surgery. Suspecting reperfusion injury. MRI shows edema and osteophyte at T1-2. Myelogram without evidence of ongoing compression. Sensation and strength improving. Continue MAP goal >60 with midodrine. Off Levophedmaintain eunatremia. Will need Rehab Neuropathic pain: continue gabapentin Muscle spasm: Treat CV/FLUIDS - MAP goal >60, on midodrine, Florinef GI: Constipation: now having BMs. Continue miralax, colace, prn lactulose and give suppository GERD: PPI Renal/lytes: Urinary retention: possible neurogenic bladder, required reinstertion of watkins with urinary retention. Consider repeat voiding trial as she improves. Hyponatremia--> Salt tablets. Family Communication: updated E/M. Level II Active Hospital Problems Diagnosis ??? Hyponatremia ??? Brown-Sequard syndrome ??? Urinary retention ??? Neurological deficit present ??? Cord compression ??? Cervical spondylosis with radiculopathy Resolved Hospital Problems No resolved problems to display. ICAL DIETICIAN * David Robb RN - 03/25/2021 12:10 AM CST End of Shift Note: No Acute events. Levo weaned to OFF @ 0610 ??MAPs currently ranging 61-69 since d/c q15min Neuro:??Q4 neuro checks. A&Ox4. FC. PERRLA 3. BLE: decreased sensation & wiggles toes; R > L.??Able to lift right leg off bed.??BUE: normal sensation; strong. Decreased sensation to umbilicus;??improving.?Muscle spasms @~2300 with refusal of flexeril due to drowsiness. ??Eunatremia goal; Na tabs given. ?? Resp:??RA. Clear lung sounds.? CV:??SB- NSR??50s-??90s. SBP??90s-??130s. Levo titrated for MAP goal of??> 60 (OFF now as above).?2/2. Afebrile. SCDs??off; lovenox given.? GI:??general diet tolerating well. No BM this shift ? :??watkins w/ adequate output. ?? Skin:??undress/assess done by Roseanna RN & David RN. No new skin issues. 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 Patient Goals Not Met: Coordinate rehab. ICAL DIETICIAN * Tiara Alvares - 03/24/2021 1:15 PM CST Acute Rehab following. Pending medical stability, progression with therapy and physician approval. Patient will require dopplers if unable to be fully anticoagulated if needed at rehab. Will continueto follow. ICAL DIETICIAN * Radha Chanel PA - 03/24/2021 12:12 PM CST Neurosurgery Progress Note Vick Tanner 1955 No new events overnight. Continued to be on Levo for MAP goal She denies any posterior cervical neck pain or any radicular pain. Patient was able to lift left heel off bed today Active Hospital Problems Diagnosis ??? Neurological deficit present ??? Cord compression ??? Cervical spondylosis with radiculopathy Resolved Hospital Problems No resolved problems to display. Vitals: 03/24/21 0800 03/24/21 0900 03/24/21 1000 03/24/21 1100 BP: 129/53 116/58 95/62 103/67 Pulse: 74 85 (!) 108 (!) 110 Resp: Temp: 98.9 ??F (37.2 ??C) TempSrc: Axillary SpO2: Weight: Height: PE: Constitutional: Well developed, well nourished, in no active diostress Heart: Regular rate and rhythm Lungs: Non-labored respirations, no wheezing Abdomen: soft, non-distended Extremities: warm, no rash or ecchymosis Neuro: Awake, Alert, Ox3. PERRL, EOMI Speech intact. Follows all commands. Sensory - decreased light touch in the right leg, with normal light touch sensation in the left leg. Normal light touch sensation in the upper extremities bilaterally. Motor strength in the upper extremities is 5/5 bilaterally Strength is 3-4/5 in the right lower extremity and 1/5 in the left lower extremity. Able to lift left heel off bed Anterior cervical incision is clean/dry/intact Recent Labs 03/22/21 0553 03/23/21 0623 03/24/21 0352 WBC 10.0* 19.5* 10.9* HGB 12.3 12.5 11.2* HCT 38.8 38.3 35.0* PLT 267 312 241 NA 135* 132* 137 K 4.4 4.5 4.5 CL 101 99 105 CO2 25 23 23 BUN 28* 32* 35* CREAT 0.83 0.88 0.97* GLUCOSE 112* 121* 129* Impression/Plan: POD 11 S/P two level ACDF and T2-T3 laminectomy with Brown Sequard syndrome. Neuro exam stable, maybe slight improvement in BLE strength Avoid hyponatremia, Na 137 today - on salt tabs MAP goal >60. Ideally this would be achieved without the requirement of the Fernando-Synephrine. Anticipate discharge to a rehab facility once the patient's blood pressure remains in the acceptable range without requirement of IV pressors. Pain--well controlled DVT prophylaxis -pneumatic compression stockings and Lovenox. Radha Chanel PA-C 03/24/2021 ICAL DIETICIAN * Vick Higgins RD - 03/24/2021 11:18 AM CST Images from the original note were not included. CLINICAL DIETITIAN PROGRESS NOTE [facility] Follow Up Nutrition Assessment Vick??is a 65 y.o.??female??who presents for posterior headaches, neck and right arm pain.?? S/P Anterior cervical discectomy and fusion at??C4-C5 and C5-C6. ??T2/3 laminectomy Assessment: Recent Labs 03/22/21 0553 03/23/21 0623 03/24/21 0352 GLUCOSE 112* 121* 129* BUN 28* 32* 35* CREAT 0.83 0.88 0.97* GFR >60 >60 58 NA 135* 132* 137 K 4.4 4.5 4.5 CL 101 99 105 CO2 25 23 23 ANIONGAP 9 10 9 CA 8.7 8.7 8.1* MG 2.2 2.1 2.0 PO4 4.1 -- -- ALBUMIN 3.3* -- -- Labs noted. Meds noted including colace, levo, miralax Skin: See Flowsheet for more wound documentation Anthropometrics: Height: 5' 3 (160 cm) (03/14/21 0130) Weight: 83.9 kg (185 lb) (03/13/21 1010) Body mass index is 32.77 kg/m??. Last Bowel Movement (mm/dd/yyyy): 03/23/21 (03/23/21 1200) Nutrition Prescription: DIET GENERAL Effective Now D: Same/ Increased nutrient needs I:Nutrition Intervention: DIET GENERAL Effective Now Po intake good on general diet. Bowel movements noted. Recommend change miralax to bid. Goal: Consume 75% of meals/ supplements Will follow. M/E: 1. Continue to monitor: Anthropometrics, Digestive, Skin, and Biochemical data 2. Follow up every 4-7 days and as needed. ICAL DIETICIAN * Loi Omalley MD - 03/24/2021 9:32 AM CST Critical Care Daily Note Reason for ICU admission: Cervical stenosis with spinal cord edema I reviewed the medical record including the applicable Critical Care Medicine resident, Fellow, NETWORK MGR or PA???s note from today. I independently examined the patient. I discussed the history, physical findings, laboratory findings, assessment and plan with the applicable resident/Fellow/NETWORK MGR/PA on rounds. I have reviewed the physical exam findings in the applicable resident/Fellow/NETWORK MGR/PA's note; my notable physical exam findings include: Neuro: A&Ox4, follows commands, PERRL, b/l UE 5/5 MS, RLE 4/5 in quadriceps and dorsiflexion/extension, LLE 2/5 in toes, 1/5 in rest of ext Cardiac: S1S2 normal Pulm: Clear to auscultation Abdomen: Soft, NT/ND, +BS Skin: no rashes Extremities: Warm, no edema present Vasc: radial and dorsal pedal pulses intact symmetric I have reviewed the assessment and plan in the applicable resident/Fellow/NETWORK MGR/PA's note. Notable amendments to the assessment and plan include: Neuro - Cervical spondylosis with severe stenosis and disc herniation.Brown Sequard syndrome. S/p ACDF C4/5and posterior t2-3 decompression. B/l LE weakness and loss sensation surrounding surgery. Suspecting reperfusion injury. MRI shows edema and osteophyte at T1-2. Myelogram without evidence of ongoing compression. Sensation and strength improving. Continue MAP goal >60 with midodrine and levophed.Maintain eunatremia. Will need Rehab Neuropathic pain: continue gabapentin Muscle spasm: Treat CV/FLUIDS - MAP goal >60, midodrine increased, florinef, titrate levophed as needed. Give fluid bolus GI: Constipation: now having BMs. Continue miralax, colace, prn lactulose and give suppository GERD: PPI Renal/lytes: Urinary retention: possible neurogenic bladder, required reinstertion of watkins with urinary retention. Consider repeat voiding trial as she improves. Hyponatremia--> Salt tablets. Family Communication: updated E/M. Level II Active Hospital Problems Diagnosis ??? Neurological deficit present ??? Cord compression ??? Cervical spondylosis with radiculopathy Resolved Hospital Problems No resolved problems to display. ICAL DIETICIAN * Jocelin Goins MD - 03/24/2021 8:51 AM CST CRITICAL CARE MEDICINE DAILY PROGRESS NOTE HPI: Vick??is a 65 y.o.??female??who presented originally with 3 mo of VILLEDA, neck and arm pain - found to have cervical spondylosis with disc osteophytes causing severe right C4-5??NFS and stenosis at C5-6, also disc herniation at T2- 3 with severe stenosis/cord compression. 03/13 She underwent lective Anterior cervical discectomy and fusion at C4/5 &??C5/6 ??and posterior decompression/laminectomy??at T2-[address] Patton. Post operatively patient had development of left leg weakness and sensation deficits. As per NSGY in PACU; BLE ??Right leg 1-2/5 and left legt flicker of movement. Sensation decreased??RLE compared to LLE. 70 cc of CSF was drained. STAT MRI C&T Showed no fluid collection compressing the cord, but increased cord signal at T2/3 with unchanged size of herniation. Transferred to ICU for further management. ICU Timeline: 03/14: admitted, required low dose levo to maintain MAP goals 03/15 : slightly improved strength and sensation especially RLE 03/16: continues to have slight neuro improvement. Only briefly on levo <1hr. Still having severespasms in legs. Tapering dexa 03/17: CVC switched, BP low when working with therapy. Myelogram without significant residual or persistent cord compression 03/18-03/22: on/off low dose levo Overnight: on levo for MAP>70. Assessment and Plan: Neuro/Psych: Spinal cord contusion/edema C4-6 cervical stenosis s/p ACDF T2/3 stenosis 2/2 calcified disc herniation s/p laminectomy - originally with 3 mo of VILLEDA, neck and arm pain - found to have cervical spondylosis with disc osteophytes causing severe right C4-5??NFS and stenosis at C5-6, also disc herniation at T2-3 with severe stenosis/cord compression - 03/13 : elective Anterior cervical discectomy and fusion at C4/5 &??C5/6 ??and posterior decompression/laminectomy??at T2-3 - MRI C&T post op ??Showed no fluid collection compressing the cord, but increased cord signal at T2/3 with unchanged size of herniation - myelogram 03/17: s/p T2-3 laminectomy. Posterior displacement of spinal canal with mild ventral indentation on thecal sac. Left T7-8 disc herniation and spurs encroaching on thecal sac. - steroids tapered off by neurosurg - MAP>60 (liberalize today) - on midodrine, florinef, levo as needed - Neuro check Q4 - Na goals high normal - salt tabs Analgesia: - prn tylenol, flexeril - gabapentin scheduled for spasms ?? Cardiovascular/Fluids: Goal MAP>60. S/p 7days of increased MAP goals - levo as needed - midodrine 15 TID - florinef 0.2 HTN - hold LEARNING CENTER COORDINATOR meds ?? Pulmonary: On RA, No issues ?? GI/NUT: - diet regular - bowel regimen ?? Renal/LYTES/Acid-Base: - Na goal >135 - salt tabs 3mg Urinary retention - required watkins reinsertion - keep for now. voiding trial later. ?? Infectious Disease: ?? WBC improved Hem/Onc/Coag: ?? lovenox for DVT prophylaxis ?? Endocrine: ?? BS goal 140-180 Musculoskeletal/Skin: ?? 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 Omalley. Subjective: Review of Systems Constitutional: Negative for chills and fever. Respiratory: Negative for cough, hemoptysis and shortness of breath. Cardiovascular: Negative for chest pain. Gastrointestinal: Negative for abdominal pain, nausea and vomiting. Musculoskeletal: Positive for neck pain. Neurological: Positive for sensory change and focal weakness. Objective: Current vital signs Blood pressure 133/58, pulse 75, temperature 98.2 ??F (36.8 ??C), temperature source Axillary, resp. rate 20, height 5' 3 (1.6 m), weight 83.9 kg (185 lb), SpO2 99 %, not currently . 24 hour BP and temperature range BP: (95-150)/(42-81) Temp (24hrs), Av.3 ??F (36.8 ??C), Min:98.2 ??F (36.8 ??C), Max:98.5 ??F (36.9 ??C) Input/Output 03/22 1900 - 03/24 0659 In: 2852.8 [P.O.:1800; I.V.:1052.8] Out: 3301 [Urine:3301] Physical Exam Physical Exam Constitutional: General: She is not in acute distress. HENT: Mouth/Throat: Mouth: Mucous membranes are moist. Eyes: Pupils: Pupils are equal, round, and reactive to light. Cardiovascular: Rate and Rhythm: Normal rate and regular rhythm. Pulses: Normal pulses. Pulmonary: Effort: Pulmonary effort is normal. Abdominal: General: Abdomen is flat. Palpations: Abdomen is soft. Neurological: Mental Status: She is alert. Comments: UEs: full strength/sensation RLE: able to dorsi and plantar flex, good effort against gravity. +sensation improved, minimal numbness LLE: +movement L foot, some effort against gravity. Sensation appears preserved Data Review: BMP: Recent Labs 03/22/21 0553 03/23/2162203/24/21 0352 GLUCOSE 112* 121* 129* BUN 28* 32* 35* CREAT 0.83 0.88 0.97* NA 135* 132* 137 K 4.4 4.5 4.5 CL 101 99 105 CO2 25 23 23 ANIONGAP 9 10 9 MG 2.2 2.1 2.0 PO4 4.1 -- -- estimated creatinine clearance is 57.6 mL/min (A) (by C-G formula based on SCr of 0.97 mg/dL (H)). LFTs: Recent Labs 03/22/21552 ALBUMIN 3.3* CBC: Recent Labs 03/22/21 0553 03/23/2123 03/24/21 0352 WBC 10.0* 19.5* 10.9* HGB 12.3 12.5 11.2* HCT 38.8 38.3 35.0* PLT 267 312 241 MCV 92.2 90.3 92.6 Coagulation: No results for input(s): PT, INR, APTT in the last 72 hours. ABG: No results found for: PHARTERIAL, GCI9MTT, PO2ART, NOR3IDT, BASEEXCESS, SO2ABG Central VBG: No results found for: PHMIXEDVEN, QQ3REHNXBX, LSB0EAYVSF, OKW7UVECJ, TX2RCBF Lactic acid: Lab Results Component Value Date/Time LACTATE 1.8 03/13/2021 02:58 PM Radiology: Results for orders placed or performed during the hospital encounter of 03/13/21 XR CHEST PA OR AP 1 VW Narrative EXAMINATION: XR CHEST PA OR AP 1 VW HISTORY: Line Placement; Encounter for blood typing; Cervical spondylosis with radiculopathy DATE: 03/17/2021 5:15 PM COMPARISON: No prior study is available for comparison. FINDINGS: Left subclavian approach central venous catheter terminates in the SVC. Lungs are well-inflated. No focal consolidation or pneumothorax. Minimal blunting of the costophrenic angles may relate to small effusions or basilar scarring. The cardiomediastinal silhouette is normal for portable technique. INCIDENTAL FINDINGS: None. Impression IMPRESSION: Left subclavian catheter terminates in the SVC. No pneumothorax. No focal consolidation.. DICTATION LOCATION: Location 1 - [facility] Hospital Problems Diagnosis ??? Neurological deficit present ??? Cord compression ??? Cervical spondylosis with radiculopathy Resolved Hospital Problems No resolved problems to display. Jocelin Goins MD Critical Care Fellow 03/24/21 8:51 AM ICAL DIETICIAN * Silvestre Levine, DO - 03/23/2021 8:45 AM CST Critical Care Daily Note Reason for ICU admission: Cervical stenosis with spinal cord edema I reviewed the medical record including the applicable Critical Care Medicine resident, Fellow, NETWORK MGR or PA???s note from today. I independently examined the patient. I discussed the history, physical findings, laboratory findings, assessment and plan with the applicable resident/Fellow/NETWORK MGR/PA on rounds. I have reviewed the physical exam findings in the applicable resident/Fellow/NETWORK MGR/PA's note; my notable physical exam findings include: Neuro: A&Ox4, follows commands, PERRL, b/l UE 5/5 MS, RLE 4/5 in quadriceps and dorsiflexion/extension, LLE 2/5 in toes, 1/5 in rest of ext Cardiac: RRR without m/r/g Pulm: CTAB without w/r/r Abdomen: Soft, NT/ND, +BS Skin: no rashes Extremities: Warm, no edema present Vasc: radial and dorsal pedal pulses intact symmetric I have reviewed the assessment and plan in the applicable resident/Fellow/NETWORK MGR/PA's note. Notable amendments to the assessment and plan include: Neuro - Cervical spondylosis with severe stenosis and disc herniation. S/p ACDF C4/5 and posterior t2-3 decompression. B/l LE weakness and loss sensation surrounding surgery. Suspecting reperfusion injury. MRI shows edema and osteophyte at T1-2. Myelogram without evidence of ongoing compression. Sensation and strength improving. Continue MAP goal >70 with midodrine and levophed. Maintain eunatremia. Neuropathic pain: continue gabapentin Muscle spasm: continue zanadine prn CV/FLUIDS - MAP goal >70, midodrine increased, florinef, titrate levophed as needed. Give fluid bolus GI: Constipation: now having BMs. Continue miralax, colace, prn lactulose and give suppository GERD: PPI Renal/lytes: Urinary retention: possible neurogenic bladder, required reinstertion of watkins with urinary retention. Consider repeat voiding trial as she improves. Family Communication: updated Active Hospital Problems Diagnosis ??? Neurological deficit present ??? Cord compression ??? Cervical spondylosis with radiculopathy Resolved Hospital Problems No resolved problems to display. ICAL DIETICIAN * Jocelin Goins MD - 03/23/2021 8:10 AM CST CRITICAL CARE MEDICINE DAILY PROGRESS NOTE HPI: Vick??is a 65 y.o.??female??who presented originally with 3 mo of VILLEDA, neck and arm pain - found to have cervical spondylosis with disc osteophytes causing severe right C4-5??NFS and stenosis at C5-6, also disc herniation at T2- 3 with severe stenosis/cord compression. 03/13 She underwent lective Anterior cervical discectomy and fusion at C4/5 &??C5/6 ??and posterior decompression/laminectomy??at T2-[address] Patton. Post operatively patient had development of left leg weakness and sensation deficits. As per NSGY in PACU; BLE ??Right leg 1-2/5 and left legt flicker of movement. Sensation decreased??RLE compared to LLE. 70 cc of CSF was drained. STAT MRI C&T Showed no fluid collection compressing the cord, but increased cord signal at T2/3 with unchanged size of herniation. Transferred to ICU for further management. ICU Timeline: 03/14: admitted, required low dose levo to maintain MAP goals 03/15 : slightly improved strength and sensation especially RLE 03/16: continues to have slight neuro improvement. Only briefly on levo <1hr. Still having severespasms in legs. Tapering dexa 12/6: CVC switched, BP low when working with therapy. Myelogram without significant residual or persistent cord compression 03/18-03/22: on/off low dose levo Overnight: on levo for MAP>70. Assessment and Plan: Neuro/Psych: Spinal cord contusion/edema C4-6 cervical stenosis s/p ACDF T2/3 stenosis 2/2 calcified disc herniation s/p laminectomy - originally with 3 mo of VILLEDA, neck and arm pain - found to have cervical spondylosis with disc osteophytes causing severe right C4-5??NFS and stenosis at C5-6, also disc herniation at T2-3 with severe stenosis/cord compression - 03/13 : elective Anterior cervical discectomy and fusion at C4/5 &??C5/6 ??and posterior decompression/laminectomy??at T2-3 - MRI C&T post op ??Showed no fluid collection compressing the cord, but increased cord signal at T2/3 with unchanged size of herniation - myelogram 03/17: s/p T2-3 laminectomy. Posterior displacement of spinal canal with mild ventral indentation on thecal sac. Left T7-8 disc herniation and spurs encroaching on thecal sac. - steroids tapered off by neurosurg - MAP>70 - on midodrine, florinef - increase dose, levo as needed - Neuro check Q4 - Na goals high normal - salt tabs Analgesia: - prn tylenol, tizanidine - gabapentin scheduled for spasms ?? Cardiovascular/Fluids: Goal MAP>70 to enhance spinal cord perfusion - levo as needed - midodrine 15 TID - florinef 0.2 HTN - hold LE[employer] CENTER COORDINATOR meds ?? Pulmonary: On RA, No issues ?? GI/NUT: - diet regular - bowel regimen - had BM overnight ?? Renal/LYTES/Acid-Base: - Na goal >135 - salt tabs 3mg Urinary retention - required watkins reinsertion - keep for now. voiding trial later. ?? Infectious Disease: ?? WBC up today, unclear significance Hem/Onc/Coag: ?? lovenox for DVT prophylaxis ?? Endocrine: ?? BS goal 140-180 Musculoskeletal/Skin: ?? 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 Levine . Subjective: Review of Systems Constitutional: Negative for chills and fever. Respiratory: Negative for cough, hemoptysis and shortness of breath. Cardiovascular: Negative for chest pain. Gastrointestinal: Negative for abdominal pain, nausea and vomiting. Musculoskeletal: Positive for neck pain. Neurological: Positive for sensory change and focal weakness. Objective: Current vital signs Blood pressure 129/58, pulse 66, temperature 98.1 ??F (36.7 ??C), temperature source Oral, resp. rate 20, height 5' 3 (1.6 m), weight 83.9 kg (185 lb), SpO2 99 %, not currently . 24 hour BP and temperature range BP: (100-136)/(47-70) Temp (24hrs), Av.3 ??F (36.8 ??C), Min:98.1 ??F (36.7 ??C), Max:98.4 ??F (36.9 ??C) Input/Output 03/21 1900 - 03/23 0659 In: 1379.8 [P.O.:1050; I.V.:329.8] Out: 3175 [Urine:3175] Physical Exam Physical Exam Constitutional: General: She is not in acute distress. HENT: Mouth/Throat: Mouth: Mucous membranes are moist. Eyes: Pupils: Pupils are equal, round, and reactive to light. Cardiovascular: Rate and Rhythm: Normal rate and regular rhythm. Pulses: Normal pulses. Pulmonary: Effort: Pulmonary effort is normal. Abdominal: General: Abdomen is flat. Palpations: Abdomen is soft. Neurological: Mental Status: She is alert. Comments: UEs: full strength/sensation RLE: able to dorsi and plantar flex, good effort against gravity. +sensation improved, minimal numbness LLE: +movement L foot, some effort against gravity. Sensation appears preserved Data Review: BMP: Recent Labs 03/21/21 0608 03/22/21 0553 03/23/21 0623 GLUCOSE 113* 112* 121* BUN 28* 28* 32* CREAT 0.79 0.83 0.88 NA 134* 135* 132* K 4.5 4.4 4.5 CL 99 101 99 CO2 25 25 23 ANIONGAP 10 9 10 MG 2.4 2.2 2.1 PO4 3.7 4.1 -- estimated creatinine clearance is 57.6 mL/min (by C-G formula based on SCr of 0.88 mg/dL). LFTs: Recent Labs 03/21/21 0608 03/22/21 0553 ALBUMIN 3.3* 3.3* CBC: Recent Labs 03/21/21 0608 03/22/21 0553 03/23/21 0623 WBC 10.4* 10.0* 19.5* HGB 12.0 12.3 12.5 HCT 37.7 38.8 38.3 PLT 255 267 312 MCV 92.0 92.2 90.3 Coagulation: No results for input(s): PT, INR, APTT in the last 72 hours. ABG: No results found for: PHARTERIAL, HVG2OIW, PO2ART, KDM3EUZ, BASEEXCESS, SO2ABG Central VBG: No results found for: PHMIXEDVEN, [id number], RYB4AXYVJC, JBL8OATLP, FI2DLPU Lactic acid: Lab Results Component Value Date/Time LACTATE 1.8 03/13/2021 02:58 PM Radiology: Results for orders placed or performed during the hospital encounter of 03/13/21 XR CHEST PA OR AP 1 VW Narrative EXAMINATION: XR CHEST PA OR AP 1 VW HISTORY: Line Placement; Encounter for blood typing; Cervical spondylosis with radiculopathy DATE: 03/17/2021 5:15 PM COMPARISON: No prior study is available for comparison. FINDINGS: Left subclavian approach central venous catheter terminates in the SVC. Lungs are well-inflated. No focal consolidation or pneumothorax. Minimal blunting of the costophrenic angles may relate to small effusions or basilar scarring. The cardiomediastinal silhouette is normal for portable technique. INCIDENTAL FINDINGS: None. Impression IMPRESSION: Left subclavian catheter terminates in the SVC. No pneumothorax. No focal consolidation.. DICTATION LOCATION: Location 1 - [facility] Active Hospital Problems Diagnosis ??? Neurological deficit present ??? Cord compression ??? Cervical spondylosis with radiculopathy Resolved Hospital Problems No resolved problems to display. Jocelin Goins MD Critical Care Fellow 03/23/21 8:10 AM ICAL DIETICIAN Erik Harrison MD - 03/23/2021 7:26 AM CST Neurosurgery Progress Note Vick Tanner 1955 No new events overnight. The patient continues to require Fernando-Synephrine to maintain a MAP of 70. She denies any posterior cervical neck pain or any radicular pain. Active Hospital Problems Diagnosis ??? Neurological deficit present ??? Cord compression ??? Cervical spondylosis with radiculopathy Resolved Hospital Problems No resolved problems to display. Vitals: 03/23/21 0400 03/23/21 0500 03/23/21 0600 03/23/21 0700 BP: 107/47 108/48 116/51 129/58 Pulse: 61 62 67 66 Resp: Temp: 98.1 ??F (36.7 ??C) TempSrc: Oral SpO2: Weight: Height: PE: Constitutional: Well developed, well nourished, in no active diostress Heart: Regular rate and rhythm Lungs: Non-labored respirations, no wheezing Abdomen: soft, non-distended Extremities: warm, no rash or ecchymosis Neuro: Awake, Alert, Ox3. PERRL, EOMI Speech intact. Follows all commands. Sensory - decreased light touch in the right leg, with normal light touch sensation in the left leg. Normal light touch sensation in the upper extremities bilaterally. Motor strength in the upper extremities is 5/5 bilaterally Strength is 3-4/5 in the right lower extremity and 1/5 in the left lower extremity. 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 Neuro exam stable The present hyponatremia of 132 would be best avoided, will begin sodium chloride tablets Continue efforts at maintaining a mean arterial pressure of 70. Ideally this would be achieved without the requirement of the Fernando-Synephrine. Anticipate discharge to a rehab facility once the patient's blood pressure remains in the acceptable range without requirement of IV pressors. Pain--well controlled DVT prophylaxis -pneumatic compression stockings and Lovenox. Erik Sierra MD 03/23/2021 ICAL DIETICIAN * Jocelin Goins MD - 03/22/2021 10:17 AM CST CRITICAL CARE MEDICINE DAILY PROGRESS NOTE HPI: Vick??is a 65 y.o.??female??who presented originally with 3 mo of VILLEDA, neck and arm pain - found to have cervical spondylosis with disc osteophytes causing severe right C4-5??NFS and stenosis at C5-6, also disc herniation at T2- 3 with severe stenosis/cord compression. 03/13 She underwent lective Anterior cervical discectomy and fusion at C4/5 &??C5/6 ??and posterior decompression/laminectomy??at T2-[address] Patton. Post operatively patient had development of left leg weakness and sensation deficits. As per NSGY in PACU; BLE ??Right leg 1-2/5 and left legt flicker of movement. Sensation decreased??RLE compared to LLE. 70 cc of CSF was drained. STAT MRI C&T Showed no fluid collection compressing the cord, but increased cord signal at T2/3 with unchanged size of herniation. Transferred to ICU for further management. ICU Timeline: 03/14: admitted, required low dose levo to maintain MAP goals 03/15 : slightly improved strength and sensation especially RLE 03/16: continues to have slight neuro improvement. Only briefly on levo <1hr. Still having severespasms in legs. Tapering dexa 03/17: CVC switched, BP low when working with therapy. Myelogram without significant residual or persistent cord compression 03/18-03/21: on/off low dose levo Overnight: on low dose pressors for MAP>70. Assessment and Plan: Neuro/Psych: Spinal cord contusion/edema C4-6 cervical stenosis s/p ACDF T2/3 stenosis 2/2 calcified disc herniation s/p laminectomy - originally with 3 mo of VILLEDA, neck and arm pain - found to have cervical spondylosis with disc osteophytes causing severe right C4-5??NFS and stenosis at C5-6, also disc herniation at T2-3 with severe stenosis/cord compression - 03/13 : elective Anterior cervical discectomy and fusion at C4/5 &??C5/6 ??and posterior decompression/laminectomy??at T2-3 - MRI C&T post op ??Showed no fluid collection compressing the cord, but increased cord signal at T2/3 with unchanged size of herniation - myelogram 03/17: s/p T2-3 laminectomy. Posterior displacement of spinal canal with mild ventral indentation on thecal sac. Left T7-8 disc herniation and spurs encroaching on thecal sac. - steroids tapered off by neurosurg - MAP>70 - increase midodrine, added florinef yesterday, levo as needed - Neuro check Q4 - Na goals high normal - salt tabs Analgesia: - prn tylenol, tizanidine - gabapentin scheduled for spasms ?? Cardiovascular/Fluids: Goal MAP>70 to enhance spinal cord perfusion - levo as needed - midodrine 15 TID - florinef HTN - hold [employer] COORDINATOR meds ?? Pulmonary: On RA, No issues ?? GI/NUT: - diet regular - bowel regimen - still no BM - add lactulose, suppository ?? Renal/LYTES/Acid-Base: - Na goal >135 - salt tabs 2mg Urinary retention - required watkins reinsertion - keep for now. voiding trial later. ?? Infectious Disease: ?? No issues Hem/Onc/Coag: ?? lovenox for DVT prophylaxis ?? Endocrine: ?? BS goal 140-180 Musculoskeletal/Skin: ?? 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 Levine . Subjective: Review of Systems Constitutional: Negative for chills and fever. Respiratory: Negative for cough, hemoptysis and shortness of breath. Cardiovascular: Negative for chest pain. Gastrointestinal: Negative for abdominal pain, nausea and vomiting. Musculoskeletal: Positive for neck pain. Neurological: Positive for sensory change and focal weakness. Objective: Current vital signs Blood pressure 113/59, pulse 81, temperature 98.5 ??F (36.9 ??C), temperature source Oral, resp. rate 22, height 5' 3 (1.6 m), weight 83.9 kg (185 lb), SpO2 97 %, not currently . 24 hour BP and temperature range BP: (80-126)/(48-78) Temp (24hrs), Av.8 ??F (37.1 ??C), Min:98.5 ??F (36.9 ??C), Max:99 ??F (37.2 ??C) Input/Output 03/200 - 03/22 0659 In: 863.1 [P.O.:760; I.V.:103.1] Out: 3350 [Urine:3350] Physical Exam Physical Exam Constitutional: General: She is not in acute distress. HENT: Mouth/Throat: Mouth: Mucous membranes are moist. Eyes: Pupils: Pupils are equal, round, and reactive to light. Cardiovascular: Rate and Rhythm: Normal rate and regular rhythm. Pulses: Normal pulses. Pulmonary: Effort: Pulmonary effort is normal. Abdominal: General: Abdomen is flat. Palpations: Abdomen is soft. Neurological: Mental Status: She is alert. Comments: UEs: full strength/sensation RLE: able to dorsi and plantar flex, good effort against gravity. +sensation improved, minimal numbness LLE: +movement L foot, some effort against gravity. Sensation appears preserved Data Review: BMP: Recent Labs 03/20/2143603/21/21 0603/22/21 0553 GLUCOSE 120* 120* 113* 112* BUN 35* 35* 28* 28* CREAT 0.98* 0.98* 0.79 0.83 NA 136 136 134* 135* K 4.7 4.7 4.5 4.4 CL 102 102 99 101 CO2 26 26 25 25 ANIONGAP 8 8 10 9 MG 2.3 2.4 2.2 PO4 3.1 3.7 4.1 estimated creatinine clearance is 57.6 mL/min (by C-G formula based on SCr of 0.83 mg/dL). LFTs: Recent Labs 03/20/2143603/21/21 0608 03/22/21 0553 ALBUMIN 3.1* 3.3* 3.3* CBC: Recent Labs 03/20/21 0437 03/21/21 0608 03/22/21 0553 WBC 12.1* 10.4* 10.0* HGB 12.5 12.0 12.3 HCT 37.9 37.7 38.8 PLT 305 255 267 MCV 91.5 92.0 92.2 Coagulation: No results for input(s): PT, INR, APTT in the last 72 hours. ABG: No results found for: PHARTERIAL, PEL8TRM, PO2ART, VUV1PEI, BASEEXCESS, SO2ABG Central VBG: No results found for: PHMIXEDVEN, MM5NGGOPFC, KXF6MAWRAL, XCI8XMSXL, PB7ZKWR Lactic acid: Lab Results Component Value Date/Time LACTATE 1.8 03/13/2021 02:58 PM Radiology: Results for orders placed or performed during the hospital encounter of 03/13/21 XR CHEST PA OR AP 1 VW Narrative EXAMINATION: XR CHEST PA OR AP 1 VW HISTORY: Line Placement; Encounter for blood typing; Cervical spondylosis with radiculopathy DATE: 03/17/2021 5:15 PM COMPARISON: No prior study is available for comparison. FINDINGS: Left subclavian approach central venous catheter terminates in the SVC. Lungs are well-inflated. No focal consolidation or pneumothorax. Minimal blunting of the costophrenic angles may relate to small effusions or basilar scarring. The cardiomediastinal silhouette is normal for portable technique. INCIDENTAL FINDINGS: None. Impression IMPRESSION: Left subclavian catheter terminates in the SVC. No pneumothorax. No focal consolidation.. DICTATION LOCATION: Location 1 - [facility] Active Hospital Problems Diagnosis ??? Neurological deficit present ??? Cord compression ??? Cervical spondylosis with radiculopathy Resolved Hospital Problems No resolved problems to display. Jocelin Goins MD Critical Care Fellow 03/22/21 10:17 AM ICAL DIETICIAN * Erik Sierra MD - 03/22/2021 10:09 AM CST Neurosurgery Progress Note Vick Tanner 1955 The patient indicates that she is in very good spirits this morning. She feels as though she has improved, noting improved strength in her left gluteal muscles. She continues to require Fernando-Synephrine to maintain a MAP of 70, with a recent requirement to increase this medication in order to do so. Active Hospital Problems Diagnosis ??? Neurological deficit present ??? Cord compression ??? Cervical spondylosis with radiculopathy Resolved Hospital Problems No resolved problems to display. Vitals: 03/21/21199903/21/21201403/21/21202903/21/212044 BP: (!) 80/48 98/56 113/59 Pulse: (!) 109 93 81 Resp: Temp: 98.5 ??F (36.9 ??C) TempSrc: Oral SpO2: Weight: Height: PE: Constitutional: Well developed, well nourished, in no active diostress Heart: Regular rate and rhythm Lungs: Non-labored respirations, no wheezing Abdomen: soft, non-distended Extremities: warm, no rash or ecchymosis Neuro: Awake, Alert, Ox3. PERRL, EOMI Speech intact. Follows all commands. Strength is 3/4 out of 5in the right lower extremity and 1/5 in the left lower extremity throughout. Anterior cervical incision is clean/dry/intact. No hoarseness. Recent Labs 03/20/21 0437 03/21/21 0608 03/22/21 0553 WBC 12.1* 10.4* 10.0* HGB 12.5 12.0 12.3 HCT 37.9 37.7 38.8 PLT 305 255 267 NA 136 136 134* 135* K 4.7 4.7 4.5 4.4 CL 102 102 99 101 CO2 26 26 25 25 BUN 35* 35* 28* 28* CREAT 0.98* 0.98* 0.79 0.83 GLUCOSE 120* 120* 113* 112* Impression/Plan: S/P two level ACDF and T2-T3 lami with Brown Sequard syndrome. Neuro exam has shown improvement. Continue to attempt to maintain MAP 70 Would also continue efforts at increasing her serum sodium Steroid wean completed. The plan will be to have the patient transferred to rehab, likely next week once her BP is more predictable. Erik Sierra MD 03/22/2021 ICAL DIETICIAN * Silvestre Levine, DO - 03/22/2021 9:16 AM CST Critical Care Daily Note Reason for ICU admission: Cervical stenosis with spinal cord edema I reviewed the medical record including the applicable Critical Care Medicine resident, Fellow, NETWORK MGR or PA???s note from today. I independently examined the patient. I discussed the history, physical findings, laboratory findings, assessment and plan with the applicable resident/Fellow/NETWORK MGR/PA on rounds. I have reviewed the physical exam findings in the applicable resident/Fellow/NETWORK MGR/PA's note; my notable physical exam findings include: Neuro: A&Ox4, follows commands, PERRL, b/l UE 5/5 MS, RLE 4/5 in quadriceps and dorsiflexion/extension, LLE 2/5 in toes, 1/5 in rest of ext Cardiac: RRR without m/r/g Pulm: CTAB without w/r/r Abdomen: Soft, NT/ND, +BS Skin: no rashes Extremities: Warm, no edema present Vasc: radial and dorsal pedal pulses intact symmetric I have reviewed the assessment and plan in the applicable resident/Fellow/NETWORK MGR/PA's note. Notable amendments to the assessment and plan include: Neuro - Cervical spondylosis with severe stenosis and disc herniation. S/p ACDF C4/5 and posterior t2-3 decompression. B/l LE weakness and loss sensation surrounding surgery. Suspecting reperfusion injury. MRI shows edema and osteophyte at T1-2. Myelogram without evidence of ongoing compression. Sensation and strength improving. Continue MAP goal >70 with midodrine. Maintain eunatremia. Neuropathic pain: continue gabapentin Muscle spasm: continue zanadine prn CV/FLUIDS - MAP goal >70, midodrine increased, continue florinef, titrate levophed as needed. GI: Constipation: miralax, colace, repeat lactulose and give suppository GERD: PPI Renal/lytes: Urinary retention: possible neurogenic bladder, required reinstertion of watkins with urinary retention. Consider repeat voiding trial as she improves. Family Communication: updated Active Hospital Problems Diagnosis ??? Neurological deficit present ??? Cord compression ??? Cervical spondylosis with radiculopathy Resolved Hospital Problems No resolved problems to display. ICAL DIETICIAN * Adelaida Martin MD - 03/21/2021 10:10 PM CST Edwige Hoskins - Critical Care Physician Note 10:10 PM Physician: Adelaida Martin MD Virtual ticket received Labs/Notes briefly reviewed. Problem: Hypotension. intervention/follow up/discussion: MAP goal should be augmented in this patient to > 70, however currently lower. Was on Levophed this afternoon, order was discontinued. Reorder Levophed, pt has central access. Call Golgi if assistance needed ([phone]) ICAL DIETICIAN * Silvestre Levine DO - 03/21/2021 9:30 AM CST Critical Care Daily Note Reason for ICU admission: Cervical stenosis with spinal cord edema I reviewed the medical record including the applicable Critical Care Medicine resident, Fellow, NETWORK MGR or PA???s note from today. I independently examined the patient. I discussed the history, physical findings, laboratory findings, assessment and plan with the applicable resident/Fellow/NETWORK MGR/PA on rounds. I have reviewed the physical exam findings in the applicable resident/Fellow/NETWORK MGR/PA's note; my notable physical exam findings include: Neuro: A&Ox4, follows commands, PERRL, b/l UE 5/5 MS, RLE 4/5 in quadriceps and dorsiflexion/extension, LLE 2/5 in toes, 1/5 in rest of ext Cardiac: RRR without m/r/g Pulm: CTAB without w/r/r Abdomen: Soft, NT/ND, +BS Skin: no rashes Extremities: Warm, no edema present Vasc: radial and dorsal pedal pulses intact symmetric I have reviewed the assessment and plan in the applicable resident/Fellow/NETWORK MGR/PA's note. Notable amendments to the assessment and plan include: Neuro - Cervical spondylosis with severe stenosis and disc herniation. S/p ACDF C4/5 and posterior t2-3 decompression. B/l LE weakness and loss sensation surrounding surgery. Suspecting reperfusion injury. MRI shows edema and osteophyte at T1-2. Myelogram without evidence of ongoing compression. Sensation and strength improving. Continue MAP goal >70 with midodrine. Steroid taper per NSGY. Maintain eunatremia. Neuropathic pain: continue gabapentin Muscle spasm: continue zanadine prn CV/FLUIDS - MAP goal >70, midodrine GI: Constipation: miralax, colace repeat lactulose and add suppository GERD: PPI Renal/lytes: Urinary retention: possible neurogenic bladder, required reinstertion of watkins with urinary retention. Consider repeat voiding trial as she improves. Family Communication: updated Active Hospital Problems Diagnosis ??? Neurological deficit present ??? Cord compression ??? Cervical spondylosis with radiculopathy Resolved Hospital Problems No resolved problems to display. ICAL DIETICIAN * Katherin Patton MD - 03/21/2021 8:15 AM CST Neurosurgery ?? Exam similar to yesterday, right leg is 3-4 throughout and left 1/5 ?? She feels that the sensory differential between left and right is become closer ? Sodium 134 (Goal >135) ?? Plan ?? Wean steroids Lighten MAp goal to MAP 70-100 Cont lovenox Rehab soon ?? Katherin Patton MD ICAL DIETICIAN * David Robb RN - 03/21/2021 2:59 AM CST End of Shift Note: ?? Neuro: A&OX4. TORRES/ FAC. Decreased sesation from abdomen down, slowly regaining sensation/strength. PERRLA of 3. (RASS 0 to -2). Denies pain, only complains of muscle spasms. ?? Resp: RA. Clear lung mueller. No cough noted. CV: SB/ NSR, HR 50-70s, SBP 100-160s. MAP goal of > 80 and < 100 NOT maintianed, ranged from 70-100s with levo from .01 to .06. Scheduled Midodrine 10 mg Q8; Pulses 2/ 2. Afebrile. Lovenox. No edema noted. GI/ : Regular. No BMs overnight; Last BM noted on 03/18. Bladder scanned 2300- 289, rechecked @0200- 828ml- watkins inserted per Dr. Martin's note ?? Skin: Undress and assess performed by this RN and Matthew RN. No new skin breakdown noted. ?? Sleep Evaluation: Sleeping during night? Yes. CAM-ICU: Negative Delirium Prevention Performed: Cluster care and low stimulus. ?? ICAL DIETICIAN * Adelaida Martin MD - 03/20/2021 11:58 PM CST Edwige Hoskins - Critical Care Physician Note 11:58 PM Physician: Adelaida Martin MD Virtual ticket received Labs/Notes briefly reviewed. Problem: Bladder scan with 280 cc urine. Straight cathed multiple times during the day. intervention/follow up/discussion: Replace Watkins if > 400 cc on bladder scan. Call Edwige Hoskins if assistance needed ([phone]) ICAL DIETICIAN * Jerson Hubbard RN - 03/20/2021 7:52 PM CST End of Shift Note: ?? Neuro: A&Ox4,PERRLA 3mm.Limited movement to bilateral LEs, R better than L with subtle improvement. Numbness in LEs is improving. BP augmentation for 1 more day,per NSG. Denies pain.C/o muscle spasms, PRN Zanaflex available. ?? Resp: CTA, RA CV: SB/NSR 59-92. SBP goal >80 x1 more day. Levophed titrated to maintain 2/2 pulses, Lovenox, SCDs ?? GI: On Regular diet. Less nausea today, no emesis. No BM, Lactulose given ? GI: St cath x2 for 400ml and 1000ml 7 hrs later. ?? Skin: Undress and assess done per myself and ELIF Brewer. Surgical incisions WDL. Bony prominences without redness ?? Sleep Evaluation: Zanaflex prn for muscle spasms interrupting sleep ?? Medication titrations/Procedures/Labs/Diagnostic: Levophed gtt weaned for MAP >80 ICAL DIETICIAN * Tiara Alvares - 03/20/2021 3:56 PM CST Referral received and chart reviewed. Patient currently on Levo, pending medical stability, plan ofcare and physician approval. Patient will need to be able to tolerate 3 hours of therapy daily to include OOB therapy with a solid discharge plan to return to the community. Will continue to follow. Thank you for the referral. ICAL DIETICIAN * Jocelin Goins MD - 03/20/2021 11:54 AM CST CRITICAL CARE MEDICINE DAILY PROGRESS NOTE HPI: Vick??is a 65 y.o.??female??who presented originally with 3 mo of VILLEDA, neck and arm pain - found to have cervical spondylosis with disc osteophytes causing severe right C4-5??NFS and stenosis at C5-6, also disc herniation at T2- 3 with severe stenosis/cord compression. 03/13 She underwent lective Anterior cervical discectomy and fusion at C4/5 &??C5/6 ??and posterior decompression/laminectomy??at T2-[address] Patton. Post operatively patient had development of left leg weakness and sensation deficits. As per NSGY in PACU; BLE ??Right leg 1-2/5 and left legt flicker of movement. Sensation decreased??RLE compared to LLE. 70 cc of CSF was drained. STAT MRI C&T Showed no fluid collection compressing the cord, but increased cord signal at T2/3 with unchanged size of herniation. Transferred to ICU for further management. ICU Timeline: 03/14: admitted, required low dose levo to maintain MAP goals 03/15 : slightly improved strength and sensation especially RLE 03/16: continues to have slight neuro improvement. Only briefly on levo <1hr. Still having severespasms in legs. Tapering dexa 03/17: CVC switched, BP low when working with therapy. Myelogram without significant residual or persistent cord compression 03/18-03/19: on/off low dose levo Overnight: off pressors. Had trouble urinating overnight - bladder scan/straight cath Assessment and Plan: Neuro/Psych: Spinal cord contusion/edema C4-6 cervical stenosis s/p ACDF T2/3 stenosis 2/2 calcified disc herniation s/p laminectomy - originally with 3 mo of VILLEDA, neck and arm pain - found to have cervical spondylosis with disc osteophytes causing severe right C4-5??NFS and stenosis at C5-6, also disc herniation at T2-3 with severe stenosis/cord compression - 03/13 : elective Anterior cervical discectomy and fusion at C4/5 &??C5/6 ??and posterior decompression/laminectomy??at T2-3 - MRI C&T post op ??Showed no fluid collection compressing the cord, but increased cord signal at T2/3 with unchanged size of herniation - myelogram 03/17: s/p T2-3 laminectomy. Posterior displacement of spinal canal with mild ventral indentation on thecal sac. Left T7-8 disc herniation and spurs encroaching on thecal sac. - continue steroids - tapering per neurosurg - MAP 80-100 for another 48 hrs. On levo. - Neuro check Q4 - Na goals high normal Analgesia: - prn dilaudid, tylenol , percocet, tizanidine - gabapentin scheduled for spasms ?? Cardiovascular/Fluids: Goal MAP 80-100 to enhance spinal cord perfusion - levo as needed - midodrine HTN - hold [employer] COORDINATOR meds ?? Pulmonary: On RA, No issues ?? GI/NUT: - diet regular ?? Renal/LYTES/Acid-Base: - Na goal >135 - salt tabs ?? Infectious Disease: ?? No issues Hem/Onc/Coag: ?? lovenox for DVT prophylaxis ?? Endocrine: ?? BS goal 140-180 Musculoskeletal/Skin: ?? 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 Levine . Subjective: Review of Systems Constitutional: Negative for chills and fever. Respiratory: Negative for cough, hemoptysis and shortness of breath. Cardiovascular: Negative for chest pain. Gastrointestinal: Negative for abdominal pain, nausea and vomiting. Musculoskeletal: Positive for neck pain. Neurological: Positive for sensory change and focal weakness. Objective: Current vital signs Blood pressure 135/68, pulse 64, temperature 98.2 ??F (36.8 ??C), temperature source Oral, resp. rate 24, height 5' 3 (1.6 m), weight 83.9 kg (185 lb), SpO2 96 %, not currently . 24 hour BP and temperature range BP: (80-157)/(47-123) Temp (24hrs), Av.2 ??F (36.8 ??C), Min:97.8 ??F (36.6 ??C), Max:98.9 ??F (37.2 ??C) Input/Output 03/18 1900 - 03/20 0659 In: 3948.8 [P.O.:1450; I.V.:2498.8] Out: 2746 [Urine:2546] Physical Exam Physical Exam Constitutional: General: She is not in acute distress. HENT: Mouth/Throat: Mouth: Mucous membranes are moist. Eyes: Pupils: Pupils are equal, round, and reactive to light. Cardiovascular: Rate and Rhythm: Normal rate and regular rhythm. Pulses: Normal pulses. Pulmonary: Effort: Pulmonary effort is normal. Abdominal: General: Abdomen is flat. Palpations: Abdomen is soft. Neurological: Mental Status: She is alert. Comments: UEs: full strength/sensation RLE: able to dorsi and plantar flex, afford against gravity- improved from yesterday. +sensation also improved LLE: movement L foot, minimal effort against gravity. Sensation appears preserved Data Review: BMP: Recent Labs 03/17/21 1639 03/18/21 0025 03/18/214 03/19/21 0532 03/20/21436 GLUCOSE 89 164* 146* 134* 120* 120* BUN 22 24* 24* 28* 35* 35* CREAT 0.70 0.82 0.90 0.84 0.98* 0.98* NA 139 138 138 136 136 136 K 4.3 4.2 4.3 4.2 4.7 4.7 CL 105 104 104 101 102 102 CO2 25 22 23 24 26 26 ANIONGAP 9 12 11 11 8 8 MG -- -- 2.3 2.2 2.3 PO4 -- -- 2.9 3.3 3.1 estimated creatinine clearance is 57.6 mL/min (A) (by C-G formula based on SCr of 0.98 mg/dL (H)). LFTs: Recent Labs 03/18/2143303/19/21 0532 03/20/21436 ALBUMIN 3.4* 3.1* 3.1* CBC: Recent Labs 03/18/2143303/19/21 0532 03/20/21436 WBC 8.7 6.0 12.1* HGB 12.2 11.3* 12.5 HCT 38.4 35.1* 37.9 PLT 280 222 305 MCV 93.0 91.6 91.5 Coagulation: No results for input(s): PT, INR, APTT in the last 72 hours. ABG: No results found for: PHARTERIAL, QMF1TIO, PO2ART, PUP1PAS, BASEEXCESS, SO2ABG Central VBG: No results found for: PHMIXEDVEN, LK5FZZTCDR, HHG2AOSVOW, OYO2WXKWW, YW1NFQG Lactic acid: Lab Results Component Value Date/Time LACTATE 1.8 03/13/2021 02:58 PM Radiology: Results for orders placed or performed during the hospital encounter of 03/13/21 XR CHEST PA OR AP 1 VW Narrative EXAMINATION: XR CHEST PA OR AP 1 VW HISTORY: Line Placement; Encounter for blood typing; Cervical spondylosis with radiculopathy DATE: 03/17/2021 5:15 PM COMPARISON: No prior study is available for comparison. FINDINGS: Left subclavian approach central venous catheter terminates in the SVC. Lungs are well-inflated. No focal consolidation or pneumothorax. Minimal blunting of the costophrenic angles may relate to small effusions or basilar scarring. The cardiomediastinal silhouette is normal for portable technique. INCIDENTAL FINDINGS: None. Impression IMPRESSION: Left subclavian catheter terminates in the SVC. No pneumothorax. No focal consolidation.. DICTATION LOCATION: Location 1 - [facility] Hospital Problems Diagnosis ??? Neurological deficit present ??? Cord compression ??? Cervical spondylosis with radiculopathy Resolved Hospital Problems No resolved problems to display. Jocelin Goins MD Critical Care Fellow 03/20/21 11:54 AM ICAL DIETICIAN * Silvestre Levine DO - 03/20/2021 11:49 AM CST Critical Care Daily Note Reason for ICU admission: Cervical stenosis with spinal cord edema I reviewed the medical record including the applicable Critical Care Medicine resident, Fellow, NETWORK MGR or PA???s note from today. I independently examined the patient. I discussed the history, physical findings, laboratory findings, assessment and plan with the applicable resident/Fellow/NETWORK MGR/PA on rounds. I have reviewed the physical exam findings in the applicable resident/Fellow/NETWORK MGR/PA's note; my notable physical exam findings include: Neuro: A&Ox4, follows commands, PERRL, b/l UE 5/5 MS, RLE 4/5 in quadriceps and dorsiflexion/extension, LLE 2/5 in toes, 1/5 in rest of exxt Cardiac: RRR without m/r/g Pulm: CTAB without w/r/r Abdomen: Soft, NT/ND, +BS Skin: no rashes Extremities: Warm, no edema present Vasc: radial and dorsal pedal pulses intact symmetric I have reviewed the assessment and plan in the applicable resident/Fellow/NETWORK MGR/PA's note. Notable amendments to the assessment and plan include: Neuro - Cervical spondylosis with severe stenosis and disc herniation. S/p ACDF C4/5 and posterior t2-3 decompression. B/l LE weakness and loss sensation surrounding surgery. Suspecting reperfusion injury. MRI without cause. Myelogram without evidence of compression. Sensation and strength improving. Continue MAP goal >80 with midodrine and levophed as need. Steroid taper per NSGY. Maintain eunatremia. Neuropathic pain: continue gabapentin Muscle spasm: continue zanadine prn CV/FLUIDS - MAP goal 80-100, midodrine and levophed. GI: Constipation: miralax, colace and 1 dose of lactulose GERD: PPI Renal/lytes: Urinary retention: possible neurogenic bladder, continue voiding trial, straight cath prn. Family Communication: updated Active Hospital Problems Diagnosis ??? Neurological deficit present ??? Cord compression ??? Cervical spondylosis with radiculopathy Resolved Hospital Problems No resolved problems to display. ICAL DIETICIAN * Katherin Patton MD - 03/20/2021 9:24 AM CST Neurosurgery Some improvement this morning She feels that the sensory differential between left and right is become closer Also some toe and ankle movement on the left and some stronger 3/5 proximal motor movement on right Sodium 136 (Goal >135) Plan Wean steroids Voiding trial (straight cath prn) Cont lovenox Katherin Patton MD ICAL DIETICIAN * Dell Calhoun RN - 03/20/2021 2:42 AM CST End of Shift Note: Neuro: A&OX4. TORRES/ FAC. Drift noted in RLE and numbness present. Pt cannot life LLE and numbness is present. (GCS 14 to 15). PERRLA of 3. (RASS 0 to -2). Denies pain, only complains of muscle spasms. Resp: RA. Clear lung mueller. No cough noted. CV: SB/ NSR, HR 50-90s, SBP 100-150s. MAP goal of > 80 and < 100 NOT maintianed, ranged from 70-110s. Scheduled Midodrine 10 mg Q8; Levo turned of at 0500. Pulses 2/ 2. Afebrile. Lovenox. No edema noted. GI/ : Regular. No BMs overnight; Last BM noted on 03/18. Pt has not voided since watkins removal yesterday. Bladder scanned Q6; Straight cath at 0500 and obtained 915 mL. Skin: Undress and assess performed by this RN and Matthew RN. No new skin breakdown noted. Sleep Evaluation: Sleeping during night? Yes. CAM-ICU: Negative Delirium Prevention Performed: Cluster care and low stimulus. ICAL DIETICIAN * Roselyn Coronel MD - 03/20/2021 2:11 AM CST CCM fellow update Pt has not voided since watkins removal yesterday AM. Bladder scan shows 517 ml. Plan Straight cath ICAL DIETICIAN * Jerson Hubbard RN - 03/19/2021 2:37 PM CST End of Shift Note: Neuro: A&Ox4,PERRLA 3mm.Limited movement to bilateral LEs, R better than L. Numbness in LEs. BPaugmentation for 2 more days,per NSG. Denies pain.C/o muscle spasms, PRN Zanaflex available. Resp: CTA, RA CV: SB/NSR 52-82. SBP goal >80 x2 more days. Levophed titrated to maintain 2/2 pulses, Lovenox, SCDs GI: On Regular diet. Had sudden onset n/v after taking AM PO medications. No BM, Miralax added to bowel regime GI: Watkins d/snehal. Periwic placed. Bladder cscan 215, will continue to monitor. Skin: Undress and assess done per myself and Elizabeth, PCT. Surgical incisions WDL Sleep Evaluation: Zanaflex prn for muscle spasms interrupting sleep Medication titrations/Procedures/Labs/Diagnostic: Levophed gtt weaned for MAP >80 ICAL DIETICIAN * Radha Chanel PA - 03/19/2021 11:41 AM CST Neurosurgery Progress Note Vick Tanner 1955 6 Days Post-Op Procedure(s) (LRB): CERVICAL DISCECTOMY FUSION 2 LEVEL ANTERIOR (N/A) THORACIC LAMINECTOMY (N/A) Patient remains in ICU. Sitting upright in bed with nurse at bedside. Had some nausea that improved with zofran Had headache overnight after on/off levo Continues to have muscle spasms Active Hospital Problems Diagnosis ??? Neurological deficit present ??? Cord compression ??? Cervical spondylosis with radiculopathy Resolved Hospital Problems No resolved problems to display. Vitals: 03/19/21 0954 03/19/21 1000 03/19/21 1018 03/19/21 1030 BP: 105/83 (!) 92/55 (!) 71/42 (!) 122/100 Pulse: 85 91 82 (!) 56 Resp: 14 17 11 19 Temp: TempSrc: SpO2: Weight: Height: PE: Awake, Alert, Ox3. PERRL. Speech intact. Full strength and sensation in BUE. Able to wiggle toes on the left, no proximal movement noted. Right foot plantar and dorsiflexion with 3/5 strength and able to activate quad/proximal muscles - able to lift heel off bed today - continues to improve. Incision is clean/dry/intact. Output by Drain (mL) 03/17/21 0700 - 03/17/21 1859 03/17/21 1900 - 03/18/21 0659 03/18/21 0700 - 03/18/21 1859 03/18/21 1900 - 03/19/21 0659 03/19/21 0700 - 03/19/21 1141 Requested LDAs do not have output data documented. Recent Labs 03/16/21 1616 03/17/21 0050 03/17/21 0427 03/17/21 0824 03/17/21 1639 03/18/21 0025 03/18/21 0434 03/19/21 0532 WBC -- -- 7.5 -- -- -- 8.7 6.0 HGB -- -- 10.7* -- -- -- 12.2 11.3* HCT -- -- 34.0* -- -- -- 38.4 35.1* PLT -- -- 201 -- -- -- 280 222 NA 134* 141 137 138 139 138 138 136 K 3.9 4.3 4.3 4.1 4.3 4.2 4.3 4.2 CL 105 110* 106 104 105 104 104 101 CO2 21* 22 21* 23 25 22 23 24 BUN 21 20 22 24* 22 24* 24* 28* CREAT 0.72 0.71 0.75 0.78 0.70 0.82 0.90 0.84 GLUCOSE 170* 141* 137* 127* 89 164* 146* 134* Recent Images: CT C/T Myelogram 03/17/2021: myelogram does not show any significant residual or persistent cord compression. Good passage of dye around cor in c and t spine Nutrition: Current Diet and/or Nutritional Supplementation ordered: DIET GENERAL Effective Now Impression: C4-6 cervical stenosis 2/2 spondylosis s/p ACDF T2/3 stenosis 2/2 calcified disc herniation s/p laminectomy. SCI Plan: ?? Continue to monitor neuro exam. ?? Continue MAP goal >80 for another 2 days. (7 days post op total ?? On Decadron taper. ?? Changed to 4q12 today ?? Will change to 2q12 tomorrow ?? Continue Gabapentin. ?? Zanaflex sparingly for muscle spasms ?? CT myelogram showed no residual cord compression ?? DVT prophylaxis - SCD's and Lovenox. Radha Chanel PA-C NSGY PA Pager *For Healthcare Providers Only* (Wed- 7:30am-5pm and Wed-Wed 24 hours): [phone] NSGY After Hours Exchange: [phone] NSGY Office (Wed-Wed 8:30am-4:30pm): [phone] ICAL DIETICIAN * Vick Higgins RD - 03/19/2021 10:24 AM CST Images from the original note were not included. CLINICAL DIETITIAN PROGRESS NOTE [facility] Nutrition none Vick??is a 65 y.o.??female??who presents for posterior headaches, neck and right arm pain.?? S/P Anterior cervical discectomy and fusion at C4-C5 and C5-C6. T2/3 laminectomy Assessment: Past Medical History: Diagnosis Date ??? Arthritis ??? GERD (gastroesophageal reflux disease) Difficulty taking NSAIDs. ??? HTN (hypertension) ??? Post-operative nausea and vomiting Recent Labs 03/16/21 1616 03/17/21 0050 03/17/21 0427 03/17/21 0824 03/17/21 1639 03/18/21 0025 03/18/21 0434 03/19/21 0532 GLUCOSE 170* 141* 137* 127* 89 164* 146* 134* BUN 21 20 22 24* 22 24* 24* 28* CREAT 0.72 0.71 0.75 0.78 0.70 0.82 0.90 0.84 GFR >60 >60 >60 >60 >60 >60 >60 >60 NA 134* 141 137 138 139 138 138 136 K 3.9 4.3 4.3 4.1 4.3 4.2 4.3 4.2 CL 105 110* 106 104 105 104 104 101 CO2 21* 22 21* 23 25 22 23 24 ANIONGAP 8 9 10 11 9 12 11 11 CA 8.5* 8.4* 8.6 8.5* 8.5* 8.6 8.7 8.4* MG -- -- 2.3 -- -- -- 2.3 2.2 PO4 -- -- 2.5 -- -- -- 2.9 3.3 ALBUMIN -- -- 3.2* -- -- -- 3.4* 3.1* No results found for: HGBA1C, [id number] Pert Meds: noted including decadron, zofran, colace, levo, miralax added Skin: See Flowsheet for more wound documentation Anthropometrics: Height: 5' 3 (160 cm) (03/14/21 0130) Weight: 83.9 kg (185 lb) (03/13/21 1010) Body mass index is 32.77 kg/m??. [place] body weight: 52.4 kg (115 lb 8.3 oz) Adjusted ideal body weight: 65 kg (143 lb 5 oz) Admit weight: Weight: 83.9 kg (185 lb) (03/13/21 1010) -actual Wt Readings from Last 10 Encounters: 03/13/21 83.9 kg (185 lb) 02/25/21 83.5 kg (184 lb) 02/12/21 84.4 kg (186 lb) Nutrition Prescription: DIET GENERAL Effective Now Food Allergies: No known food allergies D: Inadequate oral intake r/t decreased appetite to consume sufficient energy as evidenced by poor po post OR I:Nutrition Intervention: DIET GENERAL Effective Now PO intake fair on general diet. Pt ate breakfast. Unfortunately, she vomited after. No bowel movement since adm. Miralax once a day added. Has been on colace. Goal: Consume 75% of meals/ supplements Concern for zofran side effect of constipation. At this time recommend increase miralax to bid. Encourage po. M/E: 1. Continue to monitor: Anthropometrics, Digestive, Skin, and Biochemical data 2. Follow up every 4-7 days and as needed. ICAL DIETICIAN * Silvestre Levine DO - 03/19/2021 9:27 AM CST Critical Care Daily Note Reason for ICU admission: Cervical stenosis with spinal cord edema I reviewed the medical record including the applicable Critical Care Medicine resident, Fellow, NETWORK MGR or PA???s note from today. I independently examined the patient. I discussed the history, physical findings, laboratory findings, assessment and plan with the applicable resident/Fellow/NETWORK MGR/PA on rounds. I have reviewed the physical exam findings in the applicable resident/Fellow/NETWORK MGR/PA's note; my notable physical exam findings include: Neuro: A&Ox4, follows commands, PERRL, b/l UE 5/5 MS, RLE 3/5 and LLE 1/5 in distal Cardiac: RRR without m/r/g Pulm: CTAB without w/r/r Abdomen: Soft, NT/ND, +BS Skin: no rashes Extremities: Warm, no edema present Vasc: radial and dorsal pedal pulses intact symmetric I have reviewed the assessment and plan in the applicable resident/Fellow/NETWORK MGR/PA's note. Notable amendments to the assessment and plan include: Neuro - Cervical spondylosis with severe stenosis and disc herniation. S/p ACDF C4/5 and posterior t2-3 decompression. B/l LE weakness and loss sensation surrounding surgery. Suspecting reperfusion injury. MRI with cause. Myelogram without evidence of compression. Sensation and strength improving. ContinueMAP goal >80 with midodrine and levophed as need. Steroid taper per NSGY. Maintain eunatremia. Neuropathic pain: continue gabapentin Muscle spasm: continue zanadine prn CV/FLUIDS - MAP goal 80-100, midodrine and levophed. GI: Constipation: begin miralax GERD: PPI Family Communication: updated Active Hospital Problems Diagnosis ??? Neurological deficit present ??? Cord compression ??? Cervical spondylosis with radiculopathy Resolved Hospital Problems No resolved problems to display. ICAL DIETICIAN * Jocelin Goins MD - 03/19/2021 8:25 AM CST CRITICAL CARE MEDICINE DAILY PROGRESS NOTE HPI: Vick??is a 65 y.o.??female??who presented originally with 3 mo of VILLEDA, neck and arm pain - found to have cervical spondylosis with disc osteophytes causing severe right C4-5??NFS and stenosis at C5-6, also disc herniation at T2- 3 with severe stenosis/cord compression. 03/13 She underwent lective Anterior cervical discectomy and fusion at C4/5 &??C5/6 ??and posterior decompression/laminectomy??at T2-[address] Patton. Post operatively patient had development of left leg weakness and sensation deficits. As per NSGY in PACU; BLE ??Right leg 1-2/5 and left legt flicker of movement. Sensation decreased??RLE compared to LLE. 70 cc of CSF was drained. STAT MRI C&T Showed no fluid collection compressing the cord, but increased cord signal at T2/3 with unchanged size of herniation. Transferred to ICU for further management. ICU Timeline: 03/14: admitted, required low dose levo to maintain MAP goals 03/15 : slightly improved strength and sensation especially RLE 03/16: continues to have slight neuro improvement. Only briefly on levo <1hr. Still having severespasms in legs. Tapering dexa 03/17: CVC switched, BP low when working with therapy. Myelogram without significant residual or persistent cord compression 03/18: on/off low dose levo Overnight: continues to have neuro improvement. On low dose levophed this am. Assessment and Plan: Neuro/Psych: Spinal cord contusion/edema C4-6 cervical stenosis s/p ACDF T2/3 stenosis 2/2 calcified disc herniation s/p laminectomy - originally with 3 mo of VILLEDA, neck and arm pain - found to have cervical spondylosis with disc osteophytes causing severe right C4-5??NFS and stenosis at C5-6, also disc herniation at T2-3 with severe stenosis/cord compression - 03/13 : elective Anterior cervical discectomy and fusion at C4/5 &??C5/6 ??and posterior decompression/laminectomy??at T2-3 - MRI C&T post op ??Showed no fluid collection compressing the cord, but increased cord signal at T2/3 with unchanged size of herniation - myelogram 03/17: s/p T2-3 laminectomy. Posterior displacement of spinal canal with mild ventral indentation on thecal sac. Left T7-8 disc herniation and spurs encroaching on thecal sac. - continue steroids - tapering per neurosurg - MAP 80-100. On levo. Can likely liberalize BP goals tomorrow - Neuro check Q4 - Na goals high normal Analgesia: - prn dilaudid, tylenol , percocet, tizanidine - gabapentin scheduled for spasms ?? Cardiovascular/Fluids: Goal MAP 80-100 to enhance spinal cord perfusion - levo as needed - midodrine HTN - hold LEARNING CENTER COORDINATOR meds ?? Pulmonary: On RA, No issues ?? GI/NUT: - diet regular ?? Renal/LYTES/Acid-Base: - Na goal >135 - salt tabs ?? Infectious Disease: ?? No issues Hem/Onc/Coag: ?? lovenox for DVT prophylaxis ?? Endocrine: ?? BS goal 140-180 Musculoskeletal/Skin: ?? No issues Access : CVC GI prophylaxis : none DVT prophylaxis : lovenox Code status : full Family update : to be updated This was discussed with attending physician, Dr. Levine . Subjective: Review of Systems Constitutional: Negative for chills and fever. Respiratory: Negative for cough, hemoptysis and shortness of breath. Cardiovascular: Negative for chest pain. Gastrointestinal: Negative for abdominal pain, nausea and vomiting. Musculoskeletal: Positive for neck pain. Neurological: Positive for sensory change and focal weakness. Objective: Current vital signs Blood pressure 120/69, pulse (!) 56, temperature 98.3 ??F (36.8 ??C), temperature source Oral, resp. rate (!) 6, height 5' 3 (1.6 m), weight 83.9 kg (185 lb), SpO2 100 %, not currently . 24 hour BP and temperature range BP: (87-176)/(56-92) Temp (24hrs), Av.3 ??F (36.8 ??C), Min:97.8 ??F (36.6 ??C), Max:98.6 ??F (37 ??C) Input/Output 03/17 1900 - 03/19 0659 In: 2411.4 [P.O.:2250; I.V.:161.4] Out: 3726 [Urine:3726] Physical Exam Physical Exam Constitutional: General: She is not in acute distress. HENT: Mouth/Throat: Mouth: Mucous membranes are moist. Eyes: Pupils: Pupils are equal, round, and reactive to light. Cardiovascular: Rate and Rhythm: Normal rate and regular rhythm. Pulses: Normal pulses. Pulmonary: Effort: Pulmonary effort is normal. Abdominal: General: Abdomen is flat. Palpations: Abdomen is soft. Neurological: Mental Status: She is alert. Comments: UEs: full strength/sensation RLE: able to dorsi and plantar flex, afford against gravity- improved from yesterday. +sensation also improved LLE: movement L foot, minimal effort against gravity. Sensation appears preserved Data Review: BMP: Recent Labs 03/16/21 1616 03/17/21 0050 03/17/21 0427 03/17/21 0824 03/17/21 1639 03/18/21 0025 03/18/21 0434 03/19/21 0532 GLUCOSE 170* 141* 137* 127* 89 164* 146* 134* BUN 21 20 22 24* 22 24* 24* 28* CREAT 0.72 0.71 0.75 0.78 0.70 0.82 0.90 0.84 NA 134* 141 137 138 139 138 138 136 K 3.9 4.3 4.3 4.1 4.3 4.2 4.3 4.2 CL 105 110* 106 104 105 104 104 101 CO2 21* 22 21* 23 25 22 23 24 ANIONGAP 8 9 10 11 9 12 11 11 MG -- -- 2.3 -- -- -- 2.3 2.2 PO4 -- -- 2.5 -- -- -- 2.9 3.3 estimated creatinine clearance is 57.6 mL/min (by C-G formula based on SCr of 0.84 mg/dL). LFTs: Recent Labs 03/17/2142603/18/21 0434 03/19/21 0532 ALBUMIN 3.2* 3.4* 3.1* CBC: Recent Labs 03/17/2142603/18/21 0434 03/19/21 0532 WBC 7.5 8.7 6.0 HGB 10.7* 12.2 11.3* HCT 34.0* 38.4 35.1* PLT 201 280 222 MCV 91.6 93.0 91.6 Coagulation: No results for input(s): PT, INR, APTT in the last 72 hours. ABG: No results found for: PHARTERIAL, TGR4UZK, PO2ART, EGV0XDH, BASEEXCESS, SO2ABG Central VBG: No results found for: PHMIXEDVEN, EQ4IIBYFTK, BNZ0ZJZYYF, ENU0MVUKC, KT0XZCY Lactic acid: Lab Results Component Value Date/Time LACTATE 1.8 03/13/2021 02:58 PM Radiology: Results for orders placed or performed during the hospital encounter of 03/13/21 XR CHEST PA OR AP 1 VW Narrative EXAMINATION: XR CHEST PA OR AP 1 VW HISTORY: Line Placement; Encounter for blood typing; Cervical spondylosis with radiculopathy DATE: 03/17/2021 5:15 PM COMPARISON: No prior study is available for comparison. FINDINGS: Left subclavian approach central venous catheter terminates in the SVC. Lungs are well-inflated. No focal consolidation or pneumothorax. Minimal blunting of the costophrenic angles may relate to small effusions or basilar scarring. The cardiomediastinal silhouette is normal for portable technique. INCIDENTAL FINDINGS: None. Impression IMPRESSION: Left subclavian catheter terminates in the SVC. No pneumothorax. No focal consolidation.. DICTATION LOCATION: Location 1 - [facility] Problems Diagnosis ??? Neurological deficit present ??? Cord compression ??? Cervical spondylosis with radiculopathy Resolved Hospital Problems No resolved problems to display. Jocelin Goins MD Critical Care Fellow 03/19/21 8:25 AM ICAL DIETICIAN * David Robb, RN - 03/19/2021 6:13 AM CST Overnight Events-??Slept between care.??Nausea at shift start treated with zofran. Spasms 0430 treated with zanaflex & Gabapentin. ?? Neuro:??Neuro checks Q4. A&Ox4. Pupils equal and reactive at 3mm. 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 RLE strong plantar/dorsiflexsion, decreased sensation. LLE- wiggles toes, plantar/dorsiflexsion absentt, decreased sensation is improving .??Denies pain. Na goal of Eunatremia. Leg Boot for foot drop, changed with turns. Removed 0400 for sleep. Reapplied at shift change. ?? Resp:??Room air. Clear lung sounds.?? wdl ?? CV:??SB-NS 50s-60s. SBP 120s-160s. MAP goal 80-100 maintained on 0.01 of Levo.Taken off [id number] MAPS dropped to 72-74 restarted at 0.01. Afebrile. 2/2 pulses. SCDs. Lovenox scheduled daily for DVT prophylaxis.? GI/:??Regular diet tolerating well. No accuchecks. AUOP from [facility]. 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 Skin:??Undress and assess completed by David RN and Martha SANDERS. Anterior surgical incision- open to air/scabbed Posterior surgical incision- drsg c/d/i ?? Lines:??20 L arm.??22 R arm. Left triple lumen Subclavian.?? ICAL DIETICIAN * Radha Chanel PA - 03/18/2021 12:57 PM CST Neurosurgery Progress Note Vick Tanner 1955 5 Days Post-Op Procedure(s) (LRB): CERVICAL DISCECTOMY FUSION 2 LEVEL ANTERIOR (N/A) THORACIC LAMINECTOMY (N/A) Patient remains in ICU. Sitting upright in bed and c/o she ate too much breakfast. States that the sensation and strength continues to improve. Continues to have muscle spasms. Myelogram yesterday did not show any significant residual or persistent cord compression. Good passage of dye around cor in c and t spine Active Hospital Problems Diagnosis ??? Neurological deficit present ??? Cord compression ??? Cervical spondylosis with radiculopathy Resolved Hospital Problems No resolved problems to display. Vitals: 03/18/21 1100 03/18/21 1130 03/18/21 1200 03/18/21 1239 BP: (!) 143/86 127/76 (!) 87/71 131/66 Pulse: 74 78 Resp: 28 (!) 49 Temp: 97.8 ??F (36.6 ??C) TempSrc: Axillary SpO2: Weight: Height: PE: Awake, Alert, Ox3. PERRL. Speech intact. Full strength and sensation in BUE. Able to wiggle toes on the left, no proximal movement noted. Right foot plantar and dorsiflexion with 3/5 strength and able to activate quad/proximal muscles - able to lift heel off bed today. Incision is clean/dry/intact. Output by Drain (mL) 03/16/21 07 - 03/16/21 1859 03/16/21 1900 - 03/17/21 0659 03/17/21 0700 - 03/17/21 1859 03/17/21 1900 - 03/18/21 0659 03/18/21 0700 - 03/18/21 1257 Patient has no LDAs of requested type attached. Recent Labs 03/15/21 1704 03/15/21 2357 03/16/21 0614 03/16/21 1616 03/17/21 0050 03/17/21 0427 03/17/21 0824 03/17/21 1639 03/18/21 0025 03/18/21 0434 WBC -- -- 6.3 -- -- 7.5 -- -- -- 8.7 HGB -- -- 10.9* -- -- 10.7* -- -- -- 12.2 HCT -- -- 34.1* -- -- 34.0* -- -- -- 38.4 PLT -- -- 170 -- -- 201 -- -- -- 280 NA 138 136 136 134* 141 137 138 139 138 138 K 4.1 4.5 4.3 3.9 4.3 4.3 4.1 4.3 4.2 4.3 CL 106 106 105 105 110* 106 104 105 104 104 CO2 23 21* 21* 21* 22 21* 23 25 22 23 BUN 27* 23 24* 21 20 22 24* 22 24* 24* CREAT 0.87 0.78 0.75 0.72 0.71 0.75 0.78 0.70 0.82 0.90 GLUCOSE 118* 173* 155* 170* 141* 137* 127* 89 164* 146* Recent Images: CT C/T Myelogram 03/17/2021: myelogram does not show any significant residual or persistent cord compression. Good passage of dye around cor in c and t spine Nutrition: Current Diet and/or Nutritional Supplementation ordered: DIET GENERAL Effective Now Impression: C4-6 cervical stenosis 2/2 spondylosis s/p ACDF T2/3 stenosis 2/2 calcified disc herniation s/p laminectomy. SCI Plan: ?? Continue to monitor neuro exam. ?? Continue MAP goal >80 for at least 5 days. ?? On slow Decadron taper. ?? On 8q6 since Wednesday. Will drop to 6q6 tomorrow ?? Continue Gabapentin. ?? CT myelogram showed no residual cord compression ?? DVT prophylaxis - SCD's and Lovenox. Radha Chanel PASarahiC NSGY PA Pager *For Healthcare Providers Only* (Wed- 7:30am-5pm and Wed-Wed 24 hours): [phone] NSGY After Hours Exchange: [phone] NSGY Office (Wed-Wed 8:30am-4:30pm): [phone] ICAL DIETICIAN * Silvestre Levine DO - 03/18/2021 9:15 AM CST Critical Care Daily Note Reason for ICU admission: Cervical stenosis with spinal cord edema I reviewed the medical record including the applicable Critical Care Medicine resident, Fellow, NETWORK MGR or PA???s note from today. I independently examined the patient. I discussed the history, physical findings, laboratory findings, assessment and plan with the applicable resident/Fellow/NETWORK MGR/PA on rounds. I have reviewed the physical exam findings in the applicable resident/Fellow/NETWORK MGR/PA's note; my notable physical exam findings include: Neuro: A&Ox4, follows commands, PERRL, b/l UE 5/5 MS, RLE 3/5 and LLE 2/5 Cardiac: RRR without m/r/g Pulm: CTAB without w/r/r Abdomen: Soft, NT/ND, +BS Skin: no rashes Extremities: Warm, no edema present Vasc: radial and dorsal pedal pulses intact symmetric I have reviewed the assessment and plan in the applicable resident/Fellow/NETWORK MGR/PA's note. Notable amendments to the assessment and plan include: Neuro - Cervical spondylosis with severe stenosis and disc herniation. S/p ACDF C4/5 and posterior t2-3 decompression. B/l LE weakness and loss sensation surrounding surgery. Suspecting reperfusion injury. Sensation and strength improving. Myelogram without evidence of compression. Continue MAP goal >80with midodrine and levophed as need, Steroid taper. Maintain eunatremia. Neuropathic pain: continue gabapentin. CV/FLUIDS - MAP goal 80-100, midodrine and levophed. Family Communication: updated Active Hospital Problems Diagnosis ??? Neurological deficit present ??? Cord compression ??? Cervical spondylosis with radiculopathy Resolved Hospital Problems No resolved problems to display. ICAL DIETICIAN * Jocelin Goins MD - 03/18/2021 7:15 AM CST CRITICAL CARE MEDICINE DAILY PROGRESS NOTE HPI: Vick??is a 65 y.o.??female??who presented originally with 3 mo of VILLEDA, neck and arm pain - found to have cervical spondylosis with disc osteophytes causing severe right C4-5??NFS and stenosis at C5-6, also disc herniation at T2- 3 with severe stenosis/cord compression. 03/13 She underwent lective Anterior cervical discectomy and fusion at C4/5 &??C5/6 ??and posterior decompression/laminectomy??at T2-[address] Patton. Post operatively patient had development of left leg weakness and sensation deficits. As per NSGY in PACU; BLE ??Right leg 1-2/5 and left legt flicker of movement. Sensation decreased??RLE compared to LLE. 70 cc of CSF was drained. STAT MRI C&T Showed no fluid collection compressing the cord, but increased cord signal at T2/3 with unchanged size of herniation. Transferred to ICU for further management. ICU Timeline: 03/14: admitted, required low dose levo to maintain MAP goals 03/15 : slightly improved strength and sensation especially RLE 03/16: continues to have slight neuro improvement. Only briefly on levo <1hr. Still having severespasms in legs. Tapering dexa 03/17: CVC switched, BP low when working with therapy. Myelogram without significant residual or persistent cord compression Overnight: continues to have neuro improvement. On low dose levophed. Assessment and Plan: Neuro/Psych: Spinal cord contusion/edema C4-6 cervical stenosis s/p ACDF T2/3 stenosis 2/2 calcified disc herniation s/p laminectomy - originally with 3 mo of VILLEDA, neck and arm pain - found to have cervical spondylosis with disc osteophytes causing severe right C4-5??NFS and stenosis at C5-6, also disc herniation at T2-3 with severe stenosis/cord compression - 03/13 : elective Anterior cervical discectomy and fusion at C4/5 &??C5/6 ??and posterior decompression/laminectomy??at T2-3 - MRI C&T post op ??Showed no fluid collection compressing the cord, but increased cord signal at T2/3 with unchanged size of herniation - myelogram 03/17: s/p T2-3 laminectomy. Posterior displacement of spinal canal with mild ventral indentation on thecal sac. Left T7-8 disc herniation and spurs encroaching on thecal sac. - continue steroids - tapering per neurosurg - MAP 80-100. On levo - Neuro check Q4 - Na goals high normal Analgesia: - prn dilaudid, tylenol , percocet, tizanidine - gabapentin scheduled for spasms ?? Cardiovascular/Fluids: Goal MAP 80-100 to enhance spinal cord perfusion - levo as needed - midodrine HTN - hold LEARNING CENTER COORDINATOR meds ?? Pulmonary: On RA, No issues ?? GI/NUT: - diet regular ?? Renal/LYTES/Acid-Base: - Na goal >135 - salt tabs ?? Infectious Disease: ?? No issues Hem/Onc/Coag: ?? lovenox for DVT prophylaxis ?? Endocrine: ?? BS goal 140-180 Musculoskeletal/Skin: ?? No issues Access : CVC GI prophylaxis : none DVT prophylaxis : ok for lovenox per neusurg Code status : full Family update : to be updated This was discussed with attending physician, Dr. Levine . Subjective: Review of Systems Constitutional: Negative for chills and fever. Respiratory: Negative for cough, hemoptysis and shortness of breath. Cardiovascular: Negative for chest pain. Gastrointestinal: Negative for abdominal pain, nausea and vomiting. Musculoskeletal: Positive for neck pain. Neurological: Positive for sensory change and focal weakness. Objective: Current vital signs Blood pressure 135/76, pulse 65, temperature 98.5 ??F (36.9 ??C), temperature source Oral, resp. rate 9, height 5' 3 (1.6 m), weight 83.9 kg (185 lb), SpO2 93 %, not currently . 24 hour BP and temperature range BP: (90-180)/(50-94) Temp (24hrs), Av.6 ??F (37 ??C), Min:98.3 ??F (36.8 ??C), Max:98.9 ??F (37.2 ??C) Input/Output 03/16 1900 - 03/18 0659 In: 1994.9 [P.O.:950; I.V.:1044.9] Out: 4135 [Urine:4100; Drains:35] Physical Exam Physical Exam Constitutional: General: She is not in acute distress. HENT: Mouth/Throat: Mouth: Mucous membranes are moist. Eyes: Pupils: Pupils are equal, round, and reactive to light. Cardiovascular: Rate and Rhythm: Normal rate and regular rhythm. Pulses: Normal pulses. Pulmonary: Effort: Pulmonary effort is normal. Abdominal: General: Abdomen is flat. Palpations: Abdomen is soft. Neurological: Mental Status: She is alert. Comments: UEs: full strength/sensation RLE: able to dorsi and plantar flex, afford against gravity- improved from yesterday. +sensation also improved LLE: movement L foot, minimal effort against gravity. Sensation appears preserved Data Review: BMP: Recent Labs 03/15/21 1704 03/15/21 2357 03/16/21 0614 03/16/21 1616 03/17/21 0050 03/17/21 0427 03/17/21 0824 03/17/21 1639 03/18/21 0025 03/18/21 0434 GLUCOSE 118* 173* 155* 170* 141* 137* 127* 89 164* 146* BUN 27* 23 24* 21 20 22 24* 22 24* 24* CREAT 0.87 0.78 0.75 0.72 0.71 0.75 0.78 0.70 0.82 0.90 NA 138 136 136 134* 141 137 138 139 138 138 K 4.1 4.5 4.3 3.9 4.3 4.3 4.1 4.3 4.2 4.3 CL 106 106 105 105 110* 106 104 105 104 104 CO2 23 21* 21* 21* 22 21* 23 25 22 23 ANIONGAP 9 9 10 8 9 10 11 9 12 11 MG -- -- 2.2 -- -- 2.3 -- -- -- 2.3 PO4 -- -- 2.8 -- -- 2.5 -- -- -- 2.9 estimated creatinine clearance is 57.6 mL/min (by C-G formula based on SCr of 0.9 mg/dL). LFTs: Recent Labs 03/16/21 0614 03/17/2142603/18/21 0434 ALBUMIN 3.2* 3.2* 3.4* CBC: Recent Labs 03/16/21 0614 03/17/2142603/18/21 0434 WBC 6.3 7.5 8.7 HGB 10.9* 10.7* 12.2 HCT 34.1* 34.0* 38.4 PLT 170 201 280 MCV 92.2 91.6 93.0 Coagulation: No results for input(s): PT, INR, APTT in the last 72 hours. ABG: No results found for: PHARTERIAL, AYT2YJT, PO2ART, YYF0JNE, BASEEXCESS, SO2ABG Central VBG: No results found for: PHMIXEDVEN, WQ5DBFQJJN, BUE8DQBEDV, HQX4BJHXN, RP1OPEX Lactic acid: Lab Results Component Value Date/Time LACTATE 1.8 03/13/2021 02:58 PM Radiology: Results for orders placed or performed during the hospital encounter of 03/13/21 XR CHEST PA OR AP 1 VW Narrative EXAMINATION: XR CHEST PA OR AP 1 VW HISTORY: Line Placement; Encounter for blood typing; Cervical spondylosis with radiculopathy DATE: 03/17/2021 5:15 PM COMPARISON: No prior study is available for comparison. FINDINGS: Left subclavian approach central venous catheter terminates in the SVC. Lungs are well-inflated. No focal consolidation or pneumothorax. Minimal blunting of the costophrenic angles may relate to small effusions or basilar scarring. The cardiomediastinal silhouette is normal for portable technique. INCIDENTAL FINDINGS: None. Impression IMPRESSION: Left subclavian catheter terminates in the SVC. No pneumothorax. No focal consolidation.. DICTATION LOCATION: Location 1 - [facility] Problems Diagnosis ??? Neurological deficit present ??? Cord compression ??? Cervical spondylosis with radiculopathy Resolved Hospital Problems No resolved problems to display. Jocelin Goins MD Critical Care Fellow 03/18/21 7:15 AM ICAL DIETICIAN * Yulia Escudero - 03/18/2021 6:20 AM CST Tail Worker met with Pt and offered support. Pt verbally engaging, seemed to be in good spirits, and expressed no needs at this time. Tail Worker provided supportive presence, active listening, and prayed that Pt would get well soon. Pt thanked airways operations specialist for visit and desired to rest. Tail Worker will remainavailable. Chaplain Yulia Hernandez #[id number] ICAL DIETICIAN * David Robb RN - 03/18/2021 3:00 AM CST Overnight Events- Slept between care. ?? Neuro: Neuro checks Q4. A&Ox4. Pupils equal and reactive at 3mm. 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 RLE strong plantar/dorsiflexsion, decreased sensation. LLE- wiggles toes, plantar/dorsiflexsion absentt, decreased sensation is improving . Denies pain. Q8 BMPs- Na goal of 138-142. Na at midnight draw was 141. ?? Resp: Room air. Clear lung sounds. ?? CV: SB-NS 50s-60s. SBP 120s-160s. MAP goal 80-100 maintained on 0.04 of Levo. Afebrile. 2/2 pulses.SCDs. ?? GI/: Regular diet tolerating well. No accuchecks. AUOP from [facility]. 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 Skin: Undress and assess completed by David RN and Osman PCT . Anterior surgical incision- open to air/scabbed Posterior surgical incision- drsg c/d/i ?? Lines: 20 L arm. 22 R arm. L triple lumen Subclavian. ICAL DIETICIAN * Roseanna Badillo RN - 03/17/2021 6:48 PM CST Ventricular bigeminy noted on monitor. Pt asymptomatic. Stat EKG ordered ICAL DIETICIAN * Katherin Patton MD - 03/17/2021 4:34 PM CST Neurosurgery myelogram does not show any significant residual or persistent cord compression Good passage of dye around cor in c and t spine Exam mild improvement , I assume this may be some kind of reperfusion injury and hopefully will getbetter with time but I do not see any indication for further surgical intervention at this time Katherin Patton MD ICAL DIETICIAN * Silvestre Levine DO - 03/17/2021 12:28 PM CST Critical Care Daily Note Reason for ICU admission: Cervical stenosis with spinal cord edema I reviewed the medical record including the applicable Critical Care Medicine resident, Fellow, NETWORK MGR or PA???s note from today. I independently examined the patient. I discussed the history, physical findings, laboratory findings, assessment and plan with the applicable resident/Fellow/NETWORK MGR/PA on rounds. I have reviewed the physical exam findings in the applicable resident/Fellow/NETWORK MGR/PA's note; my notable physical exam findings include: Neuro: A&Ox4, follows commands, PERRL, b/l UE 5/5 MS, RLE 3/5 and LLE 2/5 Cardiac: RRR without m/r/g Pulm: CTAB without w/r/r Abdomen: Soft, NT/ND, +BS Skin: no rashes Extremities: Warm, no edema present Vasc: radial and dorsal pedal pulses intact symmetric I have reviewed the assessment and plan in the applicable resident/Fellow/NETWORK MGR/PA's note. Notable amendments to the assessment and plan include: Neuro - Cervical spondylosis with severe stenosis and disc herniation. S/p ACDF C4/5 and posterior t2-3 decompression. B/l LE weakness and loss sensation surrounding surgery. Suspecting reperfusion injury. Sensation and strength improving. Myelogram without evidence of compression. Continue MAP goal >80with midodrine and levophed as need, Steroid taper. Maintain eunatremia. Neuropathic pain: continue gabapentin. CV/FLUIDS - MAP goal 80-100, midodrine and levophed. Family Communication: updated Critical care time of 30 minutes was spent with this patient excluding procedures or teaching. Active Hospital Problems Diagnosis ??? Neurological deficit present ??? Cord compression ??? Cervical spondylosis with radiculopathy Resolved Hospital Problems No resolved problems to display. ICAL DIETICIAN * Cliff Seaman MD - 03/17/2021 11:56 AM CST I discussed the risks and benefits of the procedure including but not limited to bleeding requiringsurgical intervention, infection or meningitis,chemical meningitis, CSF leak requiring blood patch,seizure, headache nausea and vomitting, allergic reaction, and injury to nerve roots. Patient and her daughter appeared to understand and wished to proceed with myelogram. ICAL DIETICIAN * Barron Martinez PA - 03/17/2021 10:34 AM CST Neurosurgery Progress Note Vick Tanner 1955 4 Days Post-Op Procedure(s) (LRB): CERVICAL DISCECTOMY FUSION 2 LEVEL ANTERIOR (N/A) THORACIC LAMINECTOMY (N/A) Patient remains in ICU. No new complaints. Active Hospital Problems Diagnosis ??? Neurological deficit present ??? Cord compression ??? Cervical spondylosis with radiculopathy Resolved Hospital Problems No resolved problems to display. Vitals: 03/17/21 0700 03/17/21 0800 03/17/21 0900 03/17/21 1000 BP: (!) 153/75 (!) 151/70 (!) 180/71 (!) 153/85 Pulse: (!) 57 (!) 55 (!) 45 61 Resp: (!) 4 10 (!) 0 8 Temp: 98.9 ??F (37.2 ??C) TempSrc: SpO2: Weight: Height: PE: Awake, Alert, Ox3. PERRL. Speech intact. Full strength and sensation in BUE. Able to wiggle toes on the left, no proximal movement noted. Right foot plantar and dorsiflexion with 3/5 strength and able to activate quad/proximal muscles. Incision is clean/dry/intact. Drain removed and dressing placed. Output by Drain (mL) 03/15/21699 - 03/15/21 18503/15/21 190 - 03/16/21 0659 03/16/21 07 - 03/16/21 1859 03/16/21 1900 - 03/17/21 0659 03/17/21 0700 - 03/17/21 1034 Drain/Device Site 03/13/21 1504 #1 Right: cervical spine round 80 60 40 35 Recent Labs 03/15/21 0555 03/15/21 1704 03/15/21 2357 03/16/21 0614 03/16/21 1616 03/17/21 0050 03/17/21 0427 03/17/21 0824 WBC 9.2 -- -- 6.3 -- -- 7.5 -- HGB 10.3* -- -- 10.9* -- -- 10.7* -- HCT 31.6* -- -- 34.1* -- -- 34.0* -- PLT 179 -- -- 170 -- -- 201 -- NA 133* 138 136 136 134* 141 137 138 K 4.4 4.1 4.5 4.3 3.9 4.3 4.3 4.1 CL 103 106 106 105 105 110* 106 104 CO2 21* 23 21* 21* 21* 22 21* 23 BUN 27* 27* 23 24* 21 20 22 24* CREAT 0.79 0.87 0.78 0.75 0.72 0.71 0.75 0.78 GLUCOSE 129* 118* 173* 155* 170* 141* 137* 127* Nutrition: Current Diet and/or Nutritional Supplementation ordered: DIET GENERAL Effective Now Impression: C4-6 cervical stenosis 2/2 spondylosis s/p ACDF T2/3 stenosis 2/2 calcified disc herniation s/p laminectomy. SCI Plan: ?? Continue to monitor neuro exam. ?? Continue MAP goal >80 for at least 5 days. ?? On slow Decadron taper. ?? Continue Gabapentin. ?? CT myelogram ordered to evaluate for residual compression. Get both prone and supine views including C3-T4. ?? Drain removed. ?? DVT prophylaxis - SCD's and Lovenox. Barron Martinez PA-C NSGY PA Pager *For Healthcare Providers Only* (Wed- 7:30am-5pm and Wed-Wed 24 hours): [phone] NSGY After Hours Exchange: [phone] NSGY Office (Wed-Wed 8:30am-4:30pm): [phone] ICAL DIETICIAN Associated attestation - Katherin Patton MD - 03/17/2021 10:55 AM CLINICAL DIETICIAN Seems like her sensation is slightly improved and her right leg seems to be moving a little bit proximally and much better distally with 3-5 plantar and dorsiflexion She is even starting to be able to wiggle a few toes on her left foot Continue steroid taper Myelogram today to rule out ongoing compression Katherin Patton MD * Cookie Leija RN - 03/17/2021 7:34 AM CST Overnight Events- Slept between care. Neuro: Neuro checks Q1. A&Ox4. Pupils equal and reactive at 3mm. 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 RLE strong plantar/dorsiflexsion, decreased sensation. LLE- wiggles toes, plantar/dorsiflexsion absent, decreased sensation. Denies pain. Q8 BMPs- Na goal of 138-142. Na at midnight draw was 141. 2% at 75 mL/hr discontinued per MD until next BMP at 0800. Resp: Room air. Clear lung sounds. CV: SB-NS 50s-60s. SBP 120s-160s. MAP goal 80-100. Afebrile. 2/2 pulses. SCDs. Lovenox scheduled daily for DVT prophylaxis. GI/: Regular diet tolerating well. ACHS accuchecks. AUOP from [facility]. 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 Skin: Undress and assess completed by Gely SANDERS and Soheila SANDERS. Anterior surgical incision- open to air/scabbed Posterior surgical incision- drsg c/d/i Cervical drain drsg- c/d/i 35 mL output overnight Lines: 20 L arm. 22 R arm. R triple lumen fem. ICAL DIETICIAN * Jocelin Goins MD - 03/17/2021 7:23 AM CST CRITICAL CARE MEDICINE DAILY PROGRESS NOTE HPI: Vick??is a 65 y.o.??female??who presented originally with 3 mo of VILLEDA, neck and arm pain - found to have cervical spondylosis with disc osteophytes causing severe right C4-5??NFS and stenosis at C5-6, also disc herniation at T2- 3 with severe stenosis/cord compression. 03/13 She underwent lective Anterior cervical discectomy and fusion at C4/5 &??C5/6 ??and posterior decompression/laminectomy??at T2-[address] Patton. Post operatively patient had development of left leg weakness and sensation deficits. As per NSGY in PACU; BLE ??Right leg 1-2/5 and left legt flicker of movement. Sensation decreased??RLE compared to LLE. 70 cc of CSF was drained. STAT MRI C&T Showed no fluid collection compressing the cord, but increased cord signal at T2/3 with unchanged size of herniation. Transferred to ICU for further management. ICU Timeline: 03/14: admitted, required low dose levo to maintain MAP goals 03/15 : slightly improved strength and sensation especially RLE 03/16: continues to have slight neuro improvement. Only briefly on levo <1hr. Still having severespasms in legs. Tapering dexa Overnight: continues to have slight neuro improvement. Off levophed. Assessment and Plan: Neuro/Psych: Spinal cord contusion/edema C4-6 cervical stenosis s/p ACDF T2/3 stenosis 2/2 calcified disc herniation s/p laminectomy - originally with 3 mo of VILLEDA, neck and arm pain - found to have cervical spondylosis with disc osteophytes causing severe right C4-5??NFS and stenosis at C5-6, also disc herniation at T2-3 with severe stenosis/cord compression - 03/13 : elective Anterior cervical discectomy and fusion at C4/5 &??C5/6 ??and posterior decompression/laminectomy??at T2-3 - MRI C&T post op ??Showed no fluid collection compressing the cord, but increased cord signal at T2/3 with unchanged size of herniation - continue steroids - discuss tapering with neurosurg - MAP 80-100. Off levo - Neuro check Q1 - dermatomal exam - Na goals high normal. Trend q8h - plan for myelogram today Analgesia: - prn dilaudid, tylenol , percocet, tizanidine - gabapentin scheduled for spasms - increase dose ?? Cardiovascular/Fluids: Goal MAP 80-100 to enhance spinal cord perfusion - levo as needed - midodrine HTN - hold LEARNING CENTER COORDINATOR meds ?? Pulmonary: On RA, No issues ?? GI/NUT: - diet regular ?? Renal/LYTES/Acid-Base: - Na goal >135 - salt tabs, monitor q8h ?? Infectious Disease: ?? No issues Hem/Onc/Coag: ?? lovenox for DVT prophylaxis ?? Endocrine: ?? BS goal 140-180 Musculoskeletal/Skin: ?? No issues Access : CVC- plan to switch CVC GI prophylaxis : none DVT prophylaxis : ok for lovenox per neusurg Code status : full Family update : to be updated This was discussed with attending physician, Dr. Levine . Subjective: Review of Systems Constitutional: Negative for chills and fever. Respiratory: Negative for cough, hemoptysis and shortness of breath. Cardiovascular: Negative for chest pain. Gastrointestinal: Negative for abdominal pain, nausea and vomiting. Musculoskeletal: Positive for neck pain. Neurological: Positive for sensory change and focal weakness. Objective: Current vital signs Blood pressure (!) 158/75, pulse (!) 56, temperature 98.4 ??F (36.9 ??C), temperature source Oral, resp. rate (!) 0, height 5' 3 (1.6 m), weight 83.9 kg (185 lb), SpO2 96 %, not currently . 24 hour BP and temperature range BP: (121-170)/(53-84) Temp (24hrs), Av.6 ??F (37 ??C), Min:98.4 ??F (36.9 ??C), Max:98.8 ??F (37.1 ??C) Input/Output 03/15 1900 - 03/17 0659 In: 2781.3 [P.O.:220; I.V.:2561.3] Out: 5450 [Urine:5350; Drains:100] Physical Exam Physical Exam Constitutional: General: She is not in acute distress. HENT: Mouth/Throat: Mouth: Mucous membranes are moist. Eyes: Pupils: Pupils are equal, round, and reactive to light. Cardiovascular: Rate and Rhythm: Normal rate and regular rhythm. Pulses: Normal pulses. Pulmonary: Effort: Pulmonary effort is normal. Abdominal: General: Abdomen is flat. Palpations: Abdomen is soft. Neurological: Mental Status: She is alert. Comments: UEs: full strength/sensation RLE: able to dorsi and plantar flex, afford against gravity- improved from yesterday. +sensation also improved but still feels different LLE: movement L foot, no effort against gravity. Sensation appears preserved Data Review: BMP: Recent Labs 03/15/21 0555 03/15/21 1704 03/15/21 2357 03/16/21 0614 03/16/21 1616 03/17/21 0050 03/17/21 0427 GLUCOSE 129* 118* 173* 155* 170* 141* 137* BUN 27* 27* 23 24* 21 20 22 CREAT 0.79 0.87 0.78 0.75 0.72 0.71 0.75 NA 133* 138 136 136 134* 141 137 K 4.4 4.1 4.5 4.3 3.9 4.3 4.3 CL 103 106 106 105 105 110* 106 CO2 21* 23 21* 21* 21* 22 21* ANIONGAP 9 9 9 10 8 9 10 MG 2.2 -- -- 2.2 -- -- 2.3 PO4 2.4* -- -- 2.8 -- -- 2.5 estimated creatinine clearance is 57.6 mL/min (by C-G formula based on SCr of 0.75 mg/dL). LFTs: Recent Labs 03/15/21 0555 03/16/21 0614 03/17/21 0427 ALBUMIN 3.3* 3.2* 3.2* CBC: Recent Labs 03/15/21 0555 03/16/21 0614 03/17/21 0427 WBC 9.2 6.3 7.5 HGB 10.3* 10.9* 10.7* HCT 31.6* 34.1* 34.0* PLT 179 170 201 MCV 90.8 92.2 91.6 Coagulation: No results for input(s): PT, INR, APTT in the last 72 hours. ABG: No results found for: PHARTERIAL, [id number], PO2ART, MHL2TJE, BASEEXCESS, SO2ABG Central VBG: No results found for: PHMIXEDVEN, [id number], FKN5PZOKRT, IGV9AJLIE, IT5VPTY Lactic acid: Lab Results Component Value Date/Time LACTATE 1.8 03/13/2021 02:58 PM Radiology: No results found for this or any previous visit. Active Hospital Problems Diagnosis ??? Neurological deficit present ??? Cord compression ??? Cervical spondylosis with radiculopathy Resolved Hospital Problems No resolved problems to display. Jocelin Goins MD Critical Care Fellow 03/17/21 7:23 AM ICAL DIETICIAN * Jeanne Hemphill MD - 03/17/2021 2:07 AM CST Na goal specified by day team 138-142. Recent Na 141, hold 2% HTS till next bmp. ICAL DIETICIAN * Katherin Wray - 03/16/2021 11:53 AM CST Vick is a wonderful woman from [place], [place]. She was present with her daughter when I entered herroom and offered her the sacraments. I did anoint her with the Sacrament of the Sick and give her Holy Communion. She said that she wasn't feeling well earlier. She is just a very positive person josé miguel mikhail to talk too. . Katherin Wray, O.P. [phone] ICAL DIETICIAN * Lalit Ortiz DO - 03/16/2021 11:29 AM CST CCM ATTENDING Action Items for Hospitalist and/or PCP to follow Patient is a 65 yea rold female who presents with 3 mongths of headache, neck, and arm pain. Patient found to have cervical spondylosis with disc osteophytes causing right c4-c5 nfs and stenosis at c5 and c6 also disc herniation at t 2-3. Patient underwent elective anterior cervical discectomy and fusion c4/5 and c5 and c6 and posteriordecompression/laminectomy at t2-[address] Patton. Post op patient developed left leg weakness and sensation deficits. CSF fluid drained. Patient post op mri and ct. No fluid collection compressing the cord or hematoma. In the ICU the patient started on norepinephrine to increase blood pressure map from 80-100. Please consider this note in addition to the Resident/Fellow/NETWORK MGR/PAs note from today (as applicable). I have discussed the history, physical findings, laboratory findings, AND assessment and plan withthe resident/Fellow/NETWORK MGR/PA and the patients RN and RT as applicable. 03/15: patient off pressors. Blood prssure map above 80. Neuro exam right lower extremity slightly better and numbness slightly improved. Sensation on left seems close to normal. 03/16: continued slow improvement of sensation and movement. Discussed with neurosurgery. Continue steroids. Start to wean. Will make 10 q 8 today. Physical Examination findings include: Body mass index is 32.77 kg/m??. Gen: no distress Neuro: Oriented X 4; rle: able to dorsi and plantar flex but mild effort against gravity. Better today/ sesnation improved on right. lle :minimal movement 3,4,5 toe movement. CV: S1; S2; slightly tachycardic. Resp: Coarse breath sounds B ant chest Assessment/Plan: ?? Neuro - ?? Post operative spinal cord contusion/edema ?? Originally with 3 months of VILLEDA, neck and arm pain: found to have a cervical spondylosis with disc osteophytes causing severe stenosis and disc herniation ?? S/p elective anterior cervical discectomy and fusion at c4/5 and c5/6 and posterior decompression at t2-t3. ?? Post surgery neurological changes. ?? Mri and ct done per neurology. ?? Decadron 10 q 6 per neurosurgery ?? Wean slowly. Will make 8 every 6 hours per neurosurgery from 10. ?? Map 80-100. ?? Use pressors as needed ?? Neuro check q 1 dermatomal exam ?? Analgesia: ?? Prn dilaudid, tylenol, percocet. ?? If doesn't use iv pain meds will dc on 03/16. ?? CV/FLUIDS - ?? Goal map 80-100. ?? Low dose levophed. ?? Use as needed. Start midodrine to help get off the iv levophed ?? Monitor urine output. ?? Hx of htn: ?? Hold home meds for now. ?? Resp - ?? No acute issues. ?? GI/NUT - Start diet as no surgery planned. ?? Renal/LYTES/ACID-BASE - ?? No acute issues. ID - no acute issues. Heme/Onc/COAG - scd for prophylaxis. Endo - goal is 120-180. Hyperglycemia protocol. Family Communication: I talked with patient and patient daughter at bedside. Plan to get picc and take out the femoral lines after. Active Hospital Problems Diagnosis ??? Neurological deficit present ??? Cord compression ??? Cervical spondylosis with radiculopathy Resolved Hospital Problems No resolved problems to display. ICAL DIETICIAN * Barron Martinez PA - 03/16/2021 11:08 AM CST Neurosurgery Progress Note Vick Tanner 1955 3 Days Post-Op Procedure(s) (LRB): CERVICAL DISCECTOMY FUSION 2 LEVEL ANTERIOR (N/A) THORACIC LAMINECTOMY (N/A) Patient remains in ICU. Reports cramping/spasm like feeling throughout her body and pins/needles sensation. Able to move her right leg some today and left toes. Active Hospital Problems Diagnosis ??? Neurological deficit present ??? Cord compression ??? Cervical spondylosis with radiculopathy Resolved Hospital Problems No resolved problems to display. Vitals: 03/16/21 0600 03/16/21 0700 03/16/21 0800 03/16/21 0900 BP: 133/66 131/70 133/75 (!) 162/84 Pulse: 66 (!) 58 66 67 Resp: 18 (!) 5 26 18 Temp: 98.7 ??F (37.1 ??C) TempSrc: Oral SpO2: Weight: Height: PE: Awake, Alert, Ox3. PERRL. Speech intact. Full strength and sensation in BUE. Able to wiggle toes on the left today, no proximal movement noted. Right foot plantar and dorsiflexion with 3/5 strength and able to activate quad/proximal muscles. Vibration sens intact x4. PP full on right. Left hemibody (trunk and leg) hypoesthesia to PP. Incision is clean/dry/intact. Drain intact. Output by Drain (mL) 03/14/21 0700 - 03/14/21 1859 03/14/21 1900 - 03/15/21 0659 03/15/21 0700 - 03/15/21 1859 03/15/21 1900 - 03/16/21 0659 03/16/21 0700 - 03/16/21 1108 Drain/Device Site 03/13/21 1504 #1 Right: cervical spine round 70 50 80 60 Recent Labs 03/14/21 0203 03/14/21 0338 03/15/21 0555 03/15/21 1704 03/15/21 2357 03/16/21 0614 WBC -- 6.2 9.2 -- -- 6.3 HGB -- 10.6* 10.3* -- -- 10.9* HCT -- 33.8* 31.6* -- -- 34.1* PLT -- 155 179 -- -- 170 NA 138 -- 133* 138 136 136 K 4.2 -- 4.4 4.1 4.5 4.3 CL 104 -- 103 106 106 105 CO2 21* -- 21* 23 21* 21* BUN 25* -- 27* 27* 23 24* CREAT 0.86 -- 0.79 0.87 0.78 0.75 GLUCOSE 145* -- 129* 118* 173* 155* ALT 13 -- -- -- -- -- AST 19 -- -- -- -- -- INR 1.2* -- -- -- -- -- Nutrition: Current Diet and/or Nutritional Supplementation ordered: DIET GENERAL Effective Now Impression: C4-6 cervical stenosis 2/2 spondylosis s/p ACDF T2/3 stenosis 2/2 calcified disc herniation s/p laminectomy. SCI Plan: ?? Neuro exam with improvement today. Continue to monitor. ?? Continue MAP goal >80 for at least 5 days. ?? On Decadron 10 mg q6 hours. Begin to taper slowly over the next week. ?? Started on Gabapentin. ?? CT myelogram ordered to evaluate for residual compression. Get both prone and supine views including C3-T4. ?? Continue drain, monitor output. ?? DVT prophylaxis - SCD's and Lovenox. EZEQUIEL LynchGY PA Pager *For Healthcare Providers Only* (Wed- 7:30am-5pm and Wed-Wed 24 hours): [phone] NSGY After Hours Exchange: [phone] NSGY Office (Mon-Fri 8:30am-4:30pm): [phone] ICAL DIETICIAN * Jocelin Goins MD - 03/16/2021 7:42 AM CST CRITICAL CARE MEDICINE DAILY PROGRESS NOTE HPI: Vick??is a 65 y.o.??female??who presented originally with 3 mo of VILLEDA, neck and arm pain - found to have cervical spondylosis with disc osteophytes causing severe right C4-5??NFS and stenosis at C5-6, also disc herniation at T2- 3 with severe stenosis/cord compression. 03/13 She underwent lective Anterior cervical discectomy and fusion at C4/5 &??C5/6 ??and posterior decompression/laminectomy??at T2-[address] Patton. Post operatively patient had development of left leg weakness and sensation deficits. As per NSGY in PACU; BLE ??Right leg 1-2/5 and left legt flicker of movement. Sensation decreased??RLE compared to LLE. 70 cc of CSF was drained. STAT MRI C&T Showed no fluid collection compressing the cord, but increased cord signal at T2/3 with unchanged size of herniation. Transferred to ICU for further management. ICU Timeline: 03/14: admitted, required low dose levo to maintain MAP goals 03/15 : slightly improved strength and sensation especially RLE Overnight: continues to have slight neuro improvement. Only briefly on levo <1hr. Still having severe spasms in legs Assessment and Plan: Neuro/Psych: Spinal cord contusion/edema C4-6 cervical stenosis s/p ACDF T2/3 stenosis 2/2 calcified disc herniation s/p laminectomy - originally with 3 mo of VILLEDA, neck and arm pain - found to have cervical spondylosis with disc osteophytes causing severe right C4-5??NFS and stenosis at C5-6, also disc herniation at T2-3 with severe stenosis/cord compression - 03/13 : elective Anterior cervical discectomy and fusion at C4/5 &??C5/6 ??and posterior decompression/laminectomy??at T2-3 - MRI C&T post op ??Showed no fluid collection compressing the cord, but increased cord signal at T2/3 with unchanged size of herniation - continue steroids - discuss tapering with neurosurg - MAP 80-100. Off levo - Neuro check Q1 - dermatomal exam - will drive Na levels to high normal - remains on 3% - plan for myelogram Wednesday per neurosurg Analgesia: - prn dilaudid, tylenol , percocet, tizanidine ?? Cardiovascular/Fluids: Goal MAP 80-100 to enhance spinal cord perfusion - levo as needed HTN - hold LEARNING CENTER COORDINATOR meds ?? Pulmonary: On RA, No issues ?? GI/NUT: - diet regular ?? Renal/LYTES/Acid-Base: - Na goal >135 - salt tabs, low dose 2%, monitor q6h ?? Infectious Disease: ?? No issues Hem/Onc/Coag: ?? lovenox for DVT prophylaxis ?? Endocrine: ?? BS goal 140-180 Musculoskeletal/Skin: ?? No issues Access : CVC, art - plan to place PICC GI prophylaxis : none DVT prophylaxis : ok for lovenox per [facility] Code status : full Family update : to be updated This was discussed with attending physician, Dr. Ortiz. Subjective: Review of Systems Constitutional: Negative for chills and fever. Respiratory: Negative for cough, hemoptysis and shortness of breath. Cardiovascular: Negative for chest pain. Gastrointestinal: Negative for abdominal pain, nausea and vomiting. Musculoskeletal: Positive for neck pain. Neurological: Positive for sensory change and focal weakness. Objective: Current vital signs Blood pressure 133/66, pulse 66, temperature 98.2 ??F (36.8 ??C), temperature source Oral, resp. rate 18, height 5' 3 (1.6 m), weight 83.9 kg (185 lb), SpO2 96 %, not currently . 24 hour BP and temperature range BP: (89-170)/(56-77) Temp (24hrs), Av.5 ??F (36.9 ??C), Min:98.2 ??F (36.8 ??C), Max:98.8 ??F (37.1 ??C) Input/Output 03/14 1900 - 03/16 0659 In: 345.1 [P.O.:150; I.V.:195.1] Out: 4685 [Urine:4495; Drains:190] Physical Exam Physical Exam Constitutional: General: She is not in acute distress. HENT: Mouth/Throat: Mouth: Mucous membranes are moist. Eyes: Pupils: Pupils are equal, round, and reactive to light. Cardiovascular: Rate and Rhythm: Normal rate and regular rhythm. Pulses: Normal pulses. Pulmonary: Effort: Pulmonary effort is normal. Abdominal: General: Abdomen is flat. Palpations: Abdomen is soft. Neurological: Mental Status: She is alert. Comments: UEs: full strength/sensation RLE: able to dorsi and plantar flex, some attempted efford against gravity otherwise - seems improved from yesterday. +sensation also improved but still feels different LLE: minimal movement L foot, no effort against gravity. Sensation appears preserved Data Review: BMP: Recent Labs 03/14/21 0203 03/15/21 0555 03/15/21 1704 03/15/21 2357 03/16/21 0614 GLUCOSE 145* 129* 118* 173* 155* BUN 25* 27* 27* 23 24* CREAT 0.86 0.79 0.87 0.78 0.75 NA 138 133* 138 136 136 K 4.2 4.4 4.1 4.5 4.3 CL 104 103 106 106 105 CO2 21* 21* 23 21* 21* ANIONGAP 13 9 9 9 10 MG 1.9 2.2 -- -- 2.2 PO4 3.3 2.4* -- -- 2.8 estimated creatinine clearance is 57.6 mL/min (by C-G formula based on SCr of 0.75 mg/dL). LFTs: Recent Labs 03/14/21 0203 03/15/21 0555 03/16/21 0614 ALKPHOS 67 -- -- ALT 13 -- -- AST 19 -- -- BILITOTAL <0.2* -- -- ALBUMIN 3.7 3.3* 3.2* CBC: Recent Labs 03/14/21 0338 03/15/21 0555 03/16/21 0614 WBC 6.2 9.2 6.3 HGB 10.6* 10.3* 10.9* HCT 33.8* 31.6* 34.1* PLT 155 179 170 MCV 94.4 90.8 92.2 Coagulation: Recent Labs 03/14/21 0203 PT 15.9* INR 1.2* ABG: No results found for: PHARTERIAL, [id number], PO2ART, WQC3JUP, BASEEXCESS, SO2ABG Central VBG: No results found for: PHMIXEDVEN, [id number], [id number], GAF8FEZTQ, BZ8GUAX Lactic acid: Lab Results Component Value Date/Time LACTATE 1.8 03/13/2021 02:58 PM Radiology: No results found for this or any previous visit. Active Hospital Problems Diagnosis ??? Neurological deficit present ??? Cord compression ??? Cervical spondylosis with radiculopathy Resolved Hospital Problems No resolved problems to display. Jocelin Goins MD Critical Care Fellow 03/16/21 7:42 AM ICAL DIETICIAN Associated attestation - Lalit Ortiz DO - 03/16/2021 3:51 PM CLINICAL DIETICIAN See my note from the same day * Jeanne Hemphill MD - 03/16/2021 1:29 AM CST Restart 2% HTS, Na down trending. ICAL DIETICIAN * Ethan Cisneros RN - 03/15/2021 6:12 PM CST End of Shift Note: Restarted and stopped levo. Started midodrine. Neuro: q1 checks PERRLA 3mm. AOx4 TORRES/FAC except LLE. LLE moves with minimal stimulation. Tingling from mid abdomin down. Denies pain throughout shift but took PRN for muscle spasms. Resp: WDL CV: NSR. MAP goal 80-100. Levo started then stopped. Midodrine ordered. Afebrile. 2/2 pulses. SCD's GI: regular diet, ACHS, no BM : watkins w/ AUOP Skin: dressing clean dry and intact. No pressure related injuries noted at this time. Undress done w/ Martha RN and Ross RN. ICAL DIETICIAN * Lalit Ortiz DO - 03/15/2021 5:53 PM CST ICU update: I Discussed with Dr. Virk. Will continue steroids tonight and decide on 03/16 if would like to continue after this. This order was placed ICAL DIETICIAN * Nicholas Virk MD - 03/15/2021 4:14 PM CST [facility] Neurosurgery Progress Note Admission Date: 03/13/2021 Hospital Day: 1 Postop 2 Days Post-Op C4-6 ACDF and T2/3 laminectomy Subjective: Persistent LE weakness and left hemibody numbess. No pain. Objective: T: 98.8 ??F (37.1 ??C) [Temp Min: 97.6 ??F (36.4 ??C) Max: 99 ??F (37.2 ??C)] BP: 119/66 [BP Min: 108/59 Max: 127/63] MAP: 80 MM HG [Mean Arterial Pressure Min: 74 MM HG Max: 81 MM HG] HR: 69 [Pulse Min: 69 Max: 95] RR: 20 [Resp Min: 8 Max: 27] Sat: 96 % [SpO2 Min: 96 % Max: 96 %] Input/Output: 03/14 0700 - 03/15 0659 In: 50 [P.O.:50] Out: 1280 [Urine:1160; Drains:120] Intake/Output Summary (Last 24 hours) at 03/15/2021 1615 Last data filed at 03/15/2021 1600 Gross per 24 hour Intake 145.13 ml Output 2255 ml Net -2109.87 ml Drain:120 PE: A& ox4 FC full strength and sens BUE BLE paresis L>R (right side a little stronger) Spastic triple flexion BLE spontaneous and to touch. Vibration sens intact x4 PP full on right. Left hemibody (trunk and leg) hypoesthesia to PP +watkins sens. w- cdi Output by Drain (mL) 03/13/21 0700 - 03/13/21 1859 03/13/21 1900 - 03/14/21 0659 03/14/21 0700 - 03/14/21 1859 03/14/21 1900 - 03/15/21 0659 03/15/21 0700 - 03/15/21 1615 Patient has no LDAs of requested type attached. Data Review: Recent Labs 03/14/21 0203 03/14/21 0338 03/15/21 0555 WBC -- 6.2 9.2 HGB -- 10.6* 10.3* HCT -- 33.8* 31.6* PLT -- 155 179 NA 138 -- 133* CREAT 0.86 -- 0.79 GLUCOSE 145* -- 129* INR 1.2* -- -- Imaging Review: MRI c/tspine - C4-6 ACDF. T2/3 laminectomy. Significant cord compression preop at both cervical andthoracic levels. Postop improvement of compression. Cervical with less anterior compression and thoracic with less posterior compression (CSF around the cord posteriorly). There is more apparent T2 change in the cord at the T2/3 level particularly on the right but certainly SCI from external compression was present preop. CT t-spine - T2/3 calcified HNP centered midline anteriorly. Assessment: C4-6 cervical stenosis 2/2 spondylosis s/p ACDF T2/3 stenosis 2/2 calcified disc herniation s/p laminectomy. SCI Plan: Maintain MAP ~85mmhg Myelogram on Wednesday to evaluate if there is residual compression or this is a decompression/ reperfusion injury. Consider both prone and supine CT myelogram views. Needs to include C3-T4 Ok for Lovenox Cont drain ADAT Cont watkins Trend exam. Active Hospital Problems Diagnosis ??? Neurological deficit present ??? Cord compression ??? Cervical spondylosis with radiculopathy Resolved Hospital Problems No resolved problems to display. Nicholas Virk MD ICAL DIETICIAN * Lalit Ortiz, DO - 03/15/2021 8:32 AM CST CCM ATTENDING Action Items for Hospitalist and/or PCP to follow Patient is a 65 yea rold female who presents with 3 mongths of headache, neck, and arm pain. Patient found to have cervical spondylosis with disc osteophytes causing right c4-c5 nfs and stenosis at c5 and c6 also disc herniation at t 2-3. Patient underwent elective anterior cervical discectomy and fusion c4/5 and c5 and c6 and posteriordecompression/laminectomy at t2-[address] Patton. Post op patient developed left leg weakness and sensation deficits. CSF fluid drained. Patient post op mri and ct. No fluid collection compressing the cord or hematoma. In the ICU the patient started on norepinephrine to increase blood pressure map from 80-100. Please consider this note in addition to the Resident/Fellow/NETWORK MGR/PAs note from today (as applicable). I have discussed the history, physical findings, laboratory findings, AND assessment and plan withthe resident/Fellow/NETWORK MGR/PA and the patients RN and RT as applicable. 03/15: patient off pressors. Blood prssure map above 80. Neuro exam right lower extremity slightly better and numbness slightly improved. Sensation on left seems close to normal. Physical Examination findings include: Body mass index is 32.77 kg/m??. Gen: no distress Neuro: Oriented X 4; rle: able to dorsi and plantar flex but mild effort against gravity. Feels pressure on this foot States she feels pressure above the foot. lle : reflex movement but not other effort and has sensation CV: S1; S2; slightly tachycardic. Resp: Coarse breath sounds B ant chest Assessment/Plan: ?? Neuro - ?? Post operative spinal cord contusion/edema ?? Originally with 3 months of VILLEDA, neck and arm pain: found to have a cervical spondylosis with disc osteophytes causing severe stenosis and disc herniation ?? S/p elective anterior cervical discectomy and fusion at c4/5 and c5/6 and posterior decompression at t2-t3. ?? Post surgery neurological changes. ?? Mri and ct done per neurology. ?? Decadron 10 q 6 per neurosurgery ?? Wean per their team ?? Map 80-100. ?? Use pressors as needed ?? Neuro check q 1 dermatomal exam ?? Analgesia: ?? Prn dilaudid, tylenol, percocet. ?? If doesn't use iv pain meds will dc on 03/16. ?? CV/FLUIDS - ?? Goal map 80-100. ?? Low dose levophed. ?? Use as needed. Start midodrine to help get off the iv levophed ?? Monitor urine output. ?? Hx of htn: ?? Hold home meds for now. ?? Resp - ?? No acute issues. ?? GI/NUT - Start diet as no surgery planned. ?? Renal/LYTES/ACID-BASE - ?? No acute issues. ID - no acute issues. Heme/Onc/COAG - scd for prophylaxis. Endo - goal is 120-180. Hyperglycemia protocol. Family Communication: I talked with patient. Active Hospital Problems Diagnosis ??? Neurological deficit present ??? Cord compression ??? Cervical spondylosis with radiculopathy Resolved Hospital Problems No resolved problems to display. ICAL DIETICIAN * Jocelin Goins MD - 03/15/2021 6:58 AM CST CRITICAL CARE MEDICINE DAILY PROGRESS NOTE HPI: Vick??is a 65 y.o.??female??who presented originally with 3 mo of VILLEDA, neck and arm pain - found to have cervical spondylosis with disc osteophytes causing severe right C4-5??NFS and stenosis at C5-6, also disc herniation at T2- 3 with severe stenosis/cord compression. 03/13 She underwent lective Anterior cervical discectomy and fusion at C4/5 &??C5/6 ??and posterior decompression/laminectomy??at T2-[address] Patton. Post operatively patient had development of left leg weakness and sensation deficits. As per NSGY in PACU; BLE ??Right leg 1-2/5 and left legt flicker of movement. Sensation decreased??RLE compared to LLE. 70 cc of CSF was drained. STAT MRI C&T Showed no fluid collection compressing the cord, but increased cord signal at T2/3 with unchanged size of herniation. Transferred to ICU for further management. ICU Timeline: 03/14: admitted, required low dose levo to maintain MAP goals Overnight: slightly improved strength and sensation especially RLE Assessment and Plan: Neuro/Psych: Spinal cord contusion/edema - originally with 3 mo of VILLEDA, neck and arm pain - found to have cervical spondylosis with disc osteophytes causing severe right C4-5??NFS and stenosis at C5-6, also disc herniation at T2-3 with severe stenosis/cord compression - s/p elective Anterior cervical discectomy and fusion at C4/5 &??C5/6 ??and posterior decompression/laminectomy??at T2-3 /?? - MRI C&T ??Showed no fluid collection compressing the cord, but increased cord signal at T2/3 with unchanged size of herniation - will discuss continuation of steroids with neurosrug - MAP 80-100. Off levo - Neuro check Q1 - dermatomal exam - will drive Na levels to high normal - plan for myelogram Wednesday per neurosurg Analgesia: - prn dilaudid, tylenol , percocet, tizanidine ?? 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 Pulmonary: On RA, No issues ?? GI/NUT: - diet regular ?? Renal/LYTES/Acid-Base: - Na goal 138-142 - start salt tabs, low dose 2%, monitor q6h ?? Infectious Disease: ?? No issues Hem/Onc/Coag: - SCD for DVT prophylaxis ?? Endocrine: ?? BS goal 140-180 Musculoskeletal/Skin: ?? No issues Access : CVC, art GI prophylaxis : none DVT prophylaxis : SCD Code status : full Family update : updated daughter This was discussed with attending physician, Dr. Ortiz. Subjective: Review of Systems Constitutional: Negative for chills and fever. Respiratory: Negative for cough, hemoptysis and shortness of breath. Cardiovascular: Negative for chest pain. Gastrointestinal: Negative for abdominal pain, nausea and vomiting. Musculoskeletal: Positive for neck pain. Neurological: Positive for sensory change and focal weakness. Objective: Current vital signs Blood pressure 98/87, pulse 85, temperature 98.8 ??F (37.1 ??C), temperature source Oral, resp. rate 10, height 5' 3 (1.6 m), weight 83.9 kg (185 lb), SpO2 96 %, not currently . 24 hour BP and temperature range BP: (98-133)/(55-87) Temp (24hrs), Av.4 ??F (36.9 ??C), Min:97.6 ??F (36.4 ??C), Max:99 ??F (37.2 ??C) Input/Output 03/13 0700 - 03/14 1859 In: 3100 [P.O.:100; I.V.:3000] Out: 1750 [Urine:1335; Drains:215] Physical Exam Physical Exam Constitutional: General: She is not in acute distress. HENT: Mouth/Throat: Mouth: Mucous membranes are moist. Eyes: Pupils: Pupils are equal, round, and reactive to light. Cardiovascular: Rate and Rhythm: Normal rate and regular rhythm. Pulses: Normal pulses. Pulmonary: Effort: Pulmonary effort is normal. Abdominal: General: Abdomen is flat. Palpations: Abdomen is soft. Neurological: Mental Status: She is alert. Comments: UEs: full strength/sensation RLE: able to dorsi and plantar flex, some attempted efford against gravity otherwise - seems improved from yesterday. +sensation also improved but still feels different LLE: minimal movement L foot, no effort against gravity. Sensation appears preserved Data Review: BMP: Recent Labs 03/14/21 0203 03/15/21 0555 GLUCOSE 145* 129* BUN 25* 27* CREAT 0.86 0.79 NA 138 133* K 4.2 4.4 CL 104 103 CO2 21* 21* ANIONGAP 13 9 MG 1.9 2.2 PO4 3.3 2.4* estimated creatinine clearance is 57.6 mL/min (by C-G formula based on SCr of 0.79 mg/dL). LFTs: Recent Labs 03/14/21 0203 03/15/21 0555 ALKPHOS 67 -- ALT 13 -- AST 19 -- BILITOTAL <0.2* -- ALBUMIN 3.7 3.3* CBC: Recent Labs 03/14/21 0338 03/15/21 0555 WBC 6.2 9.2 HGB 10.6* 10.3* HCT 33.8* 31.6* PLT 155 179 MCV 94.4 90.8 Coagulation: Recent Labs 03/14/21 020 PT 15.9* INR 1.2* ABG: No results found for: PHARTERIAL, VXC5SYC, PO2ART, PZS3PAA, BASEEXCESS, SO2ABG Central VBG: No results found for: PHMIXEDVEN, [id number], [id number], KVF5EMGNV, LC6ZXFU Lactic acid: Lab Results Component Value Date/Time LACTATE 1.8 03/13/2021 02:58 PM Radiology: No results found for this or any previous visit. Active Hospital Problems Diagnosis ??? Neurological deficit present ??? Cord compression ??? Cervical spondylosis with radiculopathy Resolved Hospital Problems No resolved problems to display. Jocelin Goins MD Critical Care Fellow 03/15/21 6:58 AM ICAL DIETICIAN Associated attestation - Lalit Ortiz DO - 03/16/2021 3:50 PM CLINICAL DIETICIAN See my note from the same day * Katherin Patton MD - 03/14/2021 1:26 PM CST Neurosurgery Postop day 1 status post two-level ACDF and T2-3 laminectomy Exam is about the same although seems like her right leg is a little bit stronger and perhaps she says it feels a little bit better in terms of sensation Review the MRI and CT scan shows a large calcified disc herniation at T2-3. 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 At this point I do not see any role for urgent intervention Going to keep her blood pressure elevated weaning her steroids slowly over the next 36 hours Physical therapy for range of motion and hopefully with time as the swelling will reperfusion issues in the cord resolve for example improve Also can plan on getting a myelogram on Wednesday to see if there is any ongoing compression just to further evaluate the local anatomy Katherin Patton MD ICAL DIETICIAN * Lalit Ortiz DO - 03/14/2021 12:28 PM CST CCM ATTENDING Action Items for Hospitalist and/or PCP to follow Patient is a 65 yea rold female who presents with 3 mongths of headache, neck, and arm pain. Patient found to have cervical spondylosis with disc osteophytes causing right c4-c5 nfs and stenosis at c5 and c6 also disc herniation at t 2-3. Patient underwent elective anterior cervical discectomy and fusion c4/5 and c5 and c6 and posteriordecompression/laminectomy at t2-[address] Patton. Post op patient developed left leg weakness and sensation deficits. CSF fluid drained Patient post op mri and ct. No fluid collection compressing the cord or hematoma. In the ICU the patient started on norepinephrine to increase blood pressure map from 80-100. Please consider this note in addition to the Resident/Fellow/NETWORK MGR/PAs note from today (as applicable). I have discussed the history, physical findings, laboratory findings, AND assessment and plan withthe resident/Fellow/NETWORK MGR/PA and the patients RN and RT as applicable. COVID 19 test Negative Physical Examination findings include: Body mass index is 32.77 kg/m??. Gen: no distress Neuro: Oriented X 4; rle: able to dorsi and plantar flex but no effort against gravity other then this. Feels pressure on this foot States she feels pressure above the foot. lle : reflex movement butnot other effort and has sensation CV: S1; S2; slightly tachycardic. Resp: Coarse breath sounds B ant chest Assessment/Plan: ?? Neuro - ?? Post operative spinal cord contusion/edema ?? Originally with 3 months of VILLEDA, neck and arm pain: found to have a cervical spondylosis with disc osteophytes causing severe stenosis and disc herniation ?? S/p elective anterior cervical discectomy and fusion at c4/5 and c5/6 and posterior decompression at t2-t3. ?? Post surgery neurological changes. ?? Mri and ct done per neurology. ?? Decadron 10 q 6 per neurosurgery ?? Map 80-100. ?? Neuro check q 1 dermatomal exam ?? Analgesia: ?? Prn dilaudid, tylenol, percocet. ?? Try to decrease on 12/4 if not needing the iv medications. ?? CV/FLUIDS - ?? Goal map 80-100. ?? Low dose levophed. Stop midodrine for now as did not reduce the erquirements. ?? Monitor urine output. ?? Hx of htn: ?? Hold home meds for now. ?? Resp - ?? No acute issues. ?? GI/NUT - Start diet as no surgery planned. ?? Renal/LYTES/ACID-BASE - ?? No acute issues. ID - no acute issues. Heme/Onc/COAG - scd for prophylaxis. Endo - goal is 120-180. Hyperglycemia protocol. Family Communication: I talked with daughter and patient. Active Hospital Problems Diagnosis ??? Cord compression ??? Cervical spondylosis with radiculopathy Resolved Hospital Problems No resolved problems to display. ICAL DIETICIAN * Jocelin Goins MD - 03/14/2021 8:31 AM CST CRITICAL CARE MEDICINE DAILY PROGRESS NOTE HPI: Vick??is a 65 y.o.??female??who presented originally with 3 mo of VILLEDA, neck and arm pain - found to have cervical spondylosis with disc osteophytes causing severe right C4-5??NFS and stenosis at C5-6, also disc herniation at T2- 3 with severe stenosis/cord compression. 03/13 She underwent lective Anterior cervical discectomy and fusion at C4/5 &??C5/6 ??and posterior decompression/laminectomy??at T2-[address] Patton. Post operatively patient had development of left leg weakness and sensation deficits. As per NSGY in PACU; BLE ??Right leg 1-2/5 and left legt flicker of movement. Sensation decreased??RLE compared to LLE. 70 cc of CSF was drained. STAT MRI C&T Showed no fluid collection compressing the cord, but increased cord signal at T2/3 with unchanged size of herniation. Transferred to ICU for further management. ICU Timeline: Assessment and Plan: Neuro/Psych: Post operative spinal cord contusion/edema - originally with 3 mo of VILLEDA, neck and arm pain - found to have cervical spondylosis with disc osteophytes causing severe right C4-5??NFS and stenosis at C5-6, also disc herniation at T2-3 with severe stenosis/cord compression - s/p elective Anterior cervical discectomy and fusion at C4/5 &??C5/6 ??and posterior decompression/laminectomy??at T2-3 12/2?? - MRI C&T ??Showed no fluid collection compressing the cord, but increased cord signal at T2/3 with unchanged size of herniation - Decadron 10 Q6 - MAP 80-100 - on midodrine and low dose levo - Neuro check Q1 - dermatomal exam - repeat CT spine today Analgesia: - prn dilaudid, tylenol , percocet ?? Cardiovascular/Fluids: Goal MAP 80-100 to enhance spinal cord perfusion - on midodrine, levophed as needed HTN - hold LEARNING CENTER COORDINATOR meds ?? Pulmonary: On RA, No issues ?? GI/NUT: - diet NPO sips with meds till the CT scan results ?? Renal/LYTES/Acid-Base: Monitor/replete electrolytes ?? Infectious Disease: ?? No issues Hem/Onc/Coag: - SCD for DVT prophylaxis ?? Endocrine: ?? BS goal 140-180 Musculoskeletal/Skin: ?? No issues Access : CVC, art GI prophylaxis : none DVT prophylaxis : SCD Code status : full Family update : updated daughter This was discussed with attending physician, Dr. Ortiz. Subjective: Review of Systems Constitutional: Negative for chills and fever. Respiratory: Negative for cough, hemoptysis and shortness of breath. Cardiovascular: Negative for chest pain. Gastrointestinal: Negative for abdominal pain, nausea and vomiting. Musculoskeletal: Positive for neck pain. Neurological: Positive for sensory change and focal weakness. Objective: Current vital signs Blood pressure 116/64, pulse (!) 101, temperature 98.2 ??F (36.8 ??C), temperature source Oral, resp. rate 13, height 5' 3 (1.6 m), weight 83.9 kg (185 lb), SpO2 93 %, not currently . 24 hour BP and temperature range BP: (90-133)/(44-82) Temp (24hrs), Av.6 ??F (36.4 ??C), Min:96.9 ??F (36.1 ??C), Max:98.2 ??F (36.8 ??C) Input/Output 03/12 1900 - 03/14 0659 In: 3100 [P.O.:100; I.V.:3000] Out: 1240 [Urine:895; Drains:145] Physical Exam Physical Exam Constitutional: General: She is not in acute distress. HENT: Mouth/Throat: Mouth: Mucous membranes are moist. Eyes: Pupils: Pupils are equal, round, and reactive to light. Cardiovascular: Rate and Rhythm: Normal rate and regular rhythm. Pulses: Normal pulses. Pulmonary: Effort: Pulmonary effort is normal. Abdominal: General: Abdomen is flat. Palpations: Abdomen is soft. Neurological: Mental Status: She is alert. Comments: UEs: full strength/sensation RLE: able to dorsi and plantar flex, no efford against gravity otherwise. +sensation on foot but reduced above the ankle level LLE: reflexatory movement of toe/foot only, no effort against gravity. No sensation. Data Review: BMP: Recent Labs 03/14/21 020 GLUCOSE 145* BUN 25* CREAT 0.86 NA 138 K 4.2 CL 104 CO2 21* ANIONGAP 13 MG 1.9 PO4 3.3 estimated creatinine clearance is 57.6 mL/min (by C-G formula based on SCr of 0.86 mg/dL). LFTs: Recent Labs 03/14/21 020 ALKPHOS 67 ALT 13 AST 19 BILITOTAL <0.2* ALBUMIN 3.7 CBC: Recent Labs 03/14/21 0338 WBC 6.2 HGB 10.6* HCT 33.8* PLT 155 MCV 94.4 Coagulation: Recent Labs 03/14/21 0203 PT 15.9* INR 1.2* ABG: No results found for: PHARTERIAL, PYN6KBJ, PO2ART, PTN4PWW, BASEEXCESS, SO2ABG Central VBG: No results found for: PHMIXEDVEN, RT3IWGNDCW, JGE4OYLCPU, MBW0XXUDB, JJ0HXZL Lactic acid: Lab Results Component Value Date/Time LACTATE 1.8 03/13/2021 02:58 PM Radiology: No results found for this or any previous visit. Active Hospital Problems Diagnosis ??? Cord compression ??? Cervical spondylosis with radiculopathy Resolved Hospital Problems No resolved problems to display. Jocelin Goins MD Critical Care Fellow 03/14/21 8:31 AM ICAL DIETICIAN Associated attestation - Lalit Ortiz DO - 03/14/2021 11:04 PM CLINICAL DIETICIAN See my note from the same day. * Martha Talbert RN - 03/14/2021 8:02 AM CST UNDRESS AND ASSESS FOR ALL ADMISSIONS AND TRANSFERS: Remove all existing dressings and assess all wounds upon admission (unless instructed by physician). Undress and Assess performed by: bedside coworker Martha RN and bedside coworker Elian RN on admission to [address] Bed 6 Estrada Score: Estrada Score: 14 (03/14/21 0400) 1. Patient does not have skin breakdown. ??? If yes o Describe wound location and appearance: o LDA added for any open areas and for non-blanching pink/red or purple areas? N/A (please note, heels, ankles, knees, hips, sacrum, coccyx, ischium, gluteal, occiput, spine and all skin folds are high risk for skin breakdown) and consult wound care services 2. Was wound photographed: N/A 3. Is a specialty support surface utilized? No If yes, which one?: i.e. impaired mobility, bariatric, malnourished, existing pressure injury. 4. Is the patient a paraplegic/quadriplegic? No If so, if stable spine immediately place on specialty surface. If unstable spine or new spinal injury, consult physician (per facility process) and consult wound care services. 5. Is a medical manager in place?no If yes, remove device/brace/splint to check skin underneath, obtain provider order if necessary. 6. Does the patient have a wound VAC (negative pressure wound therapy)? No If yes, please consult wound care services and follow facility process. 7. Does the patient have an ostomy? No If yes, please consult wound care services. 8. Was the Skin Care Prevention: Pressure Injury Pathway initiated and appropriate interventions selected? No (Use for prevention of skin issues due to friction, shear, pressure, mobility or moisture issues.) 9. Was the Skin Care Treatment: Pressure Injury/Lower Extremity Ulcer Pathway initiated, and appropriate interventions selected? No (Use for conditions such as: existing pressure injuries, yeast, deep tissue injury, incontinence associated dermatitis, lower extremity ulcers, and skin tears) Wound care consult was not initiated. STL TOPHER Skin Care Injury Prevention and Treatment Protocol [facility] Approved by: [facility] - Medical Executive Committee Approval Date: 04/27/2019 ORDERS ARE ENTERED ???PER PROTOCOL?? Nursing Orders: o When a patient age 18 years or older has: ? a documented Estrada score of 18 or less or a Estrada sub score of 2 or 1, ? or a documented condition on the problem list of: diabetes, malnutrition or cachectic, paralysis,spinal cord disorder/injuries or muscle/neurological disease, THEN, the RN will order the Skin Care/Pressure Injury Prevention Pathway and initiate all appropriate interventions as per the Estrada Risk Assessment Algorithm. o When a patient age 18 years or older has a wound requiring treatment, the RN and Wound Care Nurses may order the Skin Care/Pressure Ulcer/Lower Extremity Ulcer Treatment Pathway and use appropriatetreatments found in the Nursing Algorithm. o The Wound Care Nurse may also order treatments found in the Wound Care Algorithm. ICAL DIETICIAN * Grover Veliz MD - 03/14/2021 3:09 AM CST [facility] - Critical Care Physician Note Time: 3:10 AM Physician: Grover Veliz MD Problem:New Admission - 65F is s/p elective ACDF at C4/5 &??C5/6 ??and ??posterior decompression/laminectomy?at T2-3. Patient initially presented with 3 month SSx and imaging showed stenois and herniation Had Bilateral LE sensory & power symptom post op for which 70 cc CSF drained and MRI done STAT MRI C&T Showed no fluid collection compressing the cord, but increased cord signal at T2/3with unchanged size of herniation intervention/follow up/discussion: Discussed pertinent aspects of case with Critical Care WILL. Video assessment of patient performed. Decadron 10 Q6 MAP 80-100 IVF fluid bolus & Midodrine now Place CVC & start pressor Neuro check Q1 - dermatomal exam Call Edwige Hoskins if assistance needed ICAL DIETICIAN * Vick Soriano RN - 03/14/2021 1:08 AM CST Report called to TOMMY Thomas in [facility]. She agrees to place watkins when patient arrived to unit. ADDENDUM 0126: patient transferred to [facility] via bed accompanied by nursing engineering supervisor. ICAL DIETICIAN * Vick Soriano RN - 03/14/2021 12:50 AM CST No neuro changes except a few involuntary BLE slight spasms noted. Attempted watkins insertion with asecond RN assist x 2. Unable to insert. Call placed for Nursing Armhole Presser to assist with positioning of patient as she cannot hold her legs in position. ICAL DIETICIAN * Vick Soriano RN - 03/13/2021 10:43 PM CST Patient has not returned from MRI. Call received from Dr. Patton discussing plans for transfer to ICU when bed available. Order received to place watkins catheter. ICAL DIETICIAN * Katherin Patton MD - 03/13/2021 10:22 PM CST Neurosurgery MRI C&T spine does not show any compressive hematoma but there is increased cord signal at T2/3in location of preop t2 signal change but it is more apparent noiw T2/3 disk herniation unchanged in size I do not think T2/3 disk is approachable from the front without transthoracic approach which is notsomething to tackle acutley given cord contusion Plan is to admit to ICU to optinize Blood pressure (MAP 80-100 and cord perfusion and give her steroids to control cord edema D/w icu fellow Son and patient aware of findings and treatment plan Katherin Patton MD ICAL DIETICIAN * Katherin Patton MD - 03/13/2021 9:23 PM CST Neurosurgery Called by RN that patient having weakness in legs upon assessment in GW. No documentation of exam while in PACU On exam BUE 5/5 with normal sensation BLE Right leg 1-2/5 and left legt flicker of meovement Sensation decreased RLE compared to LLE Drain 70cc Brown sequard type picture Will proceed with stat MRI T spine to rule our epidural and possible return to OR I spoke to her son oneyda Katherin Patton MD ICAL DIETICIAN * Vick Soriano RN - 03/13/2021 8:45 PM CST More awake. Able to converse, answer questions and follow commands. Panel Installer =/stong, but seems unableto move legs. She is only able to wiggle toes on right foot. States that she has numbness in BLE, with right worse than left. Unable to perform foot pushes/toes pulls or bend at the knee. Unable to to hold leg in place when RN bends it at the knee. She states that she can feel me touching her legs and feet and pulls both feet upward in response to painful stimuli. Dr. Patton contacted. Order received for stat MRI. MRI staff contacted to expedite. Patient updated on plan of care. ICAL DIETICIAN * Vick Soriano RN - 03/13/2021 7:33 PM CST Very sleepy. Awakes briefly and c/o pain , then falls asleep. Unable to stay awake long enough to follow all commands or take ice chips. Son at bedside and states that she is very sensitive to pain meds. Resp even and unlabored at 18/min. Continuous pulse ox monitoring in place. Anterior neck dressing C/D/I. Bruising noted around dressing. Ice applied to neck. ICAL DIETICIAN documented in this encounter H&P Notes * Janice Alanis MD - 03/13/2021 11:27 PM CST CRITICAL CARE MEDICINE HISTORY & PHYSICAL Reason for ICU admission: Cord Contusion HPI: Vick??is a 65 y.o.??female??who presents for posterior headaches, neck and right arm pain.??The onset of symptoms was 3??months??ago. The pt was found to have cervical spondylosis with disc osteophytes causing severe R C4-5 NFS and stenosis at C5-6, also disc herniation at T2-3 with severe stenosis/cord compression. Was admitted for ACDF at C4/5 & C5/6 And posterior decompression/laminectomy at T2-3. Post operatively patient had development of left leg weakness and sensation deficits. As per NSGY in PACU; BLE Right leg 1- 2/5 and left legt flicker of movement. Sensation decreased RLE compared to LLE. 70 cc of CSF was drained. 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 STAT MRI C&T Showed no fluid collection compressing the cord, but increased cord signal at T2/3 with unchanged size of herniation Transferred to ICU for further management. . 03/13: admit to ICU ? Past Medical History: Diagnosis Date ??? Arthritis ??? GERD (gastroesophageal reflux disease) Difficulty taking NSAIDs. ??? HTN (hypertension) ??? Post-operative nausea and vomiting Past Surgical History: Procedure Laterality Date ??? ENDOSCOPY, UPPER GI ??? HX SECTION x 2 ??? HX COLONOSCOPY ??? HX HYSTERECTOMY ??? HX MENISCECTOMY Right N/A Family History Problem Relation Name Age of [...] Tobacco Use ??? Breast Cancer Other Aunt No current facility-administered medications on file prior to encounter. Current Outpatient Medications on File Prior to Encounter Medication Sig Dispense Refill ??? lisinopril-hydroCHLOROthiazide (ZESTORETIC) 20-12.5 mg tablet Take 1 Tablet by mouth daily. ??? tamoxifen (NOLVADEX) 20 mg tablet Take 1 Tablet by mouth daily. ??? pantoprazole (PROTONIX) 40 mg Tablet, Delayed Release (E.C.) Take 1 Tablet by mouth 2 times daily. ??? trazodone HCl (TRAZODONE ORAL) Take 1 Tablet by mouth nightly as needed. ??? fluticasone propionate (FLONASE) 50 mcg/spray [place], Suspension nasal inhaler Administer 2 Sprays in each nostril daily. Allergies Allergen Reactions ??? Codeine Nausea and Vomiting ??? Oxycodone Nausea and Vomiting Social History Socioeconomic History ??? Marital status: [...] file Intimate Partner Violence: Not on file Review of Systems As per HPI Objective: Body mass index is 32.77 kg/m??. Current vital signs Blood pressure 112/63, pulse (!) 102, temperature 97.9 ??F (36.6 ??C), temperature source Temporal,resp. rate 18, height 5' 3 (1.6 m), weight 83.9 kg (185 lb), SpO2 99 %, not currently . 24 hour BP and temperature range BP: (90-133)/(44-82) Temp (24hrs), Av.4 ??F (36.3 ??C), Min:96.9 ??F (36.1 ??C), Max:97.9 ??F (36.6 ??C) Input/Output 03/12 0700 - 03/13 1859 In: 3000 [I.V.:3000] Out: 250 [Drains:50] Physical Exam ?? Gen:in no distress ?? Neuro: oriented times 3. UE 5.5, normal sensation. LE - R 2/5, LLE 0/5, sensation light touch decreased on L, temperature decreased on R. Sensation is impaired to the level of umbilicus. ?? HEENT: dressing on the anterior surface of neck ?? Cardiac: no murmures ?? Pulm: no issues ?? Abdomen: soft, decreased skin sensation. No tenderness with palpation ?? Skin: no rash ?? Extremities: no edema Data Review: BMP: Recent Labs 03/14/21 0203 GLUCOSE 145* BUN 25* CREAT 0.86 NA 138 K 4.2 CL 104 CO2 21* ANIONGAP 13 MG 1.9 PO4 3.3 estimated creatinine clearance is 57.6 mL/min (by C-G formula based on SCr of 0.86 mg/dL). LFTs: Recent Labs 03/14/21 0203 ALKPHOS 67 ALT 13 AST 19 BILITOTAL <0.2* ALBUMIN 3.7 CBC: Recent Labs 03/14/21 0338 WBC 6.2 HGB 10.6* HCT 33.8* PLT 155 MCV 94.4 Coagulation: Recent Labs 03/14/21 0203 PT 15.9* INR 1.2* ABG: No results found for: PHARTERIAL, OTA9VKK, PO2ART, JKR3TPU, BASEEXCESS, SO2ABG Central VBG: No results found for: PHMIXEDVEN, IT6EMPCDEG, [id number], SSG0AAHOQ, AJ5PNAD Lactic acid: Lab Results Component Value Date/Time LACTATE 1.8 03/13/2021 02:58 PM Radiology: Reviewed Assessment and Plan: Neuro/Psych: Cervical/Thoracic stenosis - s/p ACDF at C4/5 & C5/6 And posterior decompression/laminectomy at T2-3 - neuro check Q1hr - MAP goals 80-100; NS 500 cc once, start Midodrine, Levophed as needed. - pain control prn dilaudid, tylenol , percocet Cord contusion - pos op lower ext deficits - MRI findings of increased cord signal at T2/3 - MAP goal 80-100 - IV decadron 10mg Q6hr - repeat CT in am - Neurochecks q1 h Cardiovascular/Fluids: HTN - hold [facility] COORDINATOR meds Pulmonary: No issues GI/NUT: - diet NPO sips with meds till the CT scan results Renal/LYTES/Acid-Base: - f/u ordered labs Infectious Disease: ?? No issues Hem/Onc/Coag: - SCD for DVT prophylaxis Endocrine: ??? BS goal 140-180 Musculoskeletal/Skin: ?? No issues Trauma: ?? No issues Active Hospital Problems Diagnosis ??? Cord compression ??? Cervical spondylosis with radiculopathy Resolved Hospital Problems No resolved problems to display. ICAL DIETICIAN * Katherin Patton MD - 03/13/2021 12:53 PM CST [facility] H&P ?? Patient Name: Vick Tanner : 1955 ?? Date of Service: 03/13/2021 ?? History of Present Illness: Vick is a 65 y.o. female who presents for posterior headaches, neck and right arm pain. The onsetof symptoms was 3 months ago, unchanged since that time. The pain is located at the back of her neck and radiates into her posterior neck and off the right side/trap into her shoulder and deltoid region. The pain is rated severe. The pain is described as aching, sharp and Pressure. The pain is exace rbated by laying, sitting, standing The pain improves with laying on her left side. The patient also reports numbness in 1st-3rd fingers on the right but only at night when sleeping, she also describes intermittent sensation of both feet feel wet like I stepped in water at times. The patient denies an balance issues, clumsiness of hands, no L'hermittes sign, and no left arm symptoms. ?? Conservative treatments tried include Naprosyn, TENS unit, steroid pack/. ?? Past neurosurgical history includes no prior spine surgeries. ?? Patient Active Problem List Diagnosis Code ??? Neck pain M54.2 ??? Cervical spondylosis with radiculopathy M47.22 ??? Thoracic spondylosis with cord compression M47.14 ? Past Medical History: Diagnosis Date ??? Abnormal stretch lennie ? Depressed immune system ? Patient is unsure if this is accurate. ??? Dizziness ? Facial pain ? Intermittent ??? Fatigue ? GERD (gastroesophageal reflux disease) ? Difficulty taking NSAIDs. ??? Headache ? Heart attack ? Possible heart attack years ago ??? Heartburn ? High blood pressure ? History of anemia ? HTN (hypertension) ? Light Sensitivity ? Low back pain ? Muscle ache ? Muscle twitching ? Legs ??? Neck pain ? Night sweats ? Palpitations ? Postoperative nausea ? Ringing in ears ? Sleep apnea ? Patient is unsure if this is accurate. ??? Weakness ? Past Surgical History: Procedure Laterality Date ??? HX MENISCECTOMY Right N/A ?? Family History Problem Relation Name Age of Onset ??? Lung Cancer Father ? Kidney Cancer Father ? Hypertension Father ? Other Father ? Tobacco Use ??? Cervical Cancer Mother ? Hypertension Mother ? Other Mother ? Tobacco Use ??? Breast Cancer Sister ? Hypertension Sister ? Hypertension Brother ? Other Brother ? Tobacco Use ??? Stroke Maternal Grandmother ? Other Maternal Grandfather ? Tobacco Use ??? Other Paternal Grandmother ? Tobacco Use ??? Lung Cancer Paternal Grandfather ? Other Paternal Grandfather ? Tobacco Use ??? Breast Cancer Other Aunt ? Social History ?? Tobacco Use ??? Smoking status: Former Smoker ? Types: Cigarettes ? Quit date: 1979 ? Years since quittin.8 ??? Smokeless tobacco: Never Used Substance Use Topics ??? Alcohol use: Never ? TOBACCO COUNSELING She is not a tobacco user. ?? Allergies Allergen Reactions ??? Codeine Nausea and Vomiting ??? Oxycodone Nausea and Vomiting ?? Current Outpatient Medications on File Prior to Visit Medication Sig Dispense Refill ??? lisinopril-hydroCHLOROthiazide (ZESTORETIC) 20-12.5 mg tablet Take 1 Tablet by mouth daily. ? tamoxifen (NOLVADEX) 20 mg tablet Take 1 Tablet by mouth daily. ? pantoprazole (PROTONIX) 40 mg Tablet, Delayed Release (E.C.) Take 1 Tablet by mouth 2 times daily. ? trazodone HCl (TRAZODONE ORAL) Take 1 Tablet by mouth nightly as needed. ? fluticasone propionate (FLONASE) 50 mcg/spray [place], Suspension nasal inhaler Administer 2 Sprays in each nostril daily. ? No current facility-administered medications on file prior to visit. ? Review of Systems: Review of Systems Constitutional: Positive for malaise/fatigue. Negative for chills, fever and weight loss. Night sweats HENT: Positive for tinnitus. Negative for ear pain, hearing loss, sinus pain and sore throat. Eyes: Positive for photophobia. Negative for blurred vision and double vision. Respiratory: Negative for cough and shortness of breath. Cardiovascular: Positive for palpitations. Negative for chest pain and leg swelling. High blood pressure Gastrointestinal: Negative for abdominal pain, constipation, diarrhea, heartburn, nausea and vomiting. Genitourinary: Negative for dysuria, frequency and urgency. Musculoskeletal: Positive for back pain, myalgias and neck pain. Negative for falls. Skin: Negative for rash. Stretch chaudhary Neurological: Positive for dizziness, weakness and headaches. Negative for tingling, tremors, sensory change, speech change, focal weakness, seizures and loss of consciousness. Intermittent facial pain, muscle twitching Endo/Heme/Allergies: Does not bruise/bleed easily. Psychiatric/Behavioral: Negative for depression, hallucinations, memory loss, substance abuse and suicidal ideas. The patient is not nervous/anxious. ? Objective: ?? Physical Exam: BP 122/80 (BP Location: Left arm, Patient Position (BP): Sitting, BP Cuff Size: Large Adult) Pulse 71 Temp 98.1 ??F (36.7 ??C) (Temporal) Ht 5' 2.6 (1.59 m) Wt 84.4 kg (186 lb) BMI 33.37 kg/m?? Normal BMI Range: 18 & older: > or = 18.5 and < 25 Body mass index is 33.37 kg/m??. Constitutional: Appears well, no distress, well-nourished, well-developed HENT: External inspection of ears and nose within normal limits, oral mucosa normal Eyes: Normal external eye, conjunctiva, lids, cornea, pupils: see neuro exam Neck: Normal appearance, no thyroid enlargement Cardiovascular: Regular rate and rhythm, no swelling or edema Respiratory: Even/unlabored Gastrointestinal: Nondistended Musculoskeletal: +pain with Right shoulder ROM and tenderness to palpation. See neuro exam Integumentary: No rashes, no induration Psychiatric: Appropriate to circumstances, normal mood and affect ?? Neurological Exam: Neurologic Exam ?? Mental Status Oriented to person, place, and time. Follows 2 step commands. Attention: normal. Concentration: normal. Speech: speech is normal Level of consciousness: alert Normal comprehension. ?? Cranial Nerves ?? CN III, IV, Pupils are equal, round, and reactive to light. Extraocular motions are normal. ?? CN V Facial sensation intact. ?? CN VII Facial expression full, symmetric. ?? CN VIII CN VIII normal. ?? CN XI CN XI normal. ?? CN XII CN XII normal. ?? Motor Exam Overall muscle tone: normal ?? Strength Strength 5/5 except as noted. ?? Sensory Exam Light touch normal. Pinprick normal. ?? Gait, Coordination, and Reflexes ?? Gait Gait: normal ?? Reflexes Right brachioradialis: 1+ Left brachioradialis: 1+ Right biceps: 1+ Left biceps: 1+ Right triceps: 1+ Left triceps: 1+ Right patellar: 1+ Left patellar: 1+ Right achilles: 1+ Left achilles: 1+ Right admin asst: 1+ Left admin asst: 1+ Right plantar: normal Left plantar: normal Right Penny: absent Left Penny: absent Right ankle clonus: absent Left ankle clonus: absent ? Labs: No results found for: WBC, HGB, HCT, PLT, NA, K, INR No results found for: URINELEUKOC, NITRITEUA, KETONEURINE, BLOODUA, WBCU, WBCURINE, RBCUA, BACTERIAUA, UREPITHELIAL No results found for: CA, [id number], VITD25, [id number], [id number], [id number], [id number], [id number], VITAMINDTO, [id number], TSH No components found for: NICU, COTU, NICS, COTS ?? Imaging Studies: I dependently reviewed cervical MRI this shows she has disc osteophyte at C4-5 on the right side causing severe neural neural foraminal stenosis there is also a significant disc bulge osteophyte on the left at C5-6 there appears to be more mild cord compression at 4 5. On this imaging in the sagittal views there is a large disc herniation at T8 2-3 causing what appears to be cord compression but there are no axial views of this level, there also appears to be T2 signal increase in the spinal cord. ? Assessment and Plan: ? ICD-10-CM ICD-9-CM ?? 1. Neck pain M54.2 723.1 ?? 2. Cervical spondylosis with radiculopathy M47.22 721.0 ?? 3. Thoracic spondylosis with cord compression M47.14 721.41 ? Impression: 65-year-old female with neck and right arm pain and posterior headaches, found to have cervical spondylosis with disc osteophytes causing severe right C4-5 NFS and stenosis at C5-6, She also has disc herniation at T2-3 with severe stenosis/cord compression ?? Plan: Discussed MRI results with the patient, I explainedshe would benefit from an ACDF at C4 -5, 5-6; [facility] H&P ?? Patient Name: Vick Tanner : 1955 ?? Date of Service: 02/12/2021 ?? Subjective: ?? Chief Complaint: Chief Complaint Patient presents with ??? Consult ? Neck pain. Last seen in 2013. ? History of Present Illness: Vick is a 65 y.o. female who presents for posterior headaches, neck and right arm pain. The onsetof symptoms was 3 months ago, unchanged since that time. The pain is located at the back of her neck and radiates into her posterior neck and off the right side/trap into her shoulder and deltoid region. The pain is rated severe. The pain is described as aching, sharp and Pressure. The pain is exace rbated by laying, sitting, standing The pain improves with laying on her left side. The patient also reports numbness in 1st-3rd fingers on the right but only at night when sleeping, she also describes intermittent sensation of both feet feel wet like I stepped in water at times. The patient denies an balance issues, clumsiness of hands, no L'hermittes sign, and no left arm symptoms. ?? Conservative treatments tried include Naprosyn, TENS unit, steroid pack/. ?? Past neurosurgical history includes no prior spine surgeries. ?? Patient Active Problem List Diagnosis Code ??? Neck pain M54.2 ??? Cervical spondylosis with radiculopathy M47.22 ??? Thoracic spondylosis with cord compression M47.14 ? Past Medical History: Diagnosis Date ??? Abnormal stretch lennie ? Depressed immune system ? Patient is unsure if this is accurate. ??? Dizziness ? Facial pain ? Intermittent ??? Fatigue ? GERD (gastroesophageal reflux disease) ? Difficulty taking NSAIDs. ??? Headache ? Heart attack ? Possible heart attack years ago ??? Heartburn ? High blood pressure ? History of anemia ? HTN (hypertension) ? Light Sensitivity ? Low back pain ? Muscle ache ? Muscle twitching ? Legs ??? Neck pain ? Night sweats ? Palpitations ? Postoperative nausea ? Ringing in ears ? Sleep apnea ? Patient is unsure if this is accurate. ??? Weakness ? Past Surgical History: Procedure Laterality Date ??? HX MENISCECTOMY Right N/A ?? Family History Problem Relation Name Age of Onset ??? Lung Cancer Father ? Kidney Cancer Father ? Hypertension Father ? Other Father ? Tobacco Use ??? Cervical Cancer Mother ? Hypertension Mother ? Other Mother ? Tobacco Use ??? Breast Cancer Sister ? Hypertension Sister ? Hypertension Brother ? Other Brother ? Tobacco Use ??? Stroke Maternal Grandmother ? Other Maternal Grandfather ? Tobacco Use ??? Other Paternal Grandmother ? Tobacco Use ??? Lung Cancer Paternal Grandfather ? Other Paternal Grandfather ? Tobacco Use ??? Breast Cancer Other Aunt ? Social History ?? Tobacco Use ??? Smoking status: Former Smoker ? Types: Cigarettes ? Quit date: 1979 ? Years since quittin.8 ??? Smokeless tobacco: Never Used Substance Use Topics ??? Alcohol use: Never ? TOBACCO COUNSELING She is not a tobacco user. ?? Allergies Allergen Reactions ??? Codeine Nausea and Vomiting ??? Oxycodone Nausea and Vomiting ?? Current Outpatient Medications on File Prior to Visit Medication Sig Dispense Refill ??? lisinopril-hydroCHLOROthiazide (ZESTORETIC) 20-12.5 mg tablet Take 1 Tablet by mouth daily. ? tamoxifen (NOLVADEX) 20 mg tablet Take 1 Tablet by mouth daily. ? pantoprazole (PROTONIX) 40 mg Tablet, Delayed Release (E.C.) Take 1 Tablet by mouth 2 times daily. ? trazodone HCl (TRAZODONE ORAL) Take 1 Tablet by mouth nightly as needed. ? fluticasone propionate (FLONASE) 50 mcg/spray [place], Suspension nasal inhaler Administer 2 Sprays in each nostril daily. ? No current facility-administered medications on file prior to visit. ? Review of Systems: Review of Systems Constitutional: Positive for malaise/fatigue. Negative for chills, fever and weight loss. Night sweats HENT: Positive for tinnitus. Negative for ear pain, hearing loss, sinus pain and sore throat. Eyes: Positive for photophobia. Negative for blurred vision and double vision. Respiratory: Negative for cough and shortness of breath. Cardiovascular: Positive for palpitations. Negative for chest pain and leg swelling. High blood pressure Gastrointestinal: Negative for abdominal pain, constipation, diarrhea, heartburn, nausea and vomiting. Genitourinary: Negative for dysuria, frequency and urgency. Musculoskeletal: Positive for back pain, myalgias and neck pain. Negative for falls. Skin: Negative for rash. Stretch chaudhary Neurological: Positive for dizziness, weakness and headaches. Negative for tingling, tremors, sensory change, speech change, focal weakness, seizures and loss of consciousness. Intermittent facial pain, muscle twitching Endo/Heme/Allergies: Does not bruise/bleed easily. Psychiatric/Behavioral: Negative for depression, hallucinations, memory loss, substance abuse and suicidal ideas. The patient is not nervous/anxious. ? Objective: ?? Physical Exam: BP 122/80 (BP Location: Left arm, Patient Position (BP): Sitting, BP Cuff Size: Large Adult) Pulse 71 Temp 98.1 ??F (36.7 ??C) (Temporal) Ht 5' 2.6 (1.59 m) Wt 84.4 kg (186 lb) BMI 33.37 kg/m?? Normal BMI Range: 18 & older: > or = 18.5 and < 25 Body mass index is 33.37 kg/m??. Constitutional: Appears well, no distress, well-nourished, well-developed HENT: External inspection of ears and nose within normal limits, oral mucosa normal Eyes: Normal external eye, conjunctiva, lids, cornea, pupils: see neuro exam Neck: Normal appearance, no thyroid enlargement Cardiovascular: Regular rate and rhythm, no swelling or edema Respiratory: Even/unlabored Gastrointestinal: Nondistended Musculoskeletal: +pain with Right shoulder ROM and tenderness to palpation. See neuro exam Integumentary: No rashes, no induration Psychiatric: Appropriate to circumstances, normal mood and affect ?? Neurological Exam: Neurologic Exam ?? Mental Status Oriented to person, place, and time. Follows 2 step commands. Attention: normal. Concentration: normal. Speech: speech is normal Level of consciousness: alert Normal comprehension. ?? Cranial Nerves ?? CN III, IV, Pupils are equal, round, and reactive to light. Extraocular motions are normal. ?? CN V Facial sensation intact. ?? CN VII Facial expression full, symmetric. ?? CN VIII CN VIII normal. ?? CN XI CN XI normal. ?? CN XII CN XII normal. ?? Motor Exam Overall muscle tone: normal ?? Strength Strength 5/5 except as noted. ?? Sensory Exam Light touch normal. Pinprick normal. ?? Gait, Coordination, and Reflexes ?? Gait Gait: normal ?? Reflexes Right brachioradialis: 1+ Left brachioradialis: 1+ Right biceps: 1+ Left biceps: 1+ Right triceps: 1+ Left triceps: 1+ Right patellar: 1+ Left patellar: 1+ Right achilles: 1+ Left achilles: 1+ Right admin asst: 1+ Left admin asst: 1+ Right plantar: normal Left plantar: normal Right Penny: absent Left Penny: absent Right ankle clonus: absent Left ankle clonus: absent ? Labs: No results found for: WBC, HGB, HCT, PLT, NA, K, INR No results found for: URINELEUKOC, NITRITEUA, KETONEURINE, BLOODUA, WBCU, WBCURINE, RBCUA, BACTERIAUA, UREPITHELIAL No results found for: CA, [id number], VITD25, [id number], [id number], [id number], [id number], [id number], VITAMINDTO, [id number], TSH No components found for: NICU, COTU, NICS, COTS ?? Imaging Studies: I dependently reviewed cervical MRI this shows she has disc osteophyte at C4-5 on the right side causing severe neural neural foraminal stenosis there is also a significant disc bulge osteophyte on the left at C5-6 there appears to be more mild cord compression at 4 5. On this imaging in the sagittal views there is a large disc herniation at T8 2-3 causing what appears to be cord compression but there are no axial views of this level, there also appears to be T2 signal increase in the spinal cord. ? Assessment and Plan: ? ICD-10-CM ICD-9-CM ?? 1. Neck pain M54.2 723.1 ?? 2. Cervical spondylosis with radiculopathy M47.22 721.0 ?? 3. Thoracic spondylosis with cord compression M47.14 721.41 ? Impression: 65-year-old female with neck and right arm pain and posterior headaches, found to have cervical spondylosis with disc osteophytes causing severe right C4-5 NFS and stenosis at C5-6, She also has disc herniation at T2-3 with severe stenosis/cord compression ?? Plan: ACDF at C4/5 & C5/6 And posterior decompression/laminectomy at T2-3. All patient's questions have been answered to their satisfaction and to their level of understanding, alternative surgical techniques and non-operative management have also been discussed. Risks of recurrent disease, need for additional treatment, nonunion, infection, nerve injury potentially resulting in temporary or permanent numbness, weakness, persistent pain or paralysis, vocal cord injury, dysphagia ,hematoma causing airway obstruction, CSF leak have been discussed in detail. The patient consents to surgery and wish to proceed. Katherin Patton MD 03/13/2021 ICAL DIETICIAN documented in this encounter Procedure Notes * Jocelin Goins MD - 03/17/2021 3:14 PM CST Central Venous Catheter Insertion Procedure Note Procedure: Insertion of Central Venous Catheter Indications: IV medications Surgeon: Jocelin Goins MD. Silvestre Levine MD Procedure Details Informed consent was obtained for the procedure, including possible sedation. Risks of lung perforation, hemorrhage, infection, arrhythmia, and adverse drug reaction were discussed. Time-Out Process performed, verified patient identification, verified procedure, verified site/side, verified correct patient position, special equipment/implants available. The skin above the left subclavian vein was prepped with chlorhexidine. Under sterile conditions (hand hygiene prior to donning gloves, gown, mask, sterile drape), maximal barrier precautions (mask, hat, sterile gloves and gown for the person performing the procedure and full body drape on the patient) were utilized. Local anesthesia was infiltrated into the skin and subcutaneous tissues. An 18-gauge needle was inserted into the vein. A guide wire was easily inserted through the needle. While inserting the guide wire no arrhythmias occurred. The needle was withdrawn over the guide wire. A scalpel was used to puncture the skin entry site to facilitate catheter insertion. The dilator was passed over the guide wire and removed. A triple-lumen catheter was inserted into the vessel over the guide wire. The guide wire was removed. Catheter was aspirated for blood, flushed, and secured with suture. A CHG impregnated sterile dressing was applied to the catheter. Ultrasound Guidance: no Complications: None; patient tolerated the procedure well. Condition: stable. Recommendations: CXR ordered to verify placement. Attending Attestation:This procedure was performed independently of the time included in today's admission/progress note(s). This procedure was performed under the direct supervision of Dr. Levine, who was present for the entire procedure. 03/18/2021 ICAL DIETICIAN * Janice Alanis MD - 03/14/2021 4:37 AM CSTProcedure(s): ARTERIAL LINE INSERTION Pre-Procedure Diagnose(s): SCC (spinal cord compression) Post-Procedure Diagnose(s): SCC (spinal cord compression) Arterial Catheter Insertion Procedure Note Indications: Titration of vasoactive medication Surgeon: Janice Alanis MD Procedure Details Informed consent was obtained for the procedure, including possible sedation. Risks of hemorrhage, infection, arterial occlusion, and possible limb or digit ischemia were discussed. Time-Out Process was performed, verified patient identification, verified procedure, verified site/side, verified correct patient position, special equipment/implants available. Under sterile conditions (hand hygiene prior to donning gloves, gown, mask, sterile drape), the skin above the right femoral artery was prepped with chlorhexidine. Local anesthesia was infiltrated into the skin and subcutaneous tissues. A 21-gauge needle was inserted into the artery. A guide wire was easily inserted through the needle. The needle was withdrawn over the guide wire. The arterial catheter was advanced over the guide wire and the guide wire was removed. The arterial catheter was connected to the pressure tubing for the system. The catheter was flushed and the tracing was adequate. The catheter was sutured, and a transparent dressing was applied. N/A Complications: None; patient tolerated the procedure well. Condition: stable. Attending Attestation:Attending Attestation:This procedure was performed independently of the time included in today's admission/progress note(s). This procedure was performed under the supervision of . who was present for the procedure. 03/14/2021 ICAL DIETICIAN * Janice Alanis MD - 03/14/2021 4:35 AM CSTProcedure(s): CENTRAL LINE ADULT TRIPLE LUMEN Pre-Procedure Diagnose(s): SCC (spinal cord compression) Post-Procedure Diagnose(s): SCC (spinal cord compression) Central Venous Catheter Insertion Procedure Note Procedure: Insertion of Central Venous Catheter Indications: IV medications Surgeon: Janice Alanis MD Procedure Details Informed consent was obtained for the procedure, including possible sedation. Risks of lung perforation, hemorrhage, infection, arrhythmia, and adverse drug reaction were discussed. Time-Out Process performed, verified patient identification, verified procedure, verified site/side, verified correct patient position, special equipment/implants available. The skin above the right femoral vein was prepped with chlorhexidine. Under sterile conditions (hand hygiene prior to donning gloves, gown, mask, sterile drape), maximal barrier precautions (mask, hat, sterile gloves and gown for the person performing the procedure and full body drape on the patient) were utilized. Local anesthesia was infiltrated into the skin and subcutaneous tissues. An 18-gauge needle was inserted into the vein. A guide wire was easily inserted through the needle. The needle was withdrawn over the guide wire. A scalpel was used to puncture the skin entry site to facilitate catheter insertion. The dilator was passed over the guide wire and removed. A triple- lumen catheter was inserted into the vessel over the guide wire. The guide wire was removed. Catheter was aspirated for blood, flushed, and secured with suture. A CHG impregnated sterile dressing was applied to the catheter. An IV line was connected to the central line to perform a drop test.. Ultrasound Guidance: yes Complications: None; patient tolerated the procedure well. Condition: stable. Recommendations: none Attending Attestation:This procedure was performed independently of the time included in today's admission/progress note(s). This procedure was performed under the direct supervision of Dr. Veliz, who was present for the entire procedure. 03/14/2021 ICAL DIETICIAN documented in this encounter Consult Notes * Ray Mock PA - 03/27/2021 1:27 PM CSTAssociated Order(s): IP CONSULT TO PHYSICAL MEDICINE REHAB Internal Medicine/Rehabilitation Consult Patient: Vick Tanner Date of : 1955 Vitals With Comments 03/27/2021 0856 03/27/2021 0610 03/27/2021 0404 03/27/2021 0011 BP: 130/65 138/64 105/53 129/62 Pulse: 75 -- 85 86 Resp: 18 -- 18 20 Temp: 98.6 ??F (37 ??C) -- 98.8 ??F (37.1 ??C) 98.6 ??F (37 ??C) Temp src: Oral -- Oral Oral SpO2: 97 % -- 95 % 97 % DIET GENERAL Effective Now Full Code tiZANidine, 4 mg, every 8 hours sodium chloride, 3 Gram, every 8 hours fludrocortisone, 0.2 mg, daily midodrine, 15 mg, every 8 hours pantoprazole, 40 mg, daily BEFORE breakfast polyethylene glycol, 17 Gram, daily enoxaparin, 40 mg, every 24 hours gabapentin, 200 mg, every 8 hours atropine, , hydrALAZINE, , dextrose 5% - sodium chloride 0.9%, , see admin instructions dextrose, 12.5 Gram, see admin instructions dextrose, 25 Gram, see admin instructions glucagon (human recombinant), 1 mg, see admin instructions fluticasone propionate, 2 [place], daily naloxone, 0.1 mg, see admin instructions docusate sodium, 100 mg, BID Timeline (including subjective): 03/27/2021- Pt with notable Brown Sequard syndrome. However she is able to participate in some therapies. Will tolerate three hours of aggressive therapy in inpatient rehab. Patient is an acceptable candidate for the rehab hospital. Pt wants to leave today and start her improvements . Education and dianetic counselor provided. She does have notable right sided weakness but is more profound on her LLE. Her thoracic incision is clean, dry, and intact. She is s/p ACDF at C4/5 and C5/6 and Posterior decompression/laminectomy at T2-3. Pain is non-existence. + incomplete pattern of injury showing a hemisection of the spinal cord with + weakness and sensory derangement. Of note, prognosis for significant motor recovery in Brown-S??quard syndrome is good. One half to two thirds of the 1- year motor recovery occurs within the first 1-2 months following injury. Vital signs are ideal. Unable to urinate on her own and is needing some intermittent catheterizations. Discussed with entire team including liaison. Pt has family for support as her healing continues. 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 Cord compression HTN (hypertension) GERD (gastroesophageal reflux disease) Arthritis Hyponatremia Urinary retention Neurological deficit present Neck pain Medication Profile: Allergies Allergen Reactions Codeine Nausea and Vomiting Oxycodone Nausea and Vomiting Scheduled Medication Profile: Facility-Administered Medications as of 03/27/2021 Medication Dose Frequency Provider Last Rate Last Admin tiZANidine (ZANAFLEX) tablet 4 mg 4 mg every 8 hours Katherin Patton MD 4 mg at 03/27/21 0929 zolpidem (AMBIEN) tablet 5 mg 5 mg at bedtime PRN Katherin Patton MD sodium chloride tablet 3 Gram 3 Gram every 8 hours Tab Jonas MD 3 Gram at 03/27/21 0502 bisacodyL (DULCOLAX) rectal suppository 10 mg 10 mg daily PRN Tab Jonas MD 10 mg at 03/25/21 1022 fludrocortisone (FLORINEF) tablet 0.2 mg 0.2 mg daily Tab Jonas MD 0.2 mg at 03/27/21 0928 [COMPLETED] sodium chloride 0.9% bolus solution 500 mL 500 mL ONE time only Silvestre Levine DO Stopped at 03/23/21 0922 midodrine (PROAMATINE) tablet 15 mg 15 mg every 8 hours Tab Jonas MD 15 mg at 03/27/21 0500 [COMPLETED] lactulose (ENULOSE) 10 gram/15 mL oral solution 45 mL 45 mL ONE time only Jocelin Goins MD 45 mL at 03/22/21 184 [COMPLETED] dexamethasone (DECADRON) injection 2 mg 2 mg every 12 hours (2 times daily) Radha Chanel PA 2 mg at 03/21/212022 [COMPLETED] lactulose (ENULOSE) 10 gram/15 mL oral solution 45 mL 45 mL ONE time only Silvestre Levine DO 45 mL at 03/21/21 1330 [COMPLETED] lactulose (ENULOSE) 10 gram/15 mL oral solution 30 mL 30 mL ONE time only Jocelin Goins MD 30 mL at 03/20/21 1555 pantoprazole (PROTONIX) tablet 40 mg 40 mg daily BEFORE breakfast Tab Jonas MD 40 mg at 503 polyethylene glycol (MIRALAX) packet 17 Gram 17 Gram daily Tab Jonas MD 17 Gram at 03/27/21 0936 enoxaparin (LOVENOX) injection 40 mg 40 mg every 24 hours Tab Jonas MD 40 mg at 03/26/212015 gabapentin (NEURONTIN) capsule 200 mg 200 mg every 8 hours Tab Jonas MD 200 mg at 03/27/21 0502 [COMPLETED] sodium chloride 0.9% bolus solution 500 mL 500 mL ONE time only Jocelin Goins MD Stopped at 03/17/21 1130 [COMPLETED] diazePAM (VALIUM) injection 1 mg 1 mg every 15 minutes PRN Jocelin Goins MD 1 mg at 03/17/21 1430 [COMPLETED] Iopamidol (ISOVUE-M 200) 41 % intrathecal injection 20 mL 20 mL intra-proc ONE time Cliff Seaman MD 20 mL at 03/17/21 1519 [COMPLETED] LIDOCAINE (PF) 10 MG/ML (1 %) INJECTION SOLUTION (CABINET OVERRIDE) 1 mL at 03/17/21 1704 ATROPINE 0.1 MG/ML INJECTION SYRINGE (CABINET OVERRIDE) [COMPLETED] potassium, sodium phosphates (PHOS-NaK) 280-160-250 mg oral powder 2 Packet 2 Packet ONE time only Jocelin Goins MD 2 Packet at 03/15/21 0802 [COMPLETED] HYPERTONIC sodium chloride 2% infusion ONE time only Lalit Ortiz DO 50 mL/hr at 03/15/21 1800 Rate Verify at 03/15/21 1800 [COMPLETED] hydrALAZINE (APRESOLINE) 20 mg/mL injection 10 mg 10 mg ONE time only Jeanne Hemphill MD 10 mg at 03/15/21 2000 HYDRALAZINE 20 MG/ML INJECTION SOLUTION (CABINET OVERRIDE) acetaminophen (TYLENOL) tablet 650 mg 650 mg every 6 hours PRN Tab Jonas MD 650 mg at 03/27/21 0500 ondansetron (ZOFRAN) 4 mg/2 mL injection 4 mg 4 mg every 6 hours PRN Tab Jonas MD 4 mg at 03/23/21 0908 [COMPLETED] sodium chloride 0.9% bolus solution 500 mL 500 mL ONE time only Janice Alanis MD 999 mL/hr at 03/14/21 0326 500 mL at 03/14/21 0326 dextrose 5% - sodium chloride 0.9% infusion see admin instructions Tab Jonas MD dextrose 50% (D50) syringe 12.5 Gram 12.5 Gram see admin instructions Tab Jonas MD dextrose 50% (D50) syringe 25 Gram 25 Gram see admin instructions Tab Jonas MD glucagon HCL 1 mg/mL injection 1 mg 1 mg see admin instructions Tab Jonas MD [COMPLETED] lidocaine PF 2% (XYLOCAINE MPF) injection 0.3 mL 0.3 mL ONE time only Paulie Lam MD 0.3 mL at 03/13/21 1208 [COMPLETED] acetaminophen (TYLENOL) tablet 650 mg 650 mg pre-proc one time Matty Gonzalez MD 650 mg at 03/13/21 1102 [COMPLETED] ceFAZolin in sterile water (ANCEF) 2 gram/20 mL IV Syringe (PREMIX) 2,000 mg 2,000 mg pre-proc one time Katherin Patton MD 2,000 mg at 03/13/21 1354 fluticasone propionate (FLONASE) 50 mcg/spray nasal inhaler 2 [place] 2 [place] daily Tab Jonas MD 2Spray at 03/27/21 0941 naloxone (NARCAN) 0.4 mg/mL injection 0.1 mg 0.1 mg see admin instructions Tab Jonas MD docusate sodium (COLACE) capsule 100 mg 100 mg BID Tab Jonas MD 100 mg at 03/27/21 0927 [COMPLETED] ceFAZolin (ANCEF) 2,000 mg in dextrose (iso-osmotic) 100 mL IVPB (PREMIX) 2,000 mg post-proc every 8 hours Dougie Bell PA Stopped at 03/14/21 0720 [] dexamethasone (DECADRON) injection 10 mg 10 mg every 6 hours Katherin Patton MD 10 mg at 03/14/21 1755 Admission Data : CC: Brown-Sequard syndrome s/p ACDF at C4/5 and C5/6 and Posterior decompression/laminectomy at T2-3 HPI: Vick Tanner is a 65 y.o. female who is currently being evaluated for comprehensive rehabilitation - multiple complex medical issues will impact medical management throughout the acute inpatient process. Pt has a significant medical history including but not limited to arthritis, GERD, andHTN. Pt presented to [facility] on 03/13 with c/o posterior headaches, neck [...] There was also large disc herniation at T82-3 causing cord compression and T2 signal increase. Pt brought to OR and underwent ACDF at C4/5 and C5/6 as well [...] left. On Lovenox for dvt prx, can befully AC. We have been placed on consult to evaluate patient's appropriateness for rehab. Patient wo uld benefit greatly for our acute rehab services and has been deemed appropriate for admission pending disposition to [facility]. Past Medical History: Diagnosis Date Arthritis GERD (gastroesophageal reflux disease) Difficulty taking NSAIDs. HTN (hypertension) Post-operative nausea and vomiting Past Surgical History: Procedure Laterality Date ENDOSCOPY, UPPER GI HX ANTERIOR CERVICAL DISCECTOMY W/ FUSION N/A 03/13/2021 CERVICAL DISCECTOMY FUSION 2 LEVEL ANTERIOR performed by Katherin Patton MD at [facility] HX SECTION x 2 HX COLONOSCOPY HX HYSTERECTOMY HX MENISCECTOMY Right N/A [place] FORREST W/O FACETEC FORAMOT/[facility] 04/13 VRT SEG, THORACIC N/A 03/13/2021 THORACIC LAMINECTOMY performed by Katherin Patton MD at [facility] OR [facility] Family History Problem Relation Name Age [...] new abdominal pain, heat or cold intolerance +weakness, Objective Data: Vitals With Comments 03/27/2021 0856 03/27/2021 0610 03/27/2021 0404 03/27/2021 0011 BP: 130/65 138/64 105/53 129/62 Pulse: 75 -- 85 86 Resp: 18 -- 18 20 Temp: 98.6 ??F (37 ??C) -- 98.8 ??F (37.1 ??C) 98.6 ??F (37 ??C) Temp src: Oral -- Oral Oral SpO2: 97 % -- 95 % 97 % No intake/output data recorded. General alert, awake, no cardiopulmonary distress, weakness, + neck incision is pristine Lungs Decreased breath sounds at bases Heart regular rate and rhythm Abdomen soft, non-tender, with bowel sounds, + obese Extremities pulses noted, no cyanosis CBC result [...] (most recent): No results found for: HGBA1C, [id number] LIPID panel result (most recent): No results [...] 03/13/21 EKG 12-LEAD Narrative Stationary ECG Study [facility] Test Date: 03/17/2021 7:05 PM Pat Name: VICK TANNER Department: 45 Room: [facility] 6 Gender: F Nursing Consultant: harlan : 1955 Requested By: KATHERIN Lindsay Order Number: [id number] Reading MD: Bhupinder Morales Measurements Intervals Points Rate: 63 P: 53 AK: 165 QRS: 15 QRSD: 96 T: 22 QT: 433 QTc: 444 Interpretive Statements Sinus rhythm Ventricular premature complex Left atrial enlargement Low voltage, precordial leads PRWP Electronically Signed On 03-18-2021 8:08:07 CLINICAL DIETICIAN by Bhupinder Morales Hospitalist Statement: The Internal Medicine team participates in patient care to directly impact the acute rehabilitationprocess. Ongoing efforts to coordinate care, maintain euvolemia, adequate nutrition, electrolyte management, appropriate BP management, overall stability, and management of co-morbidites individuallyare being dictated by clinical progress. Documentation partially completed using dictation services and EMR. Please excuse any typographicalerrors that may have occurred. Thank you for your consideration. DEDE Price ICAL DIETICIAN documented in this encounter OR Notes * Operative Report - Katherin Patton MD - 03/13/2021 4:44 PM CST [place], [place] [address] Operative Report CSN: [id number] Two-level Anterior Cervical Discectomy and Fusion& T2/3 laminectomy Patient: Vick Tanner / 65 y.o. / female : 1955 Procedure Date: 03/13/2021 Indications: The patient is a 65 y.o. female with cervical stenosis and T2/3 stenosis Pre-operative Diagnosis: C4-C5, C5-C6 and T2/3 stenosis Post-operative Diagnosis: Same Operation: 1. Anterior cervical discectomy and fusion at C4-C5 and C5-C6 2. T2/3 laminectomy Procedure: 1. Anterior C4-C5 and C5-C6 decompression with discectomy and removal of osteophyte 2. Anterior C4-C5-C6 fusion with two 7mm cadaveric spacers and 32mm ACP Nuvasvie plate 3. T2/3 laminectomy 4. Procedure Details Surgeon: Katherin Patton MD The PA was present and necessary for assist in every aspect of case. She provided direct assistancein patient transport, positioning and acted as a welder assistant providing retraction, suturing, and closure in all aspects of surgical procedure from start to finish. Construction Superintendent: EZEQUIEL bell, who assisted with all portions of the procedure, providing retraction,irrigation suction and aid with closure Anesthesia: General endotracheal anesthesia Indications and Consent: Vick Tanner is a 65 y.o. year old female who presents with symptoms of cervical and thoracic stenosis. The risks and benefits of surgery as well as treatment alternatives were discussed with the patient as part of the informed consent process and is detailed in the chart. Following that discussion the patient decided to proceed with surgery. Surgery: After induction of general anesthesia the patient was placed in the prone position on the Lazarus frame. His prior areas of pressure the back her neck and upper thoracic area were prepped anddraped in normal sterile fashion. A linear incision was carried down to expose the cervical thoracic lamina. We put a Allen clamp between the lamina of T1 and T2 and did an O arm spin confirming thatthis was a T1-2 level. We then moved down 1 level to expose T2-T3 and then used [place] rongeurs and Kerrison punches and high-speed drill to perform a T2- 3 laminectomy. There is a marked amount of medial facet hypertrophy and ligamentous hypertrophy so we remove the ligamentum flavum using 2 and 3mm Kerrison punches and widen the foramen in the medial facet until the spinal cord was well decompressed after this was done we irrigated copiously bacitracin irrigation. The be bleeding from the bone edges was controlled with bone wax. There is no significant bleeding after irrigated a final timeand then closed with 0 Vicryl sutures in the fascial layer to right sutures in the subcutaneous layer running subicular Monocryl for the skin. A sterile bandage was placed and then the patient was turned into the supine position for the anterior portion of the operation under illumination of a portable headlight and surgical telescopes, a 10 blade was used to incise the skin and subcutaneous fat and a pediatric [place] retractor inserted to hold back the skin edges. Monopolar cautery with an insulated sleeve was used to cut through the platysma muscle and the pediatric [place]it[place] retractor repositioned to hold back the skin and muscle edges. The anterior jugular and communicating veins were identified, bipolared and sharply cut. Blunt dissection was used toremove the superficial cervical fascia and separate the sternocleidomastoid muscle laterally from the sternohyoid and superior belly of the omohyoid medially. A narrow Cloward retractor was then placed in the medial portion of the incision and the thyrohyoid muscle bluntly dissected medially to expose the anterior portion of the cervical vertebra. My assistant media buyer took control of the Cloward retractor while I used a suction and insulated monopolar cautery to dissect the anterior longitudinal ligament from the vertebral bodies and intervertebral discs. We then measured the depth of the wound in order to select an appropriate sized [place] self-retaining retractor set. This retractor was firstplaced medially and laterally followed by two additional retractors superiorly and inferiorly in order to expose the adjacent vertebral bodies and intervertebral disc. Xray was brought in to the room, drapped in sterile fashion, and was positioned at the patients cervical spine. A spinal needle wasplaced in the C4-C5 disc space, while an image with the X-ray was done to confirm the appropriate level. The spinal needle was removed and the same intervertebral disc marked with monopolar cautery. A small cubical portion of the disc was excised with a 15 blade and removed with a pituitary Rongeurs to denote the correct level. Next the 12 mm [place] distracting pins were screwed into the adjacentvertebral bodies with the [place] distractor placed over the pins and opened to finger-tight pressure. I then removed my surgical telescopes and headlight and brought in the operating microscope to assist with microdissection of the intervertebral disc and posterior longitudinal ligament. We spent several minutes decompressing the thecal sac and nerve roots so that they were free of disc and bony entrapment. Micodissection and removal of the intervertebral disc was carried out using a combination of 4-0 forward-angled curettes, 4-0 straight curettes, Anspachdrill using the 14 MH 30 ([employer]) bit, 1 and 2 mm Kerrison punches and micropituitary Rongeurs. Once the contents of the disc space were removed I identified the posterior longitudinal ligament and incised it with a blunt nerve hookand M-knife to expose the underlying dura. The remainder of the posterior longitudinal ligament wasremoved with a 1 mm Kerrison punch. I then palpated the left and right nerve root with a blunt micro nerve hook to ensure that no disc material was left in the neural foramen. The end plates of the adjacent vertebral bodies were then prepared with the Anspach drill and straight 4-0 curettes. A 7 mmsizer was put into the evacuated space which provided a tight but not overdistracted fit. Subsequently a 7 mm CADAVERIC SPACER was tapped into the intervertebral space. We then moved down to the C5-C6 level and performed the same decompression procedure using a 7 mm CADAVERIC SPACER. The [place] pins were removed and bone wax was stuffed into the residual holes to preclude further bleeding. Once hemostasis was achieved we sized a 32 mm nuvasive acp plate and placed 14 mm self-tapping screws justsuperior and inferior to the bone plug so as to fit in the lower portion of the superior vertebral body and the upper portion of the inferior vertebral body. The screws were secured down and the locks were twisted over the screws of the plate and the wound was irrigated with approximately 600 cc ofBacitracin injected saline. Closure: The [place] retractor was removed and the platysma muscle reapproximated with interrupted 3.0 Vicryl sutures. The subcutaneous tissue was also reapproxiamted with a running 4.0 Vicryl subcutaneous stitch. Sterile dressing was then applied Estimated Blood Loss: Minimal Drains: None Specimens: None Complications: None; patient tolerated the procedure well. Disposition: Vick Tanner was extubated by the anesthesia team, removed from the operating roomtable, placed on the patient gurney and taken to the recovery area. The patient awoke neurologically unchanged. Katherin Patton MD ICAL DIETICIAN * Charlene-OP - Lee Kern RN - 03/13/2021 10:28 AM CST Knowledge deficit related to procedure/environment Interventions: Assess learning needs and willingness to learn; give clear, concise explanations of the environment and sequence of events surrounding the periop experience; address patient/family questions and concerns; provide teaching as indicated, provide teaching related to postoperative pain assessment utilizing pain scales Expected Outcome: Patient verbalizes or demonstrates awareness/understanding of surgery and perioperative experience Outcome Met: Questions and concerns addressed and answered ICAL DIETICIAN * Charlene-OP - Mary Ann Grady RN - 02/17/2021 8:56 AM CST Pt states she is going to have her covid test at her PCP's office. She was instructed to have the covid test 3-5 days prior to dos and to have the results faxed to Dr Patton's office as well as bringcopy with her dos. Dr Patton's fax number was provided. Pt verbalizes understanding. ICAL DIETICIAN documented in this encounter Miscellaneous Notes * Care Plan - Sanya Grant, Physical Therapist - 03/27/2021 10:51 AM CLINICAL DIETICIAN Problem: Physical Mobility, Impaired Goal: Mobility goal: Improve transfer ability by discharge Description: Patient will transfer supine to sit with minimal assistance and bed to chair with min assist x 1 Outcome: Progressing Flowsheets (Taken 03/27/2021 09) PT Treatment Start Time: 956 PT Treatment Stop Time: 1050 S: Patient agreeable to therapy. Voices feeling a bit better today and is ready to work on sitting up again. She remains hopeful to get to rehab soon O: Cognition/ Perception: Alert and oriented x 4 Weight Bearing: no restrictions Skin Integrity: B LE in tact Precautions: Fall, B LE compression and abdominal binder for mobility for blood pressure management Exercises: Bilateral LE A-AROM, PROM x 10-15 reps x 2 sets supine Type: Supine Exercises: transversus sets, heel slides, ankle pumps, gluteal sets, quad sets, hip abduction/adduction --LE ROM performed to increase ROM, increase strength, increase muscular endurance, prevent loss ofjoint mobility to promote independence with functional mobility and gait. MOBILITY ASSESSMENT Bed Mobility: tolerated rolling side to side in bed with mod assist x 1 going to the right and min assist x 1 going to the left. Displays excellent B UE use and maintains side lying with SBA and occasional min assist x 1 to reposition while in side lying. Patient was donned with B LE compression garment and abdominal binder prior to sitting. Max assist x 1 for supine<>sitting EOB, quickly pr ogressing to min assist x 1 for balance at EOB with heavy B UE support on the bed to prevent falling. Without B UE support she requires max assist x 1 for trunk control. Tolerates 15+ of sitting EOB while performing standing tasks Transfers: performed partial sit to stand with max assist x 1 in the francesco stedy x 6 trials today. Short rest between each trial given. Then performed sit<>stand x 2 trials with frontal support with R knee blocking and max assist x 1. Patient was able to come up into full standing with R knee still blocked and heavy cues given for improved R LE terminal knee extension. Rest break required between trials. After her 8+ attempts at standing she notes that she would like to lie down for rest. Max assist x 1 for sit<>supine and to reposition to head of bed. Based on current trunk control I would not advise a slide board transfer yet and stand pivots appear inappropriate today yet. Would possibly benefit from a lateral transfer Gait: not feasible Equipment to be issued at discharge: DME: To be determined (03/27/21956) Education: PT plan of care and progression of mobility Other: Patient tolerates PT well and tolerated significantly more activity today. She was able to come up into full standing with significant assist from PT. I would be hopeful she could squat pivot in the next few days if standing improves Positioning after tx: seated up in bed with bed alarm active, call light in reach, resting quietly. A: Response to treatment: Progressing towards goals Recommend: Post acute care;Will tolerate 3 hours of therapy (03/27/21956) Recommendations were made on today's assessment. Additional recommendations will be based on patient's progress in therapy. P: Continue PT 7x/wk OD at bedside for Transfer training, Gait training, Exercises, Balance training, unless change in status or patient is discharged from the facility. Plan of Care developed, as indicated by PT assessment and patient's current status. Please refer to plan of care for updates on goals. Zone #: [id number] ICAL DIETICIAN * Care Plan - Jocelin Oneill GN - 03/27/2021 6:02 AM CST Patient is A&O x 4. Sensation and strength decreased in BLE. Patient is incontinent of bowel with one bowel movement this shift. Patient unable to void. Straight cath x2. Dr. Patton contacted before the last straight cath due to it being the 3rd in 24 hours. No new orders, okay to move forward with the straight cath. Activity Q2 turns. Patient complains of slight headache, medicated per JUN. Fall precautions in place. Patient slept between care. ICAL DIETICIAN * Care Plan - Rosa Alvarez, Physical Therapist - 03/26/2021 12:02 PM CST Problem: Physical Mobility, Impaired Goal: Mobility goal: Improve transfer ability by discharge Description: Patient will transfer supine to sit with minimal assistance and bed to chair with min assist x 1 Outcome: Progressing S: Patient agreeable to therapy. Pt reports soreness in upper back but no pain this date. O: Cognition/ Perception: Alert and oriented x 4 Weight Bearing: No restrictions Skin Integrity: Observed skin was intact Precautions: Fall, abdominal binder and kim hose on before mobility Exercises: Bilateral LE AROM, A-AROM x 10 reps, supine Type: Supine Exercises: heel slides, ankle pumps, hip abduction/adduction --LE ROM performed to increase ROM, increase strength, increase muscular endurance, prevent loss ofjoint mobility to promote independence with functional mobility and gait. MOBILITY ASSESSMENT Bed Mobility: Physical therapist donned kim hose on pt's bilateral LEs and abdominal binder in supine. Mod A x 1 to roll side to side in bed while placing abdominal binder. Supine to sitting EOB withmax A of OT to lift bilateral LEs over EOB and max A of PT to assist trunk to upright. Pt sat EOB with mod A of PT to stabilize trunk and intermittent min A of OT to block knees while performing ADLs, assisted UE exercises with OT, and lateral trunk leans x 5 reps bilaterally. Sitting EOB to supinewith Max A x 2. Max A x 2 to position pt up towards HOB with bed in trendelenberg. Transfers: Not balanced enough in short sitting to slide board transfer yet. Equipment to be issued at discharge: DME: To be determined (03/24/211048) Education: PT POC, functional mobility, LE exercises Positioning after tx: Pt supine in bed with blue wedge positioned under R side for pressure relief.Donned Linard boot on pt's R foot. Positioned pillows under pt's shoulders for comfort. OT in room setting up purewick. A: Response to treatment: Progressing towards goals Recommend: Post acute care;Will tolerate 3 hours of therapy (03/24/211048) Recommendations were made on today's assessment. Additional recommendations will be based on patient's progress in therapy. P: Continue PT 7x/wk OD at bedside for Transfer training, Gait training, Exercises, Balance training, unless change in status or patient is discharged from the facility. Plan of Care developed, as indicated by PT assessment and patient's current status. Please refer to plan of care for updates on goals. Zone #: [id number] ICAL DIETICIAN * Care Plan - Leisa Gotti, Occupational Therapist - 03/26/2021 11:32 AM CLINICAL DIETICIAN Problem: Physical Mobility, Impaired Goal: Mobility goal: Improve transfer ability by discharge Description: Patient will transfer to/from toilet and to/from tub/shower with modified independent. Outcome: Progressing Problem: Self-Care Deficit Goal: Self care goal: Improve dressing ability by discharge Description: Patient will require modified independent with upper extremity and lower extremity dressing with adaptive equipment. Outcome: Progressing S: Patient agrees to therapy co-treat for safety, supine in bed O: Cognition/ Perception: Alert and oriented, follows commands Weight Bearing: No weightbearing restrictions Precautions: Fall; Exercises: Bilateral UE AROM, AAROM x 5-10 reps ---UE Exercises: Shoulder flex/extension and abduction/adduction, elbow flex/extension, pronation/supination, hand/wrist ROM. UE exercises to help improve pts strength, ROM and [place] with selfcare. FUNCTIONAL ACTIVITIES Grooming: sat EOB for oral hygiene with setup assist, mod A for trunk control. UE Dressing: managed gown max A Functional mobility: Supine <> sitting EOB max A x2, PT provided posterior support and OT assisted with BLE Static sitting balance varied mod A to min A with PT supporting pt's trunk and OT completing ADLs and BUE exercises with Pt. Pt also completed lateral leans L <> R with PT providing posterior support and OT blocking pt's B knees. Max A x2 to boost pt towards HOB with hovermat Rolled L <> R mod A for placement of hovermat Equipment Recommended at discharge: defer to post acute Education: BUE exercises, ADLs, OT POC Positioning after tx: supine in bed, blue wedge under R side, L'nard boot on R foot, purewick in place A: Response to treatment: Pt participated and tolerated session well Recommend: Post-Acute Facility, Post Acute Facility- will tolerate 3 hours of therapy/day Recommendations were made on today's assessment. Additional recommendations will be based on patient's progress in therapy. P: Continue 2-5x/wk at bedside for: ADL Training, Functional Mobility Training, UE ROM/Strengthening, Patient Education, Cognition/Perception unless change in status [facility] Plan of Care developed, as indicated by OT assessment and patient's current status. Please refer to plan of care for updates on goals. Zone #: [id number] ICAL DIETICIAN * Care Plan - Jocelin Oneill GN - 03/26/2021 6:33 AM CST Patient is A&O x 4. Neurovascular checks done every 4 hours. Patient complains of numbness in both legs. Tele initiated, Patient has watkins catheter in place. Activity Q2 turns. Fall precautions in place. Patient slept between care.. ICAL DIETICIAN * Therapy Treatment - Melanie Beach Physical Therapist - 03/25/2021 4:13 PM CST 03/25/21: PT treatment attempted this PM, pt unavailable as transferring rooms out of ICU at this time. Will continue to follow and attempt as able. Thank you. #[id number] ICAL DIETICIAN * Care Plan - Jocelin Mckeon Occupational Therapist - 03/25/2021 2:58 PM CLINICAL DIETICIAN Problem: Physical Mobility, Impaired Goal: Mobility goal: Improve transfer ability by discharge Description: Patient will transfer to/from toilet and to/from tub/shower with modified independent. Outcome: Progressing Problem: Self-Care Deficit Goal: Self care goal: Improve dressing ability by discharge Description: Patient will require modified independent with upper extremity and lower extremity dressing with adaptive equipment. Outcome: Progressing Flowsheets Taken 03/25/2021 1456 by Bocek, Jocelin L, Occupational Therapist Therapy Comments: BLE DESIRE wraps, compression, abdominal binder - monitor BP with EOB Tue: X Pain Management Interventions: positioning relaxation Response to Interventions: content/relaxed Present Activity: in bed Physical Assist/Nonphysical Assist: w/ 1 person assist Total Treatment Time (min): 24 OT Current Discharge Recommendation: Will tolerate 3 hours of therapy OT Treatment Start Time: 1327 OT Treatment Stop Time: 1351 Pain Rating: Rest: 0 Pain Rating: Activity: 0 OT Recommended DME: To be determined S: Patient agrees to therapy. Per RN, patient appropriate for OT session at this time. O: Cognition/ Perception: Alert and oriented x4, followed 100% of commands throughout session Skin Integrity: All visible skin intact Weight Bearing: none Precautions: Fall Exercises: Bilateral UE AROM x 20 reps, using yellow theraband; x 10 reps AAROM BLE ---UE Exercises: Shoulder flex/extension and abduction/adduction, elbow flex/extension, pronation/supination, hand/wrist ROM. UE exercises to help improve pts strength, ROM and [place] with selfcare. FUNCTIONAL ACTIVITIES Grooming: SBA to wipe face LE Dressing: max assist to don and doff BLE compression stockings, DESIRE wraps, abdominal binder Functional mobility: pt brought up to cardiac chair positioning slowly in bed, tolerates well. Attempted sit<>supine but RN in room to pull lines and get pt ready for transportation in room to take pt to her new room assignment. Equipment Recommended at discharge: tbd Education: OT plan of care Positioning after tx: Patient supine in bed with bed alarm on, all lines intact, B UE/LEs elevated for comfort and maintained skin integrity, personal items and call light within reach. Other: RN notified of patient position, all compression doffed at end of session A: Response to treatment: Patient continues to progress towards goals in OT plan of care. Patient would benefit from continued OT services at this time to address safety awareness, ADLs, and functional mobility. Recommend: Post Acute Facility- will tolerate 3 hours of therapy/day Recommendations were made on today's assessment. Additional recommendations will be based on patient's progress in therapy. P: Continue OT 2-5 times a week at bedside for: ADL Training, Functional Mobility Training, UE ROM/Strengthening, Patient Education, Cognition/Perception unless change in status or patient is discharged from the facility. Plan of Care developed, as indicated by OT assessment and patient's current status. Please refer to plan of care for updates on goals. Jocelin Mckeon, Occupational Therapist Zone #: [id number] ICAL DIETICIAN * Care Plan - Roseanna Badillo RN - 03/24/2021 6:15 PM CST End of Shift Note: ?? Neuro:??Q4 neuro checks. A&Ox4. FC. PERRLA 3. BLE: decreased sensation & wiggles toes; R > L. Able to lift right leg off bed. BUE: normal sensation; strong. Decreased sensation to umbilicus;??improving. Tylenol given for muscle soreness. Muscle spasms controlled w/ flexeril.??Eunatremic;Na tabs given. Up in cardiac chair & dangled at bedside; tolerated well w/ no decrease in BP. ?? Resp:??RA. Clear lung sounds.? CV:??SB- NSR??50s-??90s. SBP 90s- 130s. Levo titrated for MAP goal of??> 60.??Levo @ 0.02.?2/2. Afebrile. SCDs??off; lovenox given. ?? GI:??general diet tolerating well. Moderate BM via digital disimpaction ?? :??watkins w/ adequate output. ?? Skin:??undress/assess done by TOMMY Condon & TOMMY Voss. No new skin issues. 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 Posterior neck drain removal site C/D/I. CHG bath given. Central line dressing changed and tubing changed. ?? Medication titrations/Procedures/Labs/Diagnostic Tests: ?? Patient Goals Not Met:??wean levo off. Coordinate rehab. ICAL DIETICIAN * Care Plan - Roseanna Umaña, Occupational Therapist - 03/24/2021 11:32 AM CST Problem: Physical Mobility, Impaired Goal: Mobility goal: Improve transfer ability by discharge Description: Patient will transfer to/from toilet and to/from tub/shower with modified independent. Outcome: Progressing Problem: Self-Care Deficit Goal: Self care goal: Improve dressing ability by discharge Description: Patient will require modified independent with upper extremity and lower extremity dressing with adaptive equipment. Outcome: Progressing Flowsheets Taken 03/24/2021 1307 Pain Rating: FACES (rest): 0 Pain Rating: FACES (activity): 0 Pain Management Interventions: unnecessary movement avoided Response to Interventions: content/relaxed Taken 03/24/2021 1040 Mon: X Total Treatment Time (min): 52 OT Current Discharge Recommendation: Post acute care Will tolerate 3 hours of therapy OT Recommended DME: To be determined OT Treatment Start Time: 1040 OT Treatment Stop Time: 1132 S: Patient agrees to therapy. Pt eager to show this OTR her progress since my initial OT evaluationon 03/14. OTR answered questions regarding [facility]. Pt motivated for therapy O: Cognition/ Perception: Alert and oriented x 4, very excited today about her L LE moving Weight Bearing: no restrictions Skin Integrity: No new areas of concern related to positioning/pressure. Precautions: Fall, no bending/ lifting/twisting Exercises: from bed-thera band ex's Bilateral UE AROM x 10 reps x 2, all joints in all planes ---UE Exercises: Shoulder flex/extension and abduction/adduction, elbow flex/extension, pronation/supination, hand/wrist ROM. UE exercises to help improve pts strength, ROM and [place] with selfcare. FUNCTIONAL ACTIVITIES Grooming: pt was able to perform grooming task (I) with set up sitting up in bed UE Dressing: new gown- donns to shoulders (I) with set up, max to tie in back, abdominal binder- max assist to vu rolling side to side. LE Dressing: socks, kim hose and desire wraps- max assist to don all Functional/Bed mobility: Rolling side to side to place abdominal binder-mod/max assist with use of UE on bed rail. Desire wrap, kim hose, socks and abdominal binder placed to control BP. Supine to sit with use of hover mat-max assist of 2. Sitting tolerance- 12 minutes with mod/min assist holding self up with B UE placed posterior of hips, pt fatigues quickly and requires mod/max assist for sitting balance. Sit- supine- max assist of 2 Blood pressure -Supine at start of therapy-(compression garments in place)- 114/95 (103) Sitting EOB- 80/55 (62), pt c/o dizziness Supine: 111/60 (80) Equipment recommended at discharge: ongoing Equipment Loaned: none Education: self care, functional mobility, UE ex;s Positioning after tx: Pt supine in bed with all lines intact, alarm on, positioned for comfort, call light and bedside table in reach A: Response to treatment: progressing Recommend: Post-Acute Facility, Post Acute Facility- will tolerate 3 hours of therapy/day Recommendations were made on today's assessment. Additional recommendations will be based on patient's progress in therapy. P: Continue OT 2-5 times a week at bedside for: ADL Training, Functional Mobility Training, UE ROM/Strengthening, Patient Education, Cognition/Perception unless change in status or patient is discharged from the facility. Plan of Care developed, as indicated by OT assessment and patient's current status. Please refer to plan of care for updates on goals. Zone #: [id number] ICAL DIETICIAN * Care Plan - Melanie Beach Physical Therapist - 03/24/2021 10:49 AM CLINICAL DIETICIAN Problem: Physical Mobility, Impaired Goal: Mobility goal: Improve transfer ability by discharge Description: Patient will transfer supine to sit with minimal assistance and bed to chair with min assist x 1 Outcome: Progressing Flowsheets (Taken 03/24/2021 1049) Mon: X Pain Rating: Rest: 0 Pain Rating: Activity: 0 Pain Management Interventions: unnecessary movement avoided positioning Response to Interventions: content/relaxed Assistive Devices Used: Friction reducing device Present Activity: bed mobility dangled at bedside Physical Assist/Nonphysical Assist: w/ 2 person assist Total Treatment Time (min): 28 PT Current Discharge Recommendation: Post acute care Will tolerate 3 hours of therapy PT Recommended DME: To be determined PT Treatment Start Time: 1049 PT Treatment Stop Time: 1117 S: Patient agreeable to therapy. Supine in bed, Watkins catheter, IV infusing, telemetry. PT/OT co-treat to optimize functional mobility and progression of goals Pt excitedly proclaims, Muscles in my left leg are working! O: Cognition/ Perception: Alert and oriented x 4; pleasant and motivated Weight Bearing: No restrictions Precautions: Fall, No bending/lifting/twisting Exercises: Bilateral LE A-AROM, PROM x 10 reps, supine, sitting Type: Supine Exercises: heel slides, ankle pumps, gluteal sets, hamstring sets, quad sets, hip abduction/adduction, short arc quads Sitting exercises: Long arc quads AAROM RLE AAROM-PROM LLE LLE quadriceps activation noted with 1/5 to 2-/5 --UE, LE ROM performed to increase ROM, increase strength, increase muscular endurance, prevent loss of joint mobility to promote independence with functional mobility and gait. MOBILITY ASSESSMENT Bed Mobility: Log rolling right and left with Mod/MaxA x1, adequate UE strength to transition trunkhowever requires full assistance to advance hips and LE's Hovermat and pads re-positioned while rolling right and left Kim hose, desire bandages, and abdominal binder donned for improved BP management/control with functional mobility . Increased time to complete prior to mobilizing Log roll supine <> sitting EOB with MaxA x2 to advance BLE's off of bed and trunk into upright sitting posture Pt requires Mod/MaxA x1 initially to maintain sitting balance at EOB. With BUE support near hips ptdemonstrates improved tolerance to upright sitting posture and balance with Min/ModA x1. Maintains ~2-3 minutes prior to fatiguing and requiring increased trunk support. Educated on importance of increasing length of independent sitting balance in preparation for sliding board transfers Sits EOB ~12 minutes prior to fatiguing and with increased dizziness requiring return to supine. MaxA x2 sit to supine Noted to be very near having bowel movement at this time therefore lateral transfer to [place] chairdeferred at this time; RN present= BP as follows: Supine without compression garments: 103/67 (77) Supine with compression garments: 114/95 (103) Sitting EOB: 80/55 (62) Sitting EOB ~10 minutes: 114/61 (73) Supine: 111/60 (80) Equipment to be issued at discharge: DME: To be determined (03/24/21 1049) Education: Safety with functional mobility, importance of activity and exercise Positioning after tx: Patient positioned in bed with bed alarm on/patient educated on alarm, ., alllines intact, call light in reach, B UE/LEs elevated for comfort and maintained skin integrity, allneeds met, heels floated, RN aware A: Response to treatment: Progressing towards goals Recommend: Post acute care;Will tolerate 3 hours of therapy (03/24/21 1049) Recommendations were made on today's assessment. Additional recommendations will be based on patient's progress in therapy. P: Continue PT 7x/wk OD at bedside for Transfer training, Gait training, Exercises, Balance training, unless change in status or patient is discharged from the facility. Plan of Care developed, as indicated by PT assessment and patient's current status. Please refer to plan of care for updates on goals. Zone #: [id number] ICAL DIETICIAN * Care Plan - Roseanna Badillo RN - 03/23/2021 6:10 PM CST End of Shift Note: ?? Neuro:??Q4 neuro checks. A&Ox4. FC. PERRLA 3. BLE: decreased sensation & wiggles toes; R > L. Able to life right leg off bed. BUE: normal sensation; strong. Decreased sensation to umbilicus; improving. Tylenol given for muscle soreness. Muscle spasms controlled w/ zanaflex. Eunatremic; Na tabs given. Up in cardiac chair; tolerated well w/ no decrease in BP. ?? Resp:??RA. Clear lung sounds.? CV:??SB- NSR 50s- 90s. SBP 90s- 130s. Levo titrated for MAP goal of > 70. Levo @ 0.08.?2/2. Afebrile. SCDs off; lovenox given. 500ml bolus given. ?? GI:??general diet tolerating well. Small BM; passing flatus. ?? :??watkins w/ adequate output. ?? Skin:??undress/assess done by TOMMY Condon & TOMMY May. No new skin issues. Anterior & posterior neck incisions SAHIL. Posterior neck drain removal site C/D/I. CHG bath given. ?? Medication titrations/Procedures/Labs/Diagnostic Tests: ?? Patient Goals Not Met:??wean levo off ICAL DIETICIAN * Care Plan - Abel Dewitt, Monitor Worker - 03/23/2021 1:35 PM CST Problem: Physical Mobility, Impaired Goal: Mobility goal: Improve transfer ability by discharge Description: Patient will transfer to/from toilet and to/from tub/shower with modified independent. Outcome: Progressing Flowsheets Taken 03/23/2021 1000 by Roseanna Badillo RN Assistive Devices Screening: Transfer pad Present Activity: in bed Taken 03/23/2021 0400 by Fredy Looney RN Location: generalized Taken 03/23/2021 0135 by Abel Dewitt, Monitor Worker Sun: X Pain Rating: Rest: 0 Pain Rating: Activity: 0 Physical Assist/Nonphysical Assist: w/ 1 person assist Total Treatment Time (min): 25 Minute breakdown: Individual PT Treatment Start Time: 1300 PT Treatment Stop Time: 1335 Taken 03/22/2021 1340 by Melanie Beach Physical Therapist Pain Management Interventions: unnecessary movement avoided positioning Response to Interventions: content/relaxed Assistive Devices Used: Friction reducing device PT Current Discharge Recommendation: Post acute care Will tolerate 3 hours of therapy Taken 03/21/2021 1345 by Melanie Beach Physical Therapist Therapy Comments: 03/21: kim hose, desire wraps, abdominal binder, LLE stronger than RLE Taken 03/18/2021 1215 by Thais Andrews (Student), Student Therapist Therapy Plan of Care: 7x/wk OD S: Patient agreeable to therapy. Pt decline OOB or EOB at this time, pt report she did well yesterday and was extremly tired from sitting up. RN agreed to do cardiac chair mobility only. O: Cognition/ Perception: Alert and oriented x 3 to multiple commands Weight Bearing: none Precautions: Fall; spinal Skin Integrity: fair. Exercises: - pt is able to activity move RLE SQA, ankle movement and heel slide but limited due to weakness, pt preformed 3 set of 10 on each -- pt have some small quad muscle activation but no ROM. Pt was instructed to contract left quad throughout the day. Pt unable to hold muscle contraction but did well activation. MOBILITY ASSESSMENT Bed Mobility: max with bed mobility Transfers: assist pt to cardiac chair position. Pt blood was good and did not drop, RN report it was the pt best blood pressure reading. -- pt BLE was wrap with teds and desire wrap. BUE supported with pillows during cardiac chair position. Equipment to be issued at discharge: To be determined (03/22/21 1340) Education: pt educated on keeping moving RLE and continue LLE muscle contraction. Other: Patient tolerated paced activity program well, stable vital signs throughout session: A: Response to treatment: Progressing towards goals Recommend: Post acute care;Will tolerate 3 hours of therapy (03/22/21 1340) Recommendations were made on today's assessment. Additional recommendations will be based on patient's progress in therapy. P: Continue PT 7x/wk OD at bedside , at bedside for Transfer training, Gait training, Exercises, Balance training, unless change in status or patient is discharged from the facility. Plan of Care developed, as indicated by PT assessment and patient's current status. Please refer to plan of care for updates on goals. Zone #: [id number] On weekends--please call [phone] ICAL DIETICIAN * Care Plan - Roseanna Badillo, RN - 03/22/2021 6:52 PM CST End of Shift Note: ?? Neuro: Q4 neuro checks. A&Ox4. FC. PERRLA 3. BLE: decreased sensation & wiggles toes; R > L. BUE: normal sensation; strong. Decreased sensation to umbilicus; improving. Denies pain. Musclespasms controlled w/ zanaflex. Eunatremic; Na tabs given. Up to Joshi chair; tolerated well w/ no decrease in BP. ?? Resp: RA. Clear lung sounds. CV: SB- NSR 50s- 90s. SBP 110s- 170s. Levo titrated for MAP goal of > 70. Levo @ 0.08. 2/2. Afebrile. SCDs off; lovenox given. ?? GI: general diet tolerating well. 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 Lactulose & suppository given. ?? : watkins w/ adequate output. ?? Skin: undress/assess done by Roseanna RN & Yadira RN. No new skin issues. Anterior & posteriorneck incisions SAHIL. Posterior neck drain removal site C/D/I. CHG bath given. ?? Medication titrations/Procedures/Labs/Diagnostic Tests: ?? Patient Goals Not Met: wean levo off ICAL DIETICIAN * Care Plan - Na Ngo, Occupational Therapist - 03/22/2021 3:01 PM CLINICAL DIETICIAN Problem: Physical Mobility, Impaired Goal: Mobility goal: Improve transfer ability by discharge Description: Patient will transfer to/from toilet and to/from tub/shower with modified independent. Outcome: Progressing Problem: Self-Care Deficit Goal: Self care goal: Improve dressing ability by discharge Description: Patient will require modified independent with upper extremity and lower extremity dressing with adaptive equipment. Outcome: Progressing Flowsheets Taken 03/22/2021 1501 Sat: X Total Treatment Time (min): 40 Taken 03/22/2021 1340 Pain Rating: Rest: 0 Pain Rating: Activity: 0 Response to Interventions: content/relaxed OT Current Discharge Recommendation: ??? Post acute care ??? Will tolerate 3 hours of therapy OT Treatment Start Time: 1340 OT Treatment Stop Time: 1420 S: Patient agrees to therapy. Co-treat with PT O: Cognition/ Perception: Alert and oriented x 4 Skin Integrity: no concerns noted at visible skin areas Weight Bearing: No restrictions Precautions: Fall; FUNCTIONAL ACTIVITIES UE Dressing: max assist to tie and manage hospital gown during mobility LE Dressing: max assist to don socks and compression stockings prior to mobility Functional mobility: mod/max assist to log roll towards either side in bed to position hover mat. max assist x2 supine <> sit EOB for upper body support and LE management, verbal cues for log roll. Mod/max assist for static sitting balanced at EOB, with brief periods of close SBA, tolerated sitting for ~12 minutes. Pt. Shoulder shrugs while sitting EOB, x10 reps. Pt. Returned to supine due to fatigue. Max assist x2 to boost towards HOB. Dependent x2 for lateral transfer from bed to bartonchair with use of hover mat. Equipment Recommended at discharge: Ongoing Education: Plan of care, ADLs, safety Positioning after tx: Up in joshi chair, RN aware, alarm on, ROHO cushion, BUE/LEs elevated, call light/needs within reach Other: Pt. complains of dizziness during position change, BP typical during session. A: Response to treatment: Progressing towards goals Recommend: Post-Acute Facility, Post Acute Facility- will tolerate 3 hours of therapy/day Recommendations were made on today's assessment. Additional recommendations will be based on patient's progress in therapy. P: Continue 2-5x/wk at bedside for: ADL Training, Functional Mobility Training, UE ROM/Strengthening, Patient Education, Cognition/Perception unless change in status [facility] Plan of Care developed, as indicated by OT assessment and patient's current status. Please refer to plan of care for updates on goals. Zone #: [id number] ICAL DIETICIAN * Care Plan - Melanie Beach Physical Therapist - 03/22/2021 1:40 PM CLINICAL DIETICIAN Problem: Physical Mobility, Impaired Goal: Mobility goal: Improve transfer ability by discharge Description: Patient will transfer supine to sit with minimal assistance and bed to chair with min assist x 1 Outcome: Progressing Flowsheets (Taken 03/22/2021 1340) Sat: X Pain Rating: Rest: ( Soreness ) 0 Pain Management Interventions: ??? unnecessary movement avoided ??? positioning Response to Interventions: content/relaxed Assistive Devices Used: Friction reducing device Present Activity: ??? dangled at bedside ??? laterally transferred ??? bed mobility Physical Assist/Nonphysical Assist: w/ 2 person assist Total Treatment Time (min): 45 PT Current Discharge Recommendation: ??? Post acute care ??? Will tolerate 3 hours of therapy PT Recommended DME: To be determined PT Treatment Start Time: 1340 PT Treatment Stop Time: 1425 S: Patient agreeable to therapy. Co-treat with OT to optimize functional mobility and progression of goals O: Cognition/ Perception: Alert and oriented x 4; pleasant and motivated Weight Bearing: No restrictions Precautions: Fall, no bending/lifting/twisting Exercises: Bilateral LE A-AROM, PROM x 10 reps, supine Type: Supine Exercises: heel slides, ankle pumps, gluteal sets, quad sets, hip abduction/adduction,short arc quads, Straight leg raises RLE AAROM LLE PROM 0/5 activation noted --UE, LE ROM performed to increase ROM, increase strength, increase muscular endurance, prevent loss of joint mobility to promote independence with functional mobility and gait. MOBILITY ASSESSMENT Bed Mobility: Log rolling right and left with Mod/MaxA x1 for force production Hovermat placed while rolling right and left to utilize for lateral transfer from bed to Joshi chair in room Increased time required to don compression socks, desire bandages, and abdominal binder prior to PT treatment. Pt requires these garments for BP control secondary to nature of injury Supine to sitting EOB with log roll and MaxA x2 to advance BLE's off of bed and trunk into upright sitting posture at EOB MaxA x1 required posteriorly for trunk support to maintain neutral alignment. MaxA x2 to position LE's into 90/90 hips/knees posture Mod/MaxA x1 posteriorly to maintain neutral trunk alignment; strong verbal cues to upright posture and UE assistance to maintain sitting balance. Sits EOB with close SBA x10 seconds prior to fatiguing Sits EOB ~12 minutes this date prior to significant fatigue Transfers: Laterally transferred from bed to Joshi chair with Hovermat; dependent x2. Increased time to position pt in Joshi chair as this is first attempt at sitting in Joshi chair BP as follows: Supine: 130/61 (77) Sittin/71 (79) Sitting x10 minutes: 112/70 (83) Supine: 120/64 (82) Sitting in Joshi chair: 118/54 (73) Equipment to be issued at discharge: DME: To be determined (03/22/21 1340) Education: Safety with functional mobility, importance of activity and exercise Other: JULISAO with good inflation, RN agreeable to return to bed in ~1 hour and doff compression garments Positioning after tx: Patient positioned up in chair with chair alarm on/patient educated on alarm,all lines intact, call light in reach, B UE/LEs elevated for comfort and maintained skin integrity,family present, all needs met, heels floated, RN aware A: Response to treatment: Progressing towards goals Recommend: Post acute care;Will tolerate 3 hours of therapy (03/22/21 1340) Recommendations were made on today's assessment. Additional recommendations will be based on patient's progress in therapy. P: Continue PT 7x/wk OD at bedside for Transfer training, Gait training, Exercises, Balance training, unless change in status or patient is discharged from the facility. Plan of Care developed, as indicated by PT assessment and patient's current status. Please refer to plan of care for updates on goals. Zone #: [id number] ICAL DIETICIAN * Therapy Treatment - Brittany Cole Occupational Therapist - 03/21/2021 3:47 PM CST Occupational Therapy order received, chart reviewed, however pt politely declined after PT- feels tired. OT will attempt later as time allows. Thank you. Zone #: [id number] ICAL DIETICIAN * Care Plan - Melanie Beach Physical Therapist - 03/21/2021 1:45 PM CLINICAL DIETICIAN Problem: Physical Mobility, Impaired Goal: Mobility goal: Improve transfer ability by discharge Description: Patient will transfer supine to sit with minimal assistance and bed to chair with min assist x 1 Outcome: Progressing Flowsheets (Taken 03/21/2021 1345) Therapy Comments: 03/21: kim hose, desire wraps, abdominal binder, LLE stronger than RLE Fri: X Location: generalized Pain Rating: Rest: 5 Pain Rating: Activity: 6 Pain Management Interventions: ??? positioning ??? unnecessary movement avoided Response to Interventions: content/relaxed Assistive Devices Used: Friction reducing device Present Activity: ??? bed mobility ??? dangled at bedside Physical Assist/Nonphysical Assist: w/ 2 person assist Total Treatment Time (min): 40 PT Current Discharge Recommendation: Post acute care PT Recommended DME: To be determined PT Treatment Start Time: 1345 PT Treatment Stop Time: 1425 S: Patient agreeable to therapy. Eager to participate, reports muscle fatigue and soreness from yesterdays session O: Cognition/ Perception: Alert and oriented x 4, pleasant and motivated Weight Bearing: No restrictions Precautions: Fall, no bending/lifting/twisting Exercises: Bilateral LE A-AROM, PROM x 10 reps, supine Type: Supine Exercises: heel slides, ankle pumps, gluteal sets, hamstring sets, quad sets, hip abduction/adduction, short arc quads, Straight leg raises AAROM RLE, PROM LLE secondary to weakness --UE, LE ROM performed to increase ROM, increase strength, increase muscular endurance, prevent loss of joint mobility to promote independence with functional mobility and gait. MOBILITY ASSESSMENT Bed Mobility: Rolling right and left with Mod/MaxA x1 for force production and LE advancement secondary to weakness Thigh high compression socks, desire bandages, and abomindal binder donned while in supine with increased time to complete. Compression garments donned to assist with BP management as pt with orthostatic hypotension with EOB activity Supine <> sitting EOB with MaxA x2 to advance BLE's off of bed and trunk into upright sittingposture at EOB Pt requires MaxA x1 to position hips/knees into 90/90 sitting posture at EOB, MaxA x1 initially forposterior trunk support progressing to Roselyn x1 for balance and steadying. Sits EOB x5-6 minutes prior to bringing Francesco Stedy to bedside for standing trials Transfers: Requires full assistance to place LLE onto Francesco Stedy foot plate, MaxA x1 to advance BUE's onto grab bar of Francesco Stedy Sit <> stand attempted x2 within frame of Francesco Stedy with MaxA x2 with minimal gluteal clearance noted. Tolerates well however does fatigue with this activity Sit to supine with MaxA x2 MaxA x2 to boost to head of bed. Placed in cardiac chair posture with good tolerance BP as follows: Supine without compression garments: 99/56 (69) Supine with compression garments: 125/65 (77) Sitting EOB: 100/76 (85) Supine in bed: 120/67 (83) Equipment to be issued at discharge: DME: To be determined (03/21/21 7376) Education: Safety with functional mobility, importance of activity and exercise Positioning after tx: Patient positioned in bed with bed alarm on/patient educated on alarm, L'Nardboot donned, all lines intact, call light in reach, all needs met, heels floated, RN aware A: Response to treatment: Progressing towards goals Recommend: Post acute care (03/21/21 0405) Recommendations were made on today's assessment. Additional recommendations will be based on patient's progress in therapy. P: Continue PT 7x/wk OD at bedside for Transfer training, Gait training, Exercises, Balance training, unless change in status or patient is discharged from the facility. Plan of Care developed, as indicated by PT assessment and patient's current status. Please refer to plan of care for updates on goals. Zone #: [id number] ICAL DIETICIAN * Care Plan - Debbie Gabriel Physical Therapist - 03/20/2021 3:10 PM CLINICAL DIETICIAN Problem: Physical Mobility, Impaired Goal: Mobility goal: Improve transfer ability by discharge Description: Patient will transfer supine to sit with minimal assistance and bed to chair with min assist x 1 Outcome: Progressing Flowsheets (Taken 03/20/2021 1437) Jerilyn: X Location: neck back Pain Management Interventions: unnecessary movement avoided Response to Interventions: content/relaxed Total Treatment Time (min): 24 PT Current Discharge Recommendation: Post acute care Will tolerate 3 hours of therapy PT Recommended DME: To be determined PT Treatment Start Time: 1437 PT Treatment Stop Time: 1501 S: Patient agreeable to therapy. Co treatment with OT this session to maximize patient safety. O: Cognition/ Perception: Alert and oriented x 4 Weight Bearing: No Restrictions Listed Skin Integrity: Skin integrity appears intact Precautions: Fall, spinal precautions MOBILITY ASSESSMENT Bed Mobility: Supine to sit with max A x 2 one for trunk management and one for lower extremity management. Sits EOB for ~ 5 minutes with Mod A x 1 and Min A x 1 primarily for trunk control. Patient tends to lean towards L side and posteriorly when sitting EOB and requires assistance for upright positioning. Able to perform some independent trunk motion with verbal cueing, but fatigues quickly when sitting upright. Sit to supine with Max A x 2 for controlled descent into bed and management of trunk and lower extremities. Max x 2 required for boost up in bed. Compression garments donned prior to mobilizing. Blood Pressure Values During Session: Prior: 128/63 MAP 81 Initially when sitting EOB: 110/71 MAP 80 After 5 minutes sitting EOB: 72/63 MAP 68 - RN in room and increased dose of levophed Supine in bed following sitting EOB: 148/69 MAP 91 Sitting up in cardiac chair at end of session: 138/59 MAP 80 Equipment to be issued at discharge: DME: To be determined (03/20/211436) Education: Educated on PT plan of care and goals. Other: Patient tolerated session well, but continues to have drops in BP with upright positioning. Monitored closely throughout session. Positioning after tx: Upright in cardiac chair at 48 degrees with L-nard boot on L foot, desire wraps in place bilaterally, bed alarm on, call light within reach, and all needs met. A: Response to treatment: Progressing towards goals Recommend: Post acute care;Will tolerate 3 hours of therapy (03/20/211436) Recommendations were made on today's assessment. Additional recommendations will be based on patient's progress in therapy. P: Continue PT 7x/wk OD at bedside for Transfer training, Gait training, Exercises, Balance training, unless change in status or patient is discharged from the facility. Plan of Care developed, as indicated by PT assessment and patient's current status. Please refer to plan of care for updates on goals. Zone #: [id number] ICAL DIETICIAN * Care Plan - Brittany Cole Occupational Therapist - 03/20/2021 2:57 PM CLINICAL DIETICIAN Problem: Physical Mobility, Impaired Goal: Mobility goal: Improve transfer ability by discharge Description: Patient will transfer to/from toilet and to/from tub/shower with modified independent. Outcome: Progressing Problem: Self-Care Deficit Goal: Self care goal: Improve dressing ability by discharge Description: Patient will require modified independent with upper extremity and lower extremity dressing with adaptive equipment. Outcome: Progressing Flowsheets Taken 03/20/2021 1415 by Brittany Cole Occupational Therapist Thur: X Location: ??? neck ??? back Response to Interventions: resting quietly Total Treatment Time (min): 38 OT Current Discharge Recommendation: ??? Post acute care ??? Will tolerate 3 hours of therapy OT Treatment Start Time: 1415 OT Treatment Stop Time: 1453 Taken 03/20/2021 1100 by Jerson Hubbard RN Present Activity: ??? in bed ??? turned Taken 03/19/2021 1538 by Jocelin Mckeon, Occupational Therapist Therapy Comments: BLE DESIRE and compression Taken 03/18/2021 1609 by Jocelin Mckeon, Occupational Therapist Therapy Plan of Care: 2-5x/wk Taken 03/14/2021 0846 by Roseanna Umaña, Occupational Therapist Therapy Eval Date: 03/14/21 S: Patient agrees to therapy Pain rating: c/o neck and back pain with mobility/ movement Pain intervention: Unneccessary movement avoided, Repositioned for comfort, RN aware Response to pain intervention: Verbalized relief, Appeared content O: Cognition/ Perception: Alert and oriented x 4 Weight Bearing: no restrictions Precautions: Fall Skin Integrity: RN following Exercises: Bilateral UE AROM x 2-5 reps ---UE Exercises: Elbow flex/extension, pronation/supination, hand/wrist ROM. UE exercises to help improve pts strength, ROM and [place] with self care. FUNCTIONAL ACTIVITIES LE Dressing: max A to don KIM hose, max A/ dependent for DESIRE wraps to each leg, max A socks Functional mobility: max A of 2-3 for rolling and supine to sit at bedside, sitting with PT at trunk- posteriorly min to mod A+ OT blocking RLE with close SBA/ min A for ~5 minutes- with intermittentuse of UEs ( unilateral and bilateral- when BP is not measuring) for support, max A of 2 for sit tosupine, max A of 2-3 for boost in bed Equipment Recommended at discharge: To be determined (03/14/21 0846) Education: Pt was educated as to importance of OT and plan of care Positioning after tx: Pt was repositioned in bed with PT assist Other: no family at bedside A: Response to treatment: tolerated all mobility, self care and ROM Recommend: Post acute care;Will tolerate 3 hours of therapy (03/20/21 1415) Recommendations were made on today's assessment. Additional recommendations will be based on patient's progress in therapy. P: Continue OT 2-5x/wk at bedside for: ADL Training, Functional Mobility Training, UE ROM/Strengthening, Patient Education, Cognition/Perception unless change in status or patient is discharged from the facility. Plan of Care developed, as indicated by OT assessment and patient's current status. Please refer to plan of care for updates on goals. Zone #: [id number] On weekends--please call [phone] ICAL DIETICIAN * Care Plan - Jocelin Mckeon, Occupational Therapist - 03/19/2021 3:39 PM CLINICAL DIETICIAN Problem: Physical Mobility, Impaired Goal: Mobility goal: Improve transfer ability by discharge Description: Patient will transfer to/from toilet and to/from tub/shower with modified independent. Outcome: Progressing Problem: Self-Care Deficit Goal: Self care goal: Improve dressing ability by discharge Description: Patient will require modified independent with upper extremity and lower extremity dressing with adaptive equipment. Outcome: Progressing Flowsheets Taken 03/19/2021 1538 by Jocelin Mckeon, Occupational Therapist Therapy Comments: BLE DESIRE and compression Wed: X Pain Rating: Rest: 0 Pain Rating: Activity: 0 Pain Management Interventions: ??? positioning ??? relaxation Response to Interventions: content/relaxed Assistive Devices Used: Friction reducing device Present Activity: ??? dangled at bedside ??? in bed Physical Assist/Nonphysical Assist: w/ 2 person assist Total Treatment Time (min): 25 OT Treatment Start Time: 1438 OT Treatment Stop Time: 1503 Taken 03/18/2021 1609 by Jocelin Mckeon, Occupational Therapist OT Current Discharge Recommendation: Will tolerate 3 hours of therapy OT Recommended DME: To be determined S: Patient agrees to therapy. Per RN, patient appropriate for OT session at this time. O: Cognition/ Perception: Alert and oriented x4, followed 100% of commands throughout session Skin Integrity: All visible skin intact Weight Bearing: none listed Precautions: Fall Exercises: Bilateral UE AROM x 10 reps, use of yellow theraband, supine with HOB elevated, and completed sitting EOB ---UE Exercises: Shoulder flex/extension and abduction/adduction, elbow flex/extension, pronation/supination, hand/wrist ROM. UE exercises to help improve pts strength, ROM and [place] with selfcare. FUNCTIONAL ACTIVITIES UE Dressing: max assist tie gown LE Dressing: max assist don bilateral compression stockings and DESIRE bandages, socks, while long sitting in bed Functional mobility: supine<>sit max assist x2. Sits EOB total of 10 minutes with max assist x1 fluctuating to mod assist x1. x1 assist in front for working on weight shifting forwards/backwards x10 reps, side to side x10 reps with hand held to pull self forwards. Requires visual and tactile cues to sit in midline. Max assist x2 to boost up to HOB. BP supine with DESIRE wraps and compression stockings 139/71 BP sitting EOB with DESIRE wraps and compression stockings 104/67 BP once returned to supine 138/87 DESIRE wraps and compression stockings removed at end of session Equipment Recommended at discharge: tbd Education: OT plan of care Positioning after tx: Patient supine in bed with bed alarm on, all lines intact, B UE/LEs elevated for comfort and maintained skin integrity, personal items and call light within reach. Other: RN notified of patient position A: Response to treatment: Patient continues to progress towards goals in OT plan of care. Patient would benefit from continued OT services at this time to address safety awareness, ADLs, and functional mobility. Recommend: Post Acute Facility- will tolerate 3 hours of therapy/day Recommendations were made on today's assessment. Additional recommendations will be based on patient's progress in therapy. P: Continue OT 2-5 times a week at bedside for: ADL Training, Functional Mobility Training, UE ROM/Strengthening, Patient Education unless change in status or patient is discharged from the facility.Plan of Care developed, as indicated by OT assessment and patient's current status. Please refer to plan of care for updates on goals. Jocelin Mckeon, Occupational Therapist Zone #: [id number] ICAL DIETICIAN * Care Plan - Cookie Mathews Physical Therapist - 03/19/2021 3:22 PM CLINICAL DIETICIAN Problem: Physical Mobility, Impaired Goal: Mobility goal: Improve transfer ability by discharge Description: Patient will transfer supine to sit with minimal assistance and bed to chair with min assist x 1 Outcome: Progressing Flowsheets (Taken 03/19/2021 1513) Wed: X Pain Rating: Rest: 0 Pain Rating: Activity: 0 Pain Management Interventions: ??? unnecessary movement avoided ??? positioning Response to Interventions: ??? content/relaxed ??? resting quietly Present Activity: dangled at bedside Physical Assist/Nonphysical Assist: w/ 2 person assist Total Treatment Time (min): 23 PT Current Discharge Recommendation: ??? Post acute care ??? Will tolerate 3 hours of therapy PT Recommended DME: To be determined PT Treatment Start Time: 1440 PT Treatment Stop Time: 1512 S: Patient agreeable to therapy. Cooperative with good participation. O: Cognition/ Perception: Alert and oriented, follows simple commands Weight Bearing: No restrictions Skin Integrity: No issues noted Precautions: Fall Exercises: Bilateral LE A-AROM, PROM x 10 reps, supine Type: Supine Exercises: heel slides, ankle pumps, hip abduction/adduction, short arc quads, Straight leg raises --LE ROM performed to increase ROM, increase strength, increase muscular endurance, prevent loss ofjoint mobility to promote independence with functional mobility and gait. MOBILITY ASSESSMENT Bed Mobility: Rolling: Max Ax1, side lying to/from sit: Max AX2, repositioning supine: Max Ax2. Equipment to be issued at discharge: DME: To be determined (03/19/211512) Education: PT plan of care and goals, benefits and purpose of PT Other: Prior to mobilization, placed patient in KIM hose and desire wraps to knees, bilaterally. BP insupine: 139/71. Patient mobilized to edge of bed. Sit scoot at edge of bed: Max Ax1. BP at edge of bed: 104/67. Patient is able to sit edge of bed x10 minutes with assistance fluctuating from Mod Ax1to Max Ax1. While sitting edge of bed, worked with patient on sitting balance and posture, including weight shifts forward/backward and side/side. Requires increased tactile cues to achieve midline sitting. At end of 10 minutes, patient reports nausea and requests to return supine. BP 138/87. KIM hose and desire wraps removed. Positioning after tx: Overall, tolerated session well. Patient returned supine, turn team presents to mobilize patient , bilateral upper extremities and lower extremities elevated for comfort and maintained skin integrity, bed alarm on with all lines intact; call light in reach. RN aware A: Response to treatment: Progressing towards goals Recommend: Post acute care;Will tolerate 3 hours of therapy (03/19/211512) Recommendations were made on today's assessment. Additional recommendations will be based on patient's progress in therapy. P: Continue PT 2-5x/wk at bedside for Transfer training, Gait training, Exercises, Balance training, unless change in status or patient is discharged from the facility. Plan of Care developed, as indicated by PT assessment and patient's current status. Please refer to plan of care for updates on goals. Zone #: [id number] ICAL DIETICIAN * Care Plan - Yulia Strange RN - 03/19/2021 9:27 AM CST Care management consult received for assistance with discharge planning. Patient has been assessed.Per therapy notes patient would benefit from acute rehab - referral sent to [facility]. Care management will continue to follow. [place] [phone] Problem: Discharge Planning Goal: Identify discharge needs upon admission and through discharge Description: Outcome: Progressing ICAL DIETICIAN * Care Plan - Roseanna Badillo RN - 03/18/2021 5:55 PM CST End of Shift Note: Neuro: Q4 neuro checks. A&Ox4. FC. PERRLA 3. BLE: decreased sensation & wiggles toes; R > L. BUE: normal sensation; strong. Decreased sensation to umbilicus. Sensation improving today. Denies pain. Muscle spasms controlled w/ zanaflex. Dangled @ bedside w/ max assist. Eunatremic. Resp: RA. Clear lung sounds. CV: SB- NSR 40s- 80s. SBP 110s- 170s. Levo titrated for MAP goal of 80- 100. Levo stopped @ 1800. 2/2. Afebrile. SCDs on. lovenox restarting tonight. GI: general diet tolerating well. 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 : watkins w/ adequate output. Skin: undress/assess done by TOMMY Condon & TOMMY Hernandez. No new skin issues. 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 Posterior neck drain removal site C/D/I. CHG bath given. Medication titrations/Procedures/Labs/Diagnostic Tests: Patient Goals Not Met: wean levo off ICAL DIETICIAN * Care Plan - Jocelin Mckeon, Occupational Therapist - 03/18/2021 4:10 PM CLINICAL DIETICIAN Problem: Physical Mobility, Impaired Goal: Mobility goal: Improve transfer ability by discharge Description: Patient will transfer to/from toilet and to/from tub/shower with modified independent. Outcome: Progressing Problem: Self-Care Deficit Goal: Self care goal: Improve dressing ability by discharge Description: Patient will require modified independent with upper extremity and lower extremity dressing with adaptive equipment. Outcome: Progressing Flowsheets Taken 03/18/2021 1609 by Jocelin Mckeon, Occupational Therapist Therapy Plan of Care: 2-5x/wk Therapy Comments: watch BP Tue: X Pain Rating: Rest: 0 Pain Rating: Activity: 0 Pain Management Interventions: ??? positioning ??? relaxation Response to Interventions: content/relaxed Present Activity: in bed Physical Assist/Nonphysical Assist: w/ 1 person assist Total Treatment Time (min): 40 OT Current Discharge Recommendation: Will tolerate 3 hours of therapy OT Treatment Start Time: 1528 OT Treatment Stop Time: 1608 OT Recommended DME: To be determined S: Patient agrees to therapy. Per RN, patient appropriate for OT session at this time. Patient states she is happy that her BLE sensation is improving. Excited to work with therapy. O: Cognition/ Perception: Alert and oriented x4, followed 100% of commands throughout session Skin Integrity: All visible skin intact Weight Bearing: none Precautions: Fall Exercises: Bilateral UE AROM x 10-15 reps; bilateral LE AAROM, PROM x 10 reps, supine in cardiac chair positioning ---UE Exercises: Shoulder flex/extension and abduction/adduction, elbow flex/extension, pronation/supination, hand/wrist ROM. UE exercises to help improve pts strength, ROM and [place] with selfcare. FUNCTIONAL ACTIVITIES LE Dressing: max assist don and doff socks Functional mobility: positioned pt in cardiac chair in bed x1 assist. EOB not attempted this date as patient's RN and other assistance are not available at this time and d/t safety with cervical necksupport, deferred at this time. BP: 163/78 (103) start, in supine 170/74 (103) after exercises, supine 117/75 (84) cardiac chair in bed 146/82 (100) 10 minutes in cardiac chair Equipment Recommended at discharge: tbd Education: OT plan of care Positioning after tx: Patient supine in bed with bed alarm on, all lines intact, B UE/LEs elevated for comfort and maintained skin integrity, personal items and call light within reach. Other: RN notified of patient position; increased time spent to allow for positional changes and BPreadings A: Response to treatment: Patient continues to progress towards goals in OT plan of care. Patient would benefit from continued OT services at this time to address safety awareness, ADLs, and functional mobility. Recommend: Post Acute Facility- will tolerate 3 hours of therapy/day Recommendations were made on today's assessment. Additional recommendations will be based on patient's progress in therapy. P: Continue OT 2-5 times a week at bedside for: ADL Training, Functional Mobility Training, UE ROM/Strengthening, Patient Education unless change in status or patient is discharged from the facility.Plan of Care developed, as indicated by OT assessment and patient's current status. Please refer to plan of care for updates on goals. Jocelin Mckeon, Occupational Therapist Zone #: [id number] ICAL DIETICIAN * Care Plan - Thais Andrews (Student), Student Therapist - 03/18/2021 12:10 PM CST Problem: Physical Mobility, Impaired Goal: Mobility goal: Improve transfer ability by discharge Description: Patient will transfer supine to sit with minimal assistance and bed to chair with min assist x 1 Outcome: Progressing Flowsheets Taken 03/18/2021 1215 by Thais Andrews (Student), Student Therapist Therapy Plan of Care: 7x/wk OD Present Activity: bed mobility dangled at bedside Taken 03/18/2021 1136 by Thais Andrews (Student), Student Therapist Therapy Comments: 03/18: sat EOB max x2 monitor pressures Tue: X Total Treatment Time (min): 34 PT Current Discharge Recommendation: Post acute care Will tolerate 3 hours of therapy PT Recommended DME: To be determined PT Treatment Start Time: 1136 PT Treatment Stop Time: 1210 Taken 03/18/2021 1000 by Roseanna Badillo RN Assistive Devices Screening: Transfer pad Physical Assist/Nonphysical Assist: w/ 2 person assist Taken 03/17/2021 1152 by Thais Andrews (Student), Student Therapist Assistive Devices Used: Friction reducing device Taken 03/14/2021 1058 by Sanya Grant, Physical Therapist Therapy Eval Date: 03/14/21 S: Patient agreeable to therapy. Pt excited and motivated to participate in therapy. Pt's daughter present for session. O: Cognition/ Perception: Alert and oriented. Very pleasant and motivated to participate. Weight Bearing: No restrictions Skin Integrity: No skin breakdown noted Precautions: Fall, Exercises: Bilateral LE A-AROM, PROM x 10 reps, supine Type: Supine Exercises: heel slides, ankle pumps, quad sets, hip abduction/adduction, short arc quads, Straight leg raises --LE ROM performed to increase strength, increase muscular endurance, prevent loss of joint mobility to promote independence with functional mobility and gait. MOBILITY ASSESSMENT Bed Mobility: Log roll supine <> sit EOB with max A x2 for BLE to EOB and trunk to midline, providing support for c-spine. Sat EOB ~8 min with max Ax1 posterior support and manual traction to cervical spine with c/o fatigue holding head upright. BP decreased when measured in sitting (below MAP goal >80mmHg), RN present for this portion of session while sitting EOB and increased levophed from .04 to .06. Pt log rolled to L and R with mod Ax1 for positioning of pillows and to replace tawny pads. Boostedto HOB max A x2. BP (MAP): 127/76 (85): pre-activity 123/68 (82): post supine exercises 82/64 (71): sitting EOB 87/71 (77): returned to supine 123/54 (73): after bed mobility and positioning Other: Donned L-nard boot to L foot, with wearing schedule confirmed with RN and pt. Ordered compression garments to room for BP management on future activity trials. Equipment to be issued at discharge: DME: To be determined (03/18/21 1136) Education: PT POC, EOB Positioning after tx: Patient positioned in bed with bed alarm on/patient educated on alarm, all lines intact, call light in reach, B UE/LEs elevated for comfort and maintained skin integrity, familypresent, all needs met, heels floated, RN aware A: Response to treatment: Progressing towards goals, Assessment Ongoing Recommend: Post acute care;Will tolerate 3 hours of therapy (03/18/21 1136) Recommendations were made on today's assessment. Additional recommendations will be based on patient's progress in therapy. P: Continue PT 7x/wk OD at bedside for Transfer training, Gait training, Exercises, Balance training, unless change in status or patient is discharged from the facility. Plan of Care developed, as indicated by PT assessment and patient's current status. Please refer to plan of care for updates on goals. Zone #: [id number] ICAL DIETICIAN Associated attestation - Melanie Hanley Physical Therapist - 03/18/2021 3:50 PM CLINICAL DIETICIAN PT present for treatment session. I have reviewed & agree with all documentation entered by Thais Andrews, MY. Melanie Beach, Physical Therapist, DPT * Care Plan - Candelaria Syed RN - 03/17/2021 6:29 PM CST Shift Note: New: Myelogram this afternoon with no new findings. Fem line removed and L subclavian inserted at bedside. Neuro: Q4 neuro checks. A&Ox4. PERRLA 3. FC. Moves BUE--sensation intact w/ no drifts. Decreased sensation in BLE. Moves RLE planter/dorsiflexion intact. Limited movement to LLE but is able to wiggle toes. Reports frequent muscle spasms to BLE but does not report pain. Q8 BMPs to monitor Na. Ptis eunatremic--2% off. Respiratory: Room air. Clear. CV: NSR to sinus carlos in the 60-80s. Dropped down into the 40s in IR but returned to baseline post-procedure. SBP usually in the 120-160s. SBPs dropped into the 80s when pt got up to work with PT today. Levo titrated to maintain MAP goals 80-100. Midodrine give scheduled Q4. GI/: Adequate UOP per watkins. Tolerating regular diet with good appetite. -BM. Skin: Undress and assess performed by Yadira RN and Roseanna RN. ICAL DIETICIAN * Therapy Treatment - Jocelin Mckeon, Occupational Therapist - 03/17/2021 2:55 PM CST 03/17/21 OT: Pt off floor for testing, will continue to follow and re attempt at next available time. ICAL DIETICIAN * Treatment Plan - Nannette Brady I., RT - 03/17/2021 1:13 PM CST ?[facility] Radiology Medication Protocol [facility] Approved by: [facility] - Medical Executive Committee Approval Date: 05/06/2020 I ORDERS ARE ENTERED ???PER PROTOCOL?? Enter the protocol in the patient's electronic health record using [employer]: .radiologymedicationprotocol Communication Orders: o If required to complete procedure, chemical engineering technologist or nurse may place indwelling watkins catheter. Medication Orders: o Sodium chloride 0.9% (normal saline) flush 10 mLs PRN for saline lock or medication administration. o For respiratory distress, initiate oxygen and/or increase O2 to maintain saturation greater than 90%. o For all invasive procedures: Obtain Lidocaine 1% for intra-procedure administration. If Lidocaine1% unavailable, may substitute Lidocaine 2%. DIAGNOSTIC RADIOLOGY CONTRAST PROTOCOLS ADULTS: PROCEDURE DOSAGE ARTHROGRAMS (shoulder, wrist, hip, knee, TMJ) Iopamidol (ISOVUE-300) 61% Radiologist to administer up to 30mL, intraarticularly, one time. If MRI ordered, add 0.15mLGadobenate Dimeglumine (Multihance) to the iopamidol and mix well. (If more than 30mL is desired, radiologist may request that 50mL of iopadmidol (ISOVUE-300) 61% be mixed with 0.25mL of gadobenate dimeglumine (Multihance) BARIUM ENEMA (with or without AIR CONTRAST) Barium Sulfate (Liquid Polibar Plus) 96% (w/w) [id number] mixed with 1500mL of water, radiologist to administer up to 2000mL rectally, one time only BARIUM ENEMA HYPAQUE Iopamidol (ISOVUE-250) 51%, 800mL + CYSTOGRAFIN 30%, 900mL, radiologist to administer up to 1700 mL of combined fluids, rectally, one time. Radiologist may repeat if needed to complete procedure. CYSTOGRAM CYSTOGRAFIN 30%, Radiologist to administer up to 300mL, instill into the bladder, one time. ESOPHAGUS BARIUM SWALLOW Radiologist to request one or more of the following products: Barium Sulfate (E-Z-HD) 98% oral suspension 340g = 135mL, orally, one time. Barium Sulfate (E-Z-PAQUE) 96% (w/w) oral suspension 176g = 240mL, orally, one time. ESOPHAGUS BARIUM SWALLOW HYPAQUE Iohexol (OMNIPAQUE) 350mg/mL oral solution, radiologist to administer up to 50mL, orally, one time MODIFIED BARIUM SWALLOW May use one or more of the following products, administered by Speech Language Pathologist: Barium tablet (E-Z Disk) 13mm = 700mg, up to one tablet, orally, one time. Barium Sulfate (E-Z-PAQUE) 96% oral (w/w) oral suspension up to 176g, orally, one time. May mix with food or liquid to achieve desired viscosity Barium Sulfate (E-Z-PASTE) 60% oral cream, up to 45g, orally, one time. May mix with food or liquidto achieve desired viscosity. HYSTEROSALPINGOGRAM Iopamidol (ISOVUE-300) 61%, provider to administer up to 30ml, vaginally, one time only INTRAVENOUS PYELOGRAM Iopamidol (ISOVUE-370) 76%, administer up to 85mL, intravenous, one time only. Volume of contrast injected determined by radiologist. MYELOGRAMS: CERVICAL Iopamidol (ISOVUE-M 300), 61% radiologist to administer up to 15mL, intrathecal, one time only THORACIC Iopamidol (ISOVUE-M 200) 41%, radiologist to administer up to 20mL, intrathecal, one time only LUMBAR Iopamidol (ISOVUE-M 200) 41%, radiologist to administer up to 20mL, intrathecal, one time only SMALL BOWEL SERIES Barium Sulfate (E-Z-Paque) 96% (w/w) oral suspension (Thin Barium), up to 352g =480mL orally, one time only. SMALL BOWEL SERIES HYPAQUE Iohexol (OMNIPAQUE) 350 mg/mL oral solution, 200ml, orally, one time only URETHROCYSTOGRAM VOIDING and RETROGRADE URETHROGRAM Diatraizoate meglumine (Cystografin) 30%, up to 300ml, instill into the bladder, one time only UPPER GI Radiologist to request one or more of the following products: Barium Sulfate (E-Z-HD) 98% oral suspension 340g = 135mL, orally, one time only. Barium Sulfate (E-Z-PAQUE) 96% (w/w) oral suspension 176g= 240mL, orally, one time only. UPPER GI HYPAQUE Iohexol (OMNIPAQUE) 350 mg/mL oral solution, 200mL, orally, one time only UPPER GI AIR CONTRAST Radiologist to request one or more of the following products: Barium Sulfate (E-Z-HD) 98% oral suspension 340g, orally, one time only. Barium Sulfate (E-Z-PAQUE) 96% (w/w) oral suspension 176g, orally, one time. EZ Gas crystals, one packet, orally, one time only. PORT CONTRAST INJECTION WITH FLUORO Iopamidol (Isovue-300) 61%, radiologist to administer up to 50ml, intravenous, one time only PEDIATRICS: For all procedures with an oral route, preferred route is oral; nasoenteric route may also be used.If needed, radiologist may place a nasoenteric tube to facilitate contrast administration. PROCEDURE DOSAGE UPPER GI- Under Age 5 Barium Sulfate (E-Z-Paque) 96% (w/w) oral suspension (Thin Barium), up to 176g = 240mL orally, one time only. UPPER GI HYPAQUE- Under Age 5 Radiologist to request one or more of the following products and select dose required: Iohexol (Omnipaque) 350 mg/mL oral solution, orally, one time only Iohexol (Omnipaque) 180 mg/mL oral solution, orally, one time only UPPER GI- Above Age 5 Radiologist to request one or more of the following products: Barium Sulfate (E-Z-HD) 98% oral suspension(Thick Barium), up to 340g = 135mL orally, one time only Barium Sulfate(E-Z-Paque) 96% (w/w) oral suspension (Thin Barium), up to 176g = 240mL orally, one time only EZ Gas Packet, 4g (one packet) orally, one time only. UPPER GI HYPAQUE- Above Age 5 Iohexol (Omnipaque) 350 mg/mL oral solution, up to 200mL orally, one time only. SMALL BOWEL SERIES- Under Age 5 Barium Sulfate (E-Z-Paque) 96% (w/w) oral suspension (Thin Barium),up to 176g = 240mL orally, one time only SMALL BOWEL SERIES HYPAQUE- Under Age 5 Radiologist to request one or more of the following products and select dose required: Iohexol (Omnipaque) 350 mg/mL oral solution, orally, one time only Iohexol (Omnipaque) 180 mg/mL oral solution, orally, one time only Radiologist to choose dose for each product. SMALL BOWEL SERIES- Above Age 5 Radiologist to request one or more of the following products: Barium Sulfate (E-Z-Paque) 96% (w/w) oral suspension (Thin Barium), up to 352g = 480mL orally, one time only. Iohexol (Omnipaque) 350mg/mL, up to 200mL orally, one time only ESOPHAGUS BARIUM SWALLOW- Under Age 5 Barium Sulfate (E-Z-Paque) 96% (w/w) oral suspension (Thin Barium), up to 176g = 240mL orally, one time only ESOPHAGUS BARIUM SWALLOW HYPAQUE-Under Age 5 Radiologist to request one or more of the following products and select dose required: Iohexol (Omnipaque) 350 mg/mL oral solution, orally, one time only Iohexol (Omnipaque) 180 mg/mL oral solution, orally, one time only ESOPHAGUS BARIUM SWALLOW- Above Age 5 Radiologist to request one or more of the following products: Barium Sulfate (E-Z-HD) 98% oral suspension (Thick Barium), up to 340g = 135mL orally, one time only. Barium Sulfate (E-Z-Paque) 96% (w/w) oral suspension (Thin Barium), up to 176g = 240mL orally, one time only. EZ Gas Packet, 4g = 1 packet orally, one time only MODIFIED BARIUM SWALLOW- Above Age 5 May use one or more of the following products, administered bySpeech Language Pathologist: Barium tablet (E-Z Disk) 700mg = 13mm, up to one tablet, orally, one time. Barium Sulfate 96% oral suspension (E-Z-PAQUE), up to 176g, orally, one time. May mix with food or liquid to achieve desired viscosity. Barium Sulfate (E-Z-PASTE) 60%oral cream, up to 45g, orally, one time. May mix with food or liquid to achieve desired viscosity. MODIFIED BARIUM SWALLOW-Under age 5 May use one or more of the following products, administered by Speech Language Pathologist: Barium Sulfate 96% oral suspension (E-Z-PAQUE), up to 176g, orally, one time. May mix with food or liquid to achieve desired viscosity. Barium Sulfate (E-Z-PASTE) 60% oral cream, up to 45g, orally, one time. May mix with food or liquidto achieve desired viscosity. SPEECH VIDEO FLOUROSCOPY Administered by Speech Language Pathologist: Barium Sulfate (E-Z-HD) 98% , 1 mL in each nostril, intranasally, one time only. INTRAVENOUS PYELOGRAM Iopamidol (ISOVUE-370) 76%, administer up to 85mL, intravenous, one time only. Volume of contrast injected determined by radiologist. URETHROCYSTOGRAM VOIDING Iothalamate Meglumine (Cystografin Dilute) 18%, up to 300mL, instill into the bladder, one time only OR Iothalamate Meglumine (Cysto Conray II Urethral) 17.2%, up to 250mL, instill into the bladder, one time only BARIUM ENEMA HYPAQUE Iothalamate Meglumine (Cystographin Dilute) 18%, 300 mL, radiologist to administer up to 750mL rectally, one time. Radiologist may repeat if needed to complete procedure. OR Iothalamate Meglumine (Cysto Conray II Urethral) 17.2%, 250 mL, radiologist to administer up to 750mL rectally, one time. Radiologist may repeat if needed to complete procedure. BARIUM ENEMA (with or without AIR CONTRAST) Barium Sulfate (Liquid Polibar Plus) 96% (w/w) 454g =500mL mixed with 1500mL of water, radiologist to administer up to 2000mL of mixture rectally, one timeonly ICAL DIETICIAN * Care Plan - Thais Andrews (Student), Student Therapist - 03/17/2021 11:54 AM CST Problem: Physical Mobility, Impaired Goal: Mobility goal: Improve transfer ability by discharge Description: Patient will transfer supine to sit with minimal assistance and bed to chair with min assist x 1 Outcome: Progressing Flowsheets Taken 03/17/2021 1152 by Thais Andrews (Student), Student Therapist Response to Interventions: content/relaxed Assistive Devices Used: Friction reducing device Present Activity: bed mobility in bed Physical Assist/Nonphysical Assist: w/ 2 person assist PT Current Discharge Recommendation: Post acute care Will tolerate 3 hours of therapy Taken 03/17/2021 1026 by Thais Andrews (Student), Student Therapist Therapy Comments: 03/17: MAP >80 unable to assess EOB d/t decreased MAP Mon: X Total Treatment Time (min): 30 PT Treatment Start Time: 1026 PT Treatment Stop Time: 1056 Taken 03/17/2021 0800 by Candelaria Syed, RN Assistive Devices Screening: Transfer pad Taken 03/14/2021 1058 by Sanya Grant, Physical Therapist Therapy Plan of Care: 7x/wk OD once cleared for OOB Therapy Eval Date: 03/14/21 PT Recommended DME: To be determined S: Patient agreeable to therapy. Per RN, pt appropriate for therapy. O: Cognition/ Perception: Alert and oriented. Pleasant and conversational. Motivated to return to PLOF. Aware and asks questions about current medical status and plan of care. Weight Bearing: No restrictions listed Skin Integrity: No skin breakdown noted Precautions: Fall Exercises: Bilateral LE A-AROM, PROM x 10 reps, supine Type: Supine Exercises: heel slides, ankle pumps, gluteal sets, quad sets, Straight leg raises --LE ROM performed to increase strength, increase muscular endurance, prevent loss of joint mobility to promote independence with functional mobility and gait. Sensation: Pt's light touch sensation intact BLEs. Reports pins and needles starting at nipple line. Sensation feels different but equal bilaterally throughout abdomen. LLE sensation feels like more/can feel it better than RLE throughout entire extremity. Able to localize touch throughout trunk and all extremities. Proprioception: Kinesthesia and joint position sense intact BLEs. Pt 4/4 able to describe L great toe position in space. Muscle strength: Pt actively able to perform R LE glute set, quad set, DF to -5d from neutral. LLE actively able to wiggle toes 2 & 4. Limited muscle activation LLE. MOBILITY ASSESSMENT Bed Mobility: After PROM and sensation assessment with HOB elevated ~40d, pt's MAP was at 70 mmHg. RN notified and present for remainder of session. After monitoring BP with HOB in different positions, further mobility deferred due to MAP below MAP goal of >80. BP: 111/59 (77)- pre-activity 104/56 (70)- after PROM with HOB ~40d 109/61 (74)- HOB returned to supine 100/53 (68)- HOB elevated to ~50d 89/63 (69)- After 5 min with HOB ~50d 101/47 (63)- Supine Education: Pt and family member educated on PROM on BLEs to increased muscular endurance and prevent loss of joint mobility. L-nard boot ordered to room and pt/nurse educated on wearing schedule and purpose of L-nard boot. Pt transferred rooms prior to issuing L-nard boot. Will attempt to deliver next session. Pt inquiring about rehab after d/c from hospital. Answered questions about PT POC for rehab, how much therapy she would receive per day, and potential length of stay. Pt educated on why PT deferred further mobility d/t MAP pressures below goal. Pt discouraged bc shewanted to begin mobilization. Encouraged to continue to move BLEs as able to prepare for mobilization once medically stable. Equipment to be issued at discharge: DME: To be determined (03/14/21 105) Positioning after tx: Patient positioned in bed with bed alarm on/patient educated on alarm, all lines intact, call light in reach, B UE/LEs elevated for comfort and maintained skin integrity, familypresent, all needs met, heels floated, RN aware A: Response to treatment: Progressing towards goals, Assessment Ongoing Recommend: Post acute care;Will tolerate 3 hours of therapy (03/17/21 1152) Recommendations were made on today's assessment. Additional recommendations will be based on patient's progress in therapy. P: Continue PT 7x/wk OD at bedside for Transfer training, Gait training, Exercises, Balance training, unless change in status or patient is discharged from the facility. Plan of Care developed, as indicated by PT assessment and patient's current status. Please refer to plan of care for updates on goals. Zone #: [id number] ICAL DIETICIAN Associated attestation - Melanie Hanley Physical Therapist - 03/17/2021 4:18 PM CLINICAL DIETICIAN PT present for treatment session. I have reviewed & agree with all documentation entered by Thais Andrews, MY. Melanie Beach, Physical Therapist, DPT * Care Plan - Soheila Linares RN - 03/16/2021 6:56 PM CST End of Shift Note: Plan for PICC line and myelogram tomorrow. Neuro: Q4 neuro. A&OX4. PERRLA 4-5 Follows commands. Moves all extremities. LUE pushes/pulls, no ting/numbness. LLE dec sensation, wiggles toes, weak plantar/dorsiflexion. RLE strong plantar/dorsiflexion. C/o pain in back, PRN dilaudid given x1. C/o muscle spasms in BLE, PRN zenaflex given x2. 2% @ 75, Q8 BMPs Resp: Room air, clear. CV: SB-NSR. SBP 130-160s. Map goal 80-100. A. Febrile. 2/2 pulses. SCDs. Sub-q lovenox. GI/: Regular diet, ACHS. Watkins >adequate UOP. BM LEARNING CENTER COORDINATOR. SKIN: Undress and Assess completed by: TOMMY Parnell and TOMMY Dominguez Anterior surgical incision-open to air, scabbed Posterior surgical incision dressing- C/D/I Cervical drain dressing- C/D/I. 40 serosang mL out. No pressure related skin breakdown noted. ACCESS 20 L arm R triple fem R ART ICAL DIETICIAN * Care Plan - Yudy Mao RN - 03/16/2021 5:10 PM CST Care Management Initial Assessment Initial Discharge Planning Assessment completed. Discussed Care Management's role and Discharge planning. Discharge Plan: TBD pending progress with therapy. Home with HHC vs post-acute rehab Patient Discharge Planning Goal: Prefers home with HHC to sister's house in [place] as originally planned and will consider IP Rehab. Doesn't like idea of shelter facility. Patient will potentially discharge to a SNF/NH? Yes, [place] If patient will go to SNF/NH at discharge, consider if a LEVEL II PASRR screening should be started for: Mental Health (prior BH admission or problems in level of functioning related to MH diagnosis): no Developmental Delay diagnosis: no Related Condition (examples: seizure disorder, cerebral palsy, spina bifida, autism) prior to age 22: no Any YES answer above requires a LEVEL II PASRR screening. Care Management visited with: patient and son via in person. Prior to admission, patient resides at: own home. One-level with 1-2 ABHI. Walk- in shower with builtin shower seat. Prior to admission, living arrangements: lives alone. Prior to admission, patient's functional level:independent; uses N/A for ADLs; needs assistance with iADLs: N/A Prior to admission, the patient has the following DME? Yes shower [id number]. Services in the home: None Receives hemodialysis? No Emergency contact(s): Extended Emergency Contact Information Primary Emergency Contact: Oneyda Tanner Mobile Relation: Son Secondary Emergency Contact: DINA GARCIA [facility] Mobile Relation: Sister Insurance coverage verified: Payor: MEDICARE / Plan: MEDICARE PART A AND B / Product Type: Medicare/ Prescription coverage: yes Preferred Pharmacy verified: [id number] - [place], [place] - [address] [id number] - [place], [place] - [address] [facility] [address] [facility] [address] [facility] [address] Employment Status: retired Has VA Benefits: no PCP verified as: Huang Alonso MD Patient has not had a stay at an acute care hospital in the last 30 days. Recent Falls?: Last Known Fall: No falls Patient has a [email or web address] account: yes Patient has a smart device: Yes Patient's mobile number verified: Yes. Patient's number: Telephone Information: Patient is able to receive text messages: Yes Patient has access to the internet: Yes Plan for transportation at discharge: TBD pending progress and discharge disposition. Comments: Fully COVID vaccinated and had booster on 02/14/21. We discussed all possible discharge scenarios including IP Rehab hospital, SNF and home with home health care. Patient does not like idea of SNF. Care Management contact information provided. Care Management will continue to follow and assist asneeded. Yudy Mao RN, MSN [employer] [phone] Problem: Discharge Planning Goal: Identify discharge needs upon admission and through discharge Description: Outcome: Progressing ICAL DIETICIAN * Care Plan - Keiry Osorio, Physical Therapist - 03/15/2021 12:23 PM CLINICAL DIETICIAN Problem: Physical Mobility, Impaired Goal: Mobility goal: Improve transfer ability by discharge Description: Patient will transfer supine to sit with minimal assistance and bed to chair with min assist x 1 Outcome: Progressing Flowsheets Taken 03/15/2021 1220 by Keiry Osorio, Physical Therapist Sat: X Therapy Plan of Care: 10 Pain Rating: Activity: 0 PT Treatment Start Time: 1210 PT Treatment Stop Time: 1220 Taken 03/14/2021 1058 by Sanya Grant, Physical Therapist PT Current Discharge Recommendation: To be determined PT Recommended DME: To be determined S: Patient agreeable to therapy. O: Cognition/ Perception: Alert and oriented x4 Weight Bearing: no limits Skin Integrity: unremarkable Precautions: Fall, assume no bend/lift/twist Exercises: Bilateral LE AROM, A-AROM, PROM x 5-10 reps, supine Type: ankle pumps, glut sets, quad sets, heel slides, hip abd slides. Pt can perform AROM on R LE--but AROM absent on L LE. Pt says that PROM to L LE feels good and she can feel me touching her--but her skin feels different on that side, like she's been to the dentist. --LE ROM performed to increase ROM, increase strength, increase muscular endurance, prevent loss ofjoint mobility to promote independence with functional mobility and gait. MOBILITY ASSESSMENT Bed Mobility: no repositioning needed at this time Transfers: Per RN, pt can try and get OOB with PT. Pt motivated to work with PT--but requests to wait until her R groin lines are removed and replaced with central line (hopefully later today or earlier tomorrow)--and PT in agreement, due to safety concerns, especially since AROM is absent in L LE at this time and therefore any EOB/OOB activity will likely require maxA x1-2. RN aware and agrees with plan. Equipment to be issued at discharge: DME: To be determined (03/14/211057) per progress Education: PT plan of care Positioning after tx: Tolerated session well. Patient remains supine, positioned as found, bilateral upper extremities and lower extremities elevated for comfort and maintained skin integrity, bed alarm on with all lines intact; call light in reach. RN aware. A: Response to treatment: Progressing towards goals Recommend: To be determined (03/14/211057) Recommendations were made on today's assessment. Additional recommendations will be based on patient's progress in therapy. P: Continue PT 7x/wk OD at bedside for Transfer training, Gait training, Exercises, Balance training, unless change in status or patient is discharged from the facility. Plan of Care developed, as indicated by PT assessment and patient's current status. Please refer to plan of care for updates on goals. Zone #: [phone] ICAL DIETICIAN * Therapy Evaluation - Sanya Grant, Physical Therapist - 03/14/2021 11:15 AM CST Physical Therapy order received, chart reviewed, and evaluation completed. Please see full evaluation below for details. Daily PT notes will be located in Care Plan notes. Thank You. PT INITIAL EVALUATION Reason for Admission: Cord compression s/p ACDF C4-6 Ordered by: Ray Activity Order: Up with assist and bedrest both listed, holding OOB this AM due to significant B LEspasms and acute MAP goals at this time Weight Bearing Status: None listed Precautions: Fall; assumed no BLT at this time PMH: Past Medical History: Diagnosis Date ??? Arthritis ??? GERD (gastroesophageal reflux disease) Difficulty taking NSAIDs. ??? HTN (hypertension) ??? Post-operative nausea and vomiting S: Patient agreeable to therapy. Patient reports 8/10 pain. Posterior neck Pain intervention: Unneccessary movement avoided, Repositioned for comfort Response to pain intervention: Agrees to continue Living Situation/Functional Level LEARNING CENTER COORDINATOR: Patient lives with her pets in a 1 level house with 1-2 stairs to enter. She voices independence at baseline without an assistive device. Home Equipment: None noted O: Appearance: White female supine in bed answering all questions when prompted Cognition/Perception: Alert and oriented x 4 Skin Integrity: All dressings in tact ROM: Bilateral Lower Extremity WFL Muscle Tone: Decreased: throughout L LE, flaccid at this time throughout Strength: Bilateral Lower Extremity Decreased: L LE 0/5 currently, R LE grossly 2-/5 - 2+/5 throughout Sensation: Various areas of hypersensitivity throughout B LE which appear better with pressure vs light touch MOBILITY ASSESSMENT: Bed Mobility: Repositions in bed with max assist x 1 but otherwise is not appropriate for EOB and OOB yet Transfers: Not tolerated at this time Exercises: Bilateral LE A-AROM, PROM x 10-15 reps, supine Type: Ankle dorsiflexion/plantarflexion, Knee flexion/extension, Hip flexion/extension, Hip adduction/abduction, hip internal/external rotation --LE ROM performed to increase ROM, increase strength, increase muscular endurance, prevent loss ofjoint mobility to promote independence with functional mobility and gait. Patient/Family Education: PT plan of care and mobility progression once appropriate Other: Patient tolerates ROM well and is hopeful to get improved return of B LE strength for mobility soon Positioning after tx: Supine in bed with bed in slight reverse trendelenburg, bed alarm active, call light in reach, resting quietly A: Disabilities: Patient displays decreased functional mobility, decreased activity tolerance, decreased strength. Assessment: Patient will benefit from skilled PT to address current deficits. Clinical Presentation: Evolving with changing characteristics EVALUATION COMPLEXITY: Medium Complexity -These findings are based on patient's self reporting, therapist's objective findings and professional determinations. Recommend: To be determined (03/14/211057) Recommendations were made on today's assessment. Additional recommendations will be based on patient's progress in therapy. P: PT to see patient: At bedside 7x/wk OD once appropriate for OOB. Will continue therapy unless patient has a change in status or patient is discharged from the facility. Plan of Care developed, as indicated by PT assessment and patient's current status. Treatment Plan: Patient to be seen for Transfer training, Gait training, Exercises, Balance training Recommendations: For: Nursing --OOB to chair with chair alarm, ambulate in room or hallway, with assist Equipment to be issued at DC: To be determined (03/14/211057) --Patient involved in goal setting: yes Patient goals will be found in the Care Plan section of the medical chart. Zone #: [id number] On weekends--please call [phone] ICAL DIETICIAN * Therapy Evaluation - Roseanna Umaña, Occupational Therapist - 03/14/2021 9:12 AM CST Occupational Therapy order received, chart reviewed, and evaluation completed. Please see full evaluation below for details. Daily OT notes will be located in Care Plan notes. Thank You. OT INITIAL EVALUATION Reason for admission: Cord compression Ordered by: Dougie Bell PA Activity Order: Up with assist Weight Bearing Status: No restrictions Precautions: Fall PMH: Past Medical History: Diagnosis Date ??? Arthritis ??? GERD (gastroesophageal reflux disease) Difficulty taking NSAIDs. ??? HTN (hypertension) ??? Post-operative nausea and vomiting S: Patient reports 6-8/10 pain Posterior neck and left LE Pain intervention: Unneccessary movement avoided, Repositioned for comfort, Premedicated for activity, RN provided medications, RN aware Response to pain intervention: Appeared content Living Situation/Functional Level LEARNING CENTER COORDINATOR: Pt lives with her family in a 1 level home with 1 steps to enter. At baseline, pt is ADL, mobility (I) without device. Home Equipment: Recliner lift chair, shower bench O: Appearance: Pt is supine in bed, watkins, IV, monitors Vision: intact Cognition/Perception: Alert and oriented x 3, following all directions for therapy. UE ROM: WFL Muscle Tone: WFL UE Strength: WFL BUE- 5/5 Coordination: right Hand Dominant: WFL, slow movements noted with fine motor Sensation: Intact B UE's, Skin Integrity: intact all visible areas. Surgical site intact with bandage FUNCTIONAL ACTIVITIES ASSESSMENT: Feeding: NPO Grooming: Pt able to wash face with set up supine in bed UE Dressing: donns to shoulders mod assist LE Dressing: dependent Functional Mobility: Rolling side to side- max assist of 2, pt unable to sit edge of bed this morning d/t going to CT and pt unable to move left LE at all without L LE going into spasms/pain. Pt L LEbegins to spasm with light touch distally to proximally Positioning after tx: Pt is supine in bed with alarm on, all lines intact, and call light and needsin reach. Patient/Family Education: OT plan of care Equipment needed at D/C: ongoing A: Disabilities: Decreased ADL independence and decreased functional mobility noted,decreased LE strength Assessment: Pt could benefit from skilled OT to maximize her independence to return to her highest level of ADL/functional mobility independence EVALUATION COMPLEXITY: Low Complexity -These findings are based on patient's self reporting, therapist's objective findings and professional determinations. Recommend: Post-Acute Facility, Post Acute Facility- will tolerate 3 hours of therapy/day, to be determined Recommendations were made on today's assessment. Additional recommendations will be based on patient's progress in therapy. P: OT to see patient: once daily bedside 2-5x/wk Treatment: OT to see patient for: ADL Training, Functional Mobility Training, UE ROM/Strengthening,Patient Education Will continue therapy unless patient has a change in status or patient is discharged from the facility. --Patient involved in goal setting: yes Patient goals will be found in the Care Plan section of the medical chart. Zone #: [phone] ICAL DIETICIAN * Care Plan - Marcelo Sagastume RN - 03/13/2021 5:28 PM CST Potential for pain related to surgical/procedural intervention Interventions: Assess level of pain/comfort utilizing verbal/nonverbal pain scales; assess culturalor congregation indicators attached to pain; administer pain medications as prescribed; utilize non-pharmacologic pain control and comfort measures Expected Outcome: Patient demonstrates and reports adequate pain control Outcome Met: prn meds available, pain well controlled Potential for alteration in thermoregulatory, circulatory, respiratory fluid & electrolyte status Interventions: Perform ongoing physical assessment; maintenance of airway or mechanical ventilation; monitor level of consciousness; initiate safety measures; observe patient???s respiratory status and oxygen saturation; obtain measurements of ongoing hemodynamic parameters, cardiac rhythm, and temperature; monitor intake and output; inspect wound dressings and/or drain output; perform prescribedtherapeutic regimens, treatments and tests; document and/or communicate care given Expected Outcome: Patient will maintain functional status compatible with preoperative status Outcome Met: vss, normothermic, patient able to maintain O2 sats, no bleeding or hematoma from surgical site ICAL DIETICIAN documented in this encounter Plan of Treatment Upcoming Encounters Date Type Department Care Team (Late st Contact Info) Description 08/24/2024 11:00 AM CDT Video Visit [facility] Physical Med and Rehab - [facility] [id number] [place] [address] [address] [place], [address] [place] [address] documented as of this encounter Procedures Procedure Name Priority Date/Time Associated Diagnosis Comments TELEMETRY REPORT 04/08/2021 3:52 PM CLINICAL DIETICIAN TELEMETRY REPORT 03/28/2021 10:4 8 AM CLINICAL DIETICIAN CBC WITH DIFFERENTIAL Routine 03/27/2021 10:07 AM CLINICAL DIETICIAN BASIC METABOLIC PANEL Routine 03/27/2021 10:07 AM CLINICAL DIETICIAN CBC WITH DIFFERENTIAL Routine 03/26/2021 9:01 AM CLINICAL DIETICIAN BASIC METABOLIC PANEL Routine 03/26/2021 9:01 AM CLINICAL DIETICIAN CBC WITH DIFFERENTIAL Routine 03/25/2021 6:12 AM CLINICAL DIETICIAN MAGNESIUM LEVEL Routine 03/25/2021 6:12 AM CLINICAL DIETICIAN BASIC METABOLIC PANEL Routine 03/25/2021 6:12 AM CLINICAL DIETICIAN CBC WITH DIFFERENTIAL Routine 03/24/2021 3:52 AM CLINICAL DIETICIAN MAGNESIUM LEVEL Routine 03/24/2021 3:52 AM CLINICAL DIETICIAN BASIC METABOLIC PANEL Routine 03/24/2021 3:52 AM CLINICAL DIETICIAN CBC WITH DIFFERENTIAL Routine 03/23/2021 6:23 AM CLINICAL DIETICIAN MAGNESIUM LEVEL Routine 03/23/2021 6:23 AM CLINICAL DIETICIAN BASIC METABOLIC PANEL Routine 03/23/2021 6:23 AM CLINICAL DIETICIAN CBC WITH DIFFERENTIAL Routine 03/22/2021 5:53 AM CLINICAL DIETICIAN MAGNESIUM LEVEL Routine 03/22/2021 5:53 AM CLINICAL DIETICIAN RENAL FUNCTION PANEL Routine 03/22/2021 5:53 AM CLINICAL DIETICIAN CBC WITH DIFFERENTIAL Routine 03/21/2021 6:08 AM CLINICAL DIETICIAN MAGNESIUM LEVEL Routine 03/21/2021 6:08 AM CLINICAL DIETICIAN RENAL FUNCTION PANEL Routine 03/21/2021 6:08 AM CLINICAL DIETICIAN CBC WITH DIFFERENTIAL Routine 03/20/2021 4:37 AM CLINICAL DIETICIAN MAGNESIUM LEVEL Routine 03/20/2021 4:37 AM CLINICAL DIETICIAN RENAL FUNCTION PANEL Routine 03/20/2021 4:37 AM CLINICAL DIETICIAN BASIC METABOLIC PANEL Routine 03/20/2021 4:37 AM CLINICAL DIETICIAN CBC WITH DIFFERENTIAL Routine 03/19/2021 5:32 AM CLINICAL DIETICIAN MAGNESIUM LEVEL Routine 03/19/2021 5:32 AM CLINICAL DIETICIAN RENAL FUNCTION PANEL Routine 03/19/2021 5:32 AM CLINICAL DIETICIAN CBC WITH DIFFERENTIAL Routine 03/18/2021 4:34 AM CLINICAL DIETICIAN MAGNESIUM LEVEL Routine 03/18/2021 4:34 AM CLINICAL DIETICIAN RENAL FUNCTION PANEL Routine 03/18/2021 4:34 AM CLINICAL DIETICIAN BASIC METABOLIC PANEL Routine 03/18/2021 12:25 AM CLINICAL DIETICIAN EKG 12-LEAD Stat 03/17/2021 7:05 PM CLINICAL DIETICIAN POC GLUCOSE Routine 03/17/2021 6:11 PM CLINICAL DIETICIAN XR CHEST PA OR AP 1 VW Stat 03/17/2021 5:15 PM CLINICAL DIETICIAN BASIC METABOLIC PANEL Routine 03/17/2021 4:[address] CERVICAL THORACIC WITH CONTRAST Routine 03/17/2021 3:45 PM CLINICAL DIETICIAN XR MYELOGRAM 2 OR MORE REGIONS Routine 03/17/2021 3:16 PM CLINICAL DIETICIAN POC GLUCOSE Routine 03/17/2021 1:11 PM CLINICAL DIETICIAN POC GLUCOSE Routine 03/17/2021 10:28 AM CLINICAL DIETICIAN BASIC METABOLIC PANEL Routine 03/17/2021 8:24 AM CLINICAL DIETICIAN CBC WITH DIFFERENTIAL Routine 03/17/2021 4:27 AM CLINICAL DIETICIAN MAGNESIUM LEVEL Routine 03/17/2021 4:27 AM CLINICAL DIETICIAN RENAL FUNCTION PANEL Routine 03/17/2021 4:27 AM CLINICAL DIETICIAN BASIC METABOLIC PANEL Routine 03/17/2021 12:50 AM CLINICAL DIETICIAN POC GLUCOSE Routine 03/16/2021 8:39 PM CLINICAL DIETICIAN POC GLUCOSE Routine 03/16/2021 4:21 PM CLINICAL DIETICIAN BASIC METABOLIC PANEL Routine 03/16/2021 4:16 PM CLINICAL DIETICIAN POC GLUCOSE Routine 03/16/2021 12:42 PM CLINICAL DIETICIAN POC GLUCOSE Routine 03/16/2021 10:06 AM CLINICAL DIETICIAN CBC WITH DIFFERENTIAL Routine 03/16/2021 6:14 AM CLINICAL DIETICIAN MAGNESIUM LEVEL Routine 03/16/2021 6:14 AM CLINICAL DIETICIAN RENAL FUNCTION PANEL Routine 03/16/2021 6:14 AM CLINICAL DIETICIAN BASIC METABOLIC PANEL Routine 03/15/2021 11:57 PM CLINICAL DIETICIAN POC GLUCOSE Routine 03/15/2021 8:26 PM CLINICAL DIETICIAN BASIC METABOLIC PANEL Routine 03/15/2021 5:04 PM CLINICAL DIETICIAN POC GLUCOSE Routine 03/15/2021 1:33 PM CLINICAL DIETICIAN POC GLUCOSE Routine 03/15/2021 8:01 AM CLINICAL DIETICIAN CBC WITH DIFFERENTIAL Routine 03/15/2021 5:55 AM CLINICAL DIETICIAN MAGNESIUM LEVEL Routine 03/15/2021 5:55 AM CLINICAL DIETICIAN RENAL FUNCTION PANEL Routine 03/15/2021 5:55 AM CLINICAL DIETICIAN POC GLUCOSE Routine 03/15/2021 12:29 AM CLINICAL DIETICIAN POC GLUCOSE Routine 03/14/2021 8:30 PM CLINICAL DIETICIAN POC GLUCOSE Routine 03/14/2021 5:50 PM CLINICAL DIETICIAN POC GLUCOSE Routine 03/14/2021 3:50 PM CLINICAL DIETICIAN POC GLUCOSE Routine 03/14/2021 12:[address] THORACIC SPINE WO CONTRAST Routine 03/14/2021 9:34 AM CLINICAL DIETICIAN POC GLUCOSE Routine 03/14/2021 8:07 AM CLINICAL DIETICIAN CBC WITH DIFFERENTIAL Routine 03/14/2021 3:38 AM CLINICAL DIETICIAN POC GLUCOSE Routine 03/14/2021 3:28 AM CLINICAL DIETICIAN PROTIME-INR Stat 03/14/2021 2:03 AM CLINICAL DIETICIAN PHOSPHORUS Stat 03/14/2021 2:03 AM CLINICAL DIETICIAN MAGNESIUM LEVEL Stat 03/14/2021 2:03 AM CLINICAL DIETICIAN COMPREHENSIVE METABOLIC PANEL Stat 03/14/2021 2:03 AM CLINICAL DIETICIAN POC GLUCOSE Routine 03/14/2021 1:46 AM CLINICAL DIETICIAN MRI CERV THORACIC WO CONT Stat 03/13/2021 10:47 PM CLINICAL DIETICIAN XR OR SPINAL PROCEDURE OARM Routine 03/13/2021 6:08 PM CLINICAL DIETICIAN XR CERVICAL SPINE 1 VW Routine 03/13/2021 4:22 PM CLINICAL DIETICIAN POC LACTIC ACID Routine 03/13/2021 2:58 PM CLINICAL DIETICIAN BLOOD GAS,(INCL. H+H, LYTES, GLUC) Routine 03/13/2021 2:58 PM CLINICAL DIETICIAN XR CERVICAL SPINE 1 VW Routine 03/13/2021 2:12 PM CLINICAL DIETICIAN THORACIC LAMINECTOMY 03/13/2021 12:32 PM CLINICAL DIETICIAN NECK PAIN Case Notes MEDICARE NN, [place] NN CPT 97456, 98537, 83010, 59949 CERVICAL DISCECTOMY FUSION ANTERIOR - 2 LEVELS 03/13/2021 12:32 PM CLINICAL DIETICIAN NECK PAIN Case Notes MEDICARE NN, [place] NN CPT 05559, 47186, 90180, 61431 VERIFICATION BLOOD GROUP Stat 03/13/2021 11:55 AM CLINICAL DIETICIAN Encounter for blood typing POC GLUCOSE Routine 03/13/2021 11:12 AM CLINICAL DIETICIAN documented in this encounter Results * TELEMETRY REPORT (04/08/2021 3:52 PM CLINICAL DIETICIAN) Provider Scanning ECG ORDERABLES * TELEMETRY REPORT (03/28/2021 10:48 AM CLINICAL DIETICIAN) Provider Scanning ECG ORDERABLES * (ABNORMAL) BASIC METABOLIC PANEL (03/27/2021 10:07 AM CLINICAL DIETICIAN) SODIUM 142 136 - 145 mmol/L 03/27/2021 11:06 AM [facility] [employer] POTASSIUM 3.8 3.5 - 5.0 mmol/L 03/27/2021 11:06 AM [facility] [employer] [facility] - [facility] CHLORIDE 108(H) 98 - 107 mmol/L 03/27/2021 11:06 AM [facility] [employer] [facility] - [facility] CO2 23 22 - 29 mmol/L 03/27/2021 11:06 AM [facility] [employer] [facility] CALCIUM 8.5(L) 8.6 - 10.2 mg/dL 03/27/2021 11:06 AM [facility] [employer] [facility] BUN 26(H) 8 - 23 mg/dL 03/27/2021 11:06 AM [facility] [employer] [facility] CREATININE 0.73 0.51 - 0.95 mg/dL 03/27/2021 11:06 AM [facility] [employer] LABORATORY SERVICES [facility] GLUCOSE 122(H) 74 - 99 mg/dL 03/27/2021 11:06 AM [facility] [employer] [facility] SERVICES [facility] GFR >60 mL/min/1.7 3 sq meter 03/27/2021 11:06 AM [facility] [place] Comment: eGFR has not been validated [...] result. GFR, >60 mL/min/1.7 3 sq meter 03/27/2021 11:06 AM [facility] [employer] [facility] ANION GAP 11 8 - 16 mmol/L 03/27/2021 11:06 AM [facility] [employer] [facility] Blood Venipuncture / Unknown 03/27/2021 10:07 AM CLINICAL DIETICIAN 03/27/2021 10:27 AM [facility] Tab Jonas MD CHEMISTRY ORDERABLES [facility] [employer] [facility]# [id number] [address] [facility] [address] * (ABNORMAL) CBC WITH DIFFERENTIAL (03/27/2021 10:07 AM CLINICAL DIETICIAN) WBC 5.8 4.0 - 9.8 K/uL 03/27/2021 10:52 AM [facility] [employer] [facility] RBC 3.37(L) 3.90 - 4.90 M/uL 03/27/2021 10:52 AM [facility] [employer]travel [employer] [facility] HEMOGLOBIN 9.9(L) 11.8 - 14.8 g/dL 03/27/2021 10:52 AM [facility] [employer]travel [employer] [facility] HEMATOCRIT 31.9(L) 35.5 - 44.0 % 03/27/2021 10:52 AM [facility] [employer] [facility] MCV 94.7 82.0 - 99.0 fL 03/27/2021 10:52 AM [facility] [employer] [facility] MCH 29.4 27.2 - 32.6 pg 03/27/2021 10:52 AM [facility] MCHC 31.0(L) 31.5 - 35.5 g/dL 03/27/2021 10:52 AM [facility] RDW 13.2 11.5 - 14.5 % 03/27/2021 10:52 AM [facility] RDW-STDEV 45.6 37.1 - 48.7 fL 03/27/2021 10:52 AM [facility] PLATELETS 202 140 - 350 K/uL 03/27/2021 10:52 AM [facility] MPV 9.8 9.3 - 12.4 fL 03/27/2021 10:52 AM [facility] NEUTROPHILS 68 % 03/27/2021 10:52 AM [facility] LYMPHOCYTES 21 % 03/27/2021 10:52 AM [facility] MONOCYTES 11 % 03/27/2021 10:52 AM [facility] EOSINOPHILS 0 % 03/27/2021 10:52 AM [facility] BASOPHILS 0 % 03/27/2021 10:52 AM [facility] IMMATURE GRANULOCYTES 1 % 03/27/2021 10:52 AM [facility] Comment:IG (Immature Granulo cyte) count includes Metamyelocytes, Myelocytes, and Promyelocytes NEUTROPHIL ABSOLUTE 3.94 1.90 - 7.00 K/uL 03/27/2021 10:52 AM [facility] LYMPHOCYTE ABSOLUTE 1.20 0.70 - 4.50 K/uL 03/27/2021 10:52 AM [facility] MONOCYTE ABSOLUTE 0.61 0.10 - 1.30 K/uL 03/27/2021 10:52 AM [facility] EOSINOPHIL ABSOLUTE 0.01 0.00 - 0.70 K/uL 03/27/2021 10:52 AM [facility] BASOPHILS ABSOLUTE 0.01 0.00 - 0.20 K/uL 03/27/2021 10:52 AM CLINICAL DIETICIAN [employer] SERVICES - . [facility] IMMATURE GRANULOCYTES ABSOLUTE 0.06(H) 0.00 - 0.03 K/uL 03/27/2021 10:52 AM [facility] [employer] [facility] Blood Venipuncture / Unknown 03/27/2021 10:07 AM CLINICAL DIETICIAN 03/27/2021 10:27 AM CLINICAL DIETICIAN Tab Jonas MD HEMATOLOGY ORDERABLE S [employer]travel [employer] [facility] CLIA# [id number] [address] [place] [id number] * (ABNORMAL) BASIC METABOLIC PANEL (03/26/2021 9:01 AM CLINICAL DIETICIAN) SODIUM 140 136 - 145 mmol/L 03/26/2021 10:04 AM [facility] [employer] [facility]. [facility] POTASSIUM 3.8 3.5 - 5.0 mmol/L 03/26/2021 10:04 AM [employer] [facility]. [facility] CHLORIDE 107 98 - 107 mmol/L 03/26/2021 10:04 AM [employer] [facility]. [place] CO2 23 22 - 29 mmol/L 03/26/2021 10:04 AM [facility] [employer] [facility]. [facility] CALCIUM 8.3(L) 8.6 - 10.2 mg/dL 03/26/2021 10:04 AM [facility] [employer] [facility]. [facility] BUN 30(H) 8 - 23 mg/dL 03/26/2021 10:04 AM CLINICAL DIETICIAN [employer] [facility]. [facility] CREATININE 0.78 0.51 - 0.95 mg/dL 03/26/2021 10:04 AM [employer] [facility]. [facility] GLUCOSE 106(H) 74 - 99 mg/dL 03/26/2021 10:04 AM [employer] [facility]. [facility] GFR >60 mL/min/1.7 3 sq meter 03/26/2021 10:04 AM [employer] [facility]. [facility] Comment: eGFR has not been validated for [...] result. GFR, >60 mL/min/1.7 3 sq meter 03/26/2021 10:04 AM [facility] [employer] LABORATORY SERVICES - [facility] ANION GAP 10 8 - 16 mmol/L 03/26/2021 10:04 AM [facility] [employer] SERVICES [facility] Blood Venipuncture / Unknown 03/26/2021 9:01 AM CLINICAL DIETICIAN 03/26/2021 9:18 AM CLINICAL DIETICIAN Tab Jonas MD CHEMISTRY ORDERABLES [employer] SERVICES [facility] CLIA# [id number] 5 [facility] [address] * (ABNORMAL) CBC WITH DIFFERENTIAL (03/26/2021 9:01 AM CLINICAL DIETICIAN) WBC 6.3 4.0 - 9.8 K/uL 03/26/2021 9:46 AM [facility] [employer] LABORATORY [facility] RBC 3.39(L) 3.90 - 4.90 M/uL 03/26/2021 9:46 AM [facility] [employer] LABORATORY SERVICES [facility] HEMOGLOBIN 10.0(L) 11.8 - 14.8 g/dL 03/26/2021 9:46 AM [facility] [employer] [facility] HEMATOCRIT 31.9(L) 35.5 - 44.0 % 03/26/2021 9:46 AM [facility] [employer] SERVICES [facility] MCV 94.1 82.0 - 99.0 fL 03/26/2021 9:46 AM [facility] [employer] [facility] MCH 29.5 27.2 - 32.6 pg 03/26/2021 9:46 AM [facility] [employer] SERVICES [facility] MCHC 31.3(L) 31.5 - 35.5 g/dL 03/26/2021 9:46 AM [facility] RDW 13.3 11.5 - 14.5 % 03/26/2021 9:46 AM CLINICAL DIETICIAN [facility] [facility] RDW-STDEV 45.8 37.1 - 48.7 fL 03/26/2021 9:46 AM CLINICAL DIETICIAN [employer] [facility]ORY SERVICES [facility] PLATELETS 202 140 - 350 K/uL 03/26/2021 9:46 AM CLINICAL DIETICIAN [employer] [facility] SERVICES [facility] MPV 9.7 9.3 - 12.4 fL 03/26/2021 9:46 AM [facility] NEUTROPHILS 69 % 03/26/2021 9:46 AM [facility] LYMPHOCYTES 21 % 03/26/2021 9:46 AM [facility] MONOCYTES 8 % 03/26/2021 9:46 AM [facility] EOSINOPHILS 0 % 03/26/2021 9:46 AM [facility] BASOPHILS 0 % 03/26/2021 9:46 AM [facility] IMMATURE GRANULOCYTES 1 % 03/26/2021 9:46 AM [facility] Comment:IG (Immature Granulo cyte) count includes Metamyelocytes, Myelocytes, and Promyelocytes NEUTROPHIL ABSOLUTE 4.34 1.90 - 7.00 K/uL 03/26/2021 9:46 AM [facility] LYMPHOCYTE ABSOLUTE 1.33 0.70 - 4.50 K/uL 03/26/2021 9:46 AM [facility] MONOCYTE ABSOLUTE 0.49 0.10 - 1.30 K/uL 03/26/2021 9:46 AM [facility] EOSINOPHIL ABSOLUTE 0.01 0.00 - 0.70 K/uL 03/26/2021 9:46 AM [facility] BASOPHILS ABSOLUTE 0.00 0.00 - 0.20 K/uL 03/26/2021 9:46 AM [facility] IMMATURE GRANULOCYTES ABSOLUTE 0.09(H) 0.00 - 0.03 K/uL 03/26/2021 9:46 AM CLINICAL DIETICIAN [facility] Blood Venipuncture / Unknown 03/26/2021 9:01 AM CLINICAL DIETICIAN 03/26/2021 9:18 AM CLINICAL DIETICIAN Tab Jonas MD HEMATOLOGY ORDERABLE S [facility] [employer] [facility] CLIA# [id number] 5 [employer] [facility] [place] [id number] * (ABNORMAL) BASIC METABOLIC PANEL (03/25/2021 6:12 AM CLINICAL DIETICIAN) SODIUM 138 136 - 145 mmol/L 03/25/2021 7:07 AM [facility] [employer] [facility]. [facility] POTASSIUM 4.2 3.5 - 5.0 mmol/L 03/25/2021 7:07 AM [facility] [employer] [facility]. [facility] CHLORIDE 105 98 - 107 mmol/L 03/25/2021 7:07 AM [facility] [employer] [facility]. [place] CO2 25 22 - 29 mmol/L 03/25/2021 7:07 AM [facility] [employer] [facility]. [facility] CALCIUM 8.0(L) 8.6 - 10.2 mg/dL 03/25/2021 7:07 AM [facility] [employer] [facility]. [place] BUN 27(H) 8 - 23 mg/dL 03/25/2021 7:07 AM [facility] [employer] [facility]. [facility] CREATININE 0.75 0.51 - 0.95 mg/dL 03/25/2021 7:07 AM [facility] [employer] [facility]. [facility] GLUCOSE 103(H) 74 - 99 mg/dL 03/25/2021 7:07 AM [facility] [employer] [facility]. [facility] GFR >60 mL/min/1.7 3 sq meter 03/25/2021 7:07 AM [facility] [employer] [facility]. [facility] Comment: eGFR has not been validated for [...] result. GFR, >60 mL/min/1.7 3 sq meter 03/25/2021 7:07 AM [facility] [employer] LABORATORY SERVICES - [facility] ANION GAP 8 8 - 16 mmol/L 03/25/2021 7:07 AM [facility] [employer] LABORATORY SERVICES - . [facility] Blood Venipuncture / Unknown 03/25/2021 6:12 AM CLINICAL DIETICIAN 03/25/2021 6:28 AM CLINICAL DIETICIAN Tab Jonas MD CHEMISTRY ORDERABLES [employer] LABORATORY SERVICES [facility] CLIA# [id number] 5 [employer] [facility] [place] [id number] * (ABNORMAL) CBC WITH DIFFERENTIAL (03/25/2021 6:12 AM CLINICAL DIETICIAN) WBC 7.3 4.0 - 9.8 K/uL 03/25/2021 7:46 AM CLINICAL DIETICIAN [employer] LABORATORY SERVICES - [facility] RBC 3.22(L) 3.90 - 4.90 M/uL 03/25/2021 7:46 AM [facility] [employer] LABORATORY SERVICES - [facility] HEMOGLOBIN 9.5(L) 11.8 - 14.8 g/dL 03/25/2021 7:46 AM CLINICAL DIETICIAN [employer] LABORATORY SERVICES - [facility] HEMATOCRIT 31.2(L) 35.5 - 44.0 % 03/25/2021 7:46 AM [facility] LABORATORY SERVICES - [facility] MCV 96.9 82.0 - 99.0 fL 03/25/2021 7:46 AM [facility] LABORATORY SERVICES - [facility] MCH 29.5 27.2 - 32.6 pg 03/25/2021 7:46 AM [facility] LABORATORY SERVICES - . [facility] MCHC 30.4(L) 31.5 - 35.5 g/dL 03/25/2021 7:46 AM CLINICAL DIETICIAN [employer] LABORATORY SERVICES - [facility] RDW 13.2 11.5 - 14.5 % 03/25/2021 7:46 AM [facility] RDW-STDEV 47.3 37.1 - 48.7 fL 03/25/2021 7:46 AM [facility] [employer] LAB[facility]ATORY SERVICES - [facility] PLATELETS 181 140 - 350 K/uL 03/25/2021 7:46 AM [facility] [employer] [facility]ATORY SERVICES - [facility] MPV 9.6 9.3 - 12.4 fL 03/25/2021 7:46 AM [facility] [employer] [facility] NEUTROPHILS 66 % 03/25/2021 7:46 AM [facility] [employer] [facility]ATORY SERVICES - [facility] LYMPHOCYTES 24 % 03/25/2021 7:46 AM [facility] [employer] [facility]ORY SERVICES - [facility] MONOCYTES 7 % 03/25/2021 7:46 AM [facility] [employer] SERVICES - [facility] EOSINOPHILS 0 % 03/25/2021 7:46 AM [facility] [employer] LAB[facility]ATORY SERVICES - [facility] BASOPHILS 0 % 03/25/2021 7:46 AM [facility] [employer] [facility] - . [place] IMMATURE GRANULOCYTES 2 % 03/25/2021 7:46 AM [facility] [employer] [facility]ATORY SERVICES [facility] Comment:IG (Immature Granulo cyte) count includes Metamyelocytes, Myelocytes, and Promyelocytes NEUTROPHIL ABSOLUTE 4.86 1.90 - 7.00 K/uL 03/25/2021 7:46 AM [facility] [employer] LABORATORY [facility] LYMPHOCYTE ABSOLUTE 1.78 0.70 - 4.50 K/uL 03/25/2021 7:46 AM [facility] [employer] LABORATORY [facility] MONOCYTE ABSOLUTE 0.53 0.10 - 1.30 K/uL 03/25/2021 7:46 AM [facility] [employer] [facility] [place] EOSINOPHIL ABSOLUTE 0.00 0.00 - 0.70 K/uL 03/25/2021 7:46 AM CLINICAL DIETICIAN [employer] [facility] [place] BASOPHILS ABSOLUTE 0.01 0.00 - 0.20 K/uL 03/25/2021 7:46 AM [facility] [employer] [facility] - . [place] IMMATURE GRANULOCYTES ABSOLUTE 0.16(H) 0.00 - 0.03 K/uL 03/25/2021 7:46 AM CLINICAL DIETICIAN [employer] - [facility] [place] Blood Venipuncture / Unknown 03/25/2021 6:12 AM CLINICAL DIETICIAN 03/25/2021 6:28 AM CLINICAL DIETICIAN Tab Jonas MD HEMATOLOGY ORDERABLE S [facility] [employer] [facility] [id number] [address] [place] [address] * MAGNESIUM LEVEL (03/25/2021 6:12 AM CLINICAL DIETICIAN) MAGNESIUM 2.1 1.6 - 2.4 mg/dL 03/25/2021 7:07 AM [facility] [employer] LABORATORY SERVICES [facility] Blood Venipuncture / Unknown 03/25/2021 6:12 AM CLINICAL DIETICIAN 03/25/2021 6:28 AM CLINICAL DIETICIAN Janice Alanis MD CHEMISTRY ORDERAB LES Performing Organization Address [facility]/ZIP Co de Phone Number [facility] [employer] [facility]# [id number] [address] [place] [address] * (ABNORMAL) BASIC METABOLIC PANEL (03/24/2021 3:52 AM CLINICAL DIETICIAN) SODIUM 137 136 - 145 mmol/L 03/24/2021 4:39 AM [facility] [employer] LABORATORY SERVICES - . [facility] POTASSIUM 4.5 3.5 - 5.0 mmol/L 03/24/2021 4:39 AM [facility] [employer] LABORATORY SERVICES - . [place] CHLORIDE 105 98 - 107 mmol/L 03/24/2021 4:39 AM [facility] [employer] LAB[facility]ATORY SERVICES - [facility] CO2 23 22 - 29 mmol/L 03/24/2021 4:39 AM [facility] [employer] LABORATORY SERVICES - [facility] CALCIUM 8.1(L) 8.6 - 10.2 mg/dL 03/24/2021 4:39 AM [facility] [employer] [facility]ATORY SERVICES - [facility] BUN 35(H) 8 - 23 mg/dL 03/24/2021 4:39 AM [facility] [employer] LABORATORY SERVICES - [facility] CREATININE 0.97(H) 0.51 - 0.95 mg/dL 03/24/2021 4:39 AM CLINICAL DIETICIAN [employer] LABORATORY SERVICES - . [place] GLUCOSE 129(H) 74 - 99 mg/dL 03/24/2021 4:39 AM [facility] [employer] [facility] GFR 58 mL/min/1.7 3 sq meter 03/24/2021 4:39 AM [facility] Comment: eGFR has not been validated for [...] result. GFR, >60 mL/min/1.7 3 sq meter 03/24/2021 4:39 AM [facility] [employer] [facility] ANION GAP 9 8 - 16 mmol/L 03/24/2021 4:39 AM [facility] [employer] [facility] Blood Venipuncture / Unknown 03/24/2021 3:52 AM CLINICAL DIETICIAN 03/24/2021 4:00 AM CLINICAL DIETICIAN Tab Jonas MD CHEMISTRY ORDERABLES [facility] [employer] [facility]# [id number] 5 [facility] [place] [address] * (ABNORMAL) CBC WITH DIFFERENTIAL (03/24/2021 3:52 AM CLINICAL DIETICIAN) WBC 10.9(H) 4.0 - 9.8 K/uL 03/24/2021 4:15 AM [facility] [employer] [facility] RBC 3.78(L) 3.90 - 4.90 M/uL 03/24/2021 4:15 AM [facility] [employer] [facility] HEMOGLOBIN 11.2(L) 11.8 - 14.8 g/dL 03/24/2021 4:15 AM [facility] [employer] [facility] HEMATOCRIT 35.0(L) 35.5 - 44.0 % 03/24/2021 4:15 AM CLINICAL DIETICIAN [facility] MCV 92.6 82.0 - 99.0 fL 03/24/2021 4:15 AM CLINICAL DIETICIAN [employer] LABORATORY SERVICES - [facility] MCH 29.6 27.2 - 32.6 pg 03/24/2021 4:15 AM [facility] - [facility] MCHC 32.0 31.5 - 35.5 g/dL 03/24/2021 4:15 AM [facility] - [facility] RDW 13.2 11.5 - 14.5 % 03/24/2021 4:15 AM [facility] - [facility] RDW-STDEV 44.8 37.1 - 48.7 fL 03/24/2021 4:15 AM [facility] - [facility] PLATELETS 241 140 - 350 K/uL 03/24/2021 4:15 AM [facility] - [facility] MPV 9.3 9.3 - 12.4 fL 03/24/2021 4:15 AM [facility] - [facility] NEUTROPHILS 69 % 03/24/2021 4:15 AM [facility] LYMPHOCYTES 21 % 03/24/2021 4:15 AM [facility] MONOCYTES 8 % 03/24/2021 4:15 AM [facility] EOSINOPHILS 0 % 03/24/2021 4:15 AM [facility] BASOPHILS 0 % 03/24/2021 4:15 AM [facility] IMMATURE GRANULOCYTES 2 % 03/24/2021 4:15 AM [facility] Comment:IG (Immature Granulo cyte) count includes Metamyelocytes, Myelocytes, and Promyelocytes NEUTROPHIL ABSOLUTE 7.51(H) 1.90 - 7.00 K/uL 03/24/2021 4:15 AM CLINICAL DIETICIAN [employer] [facility] LABORATORY SERVICES - [facility] LYMPHOCYTE ABSOLUTE 2.26 0.70 - 4.50 K/uL 03/24/2021 4:15 AM [facility]AT[facility] SERVICES - [facility] MONOCYTE ABSOLUTE 0.85 0.10 - 1.30 K/uL 03/24/2021 4:15 AM CLINICAL DIETICIAN [employer] LABORATORY SERVICES - [facility] EOSINOPHIL ABSOLUTE 0.00 0.00 - 0.70 K/uL 03/24/2021 4:15 AM CLINICAL DIETICIAN [employer] LABORATORY SERVICES - . [place] BASOPHILS ABSOLUTE 0.01 0.00 - 0.20 K/uL 03/24/2021 4:15 AM [facility]ICAL DIETIC[facility] . [place] IMMATURE GRANULOCYTES ABSOLUTE 0.24(H) 0.00 - 0.03 K/uL 03/24/2021 4:15 AM CLINICAL DIETICIAN [facility] LAB[facility]ORY SERVICES - . [facility] Blood Venipuncture / Unknown 03/24/2021 3:52 AM CLINICAL DIETICIAN 03/24/2021 4:00 AM CLINICAL DIETICIAN Tab Jonas MD HEMATOLOGY ORDERABLE S [facility] [employer] [facility] CLIA# [id number] [address] [place] [address] * MAGNESIUM LEVEL (03/24/2021 3:52 AM CLINICAL DIETICIAN) MAGNESIUM 2.0 1.6 - 2.4 mg/dL 03/24/2021 4:39 AM CLINICAL DIETICIAN [employer] LABORATORY [facility] - [facility] Blood Venipuncture / Unknown 03/24/2021 3:52 AM CLINICAL DIETICIAN 03/24/2021 4:00 AM CLINICAL DIETICIAN Janice Alanis MD CHEMISTRY ORDERAB LES [facility] [employer] [facility] CLIA# [id number] [address] [place] [address] * (ABNORMAL) BASIC METABOLIC PANEL (03/23/2021 6:23 AM CLINICAL DIETICIAN) SODIUM 132(L) 136 - 145 mmol/L 03/23/2021 6:58 AM [facility] [email or web address] LABORATORY SERVICES [facility] POTASSIUM 4.5 3.5 - 5.0 mmol/L 03/23/2021 6:58 AM CLINICAL DIETICIAN [employer] LABORATORY SERVICES [facility] CHLORIDE 99 98 - 107 mmol/L 03/23/2021 6:58 AM [facility] CO2 23 22 - 29 mmol/L 03/23/2021 6:58 AM [facility] CALCIUM 8.7 8.6 - 10.2 mg/dL 03/23/2021 6:58 AM [facility] BUN 32(H) 8 - 23 mg/dL 03/23/2021 6:58 AM [facility] CREATININE 0.88 0.51 - 0.95 mg/dL 03/23/2021 6:58 AM [facility] GLUCOSE 121(H) 74 - 99 mg/dL 03/23/2021 6:58 AM [facility] GFR >60 mL/min/1.7 3 sq meter 03/23/2021 6:58 AM [facility] Comment: eGFR has not been validated for [...] result. GFR, >60 mL/min/1.7 3 sq meter 03/23/2021 6:58 AM [facility] ANION GAP 10 8 - 16 mmol/L 03/23/2021 6:58 AM [facility] [employer] [facility] Blood Venipuncture / Unknown 03/23/2021 6:23 AM CLINICAL DIETICIAN 03/23/2021 6:28 AM CLINICAL DIETICIAN Tab Jonas MD CHEMISTRY ORDERABLES [facility]# [id number] [facility] [place] [id number] * (ABNORMAL) CBC WITH DIFFERENTIAL (03/23/2021 6:23 AM CLINICAL DIETICIAN) WBC 19.5(H) 4.0 - 9.8 K/uL 03/23/2021 6:51 AM [employer] [facility] RBC 4.24 3.90 - 4.90 M/uL 03/23/2021 6:51 AM [facility] HEMOGLOBIN 12.5 11.8 - 14.8 g/dL 03/23/2021 6:51 AM [facility] HEMATOCRIT 38.3 35.5 - 44.0 % 03/23/2021 6:51 AM [facility] MCV 90.3 82.0 - 99.0 fL 03/23/2021 6:51 AM [facility] MCH 29.5 27.2 - 32.6 pg 03/23/2021 6:51 AM [facility] MCHC 32.6 31.5 - 35.5 g/dL 03/23/2021 6:51 AM [facility] RDW 13.2 11.5 - 14.5 % 03/23/2021 6:51 AM [facility] RDW-STDEV 43.4 37.1 - 48.7 fL 03/23/2021 6:51 AM [facility] PLATELETS 312 140 - 350 K/uL 03/23/2021 6:51 AM [facility] MPV 9.3 9.3 - 12.4 fL 03/23/2021 6:51 AM [facility] NEUTROPHILS 70 % 03/23/2021 6:51 AM [facility] LYMPHOCYTES 20 % 03/23/2021 6:51 AM [facility] MONOCYTES 8 % 03/23/2021 6:51 AM CLINICAL DIETICIAN [employer] [facility] - [facility] EOSINOPHILS 0 % 03/23/2021 6:51 AM [facility] BASOPHILS 0 % 03/23/2021 6:51 AM [facility] IMMATURE GRANULOCYTES 2 % 03/23/2021 6:51 AM [facility] Comment:IG (Immature Granulo cyte) count includes Metamyelocytes, Myelocytes, and Promyelocytes NEUTROPHIL ABSOLUTE 13.57(H) 1.90 - 7.00 K/uL 03/23/2021 6:51 AM CLINICAL DIETICIAN [facility] LABORATORY [facility] LYMPHOCYTE ABSOLUTE 3.85 0.70 - 4.50 K/uL 03/23/2021 6:51 AM [facility] LABORATORY [facility] - . [facility] MONOCYTE ABSOLUTE 1.58(H) 0.10 - 1.30 K/uL 03/23/2021 6:51 AM [facility] LABORATORY SERVICES - . [facility] EOSINOPHIL ABSOLUTE 0.03 0.00 - 0.70 K/uL 03/23/2021 6:51 AM CLINICAL DIETICIAN [facility] LABORATORY SERVICES - . [place] BASOPHILS ABSOLUTE 0.04 0.00 - 0.20 K/uL 03/23/2021 6:51 AM [facility] LABORATORY SERVICES - . [facility] IMMATURE GRANULOCYTES ABSOLUTE 0.43(H) 0.00 - 0.03 K/uL 03/23/2021 6:51 AM [facility] LABORATORY [facility] - [facility] Blood Venipuncture / Unknown 03/23/2021 6:23 AM CLINICAL DIETICIAN 03/23/2021 6:28 AM CLINICAL DIETICIAN Tab Jonas MD HEMATOLOGY ORDERABLE S [facility] CLSC# [id number] [address] [place] [id number] * MAGNESIUM LEVEL (03/23/2021 6:23 AM CLINICAL DIETICIAN) MAGNESIUM 2.1 1.6 - 2.4 mg/dL 03/23/2021 6:58 AM CLINICAL DIETICIAN [facility] LABORATORY [facility] Blood Venipuncture / Unknown 03/23/2021 6:23 AM CLINICAL DIETICIAN 03/23/2021 6:28 AM CLINICAL DIETICIAN Janice Alanis MD CHEMISTRY ORDERAB LES [facility] [employer] [facility] CLIA# [id number] [address] [place] [id number] * (ABNORMAL) CBC WITH DIFFERENTIAL (03/22/2021 5:53 AM CLINICAL DIETICIAN) WBC 10.0(H) 4.0 - 9.8 K/uL 03/22/2021 6:23 AM CLINICAL DIETICIAN [employer] LABORATORY SERVICES - [facility] RBC 4.21 3.90 - 4.90 M/uL 03/22/2021 6:23 AM CLINICAL DIETICIAN [employer] LABORATORY SERVICES - [facility] HEMOGLOBIN 12.3 11.8 - 14.8 g/dL 03/22/2021 6:23 AM CLINICAL DIETICIAN [employer] LABORATORY SERVICES - [facility] HEMATOCRIT 38.8 35.5 - 44.0 % 03/22/2021 6:23 AM CLINICAL DIETICIAN [employer] LABORATORY SERVICES - [facility] MCV 92.2 82.0 - 99.0 fL 03/22/2021 6:23 AM CLINICAL DIETICIAN [employer] LABORATORY SERVICES - [facility] MCH 29.2 27.2 - 32.6 pg 03/22/2021 6:23 AM CLINICAL DIETICIAN [employer] LABORATORY SERVICES - [facility] MCHC 31.7 31.5 - 35.5 g/dL 03/22/2021 6:23 AM CLINICAL DIETICIAN [employer] LABORATORY SERVICES - [facility] RDW 12.9 11.5 - 14.5 % 03/22/2021 6:23 AM CLINICAL DIETICIAN [employer] LABORATORY SERVICES - [facility] [place] RDW-STDEV 43.8 37.1 - 48.7 fL 03/22/2021 6:23 AM CLINICAL DIETICIAN [employer] LABORATORY SERVICES - . [place] PLATELETS 267 140 - 350 K/uL 03/22/2021 6:23 AM CLINICAL DIETICIAN [employer] LABORATORY SERVICES - [facility] MPV 9.6 9.3 - 12.4 fL 03/22/2021 6:23 AM CLINICAL DIETICIAN [employer] LABORATORY SERVICES - [facility] [place] NEUTROPHILS 72 % 03/22/2021 6:23 AM CLINICAL DIETICIAN [employer] LABORATORY SERVICES - [facility] LYMPHOCYTES 17 % 03/22/2021 6:23 AM CLINICAL DIETICIAN [employer] LABORATORY SERVICES - [facility] MONOCYTES 7 % 03/22/2021 6:23 AM CLINICAL DIETICIAN [employer] LABORATORY SERVICES - [facility] [place] EOSINOPHILS 0 % 03/22/2021 6:23 AM CLINICAL DIETICIAN [employer] LABORATORY SERVICES - [facility] [place] BASOPHILS 0 % 03/22/2021 6:23 AM CLINICAL DIETICIAN [employer] LABORATORY SERVICES - [facility] IMMATURE GRANULOCYTES 4 % 03/22/2021 6:23 AM [facility] LABORATORY [facility] - [facility] Comment:IG (Immature Granulo cyte) count includes Metamyelocytes, Myelocytes, and Promyelocytes NEUTROPHIL ABSOLUTE 7.19(H) 1.90 - 7.00 K/uL 03/22/2021 6:23 AM [facility] LABORATORY [facility]. [facility] LYMPHOCYTE ABSOLUTE 1.74 0.70 - 4.50 K/uL 03/22/2021 6:23 AM [facility] LABORATORY [facility]. [facility] MONOCYTE ABSOLUTE 0.65 0.10 - 1.30 K/uL 03/22/2021 6:23 AM [facility] LABORATORY [facility]. [facility] EOSINOPHIL ABSOLUTE 0.00 0.00 - 0.70 K/uL 03/22/2021 6:23 AM [facility] LABORATORY [facility]. [facility] BASOPHILS ABSOLUTE 0.02 0.00 - 0.20 K/uL 03/22/2021 6:23 AM [facility] LABORATORY [facility] IMMATURE GRANULOCYTES ABSOLUTE 0.39(H) 0.00 - 0.03 K/uL 03/22/2021 6:23 AM [facility] [employer] [facility] Blood Venipuncture / Unknown 03/22/2021 5:53 AM CLINICAL DIETICIAN 03/22/2021 6:06 AM CLINICAL DIETICIAN Tab Jonas MD HEMATOLOGY ORDERABLE S [facility]# [id number] [address] [facility] [place] [id number] * MAGNESIUM LEVEL (03/22/2021 5:53 AM CLINICAL DIETICIAN) MAGNESIUM 2.2 1.6 - 2.4 mg/dL 03/22/2021 6:47 AM [facility] [employer] [facility] Blood Venipuncture / Unknown 03/22/2021 5:53 AM CLINICAL DIETICIAN 03/22/2021 6:05 AM CLINICAL DIETICIAN Janice Alanis MD CHEMISTRY ORDERAB LES [employer] SERVICES - . [place] LEONEL# [id number] [address] [facility] [place] [place] [id number] * (ABNORMAL) RENAL FUNCTION PANEL (03/22/2021 5:53 AM CLINICAL DIETICIAN) SODIUM 135(L) 136 - 145 mmol/L 03/22/2021 6:46 AM [facility] [employer] LABORATORY SERVICES - [facility] POTASSIUM 4.4 3.5 - 5.0 mmol/L 03/22/2021 6:46 AM [facility] [employer] SERVICES - [facility] [place] CHLORIDE 101 98 - 107 mmol/L 03/22/2021 6:46 AM [facility] [employer] SERVICES - [facility] CO2 25 22 - 29 mmol/L 03/22/2021 6:46 AM [facility] [employer] SERVICES - [facility] CALCIUM 8.7 8.6 - 10.2 mg/dL 03/22/2021 6:46 AM [facility] [employer] SERVICES - [facility] BUN 28(H) 8 - 23 mg/dL 03/22/2021 6:46 AM [facility] [employer] SERVICES - [facility] CREATININE 0.83 0.51 - 0.95 mg/dL 03/22/2021 6:46 AM [facility] [employer] SERVICES - [facility] GLUCOSE 112(H) 74 - 99 mg/dL 03/22/2021 6:46 AM [facility] [employer] SERVICES - [facility] ALBUMIN 3.3(L) 3.5 - 5.2 g/dL 03/22/2021 6:46 AM [facility] [employer] LABORATORY SERVICES - [facility] [place] PHOSPHORUS 4.1 2.5 - 4.5 mg/dL 03/22/2021 6:46 AM [facility] [employer] SERVICES - [facility] GFR >60 mL/min/1.7 3 sq meter 03/22/2021 6:46 AM [facility] [employer] LABORATORY SERVICES - [facility] Comment: eGFR has not been validated [...] result. GFR, >60 mL/min/1.7 3 sq meter 03/22/2021 6:46 AM [facility] [employer] LABORATORY SERVICES - [facility] ANION GAP 9 8 - 16 mmol/L 03/22/2021 6:46 AM CLINICAL DIETICIAN [employer] LABORATORY SERVICES - [facility] Blood Venipuncture / Unknown 03/22/2021 5:53 AM CLINICAL DIETICIAN 03/22/2021 6:05 AM CLINICAL DIETICIAN Janice Alanis MD CHEMISTRY ORDERAB LES [employer] SERVICES [facility] CLIA# [id number] [address] [facility] [place] [id number] * (ABNORMAL) CBC WITH DIFFERENTIAL (03/21/2021 6:08 AM CLINICAL DIETICIAN) WBC 10.4(H) 4.0 - 9.8 K/uL 03/21/2021 6:34 AM [employer] LABORATORY SERVICES - [facility] RBC 4.10 3.90 - 4.90 M/uL 03/21/2021 6:34 AM [facility] LABORATORY SERVICES - [facility] HEMOGLOBIN 12.0 11.8 - 14.8 g/dL 03/21/2021 6:34 AM [facility] LABORATORY SERVICES - [facility] HEMATOCRIT 37.7 35.5 - 44.0 % 03/21/2021 6:34 AM [facility] LABORATORY SERVICES - [facility] MCV 92.0 82.0 - 99.0 fL 03/21/2021 6:34 AM [facility] LABORATORY SERVICES - [facility] MCH 29.3 27.2 - 32.6 pg 03/21/2021 6:34 AM [facility] LABORATORY SERVICES - [facility] MCHC 31.8 31.5 - 35.5 g/dL 03/21/2021 6:34 AM [facility] LABORATORY SERVICES - [facility] RDW 12.8 11.5 - 14.5 % 03/21/2021 6:34 AM [facility] LABORATORY SERVICES - [facility] RDW-STDEV 43.0 37.1 - 48.7 fL 03/21/2021 6:34 AM CLINICAL DIETICIAN [employer] - [facility] [place] PLATELETS 255 140 - 350 K/uL 03/21/2021 6:34 AM [facility] [employer] [facility] - [facility] [place] MPV 9.5 9.3 - 12.4 fL 03/21/2021 6:34 AM [facility] [employer] SERVICES - [facility] NEUTROPHILS 74 % 03/21/2021 6:34 AM [facility] [employer] SERVICES - [facility] LYMPHOCYTES 16 % 03/21/2021 6:34 AM [facility] [employer] SERVICES - [facility] MONOCYTES 7 % 03/21/2021 6:34 AM [employer] - [facility] [place] EOSINOPHILS 0 % 03/21/2021 6:34 AM CLINICAL DIETICIAN [employer] - [facility] [place] BASOPHILS 0 % 03/21/2021 6:34 AM CLINICAL DIETICIAN [employer] - [facility] [place] IMMATURE GRANULOCYTES 3 % 03/21/2021 6:34 AM [facility] [employer] - [facility] [place] Comment:IG (Immature Granulo cyte) count includes Metamyelocytes, Myelocytes, and Promyelocytes NEUTROPHIL ABSOLUTE 7.72(H) 1.90 - 7.00 K/uL 03/21/2021 6:34 AM CLINICAL DIETICIAN [employer] - [facility] [place] LYMPHOCYTE ABSOLUTE 1.67 0.70 - 4.50 K/uL 03/21/2021 6:34 AM CLINICAL DIETICIAN [employer] - [facility] [place] MONOCYTE ABSOLUTE 0.68 0.10 - 1.30 K/uL 03/21/2021 6:34 AM [facility] [employer] - [facility] [place] EOSINOPHIL ABSOLUTE 0.00 0.00 - 0.70 K/uL 03/21/2021 6:34 AM [employer] - [facility] [place] BASOPHILS ABSOLUTE 0.01 0.00 - 0.20 K/uL 03/21/2021 6:34 AM [employer] - [facility] [place] IMMATURE GRANULOCYTES ABSOLUTE 0.30(H) 0.00 - 0.03 K/uL 03/21/2021 6:34 AM CLINICAL DIETICIAN [employer] - [facility] [place] Blood Venipuncture / Unknown 03/21/2021 6:08 AM CLINICAL DIETICIAN 03/21/2021 6:23 AM CLINICAL DIETICIAN Tab Jonas MD HEMATOLOGY ORDERABLE S [facility] [employer] [facility]# [id number] [address] [place] [id number] * MAGNESIUM LEVEL (03/21/2021 6:08 AM CLINICAL DIETICIAN) MAGNESIUM 2.4 1.6 - 2.4 mg/dL 03/21/2021 6:57 AM [facility] [employer] SERVICES [facility] Blood Venipuncture / Unknown 03/21/2021 6:08 AM CLINICAL DIETICIAN 03/21/2021 6:23 AM CLINICAL DIETICIAN Janice Alanis MD CHEMISTRY ORDERAB LES Performing Organization Address City/[facility]/ZIP Co de Phone Number [facility] [employer] [facility] [id number] [address] [place] [id number] * (ABNORMAL) RENAL FUNCTION PANEL (03/21/2021 6:08 AM CLINICAL DIETICIAN) SODIUM 134(L) 136 - 145 mmol/L 03/21/2021 6:57 AM CLINICAL DIETICIAN [employer] LABORATORY SERVICES - . [facility] POTASSIUM 4.5 3.5 - 5.0 mmol/L 03/21/2021 6:57 AM CLINICAL DIETICIAN [employer] LABORATORY SERVICES - . [facility] CHLORIDE 99 98 - 107 mmol/L 03/21/2021 6:57 AM CLINICAL DIETICIAN [employer] LABORATORY SERVICES - . [place] CO2 25 22 - 29 mmol/L 03/21/2021 6:57 AM CLINICAL DIETICIAN [employer] LABORATORY SERVICES - . [place] CALCIUM 8.7 8.6 - 10.2 mg/dL 03/21/2021 6:57 AM CLINICAL DIETICIAN [employer] LABORATORY SERVICES - . [place] BUN 28(H) 8 - 23 mg/dL 03/21/2021 6:57 AM CLINICAL DIETICIAN [employer] LABORATORY SERVICES - . [facility] CREATININE 0.79 0.51 - 0.95 mg/dL 03/21/2021 6:57 AM CLINICAL DIETICIAN [employer] LABORATORY SERVICES - . [facility] GLUCOSE 113(H) 74 - 99 mg/dL 03/21/2021 6:57 AM CLINICAL DIETICIAN [employer] LABORATORY SERVICES - [facility] ALBUMIN 3.3(L) 3.5 - 5.2 g/dL 03/21/2021 6:57 AM [facility] [employer] SERVICES - . [place] PHOSPHORUS 3.7 2.5 - 4.5 mg/dL 03/21/2021 6:57 AM [facility] [employer] SERVICES - [facility] GFR >60 mL/min/1.7 3 sq meter 03/21/2021 6:57 AM [facility] [employer] LABORATORY SERVICES - [facility] Comment: eGFR has not been validated for [...] result. GFR, >60 mL/min/1.7 3 sq meter 03/21/2021 6:57 AM [facility] [employer] LABORATORY SERVICES - [facility] ANION GAP 10 8 - 16 mmol/L 03/21/2021 6:57 AM [facility] [employer] SERVICES [facility] Blood Venipuncture / Unknown 03/21/2021 6:08 AM CLINICAL DIETICIAN 03/21/2021 6:23 AM CLINICAL DIETICIAN Janice Alanis MD CHEMISTRY ORDERAB LES [employer] SERVICES [facility]# [id number] 5 [facility] [place] [id number] * (ABNORMAL) BASIC METABOLIC PANEL (03/20/2021 4:37 AM CLINICAL DIETICIAN) SODIUM 136 136 - 145 mmol/L 03/20/2021 5:16 AM CLINICAL DIETICIAN [employer] SERVICES [facility] POTASSIUM 4.7 3.5 - 5.0 mmol/L 03/20/2021 5:16 AM [facility] [employer] SERVICES - . [facility] CHLORIDE 102 98 - 107 mmol/L 03/20/2021 5:16 AM [facility] [employer] [facility] - . [place] CO2 26 22 - 29 mmol/L 03/20/2021 5:16 AM [facility] [employer] LABORATORY [facility] - . [place] CALCIUM 8.4(L) 8.6 - 10.2 mg/dL 03/20/2021 5:16 AM [facility] [employer] [facility] - . [place] BUN 35(H) 8 - 23 mg/dL 03/20/2021 5:16 AM [facility] [employer] [facility]. [place] CREATININE 0.98(H) 0.51 - 0.95 mg/dL 03/20/2021 5:16 AM [facility] [employer] [facility] - . [facility] GLUCOSE 120(H) 74 - 99 mg/dL 03/20/2021 5:16 AM [facility] [employer] [facility] GFR 57 mL/min/1.7 3 sq meter 03/20/2021 5:16 AM [facility] [employer] [facility] Comment: eGFR has not been validated for [...] result. GFR, >60 mL/min/1.7 3 sq meter 03/20/2021 5:16 AM [facility] [employer] LABORATORY [facility] ANION GAP 8 8 - 16 mmol/L 03/20/2021 5:16 AM [facility] [employer] [facility] Blood Venipuncture / Unknown 03/20/2021 4:37 AM CLINICAL DIETICIAN 03/20/2021 4:45 AM CLINICAL DIETICIAN Tab Jonas MD CHEMISTRY ORDERABLES [facility] [employer] [facility]# [id number] [phone] [facility] [place] [id number] * (ABNORMAL) CBC WITH DIFFERENTIAL (03/20/2021 4:37 AM CLINICAL DIETICIAN) [facility] WBC 12.1(H) 4.0 - 9.8 K/uL 03/20/2021 5:17 AM CLINICAL DIETICIAN [employer] LABORATORY SERVICES - [facility] RBC 4.14 3.90 - 4.90 M/uL 03/20/2021 5:17 AM CLINICAL DIETICIAN [employer] LABORATORY SERVICES - [facility] HEMOGLOBIN 12.5 11.8 - 14.8 g/dL 03/20/2021 5:17 AM CLINICAL DIETICIAN [employer] LABORATORY SERVICES - [facility] HEMATOCRIT 37.9 35.5 - 44.0 % 03/20/2021 5:17 AM CLINICAL DIETICIAN [employer] LABORATORY SERVICES - [facility] MCV 91.5 82.0 - 99.0 fL 03/20/2021 5:17 AM [employer] LABORATORY SERVICES - [facility] MCH 30.2 27.2 - 32.6 pg 03/20/2021 5:17 AM [facility] LABORATORY SERVICES - [facility] MCHC 33.0 31.5 - 35.5 g/dL 03/20/2021 5:17 AM [facility] LABORATORY SERVICES - [facility] RDW 12.7 11.5 - 14.5 % 03/20/2021 5:17 AM [facility] LABORATORY SERVICES - [facility] RDW-STDEV 42.8 37.1 - 48.7 fL 03/20/2021 5:17 AM [facility] LABORATORY SERVICES - [facility] PLATELETS 305 140 - 350 K/uL 03/20/2021 5:17 AM [facility] LABORATORY SERVICES - [facility] MPV 9.4 9.3 - 12.4 fL 03/20/2021 5:17 AM [facility] LABORATORY SERVICES - [facility] NEUTROPHILS 75 % 03/20/2021 5:17 AM CLINICAL DIETICIAN [employer] LABORATORY SERVICES - [facility] LYMPHOCYTES 14 % 03/20/2021 5:17 AM CLINICAL DIETICIAN [employer] LABORATORY SERVICES - [facility] MONOCYTES 9 % 03/20/2021 5:17 AM CLINICAL DIETICIAN [employer] LABORATORY SERVICES - [facility] EOSINOPHILS 0 % 03/20/2021 5:17 AM CLINICAL DIETICIAN [employer] LABORATORY SERVICES - [facility] BASOPHILS 0 % 03/20/2021 5:17 AM CLINICAL DIETICIAN [employer] LABORATORY SERVICES - [facility] IMMATURE GRANULOCYTES 2 % 03/20/2021 5:17 AM CLINICAL DIETICIAN [employer] LABORATORY [facility] Comment:IG (Immature Granulo cyte) count includes Metamyelocytes, Myelocytes, and Promyelocytes NEUTROPHIL ABSOLUTE 9.04(H) 1.90 - 7.00 K/uL 03/20/2021 5:17 AM [facility] LABORATORY [facility]. [facility] LYMPHOCYTE ABSOLUTE 1.73 0.70 - 4.50 K/uL 03/20/2021 5:17 AM [facility] LABORATORY [facility] - . [facility] MONOCYTE ABSOLUTE 1.03 0.10 - 1.30 K/uL 03/20/2021 5:17 AM [facility] LABORATORY SERVICES - . [facility] EOSINOPHIL ABSOLUTE 0.01 0.00 - 0.70 K/uL 03/20/2021 5:17 AM [facility] LABORATORY SERVICES - . [facility] BASOPHILS ABSOLUTE 0.02 0.00 - 0.20 K/uL 03/20/2021 5:17 AM [facility] LABORATORY [facility]. [facility] IMMATURE GRANULOCYTES ABSOLUTE 0.26(H) 0.00 - 0.03 K/uL 03/20/2021 5:17 AM [facility] LABORATORY [facility] Blood Venipuncture / Unknown 03/20/2021 4:37 AM CLINICAL DIETICIAN 03/20/2021 4:45 AM CLINICAL DIETICIAN Tab Jonas MD HEMATOLOGY ORDERABLE S [facility] CLIA# [id number] [address] [facility] [place] [address] * MAGNESIUM LEVEL (03/20/2021 4:37 AM CLINICAL DIETICIAN) MAGNESIUM 2.3 1.6 - 2.4 mg/dL 03/20/2021 5:16 AM CLINICAL DIETICIAN [facility] LABORATORY [facility] Blood Venipuncture / Unknown 03/20/2021 4:37 AM CLINICAL DIETICIAN 03/20/2021 4:45 AM CLINICAL DIETICIAN Janice Alanis MD CHEMISTRY ORDERAB LES [facility] CLIA# [id number] [address] [facility] [place] [id number] * (ABNORMAL) RENAL FUNCTION PANEL (03/20/2021 4:37 AM CLINICAL DIETICIAN) SODIUM 136 136 - 145 mmol/L 03/20/2021 5:16 AM CLINICAL DIETICIAN [employer] LABORATORY SERVICES - . [place] POTASSIUM 4.7 3.5 - 5.0 mmol/L 03/20/2021 5:16 AM [facility] LABORATORY SERVICES - [facility] CHLORIDE 102 98 - 107 mmol/L 03/20/2021 5:16 AM [facility] LABORATORY SERVICES - [facility] CO2 26 22 - 29 mmol/L 03/20/2021 5:16 AM [facility] LABORATORY SERVICES - . [place] CALCIUM 8.4(L) 8.6 - 10.2 mg/dL 03/20/2021 5:16 AM CLINICAL DIETICIAN [employer] LABORATORY SERVICES - . [place] BUN 35(H) 8 - 23 mg/dL 03/20/2021 5:16 AM [facility] LABORATORY SERVICES - . [place] CREATININE 0.98(H) 0.51 - 0.95 mg/dL 03/20/2021 5:16 AM [facility] LABORATORY SERVICES - . [place] GLUCOSE 120(H) 74 - 99 mg/dL 03/20/2021 5:16 AM [facility] LABORATORY SERVICES - . [place] ALBUMIN 3.1(L) 3.5 - 5.2 g/dL 03/20/2021 5:16 AM [facility] LABORATORY SERVICES - . [place] PHOSPHORUS 3.1 2.5 - 4.5 mg/dL 03/20/2021 5:16 AM [facility] LABORATORY SERVICES - . [place] GFR 57 mL/min/1.7 3 sq meter 03/20/2021 5:16 AM [facility] LABORATORY SERVICES - . [place] Comment: eGFR [...] result. GFR, >60 mL/min/1.7 3 sq meter 03/20/2021 5:16 AM [facility] [employer] LABORATORY SERVICES - . [facility] ANION GAP 8 8 - 16 mmol/L 03/20/2021 5:16 AM [facility] [employer] [facility] - [facility] Blood Venipuncture / Unknown 03/20/2021 4:37 AM CLINICAL DIETICIAN 03/20/2021 4:45 AM CLINICAL DIETICIAN Janice Alanis MD CHEMISTRY ORDERAB LES [employer] [facility] CLIA# [id number] 5 SRomana YAO [place] [id number] * (ABNORMAL) CBC WITH DIFFERENTIAL (03/19/2021 5:32 AM CLINICAL DIETICIAN) WBC 6.0 4.0 - 9.8 K/uL 03/19/2021 6:23 AM [facility] [employer] [facility] - [facility] RBC 3.83(L) 3.90 - 4.90 M/uL 03/19/2021 6:23 AM [facility] [employer] [facility] - . [facility] HEMOGLOBIN 11.3(L) 11.8 - 14.8 g/dL 03/19/2021 6:23 AM [facility] [employer] [facility] - . [facility] HEMATOCRIT 35.1(L) 35.5 - 44.0 % 03/19/2021 6:23 AM [facility] - . [facility] MCV 91.6 82.0 - 99.0 fL 03/19/2021 6:23 AM [facility] - . [facility] MCH 29.5 27.2 - 32.6 pg 03/19/2021 6:23 AM [facility] - . [facility] MCHC 32.2 31.5 - 35.5 g/dL 03/19/2021 6:23 AM CLINICAL DIETICIAN [employer] [facility] - . [facility] RDW 12.5 11.5 - 14.5 % 03/19/2021 6:23 AM [facility] - [facility] RDW-STDEV 42.0 37.1 - 48.7 fL 03/19/2021 6:23 AM [facility] [employer] [facility] - . [facility] PLATELETS 222 140 - 350 K/uL 03/19/2021 6:23 AM [facility] [employer] [facility] - . [place] MPV 9.6 9.3 - 12.4 fL 03/19/2021 6:23 AM [facility] [employer] [facility] - [facility] NEUTROPHILS 77 % 03/19/2021 6:23 AM [facility] [employer] [facility] - . [place] LYMPHOCYTES 14 % 03/19/2021 6:23 AM CLINICAL DIETICIAN [employer] [facility] - [facility] MONOCYTES 7 % 03/19/2021 6:23 AM CLINICAL DIETICIAN [employer] [facility] - [facility] [place] EOSINOPHILS 0 % 03/19/2021 6:23 AM CLINICAL DIETICIAN [employer] [facility] - . [place] BASOPHILS 0 % 03/19/2021 6:23 AM [facility] [employer] [facility] - . [facility] IMMATURE GRANULOCYTES 2 % 03/19/2021 6:23 AM CLINICAL DIETICIAN [employer] [facility] - . [facility] Comment:IG (Immature Granulo cyte) count includes Metamyelocytes, Myelocytes, and Promyelocytes NEUTROPHIL ABSOLUTE 4.68 1.90 - 7.00 K/uL 03/19/2021 6:23 AM [facility] [employer] [facility]. [facility] LYMPHOCYTE ABSOLUTE 0.85 0.70 - 4.50 K/uL 03/19/2021 6:23 AM [facility] [employer] [facility]. [facility] MONOCYTE ABSOLUTE 0.39 0.10 - 1.30 K/uL 03/19/2021 6:23 AM CLINICAL DIETICIAN [employer] [facility]. [facility] EOSINOPHIL ABSOLUTE 0.00 0.00 - 0.70 K/uL 03/19/2021 6:23 AM CLINICAL DIETICIAN [employer] [facility]. [place] BASOPHILS ABSOLUTE 0.01 0.00 - 0.20 K/uL 03/19/2021 6:23 AM [employer] [facility]. [facility] IMMATURE GRANULOCYTES ABSOLUTE 0.11(H) 0.00 - 0.03 K/uL 03/19/2021 6:23 AM [facility] [employer] [facility]. [facility] Blood Venipuncture / Unknown 03/19/2021 5:32 AM CLINICAL DIETICIAN 03/19/2021 6:11 AM CLINICAL DIETICIAN Tab Jonas MD HEMATOLOGY ORDERABLE [facility] [facility] [employer] [facility] CLIA# [id number] [address] [place] [address] * MAGNESIUM LEVEL (03/19/2021 5:32 AM CLINICAL DIETICIAN) MAGNESIUM 2.2 1.6 - 2.4 mg/dL 03/19/2021 6:48 AM [facility] [employer] LABORATORY SERVICES [facility] Blood Venipuncture / Unknown 03/19/2021 5:32 AM CLINICAL DIETICIAN 03/19/2021 6:11 AM CLINICAL DIETICIAN Janice Alanis MD CHEMISTRY ORDERAB LES Performing Organization Address [facility]/ZIP Co de Phone Number [employer] [facility] CLPRIETO# [id number] [address] [place] [address] * (ABNORMAL) RENAL FUNCTION PANEL (03/19/2021 5:32 AM CLINICAL DIETICIAN) SODIUM 136 136 - 145 mmol/L 03/19/2021 6:48 AM CLINICAL DIETICIAN [employer] LABORATORY SERVICES - . [facility] POTASSIUM 4.2 3.5 - 5.0 mmol/L 03/19/2021 6:48 AM CLINICAL DIETICIAN [employer] LABORATORY SERVICES - [facility] CHLORIDE 101 98 - 107 mmol/L 03/19/2021 6:48 AM CLINICAL DIETICIAN [employer] LABORATORY SERVICES - [facility] CO2 24 22 - 29 mmol/L 03/19/2021 6:48 AM CLINICAL DIETICIAN [employer] LABORATORY SERVICES - [facility] CALCIUM 8.4(L) 8.6 - 10.2 mg/dL 03/19/2021 6:48 AM CLINICAL DIETICIAN [employer] LABORATORY SERVICES - [facility] BUN 28(H) 8 - 23 mg/dL 03/19/2021 6:48 AM CLINICAL DIETICIAN [employer] LABORATORY SERVICES - [facility] CREATININE 0.84 0.51 - 0.95 mg/dL 03/19/2021 6:48 AM CLINICAL DIETICIAN [employer] LABORATORY SERVICES - [facility] GLUCOSE 134(H) 74 - 99 mg/dL 03/19/2021 6:48 AM CLINICAL DIETICIAN [employer] LABORATORY SERVICES - [facility] ALBUMIN 3.1(L) 3.5 - 5.2 g/dL 03/19/2021 6:48 AM [facility] [employer] [facility] PHOSPHORUS 3.3 2.5 - 4.5 mg/dL 03/19/2021 6:48 AM [facility] LABORATORY [facility] GFR >60 mL/min/1.7 3 sq meter 03/19/2021 6:48 AM [facility] LABORATORY SERVICES - [facility] Comment: eGFR has not been validated for [...] result. GFR, >60 mL/min/1.7 3 sq meter 03/19/2021 6:48 AM [facility] LABORATORY SERVICES [facility] ANION GAP 11 8 - 16 mmol/L 03/19/2021 6:48 AM [facility] [employer] [facility] Blood Venipuncture / Unknown 03/19/2021 5:32 AM CLINICAL DIETICIAN 03/19/2021 6:11 AM CLINICAL DIETICIAN Janice Alanis MD CHEMISTRY ORDERAB LES [facility] [employer] [facility]# [id number] [address] [place] [id number] * (ABNORMAL) CBC WITH DIFFERENTIAL (03/18/2021 4:34 AM CLINICAL DIETICIAN) WBC 8.7 4.0 - 9.8 K/uL 03/18/2021 5:32 AM [facility] [employer] [facility] RBC 4.13 3.90 - 4.90 M/uL 03/18/2021 5:32 AM [facility] [employer] [facility] HEMOGLOBIN 12.2 11.8 - 14.8 g/dL 03/18/2021 5:32 AM [employer] LABORATORY SERVICES - [facility] HEMATOCRIT 38.4 35.5 - 44.0 % 03/18/2021 5:32 AM [facility]ORY SERVICES - [facility] MCV 93.0 82.0 - 99.0 fL 03/18/2021 5:32 AM [facility] - [facility] MCH 29.5 27.2 - 32.6 pg 03/18/2021 5:32 AM [facility] - [facility] MCHC 31.8 31.5 - 35.5 g/dL 03/18/2021 5:32 AM [facility]ATORY SERVICES - [facility] RDW 12.6 11.5 - 14.5 % 03/18/2021 5:32 AM [facility] - [facility] RDW-STDEV 42.8 37.1 - 48.7 fL 03/18/2021 5:32 AM [facility] LABORATORY SERVICES - . [facility] PLATELETS 280 140 - 350 K/uL 03/18/2021 5:32 AM [facility] - [facility] MPV 9.7 9.3 - 12.4 fL 03/18/2021 5:32 AM [facility] - [facility] NEUTROPHILS 87 % 03/18/2021 5:32 AM [facility] - [facility] LYMPHOCYTES 9 % 03/18/2021 5:32 AM [facility] - [facility] MONOCYTES 3 % 03/18/2021 5:32 AM [facility] - [facility] EOSINOPHILS 0 % 03/18/2021 5:32 AM [facility] - [facility] BASOPHILS 0 % 03/18/2021 5:32 AM [facility] - [facility] IMMATURE GRANULOCYTES 1 % 03/18/2021 5:32 AM [facility] - [facility] Comment:IG (Immature Granulo cyte) count includes Metamyelocytes, Myelocytes, and Promyelocytes NEUTROPHIL ABSOLUTE 7.52(H) 1.90 - 7.00 K/uL 03/18/2021 5:32 AM [facility] - [facility] LYMPHOCYTE ABSOLUTE 0.79 0.70 - 4.50 K/uL 03/18/2021 5:32 AM [facility] - [facility] MONOCYTE ABSOLUTE 0.28 0.10 - 1.30 K/uL 03/18/2021 5:32 AM CLINICAL DIETICIAN [employer] LABORATORY SERVICES - [facility] EOSINOPHIL ABSOLUTE 0.00 0.00 - 0.70 K/uL 03/18/2021 5:32 AM CLINICAL DIETICIAN [employer] LABORATORY SERVICES - [facility] BASOPHILS ABSOLUTE 0.01 0.00 - 0.20 K/uL 03/18/2021 5:32 AM CLINICAL DIETICIAN [employer] LABORATORY SERVICES - [facility] IMMATURE GRANULOCYTES ABSOLUTE 0.08(H) 0.00 - 0.03 K/uL 03/18/2021 5:32 AM CLINICAL DIETICIAN [employer] LABORATORY SERVICES - . [facility] Blood Venipuncture / Unknown 03/18/2021 4:34 AM CLINICAL DIETICIAN 03/18/2021 4:57 AM CLINICAL DIETICIAN Tba Jonas MD HEMATOLOGY ORDERABLE S Performing Organization Address City/[facility]/ZIP Co de Phone Number [facility] LABORATORY [facility] CLIA# [id number] [address] [place] [address] * MAGNESIUM LEVEL (03/18/2021 4:34 AM CLINICAL DIETICIAN) MAGNESIUM 2.3 1.6 - 2.4 mg/dL 03/18/2021 5:43 AM CLINICAL DIETICIAN [employer] LABORATORY SERVICES - [facility] Blood Venipuncture / Unknown 03/18/2021 4:34 AM CLINICAL DIETICIAN 03/18/2021 4:55 AM CLINICAL DIETICIAN Janice Alanis MD CHEMISTRY ORDERAB LES [facility] [employer] [facility] CLIA# [id number] [address] [place] [address] * (ABNORMAL) RENAL FUNCTION PANEL (03/18/2021 4:34 AM CLINICAL DIETICIAN) SODIUM 138 136 - 145 mmol/L 03/18/2021 5:43 AM CLINICAL DIETICIAN [employer] LABORATORY SERVICES [facility] POTASSIUM 4.3 3.5 - 5.0 mmol/L 03/18/2021 5:43 AM CLINICAL DIETICIAN [employer] LABORATORY SERVICES - [facility] CHLORIDE 104 98 - 107 mmol/L 03/18/2021 5:43 AM CLINICAL DIETICIAN [employer] LABORATORY SERVICES - [facility] CO2 23 22 - 29 mmol/L 03/18/2021 5:43 AM [facility] [employer] LABORATORY SERVICES - [facility] CALCIUM 8.7 8.6 - 10.2 mg/dL 03/18/2021 5:43 AM [facility] [employer] LABORATORY SERVICES - [facility] BUN 24(H) 8 - 23 mg/dL 03/18/2021 5:43 AM [facility] [employer] LABORATORY SERVICES - [facility] CREATININE 0.90 0.51 - 0.95 mg/dL 03/18/2021 5:43 AM [facility] LABORATORY SERVICES - [facility] GLUCOSE 146(H) 74 - 99 mg/dL 03/18/2021 5:43 AM CLINICAL DIETICIAN [employer] LABORATORY SERVICES - [facility] ALBUMIN 3.4(L) 3.5 - 5.2 g/dL 03/18/2021 5:43 AM [facility] LABORATORY SERVICES - [facility] PHOSPHORUS 2.9 2.5 - 4.5 mg/dL 03/18/2021 5:43 AM [facility] LABORATORY SERVICES - . [facility] GFR >60 mL/min/1.7 3 sq meter 03/18/2021 5:43 AM [facility] LABORATORY SERVICES - . [facility] Comment: eGFR [...] result. GFR, >60 mL/min/1.7 3 sq meter 03/18/2021 5:43 AM [facility] LABORATORY SERVICES - . [facility] ANION GAP 11 8 - 16 mmol/L 03/18/2021 5:43 AM CLINICAL DIETICIAN [employer] LABORATORY SERVICES - . [facility] Blood Venipuncture / Unknown 03/18/2021 4:34 AM CLINICAL DIETICIAN 03/18/2021 4:55 AM CLINICAL DIETICIAN Janice Alanis MD CHEMISTRY ORDERAB LES [facility] [employer] [facility]# [id number] [place] [address] * (ABNORMAL) BASIC METABOLIC PANEL (03/18/2021 12:25 AM CLINICAL DIETICIAN) SODIUM 138 136 - 145 mmol/L 03/18/2021 1:04 AM [facility] [employer] [facility] - . [facility] POTASSIUM 4.2 3.5 - 5.0 mmol/L 03/18/2021 1:04 AM [facility] [employer] [facility] - . [facility] CHLORIDE 104 98 - 107 mmol/L 03/18/2021 1:04 AM [facility] [employer] [facility] [place] CO2 22 22 - 29 mmol/L 03/18/2021 1:04 AM [facility] [employer] [facility]. [facility] CALCIUM 8.6 8.6 - 10.2 mg/dL 03/18/2021 1:04 AM [facility]. [facility] BUN 24(H) 8 - 23 mg/dL 03/18/2021 1:04 AM [facility] [employer] [facility]. [facility] CREATININE 0.82 0.51 - 0.95 mg/dL 03/18/2021 1:04 AM [facility] [employer] [facility]. [facility] GLUCOSE 164(H) 74 - 99 mg/dL 03/18/2021 1:04 AM [facility] [employer] [facility] GFR >60 mL/min/1.7 3 sq meter 03/18/2021 1:04 AM [facility] [employer] [facility] Comment: eGFR has not been validated for [...] result. GFR, >60 mL/min/1.7 3 sq meter 03/18/2021 1:04 AM CLINICAL DIETICIAN [facility] ANION GAP 12 8 - 16 mmol/L 03/18/2021 1:04 AM CLINICAL DIETICIAN [facility] Blood Venipuncture / Unknown 03/18/2021 12:25 AM CLINICAL DIETICIAN 03/18/2021 12:28 AM CLINICAL DIETICIAN Jocelin Goins MD CHEMISTRY ORDERABLE S Performing Organization Address [facility]/State/ZIP Co de Phone Number [facility] CLIA# [id number] [address] [place] [place] [address] * EKG 12-LEAD (03/17/2021 7:05 PM CLINICAL DIETICIAN) 03/17/2021 7:05 PM CLINICAL DIETICIAN Narrative INTERFACE SYSTEM - 03/18/2021 8:08 AM CLINICAL DIETICIAN ? Stationary ECG Study ? [facility] ? Test Date: ?03/17/2021 7:05 PM Pat Name: ? VICK TANNER ? Department: ?? 45 ?Room: ? 474F 6 Gender: ? F ?Nursing Consultant: ?? earle2 : ?1955 ? Requested By: KATHERIN PATTON R Order Number: [id number] ?Reading MD: ?? Bhupinder Morales ? Measurements Intervals ?Points ? Rate: ? 63 ? P: ?53 AK: ? 165 ?QRS: ?15 QRSD: ? 96 ? T: ?22 QT: ? 433 ? QTc: ?444 ? Interpretive Statements ? Sinus rhythm Ventricular premature complex Left atrial enlargement Low voltage, precordial leads PRWP Electronically Signed On 03-18-2021 8:08:07 CLINICAL DIETICIAN by Bhupinder Morales Procedure Note Bhupinder Morales MD - 03/18/2021 Stationary ECG Study [facility] Test Date: 03/17/2021 7:05 PM Pat Name: VICK TANNER Department: 45 Room: [facility] Gender: F Nursing Consultant: earlebony : 1955 Requested By: KATHERIN Lindsay Order Number: [id number] Reading MD: Bhupinder Morales Measurements Intervals Points Rate: 63 P: 53 AK: 165 QRS: 15 QRSD: 96 T: 22 QT: 433 QTc: 444 Interpretive Statements Sinus rhythm Ventricular premature complex Left atrial enlargement Low voltage, precordial leads PRWP Electronically Signed On 03-18-2021 8:08:07 CLINICAL DIETICIAN by Bhupinder Morales Jeanne Hemphill MD ECG ORDERABLES INTERFACE SYSTEM Refer to clinic/hospital department * POC GLUCOSE (03/17/2021 6:11 PM CLINICAL DIETICIAN) GLUCOSE POC 97 74 - 99 mg/dL 03/17/2021 6:11 PM CLINICAL DIETICIAN [facility] LABORATORY [facility] SPECIMEN SOURCE, GLUCOSE POC Whole Blood 03/17/2021 6:11 PM CLINICAL DIETICIAN [facility] LABORATORY [facility] DIRECTOR ONLINE MARKETING NAME POC ROSEANNA CASTRO 03/17/2021 6:11 PM CLINICAL DIETICIAN [facility] LABORATORY [facility] Blood, whole 03/17/2021 6:11 PM CLINICAL DIETICIAN 03/17/2021 6:24 PM CLINICAL DIETICIAN Silvestre Levine DO POINT OF CARE TESTIN G Performing Organization Address [facility]/ZIP Co de Phone Number [facility] CLIA# [id number] [address] [place] [address] * XR CHEST PA OR AP 1 VW (03/17/2021 5:15 PM CLINICAL DIETICIAN) Anatomical Region Laterality Modality Chest Computed Radiogr aphy 03/17/2021 5:15 PM CLINICAL DIETICIAN Impressions 03/17/2021 5:31 PM CLINICAL DIETICIAN IMPRESSION: Left subclavian catheter terminates in the SVC. No pneumothorax. No focal consolidation.. DICTATION LOCATION: Location [address] [place] [address] 03/17/2021 5:31 PM CLINICAL DIETICIAN EXAMINATION: XR CHEST PA OR AP 1 VW ?? HISTORY: Line Placement; Encounter for blood typing; Cervical spondylosis with radiculopathy ?? DATE: 03/17/2021 5:15 PM COMPARISON: No prior study is available for comparison. FINDINGS: ?? Left subclavian approach central venous catheter terminates in the SVC. Lungs are well-inflated. No focal consolidation or pneumothorax. Minimal blunting of the costophrenic angles may relate to small effusions or basilar scarring. The cardiomediastinal silhouette is normal for portable technique. INCIDENTAL FINDINGS: ??None. Procedure Note Ren Sorto, DO - 03/17/2021 EXAMINATION: XR CHEST PA OR AP 1 VW HISTORY: Line Placement; Encounter for blood typing; Cervical spondylosis with radiculopathy DATE: 03/17/2021 5:15 PM COMPARISON: No prior study is available for comparison. FINDINGS: Left subclavian approach central venous catheter terminates in the SVC. Lungs are well-inflated. No focal consolidation or pneumothorax. Minimal blunting of the costophrenic angles may relate to small effusions or basilar scarring. The cardiomediastinal silhouette is normal for portable technique. INCIDENTAL FINDINGS: None. IMPRESSION: Left subclavian catheter terminates in the SVC. No pneumothorax. No focal consolidation.. DICTATION LOCATION: Location [address] [place] [address] Jocelin Goins MD DIAGNOSTIC IMAGING ORDERABLES * (ABNORMAL) BASIC METABOLIC PANEL (03/17/2021 4:39 PM CLINICAL DIETICIAN) [facility] SODIUM 139 136 - 145 mmol/L 03/17/2021 5:37 PM CLINICAL DIETICIAN [facility] LABORATORY SERVICES [facility] POTASSIUM 4.3 3.5 - 5.0 mmol/L 03/17/2021 5:37 PM CLINICAL DIETICIAN [employer] LABORATORY SERVICES - [facility] CHLORIDE 105 98 - 107 mmol/L 03/17/2021 5:37 PM [facility] [employer] LABORATORY SERVICES - [facility] CO2 25 22 - 29 mmol/L 03/17/2021 5:37 PM [facility] [employer] LABORATORY SERVICES - . [place] CALCIUM 8.5(L) 8.6 - 10.2 mg/dL 03/17/2021 5:37 PM [facility] [employer] LABORATORY SERVICES - [facility] BUN 22 8 - 23 mg/dL 03/17/2021 5:37 PM [facility] - [facility] [place] CREATININE 0.70 0.51 - 0.95 mg/dL 03/17/2021 5:37 PM CLINICAL DIETICIAN [employer] LABORATORY SERVICES - [facility] GLUCOSE 89 74 - 99 mg/dL 03/17/2021 5:37 PM [facility] [employer] LABORATORY SERVICES - . [facility] GFR >60 mL/min/1.7 3 sq meter 03/17/2021 5:37 PM [facility] [employer] LABORATORY SERVICES - [facility] Comment: eGFR has not been validated for [...] result. GFR, >60 mL/min/1.7 3 sq meter 03/17/2021 5:37 PM CLINICAL DIETICIAN [employer] LABORATORY SERVICES - [facility] ANION GAP 9 8 - 16 mmol/L 03/17/2021 5:37 PM [facility] [employer] LABORATORY SERVICES - . [facility] Blood Venipuncture / Unknown 03/17/2021 4:39 PM CLINICAL DIETICIAN 03/17/2021 4:42 PM CLINICAL DIETICIAN Jocelin Goins MD CHEMISTRY ORDERABLE S [employer] SERVICES [facility] CLIA# [id number] [address] [place] [address] * CT CERVICAL THORACIC WITH CONTRAST (03/17/2021 3:45 PM CLINICAL DIETICIAN) Anatomical Region Laterality Modality Spine Computed Tomogra phy 03/17/2021 3:45 PM CLINICAL DIETICIAN Impressions 03/17/2021 6:07 PM CLINICAL DIETICIAN IMPRESSION: Status post anterior cervical discectomy and fusion C4-5 and C5-6 level. Osteophytic encroachment on the right at C4-5 and on the left C5-6 level where there is some coexisting disc material. CSF still seen ventral and dorsal to the spinal cord. Thoracic spine CT post myelography: Patient is noted to be status post laminectomy at the T2-3 level. Prominent dorsal osteophyte formation is seen at T2-3 level encroaching on spinal canal. This is dorsally displacing the thecal sac and compressing cord slightly. There is still CSF dorsal to the cord throughout this level. Small right T3-4 calcified disc herniation is noted. Left T5-6 calcified disc herniation is noted left T7-8 disc herniation is noted with spurs indenting thecal sac and contacting spinal cord. IMPRESSION: Status post T2-3 laminectomy. Posterior displacement of spinal canal with mild ventral indentation on thecal sac. Left T7-8 disc herniation and spurs encroaching on thecal sac. ?? Patient was scanned with iterative reconstruction to minimize radiation dose. Report called to Dr. Booth at 1600 hours. ?? DICTATION LOCATION: Location 1 - [facility] ?? Narrative 03/17/2021 6:07 PM CLINICAL DIETICIAN POST MYELOGRAM CT OF CERVICAL AND THORACIC SPINE DATE: 03/17/2021 HISTORY: Spinal cord injury s/p ACDF and L2-3 decompression. FINDINGS: Cervical spine: Craniocervical junction is normal. Occipital condyles are intact. C1 level canal is normal in AP diameter. C2 level canal is normal in AP diameter. C2-3 shows no disc herniation or stenosis. C3 level is normal in AP diameter. C3-4 shows no disc herniation or stenosis. Facet joint hypertrophy is present. C4 level canal is normal in AP diameter. C4-5 has osteophytic ridging. There is mild ventral encroachment on the right half of spinal canal by osteophytes. C5 level canal is normal in AP diameter. C5-6 has prominent osteophytes on the left encroaching on spinal canal. These are indenting ventral aspect of spinal cord. There is some disc herniation associated with this. There is still CSF ventral and dorsal to the spinal cord. C6 level is normal in AP diameter. C6-7 is widely patent. C7 level is normal. C7-T1 shows no disc herniation or stenosis. Procedure Note Cliff Seaman MD - 03/17/[address] OF CERVICAL AND THORACIC SPINE DATE: 03/17/2021 HISTORY: Spinal cord injury s/p ACDF and L2-3 decompression. FINDINGS: Cervical spine: Craniocervical junction is normal. Occipital condyles are intact. C1 level canal is normal in AP diameter. C2 level canal is normal in AP diameter. C2-3 shows no disc herniation or stenosis. C3 level is normal in AP diameter. C3-4 shows no disc herniation or stenosis. Facet joint hypertrophy is present. C4 level canal is normal in AP diameter. C4-5 has osteophytic ridging. There is mild ventral encroachment on the right half of spinal canal by osteophytes. C5 level canal is normal in AP diameter. C5-6 has prominent osteophytes on the left encroaching on spinal canal. These are indenting ventral aspect of spinal cord. There is some disc herniation associated with this. There is still CSF ventral and dorsal to the spinal cord. C6 level is normal in AP diameter. C6-7 is widely patent. C7 level is normal. C7-T1 shows no disc herniation or stenosis. IMPRESSION: Status post anterior cervical discectomy and fusion C4-5 and C5-6 level. Osteophytic encroachment on the right at C4-5 and on the left C5-6 level where there is some coexisting disc material. CSF still seen ventral and dorsal to the spinal cord. Thoracic spine CT post myelography: Patient is noted to be status post laminectomy at the T2-3 level. Prominent dorsal osteophyte formation is seen at T2-3 level encroaching on spinal canal. This is dorsally displacing the thecal sac and compressing cord slightly. There is still CSF dorsal to the cord throughout this level. Small right T3-4 calcified disc herniation is noted. Left T5-6 calcified disc herniation is noted left T7-8 disc herniation is noted with spurs indenting thecal sac and contacting spinal cord. IMPRESSION: Status post T2-3 laminectomy. Posterior displacement of spinal canal with mild ventral indentation on thecal sac. Left T7-8 disc herniation and spurs encroaching on thecal sac. Patient was scanned with iterative reconstruction to minimize radiation dose. Report called to Dr. Booth at 1600 hours. DICTATION LOCATION: Location 1 - [facility] [address] CT ORDERABLES * XR MYELOGRAM 2 OR MORE REGIONS (03/17/2021 3:16 PM CLINICAL DIETICIAN) Anatomical Region Laterality Modality Spine Computed Radiogr aphy 03/17/2021 3:19 PM CLINICAL DIETICIAN Narrative 03/17/2021 6:07 PM CLINICAL DIETICIAN PROCEDURE NOTE CERVICAL THORACIC MYELOGRAM VIA LUMBAR 03/17/2021 SURGEON: Cliff Seaman M.D. Anesthetic: 1% lidocaine local, 4.2% sterile sodium bicarbonate solution Premedication: Patient was given a combination of IV Zofran, Dilaudid Zanaflex and Percocet prior to and during study. Patient was accompanied by ICU nurses for the procedure. PROCEDURE: Patient was placed prone on the fluoroscopic table. The back was aseptically prepped and draped in usual manner. Local anesthetic was infiltrated at the L2-3 interlaminar space. 22-gauge spinal needle was directed into the subarachnoid space. 11 cc of a 20 cc volume of Isovue-200 M myelographic contrast were instilled under fluoroscopic guidance. Needle was removed. Patient was attached table with booties and shoulder rests. Patient was turned into Trendelenburg position. Spot radiographs were obtained in thoracic and cervical region as well as overhead radiographs and cervical region. Patient was taken for immediate prone and supine post myelogram CTs. Patient tolerated procedure well without any immediate complications. She was returned to floor in unchanged condition. THORACIC CERVICAL MYELOGRAM INTERPRETATION: Contrast material flows readily through the thoracic region. There is some obscuration in the upper thoracic region on the lateral view but no block is seen. Cervical region shows plate and screws are in place C4-5 and C5-6 levels. See post myelogram CT exam. Fluoroscopy time: 1.1 minutes Dose: 128.30 ?? MYELOGRAM INTERPRETATION: Contrast opacification is adequate in thoracic and cervical region for CT scan. Please see the studies. ?? Dictation location one [facility] Procedure Note Cliff Seaman MD - 03/17/2021 PROCEDURE NOTE CERVICAL THORACIC MYELOGRAM VIA LUMBAR 03/17/2021 SURGEON: Cliff Seaman M.D. Anesthetic: 1% lidocaine local, 4.2% sterile sodium bicarbonate solution Premedication: Patient was given a combination of IV Zofran, Dilaudid Zanaflex and Percocet prior to and during study. Patient was accompanied by ICU nurses for the procedure. PROCEDURE: Patient was placed prone on the fluoroscopic table. The back was aseptically prepped and draped in usual manner. Local anesthetic was infiltrated at the L2-3 interlaminar space. 22-gauge spinal needle was directed into the subarachnoid space. 11 cc of a 20 cc volume of Isovue-200 M myelographic contrast were instilled under fluoroscopic guidance. Needle was removed. Patient was attached table with booties and shoulder rests. Patient was turned into Trendelenburg position. Spot radiographs were obtained in thoracic and cervical region as well as overhead radiographs and cervical region. Patient was taken for immediate prone and supine post myelogram CTs. Patient tolerated procedure well without any immediate complications. She was returned to floor in unchanged condition. THORACIC CERVICAL MYELOGRAM INTERPRETATION: Contrast material flows readily through the thoracic region. There is some obscuration in the upper thoracic region on the lateral view but no block is seen. Cervical region shows plate and screws are in place C4-5 and C5-6 levels. See post myelogram CT exam. Fluoroscopy time: 1.1 minutes Dose: 128.30 MYELOGRAM INTERPRETATION: Contrast opacification is adequate in thoracic and cervical region for CT scan. Please see the studies. Dictation location one [facility] DIAGNOST[facility] IMAGING ORDERABLES * (ABNORMAL) POC GLUCOSE (03/17/2021 1:11 PM CLINICAL DIETICIAN) GLUCOSE POC 137(H) 74 - 99 mg/dL 03/17/2021 1:11 PM CLINICAL DIETICIAN [facility] LABORATORY [facility] SPECIMEN SOURCE, GLUCOSE POC Whole Blood 03/17/2021 1:11 PM CLINICAL DIETICIAN [facility] LABORATORY [facility] DIRECTOR ONLINE MARKETING NAME POC ADRIANA DISLA 03/17/2021 1:11 PM CLINICAL DIETICIAN [employer] LABORATORY SERVICES - [facility] Blood, whole 03/17/2021 1:11 PM CLINICAL DIETICIAN 03/17/2021 1:20 PM CLINICAL DIETICIAN Silvestre K Julianna DO POINT OF CARE TESTIN G [facility] [employer] [facility] CLIA# [id number] [address] [place] [address] * (ABNORMAL) POC GLUCOSE (03/17/2021 10:28 AM CLINICAL DIETICIAN) GLUCOSE POC 182(H) 74 - 99 mg/dL 03/17/2021 10:28 AM [facility] [employer] [facility] SPECIMEN SOURCE, GLUCOSE POC Whole Blood 03/17/2021 10:28 AM [facility] [employer] LABORATORY SERVICES [facility] DIRECTOR ONLINE MARKETING NAME POC OSMANI SHARMAY 03/17/2021 10:28 AM CLINICAL DIETICIAN [employer] SERVICES [facility] Blood, whole 03/17/2021 10:2 8 AM CLINICAL DIETICIAN 03/17/2021 10:36 AM CLINICAL DIETICIAN Lalit Ortiz DO POINT OF CARE TEST ING [facility] [employer] [facility] CLIA# [id number] [address] [place] [address] * (ABNORMAL) BASIC METABOLIC PANEL (03/17/2021 8:24 AM CLINICAL DIETICIAN) SODIUM 138 136 - 145 mmol/L 03/17/2021 9:01 AM CLINICAL DIETICIAN [employer] LABORATORY SERVICES - [facility] POTASSIUM 4.1 3.5 - 5.0 mmol/L 03/17/2021 9:01 AM CLINICAL DIETICIAN [employer] LABORATORY SERVICES - . [facility] CHLORIDE 104 98 - 107 mmol/L 03/17/2021 9:01 AM CLINICAL DIETICIAN [employer] LABORATORY SERVICES - . [facility] CO2 23 22 - 29 mmol/L 03/17/2021 9:01 AM CLINICAL DIETICIAN [employer] LABORATORY SERVICES - [facility] CALCIUM 8.5(L) 8.6 - 10.2 mg/dL 03/17/2021 9:01 AM [facility] [employer] [facility] BUN 24(H) 8 - 23 mg/dL 03/17/2021 9:01 AM [facility] [employer] [facility] CREATININE 0.78 0.51 - 0.95 mg/dL 03/17/2021 9:01 AM [facility] [employer] [facility] GLUCOSE 127(H) 74 - 99 mg/dL 03/17/2021 9:01 AM [facility] [employer] [facility] GFR >60 mL/min/1.7 3 sq meter 03/17/2021 9:01 AM [facility] Comment: eGFR has not been validated for [...] result. GFR, >60 mL/min/1.7 3 sq meter 03/17/2021 9:01 AM [facility] [employer] [facility] ANION GAP 11 8 - 16 mmol/L 03/17/2021 9:01 AM [facility] [employer] [facility] Blood Venipuncture / Unknown 03/17/2021 8:24 AM CLINICAL DIETICIAN 03/17/2021 8:29 AM CLINICAL DIETICIAN Jocelin Goins MD CHEMISTRY ORDERABLE S [facility] [employer] [facility]# [id number] [address] [place] [address] * (ABNORMAL) CBC WITH DIFFERENTIAL (03/17/2021 4:27 AM CLINICAL DIETICIAN) WBC 7.5 4.0 - 9.8 K/uL 03/17/2021 5:11 AM CLINICAL DIETICIAN [facility] RBC 3.71(L) 3.90 - 4.90 M/uL 03/17/2021 5:11 AM [facility] SERVICES - [facility] HEMOGLOBIN 10.7(L) 11.8 - 14.8 g/dL 03/17/2021 5:11 AM [facility] - [facility] HEMATOCRIT 34.0(L) 35.5 - 44.0 % 03/17/2021 5:11 AM [facility] - [facility] MCV 91.6 82.0 - 99.0 fL 03/17/2021 5:11 AM [facility] - [facility] MCH 28.8 27.2 - 32.6 pg 03/17/2021 5:11 AM [facility] - [facility] MCHC 31.5 31.5 - 35.5 g/dL 03/17/2021 5:11 AM [facility] RDW 12.8 11.5 - 14.5 % 03/17/2021 5:11 AM [facility] - [facility] RDW-STDEV 42.5 37.1 - 48.7 fL 03/17/2021 5:11 AM [facility] - [facility] PLATELETS 201 140 - 350 K/uL 03/17/2021 5:11 AM [facility] - [facility] MPV 10.2 9.3 - 12.4 fL 03/17/2021 5:11 AM [facility] NEUTROPHILS 85 % 03/17/2021 5:11 AM [facility] LYMPHOCYTES 10 % 03/17/2021 5:11 AM [facility] MONOCYTES 4 % 03/17/2021 5:11 AM [facility] EOSINOPHILS 0 % 03/17/2021 5:11 AM [facility] BASOPHILS 0 % 03/17/2021 5:11 AM [facility] - [facility] IMMATURE GRANULOCYTES 1 % 03/17/2021 5:11 AM [facility] Comment:IG (Immature Granulo cyte) count includes Metamyelocytes, Myelocytes, and Promyelocytes NEUTROPHIL ABSOLUTE 6.39 1.90 - 7.00 K/uL 03/17/2021 5:11 AM CLINICAL DIETICIAN [employer] LABORATORY SERVICES - [facility] LYMPHOCYTE ABSOLUTE 0.74 0.70 - 4.50 K/uL 03/17/2021 5:11 AM CLINICAL DIETICIAN [employer] LABORATORY SERVICES - [facility] MONOCYTE ABSOLUTE 0.29 0.10 - 1.30 K/uL 03/17/2021 5:11 AM CLINICAL DIETICIAN [employer] LAB[facility]ATORY SERVICES - [facility] EOSINOPHIL ABSOLUTE 0.00 0.00 - 0.70 K/uL 03/17/2021 5:11 AM CLINICAL DIETICIAN [employer] LAB[facility]ATORY SERVICES - [facility] BASOPHILS ABSOLUTE 0.01 0.00 - 0.20 K/uL 03/17/2021 5:11 AM CLINICAL DIETICIAN [employer] LAB[facility]ATORY SERVICES - [facility] IMMATURE GRANULOCYTES ABSOLUTE 0.05(H) 0.00 - 0.03 K/uL 03/17/2021 5:11 AM CLINICAL DIETICIAN [employer] LABORATORY SERVICES - [facility] Blood Venipuncture / Unknown 03/17/2021 4:27 AM CLINICAL DIETICIAN 03/17/2021 4:51 AM CLINICAL DIETICIAN Tab Jonas MD HEMATOLOGY ORDERABLE S [facility] [employer] [facility] CLIA# [id number] [address] [place] [address] * MAGNESIUM LEVEL (03/17/2021 4:27 AM CLINICAL DIETICIAN) MAGNESIUM 2.3 1.6 - 2.4 mg/dL 03/17/2021 5:24 AM CLINICAL DIETICIAN [employer] LABORATORY SERVICES [facility] Blood Venipuncture / Unknown 03/17/2021 4:27 AM CLINICAL DIETICIAN 03/17/2021 4:51 AM CLINICAL DIETICIAN Janice Alanis MD CHEMISTRY ORDERAB LES [facility] [employer] [facility] CLIA# [id number] [address] [place] [address] * (ABNORMAL) RENAL FUNCTION PANEL (03/17/2021 4:27 AM CLINICAL DIETICIAN) SODIUM 137 136 - 145 mmol/L 03/17/2021 5:24 AM [facility] [employer] LABORATORY SERVICES - [facility] POTASSIUM 4.3 3.5 - 5.0 mmol/L 03/17/2021 5:24 AM [facility] [employer] [facility] CHLORIDE 106 98 - 107 mmol/L 03/17/2021 5:24 AM [facility] [employer] [facility] CO2 21(L) 22 - 29 mmol/L 03/17/2021 5:24 AM [facility] [employer] [facility] - [facility] CALCIUM 8.6 8.6 - 10.2 mg/dL 03/17/2021 5:24 AM [facility] [employer] [facility] BUN 22 8 - 23 mg/dL 03/17/2021 5:24 AM [facility] [employer] [facility] - [facility] [place] CREATININE 0.75 0.51 - 0.95 mg/dL 03/17/2021 5:24 AM [facility] [employer] [facility] - [facility] [place] GLUCOSE 137(H) 74 - 99 mg/dL 03/17/2021 5:24 AM [facility] [employer] [facility] - [facility] [place] ALBUMIN 3.2(L) 3.5 - 5.2 g/dL 03/17/2021 5:24 AM [employer] [facility] PHOSPHORUS 2.5 2.5 - 4.5 mg/dL 03/17/2021 5:24 AM CLINICAL DIETICIAN [employer] [facility] - [facility] [place] GFR >60 mL/min/1.7 3 sq meter 03/17/2021 5:24 AM [facility] LABORATORY SERVICES - . [facility] Comment: eGFR has not been validated for [...] result. GFR, >60 mL/min/1.7 3 sq meter 03/17/2021 5:24 AM CLINICAL DIETICIAN [facility] ANION GAP 10 8 - 16 mmol/L 03/17/2021 5:24 AM [facility] [employer] SERVICES - [facility] Blood Venipuncture / Unknown 03/17/2021 4:27 AM CLINICAL DIETICIAN 03/17/2021 4:51 AM CLINICAL DIETICIAN Janice Alanis MD CHEMISTRY ORDERAB LES [facility] [employer] SERVICES [facility] CLIA# [id number] 5 [facility] [place] [address] * (ABNORMAL) BASIC METABOLIC PANEL (03/17/2021 12:50 AM CLINICAL DIETICIAN) SODIUM 141 136 - 145 mmol/L 03/17/2021 1:46 AM [facility] [employer] SERVICES - . [facility] POTASSIUM 4.3 3.5 - 5.0 mmol/L 03/17/2021 1:46 AM [facility] [employer] SERVICES - . [place] CHLORIDE 110(H) 98 - 107 mmol/L 03/17/2021 1:46 AM [facility] [employer] SERVICES - [facility] CO2 22 22 - 29 mmol/L 03/17/2021 1:46 AM [facility] [employer] LABORATORY SERVICES - [facility] CALCIUM 8.4(L) 8.6 - 10.2 mg/dL 03/17/2021 1:46 AM [facility] [employer] SERVICES - [facility] BUN 20 8 - 23 mg/dL 03/17/2021 1:46 AM [facility] [employer] SERVICES [facility] CREATININE 0.71 0.51 - 0.95 mg/dL 03/17/2021 1:46 AM CLINICAL DIETICIAN [employer] SERVICES - [facility] GLUCOSE 141(H) 74 - 99 mg/dL 03/17/2021 1:46 AM [facility]ATORY SERVICES - [facility] GFR >60 mL/min/1.7 3 sq meter 03/17/2021 1:46 AM [facility] - [facility] Comment: eGFR has not been validated [...] result. GFR, >60 mL/min/1.7 3 sq meter 03/17/2021 1:46 AM CLINICAL DIETICIAN [facility] LABORATORY SERVICES [facility] ANION GAP 9 8 - 16 mmol/L 03/17/2021 1:46 AM CLINICAL DIETICIAN [facility] LABORATORY SERVICES [facility] Blood Venipuncture / Unknown 03/17/2021 12:50 AM CLINICAL DIETICIAN 03/17/2021 1:10 AM CLINICAL DIETICIAN Jocelin Goins MD CHEMISTRY ORDERABLE S Performing Organization Address [facility]/ZIP Co de Phone Number [facility] [employer] [facility] CLIA# [id number] [address] [place] [address] * (ABNORMAL) POC GLUCOSE (03/16/2021 8:39 PM CLINICAL DIETICIAN) GLUCOSE POC 122(H) 74 - 99 mg/dL 03/16/2021 8:39 PM CLINICAL DIETICIAN [facility] LABORATORY [facility] SPECIMEN SOURCE, GLUCOSE POC Whole Blood 03/16/2021 8:39 PM CLINICAL DIETICIAN [facility] LABORATORY SERVICES [facility] DIRECTOR ONLINE MARKETING NAME POC COOKIE LEIJA 03/16/2021 8:39 PM CLINICAL DIETICIAN [facility] LABORATORY [facility] Blood, whole 03/16/2021 8:39 PM CLINICAL DIETICIAN 03/16/2021 8:50 PM CLINICAL DIETICIAN Lalit Ortiz DO POINT OF CARE TEST ING Performing Organization Address [facility]/ZIP Co de Phone Number [facility] [employer] [facility] CLIA# [id number] [address] [place] [address] * (ABNORMAL) POC GLUCOSE (03/16/2021 4:21 PM CLINICAL DIETICIAN) GLUCOSE POC 135(H) 74 - 99 mg/dL 03/16/2021 4:21 PM [facility] [employer] LABORATORY SERVICES - [facility] SPECIMEN SOURCE, GLUCOSE POC Whole Blood 03/16/2021 4:21 PM [facility] [employer] LABORATORY SERVICES - [facility] COMMENT, GLU POC Notified RN/MD 03/16/2021 4:21 PM [facility] LABORATORY SERVICES - [facility] DIRECTOR ONLINE MARKETING NAME POC SOHEILA LINARES 03/16/2021 4:21 PM [facility] [employer] [facility] Blood, whole 03/16/2021 4:21 PM CLINICAL DIETICIAN 03/16/2021 4:29 PM CLINICAL DIETICIAN Lalit Ortiz DO POINT OF CARE TEST ING [facility] [employer] SERVICES [facility]# [id number] [address] [facility] [place] [place] [id number] * (ABNORMAL) BASIC METABOLIC PANEL (03/16/2021 4:16 PM CLINICAL DIETICIAN) SODIUM 134(L) 136 - 145 mmol/L 03/16/2021 5:05 PM [facility] [employer] LABORATORY SERVICES [facility] POTASSIUM 3.9 3.5 - 5.0 mmol/L 03/16/2021 5:05 PM [facility] [employer] LABORATORY [facility] CHLORIDE 105 98 - 107 mmol/L 03/16/2021 5:05 PM [facility] LABORATORY [facility] CO2 21(L) 22 - 29 mmol/L 03/16/2021 5:05 PM [facility] [employer] LABORATORY [facility] CALCIUM 8.5(L) 8.6 - 10.2 mg/dL 03/16/2021 5:05 PM [facility] [employer] LABORATORY SERVICES [facility]. [facility] BUN 21 8 - 23 mg/dL 03/16/2021 5:05 PM [facility] [employer] LABORATORY SERVICES [facility]. [facility] CREATININE 0.72 0.51 - 0.95 mg/dL 03/16/2021 5:05 PM [facility] [employer] LABORATORY SERVICES [facility] GLUCOSE 170(H) 74 - 99 mg/dL 03/16/2021 5:05 PM [facility] [employer] LABORATORY SERVICES [facility] GFR >60 mL/min/1.7 3 sq meter 03/16/2021 5:05 PM [facility] [employer] [facility] Comment: eGFR has not been validated for [...] result. GFR, >60 mL/min/1.7 3 sq meter 03/16/2021 5:05 PM CLINICAL DIETICIAN [facility] LABORATORY [facility] ANION GAP 8 8 - 16 mmol/L 03/16/2021 5:05 PM [facility] LABORATORY [facility] Blood Venipuncture / Unknown 03/16/2021 4:16 PM CLINICAL DIETICIAN 03/16/2021 4:28 PM CLINICAL DIETICIAN Jocelin Goins MD CHEMISTRY ORDERABLE S [facility] [employer] [facility]# [id number] [address] [facility] [place] [place] [id number] * (ABNORMAL) POC GLUCOSE (03/16/2021 12:42 PM CLINICAL DIETICIAN) GLUCOSE POC 188(H) 74 - 99 mg/dL 03/16/2021 12:42 PM [facility] [employer] [facility] SPECIMEN SOURCE, GLUCOSE POC Whole Blood 03/16/2021 12:42 PM [facility] [employer] [facility] COMMENT, GLU POC Notified RN/MD 03/16/2021 12:42 PM [facility] [employer] [facility] DIRECTOR ONLINE MARKETING NAME POC SOHEILA LINARES 03/16/2021 12:42 PM [facility] [employer] [facility] Blood, whole 03/16/2021 12:4 2 PM CLINICAL DIETICIAN 03/16/2021 12:51 PM CLINICAL DIETICIAN Lalit Ortiz DO POINT OF CARE TEST ING Performing Organization Address [facility]/ZIP Co de Phone Number [employer] [facility] CLIA# [id number] [address] [place] [address] * (ABNORMAL) POC GLUCOSE (03/16/2021 10:06 AM CLINICAL DIETICIAN) GLUCOSE POC 134(H) 74 - 99 mg/dL 03/16/2021 10:06 AM [facility] [employer] LABORATORY SERVICES - [facility] SPECIMEN SOURCE, GLUCOSE POC Whole Blood 03/16/2021 10:06 AM CLINICAL DIETICIAN [employer] LABORATORY SERVICES - [facility] COMMENT, GLU POC Notified RN/MD 03/16/2021 10:06 AM [facility] [employer] LABORATORY SERVICES [facility] DIRECTOR ONLINE MARKETING NAME POC SOHEILA LINARES 03/16/2021 10:06 AM [facility] [employer] LABORATORY SERVICES - [facility] Blood, whole 03/16/2021 10:0 6 AM CLINICAL DIETICIAN 03/16/2021 10:15 AM CLINICAL DIETICIAN Lalit Ortiz DO POINT OF CARE TEST ING Performing Organization Address [facility]/ZIP Co de Phone Number [employer] [facility] CLIA# [id number] [address] [place] [address] * (ABNORMAL) CBC WITH DIFFERENTIAL (03/16/2021 6:14 AM CLINICAL DIETICIAN) Pathologist [facility] WBC 6.3 4.0 - 9.8 K/uL 03/16/2021 6:41 AM CLINICAL DIETICIAN [employer] LABORATORY SERVICES [facility] RBC 3.70(L) 3.90 - 4.90 M/uL 03/16/2021 6:41 AM CLINICAL DIETICIAN [employer] LABORATORY SERVICES [facility] HEMOGLOBIN 10.9(L) 11.8 - 14.8 g/dL 03/16/2021 6:41 AM CLINICAL DIETICIAN [employer] LABORATORY SERVICES [facility] HEMATOCRIT 34.1(L) 35.5 - 44.0 % 03/16/2021 6:41 AM CLINICAL DIETICIAN [employer] LABORATORY SERVICES [facility] MCV 92.2 82.0 - 99.0 fL 03/16/2021 6:41 AM [facility] - [facility] MCH 29.5 27.2 - 32.6 pg 03/16/2021 6:41 AM CLINICAL DIETICIAN [employer] LABORATORY SERVICES - [facility] MCHC 32.0 31.5 - 35.5 g/dL 03/16/2021 6:41 AM [facility] - [facility] RDW 12.8 11.5 - 14.5 % 03/16/2021 6:41 AM CLINICAL DIETICIAN [employer] LAB[facility]ATORY SERVICES - [facility] RDW-STDEV 42.6 37.1 - 48.7 fL 03/16/2021 6:41 AM [facility] - [facility] PLATELETS 170 140 - 350 K/uL 03/16/2021 6:41 AM [facility] LABORATORY SERVICES - [facility] MPV 9.7 9.3 - 12.4 fL 03/16/2021 6:41 AM [facility] - [facility] NEUTROPHILS 89 % 03/16/2021 6:41 AM [facility] - [facility] LYMPHOCYTES 9 % 03/16/2021 6:41 AM [facility] MONOCYTES 2 % 03/16/2021 6:41 AM [facility] EOSINOPHILS 0 % 03/16/2021 6:41 AM [facility] SERVICES - [facility] BASOPHILS 0 % 03/16/2021 6:41 AM [facility]ORY SERVICES - [facility] IMMATURE GRANULOCYTES 1 % 03/16/2021 6:41 AM [facility] Comment:IG (Immature Granulo cyte) count includes Metamyelocytes, Myelocytes, and Promyelocytes NEUTROPHIL ABSOLUTE 5.63 1.90 - 7.00 K/uL 03/16/2021 6:41 AM [facility] - [facility] LYMPHOCYTE ABSOLUTE 0.54(L) 0.70 - 4.50 K/uL 03/16/2021 6:41 AM CLINICAL DIETICIAN [employer] LABORATORY SERVICES - [facility] MONOCYTE ABSOLUTE 0.10 0.10 - 1.30 K/uL 03/16/2021 6:41 AM [facility] - [facility] EOSINOPHIL ABSOLUTE 0.00 0.00 - 0.70 K/uL 03/16/2021 6:41 AM [facility] - [facility] BASOPHILS ABSOLUTE 0.00 0.00 - 0.20 K/uL 03/16/2021 6:41 AM [facility] LABORATORY SERVICES - [facility] IMMATURE GRANULOCYTES ABSOLUTE 0.07(H) 0.00 - 0.03 K/uL 03/16/2021 6:41 AM [facility] LABORATORY [facility] Blood Venipuncture / Unknown 03/16/2021 6:14 AM CLINICAL DIETICIAN 03/16/2021 6:27 AM CLINICAL DIETICIAN Tab Jonas MD HEMATOLOGY ORDERABLE S Performing Organization Address City/[facility]/ZIP Co de Phone Number [facility] CLSC# [id number] [address] [place] [address] * MAGNESIUM LEVEL (03/16/2021 6:14 AM CLINICAL DIETICIAN) MAGNESIUM 2.2 1.6 - 2.4 mg/dL 03/16/2021 7:09 AM [facility] LABORATORY [facility] Blood Venipuncture / Unknown 03/16/2021 6:14 AM CLINICAL DIETICIAN 03/16/2021 6:27 AM CLINICAL DIETICIAN Janice Alanis MD CHEMISTRY ORDERAB LES Performing Organization Address [facility]/ZIP Co de Phone Number [facility] [employer] [facility]# [id number] [address] [place] [address] * (ABNORMAL) RENAL FUNCTION PANEL (03/16/2021 6:14 AM CLINICAL DIETICIAN) SODIUM 136 136 - 145 mmol/L 03/16/2021 7:08 AM [facility] LABORATORY SERVICES [facility] POTASSIUM 4.3 3.5 - 5.0 mmol/L 03/16/2021 7:08 AM [facility] [employer] LABORATORY [facility] CHLORIDE 105 98 - 107 mmol/L 03/16/2021 7:08 AM [facility] [employer] LABORATORY [facility] CO2 21(L) 22 - 29 mmol/L 03/16/2021 7:08 AM [facility] [employer] LABORATORY SERVICES - . [facility] CALCIUM 8.3(L) 8.6 - 10.2 mg/dL 03/16/2021 7:08 AM [facility] [facility] BUN 24(H) 8 - 23 mg/dL 03/16/2021 7:08 AM [facility] LABORAT[facility] CREATININE 0.75 0.51 - 0.95 mg/dL 03/16/2021 7:08 AM [facility] [employer] [facility] GLUCOSE 155(H) 74 - 99 mg/dL 03/16/2021 7:08 AM [facility] [employer] [facility] ALBUMIN 3.2(L) 3.5 - 5.2 g/dL 03/16/2021 7:08 AM [facility] [employer] [facility] PHOSPHORUS 2.8 2.5 - 4.5 mg/dL 03/16/2021 7:08 AM [facility] [employer] [facility] GFR >60 mL/min/1.7 3 sq meter 03/16/2021 7:08 AM [facility] [employer] [facility] Comment: eGFR has not been validated for [...] result. GFR, >60 mL/min/1.7 3 sq meter 03/16/2021 7:08 AM [facility] [employer] [facility] ANION GAP 10 8 - 16 mmol/L 03/16/2021 7:08 AM [facility] [employer] [facility] Blood Venipuncture / Unknown 03/16/2021 6:14 AM CLINICAL DIETICIAN 03/16/2021 6:27 AM CLINICAL DIETICIAN Janice Alanis MD CHEMISTRY ORDERAB LES [facility] [employer] [facility] CLIA# [id number] [address] [facility] [place] [id number] * (ABNORMAL) BASIC METABOLIC PANEL (03/15/2021 11:57 PM CLINICAL DIETICIAN) SODIUM 136 136 - 145 mmol/L 03/16/2021 1:17 AM [employer] [facility] - [facility] POTASSIUM 4.5 3.5 - 5.0 mmol/L 03/16/2021 1:17 AM [facility] - [facility] CHLORIDE 106 98 - 107 mmol/L 03/16/2021 1:17 AM [facility] - [facility] CO2 21(L) 22 - 29 mmol/L 03/16/2021 1:17 AM [facility]ATORY SERVICES - . [facility] CALCIUM 8.4(L) 8.6 - 10.2 mg/dL 03/16/2021 1:17 AM [facility]ATORY SERVICES - . [facility] BUN 23 8 - 23 mg/dL 03/16/2021 1:17 AM [facility] SERVICES - . [facility] CREATININE 0.78 0.51 - 0.95 mg/dL 03/16/2021 1:17 AM [facility]ATORY SERVICES - . [place] GLUCOSE 173(H) 74 - 99 mg/dL 03/16/2021 1:17 AM [facility] - . [facility] GFR >60 mL/min/1.7 3 sq meter 03/16/2021 1:17 AM [facility] LABORATORY SERVICES - [facility] Comment: eGFR has not been validated for [...] result. GFR, >60 mL/min/1.7 3 sq meter 03/16/2021 1:17 AM [facility] LABORATORY SERVICES - [facility] ANION GAP 9 8 - 16 mmol/L 03/16/2021 1:17 AM [facility] LABORATORY SERVICES - [facility] Blood Venipuncture / Unknown 03/15/2021 11:57 PM CLINICAL DIETICIAN 03/16/2021 12:29 AM CLINICAL DIETICIAN Jocelin Goins MD CHEMISTRY ORDERABLE S Performing Organization Address [facility]/ZIP Co de Phone Number [facility] LABORATORY SERVICES [facility] CLIA# [id number] [address] [place] [address] * (ABNORMAL) POC GLUCOSE (03/15/2021 8:26 PM CLINICAL DIETICIAN) GLUCOSE POC 115(H) 74 - 99 mg/dL 03/15/2021 8:26 PM CLINICAL DIETICIAN [employer] LABORATORY SERVICES - [facility] SPECIMEN SOURCE, GLUCOSE POC Whole Blood 03/15/2021 8:26 PM CLINICAL DIETICIAN [employer] LABORATORY SERVICES [facility] DIRECTOR ONLINE MARKETING NAME POC Martha Talbert 03/15/2021 8:26 PM CLINICAL DIETICIAN [employer] LABORATORY SERVICES - [facility] Blood, whole 03/15/2021 8:26 PM CLINICAL DIETICIAN 03/15/2021 8:37 PM CLINICAL DIETICIAN Lalit Ortiz DO POINT OF CARE TEST ING Performing Organization Address [facility]/ZIP Co de Phone Number [email or web address] LABORATORY SERVICES [facility]# [id number] [address] [place] [address] * (ABNORMAL) BASIC METABOLIC PANEL (03/15/2021 5:04 PM CLINICAL DIETICIAN) Pathologist [facility] SODIUM 138 136 - 145 mmol/L 03/15/2021 5:59 PM CLINICAL DIETICIAN [employer] LABORATORY SERVICES - [facility] POTASSIUM 4.1 3.5 - 5.0 mmol/L 03/15/2021 5:59 PM CLINICAL DIETICIAN [employer] LABORATORY SERVICES - [facility] CHLORIDE 106 98 - 107 mmol/L 03/15/2021 5:59 PM CLINICAL DIETICIAN [employer] LABORATORY SERVICES - [facility] CO2 23 22 - 29 mmol/L 03/15/2021 5:59 PM CLINICAL DIETICIAN [employer] LABORATORY SERVICES - [facility] CALCIUM 8.3(L) 8.6 - 10.2 mg/dL 03/15/2021 5:59 PM [facility] LABORATORY [facility] BUN 27(H) 8 - 23 mg/dL 03/15/2021 5:59 PM [facility] CREATININE 0.87 0.51 - 0.95 mg/dL 03/15/2021 5:59 PM [facility] GLUCOSE 118(H) 74 - 99 mg/dL 03/15/2021 5:59 PM [facility] LABORATORY [facility] GFR >60 mL/min/1.7 3 sq meter 03/15/2021 5:59 PM [facility] [employer] LABORATORY [facility] Comment: eGFR has not been validated for [...] result. GFR, >60 mL/min/1.7 3 sq meter 03/15/2021 5:59 PM [facility] [email or web address] LABORATORY [facility] ANION GAP 9 8 - 16 mmol/L 03/15/2021 5:59 PM [facility] [employer] [facility] Blood Venipuncture / Unknown 03/15/2021 5:04 PM CLINICAL DIETICIAN 03/15/2021 5:19 PM CLINICAL DIETICIAN Jocelin Goins MD CHEMISTRY ORDERABLE S [facility] [employer] [id number] [address] [place] [address] * (ABNORMAL) POC GLUCOSE (03/15/2021 1:33 PM CLINICAL DIETICIAN) GLUCOSE POC 100(H) 74 - 99 mg/dL 03/15/2021 1:33 PM CLINICAL DIETICIAN [facility] LABORATORY [facility] SPECIMEN SOURCE, GLUCOSE POC Whole Blood 03/15/2021 1:33 PM CLINICAL DIETICIAN [employer] LABORATORY SERVICES - [facility] DIRECTOR ONLINE MARKETING NAME POC ETHAN CISNEROS 03/15/2021 1:33 PM CLINICAL DIETICIAN [employer] LABORATORY SERVICES - [facility] Blood, whole 03/15/2021 1:33 PM CLINICAL DIETICIAN 03/15/2021 1:40 PM CLINICAL DIETICIAN Lalit Abraham padmini DO POINT OF CARE TEST ING [facility] LABORATORY SERVICES [facility] CLIA# [id number] [address] [place] [address] * (ABNORMAL) POC GLUCOSE (03/15/2021 8:01 AM CLINICAL DIETICIAN) Pathologist [facility] GLUCOSE POC 119(H) 74 - 99 mg/dL 03/15/2021 8:01 AM CLINICAL DIETICIAN [employer] LABORATORY SERVICES - [facility] SPECIMEN SOURCE, GLUCOSE POC Whole Blood 03/15/2021 8:01 AM CLINICAL DIETICIAN [employer] LABORATORY SERVICES - [facility] DIRECTOR ONLINE MARKETING NAME POC ROVERTO DIAZ 03/15/2021 8:01 AM CLINICAL DIETICIAN [employer] LABORATORY SERVICES - [facility] Blood, whole 03/15/2021 8:01 AM CLINICAL DIETICIAN 03/15/2021 8:09 AM CLINICAL DIETICIAN Lalit Abraham padmini DO POINT OF CARE TEST ING [facility] [employer] [facility] CLIA# [id number] [address] [place] [address] * (ABNORMAL) CBC WITH DIFFERENTIAL (03/15/2021 5:55 AM CLINICAL DIETICIAN) WBC 9.2 4.0 - 9.8 K/uL 03/15/2021 6:19 AM CLINICAL DIETICIAN [employer] LABORATORY SERVICES [facility] RBC 3.48(L) 3.90 - 4.90 M/uL 03/15/2021 6:19 AM CLINICAL DIETICIAN [employer] LABORATORY SERVICES [facility] HEMOGLOBIN 10.3(L) 11.8 - 14.8 g/dL 03/15/2021 6:19 AM CLINICAL DIETICIAN [employer] LABORATORY SERVICES - [facility] HEMATOCRIT 31.6(L) 35.5 - 44.0 % 03/15/2021 6:19 AM CLINICAL DIETICIAN [employer] LABORATORY SERVICES - [facility] MCV 90.8 82.0 - 99.0 fL 03/15/2021 6:19 AM CLINICAL DIETICIAN [employer] LABORATORY SERVICES - [facility] MCH 29.6 27.2 - 32.6 pg 03/15/2021 6:19 AM CLINICAL DIETICIAN [employer] LABORATORY SERVICES - [facility] MCHC 32.6 31.5 - 35.5 g/dL 03/15/2021 6:19 AM [facility] LABORATORY SERVICES - [facility] RDW 12.6 11.5 - 14.5 % 03/15/2021 6:19 AM [facility] LABORATORY SERVICES - [facility] RDW-STDEV 41.8 37.1 - 48.7 fL 03/15/2021 6:19 AM [facility] LABORATORY SERVICES - . [facility] PLATELETS 179 140 - 350 K/uL 03/15/2021 6:19 AM [facility] LABORATORY SERVICES - [facility] MPV 9.9 9.3 - 12.4 fL 03/15/2021 6:19 AM [facility] LABORATORY SERVICES - [facility] NEUTROPHILS 82 % 03/15/2021 6:19 AM [facility] LABORATORY SERVICES - [facility] LYMPHOCYTES 10 % 03/15/2021 6:19 AM [facility] LABORATORY SERVICES - [facility] MONOCYTES 7 % 03/15/2021 6:19 AM [facility] LABORATORY SERVICES - [facility] EOSINOPHILS 0 % 03/15/2021 6:19 AM [facility] LABORATORY SERVICES - [facility] BASOPHILS 0 % 03/15/2021 6:19 AM [facility] LABORATORY SERVICES - [facility] IMMATURE GRANULOCYTES 1 % 03/15/2021 6:19 AM CLINICAL DIETICIAN [employer] LABORATORY SERVICES - [facility] Comment:IG (Immature Granulo cyte) count includes Metamyelocytes, Myelocytes, and Promyelocytes NEUTROPHIL ABSOLUTE 7.58(H) 1.90 - 7.00 K/uL 03/15/2021 6:19 AM [facility] LABORATORY SERVICES - [facility] LYMPHOCYTE ABSOLUTE 0.91 0.70 - 4.50 K/uL 03/15/2021 6:19 AM CLINICAL DIETICIAN [employer] LABORATORY SERVICES - [facility] MONOCYTE ABSOLUTE 0.63 0.10 - 1.30 K/uL 03/15/2021 6:19 AM CLINICAL DIETICIAN [employer] LABORATORY SERVICES - [facility] EOSINOPHIL ABSOLUTE 0.00 0.00 - 0.70 K/uL 03/15/2021 6:19 AM CLINICAL DIETICIAN [employer] LABORATORY SERVICES - [facility] BASOPHILS ABSOLUTE 0.01 0.00 - 0.20 K/uL 03/15/2021 6:19 AM CLINICAL DIETICIAN [employer] LABORATORY SERVICES - [facility] IMMATURE GRANULOCYTES ABSOLUTE 0.06(H) 0.00 - 0.03 K/uL 03/15/2021 6:19 AM CLINICAL DIETICIAN [employer] LABORATORY SERVICES - . [facility] Blood Venipuncture / Unknown 03/15/2021 5:55 AM CLINICAL DIETICIAN 03/15/2021 6:01 AM CLINICAL DIETICIAN Tab Jonas MD HEMATOLOGY ORDERABLE S [facility] LABORATORY [facility] CLIA# [id number] [address] [place] [address] * MAGNESIUM LEVEL (03/15/2021 5:55 AM CLINICAL DIETICIAN) MAGNESIUM 2.2 1.6 - 2.4 mg/dL 03/15/2021 6:38 AM [facility] [employer] LABORATORY SERVICES - [facility] Blood Venipuncture / Unknown 03/15/2021 5:55 AM CLINICAL DIETICIAN 03/15/2021 6:00 AM CLINICAL DIETICIAN Janice Alanis MD CHEMISTRY ORDERAB LES [facility] [employer] [facility] CLIA# [id number] [address] [place] [address] * (ABNORMAL) RENAL FUNCTION PANEL (03/15/2021 5:55 AM CLINICAL DIETICIAN) SODIUM 133(L) 136 - 145 mmol/L 03/15/2021 6:38 AM CLINICAL DIETICIAN [employer] LABORATORY SERVICES [facility] POTASSIUM 4.4 3.5 - 5.0 mmol/L 03/15/2021 6:38 AM [facility] LABORATORY SERVICES - [facility] CHLORIDE 103 98 - 107 mmol/L 03/15/2021 6:38 AM [facility] LABORATORY SERVICES - [facility] CO2 21(L) 22 - 29 mmol/L 03/15/2021 6:38 AM [facility] [employer] LABORATORY SERVICES - . [facility] CALCIUM 8.7 8.6 - 10.2 mg/dL 03/15/2021 6:38 AM [facility] [employer] SERVICES - . [facility] BUN 27(H) 8 - 23 mg/dL 03/15/2021 6:38 AM [facility] [employer] SERVICES - . [facility] CREATININE 0.79 0.51 - 0.95 mg/dL 03/15/2021 6:38 AM [facility] SERVICES - . [facility] GLUCOSE 129(H) 74 - 99 mg/dL 03/15/2021 6:38 AM CLINICAL DIETICIAN [employer] LABORATORY [facility] - . [facility] ALBUMIN 3.3(L) 3.5 - 5.2 g/dL 03/15/2021 6:38 AM [facility] LABORATORY SERVICES - [facility] PHOSPHORUS 2.4(L) 2.5 - 4.5 mg/dL 03/15/2021 6:38 AM [facility] - . [facility] GFR >60 mL/min/1.7 3 sq meter 03/15/2021 6:38 AM [facility] Comment: eGFR has not been validated for [...] result. GFR, >60 mL/min/1.7 3 sq meter 03/15/2021 6:38 AM [facility] SERVICES - . [facility] ANION GAP 9 8 - 16 mmol/L 03/15/2021 6:38 AM [facility] LABORATORY [employer] [facility]. [facility] Blood Venipuncture / Unknown 03/15/2021 5:55 AM CLINICAL DIETICIAN 03/15/2021 6:00 AM CLINICAL DIETICIAN Janice Alanis MD CHEMISTRY ORDERAB LES Performing Organization Address [facility]/ZIP Co de Phone Number [facility] [employer] [facility]# [id number] [address] [place] [address] * (ABNORMAL) POC GLUCOSE (03/15/2021 12:29 AM CLINICAL DIETICIAN) GLUCOSE POC 156(H) 74 - 99 mg/dL 03/15/2021 12:29 AM CLINICAL DIETICIAN [employer] LABORATORY SERVICES - [facility] SPECIMEN SOURCE, GLUCOSE POC Whole Blood 03/15/2021 12:29 AM CLINICAL DIETICIAN [employer] LABORATORY SERVICES - [facility] DIRECTOR ONLINE MARKETING NAME POC Martha Talbert 03/15/2021 12:29 AM CLINICAL DIETICIAN [employer] LABORATORY SERVICES [facility] Blood, whole 03/15/2021 12:2 9 AM CLINICAL DIETICIAN 03/15/2021 12:37 AM CLINICAL DIETICIAN Lalit Ortiz DO POINT OF CARE TEST ING Performing Organization Address [facility] Co de Phone Number [email or web address] [facility]# [id number] [address] [place] [address] * (ABNORMAL) POC GLUCOSE (03/14/2021 8:30 PM CLINICAL DIETICIAN) GLUCOSE POC 140(H) 74 - 99 mg/dL 03/14/2021 8:30 PM CLINICAL DIETICIAN [employer] LABORATORY SERVICES - [facility] SPECIMEN SOURCE, GLUCOSE POC Whole Blood 03/14/2021 8:30 PM CLINICAL DIETICIAN [employer] LABORATORY SERVICES [facility] DIRECTOR ONLINE MARKETING NAME POC Martha Talbert 03/14/2021 8:30 PM CLINICAL DIETICIAN [employer] LABORATORY SERVICES [facility] Blood, whole 03/14/2021 8:30 PM CLINICAL DIETICIAN 03/14/2021 9:23 PM CLINICAL DIETICIAN Lalit Ortiz DO POINT OF CARE TEST ING [employer] SERVICES [facility] CLIA# [id number] [address] [place] [address] * (ABNORMAL) POC GLUCOSE (03/14/2021 5:50 PM CLINICAL DIETICIAN) GLUCOSE POC 125(H) 74 - 99 mg/dL 03/14/2021 5:50 PM CLINICAL DIETICIAN [employer] LABORATORY SERVICES - [facility] SPECIMEN SOURCE, GLUCOSE POC Whole Blood 03/14/2021 5:50 PM CLINICAL DIETICIAN [employer] LABORATORY SERVICES - [facility] DIRECTOR ONLINE MARKETING NAME POC BHARATHI CALVO 03/14/2021 5:50 PM CLINICAL DIETICIAN [employer] LABORATORY SERVICES - [facility] Blood, whole 03/14/2021 5:50 PM CLINICAL DIETICIAN 03/14/2021 6:04 PM CLINICAL DIETICIAN Lalit Ortiz DO POINT OF CARE TEST ING Performing Organization Address City/[facility]/ZIP Co de Phone Number [facility] [employer] [facility] CLIA# [id number] [address] [place] [address] * (ABNORMAL) POC GLUCOSE (03/14/2021 3:50 PM CLINICAL DIETICIAN) GLUCOSE POC 177(H) 74 - 99 mg/dL 03/14/2021 3:50 PM CLINICAL DIETICIAN [employer] LABORATORY SERVICES - [facility] SPECIMEN SOURCE, GLUCOSE POC Whole Blood 03/14/2021 3:50 PM CLINICAL DIETICIAN [employer] LABORATORY SERVICES - [facility] COMMENT, GLU POC Notified RN/MD 03/14/2021 3:50 PM CLINICAL DIETICIAN [employer] LABORATORY SERVICES - [facility] DIRECTOR ONLINE MARKETING NAME POC ELIZABETH BREEN 03/14/2021 3:50 PM CLINICAL DIETICIAN [employer] LABORATORY SERVICES - [facility] Blood, whole 03/14/2021 3:50 PM CLINICAL DIETICIAN 03/14/2021 4:11 PM CLINICAL DIETICIAN Lalit Ortiz DO POINT OF CARE TEST ING [email or web address] [facility] CLIA# [id number] [address] [place] [address] * (ABNORMAL) POC GLUCOSE (03/14/2021 12:18 PM CLINICAL DIETICIAN) GLUCOSE POC 120(H) 74 - 99 mg/dL 03/14/2021 12:18 PM CLINICAL DIETICIAN [facility] LABORATORY [facility] SPECIMEN SOURCE, GLUCOSE POC Whole Blood 03/14/2021 12:18 PM CLINICAL DIETICIAN [facility] LABORATORY [facility] COMMENT, GLU POC Notified RN/MD 03/14/2021 12:18 PM CLINICAL DIETICIAN [facility] LABORATORY [facility] DIRECTOR ONLINE MARKETING NAME POC ELIZABETH BREEN 03/14/2021 12:18 PM CLINICAL DIETICIAN [facility] Blood, whole 03/14/2021 12:1 8 PM CLINICAL DIETICIAN 03/14/2021 12:56 PM CLINICAL DIETICIAN Grover Veliz MD POINT OF CARE TESTIN G Performing Organization Address City/State/[facility] Co de Phone Number [facility] [employer] [facility]# [id number] [address] [place] [address] * CT THORACIC SPINE WO CONTRAST (03/14/2021 9:34 AM CLINICAL DIETICIAN) Anatomical Region Laterality Modality Spine Computed Tomogra phy 03/14/2021 9:34 AM CLINICAL DIETICIAN Impressions 03/14/2021 10:36 AM CLINICAL DIETICIAN IMPRESSION: 1. ??Postoperative findings of recent T2-3 laminectomy with a surgical drain identified in the posterior paraspinous soft tissues. 2. ??No acute thoracic spine fracture. 3. 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 Spinal canal narrowing is better assessed on yesterday's MRI. The examination was performed with the adjustment of mA according to the patient size and/or the use of Iterative Reconstruction Technique. ?? [facility] 03/14/2021 10:[address] OF THE THORACIC SPINE WITH REFORMATS: DATE: 03/14/2021 9:34 AM CLINICAL INDICATION: ??Back pain. Spine surgery. TECHNIQUE: ??Multiple contiguous CT axial images were obtained through the thoracic spine without administration of intravenous contrast material. Coronal and sagittal reformations were rendered utilizing the axial image data set. COMPARISON: MRI March 13, 2021 FINDINGS: Postoperative findings of recent laminectomy at T2-3 with a surgical drain identified in the posterior paraspinous soft tissues. Right convexity curvature of the thoracic spine. Preservation of the normal thoracic kyphosis. No anterolisthesis or retrolisthesis is identified. There are no wedge-shaped compression deformities. No acute fracture is identified. ?? Multilevel disc space narrowing and marginal osteophyte formation. Posterior disc osteophyte complexes are present at all levels. Spinal canal stenosis is better assessed on the recent MRI. Moderate to severe bilateral neural foraminal narrowing at T2-3 and T3-4. Moderate left neural foraminal narrowing at T8-9. Moderate bilateral neural foraminal narrowing at T9-10. ?? INCIDENTAL FINDINGS: ??None. Procedure Note Erik Ogden MD - 03/14/2021 CT OF THE THORACIC SPINE WITH REFORMATS: DATE: 03/14/2021 9:34 AM CLINICAL INDICATION: Back pain. Spine surgery. TECHNIQUE: Multiple contiguous CT axial images were obtained through the thoracic spine without administration of intravenous contrast material. Coronal and sagittal reformations were rendered utilizing the axial image data set. COMPARISON: MRI March 13, 2021 FINDINGS: Postoperative findings of recent laminectomy at T2-3 with a surgical drain identified in the posterior paraspinous soft tissues. Right convexity curvature of the thoracic spine. Preservation of the normal thoracic kyphosis. No anterolisthesis or retrolisthesis is identified. There are no wedge-shaped compression deformities. No acute fracture is identified. Multilevel disc space narrowing and marginal osteophyte formation. Posterior disc osteophyte complexes are present at all levels. Spinal canal stenosis is better assessed on the recent MRI. Moderate to severe bilateral neural foraminal narrowing at T2-3 and T3-4. Moderate left neural foraminal narrowing at T8-9. Moderate bilateral neural foraminal narrowing at T9-10. INCIDENTAL FINDINGS: None. IMPRESSION: 1. Postoperative findings of recent T2-3 laminectomy with a surgical drain identified in the posterior paraspinous soft tissues. 2. No acute thoracic spine fracture. 3. 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 Spinal canal narrowing is better assessed on yesterday's MRI. The examination was performed with the adjustment of mA according to the patient size and/or the use of Iterative Reconstruction Technique. DICTATION LOCATION: Location 9 [facility] Katherin Patton MD CT ORDERABLES * (ABNORMAL) POC GLUCOSE (03/14/2021 8:07 AM CLINICAL DIETICIAN) GLUCOSE POC 140(H) 74 - 99 mg/dL 03/14/2021 8:07 AM [facility] LABORATORY [facility] SPECIMEN SOURCE, GLUCOSE POC Whole Blood 03/14/2021 8:07 AM [facility] LABORATORY [facility] COMMENT, GLU POC Notified RN/MD 03/14/2021 8:07 AM [facility] [employer] [facility] DIRECTOR ONLINE MARKETING NAME POC ELIZABETH BREEN 03/14/2021 8:07 AM [facility] LABORATORY [facility] Blood, whole 03/14/2021 8:07 AM CLINICAL DIETICIAN 03/14/2021 4:50 PM CLINICAL DIETICIAN Grover Veliz MD POINT OF CARE TESTIN G [facility]# [id number] 5 [facility] [place] [id number] * (ABNORMAL) CBC WITH DIFFERENTIAL (03/14/2021 3:38 AM CLINICAL DIETICIAN) Pathologist [facility] WBC 6.2 4.0 - 9.8 K/uL 03/14/2021 4:24 AM [facility] [employer] [facility] RBC 3.58(L) 3.90 - 4.90 M/uL 03/14/2021 4:24 AM [facility] LABORATORY [facility] HEMOGLOBIN 10.6(L) 11.8 - 14.8 g/dL 03/14/2021 4:24 AM [facility] [employer] [facility] HEMATOCRIT 33.8(L) 35.5 - 44.0 % 03/14/2021 4:24 AM [facility] [employer] [facility] MCV 94.4 82.0 - 99.0 fL 03/14/2021 4:24 AM CLINICAL DIETICIAN [employer] LABORATORY SERVICES - [facility] MCH 29.6 27.2 - 32.6 pg 03/14/2021 4:24 AM CLINICAL DIETICIAN [employer] LABORATORY SERVICES - [facility] MCHC 31.4(L) 31.5 - 35.5 g/dL 03/14/2021 4:24 AM CLINICAL DIETICIAN [employer] LABORATORY SERVICES - [facility] RDW 12.4 11.5 - 14.5 % 03/14/2021 4:24 AM CLINICAL DIETICIAN [employer] LABORATORY SERVICES - [facility] RDW-STDEV 43.4 37.1 - 48.7 fL 03/14/2021 4:24 AM CLINICAL DIETICIAN [employer] LABORATORY SERVICES - [facility] PLATELETS 155 140 - 350 K/uL 03/14/2021 4:24 AM CLINICAL DIETICIAN [employer] LABORATORY SERVICES - [facility] MPV 10.6 9.3 - 12.4 fL 03/14/2021 4:24 AM CLINICAL DIETICIAN [employer] LABORATORY SERVICES - . [facility] NEUTROPHILS 90 % 03/14/2021 4:24 AM CLINICAL DIETICIAN [employer] LABORATORY SERVICES - [facility] LYMPHOCYTES 8 % 03/14/2021 4:24 AM CLINICAL DIETICIAN [employer] LABORATORY SERVICES - [facility] MONOCYTES 2 % 03/14/2021 4:24 AM CLINICAL DIETICIAN [employer] LABORATORY SERVICES - [facility] EOSINOPHILS 0 % 03/14/2021 4:24 AM CLINICAL DIETICIAN [employer] LABORATORY SERVICES - [facility] BASOPHILS 0 % 03/14/2021 4:24 AM CLINICAL DIETICIAN [employer] LABORATORY SERVICES - . [facility] IMMATURE GRANULOCYTES 0 % 03/14/2021 4:24 AM CLINICAL DIETICIAN [employer] LABORATORY SERVICES - [facility] NEUTROPHIL ABSOLUTE 5.58 1.90 - 7.00 K/uL 03/14/2021 4:24 AM CLINICAL DIETICIAN [employer] LABORATORY SERVICES - [facility] LYMPHOCYTE ABSOLUTE 0.50(L) 0.70 - 4.50 K/uL 03/14/2021 4:24 AM CLINICAL DIETICIAN [employer] LABORATORY SERVICES - [facility] MONOCYTE ABSOLUTE 0.11 0.10 - 1.30 K/uL 03/14/2021 4:24 AM CLINICAL DIETICIAN [employer] LABORATORY SERVICES - [facility] EOSINOPHIL ABSOLUTE 0.00 0.00 - 0.70 K/uL 03/14/2021 4:24 AM CLINICAL DIETICIAN [employer] LABORATORY SERVICES - [facility] BASOPHILS ABSOLUTE 0.00 0.00 - 0.20 K/uL 03/14/2021 4:24 AM [facility] LABORATORY [facility] - [facility] IMMATURE GRANULOCYTES ABSOLUTE 0.02 0.00 - 0.03 K/uL 03/14/2021 4:24 AM [facility] [employer] [facility] - [facility] Blood Venipuncture / Unknown 03/14/2021 3:38 AM CLINICAL DIETICIAN 03/14/2021 4:06 AM CLINICAL DIETICIAN Janice Alanis MD HEMATOLOGY [facility] CLIA# [id number] [address] [place] [id number] * (ABNORMAL) POC GLUCOSE (03/14/2021 3:28 AM CLINICAL DIETICIAN) GLUCOSE POC 136(H) 74 - 99 mg/dL 03/14/2021 3:28 AM [facility] [employer] [facility] SPECIMEN SOURCE, GLUCOSE POC Whole Blood 03/14/2021 3:28 AM [facility] [employer] [facility] DIRECTOR ONLINE MARKETING NAME POC IRENA CONTEH 03/14/2021 3:28 AM [facility] [employer] [facility] Blood, whole 03/14/2021 3:28 AM CLINICAL DIETICIAN 03/14/2021 3:54 AM CLINICAL DIETICIAN Grover Veliz MD POINT OF CARE TESTIN G [facility] [employer] [id number] [address] [place] [id number] * (ABNORMAL) PROTIME-INR (03/14/2021 2:03 AM CLINICAL DIETICIAN) PROTIME 15.9(H) 12.7 - 15.1 Seconds 03/14/2021 3:15 AM [facility] INR 1.2(H) 0.9 - 1.1 03/14/2021 3:15 AM [facility] [employer] [facility] Blood Venipuncture / Unknown 03/14/2021 2:03 AM CLINICAL DIETICIAN 03/14/2021 2:30 AM CLINICAL DIETICIAN [place]ative [place] [facility] - 03/14/2021 3:15 AM CLINICAL DIETICIAN INR Therapeutic Range: Adult: ?? 2.0 - 3.0 for pulmonary embolism or prophylaxis against venous ?thrombosis or systemic embolization. 2.0 - 3.0 for patients with tissue heart valves. 2.5 - 3.5 for patients with mechanical heart valves or post MS. Pediatric ??(12 years and under): 1.5 - 3.0 Although the target range in children is not well established, ?INR values of 1.5 - 3.0 are recommended for most patients. ?Higher values have been used in children with prosthetic ?cardiac valves and hereditary clotting disorders. [place] (<3 days) therapeutic ranges have not been established. Jeanne Hemphill MD HEMATOLOGY ORDERA BLES Performing Organization Address [facility]/ZIP Co de Phone Number [facility] CLIA# [id number] [address] [place] [address] * PHOSPHORUS (03/14/2021 2:03 AM CLINICAL DIETICIAN) PHOSPHORUS 3.3 2.5 - 4.5 mg/dL 03/14/2021 3:34 AM CLINICAL DIETICIAN [facility] Blood Venipuncture / Unknown 03/14/2021 2:03 AM CLINICAL DIETICIAN 03/14/2021 2:30 AM CLINICAL DIETICIAN Jeanne Hemphill MD CHEMISTRY ORDERAB LES Performing Organization Address [facility]/ZIP Co de Phone Number [facility]# [id number] [address] [place] [address] * MAGNESIUM LEVEL (03/14/2021 2:03 AM CLINICAL DIETICIAN) MAGNESIUM 1.9 1.6 - 2.4 mg/dL 03/14/2021 3:34 AM [facility] [employer] [facility] - [facility] Blood Venipuncture / Unknown 03/14/2021 2:03 AM CLINICAL DIETICIAN 03/14/2021 2:30 AM CLINICAL DIETICIAN Jeanne Hemphill MD CHEMISTRY ORDERAB LES [employer] SERVICES [facility] CLIA# [id number] [address] [place] [address] * (ABNORMAL) COMPREHENSIVE METABOLIC PANEL (03/14/2021 2:03 AM CLINICAL DIETICIAN) Pathologist [facility] SODIUM 138 136 - 145 mmol/L 03/14/2021 3:34 AM [facility] [employer] SERVICES - [facility] [place] POTASSIUM 4.2 3.5 - 5.0 mmol/L 03/14/2021 3:34 AM [facility] [employer] [facility] - [facility] CHLORIDE 104 98 - 107 mmol/L 03/14/2021 3:34 AM [facility] [employer] [facility] - [facility] CO2 21(L) 22 - 29 mmol/L 03/14/2021 3:34 AM [facility] [employer] [facility] - [facility] CALCIUM 8.6 8.6 - 10.2 mg/dL 03/14/2021 3:34 AM [facility] [employer] [facility] - [facility] BUN 25(H) 8 - 23 mg/dL 03/14/2021 3:34 AM [facility] [employer] [facility] - [facility] CREATININE 0.86 0.51 - 0.95 mg/dL 03/14/2021 3:34 AM [facility] [employer] [facility] - [facility] GLUCOSE 145(H) 74 - 99 mg/dL 03/14/2021 3:34 AM [facility] [employer] [facility] - [facility] TOTAL PROTEIN 6.2(L) 6.7 - 8.6 g/dL 03/14/2021 3:34 AM [facility] [employer] [facility] - [facility] ALBUMIN 3.7 3.5 - 5.2 g/dL 03/14/2021 3:34 AM [facility] [employer] [facility] - [facility] BILIRUBIN TOTAL <0.2(L) 0.2 - 1.1 mg/dL 03/14/2021 3:34 AM [facility]OR[facility] ALKALINE PHOSPHATASE 67 35 - 104 U/L 03/14/2021 3:34 AM [facility] AST 19 <33 U/L 03/14/2021 3:34 AM [facility] ALT 13 <34 U/L 03/14/2021 3:34 AM [facility] GFR >60 mL/min/1.7 3 sq meter 03/14/2021 3:34 AM [facility] [employer] [facility] Comment: eGFR has not been validated for [...] result. GFR, >60 mL/min/1.7 3 sq meter 03/14/2021 3:34 AM [facility] [employer] [facility] ANION GAP 13 8 - 16 mmol/L 03/14/2021 3:34 AM [facility] [employer] [facility] Blood Venipuncture / Unknown 03/14/2021 2:03 AM CLINICAL DIETICIAN 03/14/2021 2:30 AM CLINICAL DIETICIAN Narrative [facility] - 03/14/2021 3:34 AM [facility] Samples containing indocyanine green cause interferences on Total and/or Direct Bilirubin and must not be measured. Jeanne Hemphill MD CHEMISTRY ORDERAB LES [facility] [employer] [facility]# [id number] [address] [facility] [place] [address] * (ABNORMAL) POC GLUCOSE (03/14/2021 1:46 AM CLINICAL DIETICIAN) GLUCOSE POC 120(H) 74 - 99 mg/dL 03/14/2021 1:46 AM CLINICAL DIETICIAN [facility] LABORATORY [facility] SPECIMEN SOURCE, GLUCOSE POC Whole Blood 03/14/2021 1:46 AM CLINICAL DIETICIAN [facility] LAB[facility] DIRECTOR ONLINE MARKETING NAME POC ELIAN ERWIN 03/14/2021 1:46 AM CLINICAL DIETICIAN [facility] Blood, whole 03/14/2021 1:46 AM CLINICAL DIETICIAN 03/14/2021 1:53 AM CLINICAL DIETICIAN Katherin Patton MD POINT OF CARE TESTIN G [facility]# [id number] Viviana YAO ROSEMARIESUSAN [place] [address] * MRI CERV THORACIC WO CONT (03/13/2021 10:47 PM CLINICAL DIETICIAN) Anatomical Region Laterality Modality Spine Magnetic Resonan ce 03/13/2021 10:4 7 PM CLINICAL DIETICIAN Impressions 03/14/2021 11:47 AM CLINICAL DIETICIAN IMPRESSION: ?? 1. ??Interval C4-C6 ACDF and posterior T2-T3 decompression changes are new since MRI 02/17/2021 without epidural hematoma or abnormal postoperative fluid collection. 2. ??Slightly decreased craniocaudal extent of focal spinal cord signal abnormality at the level of the T2-T3 disc osteophyte. 3. ??Multilevel degenerative changes with spinal canal and neural foraminal stenoses as detailed above. DICTATION LOCATION: Location 1 - [facility] Narrative 03/14/2021 11:47 AM CLINICAL DIETICIAN MRI CERVICAL AND THORACIC SPINE WITHOUT IV CONTRAST DATE: 03/13/2021 10:47 PM CLINICAL INDICATION: New sudden onset postoperative weakness. Spinal cord contusion. ?? COMPARISON: MRI of thoracic and lumbar spine 02/17/2021. TECHNIQUE: Multiplanar multisequence MR imaging of the cervical and thoracic spine was performed without the administration of intravenous contrast. FINDINGS: ALIGNMENT: The alignment is normal. VERTEBRAE: Interval C4-C6 ACDF and posterior T2-T3 decompression changes are new since MRI 02/17/2021. No epidural hematoma. Probable T1 intraosseous hemangioma. Multilevel degenerative changes without acute vertebral fracture. DISCS: Mild disc space narrowing is present at C6-C7 and T2-T11. Remaining visualized nonoperative intervertebral disc spaces are relatively maintained. CORD: The conus medullaris terminates at L1. Focal signal abnormality of the thoracic spinal cord at the level of the T2-T3 disc osteophyte is redemonstrated, likely sequela of chronic compressive myelopathy with slightly decreased in craniocaudal extent with decreased focal impingement. No new spinal cord signal abnormality is appreciated. PARAVERTEBRAL SOFT TISSUES: Dorsal cervical thoracic drain is noted. No abnormal postoperative fluid collection is appreciated. Moderate paranasal sinus mucosal inflammatory change. EVALUATION OF INDIVIDUAL LEVELS: ?? C-spine: C2-3: No focal disc herniation or significant spinal canal narrowing. There is moderate right neural foraminal stenosis secondary to uncovertebral spurring. The left neural foramen is patent. C3-4: No focal disc herniation or significant spinal canal narrowing. There is severe left and at least moderate right neural foraminal stenosis. C4-5: Recent discectomy changes and placement of an intervertebral disc graft. There is moderate spinal canal stenosis and at least mild bilateral neural foraminal narrowing. C5-6: Recent discectomy changes with moderate thecal sac narrowing. There is severe left and mild right neural foraminal stenosis. C6-7: Minimal posterior disc osteophyte ridging without high-grade spinal canal narrowing. There is moderate left and mild right neural foraminal stenosis. C7-T1: No disc herniation, spinal canal or neuroforaminal stenosis. T-spine: Large posterior T2-T3 disc osteophyte complex effaces the ventral CSF signal. Posterior decompression changes at T2-T3. There is mild flattening of the thoracic spinal cord and posterior displacement. Additional levels of mild disc bulges are present without high-grade spinal canal narrowing. Mild/moderate multilevel neural foraminal stenoses are present without severe stenosis. Procedure Note Gabo Hernandez DO - 03/14/2021 MRI CERVICAL AND THORACIC SPINE WITHOUT IV CONTRAST DATE: 03/13/2021 10:47 PM CLINICAL INDICATION: New sudden onset postoperative weakness. Spinal cord contusion. COMPARISON: MRI of thoracic and lumbar spine 02/17/2021. TECHNIQUE: Multiplanar multisequence MR imaging of the cervical and thoracic spine was performed without the administration of intravenous contrast. FINDINGS: ALIGNMENT: The alignment is normal. VERTEBRAE: Interval C4-C6 ACDF and posterior T2-T3 decompression changes are new since MRI 02/17/2021. No epidural hematoma. Probable T1 intraosseous hemangioma. Multilevel degenerative changes without acute vertebral fracture. DISCS: Mild disc space narrowing is present at C6-C7 and T2-T11. Remaining visualized nonoperative intervertebral disc spaces are relatively maintained. CORD: The conus medullaris terminates at L1. Focal signal abnormality of the thoracic spinal cord at the level of the T2-T3 disc osteophyte is redemonstrated, likely sequela of chronic compressive myelopathy with slightly decreased in craniocaudal extent with decreased focal impingement. No new spinal cord signal abnormality is appreciated. PARAVERTEBRAL SOFT TISSUES: Dorsal cervical thoracic drain is noted. No abnormal postoperative fluid collection is appreciated. Moderate paranasal sinus mucosal inflammatory change. EVALUATION OF INDIVIDUAL LEVELS: C-spine: C2-3: No focal disc herniation or significant spinal canal narrowing. There is moderate right neural foraminal stenosis secondary to uncovertebral spurring. The left neural foramen is patent. C3-4: No focal disc herniation or significant spinal canal narrowing. There is severe left and at least moderate right neural foraminal stenosis. C4-5: Recent discectomy changes and placement of an intervertebral disc graft. There is moderate spinal canal stenosis and at least mild bilateral neural foraminal narrowing. C5-6: Recent discectomy changes with moderate thecal sac narrowing. There is severe left and mild right neural foraminal stenosis. C6-7: Minimal posterior disc osteophyte ridging without high-grade spinal canal narrowing. There is moderate left and mild right neural foraminal stenosis. C7-T1: No disc herniation, spinal canal or neuroforaminal stenosis. T-spine: Large posterior T2-T3 disc osteophyte complex effaces the ventral CSF signal. Posterior decompression changes at T2-T3. There is mild flattening of the thoracic spinal cord and posterior displacement. Additional levels of mild disc bulges are present without high-grade spinal canal narrowing. Mild/moderate multilevel neural foraminal stenoses are present without severe stenosis. IMPRESSION: 1. Interval C4-C6 ACDF and posterior T2-T3 decompression changes are new since MRI 02/17/2021 without epidural hematoma or abnormal postoperative fluid collection. 2. Slightly decreased craniocaudal extent of focal spinal cord signal abnormality at the level of the T2-T3 disc osteophyte. 3. Multilevel degenerative changes with spinal canal and neural foraminal stenoses as detailed above. DICTATION LOCATION: Location [address] [place] [address] Katherin Patton MD MR ORDERABLES * XR OR SPINAL PROCEDURE OARM (03/13/2021 6:08 PM CLINICAL DIETICIAN) Anatomical Region Laterality Modality Spine Computed Radiogr aphy 03/13/2021 6:09 PM CLINICAL DIETICIAN Impressions 03/13/2021 9:34 PM CLINICAL DIETICIAN IMPRESSION: Intraoperative imaging as above. DICTATION LOCATION: [address] Narrative 03/13/2021 9:34 PM CLINICAL DIETICIAN XR OR SPINAL PROCEDURE OARM DATE: 03/13/2021 6:08 PM CLINICAL INDICATION: Thoracic spine stenosis. ?? COMPARISON: MR thoracic spine without contrast 02/17/2021. TECHNIQUE/FINDINGS: ?? Please note, a radiologist was not present for this examination. Please refer to procedure/operative report for full details. Surgical instrumentation is seen projecting of the T1-T2 interspinous space. Total fluoroscopy time: .07 min. ?? Reference Air Kerma Dose: 4.6 mGy. O-arm Spin: 387 Procedure Note Gabo Hernandez, DO - 03/13/2021 XR OR SPINAL PROCEDURE OARM DATE: 03/13/2021 6:08 PM CLINICAL INDICATION: Thoracic spine stenosis. COMPARISON: MR thoracic spine without contrast 02/17/2021. TECHNIQUE/FINDINGS: Please note, a radiologist was not present for this examination. Please refer to procedure/operative report for full details. Surgical instrumentation is seen projecting of the T1-T2 interspinous space. Total fluoroscopy time: .07 min. Reference Air Kerma Dose: 4.6 mGy. O-arm Spin: 387 IMPRESSION: Intraoperative imaging as above. DICTATION LOCATION: Location [address] [place] [address] Katherin Patton MD DIAGNOSTIC IMAGING O RDERABLES * XR CERVICAL SPINE 1 VW (03/13/2021 4:22 PM CLINICAL DIETICIAN) Anatomical Region Laterality Modality Spine Computed Radiogr aphy 03/13/2021 4:22 PM CLINICAL DIETICIAN Impressions 03/13/2021 8:52 PM CLINICAL DIETICIAN IMPRESSION: 1. ??Intraoperative radiograph as above. DICTATION LOCATION: Location 1 - [facility] Narrative 03/13/2021 8:52 PM CLINICAL DIETICIAN XR CERVICAL SPINE 1 VW DATE: 03/13/2021 4:22 PM CLINICAL INDICATION: Anterior cervical discectomy and fusion at C4-C5 and C5-C6, T2-T3 laminectomy. COMPARISON: Intraoperative imaging performed the same day. TECHNIQUE/FINDINGS: ?? Crosstable lateral intraoperative radiograph demonstrates surgical instrumentation projecting over the C4-C5 disc space. Support tubes are redemonstrated. Visualized cervical alignment is preserved. Procedure Note Florian Hernandezel, DO - 03/13/2021 XR CERVICAL SPINE 1 VW DATE: 03/13/2021 4:22 PM CLINICAL INDICATION: Anterior cervical discectomy and fusion at C4-C5 and C5-C6, T2-T3 laminectomy. COMPARISON: Intraoperative imaging performed the same day. TECHNIQUE/FINDINGS: Crosstable lateral intraoperative radiograph demonstrates surgical instrumentation projecting over the C4-C5 disc space. Support tubes are redemonstrated. Visualized cervical alignment is preserved. IMPRESSION: 1. Intraoperative radiograph as above. DICTATION LOCATION: Location 1 - [facility] Katherin Patton MD DIAGNOSTIC IMAGING O RDERABLES * POC LACTIC ACID (03/13/2021 2:58 PM CLINICAL DIETICIAN) LACTIC ACID POC 1.8 <=2.0 mmol/L 03/13/2021 2:58 PM CLINICAL DIETICIAN [facility] SPECIMEN SOURCE, GASES POC Arterial 03/13/2021 2:58 PM CLINICAL DIETICIAN [facility] LABORATORY [facility] COMMENT, GASES POC RN/MD NOTIFIED 03/13/2021 2:58 PM CLINICAL DIETICIAN [facility] LAB[facility] DIRECTOR ONLINE MARKETING NAME POC SHAN ANDERSON 03/13/2021 2:58 PM CLINICAL DIETICIAN [facility] [employer] [facility] Blood 03/13/2021 2:58 PM CLINICAL DIETICIAN 03/13/2021 3:00 PM CLINICAL DIETICIAN Katherin Patton MD POINT OF CARE TESTIN G [facility] CLIA# [id number] 5 [facility] [place] [address] * (ABNORMAL) BLOOD GAS,(INCL. H+H, LYTES, GLUC) (03/13/2021 2:58 PM CLINICAL DIETICIAN) [facility] PH BLOOD POC 7.31(L) 7.35 - 7.45 03/13/2021 2:58 PM CLINICAL DIETICIAN [employer] LABORATORY SERVICES - [facility] PCO2 POC 49(H) 35 - 48 mm Hg 03/13/2021 2:58 PM CLINICAL DIETICIAN [employer] LABORATORY SERVICES - [facility] PO2 POC 230(H) 83 - 108 mm Hg 03/13/2021 2:58 PM CLINICAL DIETICIAN [employer] LABORATORY SERVICES - [facility] TCO2 (CALC) POC 26(H) 19 - 24 mmol/L 03/13/2021 2:58 PM [facility] [employer] LABORATORY [facility] HCO3 (CALC) POC 25 22 - 26 mmol/L 03/13/2021 2:58 PM [facility] [employer] LABORATORY [facility] O2 SATURATION POC 100(H) 94 - 98 % 03/13/2021 2:58 PM [facility] [employer] LABORATORY SERVICES [facility] BASE EXCESS POC -2 -2 - 3 mmol/L 03/13/2021 2:58 PM [facility] [employer] LABORATORY [facility] - . [facility] HEMOGLOBIN POC 11.5(L) 11.8 - 14.8 g/dL 03/13/2021 2:58 PM [facility] GLUCOSE POC 129(H) 74 - 99 mg/dL 03/13/2021 2:58 PM [facility] [employer] LABORATORY [facility]. [facility] SODIUM POC 137 135 - 145 mmol/L 03/13/2021 2:58 PM [facility] [employer] LABORATORY [facility] POTASSIUM POC 3.8 3.5 - 4.9 mmol/L 03/13/2021 2:58 PM [facility] [employer] LABORATORY [facility] CALCIUM IONIZED POC 4.8 4.8 - 5.2 mg/dL 03/13/2021 2:58 PM [facility] [employer] LABORATORY [facility] PH TEMP CORRECT 7.31(L) 7.35 - 7.45 03/13/20 2:58 PM CLINICAL DIETICIAN [employer] LABORATORY SERVICES [facility]. [place] PCO2 TEMP CORRECT 49(H) 35 - 48 mm Hg 03/13/2021 2:58 PM CLINICAL DIETICIAN [facility] PO2 TEMP CORRECT 230(H) 83 - 108 mm Hg 03/13/2021 2:58 PM CLINICAL DIETICIAN [facility] SPECIMEN SOURCE, GASES POC Arterial 03/13/2021 2:58 PM CLINICAL DIETICIAN [facility] PATIENT'S TEMPERATURE POC 37.0 degrees 03/13/2021 2:58 PM CLINICAL DIETICIAN [facility] COMMENT, GASES POC RN/MD NOTIFIED 03/13/2021 2:58 PM CLINICAL DIETICIAN [facility] DIRECTOR ONLINE MARKETING NAME POC SHAN ANDERSON 03/13/2021 2:58 PM CLINICAL DIETICIAN [facility] Blood, arterial 03/13/2021 2 :58 PM CLINICAL DIETICIAN 03/13/2021 3:00 PM CLINICAL DIETICIAN Katherin Patton MD ABG ORDERABLES Performing Organization Address City/State/[facility] Co de Phone Number [facility]# [id number] [address] [facility] [place] [address] * XR CERVICAL SPINE 1 VW (03/13/2021 2:12 PM CLINICAL DIETICIAN) Anatomical Region Laterality Modality Spine Computed Radiogr aphy 03/13/2021 2:13 PM CLINICAL DIETICIAN Impressions 03/13/2021 5:45 PM CLINICAL DIETICIAN IMPRESSION: 1. ??Intraoperative radiograph as above. DICTATION LOCATION: Location 1 - [facility] Narrative 03/13/2021 5:45 PM CLINICAL DIETICIAN XR CERVICAL SPINE 1 VW DATE: 03/13/2021 2:12 PM CLINICAL INDICATION: Cervical spine surgery. COMPARISON: No relevant studies available. TECHNIQUE/FINDINGS: ?? 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 Extensive overlapping osseous structures are present limiting evaluation. Endotracheal and enteric tubes are partially visualized. Procedure Note Gabo Hernandez DO - 03/13/2021 XR CERVICAL SPINE 1 VW DATE: 03/13/2021 2:12 PM CLINICAL INDICATION: Cervical spine surgery. COMPARISON: No relevant studies available. TECHNIQUE/FINDINGS: Portable crosstable lateral radiograph of the cervical spine demonstrates surgical amputation projecting over the dorsal head neck junction. Extensive overlapping osseous structures are present limiting evaluation. Endotracheal and enteric tubes are partially visualized. IMPRESSION: 1. Intraoperative radiograph as above. DICTATION LOCATION: Location 1 - [facility] Katherin Patton MD DIAGNOSTIC IMAGING O RDERABLES * VERIFICATION BLOOD GROUP (03/13/2021 11:55 AM CLINICAL DIETICIAN) ABO GROUP O 03/13/2021 1:24 PM CLINICAL DIETICIAN [facility] LABORATORY SERVICES -- [facility] RH (D) TYPE Positive 03/13/2021 1:24 PM CLINICAL DIETICIAN [facility] LABORATORY SERVICES -- [facility] Blood Venipuncture / Unknown 03/13/2021 11:55 AM CLINICAL DIETICIAN 03/13/2021 12:17 PM CLINICAL DIETICIAN Naila Brand MD BLOOD BANK ORD ERABLES [facility] LABORATORY [facility] -- [facility] CLIA# [id number] [address] [place] [address] * POC GLUCOSE (03/13/2021 11:12 AM CLINICAL DIETICIAN) GLUCOSE POC 94 74 - 99 mg/dL 03/13/2021 11:12 AM CLINICAL DIETICIAN [facility] LABORATORY [facility] SPECIMEN SOURCE, GLUCOSE POC Whole Blood 03/13/2021 11:12 AM CLINICAL DIETICIAN [facility] LABORATORY [facility] DIRECTOR ONLINE MARKETING NAME POC LEE KERN 03/13/2021 11:12 AM [facility] LABORATORY [facility] Blood, whole 03/13/2021 11:1 2 AM CLINICAL DIETICIAN 03/13/2021 11:42 AM CLINICAL DIETICIAN Katherin Patton MD POINT OF CARE TESTIN G Performing Organization Address City/[facility]/ZIP Co de Phone Number [facility] [employer] [facility] CLIA# [id number] [address] [place] [address] documented in this encounter Visit Diagnoses Not on filedocumented in this encounter Administered Medications Inactive Administered Medications - up to 3 most recent administrations Medication Order MAR Action Action Date Dose Rate Site acetaminophen (TYLENOL) tablet 650 mg 650 mg, Oral, EVERY 6 HOURS PRN, Starting on Wed03/14/21 at 0140, Until Wed03/27/21 at 2245, Other (See Comment), See admin instructions, Routine Given 03/27/2021 5:00 AM CLINICAL DIETICIAN 650 mg Given 03/26/2021 8:27 AM CLINICAL DIETICIAN 650 mg Given 03/25/2021 10:53 PM CLINICAL DIETICIAN 650 mg bisacodyL (DULCOLAX) rectal suppository 10 mg 10 mg, Rectal, DAILY PRN, Starting on Wed03/23/21 at 0815, Until Wed03/27/21 at 2245, Constipation, Routine Given 03/25/2021 10:22 AM CLINICAL DIETICIAN 10 mg dextrose 5% - sodium chloride 0.9% infusion IV, at 40 mL/hr, SEE ADMIN INSTRUCTIONS, Starting on Wed03/14/21 at 1333, Until Wed03/27/21 at 2245, Routine dextrose 50% (D50) syringe 12.5 Gram 12.5 Gram, IV, SEE ADMIN INSTRUCTIONS, Starting on Wed03/14/21 at 1333, Until Wed03/27/21 at 2245, Routine dextrose 50% (D50) syringe 25 Gram 25 Gram, IV, SEE ADMIN INSTRUCTIONS, Starting on Wed03/14/21 at 1333, Until Wed03/27/21 at 2245, Routine docusate sodium (COLACE) capsule 100 mg 100 mg, Oral, TWO TIMES DAILY, First dose on Wed03/13/21 at 2100, Until Discontinued, Routine Given 03/27/2021 9:27 AM CLINICAL DIETICIAN 100 mg Given 03/26/2021 8:15 PM CLINICAL DIETICIAN 100 mg Given 03/26/2021 8:19 AM CLINICAL DIETICIAN 100 mg enoxaparin (LOVENOX) injection 40 mg 40 mg, subCUT, EVERY 24 HOURS, First dose (after last modification) on Wed03/18/21 at 2100, Until Discontinued, Routine, Indication: Prophylaxis of VTE Given 03/27/2021 8:09 PM CLINICAL DIETICIAN 40 mg Abdomen, Left Lower Quadrant Given 03/26/2021 8:16 PM CLINICAL DIETICIAN 40 mg Ab domen, Left Lower Quadrant Given 03/25/2021 8:19 PM CLINICAL DIETICIAN 40 mg Ab domen, Right Lower Quadrant fludrocortisone (FLORINEF) tablet 0.2 mg 0.2 mg, Oral, DAILY, First dose (after last modification) on Wed03/23/21 at 1000, Until Discontinued, Routine Given 03/27/2021 9:28 AM CLINICAL DIETICIAN 0.2 mg Given 03/26/2021 10:20 AM CLINICAL DIETICIAN 0.2 mg Given 03/25/2021 10:20 AM CLINICAL DIETICIAN 0.2 mg fluticasone propionate (FLONASE) 50 mcg/spray nasal inhaler 2 [place] 2 [place], Both Nostrils, DAILY, First dose on Wed03/14/21 at 0900, Until Discontinued, Routine, Previous Med: fluticasone propionate (FLONASE) 50 mcg/spray [place], Suspension nasal inhaler - Orig Sig - Administer 2 Sprays in each nostril daily. Given 03/27/2021 9:41 A M CLINICAL DIETICIAN 2 Sprays Given 03/26/2021 8:19 AM CLINICAL DIETICIAN 2 Sprays Given 03/25/2021 10:22 AM CLINICAL DIETICIAN 2 Sprays gabapentin (NEURONTIN) capsule 200 mg 200 mg, Oral, EVERY 8 HOURS, First dose (after last modification) on Wed03/17/21 at 1300, Until Discontinued, Routine Given 03/27/2021 8:08 PM CLINICAL DIETICIAN 200 mg Given 03/27/2021 2:44 PM CLINICAL DIETICIAN 200 mg Given 03/27/2021 5:02 AM CLINICAL DIETICIAN 200 mg glucagon HCL 1 mg/mL injection 1 mg 1 mg, IM, SEE ADMIN INSTRUCTIONS, Starting on Wed03/14/21 at 1333, Until Wed03/27/21 at 2245, Routine lidocaine-EPINEPHrine (XYLOCAINE-EPI) 1 %-1:100,000 injection INTRA-PROCEDURE PRN, Starting on Wed03/13/21 at 1400, Until Wed03/13/21 at 1655, Routine, Intra-op Given 03/13/2021 2:00 PM CLINICAL DIETICIAN 10 mL Opera tive Site midodrine (PROAMATINE) tablet 15 mg 15 mg, Oral, EVERY 8 HOURS, First dose (after last modification) on Wed03/22/21 at 1300, Until Discontinued, Routine Given 03/27/2021 8:07 PM CLINICAL DIETICIAN 15 mg Given 03/27/2021 2:44 PM CLINICAL DIETICIAN 15 mg Given 03/27/2021 5:00 AM CLINICAL DIETICIAN 15 mg ondansetron (ZOFRAN) 4 mg/2 mL injection 4 mg 4 mg, IV, EVERY 6 HOURS PRN, Starting on Wed03/14/21 at 0141, Until Wed03/27/21 at 2245, Nausea/Emesis, Routine Given 03/23/2021 9:08 AM CLINICAL DIETICIAN 4 mg Given 03/21/2021 8:22 PM CLINICAL DIETICIAN 4 mg Given 03/21/2021 8:34 AM CLINICAL DIETICIAN 4 mg pantoprazole (PROTONIX) tablet 40 mg 40 mg, Oral, DAILY BEFORE BREAKFAST, First dose (after last modification) on Wed03/20/21 at 0600, Until Discontinued, Routine, Previous Med: pantoprazole (PROTONIX) 40 mg Tablet, Delayed Release (E.C.) - Orig Sig - Take 1 Tablet by mouth 2 times daily. , Indication: Gastroesophageal reflux disease (GERD) Given 03/27/2021 5:03 AM CLINICAL DIETICIAN 40 mg Given 03/26/2021 5:29 AM CLINICAL DIETICIAN 40 mg Given 03/25/2021 6:08 AM CLINICAL DIETICIAN 40 mg polyethylene glycol (MIRALAX) packet 17 Gram 17 Gram, Oral, DAILY, First dose on Wed03/19/21 at 0945, Until Discontinued, Routine Given 03/27/2021 9:36 AM CLINICAL DIETICIAN 17 Grams Given 03/26/2021 8:19 AM CLINICAL DIETICIAN 17 Grams Given 03/25/2021 10:20 AM CLINICAL DIETICIAN 17 Grams sodium chloride 0.9 % irrigation solution INTRA-PROCEDURE PRN, Starting on Wed03/13/21 at 1359, Until Wed03/13/21 at 1655, Routine, Intra-op Given 03/13/2021 1:59 PM CLINICAL DIETICIAN 1,000 mL Opera tive Site sodium chloride tablet 3 Gram 3 Gram, Oral, EVERY 8 HOURS, First dose (after last modification) on Wed03/23/21 at 0830, Until Discontinued, Routine Given 03/27/2021 8:07 PM CLINICAL DIETICIAN 3 Grams Given 03/27/2021 2:45 PM CLINICAL DIETICIAN 3 Grams Given 03/27/2021 5:02 AM CLINICAL DIETICIAN 3 Grams tiZANidine (ZANAFLEX) tablet 4 mg 4 mg, Oral, EVERY 8 HOURS, First dose on Wed03/26/21 at 0930, Until Discontinued, Routine Given 03/27/2021 4:33 PM CLINICAL DIETICIAN 4 mg Given 03/27/2021 9:29 AM CLINICAL DIETICIAN 4 mg Given 03/26/2021 11:35 PM CLINICAL DIETICIAN 4 mg zolpidem (AMBIEN) tablet 5 mg 5 mg, Oral, NIGHTLY PRN, Starting on Wed03/25/21 at 2238, Until Wed03/27/21 at 2245, Insomnia, Routine documented in this encounter Active and Recently Administered Medications Times are shown in CLINICAL DIETICIAN. Scheduled Medication Order 03/25/2021 03/26/2021 03/27/2021 dextrose 5% - sodium chloride 0.9% infusion IV, at 40 mL/hr, SEE ADMIN INSTRUCTIONS, Starting on Wed03/14/21 at 1333, Until Wed03/27/21 at 2245, Routine dextrose 50% (D50) syringe 12.5 Gram 12.5 Gram, IV, SEE ADMIN INSTRUCTIONS, Starting on Wed03/14/21 at 1333, Until Wed03/27/21 at 2245, Routine dextrose 50% (D50) syringe 25 Gram 25 Gram, IV, SEE ADMIN INSTRUCTIONS, Starting on Wed03/14/21 at 1333, Until Wed03/27/21 at 2245, Routine docusate sodium (COLACE) capsule 100 mg 100 mg, Oral, TWO TIMES DAILY, First dose on Wed03/13/21 at 2100, Until Discontinued, Routine 1020 (Given - Provider: Rupali Chavarria RN)2018 (Given - Provider: MXA Antonio) 818 (Given - Provider: Martha Rankin RN)2014 (Given - Provider: MAX Antonio) 926 (Given - Provider: Rupali Shirley RN)2007 (Refused - Provider: Mariela Martinez RN) enoxaparin (LOVENOX) injection 40 mg 40 mg, subCUT, EVERY 24 HOURS, First dose (after last modification) on Wed03/18/21 at 2100, Until Discontinued, Routine, Indication: Prophylaxis of VTE 2018 (Given - Provider: MAX Antonio) 2015 (Given - Provider: MAX Antoino) 2008 (Given - Provider: Mariela Martinez RN) fludrocortisone (FLORINEF) tablet 0.2 mg 0.2 mg, Oral, DAILY, First dose (after last modification) on Wed03/23/21 at 1000, Until Discontinued, Routine 1020 (Given - Provider: Rupali Chavarria RN) 1020 (Given - Provider: Martha Rankin RN) 0928 (Given - Provider: Rupali Shirley RN) fluticasone propionate (FLONASE) 50 mcg/spray nasal inhaler 2 [place] 2 [place], Both Nostrils, DAILY, First dose on Wed03/14/21 at 0900, Until Discontinued, Routine, Previous Med: fluticasone propionate (FLONASE) 50 mcg/spray [place], Suspension nasal inhaler - Orig Sig - Administer 2 Sprays in each nostril daily. 1022 (Given - Provider: Rupali Chavarria RN) 0819 (Given - Provider: Martha Rankin RN) 0941 (Given - Provider: Rupali Shirley RN) gabapentin (NEURONTIN) capsule 200 mg 200 mg, Oral, EVERY 8 HOURS, First dose (after last modification) on Wed03/17/21 at 1300, Until Discontinued, Routine 0608 (Given - Provider: David Robb RN)1205 (Given - Provider: Rupali Chavarria RN)2016 (Given - Provider: MAX Antonio) 0527 (Given - Provider: MAX Antonio)1432 (Given - Provider: Martha Rankin RN)2014 (Given - Provider: MAX Antonio) 0502 (Given - Provider: MAX Antonio)1444 (Given - Provider: Rupali Shirley RN)2007 (Given - Provider: Mariela Martinez RN) glucagon HCL 1 mg/mL injection 1 mg 1 mg, IM, SEE ADMIN INSTRUCTIONS, Starting on Wed03/14/21 at 1333, Until Jerilyn 03/27/21 at 2245, Routine midodrine (PROAMATINE) tablet 15 mg 15 mg, Oral, EVERY 8 HOURS, First dose (after last modification) on Wed03/22/21 at 1300, Until Discontinued, Routine 0608 (Given - Provider: David Robb RN)1205 (Given - Provider: Rupali Chavarria RN)2017 (Given - Provider: MAX Antonio) 527 (Given - Provider: MAX Antonio)143 (Given - Provider: Martha Rankin, RN)2013 (Given - Provider: MAX Antonio) 499 (Given - Provider: MAX Antonio)144 (Given - Provider: Rupali Shirley RN)2006 (Given - Provider: Mariela Martinez RN) naloxone (NARCAN) 0.4 mg/mL injection 0.1 mg 0.1 mg, IV, SEE ADMIN INSTRUCTIONS, Starting on Wed03/13/21 at 1827, Until Wed03/27/21 at 2245, Routine pantoprazole (PROTONIX) tablet 40 mg 40 mg, Oral, DAILY BEFORE BREAKFAST, First dose (after last modification) on Wed03/20/21 at 0600, Until Discontinued, Routine, Previous Med: pantoprazole (PROTONIX) 40 mg Tablet, Delayed Release (E.C.) - Orig Sig - Take 1 Tablet by mouth 2 times daily. , Indication: Gastroesophageal reflux disease (GERD) 0608 (Given - Provider: David Robb RN) 05 (Given - Provider: MAX Antonio) 050 (Given - Provider: MAX Antonio) polyethylene glycol (MIRALAX) packet 17 Gram 17 Gram, Oral, DAILY, First dose on Wed03/19/21 at 0945, Until Discontinued, Routine 1020 (Given - Provider: Rupali Chavarria, TOMMY) 0819 (Given - Provider: Martha Rankin, TOMMY) 0936 (Given - Provider: Rupali Shirley RN) sodium chloride tablet 3 Gram 3 Gram, Oral, EVERY 8 HOURS, First dose (after last modification) on Wed03/23/21 at 0830, Until Discontinued, Routine 0609 (Given - Provider: David Robb RN)120 (Given - Provider: Rupali Chavarria, TOMMY)2016 (Given - Provider: MAX Antonio) 05 (Given - Provider: MAX Antonio)143 (Given - Provider: Martha Rankin, TOMMY)2099 (Refused - Provider: MAX Antonio - Comment: Patient just took dose from earlier today) 050 (Given - Provider: MAX Antonio)1445 (Given - Provider: Rupali Shirley RN)2006 (Given - Provider: Mariela Martinez RN) tiZANidine (ZANAFLEX) tablet 4 mg 4 mg, Oral, EVERY 8 HOURS, First dose on Wed03/26/21 at 0930, Until Discontinued, Routine 0930 (Not Given - Provider: Martha Rankin RN - Reason: Other - See Comment - Comment: medication wasn't sent up from pharmacy)1621 (Given - Provider: Martha Rankin RN)2335 (Given - Provider: MAX Antonio) 0929 (Given - Provider: Rupali Shirley RN)1633 (Given - Provider: Radha Kapoor RN) Continuous Medication Order 03/25/2021 03/26/2021 03/27/2021 norepinephrine bitartrate-NS 8 mg/250 mL (32 mcg/mL) infusion (CANCELED) 0-0.2 mcg/kg/min ? 83.9 kg (0-31.4625 mL/hr, rounded to 0-31.46 mL/hr), IV, TITRATE, Starting on Wed03/24/21 at 0945, Until Wed03/25/21 at 0838, Routine, Should this infusion be titrated? Yes, Is this a CABG patient? No, Initial infusion dose? 0.05 mcg/kg/min, Titration Dose Increment? 0.05 mcg/kg/min, Titration Interval? 10 minutes, Goal Type? MAP Goal, MAP Goal? Other (see comments) / > 60, Goal: MAP >60 0000 (Rate Change - Provider: David Robb RN)0100 (Rate Change - Provider: David Robb RN)0400 (Rate Change - Provider: David Robb RN)0610 (Stopped - Provider: David Robb RN) PRN Medication Order 03/25/2021 03/26/2021 03/27/2021 acetaminophen (TYLENOL) tablet 650 mg 650 mg, Oral, EVERY 6 HOURS PRN, Starting on Wed03/14/21 at 0140, Until Jerilyn 03/27/21 at 2245, Other (See Comment), See admin instructions, Routine 1020 (Given - Provider: Rupali Chavarria RN)2253 (Given - Provider: MAX Antonio) 0827 (Given - Provider: Martha Rankin RN) 0500 (Given - Provider: MAX Antonio) bisacodyL (DULCOLAX) rectal suppository 10 mg 10 mg, Rectal, DAILY PRN, Starting on Wed03/23/21 at 0815, Until Jerilyn 03/27/21 at 2245, Constipation, Routine 1022 (Given - Provider: Rupali Chavarria RN) cyclobenzaprine (FLEXERIL) tablet 5 mg (CANCELED) 5 mg, Oral, THREE TIMES DAILY PRN, Starting on Wed03/25/21 at 0933, Until Wed03/26/21 at 0844, Spasm, Routine 1012 (Return to Cabinet - Provider: Rupali Chavarria RN)1829 (Given - Provider: Martha Rankin RN) ondansetron (ZOFRAN) 4 mg/2 mL injection 4 mg 4 mg, IV, EVERY 6 HOURS PRN, Starting on Wed03/14/21 at 0141, Until Wed03/27/21 at 2245, Nausea/Emesis, Routine zolpidem (AMBIEN) tablet 5 mg 5 mg, Oral, NIGHTLY PRN, Starting on Wed03/25/21 at 2238, Until Wed03/27/21 at 2245, Insomnia, Routine 2248 (Return to Cabinet - Provider: MAX Antonio) documented in this encounter Care Teams Hearing Health Technician Relationship Specialty Start Date End Date Huang Alonso MD [address] [place] [id number] PCP - General Family Practice 10/03/13 05/06/22 documented as of this encounter
--- OUTSIDE RECORDS SUMMARY | 2024-04-13 08:44 | XMS_ITS | Encounter Summary ---
Author Organization [facility] Address [address] [place] [address] Care Team Providers Care Pilot Instructor Name Role Phone Huang Alonso MD Primary Care Provider [phone] Reason for Visit * Auth/Cert Specialty Diagnoses / Procedures Referred By Contac t Referred To Contact Diagnoses Cervicalgia NECK PAIN Procedures CO ARTHRODESIS ANT INTERBODY INC DISCECTOMY, CERVICAL BELOW C2 CO ARTHRODESIS ANT INTERBODY INC DISCECTOMY, CERV BELOW C2 EACH ADDL CO ANTERIOR INSTRUMENTATION 4-7 VERTEBRAL SEGMENTS CO ALLOGRAFT FOR SPINE SURGERY ONLY STRUCTURAL CO LAMINEC/FACETECT/FORAMIN,THORAC IC 1 SEG C 4/5 & C5/6 ACDF, T 2/3 laminectomy Katherin Larios MD [address] [address] x0 Referral ID Status Reason Start Date Expiration Date Visits Re quested Visits Authorized [id number] 02/12/2021 1 1 Encounter Details Date Type Department Care Team (Latest Contact Info) Description 03/13/2021 10:00 AM MOVIE THEATER USHER - 03/27/2021 10:38 PM [facility] Hospital Encounter [facility] Neurology [address] [place] [id number] Katherin Larios MD [address] [phone] (Work) Grover eVliz MD [address] [place] [address] Lalit Ortiz, DO [address] [facility] [address] [place] [address] [place] [address] [place] [address] Loi Omalley MD [address] [facility] [address] [place] [address] Cord compression Discharge Disposition: Rehab Facility IP Social History Tobacco Use Types Packs/Day Years [...] COVID-19? No / Unsure 03/13/2021 10:01 AM MOVIE THEATER USHER documented as of this encounter Last Filed Vital Signs Vital Sign Reading Time Taken Comments Blood Pressure 121/59 03/27/2021 8:46 PM MOVIE THEATER USHER Pulse 97 03/27/2021 8:46 PM MOVIE THEATER USHER Temperature 36.9 ??C (98.4 ??F) 03/27/2021 8:46 PM CS T Respiratory Rate 18 03/27/2021 8:46 PM MOVIE THEATER USHER Oxygen Saturation 97% 03/27/2021 8:46 PM MOVIE THEATER USHER Inhaled Oxygen Concentration - - Weight 83.9 kg (185 lb) 03/13/2021 10:10 AM MOVIE THEATER USHER Height 160 cm (5' 3 ) 03/14/2021 1:30 AM MOVIE THEATER USHER Body Mass Index 32.77 03/13/2021 10:10 AM MOVIE THEATER USHER documented in this encounter Discharge Summaries * Ermelinda Roger PA - 03/27/2021 1:38 PM CST DISCHARGE SUMMARY and HALF-WAY ORDERS AT TRANSITION OF CARE Vick Tanner 65 y.o. female 1955 CSN: [id number] Date of Admission: 03/13/2021 Document Creation Date: [...] have to be an anterior transthoracic approach and after discussion with patient and family it was [...] has improved slowly and she will benefit from some acute rehab. But no patient's surgical wound [...] 2 times daily. Signed by: Dr. Katherin Larios MD Refills: 0 gabapentin 100 mg capsule Commonly known as: NEURONTIN Take 2 Capsules (200 mg) by mouth every 8 hours. Signed by: Dr. Katherin Larios MD Refills: 0 sodium chloride 1 gram tablet Take 1 Tablet (1 Gram) by mouth every 8 hours. Signed by: Dr. Katherin Larios MD Refills: 0 tiZANidine 4 mg Tablet Commonly known as: ZANAFLEX Take 1 Tablet (4 mg) by mouth every 6 hours as needed for Spasm. Signed by: DEDE Castro Quantity: 30 Tablet Refills: 0 traMADoL 50 mg tablet Commonly known as: ULTRAM Take 2 Tablets (100 mg) by mouth every 6 hours as needed for Pain. Signed by: Dr. Katherin Larios MD Quantity: 40 Tablet Refills: 0 zolpidem 5 mg tablet Commonly known as: AMBIEN Take 1 Tablet (5 mg) by mouth nightly as needed for Insomnia. Signed by: Dr. Katherin Larios MD Refills: 0 CONTINUE taking these medications fluticasone propionate 50 mcg/spray Bear, Suspension nasal inhaler Commonly known as: FLONASE [...] Your Medications These medications were sent to [id number] - [place], [place] - [address] [facility] [address] [facility] [address] [facility] [address], [place] [address] Hours: 24-hours ?? tiZANidine 4 mg Tablet [...] up Recommendations: ?? Follow up with Dr. Larios in 2-3 weeks removal, call for appt at [phone]. Discharge Condition: improving. Prognosis: good to fair [...] form): Immunization History Administered Date(s) Administered ??? (AppMyDay) (12 YR UP) COVID-19 VACCINE - EMERGENCY USE AUTHORIZATION, MRNA,[id number](PF) 30 MCG/0.3 ML IM SUSP 05/25/2020, 06/16/2020, 02/14/2021 I certify that I have reviewed the medications, that each medication has a discrete dose, frequency, and route, and that they are accurate. Duplicates, if they exist, are intentional and initialed to certify their accuracy. All insulin regimens and anticoagulants, if present, are correct and initialed to certify their accuracy. I have fulfilled the JCO requirement for H&P by: I have prepared or dictated a discharge summary which includes a systems review. I certify that the post hospital SNF services are required to be given on an inpatient basis because of the above named patient's need for intermediate care on a continuing basis for the condition(s) for which he/she was receiving inpatient hospital services prior to his/her transfer to SNF. Medication Reconciliation must be signed: D[facility]E [facility] Neurosurgery Office number: [phone] Accepting Physician: Print Name: Date: Contact Information for Medication Questions: I have reviewed the above medications and certify that they are accurate for new orders. I crossed out any medications that I do not want to be continued. E THEATER USHER documented in this encounter Discharge Instructions * Discharge Instructions* Dougie Bell PA - 03/13/2021 1:21 PM MOVIE THEATER USHER Thank you for choosing [facility] for your care! The following is [...] have a follow-up appointment made, call Dr. Larios's office in the next 1-3 days to [...] fusing and healing from this surgery. Dr. Larios may advise you to work with a [...] food bags, a child, or a vacuum cleaner and presser. ?? Avoid strenuous activities, such as bicycle [...] medicines exactly as directed. ?? If Dr. Larios gave you a prescription medicine for pain, [...] medication and muscle relaxants and try taking gehd-ooh-xrlessk Extra Strength Tylenol for pain relief. Incision [...] after taking a laxative. Contact information : [facility] Office #: [phone] 8:30am- 4:30pm Wed-Wednesday Exchange#: [phone] After-hours Emergency contact E THEATER USHER documented in this encounter Medications at Time [...] needed. 04/18/2021 fluticasone propionate (FLONASE) 50 mcg/spray Bear, Suspension nasal inhaler Administer 2 Sprays in each nostril daily. 04/18/2021 documented as of this encounter Progress Notes * Mariela Martinez RN - 03/27/2021 7:58 PM CST 1954 Called [facility] to get an ETA. Dispatcher stated it will be 30 minutes. E THEATER USHER * Yulia Strange RN - 03/27/2021 12:50 PM CST 03/27/21 1249 Final Discharge Arrangements Anticipated Discharge Disposition [facility]hab Care [facility] Contact Name [facility] Transportation Provider [facility] Transportation Provider Date [...] MD is Socorro, who can bereached at [phone]. [place] x [phone] E THEATER USHER * Marli Mathur RD - 03/27/2021 10:27 AM CST Images from the original note were not included. CLINICAL DIETITIAN PROGRESS NOTE [facility] Follow Up Nutrition Assessment Patient is incontinent [...] up every 4-7 days and as needed. 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 Skin & Dressings: intact Drains: none Anti-embolism Measures stockings were worn throughout shift -- currently off patient. Safety: fair Critical Labs: Notes: E THEATER USHER * Amanda Barbosa - 03/26/2021 4:40 PM CST Met with patient regarding [facility] and explained that she would need [...] when I mentioned her sister helping at [facility] she said that was just for a day or 2 with admission. Will need to identify appropriate discharge plan from rehab. E THEATER USHER * Tiara Alvares - 03/26/2021 1:25 PM CST Following for Acute Rehab. Patient will need to be able to tolerate 3 hours of therapy to include OOB therapy with a solid discharge plan to return to the community. Will continue to follow. E THEATER USHER * Ermelinda Roger PA - 03/26/2021 9:39 AM CST Neurosurgery Progress Note Vick Tanner 1955 Ready to get out of hospital, very interested in rehab Active Hospital Problems Diagnosis ??? Hyponatremia ??? Brown-Sequard syndrome ??? Urinary retention ??? Neurological deficit present ??? Cord compression ??? Cervical spondylosis with radiculopathy Resolved Hospital Problems No resolved problems to display. Vitals: 03/25/21202703/26/21 0003 03/26/21 0410 03/26/21 0840 BP: 110/55 [...] for full anticoagulation if needed at rehab ALVERTO CrowleyC 03/26/2021 E THEATER USHER * Yulia Escudero - 03/26/2021 6:55 AM CST met with Pt and offered support. Pt stated that she is doing well and have no needs. School Physical Therapist conveyed understanding and will remain available. Chaplain Yulia Hernandez #[id number] E THEATER USHER * Tab Jonas MD - 03/25/2021 11:08 AM CST CCM Transfer Note 03/25/2021 11:08 AM Patient transferring to Neurosurgery Physician /PA/ HEAD INSULATION BOARD SAW OPERATOR Communication: Tab Jonas MD called/paged accepting physician's service at 03/25/21 at 11:08 AM. Assigned physician: Katherin Greene E THEATER USHER * Tab Jonas MD - 03/25/2021 8:36 [...] &??C5/6 ??and posterior decompression/laminectomy??at T2-[address] Larios. Post operatively patient had development of left [...] for spasms ?? Cardiovascular/Fluids: HTN - hold RUG CLEANER meds ?? Pulmonary: On RA, No issues [...] Access : CVC GI prophylaxis : ppi dredge captain DVT prophylaxis : lovenox Code status : [...] (36.9 ??C), Max:99.3 ??F (37.4 ??C) Input/Output 03/23 1900 - 03/25 0659 In: 3237.5 [P.O.:2850; I.V.:387.5] [...] appears preserved Data Review: BMP: Recent Labs 03/23/2162203/24/212 03/25/21611 GLUCOSE 121* 129* 103* BUN 32* 35* [...] the last 72 hours. CBC: Recent Labs 03/23/2162203/24/2135103/25/21611 WBC 19.5* 10.9* 7.3 HGB 12.5 11.2* 9.5* HCT 38.3 35.0* 31.2* PLT 312 241 181 MCV 90.3 92.6 96.9 Coagulation: No results for input(s): PT, INR, APTT in the last 72 hours. ABG: No results found for: PHARTERIAL, KMD7UOY, PO2ART, XDY4CGL, BASEEXCESS, SO2ABG Central VBG: No results found for: PHMIXEDVEN, SQ3QQJARWC, IFH6ATRVWA, QVU6FJNLY, FA9GFDU Lactic acid: Lab Results Component Value Date/Time [...] focal consolidation.. DICTATION LOCATION: Location 1 - [facility] Active Hospital Problems Diagnosis ??? Hyponatremia ??? Brown-Sequard syndrome ??? Urinary retention ??? Neurological deficit present ??? Cord compression ??? Cervical spondylosis with radiculopathy Resolved Hospital Problems No resolved problems to display. Jocelin Goins MD Critical Care Fellow 03/25/21 8:36 AM E THEATER USHER * Katherin Larios MD - 03/25/2021 8:30 AM CST In good spirits this morning Right leg is stronger and left leg is improving as well Left leg now has some proximal muscle contraction Transfer out of ICU and set rehab up as soon as we can get her a bed Katherin Larios MD E THEATER USHER * Loi Omalely MD - 03/25/2021 7:53 AM CST Critical Care Daily Note Reason for ICU admission: Cervical stenosis with spinal cord edema I reviewed the medical record including the applicable Critical Care Medicine resident, Fellow, HEAD INSULATION BOARD SAW OPERATOR or PA???s note from today. I independently examined the patient. I discussed the history, physical findings, laboratory findings, assessment and plan with the applicable resident/Fellow/HEAD INSULATION BOARD SAW OPERATOR/PA on rounds. I have reviewed the physical exam findings in the applicable resident/Fellow/HEAD INSULATION BOARD SAW OPERATOR/PA's note; my notable physical exam findings include: [...] the assessment and plan in the applicable resident/Fellow/HEAD INSULATION BOARD SAW OPERATOR/PA's note. Notable amendments to the assessment and [...] Hospital Problems No resolved problems to display. E THEATER USHER * David Robb RN - 03/25/2021 12:10 [...] skin issues. Anterior & posterior neck incisions DRESS SHOE INSPECTOR ?? Patient Goals Not Met: Coordinate rehab. E THEATER USHER * Tiara Alvares - 03/24/2021 1:15 PM CST Acute Rehab following. Pending medical stability, progression with therapy and physician approval. Patient will require dopplers if unable to be fully anticoagulated if needed at rehab. Will continueto follow. E THEATER USHER * Radha Chanel PA - 03/24/2021 12:12 PM CST Neurosurgery Progress Note Vick Carter Ciro 1955 No new events overnight. Continued to [...] stockings and Lovenox. Radha Chanel PA-C 03/24/2021 E THEATER USHER * Vick Higgins RD - 03/24/2021 11:18 AM CST Images from the original note were not included. CLINICAL DIETITIAN PROGRESS NOTE [facility] Follow Up Nutrition Assessment Vick??is a 65 [...] up every 4-7 days and as needed. E THEATER USHER * Loi Omalley MD - 03/24/2021 9:32 AM CST Critical Care Daily Note Reason for ICU admission: Cervical stenosis with spinal cord edema I reviewed the medical record including the applicable Critical Care Medicine resident, Fellow, HEAD INSULATION BOARD SAW OPERATOR or PA???s note from today. I independently examined the patient. I discussed the history, physical findings, laboratory findings, assessment and plan with the applicable resident/Fellow/HEAD INSULATION BOARD SAW OPERATOR/PA on rounds. I have reviewed the physical exam findings in the applicable resident/Fellow/HEAD INSULATION BOARD SAW OPERATOR/PA's note; my notable physical exam findings include: [...] the assessment and plan in the applicable resident/Fellow/HEAD INSULATION BOARD SAW OPERATOR/PA's note. Notable amendments to the assessment and [...] Hospital Problems No resolved problems to display. E THEATER USHER * Jocelin Goins MD - 03/24/2021 8:51 [...] &??C5/6 ??and posterior decompression/laminectomy??at T2-[address] Larios. Post operatively patient had development of left [...] TID - florinef 0.2 HTN - hold RUG CLEANER meds ?? Pulmonary: On RA, No issues [...] Access : CVC GI prophylaxis : ppi dredge captain DVT prophylaxis : lovenox Code status : [...] of 0.97 mg/dL (H)). LFTs: Recent Labs 03/22/21 0553 ALBUMIN 3.3* CBC: Recent Labs 03/22/21 0553 03/23/2123 03/24/21 0352 WBC 10.0* 19.5* 10.9* HGB 12.3 12.5 11.2* HCT 38.8 38.3 35.0* PLT 267 312 241 MCV 92.2 90.3 92.6 Coagulation: No results for input(s): PT, INR, APTT in the last 72 hours. ABG: No results found for: PHARTERIAL, GJU8UXO, PO2ART, PMR4JKQ, BASEEXCESS, SO2ABG Central VBG: No results found for: PHMIXEDVEN, CT6VAFGNAY, UQQ9ITXSGN, AKR4YQPFK, NI3BSSX Lactic acid: Lab Results Component Value Date/Time [...] focal consolidation.. DICTATION LOCATION: Location 1 - [facility] Problems Diagnosis ??? Neurological deficit present ??? Cord compression ??? Cervical spondylosis with radiculopathy Resolved Hospital Problems No resolved problems to display. Jocelin Goins MD Critical Care Fellow 03/24/21 8:51 AM E THEATER USHER * Silvestre Levine, DO - 03/23/2021 8:45 AM CST Critical Care Daily Note Reason for ICU admission: Cervical stenosis with spinal cord edema I reviewed the medical record including the applicable Critical Care Medicine resident, Fellow, HEAD INSULATION BOARD SAW OPERATOR or PA???s note from today. I independently examined the patient. I discussed the history, physical findings, laboratory findings, assessment and plan with the applicable resident/Fellow/HEAD INSULATION BOARD SAW OPERATOR/PA on rounds. I have reviewed the physical exam findings in the applicable resident/Fellow/HEAD INSULATION BOARD SAW OPERATOR/PA's note; my notable physical exam findings include: [...] the assessment and plan in the applicable resident/Fellow/HEAD INSULATION BOARD SAW OPERATOR/PA's note. Notable amendments to the assessment and [...] Hospital Problems No resolved problems to display. E THEATER USHER * Jocelin Goins MD - 03/23/2021 8:10 [...] &??C5/6 ??and posterior decompression/laminectomy??at T2-[address] Larois. Post operatively patient had development of left [...] TID - florinef 0.2 HTN - hold RUG CLEANER meds ?? Pulmonary: On RA, No issues [...] Access : CVC GI prophylaxis : ppi dredge captain DVT prophylaxis : lovenox Code status : [...] hours. ABG: No results found for: PHARTERIAL, WZK0NYZ, PO2ART, QTM3MKC, BASEEXCESS, SO2ABG Central VBG: No results found for: PHMIXEDVEN, RL1PSRDEPJ, ATL0QPSKPO, CCC2WVAWM, XX4BOUY Lactic acid: Lab Results Component Value Date/Time [...] focal consolidation.. DICTATION LOCATION: Location 1 - [facility] Active Hospital Problems Diagnosis ??? Neurological deficit present ??? Cord compression ??? Cervical spondylosis with radiculopathy Resolved Hospital Problems No resolved problems to display. Jocelin Goins MD Critical Care Fellow 03/23/21 8:10 AM E THEATER USHER * Erik Sierra MD - 03/23/2021 7:26 AM CST Neurosurgery [...] stockings and Lovenox. Erik Sierra MD 03/23/2021 E THEATER USHER * Jocelin Goins MD - 03/22/2021 10:17 [...] &??C5/6 ??and posterior decompression/laminectomy??at T2-[address] Larios. Post operatively patient had development of left [...] 15 TID - florinef HTN - hold RUG CLEANER meds ?? Pulmonary: On RA, No issues [...] Access : CVC GI prophylaxis : ppi dredge captain DVT prophylaxis : lovenox Code status : [...] appears preserved Data Review: BMP: Recent Labs 03/20/21 0437 03/21/21 0608 03/22/21 0553 GLUCOSE 120* 120* 113* 112* BUN [...] SCr of 0.83 mg/dL). LFTs: Recent Labs 03/20/21 0437 03/21/21 0608 03/22/21 0553 ALBUMIN 3.1* 3.3* 3.3* CBC: Recent Labs 03/20/21 0437 03/21/21 0608 03/22/21 0553 WBC 12.1* 10.4* 10.0* HGB 12.5 12.0 12.3 HCT 37.9 37.7 38.8 PLT 305 255 267 MCV 91.5 92.0 92.2 Coagulation: No results for input(s): PT, INR, APTT in the last 72 hours. ABG: No results found for: PHARTERIAL, OSR2BPO, PO2ART, IFS9NGY, BASEEXCESS, SO2ABG Central VBG: No results found for: PHMIXEDVEN, TP0ECMKHII, UBQ5YUHDAA, ABT8XCYTT, CD9ASLS Lactic acid: Lab Results Component Value Date/Time [...] focal consolidation.. DICTATION LOCATION: Location 1 - [facility] Problems Diagnosis ??? Neurological deficit present ??? Cord compression ??? Cervical spondylosis with radiculopathy Resolved Hospital Problems No resolved problems to display. Jocelin Goins MD Critical Care Fellow 03/22/21 10:17 AM E THEATER USHER * Erik Sierra MD - 03/22/2021 10:09 [...] is more predictable. Erik Sierra MD 03/22/2021 E THEATER USHER * Silvestre Levine, DO - 03/22/2021 9:16 AM CST Critical Care Daily Note Reason for ICU admission: Cervical stenosis with spinal cord edema I reviewed the medical record including the applicable Critical Care Medicine resident, Fellow, HEAD INSULATION BOARD SAW OPERATOR or PA???s note from today. I independently examined the patient. I discussed the history, physical findings, laboratory findings, assessment and plan with the applicable resident/Fellow/HEAD INSULATION BOARD SAW OPERATOR/PA on rounds. I have reviewed the physical exam findings in the applicable resident/Fellow/HEAD INSULATION BOARD SAW OPERATOR/PA's note; my notable physical exam findings include: [...] the assessment and plan in the applicable resident/Fellow/HEAD INSULATION BOARD SAW OPERATOR/PA's note. Notable amendments to the assessment and [...] Hospital Problems No resolved problems to display. E THEATER USHER * Adelaida Martin MD - 03/21/2021 10:10 PM CST [employer] - Critical Care Physician Note 10:10 PM Physician: Adelaida Martin MD Virtual ticket received Labs/Notes briefly reviewed. Problem: Hypotension. intervention/follow up/discussion: MAP goal should be augmented in this patient to > 70, however currently lower. Was on Levophed this afternoon, order was discontinued. Reorder Levophed, pt has central access. Call [employer] if assistance needed ([phone]) E THEATER USHER * Silvestre Levine DO - 03/21/2021 9:30 AM CST Critical Care Daily Note Reason for ICU admission: Cervical stenosis with spinal cord edema I reviewed the medical record including the applicable Critical Care Medicine resident, Fellow, HEAD INSULATION BOARD SAW OPERATOR or PA???s note from today. I independently examined the patient. I discussed the history, physical findings, laboratory findings, assessment and plan with the applicable resident/Fellow/HEAD INSULATION BOARD SAW OPERATOR/PA on rounds. I have reviewed the physical exam findings in the applicable resident/Fellow/HEAD INSULATION BOARD SAW OPERATOR/PA's note; my notable physical exam findings include: [...] the assessment and plan in the applicable resident/Fellow/HEAD INSULATION BOARD SAW OPERATOR/PA's note. Notable amendments to the assessment and [...] Hospital Problems No resolved problems to display. E THEATER USHER * Katherin Larios MD - 03/21/2021 8:15 AM CST Neurosurgery ?? Exam similar to yesterday, right leg is 3-4 throughout and left 1/5 ?? She feels that the sensory differential between left and right is become closer ? Sodium 134 (Goal >135) ?? Plan ?? Wean steroids Lighten MAp goal to MAP 70-100 Cont lovenox Rehab soon ?? Katherin Larios MD E THEATER USHER * David Robb RN - 03/21/2021 2:59 [...] and assess performed by this RN and TOMMY Castro. No new skin breakdown noted. ?? Sleep Evaluation: Sleeping during night? Yes. CAM-ICU: Negative Delirium Prevention Performed: Cluster care and low stimulus. ?? E THEATER USHER * Adelaida Martin MD - 03/20/2021 11:58 PM CST [facility] - Critical Care Physician Note 11:58 PM Physician: Adelaida Martin MD Virtual ticket received Labs/Notes briefly reviewed. Problem: Bladder scan with 280 cc urine. Straight cathed multiple times during the day. intervention/follow up/discussion: Replace Watkins if > 400 cc on bladder scan. Call [facility] if assistance needed ([phone]) E THEATER USHER * Jerson Hubbard RN - 03/20/2021 7:52 [...] Undress and assess done per myself and Osman PCT. Surgical incisions WDL. Bony prominences without redness ?? Sleep Evaluation: Zanaflex prn for muscle spasms interrupting sleep ?? Medication titrations/Procedures/Labs/Diagnostic: Levophed gtt weaned for MAP >80 E THEATER USHER * Tiara Alvares - 03/20/2021 3:56 PM CST Referral received and chart reviewed. Patient currently on Levo, pending medical stability, plan ofcare and physician approval. Patient will need to be able to tolerate 3 hours of therapy daily to include OOB therapy with a solid discharge plan to return to the community. Will continue to follow. Thank you for the referral. E THEATER USHER * Jocelin Goins MD - 03/20/2021 11:54 [...] &??C5/6 ??and posterior decompression/laminectomy??at T2-[address] Larios. Post operatively patient had development of left [...] as needed - midodrine HTN - hold RUG CLEANER meds ?? Pulmonary: On RA, No issues ?? GI/NUT: - diet regular ?? Renal/LYTES/Acid-Base: - Na goal >135 - salt tabs ?? Infectious Disease: ?? No issues Hem/Onc/Coag: ?? lovenox for DVT prophylaxis ?? Endocrine: ?? BS goal 140-180 Musculoskeletal/Skin: ?? No issues Access : CVC GI prophylaxis : ppi dredge captain DVT prophylaxis : lovenox Code status : [...] BMP: Recent Labs 03/17/21 1639 03/18/21 0025 03/18/21 0434 03/19/21 0532 03/20/21436 GLUCOSE 89 164* 146* [...] of 0.98 mg/dL (H)). LFTs: Recent Labs 03/18/21 0434 03/19/21 0532 03/20/21436 ALBUMIN 3.4* 3.1* 3.1* CBC: Recent Labs 03/18/21 0434 03/19/21 0532 03/20/21436 WBC 8.7 6.0 12.1* HGB 12.2 11.3* 12.5 HCT 38.4 35.1* 37.9 PLT 280 222 305 MCV 93.0 91.6 91.5 Coagulation: No results for input(s): PT, INR, APTT in the last 72 hours. ABG: No results found for: PHARTERIAL, UQB5GOP, PO2ART, GIP2OQZ, BASEEXCESS, SO2ABG Central VBG: No results found for: PHMIXEDVEN, AE1DRBEWWD, BSI7WRJFIW, RJL3WDIYK, QZ4HGYE Lactic acid: Lab Results Component Value Date/Time [...] focal consolidation.. DICTATION LOCATION: Location 1 - [facility] Problems Diagnosis ??? Neurological deficit present ??? Cord compression ??? Cervical spondylosis with radiculopathy Resolved Hospital Problems No resolved problems to display. Jocelin Goins MD Critical Care Fellow 03/20/21 11:54 AM E THEATER USHER * Silvestre Levine DO - 03/20/2021 11:49 AM CST Critical Care Daily Note Reason for ICU admission: Cervical stenosis with spinal cord edema I reviewed the medical record including the applicable Critical Care Medicine resident, Fellow, HEAD INSULATION BOARD SAW OPERATOR or PA???s note from today. I independently examined the patient. I discussed the history, physical findings, laboratory findings, assessment and plan with the applicable resident/Fellow/HEAD INSULATION BOARD SAW OPERATOR/PA on rounds. I have reviewed the physical exam findings in the applicable resident/Fellow/HEAD INSULATION BOARD SAW OPERATOR/PA's note; my notable physical exam findings include: [...] the assessment and plan in the applicable resident/Fellow/HEAD INSULATION BOARD SAW OPERATOR/PA's note. Notable amendments to the assessment and [...] Hospital Problems No resolved problems to display. E THEATER USHER * Katherin Larios MD - 03/20/2021 9:24 AM CST Neurosurgery Some improvement this morning She feels that the sensory differential between left and right is become closer Also some toe and ankle movement on the left and some stronger 3/5 proximal motor movement on right Sodium 136 (Goal >135) Plan Wean steroids Voiding trial (straight cath prn) Cont lovenox Katherin Larios MD E THEATER USHER * Dell Calhoun RN - 03/20/2021 2:42 [...] and assess performed by this RN and TOMMY Castro. No new skin breakdown noted. Sleep Evaluation: Sleeping during night? Yes. CAM-ICU: Negative Delirium Prevention Performed: Cluster care and low stimulus. E THEATER USHER * Roselyn Coronel MD - 03/20/2021 2:11 AM CST CCM fellow update Pt has not voided since watkins removal yesterday AM. Bladder scan shows 517 ml. Plan Straight cath E THEATER USHER * Jerson Hubbard RN - 03/19/2021 2:37 [...] titrations/Procedures/Labs/Diagnostic: Levophed gtt weaned for MAP >80 E THEATER USHER * Radha Chanel PA - 03/19/2021 11:41 [...] 85 91 82 (!) 56 Resp: 14 Temp: TempSrc: SpO2: Weight: Height: PE: Awake, [...] Only* (Wed- 7:30am-5pm and Wed-Wed 24 hours): [phone] NS After Hours Exchange: [phone] NSGY Office (Wed-Wed 8:30am-4:30pm): [phone] E THEATER USHER * Vick Higgins RD - 03/19/2021 10:24 AM CST Images from the original note were not included. CLINICAL DIETITIAN PROGRESS NOTE [facility] Nutrition none Vick??is a 65 y.o.??female??who presents [...] 3.4* 3.1* No results found for: HGBA1C, HQHS2QKZV Pert Meds: noted including decadron, zofran, colace, levo, miralax added Skin: See Flowsheet for more wound documentation Anthropometrics: Height: 5' 3 (160 cm) (03/14/21 0130) Weight: 83.9 kg (185 lb) (03/13/21 1010) Body mass index is 32.77 kg/m??. [place] body weight: 52.4 kg (115 lb 8.3 [...] up every 4-7 days and as needed. E THEATER USHER * Silvestre Levine DO - 03/19/2021 9:27 AM CST Critical Care Daily Note Reason for ICU admission: Cervical stenosis with spinal cord edema I reviewed the medical record including the applicable Critical Care Medicine resident, Fellow, HEAD INSULATION BOARD SAW OPERATOR or PA???s note from today. I independently examined the patient. I discussed the history, physical findings, laboratory findings, assessment and plan with the applicable resident/Fellow/HEAD INSULATION BOARD SAW OPERATOR/PA on rounds. I have reviewed the physical exam findings in the applicable resident/Fellow/HEAD INSULATION BOARD SAW OPERATOR/PA's note; my notable physical exam findings include: Neuro: A&Ox4, follows commands, PERRL, b/l UE 5/5 MS, RLE 3/5 and LLE 1/5 in distal Cardiac: RRR without m/r/g Pulm: CTAB without w/r/r Abdomen: Soft, NT/ND, +BS Skin: no rashes Extremities: Warm, no edema present Vasc: radial and dorsal pedal pulses intact symmetric I have reviewed the assessment and plan in the applicable resident/Fellow/HEAD INSULATION BOARD SAW OPERATOR/PA's note. Notable amendments to the assessment and [...] Hospital Problems No resolved problems to display. E THEATER USHER * Jocelin Goins MD - 03/19/2021 8:25 [...] &??C5/6 ??and posterior decompression/laminectomy??at T2-[address] Larios. Post operatively patient had development of left [...] as needed - midodrine HTN - hold RUG CLEANER meds ?? Pulmonary: On RA, No issues [...] hours. ABG: No results found for: PHARTERIAL, GMG2UIT, PO2ART, XUB9DBL, BASEEXCESS, SO2ABG Central VBG: No results found for: PHMIXEDVEN, DU8LMKFHRU, ABQ5RDNHHE, TLL8IBHAI, AH0XIUK Lactic acid: Lab Results Component Value Date/Time [...] consolidation.. DICTATION LOCATION: Location 1 - [facility] Problems Diagnosis ??? Neurological deficit present ??? Cord compression ??? Cervical spondylosis with radiculopathy Resolved Hospital Problems No resolved problems to display. Jocelin Goins MD Critical Care Fellow 03/19/21 8:25 AM E THEATER USHER * David Robb RN - 03/19/2021 6:13 AM CST Overnight Events-??Slept between care.??Nausea at shift start treated with zofran. Spasms 0430 treated with zanaflex & Gabapentin. ?? Neuro:??Neuro checks Q4. A&Ox4. Pupils equal and reactive at 3mm. 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 RLE strong plantar/dorsiflexsion, decreased sensation. LLE- wiggles toes, plantar/dorsiflexsion absentt, decreased sensation is improving .??Denies pain. Na goal of Eunatremia. Leg Boot for foot drop, changed with turns. Removed 0400 for sleep. Reapplied at shift change. ?? Resp:??Room air. Clear lung sounds.?? wdl ?? CV:??SB-NS 50s-60s. SBP 120s-160s. MAP goal 80-100 maintained on 0.01 of Levo.Taken off 8364-0566 MAPS dropped to 72-74 restarted at 0.01. Afebrile. 2/2 pulses. SCDs. Lovenox scheduled daily for DVT prophylaxis.? GI/:??Regular diet tolerating well. No accuchecks. AUOP from watkins. BM dredge captain ?? Skin:??Undress and assess completed by David RN and Martha RN. Anterior surgical incision- open to air/scabbed Posterior surgical incision- drsg c/d/i ?? Lines:??20 L arm.??22 R arm. Left triple lumen Subclavian.?? E THEATER USHER * Radha Chanel PA - 03/18/2021 12:57 [...] is clean/dry/intact. Output by Drain (mL) 03/16/21 0700 - 03/16/21 1859 03/16/21 1900 - 03/17/21 [...] Only* (Wed- 7:30am-5pm and Wed-Wed 24 hours): [phone] NSGY After Hours Exchange: [phone] NSGY Office (Wed-Wed 8:30am-4:30pm): [phone] E THEATER USHER * Silvestre Levine DO - 03/18/2021 9:15 AM CST Critical Care Daily Note Reason for ICU admission: Cervical stenosis with spinal cord edema I reviewed the medical record including the applicable Critical Care Medicine resident, Fellow, HEAD INSULATION BOARD SAW OPERATOR or PA???s note from today. I independently examined the patient. I discussed the history, physical findings, laboratory findings, assessment and plan with the applicable resident/Fellow/HEAD INSULATION BOARD SAW OPERATOR/PA on rounds. I have reviewed the physical exam findings in the applicable resident/Fellow/HEAD INSULATION BOARD SAW OPERATOR/PA's note; my notable physical exam findings include: Neuro: A&Ox4, follows commands, PERRL, b/l UE 5/5 MS, RLE 3/5 and LLE 2/5 Cardiac: RRR without m/r/g Pulm: CTAB without w/r/r Abdomen: Soft, NT/ND, +BS Skin: no rashes Extremities: Warm, no edema present Vasc: radial and dorsal pedal pulses intact symmetric I have reviewed the assessment and plan in the applicable resident/Fellow/HEAD INSULATION BOARD SAW OPERATOR/PA's note. Notable amendments to the assessment and [...] Hospital Problems No resolved problems to display. E THEATER USHER * Jocelin Goins MD - 03/18/2021 7:15 [...] &??C5/6 ??and posterior decompression/laminectomy??at T2-[address] Larios. Post operatively patient had development of left [...] as needed - midodrine HTN - hold RUG CLEANER meds ?? Pulmonary: On RA, No issues [...] hours. ABG: No results found for: PHARTERIAL, LVI1ICM, PO2ART, KOW0DMC, BASEEXCESS, SO2ABG Central VBG: No results found for: PHMIXEDVEN, UH4YTWWRGP, VBA8XRAAFS, LDR9QCKKK, AH0KQAB Lactic acid: Lab Results Component Value Date/Time [...] focal consolidation.. DICTATION LOCATION: Location 1 - [facility] Active Hospital Problems Diagnosis ??? Neurological deficit present ??? Cord compression ??? Cervical spondylosis with radiculopathy Resolved Hospital Problems No resolved problems to display. Jocelin Goins MD Critical Care Fellow 03/18/21 7:15 AM E THEATER USHER * Yulia Escudero - 03/18/2021 6:20 AM CST School Physical Therapist met with Pt and offered support. Pt verbally engaging, seemed to be in good spirits, and expressed no needs at this time. School Physical Therapist provided supportive presence, active listening, and prayed that Pt would get well soon. Pt thanked entry level truck driver for visit and desired to rest. School Physical Therapist will remainavailable. Chaplain Yulia Hernandez #[id number] E THEATER USHER * David Robb RN - 03/18/2021 3:00 AM CST Overnight Events- Slept between care. ?? Neuro: Neuro checks Q4. A&Ox4. Pupils equal and reactive at 3mm. 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 RLE strong plantar/dorsiflexsion, decreased sensation. LLE- wiggles [...] well. No accuchecks. AUOP from watkins. BM dredge captain ?? Skin: Undress and assess completed by David RN and Osmna PCT . Anterior surgical incision- open to air/scabbed Posterior surgical incision- drsg c/d/i ?? Lines: 20 L arm. 22 R arm. L triple lumen Subclavian. E THEATER USHER * Roseanna Badillo RN - 03/17/2021 6:48 PM CST Ventricular bigeminy noted on monitor. Pt asymptomatic. Stat EKG ordered E THEATER USHER * Katherin Larios MD - 03/17/2021 4:34 PM CST Neurosurgery [...] further surgical intervention at this time Katherin Larios MD E THEATER USHER * Silvestre Levine DO - 03/17/2021 12:28 PM CST Critical Care Daily Note Reason for ICU admission: Cervical stenosis with spinal cord edema I reviewed the medical record including the applicable Critical Care Medicine resident, Fellow, HEAD INSULATION BOARD SAW OPERATOR or PA???s note from today. I independently examined the patient. I discussed the history, physical findings, laboratory findings, assessment and plan with the applicable resident/Fellow/HEAD INSULATION BOARD SAW OPERATOR/PA on rounds. I have reviewed the physical exam findings in the applicable resident/Fellow/HEAD INSULATION BOARD SAW OPERATOR/PA's note; my notable physical exam findings include: Neuro: A&Ox4, follows commands, PERRL, b/l UE 5/5 MS, RLE 3/5 and LLE 2/5 Cardiac: RRR without m/r/g Pulm: CTAB without w/r/r Abdomen: Soft, NT/ND, +BS Skin: no rashes Extremities: Warm, no edema present Vasc: radial and dorsal pedal pulses intact symmetric I have reviewed the assessment and plan in the applicable resident/Fellow/HEAD INSULATION BOARD SAW OPERATOR/PA's note. Notable amendments to the assessment and [...] Hospital Problems No resolved problems to display. E THEATER USHER * Cliff Seaman MD - 03/17/2021 11:56 AM CST I discussed the risks and benefits of the procedure including but not limited to bleeding requiringsurgical intervention, infection or meningitis,chemical meningitis, CSF leak requiring blood patch,seizure, headache nausea and vomitting, allergic reaction, and injury to nerve roots. Patient and her daughter appeared to understand and wished to proceed with myelogram. E THEATER USHER * Barron Martinez PA - 03/17/2021 10:34 [...] placed. Output by Drain (mL) 03/15/21699 - 03/15/21185803/15/211899 - 03/16/21 0659 03/16/21699 - 03/16/21 1859 03/16/21 190 - 03/17/21 0659 03/17/21 0700 - 03/17/21 [...] Only* (Wed- 7:30am-5pm and Wed-Wed 24 hours): [phone] NSGY After Hours Exchange: [phone] NSGY Office (Wed-Wed 8:30am-4:30pm): [phone] E THEATER USHER Associated attestation - Katherin Larios MD - 03/17/2021 10:55 AM MOVIE THEATER USHER Seems like her sensation is slightly improved and her right leg seems to be moving a little bit proximally and much better distally with 3-5 plantar and dorsiflexion She is even starting to be able to wiggle a few toes on her left foot Continue steroid taper Myelogram today to rule out ongoing compression Katherin Larios MD * Cookie Grullon RN - 03/17/2021 7:34 AM CST Overnight Events- Slept between care. Neuro: Neuro checks Q1. A&Ox4. Pupils equal and reactive at 3mm. 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 RLE strong plantar/dorsiflexsion, decreased sensation. LLE- wiggles [...] well. ACHS accuchecks. AUOP from watkins. BM dredge captain. Skin: Undress and assess completed by Gely SANDERS and Soheila RN. Anterior surgical incision- open to air/scabbed Posterior surgical incision- drsg c/d/i Cervical drain drsg- c/d/i 35 mL output overnight Lines: 20 L arm. 22 R arm. R triple lumen fem. E THEATER USHER * Jocelin Goins MD - 03/17/2021 7:23 [...] &??C5/6 ??and posterior decompression/laminectomy??at T2-[address] Larios. Post operatively patient had development of left [...] as needed - midodrine HTN - hold RUG CLEANER meds ?? Pulmonary: On RA, No issues [...] hours. ABG: No results found for: PHARTERIAL, DLW0LMV, PO2ART, BNJ8BCV, BASEEXCESS, SO2ABG Central VBG: No results found for: PHMIXEDVEN, WO0MVXDQYM, LQQ3YGQQYN, JSZ1RBQVJ, II4NPKP Lactic acid: Lab Results Component Value Date/Time LACTATE 1.8 03/13/2021 02:58 PM Radiology: No results found for this or any previous visit. Active Hospital Problems Diagnosis ??? Neurological deficit present ??? Cord compression ??? Cervical spondylosis with radiculopathy Resolved Hospital Problems No resolved problems to display. Jocelin Goins MD Critical Care Fellow 03/17/21 7:23 AM E THEATER USHER * Jeanne Hemphill MD - 03/17/2021 2:07 AM CST Na goal specified by day team 138-142. Recent Na 141, hold 2% HTS till next bmp. E THEATER USHER * Katherin Wray - 03/16/2021 11:53 AM CST Vick is a wonderful woman from [place], [place]. She was present with her daughter when I entered herroom and offered her the sacraments. I did anoint her with the Sacrament of the Sick and give her Holy Communion. She said that she wasn't feeling well earlier. She is just a very positive person josé miguel mikhail to talk too. Fr. Katherin Wray, O.P. [phone] E THEATER USHER * Lalit Ortiz DO - 03/16/2021 11:29 AM CST [facility] ATTENDING Action Items for Hospitalist and/or PCP [...] c6 and posteriordecompression/laminectomy at t2-[address] Larios. Post op patient developed left leg weakness and sensation deficits. CSF fluid drained. Patient post op mri and ct. No fluid collection compressing the cord or hematoma. In the ICU the patient started on norepinephrine to increase blood pressure map from 80-100. Please consider this note in addition to the Resident/Fellow/HEAD INSULATION BOARD SAW OPERATOR/PAs note from today (as applicable). I have discussed the history, physical findings, laboratory findings, AND assessment and plan withthe resident/Fellow/HEAD INSULATION BOARD SAW OPERATOR/PA and the patients RN and RT as [...] Hospital Problems No resolved problems to display. E THEATER USHER * Barron Martinez PA - 03/16/2021 11:08 [...] DVT prophylaxis - SCD's and Lovenox. EZEQUIEL Lynch PA Pager *For Healthcare Providers Only* (Wed- 7:30am-5pm and Wed-Wed 24 hours): [phone] NSGY After Hours Exchange: [phone] NSGY Office (Mon-Fri 8:30am-4:30pm): [phone] E THEATER USHER * Jocelin Goins MD - 03/16/2021 7:42 [...] &??C5/6 ??and posterior decompression/laminectomy??at T2-[address] Larios. Post operatively patient had development of left [...] - levo as needed HTN - hold RUG CLEANER meds ?? Pulmonary: On RA, No issues [...] (37.1 ??C) Input/Output 03/14 1900 - 03/16 659 In: 345.1 [P.O.:150; I.V.:195.1] Out: 4685 [Urine:4495; [...] 1.2* ABG: No results found for: PHARTERIAL, ODJ0CKD, PO2ART, FKY7LEH, BASEEXCESS, SO2ABG Central VBG: No results found for: PHMIXEDVEN, QJ2KEQDJYU, NKZ0RIUIVO, UQU3ZTXRI, SD1EVPF Lactic acid: Lab Results Component Value Date/Time LACTATE 1.8 03/13/2021 02:58 PM Radiology: No results found for this or any previous visit. Active Hospital Problems Diagnosis ??? Neurological deficit present ??? Cord compression ??? Cervical spondylosis with radiculopathy Resolved Hospital Problems No resolved problems to display. Jocelin Goins MD Critical Care Fellow 03/16/21 7:42 AM E THEATER USHER Associated attestation - Lalit Ortiz DO - 03/16/2021 3:51 PM MOVIE THEATER USHER See my note from the same day * Jeanne Hemphill MD - 03/16/2021 1:29 AM CST Restart 2% HTS, Na down trending. E THEATER USHER * Ethan Cisneros RN - 03/15/2021 6:12 [...] time. Undress done w/ Martha RN and Bhupinder RN. E THEATER USHER * Lalit Ortiz DO - 03/15/2021 5:53 PM CST ICU update: I Discussed with Dr. Virk. Will continue steroids tonight and decide on 03/16 if would like to continue after this. This order was placed E THEATER USHER * Nicholas Virk MD - 03/15/2021 4:14 PM CST [facility] Neurosurgery Progress Note Admission Date: 03/13/2021 Hospital [...] resolved problems to display. Nicholas Virk MD E THEATER USHER * Lalit Ortiz DO - 03/15/2021 8:32 AM CST [facility] ATTENDING Action Items for Hospitalist and/or PCP [...] c6 and posteriordecompression/laminectomy at t2-[address] Larios. Post op patient developed left leg weakness and sensation deficits. CSF fluid drained. Patient post op mri and ct. No fluid collection compressing the cord or hematoma. In the ICU the patient started on norepinephrine to increase blood pressure map from 80-100. Please consider this note in addition to the Resident/Fellow/HEAD INSULATION BOARD SAW OPERATOR/PAs note from today (as applicable). I have discussed the history, physical findings, laboratory findings, AND assessment and plan withthe resident/Fellow/HEAD INSULATION BOARD SAW OPERATOR/PA and the patients RN and RT as [...] Hospital Problems No resolved problems to display. E THEATER USHER * Jocelin Goins MD - 03/15/2021 6:58 [...] &??C5/6 ??and posterior decompression/laminectomy??at T2-[address] Larios. Post operatively patient had development of left [...] maintaining on her own HTN - hold RUG CLEANER meds ?? Pulmonary: On RA, No issues [...] MCV 94.4 90.8 Coagulation: Recent Labs 03/14/21 0203 PT 15.9* INR 1.2* ABG: No results found for: PHARTERIAL, VPO4ZZK, PO2ART, MPC8YUR, BASEEXCESS, SO2ABG Central VBG: No results found for: PHMIXEDVEN, OD2VQCCDSC, MBB6ZCZFPN, LIY4WJWVI, VF4CTRT Lactic acid: Lab Results Component Value Date/Time LACTATE 1.8 03/13/2021 02:58 PM Radiology: No results found for this or any previous visit. Active Hospital Problems Diagnosis ??? Neurological deficit present ??? Cord compression ??? Cervical spondylosis with radiculopathy Resolved Hospital Problems No resolved problems to display. Jocelin Goins MD Critical Care Fellow 03/15/21 6:58 AM E THEATER USHER Associated attestation - Lalit Ortiz DO - 03/16/2021 3:50 PM MOVIE THEATER USHER See my note from the same day * Katherin Larios MD - 03/14/2021 1:26 PM CST Neurosurgery [...] to further evaluate the local anatomy Katherin Larios MD E THEATER USHER * Lalit Ortiz DO - 03/14/2021 12:28 PM CST [facility] ATTENDING Action Items for Hospitalist and/or PCP [...] c6 and posteriordecompression/laminectomy at t2-[address] Larios. Post op patient developed left leg weakness and sensation deficits. CSF fluid drained Patient post op mri and ct. No fluid collection compressing the cord or hematoma. In the ICU the patient started on norepinephrine to increase blood pressure map from 80-100. Please consider this note in addition to the Resident/Fellow/HEAD INSULATION BOARD SAW OPERATOR/PAs note from today (as applicable). I have discussed the history, physical findings, laboratory findings, AND assessment and plan withthe resident/Fellow/HEAD INSULATION BOARD SAW OPERATOR/PA and the patients RN and RT as [...] tylenol, percocet. ?? Try to decrease on 03/15 if not needing the iv medications. ?? [...] Hospital Problems No resolved problems to display. E THEATER USHER * Jocelin Goins MD - 03/14/2021 8:31 [...] &??C5/6 ??and posterior decompression/laminectomy??at T2-[address] Larios. Post operatively patient had development of left [...] midodrine, levophed as needed HTN - hold RUG CLEANER meds ?? Pulmonary: On RA, No issues [...] (36.1 ??C), Max:98.2 ??F (36.8 ??C) Input/Output [id number] - 03/14 0659 In: 3100 [P.O.:100; I.V.:3000] [...] sensation. Data Review: BMP: Recent Labs 03/14/21 0203 [...] 1.2* ABG: No results found for: PHARTERIAL, AKV8OOL, PO2ART, PQL8RGI, BASEEXCESS, SO2ABG Central VBG: No results found for: PHMIXEDVEN, PN1DWGZVCZ, GXQ7AIOXID, QSY3HLRNT, ST1UEFW Lactic acid: Lab Results Component Value Date/Time LACTATE 1.8 03/13/2021 02:58 PM Radiology: No results found for this or any previous visit. Active Hospital Problems Diagnosis ??? Cord compression ??? Cervical spondylosis with radiculopathy Resolved Hospital Problems No resolved problems to display. Jocelin Goins MD Critical Care Fellow 03/14/21 8:31 AM E THEATER USHER Associated attestation - Lalit Ortiz DO - 03/14/2021 11:04 PM MOVIE THEATER USHER See my note from the same day. * Martha Talbert RN - 03/14/2021 8:02 AM CST UNDRESS AND ASSESS FOR ALL ADMISSIONS AND TRANSFERS: Remove all existing dressings and assess all wounds upon admission (unless instructed by physician). Undress and Assess performed by: bedside coworker Martha RN and bedside coworker Elian RN on admission to [address] Bed 6 Estrada Score: Esrtada Score: 14 (03/14/21 0400) 1. Patient does [...] consult wound care services. 5. Is a biomedical field service engineer in place?no If yes, remove device/brace/splint to [...] tears) Wound care consult was not initiated. [facility] Skin Care Injury Prevention and Treatment Protocol [facility] Approved by: [facility] - Medical Executive Committee Approval Date: 04/27/2019 [...] treatments found in the Wound Care Algorithm. E THEATER USHER * Grover Veliz MD - 03/14/2021 3:09 [...] exam Call Edwige Hoskins if assistance needed E THEATER USHER * Vick Soriano RN - 03/14/2021 1:08 AM CST Report called to TOMMY Thomas in [facility]. She agrees to place watkins when patient arrived to unit. ADDENDUM 0126: patient transferred to [facility] via bed accompanied by nursing supervisor shellfish farming. E THEATER USHER * Vick Soriano RN - 03/14/2021 12:50 AM CST No neuro changes except a few involuntary BLE slight spasms noted. Attempted watkins insertion with asecond RN assist x 2. Unable to insert. Call placed for Nursing Vamp Throater to assist with positioning of patient as she cannot hold her legs in position. E THEATER USHER * Vick Soriano RN - 03/13/2021 10:43 PM CST Patient has not returned from MRI. Call received from Dr. Larios discussing plans for transfer to ICU when bed available. Order received to place watkins catheter. E THEATER USHER * Katherin Larios MD - 03/13/2021 10:22 PM CST Neurosurgery [...] aware of findings and treatment plan Katherin Larios MD E THEATER USHER * Katherni Larios MD - 03/13/2021 9:23 PM CST Neurosurgery [...] I spoke to her son oneyda Katherin Neftali MD Harriet E THEATER USHER * Vick Soriano RN - 03/13/2021 8:45 PM CST More awake. Able to converse, answer questions and follow commands. Poultry Field Service Technician =/stong, but seems unableto move legs. She [...] upward in response to painful stimuli. Dr. Larios contacted. Order received for stat MRI. MRI staff contacted to expedite. Patient updated on plan of care. E THEATER USHER * Vick Soriano RN - 03/13/2021 7:33 [...] noted around dressing. Ice applied to neck. E THEATER USHER documented in this encounter H&P Notes * Novoselova, Janice, MD - 03/13/2021 11:27 PM CST CRITICAL [...] needed. ??? fluticasone propionate (FLONASE) 50 mcg/spray Bear, Suspension nasal inhaler Administer 2 Sprays in [...] 1.2* ABG: No results found for: PHARTERIAL, WYQ7PPY, PO2ART, RLR9XIK, BASEEXCESS, SO2ABG Central VBG: No results found for: PHMIXEDVEN, NQ2EDIWSQA, ULM8KRVRRR, DWY5YOHBO, KX1NCPF Lactic acid: Lab Results Component Value Date/Time [...] Neurochecks q1 h Cardiovascular/Fluids: HTN - hold RUG CLEANER meds Pulmonary: No issues GI/NUT: - diet [...] Hospital Problems No resolved problems to display. E THEATER USHER * Katherin Larios MD - 03/13/2021 12:53 PM CST [facility] Neurosurgery H&P ?? Patient Name: Vick Tanner [...] needed. ? fluticasone propionate (FLONASE) 50 mcg/spray Bear, Suspension nasal inhaler Administer 2 Sprays in [...] Right achilles: 1+ Left achilles: 1+ Right professional security officer: 1+ Left professional security officer: 1+ Right plantar: normal Left plantar: normal Right Penny: absent Left Penny: absent Right ankle clonus: absent Left ankle clonus: absent ? Labs: No results found for: WBC, HGB, HCT, PLT, NA, K, INR No results found for: URINELEUKOC, NITRITEUA, KETONEURINE, BLOODUA, WBCU, WBCURINE, RBCUA, BACTERIAUA, UREPITHELIAL No results found for: CA, NSXW766, VITD25, DZLX66XPH4, LDWE67LCH7, RHNO73INZH, WFWQ9OWNCHQI, OAXF5XJEEEYM, VITAMINDTO, BOJFZCO909, TSH No components found for: NICU, COTU, [...] from an ACDF at C4 -5, 5-6; [facility] Neurosurgery H&P ?? Patient Name: Vick Tanner [...] needed. ? fluticasone propionate (FLONASE) 50 mcg/spray Bear, Suspension nasal inhaler Administer 2 Sprays in [...] Right achilles: 1+ Left achilles: 1+ Right professional security officer: 1+ Left professional security officer: 1+ Right plantar: normal Left plantar: normal Right Penny: absent Left Penny: absent Right ankle clonus: absent Left ankle clonus: absent ? Labs: No results found for: WBC, HGB, HCT, PLT, NA, K, INR No results found for: URINELEUKOC, NITRITEUA, KETONEURINE, BLOODUA, WBCU, WBCURINE, RBCUA, BACTERIAUA, UREPITHELIAL No results found for: CA, HCUJ764, VITD25, FZOZ04HLE7, NNXK62IKC5, BCNK66GNNZ, VWOS7NBUDBEN, QRNW2OREUBYU, VITAMINDTO, NFAKBGB968, TSH No components found for: NICU, COTU, [...] to surgery and wish to proceed. Katherin Larios MD 03/13/2021 E THEATER USHER documented in this encounter Procedure Notes * Jocelin Gonis MD - 03/17/2021 3:14 PM CST Central [...] was present for the entire procedure. 03/18/2021 E THEATER USHER * Janice Alanis MD - 03/14/2021 4:37 [...] who was present for the procedure. 03/14/2021 E THEATER USHER * Janice Alanis MD - 03/14/2021 4:35 [...] was present for the entire procedure. 03/14/2021 E THEATER USHER documented in this encounter Consult Notes * [...] mg, see admin instructions fluticasone propionate, 2 Bear, daily naloxone, 0.1 mg, see admin instructions docusate sodium, 100 mg, BID Timeline (including subjective): 03/27/2021- Pt with notable Brown Sequard syndrome. However she is able to participate in some therapies. Will tolerate three hours of aggressive therapy in inpatient rehab. Patient is an acceptable candidate for the rehab hospital. Pt wants to leave today and start her improvements . Education and deputy general counsel provided. She does have notable right sided [...] mg 4 mg every 8 hours Katherin Larios MD 4 mg at 03/27/21 0929 zolpidem (AMBIEN) tablet 5 mg 5 mg at bedtime PRN Katherin Larios MD sodium chloride tablet 3 Gram 3 [...] Jocelin Goins MD 45 mL at 03/22/21 1847 [COMPLETED] dexamethasone (DECADRON) injection 2 mg 2 [...] mg 2,000 mg pre-proc one time Katherin Larios MD 2,000 mg at 03/13/21 1354 fluticasone propionate (FLONASE) 50 mcg/spray nasal inhaler 2 Bear 2 Bear daily Tab Jonas MD 2Spray at 03/27/21 [...] mg 10 mg every 6 hours Katherin Larios MD 10 mg at 03/14/21 1755 Admission [...] to arthritis, GERD, andHTN. Pt presented to [facility] on 03/13 with c/o posterior headaches, [...] as posterior decompression/laminectomy at T2-[address] Larios. Pt tolerated procedure well. MRI and CT [...] deemed appropriate for admission pending disposition to [facility]. Past Medical History: Diagnosis Date Arthritis GERD (gastroesophageal reflux disease) Difficulty taking NSAIDs. HTN (hypertension) Post-operative nausea and vomiting Past Surgical History: Procedure Laterality Date ENDOSCOPY, UPPER GI HX ANTERIOR CERVICAL DISCECTOMY W/ FUSION N/A 03/13/2021 CERVICAL DISCECTOMY FUSION 2 LEVEL ANTERIOR performed by Katherin Larios MD at [facility] OR [facility] HX SECTION x 2 HX COLONOSCOPY HX HYSTERECTOMY HX MENISCECTOMY Right N/A CO FORREST W/O FACETEC FORAMOT/DSKC 04/13 VRT SEG, THORACIC N/A 03/13/2021 THORACIC LAMINECTOMY performed by Katherin Larios MD at [facility] OR [facility] Family History Problem Relation Name Age [...] (most recent): No results found for: HGBA1C, [id number] LIPID panel result (most recent): No results [...] 03/13/21 EKG 12-LEAD Narrative Stationary ECG Study [facility] Test Date: 03/17/2021 7:05 PM Pat Name: VICK TANNER Department: 45 Room: [facility] Gender: F Weather Stripper: harlan : 1955 Requested By: KATHERIN Lindsay Order Number: [id number] Reading MD: Bhupinder Morales Measurements Intervals [place] Rate: 63 P: 53 CO: 165 QRS: 15 QRSD: 96 T: 22 QT: 433 QTc: 444 Interpretive Statements Sinus rhythm Ventricular premature complex Left atrial enlargement Low voltage, precordial leads PRWP Electronically Signed On 03-18-2021 8:08:07 MOVIE THEATER USHER by Bhupinder Morales Hospitalist Statement: The Internal [...] Thank you for your consideration. DEDE Price E THEATER USHER documented in this encounter OR Notes * Operative Report - Katherin Larios MD - 03/13/2021 4:44 PM CST [facility] [place], [place] [address] Operative Report CSN: [id number] Two-level Anterior Cervical Discectomy and Fusion& T2/3 [...] T2/3 laminectomy 4. Procedure Details Surgeon: Katherin Larios MD The PA was present and necessary for assist in every aspect of case. She provided direct assistancein patient transport, positioning and acted as a treasury assistant providing retraction, suturing, and closure in all aspects of surgical procedure from start to finish. Garland Maker: EZEQUIEL bell, who assisted with all portions [...] the cervical thoracic lamina. We put a [place] clamp between the lamina of T1 and [...] anterior portion of the cervical vertebra. My shipping and receiving assistant took control of the [place] retractor while [...] the correct level. Next the 12 mm [place] distracting pins were screwed into the adjacentvertebral bodies with the [place] distractor placed over the pins and opened [...] curettes, Anspachdrill using the 14 MH 30 (Repeatit) bit, 1 and 2 mm [place] punches [...] using a 7 mm CADAVERIC SPACER. The [place] pins were removed and bone wax was [...] area. The patient awoke neurologically unchanged. Katherin Larios MD E THEATER USHER * Charlene-OP - Lee Kern RN - [...] Met: Questions and concerns addressed and answered E THEATER USHER * Charlene-OP - Mary Ann Grady RN - 02/17/2021 8:56 AM CST Pt states she is going to have her covid test at her PCP's office. She was instructed to have the covid test 3-5 days prior to dos and to have the results faxed to Dr Larios's office as well as bringcopy with her dos. Dr Larios's fax number was provided. Pt verbalizes understanding. E THEATER USHER documented in this encounter Miscellaneous Notes * Care Plan - Sanya Grant, Physical Therapist - 03/27/2021 10:51 AM MOVIE THEATER USHER Problem: Physical Mobility, Impaired Goal: Mobility goal: [...] care for updates on goals. Zone #: [id number] E THEATER USHER * Care Plan - Jocelin Oneill GN - 03/27/2021 6:02 AM CST Patient is A&O x 4. Sensation and strength decreased in BLE. Patient is incontinent of bowel with one bowel movement this shift. Patient unable to void. Straight cath x2. Dr. Larios contacted before the last straight cath due to it being the 3rd in 24 hours. No new orders, okay to move forward with the straight cath. Activity Q2 turns. Patient complains of slight headache, medicated per JUN. Fall precautions in place. Patient slept between care. E THEATER USHER * Care Plan - Rosa Alvarez, Physical [...] at discharge: DME: To be determined (03/24/21 4975) Education: PT POC, functional mobility, LE exercises Positioning after tx: Pt supine in bed with blue wedge positioned under R side for pressure relief.Donned Linard boot on pt's R foot. Positioned pillows under pt's shoulders for comfort. OT in room setting up purewick. A: Response to treatment: Progressing towards goals Recommend: Post acute care;Will tolerate 3 hours of therapy (12/13/21 1049) Recommendations were made on today's assessment. [...] care for updates on goals. Zone #: [id number] E THEATER USHER * Care Plan - Leisa Gotti, Occupational Therapist - 03/26/2021 11:32 AM MOVIE THEATER USHER Problem: Physical Mobility, Impaired Goal: Mobility goal: [...] to help improve pts strength, ROM and [place] with selfcare. FUNCTIONAL ACTIVITIES Grooming: sat EOB [...] in status or [facility] Plan of Care developed, as indicated by OT assessment and patient's current status. Please refer to plan of care for updates on goals. Zone #: [phone] E THEATER USHER * Care Plan - Jocelin Oneill GN - 03/26/2021 6:33 AM CST Patient is A&O x 4. Neurovascular checks done every 4 hours. Patient complains of numbness in both legs. Tele initiated, Patient has watkins catheter in place. Activity Q2 turns. Fall precautions in place. Patient slept between care.. E THEATER USHER * Therapy Treatment - Melanie Beach Physical Therapist - 03/25/2021 4:13 PM CST 03/25/21: PT treatment attempted this PM, pt unavailable as transferring rooms out of ICU at this time. Will continue to follow and attempt as able. Thank you. #[phone] E THEATER USHER * Care Plan - Jocelin Mckeon Occupational Therapist - 03/25/2021 2:58 PM MOVIE THEATER USHER Problem: Physical Mobility, Impaired Goal: Mobility goal: Improve transfer ability by discharge Description: Patient will transfer to/from toilet and to/from tub/shower with modified independent. Outcome: Progressing Problem: Self-Care Deficit Goal: Self care goal: Improve dressing ability by discharge Description: Patient will require modified independent with upper extremity and lower extremity dressing with adaptive equipment. Outcome: Progressing Flowsheets Taken 03/25/2021 1456 by Jocelin Mckeon, Occupational Therapist Therapy Comments: BLE DESIRE wraps, [...] to help improve pts strength, ROM and [place] with selfcare. FUNCTIONAL ACTIVITIES Grooming: SBA to [...] of care for updates on goals. Jocelin Mckeon Occupational Therapist Zone #: [phone] E THEATER USHER * Care Plan - Roseanna Badillo RN [...] Goals Not Met:??wean levo off. Coordinate rehab. E THEATER USHER * Care Plan - Leeroy, Grazyna, Occupational Therapist - 03/24/2021 11:32 AM CST [...] OT evaluationon 03/14. OTR answered questions regarding [facility]. Pt motivated for therapy O: Cognition/ [...] to help improve pts strength, ROM and [place] with selfcare. FUNCTIONAL ACTIVITIES Grooming: pt was [...] care for updates on goals. Zone #: [id number] E THEATER USHER * Care Plan - Melanie Beach Physical Therapist - 03/24/2021 10:49 AM MOVIE THEATER USHER Problem: Physical Mobility, Impaired Goal: Mobility goal: [...] at this time therefore lateral transfer to [place] chairdeferred at this time; RN present= BP as follows: Supine without compression garments: 103/67 (77) Supine with compression garments: 114/95 (103) Sitting EOB: 80/55 (62) Sitting EOB ~10 minutes: 114/61 (73) Supine: 111/60 (80) Equipment to be issued at discharge: DME: To be determined (03/24/211048) Education: Safety with functional mobility, importance of [...] care for updates on goals. Zone #: [phone] E THEATER USHER * Care Plan - Roseanna Badillo RN [...] ?? Patient Goals Not Met:??wean levo off E THEATER USHER * Care Plan - Abel Dewitt, Maintenance Foreman - 03/23/2021 1:35 PM CST Problem: Physical Mobility, Impaired Goal: Mobility goal: Improve transfer ability by discharge Description: Patient will transfer to/from toilet and to/from tub/shower with modified independent. Outcome: Progressing Flowsheets Taken 03/23/2021 1000 by Roseanna Badillo RN Assistive Devices Screening: Transfer pad Present Activity: in bed Taken 03/23/2021 0400 by Fredy Looney RN Location: generalized Taken 03/23/2021 0135 by Abel Dewitt, Maintenance Foreman Sun: X Pain Rating: Rest: 0 Pain [...] care for updates on goals. Zone #: [phone] On weekends--please call [phone] E THEATER USHER * Care Plan - Roseanna Badillo, RN [...] ?? GI: general diet tolerating well. BM RUG CLEANER; passing flatus. Lactulose & suppository given. ?? : watkins w/ adequate output. ?? Skin: undress/assess done by Roseanna RN & Yadira RN. No new skin issues. Anterior & posteriorneck incisions SAHIL. Posterior neck drain removal site C/D/I. CHG bath given. ?? Medication titrations/Procedures/Labs/Diagnostic Tests: ?? Patient Goals Not Met: wean levo off E THEATER USHER * Care Plan - Na Ngo, Occupational Therapist - 03/22/2021 3:01 PM MOVIE THEATER USHER Problem: Physical Mobility, Impaired Goal: Mobility goal: [...] in status or patient is discharged [facility]. Plan of Care developed, as indicated by OT assessment and patient's current status. Please refer to plan of care for updates on goals. Zone #: [id number] E THEATER USHER * Care Plan - Melanie Beach Physical Therapist - 03/22/2021 1:40 PM MOVIE THEATER USHER Problem: Physical Mobility, Impaired Goal: Mobility goal: [...] mobility, importance of activity and exercise Other: ROHO with good inflation, RN agreeable to return [...] care for updates on goals. Zone #: [phone] E THEATER USHER * Therapy Treatment - Brittany Cole Occupational Therapist - 03/21/2021 3:47 PM CST Occupational Therapy order received, chart reviewed, however pt politely declined after PT- feels tired. OT will attempt later as time allows. Thank you. Zone #: [phone] E THEATER USHER * Care Plan - Melanie Beach Physical Therapist - 03/21/2021 1:45 PM MOVIE THEATER USHER Problem: Physical Mobility, Impaired Goal: Mobility goal: [...] at discharge: DME: To be determined (03/21/21 1345) Education: Safety with functional mobility, importance of activity and exercise Positioning after tx: Patient positioned in bed with bed alarm on/patient educated on alarm, L'Nardboot donned, all lines intact, call light in reach, all needs met, heels floated, RN aware A: Response to treatment: Progressing towards goals Recommend: Post acute care (03/21/21 1345) Recommendations were made on today's assessment. Additional [...] care for updates on goals. Zone #: [phone] E THEATER USHER * Care Plan - Debbie Gabriel Physical Therapist - 03/20/2021 3:10 PM MOVIE THEATER USHER Problem: Physical Mobility, Impaired Goal: Mobility goal: [...] issued at discharge: DME: To be determined (03/20/21 143) Education: Educated on PT plan of care [...] care;Will tolerate 3 hours of therapy (03/20/21 1437) Recommendations were made on today's assessment. Additional [...] care for updates on goals. Zone #: [phone] E THEATER USHER * Care Plan - Brittany Cole Occupational Therapist - 03/20/2021 2:57 PM MOVIE THEATER USHER Problem: Physical Mobility, Impaired Goal: Mobility goal: Improve transfer ability by discharge Description: Patient will transfer to/from toilet and to/from tub/shower with modified independent. Outcome: Progressing Problem: Self-Care Deficit Goal: Self care goal: Improve dressing ability by discharge Description: Patient will require modified independent with upper extremity and lower extremity dressing with adaptive equipment. Outcome: Progressing Flowsheets Taken 03/20/2021 141 by Brittany Cole Occupational Therapist True: Carol Ann Location: ??? neck ??? back Response to Interventions: resting quietly Total Treatment Time (min): 38 OT Current Discharge Recommendation: ??? Post acute care ??? Will tolerate 3 hours of therapy OT Treatment Start Time: 1414 OT Treatment Stop Time: 1453 Taken 03/20/2021 [...] to help improve pts strength, ROM and [place] with self care. FUNCTIONAL ACTIVITIES LE Dressing: [...] care for updates on goals. Zone #: [phone] On weekends--please call [phone] E THEATER USHER * Care Plan - Jocelin Mckeon, Occupational Therapist - 03/19/2021 3:39 PM MOVIE THEATER USHER Problem: Physical Mobility, Impaired Goal: Mobility goal: [...] to help improve pts strength, ROM and [place] with selfcare. FUNCTIONAL ACTIVITIES UE Dressing: max [...] of care for updates on goals. Jocelin Mckeon Occupational Therapist Zone #: [phone] E THEATER USHER * Care Plan - Cookie Mathews Physical Therapist - 03/19/2021 3:22 PM MOVIE THEATER USHER Problem: Physical Mobility, Impaired Goal: Mobility goal: [...] Start Time: 1440 PT Treatment Stop Time: 1513 S: Patient agreeable to therapy. Cooperative with [...] acute care;Will tolerate 3 hours of therapy (12/08/21 1513) Recommendations were made on today's assessment. Additional [...] care for updates on goals. Zone #: [phone] E THEATER USHER * Care Plan - Yulia Strange RN - 03/19/2021 9:27 AM CST Care management consult received for assistance with discharge planning. Patient has been assessed.Per therapy notes patient would benefit from acute rehab - referral sent to [facility]. Care management will continue to follow. [place] x [phone] Problem: Discharge Planning Goal: Identify discharge needs upon admission and through discharge Description: Outcome: Progressing E THEATER USHER * Care Plan - Roseanna Badillo RN [...] tonight. GI: general diet tolerating well. BM RUG CLEANER; passing flatus. : watkins w/ adequate output. Skin: undress/assess done by TOMMY Condon & TOMMY Hernandez. No new skin issues. Anterior & posterior neck incisions SAHIL. Posterior neck drain removal site C/D/I. CHG bath given. Medication titrations/Procedures/Labs/Diagnostic Tests: Patient Goals Not Met: wean levo off E THEATER USHER * Care Plan - Jocelin Mckeon, Occupational Therapist - 03/18/2021 4:10 PM MOVIE THEATER USHER Problem: Physical Mobility, Impaired Goal: Mobility goal: [...] to help improve pts strength, ROM and [place] with selfcare. FUNCTIONAL ACTIVITIES LE Dressing: max [...] goals. Jocelin Mckeon, Occupational Therapist Zone #: [phone] E THEATER USHER * Care Plan - Thais Andrews (Student), [...] Time: 1210 Taken 03/18/2021 1000 by Roseanna Badillo, RN Assistive Devices Screening: Transfer pad Physical [...] care for updates on goals. Zone #: [phone] E THEATER USHER Associated attestation - Melanie Hanley Physical Therapist - 03/18/2021 3:50 PM MOVIE THEATER USHER PT present for treatment session. I have reviewed & agree with all documentation entered by Thais Andrews, SPT. Melanie Beach, Physical Therapist, DPT * Care Plan - Candelaria Syed, RN - 03/17/2021 6:29 PM CST Shift [...] performed by Yadira RN and Roseanna RN. E THEATER USHER * Therapy Treatment - Jocelin Mckeon, Occupational Therapist - 03/17/2021 2:55 PM CST 03/17/21 OT: Pt off floor for testing, will continue to follow and re attempt at next available time. E THEATER USHER * Treatment Plan - Nannette Brady I. RT - 03/17/2021 1:13 PM CST ?[facility] Radiology Medication Protocol [facility] Approved by: [facility] - Medical Executive Committee Approval Date: 05/06/2020 I ORDERS ARE ENTERED ???PER PROTOCOL?? Enter the protocol in the patient's electronic health record using smartphrase: .radiologymedicationprotocol Communication Orders: o If required to complete procedure, medical laboratory technologist or nurse may place indwelling watkins [...] Barium Sulfate (Liquid Polibar Plus) 96% (w/w) 405b=926gU mixed with 1500mL of water, radiologist to [...] or more of the following products, [facility] Language Pathologist: Barium tablet (E-Z Disk) 700mg [...] to 2000mL of mixture rectally, one timeonly E THEATER USHER * Care Plan - Thais Andrews (Student), [...] at discharge: DME: To be determined (03/14/21 9783) Positioning after tx: Patient positioned in bed [...] care for updates on goals. Zone #: [id number] E THEATER USHER Associated attestation - Melanie Hanley Physical Therapist - 03/17/2021 4:18 PM MOVIE THEATER USHER PT present for treatment session. I have [...] Regular diet, ACHS. Watkins >adequate UOP. BM RUG CLEANER. SKIN: Undress and Assess completed by: TOMMY Parnell and TOMMY Dominguez Anterior surgical incision-open to air, scabbed Posterior surgical incision dressing- C/D/I Cervical drain dressing- C/D/I. 40 serosang mL out. No pressure related skin breakdown noted. ACCESS 20 L arm R triple fem R ART E THEATER USHER * Care Plan - Yudy Mao RN - 03/16/2021 5:10 PM CST Care Management Initial Assessment Initial Discharge Planning Assessment completed. Discussed Care Management's role and Discharge planning. Discharge Plan: TBD pending progress with therapy. Home with HHC vs post-acute rehab Patient Discharge Planning Goal: Prefers home with HHC to sister's house in [place] as originally planned and will consider IP Rehab. Doesn't like idea of intermediate facility. Patient will potentially discharge to a [...] patient has the following DME? Yes shower [id number]. Services in the home: None Receives hemodialysis? No Emergency contact(s): Extended Emergency Contact Information Primary Emergency Contact: Oneyda Tanner [place] Relation: Son Secondary Emergency Contact: DINA GARCIA [facility] [place] Relation: Sister Insurance coverage verified: Payor: MEDICARE / Plan: MEDICARE PART A AND B / Product Type: Medicare/ Prescription coverage: yes Preferred Pharmacy verified: [facility] #[id number] - [place] - [address] AT [id number] - [place] - [address] [facility] [address] Employment Status: retired Has VA Benefits: no PCP verified as: Huang Alonso MD Patient has not had a stay at an acute care hospital in the last 30 days. Recent Falls?: Last Known Fall: No falls Patient has a [employer] account: yes Patient has a smart device: [...] and assist asneeded. Yudy Mao RN, MSN [employer] [phone] Problem: Discharge Planning Goal: Identify discharge needs upon admission and through discharge Description: Outcome: Progressing E THEATER USHER * Care Plan - Keiry Osorio, Physical Therapist - 03/15/2021 12:23 PM MOVIE THEATER USHER Problem: Physical Mobility, Impaired Goal: Mobility goal: [...] care for updates on goals. Zone #: [phone] E THEATER USHER * Therapy Evaluation - Sanya Grant, Physical [...] intervention: Agrees to continue Living Situation/Functional Level RUG CLEANER: Patient lives with her pets in a [...] section of the medical chart. Zone #: [phone] On weekends--please call [phone] E THEATER USHER * Therapy Evaluation - Roseanna Umaña, Occupational [...] pain intervention: Appeared content Living Situation/Functional Level RUG CLEANER: Pt lives with her family in a [...] section of the medical chart. Zone #: [phone] E THEATER USHER * Care Plan - Marcelo Sagastume RN - 03/13/2021 5:28 PM CST Potential for pain related to surgical/procedural intervention Interventions: Assess level of pain/comfort utilizing verbal/nonverbal pain scales; assess culturalor jew indicators attached to pain; administer pain medications [...] no bleeding or hematoma from surgical site E THEATER USHER documented in this encounter Plan of Treatment Upcoming Encounters Date Type Department Care Team (Late st Contact Info) Description 08/24/2024 11:00 AM CDT Video Visit [facility] [facility] [id number] [place] [phone] [place] [address] [place] [phone] documented as of this encounter Procedures Procedure Name Priority Date/Time Associated Diagnosis Comments TELEMETRY REPORT 04/08/2021 3:52 PM MOVIE THEATER USHER TELEMETRY REPORT 03/28/2021 10:4 8 AM MOVIE THEATER USHER CBC WITH DIFFERENTIAL Routine 03/27/2021 10:07 AM MOVIE THEATER USHER BASIC METABOLIC PANEL Routine 03/27/2021 10:07 AM MOVIE THEATER USHER CBC WITH DIFFERENTIAL Routine 03/26/2021 9:01 AM MOVIE THEATER USHER BASIC METABOLIC PANEL Routine 03/26/2021 9:01 AM MOVIE THEATER USHER CBC WITH DIFFERENTIAL Routine 03/25/2021 6:12 AM MOVIE THEATER USHER MAGNESIUM LEVEL Routine 03/25/2021 6:12 AM MOVIE THEATER USHER BASIC METABOLIC PANEL Routine 03/25/2021 6:12 AM MOVIE THEATER USHER CBC WITH DIFFERENTIAL Routine 03/24/2021 3:52 AM MOVIE THEATER USHER MAGNESIUM LEVEL Routine 03/24/2021 3:52 AM MOVIE THEATER USHER BASIC METABOLIC PANEL Routine 03/24/2021 3:52 AM MOVIE THEATER USHER CBC WITH DIFFERENTIAL Routine 03/23/2021 6:23 AM MOVIE THEATER USHER MAGNESIUM LEVEL Routine 03/23/2021 6:23 AM MOVIE THEATER USHER BASIC METABOLIC PANEL Routine 03/23/2021 6:23 AM MOVIE THEATER USHER CBC WITH DIFFERENTIAL Routine 03/22/2021 5:53 AM MOVIE THEATER USHER MAGNESIUM LEVEL Routine 03/22/2021 5:53 AM MOVIE THEATER USHER RENAL FUNCTION PANEL Routine 03/22/2021 5:53 AM MOVIE THEATER USHER CBC WITH DIFFERENTIAL Routine 03/21/2021 6:08 AM MOVIE THEATER USHER MAGNESIUM LEVEL Routine 03/21/2021 6:08 AM MOVIE THEATER USHER RENAL FUNCTION PANEL Routine 03/21/2021 6:08 AM MOVIE THEATER USHER CBC WITH DIFFERENTIAL Routine 03/20/2021 4:37 AM MOVIE THEATER USHER MAGNESIUM LEVEL Routine 03/20/2021 4:37 AM MOVIE THEATER USHER RENAL FUNCTION PANEL Routine 03/20/2021 4:37 AM MOVIE THEATER USHER BASIC METABOLIC PANEL Routine 03/20/2021 4:37 AM MOVIE THEATER USHER CBC WITH DIFFERENTIAL Routine 03/19/2021 5:32 AM MOVIE THEATER USHER MAGNESIUM LEVEL Routine 03/19/2021 5:32 AM MOVIE THEATER USHER RENAL FUNCTION PANEL Routine 03/19/2021 5:32 AM MOVIE THEATER USHER CBC WITH DIFFERENTIAL Routine 03/18/2021 4:34 AM MOVIE THEATER USHER MAGNESIUM LEVEL Routine 03/18/2021 4:34 AM MOVIE THEATER USHER RENAL FUNCTION PANEL Routine 03/18/2021 4:34 AM MOVIE THEATER USHER BASIC METABOLIC PANEL Routine 03/18/2021 12:25 AM MOVIE THEATER USHER EKG 12-LEAD Stat 03/17/2021 7:05 PM MOVIE THEATER USHER POC GLUCOSE Routine 03/17/2021 6:11 PM MOVIE THEATER USHER XR CHEST PA OR AP 1 VW Stat 03/17/2021 5:15 PM MOVIE THEATER USHER BASIC METABOLIC PANEL Routine 03/17/2021 4:[address] CERVICAL THORACIC WITH CONTRAST Routine 03/17/2021 3:45 PM MOVIE THEATER USHER XR MYELOGRAM 2 OR MORE REGIONS Routine 03/17/2021 3:16 PM MOVIE THEATER USHER POC GLUCOSE Routine 03/17/2021 1:11 PM MOVIE THEATER USHER POC GLUCOSE Routine 03/17/2021 10:28 AM MOVIE THEATER USHER BASIC METABOLIC PANEL Routine 03/17/2021 8:24 AM MOVIE THEATER USHER CBC WITH DIFFERENTIAL Routine 03/17/2021 4:27 AM MOVIE THEATER USHER MAGNESIUM LEVEL Routine 03/17/2021 4:27 AM MOVIE THEATER USHER RENAL FUNCTION PANEL Routine 03/17/2021 4:27 AM MOVIE THEATER USHER BASIC METABOLIC PANEL Routine 03/17/2021 12:50 AM MOVIE THEATER USHER POC GLUCOSE Routine 03/16/2021 8:39 PM MOVIE THEATER USHER POC GLUCOSE Routine 03/16/2021 4:21 PM MOVIE THEATER USHER BASIC METABOLIC PANEL Routine 03/16/2021 4:16 PM MOVIE THEATER USHER POC GLUCOSE Routine 03/16/2021 12:42 PM MOVIE THEATER USHER POC GLUCOSE Routine 03/16/2021 10:06 AM MOVIE THEATER USHER CBC WITH DIFFERENTIAL Routine 03/16/2021 6:14 AM MOVIE THEATER USHER MAGNESIUM LEVEL Routine 03/16/2021 6:14 AM MOVIE THEATER USHER RENAL FUNCTION PANEL Routine 03/16/2021 6:14 AM MOVIE THEATER USHER BASIC METABOLIC PANEL Routine 03/15/2021 11:57 PM MOVIE THEATER USHER POC GLUCOSE Routine 03/15/2021 8:26 PM MOVIE THEATER USHER BASIC METABOLIC PANEL Routine 03/15/2021 5:04 PM MOVIE THEATER USHER POC GLUCOSE Routine 03/15/2021 1:33 PM MOVIE THEATER USHER POC GLUCOSE Routine 03/15/2021 8:01 AM MOVIE THEATER USHER CBC WITH DIFFERENTIAL Routine 03/15/2021 5:55 AM MOVIE THEATER USHER MAGNESIUM LEVEL Routine 03/15/2021 5:55 AM MOVIE THEATER USHER RENAL FUNCTION PANEL Routine 03/15/2021 5:55 AM MOVIE THEATER USHER POC GLUCOSE Routine 03/15/2021 12:29 AM MOVIE THEATER USHER POC GLUCOSE Routine 03/14/2021 8:30 PM MOVIE THEATER USHER POC GLUCOSE Routine 03/14/2021 5:50 PM MOVIE THEATER USHER POC GLUCOSE Routine 03/14/2021 3:50 PM MOVIE THEATER USHER POC GLUCOSE Routine 03/14/2021 12:[address] THORACIC SPINE WO CONTRAST Routine 03/14/2021 9:34 AM MOVIE THEATER USHER POC GLUCOSE Routine 03/14/2021 8:07 AM MOVIE THEATER USHER CBC WITH DIFFERENTIAL Routine 03/14/2021 3:38 AM MOVIE THEATER USHER POC GLUCOSE Routine 03/14/2021 3:28 AM MOVIE THEATER USHER PROTIME-INR Stat 03/14/2021 2:03 AM MOVIE THEATER USHER PHOSPHORUS Stat 03/14/2021 2:03 AM MOVIE THEATER USHER MAGNESIUM LEVEL Stat 03/14/2021 2:03 AM MOVIE THEATER USHER COMPREHENSIVE METABOLIC PANEL Stat 03/14/2021 2:03 AM MOVIE THEATER USHER POC GLUCOSE Routine 03/14/2021 1:46 AM MOVIE THEATER USHER MRI CERV THORACIC WO CONT Stat 03/13/2021 10:47 PM MOVIE THEATER USHER XR OR SPINAL PROCEDURE OARM Routine 03/13/2021 6:08 PM MOVIE THEATER USHER XR CERVICAL SPINE 1 VW Routine 03/13/2021 4:22 PM MOVIE THEATER USHER POC LACTIC ACID Routine 03/13/2021 2:58 PM MOVIE THEATER USHER BLOOD GAS,(INCL. H+H, LYTES, GLUC) Routine 03/13/2021 2:58 PM MOVIE THEATER USHER XR CERVICAL SPINE 1 VW Routine 03/13/2021 2:12 PM MOVIE THEATER USHER THORACIC LAMINECTOMY 03/13/2021 12:32 PM MOVIE THEATER USHER NECK PAIN Case Notes [facility], [facility] [facility] CPT 64359, 94629, [id number], [id number] CERVICAL DISCECTOMY FUSION ANTERIOR - 2 LEVELS 03/13/2021 12:32 PM MOVIE THEATER USHER NECK PAIN Case Notes [facility], [facility] NN CPT 56045, 71153, [id number], 53023 VERIFICATION BLOOD GROUP Stat 03/13/2021 11:55 AM MOVIE THEATER USHER Encounter for blood typing POC GLUCOSE Routine 03/13/2021 11:12 AM MOVIE THEATER USHER documented in this encounter Results * TELEMETRY REPORT (04/08/2021 3:52 PM MOVIE THEATER USHER) Provider Scanning ECG ORDERABLES * TELEMETRY REPORT (03/28/2021 10:48 AM MOVIE THEATER USHER) Provider Scanning ECG ORDERABLES * (ABNORMAL) BASIC METABOLIC PANEL (03/27/2021 10:07 AM MOVIE THEATER USHER) SODIUM 142 136 - 145 mmol/L 03/27/2021 11:06 AM MOVIE THEATER USHER [employer] [facility] POTASSIUM 3.8 3.5 - 5.0 mmol/L 03/27/2021 11:06 AM MOVIE THEATER USHER [employer] [facility] CHLORIDE 108(H) 98 - 107 mmol/L 03/27/2021 11:06 AM MOVIE THEATER USHER [employer] [facility] CO2 23 22 - 29 mmol/L 03/27/2021 11:06 AM MOVIE THEATER USHER [employer] [facility] CALCIUM 8.5(L) 8.6 - 10.2 mg/dL 03/27/2021 11:06 AM MOVIE THEATER USHER [employer] [facility] BUN 26(H) 8 - 23 mg/dL 03/27/2021 11:06 AM MOVIE THEATER USHER [employer] [facility] CREATININE 0.73 0.51 - 0.95 mg/dL 03/27/2021 11:06 AM [facility] [employer] [facility] GLUCOSE 122(H) 74 - 99 mg/dL 03/27/2021 11:06 AM MOVIE THEATER USHER [employer] [facility] GFR >60 mL/min/1.7 3 sq meter 03/27/2021 11:06 AM [facility] [employer] [facility] Comment: eGFR has not been validated [...] 3 sq meter 03/27/2021 11:06 AM [facility] [employer] [facility] ANION GAP 11 8 - 16 mmol/L 03/27/2021 11:06 AM [facility] [employer] [facility] Blood Venipuncture / Unknown 03/27/2021 10:07 AM MOVIE THEATER USHER 03/27/2021 10:27 AM [facility] Tab Jonas MD CHEMISTRY ORDERABLES [facility] [employer] [facility]# [id number] 5 [facility] [place] [address] * (ABNORMAL) CBC WITH DIFFERENTIAL (03/27/2021 10:07 AM MOVIE THEATER USHER) WBC 5.8 4.0 - 9.8 K/uL 03/27/2021 10:52 AM [facility] [employer] [facility] RBC 3.37(L) 3.90 - 4.90 M/uL 03/27/2021 10:52 AM [facility] [employer] [facility] HEMOGLOBIN 9.9(L) 11.8 - 14.8 g/dL 03/27/2021 10:52 AM [facility] [employer] [facility] HEMATOCRIT 31.9(L) 35.5 - 44.0 % 03/27/2021 10:52 AM [facility] [employer] [facility] MCV 94.7 82.0 - 99.0 fL 03/27/2021 10:52 AM [facility] MCH 29.4 27.2 - 32.6 pg 03/27/2021 10:52 AM [facility] MCHC 31.0(L) 31.5 - 35.5 g/dL 03/27/2021 10:52 AM [facility] RDW 13.2 11.5 - 14.5 % 03/27/2021 10:52 AM [facility] RDW-STDEV 45.6 37.1 - 48.7 fL 03/27/2021 10:52 AM [facility] PLATELETS 202 140 - 350 K/uL 03/27/2021 10:52 AM [facility] MPV 9.8 9.3 - 12.4 fL 03/27/2021 10:52 AM [facility] NEUTROPHILS 68 % 03/27/2021 10:52 AM [facility] LYMPHOCYTES 21 % 03/27/2021 10:52 AM [facility] MONOCYTES 11 % 03/27/2021 10:52 AM [facility] EOSINOPHILS 0 % 03/27/2021 10:52 AM [facility] BASOPHILS 0 % 03/27/2021 10:52 AM [facility] IMMATURE GRANULOCYTES 1 % 03/27/2021 10:52 AM [facility] Comment:IG (Immature Granulo cyte) count includes Metamyelocytes, Myelocytes, and Promyelocytes NEUTROPHIL ABSOLUTE 3.94 1.90 - 7.00 K/uL 03/27/2021 10:52 AM [facility] LYMPHOCYTE ABSOLUTE 1.20 0.70 - 4.50 K/uL 03/27/2021 10:52 AM [facility] MONOCYTE ABSOLUTE 0.61 0.10 - 1.30 K/uL 03/27/2021 10:52 AM [facility] EOSINOPHIL ABSOLUTE 0.01 0.00 - 0.70 K/uL 03/27/2021 10:52 AM [facility] BASOPHILS ABSOLUTE 0.01 0.00 - 0.20 K/uL 03/27/2021 10:52 AM [facility] [employer] [facility] IMMATURE GRANULOCYTES ABSOLUTE 0.06(H) 0.00 - 0.03 K/uL 03/27/2021 10:52 AM [facility] [employer] [facility] Blood Venipuncture / Unknown 03/27/2021 10:07 AM MOVIE THEATER USHER 03/27/2021 10:27 AM MOVIE THEATER USHER Tab Jonas MD HEMATOLOGY ORDERABLE S [facility] [employer] SERVICES [facility] CLIA# [id number] [address] [facility] [address] * (ABNORMAL) BASIC METABOLIC PANEL (03/26/2021 9:01 AM MOVIE THEATER USHER) SODIUM 140 136 - 145 mmol/L 03/26/2021 10:04 AM [facility] [employer] [facility] POTASSIUM 3.8 3.5 - 5.0 mmol/L 03/26/2021 10:04 AM [facility] [employer] [facility] CHLORIDE 107 98 - 107 mmol/L 03/26/2021 10:04 AM [facility] [employer] [facility] CO2 23 22 - 29 mmol/L 03/26/2021 10:04 AM [facility] [employer] [facility] CALCIUM 8.3(L) 8.6 - 10.2 mg/dL 03/26/2021 10:04 AM [facility] [employer] SERVICES [facility]. [facility] BUN 30(H) 8 - 23 mg/dL 03/26/2021 10:04 AM [facility] [employer] [facility] CREATININE 0.78 0.51 - 0.95 mg/dL 03/26/2021 10:04 AM [facility] [employer] [facility] GLUCOSE 106(H) 74 - 99 mg/dL 03/26/2021 10:04 AM [facility] GitHub [facility] GFR >60 mL/min/1.7 3 sq meter 03/26/2021 10:04 AM [facility] [employer] [facility] Comment: eGFR has not been validated [...] 3 sq meter 03/26/2021 10:04 AM [facility] [employer] SERVICES [facility] ANION GAP 10 8 - 16 mmol/L 03/26/2021 10:04 AM [facility] [employer] [facility] Blood Venipuncture / Unknown 03/26/2021 9:01 AM MOVIE THEATER USHER 03/26/2021 9:18 AM MOVIE THEATER USHER Tab Jonas MD CHEMISTRY ORDERABLES [employer] SERVICES [facility]# [id number] 5 [facility] [place] [address] * (ABNORMAL) CBC WITH DIFFERENTIAL (03/26/2021 9:01 AM MOVIE THEATER USHER) WBC 6.3 4.0 - 9.8 K/uL 03/26/2021 9:46 AM [facility] [employer] [facility] RBC 3.39(L) 3.90 - 4.90 M/uL 03/26/2021 9:46 AM [facility] [employer] [facility] HEMOGLOBIN 10.0(L) 11.8 - 14.8 g/dL 03/26/2021 9:46 AM [facility] GitHub [facility] HEMATOCRIT 31.9(L) 35.5 - 44.0 % 03/26/2021 9:46 AM [facility] [employer] [facility] MCV 94.1 82.0 - 99.0 fL 03/26/2021 9:46 AM [facility] [employer] [facility] MCH 29.5 27.2 - 32.6 pg 03/26/2021 9:46 AM MOVIE THEATER USHER [facility] MCHC 31.3(L) 31.5 - 35.5 g/dL 03/26/2021 9:46 AM MOVIE THEATER USHER [facility] RDW 13.3 11.5 - 14.5 % 03/26/2021 9:46 AM MOVIE THEATER USHER [facility] RDW-STDEV 45.8 37.1 - 48.7 fL 03/26/2021 9:46 AM MOVIE THEATER USHER [facility] PLATELETS 202 140 - 350 K/uL 03/26/2021 9:46 AM [facility] MPV 9.7 9.3 - 12.4 fL 03/26/2021 9:46 AM [facility] NEUTROPHILS 69 % 03/26/2021 9:46 AM [facility] LYMPHOCYTES 21 % 03/26/2021 9:46 AM [facility] MONOCYTES 8 % 03/26/2021 9:46 AM [facility] EOSINOPHILS 0 % 03/26/2021 9:46 AM [facility] BASOPHILS 0 % 03/26/2021 9:46 AM [facility] IMMATURE GRANULOCYTES 1 % 03/26/2021 9:46 AM [facility] Comment:IG (Immature Granulo cyte) count includes Metamyelocytes, Myelocytes, and Promyelocytes NEUTROPHIL ABSOLUTE 4.34 1.90 - 7.00 K/uL 03/26/2021 9:46 AM [facility] LYMPHOCYTE ABSOLUTE 1.33 0.70 - 4.50 K/uL 03/26/2021 9:46 AM [facility] MONOCYTE ABSOLUTE 0.49 0.10 - 1.30 K/uL 03/26/2021 9:46 AM MOVIE THEATER USHER [facility] EOSINOPHIL ABSOLUTE 0.01 0.00 - 0.70 K/uL 03/26/2021 9:46 AM [facility] BASOPHILS ABSOLUTE 0.00 0.00 - 0.20 K/uL 03/26/2021 9:46 AM M[employer]IE THEATER USHER [facility] IMMATURE GRANULOCYTES ABSOLUTE 0.09(H) 0.00 - 0.03 K/uL 03/26/2021 9:46 AM [facility] [employer] LABORATORY SERVICES [facility] Blood Venipuncture / Unknown 03/26/2021 9:01 AM MOVIE THEATER USHER 03/26/2021 9:18 AM MOVIE THEATER USHER Tab Jonas MD HEMATOLOGY ORDERABLE S [facility] [employer] SERVICES [facility] CLIA# [id number] 5 [facility] [place] [address] * (ABNORMAL) BASIC METABOLIC PANEL (03/25/2021 6:12 AM MOVIE THEATER USHER) SODIUM 138 136 - 145 mmol/L 03/25/2021 7:07 AM [facility] [facility]OR[facility] SERVICES [facility] POTASSIUM 4.2 3.5 - 5.0 mmol/L 03/25/2021 7:07 AM MOVIE THEATER USHER [employer] SERVICES [facility] CHLORIDE 105 98 - 107 mmol/L 03/25/2021 7:07 AM MOVIE THEATER USHER [employer] SERVICES [facility] CO2 25 22 - 29 mmol/L 03/25/2021 7:07 AM [facility] [employer] LABORATORY SERVICES [facility]. [facility] CALCIUM 8.0(L) 8.6 - 10.2 mg/dL 03/25/2021 7:07 AM [facility] [employer] SERVICES [facility] BUN 27(H) 8 - 23 mg/dL 03/25/2021 7:07 AM [facility] [employer] [facility] SERVICES [facility] CREATININE 0.75 0.51 - 0.95 mg/dL 03/25/2021 7:07 AM MOVIE THEATER USHER [employer] SERVICES [facility]. [facility] GLUCOSE 103(H) 74 - 99 mg/dL 03/25/2021 7:07 AM MOVIE THEATER USHER [employer] SERVICES [facility]. [facility] GFR >60 mL/min/1.7 3 sq meter 03/25/2021 7:07 AM [employer] [facility] SERVICES [facility] Comment: eGFR has not been validated for [...] 3 sq meter 03/25/2021 7:07 AM [facility] LABORATORY [facility] ANION GAP 8 8 - 16 mmol/L 03/25/2021 7:07 AM [facility] [employer] [facility] Blood Venipuncture / Unknown 03/25/2021 6:12 AM MOVIE THEATER USHER 03/25/2021 6:28 AM M[employer] THEATER USHER Tab Jonas MD CHEMISTRY ORDERABLES [employer] [facility]# [id number] 5 [facility] [place] [address] * (ABNORMAL) CBC WITH DIFFERENTIAL (03/25/2021 6:12 AM MOVIE THEATER USHER) WBC 7.3 4.0 - 9.8 K/uL 03/25/2021 7:46 AM [facility] [employer] [facility] RBC 3.22(L) 3.90 - 4.90 M/uL 03/25/2021 7:46 AM [facility] [employer] [facility] HEMOGLOBIN 9.5(L) 11.8 - 14.8 g/dL 03/25/2021 7:46 AM [facility] [employer] [facility] HEMATOCRIT 31.2(L) 35.5 - 44.0 % 03/25/2021 7:46 AM M[employer] THE[employer] USHER [employer] [facility] MCV 96.9 82.0 - 99.0 fL 03/25/2021 7:46 AM MOV[employer] THEATER USHER [employer] [facility] MCH 29.5 27.2 - 32.6 pg 03/25/2021 7:46 AM MOVIE THEATER USHER [employer] [facility] MCHC 30.4(L) 31.5 - 35.5 g/dL 03/25/2021 7:46 AM MOVIE THEATER USHER [facility] RDW 13.2 11.5 - 14.5 % 03/25/2021 7:46 AM [facility] RDW-STDEV 47.3 37.1 - 48.7 fL 03/25/2021 7:46 AM M[employer]IE THEATER USHER [facility] PLATELETS 181 140 - 350 K/uL 03/25/2021 7:46 AM [facility] MPV 9.6 9.3 - 12.4 fL 03/25/2021 7:46 AM [facility] NEUTROPHILS 66 % 03/25/2021 7:46 AM [facility] LYMPHOCYTES 24 % 03/25/2021 7:46 AM [facility] MONOCYTES 7 % 03/25/2021 7:46 AM [facility] EOSINOPHILS 0 % 03/25/2021 7:46 AM [facility] BASOPHILS 0 % 03/25/2021 7:46 AM [facility] IMMATURE GRANULOCYTES 2 % 03/25/2021 7:46 AM [facility] Comment:IG (Immature Granulo cyte) count includes Metamyelocytes, Myelocytes, and Promyelocytes NEUTROPHIL ABSOLUTE 4.86 1.90 - 7.00 K/uL 03/25/2021 7:46 AM [facility] LYMPHOCYTE ABSOLUTE 1.78 0.70 - 4.50 K/uL 03/25/2021 7:46 AM [facility] MONOCYTE ABSOLUTE 0.53 0.10 - 1.30 K/uL 03/25/2021 7:46 AM [facility] EOSINOPHIL ABSOLUTE 0.00 0.00 - 0.70 K/uL 03/25/2021 7:46 AM [facility] BASOPHILS ABSOLUTE 0.01 0.00 - 0.20 K/uL 03/25/2021 7:46 AM [facility] IMMATURE GRANULOCYTES ABSOLUTE 0.16(H) 0.00 - 0.03 K/uL 03/25/2021 7:46 AM [facility] Blood Venipuncture / Unknown 03/25/2021 6:12 AM MOVIE THEATER USHER 03/25/2021 6:28 AM MOVIE THEATER USHER Tab Jonas MD HEMATOLOGY ORDERABLE S Performing Organization Address [facility]/ZIP Co de Phone Number [facility] [employer] [id number] [address] [place] [address] * MAGNESIUM LEVEL (03/25/2021 6:12 AM M[employer]IE THEATER USHER) MAGNESIUM 2.1 1.6 - 2.4 mg/dL 03/25/2021 7:07 AM MOVIE THEATER USHER [employer] [facility] Blood Venipuncture / Unknown 03/25/2021 6:12 AM [employer] THE[employer] USHER 03/25/2021 6:28 AM [employer] THE[employer]HER Janice Alanis MD CHEMISTRY ORDERAB LES Performing Organization Address City/[facility]/ZIP Co de Phone Number [facility]# [id number] [address] [place] [address] * (ABNORMAL) BASIC METABOLIC PANEL (03/24/2021 3:52 AM M[employer] THEATER USHER) SODIUM 137 136 - 145 mmol/L 03/24/2021 4:39 AM M[employer] THE[employer] [facility] - . [facility] POTASSIUM 4.5 3.5 - 5.0 mmol/L 03/24/2021 4:39 AM MOV[employer] THE[employer] [facility] CHLORIDE 105 98 - 107 mmol/L 03/24/2021 4:39 AM [employer] THE[employer] [facility] CO2 23 22 - 29 mmol/L 03/24/2021 4:39 AM [employer] THE[employer] [facility] CALCIUM 8.1(L) 8.6 - 10.2 mg/dL 03/24/2021 4:39 AM M[employer] THE[employer] [facility] BUN 35(H) 8 - 23 mg/dL 03/24/2021 4:39 AM M[employer] THE[employer] [facility] CREATININE 0.97(H) 0.51 - 0.95 mg/dL 03/24/2021 4:39 AM [facility] [employer] [facility] GLUCOSE 129(H) 74 - 99 mg/dL 03/24/2021 4:39 AM [facility] [employer] [facility] GFR 58 mL/min/1.7 3 sq meter 03/24/2021 4:39 AM [facility] [employer] [facility] Comment: eGFR has not been validated [...] mL/min/1.7 3 sq meter 03/24/2021 4:39 AM [facility] [employer] [facility] ANION GAP 9 8 - 16 mmol/L 03/24/2021 4:39 AM [facility] [employer] [facility] Blood Venipuncture / Unknown 03/24/2021 3:52 AM [employer] THE[employer]HER 03/24/2021 4:00 AM MOV[employer] THEATER USHER Tab Jonas MD CHEMISTRY ORDERABLES [facility] [employer] [facility]# [id number] [address] [place] [id number] * (ABNORMAL) CBC WITH DIFFERENTIAL (03/24/2021 3:52 AM MOV[employer] THEATER USHER) WBC 10.9(H) 4.0 - 9.8 K/uL 03/24/2021 4:15 AM [employer] THE[employer] [facility] RBC 3.78(L) 3.90 - 4.90 M/uL 03/24/2021 4:15 AM [facility] [employer] [facility] HEMOGLOBIN 11.2(L) 11.8 - 14.8 g/dL 03/24/2021 4:15 AM [employer] THE[employer] [facility] HEMATOCRIT 35.0(L) 35.5 - 44.0 % 03/24/2021 4:15 AM M[employer] THEATER [employer]HER [employer] [facility] MCV 92.6 82.0 - 99.0 fL 03/24/2021 4:15 AM M[employer] THE[employer] [facility] MCH 29.6 27.2 - 32.6 pg 03/24/2021 4:15 AM [employer] THE[employer] [facility] MCHC 32.0 31.5 - 35.5 g/dL 03/24/2021 4:15 AM [employer] THE[employer] [facility] RDW 13.2 11.5 - 14.5 % 03/24/2021 4:15 AM [employer] [facility] RDW-STDEV 44.8 37.1 - 48.7 fL 03/24/2021 4:15 AM [facility] PLATELETS 241 140 - 350 K/uL 03/24/2021 4:15 AM [facility] MPV 9.3 9.3 - 12.4 fL 03/24/2021 4:15 AM [facility] NEUTROPHILS 69 % 03/24/2021 4:15 AM [facility] LYMPHOCYTES 21 % 03/24/2021 4:15 AM [facility] MONOCYTES 8 % 03/24/2021 4:15 AM [facility] [facility] EOSINOPHILS 0 % 03/24/2021 4:15 AM [facility] [facility] BASOPHILS 0 % 03/24/2021 4:15 AM [facility] LABORATORY SERVICES - [facility] IMMATURE GRANULOCYTES 2 % 03/24/2021 4:15 AM [facility] LABORATORY SERVICES - [facility] Comment:IG (Immature Granulo cyte) count includes Metamyelocytes, Myelocytes, and Promyelocytes NEUTROPHIL ABSOLUTE 7.51(H) 1.90 - 7.00 K/uL 03/24/2021 4:15 AM MOVIE THEATER USHER [employer] LABORATORY SERVICES - [facility] LYMPHOCYTE ABSOLUTE 2.26 0.70 - 4.50 K/uL 03/24/2021 4:15 AM MOVIE THEATER USHER [employer] LABORATORY SERVICES - [facility] MONOCYTE ABSOLUTE 0.85 0.10 - 1.30 K/uL 03/24/2021 4:15 AM MOVIE THEATER USHER [employer] LABORATORY SERVICES - [facility] EOSINOPHIL ABSOLUTE 0.00 0.00 - 0.70 K/uL 03/24/2021 4:15 AM MOVIE THEATER USHER [employer] LABORATORY SERVICES - [facility] BASOPHILS ABSOLUTE 0.01 0.00 - 0.20 K/uL 03/24/2021 4:15 AM MOVIE THEATER USHER [facility] LABORATORY SERVICES - [facility] IMMATURE GRANULOCYTES ABSOLUTE 0.24(H) 0.00 - 0.03 K/uL 03/24/2021 4:15 AM [facility] Blood Venipuncture / Unknown 03/24/2021 3:52 AM MOVIE THEATER USHER 03/24/2021 4:00 AM MOVIE THEATER USHER Tab Jonas MD HEMATOLOGY ORDERABLE S Performing Organization Address City/[facility]/ZIP Co de Phone Number [facility] [employer] [facility] CLIA# [id number] [address] [place] [address] * MAGNESIUM LEVEL (03/24/2021 3:52 AM MOVIE THEATER USHER) MAGNESIUM 2.0 1.6 - 2.4 mg/dL 03/24/2021 4:39 AM [facility] [employer] [facility] Blood Venipuncture / Unknown 03/24/2021 3:52 AM MOVIE THEATER USHER 03/24/2021 4:00 AM MOVIE THEATER USHER Janice Alanis MD CHEMISTRY ORDERAB LES [facility] CLIA# [id number] [address] [place] [address] * (ABNORMAL) BASIC METABOLIC PANEL (03/23/2021 6:23 AM MOVIE THEATER USHER) SODIUM 132(L) 136 - 145 mmol/L 03/23/2021 6:58 AM [facility] LABORATORY [facility] POTASSIUM 4.5 3.5 - 5.0 mmol/L 03/23/2021 6:58 AM MOVIE THEATER USHER [employer] LABORATORY SERVICES - [facility] CHLORIDE 99 98 - 107 mmol/L 03/23/2021 6:58 AM [facility] [employer] LABORATORY SERVICES - [facility] CO2 23 22 - 29 mmol/L 03/23/2021 6:58 AM [facility] LABORATORY SERVICES - [facility] CALCIUM 8.7 8.6 - 10.2 mg/dL 03/23/2021 6:58 AM [facility] LABORATORY SERVICES - [facility] BUN 32(H) 8 - 23 mg/dL 03/23/2021 6:58 AM [facility] LABORATORY [facility] - [facility] CREATININE 0.88 0.51 - 0.95 mg/dL 03/23/2021 6:58 AM [facility] LABORATORY SERVICES - [facility] GLUCOSE 121(H) 74 - 99 mg/dL 03/23/2021 6:58 AM [facility] [employer] [facility] GFR >60 mL/min/1.7 3 sq meter 03/23/2021 6:58 AM [facility] [employer] LABORATORY SERVICES - [facility] Comment: eGFR has not been validated for [...] mL/min/1.7 3 sq meter 03/23/2021 6:58 AM [facility] [employer] LABORATORY SERVICES - [facility] ANION GAP 10 8 - 16 mmol/L 03/23/2021 6:58 AM [facility] [employer] SERVICES - . [facility] Blood Venipuncture / Unknown 03/23/2021 6:23 AM MOVIE THEATER USHER 03/23/2021 6:28 AM MOVIE THEATER USHER Tab Jonas MD CHEMISTRY ORDERABLES [facility] [employer] SERVICES [facility] CLIA# [id number] [address] [facility] [place] [address] * (ABNORMAL) CBC WITH DIFFERENTIAL (03/23/2021 6:23 AM MOVIE THEATER USHER) [facility] WBC 19.5(H) 4.0 - 9.8 K/uL 03/23/2021 6:51 AM MOVIE THEATER USHER [employer] LABORATORY SERVICES - [facility] RBC 4.24 3.90 - 4.90 M/uL 03/23/2021 6:51 AM MOVIE THEATER USHER [employer] LABORATORY SERVICES - [facility] HEMOGLOBIN 12.5 11.8 - 14.8 g/dL 03/23/2021 6:51 AM MOVIE THEATER USHER [employer] LABORATORY SERVICES - [facility] HEMATOCRIT 38.3 35.5 - 44.0 % 03/23/2021 6:51 AM MOVIE THEATER USHER [employer] LABORATORY SERVICES - [facility] MCV 90.3 82.0 - 99.0 fL 03/23/2021 6:51 AM MOVIE THEATER USHER [employer] LABORATORY SERVICES - [facility] MCH 29.5 27.2 - 32.6 pg 03/23/2021 6:51 AM MOVIE THEATER USHER [employer] LABORATORY SERVICES - [facility] MCHC 32.6 31.5 - 35.5 g/dL 03/23/2021 6:51 AM MOVIE THEATER USHER [employer] LABORATORY SERVICES - [facility] RDW 13.2 11.5 - 14.5 % 03/23/2021 6:51 AM MOVIE THEATER USHER [employer] LABORATORY SERVICES - [facility] RDW-STDEV 43.4 37.1 - 48.7 fL 03/23/2021 6:51 AM MOVIE THEATER USHER [employer] LABORATORY SERVICES - [facility] PLATELETS 312 140 - 350 K/uL 03/23/2021 6:51 AM MOVIE THEATER USHER [employer] LABORATORY SERVICES - [facility] MPV 9.3 9.3 - 12.4 fL 03/23/2021 6:51 AM MOVIE THEATER USHER [employer] LABORATORY SERVICES - [facility] NEUTROPHILS 70 % 03/23/2021 6:51 AM MOVIE THEATER USHER [employer] LABORATORY SERVICES - [facility] LYMPHOCYTES 20 % 03/23/2021 6:51 AM MOVIE THEATER USHER [employer] LABORATORY SERVICES - [facility] MONOCYTES 8 % 03/23/2021 6:51 AM MOVIE THEATER USHER [employer] LABORATORY SERVICES - [facility] EOSINOPHILS 0 % 03/23/2021 6:51 AM MOVIE THEATER USHER [employer] LABORATORY SERVICES - [facility] BASOPHILS 0 % 03/23/2021 6:51 AM MOVIE THEATER USHER [employer] LABORATORY SERVICES - [facility] IMMATURE GRANULOCYTES 2 % 03/23/2021 6:51 AM [facility] [employer]18 [facility] Comment:IG (Immature Granulo cyte) count includes Metamyelocytes, Myelocytes, and Promyelocytes NEUTROPHIL ABSOLUTE 13.57(H) 1.90 - 7.00 K/uL 03/23/2021 6:51 AM [facility] [employer]18 [facility] LYMPHOCYTE ABSOLUTE 3.85 0.70 - 4.50 K/uL 03/23/2021 6:51 AM [facility] [employer]18 [facility] MONOCYTE ABSOLUTE 1.58(H) 0.10 - 1.30 K/uL 03/23/2021 6:51 AM [facility] LABORATORY [facility] EOSINOPHIL ABSOLUTE 0.03 0.00 - 0.70 K/uL 03/23/2021 6:51 AM [facility] [employer]18 [facility] BASOPHILS ABSOLUTE 0.04 0.00 - 0.20 K/uL 03/23/2021 6:51 AM [facility] [employer]18 [facility] IMMATURE GRANULOCYTES ABSOLUTE 0.43(H) 0.00 - 0.03 K/uL 03/23/2021 6:51 AM [facility] [employer]18 [facility] Blood Venipuncture / Unknown 03/23/2021 6:23 AM MOVIE THEATER USHER 03/23/2021 6:28 AM MOVIE THEATER USHER Tab Jonas MD HEMATOLOGY ORDERABLE S [facility] CLPR# [id number] [address] [place] [address] * MAGNESIUM LEVEL (03/23/2021 6:23 AM MOVIE THEATER USHER) MAGNESIUM 2.1 1.6 - 2.4 mg/dL 03/23/2021 6:58 AM MOVIE THEATER USHER [facility] Blood Venipuncture / Unknown 03/23/2021 6:23 AM MOVIE THEATER USHER 03/23/2021 6:28 AM MOVIE THEATER USHER Janice Alanis MD CHEMISTRY ORDERAB LES [facility] CLPRIETO# [id number] [address] [place] [place] [address] * (ABNORMAL) CBC WITH DIFFERENTIAL (03/22/2021 5:53 AM MOVIE THEATER USHER) WBC 10.0(H) 4.0 - 9.8 K/uL 03/22/2021 6:23 AM [facility] LABORATORY SERVICES - [facility] RBC 4.21 3.90 - 4.90 M/uL 03/22/2021 6:23 AM [facility]ATORY SERVICES - [facility] HEMOGLOBIN 12.3 11.8 - 14.8 g/dL 03/22/2021 6:23 AM [facility]ATORY SERVICES - [facility] HEMATOCRIT 38.8 35.5 - 44.0 % 03/22/2021 6:23 AM [facility] SERVICES - [facility] MCV 92.2 82.0 - 99.0 fL 03/22/2021 6:23 AM [facility]ATORY SERVICES - [facility] MCH 29.2 27.2 - 32.6 pg 03/22/2021 6:23 AM [facility] SERVICES - [facility] MCHC 31.7 31.5 - 35.5 g/dL 03/22/2021 6:23 AM [facility] [facility]ORY SERVICES - [facility] RDW 12.9 11.5 - 14.5 % 03/22/2021 6:23 AM [facility]ATORY SERVICES - [facility] RDW-STDEV 43.8 37.1 - 48.7 fL 03/22/2021 6:23 AM [facility] LABORATORY SERVICES - [facility] PLATELETS 267 140 - 350 K/uL 03/22/2021 6:23 AM [employer] SERVICES - [facility] MPV 9.6 9.3 - 12.4 fL 03/22/2021 6:23 AM [facility] LABORATORY SERVICES - [facility] NEUTROPHILS 72 % 03/22/2021 6:23 AM [facility] LABORATORY SERVICES - [facility] LYMPHOCYTES 17 % 03/22/2021 6:23 AM MOVIE THEATER USHER [employer] LABORATORY SERVICES - [facility] MONOCYTES 7 % 03/22/2021 6:23 AM [facility] LAB[facility]ATORY SERVICES - [facility] EOSINOPHILS 0 % 03/22/2021 6:23 AM [facility] LABORATORY [facility] BASOPHILS 0 % 03/22/2021 6:23 AM [facility] [employer]18 [facility] IMMATURE GRANULOCYTES 4 % 03/22/2021 6:23 AM [facility] [employer] [facility] Comment:IG (Immature Granulo cyte) count includes Metamyelocytes, Myelocytes, and Promyelocytes NEUTROPHIL ABSOLUTE 7.19(H) 1.90 - 7.00 K/uL 03/22/2021 6:23 AM [facility] [employer] [facility] LYMPHOCYTE ABSOLUTE 1.74 0.70 - 4.50 K/uL 03/22/2021 6:23 AM [facility] [employer] [facility] MONOCYTE ABSOLUTE 0.65 0.10 - 1.30 K/uL 03/22/2021 6:23 AM [facility] [employer] [facility] EOSINOPHIL ABSOLUTE 0.00 0.00 - 0.70 K/uL 03/22/2021 6:23 AM [facility] [employer] [facility] BASOPHILS ABSOLUTE 0.02 0.00 - 0.20 K/uL 03/22/2021 6:23 AM [facility] [employer] [facility] IMMATURE GRANULOCYTES ABSOLUTE 0.39(H) 0.00 - 0.03 K/uL 03/22/2021 6:23 AM [facility] [employer] [facility] Blood Venipuncture / Unknown 03/22/2021 5:53 AM MOVIE THEATER USHER 03/22/2021 6:06 AM MOVIE THEATER USHER Tab Jonas MD HEMATOLOGY ORDERABLE S [facility] [employer]18 [facility]# [id number] 5 [facility] [place] [address] * MAGNESIUM LEVEL (03/22/2021 5:53 AM MOVIE THEATER USHER) MAGNESIUM 2.2 1.6 - 2.4 mg/dL 03/22/2021 6:47 AM [facility] [employer] [facility] Blood Venipuncture / Unknown 03/22/2021 5:53 AM MOVIE THEATER USHER 03/22/2021 6:05 AM MOVIE THEATER USHER Janice Alanis MD CHEMISTRY ORDERAB LES [employer]18 SERVICES [facility]# [id number] [id number] [place] [place] [address] * (ABNORMAL) RENAL FUNCTION PANEL (03/22/2021 5:53 AM MOVIE THEATER USHER) SODIUM 135(L) 136 - 145 mmol/L 03/22/2021 6:46 AM [facility] [employer] SERVICES - [facility] POTASSIUM 4.4 3.5 - 5.0 mmol/L 03/22/2021 6:46 AM [facility] [employer] SERVICES - [facility] CHLORIDE 101 98 - 107 mmol/L 03/22/2021 6:46 AM [facility] [employer] [facility] CO2 25 22 - 29 mmol/L 03/22/2021 6:46 AM [facility] [employer] [facility] CALCIUM 8.7 8.6 - 10.2 mg/dL 03/22/2021 6:46 AM [facility] [employer] [facility] BUN 28(H) 8 - 23 mg/dL 03/22/2021 6:46 AM [facility] [employer] [facility] CREATININE 0.83 0.51 - 0.95 mg/dL 03/22/2021 6:46 AM [facility] [employer] [facility] GLUCOSE 112(H) 74 - 99 mg/dL 03/22/2021 6:46 AM [facility] [employer] [facility] ALBUMIN 3.3(L) 3.5 - 5.2 g/dL 03/22/2021 6:46 AM [facility] [employer] [facility] PHOSPHORUS 4.1 2.5 - 4.5 mg/dL 03/22/2021 6:46 AM [facility] [employer] SERVICES - [facility] GFR >60 mL/min/1.7 3 sq meter 03/22/2021 6:46 AM [facility] [employer] SERVICES - [facility] Comment: eGFR has [...] 3 sq meter 03/22/2021 6:46 AM [facility] [employer] LABORATORY SERVICES [facility] ANION GAP 9 8 - 16 mmol/L 03/22/2021 6:46 AM [facility] [employer] SERVICES - [facility] Blood Venipuncture / Unknown 03/22/2021 5:53 AM MOVIE THEATER USHER 03/22/2021 6:05 AM MOVIE THEATER USHER Janice Alanis MD CHEMISTRY ORDERAB LES [employer]18 SERVICES [facility]# [id number] 5 [facility] [place] [address] * (ABNORMAL) CBC WITH DIFFERENTIAL (03/21/2021 6:08 AM MOVIE THEATER USHER) WBC 10.4(H) 4.0 - 9.8 K/uL 03/21/2021 6:34 AM MOVIE THEATER USHER [employer] LABORATORY SERVICES [facility] RBC 4.10 3.90 - 4.90 M/uL 03/21/2021 6:34 AM [facility] [employer] SERVICES [facility] HEMOGLOBIN 12.0 11.8 - 14.8 g/dL 03/21/2021 6:34 AM MOVIE THEATER USHER [employer] SERVICES [facility] HEMATOCRIT 37.7 35.5 - 44.0 % 03/21/2021 6:34 AM MOVIE THEATER USHER [employer] SERVICES [facility] MCV 92.0 82.0 - 99.0 fL 03/21/2021 6:34 AM MOVIE THEATER USHER [employer] SERVICES - [facility] MCH 29.3 27.2 - 32.6 pg 03/21/2021 6:34 AM MOVIE THEATER USHER [employer] SERVICES [facility] MCHC 31.8 31.5 - 35.5 g/dL 03/21/2021 6:34 AM MOVIE THEATER USHER [employer] SERVICES [facility] RDW 12.8 11.5 - 14.5 % 03/21/2021 6:34 AM [employer] LABORATORY SERVICES - [facility] RDW-STDEV 43.0 37.1 - 48.7 fL 03/21/2021 6:34 AM [facility] [employer] LABORATORY SERVICES - [facility] PLATELETS 255 140 - 350 K/uL 03/21/2021 6:34 AM [facility] [employer] LABORATORY SERVICES - [facility] MPV 9.5 9.3 - 12.4 fL 03/21/2021 6:34 AM MOVIE THEATER USHER [employer] LABORATORY SERVICES - . [facility] NEUTROPHILS 74 % 03/21/2021 6:34 AM MOVIE THEATER USHER [employer] LABORATORY SERVICES - [facility] LYMPHOCYTES 16 % 03/21/2021 6:34 AM MOVIE THEATER USHER [employer] LABORATORY SERVICES - [facility] MONOCYTES 7 % 03/21/2021 6:34 AM MOVIE THEATER USHER [employer] LABORATORY SERVICES - . [facility] EOSINOPHILS 0 % 03/21/2021 6:34 AM MOVIE THEATER USHER [employer] LABORATORY SERVICES - . [facility] BASOPHILS 0 % 03/21/2021 6:34 AM [employer] SERVICES - . [facility] IMMATURE GRANULOCYTES 3 % 03/21/2021 6:34 AM MOVIE THEATER USHER [employer] LABORATORY SERVICES - [facility] Comment:IG (Immature Granulo cyte) count includes Metamyelocytes, Myelocytes, and Promyelocytes NEUTROPHIL ABSOLUTE 7.72(H) 1.90 - 7.00 K/uL 03/21/2021 6:34 AM [facility] [employer] LABORATORY SERVICES [facility] LYMPHOCYTE ABSOLUTE 1.67 0.70 - 4.50 K/uL 03/21/2021 6:34 AM [employer] LABORATORY SERVICES [facility]. [facility] MONOCYTE ABSOLUTE 0.68 0.10 - 1.30 K/uL 03/21/2021 6:34 AM [employer] SERVICES - . [facility] EOSINOPHIL ABSOLUTE 0.00 0.00 - 0.70 K/uL 03/21/2021 6:34 AM [email or web address] - . [facility] BASOPHILS ABSOLUTE 0.01 0.00 - 0.20 K/uL 03/21/2021 6:34 AM MOVIE THEATER USHER [employer] [facility] IMMATURE GRANULOCYTES ABSOLUTE 0.30(H) 0.00 - 0.03 K/uL 03/21/2021 6:34 AM [employer] LABORATORY SERVICES [facility] Blood Venipuncture / Unknown 03/21/2021 6:08 AM MOVIE THEATER USHER 03/21/2021 6:23 AM MOVIE THEATER USHER Tab Jonas MD HEMATOLOGY ORDERABLE S [facility] [employer]18 [facility] CLIA# [id number] [address] [place] [address] * MAGNESIUM LEVEL (03/21/2021 6:08 AM MOVIE THEATER USHER) MAGNESIUM 2.4 1.6 - 2.4 mg/dL 03/21/2021 6:57 AM MOVIE THEATER USHER [employer] LABORATORY SERVICES [facility] Blood Venipuncture / Unknown 03/21/2021 6:08 AM MOVIE THEATER USHER 03/21/2021 6:23 AM MOVIE THEATER USHER Janice Alanis MD CHEMISTRY ORDERAB LES Performing Organization Address City/[facility]/ZIP Co de Phone Number [employer] [facility] CLIA# [id number] [address] [place] [address] * (ABNORMAL) RENAL FUNCTION PANEL (03/21/2021 6:08 AM MOVIE THEATER USHER) SODIUM 134(L) 136 - 145 mmol/L 03/21/2021 6:57 AM MOVIE THEATER USHER [employer] LABORATORY SERVICES - [facility] POTASSIUM 4.5 3.5 - 5.0 mmol/L 03/21/2021 6:57 AM MOVIE THEATER USHER [employer] LABORATORY SERVICES - [facility] CHLORIDE 99 98 - 107 mmol/L 03/21/2021 6:57 AM MOVIE THEATER USHER [employer] LABORATORY SERVICES - . [facility] CO2 25 22 - 29 mmol/L 03/21/2021 6:57 AM MOVIE THEATER USHER [employer] LABORATORY SERVICES - . [facility] CALCIUM 8.7 8.6 - 10.2 mg/dL 03/21/2021 6:57 AM MOVIE THEATER USHER [employer] LABORATORY SERVICES - . [facility] BUN 28(H) 8 - 23 mg/dL 03/21/2021 6:57 AM MOVIE THEATER USHER [employer] LABORATORY SERVICES - . [facility] CREATININE 0.79 0.51 - 0.95 mg/dL 03/21/2021 6:57 AM MOVIE THEATER USHER [employer] LABORATORY SERVICES - [facility] GLUCOSE 113(H) 74 - 99 mg/dL 03/21/2021 6:57 AM [facility] LABORATORY [facility] ALBUMIN 3.3(L) 3.5 - 5.2 g/dL 03/21/2021 6:57 AM [facility] LABORATORY [facility] PHOSPHORUS 3.7 2.5 - 4.5 mg/dL 03/21/2021 6:57 AM [facility] LABORATORY [facility] GFR >60 mL/min/1.7 3 sq meter 03/21/2021 6:57 AM [facility] [employer] LABORATORY SERVICES - [facility] Comment: eGFR has not been validated for [...] 3 sq meter 03/21/2021 6:57 AM [facility] [employer] LABORATORY SERVICES - [facility] ANION GAP 10 8 - 16 mmol/L 03/21/2021 6:57 AM [facility] [employer] [facility] Blood Venipuncture / Unknown 03/21/2021 6:08 AM MOVIE THEATER USHER 03/21/2021 6:23 AM MOVIE THEATER USHER Janice Alanis MD CHEMISTRY ORDERAB LES [facility]# [id number] [address] [facility] [place] [address] * (ABNORMAL) BASIC METABOLIC PANEL (03/20/2021 4:37 AM MOVIE THEATER USHER) SODIUM 136 136 - 145 mmol/L 03/20/2021 5:16 AM [facility] [employer] LABORATORY [facility] POTASSIUM 4.7 3.5 - 5.0 mmol/L 03/20/2021 5:16 AM [facility] [employer] SERVICES - [facility] CHLORIDE 102 98 - 107 mmol/L 03/20/2021 5:16 AM [facility] [employer] [facility] CO2 26 22 - 29 mmol/L 03/20/2021 5:16 AM [facility] [employer] [facility] - . [facility] CALCIUM 8.4(L) 8.6 - 10.2 mg/dL 03/20/2021 5:16 AM [facility] [employer] [facility] BUN 35(H) 8 - 23 mg/dL 03/20/2021 5:16 AM [facility] [employer] [facility] CREATININE 0.98(H) 0.51 - 0.95 mg/dL 03/20/2021 5:16 AM [facility] [employer] [facility] GLUCOSE 120(H) 74 - 99 mg/dL 03/20/2021 5:16 AM [facility] [employer] [facility] GFR 57 mL/min/1.7 3 sq meter 03/20/2021 5:16 AM [facility] [employer] [facility] Comment: eGFR has not been validated [...] 3 sq meter 03/20/2021 5:16 AM [facility] [employer] [facility] ANION GAP 8 8 - 16 mmol/L 03/20/2021 5:16 AM [facility] [employer] [facility] Blood Venipuncture / Unknown 03/20/2021 4:37 AM MOVIE THEATER USHER 03/20/2021 4:45 AM MOVIE THEATER USHER Tab Jonas MD CHEMISTRY ORDERABLES [employer] [facility] [id number] [address] [place] [address] * (ABNORMAL) CBC WITH DIFFERENTIAL (03/20/2021 4:37 AM [employer]) WBC 12.1(H) 4.0 - 9.8 K/uL 03/20/2021 5:17 AM [employer] THE[employer] [facility] RBC 4.14 3.90 - 4.90 M/uL 03/20/2021 5:17 AM [employer] HEMOGLOBIN 12.5 11.8 - 14.8 g/dL 03/20/2021 5:17 AM [employer] HEMATOCRIT 37.9 35.5 - 44.0 % 03/20/2021 5:17 AM [facility] MCV 91.5 82.0 - 99.0 fL 03/20/2021 5:17 AM [facility] MCH 30.2 27.2 - 32.6 pg 03/20/2021 5:17 AM [facility] MCHC 33.0 31.5 - 35.5 g/dL 03/20/2021 5:17 AM [facility] RDW 12.7 11.5 - 14.5 % 03/20/2021 5:17 AM [facility] RDW-STDEV 42.8 37.1 - 48.7 fL 03/20/2021 5:17 AM [facility] PLATELETS 305 140 - 350 K/uL 03/20/2021 5:17 AM [employer] MPV 9.4 9.3 - 12.4 fL 03/20/2021 5:17 AM [employer] [facility] NEUTROPHILS 75 % 03/20/2021 5:17 AM [employer] LYMPHOCYTES 14 % 03/20/2021 5:17 AM [employer] [facility] MONOCYTES 9 % 03/20/2021 5:17 AM [employer] [facility] EOSINOPHILS 0 % 03/20/2021 5:17 AM [employer] BASOPHILS 0 % 03/20/2021 5:17 AM [facility] [employer] [facility] IMMATURE GRANULOCYTES 2 % 03/20/2021 5:17 AM [facility] Comment:IG (Immature Granulo cyte) count includes Metamyelocytes, Myelocytes, and Promyelocytes NEUTROPHIL ABSOLUTE 9.04(H) 1.90 - 7.00 K/uL 03/20/2021 5:17 AM [facility] [employer] [facility] LYMPHOCYTE ABSOLUTE 1.73 0.70 - 4.50 K/uL 03/20/2021 5:17 AM [facility] [employer] MONOCYTE ABSOLUTE 1.03 0.10 - 1.30 K/uL 03/20/2021 5:17 AM [facility] EOSINOPHIL ABSOLUTE 0.01 0.00 - 0.70 K/uL 03/20/2021 5:17 AM [facility] BASOPHILS ABSOLUTE 0.02 0.00 - 0.20 K/uL 03/20/2021 5:17 AM [facility] [employer] [facility] IMMATURE GRANULOCYTES ABSOLUTE 0.26(H) 0.00 - 0.03 K/uL 03/20/2021 5:17 AM [facility] [employer] [facility] Blood Venipuncture / Unknown 03/20/2021 4:37 AM [employer] 03/20/2021 4:45 AM [employer] Tab Jonas MD HEMATOLOGY ORDERABLE S Performing Organization Address City/State/[facility] Co de Phone Number [facility] [employer] [facility]# [id number] [address] [place] [address] * MAGNESIUM LEVEL (03/20/2021 4:37 AM M[employer] THEATER USHER) MAGNESIUM 2.3 1.6 - 2.4 mg/dL 03/20/2021 5:16 AM [employer] [facility] [employer] [facility] Blood Venipuncture / Unknown 03/20/2021 4:37 AM [employer] 03/20/2021 4:45 AM [employer] Janice Alanis MD CHEMISTRY ORDERAB LES [employer] SERVICES - [facility] CLIA# [id number] [place] [address] * (ABNORMAL) RENAL FUNCTION PANEL (03/20/2021 4:37 AM [employer] THE[employer] USHER) SODIUM 136 136 - 145 mmol/L 03/20/2021 5:16 AM [facility] [employer] [facility] POTASSIUM 4.7 3.5 - 5.0 mmol/L 03/20/2021 5:16 AM [facility] [employer] [facility] CHLORIDE 102 98 - 107 mmol/L 03/20/2021 5:16 AM [facility] [employer] [facility] CO2 26 22 - 29 mmol/L 03/20/2021 5:16 AM [facility] [employer] [facility] CALCIUM 8.4(L) 8.6 - 10.2 mg/dL 03/20/2021 5:16 AM [facility] [employer] [facility] BUN 35(H) 8 - 23 mg/dL 03/20/2021 5:16 AM [facility] [employer] [facility] CREATININE 0.98(H) 0.51 - 0.95 mg/dL 03/20/2021 5:16 AM [facility] [employer] [facility] [place] GLUCOSE 120(H) 74 - 99 mg/dL 03/20/2021 5:16 AM [facility] [employer] [facility] ALBUMIN 3.1(L) 3.5 - 5.2 g/dL 03/20/2021 5:16 AM [facility] [employer] [facility] [place] PHOSPHORUS 3.1 2.5 - 4.5 mg/dL 03/20/2021 5:16 AM [facility] [employer] [facility] [place] GFR 57 mL/min/1.7 3 sq meter 03/20/2021 5:16 AM [facility] GitHub - . [place] Comment: eGFR has not [...] 3 sq meter 03/20/2021 5:16 AM [facility] [employer] LABORATORY SERVICES - [facility] ANION GAP 8 8 - 16 mmol/L 03/20/2021 5:16 AM [facility] [employer] LABORATORY SERVICES - . [facility] Blood Venipuncture / Unknown 03/20/2021 4:37 AM MOVIE THEATER USHER 03/20/2021 4:45 AM MOVIE THEATER USHER Janice Alanis MD CHEMISTRY ORDERAB LES [facility] [employer] SERVICES [facility] CLIA# [id number] [address] [place] [address] * (ABNORMAL) CBC WITH DIFFERENTIAL (03/19/2021 5:32 AM MOVIE THEATER USHER) WBC 6.0 4.0 - 9.8 K/uL 03/19/2021 6:23 AM [facility] [employer] LABORATORY SERVICES - [facility] RBC 3.83(L) 3.90 - 4.90 M/uL 03/19/2021 6:23 AM [facility] [employer] LABORATORY SERVICES - [facility] HEMOGLOBIN 11.3(L) 11.8 - 14.8 g/dL 03/19/2021 6:23 AM [facility] SERVICES - [facility] HEMATOCRIT 35.1(L) 35.5 - 44.0 % 03/19/2021 6:23 AM [facility] [employer] LABORATORY SERVICES - [facility] MCV 91.6 82.0 - 99.0 fL 03/19/2021 6:23 AM [facility] [employer] LABORATORY SERVICES - [facility] MCH 29.5 27.2 - 32.6 pg 03/19/2021 6:23 AM [facility] [employer] LABORATORY SERVICES - [facility] MCHC 32.2 31.5 - 35.5 g/dL 03/19/2021 6:23 AM [facility] [employer] LABORATORY SERVICES - [facility] RDW 12.5 11.5 - 14.5 % 03/19/2021 6:23 AM M[employer] THEATER [employer] [facility] RDW-STDEV 42.0 37.1 - 48.7 fL 03/19/2021 6:23 AM [facility] [employer] [facility] PLATELETS 222 140 - 350 K/uL 03/19/2021 6:23 AM [facility] [employer] [facility] MPV 9.6 9.3 - 12.4 fL 03/19/2021 6:23 AM [facility] [employer] [facility] NEUTROPHILS 77 % 03/19/2021 6:23 AM [facility] [employer] [facility] LYMPHOCYTES 14 % 03/19/2021 6:23 AM [facility] [employer] [facility] MONOCYTES 7 % 03/19/2021 6:23 AM [facility] [employer] [facility] [place] EOSINOPHILS 0 % 03/19/2021 6:23 AM [facility] GitHub - . [place] BASOPHILS 0 % 03/19/2021 6:23 AM [facility] GitHub [facility] IMMATURE GRANULOCYTES 2 % 03/19/2021 6:23 AM [facility] [employer] [facility] [place] Comment:IG (Immature Granulo cyte) count includes Metamyelocytes, Myelocytes, and Promyelocytes NEUTROPHIL ABSOLUTE 4.68 1.90 - 7.00 K/uL 03/19/2021 6:23 AM [facility] [employer] [facility] [place] LYMPHOCYTE ABSOLUTE 0.85 0.70 - 4.50 K/uL 03/19/2021 6:23 AM [facility] [employer] [facility] MONOCYTE ABSOLUTE 0.39 0.10 - 1.30 K/uL 03/19/2021 6:23 AM [facility] [employer] [facility] [place] EOSINOPHIL ABSOLUTE 0.00 0.00 - 0.70 K/uL 03/19/2021 6:23 AM M[employer] THEATER USHER [employer] [facility] [place] BASOPHILS ABSOLUTE 0.01 0.00 - 0.20 K/uL 03/19/2021 6:23 AM [facility] [employer] [facility] IMMATURE GRANULOCYTES ABSOLUTE 0.11(H) 0.00 - 0.03 K/uL 03/19/2021 6:23 AM [email or web address] [facility] Blood Venipuncture / Unknown 03/19/2021 5:32 AM MOVIE THEATER USHER 03/19/2021 6:11 AM MOVIE THEATER USHER Tab Jonas MD HEMATOLOGY ORDERABLE S Performing Organization Address City/[facility]/ZIP Co de Phone Number [facility]# [id number] [address] [place] [address] * MAGNESIUM LEVEL (03/19/2021 5:32 AM MOVIE THEATER USHER) MAGNESIUM 2.2 1.6 - 2.4 mg/dL 03/19/2021 6:48 AM M[employer] THEATER USHER [employer] LABORATORY SERVICES [facility] Blood Venipuncture / Unknown 03/19/2021 5:32 AM MOVIE THEATER USHER 03/19/2021 6:11 AM MOV[employer] THEATER USHER Janice Alanis MD CHEMISTRY ORDERAB LES Performing Organization Address [facility]/ZIP Co de Phone Number [employer] [facility] CLIA# [id number] [address] [place] [address] * (ABNORMAL) RENAL FUNCTION PANEL (03/19/2021 5:32 AM MOVIE THEATER USHER) SODIUM 136 136 - 145 mmol/L 03/19/2021 6:48 AM [facility] [employer] LABORATORY SERVICES [facility] POTASSIUM 4.2 3.5 - 5.0 mmol/L 03/19/2021 6:48 AM M[employer] THEATER USHER [employer] LABORATORY SERVICES [facility] CHLORIDE 101 98 - 107 mmol/L 03/19/2021 6:48 AM M[employer] THEATER USHER [employer] LABORATORY SERVICES - . [facility] CO2 24 22 - 29 mmol/L 03/19/2021 6:48 AM M[employer] THEATER USHER [employer] LABORATORY SERVICES - . [facility] CALCIUM 8.4(L) 8.6 - 10.2 mg/dL 03/19/2021 6:48 AM M[employer] THEATER USHER [employer] LABORATORY SERVICES - . [facility] BUN 28(H) 8 - 23 mg/dL 03/19/2021 6:48 AM M[employer] THEATER USHER [employer] LABORATORY SERVICES - . [facility] CREATININE 0.84 0.51 - 0.95 mg/dL 03/19/2021 6:48 AM M[employer] THEATER USHER [employer] LABORATORY SERVICES - . [facility] GLUCOSE 134(H) 74 - 99 mg/dL 03/19/2021 6:48 AM [facility] [employer] [facility] ALBUMIN 3.1(L) 3.5 - 5.2 g/dL 03/19/2021 6:48 AM [facility] [employer] [facility] PHOSPHORUS 3.3 2.5 - 4.5 mg/dL 03/19/2021 6:48 AM [facility] [employer] [facility] GFR >60 mL/min/1.7 3 sq meter 03/19/2021 6:48 AM [facility] Comment: eGFR has not been validated [...] mL/min/1.7 3 sq meter 03/19/2021 6:48 AM [facility] [employer] [facility] ANION GAP 11 8 - 16 mmol/L 03/19/2021 6:48 AM [facility] [employer] [facility] Blood Venipuncture / Unknown 03/19/2021 5:32 AM MOVIE THEATER USHER 03/19/2021 6:11 AM MOVIE THEATER USHER Janice Alanis MD CHEMISTRY ORDERAB LES [facility] [employer]18 [facility] CLIA# [id number] [address] [facility] [place] [address] * (ABNORMAL) CBC WITH DIFFERENTIAL (03/18/2021 4:34 AM MOVIE THEATER USHER) WBC 8.7 4.0 - 9.8 K/uL 03/18/2021 5:32 AM [facility] RBC 4.13 3.90 - 4.90 M/uL 03/18/2021 5:32 AM MOVIE THEATER USHER [facility] HEMOGLOBIN 12.2 11.8 - 14.8 g/dL 03/18/2021 5:32 AM [employer] LAB[facility]ATORY SERVICES - [facility] HEMATOCRIT 38.4 35.5 - 44.0 % 03/18/2021 5:32 AM [employer] [facility] MCV 93.0 82.0 - 99.0 fL 03/18/2021 5:32 AM [employer] [facility] MCH 29.5 27.2 - 32.6 pg 03/18/2021 5:32 AM [employer] [facility] - [facility] MCHC 31.8 31.5 - 35.5 g/dL 03/18/2021 5:32 AM [employer] [facility] RDW 12.6 11.5 - 14.5 % 03/18/2021 5:32 AM [employer] [facility] RDW-STDEV 42.8 37.1 - 48.7 fL 03/18/2021 5:32 AM [employer] [facility] PLATELETS 280 140 - 350 K/uL 03/18/2021 5:32 AM [employer] [facility] MPV 9.7 9.3 - 12.4 fL 03/18/2021 5:32 AM [employer] [facility] NEUTROPHILS 87 % 03/18/2021 5:32 AM [employer] [facility] LYMPHOCYTES 9 % 03/18/2021 5:32 AM [employer] [facility] MONOCYTES 3 % 03/18/2021 5:32 AM [employer] [facility] EOSINOPHILS 0 % 03/18/2021 5:32 AM [employer] [facility] BASOPHILS 0 % 03/18/2021 5:32 AM [employer] [facility] IMMATURE GRANULOCYTES 1 % 03/18/2021 5:32 AM [employer] [facility] Comment:IG (Immature Granulo cyte) count includes Metamyelocytes, Myelocytes, and Promyelocytes NEUTROPHIL ABSOLUTE 7.52(H) 1.90 - 7.00 K/uL 03/18/2021 5:32 AM [employer] [facility] LYMPHOCYTE ABSOLUTE 0.79 0.70 - 4.50 K/uL 03/18/2021 5:32 AM M[employer]IE THEATER USHER [employer] LABORATORY SERVICES - . [place] MONOCYTE ABSOLUTE 0.28 0.10 - 1.30 K/uL 03/18/2021 5:32 AM M[employer] THEATER USHER [employer] LABORATORY SERVICES - . [place] EOSINOPHIL ABSOLUTE 0.00 0.00 - 0.70 K/uL 03/18/2021 5:32 AM M[employer] THEATER USHER [employer] LABORATORY SERVICES - . [place] BASOPHILS ABSOLUTE 0.01 0.00 - 0.20 K/uL 03/18/2021 5:32 AM M[employer] THEATER USHER [employer] LABORATORY SERVICES - . [place] IMMATURE GRANULOCYTES ABSOLUTE 0.08(H) 0.00 - 0.03 K/uL 03/18/2021 5:32 AM MOVIE THEATER USHER [employer] LABORATORY SERVICES - [facility] Blood Venipuncture / Unknown 03/18/2021 4:34 AM MOVIE THEATER USHER 03/18/2021 4:57 AM MOVIE THEATER USHER Tab Jonas MD HEMATOLOGY ORDERABLE S [facility] [employer]18 [facility] CLIA# [id number] [address] [place] [address] * MAGNESIUM LEVEL (03/18/2021 4:34 AM MOVIE THEATER USHER) MAGNESIUM 2.3 1.6 - 2.4 mg/dL 03/18/2021 5:43 AM MOVIE THEATER USHER GitHub [facility] Blood Venipuncture / Unknown 03/18/2021 4:34 AM MOVIE THEATER USHER 03/18/2021 4:55 AM M[employer] THEATER USHER Janice Alanis MD CHEMISTRY ORDERAB LES [facility] [employer] [facility] CLIA# [id number] [address] [place] [address] * (ABNORMAL) RENAL FUNCTION PANEL (03/18/2021 4:34 AM MOVIE THEATER USHER) SODIUM 138 136 - 145 mmol/L 03/18/2021 5:43 AM MOVIE THEATER USHER [employer] LABORATORY SERVICES - [facility] POTASSIUM 4.3 3.5 - 5.0 mmol/L 03/18/2021 5:43 AM [employer] LABORATORY SERVICES - [facility] [place] CHLORIDE 104 98 - 107 mmol/L 03/18/2021 5:43 AM [employer] [facility] CO2 23 22 - 29 mmol/L 03/18/2021 5:43 AM [employer] LAB[facility]ATORY SERVICES - [facility] [place] CALCIUM 8.7 8.6 - 10.2 mg/dL 03/18/2021 5:43 AM [employer] LAB[facility]ATORY SERVICES - [facility] [place] BUN 24(H) 8 - 23 mg/dL 03/18/2021 5:43 AM [employer] [facility]ATORY SERVICES - [facility] [place] CREATININE 0.90 0.51 - 0.95 mg/dL 03/18/2021 5:43 AM [employer] [facility]ATORY SERVICES - [facility] [place] GLUCOSE 146(H) 74 - 99 mg/dL 03/18/2021 5:43 AM [employer] LAB[facility]ATORY SERVICES - [facility] [place] ALBUMIN 3.4(L) 3.5 - 5.2 g/dL 03/18/2021 5:43 AM [employer] LAB[facility]ATORY SERVICES - [facility] [place] PHOSPHORUS 2.9 2.5 - 4.5 mg/dL 03/18/2021 5:43 AM [employer] LABORATORY SERVICES - . [facility] GFR >60 mL/min/1.7 3 sq meter 03/18/2021 5:43 AM [employer] LABORATORY SERVICES - [facility] Comment: eGFR has not been validated for [...] mL/min/1.7 3 sq meter 03/18/2021 5:43 AM [employer] LABORATORY SERVICES [facility] ANION GAP 11 8 - 16 mmol/L 03/18/2021 5:43 AM [employer] LABORATORY SERVICES [facility] Blood Venipuncture / Unknown 03/18/2021 4:34 AM MOVIE THEATER USHER 03/18/2021 4:55 AM MOVIE THEATER USHER Janice Alanis MD CHEMISTRY ORDERAB LES [facility] LABORATORY SERVICES [facility]# [id number] [address] [facility] [place] [address] * (ABNORMAL) BASIC METABOLIC PANEL (03/18/2021 12:25 AM MOVIE THEATER USHER) SODIUM 138 136 - 145 mmol/L 03/18/2021 1:04 AM [facility] [employer] LABORATORY SERVICES - . [facility] POTASSIUM 4.2 3.5 - 5.0 mmol/L 03/18/2021 1:04 AM [facility] [employer] LABORATORY [facility] - . [facility] CHLORIDE 104 98 - 107 mmol/L 03/18/2021 1:04 AM [facility] [employer] CO2 22 22 - 29 mmol/L 03/18/2021 1:04 AM [facility] [employer] [facility] CALCIUM 8.6 8.6 - 10.2 mg/dL 03/18/2021 1:04 AM [facility] [employer] [facility] BUN 24(H) 8 - 23 mg/dL 03/18/2021 1:04 AM [facility] [employer] [facility] CREATININE 0.82 0.51 - 0.95 mg/dL 03/18/2021 1:04 AM [facility] [employer] [facility] GLUCOSE 164(H) 74 - 99 mg/dL 03/18/2021 1:04 AM [facility] [employer] [facility] GFR >60 mL/min/1.7 3 sq meter 03/18/2021 1:04 AM [facility] [employer] LABORATORY SERVICES - . [facility] Comment: eGFR has not been validated [...] mL/min/1.7 3 sq meter 03/18/2021 1:04 AM MOVIE THEATER USHER [facility] ANION GAP 12 8 - 16 mmol/L 03/18/2021 1:04 AM M[employer] THEATER USHER [facility] Blood Venipuncture / Unknown 03/18/2021 12:25 AM MOVIE THEATER USHER 03/18/2021 12:28 AM MOVIE THEATER USHER Jocelin Goins MD CHEMISTRY ORDERABLE S [facility] ELISEPRIETO# [id number] [address] [place] [address] * EKG 12-LEAD (03/17/2021 7:05 PM MOVIE THEATER USHER) 03/17/2021 7:05 PM MOVIE THEATER USHER Narrative INTERFACE SYSTEM - 03/18/2021 8:08 AM MOVIE THEATER USHER ? Stationary ECG Study ? [facility] ? Test Date: ?03/17/2021 7:05 PM Pat Name: ? VICK TANNER ? Department: ?? 45 ?Room: ? 474F 6 Gender: ? F ?Weather Stripper: ?? earle2 : ?1955 ? Requested By: KATHERIN FORGET R Order Number: [id number] ?Reading MD: ?? Bhupinder Morales ? Measurements Intervals ?[place] ? Rate: ? 63 ? P: ?53 CO: ? 165 ?QRS: ?15 QRSD: ? 96 ? T: ?22 QT: ? 433 ? QTc: ?444 ? Interpretive Statements ? Sinus rhythm Ventricular premature complex Left atrial enlargement Low voltage, precordial leads PRWP Electronically Signed On 03-18-2021 8:08:07 MOVIE THEATER USHER by Bhupinder Morales Procedure Note Bhupinder Morales MD - 03/18/2021 Stationary ECG Study [facility] Test Date: 03/17/2021 7:05 PM Pat Name: VICK TANNER Department: 45 Room: [facility] Gender: F Weather Stripper: earle2 : 1955 Requested By: KATHERIN Lindsay Order Number: [id number] Reading MD: Bhupinder Morales Measurements Intervals [place] Rate: 63 P: 53 CO: 165 QRS: 15 QRSD: 96 T: 22 QT: 433 QTc: 444 Interpretive Statements Sinus rhythm Ventricular premature complex Left atrial enlargement Low voltage, precordial leads PRWP Electronically Signed On 03-18-2021 8:08:07 MOVIE THEATER USHER by Bhupinder Morales Jeanne Hemphill MD ECG ORDERABLES INTERFACE SYSTEM Refer to clinic/hospital department * POC GLUCOSE (03/17/2021 6:11 PM MOVIE THEATER USHER) GLUCOSE POC 97 74 - 99 mg/dL 03/17/2021 6:11 PM MOVIE THEATER USHER [facility] LABORATORY [facility] SPECIMEN SOURCE, GLUCOSE POC Whole Blood 03/17/2021 6:11 PM MOVIE THEATER USHER [facility] LABORATORY [facility] PACK PULLER NAME POC ROSEANNA NORTON 03/17/2021 6:11 PM MOVIE THEATER USHER [facility] LABORATORY [facility] Blood, whole 03/17/2021 6:11 PM MOVIE THEATER USHER 03/17/2021 6:24 PM MOVIE THEATER USHER Silvestre Levine DO POINT OF CARE TESTIN G [facility] CLIA# [id number] [address] [place] [address] * XR CHEST PA OR AP 1 VW (03/17/2021 5:15 PM MOVIE THEATER USHER) Anatomical Region Laterality Modality Chest Computed Radiogr aphy 03/17/2021 5:15 PM MOVIE THEATER USHER Impressions 03/17/2021 5:31 PM MOVIE THEATER USHER IMPRESSION: Left subclavian catheter terminates in the SVC. No pneumothorax. No focal consolidation.. DICTATION LOCATION: Location [address] [place] [address] Narrative 03/17/2021 5:31 PM MOVIE THEATER USHER EXAMINATION: XR CHEST PA OR AP 1 [...] pneumothorax. No focal consolidation.. DICTATION LOCATION: Location [address] [place] [address] Jocelin Goins MD DIAGNOSTIC IMAGING ORDERABLES * (ABNORMAL) BASIC METABOLIC PANEL (03/17/2021 4:39 PM MOVIE THEATER USHER) SODIUM 139 136 - 145 mmol/L 03/17/2021 5:37 PM MOVIE THEATER USHER [facility] LABORATORY SERVICES - [facility] POTASSIUM 4.3 3.5 - 5.0 mmol/L 03/17/2021 5:37 PM [facility] [employer] LABORATORY SERVICES - . [facility] CHLORIDE 105 98 - 107 mmol/L 03/17/2021 5:37 PM [facility] [employer] LABORATORY SERVICES - . [facility] CO2 25 22 - 29 mmol/L 03/17/2021 5:37 PM [facility] [employer] LABORATORY SERVICES - [facility] CALCIUM 8.5(L) 8.6 - 10.2 mg/dL 03/17/2021 5:37 PM [facility] [employer] LABORATORY SERVICES - . [facility] BUN 22 8 - 23 mg/dL 03/17/2021 5:37 PM [facility] [employer] LABORATORY SERVICES [facility] CREATININE 0.70 0.51 - 0.95 mg/dL 03/17/2021 5:37 PM [facility] [employer] LABORATORY [facility] GLUCOSE 89 74 - 99 mg/dL 03/17/2021 5:37 PM [facility] [employer] LABORATORY [facility] GFR >60 mL/min/1.7 3 sq meter 03/17/2021 5:37 PM [facility] [employer] LABORATORY SERVICES [facility] Comment: eGFR has not been validated for [...] mL/min/1.7 3 sq meter 03/17/2021 5:37 PM MOVIE THEATER USHER [employer] LABORATORY SERVICES [facility] ANION GAP 9 8 - 16 mmol/L 03/17/2021 5:37 PM [facility] [employer] [facility] Blood Venipuncture / Unknown 03/17/2021 4:39 PM MOVIE THEATER USHER 03/17/2021 4:42 PM MOVIE THEATER USHER Jocelin Goins MD CHEMISTRY ORDERABLE S [facility]# [id number] [place] [address] * CT CERVICAL THORACIC WITH CONTRAST (03/17/2021 3:45 PM MOVIE THEATER USHER) Anatomical Region Laterality Modality Spine Computed Tomogra phy 03/17/2021 3:45 PM MOVIE THEATER USHER Impressions 03/17/2021 6:07 PM MOVIE THEATER USHER IMPRESSION: Status post anterior cervical discectomy and [...] hours. ?? DICTATION LOCATION: Location 1 - [facility] ?? Narrative 03/17/2021 6:07 PM MOVIE THEATER USHER POST MYELOGRAM CT OF CERVICAL AND THORACIC [...] 1600 hours. DICTATION LOCATION: Location 1 - [facility] Barron AGUAYO CT ORDERABLES * XR MYELOGRAM 2 OR MORE REGIONS (03/17/2021 3:16 PM MOVIE THEATER USHER) Anatomical Region Laterality Modality Spine Computed Radiogr aphy 03/17/2021 3:19 PM MOVIE THEATER USHER Narrative 03/17/2021 6:07 PM MOVIE THEATER USHER PROCEDURE NOTE CERVICAL THORACIC MYELOGRAM VIA LUMBAR [...] see the studies. ?? Dictation location one [facility] Procedure Note Cliff Seaman MD - 03/17/2021 [...] Please see the studies. Dictation location one [facility] Barron AGUAYO DIAGNOSTIC IMAGING ORDERABLES * (ABNORMAL) POC GLUCOSE (03/17/2021 1:11 PM MOVIE THEATER USHER) GLUCOSE POC 137(H) 74 - 99 mg/dL 03/17/2021 1:11 PM MOVIE THEATER USHER [facility] LABORATORY SERVICES [facility] SPECIMEN SOURCE, GLUCOSE POC Whole Blood 03/17/2021 1:11 PM MOVIE THEATER USHER [employer] LABORATORY SERVICES - [facility] PACK PULLER NAME POC ADRIANA DISLA 03/17/2021 1:11 PM MOVIE THEATER USHER [employer] LABORATORY SERVICES - [facility] Blood, whole 03/17/2021 1:11 PM MOVIE THEATER USHER 03/17/2021 1:20 PM MOVIE THEATER USHER Silvestre Levine DO POINT OF CARE TESTIN G [employer] SERVICES [facility] CLIA# [id number] [address] [place] [address] * (ABNORMAL) POC GLUCOSE (03/17/2021 10:28 AM MOVIE THEATER USHER) GLUCOSE POC 182(H) 74 - 99 mg/dL 03/17/2021 10:28 AM MOVIE THEATER USHER [employer] LABORATORY SERVICES [facility] SPECIMEN SOURCE, GLUCOSE POC Whole Blood 03/17/2021 10:28 AM [employer] [facility] PACK PULLER NAME POC BARTOLOME SHARMA 03/17/2021 10:28 AM [employer] [facility] Blood, whole 03/17/2021 10:2 8 AM [employer] 03/17/2021 10:36 AM [employer] Lalit Ortiz DO POINT OF CARE TEST ING [facility] [employer] CLIA# [id number] [address] [place] [address] * (ABNORMAL) BASIC METABOLIC PANEL (03/17/2021 8:24 AM [employer]) SODIUM 138 136 - 145 mmol/L 03/17/2021 9:01 AM [employer] [facility] POTASSIUM 4.1 3.5 - 5.0 mmol/L 03/17/2021 9:01 AM [employer] [facility] CHLORIDE 104 98 - 107 mmol/L 03/17/2021 9:01 AM [employer] CO2 23 22 - 29 mmol/L 03/17/2021 9:01 AM [facility] [employer] [facility] CALCIUM 8.5(L) 8.6 - 10.2 mg/dL 03/17/2021 9:01 AM [facility] BUN 24(H) 8 - 23 mg/dL 03/17/2021 9:01 AM [facility] CREATININE 0.78 0.51 - 0.95 mg/dL 03/17/2021 9:01 AM [facility] GLUCOSE 127(H) 74 - 99 mg/dL 03/17/2021 9:01 AM [facility] GFR >60 mL/min/1.7 3 sq meter 03/17/2021 9:01 AM [facility] [employer] [facility] Comment: eGFR has not been validated [...] mL/min/1.7 3 sq meter 03/17/2021 9:01 AM [facility] ANION GAP 11 8 - 16 mmol/L 03/17/2021 9:01 AM [facility] [employer] [facility] Blood Venipuncture / Unknown 03/17/2021 8:24 AM [employer] 03/17/2021 8:29 AM [employer] Jocelin Goins MD CHEMISTRY ORDERABLE S [id number] [address] [place] [address] * (ABNORMAL) CBC WITH DIFFERENTIAL (03/17/2021 4:27 AM [employer]) WBC 7.5 4.0 - 9.8 K/uL 03/17/2021 5:11 AM [facility] RBC 3.71(L) 3.90 - 4.90 M/uL 03/17/2021 5:11 AM [facility] HEMOGLOBIN 10.7(L) 11.8 - 14.8 g/dL 03/17/2021 5:11 AM [facility] HEMATOCRIT 34.0(L) 35.5 - 44.0 % 03/17/2021 5:11 AM [facility] MCV 91.6 82.0 - 99.0 fL 03/17/2021 5:11 AM [facility] MCH 28.8 27.2 - 32.6 pg 03/17/2021 5:11 AM [facility] - [facility] MCHC 31.5 31.5 - 35.5 g/dL 03/17/2021 5:11 AM [facility] RDW 12.8 11.5 - 14.5 % 03/17/2021 5:11 AM [facility] RDW-STDEV 42.5 37.1 - 48.7 fL 03/17/2021 5:11 AM [facility] PLATELETS 201 140 - 350 K/uL 03/17/2021 5:11 AM [facility] MPV 10.2 9.3 - 12.4 fL 03/17/2021 5:11 AM [facility] NEUTROPHILS 85 % 03/17/2021 5:11 AM [facility] LYMPHOCYTES 10 % 03/17/2021 5:11 AM [facility] MONOCYTES 4 % 03/17/2021 5:11 AM [facility] EOSINOPHILS 0 % 03/17/2021 5:11 AM [facility] BASOPHILS 0 % 03/17/2021 5:11 AM [facility] IMMATURE GRANULOCYTES 1 % 03/17/2021 5:11 AM [facility] [facility] Comment:IG (Immature Granulo cyte) count includes Metamyelocytes, Myelocytes, and Promyelocytes NEUTROPHIL ABSOLUTE 6.39 1.90 - 7.00 K/uL 03/17/2021 5:11 AM [facility] LABORATORY SERVICES - . [facility] LYMPHOCYTE ABSOLUTE 0.74 0.70 - 4.50 K/uL 03/17/2021 5:11 AM [facility] LABORATORY SERVICES - [facility] MONOCYTE ABSOLUTE 0.29 0.10 - 1.30 K/uL 03/17/2021 5:11 AM [facility] LABORATORY SERVICES - [facility] EOSINOPHIL ABSOLUTE 0.00 0.00 - 0.70 K/uL 03/17/2021 5:11 AM [facility] LABORATORY SERVICES - [facility] BASOPHILS ABSOLUTE 0.01 0.00 - 0.20 K/uL 03/17/2021 5:11 AM [facility] LABORATORY SERVICES - . [facility] IMMATURE GRANULOCYTES ABSOLUTE 0.05(H) 0.00 - 0.03 K/uL 03/17/2021 5:11 AM [facility] LABORATORY SERVICES - [facility] Blood Venipuncture / Unknown 03/17/2021 4:27 AM [employer] 03/17/2021 4:51 AM MOVIE THEATER USHER Tab Jonas MD HEMATOLOGY ORDERABLE S [facility] CLIA# [id number] [address] [place] [address] * MAGNESIUM LEVEL (03/17/2021 4:27 AM MOVIE THEATER USHER) MAGNESIUM 2.3 1.6 - 2.4 mg/dL 03/17/2021 5:24 AM MOVIE THEATER USHER [facility] LABORATORY [facility] Blood Venipuncture / Unknown 03/17/2021 4:27 AM MOVIE THEATER USHER 03/17/2021 4:51 AM MOVIE THEATER USHER Janice Alanis MD CHEMISTRY ORDERAB LES [facility] [employer] [facility] CLIA# [id number] [address] [place] [address] * (ABNORMAL) RENAL FUNCTION PANEL (03/17/2021 4:27 AM MOVIE THEATER USHER) [facility] SODIUM 137 136 - 145 mmol/L 03/17/2021 5:24 AM [facility] [employer] LABORATORY SERVICES - . [place] POTASSIUM 4.3 3.5 - 5.0 mmol/L 03/17/2021 5:24 AM [employer] THE[employer] US[employer] LABORATORY SERVICES - . [facility] CHLORIDE 106 98 - 107 mmol/L 03/17/2021 5:24 AM M[employer] THEATER [employer]HER [employer] LABORATORY SERVICES - [facility] CO2 21(L) 22 - 29 mmol/L 03/17/2021 5:24 AM [employer] LABORATORY SERVICES - . [place] CALCIUM 8.6 8.6 - 10.2 mg/dL 03/17/2021 5:24 AM [facility] [employer] [facility] - . [place] BUN 22 8 - 23 mg/dL 03/17/2021 5:24 AM [employer] THEATER US[employer] LABORATORY SERVICES - . [facility] CREATININE 0.75 0.51 - 0.95 mg/dL 03/17/2021 5:24 AM [employer] THEATER US[employer] LABORATORY SERVICES - . [place] GLUCOSE 137(H) 74 - 99 mg/dL 03/17/2021 5:[address] [employer] [facility] - . [place] ALBUMIN 3.2(L) 3.5 - 5.2 g/dL 03/17/2021 5:24 AM MOVIE THEATER [employer]HER [employer] [facility] - . [place] PHOSPHORUS 2.5 2.5 - 4.5 mg/dL 03/17/2021 5:24 AM [employer] LABORATORY SERVICES [facility] GFR >60 mL/min/1.7 3 sq meter 03/17/2021 5:24 AM [employer] LABORATORY SERVICES - . [place] Comment: eGFR [...] mL/min/1.7 3 sq meter 03/17/2021 5:24 AM [facility] [employer] [facility] - . [place] ANION GAP 10 8 - 16 mmol/L 03/17/2021 5:24 AM [facility] [employer] - [facility] Blood Venipuncture / Unknown 03/17/2021 4:27 AM MOVIE THEATER USHER 03/17/2021 4:51 AM MOVIE THEATER USHER Janice Alanis MD CHEMISTRY ORDERAB LES [employer] SERVICES [facility] CLIA# [id number] [address] [facility] [place] [address] * (ABNORMAL) BASIC METABOLIC PANEL (03/17/2021 12:50 AM MOVIE THEATER USHER) SODIUM 141 136 - 145 mmol/L 03/17/2021 1:46 AM [facility] [employer] [facility]. [place] POTASSIUM 4.3 3.5 - 5.0 mmol/L 03/17/2021 1:46 AM [facility] [employer] - . [place] CHLORIDE 110(H) 98 - 107 mmol/L 03/17/2021 1:46 AM [facility] [employer] - [facility] CO2 22 22 - 29 mmol/L 03/17/2021 1:46 AM [facility] [employer] - [facility] CALCIUM 8.4(L) 8.6 - 10.2 mg/dL 03/17/2021 1:46 AM [facility] BUN 20 8 - 23 mg/dL 03/17/2021 1:46 AM [facility] [employer] [facility] - [facility] CREATININE 0.71 0.51 - 0.95 mg/dL 03/17/2021 1:46 AM MOVIE THEATER [employer]HER [employer] - [facility] GLUCOSE 141(H) 74 - 99 mg/dL 03/17/2021 1:46 AM [facility] [employer] SERVICES - [facility] GFR >60 mL/min/1.7 3 sq meter 03/17/2021 1:46 AM M[employer] THEATER USHER [employer] LABORATORY SERVICES - [facility] Comment: eGFR [...] mL/min/1.7 3 sq meter 03/17/2021 1:46 AM [employer] THE[employer] LABORATORY SERVICES [facility] ANION GAP 9 8 - 16 mmol/L 03/17/2021 1:46 AM M[employer] THE[employer] LABORATORY SERVICES [facility] Blood Venipuncture / Unknown 03/17/2021 12:50 AM MOVIE THEATER USHER 03/17/2021 1:10 AM MOVIE THEATER USHER Jocelin Goins MD CHEMISTRY ORDERABLE S Performing Organization Address City/[facility]/ZIP Co de Phone Number [facility] [employer] [facility] CLIA# [id number] [address] [place] [address] * (ABNORMAL) POC GLUCOSE (03/16/2021 8:39 PM MOVIE THEATER USHER) GLUCOSE POC 122(H) 74 - 99 mg/dL 03/16/2021 8:39 PM MOVIE THEATER USHER [facility] LABORATORY SERVICES [facility] SPECIMEN SOURCE, GLUCOSE POC Whole Blood 03/16/2021 8:39 PM MOVIE THEATER USHER [facility] LABORATORY SERVICES [facility] PACK PULLER NAME POC LISS COOKIE 03/16/2021 8:39 PM [facility] THEATER [facility] Blood, whole 03/16/2021 8:39 PM MOVIE THEATER USHER 03/16/2021 8:50 PM MOVIE THEATER USHER Lalit Ortiz DO POINT OF CARE TEST ING Performing Organization Address [facility]/ZIP Co de Phone Number [facility] [employer] [facility] CLIA# [id number] [address] [place] [address] * (ABNORMAL) POC GLUCOSE (03/16/2021 4:21 PM MOVIE THEATER USHER) GLUCOSE POC 135(H) 74 - 99 mg/dL 03/16/2021 4:21 PM [facility] LABORATORY [facility] SPECIMEN SOURCE, GLUCOSE POC Whole Blood 03/16/2021 4:21 PM [facility] LABORATORY [facility] COMMENT, GLU POC Notified RN/MD 03/16/2021 4:21 PM [facility] LABORATORY [facility] PACK PULLER NAME POC SOHEILA LINARES 03/16/2021 4:21 PM [facility] [employer] [facility] Blood, whole 03/16/2021 4:21 PM MOVIE THEATER USHER 03/16/2021 4:29 PM MOVIE THEATER USHER Lalit Ortiz DO POINT OF CARE TEST ING [facility] [employer] [facility]# [id number] [address] [place] [address] * (ABNORMAL) BASIC METABOLIC PANEL (03/16/2021 4:16 PM MOVIE THEATER USHER) Pathologist [facility] SODIUM 134(L) 136 - 145 mmol/L 03/16/2021 5:05 PM [facility] LABORATORY [facility] POTASSIUM 3.9 3.5 - 5.0 mmol/L 03/16/2021 5:05 PM [facility] LABORATORY [facility] CHLORIDE 105 98 - 107 mmol/L 03/16/2021 5:05 PM [facility] LABORATORY [facility] CO2 21(L) 22 - 29 mmol/L 03/16/2021 5:05 PM [facility] LABORATORY [facility] CALCIUM 8.5(L) 8.6 - 10.2 mg/dL 03/16/2021 5:05 PM [facility] LABORATORY [facility] BUN 21 8 - 23 mg/dL 03/16/2021 5:05 PM [facility] LABORATORY [facility] CREATININE 0.72 0.51 - 0.95 mg/dL 03/16/2021 5:05 PM [facility] LABORATORY [facility] GLUCOSE 170(H) 74 - 99 mg/dL 03/16/2021 5:05 PM [facility] LABORATORY [facility] GFR >60 mL/min/1.7 3 sq meter 03/16/2021 5:05 PM [facility] [employer] [facility] Comment: eGFR has not been validated [...] mL/min/1.7 3 sq meter 03/16/2021 5:05 PM [facility] LABORATORY [facility] ANION GAP 8 8 - 16 mmol/L 03/16/2021 5:05 PM [facility] [employer] [facility] Blood Venipuncture / Unknown 03/16/2021 4:16 PM MOVIE THEATER USHER 03/16/2021 4:28 PM MOVIE THEATER USHER Jocelin Goins MD CHEMISTRY ORDERABLE S [facility] [employer] [facility]# [id number] [address] [facility] [place] [address] * (ABNORMAL) POC GLUCOSE (03/16/2021 12:42 PM MOVIE THEATER USHER) GLUCOSE POC 188(H) 74 - 99 mg/dL 03/16/2021 12:42 PM [facility] [employer] [facility] SPECIMEN SOURCE, GLUCOSE POC Whole Blood 03/16/2021 12:42 PM [facility] LABORATORY [facility] COMMENT, GLU POC Notified RN/MD 03/16/2021 12:42 PM [facility] [employer] [facility] PACK PULLER NAME POC VIC SOHEILA 03/16/2021 12:42 PM [facility] LABORATORY [facility] Blood, whole 03/16/2021 12:4 2 PM MOVIE THEATER USHER 03/16/2021 12:51 PM MOVIE THEATER USHER Lalithilary Abraham Diana DO POINT OF CARE TEST ING Performing Organization Address [facility] Co de Phone Number [facility] [employer] [facility]# [id number] [address] [place] [address] * (ABNORMAL) POC GLUCOSE (03/16/2021 10:06 AM MOVIE THEATER USHER) Pathologist [facility] GLUCOSE POC 134(H) 74 - 99 mg/dL 03/16/2021 10:06 AM [facility] [employer] LABORATORY SERVICES [facility] SPECIMEN SOURCE, GLUCOSE POC Whole Blood 03/16/2021 10:06 AM [facility] [employer] LABORATORY SERVICES - [facility] COMMENT, GLU POC Notified RN/MD 03/16/2021 10:06 AM [facility] [employer] LABORATORY SERVICES [facility] PACK PULLER NAME POC SOHEILA LINARES 03/16/2021 10:06 AM [facility] [employer] LABORATORY SERVICES [facility] Blood, whole 03/16/2021 10:0 6 AM MOVIE THEATER USHER 03/16/2021 10:15 AM MOVIE THEATER USHER Lalithilary Abraham Kendragauri DO POINT OF CARE TEST ING Performing Organization Address [facility] Co de Phone Number [facility] [employer] [facility]# [id number] [address] [place] [address] * (ABNORMAL) CBC WITH DIFFERENTIAL (03/16/2021 6:14 AM MOVIE THEATER USHER) [facility] WBC 6.3 4.0 - 9.8 K/uL 03/16/2021 6:41 AM MOVIE THEATER USHER [employer] LABORATORY SERVICES [facility] RBC 3.70(L) 3.90 - 4.90 M/uL 03/16/2021 6:41 AM MOVIE THEATER USHER [employer] LABORATORY SERVICES [facility] HEMOGLOBIN 10.9(L) 11.8 - 14.8 g/dL 03/16/2021 6:41 AM MOVIE THEATER USHER [employer] LABORATORY SERVICES [facility] HEMATOCRIT 34.1(L) 35.5 - 44.0 % 03/16/2021 6:41 AM MOVIE THEATER USHER [employer] LABORATORY SERVICES - [facility] MCV 92.2 82.0 - 99.0 fL 03/16/2021 6:41 AM [employer] LABORATORY SERVICES - [facility] MCH 29.5 27.2 - 32.6 pg 03/16/2021 6:41 AM MOVIE THEATER USHER [employer] LABORATORY SERVICES - [facility] MCHC 32.0 31.5 - 35.5 g/dL 03/16/2021 6:41 AM [employer] LABORATORY SERVICES - [facility] RDW 12.8 11.5 - 14.5 % 03/16/2021 6:41 AM MOVIE THEATER USHER [employer] LABORATORY SERVICES - [facility] RDW-STDEV 42.6 37.1 - 48.7 fL 03/16/2021 6:41 AM [employer] LABORATORY SERVICES - [facility] PLATELETS 170 140 - 350 K/uL 03/16/2021 6:41 AM [employer] LABORATORY SERVICES - [facility] MPV 9.7 9.3 - 12.4 fL 03/16/2021 6:41 AM [employer] LABORATORY SERVICES - [facility] NEUTROPHILS 89 % 03/16/2021 6:41 AM [employer] LABORATORY SERVICES - [facility] LYMPHOCYTES 9 % 03/16/2021 6:41 AM [employer] LABORATORY SERVICES - [facility] MONOCYTES 2 % 03/16/2021 6:41 AM [employer] LAB[facility]ATORY SERVICES - [facility] EOSINOPHILS 0 % 03/16/2021 6:41 AM [employer] LAB[facility]ATORY SERVICES - [facility] BASOPHILS 0 % 03/16/2021 6:41 AM [employer] LABORATORY SERVICES - [facility] IMMATURE GRANULOCYTES 1 % 03/16/2021 6:41 AM [employer] LAB[facility]ATORY SERVICES - [facility] Comment:IG (Immature Granulo cyte) count includes Metamyelocytes, Myelocytes, and Promyelocytes NEUTROPHIL ABSOLUTE 5.63 1.90 - 7.00 K/uL 03/16/2021 6:41 AM MOVIE THEATER USHER [employer] LABORATORY SERVICES - [facility] LYMPHOCYTE ABSOLUTE 0.54(L) 0.70 - 4.50 K/uL 03/16/2021 6:41 AM [employer] LABORATORY SERVICES - [facility] MONOCYTE ABSOLUTE 0.10 0.10 - 1.30 K/uL 03/16/2021 6:41 AM MOVIE THEATER USHER [employer] LABORATORY SERVICES - [facility] EOSINOPHIL ABSOLUTE 0.00 0.00 - 0.70 K/uL 03/16/2021 6:41 AM [facility] LABORATORY SERVICES - [facility] BASOPHILS ABSOLUTE 0.00 0.00 - 0.20 K/uL 03/16/2021 6:41 AM [facility] LABORATORY SERVICES - [facility] IMMATURE GRANULOCYTES ABSOLUTE 0.07(H) 0.00 - 0.03 K/uL 03/16/2021 6:41 AM [facility] LABORATORY SERVICES - [facility] Blood Venipuncture / Unknown 03/16/2021 6:14 AM MOVIE THEATER USHER 03/16/2021 6:27 AM MOVIE THEATER USHER Tab Jonas MD HEMATOLOGY ORDERABLE S [facility] [employer] [facility] CLIA# [id number] [address] [place] [address] * MAGNESIUM LEVEL (03/16/2021 6:14 AM MOVIE THEATER USHER) MAGNESIUM 2.2 1.6 - 2.4 mg/dL 03/16/2021 7:09 AM [facility] LABORATORY [facility] Blood Venipuncture / Unknown 03/16/2021 6:14 AM MOVIE THEATER USHER 03/16/2021 6:27 AM MOVIE THEATER USHER Janice Alanis MD CHEMISTRY ORDERAB LES [facility] [employer] [facility] CLIA# [id number] [address] [place] [address] * (ABNORMAL) RENAL FUNCTION PANEL (03/16/2021 6:14 AM MOVIE THEATER USHER) SODIUM 136 136 - 145 mmol/L 03/16/2021 7:08 AM [facility] [employer] LABORATORY SERVICES [facility] POTASSIUM 4.3 3.5 - 5.0 mmol/L 03/16/2021 7:08 AM [facility] [employer] LABORATORY SERVICES [facility] CHLORIDE 105 98 - 107 mmol/L 03/16/2021 7:08 AM [facility] [employer] LABORATORY SERVICES [facility] CO2 21(L) 22 - 29 mmol/L 03/16/2021 7:08 AM [facility] LABORATORY SERVICES - [facility] CALCIUM 8.3(L) 8.6 - 10.2 mg/dL 03/16/2021 7:08 AM [facility] LABORATORY SERVICES - [facility] BUN 24(H) 8 - 23 mg/dL 03/16/2021 7:08 AM [facility] LABORATORY SERVICES - [facility] [place] CREATININE 0.75 0.51 - 0.95 mg/dL 03/16/2021 7:08 AM [facility] LABORATORY SERVICES - [facility] GLUCOSE 155(H) 74 - 99 mg/dL 03/16/2021 7:08 AM M[employer] THEATER USHER [employer] LABORATORY SERVICES - [facility] [place] ALBUMIN 3.2(L) 3.5 - 5.2 g/dL 03/16/2021 7:08 AM [facility] LABORATORY SERVICES - [facility] PHOSPHORUS 2.8 2.5 - 4.5 mg/dL 03/16/2021 7:08 AM M[employer] THEATER USHER [employer] LABORATORY SERVICES - . [facility] GFR >60 mL/min/1.7 3 sq meter 03/16/2021 7:08 AM MOVIE THEATER USHER [employer] LABORATORY SERVICES - [facility] Comment: eGFR has not been validated for [...] mL/min/1.7 3 sq meter 03/16/2021 7:08 AM MOVIE THEATER USHER [employer] LABORATORY SERVICES - . [facility] ANION GAP 10 8 - 16 mmol/L 03/16/2021 7:08 AM [employer] SERVICES [facility] Blood Venipuncture / Unknown 03/16/2021 6:14 AM MOVIE THEATER USHER 03/16/2021 6:27 AM MOVIE THEATER USHER Janice Alanis MD CHEMISTRY ORDERAB LES [employer] LABORATORY SERVICES - [facility] CLIA# [id number] [address] [place] [address] * (ABNORMAL) BASIC METABOLIC PANEL (03/15/2021 11:57 PM MOVIE THEATER USHER) SODIUM 136 136 - 145 mmol/L 03/16/2021 1:17 AM [facility] [employer] LABORATORY SERVICES - [facility] POTASSIUM 4.5 3.5 - 5.0 mmol/L 03/16/2021 1:17 AM [facility] [employer] SERVICES - [facility] CHLORIDE 106 98 - 107 mmol/L 03/16/2021 1:17 AM [facility] [employer] SERVICES - [facility] CO2 21(L) 22 - 29 mmol/L 03/16/2021 1:17 AM [facility] [employer] SERVICES - [facility] CALCIUM 8.4(L) 8.6 - 10.2 mg/dL 03/16/2021 1:17 AM [facility] [employer] SERVICES - [facility] BUN 23 8 - 23 mg/dL 03/16/2021 1:17 AM [facility] [employer] SERVICES - [facility] CREATININE 0.78 0.51 - 0.95 mg/dL 03/16/2021 1:17 AM [facility] [employer] SERVICES - [facility] GLUCOSE 173(H) 74 - 99 mg/dL 03/16/2021 1:17 AM [facility] [employer] SERVICES - [facility] GFR >60 mL/min/1.7 3 sq meter 03/16/2021 1:17 AM [facility] [employer] SERVICES - [facility] Comment: eGFR has [...] mL/min/1.7 3 sq meter 03/16/2021 1:17 AM [employer] SERVICES - [facility] ANION GAP 9 8 - 16 mmol/L 03/16/2021 1:17 AM MOVIE THEATER USHER [employer] LABORATORY SERVICES - [facility] Blood Venipuncture / Unknown 03/15/2021 11:57 PM MOVIE THEATER USHER 03/16/2021 12:29 AM MOVIE THEATER USHER Jocelin Goins MD CHEMISTRY ORDERABLE S [employer] LABORATORY SERVICES [facility] CLIA# [id number] [address] [place] [address] * (ABNORMAL) POC GLUCOSE (03/15/2021 8:26 PM MOVIE THEATER USHER) GLUCOSE POC 115(H) 74 - 99 mg/dL 03/15/2021 8:26 PM MOVIE THEATER USHER [employer] LABORATORY SERVICES [facility] SPECIMEN SOURCE, GLUCOSE POC Whole Blood 03/15/2021 8:26 PM MOVIE THEATER USHER [employer] LABORATORY SERVICES [facility] PACK PULLER NAME POC Martha Talbert 03/15/2021 8:26 PM MOVIE THEATER USHER [employer] LABORATORY SERVICES [facility] Blood, whole 03/15/2021 8:26 PM MOVIE THEATER USHER 03/15/2021 8:37 PM MOVIE THEATER USHER Lalit Ortiz DO POINT OF CARE TEST ING Performing Organization Address City/[facility]/ZIP Co de Phone Number [employer] SERVICES [facility] CLIA# [id number] [address] [place] [address] * (ABNORMAL) BASIC METABOLIC PANEL (03/15/2021 5:04 PM MOVIE THEATER USHER) SODIUM 138 136 - 145 mmol/L 03/15/2021 5:59 PM MOVIE THEATER USHER [employer] LABORATORY SERVICES - [facility] POTASSIUM 4.1 3.5 - 5.0 mmol/L 03/15/2021 5:59 PM MOVIE THEATER USHER [employer] LABORATORY SERVICES - [facility] CHLORIDE 106 98 - 107 mmol/L 03/15/2021 5:59 PM MOVIE THEATER USHER [employer] LABORATORY SERVICES - [facility] CO2 23 22 - 29 mmol/L 03/15/2021 5:59 PM MOVIE THEATER USHER [employer] LABORATORY SERVICES - [facility] CALCIUM 8.3(L) 8.6 - 10.2 mg/dL 03/15/2021 5:59 PM [facility] LABORATORY SERVICES - [facility] [place] BUN 27(H) 8 - 23 mg/dL 03/15/2021 5:59 PM [facility] LABORATORY SERVICES - . [facility] CREATININE 0.87 0.51 - 0.95 mg/dL 03/15/2021 5:59 PM [facility] LABORATORY [facility] - . [place] GLUCOSE 118(H) 74 - 99 mg/dL 03/15/2021 5:59 PM [facility] LABORATORY SERVICES - [facility] GFR >60 mL/min/1.7 3 sq meter 03/15/2021 5:59 PM [facility] LABORATORY SERVICES - [facility] Comment: eGFR has not been validated for [...] mL/min/1.7 3 sq meter 03/15/2021 5:59 PM [facility] LABORATORY [facility] ANION GAP 9 8 - 16 mmol/L 03/15/2021 5:59 PM [facility] LABORATORY [facility] Blood Venipuncture / Unknown 03/15/2021 5:04 PM MOVIE THEATER USHER 03/15/2021 5:19 PM MOVIE THEATER USHER Jocelin Goins MD CHEMISTRY ORDERABLE S [facility] [employer] SERVICES [facility]# [id number] [address] [facility] [place] [address] * (ABNORMAL) POC GLUCOSE (03/15/2021 1:33 PM MOVIE THEATER USHER) GLUCOSE POC 100(H) 74 - 99 mg/dL 03/15/2021 1:33 PM MOVIE THEATER USHER [employer] LABORATORY SERVICES - [facility] SPECIMEN SOURCE, GLUCOSE POC Whole Blood 03/15/2021 1:33 PM MOVIE THEATER USHER [employer] LABORATORY SERVICES - [facility] PACK PULLER NAME POC ETHAN CISNEROS 03/15/2021 1:33 PM MOVIE THE[employer] [facility] Blood, whole 03/15/2021 1:33 PM MOVIE THE[employer] USHER 03/15/2021 1:40 PM [employer]OV[employer] THE[employer] USHER Lalithilary Abraham Diana DO POINT OF CARE TEST ING Performing Organization Address [facility]/ZIP Co de Phone Number [facility] [employer] [facility] CLIA# [id number] [address] [place] [address] * (ABNORMAL) POC GLUCOSE (03/15/2021 8:01 AM MOVIE THE[employer] USHER) GLUCOSE POC 119(H) 74 - 99 mg/dL 03/15/2021 8:01 AM MOV[employer] THE[employer] - [facility] SPECIMEN SOURCE, GLUCOSE POC Whole Blood 03/15/2021 8:01 AM MOVIE THE[employer] [facility] - [facility] PACK PULLER NAME POC ROVERTO DIAZ 03/15/2021 8:01 AM MOVIE THE[employer] - [facility] Blood, whole 03/15/2021 8:01 AM MOVIE THE[employer] USHER 03/15/2021 8:09 AM MOV[employer] THE[employer] USHER Lalithilary Abraham Diana DO POINT OF CARE TEST ING [employer] [facility] CLIA# [id number] [address] [place] [address] * (ABNORMAL) CBC WITH DIFFERENTIAL (03/15/2021 5:55 AM MOVIE THEATER USHER) Pathologist [facility] WBC 9.2 4.0 - 9.8 K/uL 03/15/2021 6:19 AM [employer]OV[employer] THE[employer] RBC 3.48(L) 3.90 - 4.90 M/uL 03/15/2021 6:19 AM [employer]OV[employer] THE[employer] [facility] - [facility] HEMOGLOBIN 10.3(L) 11.8 - 14.8 g/dL 03/15/2021 6:19 AM MOVIE THEATER USHER [employer] [facility] - [facility] HEMATOCRIT 31.6(L) 35.5 - 44.0 % 03/15/2021 6:19 AM MOVIE THE[employer]HER [employer] [facility] - [facility] MCV 90.8 82.0 - 99.0 fL 03/15/2021 6:19 AM MOVIE THE[employer]HER [employer] [facility] - [facility] MCH 29.6 27.2 - 32.6 pg 03/15/2021 6:19 AM MOVIE THE[employer]HER [employer] [facility] - [facility] MCHC 32.6 31.5 - 35.5 g/dL 03/15/2021 6:19 AM MOV[employer] THE[employer] [facility] - [facility] RDW 12.6 11.5 - 14.5 % 03/15/2021 6:19 AM [facility] - [facility] RDW-STDEV 41.8 37.1 - 48.7 fL 03/15/2021 6:19 AM [facility] - [facility] PLATELETS 179 140 - 350 K/uL 03/15/2021 6:19 AM [facility] - [facility] MPV 9.9 9.3 - 12.4 fL 03/15/2021 6:19 AM [facility] - [facility] NEUTROPHILS 82 % 03/15/2021 6:19 AM [facility] - [facility] LYMPHOCYTES 10 % 03/15/2021 6:19 AM [facility] MONOCYTES 7 % 03/15/2021 6:19 AM [facility] - [facility] EOSINOPHILS 0 % 03/15/2021 6:19 AM [employer]OV[employer] THE[employer] [facility] - [facility] BASOPHILS 0 % 03/15/2021 6:19 AM MOVIE THE[employer] [facility] - [facility] IMMATURE GRANULOCYTES 1 % 03/15/2021 6:19 AM MOVIE THE[employer] [facility] - [facility] Comment:IG (Immature Granulo cyte) count includes Metamyelocytes, Myelocytes, and Promyelocytes NEUTROPHIL ABSOLUTE 7.58(H) 1.90 - 7.00 K/uL 03/15/2021 6:19 AM MOVIE THE[employer] - [facility] LYMPHOCYTE ABSOLUTE 0.91 0.70 - 4.50 K/uL 03/15/2021 6:19 AM MOVIE THE[employer] [facility] - . [facility] MONOCYTE ABSOLUTE 0.63 0.10 - 1.30 K/uL 03/15/2021 6:19 AM [facility]OVIE THEATER [facility] - [facility] EOSINOPHIL ABSOLUTE 0.00 0.00 - 0.70 K/uL 03/15/2021 6:19 AM MOVIE THE[employer] USHER [facility] - . [facility] BASOPHILS ABSOLUTE 0.01 0.00 - 0.20 K/uL 03/15/2021 6:19 AM MOVIE THEATER USHER [employer] LABORATORY SERVICES - . [facility] IMMATURE GRANULOCYTES ABSOLUTE 0.06(H) 0.00 - 0.03 K/uL 03/15/2021 6:19 AM [facility] - [facility] Blood Venipuncture / Unknown 03/15/2021 5:55 AM MOVIE THEATER USHER 03/15/2021 6:01 AM MOVIE THEATER USHER Tab Jonas MD HEMATOLOGY ORDERABLE S [facility] [employer] [facility] CLIA# [id number] [address] [place] [address] * MAGNESIUM LEVEL (03/15/2021 5:55 AM MOVIE THEATER USHER) Pathologist [facility] MAGNESIUM 2.2 1.6 - 2.4 mg/dL 03/15/2021 6:38 AM [facility] [employer] [facility] Blood Venipuncture / Unknown 03/15/2021 5:55 AM MOVIE THEATER USHER 03/15/2021 6:00 AM MOVIE THEATER USHER Janice Alanis MD CHEMISTRY ORDERAB LES [facility] [employer] [facility] CLIA# [id number] [address] [place] [address] * (ABNORMAL) RENAL FUNCTION PANEL (03/15/2021 5:55 AM MOVIE THEATER USHER) SODIUM 133(L) 136 - 145 mmol/L 03/15/2021 6:38 AM MOVIE THEATER USHER [employer] LABORATORY SERVICES - [facility] POTASSIUM 4.4 3.5 - 5.0 mmol/L 03/15/2021 6:38 AM [facility] LABORATORY SERVICES - . [facility] CHLORIDE 103 98 - 107 mmol/L 03/15/2021 6:38 AM [facility] - [facility] CO2 21(L) 22 - 29 mmol/L 03/15/2021 6:38 AM [facility] [facility] SERVICES - . [facility] CALCIUM 8.7 8.6 - 10.2 mg/dL 03/15/2021 6:38 AM MOVIE THEATER USHER [facility] - . [facility] BUN 27(H) 8 - 23 mg/dL 03/15/2021 6:38 AM MOVIE THEATER USHER [facility] - . [facility] CREATININE 0.79 0.51 - 0.95 mg/dL 03/15/2021 6:38 AM [facility] [facility] SERVICES - . [facility] GLUCOSE 129(H) 74 - 99 mg/dL 03/15/2021 6:38 AM [facility] [facility] SERVICES - . [facility] ALBUMIN 3.3(L) 3.5 - 5.2 g/dL 03/15/2021 6:38 AM [facility] [facility] SERVICES - . [facility] PHOSPHORUS 2.4(L) 2.5 - 4.5 mg/dL 03/15/2021 6:38 AM [employer] SERVICES - . [facility] GFR >60 mL/min/1.7 3 sq meter 03/15/2021 6:38 AM [employer] LABORATORY SERVICES - [facility] Comment: eGFR has not been validated for [...] mL/min/1.7 3 sq meter 03/15/2021 6:38 AM [employer] [facility]ORATORY SERVICES - . [facility] ANION GAP 9 8 - 16 mmol/L 03/15/2021 6:38 AM MOVIE THEATER USHER [facility] Blood Venipuncture / Unknown 03/15/2021 5:55 AM MOVIE THEATER USHER 03/15/2021 6:00 AM MOVIE THEATER USHER Janice Alanis MD CHEMISTRY ORDERAB LES Performing Organization Address [facility] Co de Phone Number [facility]# [id number] [address] [place] [address] * (ABNORMAL) POC GLUCOSE (03/15/2021 12:29 AM MOVIE THEATER USHER) GLUCOSE POC 156(H) 74 - 99 mg/dL 03/15/2021 12:29 AM MOVIE THEATER USHER [facility] LABORATORY [facility] SPECIMEN SOURCE, GLUCOSE POC Whole Blood 03/15/2021 12:29 AM MOVIE THEATER USHER [facility] [employer] [facility] PACK PULLER NAME POC Martha Talbert 03/15/2021 12:29 AM MOVIE THEATER USHER [facility] LABORATORY [facility] Blood, whole 03/15/2021 12:2 9 AM MOVIE THEATER USHER 03/15/2021 12:37 AM MOVIE THEATER USHER Lalit Ortiz DO POINT OF CARE TEST ING Performing Organization Address [facility]/ZIP Co de Phone Number [facility] [employer] [facility]# [id number] [address] [place] [address] * (ABNORMAL) POC GLUCOSE (03/14/2021 8:30 PM MOVIE THEATER USHER) GLUCOSE POC 140(H) 74 - 99 mg/dL 03/14/2021 8:30 PM MOVIE THEATER USHER [facility] LABORATORY [facility] SPECIMEN SOURCE, GLUCOSE POC Whole Blood 03/14/2021 8:30 PM MOVIE THEATER USHER [facility] LABORATORY SERVICES [facility] PACK PULLER NAME POC Martha Talbert 03/14/2021 8:30 PM MOVIE THEATER USHER [facility] LABORATORY [facility] Blood, whole 03/14/2021 8:30 PM MOVIE THEATER USHER 03/14/2021 9:23 PM MOVIE THEATER USHER Lalit Ortiz DO POINT OF CARE TEST ING Performing Organization Address [facility]/ZIP Co de Phone Number [employer] [facility] CLIA# [id number] [address] [place] [address] * (ABNORMAL) POC GLUCOSE (03/14/2021 5:50 PM MOVIE THEATER USHER) GLUCOSE POC 125(H) 74 - 99 mg/dL 03/14/2021 5:50 PM MOVIE THEATER USHER [facility] SERVICES - [facility] SPECIMEN SOURCE, GLUCOSE POC Whole Blood 03/14/2021 5:50 PM MOVIE THEATER USHER [facility] SERVICES - [facility] PACK PULLER NAME POC BHARATHI CALVO 03/14/2021 5:50 PM MOVIE THEATER USHER [facility] - [facility] Blood, whole 03/14/2021 5:50 PM MOVIE THEATER USHER 03/14/2021 6:04 PM MOVIE THEATER USHER Lalit Ortiz DO POINT OF CARE TEST ING Performing Organization Address [facility] Co de Phone Number [employer] [facility]# [id number] [address] [place] [address] * (ABNORMAL) POC GLUCOSE (03/14/2021 3:50 PM MOVIE THEATER USHER) GLUCOSE POC 177(H) 74 - 99 mg/dL 03/14/2021 3:50 PM MOVIE THEATER USHER [facility] - [facility] SPECIMEN SOURCE, GLUCOSE POC Whole Blood 03/14/2021 3:50 PM MOVIE THEATER USHER [facility] - [facility] COMMENT, GLU POC Notified RN/MD 03/14/2021 3:50 PM MOVIE THEATER USHER [facility] - [facility] PACK PULLER NAME POC ELIZABETH BREEN 03/14/2021 3:50 PM MOVIE THEATER USHER [facility] - [facility] Blood, whole 03/14/2021 3:50 PM MOVIE THEATER USHER 03/14/2021 4:11 PM MOVIE THEATER USHER Lalithilary Ortiz DO POINT OF CARE TEST ING [facility]# [id number] [address] [place] [address] * (ABNORMAL) POC GLUCOSE (03/14/2021 12:18 PM MOVIE THEATER USHER) GLUCOSE POC 120(H) 74 - 99 mg/dL 03/14/2021 12:18 PM MOVIE THEATER USHER [facility] LABORATORY [facility] SPECIMEN SOURCE, GLUCOSE POC Whole Blood 03/14/2021 12:18 PM MOVIE THEATER USHER [facility] LABORATORY [facility] COMMENT, GLU POC Notified RN/MD 03/14/2021 12:18 PM MOVIE THEATER USHER [facility] LABORATORY [facility] PACK PULLER NAME POC ELIZABETH BREEN 03/14/2021 12:18 PM MOVIE THEATER USHER [facility] [employer] [facility] Blood, whole 03/14/2021 12:1 8 PM MOVIE THEATER USHER 03/14/2021 12:56 PM MOVIE THEATER USHER Grover Veliz MD POINT OF CARE TESTIN G Performing Organization Address [facility]/State/ZIP Co de Phone Number [facility]# [id number] [address] [place] [address] * CT THORACIC SPINE WO CONTRAST (03/14/2021 9:34 AM MOVIE THEATER USHER) Anatomical Region Laterality Modality Spine Computed Tomogra phy 03/14/2021 9:34 AM MOVIE THEATER USHER Impressions 03/14/2021 10:36 AM MOVIE THEATER USHER IMPRESSION: 1. ??Postoperative findings of recent T2-3 [...] Technique. ?? DICTATION LOCATION: Location 9 - [facility] Narrative 03/14/2021 10:[address] OF THE THORACIC SPINE WITH REFORMATS: [...] of Iterative Reconstruction Technique. DICTATION LOCATION: Location [address] [place] [address] ORDERABLES * (ABNORMAL) POC GLUCOSE (03/14/2021 8:07 AM MOVIE THEATER USHER) Pathologist [facility] GLUCOSE POC 140(H) 74 - 99 mg/dL 03/14/2021 8:07 AM MOVIE THEATER USHER [facility] [employer] [facility] SPECIMEN SOURCE, GLUCOSE POC Whole Blood 03/14/2021 8:07 AM [facility] [employer] [facility] COMMENT, GLU POC Notified RN/MD 03/14/2021 8:07 AM [facility] [employer] [facility] PACK PULLER NAME POC ELIZABETH BREEN 03/14/2021 8:07 AM [facility] [employer] [facility] Blood, whole 03/14/2021 8:07 AM MOVIE THEATER USHER 03/14/2021 4:50 PM MOVIE THEATER USHER Grover Veliz MD POINT OF CARE TESTIN G [facility]# [id number] [address] [facility] [place] [address] * (ABNORMAL) CBC WITH DIFFERENTIAL (03/14/2021 3:38 AM MOVIE THEATER USHER) [facility] WBC 6.2 4.0 - 9.8 K/uL 03/14/2021 4:24 AM MOVIE THEATER USHER [facility] RBC 3.58(L) 3.90 - 4.90 M/uL 03/14/2021 4:24 AM [facility] HEMOGLOBIN 10.6(L) 11.8 - 14.8 g/dL 03/14/2021 4:24 AM MOVIE THEATER USHER [facility] HEMATOCRIT 33.8(L) 35.5 - 44.0 % 03/14/2021 4:24 AM MOVIE THEATER USHER [employer] LABORATORY SERVICES - [facility] MCV 94.4 82.0 - 99.0 fL 03/14/2021 4:24 AM MOVIE THEATER USHER [employer] LABORATORY SERVICES - [facility] MCH 29.6 27.2 - 32.6 pg 03/14/2021 4:24 AM MOVIE THEATER USHER [employer] LABORATORY SERVICES - [facility] MCHC 31.4(L) 31.5 - 35.5 g/dL 03/14/2021 4:24 AM MOVIE THEATER USHER [employer]ORATORY SERVICES - [facility] RDW 12.4 11.5 - 14.5 % 03/14/2021 4:24 AM MOVIE THEATER USHER [employer] [facility]ATORY SERVICES - [facility] RDW-STDEV 43.4 37.1 - 48.7 fL 03/14/2021 4:24 AM MOVIE THEATER USHER [employer] LABORATORY SERVICES - [facility] PLATELETS 155 140 - 350 K/uL 03/14/2021 4:24 AM MOVIE THEATER USHER [employer] [facility]ATORY SERVICES - [facility] MPV 10.6 9.3 - 12.4 fL 03/14/2021 4:24 AM MOVIE THEATER USHER [employer] [facility]ATORY SERVICES - [facility] NEUTROPHILS 90 % 03/14/2021 4:24 AM MOVIE THEATER USHER [employer] SERVICES - [facility] LYMPHOCYTES 8 % 03/14/2021 4:24 AM MOVIE THEATER USHER [employer] SERVICES - [facility] MONOCYTES 2 % 03/14/2021 4:24 AM MOVIE THEATER USHER [employer] [facility] SERVICES - [facility] EOSINOPHILS 0 % 03/14/2021 4:24 AM MOVIE THEATER USHER [employer] [facility]ATORY SERVICES - [facility] BASOPHILS 0 % 03/14/2021 4:24 AM MOVIE THEATER USHER [employer] [facility]ATORY SERVICES - [facility] IMMATURE GRANULOCYTES 0 % 03/14/2021 4:24 AM MOVIE THEATER USHER [employer] [facility]ATORY SERVICES - [facility] NEUTROPHIL ABSOLUTE 5.58 1.90 - 7.00 K/uL 03/14/2021 4:24 AM MOVIE THEATER USHER [employer] [facility]ATORY SERVICES - [facility] LYMPHOCYTE ABSOLUTE 0.50(L) 0.70 - 4.50 K/uL 03/14/2021 4:24 AM MOVIE THEATER USHER [employer] LABORATORY SERVICES - [facility] MONOCYTE ABSOLUTE 0.11 0.10 - 1.30 K/uL 03/14/2021 4:24 AM MOVIE THEATER USHER [employer] LABORATORY SERVICES - [facility] EOSINOPHIL ABSOLUTE 0.00 0.00 - 0.70 K/uL 03/14/2021 4:24 AM [facility] LABORATORY SERVICES - [facility] BASOPHILS ABSOLUTE 0.00 0.00 - 0.20 K/uL 03/14/2021 4:24 AM [facility] LABORATORY SERVICES - [facility] IMMATURE GRANULOCYTES ABSOLUTE 0.02 0.00 - 0.03 K/uL 03/14/2021 4:24 AM [facility] LABORATORY [facility] Blood Venipuncture / Unknown 03/14/2021 3:38 AM MOVIE THEATER USHER 03/14/2021 4:06 AM MOVIE THEATER USHER Janice Alanis MD HEMATOLOGY ORDERA BLES [facility] CLIA# [id number] [address] [place] [address] * (ABNORMAL) POC GLUCOSE (03/14/2021 3:28 AM MOVIE THEATER USHER) GLUCOSE POC 136(H) 74 - 99 mg/dL 03/14/2021 3:28 AM [facility] LABORATORY [facility] SPECIMEN SOURCE, GLUCOSE POC Whole Blood 03/14/2021 3:28 AM [facility] LABORATORY [facility] PACK PULLER NAME POC IRENA CONTEH 03/14/2021 3:28 AM [facility] LABORATORY [facility] Blood, whole 03/14/2021 3:28 AM MOVIE THEATER USHER 03/14/2021 3:54 AM MOVIE THEATER USHER Grover Veliz MD POINT OF CARE TESTIN G [facility] [employer] [facility] CLIA# [id number] [address] [address] * (ABNORMAL) PROTIME-INR (03/14/2021 2:03 AM MOVIE THEATER USHER) PROTIME 15.9(H) 12.7 - 15.1 Seconds 03/14/2021 3:15 AM [facility] LABORATORY SERVICES [facility] INR 1.2(H) 0.9 - 1.1 03/14/2021 3:15 AM MOVIE THEATER USHER [facility] LABORATORY [facility] Blood Venipuncture / Unknown 03/14/2021 2:03 AM MOVIE THEATER USHER 03/14/2021 2:30 AM MOVIE THEATER USHER Narrative [facility] LABORATORY [facility] - 03/14/2021 3:15 AM MOVIE THEATER USHER INR Therapeutic Range: Adult: ?? 2.0 - 3.0 for pulmonary embolism or prophylaxis against venous ?thrombosis or systemic embolization. 2.0 - 3.0 for patients with tissue heart valves. 2.5 - 3.5 for patients with mechanical heart valves or post MA. Pediatric ??(12 years and under): 1.5 - 3.0 Although the target range in children is not well established, ?INR values of 1.5 - 3.0 are recommended for most patients. ?Higher values have been used in children with prosthetic ?cardiac valves and hereditary clotting disorders. (<3 days) therapeutic ranges have not been established. Jeanne Hemphill MD HEMATOLOGY ORDERA BLES Performing Organization Address City/[facility]/ZIP Co de Phone Number [facility]# [id number] [address] [place] [address] * PHOSPHORUS (03/14/2021 2:03 AM MOVIE THEATER USHER) PHOSPHORUS 3.3 2.5 - 4.5 mg/dL 03/14/2021 3:34 AM MOVIE THEATER USHER [facility] LABORATORY [facility] Blood Venipuncture / Unknown 03/14/2021 2:03 AM MOVIE THEATER USHER 03/14/2021 2:30 AM MOVIE THEATER USHER Jeanne Hemphill MD CHEMISTRY ORDERAB LES Performing Organization Address City/[facility]/ZIP Co de Phone Number [facility] CLIA# [id number] [address] [place] [address] * MAGNESIUM LEVEL (03/14/2021 2:03 AM MOVIE THEATER USHER) MAGNESIUM 1.9 1.6 - 2.4 mg/dL 03/14/2021 3:34 AM [facility] [employer] SERVICES - [facility] Blood Venipuncture / Unknown 03/14/2021 2:03 AM MOVIE THEATER USHER 03/14/2021 2:30 AM MOVIE THEATER USHER Jeanne Hemphill MD CHEMISTRY ORDERAB LES [employer] SERVICES [facility]# [id number] [address] [facility] [place] [address] * (ABNORMAL) COMPREHENSIVE METABOLIC PANEL (03/14/2021 2:03 AM MOVIE THEATER USHER) SODIUM 138 136 - 145 mmol/L 03/14/2021 3:34 AM [facility] [employer] SERVICES - . [facility] POTASSIUM 4.2 3.5 - 5.0 mmol/L 03/14/2021 3:34 AM [facility] [employer] SERVICES - [facility] CHLORIDE 104 98 - 107 mmol/L 03/14/2021 3:34 AM [facility] [employer] SERVICES - [facility] CO2 21(L) 22 - 29 mmol/L 03/14/2021 3:34 AM [facility] [employer] SERVICES - [facility] CALCIUM 8.6 8.6 - 10.2 mg/dL 03/14/2021 3:34 AM [facility] [employer] LABORATORY SERVICES - [facility] BUN 25(H) 8 - 23 mg/dL 03/14/2021 3:34 AM [facility] [employer] SERVICES - [facility] CREATININE 0.86 0.51 - 0.95 mg/dL 03/14/2021 3:34 AM [facility] [employer] SERVICES - [facility] GLUCOSE 145(H) 74 - 99 mg/dL 03/14/2021 3:34 AM [facility] [employer] SERVICES - . [facility] TOTAL PROTEIN 6.2(L) 6.7 - 8.6 g/dL 03/14/2021 3:34 AM [facility] [employer] SERVICES - [facility] ALBUMIN 3.7 3.5 - 5.2 g/dL 03/14/2021 3:34 AM [facility] LABORATORY [facility] BILIRUBIN TOTAL <0.2(L) 0.2 - 1.1 mg/dL 03/14/2021 3:34 AM [facility] ALKALINE PHOSPHATASE 67 35 - 104 U/L 03/14/2021 3:34 AM [facility] LABORATORY [facility] AST 19 <33 U/L 03/14/2021 3:34 AM [facility] ALT 13 <34 U/L 03/14/2021 3:34 AM [facility] GFR >60 mL/min/1.7 3 sq meter 03/14/2021 3:34 AM [facility] [employer] [facility] Comment: eGFR has not been validated [...] mL/min/1.7 3 sq meter 03/14/2021 3:34 AM [facility] LABORATORY [facility] ANION GAP 13 8 - 16 mmol/L 03/14/2021 3:34 AM [facility] [employer] [facility] Blood Venipuncture / Unknown 03/14/2021 2:03 AM MOVIE THEATER USHER 03/14/2021 2:30 AM [facility] Narrative [facility] LABORATORY [facility] - 03/14/2021 3:34 AM [facility] Samples containing indocyanine green cause interferences on Total and/or Direct Bilirubin and must not be measured. Jeanne Hemphill MD CHEMISTRY ORDERAB LES [facility] [employer] [facility] CLIA# [id number] [address] [facility] [place] [address] * (ABNORMAL) POC GLUCOSE (03/14/2021 1:46 AM MOVIE THEATER USHER) GLUCOSE POC 120(H) 74 - 99 mg/dL 03/14/2021 1:46 AM MOVIE THEATER USHER [facility] SPECIMEN SOURCE, GLUCOSE POC Whole Blood 03/14/2021 1:46 AM MOVIE THEATER USHER [facility] PACK PULLER NAME POC ELIAN ERWIN 03/14/2021 1:46 AM MOVIE THEATER USHER [facility] Blood, whole 03/14/2021 1:46 AM MOVIE THEATER USHER 03/14/2021 1:53 AM MOVIE THEATER USHER Katherin Larios MD POINT OF CARE TESTIN G [facility] CLIA# [id number] [address] [place] [address] * MRI CERV THORACIC WO CONT (03/13/2021 10:47 PM MOVIE THEATER USHER) Anatomical Region Laterality Modality Spine Magnetic Resonan ce 03/13/2021 10:4 7 PM MOVIE THEATER USHER Impressions 03/14/2021 11:47 AM MOVIE THEATER USHER IMPRESSION: ?? 1. ??Interval C4-C6 ACDF and posterior T2-T3 decompression changes are new since MRI 02/17/2021 without epidural hematoma or abnormal postoperative fluid collection. 2. ??Slightly decreased craniocaudal extent of focal spinal cord signal abnormality at the level of the T2-T3 disc osteophyte. 3. ??Multilevel degenerative changes with spinal canal and neural foraminal stenoses as detailed above. DICTATION LOCATION: Location 1 - [facility] Narrative 03/14/2021 11:47 AM MOVIE THEATER USHER MRI CERVICAL AND THORACIC SPINE WITHOUT IV [...] foraminal stenoses as detailed above. DICTATION LOCATION: [address] Katherin Larios MD MR ORDERABLES * XR OR SPINAL PROCEDURE OARM (03/13/2021 6:08 PM MOVIE THEATER USHER) Anatomical Region Laterality Modality Spine Computed Radiogr aphy 03/13/2021 6:09 PM MOVIE THEATER USHER Impressions 03/13/2021 9:34 PM MOVIE THEATER USHER IMPRESSION: Intraoperative imaging as above. DICTATION LOCATION: [address] Narrative 03/13/2021 9:34 PM MOVIE THEATER USHER XR OR SPINAL PROCEDURE OARM DATE: 03/13/2021 [...] mGy. O-arm Spin: 387 Procedure Note Gabo Hernandez DO - 03/13/2021 XR OR SPINAL PROCEDURE [...] IMPRESSION: Intraoperative imaging as above. DICTATION LOCATION: [address] Katherin Larios MD DIAGNOSTIC IMAGING O RDERABLES * XR CERVICAL SPINE 1 VW (03/13/2021 4:22 PM MOVIE THEATER USHER) Anatomical Region Laterality Modality Spine Computed Radiogr aphy 03/13/2021 4:22 PM MOVIE THEATER USHER Impressions 03/13/2021 8:52 PM MOVIE THEATER USHER IMPRESSION: 1. ??Intraoperative radiograph as above. DICTATION LOCATION: Location 1 - [facility] Narrative 03/13/2021 8:52 PM MOVIE THEATER USHER XR CERVICAL SPINE 1 VW DATE: 03/13/2021 4:22 PM CLINICAL INDICATION: Anterior cervical discectomy and fusion at C4-C5 and C5-C6, T2-T3 laminectomy. COMPARISON: Intraoperative imaging performed the same day. TECHNIQUE/FINDINGS: ?? Crosstable lateral intraoperative radiograph demonstrates surgical instrumentation projecting over the C4-C5 disc space. Support tubes are redemonstrated. Visualized cervical alignment is preserved. Procedure Note Gabo Hernandez DO - 03/13/2021 [...] Intraoperative radiograph as above. DICTATION LOCATION: Location [address] [place] [address] Katherin Larios MD DIAGNOSTIC IMAGING O RDERABLES * POC LACTIC ACID (03/13/2021 2:58 PM MOVIE THEATER USHER) LACTIC ACID POC 1.8 <=2.0 mmol/L 03/13/2021 2:58 PM MOVIE THEATER USHER [facility] LABORATORY [facility] SPECIMEN SOURCE, GASES POC Arterial 03/13/2021 2:58 PM MOVIE THEATER USHER [facility] LABORATORY [facility] COMMENT, GASES POC RN/MD NOTIFIED 03/13/2021 2:58 PM MOVIE THEATER USHER [facility] LABORATORY [facility] PACK PULLER NAME POC SHAN ANDERSON 03/13/2021 2:58 PM MOVIE THEATER USHER [facility] LABORATORY [facility] Blood 03/13/2021 2:58 PM MOVIE THEATER USHER 03/13/2021 3:00 PM MOVIE THEATER USHER Katherin Larios MD POINT OF CARE TESTIN G [facility] LABORATORY SERVICES - [facility] CLIA# [id number] [address] [place] [address] * (ABNORMAL) BLOOD GAS,(INCL. H+H, LYTES, GLUC) (03/13/2021 2:58 PM MOVIE THEATER USHER) PH BLOOD POC 7.31(L) 7.35 - 7.45 03/13/2021 2:58 PM MOVIE THEATER USHER [facility] LABORATORY SERVICES - [facility] PCO2 POC 49(H) 35 - 48 mm Hg 03/13/2021 2:58 PM MOVIE THEATER USHER [facility] LABORATORY SERVICES - . [facility] PO2 POC 230(H) 83 - 108 mm Hg 03/13/2021 2:58 PM [employer] [facility] TCO2 (CALC) POC 26(H) 19 - 24 mmol/L 03/13/2021 2:58 PM [facility] HCO3 (CALC) POC 25 22 - 26 mmol/L 03/13/2021 2:58 PM [facility] O2 SATURATION POC 100(H) 94 - 98 % 03/13/2021 2:58 PM [facility] - . [facility] BASE EXCESS POC -2 -2 - 3 mmol/L 03/13/2021 2:58 PM [facility] - . [facility] HEMOGLOBIN POC 11.5(L) 11.8 - 14.8 g/dL 03/13/2021 2:58 PM [facility] - . [facility] GLUCOSE POC 129(H) 74 - 99 mg/dL 03/13/2021 2:58 PM [facility]. [facility] SODIUM POC 137 135 - 145 mmol/L 03/13/2021 2:58 PM [facility] - . [facility] POTASSIUM POC 3.8 3.5 - 4.9 mmol/L 03/13/2021 2:58 PM [facility] - . [facility] CALCIUM IONIZED POC 4.8 4.8 - 5.2 mg/dL 03/13/2021 2:58 PM [facility] . [facility] PH TEMP CORRECT 7.31(L) 7.35 - 7.45 03/13/20 2:58 PM [employer] [facility] PCO2 TEMP CORRECT 49(H) 35 - 48 mm Hg 03/13/2021 2:58 PM [employer] [facility] PO2 TEMP CORRECT 230(H) 83 - 108 mm Hg 03/13/2021 2:58 PM [employer] [facility] SPECIMEN SOURCE, GASES POC Arterial 03/13/2021 2:58 PM [employer] [facility] PATIENT'S TEMPERATURE POC 37.0 degrees 03/13/2021 2:58 PM [employer] [facility] COMMENT, GASES POC RN/MD NOTIFIED 03/13/2021 2:58 PM [employer] [facility] PACK PULLER NAME POC SHAN ANDERSON 03/13/2021 2:58 PM [employer] [facility] Blood, arterial 03/13/2021 2 :58 PM [employer] 03/13/2021 3:00 PM [employer] Katherin Larios MD ABG ORDERABLES [facility]# [id number] [facility] [place] [id number] * XR CERVICAL SPINE 1 VW (03/13/2021 2:12 PM [employer]) Anatomical Region Laterality Modality Spine Computed Radiogr aphy 03/13/2021 2:13 PM [employer] Impressions 03/13/2021 5:45 PM [employer] IMPRESSION: 1. ??Intraoperative radiograph as above. DICTATION LOCATION: Location 1 - [facility] Center Narrative 03/13/2021 5:45 PM MOVIE THEATER USHER XR CERVICAL SPINE 1 VW DATE: 03/13/2021 2:12 PM CLINICAL INDICATION: Cervical spine surgery. COMPARISON: No relevant studies available. TECHNIQUE/FINDINGS: ?? 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 Extensive overlapping osseous structures are present limiting evaluation. Endotracheal and enteric tubes are partially visualized. Procedure Note Gabo Hernandez, DO - 03/13/2021 XR CERVICAL SPINE 1 [...] as above. DICTATION LOCATION: Location 1 - [facility] Katherin Larios MD DIAGNOSTIC IMAGING O RDERABLES * VERIFICATION BLOOD GROUP (03/13/2021 11:55 AM MOVIE THEATER USHER) ABO GROUP O 03/13/2021 1:24 PM MOVIE THEATER USHER [facility] RH (D) TYPE Positive 03/13/2021 1:24 PM MOVIE THEATER USHER [facility] Blood Venipuncture / Unknown 03/13/2021 11:55 AM MOVIE THEATER USHER 03/13/2021 12:17 PM MOVIE THEATER USHER Naila Brand MD BLOOD BANK ORD ERABLES [email or web address] CLIA# [id number] [address] [facility] [address] * POC GLUCOSE (03/13/2021 11:12 AM MOVIE THEATER USHER) GLUCOSE POC 94 74 - 99 mg/dL 03/13/2021 11:12 AM [facility] SPECIMEN SOURCE, GLUCOSE POC Whole Blood 03/13/2021 11:12 AM MOVIE THEATER USHER [facility] PACK PULLER NAME POC LEE KERN 03/13/2021 11:12 AM [facility] Blood, whole 03/13/2021 11:1 2 AM MOVIE THEATER USHER 03/13/2021 11:42 AM MOVIE THEATER USHER Katherin Larios MD POINT OF CARE TESTIN G [facility] [employer] [facility] CLIA# [id number] [address] [place] [id number] documented in this encounter Visit Diagnoses Diagnosis Encounter for blood typing- Primary Cervical spondylosis with radiculopathy Cervical spondylosis with myelopathy documented in this encounter Administered Medications Inactive Administered Medications - up to 3 most recent administrations Medication Order MAR Action Action Date Dose Rate Site acetaminophen (TYLENOL) tablet 650 mg 650 mg, Oral, PRE-PROCEDURE ONCE, 1 dose, Starting on Jerilyn 03/13/21 at 1045, Until Wed03/13/21 at 1102, Routine, Pre-op Given 03/13/2021 11:02 AM MOVIE THEATER USHER 650 mg acetaminophen (TYLENOL) tablet 650 mg 650 mg, Oral, EVERY 6 HOURS PRN, Starting on Wed03/14/21 at 0140, Until Jerilyn 03/27/21 at 2245, Other (See Comment), See admin instructions, Routine Given 03/27/2021 5:00 AM MOVIE THEATER USHER 650 mg Given 03/26/2021 8:27 AM MOVIE THEATER USHER 650 mg Given 03/25/2021 10:53 PM MOVIE THEATER USHER 650 mg bisacodyL (DULCOLAX) rectal suppository 10 mg 10 mg, Rectal, DAILY, First dose (after last modification) on 03/22/21 at 0930, Until Discontinued, Routine Given 03/22/2021 6:46 PM MOVIE THEATER USHER 10 mg bisacodyL (DULCOLAX) rectal suppository 10 mg 10 mg, Rectal, DAILY PRN, Starting on 03/23/21 at 0815, Until Jerilyn 03/27/21 at 2245, Constipation, Routine Given 03/25/2021 10:22 AM MOVIE THEATER USHER 10 mg ceFAZolin (ANCEF) 2,000 mg in dextrose (iso-osmotic) 100 mL IVPB (PREMIX) 2,000 mg, IV, POST-PROCEDURE Q 8 HOURS, 2 doses, First dose on Jerliyn 03/13/21 at 2200, Last dose on Wed03/14/21 at 0600, Routine, Post-op - Floor, Antibiotic Indication: Surgical prophylaxis New Bag 03/14/2021 6:50 AM MOVIE THEATER USHER 2,000 mg 200 mL/hr New Bag 03/13/2021 11:14 PM MOVIE THEATER USHER 2,000 mg 200 mL/hr cyclobenzaprine (FLEXERIL) tablet 10 mg 10 mg, Oral, THREE TIMES DAILY PRN, Starting on Wed03/24/21 at 0722, Until Wed03/25/21 at 0933, Spasm, Routine Given 03/24/2021 12:26 PM MOVIE THEATER USHER 10 mg cyclobenzaprine (FLEXERIL) tablet 5 mg 5 mg, Oral, THREE TIMES DAILY PRN, Starting on Wed03/25/21 at 0933, Until Wed03/26/21 at 0844, Spasm, Routine Given 03/25/2021 6:29 PM MOVIE THEATER USHER 5 mg dexamethasone (DECADRON) injection 10 mg 10 mg, IV, EVERY 6 HOURS, 4 doses, First dose on Wed03/14/21 at 0000, Last dose on Wed03/14/21 at 1800, Routine Given 03/14/2021 5:55 PM MOVIE THEATER USHER 10 mg Given 03/14/2021 11:34 AM MOVIE THEATER USHER 10 mg Given 03/13/2021 11:17 PM MOVIE THEATER USHER 10 mg dexamethasone (DECADRON) injection 10 mg 10 mg, IV, EVERY 6 HOURS, First dose on Wed03/15/21 at 1800, Until Discontinued, Routine Given 03/16/2021 8:05 AM MOVIE THEATER USHER 10 mg Given 03/16/2021 3:22 AM MOVIE THEATER USHER 10 mg Given 03/15/2021 7:02 PM MOVIE THEATER USHER 10 mg dexamethasone (DECADRON) injection 2 mg 2 mg, IV, EVERY 12 HOURS (BlD), 2 doses, First dose (after last modification) on Wed03/21/21 at 0900, Last dose on Wed03/21/21 at 2100, Routine Given 03/21/2021 8:23 PM MOVIE THEATER USHER 2 mg Given 03/21/2021 9:48 AM MOVIE THEATER USHER 2 mg dexamethasone (DECADRON) injection 4 mg 4 mg, IV, EVERY 12 HOURS (BlD), First dose (after last modification) on Wed03/19/21 at 2100, Until Discontinued, Routine Given 03/20/2021 8:17 PM MOVIE THEATER USHER 4 mg Given 03/20/2021 9:26 AM MOVIE THEATER USHER 4 mg Given 03/19/2021 8:41 PM MOVIE THEATER USHER 4 mg dexamethasone (DECADRON) injection 8 mg 8 mg, IV, EVERY 6 HOURS, First dose (after last modification) on Wed03/16/21 at 1200, Until Discontinued, Routine Given 03/19/2021 5:22 AM MOVIE THEATER USHER 8 mg Given 03/18/2021 11:14 PM MOVIE THEATER USHER 8 mg Given 03/18/2021 5:39 PM MOVIE THEATER USHER 8 mg DEXAMETHASONE SODIUM PHOSPHATE 4 MG/ML INJECTION SOLUTION (CABINET OVERRIDE) 1 dose, Starting on Jerilyn 03/20/21 at 2015, Until Jerilyn 03/20/21 at 2017, David Robb: cabinet override dextrose 5% - sodium chloride 0.9% infusion IV, at 40 mL/hr, SEE ADMIN INSTRUCTIONS, Starting on Wed03/14/21 at 1333, Until Jerilyn 03/27/21 at 2245, Routine dextrose 50% (D50) syringe 12.5 Gram 12.5 Gram, IV, SEE ADMIN INSTRUCTIONS, Starting on Wed03/14/21 at 1333, Until Jerilyn 03/27/21 at 2245, Routine dextrose 50% (D50) syringe 25 Gram 25 Gram, IV, SEE ADMIN INSTRUCTIONS, Starting on Wed03/14/21 at 1333, Until Jerilyn 03/27/21 at 2245, Routine diazePAM (VALIUM) injection 1 mg 1 mg, IV, EVERY 15 MINUTES PRN, 2 doses, Starting on 03/17/21 at 1232, Until Wed03/17/21 at 1430, myelogram, Routine Given 03/17/2021 2:30 PM MOVIE THEATER USHER 1 mg Given 03/17/2021 2:13 PM MOVIE THEATER USHER 1 mg docusate sodium (COLACE) capsule 100 mg 100 mg, Oral, TWO TIMES DAILY, First dose on Jerilyn 03/13/21 at 2100, Until Discontinued, Routine Given 03/27/2021 9:27 AM MOVIE THEATER USHER 100 mg Given 03/26/2021 8:15 PM MOVIE THEATER USHER 100 mg Given 03/26/2021 8:19 AM MOVIE THEATER USHER 100 mg enoxaparin (LOVENOX) injection 40 mg 40 mg, subCUT, EVERY 24 HOURS, First dose on Wed03/16/21 at 1000, Until Discontinued, Routine, Indication: Prophylaxis of VTE Given 03/16/2021 12:31 PM MOVIE THEATER USHER 40 mg Abdominal Tissue enoxaparin (LOVENOX) injection 40 mg 40 mg, subCUT, EVERY 24 HOURS, First dose (after last modification) on Wed03/18/21 at 2100, Until Discontinued, Routine, Indication: Prophylaxis of VTE Given 03/27/2021 8:09 PM MOVIE THEATER USHER 40 mg Abdomen, Left Lower Quadrant Given 03/26/2021 8:16 PM MOVIE THEATER USHER 40 mg Ab domen, Left Lower Quadrant Given 03/25/2021 8:19 PM MOVIE THEATER USHER 40 mg Ab domen, Right Lower Quadrant fentaNYL PF (SUBLIMAZE) 50 mcg/mL injection 25 mcg 25 mcg, IV, POST-PROCEDURE Q 3 MINUTES PRN, 4 doses, Starting on Jerilyn 03/13/21 at 1316, Until Jerilyn 03/13/21 at 1826, Pain, Break-Through, Routine, PACU Given 03/13/2021 5:44 PM MOVIE THEATER USHER 25 mcg fludrocortisone (FLORINEF) tablet 0.1 mg 0.1 mg, Oral, DAILY, First dose on Wed03/21/21 at 1700, Until Discontinued, Routine Given 03/22/2021 10:12 AM MOVIE THEATER USHER 0.1 mg Given 03/21/2021 5:34 PM MOVIE THEATER USHER 0.1 mg fludrocortisone (FLORINEF) tablet 0.2 mg 0.2 mg, Oral, DAILY, First dose (after last modification) on Wed03/23/21 at 1000, Until Discontinued, Routine Given 03/27/2021 9:28 AM MOVIE THEATER USHER 0.2 mg Given 03/26/2021 10:20 AM MOVIE THEATER USHER 0.2 mg Given 03/25/2021 10:20 AM MOVIE THEATER USHER 0.2 mg fluticasone propionate (FLONASE) 50 mcg/spray nasal inhaler 2 Bear 2 Bear, Both Nostrils, DAILY, First dose on Wed03/14/21 at 0900, Until Discontinued, Routine, Previous Med: fluticasone propionate (FLONASE) 50 mcg/spray Bear, Suspension nasal inhaler - Orig Sig - Administer 2 Sprays in each nostril daily. Given 03/27/2021 9:41 A M MOVIE THEATER USHER 2 Sprays Given 03/26/2021 8:19 AM MOVIE THEATER USHER 2 Sprays Given 03/25/2021 10:22 AM MOVIE THEATER USHER 2 Sprays gabapentin (NEURONTIN) capsule 100 mg 100 mg, Oral, EVERY 8 HOURS, First dose on 03/16/21 at 1300, Until Discontinued, Routine Given 03/17/2021 4:26 AM MOVIE THEATER USHER 100 mg Given 03/16/2021 8:40 PM MOVIE THEATER USHER 100 mg Given 03/16/2021 12:30 PM MOVIE THEATER USHER 100 mg gabapentin (NEURONTIN) capsule 200 mg 200 mg, Oral, EVERY 8 HOURS, First dose (after last modification) on 03/17/21 at 1300, Until Discontinued, Routine Given 03/27/2021 8:08 PM MOVIE THEATER USHER 200 mg Given 03/27/2021 2:44 PM MOVIE THEATER USHER 200 mg Given 03/27/2021 5:02 AM MOVIE THEATER USHER 200 mg glucagon HCL 1 mg/mL injection 1 mg 1 mg, IM, SEE ADMIN INSTRUCTIONS, Starting on Wed03/14/21 at 1333, Until Jerilyn 03/27/21 at 2245, Routine hydrALAZINE (APRESOLINE) 20 mg/mL injection 10 mg 10 mg, IV, ONE TIME ONLY, 1 dose, On 03/15/21 at 1945, Routine Given 03/15/2021 8:00 PM MOVIE THEATER USHER 10 mg HYDROmorphone (DILAUDID) 2 mg/mL injection 0.2 mg 0.2 mg, IV, POST-PROCEDURE Q 5 MINUTES PRN, 5 doses, Starting on Jerilyn 03/13/21 at 1316, Until Jerilyn 03/13/21 at 1826, Pain, Routine, PACU Given 03/13/2021 5:44 PM MOVIE THEATER USHER 0.2 mg HYDROmorphone (DILAUDID) 2 mg/mL injection 0.3 mg 0.3 mg, IV, EVERY 2 HOURS PRN, Starting on Jerilyn 03/13/21 at 1827, Until 03/22/21 at 0920, Pain (See admin instructions), Routine, Post-op - Floor Given 03/17/2021 3:03 PM MOVIE THEATER USHER 0.3 mg Given 03/16/2021 6:34 PM MOVIE THEATER USHER 0.3 mg Given 03/15/2021 12:25 AM MOVIE THEATER USHER 0.3 mg HYPERTONIC sodium chloride 2% infusion IV, at 50 mL/hr, ONE TIME ONLY, 1 dose, On 03/15/21 at 0930, Routine Rate Verify 03/15/2021 6:00 PM MOVIE THEATER USHER 50 mL/hr Rate Verify 03/15/2021 4:00 PM MOVIE THEATER USHER 50 mL/hr New Bag 03/15/2021 2:50 PM MOVIE THEATER USHER 50 mL/hr HYPERTONIC sodium chloride 2% infusion IV, at 50 mL/hr, ONE TIME ONLY, 1 dose, On 03/16/21 at 0230, Routine Rate Change 03/16/2021 2:31 AM MOVIE THEATER USHER 50 mL/hr HYPERTONIC sodium chloride 2% infusion IV, at 75 mL/hr, CONTINUOUS, Starting on 03/16/21 at 1900, Until Wed03/18/21 at 0916, Routine, On hold since Wed03/17/2021 at 0206 until manually unheld Rate Verify 03/17/2021 1:00 AM MOVIE THEATER USHER 75 mL/hr Rate Verify 03/17/2021 12:00 AM MOVIE THEATER USHER 75 mL/hr Rate Verify 03/16/2021 11:00 PM MOVIE THEATER USHER 75 mL/hr insulin lispro (HumaLOG) injection 0-4 Units 0-4 Units, subCUT, THREE TIMES DAILY WITH MEALS, First dose on Wed03/14/21 at 1700, Until Discontinued, Routine Given 03/17/2021 11:16 AM MOVIE THEATER USHER 1 Units Abdominal Tissue Iopamidol (ISOVUE-M 200) 41 % intrathecal injection 20 mL 20 mL, IntraTHEcal, INTRA-PROCEDURE ONCE, 1 dose, Starting on Wed03/17/21 at 1314, Until Wed03/17/21 at 1519, Routine Contrast Given 03/17/2021 3:19 PM MOVIE THEATER USHER 20 mL lactated ringers infusion IV, at 150 mL/hr, PRE-PROCEDURE CONTINUOUS, Starting on Jerilyn 03/13/21 at 1045, Until Jerilyn 03/13/21 at 1655, Routine Restarted 03/13/2021 4:43 PM MOVIE THEATER USHER New Bag 03/13/2021 3:46 PM MOVIE THEATER USHER 1000 mL/hr Rate Change 03/13/2021 3:45 PM MOVIE THEATER USHER 1000 mL/hr lactulose (ENULOSE) 10 gram/15 mL oral solution 30 mL 30 mL, Oral, ONE TIME ONLY, 1 dose, On Jerilyn 03/20/21 at 1300, Routine Given 03/20/2021 3:55 PM MOVIE THEATER USHER 30 mL lactulose (ENULOSE) 10 gram/15 mL oral solution 45 mL 45 mL, Oral, ONE TIME ONLY, 1 dose, On Wed03/21/21 at 1100, Routine Given 03/21/2021 1:30 PM MOVIE THEATER USHER 45 mL lactulose (ENULOSE) 10 gram/15 mL oral solution 45 mL 45 mL, Oral, ONE TIME ONLY, 1 dose, On 03/22/21 at 1000, Routine Given 03/22/2021 6:47 PM MOVIE THEATER USHER 45 mL LIDOCAINE (PF) 10 MG/ML (1 %) INJECTION SOLUTION (CABINET OVERRIDE) 1 dose, Starting on Wed03/17/21 at 1631, Until Wed03/17/21 at 1704, Roseanna Norton: cabinet override Given 03/17/2021 5:04 PM MOVIE THEATER USHER 1 mL lidocaine PF 2% (XYLOCAINE MPF) injection 0.3 mL 0.3 mL, Infiltration, ONE TIME ONLY, 1 dose, On Jerilyn 03/13/21 at 1045, Routine Given 03/13/2021 12:08 PM MOVIE THEATER USHER 0.3 mL Arm, Left midodrine (PROAMATINE) tablet 10 mg 10 mg, Oral, EVERY 8 HOURS, First dose on Wed03/14/21 at 0400, Until Discontinued, Routine Given 03/14/2021 5:12 AM MOVIE THEATER USHER 10 mg midodrine (PROAMATINE) tablet 10 mg 10 mg, Oral, THREE TIMES DAILY, First dose on 03/15/21 at 1300, Until Discontinued, Routine Given 03/19/2021 9:24 AM MOVIE THEATER USHER 10 mg Given 03/18/2021 5:39 PM MOVIE THEATER USHER 10 mg Given 03/18/2021 2:24 PM MOVIE THEATER USHER 10 mg midodrine (PROAMATINE) tablet 10 mg 10 mg, Oral, EVERY 8 HOURS, First dose (after last modification) on Wed03/19/21 at 1300, Until Discontinued, Routine Given 03/22/2021 5:50 AM MOVIE THEATER USHER 10 mg Given 03/21/2021 8:16 PM MOVIE THEATER USHER 10 mg Given 03/21/2021 1:31 PM MOVIE THEATER USHER 10 mg midodrine (PROAMATINE) tablet 15 mg 15 mg, Oral, EVERY 8 HOURS, First dose (after last modification) on 03/22/21 at 1300, Until Discontinued, Routine Given 03/27/2021 8:07 PM MOVIE THEATER USHER 15 mg Given 03/27/2021 2:44 PM MOVIE THEATER USHER 15 mg Given 03/27/2021 5:00 AM MOVIE THEATER USHER 15 mg norepinephrine bitartrate-NS 8 mg/250 mL (32 mcg/mL) infusion 0-0.2 mcg/kg/min ? 83.9 kg (0-31.4625 mL/hr, rounded to 0-31.46 mL/hr), IV, TITRATE, Starting on Wed03/14/21 at 0530, Until Wed03/17/21 at 0715, Routine, Should this infusion be titrated? Yes, Is this a CABG patient? No, Initial infusion dose? 0.02 mcg/kg/min, Titration Dose Increment? 0.02 mcg/kg/min, Titration Interval? 10 minutes, Goal Type? Other Goal, Goal: [id number] Restarted 03/16/2021 5:24 AM MOVIE THEATER USHER 0.02 mcg/kg/min 3.15 mL/hr Rate Change 03/15/2021 2:00 PM MOVIE THEATER USHER 0.02 mcg/kg/min 3.15 mL /hr Rate Verify 03/15/2021 12:00 PM MOVIE THEATER USHER 0.01 mcg/kg/min 1.57 m L/hr norepinephrine bitartrate-NS 8 mg/250 mL (32 mcg/mL) infusion 0-0.2 mcg/kg/min ? 83.9 kg (0-31.4625 mL/hr, rounded to 0-31.46 mL/hr), IV, TITRATE, Starting on Wed03/17/21 at 1100, Until Wed03/21/21 at 0931, Routine, Should this infusion be titrated? Yes, Is this a CABG patient? No, Initial infusion dose? 0.05 mcg/kg/min, Titration Dose Increment? 0.05 mcg/kg/min, Titration Interval? 10 minutes, Goal Type? MAP Goal, MAP Goal? Other (see comments), Goal: >80 Rate Change 03/21/2021 7:00 AM MOVIE THEATER USHER 0.01 mcg/kg/min 1.57 mL/hr Rate Change 03/21/2021 4:00 AM MOVIE THEATER USHER 0.02 mcg/kg/min 3.15 mL /hr Rate Change 03/21/2021 2:00 AM MOVIE THEATER USHER 0.04 mcg/kg/min 6.29 mL /hr norepinephrine bitartrate-NS 8 mg/250 mL (32 mcg/mL) infusion 0-0.2 mcg/kg/min ? 83.9 kg (0-31.4625 mL/hr, rounded to 0-31.46 mL/hr), IV, TITRATE, Starting on Wed03/21/21 at 2215, Until Wed03/24/21 at 0943, Routine, Should this infusion be titrated? Yes, Is this a CABG patient? No, Initial infusion dose? 0.05 mcg/kg/min, Titration Dose Increment? 0.05 mcg/kg/min, Titration Interval? 10 minutes, Goal Type? MAP Goal, MAP Goal? Other (see comments) / > 70, Goal: MAP >70 Rate Change 03/24/2021 9:31 AM MOVIE THEATER USHER 0.1 mcg/kg/min 15.73 mL/hr Rate Verify 03/24/2021 9:00 AM MOVIE THEATER USHER 0.12 mcg/kg/min 18.88 m L/hr Rate Verify 03/24/2021 8:00 AM MOVIE THEATER USHER 0.12 mcg/kg/min 18.88 m L/hr norepinephrine bitartrate-NS 8 mg/250 mL (32 mcg/mL) infusion 0-0.2 mcg/kg/min ? 83.9 kg (0-31.4625 mL/hr, [...] comments) / > 60, Goal: MAP >60 Rate Change 03/25/2021 4:00 AM MOVIE THEATER USHER 0.01 mcg/kg/min 1.57 mL/hr Rate Change 03/25/2021 1:00 AM MOVIE THEATER USHER 0.02 mcg/kg/min 3.15 mL /hr Rate Change 03/25/2021 12:00 AM MOVIE THEATER USHER 0.01 mcg/kg/min 1.57 m L/hr ondansetron (ZOFRAN) 4 mg/2 mL injection 4 mg 4 mg, IV, EVERY 6 HOURS PRN, Starting on Wed03/14/21 at 0141, Until Jerilyn 03/27/21 at 2245, Nausea/Emesis, Routine Given 03/23/2021 9:08 AM MOVIE THEATER USHER 4 mg Given 03/21/2021 8:22 PM MOVIE THEATER USHER 4 mg Given 03/21/2021 8:34 AM MOVIE THEATER USHER 4 mg oxyCODONE-acetaminophen (PERCOCET) 5-325 mg per tablet 1 Tablet 1 Tablet, Oral, EVERY 4 HOURS PRN, Starting on Wed03/14/21 at 0306, Until 03/22/21 at 0920, Pain (See admin instructions), Routine Given 03/16/2021 2:08 AM MOVIE THEATER USHER 1 Tablet Given 03/15/2021 9:09 PM MOVIE THEATER USHER 1 Tablet Given 03/14/2021 9:53 PM MOVIE THEATER USHER 1 Tablet pantoprazole (PROTONIX) tablet 40 mg 40 mg, Oral, TWO TIMES DAILY, First dose on Wed03/13/21 at 2100, Until Discontinued, Routine, Previous Med: pantoprazole (PROTONIX) 40 mg Tablet, Delayed Release (E.C.) - Orig Sig - Take 1 Tablet by mouth 2 times daily. , Indication: Gastroesophageal reflux disease (GERD) Given 03/19/2021 9:24 AM MOVIE THEATER USHER 40 mg Given 03/18/2021 8:23 PM MOVIE THEATER USHER 40 mg Given 03/18/2021 8:53 AM MOVIE THEATER USHER 40 mg pantoprazole (PROTONIX) tablet 40 mg 40 mg, Oral, DAILY BEFORE BREAKFAST, First dose (after last modification) on Wed03/20/21 at 0600, Until Discontinued, Routine, Previous Med: pantoprazole (PROTONIX) 40 mg Tablet, Delayed Release (E.C.) - Orig Sig - Take 1 Tablet by mouth 2 times daily. , Indication: Gastroesophageal reflux disease (GERD) Given 03/27/2021 5:03 AM MOVIE THEATER USHER 40 mg Given 03/26/2021 5:29 AM MOVIE THEATER USHER 40 mg Given 03/25/2021 6:08 AM MOVIE THEATER USHER 40 mg polyethylene glycol (MIRALAX) packet 17 Gram 17 Gram, Oral, DAILY, First dose on Wed03/19/21 at 0945, Until Discontinued, Routine Given 03/27/2021 9:36 AM MOVIE THEATER USHER 17 Grams Given 03/26/2021 8:19 AM MOVIE THEATER USHER 17 Grams Given 03/25/2021 10:20 AM MOVIE THEATER USHER 17 Grams potassium, sodium phosphates (PHOS-NaK) 280-160-250 mg oral powder 2 Packet 2 Packet, Oral, ONE TIME ONLY, 1 dose, On 03/15/21 at 0900, Routine Given 03/15/2021 8:02 AM MOVIE THEATER USHER 2 Packets sodium chloride 0.9% bolus solution 500 mL 500 mL, IV, ONE TIME ONLY, 1 dose, On Wed03/14/21 at 0330, at 999 mL/hr, Administer over 30 Minutes, Routine Bolus from Bag 03/14/2021 3:26 AM MOVIE THEATER USHER 500 mL 999 mL/hr sodium chloride 0.9% bolus solution 500 mL 500 mL, IV, ONE TIME ONLY, 1 dose, On 03/17/21 at 1100, at 999 mL/hr, Administer over 30 Minutes, Routine New Bag 03/17/2021 11:00 AM M[employer]IE THEATER USHER 500 mL 999 mL/hr sodium chloride 0.9% bolus solution 500 mL 500 mL, IV, ONE TIME ONLY, 1 dose, On 03/23/21 at 0900, at 2,000 mL/hr, Administer over 15 Minutes, Stat New Bag 03/23/2021 9:07 AM MOVIE THEATER USHER 500 mL 2000 mL/hr sodium chloride 0.9% infusion IV, at 80 mL/hr, CONTINUOUS, Starting on Jerilyn 03/13/21 at 1830, Until 03/14/21 at 1350, Routine, Saline lock when patient has good oral intake, Post-op - Floor New Bag 03/13/2021 6:35 PM M[employer]IE THEATER USHER 80 mL/hr sodium chloride tablet 1 Gram 1 Gram, Oral, THREE TIMES DAILY WITH MEALS, First dose on [facility] 03/15/21 at 0845, Until Discontinued, Routine Given 03/15/2021 5:03 PM MOVIE THEATER USHER 1 Gram Given 03/15/2021 11:31 AM MOVIE THEATER USHER 1 Gram sodium chloride tablet 1 Gram 1 Gram, Oral, THREE TIMES DAILY WITH MEALS, First dose (after last modification) on [facility] 03/20/21 at 1200, Until Discontinued, Routine Given 03/21/2021 5:33 PM MOVIE THEATER USHER 1 Gram Given 03/21/2021 1:31 PM MOVIE THEATER USHER 1 Gram Given 03/21/2021 8:12 AM MOVIE THEATER USHER 1 Gram sodium chloride tablet 2 Gram 2 Gram, Oral, THREE TIMES DAILY WITH MEALS, First dose (after last modification) on [place] 03/16/21 at 1200, Until Discontinued, Routine Given 03/20/2021 6:13 AM MOVIE THEATER USHER 2 Grams Given 03/19/2021 5:09 PM MOVIE THEATER USHER 2 Grams Given 03/19/2021 1:59 PM MOVIE THEATER USHER 2 Grams sodium chloride tablet 2 Gram 2 Gram, Oral, THREE TIMES DAILY WITH MEALS, First dose (after last modification) on 03/22/21 at 0800, Until Discontinued, Routine Given 03/22/2021 4:30 PM MOVIE THEATER USHER 2 Grams Given 03/22/2021 12:06 PM MOVIE THEATER USHER 2 Grams Given 03/22/2021 8:00 AM MOVIE THEATER USHER 2 Grams sodium chloride tablet 3 Gram 3 Gram, Oral, EVERY 8 HOURS, First dose (after last modification) on Wed03/23/21 at 0830, Until Discontinued, Routine Given 03/27/2021 8:07 PM MOVIE THEATER USHER 3 Grams Given 03/27/2021 2:45 PM MOVIE THEATER USHER 3 Grams Given 03/27/2021 5:02 AM MOVIE THEATER USHER 3 Grams tiZANidine (ZANAFLEX) tablet 4 mg 4 mg, Oral, EVERY 6 HOURS PRN, Starting on Jerilyn 03/13/21 at 1827, Until Wed03/24/21 at 0725, Spasm, Routine Given 03/24/2021 5:32 AM M[employer]IE THEATER USHER 4 mg Given 03/23/2021 8:48 PM MOVIE THEATER USHER 4 mg Given 03/23/2021 3:33 PM MOVIE THEATER USHER 4 mg tiZANidine (ZANAFLEX) tablet 4 mg 4 mg, Oral, EVERY 8 HOURS, First dose on Wed03/26/21 at 0930, Until Discontinued, Routine Given 03/27/2021 4:33 PM MOVIE THEATER USHER 4 mg Given 03/27/2021 9:29 AM M[employer]IE THEATER USHER 4 mg Given 03/26/2021 11:35 PM MOVIE THEATER USHER 4 mg zolpidem (AMBIEN) tablet 5 mg 5 mg, Oral, NIGHTLY PRN, Starting on Wed03/25/21 at 2238, Until Jerilyn 03/27/21 at 2245, Insomnia, Routine documented in this encounter Active and Recently Administered Medications Times are shown in M[employer]IE THEATER USHER. Scheduled Medication Order 03/25/2021 03/26/2021 03/27/2021 dextrose 5% - sodium chloride 0.9% infusion IV, at 40 mL/hr, SEE ADMIN INSTRUCTIONS, Starting on Wed03/14/21 at 1333, Until Jerilyn 03/27/21 at 2245, Routine dextrose 50% (D50) syringe 12.5 Gram 12.5 Gram, IV, SEE ADMIN INSTRUCTIONS, Starting on Wed03/14/21 at 1333, Until Jerilyn 03/27/21 at 2245, Routine dextrose 50% (D50) syringe 25 Gram 25 Gram, IV, SEE ADMIN INSTRUCTIONS, Starting on Wed03/14/21 at 1333, Until Jerilyn 12/16/21 at 2245, Routine docusate sodium (COLACE) capsule 100 mg 100 mg, Oral, TWO TIMES DAILY, First dose on Wed03/13/21 at 2100, Until Discontinued, Routine 1020 (Given - Provider: Rupali Chavarria RN)2018 (Given - Provider: MAX Antonio) 08 (Given - Provider: Martha Rankin RN)2014 (Given - Provider: MAX Antonio) 09 (Given - Provider: Rupali Shirley RN)2007 (Refused - Provider: Mariela Martinez RN) enoxaparin (LOVENOX) injection 40 mg 40 mg, subCUT, EVERY 24 HOURS, First dose (after last modification) on Wed03/18/21 at 2100, Until Discontinued, Routine, Indication: Prophylaxis of VTE 2018 (Given - Provider: MAX Antonio) 2015 (Given - Provider: MAX Antonio) 2008 (Given - Provider: Mariela Martinez RN) fludrocortisone (FLORINEF) tablet 0.2 mg 0.2 mg, Oral, DAILY, First dose (after last modification) on Wed03/23/21 at 1000, Until Discontinued, Routine 1020 (Given - Provider: Rupail Chavarria RN) 1020 (Given - Provider: Martha Rankin RN) 0928 (Given - Provider: Rupali Shirley RN) fluticasone propionate (FLONASE) 50 mcg/spray nasal inhaler 2 Bear 2 Bear, Both Nostrils, DAILY, First dose on Wed03/14/21 at 0900, Until Discontinued, Routine, Previous Med: fluticasone propionate (FLONASE) 50 mcg/spray Bear, Suspension nasal inhaler - Orig Sig - [...] Chavarria RN)2016 (Given - Provider: MAX Antonio) 05 (Given - Provider: MAX Antonio)143 (Given - Provider: Martha Rankin RN)2014 (Given - Provider: MAX Antonio) 050 (Given - Provider: MAX Antonio)1444 (Given - [...] MAX Antonio)143 (Given - Provider: Martha Rankin, TOMMY)2013 (Given - Provider: MAX Antonio) 050 (Given - Provider: MAX Antonio)1443 (Given - Provider: Rupali Shirley RN)2006 (Given - Provider: Mariela Martinez RN) naloxone (NARCAN) 0.4 mg/mL injection 0.1 mg 0.1 mg, IV, SEE ADMIN INSTRUCTIONS, Starting on Wed03/13/21 at 1827, Until Jerilyn 03/27/21 at 2245, Routine pantoprazole (PROTONIX) tablet 40 mg 40 mg, Oral, DAILY BEFORE BREAKFAST, First dose (after last modification) on Jerilyn 03/20/21 at 0600, Until Discontinued, Routine, Previous Med: pantoprazole (PROTONIX) 40 mg Tablet, Delayed Release (E.C.) - Orig Sig - Take 1 Tablet by mouth 2 times daily. , Indication: Gastroesophageal reflux disease (GERD) 0608 (Given - Provider: David Robb RN) 0529 (Given - Provider: MAX Antonio) 050 (Given - Provider: MAX Antonio) polyethylene glycol (MIRALAX) packet 17 Gram 17 Gram, Oral, DAILY, First dose on Wed03/19/21 at 0945, Until Discontinued, Routine 1020 (Given - Provider: Rupali Chavarria RN) 0819 (Given - Provider: Martha Rankin, TOMMY) 0936 (Given - Provider: Rupali Shirley RN) sodium chloride tablet 3 Gram 3 Gram, Oral, EVERY 8 HOURS, First dose (after last modification) on Wed03/23/21 at 0830, Until Discontinued, Routine 0609 (Given - Provider: David Robb RN)1205 (Given - Provider: Rupali Chavarria RN)2016 (Given - Provider: MAX Antonio) 0527 (Given - Provider: MAX Antonio)1432 (Given - Provider: Martha Rankin RN)2100 (Refused - Provider: MAX Antonio - Comment: Patient just took dose from earlier today) 0502 (Given - Provider: MAX Antonio)1445 (Given - [...] 0815, Until Wed03/27/21 at 2245, Constipation, Routine 1022 (Given - Provider: Rupali Chavarria RN) cyclobenzaprine (FLEXERIL) tablet 5 mg (CANCELED) 5 mg, Oral, THREE TIMES DAILY PRN, Starting on Wed03/25/21 at 0933, Until Wed03/26/21 at 0844, Spasm, Routine 1012 (Return to [facility] - Provider: Rupali Chavarria RN)1829 (Given - Provider: Martha Rankin RN) ondansetron (ZOFRAN) 4 mg/2 mL injection 4 mg 4 mg, IV, EVERY 6 HOURS PRN, Starting on Wed03/14/21 at 0141, Until Jerilyn 03/27/21 at 2245, Nausea/Emesis, Routine zolpidem (AMBIEN) tablet 5 mg 5 mg, Oral, NIGHTLY PRN, Starting on Wed03/25/21 at 2238, Until Wed03/27/21 at 2245, Insomnia, Routine 2248 (Return to Cabinet - Provider: MAX Antonio) documented in this encounter Care Teams Pilot Instructor Relationship Specialty Start Date End Date Huang Alonso MD [address] [place] [id number] PCP - General Family Practice 10/03/13 05/06/22 documented as of this encounter
--- OUTSIDE RECORDS SUMMARY | 2024-04-13 08:44 | XMS_ITS | Encounter Summary ---
Author Organization [facility] Address [address] [place] [address] Care Team Providers Care Accessibility Lift Technician Name Role Phone Huang Alonso MD Primary Care Provider [phone] Reason for Visit * Auth/Cert Specialty Diagnoses [...] 2/3 laminectomy Katherin Larios MD [address] [facility] [facility] [address] [address] x0 Referral ID Status Reason Start Date Expiration Date Visits Re quested Visits Authorized [id number] 02/12/2021 1 1 Encounter Details Date Type Department Care Team (Late st Contact Info) Description 03/13/2021 1:28 PM FIXTURE FABRICATOR REPAIRER Anesthesia Event [facility] Operating Room [address] [place] [address] Enrique Teran MD [address] [place] [phone] Vinita Tovar, FISH AGENT [address] [place] [address] Anesthesia Record Procedure Summary Procedure Name Responsible Anesthesiologist Anesthesia Start Time Anesthesia Stop Time CERVICAL DISCECTOMY FUSION 2 LEVEL ANTERIOR (Spine Cervical) Enrique Teran MD 03/13/21 1328 03/13/21 1726 Events Date Time Event Comment 03/13/2021 1259 Intended Opioids 1314 AN Equip Check Anesthesia eq uipment and materials checked in accordance with local policy. 1315 1328 An Start 1328 An Start Data 1329 In Room This event disp lays the In Room time documented in the Surgical Log. Deleting this event will not remove it from the log but will remove it from the Grid and Graph timeline. 1331 Pre-Induction Immediate pre- induction anesthetic assessment performed. Vital signs as noted on graphic. 1332 An Induction 1334 An Intubation 1341 Quick Note Patient turned from supine position to prone position. ??Neck and head neutral throughout. ??Arms tucked at sides, with foam padding at bilateral arms. ??Ulnar nerve checked and free of pressure. Via prone view, eyes, nose and ears free of pressure and checked. All accessible pressure points, eyes and face checked q 15 minutes as noted in the anesthesia record. 1345 Anesthesia Ready 1357 Procedure Start This event d isplays the Procedure Start time documented in the Surgical Log. Deleting this event will not remove it from the log but will remove it from the Grid and Graph timeline. 1647 Procedure Stop This event di splays the Procedure Stop time documented in the Surgical Log. Deleting this event will not remove it from the log but will remove it from the Grid and Graph timeline. 1658 An Extubation Emergence unev entful Awake, spontaneous respirations. Adequate muscle strength demonstrated Adequate tidal volume. Orapharynx suctioned. Extubated with positive pressure ventilation. 1719 Out of Room This event disp lays the Out of Room time documented in the Surgical Log. Deleting this event will not remove it from the log but will remove it from the Grid and Graph timeline. 1726 An Stop 1726 an stop data 03/14/2021 1412 Follow-up Complete Meds Name Total scopolamine (TRANSDERM-SCOP) 1.5 mg casper sdermal patch 1 Patch fentaNYL (SUBLIMAZE) PF 50??mcg/mL injec tion 250 mcg lidocaine PF (XYLOCAINE MPF) 20 mg/mL sy ringe 60 mg propofol (DIPRIVAN) 10??mg/mL injection 150 mg rocuronium (ZEMURON) 10 mg/mL 5 mL injec tion 60 mg phenylephrine 1 mg/10 mL (100 mcg/mL) in jection 500 mcg ceFAZolin in sterile water (ANCEF) 2 gra m/20 mL IV Syringe (PREMIX) 2,000 mg 2,000 mg dexamethasone (DECADRON) 4 mg/mL injecti on 8 mg famotidine (pf) (PEPCID) 20 mg/2 mL inje ction 20 mg ondansetron (ZOFRAN) 4??mg/2 mL injectio n 4 mg ePHEDrine 50 mg/mL injection 10 mg glycopyrrolate (ROBINUL) 0.4 mg/2 mL (0. 2 mg/mL) syringe 0.8 mg neostigmine (PROSTIGMINE) 1 mg/mL inject ion 5 mg HYDROmorphone (DILAUDID) 2 mg/mL injecti on 1.5 mg diphenhydrAMINE (BENADRYL) 50 mg/mL inje ction 12.5 mg lactated ringers infusion 2,800 mL * Agents Name Air Sevoflurane % Desflurane % Sevoflurane Desflurane O2 N2O Inspired N2O O2 * Blood No blood administrations on file. Lines, Drains, and Airways Type Details Placement Removal Peripheral IV Pre-Hospital Start: No; Orientation: Anterior, Left, Lower; Location: Arm; Device: Angiocath; Gauge: 20 gauge; Needle Length: 1 in length; Insertion Attempts: 2 (1-unsuccessful Koko Finn AAS / 1-successful Nuvia Dyer LPN); Patient Tolerance: tolerated well, appears comfortable; Pain Prevention: intradermal injection; Power Injectable Compatible: No 03/13/21 1206 by Nuvia Park LPN 03/30/21 2200 by Fidel Rubin, TOMMY ART Line Orientation: Left:; Location: radial artery; Size (Ga): 20 Ga 03/13/21 1332 by Matty Gonzalez MD 03/13/21 1805 by Marcelo Sagastume RN Endotracheal Airway Type: ETT; Size: 7; Attempts: 1; Verification: Auscultated bilateral breath sounds, Equal chest movement, Continuous waveform capnography 03/13/21 1334 by Ray Cheng AA-C 03/13/21 1658 by Crystal Jeff CRNA Peripheral IV Pre-Hospital Start: No; Orientation: Posterior, Right; Location: Hand; Device: Angiocath; Gauge: 18 gauge; Needle Length: 1.25 in length; Insertion Attempts: 1; Patient Tolerance: (under GA) 03/13/21 1337 by Ray Cheng AA-C Drain Present on Admission : No; Tube Number: #1; Orientation: Right:; Location: cervical spine; Type: round (15F ROUND DRAIN); Size (Fr): 15 Fr 03/13/21 1504 by Najma Drake RN 03/17/21 1200 by Candelaria Syed RN Incision 03/13/21; 1509; surg ical incision; other (comment); back; 03/22/21; 1900 03/13/21 1509 by Najma Drake RN 03/22/21 1900 by Fredy Looney RN Incision 03/13/21; 1556; surg ical incision; other (comment); cervical spine; 03/22/21; 1900 03/13/21 1556 by Najma Drake RN 03/22/21 1900 by Fredy Looney RN documented in this encounter Social History Tobacco [...] COVID-19? No / Unsure 03/13/2021 10:01 AM FIXTURE FABRICATOR REPAIRER documented as of this encounter OR Notes * Anesthesia Post-Op Follow-up Note - Kathie eBrnabe RN - 03/14/2021 2:12 PM CST 03/14/2021 2:12 PM Hailee Siegel No apparent Anesthesia related complications Kathie Bernabe RN URE FABRICATOR REPAIRER * Anesthesia Postprocedure Evaluation - Paulie Lam MD - 03/13/2021 5:33 PM CST Phase I Postanesthesia Evaluation Including Modified Praful Score Patient seen and evaluated: Modified Praful Score: Score: 8 (03/13/211726) COMMENTS: No apparent Anesthesia related complications RESPIRATORY FUNCTION: Respiration: able to breath and cough freely (03/13/211726) [2=able to breathe and cough freely, 1=dyspnea, limited breathing or tachypnea, 0=apnea or mechanicventilator] O2 Saturation: needs O2 inhalation to maintain O2 saturation greater than 90% (03/13/211726) [2=able to maintain O2 saturation greater than 92% on room air, 1=needs O2 inhalation to maintain O2 saturation greater than 90%, 0=O2 saturation less than 90% even with O2 supplement] Resp: 10 (03/13/211729)SpO2: 100 % (03/13/211729) CARDIOVASCULAR FUNCTION: Heart Rate: 70 bpm (03/13/211729) BP: (!) 90/44 (03/13/211729) Circulation: BP within 20% of preanesthetic level (03/13/211726) [2=BP within 20% of preanesthetic level, 1=BP within 20-49% of preanesthetic level, 0=BP within 50%of preanesthetic level] MENTAL STATUS, NEURO, ACTIVITY: PATIENT PARTICIPATION IN EVALUATION:yes Consciousness: arousable on calling (03/13/211726) [2=fully awake, 1=arousable on calling, 0=not responding] Activity: able to move 4 extremities voluntarily or on command (03/13/211726) [2=able to move 4 extremities voluntarily or on command, 1=able to move 2 extremities voluntarily or on command, 0=unable to move extremities voluntarily or on command] TEMPERATURE: Temp: 36.3 ??C (03/13/211719) PAIN: Pain Rating: Rest: 7 (03/13/211217) Presence of Pain: complains of pain/discomfort (12/02/21 1218) NAUSEA AND VOMITING: no nausea and no vomiting POSTOPERATIVE HYDRATION: well hydrated Intake/Output Summary (Last 24 hours) at 03/13/2021 1733 Last data filed at 03/13/2021 1730 Gross per 24 hour Intake 2800 ml Output 200 ml Net 2600 ml Paulie Lam MD 03/13/2021 5:33 PM Post Anesthesia Evaluation Vitals: Vitals Value Taken Time BP 90/44 03/13/21 1730 Temp 36.3 ??C 03/13/21 1720 Resp 9 03/13/21 1731 SpO2 100 % 03/13/211730 Pulse 70 03/13/21 173 Heart Rate 71 bpm 03/13/211730 Vitals shown include unvalidated device data. Pain Rating: Pain Rating: Rest: 7 (03/13/21 1218) Anesthesia Post Evaluation Patient location during evaluation: PACU Patient participation: patient was able to participate in the post op evaluation Level of consciousness: 0 = alert, responsive, answers simple questions appropriately, able to perform simple tasks Pain management: adequate Airway patency: patent Nausea or Vomiting: none Anesthetic complications: no Cardiovascular status: regular rate and rhythm Respiratory status: no respiratory symptoms Hydration status: well hydrated Paulie Lam MD URE FABRICATOR REPAIRER * Anesthesia Handoff - Crystal Jeff CRNA - 03/13/2021 5:30 PM CST Post-Anesthetic transfer of care report elements to appropriate post-anesthesia recovery environment completed in accordance with procedure. I completed my handoff to the receiving nurse during which we: 1. Identified the patient 2. Identified the responsible provider 3. Reviewed the pertinent medical history 4. Discussed the surgical course 5. Reviewed intra-op anesthesia management and issues during anesthesia 6. Set expectations for post-procedure period 7. Orders as necessary and appropriate for continuation of care are present in Epic. 8. Allowed opportunity for questions and acknowledgement of understanding. Vital Signs: BP: 105/51 (03/13/2021 5:20 PM) Pulse: 73 (03/13/2021 5:20 PM) Temp: 36.3 ??C (03/13/2021 5:20 PM) Resp: 16 (03/13/2021 10:10 AM) SpO2: 100 % (03/13/2021 5:20 PM) 5:30 PM Crystal Jeff CRNA URE FABRICATOR REPAIRER * Anesthesia Procedure Notes - Matty Gonzalez MD - 03/13/2021 3:21 PM FIXTURE FABRICATOR REPAIRER Associated Order(s): Peripheral Line Insertion Peripheral Line Insertion Date/Time: 03/13/2021 1:38 PM Patient location during procedure: OR Performed by: Matty Gonzalez MD Preparation: Skin prepped with 2% chlorhexidine Skin prep agent dried: skin prep agent completely dried prior to procedure Hand hygiene: hand hygiene performed prior to procedure Patient was prepped and draped in usual sterile fashion Location: right hand Ultrasound guided: no Catheter size: 18 gauge Number of attempts: 1 Successful placement: yes Assessment: effective initial placement and positive blood return Procedure uneventful URE FABRICATOR REPAIRER * Anesthesia Procedure Notes - Matty Gonzalez MD - 03/13/2021 2:00 PM FIXTURE FABRICATOR REPAIRER Associated Order(s): Arterial Line Insertion Arterial Line Insertion Start Time: 03/13/2021 1:32 PM End Time: 03/13/2021 1:34 PM Patient location during procedure: OR Performed by: Matty Gonzalez MD time out called Patient was prepped and draped in usual sterile fashion Indications: hemodynamic monitoring Patient sedated: yes (GETA) Sedatives: see MAR for details Analgesia: see MAR for details Vitals: Vital signs were monitored during sedation. Hand hygiene performed prior to procedure Sterile Barriers: gloves, cap, mask and sterile towels Preparation: skin prepped with ChloraPrep Skin prep agent dried: skin prep agent completely dried prior to procedure Patient position: flat Location: left radial Catheter type: radial kit Catheter size: 20 G Catheter Length (in.): 1.75 Vanduser Identification: palpation technique Number of attempts: 1 Successful placement: yes Assessment: blood return through port Procedure uneventful Post-procedure: dressing applied and line secured URE FABRICATOR REPAIRER * Anesthesia Procedure Notes - Ray Cheng AA-C - 03/13/2021 1:59 PM FIXTURE FABRICATOR REPAIRER Associated Order(s): Airway Airway Date/Time: 03/13/2021 1:34 PM Location: OR Plan: routine intubation Patient Identity Confirmed by: Verbally with patient and armband Airway: not difficult Performed by: AA: Ray Cheng AA-C Indications and Patient Condition: Indications for Airway Management: Anesthesia Preoxygenated: Yes Patient Position: Sniffing Mask Difficulty Assessment: 2 - vent by mask + OA or adjuvant +/- NMBA Plan to extubate at end of case: Yes Final Airway Details: Final Airway Type: Endotracheal airway Final Endotracheal Airway: ETT Cuffed: Yes Cuff Volume (mL): 5 Technique Used for Successful ETT Placement: Video laryngoscopy Devices/Methods Used in Placement: Intubating stylet and video laryngoscope Insertion Site: Oral Laryngoscope Blade/Videolaryngoscope Blade Size: 3 ETT Size (mm): 7.0 Reason for advanced technique: Elective Measured from: Teeth ETT to Teeth (cm): 20 Tube secured with: Tape and oral airway Placement Verified by: auscultation, end tidal CO2 and chest rise Cormack-Lehane Classification: Grade I - full view of glottis Number of Attempts at Approach: 1 URE FABRICATOR REPAIRER * Anesthesia Preprocedure Evaluation - Matty Gonzalez MD - 03/13/2021 1:01 PM FIXTURE FABRICATOR REPAIRER Images from the original note were not included. Anesthesia Evaluation Patient summary reviewed and Nursing notes reviewed Airway Mallampati: II TM distance: >3 FB Neck ROM: limited Comment: Normal mandibular protusion, thyromental distance, inter-incisor distance, and facies. Dental (+) bridge and chipped Comment: No loose dentition per patient Pulmonary breath sounds clear to auscultation (-) asthma, shortness of breath, recent URI Cardiovascular Exercise tolerance: good (+) hypertension, (-) CABG/stent, dysrhythmias, angina, CHF, orthopnea, murmur, weak pulses, peripheral edema ECG reviewed Rhythm: regular Rate: normal ROS comment: Patient was walking 2-3x/week 2 miles, including inclines up until 2 months ago when she had back pain Plays with 5 grandkids Neuro/Psych (+) neuromuscular disease, headaches, (-) TIA, CVA Comments: Cervical spondylosis with radiculopathy Thoracic spondylosis with cord compression Posterior headaches, neck and right arm pain GI/Hepatic/Renal (+) GERD well controlled, (-) liver disease, renal disease Endo/Other (+) arthritis (-) diabetes mellitus Abdominal (-) obese Abdomen: soft. Anesthesia History History of P[facility] (many years ago). Anesthesia Plan ASA Final: 2 General (I interviewed the patient or call center support representative to discuss relevant medical history & anesthetic experiences, performed a focused physical exam, and assessed the aspects of the patient's physical condition that may affect decisions regarding perioperative management. I reviewed documented allergies, medications, & pertinent diagnostic data and recent notes in the medical record. We had a discussion and disclosure about the material risks, common techniques, & expected recovery from general anesthesia and the patient voiced understanding and wished to proceed. A meaningful opportunity for answering questions was included and a reasonable expectation regarding post-procedure pain or discomfort was offered, when applicable.) Intravenous induction Oral ETT airway maintenance NPO status: Appropriately fasted per ASA Practice Guidelines (2016) Anesthetic plan and risks discussed with Patient (and son). Use of blood products: consented to blood products. Plan discussed with Surgeon and Anesthesiologist Certified Nutritionist. Post-op Pain Control Plan to use Per surgeon, Oral medication and IV or IM medication for post-op pain control. Smoking Compliance Patient did not smoke on day of surgery Body mass index is 32.77 kg/m??. Patient Vitals for the past 24 hrs: BP Temp Temp src Pulse Resp SpO2 Height Weight 03/13/21 1010 133/82 36.6 ??C Temporal 66 16 95 % 5' 3 (1.6 m) 83.9 kg (185 lb) Results for orders placed or performed during the hospital encounter of 02/25/21 EKG 12-LEAD Narrative Stationary ECG Study [facility] Test Date: 02/25/2021 2:03 PM Pat Name: HAILEE SIEGEL Department: 46 Room: Gender: F Pastry Decorator: erika : 1955 Requested By: KATHERIN Lindsay Order Number: [id number] David MD: Jarad Luna Measurements Intervals [place] Rate: 64 P: 26 CO: 181 QRS: 22 QRSD: 97 T: 23 QT: 436 QTc: 450 Interpretive Statements Sinus rhythm Low voltage, precordial leads Borderline T abnormalities, anterior leads Electronically Signed On 02-25-2021 15:47:03 FIXTURE FABRICATOR REPAIRER by Jarad Luna URE FABRICATOR REPAIRER documented in this encounter Miscellaneous Notes * Addendum Note - Kathie Bernabe RN - 03/14/2021 2:12 PM CST Addendum created 03/14/21 1412 by Kathie Bernabe RN Clinical Note Signed, Intraprocedure Event edited URE FABRICATOR REPAIRER documented in this encounter Plan of Treatment Upcoming Encounters Date Type Department Care Team (Late st Contact Info) Description 08/24/2024 11:00 AM CDT Video Visit [facility] [address] [place] [address] [place], [address] [place] [address] documented as of this encounter Procedures Procedure Name Priority Date/Time Associated Diagnosis Comments CO ANES INSERT CATH, ART, PERCUT, SHORTTERM Routine 03/13/2021 2:00 PM FIXTURE FABRICATOR REPAIRER PERIPHERAL IV ADULT Routine 03/13/2021 1 :38 PM FIXTURE FABRICATOR REPAIRER CO ANES VNPNXR 3 YEARS/> PHYS/QHP SKILL Routine 03/13/2021 1:38 PM FIXTURE FABRICATOR REPAIRER CO ANES INSERT ENDOTRACHEAL AIRWAY Routine 03/13/2021 1:34 PM FIXTURE FABRICATOR REPAIRER documented in this encounter Results * CO ANES INSERT CATH, ART, PERCUT, SHORTTERM (03/13/2021 2:00 PM FIXTURE FABRICATOR REPAIRER) Narrative Matty Gonzalez MD - 03/13/2021 2:00 PM FIXTURE FABRICATOR REPAIRER Matty Gonzalez MD ? 03/13/2021 ??3:20 PM Arterial Line Insertion Start Time: 03/13/2021 1:32 PM End Time: 03/13/2021 1:34 PM Patient location during procedure: OR Performed by: Matty Gonzalez MD time out called Patient was prepped and draped in usual sterile fashion Indications: hemodynamic monitoring Patient sedated: yes (GETA) Sedatives: see MAR for details Analgesia: see MAR for details Vitals: Vital signs were monitored during sedation. Hand hygiene performed prior to procedure Sterile Barriers: gloves, cap, mask and sterile towels Preparation: skin prepped with ChloraPrep Skin prep agent dried: skin prep agent completely dried prior to procedure Patient position: flat Location: left radial Catheter type: radial kit Catheter size: 20 G Catheter Length (in.): 1.75 Vanduser Identification: palpation technique Number of attempts: 1 Successful placement: yes Assessment: blood return through port Procedure uneventful Post-procedure: dressing applied and line secured Matty Gonzalez MD PROCEDURE/MINOR SURG ICAL ORDERABLES * CO ANES VNPNXR 3 YEARS/> PHYS/QHP SKILL, PERIPHERAL IV ADULT (03/13/2021 1:38 PM FIXTURE FABRICATOR REPAIRER) Narrative Matty Gonzalez MD - 03/13/2021 1:38 PM FIXTURE FABRICATOR REPAIRER Matty Gonzalez MD ? 03/13/2021 ??3:22 PM Peripheral Line Insertion Date/Time: 03/13/2021 1:38 PM Patient location during procedure: OR Performed by: Matty Gonzalez MD Preparation: Skin prepped with 2% chlorhexidine Skin prep agent dried: skin prep agent completely dried prior to procedure Hand hygiene: hand hygiene performed prior to procedure Patient was prepped and draped in usual sterile fashion Location: right hand Ultrasound guided: no Catheter size: 18 gauge Number of attempts: 1 Successful placement: yes Assessment: effective initial placement and positive blood return Procedure uneventful Matty Gonzalez MD PROCEDURE/MINOR SURG ICAL ORDERABLES * CO ANES INSERT ENDOTRACHEAL AIRWAY (03/13/2021 1:34 PM FIXTURE FABRICATOR REPAIRER) Narrative Ray Cheng AA-C - 03/13/2021 1:34 PM FIXTURE FABRICATOR REPAIRER Ray Cheng AA-C ? 03/13/2021 ??2:00 PM Airway Date/Time: 03/13/2021 1:34 PM Location: OR Plan: routine intubation Patient Identity Confirmed by: ??Verbally with patient and armband Airway: not difficult Performed by: AA: ??Ray Cheng AA-C Indications and Patient Condition: ??Indications for Airway Management: ??Anesthesia ??Preoxygenated: Yes ?Patient Position: ??Sniffing ??Mask Difficulty Assessment: ??2 - vent by mask + OA or adjuvant +/- NMBA ??Plan to extubate at end of case: Yes ?? Final Airway Details: ??Final Airway Type: ??Endotracheal airway ??Final Endotracheal Airway: ??ETT ??Cuffed: Yes ?Cuff Volume (mL): ??5 ??Technique Used for Successful ETT Placement: ??Video laryngoscopy ??Devices/Methods Used in Placement: ??Intubating stylet and video laryngoscope ??Insertion Site: ??Oral ??Laryngoscope Blade/Videolaryngoscope Blade Size: ??3 ??ETT Size (mm): ??7.0 Reason for advanced technique: Elective ??Measured from: ??Teeth ??ETT to Teeth (cm): ??20 ??Tube secured with: ??Tape and oral airway ??Placement Verified by: auscultation, end tidal CO2 and chest rise ?Cormack-Lehane Classification: ??Grade I - full view of glottis ??Number of Attempts at Approach: ??1 Matty Gonzalez MD PROCEDURE/MINOR SURG ICAL ORDERABLES documented in this encounter Visit Diagnoses Not on filedocumented in this encounter Administered Medications Inactive Administered Medications - up to 3 most recent administrations Medication Order MAR Action Action Date Dose Rate Site ceFAZolin in sterile water (ANCEF) 2 gram/20 mL IV Syringe (PREMIX) 2,000 mg 2,000 mg, IV, PRE-PROCEDURE ONCE, 1 dose, Starting on Jerilyn 03/13/21 at 1032, Until Jerilyn 03/13/21 at 1359, Routine, Pre-op, Antibiotic Indication: Surgical prophylaxis Given 03/13/2021 1:54 PM FIXTURE FABRICATOR REPAIRER 2,000 mg dexamethasone (DECADRON) 4 mg/mL injection IV, INTRA-PROCEDURE PRN, Starting on Jerilyn 12/2/21 at 1357, Until Jerilyn 03/13/21 at 1655, Routine, Anesthesia Intra-op Given 03/13/2021 1:57 PM FIXTURE FABRICATOR REPAIRER 8 mg diphenhydrAMINE (BENADRYL) injection IV, INTRA-PROCEDURE PRN, Starting on Jerilyn 03/13/21 at 1721, Until Jerilyn 03/13/21 at 1740, Routine, Anesthesia Intra-op Given 03/13/2021 5:21 PM FIXTURE FABRICATOR REPAIRER 12.5 mg ePHEDrine injection IV, INTRA-PROCEDURE PRN, Starting on Jerilyn 03/13/21 at 1455, Until Jerilyn 03/13/21 at 1655, Routine, Anesthesia Intra-op Given 03/13/2021 2:55 PM FIXTURE FABRICATOR REPAIRER 10 mg famotidine PF (PEPCID) 20 mg/2 mL injection IV, INTRA-PROCEDURE PRN, Starting on Jerilyn 03/13/21 at 1357, Until Jerilyn 03/13/21 at 1655, Routine, Anesthesia Intra-op Given 03/13/2021 1:57 PM FIXTURE FABRICATOR REPAIRER 20 mg fentaNYL PF (SUBLIMAZE) 50 mcg/mL injection IV, INTRA-PROCEDURE PRN, Starting on Jerilyn 03/13/21 at 1328, Until Jerilyn 03/13/21 at 1655, Routine, Anesthesia Intra-op Given 03/13/2021 4:42 PM FIXTURE FABRICATOR REPAIRER 50 mcg Given 03/13/2021 3:15 PM FIXTURE FABRICATOR REPAIRER 50 mcg Given 03/13/2021 1:58 PM FIXTURE FABRICATOR REPAIRER 50 mcg glycopyrrolate (ROBINUL) injection IV, INTRA-PROCEDURE PRN, Starting on Jerilyn 03/13/21 at 1644, Until Jerilyn 03/13/21 at 1655, Routine, Anesthesia Intra-op Given 03/13/2021 4:44 PM FIXTURE FABRICATOR REPAIRER 0.8 mg HYDROmorphone (DILAUDID) 2 mg/mL injection IV, INTRA-PROCEDURE PRN, Starting on Jerilyn 03/13/21 at 1655, Until Jerilyn 03/13/21 at 1730, Routine, Anesthesia Intra-op Given 03/13/2021 5:09 PM FIXTURE FABRICATOR REPAIRER 0.5 mg Given 03/13/2021 4:55 PM FIXTURE FABRICATOR REPAIRER 0.5 mg Given 03/13/2021 4:45 PM FIXTURE FABRICATOR REPAIRER 0.5 mg lactated ringers infusion IV, at 150 mL/hr, PRE-PROCEDURE CONTINUOUS, Starting on Jerilyn 03/13/21 at 1045, Until Jerilyn 03/13/21 at 1655, Routine Restarted 03/13/2021 4:43 PM FIXTURE FABRICATOR REPAIRER New Bag 03/13/2021 3:46 PM FIXTURE FABRICATOR REPAIRER 1000 mL/hr Rate Change 03/13/2021 3:45 PM FIXTURE FABRICATOR REPAIRER 1000 mL/hr lidocaine (PF) (XYLOCAINE MPF) 60 mg/3 mL (2 %) injection syringe IV, INTRA-PROCEDURE PRN, Starting on Jerilyn 03/13/21 at 1332, Until Jerilyn 03/13/21 at 1655, Routine, Anesthesia Intra-op Given 03/13/2021 1:32 PM FIXTURE FABRICATOR REPAIRER 60 mg neostigmine (PROSTIGIMINE) 5 mg/5 mL (1 mg/mL) injection IV, INTRA-PROCEDURE PRN, Starting on Jerilyn 03/13/21 at 1644, Until Jerilyn 03/13/21 at 1655, Routine, Anesthesia Intra-op Given 03/13/2021 4:44 PM FIXTURE FABRICATOR REPAIRER 5 mg ondansetron (ZOFRAN) 4 mg/2 mL injection IV, INTRA-PROCEDURE PRN, Starting on Jerilyn 03/13/21 at 1600, Until Jerilyn 03/13/21 at 1655, Routine, Anesthesia Intra-op Given 03/13/2021 4:00 PM FIXTURE FABRICATOR REPAIRER 4 mg phenylephrine 1 mg/10 mL (100 mcg/mL) injection IV, INTRA-PROCEDURE PRN, Starting on Jerilyn 03/13/21 at 1348, Until Jerilyn 03/13/21 at 1655, Routine, Anesthesia Intra-op Given 03/13/2021 4:28 PM FIXTURE FABRICATOR REPAIRER 100 mcg Given 03/13/2021 3:11 PM FIXTURE FABRICATOR REPAIRER 100 mcg Given 03/13/2021 2:32 PM FIXTURE FABRICATOR REPAIRER 100 mcg propofoL (DIPRIVAN) injection IV, INTRA-PROCEDURE PRN, Starting on Jerilyn 03/13/21 at 1332, Until Jerilyn 03/13/21 at 1655, Anesthesia Intra-op Given 03/13/2021 1:58 PM FIXTURE FABRICATOR REPAIRER 50 mg Given 03/13/2021 1:32 PM FIXTURE FABRICATOR REPAIRER 100 mg rocuronium injection IV, INTRA-PROCEDURE PRN, Starting on Jerilyn 03/13/21 at 1332, Until Jerilyn 03/13/21 at 1655, Routine, Anesthesia Intra-op Given 03/13/2021 2:45 PM FIXTURE FABRICATOR REPAIRER 30 mg Given 03/13/2021 1:32 PM FIXTURE FABRICATOR REPAIRER 30 mg scopolamine (TRANSDERM-SCOP) 1 mg/72 hr transdermal patch Transdermal, INTRA-PROCEDURE PRN, Starting on Jerilyn 03/13/21 at 1320, Until Jerilyn 03/13/21 at 1730, Routine, Anesthesia Intra-op Given 03/13/2021 1:20 PM FIXTURE FABRICATOR REPAIRER 1 Patch documented in this encounter Care Teams Accessibility Lift Technician Relationship Specialty Start Date End Date Huang Alonso MD [address] [place] [phone] PCP - General Family Practice 10/03/13 05/06/22 documented as of this encounter
--- OUTSIDE RECORDS SUMMARY | 2024-04-13 08:44 | XMS_ITS | Encounter Summary ---
Author Organization [facility] Address [address] [place] [address] Care Team Providers Care Azure Developer Name Role Phone Huang Alonso MD Primary Care Provider [phone]- [phone] Encounter Details Date Type Department Care Team (Late Contact Info) Description 03/04/[address] [facility] Neurosurgery - [facility] [address] [place] [address] Naresh Larios MD [address] [place] [address] -x0 (Work) Social History Tobacco [...] COVID-19? No / Unsure 02/25/2021 1:31 PM TUNNEL WORKER documented as of this encounter Plan of Treatment Upcoming Encounters Date Type Department Care Team (Late st Contact Info) Description 08/24/2024 11:00 AM CDT Video Visit [facility] Physical Med and Rehab - Re[facility] [address] [address] [place] [address] [place] [address] documented as of this encounter Procedures Procedure Name Priority Date/Time Associated Diagnosis Comments MRI LUMBAR WO CONTRAST Routine 02/12/2021 XR LUMBAR SPINE 2 OR 3 VW Routine 02/12/2021 documented in this encounter Results * MRI LUMBAR WO CONTRAST (02/12/2021) Anatomical Region Laterality Modality Spine Other Abstract Provider MR ORDERABLES * XR LUMBAR SPINE 2 OR 3 VW (02/12/2021) Anatomical Region Laterality Modality Spine Other Abstract Provider DIAGNOSTIC IMAGING O RDERABLES documented in this encounter Visit Diagnoses Not on filedocumented in this encounter Care Teams Azure Developer Relationship Specialty Start Date End Date Huang Alonso MD [address] [place] [address] PCP - General Family Practice 10/03/13 05/06/22 documented as of this encounter
--- OUTSIDE RECORDS SUMMARY | 2024-04-13 08:44 | XMS_ITS | Encounter Summary ---
Author Organization [facility] Address [address] [place] [address] Care Team Providers Care Kiln Tester Name Role Phone Huang Alonso MD Primary Care Provider [phone]- [phone] Encounter Details Date Type Department Care Team (Late Contact Info) Description 03/05/[address] [facility] Neurosurgery - [facility] [address] [address] [place] [address] Naresh Larios MD [address] [place] [address] -x0 (Work) Social History Tobacco [...] COVID-19? No / Unsure 02/25/2021 1:31 PM SOLDERING MACHINE FEEDER documented as of this encounter Plan of Treatment Upcoming Encounters Date Type Department Care Team (Late st Contact Info) Description 08/24/2024 11:00 AM CDT Video Visit [facility] Physical Med and Rehab - [facility] [address] [address] Be Rangel, [address] [place] [address] documented as of this encounter Visit Diagnoses Not on filedocumented in this encounter Care Teams Kiln Tester Relationship Specialty Start Date End Date Huang Alonso MD [address] [place] [address] PCP - General Family Practice 10/03/13 05/06/22 documented as of this encounter
--- OUTSIDE RECORDS SUMMARY | 2024-04-13 08:44 | XMS_ITS | Encounter Summary ---
Author Organization [facility] Address [address] [place] [address] Care Team Providers Care Door Patcher Name Role Phone Huang Alonso MD Primary Care Provider [phone]- [phone] Encounter Details Date Type Department Care Team (Late Contact Info) Description 03/11/2021 Abstract [facility] Neurosurgery - [facility] [address] [place] [address] Naresh Larios MD [address] [place] [address]x0 (Work) Social History Tobacco [...] COVID-19? No / Unsure 02/25/2021 1:31 PM ELEVATOR OPERATOR documented as of this encounter Plan of Treatment Upcoming Encounters Date Type Department Care Team (Late st Contact Info) Description 08/24/2024 11:00 AM CDT [facility] Physical Med and Rehab - [facility] [address] [address] Be Rangel, [address] [place] [address] documented as of this encounter Visit Diagnoses Not on filedocumented in this encounter Care Teams Door Patcher Relationship Specialty Start Date End Date Huang Alonso MD [address] [place] [address] PCP - General Family Practice 10/03/13 05/06/22 documented as of this encounter
--- OUTSIDE RECORDS SUMMARY | 2024-04-13 08:44 | XMS_ITS | Encounter Summary ---
Author Organization [facility] Address [address] [place] [address] Care Team Providers Care Ship Worker Name Role Phone Huang Alonso MD Primary Care Provider [phone]- [phone] Reason for Visit * Reason Onset Date Comments Medication Refill 03/13/2021 Encounter Details Date Type Department Care Team (Late Contact Info) Description 03/13/2021 Refill [facility] Neurosurgery - Medical [place] [address] [facility] [address] [place] [address] Dougie Bell, PASarahiC NO ADDRESS ON FILE Thoracic spondylosis with cord compression (Primary Dx) [...] COVID-19? No / Unsure 03/13/2021 10:01 AM TONE ARTIST APPRENTICE documented as of this encounter Plan of Treatment Upcoming Encounters Date Type Department Care Team (Late Contact Info) Description 08/24/2024 11:00 AM CDT Video Visit [facility] Physical Med and Rehab - Rehab Hosp [address] [address] Be Rangel, [address] [place] [address] documented as of this encounter Visit Diagnoses Diagnosis Thoracic spondylosis with cord compression- Primary Spondylosis with myelopathy, thoracic region documented in this encounter Care Teams Ship Worker Relationship Specialty Start Date End Date Huang Alonso MD [address] [place] [address] PCP - General Family Practice 10/03/13 05/06/22 documented as of this encounter
--- OUTSIDE RECORDS SUMMARY | 2024-04-13 08:44 | XMS_ITS | Encounter Summary ---
Author Organization [facility] Address [address] Pablo: [place] [address] Care Team Providers Care Ultrasonic Cleaner Name Role Phone Huang Alonso MD Primary Care Provider [phone] Encounter Details Date Type Department Care Team (Latest Contact Info) Description 03/13/2021 Travel Social History Tobacco Use Types Packs/Day [...] COVID-19? No / Unsure 03/13/2021 10:01 AM NURSERY MANAGER documented as of this encounter Plan of Treatment Upcoming Encounters Date Type Department Care Team (Late st Contact Info) Description 08/24/2024 11:00 AM CDT Video Visit [facility] Physical Med and Rehab - [facility] [address] [place] [address] [place] [address] [place] [address] documented as of this encounter Visit Diagnoses Not on filedocumented in this encounter Care Teams Ultrasonic Cleaner Relationship Specialty Start Date End Date Huang Alonso MD [address] [place] [address] PCP - General Family Practice 10/03/13 05/06/22 documented as of this encounter
--- OUTSIDE RECORDS SUMMARY | 2024-04-13 08:45 | XMS_ITS | Encounter Summary ---
Author Organization [facility] Address [address] [place] [address] Care Team Providers Care Business Mail Entry Clerk Name Role Phone Huang Alonso MD Primary Care Provider [phone]- [phone] Reason for Visit * Reason Onset Date Comments surgery 02/28/2021 Encounter Details Date Type Department Care Team (Late st Contact Info) Description 02/28/2021 Telephone [facility] Neurosurgery - Medical [facility] [address] [address] Naresh Larios MD [address] [facility] [place] [address] -x0 (Work) surgery Social History Tobacco Use Types Packs/Day [...] COVID-19? No / Unsure 03/13/2021 10:01 AM CLEANER AND PRESSER documented as of this encounter Miscellaneous Notes * Telephone Encounter - Radha Chanel PA - 02/28/2021 1:06 PM CLEANER AND PRESSER Images from the original note were not included. Patient also sent [employer] messages so adding to this telephone encounter to condense: Hailee Tanner Thomas R, MD 52 minutes ago (12:14 PM) DF I just got off the phone with medicare. They are telling me that your office needs to call the medicare provider claims line and plead my case on the necessity of having this surgery. There is no wayI can withstand any physical therapy and as far as pain management, I had it years ago and they areno longer an option. I'm not sleeping at night, mobility is difficult as well. I have to have this surgery on the 2nd... Please let me know what else I can do to get this taken care of. ?? Hailee Joseph Thomas R, MD 30 minutes ago (12:37 PM) DF If I need to prove I can???t do physical therapy please send me an order. I???ll go over here. NER AND PRESSER * Telephone Encounter - Christine Cottrell - 02/28/2021 11:40 AM CST Medicare is denying Hailee C4/5 & C5/6 adf and thoracic laminectomy due to lack of conservativetreatment. Is it ok to send an order for pt? NER AND PRESSER documented in this encounter Plan of Treatment Upcoming Encounters Date Type Department Care Team (Late st Contact Info) Description 08/24/2024 11:00 AM CDT Video Visit [facility] Physical Med and Rehab - [facility] [address] [place] [address] [place] [address] [place] [address] documented as of this encounter Visit Diagnoses Not on filedocumented in this encounter Care Teams Business Mail Entry Clerk Relationship Specialty Start Date End Date Huang Alonso MD [address] [place] [address] PCP - General Family Practice 10/03/13 05/06/22 documented as of this encounter
--- OUTSIDE RECORDS SUMMARY | 2024-04-13 08:45 | XMS_ITS | Encounter Summary ---
Author Organization [facility] Address [address] [place] [address] Care Team Providers Care Detailer Furniture Name Role Phone Huang Alonso MD Primary Care Provider [phone] [phone] Encounter Details Date Type Department Care Team (Latest Contact Info) Description 02/12/2021 Prep for Surgery [facility]3] Neurosurgery - [facility] [address] [facility] [address] [place] [address] Dougie Bell PA-C NO ADDRESS ON FILE Cervical spondylosis with radiculopathy (Primary Dx) Social History Tobacco Use Types Packs/Day Years Used Date Smoking Tobacco: Former Cigarettes Q uit: 1979 Smokeless Tobacco: Never Alcohol Use Standard [...] have Coronavirus / COVID-19? No / Unsure 02/17/2021 3:27 PM FRUIT DRYER documented as of this encounter Plan of Treatment Upcoming Encounters Date Type Department Care Team (Late st Contact Info) Description 08/24/2024 11:00 AM CDT Video Visit [facility]3] Physical Med and Rehab - [facility] [address] [place] [address] [place] [address] [place] [address] documented as of this encounter Visit Diagnoses Diagnosis Cervical spondylosis with radiculopathy- Primary Cervical spondylosis with myelopathy documented in this encounter Care Teams Detailer Furniture Relationship Specialty Start Date End Date Huang Alonso MD [address] [place] [id number] PCP - General Family Practice 10/03/13 05/06/22 documented as of this encounter
--- OUTSIDE RECORDS SUMMARY | 2024-04-13 08:45 | XMS_ITS | Encounter Summary ---
Author Organization [facility] Address [address] [place] [address] Care Team Providers Care Returned Telephone Equipment Appraiser Name Role Phone Huang Alonso MD Primary Care Provider [phone]- [phone] Encounter Details Date Type Department Care Team (Late st Contact Info) Description 02/19/2021 Orders Only [facility] Neurosurgery - [facility] [address] [place] [address] Naresh Larios MD [address] [address] [address]x0 (Work) Thoracic spondylosis with cord compression (Primary Dx) Social History Tobacco Use Types Packs/Day Years Used Date Smoking Tobacco: Former Cigarettes Q uit: 1980 Smokeless Tobacco: Never Alcohol Use Standard [...] COVID-19? No / Unsure 02/17/2021 3:27 PM SEMICONDUCTOR LAB TECHNICIAN documented as of this encounter Plan of Treatment Upcoming Encounters Date Type Department Care Team (Late st Contact Info) Description 08/24/2024 11:00 AM CDT Video Visit [facility] Physical Med and Rehab - Rehab Hosp [facility] [address] [place] [address] [place] [address] [place] [address] documented as of this encounter Visit Diagnoses Diagnosis Thoracic spondylosis with cord compression- Primary Spondylosis with myelopathy, thoracic region documented in this encounter Care Teams Returned Telephone Equipment Appraiser Relationship Specialty Start Date End Date Huang Alonso MD [address] [place] [address] PCP - General Family Practice 10/03/13 05/06/22 documented as of this encounter
--- OUTSIDE RECORDS SUMMARY | 2024-04-13 08:45 | XMS_ITS | Encounter Summary ---
Author Organization [facility] Address [address] [place] [address] Care Team Providers Care Environmental Change Analyst Name Role Phone Huang Alonso MD Primary Care Provider [phone]- [phone] Reason for Referral * MRI (Urgent) - Closed Specialty Diagnoses / Procedures Referred By Darlene hodgson Referred To Contact Radiology Diagnoses Right leg numbness Procedures MRI LUMBAR WO CONTRAST Naresh Larios MD [address] [facility] [address] [facility] [place] [address] x0 [facility] [address] [place] [address] Referral ID Status Reason Start Date Expiration Date Visits Re quested Visits Authorized [id number] Closed 02/17/2021 04/11/2021 1 1 BOX SERVICER Reason for Visit * Auth/Cert Specialty Diagnoses / Procedures Referred By Darlene hodgson Referred To Contact Radiology [facility] [address] [place] [address] Referral ID Status Reason Start Date Expiration Date Visits Re quested Visits Authorized [id number] 1 1 Encounter Details Date Type Department Care Team (Latest Contact Info) Description 02/17/2021 3:30 PM JUKE BOX SERVICER - 02/17/2021 11:59 PM JUKE BOX SERVICER Hospital Encounter [facility] MRI [facility] [address] [place] [address] Naresh Larios MD [address] [facility] [address] [facility] [place] [address] -x0 (Work) Discharge Disposition: Home or Self [...] COVID-19? No / Unsure 02/17/2021 3:27 PM JUKE BOX SERVICER documented as of this encounter Medications at Time of Discharge Medication Sig Dispensed Refills Start Date End Date gabapentin (NEURONTIN) 100 mg capsule Take 2 Capsules (200 mg) by mouth every 8 hours. 03/27/2021 04/16/2021 sodium chloride 1 gram tablet Take 1 Tablet (1 Gram) by mouth every 8 hours. 03/27/2021 04/18/2021 tiZANidine (ZANAFLEX) 4 mg Tablet Take 1 Tablet (4 mg) by mouth every 6 hours as needed for Spasm. 30 Tablet 03/13/2021 04/16/2021 lisinopril-hydroCHLORO thiazide (ZESTORETIC) 20-12.5 mg tablet Take 1 Tablet by mouth daily. 04/18/2021 pantoprazole (PROTONIX) 40 mg Tablet, Delayed Release (E.C.) Take 1 Tablet by mouth 2 times daily. 04/18/2021 trazodone HCl (TRAZODONE ORAL) Take 1 Tablet by mouth nightly as needed. 04/18/2021 fluticasone propionate (FLONASE) 50 mcg/spray [place], Suspension nasal inhaler Administer 2 Sprays in each nostril daily. 04/18/2021 documented as of this encounter Plan of Treatment Upcoming Encounters Date Type Department Care Team (Late st Contact Info) Description 08/24/2024 11:00 AM CDT Video Visit [facility] Physical Med and Rehab - Rehab Hosp Clinic [address] [place] [address] [place] [address] [place] [address] documented as of this encounter Procedures Procedure Name Priority Date/Time Associated Diagnosis Comments MRI LUMBAR WO CONTRAST Stat 02/17/2021 4:19 PM JUKE BOX SERVICER Right leg numbness documented in this encounter Results * MRI LUMBAR WO CONTRAST (02/17/2021 4:19 PM JUKE BOX SERVICER) Anatomical Region Laterality Modality Spine Magnetic Resonan ce 02/17/2021 4:27 PM JUKE BOX SERVICER Impressions 02/17/2021 5:25 PM JUKE BOX SERVICER IMPRESSION: Multilevel degenerative disc and joint disease with foraminal narrowing described above. Mild canal narrowing at L2-L3. DICTATION LOCATION: Location 1 - [facility] Narrative 02/17/2021 5:25 PM JUKE BOX SERVICER MRI LUMBAR SPINE WITHOUT CONTRAST ?? DATE: 02/17/2021 4:19 PM HISTORY: Right leg numbness, severe low back pain. ?? Right leg numbness. ?? COMPARISON: None. ?? TECHNIQUE: Multiplanar multisequence MR lumbar spine without contrast. Counting of vertebral segments is estimated from several anatomical factors within the field of view. X ray correlation to confirm the level is recommended prior to any surgical intervention. FINDINGS: There is minimal posterolisthesis of L1 on L2. Marrow edema is seen along the endplates at L1-L2. Conus terminates at L1. Distal cord and conus signal intensity is normal. Visualized portions of the abdomen and pelvis do not reveal significant mass or lymphadenopathy. T12-L1: No disc bulge. No foraminal or canal narrowing seen. L1-L2: There is diffuse posterior bulge, prominent on the left. Bilateral facet hypertrophy seen. There is no foraminal or canal narrowing seen. L2-L3: There is diffuse disc bulge. Bilateral facet hypertrophy seen. There is mild bilateral foraminal narrowing seen. Mild canal narrowing seen. L3-L4: There is diffuse disc bulge. Bilateral facet hypertrophy. No canal narrowing. There is a moderate right and mild left foraminal narrowing seen. L4-L5: There is diffuse disc bulge. Bilateral facet hypertrophy. No canal narrowing. There is mild left foraminal narrowing seen. L5-S1: There is no disc bulge. Bilateral facet hypertrophy. No canal narrowing. No foraminal narrowing seen. INCIDENTAL FINDINGS: ??None. Procedure Note Rehana Damico MD - 02/17/2021 MRI LUMBAR SPINE WITHOUT CONTRAST DATE: 02/17/2021 4:19 PM HISTORY: Right leg numbness, severe low back pain. Right leg numbness. COMPARISON: None. TECHNIQUE: Multiplanar multisequence MR lumbar spine without contrast. Counting of vertebral segments is estimated from several anatomical factors within the field of view. X ray correlation to confirm the level is recommended prior to any surgical intervention. FINDINGS: There is minimal posterolisthesis of L1 on L2. Marrow edema is seen along the endplates at L1-L2. Conus terminates at L1. Distal cord and conus signal intensity is normal. Visualized portions of the abdomen and pelvis do not reveal significant mass or lymphadenopathy. T12-L1: No disc bulge. No foraminal or canal narrowing seen. L1-L2: There is diffuse posterior bulge, prominent on the left. Bilateral facet hypertrophy seen. There is no foraminal or canal narrowing seen. L2-L3: There is diffuse disc bulge. Bilateral facet hypertrophy seen. There is mild bilateral foraminal narrowing seen. Mild canal narrowing seen. L3-L4: There is diffuse disc bulge. Bilateral facet hypertrophy. No canal narrowing. There is a moderate right and mild left foraminal narrowing seen. L4-L5: There is diffuse disc bulge. Bilateral facet hypertrophy. No canal narrowing. There is mild left foraminal narrowing seen. L5-S1: There is no disc bulge. Bilateral facet hypertrophy. No canal narrowing. No foraminal narrowing seen. INCIDENTAL FINDINGS: None. IMPRESSION: Multilevel degenerative disc and joint disease with foraminal narrowing described above. Mild canal narrowing at L2-L3. DICTATION LOCATION: Location 1 - [facility] Naresh Larios MD MR ORDERABLES documented in this encounter Visit Diagnoses Diagnosis Right leg numbness Disturbance of skin sensation documented in this encounter Care Teams Environmental Change Analyst Relationship Specialty Start Date End Date Huang Alonso MD [address] [place] [address] PCP - General Family Practice 10/03/13 05/06/22 documented as of this encounter
--- OUTSIDE RECORDS SUMMARY | 2024-04-13 08:45 | XMS_ITS | Encounter Summary ---
Author Organization [facility] Address [address] [place] [address] Care Team Providers Care Organ Fixer Name Role Phone Huang Alonso MD Primary Care Provider [phone] Reason for Referral * MRI (Routine) - Closed Specialty Diagnoses / Procedures Referred By Darlene hodgson Referred To Contact Diagnoses Neck pain Thoracic spondylosis with cord compression Procedures MRI THORACIC WO CONTRAST Nusrat Nickerson PA [address] [address] Referral ID Status Reason Start Date Expiration Date V isits Requested Visits Authorized [id number] Closed [facility] CTS 02/12/2021 03/15/2022 1 1 NE PUBLISHER Reason for Visit * Auth/Cert Specialty Diagnoses / Procedures Referred By Darlene hodgson Referred To Contact Radiology [facility] [address] [place] [address] Referral ID Status Reason Start Date Expiration Date Visits Re quested Visits Authorized [id number] 1 1 Encounter Details Date Type Department Care Team (Latest Contact Info) Description 02/17/2021 3:15 PM ONLINE PUBLISHER - 02/17/2021 11:59 PM ONLINE PUBLISHER [facility] [place] [address] [address] [place] [address] Nusrat Nickerson PA [address] [facility] [address] [place] [address] Discharge Disposition: Home or Self Care Social [...] COVID-19? No / Unsure 02/17/2021 3:27 PM ONLINE PUBLISHER documented as of this encounter Medications at [...] needed. 04/18/2021 fluticasone propionate (FLONASE) 50 mcg/spray [place], Suspension nasal inhaler Administer 2 Sprays in each nostril daily. 04/18/2021 documented as of this encounter Plan of Treatment Upcoming Encounters Date Type Department Care Team (Late st Contact Info) Description 08/24/2024 11:00 AM CDT Video Visit [facility] Physical Med and Rehab - [facility] [address] [place] [phone] [address], [address] [place] [address] documented as of this encounter Procedures Procedure Name Priority Date/Time Associated Diagnosis Comments MRI THORACIC WO CONTRAST Routine 02/17/2021 4:02 PM ONLINE PUBLISHER Neck pain Thoracic spondylosis with cord compression documented in this encounter Results * MRI THORACIC WO CONTRAST (02/17/2021 4:02 PM ONLINE PUBLISHER) Anatomical Region Laterality Modality Spine Magnetic Resonan ce 02/17/2021 4:02 PM ONLINE PUBLISHER Impressions 02/17/2021 6:12 PM ONLINE PUBLISHER IMPRESSION: 1. Severe central spinal canal stenosis at T2-3 due to a large central disc protrusion. This protrusion indents the ventral surface of the spinal cord. Abnormal increased T2 signal in the spinal cord suggests chronic myelopathy. The appearance is not significantly changed from the outside MRI of the cervical spine from 01/06/2021. 2. Multilevel degenerative changes throughout the mid thoracic spine without deformity of the spinal cord. DICTATION LOCATION: Location 1 - [facility] 02/17/2021 6:12 PM ONLINE PUBLISHER MRI THORACIC WITHOUT CONTRAST DATE: ??02/17/2021 4:02 PM HISTORY: T2-3 disc herniation with cord compression not fully seen on outside cervical MRI. COMPARISON: Outside MRI of the cervical spine from 01/06/2021. TECHNIQUE: Axial and sagittal spin-echo sequences of the thoracic spine performed without intravenous contrast. FINDINGS: The AP alignment of the thoracic vertebral bodies is normal. The vertebral body heights are well-preserved. Intervertebral disc space narrowing is seen, most pronounced at T3-4 and T4-5. There is a large focal central disc protrusion at T2-3 indenting the ventral surface of the thoracic spinal cord and resulting in severe central spinal canal stenosis. Abnormal increased T2 signal in the spinal cord is noted, consistent with compressive myelopathy. A small right paracentral disc protrusion is seen at T3-4 with mild flattening of the right aspect of the spinal cord. There is a left paracentral disc protrusion at T5-6, a mild generalized bulging disc at T6-7 and a left paracentral disc protrusion at T7-8, all without deformity of the thoracic spinal cord. A mild generalized bulging disc at T8-9 is seen without deformity of the spinal cord. The conus terminates in normal fashion at the T12-L1 level. Moderate facet arthropathy is seen, most pronounced in the mid thoracic spine on the left at T6-7, T7-8, T8-9 and T9-10 with mild foraminal stenosis at these levels. Procedure Note Belen Cedeño MD - 02/17/2021 MRI THORACIC WITHOUT CONTRAST DATE: 02/17/2021 4:02 PM HISTORY: T2-3 disc herniation with cord compression not fully seen on outside cervical MRI. COMPARISON: Outside MRI of the cervical spine from 01/06/2021. TECHNIQUE: Axial and sagittal spin-echo sequences of the thoracic spine performed without intravenous contrast. FINDINGS: The AP alignment of the thoracic vertebral bodies is normal. The vertebral body heights are well-preserved. Intervertebral disc space narrowing is seen, most pronounced at T3-4 and T4-5. There is a large focal central disc protrusion at T2-3 indenting the ventral surface of the thoracic spinal cord and resulting in severe central spinal canal stenosis. Abnormal increased T2 signal in the spinal cord is noted, consistent with compressive myelopathy. A small right paracentral disc protrusion is seen at T3-4 with mild flattening of the right aspect of the spinal cord. There is a left paracentral disc protrusion at T5-6, a mild generalized bulging disc at T6-7 and a left paracentral disc protrusion at T7-8, all without deformity of the thoracic spinal cord. A mild generalized bulging disc at T8-9 is seen without deformity of the spinal cord. The conus terminates in normal fashion at the T12-L1 level. Moderate facet arthropathy is seen, most pronounced in the mid thoracic spine on the left at T6-7, T7-8, T8-9 and T9-10 with mild foraminal stenosis at these levels. IMPRESSION: 1. Severe central spinal canal stenosis at T2-3 due to a large central disc protrusion. This protrusion indents the ventral surface of the spinal cord. Abnormal increased T2 signal in the spinal cord suggests chronic myelopathy. The appearance is not significantly changed from the outside MRI of the cervical spine from 01/06/2021. 2. Multilevel degenerative changes throughout the mid thoracic spine without deformity of the spinal cord. 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
--- OUTSIDE RECORDS SUMMARY | 2024-04-13 08:45 | XMS_ITS | Encounter Summary ---
Author Organization [facility] Address [address] [place] [address] Care Team Providers Care Motor Runner Name Role Phone Huang Alonso MD Primary Care Provider [phone] Reason for Referral * MRI (Urgent) - Closed Specialty Diagnoses / Procedures Referred By Contac t Referred To Contact Radiology Diagnoses Right leg numbness Procedures MRI LUMBAR WO CONTRAST Naresh Larios MD [address] [facility] [address] [facility] [place] [address] [facility] [address] [address] Referral ID Status Reason Start Date Expiration Date Visits Re quested Visits Authorized [id number] Closed 02/17/2021 04/11/2021 1 1 HIATRIC LPN Reason for Visit * Reason Onset Date Comments LOW BACK PAIN 02/17/2021 Encounter Details Date Type Department Care Team (Late st Contact Info) Description 02/17/2021 Telephone [facility] Neurosurgery - Medical [facility] [address] [facility] [place] [address] Naresh Larios MD [address] [facility] [address] [address] -x0 (Work) LOW BACK PAIN Social History Tobacco Use Types Packs/Day Years [...] COVID-19? No / Unsure 02/17/2021 3:27 PM PSYCHIATRIC LPN documented as of this encounter Miscellaneous Notes * Telephone Encounter - Christine Cottrell - 02/17/2021 3:08 PM CST I spoke with her. She is on her way to have mri now. HIATRIC LPN * Telephone Encounter - Barron Martinez PA - 02/17/2021 12:32 PM PSYCHIATRIC LPN Per Dr. Larios, get the lumbar . Lumbar MRI w/o ordered as stat. Please notify patient to call central scheduling and see if this can be added on for tomorrow. Thanks. HIATRIC LPN * Telephone Encounter - Barron Martinez PA - 02/17/2021 9:56 AM PSYCHIATRIC LPN Spoke to patient. She states she is also having severe low back pain when sleeping and when sittingin a chair for prolonged periods her entire right leg goes numb. She's unsure how long this has been going on for. Could possibly be related to T2-3 disc herniation (why we're getting the thoracic MRI). I'm not sure we could get a lumbar MRI approved by tomorrow or if there is anything if we would do anything right now for it so I told her to stick with current plan and if she continues to have symptoms we can work-up lumbar region after the fact. Dr. Larios- are you okay with this plan or do you feel strongly otherwise? HIATRIC LPN * Telephone Encounter - Brittany Song - 02/17/2021 8:37 AM CST Patient is scheduled for an ACDF on 03/13/21. She is scheduled for have an MRI or her Thoracic spinetomorrow because of pain she is having. Now she is also having severe low back pain and wants to know if she should have an MRI of her lumbar spine as well. [place] so she would prefer to get it all done in one trip. HIATRIC LPN documented in this encounter Plan of Treatment Upcoming Encounters Date Type Department Care Team (Late st Contact Info) Description 08/24/2024 11:00 AM CDT Video Visit [facility] Physical Med and Rehab - Rehab Hosp [facility] [address] [place] [address] [address], [address] [place] [address] documented as of this encounter Results * MRI LUMBAR WO CONTRAST (02/17/2021 4:19 PM PSYCHIATRIC LPN) Anatomical Region Laterality Modality Spine Magnetic Resonan ce 02/17/2021 4:27 PM PSYCHIATRIC LPN Impressions 02/17/2021 5:25 PM PSYCHIATRIC LPN IMPRESSION: Multilevel degenerative disc and joint disease with foraminal narrowing described above. Mild canal narrowing at L2-L3. DICTATION LOCATION: Location 1 - [facility] Narrative 02/17/2021 5:25 PM PSYCHIATRIC LPN MRI LUMBAR SPINE WITHOUT CONTRAST ?? DATE: [...] at L2-L3. DICTATION LOCATION: Location 1 - [facility] Naresh Larios MD MR ORDERABLES documented in this encounter Visit Diagnoses Diagnosis Right leg numbness- Primary Disturbance of skin sensation Right leg numbness Disturbance of skin sensation documented in this encounter Care Teams Motor Runner Relationship Specialty Start Date End Date Huang Alonso MD [address] [place] [phone] PCP - General Family Practice 10/03/13 05/06/22 documented as of this encounter
--- OUTSIDE RECORDS SUMMARY | 2024-04-13 08:45 | XMS_ITS | Encounter Summary ---
Author Organization [facility] Address [address] Pablo: [place] [address] Care Team Providers Care Human Services Program Specialist Name Role Phone Huang Alonso MD Primary Care Provider [phone] Encounter Details Date Type Department Care Team (Latest Contact Info) Description 01/07/2021 Travel Social History Tobacco Use Types Packs/Day Years Used Date Smoking Tobacco: Never Assessed Sex and Gender Information Value Date Recorded Sex Assigned at Not on file Gender Identity Not on file Sexual Orientation Not on file COVID-19 Exposure Response Date Recorded In the last month, have you been in contact with someone who was confirmed or suspected to have Coronavirus / COVID-19? No / Unsure 01/07/2021 4:52 PM CDT documented as of this encounter Plan of Treatment Upcoming Encounters Date Type Department Care Team (Late st Contact Info) Description 08/24/2024 11:00 AM CDT Video Visit [facility] Physical Med and Rehab - Rehab H[facility] [address] [place] [address] [place] [address] [place] [address] documented as of this encounter Visit Diagnoses Not on filedocumented in this encounter Care Teams Human Services Program Specialist Relationship Specialty Start Date End Date Huang Alonso MD [address] [place] [phone] PCP - General Family Practice 10/03/13 05/06/22 documented as of this encounter
--- OUTSIDE RECORDS SUMMARY | 2024-04-13 08:45 | XMS_ITS | Encounter Summary ---
Author Organization [facility] Address [address] Pablo: [place] [address] Care Team Providers Care Technician Anatomic Pathology Name Role Phone Huang Alonso MD Primary Care Provider [phone] Encounter Details Date Type Department Care Team (Latest Contact Info) Description 02/12/2021 Travel Social History Tobacco Use Types Packs/Day [...] have Coronavirus / COVID-19? No / Unsure 02/12/2021 8:40 AM CDT documented as of this encounter Plan of Treatment Upcoming Encounters Date Type Department Care Team (Late st Contact Info) Description 08/24/2024 11:00 AM CDT Video Visit [facility] Physical Med and Rehab - Rehab Hosp Clinic [address] [place] [address] [place] [address] [place] [address] documented as of this encounter Visit Diagnoses Not on filedocumented in this encounter Care Teams Technician Anatomic Pathology Relationship Specialty Start Date End Date Huang Alonso MD [address] [place] [address] PCP - General Family Practice 10/03/13 05/06/22 documented as of this encounter
--- OUTSIDE RECORDS SUMMARY | 2024-04-13 08:45 | XMS_ITS | Encounter Summary ---
Author Organization [facility] Address [address] [place] [address] Care Team Providers Care Globe Cleaner Name Role Phone Huang Alonso MD Primary Care Provider [phone] Encounter Details Date Type Department Care Team (Latest Contact Info) Description 02/25/2021 12:50 PM [facility] - 02/25/2021 11:59 PM [facility] Hospital Encounter [facility] [address] [place] [id number] Katherin Patton MD [address] [address] -[phone] (Work) Discharge Disposition: Home or Self Care Anesthesia Record Procedure Summary Procedure Name Responsible [...] stop data 03/14/2021 1412 Follow-up Complete Meds * Agents No agents on file. * Blood No blood administrations on file. [...] Matty Gonzalez MD 03/13/21 1805 by Marcelo Sagastume, TOMMY Endotracheal Airway Type: ETT; Size: 7; Attempts: [...] COVID-19? No / Unsure 02/25/2021 1:31 PM SOFTWARE RELIABILITY ENGINEER documented as of this encounter Last Filed Vital Signs Vital Sign Reading Time Taken Comments Blood Pressure 134/81 02/25/2021 1:29 PM SOFTWARE RELIABILITY ENGINEER Pulse 74 02/25/2021 1:29 PM SOFTWARE RELIABILITY ENGINEER Temperature - - Respiratory Rate - - Oxygen Saturation 96% 02/25/2021 1:29 PM SOFTWARE RELIABILITY ENGINEER Inhaled Oxygen Concentration - - Weight 83.5 kg (184 lb) 02/25/2021 1:29 PM SOFTWARE RELIABILITY ENGINEER Height 160 cm (5' 3 ) 02/25/2021 1:29 PM SOFTWARE RELIABILITY ENGINEER Body Mass Index 32.59 02/25/2021 1:29 PM SOFTWARE RELIABILITY ENGINEER documented in this encounter Medications at Time [...] needed. 04/18/2021 fluticasone propionate (FLONASE) 50 mcg/spray Adair, Suspension nasal inhaler Administer 2 Sprays in each nostril daily. 04/18/2021 documented as of this encounter OR Notes * Anesthesia PAT Evaluation - Vinita Tovar NP - 02/25/2021 1:00 PM SOFTWARE RELIABILITY ENGINEER Images from the original note were not included. Pre-Procedure Anesthesiology Consultation and Evaluation (PACE) Service 02/25/2021 1:56 PM Name: Hailee Siegel Age: 65 y.o. Sex: female CSN: [id number] Procedure(s): CERVICAL DISCECTOMY FUSION 2 LEVEL ANTERIOR T2/3 Laminectomy forget Allergies Allergen Reactions ??? Codeine Nausea and Vomiting ??? Oxycodone Nausea and Vomiting Pre-Surgery Instructions Medication Instructions ??? lisinopril-hydroCHLOROthiazide (ZESTORETIC) 20-12.5 mg tablet Do not take day of surgery ??? pantoprazole (PROTONIX) 40 mg Tablet, Delayed Release (E.C.) Continue taking as prescribed ??? trazodone HCl (TRAZODONE ORAL) Continue taking as prescribed ??? fluticasone propionate (FLONASE) 50 mcg/spray Adair, Suspension nasal inhaler Continue taking as prescribed Patient Active Problem List Diagnosis Date Noted ??? Neck pain 02/12/2021 ??? Cervical spondylosis with radiculopathy 02/12/2021 ??? Thoracic spondylosis with cord compression 02/12/2021 Past Medical History: Diagnosis Date ??? Abnormal stretch lennie ??? Arthritis ??? Depressed immune system Patient is unsure if this is accurate. ??? Dizziness ??? Dyspnea on exertion ??? Facial pain Intermittent ??? Fatigue ??? GERD (gastroesophageal reflux disease) Difficulty taking NSAIDs. ??? Headache ??? Heart attack Possible heart attack years ago ??? Heartburn ??? High blood pressure ??? History of anemia ??? History of complications due to general anesthesia N&V ??? HTN (hypertension) ??? Kidney calculus ??? Light Sensitivity ??? Low back pain ??? Muscle ache ??? Muscle twitching Legs ??? Neck pain ??? Night sweats ??? Palpitations ??? Post-operative nausea and vomiting ??? Postoperative nausea ??? Ringing in ears ??? Sleep apnea Patient is unsure if this is accurate. ??? Weakness Past Surgical History: Procedure Laterality Date ??? ENDOSCOPY, UPPER GI ??? HX SECTION x 2 ??? HX COLONOSCOPY ??? HX HYSTERECTOMY ??? HX MENISCECTOMY Right N/A Social History Tobacco Use ??? Smoking status: Former Smoker Packs/day: 0.50 Years: 5.00 Pack years: 2.50 Types: Cigarettes Quit date: 1979 Years since quittin.9 ??? Smokeless tobacco: Never Used Substance Use Topics ??? Alcohol use: Never Family History Problem Relation Name Age of [...] Tobacco Use ??? Breast Cancer Other Aunt Previous Anesthesia Problems/Concerns: Post-operative nausea & vomiting (PONV) History of PONV Yes Motion sickness: No Review of Systems Cardiovascular: negative for chest pain, chest pressure/discomfort, shortness of breath/dyspnea, syncope. HTN, GA/complaints of chest pain-this was 10 years ago, patient states stress test was negative. She was never told to f/u cardiology Patient was walking 2-3x/week 2 miles, including inclines up until 2 months ago when she had back pain. Patient was able to climb 2 FOS. Respiratory: COVID-19+ 02/2020, not hospitalized. Resolved in 1 week. ,Snoring - Yes, KHARI - Yes Gastrointestinal: positive for reflux symptoms, controlled with medication. Genitourinary:negative. Musculoskeletal: positive for neck pain and back pain with radiculopathy effecting RLE. Cervical and thoracic spondylosis. Neurological: negative Endocrine negative Hepatic: negative Hematologic: Anemia Onc: negative PHYSICAL EXAM BP 134/81 (BP Location: Right arm, Patient Position (BP): Sitting) Pulse 74 Ht 5' 3 (1.6 m) Wt 83.5 kg (184 lb) SpO2 96% No BMI 32.59 kg/m?? Weight: Weight: 83.5 kg (184 lb) (02/25/21 1329) Height: Ht Readings from Last 1 Encounters: 02/25/21 5' 3 (1.6 m) BMI: Body mass index is 32.59 kg/m??. General Appearance: Alert, oriented, no acute distress and obese. Airway: 75% limitation on neck extension; Airway Class: IV (only hard palate visible); Special Considerations None Dentition: good, caps/crowns and upper right permanent bridge. Lungs: clear to auscultation bilaterally, normal respiratory effort Heart: regular rate and rhythm, S1, S2 normal, no murmur, click, rub or gallop Neuro: alert, oriented x 3, no defects noted in general exam. Extremities: extremities normal, atraumatic, no cyanosis or edema LABS No results found for: WBC, MANUALWBC, HGB, HGBPOC, HCT, HCTPOC, PLT, MCV No results found for: NA, K, CL, CO2, CA, BUN, CREAT, GLUCOSE, ANIONGAP, BCRATIO No results found for: INR, PT, PROTIMEPOC No results found for: HCGURPOC, HCGQUALUR, HCGQUAL, HCGQUANT, HCGINTACT EK02/25/21 sinus rhythm, borderline T abnormalities, anterior leads, low voltage, precordial leads Other Studies/Considerations: None Risks/Alternatives discussed. Questions solicited and answered. Yes Postop pain management discussed yes Smoking/Tobacco Counseling: None Recommendations:KHARI precautions or Nausea prophylaxis ATTESTATIONS (Not in a hospital admission) I obtained, updated or reviewed the patient's current medications including dosage, frequency, and route of administration. This information was obtained directly from the patient or sales representative advertising or caregiver or another available healthcare resource and updated in [facility] EMR. Social History Tobacco Use Smoking Status Former Smoker ??? Packs/day: 0.50 ??? Years: 5.00 ??? Pack years: 2.50 ??? Types: Cigarettes ??? Quit date: 1979 ??? Years since quittin.9 Smokeless Tobacco Never Used Patient screened for tobacco use and identified as a Non-User of tobacco. REPORT AND NECESSARY FOLLOW-UP History and physical performed in [facility]; tests (ECG, blood work) reviewed. Abnormal Results Found: no Further Testing or Evaluation Required: no Final [facility] Review: May proceed with procedure/surgery: no, requesting EKG and stress test from [facility]. Patient has never been tested for sleep apnea. Vinita Tovar NP I, Sanya Chavis MD, attest that I have reviewed and agree with the Advanced Practitioner's note - including the history, documented findings, assessment, and plan as documented except where noted. Reasonable to review prior cardiac testing. Otherwise OK to proceed assuming no major findings uponreview Sanya Chavis M.D. Anesthesiologist Zone Phone: [phone] Addendum 02/26/212008 [facility] 07/06/18 EKG- - Final [facility] Review: May proceed with procedure/surgery: YES Vinita Tovar NP WARE RELIABILITY ENGINEER * Charlene-OP - Lyubov Hardy RN - 02/25/2021 1:00 PM CST Images from the original note were not included. ? [facility] Routine Orders Protocol [facility] Approved by: [facility] - Medical Executive Committee Approval Date: 06/27/2020 ORDERS ARE ENTERED ???PER PROTOCOL?? Enter the protocol in the patient's electronic health record using smart phrase: .paceroutineordersprotocol PACE/Anesthesiology Care Screening for Procedures ??? Laboratory exams obtained within 3 months prior to surgery are acceptable if normal, or at baseline. ??? Hematocrit/Hemoglobin (Lzg2202) ??? Cases of expected major blood loss in patients of any age as evidenced by an order for Type andCross or Type and Screen. ??? PT/INR (Lab 320) should be drawn day of surgery ??? Patients taking Warfarin (Coumadin) or who have had Warfarin (Coumadin) discontinued within prior 7 days ??? BMP (Lab15) ??? Patients with: ??? Diabetes ??? Renal disease ??? Dialysis patients: Day of Surgery; If dialysis on day of surgery, Post-dialysis ??? Patients taking the following medications: - Digoxin - Diuretics - Steroids ??? BUN (Tkb654)/ Serum Cr (Lab66) ??? When use of intravenous contrast dye is planned ??? Liver function panel (Lab20) in any patient with: ??? Jaundice, or active liver disease ??? HgbA1c: If result not available from within 3 months of PACE phone or in- person contact, for patients that meet the following conditions: ??? Planned operation is an orthopedic or neurosurgical implant, AND ? ? Either a hx of diabetes or a BMI >35 ??? EKG (EKG) 12 lead EKG- obtained within the last 3 months for the following: ??? Known cardiac disease (CAD, CHF, moderate or worse valvular disease ??? Patients undergoing cardiac, thoracic, or vascular surgery ??? CIED ??? Cardiac Symptoms: Angina, dysrhythmia, palpitations, SOB, PND, S3 ??? Moderate or greater risk surgery with any of the following: Stroke/TIA/CVD, PAD/PVD, CKD (Cr>2), DM, or Drugs or toxins that alter conduction (e.g., digoxin, cocaine, MAOIs, antiarrhythmics, antipsychotics, TCAs) Blood Bank ; For surgical procedures, prepare blood per surgical Blood Bank process unless additional blood orblood products have been ordered by the provider, then follow provider order. *Additional testing maybe indicated based upon patient co-morbidities and planned procedure. Medication Orders ??? Unless otherwise ordered by a member of the [facility] Anesthesiology Staff. 1. STOP a. Seven (7) DAYS PRIOR TO SURGERY: the use of all vitamins, herbal supplements, and other alternative substances. b. Seven (7) DAYS PRIOR TO SURGERY: the use of any UNPRESCRIBED Aspirin, Excedrin and NSAIDs which include Motrin, Ibuprofen, Aleve, and Naprosyn. c. 24 HOURS PRIOR TO PLANNED ARRIVAL AT [facility]: use of angiotensin-converting enzyme (PRISCILLA) inhibitorand angiotensin receptor sarah (ARB). 2. CONTINUE - on usual schedule and take medication day of surgery with sips of water to swallow a. Aspirin and NSAIDS unless specifically instructed by surgeon to discontinue. b. All prescription medicines on routine schedule as prescribed, unless instructed otherwise. WARE RELIABILITY ENGINEER * Charlene-OP - Lyubov Hardy RN - 02/25/2021 1:00 PM CST [facility] Pre-Procedure Instructions PACE PACE Name: Hailee Siegel Age: 65 y.o. Please report to the: [facility] Date of Procedure: 03/13/2021 Date of COVID Test: PATIENT REQUESTED TO HAVE PCR COVID TEST [place] ON 03/10/21- TO HAVE RESULTS FAXED TO DR. PATTON'S OFFICE [phone], PACE [phone] AND BRING HARD COPY OF COMPUTER GENERATED LAB RESULTS ON DAY OF SURGERY Arrive at the time your surgeon's office has instructed. You will receive a call from them 2-4 days prior to your surgery with your arrival time. The decision whether to stay overnight or go home will be made by the attending surgeon. PLEASE NOTIFY your surgeon promptly if you begin to feel ill prior to your surgery. A cold, sore throat, fever, flu or covid symptoms may require postponing the surgery to another date for your safety. Please follow these important instructions PRE-PROCEDURE DIETARY INSTRUCTIONS Follow your surgeon's instructions regarding oral intake prior to your scheduled procedure. If no specific instructions were given from your surgeon's office; below are the guidelines from the anesthesia department: Based on your health history and/or scheduled procedure, the following pre- procedure dietary instructions should be followed: Strict NPO ?? Do not eat food or drink liquids after midnight prior to your procedure. ?? Oral Hygiene: Patients are encouraged to brush teeth, without swallowing, on the day of the procedure. WITHIN 24 HOURS PRIOR TO SURGERY SHOWER AND SHAMPOO 3 days prior to and the morning of surgery. If instructed to do so, please follow the directions on the provided soap or antibacterial soap. ? DO NOT SHAVE near the surgical area for at least 24 hours prior. ?? After showering the morning of surgery, DO NOT APPLY body lotions, deodorants, colognes, lipstick, make-up, hairspray, mousse, gel, or powder. ?? DO NOT WEAR JEWELRY (rings, earrings, and body piercings), wigs, or hair pieces to the hospital. ?? SMOKING AND USE OF TOBACCO PRODUCTS: We recommend patients abstain from smoking for as long as possible before and after surgery, but even quitting for a brief period is still beneficial. DO NOT SMOKE OR USE TOBACCO PRODUCTS on the day of your procedure. DAY OF SURGERY INSTRUCTIONS ?? YOU WILL NEED A RESPONSIBLE ADULT FAMILY MEMBER OR FRIEND WITH YOU UPON DISCHARGE. YOUR SURGERY MAY BE CANCELLED IF YOU DO NOT HAVE A RESPONSIBLE ADULT TO TAKE YOU HOME. It is highly suggested youhave a responsible adult with you overnight after receiving anesthesia. ?? WEAR comfortable, loose fitting clothes to the hospital that will fit over dressings after your surgery. ?? WEAR GLASSES instead of contact lenses to the hospital; bring a case if possible for glasses, dentures, and hearing aids as you will be asked to remove these items before your surgery. ?? BRING your insurance cards and explosives truck driver's license or photo ID. DO NOT BRING VALUABLES or large amounts of smith with you to the hospital. ?? BRING any medical devices you need to the hospital, including remotes for stimulators, CPAP, BIPAP, or WOUND VAC machines. ?? Surgical times are estimates and can vary depending on numerous factors. ?? Expect a minimum post-op recovery of 1 hour. The medical staff will provide updates to family and/or friends as appropriate. ?? For surgical procedures, patient may be allowed two adult visitors. Special considerations may be allowed for pediatric patients under the age of 18 years. ?? Patient and any permitted visitor should arrive to the facility with a mask. If arriving to the facility without a mask, one will be provided. Special considerations may be allowed for pediatric patients under 2 years of age. ?? Patient and visitor will go through facility entry screening. ?? Patient will wear a mask from the time they enter the facility and will remain in a mask until they leave the facility. During your hospital stay you will receive a personal passcode to help protect your health information. This will be a number that you may share with anyone you choose to receive your protected health information (PHI). Family and friends will need to ask for you by name and use the passcode beforeyour care team can share information, either in person or by phone. Please ask those who have your passcode to protect it. ADVANCED PLANNING FOR MEDICATION USE CURRENT MEDICATION LIST Pre-Surgery Instructions Medication Instructions ??? lisinopril-hydroCHLOROthiazide (ZESTORETIC) 20-12.5 mg tablet Do not take day of surgery ??? pantoprazole (PROTONIX) 40 mg Tablet, Delayed Release (E.C.) Continue taking as prescribed ??? trazodone HCl (TRAZODONE ORAL) Continue taking as prescribed ??? fluticasone propionate (FLONASE) 50 mcg/spray Adair, Suspension nasal inhaler Continue taking as prescribed FAQs about Surgical Site Infections What is a Surgical Site Infection (SSI)? A surgical site infection is an infection that occurs after a surgery in the part of the body wherethe surgery took place. Most patients who have surgery do not develop an infection. However, infections develop in about 1 to 3 out of every 100 patients who have surgery. Some of the common symptomsof a surgical site infection are: ??? Redness and pain around the area where you had surgery ??? Drainage of cloudy fluid from your surgical wound ??? Fever Can SSI be treated? Yes. Most surgical site infections can be treated with antibiotics. The antibiotic given to you depends on the bacteria (germs) causing the infection. Sometimes patients with SSI also need another surgery to treat infection. What are some of the things that hospitals are doing to prevent SSIs? To prevent SSIs, doctors, nurses, and other healthcare providers: ??? Clean their hands and arms up to their elbows with antiseptic agent just before the surgery. ??? Clean their hands with soap and water or an alcohol-based hand rub before and after caring for each patient. ??? May remove some of your hair immediately before surgery using electric clippers if the hair is in the same area where the procedure will occur. They should not shave you with a razor. ??? Wear special hair covers, mask, gowns, and gloves during surgery to keep the surgery area clean. Give you antibiotics before your surgery starts. In most cases, you should get antibiotics within 60 minutes before the surgery starts and the antibiotics should be stopped within 24 hours after surgery. ??? Clean the skin at the site of your surgery with a special soap that kills germs What can I do to help prevent SSIs? Before your surgery: ??? Tell your doctor and other medical problems you may have. Health problems such as allergies, diabetes, and obesity could affect your surgery and your treatment. ??? Quit smoking. Patients who smoke get more infections. Talk to your doctor about how you can quit before your surgery. ??? Do not shave near where you will have surgery. Shaving with a razor can irritate your skin and make it easier to develop an infection. At the time of your surgery: ??? Speak up if someone tries to shave you with a razor before surgery. Ask why you need to be shaved and talk with your surgeon if you have any concerns. ??? Ask if you will get antibiotics before surgery. After your surgery: ??? Make sure that your healthcare providers clean their hands before examining you, either with soap and water or an alcohol-based hand rub. If you do not see your providers clean their hands, please ask them to do so. ??? Family and friends who visit you should not touch the surgical wound or dressings. ??? Family and friends should clean their hands with soap and water or an alcohol-based hand rub before and after visiting you. If you do not see them clean their hands, ask them to clean their hands. What do I need to do when I go home from the hospital? Before you go home, your doctor or nurse should explain everything you need to know about taking care of your wound. Make sure you understand how to care for your wound before you leave the hospital. ??? Always clean your hands before and after caring for your wound. ??? Before you go home, make sure you know who to contact if you have questions or problems after you get home. ??? If you have any symptoms of an infection, such as redness and pain at the surgery site, drainage, or fever, call your doctor immediately. If you have additional questions, please ask your doctor or nurse. WARE RELIABILITY ENGINEER * Charlene-OP - Lyubov Hardy RN - 02/25/2021 1:00 PM CST Patient to sign surgical consent on day of surgery, patient contacted surgeon's office states stating there is an additional thoracic level to upcoming procedure to be added. WARE RELIABILITY ENGINEER documented in this encounter Plan of Treatment Upcoming Encounters Date Type Department Care Team (Late st Contact Info) Description 08/24/2024 11:00 AM CDT Video Visit [facility] Physical Med and Rehab [facility] [address] [place] [address] [place] [address] [place] [address] documented as of this encounter Procedures Procedure Name Priority Date/Time Associated Diagnosis Comments EKG 12-LEAD Routine 02/25/2021 2:03 PM SOFTWARE RELIABILITY ENGINEER URINALYSIS WITH REFLEX CULTURE Routine 02/25/2021 1:52 PM SOFTWARE RELIABILITY ENGINEER Cervical spondylosis with radiculopathy CBC WITHOUT DIFFERENTIAL Routine 02/25/2021 1:48 PM SOFTWARE RELIABILITY ENGINEER TYPE AND SCREEN Routine 02/25/2021 1:48 PM SOFTWARE RELIABILITY ENGINEER Cervical spondylosis with radiculopathy BASIC METABOLIC PANEL Routine 02/25/2021 1:48 PM SOFTWARE RELIABILITY ENGINEER Cervical spondylosis with radiculopathy documented in this encounter Results * EKG 12-LEAD (02/25/2021 2:03 PM SOFTWARE RELIABILITY ENGINEER) 02/25/2021 2:03 PM SOFTWARE RELIABILITY ENGINEER Narrative INTERFACE SYSTEM - 02/25/2021 3:47 PM SOFTWARE RELIABILITY ENGINEER ? Stationary ECG Study ? [facility] ? Test Date: ?02/25/2021 2:03 PM Pat Name: ? HAILEE SIEGEL ? Department: ?? 46 ?Room: ? Gender: ? F ?Rapid Extractor Operator: ?? sk : ?1955 ? Requested By: KATHERIN PATTON R Order Number: [id number] ?Reading MD: ?? Jarad Luna ? Measurements Intervals ?Proctor ? Rate: ? 64 ? P: ?26 WA: ? 181 ?QRS: ?22 QRSD: ? 97 ? T: ?23 QT: ? 436 ? QTc: ?450 ? Interpretive Statements ? Sinus rhythm Low voltage, precordial leads Borderline T abnormalities, anterior leads Electronically Signed On 02-25-2021 15:47:03 SOFTWARE RELIABILITY ENGINEER by Jarad Luna Procedure Note Jarad Luna MD - 02/25/2021 Stationary ECG Study [facility] Test Date: 02/25/2021 2:03 PM Pat Name: HAILEE SIEGEL Department: 46 Room: Gender: F Rapid Extractor Operator: sk : 1955 Requested By: KATHERIN Lindsay Order Number: [id number] Reading MD: Jarad Luna Measurements Intervals Proctor Rate: 64 P: 26 WA: 181 QRS: 22 QRSD: 97 T: 23 QT: 436 QTc: 450 Interpretive Statements Sinus rhythm Low voltage, precordial leads Borderline T abnormalities, anterior leads Electronically Signed On 02-25-2021 15:47:03 SOFTWARE RELIABILITY ENGINEER by Jarad Luna Vinitagokul Tovar NP ECG ORDERABLES INTERFACE SYSTEM Refer to clinic/hospital department * URINALYSIS WITH REFLEX CULTURE (02/25/2021 1:52 PM SOFTWARE RELIABILITY ENGINEER) COLOR UA Pale Yellow Pale to Dark Yellow 02/25/2021 3:22 PM SOFTWARE RELIABILITY ENGINEER [facility] - . [facility] CLARITY UA Clear Clear 02/25/2021 3:22 PM SOFTWARE RELIABILITY ENGINEER [facility] - . [facility] SPECIFIC GRAVITY UA 1.009 1.003 - 1.035 02/25/2021 3:22 PM SOFTWARE RELIABILITY ENGINEER [facility] - . [facility] PH UA 6.0 5.0 - 8.0 02/25/2021 3:22 PM SOFTWARE RELIABILITY ENGINEER [facility] - . [facility] LEUKOCYTE ESTERASE UA Negative Negative 02/25/2021 3:22 PM SOFTWARE RELIABILITY ENGINEER [facility] - . [place] NITRITE UA Negative Negative 02/25/2021 3:22 PM SOFTWARE RELIABILITY ENGINEER [facility] - . [place] PROTEIN UA Negative Negative 02/25/2021 3:22 PM SOFTWARE RELIABILITY ENGINEER [facility] - . [facility] GLUCOSE UA Negative Negative 02/25/2021 3:22 PM SOFTWARE RELIABILITY ENGINEER [facility] - . [facility] KETONES UA Negative Negative 02/25/2021 3:22 PM SOFTWARE RELIABILITY ENGINEER [facility] SERVICES - . [facility] UROBILINOGEN UA Normal <2.0 mg/dL 3:22 PM SOFTWARE RELIABILITY ENGINEER [facility] LABOR[facility] SERVICES - [facility] BILIRUBIN UA Negative Negative 02/25/2021 3:22 PM SOFTWARE RELIABILITY ENGINEER [facility] - [facility] BLOOD UA Negative Negative 02/25/2021 3:22 PM SOFTWARE RELIABILITY ENGINEER [facility] - [facility] Urine URINE SPECIMEN OBTAINED BY CLEAN CATCH PROCEDURE / Unknown Collection / Unknown 02/25/2021 1:52 PM SOFTWARE RELIABILITY ENGINEER 02/25/2021 3:09 PM SOFTWARE RELIABILITY ENGINEER Katherin Patton MD URINE ORDERABLES [facility] - [facility] CLIA# [id number] [address] [place] [address] * TYPE AND SCREEN (02/25/2021 1:48 PM SOFTWARE RELIABILITY ENGINEER) ABO GROUP O 02/25/2021 5:26 PM SOFTWARE RELIABILITY ENGINEER [facility] LABORATORY SERVICES -- [facility] RH (D) TYPE Positive 02/25/2021 5:26 PM SOFTWARE RELIABILITY ENGINEER [facility] -- [facility] ANTIBODY SCREEN Negative 02/25/2021 5:26 PM SOFTWARE RELIABILITY ENGINEER [facility] -- [facility] Blood Venipuncture / Unknown 02/25/2021 1:48 PM SOFTWARE RELIABILITY ENGINEER 02/25/2021 3:08 PM SOFTWARE RELIABILITY ENGINEER Katherin Patton MD BLOOD BANK ORDERABLE S Performing Organization Address City/[facility]/ZIP Co de Phone Number [facility] -- [facility] CLIA# [id number] [address] [place] [address] * (ABNORMAL) BASIC METABOLIC PANEL (02/25/2021 1:48 PM SOFTWARE RELIABILITY ENGINEER) SODIUM 138 136 - 145 mmol/L 02/25/2021 3:46 PM SOFTWARE RELIABILITY ENGINEER [facility] LABORATORY SERVICES - [facility] POTASSIUM 3.7 3.5 - 5.0 mmol/L 02/25/2021 3:46 PM SOFTWARE RELIABILITY ENGINEER [facility] LABORATORY SERVICES - [facility] CHLORIDE 102 98 - 107 mmol/L 02/25/2021 3:46 PM SOFTWARE RELIABILITY ENGINEER [facility] CO2 25 22 - 29 mmol/L 02/25/2021 3:46 PM [facility] CALCIUM 9.1 8.6 - 10.2 mg/dL 02/25/2021 3:[address] [facility] - [facility] BUN 19 8 - 23 mg/dL 02/25/2021 3:46 PM [facility] CREATININE 0.97(H) 0.51 - 0.95 mg/dL 02/25/2021 3:46 PM [facility] GLUCOSE 82 74 - 99 mg/dL 02/25/2021 3:46 PM [facility] GFR 58 mL/min/1.7 3 sq meter 02/25/2021 3:46 PM [facility] Comment: eGFR has not been validated for [...] result. GFR, >60 mL/min/1.7 3 sq meter 02/25/2021 3:46 PM [facility] ANION GAP 11 8 - 16 mmol/L 02/25/2021 3:46 PM [facility] Blood Venipuncture / Unknown 02/25/2021 1:48 PM SOFTWARE RELIABILITY ENGINEER 02/25/2021 3:09 PM SOFTWARE RELIABILITY ENGINEER Katherin Patton MD CHEMISTRY ORDERABLES [facility]# [id number] [address] [place] [id number] * CBC WITHOUT DIFFERENTIAL (02/25/2021 1:48 PM SOFTWARE RELIABILITY ENGINEER) WBC 4.7 4.0 - 9.8 K/uL 02/25/2021 3:20 PM SOFTWARE RELIABILITY ENGINEER [facility] - [facility] RBC 4.05 3.90 - 4.90 M/uL 02/25/2021 3:20 PM SOFTWARE RELIABILITY ENGINEER [facility] - [facility] HEMOGLOBIN 11.9 11.8 - 14.8 g/dL 02/25/2021 3:20 PM SOFTWARE RELIABILITY ENGINEER [facility] - . [facility] HEMATOCRIT 37.0 35.5 - 44.0 % 02/25/2021 3:20 PM SOFTWARE RELIABILITY ENGINEER [facility] - . [facility] MCV 91.4 82.0 - 99.0 fL 02/25/2021 3:20 PM SOFTWARE RELIABILITY ENGINEER [facility] - [facility] MCH 29.4 27.2 - 32.6 pg 02/25/2021 3:20 PM SOFTWARE RELIABILITY ENGINEER [facility] - . [facility] MCHC 32.2 31.5 - 35.5 g/dL 02/25/2021 3:20 PM SOFTWARE RELIABILITY ENGINEER [facility] - [facility] PLATELETS 175 140 - 350 K/uL 02/25/2021 3:20 PM SOFTWARE RELIABILITY ENGINEER [facility] - . [facility] MPV 10.0 9.3 - 12.4 fL 02/25/2021 3:20 PM SOFTWARE RELIABILITY ENGINEER [facility] - . [facility] RDW 12.9 11.5 - 14.5 % 02/25/2021 3:20 PM SOFTWARE RELIABILITY ENGINEER [facility] - . [facility] RDW-STDEV 42.6 37.1 - 48.7 fL 02/25/2021 3:20 PM SOFTWARE RELIABILITY ENGINEER [facility] - [facility] Blood Venipuncture / Unknown 02/25/2021 1:48 PM SOFTWARE RELIABILITY ENGINEER 02/25/2021 3:09 PM SOFTWARE RELIABILITY ENGINEER Vinita Tovar DIGITAL COMMUNICATIONS MANAGER HEMATOLOGY ORDERABLE S [id number] [address] [place] [id number] documented in this encounter Visit Diagnoses Diagnosis Cervical spondylosis with radiculopathy Cervical spondylosis with myelopathy documented in this encounter Care Teams Globe Cleaner Relationship Specialty Start Date End Date Huang Alonso MD [address] [place] [address] PCP - General Family Practice 10/03/13 05/06/22 documented as of this encounter
--- OUTSIDE RECORDS SUMMARY | 2024-04-13 08:45 | XMS_ITS | Encounter Summary ---
Author Organization [facility] Address [address] [place] [address] Care Team Providers Care Director Medical Writing Name Role Phone Huang Alonso MD Primary Care Provider [phone] Encounter Details Date Type Department Care Team (Latest Contact Info) Description 10/03/2013 4:00 PM CDT - 10/03/2013 11:59 PM CDT Hospital Encounter [facility] Imaging Services Medical [place] A [address] [place] [phone] Naresh Larios MD [address] [address] [address] -x0 (Work) Discharge Disposition: Home [...] Med and Rehab - [facility] [address] [place] [address] [place] [address] [place] [address] documented as of this encounter Procedures Procedure Name Priority Date/Time Associated Diagnosis Comments XR LUMBAR SPINE BEND ONLY 2 OR 3 VW Routine 10/03/2013 4:12 PM CDT Neuralgia, neuritis, and radiculitis, unspecified documented in this encounter Results * XR LUMBAR SPINE BEND ONLY 2 OR 3 VW (10/03/2013 4:12 PM CDT) Anatomical Region Laterality Modality Spine Computed Radiogr aphy 10/03/2013 4:11 PM CDT Impressions 10/05/2013 7:26 AM CDT IMPRESSION: Disc degeneration greatest at L3-L4 with associated minimal retrolisthesis. No definite instability. Dictated from [facility] Narrative 10/05/2013 7:26 AM CDT EXAM : XR LUMBAR SPINE BEND ONLY 2 OR 3 VIEWS DATE: Oct 03, 2013 04:12:19 PM INDICATION: ??Neuralgia, neuritis, and radiculitis, unspecified TECHNIQUE: Flexion and extension lateral radiographs FINDINGS: There is advanced disc degeneration at L3-L4 with loss of disc space and endplate sclerosis with osteophytes. There is milder disc degeneration at L2-L3. Minimal retrolisthesis at L3-L4 measures a couple millimeters and does not appear significantly different between flexion and extension. Procedure Note Aneudy Portillo MD - 10/05/2013 EXAM : XR LUMBAR SPINE BEND ONLY 2 OR 3 VIEWS DATE: Oct 03, 2013 04:12:19 PM INDICATION: Neuralgia, neuritis, and radiculitis, unspecified TECHNIQUE: Flexion and extension lateral radiographs FINDINGS: There is advanced disc degeneration at L3-L4 with loss of disc space and endplate sclerosis with osteophytes. There is milder disc degeneration at L2-L3. Minimal retrolisthesis at L3-L4 measures a couple millimeters and does not appear significantly different between flexion and extension. IMPRESSION IMPRESSION: Disc degeneration greatest at L3-L4 with associated minimal retrolisthesis. No definite instability. Dictated from [facility] Naresh Larios MD DIAGNOSTIC IMAGING O RDERABLES documented in this encounter Visit Diagnoses Diagnosis Neuralgia, neuritis, and radiculitis, unspecified documented in this encounter Care Teams Director Medical Writing Relationship Specialty Start Date End Date Huang Alonso MD [address] [place] [address] PCP - General Family Practice 10/03/13 05/06/22 documented as of this encounter
--- OUTSIDE RECORDS SUMMARY | 2024-04-13 08:45 | XMS_ITS | Continuity of Care Document ---
Author Organization [facility] Address [address] [place] [address] [place] [address] Phone Care Team Providers Care Financial Brokers Name Role Phone Isaak Davis MD Unavailable Unavailable Procedures Procedure Date Office/outpatient Visit, [facility] Advance Directives Directive Yes / No Effective Date File Name No Information Encounters Encounter Description Practice Location Reason(s) For Visit Diagnoses Date Provider Providers Copied on Encounter Office/outpat ient Visit, [facility], [address] [place] [address] [address], [place], [place], [id number], [place] tel:[phone] [facility] Professional No Information 6-200 7 Susan Mulligan. [address] [facility] [address], [place], [place], [id number], [place]. tel:[phone] Family History Family Member Type Diagnosis Age At Onset No Information Payers Payer name Insurance type Covered alliance party ID Authoriza tinova(s) [facility] CI [id number] Social History Type Description Quantity Date Captured Comments Sex Female Smoking Status No Information Chief Complaint And Reason For Visit No Information Reason For Referral Reason For Referral No Information History Of Present Illness Encounter Date Complaint History Of Prese nt Illness No Information Functional Status Date Functional Assessmen t No Information Instructions Date Instruction Additional Infor mation No Information Assessments Type Assessment Date No Information Patient Care Teams Name Effective Dates (start - stop) Status Members No Information
--- OUTSIDE RECORDS SUMMARY | 2024-04-13 08:45 | XMS_ITS | Encounter Summary ---
Author Organization [facility] Address [address] [place] [address] Care Team Providers Care Orthopaedic General Name Role Phone Huang Alonso MD Primary Care Provider [phone] Reason for Visit * Reason Onset Date Comments Results 02/20/2021 Encounter Details Date Type Department Care Team (Late st Contact Info) Description 02/20/2021 Telephone [facility] - [facility] [address] [address] Naresh Larios MD [address] [place] [address] -x0 (Work) Results Social History Tobacco Use Types Packs/Day [...] COVID-19? No / Unsure 02/17/2021 3:27 PM FURNITURE DELIVERY DRIVER documented as of this encounter Miscellaneous Notes * Telephone Encounter - Christine Cottrell - 02/20/2021 4:01 PM CST Images from the original note were not included. I reviewed mri and she does have cord compression at T2/3 Christine, we need to add a T2/3 laminectomy to her cases scheduled for mar 13 I d/w her and she wants to proceed Message text Ermelinda Roger PA routed conversation to Naresh Larios MD Yesterday (12:56 PM) Hailee Tanner Thomas R, MD Yesterday (11:53 AM) DF Any update on my latest MRI? Concerned with the numbness in my leg. ?? Thank you ITURE DELIVERY DRIVER documented in this encounter Plan of Treatment Upcoming Encounters Date Type Department Care Team (Late st Contact Info) Description 08/24/2024 11:00 AM CDT Video Visit [facility] Physical Med and Rehab - [facility] [address] [place] [phone] [place] [address] [place] [address] documented as of this encounter Visit Diagnoses Not on filedocumented in this encounter Care Teams Orthopaedic General Relationship Specialty Start Date End Date Huang Alonso MD [address] [place] [address] PCP - General Family Practice 10/03/13 05/06/22 documented as of this encounter
--- OUTSIDE RECORDS SUMMARY | 2024-04-13 08:45 | XMS_ITS | Encounter Summary ---
Author Organization [facility] Address [address] [place] [address] Care Team Providers Care General Counsel Name Role Phone Huang Alonso MD Primary Care Provider [phone] Encounter Details Date Type Department Care Team (Late Contact Info) Description 01/08/2021 Abstract [facility] Neurosurgery - [facility] [address] [address] Naresh Larios MD [address] [place] [address] -x0 (Work) Social History Tobacco Use Types Packs/Day Years Used Date Smoking Tobacco: Former Cigarettes Q uit: 1979 Sex and Gender Information Value Date Recorded [...] Med and Rehab - [facility] [address] [place] [phone] [place] [address] [place] [address] documented as of this encounter Visit Diagnoses Not on filedocumented in this encounter Care Teams General Counsel Relationship Specialty Start Date End Date Huang Alonso MD [address] [place] [address] PCP - General Family Practice 10/03/13 05/06/22 documented as of this encounter
--- OUTSIDE RECORDS SUMMARY | 2024-04-13 08:45 | XMS_ITS | Encounter Summary ---
Author Organization [facility] Address [address] [place] [address] Care Team Providers Care Tool Design Engineer Name Role Phone Huang Alonso MD Primary Care Provider [phone] Reason for Referral * MRI (Routine) - Closed Specialty Diagnoses / Procedures Referred By Contac t Referred To Contact Diagnoses Neck pain Thoracic spondylosis with cord compression Procedures MRI THORACIC WO CONTRAST Nusrat Nickerson PA [address] [facility] [address] [place] [address] Referral ID Status Reason Start Date Expiration Date V isits Requested Visits Authorized [id number] Closed [facility] CTS 02/12/2021 03/15/2022 1 1 Reason for Visit * Reason Comments Consult Neck pain. Last seen in 2013. Encounter Details Date Type Department Care Team (Latest Contact Info) Description 02/12/2021 9:00 AM CDT Office Visit [facility] Neurosurgery - Medical [place] [address] [facility] [address] [place] [phone] Naresh Larios MD [address] [facility] [address] [place] [address] -x0 (Work) Neck pain (Primary Dx); Cervical spondylosis with radiculopathy; Thoracic spondylosis with cord compression Social History [...] Sign Reading Time Taken Comments Blood Pressure 122/80 02/12/2021 8:51 AM CDT Pulse 71 02/12/2021 8:51 AM CDT Temperature 36.7 ??C (98.1 ??F) 02/12/2021 8:51 AM CD T Respiratory Rate - - Oxygen Saturation - - Inhaled Oxygen Concentration - - Weight 84.4 kg (186 lb) 02/12/2021 8:51 AM CDT Height 159 cm (5' 2.6 ) 02/12/2021 8:51 AM CDT Body Mass Index 33.37 02/12/2021 8:51 AM CDT documented in this encounter Progress Notes * Naresh Larios MD - 02/12/2021 9:12 AM CDT [facility] Neurosurgery H&P Patient Name: Hailee Tanner : 1955 Date of Service: 02/12/2021 Subjective: Chief Complaint: Chief Complaint Patient presents with ??? Consult Neck pain. Last seen in 2013. History of Present Illness: Hailee is a 65 y.o. female who presents [...] L'hermittes sign, and no left arm symptoms. Conservative treatments tried include Naprosyn, TENS unit, steroid pack/. Past neurosurgical history includes no prior spine surgeries. Patient Active Problem List Diagnosis Code ??? Neck pain M54.2 ??? Cervical spondylosis with radiculopathy M47.22 ??? Thoracic spondylosis with cord compression M47.14 Past Medical History: Diagnosis Date ??? Abnormal stretch lennie ??? Depressed immune system Patient is unsure if this is accurate. ??? Dizziness ??? Facial pain Intermittent ??? Fatigue ??? GERD (gastroesophageal reflux disease) Difficulty taking NSAIDs. ??? Headache ??? Heart attack Possible heart attack years ago ??? Heartburn ??? High blood pressure ??? History of anemia ??? HTN (hypertension) ??? Light Sensitivity ??? Low back pain ??? Muscle ache ??? Muscle twitching Legs ??? Neck pain ??? Night sweats ??? Palpitations ??? Postoperative nausea ??? Ringing in ears ??? Sleep apnea Patient is unsure if this is accurate. ??? Weakness Past Surgical History: Procedure Laterality Date ??? HX MENISCECTOMY Right N/A Family History [...] Tobacco Use ??? Smoking status: Former Smoker Types: Cigarettes Quit date: 1980 Years since quittin.8 ??? Smokeless tobacco: Never [...] needed. ??? fluticasone propionate (FLONASE) 50 mcg/spray [place], Suspension nasal inhaler Administer 2 Sprays in each nostril daily. No current facility-administered medications on file prior to visit. Review of Systems: Review of Systems Constitutional: [...] suicidal ideas. The patient is not nervous/anxious. Objective: Physical Exam: BP 122/80 (BP Location: Left [...] Appropriate to circumstances, normal mood and affect Neurological Exam: Neurologic Exam Mental Status Oriented to person, place, and time. Follows 2 step commands. Attention: normal. Concentration: normal. Speech: speech is normal Level of consciousness: alert Normal comprehension. Cranial Nerves CN III, IV, Pupils are equal, round, and reactive to light. Extraocular motions are normal. CN V Facial sensation intact. CN VII Facial expression full, symmetric. CN VIII CN VIII normal. CN XI CN XI normal. CN XII CN XII normal. Motor Exam Overall muscle tone: normal Strength Strength 5/5 except as noted. Sensory Exam Light touch normal. Pinprick normal. Gait, Coordination, and Reflexes Gait Gait: normal Reflexes Right brachioradialis: 1+ Left brachioradialis: 1+ Right biceps: 1+ Left biceps: 1+ Right triceps: 1+ Left triceps: 1+ Right patellar: 1+ Left patellar: 1+ Right achilles: 1+ Left achilles: 1+ Right administrative staff supervisor: 1+ Left administrative staff supervisor: 1+ Right plantar: normal Left plantar: normal Right Penny: absent Left Penny: absent Right ankle clonus: absent Left ankle clonus: absent Labs: No results found for: WBC, HGB, HCT, PLT, NA, K, INR No results found for: URINELEUKOC, NITRITEUA, KETONEURINE, BLOODUA, WBCU, WBCURINE, RBCUA, BACTERIAUA, UREPITHELIAL No results found for: CA, ROXK356, VITD25, DVYN27WMV5, QPNB39AWH3, [id number], [id number], [id number], VITAMINDTO, [id number], TSH No components found for: NICU, COTU, NICS, COTS Imaging Studies: I dependently reviewed cervical MRI [...] T2 signal increase in the spinal cord. Assessment and Plan: ICD-10-CM ICD-9-CM 1. Neck pain M54.2 723.1 2. Cervical spondylosis with radiculopathy M47.22 721.0 3. Thoracic spondylosis with cord compression M47.14 721.41 Impression: 65-year-old female with neck and right arm pain and posterior headaches, found to have cervical spondylosis with disc osteophytes causing severe right C4-5 NFS and stenosis at C5-6, She also has disc herniation at T2-3 with severe stenosis/cord compression Plan: Discussed MRI results with the patient, I explainedshe would benefit from an ACDF at C4 -5, 5-6; however, we also need to evaluate the T2-3 disc herniation with cord compression better with a dedicated thoracic MRI. Unfortunately her prior MRI cut off views to see this fully. We will scheduleher for surgery and get the MRI in the meantime, we may decide to do an ACDF and a posterior decompression at T2-3 at the same time. I will go over the results with her once MRI has been done. I have reviewed the risks of surgery with the patient including, but not limited to, infection, bleeding, coma, stroke, seizure, , and need for further surgery in the future. The patient understands these risks and wishes to proceed with surgery. Follow up: surgery ACDF C4-6 and possibly T2-3 posterior decompression pending Thoracic MRI results This patient was seen jointly by Naresh Larios MD and transcribed by Nusrat Nickerson PA-C. This dictation was completed using [employer] Speaking Software. Finance Consultant variances may occur. documented in this encounter Plan of Treatment Upcoming Encounters Date Type Department Care Team (Late st Contact Info) Description 08/24/2024 11:00 AM CDT Video Visit [facility] Physical Med and Rehab - [facility] [address] [place] [address] [place] [address] [place] [address] documented as of this encounter Results * MRI THORACIC WO CONTRAST (02/17/2021 4:02 PM RESOURCE ECONOMIST) Anatomical Region Laterality Modality Spine Magnetic Resonan ce 02/17/2021 4:02 PM RESOURCE ECONOMIST Impressions 02/17/2021 6:12 PM RESOURCE ECONOMIST IMPRESSION: 1. Severe central spinal canal stenosis [...] cord. DICTATION LOCATION: Location 1 - [facility] Narrative 02/17/2021 6:12 PM RESOURCE ECONOMIST MRI THORACIC WITHOUT CONTRAST DATE: ??02/17/2021 4:02 [...] cord. DICTATION LOCATION: Location 1 - [facility] Nusrat AGUAYO MR ORDERABLES documented in this encounter Visit Diagnoses Diagnosis Neck pain- Primary Cervicalgia Cervical spondylosis with radiculopathy Cervical spondylosis with myelopathy Thoracic spondylosis with cord compression Spondylosis with myelopathy, thoracic region Neck pain Cervicalgia Thoracic spondylosis with cord compression Spondylosis with myelopathy, thoracic region documented in this encounter Care Teams Tool Design Engineer Relationship Specialty Start Date End Date Huang Alonso MD [address] [place] [address] PCP - General Family Practice 10/03/13 05/06/22 documented as of this encounter
--- OUTSIDE RECORDS SUMMARY | 2024-04-13 08:45 | XMS_ITS | Encounter Summary ---
Author Organization [facility] Address [address] Pablo: [place] [address] Care Team Providers Care Tubing Mill Setter Name Role Phone Huang Alonso MD Primary Care Provider [phone] Encounter Details Date Type Department Care Team (Latest Contact Info) Description 02/25/2021 Travel Social History Tobacco Use Types Packs/Day [...] COVID-19? No / Unsure 02/25/2021 1:31 PM CHILD CARE PROVIDER documented as of this encounter Plan of Treatment Upcoming Encounters Date Type Department Care Team (Late st Contact Info) Description 08/24/2024 11:00 AM CDT Video Visit [facility] Physical Med and Rehab - Re[facility] [address] [place] [address] [place] [address] [place] [address] documented as of this encounter Visit Diagnoses Not on filedocumented in this encounter Care Teams Tubing Mill Setter Relationship Specialty Start Date End Date Huang Alonso MD [address] [place] [address] PCP - General Family Practice 10/03/13 05/06/22 documented as of this encounter
--- OUTSIDE RECORDS SUMMARY | 2024-04-13 08:45 | XMS_ITS | Encounter Summary ---
Author Organization [facility] Address [address] [place] [address] Care Team Providers Care Position Classification Manager Name Role Phone Huang Alonso MD Primary Care Provider [phone] Encounter Details Date Type Department Care Team (Late Contact Info) Description 01/21/2021 Abstract [facility] Neurosurgery - [facility] [id number] [place] [address] Naresh Larios MD [address] [address] [address] -x0 (Work) Social History Tobacco [...] [facility] [address] [place] [phone] [place] [address] [place] [address] documented as of this encounter Visit Diagnoses Not on filedocumented in this encounter Care Teams Position Classification Manager Relationship Specialty Start Date End Date Huang Alonso MD [address] [place] [address] PCP - General Family Practice 10/03/13 05/06/22 documented as of this encounter
== END 2024-04-06 07:41 | disposition home or self-care (01) ==
PROVIDERS: PCP Family Medicine
DX: M47.22 Other spondylosis with radiculopathy, cervical region (principal); Z98.1 Arthrodesis status; M47.814 Spondylosis without myelopathy or radiculopathy, thoracic region; M47.816 Spondylosis without myelopathy or radiculopathy, lumbar region
CPT/HCPCS: 72125; 72128; 72131

== ENCOUNTER 2024-07-07 09:12 | Emergency (ER) | payer MEDICARE, SELFPAY ==
--- NOTE | ~2024-07-07 | CT_ITS ---
EXAMINATION: CT BRAIN W/O DATE: 07/07/2024 09:48 INDICATION: Headache and vision changes. Hypertension. TECHNIQUE: Computed tomography (CT) of the head was performed without intravenous contrast. The dose- length product was 605.33 mGy-cm. Automated exposure control and iterative reconstruction technique w ere employed. COMPARISON: CT dated 08/11/2023 FINDINGS: Normal brain parenchymal volume for age. Normal salguero-white differentiation. No acute intrac ranial hemorrhage, infarction, mass or mass effect. No ventriculomegaly or midline shift. Midline sagittal images demonstrate a normal corpus callosum, c raniovertebral junction and sella turcica. Basilar cisterns are patent. Paranasal sinuses and mastoids are pneumatized. No depressed skull fractures. IMPRESSION: 1. No acute intracranial abnormality. Reviewed, dictated and finalized at location A.
[2024-07-07 09:27] VITALS: BP 188/98; PULSE 77; RESP 15; TEMP 36.6; O2SAT 99
--- OUTSIDE RECORDS SUMMARY | 2024-07-07 09:40 | XMS_ITS | Clinical Summary ---
Author Organization [facility] Address [address] [place] [address] Phone Care Team Providers Care Treasurer Name Role Phone Bhargav Wilkes MD Primary Care Provider Allergies Active Allergy Reactions Criticality Noted Date Comments Codeine Nausea and Vomiting Low 01/08/2021 Oxycodone Nausea and Vomiting Low 12/17/2020 Medications pantoprazole (PROTONIX) 40 mg Tablet, Delayed Release (E.C.) Take 1 Tablet (40 mg) by mouth daily before breakfast. 30 Tablet 2 Active traZODone (DESYREL) 50 mg tablet Take 1 Tablet (50 mg) by mouth daily at bedtime. 30 Tablet 2 Active Miscellaneous Medical SupplyIndicatio ns:Bilateral leg pain Compression stocking with a zipper 1 Each 3 Active pregabalin (Lyrica) 75 mg Capsule Take 1 Capsule (75 mg) by mouth every 8 hours. 90 Capsule 3 3 Active baclofen (LIORESAL) 10 mg tablet TAKE 2 TABLETS BY MOUTH FOUR TIMES DAILY 720 Tablet 3 4 Active pregabalin (LYRICA) 75 mg CapsuleIndicati ons:Thoracic spondylosis with cord compression TAKE 1 CAPSULE(75 MG) BY MOUTH EVERY 8 HOURS 270 Capsule 3 4 Active furosemide (LASIX) 20 mg tablet Take 20 mg by mouth 1 time daily as needed. Active amitriptyline (ELAVIL) 25 mg tablet TAKE 1 TABLET(25 MG) BY MOUTH DAILY AT BEDTIME 90 Tablet 6 4 Active diazePAM (VALIUM) 5 mg tabletIndicatio ns:Brown-Sequar d syndrome (CMS/HCC) Take 1 Tablet (5 mg) by mouth nightly as needed for Spasm. 30 Tablet 3 4 Active brace / splint Biones L300 go Left foot drop 1 Each 5 06/14/19 25 Active Problems Problem Noted Date Diagnosed Date Grief 09/22/2023 Anger 09/22/2023 Neck pain 02/12/2021 Cervical spondylosis with radiculopathy 02/13/20 21 Cord compression 02/12/2021 Neurological deficit present Brown-Sequard syndrome Urinary retention HTN (hypertension) GERD (gastroesophageal reflux disease) Overview (03/27/2021): Difficulty taking NSAIDs. Arthritis Resolved Problems Problem Noted Date Diagnosed Date Resolved Date Hyponatremia 09/22/2023 Encounters Date Type Department Care Team Description 06/22/2024 Abstract [facility] Physical Med [facility] [address] [place] [phone] Be Rangel DO 05/04/2024 Orders Only [facility] Physical [facility] [address] [place] [phone] Be Rangel DO Brown-Sequard syndrome (CMS/HCC) (Primary Dx); Cord compression (CMS/HCC); Cervical spondylosis with radiculopathy 05/01/2024 Abstract [facility] Physical [facility] [address] [place] [phone] Be Rangel DO 04/25/2024 External Device Data STL ABSTRACTION Provider, Abstract from Last 3 Months Immunizations Immunization Administration Dates Next Due ([employer])(12 YR UP) COVID-19 VACCINE - EMERGENCY USE AUTHORIZATION, MRNA, [id number](PF) 30 MCG/0.3 ML IM SUSP 02/14/2021,06/16/2020,05/25/2020 Family [...] drink = 0.6 oz pur e alcohol) Comments No Sex and Gender Information Value Date Recorded Sex Assigned at Not on file Legal Sex Female 3:54 PM CDT Gender Identity Not on file Sexual Orientation Not on file Last Filed Vital Signs Vital Sign Reading Time Taken Comments Blood Pressure 136/89 01/28/2022 12:58 PM CDT Pulse 76 01/28/2022 12:58 PM CDT Temperature 36.7 C (98.1 F) 01/28/2022 12:58 PM CDT Respiratory Rate 16 04/18/2021 5:05 AM [employer] Oxygen Saturation 95% 04/18/2021 5:05 AM [employer] Inhaled Oxygen Concentration - - Weight 86.2 [...] [facility] [address] [place] [address] [place] [address] [place] [phone] Health Maintenance Due Date Last Done Comments Pre-Diabetes and Diabetes Screening 1955 COLORECTAL SCREENING 2000 Colorectal Cancer Screening 2000 FIT-DNA Q 3 years 2000 FIT/FOBT Q 1 year 2000 Flex Sig/CT Colonography Q 5 years 2000 BREAST CANCER SCREENING 01/29/2023 01/30/20 22, 01/29/2022, 01/29/2022, Additional history exists INFLUENZA VACCINE (#1) 2023 3, 12/25/2021, 02/24/2021, Additional history exists DTAP/TDAP/TD VACCINES (2 - T d or Tdap) 11/12/2023 11/11/2013 COVID-19 Vaccine (2023-2 5 season) 2023 02/14/2021, 06/16/2020, 05/25/2020 RSV VACCINE (60+ or ) (1 - 1-dose 75+ series) 2030 PNEUMOCOCCAL VACCINE 50+ YEARS Completed 05/04/2022 ZOSTER VACCINE Completed 05/04/2022, 12/25/2021 OSTEOPOROSIS SCREENING Completed 01/06/2024 Medical Devices Implanted Type Area Transmission Tester Device Identifier Shelf Expiration Date Model / Serial / Lot Hemostatic Surgiflo 8ml W/ Thrombin 2994 - [id number] Implanted:Qt y: 1 on 03/13/2021 by Naresh Larios MD at [facility] Hemostatic N/A: Spine Cervical Anterior [employer] [id number] 06/09/2022 [id number] / / [id number] Acp Plate 1.6 2 Level 38 Mm Implanted:Qt y: 1 on 03/13/2021 by Naresh Larios MD at [facility] Plate N/A: Spine Cervical Anterior [employer] [id number] / / 15 Mm Variable Screws Self Drilling Implanted:Qt y: 6 on 03/13/2021 by Naresh Larios MD at [facility] Screw N/A: Spine Cervical Anterior [employer] [id number] / / Description:All Nuvasive cer vical hardware was processed on requisition,[id number]. Allograft Triad Cc Cerv [id number] - [id number] Implanted:Qt y: 1 on 03/13/2021 by Naresh Larios MD at [facility] Tissue N/A: Spine Cervical Anterior [employer] 05/08/2025 [id number] / [id number] / Allograft Triad Cc Cerv [id number] - [id number] Implanted:Qt y: 1 on 03/13/2021 by Naresh Larios MD at [facility] Tissue N/A: Spine Cervical Anterior [employer] 06/20/2025 [id number] / [id number] / Insurance MEDICARE PART A AND B [employer] MEDICARE SUPP AESSI Advance Directives For more information, please contact: [phone] * Full Code (Latest Code Status on File) Date Activated Date Inactivated Comments 03/27/2021 10:47 PM 04/18/2021 3:52 PM * Full Code Date Activated Date Inactivated Comments 03/13/2021 6:27 PM 03/27/2021 10:45 PM * Full Code Date Activated Date Inactivated Comments 03/13/2021 1:16 PM 03/13/2021 6:27 PM * Full Code Date Activated Date Inactivated Comments 03/13/2021 10:32 AM 03/13/2021 1:16 PM Care Teams Treasurer Relationship Specialty Start Date End Date Bhargav Wilkes MD [address] [phone] PCP - General Family Practice 05/07/22
--- OUTSIDE RECORDS SUMMARY | 2024-07-07 09:40 | XMS_ITS | Clinical Summary ---
Author Organization [facility] Address [address] [place] [address] Care Team Providers Care Handling Tech Name Role Phone Unavailable Primary Care Provider Unavailabl e Source Comments [facility],non-owned Affiliates and Associated Physician Practices is amultiple site organization consisting of ambulatory clinics and hospital sitesin [place], [place], [place] and [place]. This disclosure is being madepursuant to the Care Everywhere program and may not contain all information available regarding this patient. Last updated 17.[employer] Allergies Active Allergy Reactions Criticality Noted Date [...] mutation is less than 3 %. 06/05/2019 Adenios CDX BRCA with reflex to Adenios Antonette sent on patient's sister Abril Syed (06/[birth year]/46) (judit): BRCA neg, panel negative. [employer] panel genetic testing after 06/01/2018 includes: APC, ISSA, AXIN2, BARD1, BMPR1A, BRCA1, BRCA2, BRIP1, CDH1, CDK4, CDKN2A, CHEK2, EPCAM (large rearrangement only), GALNT12, GREM1, MLH1, MSH2, MSH3, MSH6, MUTYH, NBN, NTHL1, PALB2, PMS2, POLD1, POLE, PTEN, RAD51C, RAD51D, RNF43, RPS20, SMAD4, STK11, TP53. Family History Medical History Relation Name Comments Cancer - Lung Father Cancer - Renal Father Cancer - Other Mother Unknown type female cancer Cancer - Breast Paternal Aunt Vinita in her 70s Cancer - Lung Paternal Grandfather i n his 70s Cancer - Breast Sister Abril Syed Adenios MyR isk neg. [place] pt Relation Name [...] FLEX SIG - COLON CA SCREENING 1955 MEDICARE AWV 12 MONTHS 1955 HEPATITIS C SCREENING 04/04/1973 DTAP/TDAP/TD VACCINES (1 - Tdap) 1974 PNEUMOCOCCAL VACCINE 50+ (1 of 1 - PCV) 2005 ZOSTER VACCINE (1 of 2) 2005 SCREENING FOR DIABETES 01/29/2022 COVID-19 VACCINE (4 - 2023- season) 2023 02/14/2021, 06/16/2020, 05/25/2020 INFLUENZA VACCINE (#1) 2023 MAMMOGRAM 01/30/2024 01/29/2022, 11/10, 11/06/2020, Additional history exists DEPRESSION SCREENING 04/12/2024 LIPID TESTING 03/17/2026 03/17/2021, 1208/2020, 03/15/2021, Additional history exists Respiratory Syncytial Virus (RSV) [...] patient's age to complete this topic MENINGOCOCCAL (Group B) VACCINE SHARED DECISION-MAKING Aged Out No longer eligible based on patient's age to complete this topic MENINGOCOCCAL GROUPS A/C/Y/W VACCINE Aged Out No longer eligible based on [...] CDT Impressions 01/29/2022 12:24 PM CDT IMPRESSION: No mammographic evidence of malignancy. RECOMMENDATION: Routine 1 Year Screening OVERALL ASSESSMENT: (1) Negative. In the absence of clinical findings routine screening mammography is advised. > Interpreting Provider: Rosemarie Jiménez MD on 01/29/2022 12:24 PM Narrative 01/29/2022 12:24 PM CDT EXAMINATION: DIGITAL MAMMO BILAT SCREENING W SMITH DATE: 01/29/2022 HISTORY: Screening. COMPARISON: 11/06/2020 TECHNIQUE: Bilateral synthetic 2-D (C-view) digital mammogram images and bilateral digital breast tomosynthesis were obtained in the craniocaudal and mediolateral oblique projections. Computer-aided detection (CAD) was utilized. BREAST PARENCHYMAL COMPOSITION: Category C: The breasts are heterogeneously dense which may obscure small masses. FINDINGS: No suspicious microcalcifications, focal dominant masses, or areas of architectural distortion on mammography. Lesli Spain MD MAMMO ORDERABLES from Last 3 Months or Most Recently Relevant to Health Maintenance Hailee Tanner Personal/Family Self 1955 [address] [phone]
--- OUTSIDE RECORDS SUMMARY | 2024-07-07 09:41 | XMS_ITS | Clinical Summary ---
Author Organization [facility] Address [id number] [place] [phone] Care Team Providers Care Web Content & Social Media Manager Name Role Phone Bhargav Wilkes MD Primary Care Provider Be Rangel DO Unavailable [phone] Allergies Active Allergy Reactions Criticality Noted Date Comments Codeine Stomach upset Low 10/15/2017 Oxycodone Nausea And Vomiting Low 12/17/2020 Medications cranberry fruit 400 mg tablet Take 1 tablet by mouth daily Active baclofen (LIORESAL) 10 mg tablet TAKE 2 TABLETS BY MOUTH 4 TIMES DAILY 03/10/20 22 Active polyethylene glycol (MIRALAX) 17 gram/dose powder 09/02/19 22 Active cholecalcifero l (VITAMIN D-3) 1,000 unit capsule Take 1 capsule (1,000 Units total) by mouth daily Active cyanocobalamin (Vitamin B-12) 100 mcg tabletIndicati ons:Prevention of Vitamin B12 Deficiency Take 1 tablet (100 mcg total) by mouth daily Active ascorbic acid (VITAMIN C) 500 mg tablet,chewabl e Active folic acid (FOLVITE) 800 mcg tablet Take 0.5 tablets (400 mcg total) by mouth daily Active calcium carbonate-muriel min D3 1,250 mg (500 mg elemental)-400 unit chewable tablet Take 1 tablet by mouth daily Active pregabalin (Lyrica) 75 mg capsule 2 (two) times a day Active furosemide (LASIX) 20 mg tablet Take 1 tablet (20 mg total) by mouth daily as needed Active pantoprazole DR (PROTONIX) 40 mg EC tablet Take 1 tablet (40 mg total) by mouth early head start director before breakfast 90 tablet 1 08/30/19 Active aspirin 81 mg enteric coated tablet Take 1 tablet (81 mg total) by mouth daily Active diazePAM (VALIUM) 5 mg tablet Take 1 tablet (5 mg total) by mouth nightly as needed 03/31/20 Active busPIRone (BUSPAR) 5 mg tabletIndicati ons:Generalize d Anxiety Disorder Take 1 tablet (5 mg total) by mouth 3 (three) times a day 90 tablet 1 06/05/19 25 026 Active phentermine 15 mg capsuleIndicat ions:Weight Loss Management for Obese Patient (BMI >= 30) Take 1 capsule (15 mg total) by mouth every morning 30 capsule 07/05/19 25 Active docosahexaenoi c acid/epa (FISH OIL ORAL) Take by mouth 025 Discontinued amitriptyline (ELAVIL) 25 mg tablet TAKE 1 TABLET(25 MG) BY MOUTH DAILY AT BEDTIME 12/21/19 24 025 Discontinued phentermine 15 mg capsule TAKE 1 CAPSULE(15 MG) BY MOUTH EVERY MORNING 30 capsule 05/03/19 25 025 Discontinued(Re order) Active Problems Problem Noted Date Diagnosed Date Anxiety 04/10/2024 Stage 3a chronic kidney disease 04/10/2024 Adnexal mass 04/10/2024 Class 2 obesity with alveola r hypoventilation, serious comorbidity, and body mass index (BMI) of 38.0 to 38.9 in adult 01/04/2024 Overview (01/04/2024): improving continuing phentermine Assessment & Plan (07/04/2024 1:20 PM CDT): BMI Follow-up includes: nutrition counseling, exercise counseling, and education provided. Assessment & Plan (01/04/2024 1:38 PM CDT): BMI Follow-up includes: nutrition counseling, exercise counseling, and education provided. 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 Hailee preferred [facility]. Hyponatremia 04/15/2022 04/10/2024 Acute medial meniscus tear of right knee 01/06/2018 06/30/2023 Overview (01/06/2018): Added automatically from request for surgery [id number] Encounters Date Type Department Care Team Description 07/07/2024 Nurse Triage [facility] Primary Care at [address] [phone] Bhargav Wilkes MD 07/04/2024 7:48 PM CDT - 07/04/2024 11:59 PM CDT Hospital Encounter [address] [address] Need for hepatitis B screening test; Stage 3a chronic kidney disease (HCC); Primary hypertension Discharge Disposition: Discharge to home or self care 07/04/2024 1:45 PM CDT Lab [facility] Outpatient Lab at [address] [phone] Class 2 obesity with alveolar hypoventilation, serious comorbidity, and body mass index (BMI) of 38.0 to 38.9 in adult (HCC) (Primary Dx) 07/04/2024 1:00 PM CDT Office Visit [facility] at [address] [phone] Bhargav Wilkes MD Medicare annual wellness visit, initial (Primary Dx); Disease of spinal cord, unspecified (HCC); Brown-Sequard syndrome (HCC); Class 2 obesity with alveolar hypoventilation, serious comorbidity, and body mass index (BMI) of 38.0 to 38.9 in adult (HCC); Stage 3a chronic kidney disease (HCC); Primary hypertension 07/04/2024 Orders Only [facility] Primary Care at [address] [phone] Bhargav Wilkes MD Left hand pain (Primary Dx) 06/02/2024 Telephone [facility] [address] [facility] 6th [place] [address] [place] [address] Jarad Couch MD 05/18/2024 Telephone [facility] Primary Care at [address] [phone] Bhargav Wilkes MD Billing Question 05/11/2024 Telephone [facility] [address] [facility] [address] [place] [phone] Jarad Couch MD 05/02/2024 5:30 PM INTERCEPTOR OPERATOR - 05/02/2024 11:59 PM INTERCEPTOR OPERATOR Hospital Encounter [facility] Radiology [facility] ([facility]) [address] [place] [address] Discharge Disposition: Discharge to home or self care 05/02/2024 12:48 PM INTERCEPTOR OPERATOR - 05/02/2024 11:59 PM INTERCEPTOR OPERATOR Hospital Encounter [facility] [address] [facility] [address] [place] [phone] Mary Mccall MD Lumbar radiculopathy Discharge Disposition: Discharge to home or self care 04/27/2024 Telephone Radiology - [address] [facility] [address] [place] [phone] Belinda Mauricio, RT 04/27/2024 Orders Only [facility] Primary Care at [address] [phone] Jarad Couch MD Cervical spondylosis with radiculopathy; H/O spinal fusion 04/27/2024 Orders Only [facility] Primary Care at [address] [phone] Bhargav Wilkes MD Adnexal mass 04/21/2024 Telephone [facility] Primary Care at [address] [phone] Bhargav Wilkes MD Medication Request 04/21/2024 Telephone [facility] Primary Care at [address] [phone] Bhargav Wilkes MD Medical Question/Miscellaneou s 04/20/2024 1:30 PM INTERCEPTOR OPERATOR Office Visit [facility] [address] [facility] [address] [place] [phone] Jarad Couch MD Cervical spondylosis with radiculopathy (Primary Dx); H/O spinal fusion; Lumbar radiculopathy 04/18/2024 8:37 PM INTERCEPTOR OPERATOR - 04/18/2024 11:59 PM INTERCEPTOR OPERATOR Hospital Encounter [facility] ([facility]) [address] [place] [address] Discharge Disposition: Discharge to home or self care 04/11/2024 Telephone [facility] Primary Care at [address] [phone] Bhargav Wilkes MD from Last 3 Months Immunizations Immunization Administration Dates Next Due Influenza, Quad, Adjuvantated, Intramuscular 01/2023,02/13/2021 Influenza, Quadrivalent, [place] l Culture-based MDCK, Preservative Free, Antibiotic Free, Intramuscular 03/20/2019 Influenza, Quadrivalent, Hig h Dose, Preservative Free, Intrr 12/25/2021 Influenza, Quadrivalent, Rec ombinant, Egg Free, Preservative Free, Intramuscular 01/30/2020 Influenza, Quadrivalent, Spl it, Preservative Free, Intramuscular 02/15/2018,02/14/2018 Influenza, Trivalent, High D ose, Split, Preservative Free, Intramuscular 01/14/2024 Influenza, Trivalent, IM (MDV) 01/24/2014 Influenza, Trivalent, Preservative Free, Intramu scular 01/23/2015 Pneumococcal Conjugate Pcv20 05/04/2022 Tdap 11/11/2013 ZOSTER Recombinant 05/04/2022,12/25/2021 Surgical History Surgery Date Site/Laterality Comments HYSTERECTOMY 04/12/1987 - 04/11/1988 SECTION x2 KNEE ARTHROSCOPY BACK SURGERY 03/12/2021 - 04/11/2021 NECK SURGERY SPINE SURGERY 03/13/2021 FL FLUORO GUIDED LUMBAR PUNCTURE 05/02/2024 Right Medical History Medical History Date Comments Hypertension [...] points, staff should administer the PHQ-9) 0 07/04/2024 Comments Unknown Sex and Gender Information Value Date Recorded Sex Assigned at Not on file Legal Sex Female 1:00 AM INTERCEPTOR OPERATOR Gender Identity Not on file Sexual Orientation Not on file Obstetrics History Last Filed Vital Signs Vital Sign Reading Time Taken Comments Blood Pressure 130/80 07/04/2024 1:15 PM CDT Pulse 77 07/04/2024 1:15 PM CDT Temperature 36 C (96.8 F) 07/04/2024 1:15 PM CDT Respiratory Rate 16 07/04/2024 1:15 PM CDT Oxygen Saturation 97% 07/04/2024 1:15 PM CDT Inhaled Oxygen Concentration - - Weight 98 kg (216 lb) 07/04/2024 1:15 PM CDT Height 160 cm (5' 3 ) 07/04/2024 1:15 PM CDT Body Mass Index 38.26 07/04/2024 1:15 PM CDT Plan of Treatment Health Maintenance Due Date Last Done Comments Covid-19 Vaccine ( season) 2024 01/14/2024, 02/19/2023, 12/25/2021, Additional history exists Breast Cancer Screening-Mammogram 03/29/2025 03/29/2024, 03/29/2024, 01/29/2022, Additional history exists DTaP/Tdap/Td Vaccine (2 - Td or Tdap) 04/11/2025 11/11/2013 Postponed from 11/12/2023 (Insurance / Financial) Depression Screening 07/04/2025 07/04/2024, 01/04/2024, 08/11/2023, Additional history exists Fall Risk Assessment 07/04/2025 07/04/2024, 08/11/2023, 06/30/2023, Additional history exists Well Visit 65+ 07/04/2025 07/04/2024, 06/11, 04/15/2022 Colon Cancer Screening-DNA Stool 07/09/2025 07/09/2022 Osteoporosis Screening-Bone Density Scan 01/05/2026 01/06/2024 Hepatitis C Screening Completed 04/15/2022 Pneumococcal vaccine 65+ Completed 05/04/2022 Zoster Vaccine Completed 05/04/2022, 12/25/2021 Colon Cancer Screening-FIT Discontinued 07/09/2022 Influenza Vaccine Completed 01/14/2024, , 12/25/2021, Additional history exists Hepatitis B Screening Completed 07/04/2024 Procedures Procedure Name Priority Date/Time Associated Diagnosis Comments EGFR Routine 07/04/2024 12:00 PM CDT Stage 3a chronic kidney disease (HCC) Primary hypertension URINALYSIS, MICROSCOPIC ONLY Routine 07/04/2024 12:00 PM CDT Stage 3a chronic kidney disease (HCC) Primary hypertension DIFFERENTIAL AUTO Routine 07/04/2024 12:00 PM CDT Primary hypertension CBC WITH AUTO DIFFERENTIAL Routine 07/04/2024 12:00 PM CDT Primary hypertension COMPREHENSIVE METABOLIC PANEL Routine 07/04/2024 12:00 PM CDT Stage 3a chronic kidney disease (HCC) Primary hypertension LIPID PANEL Routine 07/04/2024 12:00 PM CDT Primary hypertension VITAMIN D 25 HYDROXY Routine 07/04/2024 12:00 PM CDT Stage 3a chronic kidney disease (HCC) THYROID FUNCTION CASCADE Routine 07/04/2024 12:00 PM CDT Primary hypertension URINALYSIS AND REFLEX TO MICROSCOPIC AND CULTURE Routine 07/04/2024 12:00 PM CDT Stage 3a chronic kidney disease (HCC) Primary hypertension HEPATITIS B SURFACE ANTIBODY (IMMUNE STATUS) Routine 07/04/2024 12:00 PM CDT Need for hepatitis B screening test HEPATITIS B CORE ANTIBODY, TOTAL Routine 07/04/2024 12:00 PM CDT Need for hepatitis B screening test HEPATITIS B SURFACE ANTIGEN Routine 07/04/2024 12:00 PM CDT Need for hepatitis B screening test NEURO MR OUTSIDE REFERENCE Routine 05/02/2024 5:30 PM INTERCEPTOR OPERATOR TRANSFORAMINAL EPIDURAL INJECTION LUMBAR SACRAL 1 LEVEL RIGHT Schedule Routine, Read Routine (OP Routine) 05/02/2024 2:20 PM INTERCEPTOR OPERATOR Lumbar radiculopathy NEURO CT OUTSIDE REFERENCE Routine 04/18/2024 8:37 PM INTERCEPTOR OPERATOR HM DEXA SCAN Routine 01/06/2024 11:25 AM CDT STOOL DNA COLOGUARD Routine 07/09/2022 2:00 PM CDT Screen for colon cancer HEPATITIS C ANTIBODY Routine 04/15/2022 2:07 PM INTERCEPTOR OPERATOR Encounter for hepatitis C screening test for low risk patient SCREENING MAMMOGRAM Schedule Routine, Read Routine (OP Routine) 01/29/2022 from Last 3 Months or Most Recently Relevant to Health Maintenance Results * eGFR (07/04/2024 12:00 PM CDT) eGFR 69 >=60 mL/min/1. 73 m2 Comment: Interpretive Data Reference Interval Normal >/= [...] interpretive data was last reviewed 2021. Blood 07/04/2024 12:0 0 PM CDT 07/04/2024 8:24 PM CDT us Bhargav Wilkes MD LAB BLOOD ORDERABLES Final Result [facility] [id number] Department [place] [address] * Differential, auto (07/04/2024 12:00 PM CDT) Neutrophil abs 3.1 1.5 - 6.5 K/cumm Imm gran abs 0.0 0.0 - 0.1 K/cumm [facility] Lymphocyte abs 1.7 0.8 - 3.3 K/cumm [facility] Monocyte abs 0.4 0.2 - 0.8 K/cumm [facility] Eosinophil abs 0.1 0.0 - 0.5 K/cumm [facility] Basophil abs 0.0 0.0 - 0.1 K/cumm [facility] Neutrophil pct 57.5 % [facility] Comment: Interpretive Data Percent cell count reference ranges are not reported, since discordance with absolute values may lead to misinterpretation of CBC data. Current Interpretive Data was last revised on 2017. Imm gran pct 0.2 % [facility] Comment: Interpretive Data Percent cell count reference ranges are not reported, since discordance with absolute values may lead to misinterpretation of CBC data. Current Interpretive Data was last revised on 2017. Lymphocyte pct 32.0 % [facility] Comment: Interpretive Data Percent cell count reference ranges are not reported, since discordance with absolute values may lead to misinterpretation of CBC data. Current Interpretive Data was last revised on 2017. Monocyte pct 8.1 % [facility] Comment: Interpretive Data Percent cell count reference ranges are not reported, since discordance with absolute values may lead to misinterpretation of CBC data. Current Interpretive Data was last revised on 2017. Eosinophil pct 2.0 % [facility] Comment: Interpretive Data Percent cell count reference ranges are not reported, since discordance with absolute values may lead to misinterpretation of CBC data. Current Interpretive Data was last revised on 2017. Basophil pct 0.2 % [facility] Comment: Interpretive Data Percent cell count reference ranges are not reported, since discordance with absolute values may lead to misinterpretation of CBC data. Current Interpretive Data was last revised on 2017. Blood 07/04/2024 12:0 0 PM CDT 07/04/2024 8:16 PM CDT us Bhargav Wilkes MD LAB BLOOD ORDERABLES Final Result [facility] [address] Department [place] [address] * Thyroid Function [place] (07/04/2024 12:00 PM CDT) TSH 1.56 0.30 - 4.20 mcIUnit/mL Blood 07/04/2024 12:0 0 PM CDT 07/04/2024 8:16 PM CDT Bhargav Wilkes MD LAB BLOOD ORDERABLES Final Result Performing Organization Address [facility] de Phone Number [facility] ZEPEDA [address] Department [place] [address] * (ABNORMAL) Urinalysis reflex to microscopic and culture Urine (07/04/2024 12:00 PM CDT) Color, ur Yellow Yellow Clarity, ur Clear Clear [facility] Specific gravity, ur 1.020 1.003 - 1.030 [facility] pH, urine 6.0 [facility] Comment: Interpretive Data U rine pH is affected by diet, medications, systemic acid-base disturbances, and renal tubular function. pH may affect urinary stone formation. For example, urine pH below 6.0 may help reduce the tendency for calcium phosphate stones and pH greater than 6.0 may reduce the tendency for uric acid stone formation. Source: [facility] Current Interpretive Data was last revised on 2017 Protein, ur ql Negative Negative [facility] Glucose, ur ql Negative Negative [facility] Ketones, ur Negative Negative [facility] Bilirubin, ur Negative Negative [facility] Blood, ur Negative Negative [facility] Urobilinogen, ur <2.0 <2.0 mg/dL [facility] Nitrite, ur Negative Negative [facility] Leukocyte esterase, ur 4+(A) Negative [facility] UA reflex comment Reflex to microscopic UA will be performed. [facility] Urine 07/04/2024 12:0 0 PM CDT 07/04/2024 8:16 PM CDT Bhargav Wilkes MD LAB MICROBIOLOGY - GENERAL ORDERABLES Final Result Performing Organization Address [facility] Co de Phone Number LELA ZEPEDA [phone] Department [place] [address] * (ABNORMAL) CBC with auto differential (07/04/2024 12:00 PM CDT) Pathologist [facility] WBC 5.4 3.8 - 9.9 K/cumm Hgb 13.5 11.9 - 15.5 g/dL [facility] Hct 43.2 35.6 - 45.5 % [facility] Plt 216 150 - 400 K/cumm [facility] MPV 10.2 9.1 - 12.3 fL [facility] RBC 4.60 3.90 - 5.20 M/cumm [facility] MCV 93.9 81.3 - 96.4 fL [facility] MCH 29.3 27.1 - 33.3 pg [facility] MCHC 31.3(L) 32.3 - 35.7 g/dL [facility] RDW CV 14.4 11.1 - 14.9 % [facility] RDW SD 50.0(H) 35.7 - 48.1 fL [facility] NRBC abs 0.00 0.00 - 0.01 K/cumm [facility] Blood 07/04/2024 12:0 0 PM CDT 07/04/2024 8:16 PM CDT Bhargav Wilkes MD LAB BLOOD ORDERABLES Final Result Performing Organization Address [facility] Co de Phone Number LELA ZEPEDA [phone] Department of Laboratories [place], [place] [id number] * Hepatitis B core antibody, total Blood (07/04/2024 12:00 PM CDT) Pathologist [facility] Hep B core IgG/IgM Nonreactive Nonreactive Comment:Testing performed by : [facility], [address] [facility], [place]., [address] Blood 07/04/2024 12:0 0 PM CDT 07/05/2024 9:43 AM CDT Bhargav Wilkes MD LAB MICROBIOLOGY - GENERAL ORDERABLES Final Result Performing Organization Address City/[facility] Co de Phone Number LELA ZEPEDA [phone] [facility] [place] [address] * Vitamin D 25 hydroxy (07/04/2024 12:00 PM CDT) [facility] Vitamin D 25-OH 56 30 - 80 ng/mL Blood 07/04/2024 12:0 0 PM CDT 07/04/2024 8:16 PM CDT Bhargav Wilkes MD LAB BLOOD ORDERABLES Final Result Performing Organization Address [facility] Co de Phone Number LELA ZEPEDA [phone] [facility] [place] [address] * Hepatitis B surface antibody (immune status) Blood (07/04/2024 12:00 PM CDT) [facility] HBsAb (immune status) Nonreactive Comment: Interpretive Data Nonreactive: This result is consistent with a lack of immunity to Hepatitis B Virus when used in the setting of routine screening. Equivocal: The immune status of the individual should be further assessed, if appropriate, after consideration of clinical status, risk factors, and additional diagnostic information. Reactive: This result is consistent with immunity to Hepatitis B Virus when used in the setting of routine screening. Current interpretive data was last revised on 19. Blood 07/04/2024 12:0 0 PM CDT 07/04/2024 8:16 PM CDT Bhargav Wilkes MD LAB MICROBIOLOGY - GENERAL ORDERABLES Final Result Performing Organization Address [facility] Co de Phone Number LELA ZEPEDA [phone] [facility] [place] [address] * Hepatitis B Surface Antigen Blood (07/04/2024 12:00 PM CDT) [facility] HepBsAg Nonreactive Nonreactive Blood 07/04/2024 12:0 0 PM CDT 07/04/2024 8:16 PM CDT Bhargav Wilkes MD LAB MICROBIOLOGY - GENERAL ORDERABLES Final Result Performing Organization Address [facility] Co de Phone Number LELA ZEPEDA [phone] [facility] [place] [address] * (ABNORMAL) Urinalysis, microscopic only (07/04/2024 12:00 PM CDT) WBC, ur 6-10(A) 0 - 5 /HPF RBC, ur 0-2 0 - 2 /HPF [facility] Epithelial cells, squamous, ur 6-10(A) 0 - 5 /HPF [facility] Bacteria, ur 1+(A) [facility] Mucous, ur Present(A) [facility] Culture Reflex Comment Reflex conditions for urine culture (WBC >10) not met. [facility] Urine 07/04/2024 12:0 0 PM CDT 07/04/2024 8:16 PM CDT Bhargav Wilkes MD LAB URINE ORDERABLES Final Result Performing Organization Address [facility] Co de Phone Number LELA ZEPEDA [phone] [facility] [place] [address] * (ABNORMAL) Lipid panel (07/04/2024 12:00 PM CDT) Cholesterol 165 30 - 199 mg/dL Comment: Interpretive Data Ages < or = [...] Data was last revised on 2017. Triglycerides 170(H) <=149 mg/dL [facility] Comment: Interpretive Data Ages < or = [...] Data was last revised on 2017. HDL 48 >=40 mg/dL [facility] Comment: Interpretive Data Ages [...] was last revised on 2017. LDL, calculated 88 <=129 mg/dL [facility] Comment: Interpretive Data Ages < or = 19 years Acceptable: <110 mg/dL Borderline high: 110-129 mg/dL High: >or= 130 mg/dL Ages > or = 20 years Optimal: <100 mg/dL Near optimal: 100-129 mg/dL Borderline high: 130-159 mg/dL High: >160 mg/dL Calculated using the Rj LDL-C estimating equation. This equation was implemented on 2023. Prior to this date LDL-C was estimated using the Friedewald equation. Literature References: 1. Expert Panel on Integrated Guidelines for Cardiovascular Health and Risk Reduction in Children and Adolescents. Pediatrics 2011;128:S213 2. NCEP Expert Panel. Circulation 2004;110:227 3. Rj Nayak. MARY Cardiol. 2020 August 10;5(5):540-548. doi: 10.1001/jamacardio.2020.0013 Current Interpretive Data was last revised on 2023. Non-HDL Cholesterol 117 mg/dL [facility] Comment: Interpretive Data Ages < or = [...] was last revised on 2017. Chol/HDL ratio 3 [facility] Blood 07/04/2024 12:0 0 PM CDT 07/04/2024 8:16 PM CDT us Bhargav Wilkes MD LAB BLOOD ORDERABLES Final Result [facility] [id number] Department [place] [address] * Comprehensive metabolic panel (07/04/2024 12:00 PM CDT) Sodium 142 135 - 145 mmol/L Potassium, pl 4.2 3.3 - 4.9 mmol/L [facility] Chloride 105 97 - 110 mmol/L [facility] CO2 26 22 - 32 mmol/L [facility] Anion gap 11 2 - 15 mmol/L [facility] BUN 25 6 - 25 mg/dL [facility] Creatinine 0.90 0.60 - 1.10 mg/dL [facility] Glucose 80 70 - 199 mg/dL [facility] Comment: Interpretive Data Fasting glucose >/= 126 [...] interpretive data was last revised 2022. Calcium 9.4 8.5 - 10.3 mg/dL [facility] Bilirubin, total 0.4 0.1 - 1.2 mg/dL [facility] Protein, pl 7.2 6.5 - 8.5 g/dL [facility] Albumin 4.2 3.5 - 5.0 g/dL [facility] Alk phos 127 40 - 130 Units/L [facility] ALT 28 7 - 45 Units/L [facility] AST 30 10 - 45 Units/L [facility] Blood 07/04/2024 12:0 0 PM CDT 07/04/2024 8:16 PM CDT Result [facility] Bhargav Wilkes MD LAB BLOOD ORDERABLES Final Result Performing Organization Address [facility] Co de Phone Number LELA [phone] Department [place] [address] * Neuro MR Outside Reference (05/02/2024 5:30 PM INTERCEPTOR OPERATOR) Impressions [facility] [facility] - 05/02/2024 5:30 PM INTERCEPTOR OPERATOR These images are for Reference purposes only and have not been reviewed by [facility]. There will be no report generated by a [facility]iologist. Narrative [facility] - 05/02/2024 5:30 PM INTERCEPTOR OPERATOR EXAMINATION: Images For Reference Purposes Only Result [facility] Jarad Couch MD IMG MRI PROCEDURE S Final Result Performing Organization Address [facility] Co de Phone Number [email or web address] * IR Transforaminal Epidural Injection Lumbar Sacral 1 Level Right (05/02/2024 2:20 PM INTERCEPTOR OPERATOR) Narrative [facility] - 05/02/2024 2:20 PM INTERCEPTOR OPERATOR The images from this study are not interpreted by Radiology. Please refer to the physician's procedure / OR operative note. Jarad Couch MD IMG IR PROCEDURES Final Result Performing Organization Address [facility] Co de Phone Number [email or web address] * Neuro CT Outside Reference (04/18/2024 8:37 PM INTERCEPTOR OPERATOR) Impressions [facility] - 04/18/2024 8:37 PM INTERCEPTOR OPERATOR These images are for Reference purposes only and have not been reviewed by [facility]. There will be no report generated by a [facility] Radiologist. Narrative [facility] - 04/18/2024 8:37 PM INTERCEPTOR OPERATOR EXAMINATION: Images For Reference Purposes Only Jarad Couch MD IMG CT PROCEDURES Final Result [facility] * DEXA SCAN (01/06/2024 11:25 AM CDT) Historical Provider HEALTH MAINTENANCE Final Result * Stool DNA - Cologuard (07/09/2022 2:00 PM CDT) Stool DNA - Cologuard Negative Negative [facility] (CLIA #:[id number]) Comment: NEGATIVE TEST RESULT. A negative Cologuard result indicates a low likelihood that a colorectal cancer (CRC) or advanced adenoma (adenomatous polyps with more advanced pre-malignant features) is present. The chance that a person with a negative Cologuard test has a colorectal cancer is less than 1 in 1500 (negative predictive value >99.9%) or has an advanced adenoma is less than 5.3% (negative predictive value 94.7%). These data are based on a prospective cross-sectional study of 10,000 individuals at average risk for colorectal cancer who were screened with both Cologuard and colonoscopy. (Elizabeth Vargas et al, N Engl J Med 2014;370(14):1383-1141) The normal value (reference range) for this assay is negative. COLOGUARD RE-SCREENING RECOMMENDATION: Periodic colorectal cancer screening is an important part of preventive healthcare for asymptomatic individuals at average risk for colorectal cancer. Following a negative Cologuard result, the [place] Cancer Society and U.S. Multi-Society Task Force screening guidelines recommend a Cologuard re-screening interval of 3 years. References: [place] Cancer Society Guideline for Colorectal Cancer Screening: https://www.cancer.org/cancer/fdrvv-xlcjnj-uwixkp/fcomwgegy-wqkkeawmx-ftfceca/ac s-rec ommendations.html.; Carlo DONOHUE, Channing GREEN, Mirtha GAPSAR, Colorectal Cancer Screening: Recommendations for Physicians and Patients from the U.S. Multi-Society Task Force on Colorectal Cancer Screening , Am J Gastroenterology 2017; 112:2947-0317. TEST DESCRIPTION: Composite algorithmic analysis of stool DNA-biomarkers with hemoglobin immunoassay. Quantitative values of individual biomarkers are not [...] Vargas et al, N Engl J Med 2014;370(14):6390-2794.) Cologuard may produce a false negative or false positive result (no colorectal cancer or precancerous polyp present at colonoscopy follow up). A negative Cologuard test result does not guarantee the absence of CRC or advanced adenoma (pre-cancer). The current Cologuard screening interval is every 3 years. ([place] Cancer Society and U.S. Multi-Society Task Force). Cologuard performance data in a 10,000 patient pivotal study using colonoscopy as the reference method can be accessed at the following location: www.Kash/results. Additional description of the Cologuard test process, warnings and precautions can be found at www.cologuard.com. Stool 07/09/2022 2:00 PM CDT 07/10/2022 3:33 PM CDT Bhargav Wilkes MD LAB BODY FLUIDS AND STOOLS ORDERABLES Final Result Performing Organization Address [facility] de Phone Number [facility] (CLIA #:[id number]) Nai [place] [address] * Hepatitis C antibody (04/15/2022 2:07 PM INTERCEPTOR OPERATOR) Hep C Ab Nonreactive Nonreactive LELA ZEPEDA [...] revised on 2019. Blood 04/15/2022 2:07 PM INTERCEPTOR OPERATOR 04/15/2022 8:10 PM INTERCEPTOR OPERATOR Bhargav Wilkes MD LAB MICROBIOLOGY - GENERAL ORDERABLES Final Result Performing Organization Address [facility] de Phone Number [facility] [address] Department [place] [address] * Screening Mammogram (01/29/2022) Anatomical Region Laterality Modality Breast N/A Mammography Narrative 01/29/2022 No malignancy Historical Provider IMG MAMMO PROCEDURES Maura l Result from Last 3 Months or Most Recently Relevant to Health Maintenance Insurance MEDICARE [facility] SENIOR SUPPLEMENT MEDICARE T SENIOR SUPPLEMENT Care Teams Web Content & Social Media Manager Relationship Specialty Start Date End Date Bhargav Wilkes MD [address] [place] [address] PCP - General Family Medicine 04/15/22 [place] [address] [place] [address] Referring Physician Physical Medicine and Rehabilitation 12/30/22
--- OUTSIDE RECORDS SUMMARY | 2024-07-07 09:41 | XMS_ITS | Clinical Summary ---
Author Organization [facility] Address [address] [place] [address] Phone Care Team Providers Care Outside Sales Account Executive Name Role Phone Bhargav Wilkes MD Primary Care Provider [phone] Family History Medical History Relation Name Comments [...] Cologuard 2005 Immunochemical Fecal Occult Blood 2005 SARS-COV-2 Immunization ( season) 2024 01/14/2024, 02/19/2023, 12/25/2021, Additional history exists Mammogram 03/29/2025 03/29/2024, 01/11, 01/29/2022, Additional history exists Respiratory Syncytial Virus (RSV) Immunization (Adult) (1 - 1-dose 75+ series) 2030 DTaP/Tdap/Td Immunization Discontinued 11/11/2013 TdaP Immunization Completed 11/11/2013 Pneumococcal Immunization (50+ years) Completed 05/04/2022 Pneumococcal Immunization Combined Discontinued 05/04/2022 Zoster Immunization Completed 05/04/2022, 2 Influenza Immunization Completed 4, 02/19/2023, 12/25/2021, Additional history exists Hepatitis B [...] CAD W SMITH Routine 03/29/2024 1:04 PM BAFFLE INSTALLER Encounter for screening mammogram for breast cancer from Last 3 Months or Most Recently Relevant to Health Maintenance Results * ERVIN SCREENING BILATERAL DIGITAL W CAD W SMITH (03/29/2024 1:04 PM BAFFLE INSTALLER) Anatomical Region Laterality Modality breast Bilateral Mammography 03/29/2024 1:03 PM BAFFLE INSTALLER Narrative 03/30/2024 10:01 AM BAFFLE INSTALLER - ERVIN SCREENING BILATERAL DIGITAL W CAD [...] to exams dated: 11/06/2020, 09/28/2019, and 03/25/2018 [facility]. BREAST TISSUE:The breasts are heterogeneously dense, which [...] next screening exam. Electronically signed by: Ian webber/penrad:03/29/2024 16:29:25 Comic Writer(s): RT Mikhail(R)(M), [facility] letter sent: Normal Exam Reading [...] to exams dated: 11/06/2020, 09/28/2019, and 03/25/2018 [facility]. BREAST TISSUE:The breasts are heterogeneously dense, which [...] next screening exam. Electronically signed by: Ian webber/penrad:03/29/2024 16:29:25 Comic Writer(s): RT Mikhail(R)(M), [facility] letter sent: Normal Exam Reading location: [facility] Mammogram BI-RADS: Category 1: Negative Bhargav Wilkes MD IMG MAMMO ORDERABLES Final R esult from Last 3 Months or Most Recently Relevant to Health Maintenance Insurance MEDICARE [facility] Care Teams Outside Sales Account Executive Relationship Specialty Start Date End Date Bhargav Wilkes MD [address] [place] [address] PCP - General Family Medicine 12/30/23
--- OUTSIDE RECORDS SUMMARY | 2024-07-07 09:41 | XMS_ITS | Encounter Summary ---
Author Organization [facility] Healthcare Address [address] [place] [id number] Care Team Providers Care Chief Of Field Operations Name Role Phone Bhargav Wilkes MD Primary Care Provider [phone] ClifflawandaBe DO Unavailable [phone] Reason for Visit * Reason Onset Date Comments Hypertension 07/07/2024 Encounter Details Date Type Department Care Team (Late st Contact Info) Description 07/07/2024 Nurse Triage [facility] Primary Care at [address] [address] Bhargav Wilkes MD [address] [place] [address] [address] [place] [address] Social History Tobacco Use Types [...] on file Legal 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 Duration: since Wednesday Details: this am BP 178/109. Yesterday BP 170/105, 2 hours later 174/101, and one hour later 199/110. Does not take blood pressure medication. Jaws feeling funny and slightly blurry vision/ double vision. Denies chest pain OR difficulty breathing. Nurse Triage Protocol Disposition: Go to ED NOW. Advised patient to have sulky driver, nothing to eat or drink, and take medication list. Hailee Tannerverbalizes understanding. Heading to [facility]. FYI Advised patient to call back after ED visit if f/u care is needed Bhargav Wilkes MD.. Hailee Sesay verbalizes understanding. Reason for Disposition Systolic BP >= 160 OR Diastolic >= 100, and any cardiac (e.g., breathing difficulty, chest pain) or neurologic symptoms (e.g., new-onset blurred or double vision) Protocols used: Blood Pressure - [id number] * Telephone Encounter - Luz Willis RN - 07/07/2024 8:10 AM CDT Regarding: high blood pressure, slight headache ----- Message from Gertrudis E sent at 07/07/2024 8:10 AM CDT ----- Symptom Based Call Chief Complaint(s): high blood pressure, slight headache Duration: since Wednesday What type of symptom(s) is the patient experiencing? Red Flag. Is the patient concerned they are experiencing a medical emergency requiring an ambulance? No Additional Comments: patient does take blood pressure medication, her numbers are ranging from 178/109 to 199/110 Does message need to be routed? Yes-Action Needed documented in this encounter Plan of Treatment Not on file documented as of this encounter Visit Diagnoses Not on filedocumented in this encounter Care Teams Chief Of Field Operations Relationship Specialty Start Date End Date Bhargav Wilkes MD [address] [place] [address] PCP - General Family Medicine 04/15/22 [place] [address] [place] [address] Referring Physician Physical Medicine and Rehabilitation 12/30/22 documented as of this encounter
--- OUTSIDE RECORDS SUMMARY | 2024-07-07 09:41 | XMS_ITS | Encounter Summary ---
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 Gender Identity Not on file Sexual Orientation Not on file documented as of this encounter Plan of Treatment Not on file documented as of this encounter Procedures Procedure Name Priority Date/Time Associated Diagnosis Comments SCAN - RADIOLOGY/IMAGING 02/28/2024 9:36 AM SPECIALTY SALES CONSULTANT documented in this encounter Results * SCAN - RADIOLOGY/IMAGING (02/28/2024 9:36 AM SPECIALTY SALES CONSULTANT) Anatomical Region Laterality Modality Other us Provider Scanning Final Result documented in this encounter Visit Diagnoses Not on filedocumented in this encounter Care Teams Wool Shearing Supervisor Relationship Specialty Start Date End Date Bhargav Wilkes MD [address] [place] [place] [address] PCP - General Family Medicine 04/15/22 [place] [address] [place] [address] Referring Physician Physical Medicine and Rehabilitation 12/30/22 documented as of this encounter
--- OUTSIDE RECORDS SUMMARY | 2024-07-07 09:41 | XMS_ITS | Referral Summary ---
Author Organization [facility] Address [address] [place] [address] Care Team Providers Care Software Writer Name Role Phone Bhargav Wilkes MD Primary Care Provider Be Rangel DO Unavailable [phone] Encounters Date Type Department Care Team Description 07/07/2024 Nurse Triage [facility] Primary Care at [address] [address] Bhargav Wilkes MD 07/04/2024 7:48 PM CDT - 07/04/2024 11:59 PM CDT Hospital Encounter [address] [address] Need for hepatitis B screening test; Stage 3a chronic kidney disease (HCC); Primary hypertension Discharge Disposition: Discharge to home or self care 07/04/2024 1:45 PM CDT Lab [facility] Outpatient Lab at [address] [address] Class 2 obesity with alveolar hypoventilation, serious comorbidity, and body mass index (BMI) of 38.0 to 38.9 in adult (HCC) (Primary Dx) 07/04/2024 Orders Only [facility] Primary Care at [address] [address] Bhargav Wilkes MD Left hand pain (Primary Dx) 07/04/2024 1:00 PM CDT Office Visit [facility] Primary Care at [address] [address] Bhargav Wilkes MD Medicare annual wellness visit, initial (Primary Dx); Disease of spinal cord, unspecified (HCC); Brown-Sequard syndrome (HCC); Class 2 obesity with alveolar hypoventilation, serious comorbidity, and body mass index (BMI) of 38.0 to 38.9 in adult (HCC); Stage 3a chronic kidney disease (HCC); Primary hypertension 06/02/2024 Telephone [facility] Orthopaedic Surgery [address] [facility] Advanced Medicine 6th [place] [address] [place] [address] Jarad Couch MD 05/18/2024 Telephone [facility] Primary Care at [address] [address] Bhargav Wilkes MD Billing Question 05/11/2024 Telephone [facility] Orthopaedic Surgery [address] [facility] [address] [place] [phone] Jarad Couch MD 05/02/2024 5:30 PM CONTROLS OPERATOR [employer] - 05/02/2024 11:59 PM CONTROLS OPERATOR [employer] Hospital Encounter [facility] Radiology [facility] ([facility]) [address] [place] [address] Discharge Disposition: Discharge to home or self care 05/02/2024 12:48 PM CONTROLS OPERATOR [employer] - 05/02/2024 11:59 PM CONTROLS OPERATOR [employer] Hospital Encounter [facility] [address] [facility] [address] [place] [phone] Mary Mccall MD Lumbar radiculopathy Discharge Disposition: Discharge to home or self care 04/27/2024 Telephone Radiology - [address] [facility] [address] [place] [address] Belinda Mauricio RT 04/27/2024 Orders Only [facility] Primary Care at [address] [address] Jarad Couch MD Cervical spondylosis with radiculopathy; H/O spinal fusion 04/27/2024 Orders Only [facility] Primary Care at [address] [address] Bhargav Wilkes MD Adnexal mass 04/21/2024 Telephone [facility] Primary Care at [address] [address] Bhargav Wilkes MD Medication Request 04/21/2024 Telephone [facility] Primary Care at [address] [address] Bhargav Wilkes MD Medical Question/Miscellaneou s 04/20/2024 1:30 PM CONTROLS OPERATOR [employer] Office Visit [facility] Orthopaedic Surgery [facility] [facility] Medical Office Building [address] [place] [phone] Jarad Couch MD Cervical spondylosis with radiculopathy (Primary Dx); H/O spinal fusion; Lumbar radiculopathy 04/18/2024 8:37 PM CONTROLS OPERATOR [employer] - 04/18/2024 11:59 PM CONTROLS OPERATOR [employer] Hospital Encounter [facility] [address] [place] [address] Discharge Disposition: Discharge to home or self care 04/11/2024 Telephone [facility] Primary Care at [address] [address] Bhargav Wilkes MD from Last 3 Months Allergies Active Allergy [...] (40 mg total) by mouth early childhood educator aide before breakfast 90 tablet 1 08/30/19 24 Active aspirin 81 mg enteric coated tablet Take 1 tablet (81 mg total) by mouth daily Active diazePAM (VALIUM) 5 mg tablet Take 1 tablet (5 mg total) by mouth nightly as needed 03/31/20 24 Active busPIRone (BUSPAR) 5 mg tabletIndicati ons:Generalize [...] Brown-Sequard syndrome 04/15/2022 GERD (gastroesophageal reflux disease) 3 Overview (04/15/2022): Difficulty taking NSAIDs. HTN (hypertension) 04/15/2022 Neurological deficit present 04/15/2022 Urinary retention 04/15/2022 Medicare annual wellness visit, initial 04/15/19 Assessment & Plan (06/30/2023 2:20 PM CDT): [...] months Assessment & Plan (04/15/2022 2:10 PM CONTROLS OPERATOR [employer]): A(n) initial Medicare Annual Wellness Visit has [...] to ER Transport with daughter. Hailee preferred [facility]. Hyponatremia 04/15/2022 04/10/2024 Acute medial meniscus tear of right knee 01/06/2018 06/30/2023 Overview (01/06/2018): Added automatically from request for surgery [id number] Immunizations Immunization Administration Dates Next Due Influenza, [...] on file Legal Sex Female 1:00 AM CONTROLS OPERATOR [employer] Gender Identity Not on file Sexual Orientation [...] 07/04/2024 1:15 PM CDT Plan of Treatment Not on [...] MR OUTSIDE REFERENCE Routine 05/02/2024 5:30 PM CONTROLS OPERATOR [employer] TRANSFORAMINAL EPIDURAL INJECTION LUMBAR SACRAL 1 LEVEL RIGHT Schedule Routine, Read Routine (OP Routine) 05/02/2024 2:20 PM CONTROLS OPERATOR [employer] Lumbar radiculopathy NEURO CT OUTSIDE REFERENCE Routine 04/18/2024 8:37 PM CONTROLS OPERATOR [employer] HM DEXA SCAN Routine 01/06/2024 11:25 AM CDT STOOL DNA COLOGUARD Routine 07/09/2022 2:00 PM CDT Screen for colon cancer HEPATITIS C ANTIBODY Routine 04/15/2022 2:07 PM CONTROLS OPERATOR [employer] Encounter for hepatitis C screening test for [...] MD LAB BLOOD ORDERABLES Final Result LELA [address] [place] [address] * Differential, auto (07/04/2024 12:00 PM CDT) Neutrophil abs 3.1 1.5 - 6.5 K/cumm Imm gran abs 0.0 0.0 - 0.1 K/cumm [facility] Lymphocyte abs 1.7 0.8 - 3.3 K/cumm [facility] Monocyte abs 0.4 0.2 - 0.8 K/cumm [facility] Eosinophil abs 0.1 0.0 - 0.5 K/cumm [facility] Basophil abs 0.0 0.0 - 0.1 K/cumm [facility] Neutrophil pct 57.5 % LELA Comment: Interpretive Data Percent cell count reference ranges are not reported, since discordance with absolute values may lead to misinterpretation of CBC data. Current Interpretive Data was last revised on 2017. Imm gran pct 0.2 % LELA Comment: Interpretive Data Percent cell count reference ranges are not reported, since discordance with absolute values may lead to misinterpretation of CBC data. Current Interpretive Data was last revised on 2017. Lymphocyte pct 32.0 % [facility]A Comment: Interpretive Data Percent cell count reference ranges are not reported, since discordance with absolute values may lead to misinterpretation of CBC data. Current Interpretive Data was last revised on 2017. Monocyte pct 8.1 % LELA Comment: Interpretive Data Percent cell count reference ranges are not reported, since discordance with absolute values may lead to misinterpretation of CBC data. Current Interpretive Data was last revised on 2017. Eosinophil pct 2.0 % [facility]ELA Comment: Interpretive Data Percent cell count reference ranges are not reported, since discordance with absolute values may lead to misinterpretation of CBC data. Current Interpretive Data was last revised on 2017. Basophil pct 0.2 % [facility]A Comment: Interpretive Data Percent cell count reference ranges are not reported, since discordance with absolute values may lead to misinterpretation of CBC data. Current Interpretive Data was last revised on 2017. Blood 07/04/2024 12:0 0 PM CDT 07/04/2024 8:16 PM CDT us Bhargav Wilkes MD LAB BLOOD ORDERABLES Final Result LELA [address] [place] [address] * Thyroid Function [place] (07/04/2024 12:00 PM CDT) TSH 1.56 0.30 - 4.20 mcIUnit/mL Blood 07/04/2024 12:0 0 PM CDT 07/04/2024 8:16 PM CDT Bhargav Wilkes MD LAB BLOOD ORDERABLES Final Result Performing Organization Address [facility] Co de Phone Number LELA ZEPEDA [address] [place] [address] * (ABNORMAL) Urinalysis reflex to microscopic and [...] tendency for uric acid stone formation. Source: [facility] [employer] Current Interpretive Data was last revised on [...] LAB MICROBIOLOGY - GENERAL ORDERABLES Final Result LELA ZEPEDA [address] [address] [place] [address] * (ABNORMAL) CBC with auto differential (07/04/2024 12:00 PM CDT) WBC 5.4 3.8 - 9.9 K/cumm Hgb 13.5 11.9 - 15.5 g/dL [facility] Hct 43.2 35.6 - 45.5 % [facility] Plt 216 150 - 400 K/cumm [facility] MPV 10.2 9.1 - 12.3 fL [facility] RBC 4.60 3.90 - 5.20 M/cumm [facility] MCV 93.9 81.3 - 96.4 fL [facility] MCH 29.3 27.1 - 33.3 pg [facility] MCHC 31.3(L) 32.3 - 35.7 g/dL [facility] RDW CV 14.4 11.1 - 14.9 % [facility] RDW SD 50.0(H) 35.7 - 48.1 fL [facility] NRBC abs 0.00 0.00 - 0.01 K/cumm [facility] Blood 07/04/2024 12:0 0 PM CDT 07/04/2024 8:16 PM CDT Bhargav Wilkes MD LAB BLOOD ORDERABLES Final Result Performing Organization Address [facility]/ZIP Co de Phone Number LELA ZEPEDA [address] [address] Department [employer] [place], [place] [id number] * Hepatitis B core antibody, total Blood (07/04/2024 12:00 PM CDT) [facility] Hep B core IgG/IgM Nonreactive Nonreactive Comment:Testing performed by : [facility], [address] [place] [address]., [address] Blood 07/04/2024 12:0 0 PM CDT 07/05/2024 9:43 AM CDT Bhargav Wilkes MD LAB MICROBIOLOGY - GENERAL ORDERABLES Final Result Performing Organization Address City/[facility]/ZIP Co de Phone Number LELA ZEPEDA [address] [address] [place] [address] * Vitamin D 25 hydroxy (07/04/2024 12:00 PM CDT) [facility] Vitamin D 25-OH 56 30 - 80 ng/mL Blood 07/04/2024 12:0 0 PM CDT 07/04/2024 8:16 PM CDT Bhargav Wilkes MD LAB BLOOD ORDERABLES Final Result Performing Organization Address [facility] Co wi Phone Number LELA [address] [place] [address] * Hepatitis B surface antibody (immune status) Blood (07/04/2024 12:00 PM CDT) Pathologist [facility] HBsAb (immune status) Nonreactive Comment: Interpretive Data [...] GENERAL ORDERABLES Final Result Performing Organization Address [facility] Co de Phone Number LELA [address] [address] [facility] [address] * Hepatitis B Surface Antigen Blood (07/04/2024 12:00 PM CDT) Pathologist [facility] HepBsAg Nonreactive Nonreactive Blood 07/04/2024 12:0 0 PM CDT 07/04/2024 8:16 PM CDT Bhargav Wilkes MD LAB MICROBIOLOGY - GENERAL ORDERABLES Final Result Performing Organization Address [facility] Co de [place] [address] [address] [place] [address] * (ABNORMAL) Urinalysis, microscopic only (07/04/2024 12:00 PM CDT) WBC, ur 6-10(A) 0 - 5 /HPF RBC, ur 0-2 0 - 2 /HPF [facility] Epithelial cells, squamous, ur 6-10(A) 0 - 5 /HPF [facility] Bacteria, ur 1+(A) [facility] Mucous, ur Present(A) [facility] Culture Reflex Comment Reflex conditions for urine culture (WBC >10) not met. [facility] Urine 07/04/2024 12:0 0 PM CDT 07/04/2024 8:16 PM CDT us Bhargav Wilkes MD LAB URINE ORDERABLES Final Result [facility] [address] [place] [address] * (ABNORMAL) Lipid panel (07/04/2024 12:00 PM [...] revised on 2017. Triglycerides 170(H) <=149 mg/dL [facility] Comment: Interpretive Data Ages < or = [...] on 2017. HDL 48 >=40 mg/dL L[facility]A ZEPEDA Comment: Interpretive Data [...] 2017. LDL, calculated 88 <=129 mg/dL [facility]A ZEPEDA Comment: Interpretive Data [...] NCEP Expert Panel. Circulation 2004;110:227 3. Rj Carter et al. MARY Cardiol. 2019August 10;5(5):540-548. doi: 10.1001/[email or web address].2020.0013 Current Interpretive Data was last revised on 2023. Non-HDL Cholesterol 117 mg/dL LELA ZEPEDA Comment: Interpretive Data Ages [...] last revised on 2017. Chol/HDL ratio 3 [facility] Blood 07/04/2024 12:0 0 PM CDT 07/04/2024 8:16 PM CDT us Bhargav Wilkes MD LAB [place] [address] [address] [place] [address] * Comprehensive metabolic panel (07/04/2024 12:00 PM CDT) Sodium 142 135 - 145 mmol/L Potassium, pl 4.2 3.3 - 4.9 mmol/L [facility] Chloride 105 97 - 110 mmol/L [facility] CO2 26 22 - 32 mmol/L [facility] Anion gap 11 2 - 15 mmol/L [facility] BUN 25 6 - 25 mg/dL [facility] Creatinine 0.90 0.60 - 1.10 mg/dL [facility] Glucose 80 70 - 199 mg/dL [facility] Comment: [...] PM CDT 07/04/2024 8:16 PM CDT Result [facility] Bhargav Wilkes MD LAB BLOOD ORDERABLES Final Result Performing Organization Address [facility] Phone Number LELA ZEPEDA [address] [place] [address] * Neuro MR Outside Reference (05/02/2024 5:30 PM CONTROLS OPERATOR [employer]) Impressions RAD_PACS_BJ - 05/02/2024 5:30 PM CONTROLS OPERATOR [employer] These images are for Reference purposes only and have not been reviewed by [facility] Radiology. There will be no report generated by a [facility] Radiologist. Narrative RAD_PACS_BJ - 05/02/2024 5:30 PM CONTROLS OPERATOR [employer] EXAMINATION: Images For Reference Purposes Only Result [facility] Jarad Couch MD IMG MRI PROCEDURE S Final Result Performing Organization Address [facility] de Phone Number [email or web address] * IR Transforaminal Epidural Injection Lumbar Sacral 1 Level Right (05/02/2024 2:20 PM CONTROLS OPERATOR [employer]) Narrative RAD_PACS_BJWCH - 05/02/2024 2:20 PM CONTROLS OPERATOR [employer] The images from this study are not interpreted by Radiology. Please refer to the physician's procedure / OR operative note. Jarad Couch MD IMG IR PROCEDURES Final Result Performing Organization Address [facility] de Phone Number [email or web address] * Neuro CT Outside Reference (04/18/2024 8:37 PM CONTROLS OPERATOR [employer]) Impressions RAD_PACS_BJ - 04/18/2024 8:37 PM CONTROLS OPERATOR [employer] These images are for Reference purposes only and have not been reviewed by [facility] Radiology. There will be no report generated by a [facility] Radiologist. Narrative RAD_PACS_BJ - 04/18/2024 8:37 PM CONTROLS OPERATOR [employer] EXAMINATION: Images For Reference Purposes Only Jarad Couch MD IMG CT PROCEDURES Final Result RAD_PACS[facility] * HM DEXA SCAN (01/06/2024 11:25 AM CDT) Historical Provider HEALTH MAINTENANCE Final Result * Stool DNA - Cologuard (07/09/2022 2:00 PM CDT) Stool DNA - Cologuard Negative Negative [employer] (CLIA #:[id number]) Comment: NEGATIVE TEST RESULT. A negative Cologuard [...] (Elizabeth Saavedra al, N Engl J Med 2014;370(14):4891-9729) The normal value (reference range) for this assay is negative. COLOGUARD RE-SCREENING RECOMMENDATION: Periodic colorectal cancer screening is an important part of preventive healthcare for asymptomatic individuals at average risk for colorectal cancer. Following a negative Cologuard result, the [place] Cancer Society and U.S. Multi-Society Task Force screening guidelines recommend a Cologuard re-screening interval of 3 years. References: [place] [employer] Guideline for Colorectal Cancer Screening: https://www.cancer.org/cancer/ydvlp-pppzcg-rpvrjl/srdwggpwr-vlvrgyoef-iivaoel/ac s-rec ommendations.html.; Carlo DONOHUE, Channing GREEN, Mirtha GASPAR, Colorectal Cancer Screening: Recommendations for Physicians and Patients from the U.S. Multi-Society Task Force on Colorectal Cancer Screening , Am J Gastroenterology 2017; 112:4182-1182. TEST DESCRIPTION: Composite algorithmic analysis of stool [...] Vargas et al, N Engl J Med 2014;370(14):5652-7481.) Cologuard may produce a false negative or false positive result (no colorectal cancer or precancerous polyp present at colonoscopy follow up). A negative Cologuard test result does not guarantee the absence of CRC or advanced adenoma (pre-cancer). The current Cologuard screening interval is every 3 years. ([place] [employer] Society and U.S. Multi-Society Task Force). Cologuard performance data in a 10,000 patient pivotal study using colonoscopy as the reference method can be accessed at the following location: www.[employer].Flythegap/results. Additional description of the Cologuard test process, warnings and precautions can be found at www.[employer].com. Stool 07/09/2022 2:00 PM CDT 07/10/2022 3:33 PM CDT us Bhargav Wilkes MD LAB BODY FLUIDS AND STOOLS ORDERABLES Final Result [employer] (CLIA #:[id number]) Nai [place] [address] * Hepatitis C antibody (04/15/2022 2:07 PM CONTROLS OPERATOR [employer]) Hep C Ab Nonreactive Nonreactive LELA ZEPEDA [...] revised on 2019. Blood 04/15/2022 2:07 PM CONTROLS OPERATOR [employer] 04/15/2022 8:10 PM CONTROLS OPERATOR [employer] Bhargav Wilkes MD LAB MICROBIOLOGY - GENERAL ORDERABLES Final Result Performing Organization Address City/State/ZIP Co wi Phone Number LELA [address] [address] [place] [address] * Screening Mammogram (01/29/2022) Anatomical Region Laterality Modality Breast N/A Mammography Narrative 01/29/2022 No malignancy Historical Provider IMG MAMMO PROCEDURES Maura l Result from Last 3 Months or Most Recently Relevant to Health Maintenance Insurance MEDICARE [employer] SENIOR SUPPLEMENT MEDICARE [facility] SENIOR SUPPLEMENT Care Teams Software Writer Relationship Specialty Start Date End Date Bhargav Wilkes MD [address] [place] [address] PCP - General Family Medicine 04/15/22 [place] [address] [place] [address] Referring Physician Physical Medicine and Rehabilitation 12/30/22
--- OUTSIDE RECORDS SUMMARY | 2024-07-07 09:41 | XMS_ITS | Continuity of Care Document ---
Author Organization [facility] Address [address] [place] [address] [place] [address] Phone Care Team Providers Care Civil Engineering Specialist Name Role Phone Isaak Davis MD Unavailable Unavailable Procedures Procedure Date Office/outpatient Visit, [facility] Advance Directives Directive Yes / No Effective Date File Name No Information Encounters Encounter Description Practice Location Reason(s) For Visit Diagnoses Date Provider Providers Copied on Encounter Office/outpat ient Visit, [facility], [address] [place] [address] [address], [place], [place], [id number], [place] tel:[phone] [address] [place] Professional No Information 6-[address] Susan Mulligan. [address] [facility] [address], [place], [place], [id number], [place]. tel:[phone] Family History Family Member Type Diagnosis Age At Onset No Information Payers Payer name Insurance type Covered democrat ID Authoriza tinova(s) [facility] CI [id number] Social History Type Description Quantity Date Captured [...]
--- NOTE | 2024-07-07 09:59 | ECG_ITS ---
Test Date: 2024-07-07 10:33:31 Measurements Intervals Schuyler Rate: 73 P: 32 MS: 203 QRS: -14 QRSD: 110 T: 9 QT: 399 QTc: 440 Interpretive Statements SINUS RHYTHM POSSIBLE LEFT ATRIAL ENLARGEMENT [-0.1mV P WAVE IN V1/V2] LOW QRS VOLTAGE IN PRECORDIAL LEADS [QRS DEFLECTION < 1.0 mV IN CHEST LEADS] POSSIBLE LEFT VENTRICULAR HYPERTROPHY [VOLTAGE CRITERIA PLUS LAE OR QRS WIDENING] ABNORMAL ECG No previous ECG available for comparison Electronically Signed On 07-08-2024 09:51:16 CDT by Sanya Mondragon M.D.
--- NOTE | 2024-07-07 10:24 | ED_ITS ---
HPI - Recheck/Abnormal Lab/Rx General Chief Complaint: Recheck/Abnormal Lab/Rx Stated Complaint: hypertension Time Seen by Provider: 07/07/24 09:19 Source: patient Mode of arrival: ambulatory Limitations: no limitations History of Present Illness HPI narrative: Patient is a 69-year-old female who presents the ED with report of headache and elevated blood pressure. Patient reports she had a routine appointment with her primary care doctor on Wednesday in her blood pressure was noted to be elevated into the 160s systolic. She was advised to monitor her blood pressures at home. States blood pressures have been consistently elevated over the last couple of days, up to 170s to 180s systolic over 90-100 diastolic. Patient denies previous history of hypertension. Not currently on any antihypertensive medications. She has history of a T3 spinal cord injury and related hypotension in the past. Reports having intermittent dizziness, headaches, jaw tightness over the last several days. Not take anything for the headache. Does report intermittent brief double vision today. Denies chest pain or shortness breath. Denies focal weakness or numbness. Denies slurred speech or confusion. Related Data Home Medications ?Medication ?Instructions ?Recorded ?Confirmed ?Last Taken ?Type cranberry concentrate-ascorbic 1 cap PO DAILY 09/11/21 02/12/22 Unknown History acid 4,200 mg-20 mg capsule magnesium 500 mg tablet 500 mg PO DAILY 09/11/21 02/12/22 Unknown History [id number] 1 tablet PO DAILY 09/11/21 02/12/22 Unknown History 18 mg-10 mg-45 mg-5 mg-250 mg tablet (B Complex w-Vit C) cholecalciferol (vitamin D3) 50 50 mcg PO DAILY 10/02/21 02/12/22 Unknown History mcg (2,000 unit) capsule baclofen 20 mg tablet 60 mg PO DAILY 02/05/22 02/12/22 Unknown History gabapentin 100 mg capsule 300 mg PO TID 02/05/22 02/12/22 Unknown History Allergies Allergy/AdvReac Type Severity Reaction Status Date / Time codeine AdvReac Severe Gastrointestinal Verified 07/07/24 09:30 Upset oxycodone AdvReac Severe Nausea and Verified 07/07/24 09:30 Vomiting Review of Systems Review of Systems: All systems reviewed & are unremarkable except as noted in HPI. 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 Anterior C4-C5 C6 fusion with cadaver spacers. T2-T3 laminectomy. History of arthroscopy of right knee History of 2 sections History of hysterectomy Meniscal repair. Family History Family History Mother Diabetes mellitus Depression Hypertension Family history of rheumatoid arthritis Family history of cardiovascular disease Family history of chronic obstructive pulmonary disease Family history of congestive heart failure Father Hypertension Cerebrovascular accident Family history of lung cancer Family history of kidney disease Family history of chronic obstructive pulmonary disease, Onset Age: 50 Family history of malignant neoplasm of kidney Sibling Diabetes mellitus Hypertension Family history of elevated blood lipids Social History Social History Social History: Surrogate decision maker: Brenda Escalona, daughter. Code status: Full code. Smoking packs per day: 1 Smoking cigarettes per day: 20.0 Years smoked: 6 Smoking pack-years: 6.00 Smoking status: Former smoker Tobacco type: cigarettes Additional smoking assessment comments: 10 cigarettes per day for 4 years Alcohol intake: never Drinks per week: 2 Alcohol use details: beer Substance use: never Living arrangements: alone Occupation/Education: retired Spiritual care concerns: Yes Exam Narrative: GENERAL: Well appearing, obese with BMI of 38.2, non-toxic, in no acute distress. HEAD: Normocephalic, atraumatic. EYES: PERRL/EOMI, conjunctiva clear. No nystagmus. NECK: No meningeal signs. RESPIRATORY: Airway patent, respirations nonlabored. Clear to auscultation bilaterally, no rales, rhonchi, wheezing. CARDIOVASCULAR: Regular rate and rhythm MUSCULOSKELETAL: Moves all extremities. No gross deformities. SKIN: Warm, dry, normal color. NEURO: A&O X3. Speech clear. Cranial nerves II-XII grossly intact. Steady gait. No ataxic movements. No focal deficits. No pronator drift. 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 Strength 5 of 5 in upper and lower extremities bilaterally. PSYCHIATRIC: Appropriate mood and affect. Normal interaction. Course Vital Signs Vital signs: Vital Signs Temperature 97.8 F 07/07/24 09:27 Pulse Rate 77 07/07/24 09:27 Respiratory Rate 15 07/07/24 09:27 Blood Pressure 188/98 H 07/07/24 09:27 Pulse Oximetry 99 07/07/24 09:27 Oxygen Delivery Room Air 07/07/24 09:27 Temperature 97.8 F 07/07/24 09:27 Pulse Rate 83 07/07/24 13:31 Respiratory Rate 16 07/07/24 13:31 Blood Pressure 175/80 H 07/07/24 13:31 Pulse Oximetry 98 07/07/24 13:31 Oxygen Delivery Room Air 07/07/24 09:27 MDM - Recheck/Abnormal Lab/Rx MDM Narrative Medical decision making narrative: Patient presented to ED with elevated blood pressures, no previous history of hypertension, also reporting headache, intermittent jaw tightness, intermittent dizziness. Blood pressure upon arrival 188/98. Patient neurologically intact upon my evaluation. No focal deficits. CT brain was obtained and negative. Patient had basic laboratory tests drawn on 07/04/24 with her PCP. I was able to review these on patient's phone. Labs were within normal range. No leukocytosis or anemia. No electrolyte disturbances, stable kidney function. EKG w/o ischemic changes. Troponin today negative. Blood pressure did improve into the 170s and then down to 130/90 without intervention. Has been labile throughout ED stay. Has been stable, ranging typically in the 150s. Patient's headache improved with migraine cocktail. Discussed case with Dr. Wilkes, PCP, advised can start patient on low-dose hydrochlorothiazide and have patient follow-up in office late next week. Patient was given phentermine at office visit for weight loss, recommended stopping as this could be causing elevated blood pressures. Discussed this with patient. She has not started the new prescription yet. Given 1st dose of hydrochlorothiazide here. She is agreeable to starting this. Feel she is safe for discharge home with close outpatient follow-up. Strict return precautions. She agrees with plan. She feels comfortable going home. Advised to continue monitoring BP and sx's at home. Discharged in stable condition. Medical Records Attestation: I reviewed the patient's medical records. Lab Data Attestation: I reviewed the patient's lab results. Labs: Lab Results 07/07/24 Range/Units 10:26 Troponin I < 0.012 (0.000-0.034) ng/mL Imaging Data Attestation: I personally reviewed and interpreted this imaging study as follows: Radiologist's impression: ITS Impressions Head CT 07/07/24 09:52 IMPRESSION: 1. No acute intracranial abnormality. ECG Data EKG #1: Attestation: I personally reviewed and interpreted this ECG as follows: ECG completion date: 07/07/24 ECG completion time: 10:33 EKG Interpretation: normal rate (73), sinus rhythm and non-specific ST changes Discharge Plan Discharge Clinical Impression: Hypertension Qualifiers: Hypertension type: unspecified Qualified Code(s): I10 - Essential (primary) hypertension Headache Qualifiers: Headache type: unspecified Headache chronicity pattern: acute headache Intractability: not intractable Qualified Code(s): R51.9 - Headache, unspecified Patient Disposition: Home, Self-Care Condition: Stable Instructions: Antibiotic Form, Acute Headache (ED), Chronic Hypertension (ED), Hypertension (ED) Additional Instructions: Take blood pressure medication daily as prescribed. Monitor your blood pressure at home and keep a log of this. Follow-up closely with your primary care doctor next week. He was made aware of your ED visit. Do not take blood pressure medication if your systolic blood pressure (top number) is below 110. Continue Tylenol and ibuprofen as needed for headaches. Stay well hydrated. Return to the ED if you experience worsening or severe headaches, severe pain, chest pain, difficulty breathing, severe dizziness, focal numbness or weakness of arm or leg, passing out, severe vision changes, or any other symptoms of concern. Patient Language: Danish Prescriptions: New hydrochlorothiazide 12.5 mg tablet 12.5 mg PO DAILY Qty: 30 0RF No Action cholecalciferol (vitamin D3) 50 mcg (2,000 unit) capsule 50 mcg PO DAILY baclofen 20 mg tablet 60 mg PO DAILY gabapentin 100 mg capsule 300 mg PO TID polyethylene glycol 3350 [Miralax] 17 gram/dose powder 17 g PO DAILY PRN (Reason: constipation) Qty: 238 0RF magnesium 500 mg Tablet 500 mg PO DAILY B Complex w-Vit C 84-15-55-5-250 mg Tablet 1 tablet PO DAILY cranberry conc-ascorbic acid 4,200-20 mg Capsule 1 cap PO DAILY pantoprazole 40 mg tablet,delayed release (DR/EC) 40 mg PO QAM Qty: 90 1RF trazodone 50 mg tablet See Rx Instructions .ROUTE .COMPLEX Qty: 30 0RF Dose Instruction: TAKE 1 TABLET BY MOUTH EVERY EVENING Rx Instructions: TAKE 1 TABLET BY MOUTH EVERY EVENING Follow-up/Referrals: UNKNOWN,DOCTOR [Primary Care Provider] - Time of Disposition: 14:12
--- OUTSIDE RECORDS SUMMARY | 2024-07-07 10:27 | XMS_ITS | Clinical Summary ---
Author Organization [facility] Address [id number] [place] [phone] Care Team Providers Care Insulation Installer Name Role Phone Bhargav Wilkes MD Primary Care Provider Be Rangel DO Unavailable [phone] Allergies Active Allergy Reactions Criticality Noted Date [...] 1 tablet (40 mg total) by mouth foam rubber molder before breakfast 90 tablet 1 08/30/19 Active [...] months Assessment & Plan (04/15/2022 2:10 PM OIM CONSULTANT): A(n) initial Medicare Annual Wellness Visit has [...] to ER Transport with daughter. Hailee preferred [facility]. Hyponatremia 04/15/2022 04/10/2024 Acute medial meniscus tear of right knee 01/06/2018 06/30/2023 Overview (01/06/2018): Added automatically from request for surgery [id number] Encounters Date Type Department Care Team Description 07/07/2024 Nurse Triage [facility] Primary Care at [address] [phone] Bhargav Wilkes MD 07/04/2024 7:48 PM CDT - 07/04/2024 11:59 PM CDT Hospital Encounter [address] [address] Need for hepatitis B screening test; Stage 3a chronic kidney disease (HCC); Primary hypertension Discharge Disposition: Discharge to home or self care 07/04/2024 1:45 PM CDT Lab [facility] Outpatient Lab at [address] [phone] Class 2 obesity with alveolar hypoventilation, serious comorbidity, and body mass index (BMI) of 38.0 to 38.9 in adult (HCC) (Primary Dx) 07/04/2024 1:00 PM CDT Office Visit [facility] Primary Care at [address] [phone] Bhargav Wilkes MD Medicare annual wellness visit, initial (Primary Dx); Disease of spinal cord, unspecified (HCC); Brown-Sequard syndrome (HCC); Class 2 obesity with alveolar hypoventilation, serious comorbidity, and body mass index (BMI) of 38.0 to 38.9 in adult (HCC); Stage 3a chronic kidney disease (HCC); Primary hypertension 07/04/2024 Orders Only [facility] Primary Care at [address] [phone] Bhargav Wilkes MD Left hand pain (Primary Dx) 06/02/2024 Telephone [facility] Orthopaedic Surgery [address] [facility] Advanced Medicine 6th [place] [address] [place] [address] Jarad Couch MD 05/18/2024 Telephone [facility] Primary Care at [address] [phone] Bhargav Wilkes MD Billing Question 05/11/2024 Telephone [facility] Orthopaedic Surgery [address] [facility] Medical Office Building [address] [place] [phone] Jarad Couch MD 05/02/2024 5:30 PM OIM CONSULTANT - 05/02/2024 11:59 PM OIM CONSULTANT Hospital Encounter [facility] Radiology [facility] ([facility]) [address] [place] [address] Discharge Disposition: Discharge to home or self care 05/02/2024 12:48 PM OIM CONSULTANT - 05/02/2024 11:59 PM OIM CONSULTANT Hospital Encounter [facility] [address] [facility] [address] [place] [phone] Mary Mccall MD Lumbar radiculopathy Discharge Disposition: Discharge to home or self care 04/27/2024 Telephone Radiology - [address] [facility] [address] [place] [address] Belinda Mauricio, RT 04/27/2024 Orders Only [facility] Primary Care at [address] [phone] Jarad Couch MD Cervical spondylosis with radiculopathy; H/O spinal fusion 04/27/2024 Orders Only [facility] Primary Care at [address] [phone] Bhargav Wilkes MD Adnexal mass 04/21/2024 Telephone [facility] Primary Care at [address] [phone] Bhargav Wilkes MD Medication Request 04/21/2024 Telephone [facility] Primary Care at [address] [phone] Bhargav Wilkes MD Medical Question/Miscellaneou s 04/20/2024 1:30 PM OIM CONSULTANT Office Visit [facility] Orthopaedic Surgery [address] [facility] Medical Office Building [address] [place] [phone] Jarad Couch MD Cervical spondylosis with radiculopathy (Primary Dx); H/O spinal fusion; Lumbar radiculopathy 04/18/2024 8:37 PM OIM CONSULTANT - 04/18/2024 11:59 PM OIM CONSULTANT Hospital Encounter [facility] ([facility]) [address] [place] [address] Discharge Disposition: Discharge to home or self care 04/11/2024 Telephone [facility] Primary Care at [address] [phone] Bhargav Wilkes MD from Last [...] on file Legal Sex Female 1:00 AM OIM CONSULTANT Gender Identity Not on file Sexual [...] MR OUTSIDE REFERENCE Routine 05/02/2024 5:30 PM OIM CONSULTANT TRANSFORAMINAL EPIDURAL INJECTION LUMBAR SACRAL 1 LEVEL RIGHT Schedule Routine, Read Routine (OP Routine) 05/02/2024 2:20 PM OIM CONSULTANT Lumbar radiculopathy NEURO CT OUTSIDE REFERENCE Routine 04/18/2024 8:37 PM OIM CONSULTANT HM DEXA SCAN Routine 01/06/2024 11:25 AM CDT STOOL DNA COLOGUARD Routine 07/09/2022 2:00 PM CDT Screen for colon cancer HEPATITIS C ANTIBODY Routine 04/15/2022 2:07 PM OIM CONSULTANT Encounter for hepatitis C screening test for [...] LAB BLOOD ORDERABLES Final Result LELA ZEPEDA [address] [place] [address] * Differential, auto (07/04/2024 12:00 PM CDT) Neutrophil abs 3.1 1.5 - 6.5 K/cumm Imm gran abs 0.0 0.0 - 0.1 K/cumm [facility] Lymphocyte abs 1.7 0.8 - 3.3 K/cumm [facility] Monocyte abs 0.4 0.2 - 0.8 K/cumm [facility] Eosinophil abs 0.1 0.0 - 0.5 K/cumm [facility] Basophil abs 0.0 0.0 - 0.1 K/cumm [facility] Neutrophil pct 57.5 % [facility] Comment: Interpretive Data Percent cell count reference ranges are not reported, since discordance with absolute values may lead to misinterpretation of CBC data. Current Interpretive Data was last revised on 2017. Imm gran pct 0.2 % [facility] Comment: Interpretive Data Percent cell count reference ranges are not reported, since discordance with absolute values may lead to misinterpretation of CBC data. Current Interpretive Data was last revised on 2017. Lymphocyte pct 32.0 % [facility] Comment: Interpretive Data Percent cell count reference ranges are not reported, since discordance with absolute values may lead to misinterpretation of CBC data. Current Interpretive Data was last revised on 2017. Monocyte pct 8.1 % [facility] Comment: Interpretive Data Percent cell count reference ranges are not reported, since discordance with absolute values may lead to misinterpretation of CBC data. Current Interpretive Data was last revised on 2017. Eosinophil pct 2.0 % [facility] Comment: Interpretive Data Percent cell count reference ranges are not reported, since discordance with absolute values may lead to misinterpretation of CBC data. Current Interpretive Data was last revised on 2017. Basophil pct 0.2 % [facility] Comment: Interpretive Data Percent cell count reference ranges are not reported, since discordance with absolute values may lead to misinterpretation of CBC data. Current Interpretive Data was last revised on 2017. Blood 07/04/2024 12:0 0 PM CDT 07/04/2024 8:16 PM CDT us Bhargav Wilkes MD LAB BLOOD ORDERABLES Final Result LELA ZEPEDA [address] Department [place] [address] * Thyroid Function Waldo (07/04/2024 12:00 PM CDT) TSH 1.56 0.30 - 4.20 mcIUnit/mL Blood 07/04/2024 12:0 0 PM CDT 07/04/2024 8:16 PM CDT Bhargav Wilkes MD LAB BLOOD ORDERABLES Final Result Performing Organization Address [facility] de Phone Number LELA ZEPEDA [address] [place] [address] * (ABNORMAL) Urinalysis reflex to microscopic and [...] tendency for uric acid stone formation. Source: [facility] [employer] Current Interpretive Data was last revised on [...] GENERAL ORDERABLES Final Result Performing Organization Address [facility] Co de Phone Number LELA ZEPEDA [address] Department [place] [address] * (ABNORMAL) CBC with auto differential (07/04/2024 12:00 PM CDT) Pathologist [facility] WBC 5.4 3.8 - 9.9 K/cumm Hgb 13.5 11.9 - 15.5 g/dL [facility] Hct 43.2 35.6 - 45.5 % [facility] Plt 216 150 - 400 K/cumm [facility] MPV 10.2 9.1 - 12.3 fL [facility] RBC 4.60 3.90 - 5.20 M/cumm [facility] MCV 93.9 81.3 - 96.4 fL [facility] MCH 29.3 27.1 - 33.3 pg [facility] MCHC 31.3(L) 32.3 - 35.7 g/dL [facility] RDW CV 14.4 11.1 - 14.9 % [facility] RDW SD 50.0(H) 35.7 - 48.1 fL [facility] NRBC abs 0.00 0.00 - 0.01 K/cumm [facility] Blood 07/04/2024 12:0 0 PM CDT 07/04/2024 8:16 PM CDT Bhargav Wilkes MD LAB BLOOD ORDERABLES Final Result Performing Organization Address [facility] Co de Phone Number LELA ZEPEDA [address] Department of Laboratories [place], [place] [id number] * Hepatitis B core antibody, total Blood (07/04/2024 12:00 PM CDT) Pathologist [facility] Hep B core IgG/IgM Nonreactive Nonreactive Comment:Testing performed by : [facility], [address] [facility], [place]., [address] Blood 07/04/2024 12:0 0 PM CDT 07/05/2024 9:43 AM CDT Bhargav Wilkes MD LAB MICROBIOLOGY - GENERAL ORDERABLES Final Result Performing Organization Address City/[facility] Co de Phone Number LELA ZEPEDA [address] [address] [facility] [place] [address] * Vitamin D 25 hydroxy (07/04/2024 12:00 PM CDT) [facility] Vitamin D 25-OH 56 30 - 80 ng/mL Blood 07/04/2024 12:0 0 PM CDT 07/04/2024 8:16 PM CDT Bhargav Wilkes MD LAB BLOOD ORDERABLES Final Result Performing Organization Address [facility] Co de Phone Number LELA ZEPEDA [address] [address] [facility] [place] [address] * Hepatitis B surface antibody (immune status) Blood (07/04/2024 12:00 PM CDT) [facility] HBsAb (immune status) Nonreactive Comment: Interpretive Data [...] GENERAL ORDERABLES Final Result Performing Organization Address [facility] Co de Phone Number LELA ZEPEDA [address] [address] [facility] [place] [address] * Hepatitis B Surface Antigen Blood (07/04/2024 12:00 PM CDT) [facility] HepBsAg Nonreactive Nonreactive Blood 07/04/2024 12:0 0 PM CDT 07/04/2024 8:16 PM CDT Bhargav Wilkes MD LAB MICROBIOLOGY - GENERAL ORDERABLES Final Result Performing Organization Address [facility] Co de Phone Number LELA ZEPEDA [address] [address] [facility] [place] [address] * (ABNORMAL) Urinalysis, microscopic only (07/04/2024 12:00 PM CDT) WBC, ur 6-10(A) 0 - 5 /HPF RBC, ur 0-2 0 - 2 /HPF [facility] Epithelial cells, squamous, ur 6-10(A) 0 - 5 /HPF [facility] Bacteria, ur 1+(A) [facility] Mucous, ur Present(A) [facility] Culture Reflex Comment Reflex conditions for urine culture (WBC >10) not met. [facility] Urine 07/04/2024 12:0 0 PM CDT 07/04/2024 8:16 PM CDT Bhargav Wilkes MD LAB URINE ORDERABLES Final Result Performing Organization Address [facility] Co de Phone Number LELA ZEPEDA [address] [address] [facility] [place] [address] * (ABNORMAL) Lipid panel (07/04/2024 12:00 PM [...] revised on 2017. Triglycerides 170(H) <=149 mg/dL [facility] Comment: Interpretive Data Ages < or [...] revised on 2023. Non-HDL Cholesterol 117 mg/dL [facility] Comment: Interpretive Data Ages < or [...] last revised on 2017. Chol/HDL ratio 3 [facility] Blood 07/04/2024 12:0 0 PM CDT 07/04/2024 8:16 PM CDT us Bhargav Wilkes MD LAB BLOOD ORDERABLES Final Result [facility] [address] [address] Department [place] [address] * Comprehensive metabolic panel (07/04/2024 12:00 PM CDT) Sodium 142 135 - 145 mmol/L Potassium, pl 4.2 3.3 - 4.9 mmol/L [facility] Chloride 105 97 - 110 mmol/L [facility] CO2 26 22 - 32 mmol/L [facility] Anion gap 11 2 - 15 mmol/L [facility] BUN 25 6 - 25 mg/dL [facility] Creatinine 0.90 0.60 - 1.10 mg/dL [facility] Glucose 80 70 - 199 mg/dL [facility] Comment: Interpretive Data Fasting glucose >/= [...] PM CDT 07/04/2024 8:[address] [facility] Bhargav Wilkes MD LAB BLOOD ORDERABLES Final Result Performing Organization Address City/[facility] Co de Phone Number LELA [address] [address] Department [place] [address] * Neuro MR Outside Reference (05/02/2024 5:30 PM OIM CONSULTANT) Impressions [facility] - 05/02/2024 5:30 PM OIM CONSULTANT These images are for Reference purposes only and have not been reviewed by [facility] Radiology. There will be no report generated by a [facility] Radiologist. Narrative [facility] - 05/02/2024 5:30 PM OIM CONSULTANT EXAMINATION: Images For Reference Purposes Only Result [facility] Jarad Couch MD IMG MRI PROCEDURE S Final Result Performing Organization Address [facility] Co de Phone Number [email or web address] * IR Transforaminal Epidural Injection Lumbar Sacral 1 Level Right (05/02/2024 2:20 PM OIM CONSULTANT) Narrative [facility] - 05/02/2024 2:20 PM OIM CONSULTANT The images from this study are not interpreted by Radiology. Please refer to the physician's procedure / OR operative note. Jarad Couch MD IMG IR PROCEDURES Final Result Performing Organization Address [facility] Co de Phone Number [email or web address] * Neuro CT Outside Reference (04/18/2024 8:37 PM OIM CONSULTANT) Impressions [facility] - 04/18/2024 8:37 PM OIM CONSULTANT These images are for Reference purposes only and have not been reviewed by [facility] Radiology. There will be no report generated by a [facility] Radiologist. Narrative [facility] - 04/18/2024 8:37 PM OIM CONSULTANT EXAMINATION: Images For Reference Purposes Only Jarad Couch MD IMG CT PROCEDURES Final Result [email or web address] * DEXA SCAN (01/06/2024 11:25 AM CDT) Historical Provider HEALTH MAINTENANCE Final Result * Stool DNA - Cologuard (07/09/2022 2:00 PM CDT) Stool DNA - Cologuard Negative Negative [employer] (CLIA #:[id number]) Comment: NEGATIVE TEST RESULT. A negative Cologuard [...] Vargas et al, N Engl J Med 2014;370(14):5953-2805) The normal value (reference range) for this assay is negative. COLOGUARD RE-SCREENING RECOMMENDATION: Periodic colorectal cancer screening is an important part of preventive healthcare for asymptomatic individuals at average risk for colorectal cancer. Following a negative Cologuard result, the [place] [employer] Society and U.S. Multi-Society Task Force screening guidelines recommend a Cologuard re-screening interval of 3 years. References: [place] [employer] Guideline for Colorectal Cancer Screening: https://www.cancer.org/cancer/uuroi-tjyted-hnwssx/riptpemqg-zffvigqow-qhjfgsd/ac s-rec ommendations.html.; Carlo DONOHUE, Channing GREEN, Mirtha GASPAR, Colorectal Cancer Screening: Recommendations for Physicians and Patients from the U.S. Multi-Society Task Force on Colorectal Cancer Screening , Am J Gastroenterology 2017; 112:1421-5899. TEST DESCRIPTION: Composite algorithmic analysis of stool [...] Vargas et al, N Engl J Med 2014;370(14):9906-1959.) Cologuard may produce a false negative or false positive result (no colorectal cancer or precancerous polyp present at colonoscopy follow up). A negative Cologuard test result does not guarantee the absence of CRC or advanced adenoma (pre-cancer). The current Cologuard screening interval is every 3 years. ([place] [employer] Society and U.S. Multi-Society Task Force). Cologuard performance data in a 10,000 patient pivotal study using colonoscopy as the reference method can be accessed at the following location: www.KAL/results. Additional description of the Cologuard test process, warnings and precautions can be found at www.cologuard.com. Stool 07/09/2022 2:00 PM CDT 07/10/2022 3:33 PM CDT Bhargav Wilkes MD LAB BODY FLUIDS AND STOOLS ORDERABLES Final Result Performing Organization Address [facility] de Phone Number [facility] [employer] [facility] (CLIA #:[id number]) Nai [place] [address] * Hepatitis C antibody (04/15/2022 2:07 PM OIM CONSULTANT) Hep C Ab Nonreactive Nonreactive LELA ZEPEDA [...] revised on 2019. Blood 04/15/2022 2:07 PM OIM CONSULTANT 04/15/2022 8:10 PM OIM CONSULTANT Bhargav Wilkes MD LAB MICROBIOLOGY - GENERAL ORDERABLES Final Result Performing Organization Address [facility] de Phone Number [facility] [address] [address] Department [place] [address] * Screening Mammogram (01/29/2022) Anatomical Region Laterality Modality Breast N/A Mammography Narrative 01/29/2022 No malignancy Historical Provider IMG MAMMO PROCEDURES Maura l Result from Last 3 Months or Most Recently Relevant to Health Maintenance Insurance MEDICARE [facility] SENIOR SUPPLEMENT MEDICARE T SENIOR SUPPLEMENT Care Teams Insulation Installer Relationship Specialty Start Date End Date Bhargav Wilkes MD [address] [place] [address] PCP - General Family Medicine 04/15/22 [place] [address] [place] [address] Referring Physician Physical Medicine and Rehabilitation 12/30/22
--- OUTSIDE RECORDS SUMMARY | 2024-07-07 10:27 | XMS_ITS | Clinical Summary ---
Author Organization [facility] Address [address] [place] [address] Phone Care Team Providers Care Mental Health Coordinator Name Role Phone Bhargav Wilkes MD [...] Type Department Care Team Description 06/22/2024 Abstract [facility] Physical Med and Rehab [facility] [address] [place] [phone] Be Rangel DO 05/04/2024 Orders Only [facility] Physical Med and Rehab [facility] [address] [place] [phone] Be Rangel DO Brown-Sequard syndrome (CMS/HCC) (Primary Dx); Cord compression (CMS/HCC); Cervical spondylosis with radiculopathy 05/01/2024 Abstract [facility] Physical Med and Rehab [facility] [address] [place] [phone] Be Rangel DO 04/25/2024 External Device Data STL ABSTRACTION Provider, Abstract from Last 3 Months Immunizations Immunization Administration Dates Next Due (Bubbleball)(12 YR UP) COVID-19 VACCINE - EMERGENCY USE AUTHORIZATION, MRNA, [id number]) 30 MCG/0.3 ML IM SUSP 02/14/2021,06/16/2020,05/25/2020 Family [...] CDT Respiratory Rate 16 04/18/2021 5:05 AM CREDIT FRONT OFFICE DEVELOPER Oxygen Saturation 95% 04/18/2021 5:05 AM CREDIT FRONT OFFICE DEVELOPER Inhaled Oxygen Concentration - - Weight 86.2 [...] Med and Rehab - [facility] [address] [place] [address] [place] [address] [place] [phone] Health Maintenance Due Date Last Done Comments [...] Completed 01/06/2024 Medical Devices Implanted Type Area Intellectual Property Legal Assistant Device Identifier Shelf Expiration Date Model / Serial / Lot Hemostatic Surgiflo 8ml W/ Thrombin 2994 - [id number] Implanted:Qt y: 1 on 03/13/2021 by Naresh Larios MD at [facility] Hemostatic N/A: Spine Cervical Anterior [employer] [id number] 06/09/2022 2994 / / [id number] Acp Plate 1.6 2 Level 38 Mm Implanted:Qt y: 1 on 03/13/2021 by Naresh Larios MD at [facility] Plate N/A: Spine Cervical Anterior [employer] [id number] / / 15 Mm Variable Screws Self Drilling Implanted:Qt y: 6 on 03/13/2021 by Naresh Larios MD at [facility] Screw N/A: Spine Cervical Anterior [employer] [id number] / / Description:All [employer]uv[employer] cer vical hardware was processed on requisition,[id number]. Allograft Triad Cc Cerv [id number] - [id number] Implanted:Qt y: 1 on 03/13/2021 by Naresh Larios MD at [facility] Tissue N/A: Spine Cervical Anterior [employer] 05/08/2025 [id number] / [id number] / Allograft Triad Cc Cerv [id number] - [id number] Implanted:Qt y: 1 on 03/13/2021 by Naresh Larios MD at [facility] Tissue N/A: Spine Cervical Anterior [employer] 06/20/2025 [id number] / [id number] / Insurance MEDICARE PART A AND B [employer] MEDICARE SUPP AESSI Advance Directives For more information, please contact: [phone] * Full Code (Latest Code Status on File) Date Activated Date Inactivated Comments 03/27/2021 10:47 PM 04/18/2021 3:52 PM * Full Code Date Activated Date Inactivated Comments 03/13/2021 6:27 PM 03/27/2021 10:45 PM * Full Code Date Activated Date Inactivated Comments 03/13/2021 1:16 PM 03/13/2021 6:27 PM * Full Code Date Activated Date Inactivated Comments 03/13/2021 10:32 AM 03/13/2021 1:16 PM Care Teams Mental Health Coordinator Relationship Specialty Start Date End Date Bhargav Wilkes MD [address] [phone] PCP - General Family Practice 05/07/22
--- OUTSIDE RECORDS SUMMARY | 2024-07-07 10:27 | XMS_ITS | Referral Summary ---
Author Organization [facility] Address [address] [place] [address] Care Team Providers Care Assembler Equipment Name Role Phone Bhargav Wilkes MD Primary Care Provider Be Rangel DO Unavailable [phone] Encounters Date Type Department Care Team Description 07/07/2024 Nurse Triage [facility] at [address] [address] Bhargav Wilkes MD 07/04/2024 7:48 PM CDT - 07/04/2024 11:59 PM CDT Hospital Encounter [address] [address] Need for hepatitis B screening test; Stage 3a chronic kidney disease (HCC); Primary hypertension Discharge Disposition: Discharge to home or self care 07/04/2024 1:[address] [facility] Outpatient Lab at [address] [address] Class 2 obesity with alveolar hypoventilation, serious comorbidity, and body mass index (BMI) of 38.0 to 38.9 in adult (HCC) (Primary Dx) 07/04/2024 Orders Only [facility] [address] [address] Bhargav Wilkes MD Left hand pain (Primary Dx) 07/04/2024 1:00 PM CDT Office Visit [facility] Primary Care at [address] [address] Bhargav Wilkes MD Medicare annual wellness visit, initial (Primary Dx); Disease of spinal cord, unspecified (HCC); Brown-Sequard syndrome (HCC); Class 2 obesity with alveolar hypoventilation, serious comorbidity, and body mass index (BMI) of 38.0 to 38.9 in adult (HCC); Stage 3a chronic kidney disease (HCC); Primary hypertension 06/02/2024 Telephone [facility] Surgery [address] [facility] Advanced Medicine 6th [place] [address] [place] [address] Jarad Couch MD 05/18/2024 Telephone [facility] [address] [address] Bhargav Wilkes MD Billing Question 05/11/2024 Telephone [facility] [address] [facility] Medical Office Building [address] [place] [address] Jarad Couch MD 05/02/2024 5:30 PM ELECTRIC TRUCKER - 05/02/2024 11:59 PM ELECTRIC TRUCKER Hospital Encounter [facility] Radiology [facility] ([facility]) [address] [place] [address] Discharge Disposition: Discharge to home or self care 05/02/2024 12:48 PM ELECTRIC TRUCKER - 05/02/2024 11:59 PM ELECTRIC TRUCKER Hospital Encounter [facility] [address] [facility] [address] [place] [address] Mary Mccall MD Lumbar radiculopathy Discharge Disposition: Discharge to home or self care 04/27/2024 Telephone Radiology - [address] Ortho [address] [facility] [address] [place] [address] Belinda Mauricio RT 04/27/2024 Orders Only [facility] at [address] [address] Jarad Couch MD Cervical spondylosis with radiculopathy; H/O spinal fusion 04/27/2024 Orders Only [facility] [address] [address] Bhargav Wilkes MD Adnexal mass 04/21/2024 Telephone [facility] at [address] [address] Bhargav Wilkes MD Medication Request 04/21/2024 Telephone [facility] at [address] [address] Bhargav Wilkes MD Medical Question/Miscellaneou s 04/20/2024 1:30 PM ELECTRIC TRUCKER Office Visit [facility] Orthopaedic [facility] Medical Office Building [address] [place] [address] Jarad Couch MD Cervical spondylosis with radiculopathy (Primary Dx); H/O spinal fusion; Lumbar radiculopathy 04/18/2024 8:37 PM ELECTRIC TRUCKER - 04/18/2024 11:59 PM ELECTRIC TRUCKER Hospital Encounter [facility] [address] [place] [address] Discharge Disposition: Discharge to home or self care 04/11/2024 Telephone [facility] at [address] [address] Bhargav Wilkes MD from Last [...] 1 tablet (40 mg total) by mouth senior maintenance machinist before breakfast 90 tablet 1 08/30/19 24 [...] months Assessment & Plan (04/15/2022 2:10 PM ELECTRIC TRUCKER): A(n) initial Medicare Annual Wellness Visit has [...] to ER Transport with daughter. Hailee preferred [facility]. Hyponatremia 04/15/2022 04/10/2024 Acute medial meniscus tear of right knee 01/06/2018 06/30/2023 Overview (01/06/2018): Added automatically from request for surgery [id number] Immunizations Immunization Administration Dates Next Due Influenza, [...] file Legal Sex Female 1:00 AM ELECTRIC TRUCKER Gender Identity Not on file Sexual Orientation [...] MR OUTSIDE REFERENCE Routine 05/02/2024 5:30 PM ELECTRIC TRUCKER TRANSFORAMINAL EPIDURAL INJECTION LUMBAR SACRAL 1 LEVEL RIGHT Schedule Routine, Read Routine (OP Routine) 05/02/2024 2:20 PM ELECTRIC TRUCKER Lumbar radiculopathy NEURO CT OUTSIDE REFERENCE Routine 04/18/2024 8:37 PM ELECTRIC TRUCKER HM DEXA SCAN Routine 01/06/2024 11:25 AM CDT STOOL DNA COLOGUARD Routine 07/09/2022 2:00 PM CDT Screen for colon cancer HEPATITIS C ANTIBODY Routine 04/15/2022 2:07 PM ELECTRIC TRUCKER Encounter for hepatitis C screening test for [...] MD LAB BLOOD ORDERABLES Final Result LELA [address] Department [place] [address] * Differential, auto (07/04/2024 12:00 [...] MD LAB BLOOD ORDERABLES Final Result LELA [address] [place] [address] * Thyroid Function Walsh (07/04/2024 12:00 PM CDT) TSH 1.56 0.30 - 4.20 mcIUnit/mL Blood 07/04/2024 12:0 0 PM CDT 07/04/2024 8:16 PM CDT Bhargav Wilkes MD LAB BLOOD ORDERABLES Final Result Performing Organization Address [facility] Co de Phone Number LELA ZEPEDA [address] [place] [address] * (ABNORMAL) Urinalysis reflex to microscopic and [...] tendency for uric acid stone formation. Source: [facility] [place] Current Interpretive Data was last revised on [...] - GENERAL ORDERABLES Final Result LELA ZEPEDA [address] [place] [address] * (ABNORMAL) CBC with auto differential (07/04/2024 12:00 PM CDT) WBC 5.4 3.8 - 9.9 K/cumm Hgb 13.5 11.9 - 15.5 g/dL [facility] Hct 43.2 35.6 - 45.5 % [facility] Plt 216 150 - 400 K/cumm [facility] MPV 10.2 9.1 - 12.3 fL [facility] RBC 4.60 3.90 - 5.20 M/cumm [facility] MCV 93.9 81.3 - 96.4 fL [facility] MCH 29.3 27.1 - 33.3 pg [facility] MCHC 31.3(L) 32.3 - 35.7 g/dL [facility] RDW CV 14.4 11.1 - 14.9 % [facility] RDW SD 50.0(H) 35.7 - 48.1 fL [facility] NRBC abs 0.00 0.00 - 0.01 K/cumm [facility] Blood 07/04/2024 12:0 0 PM CDT 07/04/2024 8:16 PM CDT Bhargav Wilkes MD LAB BLOOD ORDERABLES Final Result Performing Organization Address [facility]/ZIP Co de Phone Number LELA ZEPEDA [address] Department [address] [place], [place] [id number] * Hepatitis B core antibody, total Blood (07/04/2024 12:00 PM CDT) [facility] Hep B core IgG/IgM Nonreactive Nonreactive Comment:Testing performed by : [facility], [address] [place] [address]., [id number] Blood 07/04/2024 12:0 0 PM CDT 07/05/2024 9:43 AM CDT Bhargav Wilkes MD LAB MICROBIOLOGY - GENERAL ORDERABLES Final Result Performing Organization Address City/[facility]/ZIP Co de Phone Number LELA ZEPEDA [address] [address] [place] [address] * Vitamin D 25 hydroxy (07/04/2024 12:00 PM CDT) [facility] Vitamin D 25-OH 56 30 - 80 ng/mL Blood 07/04/2024 12:0 0 PM CDT 07/04/2024 8:16 PM CDT Bhargav Wilkes MD LAB BLOOD ORDERABLES Final Result Performing Organization Address [facility] Co fl Phone Number LELA [address] [address] Department [place] [address] * Hepatitis B surface antibody (immune status) Blood (07/04/2024 12:00 PM CDT) Pathologist [facility] HBsAb (immune status) Nonreactive Comment: Interpretive Data [...] GENERAL ORDERABLES Final Result Performing Organization Address [facility] Co de Phone Number LELA [address] [address] [facility] [place] [address] * Hepatitis B Surface Antigen Blood (07/04/2024 12:00 PM CDT) Pathologist [facility] HepBsAg Nonreactive Nonreactive Blood 07/04/2024 12:0 0 PM CDT 07/04/2024 8:16 PM CDT Bhargav Wilkes MD LAB MICROBIOLOGY - GENERAL ORDERABLES Final Result Performing Organization Address [facility] Co de Phone Number [facility] [place] [address] [address] [place] [address] * (ABNORMAL) Urinalysis, microscopic only (07/04/2024 12:00 PM CDT) WBC, ur 6-10(A) 0 - 5 /HPF RBC, ur 0-2 0 - 2 /HPF [facility] Epithelial cells, squamous, ur 6-10(A) 0 - 5 /HPF [facility] Bacteria, ur 1+(A) [facility] Mucous, ur Present(A) [facility] Culture Reflex Comment Reflex conditions for urine culture (WBC >10) not met. [facility] Urine 07/04/2024 12:0 0 PM CDT 07/04/2024 8:16 PM CDT us Bhargav Wilkes MD LAB URINE ORDERABLES Final Result [facility] [address] [address] [place] [address] * (ABNORMAL) Lipid panel (07/04/2024 12:00 PM [...] LAB [place] [address] [address] [place] [address] * Comprehensive metabolic panel (07/04/2024 12:00 PM [...] PM CDT 07/04/2024 8:16 PM CDT Result [facility] Bhargav Wilkes MD LAB BLOOD ORDERABLES Final Result Performing Organization Address [facility] Phone Number LELA ZEPEDA [address] [place] [address] * Neuro MR Outside Reference (05/02/2024 5:30 PM ELECTRIC TRUCKER) Impressions RAD_PACS_BJ - 05/02/2024 5:30 PM ELECTRIC TRUCKER These images are for Reference purposes only and have not been reviewed by [facility]. There will be no report generated by a [facility] Radiologist. Narrative RAD_PACS_BJ - 05/02/2024 5:30 PM ELECTRIC TRUCKER EXAMINATION: Images For Reference Purposes Only Result [facility] Jarad Couch MD IMG MRI PROCEDURE S Final Result Performing Organization Address [facility] de Phone Number RAD_PACS_[facility] * IR Transforaminal Epidural Injection Lumbar Sacral 1 Level Right (05/02/2024 2:20 PM ELECTRIC TRUCKER) Narrative RAD_PACS_[facility] - 05/02/2024 2:20 PM ELECTRIC TRUCKER The images from this study are not interpreted by Radiology. Please refer to the physician's procedure / OR operative note. Jarad Couch MD IMG IR PROCEDURES Final Result Performing Organization Address [facility] de Phone Number RAD_PACS_BJWCH * Neuro CT Outside Reference (04/18/2024 8:37 PM ELECTRIC TRUCKER) Impressions RAD_PACS_BJ - 04/18/2024 8:37 PM ELECTRIC TRUCKER These images are for Reference purposes only and have not been reviewed by [facility]iology. There will be no report generated by a [facility] Radiologist. Narrative RAD_PACS_BJ - 04/18/2024 8:37 PM ELECTRIC TRUCKER EXAMINATION: Images For Reference Purposes Only Jarad Couch MD IMG CT PROCEDURES Final Result RAD_PACS_[facility] * HM DEXA SCAN (01/06/2024 11:25 AM CDT) Historical Provider HEALTH MAINTENANCE Final Result * Stool DNA - Cologuard (07/09/2022 2:00 PM CDT) Stool DNA - Cologuard Negative Negative [employer] (CLIA #:[id number]) Comment: NEGATIVE TEST RESULT. A negative Cologuard [...] (Elizabeth Saavedra al, N Engl J Med 2014;370(14):9518-3347) The normal value (reference range) for this assay is negative. COLOGUARD RE-SCREENING RECOMMENDATION: Periodic colorectal cancer screening is an important part of preventive healthcare for asymptomatic individuals at average risk for colorectal cancer. Following a negative Cologuard result, the [place] Cancer Society and U.S. Multi-Society Task Force screening guidelines recommend a Cologuard re-screening interval of 3 years. References: [place] Cancer Society Guideline for Colorectal Cancer Screening: https://www.cancer.org/cancer/ufsdz-elhnkz-crnssm/tleelrckj-scgxsklgo-sipfvri/ac s-rec ommendations.html.; Carlo DONOHUE, Channing GREEN, Mirtha GASPAR, Colorectal Cancer Screening: Recommendations for Physicians and Patients from the U.S. Multi-Society Task Force on Colorectal Cancer Screening , Am J Gastroenterology 2017; 112:3550-0329. TEST DESCRIPTION: Composite algorithmic analysis of stool [...] Vargas et al, N Engl J Med 2014;370(14):8861-8415.) Cologuard may produce a false negative or false positive result (no colorectal cancer or precancerous polyp present at colonoscopy follow up). A negative Cologuard test result does not guarantee the absence of CRC or advanced adenoma (pre-cancer). The current Cologuard screening interval is every 3 years. ([place] Cancer Society and U.S. Multi-Society Task Force). Cologuard performance data in a 10,000 patient pivotal study using colonoscopy as the reference method can be accessed at the following location: www.[employer]/results. Additional description of the Cologuard test process, warnings and precautions can be found at www.[employer] Technologies[employer].com. Stool 07/09/2022 2:00 PM CDT 07/10/2022 3:33 PM CDT us Bhargav Wilkes MD LAB BODY FLUIDS AND STOOLS ORDERABLES Final Result [employer] (CLIA #:[id number]) Nai [address] [address] * Hepatitis C antibody (04/15/2022 2:07 PM ELECTRIC TRUCKER) Hep C Ab Nonreactive Nonreactive LELA ZEPEDA [...] revised on 2019. Blood 04/15/2022 2:07 PM ELECTRIC TRUCKER 04/15/2022 8:10 PM ELECTRIC TRUCKER Bhargav Wilkes MD LAB MICROBIOLOGY - GENERAL ORDERABLES Final Result Performing Organization Address City/State/ZIP Co fl Phone Number LELA [address] [address] Department [place] [address] * Screening Mammogram (01/29/2022) Anatomical Region Laterality Modality Breast N/A Mammography Narrative 01/29/2022 No malignancy Historical Provider IMG MAMMO PROCEDURES Maura l Result from Last 3 Months or Most Recently Relevant to Health Maintenance Insurance MEDICARE [employer] SENIOR SUPPLEMENT MEDICARE [facility] SENIOR SUPPLEMENT Care Teams Assembler Equipment Relationship Specialty Start Date End Date Bhargav Wilkes MD [address] [place] [address] PCP - General Family Medicine 04/15/22 [place] [address] [place] [address] Referring Physician Physical Medicine and Rehabilitation 12/30/22
--- OUTSIDE RECORDS SUMMARY | 2024-07-07 10:27 | XMS_ITS | Clinical Summary ---
Author Organization [facility] Address [address] [place] [address] Phone Care Team Providers Care Cardio Clinician Name Role Phone Bhargav Wilkes MD Primary Care Provider [phone] Family History Medical History Relation Name Comments [...] CAD W SMITH Routine 03/29/2024 1:04 PM RODEO CLOWN Encounter for screening mammogram for breast cancer from Last 3 Months or Most Recently Relevant to Health Maintenance Results * ERVIN SCREENING BILATERAL DIGITAL W CAD W SMITH (03/29/2024 1:04 PM RODEO CLOWN) Anatomical Region Laterality Modality breast Bilateral Mammography 03/29/2024 1:03 PM RODEO CLOWN Narrative 03/30/2024 10:01 AM RODEO CLOWN - ERVIN SCREENING BILATERAL DIGITAL W CAD [...] exams dated: 11/06/2020, 09/28/2019, and 03/25/2018 [facility]. BREAST TISSUE:The breasts are heterogeneously dense, [...] exam. Electronically signed by: Ian webber/penrad:03/29/2024 16:29:25 Rehabilitation Assistant(s): RT Mikhail(R)(M), [facility] letter sent: Normal Exam Reading location: [place] [...] exams dated: 11/06/2020, 09/28/2019, and 03/25/2018 [facility]. BREAST TISSUE:The breasts are heterogeneously dense, which [...] exam. Electronically signed by: Ian webber/penrad:03/29/2024 16:29:25 Rehabilitation Assistant(s): RT Mikhail(R)(M), [facility] letter sent: Normal Exam Reading location: [place] Mammogram BI-RADS: Category 1: Negative Bhargav Wilkes MD IMG MAMMO ORDERABLES Final R esult from Last 3 Months or Most Recently Relevant to Health Maintenance Insurance MEDICARE [facility] Care Teams Cardio Clinician Relationship Specialty Start Date End Date Bhargav Wilkes MD [address] [place] [address] PCP - General Family Medicine 12/30/23
--- OUTSIDE RECORDS SUMMARY | 2024-07-07 10:27 | XMS_ITS | Clinical Summary ---
Author Organization [facility] Address [address] [place] [address] Care Team Providers Care Building Wrecker Name Role Phone Unavailable Primary Care Provider Unavailabl e Source Comments [facility],non-owned Affiliates and Associated Physician Practices is amultiple site organization consisting of ambulatory clinics and hospital sitesin [place], [place], [place] and [place]. This disclosure is being madepursuant to the Care Everywhere program and may not contain all information available regarding this patient. Last updated 17.[employer] Allergies Active Allergy Reactions Criticality Noted Date [...] mutation is less than 3 %. 06/05/2019 [facility] [employer] CDX BRCA with reflex to [facility] [employer] Antonette sent on patient's sister Abril Syed (06/[birth year]/46) (judit): BRCA neg, panel negative. VHT panel genetic testing after 06/01/2018 includes: APC, [...] 70s Cancer - Breast Sister Abril Syed [employer] [employer] MyR isk neg. [place] pt Relation Name [...] Tanner Personal/Family Self 1955 [address] [address]
--- OUTSIDE RECORDS SUMMARY | 2024-07-07 10:27 | XMS_ITS | Encounter Summary ---
Author Organization [facility] Address [address] [place] [address] Phone Care Team Providers Care Surveillance Monitor Name Role Phone Bhargav Wilkes MD Primary Care Provider [phone] Be Rangel DO Unavailable Encounter Details Date Type Department Care Team [...] on file Legal Sex Female 1:00 AM MINING ANALYST Gender Identity Not on file Sexual Orientation Not on file documented as of this encounter Plan of Treatment Not on file documented as of this encounter Procedures Procedure Name Priority Date/Time Associated Diagnosis Comments SCAN - RADIOLOGY/IMAGING 02/28/2024 9:36 AM MINING ANALYST documented in this encounter Results * SCAN - RADIOLOGY/IMAGING (02/28/2024 9:36 AM MINING ANALYST) Anatomical Region Laterality Modality Other us Provider Scanning Final Result documented in this encounter Visit Diagnoses Not on filedocumented in this encounter Care Teams Surveillance Monitor Relationship Specialty Start Date End Date Bhargav Wilkes MD [address] [place] [address] PCP - General Family Medicine 04/15/22 [place] [address] [place] [address] Referring Physician Physical Medicine and Rehabilitation 12/30/22 documented as of this encounter
--- OUTSIDE RECORDS SUMMARY | 2024-07-07 10:27 | XMS_ITS | Encounter Summary ---
Author Organization [facility] Healthcare Address [address] [place] [address] Care Team Providers Care Wash House Supervisor Name Role Phone Bhargav Wilkes MD Primary Care Provider ClifflawandaBe DO Unavailable [phone] Reason for Visit * Reason Onset Date Comments Hypertension 07/07/2024 Encounter Details Date Type Department Care Team (Late st Contact Info) Description 07/07/2024 Nurse Triage [facility] Medical Group Primary Care at [address] [address] Bhargav Wilkes MD [address] [place] [address] [address] [place] [address] Social History Tobacco Use Types [...] on file Legal Sex Female 1:00 AM 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 Advised patient to have wheelchair van driver, nothing to eat or drink, and take medication list. Hailee Tannerverbalizes understanding. Heading to [facility]. FYI Advised patient to call back after ED visit if f/u care is needed Bhargav Wilkes MD.. Hailee Sesay verbalizes understanding. Reason for Disposition Systolic BP >= 160 OR Diastolic >= 100, and any cardiac (e.g., breathing difficulty, chest pain) or neurologic symptoms (e.g., new-onset blurred or double vision) Protocols used: Blood Pressure - Cgfo-Lebwd-LW * Telephone Encounter - Luz Willis RN [...] on filedocumented in this encounter Care Teams Wash House Supervisor Relationship Specialty Start Date End Date Bhargav Wilkes MD [address] [place] [address] PCP - General Family Medicine 04/15/22 [place] [address] [place] [address] Referring Physician Physical Medicine and Rehabilitation 12/30/22 documented as of this encounter
--- OUTSIDE RECORDS SUMMARY | 2024-07-07 10:27 | XMS_ITS | Continuity of Care Document ---
Author Organization [facility] Address [address] [place] [address] [place] [address] Phone Care Team Providers Care Still Runner Name Role Phone Isaak Davis MD Unavailable Unavailable Procedures Procedure Date Office/outpatient Visit, [facility] Advance Directives Directive Yes / No Effective Date File Name No Information Encounters Encounter Description Practice Location Reason(s) For Visit Diagnoses Date Provider Providers Copied on Encounter Office/outpat ient Visit, [facility], [address] [place] [address] [address], [place], [place], [id number], [place] tel:[phone] SEC Scott [place] Professional No Information 6-[address] Susan Mulligan. [address] [facility] [address], [place], [place], [id number], [place]. tel:[phone] Family History Family Member Type Diagnosis Age At Onset No Information Payers Payer name Insurance type Covered green party ID Authoriza tinova(s) [facility] CI [id number] Social History Type Description Quantity Date Captured [...]
[2024-07-07 10:57] VITALS: BP 130/90; PULSE 75; RESP 15; O2SAT 97
[2024-07-07 10:57] LABS: Troponin I < 0.012 ng/mL (0.000-0.034)
[2024-07-07] MEDS: ACETAMINOPHEN 500 MG TABLET 1000 MG PO (11:11)
[2024-07-07] MEDS: KETOROLAC 15 MG/ML VIAL (*BKC) IV PUSH (11:12)
[2024-07-07] MEDS: diphenhydrAMINE HCl INJ 50 MG/ML VIAL 25 MG IV PUSH (11:12)
[2024-07-07] MEDS: METOCLOPRAMIDE HCL INJ 10 MG/2 ML VIAL IV PUSH (11:13)
[2024-07-07] MEDS: SODIUM CHLORIDE 0.9% IV 1,000 ML 999 ML IV CONT (11:13)
[2024-07-07 12:30] VITALS: BP 150/86; PULSE 70; RESP 12; O2SAT 98
[2024-07-07] MEDS: MAGNESIUM SULF 1 GM/D5W 100 ML 1 GM/100 ML BAG IVPB (13:26)
[2024-07-07] MEDS: hydroCHLOROthiazide 12.5 MG CAPSULE PO (13:27)
[2024-07-07 13:31] VITALS: BP 175/80; PULSE 83; RESP 16; O2SAT 98
== END 2024-07-07 14:59 | disposition home or self-care (01) ==
PROVIDERS: Emergency Provider Physician Assistant
DX: I10 Essential (primary) hypertension (principal); R51.9 Headache, unspecified; I12.9 Hypertensive chronic kidney disease with stage 1 through stage 4 chronic kidney disease, or unspecified chronic kidney disease; N18.30 Chronic kidney disease, stage 3 unspecified; Z87.891 Personal history of nicotine dependence
CPT/HCPCS: 36415; 70450; 84484; 93005; 96361; 96365; 96375; 99284; A9270; J1200; J1885; J2765; J3475; J7030